=== PATIENT | female | born 1985 | race Hispanic/Latino ===

== ENCOUNTER 2019-08-31 06:23 | Emergency (ER) | payer OTHER, SELFPAY ==
[2019-08-31 06:28] VITALS: BP 148/97; PULSE 100; RESP 20; TEMP 36.9; O2SAT 98
[2019-08-31 06:36] VITALS: BP 158/99; PULSE 101; RESP 20; TEMP 36.9; O2SAT 96
[2019-08-31 06:58] VITALS: RESP 18; O2SAT 98
--- NOTE | 2019-08-31 07:07 | PC.NURSE ---
Hand off report given to KILLIAN Bob.
--- NOTE | 2019-08-31 07:21 | ED.GENADULT ---
HPI - General Adult General Chief complaint: Recheck/Abnormal Lab/Rx Stated complaint: Dizzy, low blood count Time Seen by Provider: 08/31/19 07:02 Source: patient Mode of arrival: ambulatory Limitations: no limitations History of Present Illness HPI narrative: This patient is a 33 year old female who presents with c/o dizziness with vomiting. Patient report this morning she started feeling dizzy as if she was going to pass out, and then she had 2 episodes of vomiting. These symptoms make patient believe that she may be anemic. She still has dizziness with standing. She denies hematemesis, epistaxis or bloody stools. She does note that her stools are dark but she takes iron. She has abdominal pain but this is chronic per patient. She denies fever or chills as well. Onset (ago): day(s) Related Data Home Medications Medication Instructions Recorded Confirmed albuterol sulfate 2 puff INHALATION QID PRN 08/31/19 baclofen 10 mg PO TID PRN 08/31/19 beclomethasone dipropionate [Qvar 1 inh INHALATION Q12H 08/31/19 RediHaler] bupropion HCl [Wellbutrin SR] 150 mg PO DAILY 08/31/19 dicyclomine 20 mg PO TID 08/31/19 diphenhydramine HCl [Benadryl 50 mg PO HS 08/31/19 Allergy] ferrous sulfate 325 mg PO DAILY 08/31/19 gabapentin 600 mg PO TID 08/31/19 ibuprofen 800 mg PO TID 08/31/19 insulin glargine [Basaglar KwikPen 65 unit SUBCUT BID 08/31/19 U-100 Insulin] loratadine 10 mg PO DAILY 08/31/19 metformin 1,000 mg PO BID 08/31/19 montelukast [Singulair] 10 mg PO DAILY 08/31/19 omeprazole 20 mg PO BID 08/31/19 sertraline 200 mg PO DAILY 08/31/19 simvastatin 20 mg PO DAILY 08/31/19 trazodone 50 mg PO HS 08/31/19 Allergies Allergy/AdvReac Type Severity Reaction Status Date / Time clindamycin Allergy Unknown Unknown Verified 08/31/19 07:34 latex Allergy Unknown Unknown Verified 08/31/19 07:34 paroxetine Allergy Unknown Unknown Verified 08/31/19 07:34 Review of Systems Review of Systems: All systems reviewed & are unremarkable except as noted in HPI and below Constitutional: Constitutional: Denies chills and Denies fever(s) ENT: Reports dizziness and Denies epistaxis Cardiovascular: Cardiovascular: Denies chest pain Respiratory: Respiratory: Denies cough, Reports dyspnea and Denies wheezing Gastrointestinal: Gastrointestinal: Reports abdominal pain (chronic), Reports nausea and Reports vomiting Genitourinary: Genitourinary: Denies nocturia and Denies vaginal discharge Neurologic: Reports dizziness PMFSH Past Medical History Medical History (Updated 08/31/19 @ 11:02 by Cheryl Eden MD) Diabetes mellitus Hyperlipidemia Surgical History Surgical History (Updated 08/31/19 @ 07:24 by Cheryl Eden MD) History of cholecystectomy Hx of appendectomy Family History Family History (Updated 04/13/16 @ 14:57 by DOCTOR UNKNOWN) Other Diabetes mellitus Hypertension Social History Social History Smoking status: Former smoker Smoking end date: 03/21/12 Alcohol intake: never Gender identity (if verbalized by the patient): Female Exam Narrative: Exam Narrative: GENERAL: Well-appearing, well-nourished, and in no acute distress. HEAD: Normocephalic, atraumatic EYES: PERRLA and EOMI, conjunctiva clear without discharge THROAT:Mucous membranes moist, Oropharynx normal without erythema, exudate, peritonsillar swelling or fluctuance NECK: Supple, without lymphadenopathy or mass RESPIRATORY: No respiratory distress, Airway patent, Respirations non-labored, Clear to auscultation without rales, rhonchi or wheeze HEART: Regular rate and rhythm. No murmur heard. Normal peripheral pulses. ABDOMEN: Soft,Diffuse tenderness, nondistended, normal active bowel sounds. No masses. No rebound or guarding, No organomegaly. EXTREMITIES: No edema, normal strength with full range of motion. SKIN: Warm, dry, normal color without rash NEURO: Alert and oriented x3. CN 2-12 grossly
[2019-08-31] MEDS: PANTOPRAZOLE SODIUM IV 40 MG VIAL IV PUSH (07:25)
[2019-08-31] MEDS: ONDANSETRON INJ 4 MG/2 ML VIAL IV PUSH ×2 (07:25→09:06)
[2019-08-31 07:28] VITALS: BP 141/96; PULSE 96
[2019-08-31 07:29] VITALS: BP 139/90; PULSE 97
[2019-08-31 07:30] VITALS: BP 129/87; PULSE 103
[2019-08-31 07:34] LABS: Basophils Percent Auto 0.3 % (0.2-1.2); Eosinophils Absolute Auto 0.2 K/mm3 (0-0.3); Eosinophils Percent Auto 1.8 % (0-4.4); Hematocrit 40.8 % (37.0-47.0); Hemoglobin 12.9 g/dL (12.0-15.0); Immature Granulocyte Absolute 0.03 K/mm3 (0.00-0.031); Immature Granulocyte Percent A 0.3 % (0-0.5); Lymphocytes Absolute Auto 2.01 K/mm3 (0.9-3.2); Lymphocytes Percent Auto 22.3 % (18.3-44.2); Mean Corpuscular HGB Conc 31.6 g/dl (32-36); Mean Corpuscular Hemoglobin 30.3 pg (26-34); Mean Corpuscular Volume 95.8 fl (80-100); Mean Platelet Volume 10.8 fl (7.4-10.4); Monocytes Absolute Auto 0.9 K/mm3 (0.1-0.6); Monocytes Percent Auto 9.7 % (2.6-8.5); Neutrophils Absolute Auto 5.9 K/mm3 (1.3-6.7); Neutrophils Percent Auto 65.6 % (45.5-73.1); Platelet Count Result 216 k/mm3 (150-375); Red Blood Count 4.26 M/mm3 (4.2-5.4); Red Cell Distribution Width 13.5 % (11.5-14.5)
[2019-08-31 07:41] LABS: Glucose Point of Care 88 (65-105)
[2019-08-31 07:41] LABS: Add Urine Microscopic? YES; Appearance Urine Clear (Clear); Bacteria Urine Trace /hpf; Bilirubin Urine Negative (Negative); Blood Urine 1+ (Negative); Color Urine Yellow (Yellow); Glucose Urine UA 1+ mg/dL (Negative); Ketones Urine Negative (Negative); Leukocyte Esterase Ur Negative LEU/UL (Negative); Mucus Urine Few /lpf; Nitrate Urine Negative (Negative); Protein Urine 1+ mg/dL (Negative); RBC Urine 0-2 /hpf (0-2); Specific Grav Ur 1.017 (1.001-1.035); Squamous Epithelial Cell Urine Many /hpf (Few); WBC Urine 0-3 /hpf
[2019-08-31 07:45] LABS: Alanine Aminotransferase 47 U/L (4-35); Albumin Level 4.1 g/dL (3.5-5.1); Alkaline Phosphatase 162 U/L (38-126); Aspartate Amino Transferase 110 U/L (14-36); Blood Urea Nitrogen 12 mg/dL (7-17); Calcium 9.1 mg/dL (8.4-10.2); Carbon Dioxide 25 mmol/L (22-30); Chloride 108 mmol/L (98-107); Estimated Glomerular Filt Rate > 60; Glucose 112 mg/dL (65-105); Lipase 49 U/L (23-300); Magnesium 1.7 mg/dL (1.6-2.3); Phosphorus 4.3 mg/dL (2.5-4.5); Potassium 3.8 mmol/L (3.4-5.0); Sodium 141 mmol/L (137-145)
[2019-08-31 08:51] LABS: Beta-Hydroxybutyrate/Acetoacetate 0.06 mmol/L (0.02-0.27)
[2019-08-31] MEDS: LACTATED RINGERS 1,000 ML 999 ML IV CONT (09:06)
== END 2019-08-31 11:30 | disposition home or self-care (01) ==
PROVIDERS: Emergency Provider General Practice
DX: R11.2 Nausea with vomiting, unspecified (principal); E11.9 Type 2 diabetes mellitus without complications; E78.5 Hyperlipidemia, unspecified; Z87.891 Personal history of nicotine dependence; Z79.4 Long term (current) use of insulin
CPT/HCPCS: 36415; 80053; 81001; 81025; 82010; 82948; 83690; 83735; 84100; 85025; 96361; 96374; 96375; 99284; C9113; J2405; J7120

== ENCOUNTER 2019-12-03 14:26 | Emergency (ER) | payer OTHER, SELFPAY ==
[2019-12-03 14:35] VITALS: BP 132/87; PULSE 108; RESP 20; TEMP 36.9; O2SAT 100
[2019-12-03 14:55] LABS: Basophils Percent Auto 0.3 % (0.2-1.2); Eosinophils Absolute Auto 0.2 K/mm3 (0-0.3); Eosinophils Percent Auto 1.5 % (0-4.4); Hematocrit 37.8 % (37.0-47.0); Hemoglobin 12.3 g/dL (12.0-15.0); Immature Granulocyte Absolute 0.03 K/mm3 (0.00-0.031); Immature Granulocyte Percent A 0.3 % (0-0.5); Lymphocytes Percent Auto 27.7 % (18.3-44.2); Mean Corpuscular HGB Conc 32.5 g/dl (32-36); Mean Corpuscular Hemoglobin 30.1 pg (26-34); Mean Corpuscular Volume 92.6 fl (80-100); Monocytes Absolute Auto 0.6 K/mm3 (0.1-0.6); Neutrophils Absolute Auto 6.5 K/mm3 (1.3-6.7); Neutrophils Percent Auto 64.2 % (45.5-73.1); Platelet Count Result 111 k/mm3 (150-375); Red Blood Count 4.08 M/mm3 (4.2-5.4); Red Cell Distribution Width 12.7 % (11.5-14.5); White Blood Count 10.1 K/mm3 (4.5-10.0)
[2019-12-03 15:13] LABS: Potassium 4.3 mmol/L (3.4-5.0)
[2019-12-03 15:18] LABS: Alanine Aminotransferase 31 U/L (4-35); Albumin Level 3.5 g/dL (3.5-5.1); Alkaline Phosphatase 154 U/L (38-126); Anion Gap 8 mmol/L (8-16); Aspartate Amino Transferase 64 U/L (14-36); Bilirubin,Total 1.8 mg/dL (0.2-1.3); Blood Urea Nitrogen 9 mg/dL (7-17); Calcium 8.9 mg/dL (8.4-10.2); Carbon Dioxide 24 mmol/L (22-30); Chloride 103 mmol/L (98-107); Estimated CRCL calculation 113 ml/min; Estimated Glomerular Filt Rate > 60; Glucose 448 mg/dL (65-105); Lipase 41 U/L (23-300); Sodium 135 mmol/L (137-145)
== END 2019-12-03 15:00 | disposition left against medical advice (07) ==
PROVIDERS: Emergency Provider Emergency Medicine
DX: O26.899 Other specified pregnancy related conditions, unspecified trimester (principal); R10.9 Unspecified abdominal pain; Z3A.00 Weeks of gestation of pregnancy not specified
CPT/HCPCS: 36415; 80053; 83690; 85025; 99199

== ENCOUNTER 2019-12-08 13:08 | Emergency (ER) | payer OTHER, SELFPAY ==
--- NOTE | ~2019-12-08 | CT_ITS ---
EXAMINATION: CT abdomen pelvis wo con DATE: 12/08/2019 14:49 INDICATION: Right flank pain. TECHNIQUE: Computed tomography (CT) of the abdomen and pelvis was performed without intravenous contr ast. Automated exposure control and iterative reconstruction technique were employed. The dose-length product was 1007.56 mGy-cm. COMPARISON: CT abdomen and pelvis 12/08/2017 FINDINGS: The visualized portions of the lung bases demonstrate minimal atelectasis. No pleural effus ion. The heart size is normal. No pericardial effusion. The liver demonstrates surface nodularity, co nsistent with cirrhosis. There are changes of cholecystectomy. There is mild splenomegaly measuring 1 5.8 cm. There is a paraumbilical portacaval shunt. The pancreas, adrenal glands, and kidneys are norm al. There is no urolithiasis. There is a 4.2 cm cyst in right adnexa, likely a follicular cyst. There are no dilated loops of bowel. There are changes of appendectomy. There is mild periportal lymphaden opathy, likely reactive. There is trace ascites. There is mild thoracolumbar spondylosis. IMPRESSION: 1. Cirrhosis of the liver with portal venous hypertension. 2. Mild periportal lymphadenopathy, likely reactive. Reviewed, dictated and finalized at location A.
[2019-12-08 13:09] VITALS: BP 152/87; PULSE 99; RESP 20; TEMP 36.7; O2SAT 98
--- NOTE | 2019-12-08 13:32 | ED.ABDPAIN ---
HPI - Abdominal Pain General Chief Complaint: Abdominal Pain Stated Complaint: Right flank pain Time Seen by Provider: 12/08/19 13:18 Source: patient Mode of arrival: ambulatory Limitations: no limitations History of Present Illness HPI narrative: Patient is a 34-year-old female who presents with abdominal discomfort localized to the right side of the abdomen that has been present for the last week patient at this time resting comfortably in the room in no distress upon arrival patient denies similar occurrence but does note history of cirrhosis has follow-up with hepatology at the middle of this month patient denies fever chills nausea vomiting notes that she has had some loose stools Related Data Home Medications Medication Instructions Recorded Confirmed albuterol sulfate 2 puff INHALATION QID PRN 08/31/19 baclofen 10 mg PO TID PRN 08/31/19 beclomethasone dipropionate [Qvar 1 inh INHALATION Q12H 08/31/19 RediHaler] bupropion HCl [Wellbutrin SR] 150 mg PO DAILY 08/31/19 dicyclomine 20 mg PO TID 08/31/19 diphenhydramine HCl [Benadryl 50 mg PO HS 08/31/19 Allergy] ferrous sulfate 325 mg PO DAILY 08/31/19 gabapentin 600 mg PO TID 08/31/19 ibuprofen 800 mg PO TID 08/31/19 insulin glargine [Basaglar KwikPen 65 unit SUBCUT BID 08/31/19 U-100 Insulin] loratadine 10 mg PO DAILY 08/31/19 metformin 1,000 mg PO BID 08/31/19 montelukast [Singulair] 10 mg PO DAILY 08/31/19 omeprazole 20 mg PO BID 08/31/19 sertraline 200 mg PO DAILY 08/31/19 simvastatin 20 mg PO DAILY 08/31/19 trazodone 50 mg PO HS 08/31/19 Allergies Allergy/AdvReac Type Severity Reaction Status Date / Time clindamycin Allergy Unknown Unknown Verified 08/31/19 07:34 latex Allergy Unknown Unknown Verified 08/31/19 07:34 paroxetine Allergy Unknown Unknown Verified 08/31/19 07:34 Review of Systems Review of Systems: All systems reviewed & are unremarkable except as noted in HPI and below PMFSH Past Medical History Medical History (Updated 12/08/19 @ 15:33 by Kwesi Shea PA-C) Cirrhosis Diabetes mellitus Fatty liver Hyperlipidemia Surgical History Surgical History History of cholecystectomy Hx of appendectomy Family History Family History (Updated 04/13/16 @ 14:57 by DOCTOR UNKNOWN) Other Diabetes mellitus Hypertension Social History Social History Smoking status: Former smoker Smoking end date: 03/21/12 Alcohol intake: never Gender identity (if verbalized by the patient): Female Exam Narrative: Exam Narrative: GENERAL: Well-appearing, well-nourished, and in no acute distress. HEAD: Normocephalic, atraumatic. EYES: PERRLA and EOMI. ENT: Nares clear, no rhinorrhea or epistaxis. Mucous membranes moist. CHEST: Clear to auscultation. No respiratory distress. No wheezes rales or rhonchi HEART: Regular rate and rhythm. No murmur heard. Normal peripheral pulses. ABDOMEN: Soft, lower abdominal tenderness without rebound or guarding, distended, normal active bowel sounds. EXTREMITIES: Normal range of motion. No edema. SKIN: Warm, dry, no rash. NEURO: No focal deficits. Alert and oriented x3. Cranial nerves II through XII grossly intact PSYCH: Normal mood and affect. Course Course Emergency Course: Patient in the room in no distress aware of case findings treatment plan and diagnosis agreeing to follow-up as directed or to return if symptoms worsen or concerns patient will be treated for urinary tract infection following up with primary care no other high risk changes in the blood work or imaging felt appropriate for outpatient reevaluation was given fluids and antibiotics Vital Signs Vital signs: Vital Signs Temperature 98.1 F 12/08/19 13:09 Pulse Rate 99 12/08/19 13:09 Respiratory Rate 20 12/08/19 13:09 Blood Pressure 152/87 H 12/08/19 13:09 Pulse Oximetry 98 12/08/19 13:
[2019-12-08] MEDS: SODIUM CHLORIDE 0.9% IV 500 ML 999 ML IV CONT (13:48)
[2019-12-08] MEDS: FAMOTIDINE 20 MG/2 ML VIAL IV PUSH (13:49)
[2019-12-08 14:03] LABS: Basophils Percent Auto 0.4 % (0.2-1.2); Eosinophils Absolute Auto 0.1 K/mm3 (0-0.3); Eosinophils Percent Auto 1.4 % (0-4.4); Hematocrit 37.6 % (37.0-47.0); Hemoglobin 12.6 g/dL (12.0-15.0); Immature Granulocyte Absolute 0.03 K/mm3 (0.00-0.031); Immature Granulocyte Percent A 0.3 % (0-0.5); Immature Platelet Fraction Pct 3.4 % (0.9-11.2); Lymphocytes Absolute Auto 2.27 K/mm3 (0.9-3.2); Lymphocytes Percent Auto 23.3 % (18.3-44.2); Mean Corpuscular HGB Conc 33.5 g/dl (32-36); Mean Corpuscular Hemoglobin 31.3 pg (26-34); Mean Corpuscular Volume 93.3 fl (80-100); Mean Platelet Volume 11.3 fl (7.4-10.4); Monocytes Absolute Auto 0.6 K/mm3 (0.1-0.6); Monocytes Percent Auto 6.1 % (2.6-8.5); Neutrophils Absolute Auto 6.7 K/mm3 (1.3-6.7); Neutrophils Percent Auto 68.5 % (45.5-73.1); Platelet Count Result 110 k/mm3 (150-375); Red Blood Count 4.03 M/mm3 (4.2-5.4); Red Cell Distribution Width 12.9 % (11.5-14.5); White Blood Count 9.7 K/mm3 (4.5-10.0)
[2019-12-08 14:07] LABS: Add Urine Microscopic? YES; Appearance Urine Cloudy (Clear); Bacteria Urine 4+ /hpf; Bilirubin Urine 1+ (Negative); Blood Urine 2+ (Negative); Color Urine Amber (Yellow); Glucose Urine UA 1+ mg/dL (Negative); Ketones Urine Negative (Negative); Leukocyte Esterase Ur Negative LEU/UL (Negative); Mucus Urine Heavy /lpf; Nitrate Urine Negative (Negative); Protein Urine 2+ mg/dL (Negative); Squamous Epithelial Cell Urine Many /hpf (Few); WBC Urine 21-30 /hpf
[2019-12-08 14:08] LABS: Specific Grav Ur 1.032 (1.001-1.035)
[2019-12-08 14:11] LABS: Alanine Aminotransferase 26 U/L (4-35); Albumin Level 3.5 g/dL (3.5-5.1); Alkaline Phosphatase 127 U/L (38-126); Anion Gap 5 mmol/L (8-16); Aspartate Amino Transferase 58 U/L (14-36); Bilirubin,Total 1.3 mg/dL (0.2-1.3); Blood Urea Nitrogen 11 mg/dL (7-17); Calcium 8.8 mg/dL (8.4-10.2); Carbon Dioxide 26 mmol/L (22-30); Chloride 106 mmol/L (98-107); Estimated CRCL calculation 145 ml/min; Estimated Glomerular Filt Rate > 60; Glucose 196 mg/dL (65-105); Lipase 29 U/L (23-300); Sodium 137 mmol/L (137-145)
[2019-12-08] MEDS: HYOSCYAMINE SULFATE 0.125 MG TABLET PO (14:26)
[2019-12-08 15:44] VITALS: BP 128/80; PULSE 80; RESP 18; TEMP 36.6; O2SAT 99
== END 2019-12-08 15:48 | disposition home or self-care (01) ==
PROVIDERS: Emergency Medicine Emergency Medical Services; Emergency Provider Emergency Medicine
DX: N39.0 Urinary tract infection, site not specified (principal); K74.60 Unspecified cirrhosis of liver; K76.6 Portal hypertension; E11.9 Type 2 diabetes mellitus without complications; E78.5 Hyperlipidemia, unspecified; Z87.891 Personal history of nicotine dependence; Z79.4 Long term (current) use of insulin
CPT/HCPCS: 36415; 74176; 80053; 81001; 81025; 83690; 85025; 85055; 87086; 87088; 96361; 96365; 96375; 99284; A9270; J0696; J7040

== ENCOUNTER 2019-12-31 15:38 | Observation (INO) | payer OTHER, SELFPAY ==
--- NOTE | ~2019-12-31 | CT_ITS ---
EXAMINATION: CT abdomen pelvis w con EXAM DATE: 12/31/2019 17:15 INDICATION: Right-sided abdominal pain. TECHNIQUE: Spiral CT of the abdomen and pelvis was performed following intravenous injection of 100 m L Omnipaque 350. Axial, coronal and sagittal images were reviewed. The dose-length product (DLP) fo r this examination was 1645.19 mGy-cm. The exposure was tailored according to patient size (auto mA exposure control), and iterative reconstruction (ASIR) was used as additional dose reduction techniqu e. Comparison is made to prior examination from 12/08/2019. FINDINGS: There is retroperitoneal and mesenteric nonspecific fat stranding, more pronounced than on previous examination. Possible acute pancreatitis. Recanalized umbilical vein. There is cirrhosis an d portal hypertension with splenomegaly, spleen measuring 17 cm in diameter. Small amount of perisple ivania and perihepatic ascites. Small amount of free pelvic fluid. There are cholecystectomy clips. Portal and splenic veins are patent. Kidneys enhance symmetrically . There is no hydronephrosis. Uterus is anteverted. Again there is a 4 cm right adnexal cyst. The b ladder is unremarkable. There is no retroperitoneal or pelvic lymphadenopathy. The appendix is not positively visualized. There is no pericecal inflammatory change to suggest appe ndicitis. The stomach and small bowel are unremarkable. There is expected amount of colonic stool. No free intraperitoneal gas. The heart is normal in size. There are no pericardial or pleural ef fusions. The lung bases are unremarkable. There are no osteoblastic or osteolytic lesions identifie d. IMPRESSION: 1. Development of retroperitoneal and generalized mesenteric fat stranding, small amount of ascites. Recommend checking amylase/lipase levels for possible acute pancreatitis. 2. Cirrhosis, portal hypertension, splenomegaly. Reviewed, dictated and finalized at location A. IMPRESSION: 1. Development of retroperitoneal and generalized mesenteric fat stranding, sm all amount of ascites. Recommend checking amylase/lipase levels for possible ac [place] pancreatitis. 2. Cirrhosis, portal hypertension, splenomegaly.
[2019-12-31 15:44] VITALS: BP 159/119; PULSE 95; RESP 22; TEMP 36.9; O2SAT 95
[2019-12-31 16:00] LABS: Basophils Percent Auto 0.3 % (0.2-1.2); Eosinophils Absolute Auto 0.2 K/mm3 (0-0.3); Eosinophils Percent Auto 2.2 % (0-4.4); Hematocrit 31.3 % (37.0-47.0); Hemoglobin 10.1 g/dL (12.0-15.0); Immature Granulocyte Absolute 0.02 K/mm3 (0.00-0.031); Immature Granulocyte Percent A 0.2 % (0-0.5); Lymphocytes Absolute Auto 2.84 K/mm3 (0.9-3.2); Lymphocytes Percent Auto 27.5 % (18.3-44.2); Mean Corpuscular HGB Conc 32.3 g/dl (32-36); Mean Corpuscular Hemoglobin 31.5 pg (26-34); Mean Corpuscular Volume 97.5 fl (80-100); Mean Platelet Volume 10.5 fl (7.4-10.4); Monocytes Absolute Auto 0.8 K/mm3 (0.1-0.6); Monocytes Percent Auto 7.6 % (2.6-8.5); Neutrophils Absolute Auto 6.4 K/mm3 (1.3-6.7); Neutrophils Percent Auto 62.2 % (45.5-73.1); Platelet Count Result 120 k/mm3 (150-375); Red Blood Count 3.21 M/mm3 (4.2-5.4); Red Cell Distribution Width 13.8 % (11.5-14.5); White Blood Count 10.3 K/mm3 (4.5-10.0)
[2019-12-31 16:12] LABS: Alanine Aminotransferase 20 U/L (4-35); Albumin Level 3.4 g/dL (3.5-5.1); Alkaline Phosphatase 142 U/L (38-126); Anion Gap 9 mmol/L (8-16); Aspartate Amino Transferase 55 U/L (14-36); Bilirubin,Total 0.9 mg/dL (0.2-1.3); Blood Urea Nitrogen 15 mg/dL (7-17); Calcium 8.2 mg/dL (8.4-10.2); Carbon Dioxide 24 mmol/L (22-30); Chloride 107 mmol/L (98-107); Estimated CRCL calculation 124 ml/min; Estimated Glomerular Filt Rate > 60; Glucose 186 mg/dL (65-105); Potassium 4.3 mmol/L (3.4-5.0); Sodium 140 mmol/L (137-145)
--- NOTE | 2019-12-31 16:18 | PC.NURSE ---
asked pt for urine sample, she stated she was unable to urinate at this time
[2019-12-31 16:20] VITALS: BP 142/78; PULSE 80; RESP 18; O2SAT 99
--- NOTE | 2019-12-31 16:32 | ED.GENADULT ---
HPI - General Adult General Chief complaint: Abdominal Pain Stated complaint: ruq abd pain, hx liver dz Time Seen by Provider: 12/31/19 15:48 Source: patient History of Present Illness HPI narrative: Patient is a 34 y/o female complaining of right sided pain since yesterday. She describes her pain as sharp and rates it as 10/10. Her pain radiates to right upper and lower abdomen. There is no alleviating or exacerbating factor. She denies injury. She also has some vomiting and diarrhea. Related Data Home Medications Medication Instructions Recorded Confirmed albuterol sulfate 2 puff INHALATION QID PRN 08/31/19 baclofen 10 mg PO TID PRN 08/31/19 beclomethasone dipropionate [Qvar 1 inh INHALATION Q12H 08/31/19 RediHaler] bupropion HCl [Wellbutrin SR] 150 mg PO DAILY 08/31/19 dicyclomine 20 mg PO TID 08/31/19 diphenhydramine HCl [Benadryl 50 mg PO HS 08/31/19 Allergy] ferrous sulfate 325 mg PO DAILY 08/31/19 gabapentin 600 mg PO TID 08/31/19 ibuprofen 800 mg PO TID 08/31/19 insulin glargine [Basaglar KwikPen 65 unit SUBCUT BID 08/31/19 U-100 Insulin] loratadine 10 mg PO DAILY 08/31/19 metformin 1,000 mg PO BID 08/31/19 montelukast [Singulair] 10 mg PO DAILY 08/31/19 omeprazole 20 mg PO BID 08/31/19 sertraline 200 mg PO DAILY 08/31/19 simvastatin 20 mg PO DAILY 08/31/19 trazodone 50 mg PO HS 08/31/19 Humalog Pen SUBCUT TID 12/31/19 Januvia 12/31/19 Allergies Allergy/AdvReac Type Severity Reaction Status Date / Time clindamycin Allergy Unknown Unknown Verified 12/31/19 15:49 latex Allergy Unknown Unknown Verified 12/31/19 15:49 paroxetine Allergy Unknown Unknown Verified 12/31/19 15:49 morphine Allergy Itching Verified 12/31/19 15:49 Review of Systems Constitutional: Constitutional: Denies chills, Denies fever(s), Denies headache(s) and Denies weakness Eyes: Eyes: Denies blurry vision ENT: Denies headache(s) and Denies neck pain Cardiovascular: Cardiovascular: Denies chest pain and Denies dyspnea Respiratory: Respiratory: Denies cough and Denies dyspnea Gastrointestinal: Gastrointestinal: Reports abdominal pain, Reports diarrhea, Reports nausea and Reports vomiting Genitourinary: Genitourinary: Denies hematuria and Denies dysuria Musculoskeletal: Musculoskeletal: Denies back pain and Denies neck pain Neurologic: Denies headache(s) and Denies weakness [facility] Past Medical History Medical History (Updated 12/31/19 @ 21:04 by Ana Mcgovern MD) Cirrhosis Diabetes mellitus Fatty liver Hyperlipidemia Surgical History Surgical History (Updated 12/31/19 @ 20:44 by Debby Gonzalez, RN) History of cholecystectomy Hx of appendectomy Family History Family History Father Hypertension Sibling Hypertension Thyroid disorder Sibling Diabetes mellitus Mother Diabetes mellitus Hx of heart artery stent S/P triple vessel bypass Thyroid disorder Social History Social History Smoking status: Former smoker Tobacco type: cigarettes Smoking end date: 03/21/11 Alcohol intake: former Substance use: former Substance use type: marijuana, crack/cocaine and methamphetamine Last use: 2011 Living arrangements: with family Occupation/Education: unemployed Gender identity (if verbalized by the patient): Female Spiritual care concerns: No Agree to blood products: Yes Exam Const: General: no acute distress and well developed Orientation/consciousness: oriented to person, oriented to place, oriented to time and patient oriented x3 HENMT: Head: normocephalic Ears: external ears normal General nose exam: Normal external nose present Eyes: General: appearance normal, both eyes and all related structures Conjunctivae: conjunctivae normal Neck: Neck: normal visual inspection and full ROM Chest: Chest palpation & inspection: normal inspection of the
[2019-12-31] MEDS: KETOROLAC 30 MG/ML VIAL (*BKC) IV PUSH (16:58)
[2019-12-31] MEDS: SODIUM CHLORIDE 0.9% IV 1,000 ML 999 ML IV CONT (16:59)
[2019-12-31] MEDS: METOCLOPRAMIDE HCL INJ 10 MG/2 ML VIAL IV PUSH (16:59)
[2019-12-31 17:16] LABS: Add Urine Microscopic? YES; Appearance Urine Clear (Clear); Bilirubin Urine Negative (Negative); Blood Urine Negative (Negative); Color Urine Yellow (Yellow); Glucose Urine UA Negative (Negative); Ketones Urine Negative (Negative); Leukocyte Esterase Ur Negative LEU/UL (Negative); Mucus Urine Few /lpf; Nitrate Urine Negative (Negative); Protein Urine Negative (Negative); RBC Urine 0-2 /hpf (0-2); Specific Grav Ur 1.016 (1.001-1.035); Squamous Epithelial Cell Urine Few /hpf (Few); WBC Urine 0-3 /hpf
[2019-12-31 18:05] LABS: Amphetamine Screen Urine Negative (Negative); Barbiturate Screen Urine Negative (Negative); Benzodiazepines Screen Urine Negative (Negative); Cannabinoid Screen Urine Negative (Negative); Cocaine Screen Urine Negative (Negative); Methadone Screen Urine Negative (Negative); Opiate Screen Urine Negative (Negative); Phencyclidine Screen Urine Negative (Negative)
[2019-12-31 18:05] LABS: Lipase 23 U/L (23-300)
[2019-12-31 18:48] VITALS: BP 119/80; PULSE 87; RESP 18; O2SAT 99
[2019-12-31] MEDS: fentaNYL CITRATE INJ (*CRX) 100 MCG/2 ML VIAL 50 MCG IV PUSH (18:48)
--- NOTE | 2019-12-31 19:30 | ADMGEN ---
This patient, Shruti Velazquez, was admitted to 3 Medical Room 348-01. Patient/family oriented to hospital policies and general routines including ID bracelet, bed and alarms, visiting hours, pain management, procedures, bathroom and other care routines, personal items, smoking policy, room service/diet, and visiting hours. Valuables list has been completed. Information on how to activate the Rapid Response Team has been discussed. Patient/Family are encouraged to report perceived risks to care and to ask questions if they do not understand what they are told or what they should do.
[2019-12-31 20:08] VITALS: BP 145/78; PULSE 84; RESP 16; TEMP 36.5; O2SAT 100
[2019-12-31 20:11] VITALS: BMI 41.1
[2019-12-31 20:14] VITALS: BP 145/78; PULSE 86; RESP 16; TEMP 36.2; O2SAT 99
[2019-12-31] MEDS: HYDROmorphone HCL INJ (*CRX) 1 MG/ML SYR 0.5 MG IV PUSH (23:12)
[2019-12-31 23:29] LABS: Glucose Point of Care 197 (65-105)
--- NOTE | 2019-12-31 23:41 | PM.IMHP ---
H&P: HPI History of Present Illness Date/Time: 12/31/19 23:41 Chief complaint: abdominal pain, right back pain Narrative: Shruti Velazquez is a 34 year old female who has a history of cirrhosis of the liver. Due to fatty liver. Non alcoholic. Patient was complaining of right-sided pain since yesterday. Her liver specialist is at [facility]. However she states she does and go back to them and most likely will find somebody at [place]. Patient denied any hematemesis or hematochezia. No melanotic stools. CT of the abdomen was read as development of retroperitoneal generalized mesenteric fat stranding, small amount of ascites. Recommend checking amylase lipase levels for possible acute pancreatitis. Cirrhosis, portal hypertension, splenomegaly. Patient just and 0.1 and 31.3 platelets 120. Glucose 186. Alkaline phosphatase 142. Lipase 23. Urine was negative urine tox screen was negative. Patient was given iv Toradol, Reglan, and IV fluids and fentanyl. Patient received pain medicine when I was interviewing her and she was falling asleep. Pain without any rule etiology. Patient admitted observation on date of service 12/31/2019 Review of Systems Review of Systems: All systems reviewed & are unremarkable except as noted in HPI and below Constitutional: Constitutional: Reports as per HPI and Reports no additional constitutional complaints Eyes: Eyes: Reports as per HPI and Reports no additional eye complaints ENT: Reports system reviewed and no additional complaints, except as documented and Reports Normal hearing present Cardiovascular: Cardiovascular: Reports no additional cardiovascular complaints Respiratory: Respiratory: Reports no additional respiratory complaints and Reports no additional respiratory complaints Gastrointestinal: Gastrointestinal: Reports as per HPI and Reports no additional gastrointestinal complaints Musculoskeletal: Musculoskeletal: Reports no additional musculoskeletal complaints Integumentary/Breasts: Skin/Breast: Reports system reviewed and no additional complaints, except as docu and Reports as per HPI Neurologic: Reports system reviewed and no additional complaints, except as documented, Reports as per HPI and Reports Normal hearing present Psychiatric: Psychiatric: Reports no additional psychiatric complaints and Reports as per HPI Endocrine: Endocrine: Reports no additional endocrine complaints Hematologic/Lymphatic: Hematologic/Lymphatic: Reports no additional hematologic/lymphatic complaints Allergic/Immunologic: Allergic/Immunologic: Reports no additional allergic/immunologic complaints [facility] Past Medical History Medical History (Updated 12/31/19 @ 23:51 by Iesha Serra NP) Asthma Bronchitis Cirrhosis Diabetes mellitus Fatty liver Hyperlipidemia Rheumatoid arthritis Surgical History Surgical History (Updated 12/31/19 @ 23:51 by Iesha Serra NP) History of cholecystectomy History of corneal transplant Left eye, 2013 Hx of appendectomy Family History Family History Father Hypertension Sibling Hypertension Thyroid disorder Sibling Diabetes mellitus Mother Diabetes mellitus Hx of heart artery stent S/P triple vessel bypass Thyroid disorder Social History Social History (Updated 12/31/19 @ 23:55 by Iesha Serra NP) Social History: The patient lives with her fiance. She has never been . She is not working. She does not receive any disability. She has no children. She does not have anybody does need to be her durable power civil rights attorney. The patient stated that she is a full code and that we can resuscitate her twice but then stop after that. The patient no longer smokes. She denies any alcohol marijuana or illicit drug use. She stop smoking in 2011. Smoking status: Former smoker Tobacco type: cigarettes Smoking end date: 03/21/11 Alcohol intake: former Sub
[2020-01-01] MEDS: HYDROmorphone HCL INJ (*CRX) 1 MG/ML SYR 0.5 MG IV PUSH ×4 (02:30→11:41)
[2020-01-01 02:31] VITALS: BP 147/85; PULSE 79; RESP 14; TEMP 36.7; O2SAT 98
[2020-01-01 04:29] VITALS: BP 135/80; PULSE 88; RESP 16; TEMP 37.2; O2SAT 97
[2020-01-01 05:43] LABS: Glucose Point of Care 100 (65-105)
[2020-01-01] MEDS: FAMOTIDINE 20 MG/2 ML VIAL IV PUSH ×2 (08:34→22:15)
[2020-01-01] MEDS: ALBUTEROL SULFATE (*SP) AEROSOL 1 PUFF 2 PUFF INHALATION ×2 (09:01→19:54)
[2020-01-01 11:53] LABS: Glucose Point of Care 99 (65-105)
[2020-01-01 14:00] VITALS: BP 125/73; PULSE 82; RESP 18; TEMP 36.1; O2SAT 99
--- NOTE | 2020-01-01 14:19 | PC.NURSE ---
Pt up to restroom. Patient immediately began undressing and getting into the shower. Aide stood in bathroom with patient while she showered. Pt able to clean self with no problems and was singing.
--- NOTE | 2020-01-01 15:45 | PM.IMPN ---
Progress Note: A&P Assessment and Plan (1) Abdominal pain: Qualifiers: Abdominal location: right upper quadrant Qualified Code(s): R10.11 - Right upper quadrant pain Code(s): R10.9 - Unspecified abdominal pain Status: Acute Assessment and Plan: ------unclear etiology at this time, EGD planned for tomorrow. On exam I did not elicit any pain but she had pain with getting in and out of bed at her back right flank. This could be a muscular pain that she is feeling. She says this pain is not associated with eating or drinking. She threw up blood a couple days ago but nothing since. Await EGD (2) Diabetes mellitus: Code(s): E11.9 - Type 2 diabetes mellitus without complications Status: Chronic Assessment and Plan: ------last glucose 99. Continue sliding scale insulin (3) Cirrhosis: Code(s): K74.60 - Unspecified cirrhosis of liver Status: Chronic Assessment and Plan: ------Patient's GI specialist is at [facility] however she was be switched to [place]. She is okay using the GI specialist here. (4) Asthma: Code(s): J45.909 - Unspecified asthma, uncomplicated Status: Chronic Assessment and Plan: ----Continue QVAR and albuterol (5) Hyperlipidemia: Code(s): E78.5 - Hyperlipidemia, unspecified Status: Chronic Assessment and Plan: -----continue statin therapy at discharge (6) Fatty liver: Code(s): K76.0 - Fatty (change of) liver, not elsewhere classified Status: Chronic Assessment and Plan: Non alcoholic consults GI. Additional Plan Additionally the patient has a rash, splenomegaly, and cirrhosis. She is currently getting her cirrhosis worked but wants to change doctors. She should continue to see this doctor has there may be additional pathology here. I have started with basic labs such as an KEVIN, TSH, HIV, hepatitis, ceruloplasmin, celiac antibody, and CRP. This will need to be continued outpatient. Broad differential at this time-lupus, wilsons disease, IBD, celiac, etc Time Spent With Patient Time with patient: 25 - 35 minutes Subjective Date/time seen: 01/01/20 15:45 Interval history: Pt is a 34-year-old female here for abdominal pain. Patient was seen today and states that she has a papular rash that is very itchy. She states she takes Benadryl every night to help with this rash. This is been going on for months. She also mentions that she has this episodic abdominal pain and that she has had an EGD in the past which was a couple months ago. A few days ago, she started throwing up blood but has not done this since. She is unsure if she has esophageal varices and could not really recall anything that was found on her EGD. She does not notice that her abdominal pain is worse or better with food. She is currently eating [email or web address] during my exam. She has history of diarrhea and constipation but nothing currently. She sees a liver specialist but wants to change. Review of Systems Review of Systems: All systems reviewed & are unremarkable except as noted in HPI and below Exam Narrative: Exam Narrative: General: Well developed well nourished patient resting in bed in NAD HEENT: normocephalic Neck: supple Neuro: Alert and oriented x4 CV:RRR Resp:CTA skin: Papular skin color rash on the dorsum of her hands, legs, abdomen and back Abd: Soft, non distended. No pain to palpation. Positive bowel sounds Extremities: No swelling, erythema, or pain to palpation. Objective Data Vital Signs Vital Signs: Vital Signs - 24 hr 12/31/19 16:20 12/31/19 18:48 12/31/19 20:08 Temperature 97.7 F Pulse Rate 80 87 84 Respiratory Rate 18 18 16 Blood Pressure 142/78 H 119/80 145/78 H Pulse Oximetry 99 99 100 12/31/19 20:14 01/01/20 02:31 01/01/20 04:29 Temperature 97.1 F L 98.1 F 98.9 F Pulse Rate 86 79 88 Respiratory Rate 16 14 16 Blood Press
--- NOTE | 2020-01-01 15:52 | WPDGICN ---
Assessment and Plan Assessment and plan (1) Abdominal pain: Qualifiers: Abdominal location: right upper quadrant Qualified Code(s): R10.11 - Right upper quadrant pain Code(s): R10.9 - Unspecified abdominal pain Status: Acute Assessment and Plan: unspecified pain, also noted use of nsaid's and she has history of cirrhosis no signs of bleeding but will assess with egd tomorrow (2) Nausea & vomiting: Qualifiers: Vomiting Intractability: non-intractable Vomiting type: unspecified Qualified Code(s): R11.2 - Nausea with vomiting, unspecified Code(s): R11.2 - Nausea with vomiting, unspecified Status: Acute Assessment and Plan: antiemetics prn, probably also will need gastric emptying study as outpatient to assess for gastroparesis given history of DM (3) Cirrhosis: Code(s): K74.60 - Unspecified cirrhosis of liver Status: Chronic Assessment and Plan: ? 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) use of non-steroidal anti-inflammatories (NSAID) Status: Acute (5) Fatty liver: Code(s): K76.0 - Fatty (change of) liver, not elsewhere classified Status: Chronic (6) Diabetes mellitus: Code(s): E11.9 - Type 2 diabetes mellitus without complications Status: Chronic Assessment and Plan: on medical treatment (7) Morbid obesity: Code(s): E66.01 - Morbid (severe) obesity due to excess calories Status: Acute GI Consult Note Consult date/time: 01/01/20 15:52 Reason for consult: cirrhosis, abdominal pain HPI: Shruti Velazquez is a 34 year old female with history of cirrhosis apparently from chin diagnosed last year but I do not have records and she is not best historian. Remote history of cocaine and amphetamine used but quit few years ago, denies alcohol. She has seen asset accountant in [facility] and she thinks that her last EGD was few months ago because at some point she says that vomited blood. No recent melena or vomiting but sometimes she has nausea, she also has DM on insulin. She came here with pain in right flank and nausea. CT of the abdomen showed development of retroperitoneal generalized mesenteric fat stranding, small amount of ascites. Cirrhosis, portal hypertension, splenomegaly. Blood work platelets 120. Glucose 186. Alkaline phosphatase 142, normal bilirubin. Lipase 23. Urine was negative urine tox screen was negative. Still with pain but no vomiting, hb normal. She also has been using aleve daily because migraines. Review of Systems Constitutional: Constitutional: Denies headache(s) and Denies weakness Eyes: Eyes: Denies blurry vision ENT: Reports Normal hearing present, Denies headache(s) and Denies neck pain Cardiovascular: Cardiovascular: Denies chest pain and Denies dyspnea Respiratory: Respiratory: Denies dyspnea Gastrointestinal: Gastrointestinal: Reports no additional gastrointestinal complaints Genitourinary: Genitourinary: Denies dysuria Musculoskeletal: Musculoskeletal: Denies neck pain Integumentary/Breasts: Skin/Breast: Denies dry skin Neurologic: Reports Normal hearing present, Denies headache(s) and Denies weakness Psychiatric: Psychiatric: Denies anxiety Endocrine: Endocrine: Denies change in body appearance Hematologic/Lymphatic: Hematologic/Lymphatic: Denies easy bleeding Allergic/Immunologic: Allergic/Immunologic: Denies urticaria [facility] Past Medical History Medical History (Updated 01/01/20 @ 16:00 by Michael Cárdenas MD) Asthma Bronchitis Cirrhosis Diabetes mellitus Fatty liver Hyperlipidemia Morbid obesity NSAID long-term use Rheumatoid arthritis Surgical History Surgical History (Updated 12/31/19 @ 23:51 by Iesha Serra NP) History of cholecystectomy History of corneal transplant Left eye, 2013 Hx of appendectomy
[2020-01-01 16:27] LABS: CRP 1.5 mg/dL (<1.0)
[2020-01-01] MEDS: HYDROcodone/acetaminophen (*CRX) 5-325 MG TABLET 1 TAB PO ×2 (16:33→22:14)
[2020-01-01] MEDS: DIPHENHYDRAMINE 1%/ZINC 0.1% CREAM 30 GM TUBE 1 APPLIC TOPICAL (16:34)
[2020-01-01 16:45] LABS: Glucose Point of Care 162 (65-105)
[2020-01-01 16:55] LABS: Cortisol Random 0.51 ug/dL
[2020-01-01 17:05] LABS: HIV 1/2 Ab P24 Ag Result Negative (Negative)
[2020-01-01 17:17] LABS: Hepatitis B Surface Antigen Negative (Negative)
[2020-01-01 17:23] LABS: HAV RESULT Negative (Negative); Hepatitis B Core IgM Result Negative (Negative)
[2020-01-01 17:35] LABS: Hepatitis C Virus Antibody Negative (Negative)
[2020-01-01 21:17] VITALS: BP 139/73; PULSE 85; RESP 18; TEMP 36.5; O2SAT 94
[2020-01-01] MEDS: diphenhydrAMINE HCl CAP 25 MG CAPSULE PO (22:14)
[2020-01-02] VITALS (7 sets, daily range): BP systolic 126–139; BP diastolic 67–90; PULSE 83–94; RESP 16–25; TEMP 36.6–37.1; O2SAT 95–100
[2020-01-02 00:58] LABS: Glucose Point of Care 204 (65-105)
--- NOTE | 2020-01-02 02:29 | PC.NURSE ---
Staff witnessed PT attempt to turn off bed alarm multiple times. PT educated on need for bed alarm to stay on and for staff to be in room while ambulating.
[2020-01-02 06:31] LABS: Basophils Percent Auto 0.4 % (0.2-1.2); Eosinophils Absolute Auto 0.2 K/mm3 (0-0.3); Eosinophils Percent Auto 2.1 % (0-4.4); Hematocrit 30.1 % (37.0-47.0); Immature Granulocyte Absolute 0.03 K/mm3 (0.00-0.031); Immature Granulocyte Percent A 0.3 % (0-0.5); Lymphocytes Absolute Auto 2.99 K/mm3 (0.9-3.2); Lymphocytes Percent Auto 31.9 % (18.3-44.2); Mean Corpuscular HGB Conc 33.2 g/dl (32-36); Mean Corpuscular Hemoglobin 31.4 pg (26-34); Mean Corpuscular Volume 94.7 fl (80-100); Mean Platelet Volume 10.7 fl (7.4-10.4); Monocytes Absolute Auto 0.8 K/mm3 (0.1-0.6); Monocytes Percent Auto 8.2 % (2.6-8.5); Neutrophils Absolute Auto 5.3 K/mm3 (1.3-6.7); Neutrophils Percent Auto 57.1 % (45.5-73.1); Platelet Count Result 130 k/mm3 (150-375); Red Blood Count 3.18 M/mm3 (4.2-5.4); Red Cell Distribution Width 13.6 % (11.5-14.5); White Blood Count 9.4 K/mm3 (4.5-10.0)
[2020-01-02 06:35] LABS: Hemoglobin A1C 8.9 % (<5.7)
[2020-01-02 06:40] LABS: Alanine Aminotransferase 24 U/L (4-35); Albumin Level 3.5 g/dL (3.5-5.1); Alkaline Phosphatase 131 U/L (38-126); Anion Gap 5 mmol/L (8-16); Aspartate Amino Transferase 64 U/L (14-36); Bilirubin,Total 0.9 mg/dL (0.2-1.3); Blood Urea Nitrogen 14 mg/dL (7-17); Calcium 8.6 mg/dL (8.4-10.2); Carbon Dioxide 29 mmol/L (22-30); Chloride 104 mmol/L (98-107); Estimated CRCL calculation 130 ml/min; Estimated Glomerular Filt Rate > 60; Glucose 136 mg/dL (65-105); Lipase 53 U/L (23-300); Potassium 4.5 mmol/L (3.4-5.0); Sodium 138 mmol/L (137-145)
[2020-01-02 09:26] LABS: Glucose Point of Care 125 (65-105)
--- NOTE | 2020-01-02 09:49 | PC.NURSE ---
Report called to GI Lab.
[2020-01-02] MEDS: FAMOTIDINE 20 MG/2 ML VIAL IV PUSH (10:14)
[2020-01-02] MEDS: COSYNTROPIN 0.25 MG/ML VIAL IV PUSH (10:15)
--- NOTE | 2020-01-02 11:25 | PC.NURSE ---
To GI Lab via wheelchair.
--- NOTE | 2020-01-02 11:38 | WPDANESEPPF ---
Anes - Initial Pre Proc Eval Procedure: Operation Date: 01/02/20 12:30 Proposed Procedures p Esophagogastroduodenoscopy - Michael Cárdenas MD Date/Time: 01/02/20 11:38 Surgeon: Digna Peña PA-C Pre Op Diagnosis: abdominal pain, right back pain Patient Data Age: 34 Gender: F Height: 5 ft 7 in Weight: 119.2 kg Last Vital Signs Temp 36.8 C 01/02/20 06:00 Pulse 88 01/02/20 09:23 Resp 20 01/02/20 09:23 BP 136/89 01/02/20 06:00 Pulse Ox 100 01/02/20 09:23 Allergies Allergy/AdvReac Type Severity Reaction Status Date / Time clindamycin Allergy Unknown Unknown Verified 12/31/19 15:49 latex Allergy Unknown Unknown Verified 12/31/19 15:49 paroxetine Allergy Unknown Unknown Verified 12/31/19 15:49 morphine Allergy Itching Verified 12/31/19 15:49 Home Medications Medication Instructions Recorded Confirmed Type albuterol sulfate 2 puff INHALATION QID PRN 08/31/19 12/31/19 History baclofen 10 mg PO TID PRN 08/31/19 12/31/19 History beclomethasone dipropionate [Qvar 1 inh INHALATION Q12H 08/31/19 12/31/19 History RediHaler] bupropion HCl [Wellbutrin SR] 150 mg PO BID 08/31/19 12/31/19 History dicyclomine 10 mg PO TID #10 cap 08/31/19 12/31/19 Rx diphenhydramine HCl [Benadryl 50 mg PO HS 08/31/19 12/31/19 History Allergy] ferrous sulfate 325 mg PO DAILY 08/31/19 12/31/19 History gabapentin 600 mg PO TID 08/31/19 12/31/19 History insulin glargine [Basaglar KwikPen 65 unit SUBCUT BID 08/31/19 12/31/19 History U-100 Insulin] loratadine 10 mg PO DAILY 08/31/19 12/31/19 History meclizine 12.5 mg PO TID PRN #10 tablet 08/31/19 12/31/19 Rx montelukast [Singulair] 10 mg PO DAILY 08/31/19 12/31/19 History ondansetron HCl [Zofran] 4 mg PO Q6H PRN #14 tablet 08/31/19 12/31/19 Rx sertraline 200 mg PO BID 08/31/19 12/31/19 History simvastatin 20 mg PO DAILY 08/31/19 12/31/19 History trazodone 50 mg PO HS 08/31/19 12/31/19 History Humalog Pen 45 units SUBCUT TIDWM 12/31/19 12/31/19 History Januvia See Rx Instructions .ROUTE .COMPLEX 12/31/19 12/31/19 History Laboratory Tests 01/01/20 01/01/20 01/01/20 11:46 15:56 15:56 WBC RBC Hgb Hct MCV MCH MCHC RDW Plt Count MPV Immature Gran % (Auto) Neut % (Auto) Lymph % (Auto) Forest % (Auto) Eos % (Auto) Baso % (Auto) Lymph # (Auto) Forest # (Auto) Eos # (Auto) Baso # (Auto) Abs Immat Gran (auto) Absolute Neuts (auto) Absolute Nucleated RBC Nucleated RBC % Sodium Potassium Chloride Carbon Dioxide Anion Gap BUN Creatinine Estim Creat Clear Calc Estimated GFR Glucose POC Capillary Glucose 99 mg/dl mg/dl (65-105) Hemoglobin A1c Calcium Magnesium Total Bilirubin AST ALT Alkaline Phosphatase C-Reactive Protein 1.5 mg/dL H mg/dL (<1.0) Total Protein Albumin Ceruloplasmin Lipase Vitamin B12 Folate TSH (Reflex) Random Cortisol Cortisol Baseline Cortisol Resp 30 Min Cortisol Resp 60 Min KEVIN Screen Tiss Transglutamin IgA Pending Hepatitis A IgM Ab Hep Bs Antigen Hep B Core IgM Ab Hepatitis C Ab Screen HIV 1&2 Ab/P24 Ag 4thGn 01/01/20 01/01/20 01/01/20 15:56 15:56 15:56 WBC RBC Hgb Hct MCV MCH MCHC RDW Plt
[2020-01-02 11:39] LABS: Glucose Point of Care 105 (65-105)
[2020-01-02] MEDS: LACTATED RINGERS 1,000 ML 150 ML IV CONT (11:43)
[2020-01-02] MEDS: BENZOCAINE (*SP) 60 ML SPRAY CAN (HURRICAINE) 1 SPRAY MUCOUS MEM ×2 (12:11→13:22)
[2020-01-02 12:44] LABS: Glucose Point of Care 113 (65-105)
--- NOTE | 2020-01-02 13:00 | PC.NURSE ---
Return from GI Lab via stretcher. Family at bedside.
--- NOTE | 2020-01-02 15:32 | PM.DS ---
DS: Admitting Diagnosis Admitting Diagnosis Admitting Diagnosis: abdominal pain, right back pain DS: Discharge Diagnosis Discharge Diagnosis (1) Abdominal pain: Qualifiers: Abdominal location: right upper quadrant Qualified Code(s): R10.11 - Right upper quadrant pain Code(s): R10.9 - Unspecified abdominal pain Status: Acute Assessment and Plan: ------unclear etiology at this time but improved. EGD showed esophageal varices but no other abnormality. CT of the abdomen pelvis showed development of retroperitoneal and generalized mesenteric fat stranding. No elevation of amylase or lipase. Pt pain improved on exam. Related to cirrhosis? other pathology? Pain is gone. Would recommend repeat CT in 3-6 months and close f/u with weapons mechanic. I spoke with Debra Ramires NP about this. (2) Diabetes mellitus: Code(s): E11.9 - Type 2 diabetes mellitus without complications Status: Chronic Assessment and Plan: ------last glucose 113. Continue home regimen. (3) Cirrhosis: Code(s): K74.60 - Unspecified cirrhosis of liver Status: Chronic Assessment and Plan: -----Pt has an appointment in may for a weapons mechanic in [facility]. (4) Asthma: Code(s): J45.909 - Unspecified asthma, uncomplicated Status: Chronic Assessment and Plan: ----Continue QVAR and albuterol (5) Hyperlipidemia: Code(s): E78.5 - Hyperlipidemia, unspecified Status: Chronic Assessment and Plan: -----continue statin therapy at discharge (6) Fatty liver: Code(s): K76.0 - Fatty (change of) liver, not elsewhere classified Status: Chronic (7) Esophageal varices: Code(s): I85.00 - Esophageal varices without bleeding Status: Acute Assessment and Plan: -----Seen on EGD. Non bleeding at this time. nadolol started. (8) None to low serum cortisol response with adrenocorticotrophic hormone (ACTH) stimulation test: Code(s): R94.7 - Abnormal results of other endocrine function studies Status: Acute Assessment and Plan: -----Pts random cortisol was 0.51 on 01/01/20 at 3pm which was low. She underwent an cortisol stimulating test which showed a baseline cortisol 10.2 in the morning which is normal. With that being said, her cortisol response 30 minutes and 60 minutes were 14 which is subtherapeutic as it should be 18-20. Unsure of significance. Plan for ACTH draw but must be in the morning and she was discharged. Spoke with Debra Ramires about this and she plans to have her f/u with endocrinology and is working on a referral for her. DS: Summary Hospital Course Reason for hospitalization: Abdominal pain Hospital Course: Patient is a 34-year-old female who presented emergency room with right sided upper quadrant and right flank pain. Pulse 95, respiratory rate 22, blood pressure 159/119, pulse ox 95 on room air. CBC showed a white blood cell count of 10.3, hematocrit 31.3, hemoglobin 10.1, platelets 120. BMP within normal limits with the exception of random glucose 186. test negative. CT of the abdomen pelvis:1. Development of retroperitoneal and generalized mesenteric fat stranding, small amount of ascites. Recommend checking amylase/lipase levels for possible acute pancreatitis. 2. Cirrhosis, portal hypertension, splenomegaly. UA not suspicious of infection. Patient was admitted to the hospitalist service for observation. She underwent an EGD which showed only esophageal varices that were not bleeding but no other pathology. Her pain improved the day of discharge and she was walking around in her room without trouble. Because of her nonspecific CT findings, I would recommend another CT in 3-6 months. I called her nurse practitioner Debra Ramires and let her know about her stay in follow-up. Please see above for further details. Patient was educated about the worrisome signs and symptoms to
[2020-01-04 19:18] LABS: Tissue Transglutaminase IgA Ab 1 U/mL (<4)
[2020-01-06 16:57] LABS: Ceruloplasmin 28 mg/dL (18-53)
--- NOTE | 2020-01-09 14:04 | PC.NURSE ---
KEVIN, TTIGA, Ceruloplasmin faxed to PCP- Debra Ramires NP. ANTONETTE Norton aware of findings.
== END 2020-01-02 16:55 | disposition home or self-care (01) ==
LOC: ANHED 16:32 → ANH3MED 19:03
PROVIDERS: Internal Medicine Gastroenterology; Nurse Practitioner; Physician Assistant; Admitting Provider Internal Medicine; Emergency Provider Emergency Medicine; Visit Provider Family Medicine
PROC: 0DJ08ZZ Inspection of Upper Intestinal Tract, Via Natural or Artificial Opening Endoscopic (ICD-10-PCS; CPT 43235; principal; 2020-01-02 12:30)
DX: R10.11 Right upper quadrant pain (principal); K29.70 Gastritis, unspecified, without bleeding; I85.00 Esophageal varices without bleeding; R94.7 Abnormal results of other endocrine function studies; E11.9 Type 2 diabetes mellitus without complications; K76.0 Fatty (change of) liver, not elsewhere classified; E78.5 Hyperlipidemia, unspecified; K74.60 Unspecified cirrhosis of liver; J45.909 Unspecified asthma, uncomplicated; M06.9 Rheumatoid arthritis, unspecified; E66.01 Morbid (severe) obesity due to excess calories; Z68.41 Body mass index [BMI] 40.0-44.9, adult; Z79.4 Long term (current) use of insulin; Z79.84 Long term (current) use of oral hypoglycemic drugs; Z87.891 Personal history of nicotine dependence; Z79.899 Other long term (current) drug therapy
CPT/HCPCS: 43235; 36415; 74177; 80053; 80074; 80307; 81001; 81025; 82390; 82533; 82607; 82746; 83036; 83516; 83690; 83735; 84443; 85025; 86038; 86039; 86140; 86703; 94640; 96361; 96374; 96375; 96376; 99285; A9270; G0378; G0379; G0432; J0834; J1170; J1885; J2704; J2765; J3010; J7030; J7120; Q9967

== ENCOUNTER 2021-04-09 16:09 | Emergency (ER) | payer OTHER, SELFPAY ==
--- NOTE | ~2021-04-09 | CT_ITS ---
EXAMINATION: CT abdomen pelvis w con INDICATION: Abdominal pain TECHNIQUE: Computed tomographic images of the abdomen and pelvis were obtained after the administrati on of 100 cc of Omnipaque 350 intravenous contrast. The dose-length product (DLP) was 674.72 mGy-cm. Automated exposure control and iterative reconstruction technique were employed. COMPARISON: 12/31/2019 FINDINGS: The lung bases are clear. The heart size is normal. The gallbladder is surgically absent. T here is nodularity of the liver surface. The mildly enlarged spleen measures up to 16 cm. The adrenal glands are normal. The kidneys are unremarkable. Mild periportal lymphadenopathy is likely reactive. There is no free intraperitoneal gas or evidence of bowel obstruction. Surgical clips at the cecum a re consistent with prior appendectomy. There is a 3.2 cm cyst of the right adnexa. There is mild lumb ar spondylosis. IMPRESSION: 1. No CT correlate for the patient's symptoms. 2. Cirrhosis with portal hypertension and mild splenomegaly. 3. Chronic mild periportal lymphadenopathy, likely reactive. Reviewed, dictated and finalized at location [facility]. [facility]
[2021-04-09 16:16] VITALS: BP 146/88; PULSE 104; RESP 22; TEMP 36.3; O2SAT 100
[2021-04-09 16:52] LABS: Basophils Percent Auto 0.4 % (0.2-1.2); Eosinophils Absolute Auto 0.1 K/mm3 (0-0.3); Eosinophils Percent Auto 1.4 % (0-4.4); Hematocrit 42.5 % (37.0-47.0); Hemoglobin 14.4 g/dL (12.0-15.0); Immature Granulocyte Absolute 0.01 K/mm3 (0.00-0.031); Immature Granulocyte Percent A 0.1 % (0-0.5); Immature Platelet Fraction Pct 7.9 % (0.9-11.2); Lymphocytes Percent Auto 20.9 % (18.3-44.2); Mean Corpuscular HGB Conc 33.9 g/dl (32-36); Mean Corpuscular Hemoglobin 28.3 pg (26-34); Mean Corpuscular Volume 83.7 fl (80-100); Mean Platelet Volume 11.7 fl (7.4-10.4); Monocytes Absolute Auto 0.4 K/mm3 (0.1-0.6); Monocytes Percent Auto 5.6 % (2.6-8.5); Neutrophils Absolute Auto 5.5 K/mm3 (1.3-6.7); Neutrophils Percent Auto 71.6 % (45.5-73.1); Platelet Count Result 129 k/mm3 (150-375); Red Blood Count 5.08 M/mm3 (4.2-5.4); Red Cell Distribution Width 12.7 % (11.5-14.5); White Blood Count 7.7 K/mm3 (4.5-10.0)
--- NOTE | 2021-04-09 16:55 | ED.ABDPAIN ---
HPI - Abdominal Pain General Chief Complaint: Abdominal Pain Stated Complaint: ABD PAIN Time Seen by Provider: 04/09/21 16:21 Source: patient Mode of arrival: ambulatory Limitations: no limitations History of Present Illness HPI narrative: Patient is 35 years old white female presented to the ED with a right abdominal pain started 4 to 5 months ago. Patient been seen by numerous of physicians without any specific diagnosis. Patient denies any fever, chills, nausea, vomiting, chest pain, shortness of breath, headache, back pain, urinary symptoms, diarrhea or constipation. History of cholecystectomy, appendectomy. Last menstrual. 2014 for unknown reason. Patient smokes, doesn't drink or uses drugs. Patient doesn't work, lives with a boyfriend. Patient ran out of diabetes medicine FOR months. Related Data Home Medications Medication Instructions Recorded Confirmed Basaglar KwikPen U-100 Insulin 65 unit SUBCUT BID 08/31/19 12/31/19 Qvar RediHaler 1 inh INHALATION Q12H 08/31/19 12/31/19 albuterol sulfate 2 puff INHALATION QID PRN 08/31/19 12/31/19 baclofen 10 mg PO TID PRN 08/31/19 12/31/19 bupropion HCl [Wellbutrin SR] 150 mg PO BID 08/31/19 12/31/19 diphenhydramine HCl [Benadryl 50 mg PO HS 08/31/19 12/31/19 Allergy] ferrous sulfate 325 mg PO DAILY 08/31/19 12/31/19 gabapentin 600 mg PO TID 08/31/19 12/31/19 loratadine 10 mg PO DAILY 08/31/19 12/31/19 montelukast [Singulair] 10 mg PO DAILY 08/31/19 12/31/19 sertraline 200 mg PO BID 08/31/19 12/31/19 simvastatin 20 mg PO DAILY 08/31/19 12/31/19 trazodone 50 mg PO HS 08/31/19 12/31/19 Humalog Pen 45 units SUBCUT TIDWM 12/31/19 12/31/19 Januvia See Rx Instructions .ROUTE .COMPLEX 12/31/19 12/31/19 Allergies Allergy/AdvReac Type Severity Reaction Status Date / Time clindamycin Allergy Unknown Unknown Verified 10/12/20 15:49 latex Allergy Unknown Unknown Verified 12/31/19 15:49 paroxetine Allergy Unknown Unknown Verified 12/31/19 15:49 morphine Allergy Itching Verified 12/31/19 15:49 Review of Systems Review of Systems: CONSTITUTIONAL: Denies fever, chills, or sweats. EYES: Denies visual changes, redness, or discharge. ENT: Denies rhinorrhea, congestion, sore throat, or otalgia. CARDIOVASCULAR: Denies chest pain, palpitations, or edema. RESPIRATORY: Denies cough or dyspnea. GASTROINTESTINAL: Denies abdominal pain, nausea, vomiting, or diarrhea. GENITOURINARY: Denies dysuria or hematuria. SKIN: Denies rash or itching. MUSCULOSKELETAL: Denies back pain, joint pain, or myalgia. NEUROLOGIC: Denies headache, numbness, or weakness. PSYCHIATRIC: Denies anxiety or depression. [facility] Past Medical History Medical History Asthma Bronchitis Cirrhosis Diabetes mellitus Fatty liver Hyperlipidemia Morbid obesity NSAID long-term use Rheumatoid arthritis Surgical History Surgical History History of cholecystectomy History of corneal transplant Left eye, 2013 Hx of appendectomy Family History Family History Father Hypertension Sibling Hypertension Thyroid disorder Sibling Diabetes mellitus Mother Diabetes mellitus Hx of heart artery stent S/P triple vessel bypass Thyroid disorder Social History Social History Social History: The patient lives with her fiance. She has never been . She is not working. She does not receive any disability. She has no children. 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 The patient stated that she is a full code and that we can resuscitate her twice but then stop after that. The patient no longer smokes. She denies any alcohol marijuana or illicit drug use. She stop smoking in 2011. Smoking status: Former smoker Tobacco type: cigarettes Smoking end date: 03/21/11 Alcohol intake:
[2021-04-09 17:16] LABS: Alanine Aminotransferase 32 U/L (4-35); Albumin Level 4.2 g/dL (3.5-5.1); Alkaline Phosphatase 226 U/L (38-126); Anion Gap 12 mmol/L (8-16); Aspartate Amino Transferase 49 U/L (14-36); Bilirubin,Total 0.7 mg/dL (0.2-1.3); Blood Urea Nitrogen 6 mg/dL (7-17); Carbon Dioxide 28 mmol/L (22-30); Chloride 91 mmol/L (98-107); Estimated CRCL calculation 149 ml/min; Estimated Glomerular Filt Rate > 60; Glucose 651 mg/dL (65-110); Lipase 33 U/L (23-300); Potassium 3.8 mmol/L (3.4-5.0); Sodium 131 mmol/L (137-145)
[2021-04-09 17:42] LABS: Fractional Inspired Oxygen 21 %; HCO3 VBG 26.2 mEq/l (24.0-30.0); PCO2 VBG 41.2 mmHg (42.0-48.0); PO2 VBG 29.2 mmHg (35.0-45.0)
[2021-04-09 17:43] LABS: Device ROOM AIR; pH VBG 7.421 (7.300-7.400)
[2021-04-09 17:45] LABS: Add Urine Microscopic? YES; Appearance Urine Clear (Clear); Bilirubin Urine Negative (Negative); Blood Urine 1+ (Negative); Color Urine Straw (Yellow); Glucose Urine UA Negative (Negative); Ketones Urine Negative (Negative); Leukocyte Esterase Ur Negative LEU/UL (Negative); Mucus Urine Rare /lpf; Nitrate Urine Negative (Negative); Protein Urine Negative (Negative); Squamous Epithelial Cell Urine Few /hpf (Few); Urobilinogen Urine Negative mg/dL (<2.0)
[2021-04-09 17:46] LABS: Specific Grav Ur 1.031 (1.001-1.035)
[2021-04-09 17:48] LABS: Glucose Point of Care > 500 mg/dl (65-105)
[2021-04-09] MEDS: INSULIN HUMAN REGULAR (*BKC) 100 UNITS/ML 9 UNITS IV PUSH (17:52)
[2021-04-09] MEDS: SODIUM CHLORIDE 0.9% IV 1,000 ML 999 ML IV CONT ×2 (17:54)
[2021-04-09 17:58] LABS: Magnesium 1.5 mg/dL (1.6-2.3); Phosphorus 5.5 mg/dL (2.5-4.5)
[2021-04-09 18:53] LABS: Glucose Point of Care 443 mg/dl (65-105)
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
[2021-04-09 19:35] LABS: Beta-Hydroxybutyrate/Acetoacetate 0.07 mmol/L (0.02-0.27)
[2021-04-09 19:54] LABS: Glucose Point of Care 362 mg/dl (65-105)
[2021-04-09 20:12] VITALS: BP 119/72; PULSE 75; RESP 18; O2SAT 100
[2021-04-09] MEDS: INSULIN HUMAN REGULAR (*BKC) 100 UNITS in SODIUM CHLORIDE 0.9% IV 99 ML 6.02 UNITS IV CONT (20:19)
[2021-04-09 21:13] LABS: Glucose Point of Care 332 mg/dl (65-105)
[2021-04-09 22:24] LABS: Glucose Point of Care 266 mg/dl (65-105)
[2021-04-09 22:37] VITALS: BP 109/74; PULSE 84; RESP 18; O2SAT 99
== END 2021-04-09 22:35 | disposition home or self-care (01) ==
PROVIDERS: Emergency Medicine; Emergency Provider Emergency Medicine
DX: K76.6 Portal hypertension (principal); K74.60 Unspecified cirrhosis of liver; E11.65 Type 2 diabetes mellitus with hyperglycemia; Z91.14 Patient's other noncompliance with medication regimen; R10.11 Right upper quadrant pain; J45.909 Unspecified asthma, uncomplicated; E78.5 Hyperlipidemia, unspecified; M06.9 Rheumatoid arthritis, unspecified; E66.01 Morbid (severe) obesity due to excess calories; Z68.30 Body mass index [BMI] 30.0-30.9, adult; Z79.4 Long term (current) use of insulin; Z79.84 Long term (current) use of oral hypoglycemic drugs; Z94.7 Corneal transplant status; Z87.891 Personal history of nicotine dependence; R16.1 Splenomegaly, not elsewhere classified
CPT/HCPCS: 36415; 51701; 74177; 80053; 81001; 81025; 82010; 82803; 82948; 83690; 83735; 84100; 85025; 85055; 96361; 96365; 96366; 96376; 99284; A9270; J1815; J7030; Q9967

== ENCOUNTER 2021-09-04 16:52 | Emergency (ER) | payer OTHER, SELFPAY ==
[2021-09-04 17:09] VITALS: BP 131/84; PULSE 111; RESP 16; O2SAT 99
--- NOTE | 2021-09-04 19:03 | ED.SKABFB ---
HPI - Skin/Abscess/Foreign Bdy General Chief complaint: Skin/Abscess/Foreign Body Stated complaint: Abcess on Private Areas Time Seen by Provider: 09/04/21 17:35 History of Present Illness HPI narrative: Patient is a 35-year-old female who presents ER with concerns of a possible abscess near her rectum and infection on her labia. Ongoing over the last couple days. Tender to palpation around the rectum. No drainage. He will have bowel movement without issue. He has history of perirectal abscess in the past that required drainage in the same area. Patient also reports that same time she started getting some redness and discomfort to her left vulva. No drainage or pustules noted. No vaginal discharge. No herpetic vesicles. Related Data Home Medications Medication Instructions Recorded Confirmed albuterol sulfate 90 mcg/actuation 2 puff inhalation QID PRN Dyspnea 08/31/19 12/31/19 aerosol inhaler baclofen 10 mg tablet 10 mg PO TID PRN Pain 08/31/19 12/31/19 beclomethasone dipropionate 80 1 inh inhalation Q12H 08/31/19 12/31/19 mcg/actuation HFA breath activated aerosol (Qvar RediHaler) bupropion HCl 150 mg tablet,12 hr 150 mg PO BID 08/31/19 12/31/19 sustained-release (Wellbutrin SR) diphenhydramine HCl 25 mg tablet 50 mg PO HS 08/31/19 12/31/19 (Benadryl Allergy) ferrous sulfate 325 mg (65 mg 325 mg PO DAILY 08/31/19 12/31/19 iron) tablet gabapentin 600 mg tablet 600 mg PO TID 08/31/19 12/31/19 insulin glargine 100 unit/mL (3 65 unit subcut BID 08/31/19 12/31/19 mL) subcutaneous pen (Basaglar KwikPen U-100 Insulin) loratadine 10 mg tablet 10 mg PO DAILY 08/31/19 12/31/19 montelukast 10 mg tablet 10 mg PO DAILY 08/31/19 12/31/19 (Singulair) sertraline 100 mg tablet 200 mg PO BID 08/31/19 12/31/19 simvastatin 20 mg tablet 20 mg PO DAILY 08/31/19 12/31/19 trazodone 50 mg tablet 50 mg PO HS 08/31/19 12/31/19 Humalog Pen 45 units subcut TIDWM 12/31/19 12/31/19 Brandon See Rx Instructions .Route .COMPLEX 12/31/19 12/31/19 Allergies Allergy/AdvReac Type Severity Reaction Status Date / Time clindamycin Allergy Unknown Unknown Verified 09/04/21 17:13 latex Allergy Unknown Unknown Verified 09/04/21 17:13 paroxetine Allergy Unknown Unknown Verified 09/04/21 17:13 morphine Allergy Itching Verified 09/04/21 17:13 Review of Systems Review of Systems: All systems reviewed & are unremarkable except as noted in HPI and below ENT: Denies dysphagia and Denies nasal congestion Gastrointestinal: Gastrointestinal: Denies abdominal pain, Denies nausea and Denies vomiting Comments: Pain your rectum Integumentary/Breasts: Skin/Breast: Denies pruritus, Reports erythema (Left labia majora) and Denies skin ulcer PMFSH Past Medical History Medical History Asthma Bronchitis Cirrhosis Diabetes mellitus Fatty liver Hyperlipidemia Morbid obesity NSAID long-term use Rheumatoid arthritis Surgical History Surgical History History of cholecystectomy History of corneal transplant Left eye, 2013 Hx of appendectomy Family History Family History Father Hypertension Sibling Hypertension Thyroid disorder Sibling Diabetes mellitus Mother Diabetes mellitus Hx of heart artery stent S/P triple vessel bypass Thyroid disorder Social History Social History Social History: The patient lives with her fiance. She has never been . She is not working. She does not receive any disability. She has no children. 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 The patient stated that she is a full code and that we can resuscitate her twice but then stop after that. The patient no longer smokes. She denies any alcohol marijuana or illicit drug use. She stop smoking in 2011. Allan
[2021-09-04] MEDS: CEPHALEXIN 500 MG CAPSULE PO (19:32)
[2021-09-04 19:35] VITALS: BP 111/81; PULSE 109; RESP 20; O2SAT 99
== END 2021-09-04 19:37 | disposition home or self-care (01) ==
PROVIDERS: Emergency Provider Emergency Medicine; PCP Internal Medicine Gastroenterology
DX: K62.89 Other specified diseases of anus and rectum (principal); N76.2 Acute vulvitis; J45.909 Unspecified asthma, uncomplicated; K74.60 Unspecified cirrhosis of liver; E11.9 Type 2 diabetes mellitus without complications; E78.5 Hyperlipidemia, unspecified; E66.01 Morbid (severe) obesity due to excess calories; Z68.29 Body mass index [BMI] 29.0-29.9, adult; M06.9 Rheumatoid arthritis, unspecified; Z79.4 Long term (current) use of insulin; Z79.84 Long term (current) use of oral hypoglycemic drugs; Z94.7 Corneal transplant status; Z87.891 Personal history of nicotine dependence
CPT/HCPCS: 10060; 56405; 81025; 99283; A9270

== ENCOUNTER 2021-12-09 18:22 | Emergency (ER) | payer OTHER, SELFPAY ==
[2021-12-09 18:31] VITALS: BP 119/79; PULSE 131; RESP 16; TEMP 37.2; O2SAT 99
--- NOTE | 2021-12-09 19:54 | ED.GENADULT ---
HPI - General Adult General Chief complaint: Abdominal Pain Stated complaint: abd pain Source: patient Mode of arrival: ambulatory Limitations: no limitations History of Present Illness HPI narrative: Patient presents for evaluation of charley horses in her bilateral lower extremities since yesterday. She indicates she had a COVID booster 2 days ago and developed generalized body aches thereafter. Yara body aches are improving however her charley horses persist. She has attempted to drink water and eat bananas but states symptoms persist. She has had symptoms in the past for which she has received baclofen. She states her primary care provider retired she is requesting a prescription for baclofen. No additional complaints or concerns. Related Data Home Medications Medication Instructions Recorded Confirmed albuterol sulfate 90 mcg/actuation 2 puff inhalation QID PRN Dyspnea 08/31/19 12/09/21 aerosol inhaler beclomethasone dipropionate 80 1 inh inhalation Q12H 08/31/19 12/09/21 mcg/actuation HFA breath activated aerosol (Qvar RediHaler) loratadine 10 mg tablet 10 mg PO DAILY 08/31/19 12/09/21 montelukast 10 mg tablet 10 mg PO DAILY 08/31/19 12/09/21 (Singulair) sertraline 100 mg tablet 200 mg PO BID 08/31/19 12/09/21 simvastatin 20 mg tablet 20 mg PO DAILY 08/31/19 12/09/21 erythromycin 5 mg/gram (0.5 %) eye 1 applic ophthalmic (eye) 12/09/21 12/09/21 ointment DIRECTED sitagliptin 50 mg tablet (Januvia) 50 mg PO DAILY 12/09/21 12/09/21 tobramycin 0.3 % eye drops 1 drp ophthalmic (eye) DIRECTED 12/09/21 12/09/21 trazodone 100 mg tablet 100 mg PO DAILY 12/09/21 12/09/21 Allergies Allergy/AdvReac Type Severity Reaction Status Date / Time clindamycin Allergy Unknown Unknown Verified 12/09/21 18:36 latex Allergy Unknown Unknown Verified 12/09/21 18:36 paroxetine Allergy Unknown Unknown Verified 12/09/21 18:36 morphine Allergy Itching Verified 12/09/21 18:36 Review of Systems Review of Systems: CONSTITUTIONAL: Denies fever, chills, or sweats. EYES: Denies visual changes, redness, or discharge. ENT: Denies rhinorrhea, congestion, sore throat, or otalgia. CARDIOVASCULAR: Denies chest pain, palpitations, or edema. RESPIRATORY: Denies cough or dyspnea. GASTROINTESTINAL: Denies abdominal pain, nausea, vomiting, or diarrhea. GENITOURINARY: Denies dysuria or hematuria. SKIN: Denies rash or itching. MUSCULOSKELETAL:Reports charley horses in BLE. Denies joint pain. NEUROLOGIC: Denies headache, numbness, dizziness, or weakness. PSYCHIATRIC: Denies anxiety or depression. [facility] Past Medical History Medical History Asthma Bronchitis Cirrhosis Diabetes mellitus Fatty liver Hyperlipidemia Morbid obesity NSAID long-term use Rheumatoid arthritis Surgical History Surgical History History of cholecystectomy History of corneal transplant Left eye, 2013 Hx of appendectomy Family History Family History Father Hypertension Sibling Hypertension Thyroid disorder Sibling Diabetes mellitus Mother Diabetes mellitus Hx of heart artery stent S/P triple vessel bypass Thyroid disorder Social History Social History Social History: The patient lives with her fiance. She has never been . She is not working. She does not receive any disability. She has no children. 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 The patient stated that she is a full code and that we can resuscitate her twice but then stop after that. The patient no longer smokes. She denies any alcohol marijuana or illicit drug use. She stop smoking in 2011. Smoking status: Former smoker Tobacco type: cigarettes Smoking end date: 03/21/11 Alcohol intake: former S
== END 2021-12-09 19:29 | disposition home or self-care (01) ==
PROVIDERS: Emergency Provider Nurse Practitioner
DX: R25.2 Cramp and spasm (principal); J45.909 Unspecified asthma, uncomplicated; K74.60 Unspecified cirrhosis of liver; E11.9 Type 2 diabetes mellitus without complications; K76.0 Fatty (change of) liver, not elsewhere classified; E78.5 Hyperlipidemia, unspecified; M06.9 Rheumatoid arthritis, unspecified; E66.01 Morbid (severe) obesity due to excess calories; Z68.23 Body mass index [BMI] 23.0-23.9, adult
CPT/HCPCS: 99213; G0463

== ENCOUNTER 2022-03-06 13:40 | Emergency (ER) | payer OTHER, SELFPAY ==
[2022-03-06 14:25] VITALS: BP 129/85; PULSE 103; RESP 16; TEMP 36.3; O2SAT 99
--- NOTE | 2022-03-06 14:51 | ED.GENADULT ---
HPI - General Adult General Chief complaint: Unspecified Stated complaint: lump back of head Time Seen by Provider: 03/06/22 14:51 Source: patient, RN notes reviewed and old records reviewed Mode of arrival: ambulatory Limitations: no limitations History of Present Illness HPI narrative: 36-year-old female presents to the [facility] with a scabbed over bump to the back of her head, more to the right side for the last 3 days. Cut her hair around it. Has not taken anything. Patient states a couple of days ago she felt something on her head and scratched it when tiny baby spiders came out of her hair. Related Data Home Medications Medication Instructions Recorded Confirmed albuterol sulfate 90 mcg/actuation 2 puff inhalation QID PRN Dyspnea 08/31/19 12/09/21 aerosol inhaler beclomethasone dipropionate 80 1 inh inhalation Q12H 08/31/19 12/09/21 mcg/actuation HFA breath activated aerosol (Qvar RediHaler) loratadine 10 mg tablet 10 mg PO DAILY 08/31/19 12/09/21 montelukast 10 mg tablet 10 mg PO DAILY 08/31/19 12/09/21 (Singulair) sertraline 100 mg tablet 200 mg PO BID 08/31/19 12/09/21 simvastatin 20 mg tablet 20 mg PO DAILY 08/31/19 12/09/21 sitagliptin phosphate 50 mg tablet 50 mg PO DAILY 12/09/21 12/09/21 (Januvia) tobramycin 0.3 % eye drops 1 drp ophthalmic (eye) DIRECTED 12/09/21 12/09/21 trazodone 100 mg tablet 100 mg PO DAILY 12/09/21 12/09/21 insulin glargine 100 unit/mL (3 unit subcut 03/06/22 mL) subcutaneous pen (Basaglar KwikPen U-100 Insulin) omeprazole 40 mg capsule,delayed mg 03/06/22 release Allergies Allergy/AdvReac Type Severity Reaction Status Date / Time clindamycin Allergy Unknown Unknown Verified 03/06/22 14:27 latex Allergy Unknown Unknown Verified 03/06/22 14:27 paroxetine Allergy Unknown Unknown Verified 03/06/22 14:27 morphine Allergy Itching Verified 03/06/22 14:27 Review of Systems Review of Systems: All systems reviewed & are unremarkable except as noted in HPI and below Constitutional: Constitutional: Reports no additional constitutional complaints Eyes: Eyes: Reports no additional eye complaints ENT: Reports system reviewed and no additional complaints, except as documented Cardiovascular: Cardiovascular: Reports no additional cardiovascular complaints, Denies chest pain and Denies dyspnea Respiratory: Respiratory: Reports no additional respiratory complaints, Denies chest congestion, Denies cough and Denies dyspnea Gastrointestinal: Gastrointestinal: Reports no additional gastrointestinal complaints, Denies abdominal pain, Denies nausea and Denies vomiting Musculoskeletal: Musculoskeletal: Reports no additional musculoskeletal complaints Integumentary/Breasts: Skin/Breast: Reports as per HPI Neurologic: Reports system reviewed and no additional complaints, except as documented Psychiatric: Psychiatric: Reports no additional psychiatric complaints Allergic/Immunologic: Allergic/Immunologic: Reports no additional allergic/immunologic complaints [facility] Past Medical History Medical History Asthma Bronchitis Cirrhosis Diabetes mellitus Fatty liver Hyperlipidemia Morbid obesity NSAID long-term use Rheumatoid arthritis Surgical History Surgical History History of cholecystectomy History of corneal transplant Left eye, 2014 Hx of appendectomy Family History Family History Father Hypertension Sibling Hypertension Thyroid disorder Sibling Diabetes mellitus Mother Diabetes mellitus Hx of heart artery stent S/P triple vessel bypass Thyroid disorder Social History Social History Social History: The patient lives with her fiance. She has never been . She is not working. She does not receive any disability.
== END 2022-03-06 15:10 | disposition home or self-care (01) ==
PROVIDERS: Emergency Provider Nurse Practitioner
DX: S01.00XA Unspecified open wound of scalp, initial encounter (principal); X58.XXXA Exposure to other specified factors, initial encounter; Z87.891 Personal history of nicotine dependence; J45.909 Unspecified asthma, uncomplicated; K74.60 Unspecified cirrhosis of liver; E11.9 Type 2 diabetes mellitus without complications; Z79.4 Long term (current) use of insulin; E78.5 Hyperlipidemia, unspecified; K76.0 Fatty (change of) liver, not elsewhere classified; E66.01 Morbid (severe) obesity due to excess calories; Z68.29 Body mass index [BMI] 29.0-29.9, adult; M06.9 Rheumatoid arthritis, unspecified; Z94.7 Corneal transplant status
CPT/HCPCS: 99213; G0463

== ENCOUNTER 2022-04-02 13:29 | Emergency (ER) | payer OTHER, SELFPAY ==
[2022-04-02 13:34] VITALS: BP 130/86; PULSE 99; RESP 16; TEMP 36.7; O2SAT 100
--- NOTE | 2022-04-02 14:16 | PC.NURSE ---
EDP Aguila notified that patient has been having suicidal ideations. Patient states she has had these thoughts for some time now and has no plan and has no intentions on acting on these thoughts. Patient states she has been having close follow up care with psychiatrist. Per EDP no further inventions at this time.
--- NOTE | 2022-04-02 15:03 | ED.GENADULT ---
HPI - General Adult General Chief complaint: Skin/Abscess/Foreign Body Stated complaint: headache x 3 days - knot to back of head Time Seen by Provider: 04/02/22 14:08 History of Present Illness HPI narrative: 36-year-old female presented to the emergency department for evaluation of a suspected abscess the back of her scalp. Patient states this started approximately 4 days ago. Patient reports she has been scratching and was concerned that it may have gotten infected. Patient denies any discharge from this abscess. Patient states that she felt that she had gotten bit and that this was the source of the injury. Patient reports to nursing staff that she was having some suicidal thoughts. Patient states she is not currently suicidal. Patient states she does not feel that she is a threat to herself. Patient has no current thoughts of self-harm. Patient reports she does have a counselor and a psychiatrist. Patient declined to talk to a counselor here today. Related Data Home Medications Medication Instructions Recorded Confirmed albuterol sulfate 90 mcg/actuation 2 puff inhalation QID PRN Dyspnea 08/31/19 12/09/21 aerosol inhaler beclomethasone dipropionate 80 1 inh inhalation Q12H 08/31/19 12/09/21 mcg/actuation HFA breath activated aerosol (Qvar RediHaler) loratadine 10 mg tablet 10 mg PO DAILY 08/31/19 12/09/21 montelukast 10 mg tablet 10 mg PO DAILY 08/31/19 12/09/21 (Singulair) sertraline 100 mg tablet 200 mg PO BID 08/31/19 12/09/21 simvastatin 20 mg tablet 20 mg PO DAILY 08/31/19 12/09/21 sitagliptin phosphate 50 mg tablet 50 mg PO DAILY 12/09/21 12/09/21 (Januvia) tobramycin 0.3 % eye drops 1 drp ophthalmic (eye) DIRECTED 12/09/21 12/09/21 trazodone 100 mg tablet 100 mg PO DAILY 12/09/21 12/09/21 insulin glargine 100 unit/mL (3 unit subcut 03/06/22 mL) subcutaneous pen (Basaglar KwikPen U-100 Insulin) omeprazole 40 mg capsule,delayed mg 03/06/22 release Allergies Allergy/AdvReac Type Severity Reaction Status Date / Time clindamycin Allergy Unknown Unknown Verified 04/02/22 13:29 latex Allergy Unknown Unknown Verified 04/02/22 13:29 paroxetine Allergy Unknown Unknown Verified 04/02/22 13:29 morphine Allergy Itching Verified 04/02/22 13:29 Review of Systems Review of Systems: CONSTITUTIONAL: Denies fever, chills, or sweats. EYES: Denies visual changes, redness, or discharge. ENT: Denies rhinorrhea, congestion, sore throat, or otalgia. CARDIOVASCULAR: Denies chest pain, palpitations, or edema. RESPIRATORY: Denies cough or dyspnea. GASTROINTESTINAL: Denies abdominal pain, nausea, vomiting, or diarrhea. GENITOURINARY: Denies dysuria or hematuria. SKIN: See HPI MUSCULOSKELETAL: Denies back pain, joint pain, or myalgia. NEUROLOGIC: Denies headache, numbness, or weakness. PSYCHIATRIC: Denies anxiety or depression. [facility] Past Medical History Medical History Asthma Bronchitis Cirrhosis Diabetes mellitus Fatty liver Hyperlipidemia Morbid obesity NSAID long-term use Rheumatoid arthritis Surgical History Surgical History History of cholecystectomy History of corneal transplant Left eye, 2013 Hx of appendectomy Family History Family History Father Hypertension Sibling Hypertension Thyroid disorder Sibling Diabetes mellitus Mother Diabetes mellitus Hx of heart artery stent S/P triple vessel bypass Thyroid disorder Social History Social History Social History: The patient lives with her fiance. She has never been . She is not working. She does not receive any disability. She has no children. She does not have anybody does need to be her durable power state attorney. The patient stated that she is a full code and that we can resuscitate her twice but
[2022-04-02] MEDS: SULFAMETHOXAZOLE/TRIMETHOPRIM 800/160 MG DS TABLET 1 TAB PO (15:12)
[2022-04-02 15:21] VITALS: BP 128/87; PULSE 98; RESP 15; TEMP 36.5; O2SAT 100
== END 2022-04-02 15:28 | disposition home or self-care (01) ==
PROVIDERS: Emergency Provider Emergency Medicine
DX: L02.811 Cutaneous abscess of head [any part, except face] (principal); J45.909 Unspecified asthma, uncomplicated; K74.60 Unspecified cirrhosis of liver; E11.9 Type 2 diabetes mellitus without complications; E78.5 Hyperlipidemia, unspecified; M06.9 Rheumatoid arthritis, unspecified; E66.01 Morbid (severe) obesity due to excess calories; Z68.29 Body mass index [BMI] 29.0-29.9, adult; Z94.7 Corneal transplant status; Z87.891 Personal history of nicotine dependence; Z79.4 Long term (current) use of insulin; Z79.84 Long term (current) use of oral hypoglycemic drugs
CPT/HCPCS: 99283; A9270

== ENCOUNTER 2023-09-18 16:39 | Emergency (ER) | payer MEDICAID, SELFPAY ==
--- NOTE | ~2023-09-18 | CT_ITS ---
EXAMINATION: CT abdomen pelvis w con DATE: 09/18/2023 20:30 INDICATION: Flank pain. Abdominal pain. Nausea. TECHNIQUE: Computed tomography (CT) of the abdomen and pelvis was performed with 100 mL Omnipaque 350 intravenous contrast. Automated exposure control and iterative reconstruction technique were employe d. The dose-length product was 567.16 mGy-cm. COMPARISON: CT abdomen pelvis 04/09/2021 FINDINGS: The visualized portions of the lung bases demonstrate mild atelectasis. No pleural effusion . The heart size is normal. No pericardial effusion. There is liver surface nodularity, consistent wi th cirrhosis. There is mild splenomegaly measuring 15.5 cm. There is a periumbilical portacaval shunt . The pancreas and adrenal glands are normal. There is cortical thinning of right kidney. There is a 10 mm cyst in left kidney. There are bilateral striated nephrograms, consistent with pyelonephritis. There are no pathologically enlarged lymph nodes. There is no free intraperitoneal fluid. There are n o dilated loops of bowel. There are changes of appendectomy. There is mild thoracic and lumbar spondy losis. IMPRESSION: 1. Bilateral acute pyelonephritis. 2. Cirrhosis of the liver with portal venous hypertension. Reviewed, dictated and finalized at location E.
[2023-09-18 16:43] VITALS: BP 111/79; PULSE 110; RESP 16; TEMP 36.3; O2SAT 100
[2023-09-18 18:12] LABS: Basophils Percent Auto 0.3 % (0.2-1.2); Eosinophils Absolute Auto 0.1 K/mm3 (0-0.3); Eosinophils Percent Auto 1.1 % (0-4.4); Hematocrit 39.5 % (37.0-47.0); Hemoglobin 13.5 g/dL (12.0-15.0); Immature Granulocyte Absolute 0.02 K/mm3 (0.00-0.031); Immature Granulocyte Percent A 0.3 % (0-0.5); Lymphocytes Absolute Auto 1.14 K/mm3 (0.9-3.2); Lymphocytes Percent Auto 18.4 % (18.3-44.2); Mean Corpuscular HGB Conc 34.2 g/dl (32-36); Mean Corpuscular Hemoglobin 28.5 pg (26-34); Mean Corpuscular Volume 83.3 fl (80-100); Mean Platelet Volume 10.3 fl (7.4-10.4); Monocytes Absolute Auto 0.7 K/mm3 (0.1-0.6); Monocytes Percent Auto 10.6 % (2.6-8.5); Neutrophils Absolute Auto 4.3 K/mm3 (1.3-6.7); Neutrophils Percent Auto 69.3 % (45.5-73.1); Platelet Count Result 173 k/mm3 (150-375); Red Blood Count 4.74 M/mm3 (4.2-5.4); Red Cell Distribution Width 11.9 % (11.5-14.5); White Blood Count 6.2 K/mm3 (4.5-10.0)
[2023-09-18 18:30] LABS: Alanine Aminotransferase 35 U/L (6-35); Albumin Level 4.2 g/dL (3.5-5.1); Alkaline Phosphatase 163 U/L (38-126); Anion Gap 8 mmol/L (4-12); Aspartate Amino Transferase 41 U/L (14-36); Bilirubin,Total 1.5 mg/dL (0.2-1.3); Blood Urea Nitrogen 15 mg/dL (7-17); Calcium 8.9 mg/dL (8.4-10.2); Carbon Dioxide 30 mmol/L (22-30); Chloride 97 mmol/L (98-107); Estimated CRCL calculation 82 ml/min; Estimated Glomerular Filt Rate > 60; Glucose 290 mg/dL (65-110); Lipase 33 U/L (23-300); Potassium 3.9 mmol/L (3.4-5.0); Sodium 135 mmol/L (137-145)
--- NOTE | 2023-09-18 18:52 | ED.ABDPAIN ---
HPI - Abdominal Pain General Chief Complaint: Urogenital-Female Stated Complaint: bilateral flank pain Time Seen by Provider: 09/18/23 17:58 Source: patient Mode of arrival: ambulatory Limitations: no limitations History of Present Illness HPI narrative: This is a 37 year old female that presents to the ER for bilateral flank pain. Ongoing today. Associated with nausea. Also reports foul smelling urine. Denies fever, vomiting, dysuria or hematuria. Related Data Home Medications Medication Instructions Recorded Confirmed albuterol sulfate 90 mcg/actuation 2 puff inhalation QID PRN Dyspnea 08/31/19 12/09/21 aerosol inhaler beclomethasone dipropionate 80 1 inh inhalation Q12H 08/31/19 12/09/21 mcg/actuation HFA breath activated aerosol (Qvar RediHaler) loratadine 10 mg tablet 10 mg PO DAILY 08/31/19 12/09/21 montelukast 10 mg tablet 10 mg PO DAILY 08/31/19 12/09/21 (Singulair) sertraline 100 mg tablet 200 mg PO BID 08/31/19 12/09/21 simvastatin 20 mg tablet 20 mg PO DAILY 08/31/19 12/09/21 sitagliptin phosphate 50 mg tablet 50 mg PO DAILY 12/09/21 12/09/21 (Januvia) tobramycin 0.3 % eye drops 1 drp ophthalmic (eye) DIRECTED 12/09/21 12/09/21 trazodone 100 mg tablet 100 mg PO DAILY 12/09/21 12/09/21 insulin glargine 100 unit/mL (3 unit subcut 03/06/22 mL) subcutaneous pen (Basaglar KwikPen U-100 Insulin) omeprazole 40 mg capsule,delayed mg 03/06/22 release Allergies Allergy/AdvReac Type Severity Reaction Status Date / Time clindamycin Allergy Unknown Unknown Verified 04/02/22 13:29 latex Allergy Unknown Unknown Verified 04/02/22 13:29 paroxetine Allergy Unknown Unknown Verified 04/02/22 13:29 morphine Allergy Itching Verified 04/02/22 13:29 Review of Systems Review of Systems: CONSTITUTIONAL: Denies fever GASTROINTESTINAL: Denies abdominal pain, nausea. Denies vomiting GENITOURINARY: Denies dysuria or hematuria. All systems reviewed & are unremarkable except as noted in HPI and below PMFSH Past Medical History Medical History Asthma Bronchitis Cirrhosis Diabetes mellitus Fatty liver Hyperlipidemia Morbid obesity NSAID long-term use Rheumatoid arthritis Surgical History Surgical History History of cholecystectomy History of corneal transplant Left eye, 2013 Hx of appendectomy Family History Family History Father Hypertension Sibling Hypertension Thyroid disorder Sibling Diabetes mellitus Mother Diabetes mellitus Hx of heart artery stent S/P triple vessel bypass Thyroid disorder Social History Social History Social History: The patient lives with her fiance. She has never been . She is not working. She does not receive any disability. She has no children. 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 The patient stated that she is a full code and that we can resuscitate her twice but then stop after that. The patient no longer smokes. She denies any alcohol marijuana or illicit drug use. She stop smoking in 2011. Smoking status: Former smoker Tobacco type: cigarettes Smoking end date: 03/21/11 Alcohol intake: former Substance use: former Substance use type: marijuana, crack/cocaine and methamphetamine Last use: 2011 Living arrangements: with family Occupation/Education: unemployed Gender identity (if verbalized by the patient): Female Spiritual care concerns: No Agree to blood products: Yes Exam Narrative: GENERAL: Well-appearing, well-nourished, and in no acute distress. HEAD: Normocephalic, atraumatic. EYES: EOMI. CHEST: Clear to auscultation. No respiratory distress. No wheezes rales or rhonchi HEART: Regular rate and rhythm. No murmur heard. Normal peripheral pulses. A
[2023-09-18] MEDS: KETOROLAC 15 MG/ML VIAL (*BKC) IV PUSH (19:12)
[2023-09-18] MEDS: ONDANSETRON INJ 4 MG/2 ML VIAL IV PUSH (19:12)
[2023-09-18] MEDS: SODIUM CHLORIDE 0.9% IV 1,000 ML 999 ML IV CONT (19:12)
[2023-09-18 19:17] VITALS: BP 149/92; PULSE 109; RESP 20; O2SAT 98
--- NOTE | 2023-09-18 19:18 | PC.NURSE ---
Assumed care of pt at this time, report from Kwesi DAILY
[2023-09-18 19:24] LABS: Appearance Urine Turbid (Clear); Bacteria Urine 4+ /hpf; Bilirubin Urine 1+ (Negative); Blood Urine 3+ (Negative); Color Urine Dark Yellow (Yellow); Glucose Urine UA 2+ mg/dL (Negative); Ketones Urine Trace mg/dL (Negative); Leukocyte Esterase Ur 3+ LEU/UL (Negative); Need Manual Microscopic Reviewed; Nitrate Urine Negative (Negative); Non Pathogenic Casts >20; Protein Urine 2+ mg/dL (Negative); RBC Urine 51-100 /hpf (0-2); Squamous Epithelial Cell Urine Moderate /hpf (Few); WBC Urine >100 /hpf (0-3); pH Urine 5.5 (5.0-9.0)
[2023-09-18 19:26] LABS: Add Urine Microscopic? YES
[2023-09-18 20:01] LABS: Pregnancy On Board Control Positive
[2023-09-18 20:02] LABS: Urine Pregnancy Test Negative
--- NOTE | 2023-09-18 20:18 | PC.NURSE ---
Addendum entered by Graciela Landrum RN 09/18/23 20:18: Pt to CT, not ED Original Note: Pt to ED via wheelchair at this time.
[2023-09-18 20:43] VITALS: BP 91/62; PULSE 90; RESP 21; O2SAT 100
[2023-09-18 21:18] VITALS: BP 102/65; PULSE 90; RESP 20; O2SAT 100
== END 2023-09-18 21:20 | disposition home or self-care (01) ==
PROVIDERS: Emergency Provider Physician Assistant
DX: N10 Acute pyelonephritis (principal); J45.909 Unspecified asthma, uncomplicated; E11.9 Type 2 diabetes mellitus without complications; E78.5 Hyperlipidemia, unspecified; E66.01 Morbid (severe) obesity due to excess calories; K74.60 Unspecified cirrhosis of liver; K76.6 Portal hypertension; M06.9 Rheumatoid arthritis, unspecified; Z68.27 Body mass index [BMI] 27.0-27.9, adult; Z94.7 Corneal transplant status; Z87.891 Personal history of nicotine dependence; Z90.49 Acquired absence of other specified parts of digestive tract; Z79.899 Other long term (current) drug therapy; Z79.84 Long term (current) use of oral hypoglycemic drugs; Z79.4 Long term (current) use of insulin
CPT/HCPCS: 36415; 74177; 80053; 81001; 81025; 83690; 85025; 87077; 87086; 87088; 87186; 96361; 96365; 96375; 99284; J0696; J1885; J2405; J7030; Q9967

== ENCOUNTER 2024-02-15 18:31 | Emergency (ER) | payer OTHER, SELFPAY ==
--- NOTE | ~2024-02-15 | CT_ITS ---
EXAMINATION: CT chest abdomen pelvis wo con DATE: 02/15/2024 21:05 INDICATION: Back and sacral pain post fall TECHNIQUE: Computed tomography (CT) of the chest, abdomen, and pelvis was performed without intraveno us contrast. Automated exposure control and iterative reconstruction technique were employed. The dos e-length product was 1038.52 mGy-cm. COMPARISON: CT abdomen and pelvis dated 09/18/2023 FINDINGS: CHEST CT: Subtle tree-in-bud opacities in the left lower lobe consistent with endobronchial spread of disease w hich could be due to pneumonia, aspiration or pulmonary hemorrhage. Lungs are otherwise clear. No pul monary edema, pleural effusion or pneumothorax. Heart size is normal. Very small pericardial effusion . There is decreased density of the blood pool relative to myocardium consistent with anemia. Thoraci c aorta is normal in caliber. Distal tip of a left internal jugular central venous catheter at the muprhy perior cavoatrial junction. No pathologically enlarged thoracic lymphadenopathy. Bone graft and later al plate and screw fixation at a fracture at the right humeral neck. ABDOMEN/PELVIS CT: Percutaneous gastrostomy tube bulb in the body the stomach. Nodular liver surface consistent with cir rhosis. Cholecystectomy clips at the gallbladder fossa. There is Splenomegaly consistent with seconda ry portal venous hypertension. Pancreas, right adrenal gland and kidney are normal. There is minimal amount of fluid tracking along the anterior left pararenal space with minimal stranding about the cau marie margin of the spleen, the left adrenal gland and left kidney is which is of indeterminate etiolog y. A single represent entire family and all postoperative change of prior appendectomy with sutures a nd surgical clips at the near the tip the cecum. No bowel obstruction or abnormal bowel wall thickeni ng. Bladder is normal. Uterus and bilateral adnexa are unremarkable. Minimal likely physiologic free fluid in the cul-de-sac. No abscess or free intraperitoneal gas. There is soft tissue gas within the subcutaneous fat at the anterior right lower quadrant likely relate to subcutaneous injection. There are extensive vascular calcifications of many of the arteries in the abdomen, pelvis or proximal thig hs suggestive of diabetes. Mild lumbar spondylosis. There is a deep decubitus ulcer overlying the greta cyx with gas extending to within 3 mm the surface of the bone rather appears be an indistinct cortica l margin suspicious for osteomyelitis. IMPRESSION: 1. Tree-in-bud opacities in the left lower lobe consistent with endobronchial spread of disease most likely related to pneumonia differential including aspiration or pulmonary hemorrhage. 2. Cirrhosis and splenomegaly consistent with secondary portal venous hypertension. 3. Retroperitoneal stranding in the left upper quadrant with minimal fluid tracking along the anterio r left pararenal space which is of indeterminate etiology. Differential would include pyelonephritis, acute interstitial pancreatitis or potentially hemorrhage related to otherwise occult splenic injury . Correlate clinically and could consider repeat CT with intravenous contrast as clinically indicated . 4. Deep sacral decubitus ulcer with suggestion of early cortical erosion at the coccyx suspicious for osteomyelitis. Reviewed, dictated and finalized at location A. P ROOMS COORDINATOR IMPRESSION: 1. Tree-in-bud opacities in the left lower lobe consistent with endobronchial s pread of disease most likely related to pneumonia differential including aspira tion or pulmonary hemorrhage. 2. Cirrhosis and splenomegaly consistent with secondary portal venous hypertens ion. 3. Retroperitoneal stranding in the left upper quadrant with minimal fluid trac fatou along the anterior left pararenal space which is of indeterminate etiology . Differential would include pyelonephritis, acute interstitial pancreatitis or potentially hemorrhage related to otherwise occult splenic injury. Correlate c linically and could consider repeat CT with intravenous contrast as clinically indicated. 4. Deep sacral decubitus ulcer with suggestion of early cortical erosion at the coccyx suspicious for osteomyelitis.
--- NOTE | ~2024-02-15 | CT_ITS ---
EXAMINATION: CT brain wo con DATE: 02/15/2024 21:05 INDICATION: Fall with head injury TECHNIQUE: Computed tomography (CT) of the head was performed without intravenous contrast. Sagittal and coronal reconstructions were performed. The mA was adjusted according to patient size. Iterative reconstruction technique was employed. The dose-length product was 681.00 mGy-cm. COMPARISON: None FINDINGS: No fracture. No acute intracranial hemorrhage, acute infarction or abnormal extra axial fluid collect ion. Ventricles are normal and symmetric. No mass/mass effect. The left intraocular lens is not visua lized likely related to a reported prior corneal transplant. The orbits are otherwise normal. Small f ocus of mucosal thickening or mucous within one of the left ethmoid sinuses. Remaining paranasal sinu ses are clear. Small right mastoid effusion. IMPRESSION: 1. Normal brain. No fracture or acute intracranial process. Reviewed, dictated and finalized at location A. STRIAL COOK
--- NOTE | ~2024-02-15 | XR_ITS ---
EXAMINATION: XR chest 1V portable DATE: 02/15/2024 20:45 INDICATION: PICC line verification TECHNIQUE: frontal view of the chest was obtained. COMPARISON: Chest radiograph dated 09/22/2016 FINDINGS: Left internal versus external jugular central venous catheter with distal tip near the superior cavoa trial junction. Lungs are clear with no focal airspace opacities, pulmonary edema, pleural effusion o r pneumothorax. The cardiomediastinal silhouette is normal. Lateral plate and screw fixation and poss ible bone grafting at the fracture of the surgical neck of the proximal right humerus. There is a falguni ewhat permeative appearance to the bone along the fracture margin suggesting a possible pathologic fr acture. Correlate with clinical history. IMPRESSION: 1. Left cervical reported peripherally inserted central venous catheter with distal tip at the superi or cavoatrial junction. 2. No acute cardiopulmonary disease. 3. Permeative appearance to the bone at internally fixed and likely bone grafted fracture the proxima l right humerus raising suspicion for pathologic fracture. Correlate with clinical history. Reviewed, dictated and finalized at location A. ROOM TENDER IMPRESSION: 1. Left cervical reported peripherally inserted central venous catheter with di stal tip at the superior cavoatrial junction. 2. No acute cardiopulmonary disease. 3. Permeative appearance to the bone at internally fixed and likely bone grafte d fracture the proximal right humerus raising suspicion for pathologic fracture . Correlate with clinical history.
--- NOTE | ~2024-02-15 | CT_ITS ---
EXAMINATION: CT cervical spine wo con DATE: 02/15/2024 21:05 INDICATION: Neck pain post fall with head injury TECHNIQUE: Computed tomography (CT) of the cervical spine was performed without intravenous contrast. Automated exposure control and iterative reconstruction technique were employed. The dose-length pro duct was 442.82 mGy-cm. COMPARISON: None FINDINGS: Alignment is normal. Vertebral body heights are normal. No fracture. Disc heights are normal. There i s small amount of ossification along the posterior longitudinal ligament resulting in mild central ca nal stenosis at C4 and C5. There is multilevel mild cervical facet and uncovertebral osteoarthritis. This contributes to mild neural foraminal stenosis on the left at C3-C4. Left internal jugular centra l venous catheter extending to the superior vena cava and beyond the inferior margin of the field-of- view. Mild atelectasis related to expiratory phase of imaging the visualized upper lungs. IMPRESSION: 1. Minimal degenerative changes in the cervical spine. No acute osseous abnormality. Reviewed, dictated and finalized at location A. TRIC DEICER INSPECTOR IMPRESSION: 1. Minimal degenerative changes in the cervical spine. No acute osseous abnorma lity.
[2024-02-15 18:36] VITALS: BP 116/72; PULSE 105; RESP 18; TEMP 36.7; O2SAT 97
[2024-02-15 20:12] VITALS: BP 103/75; PULSE 95; RESP 16; O2SAT 98
[2024-02-15] MEDS: ALTEPLASE 2 MG VIAL (CATHFLO) IV PUSH ×2 (21:35→23:39)
[2024-02-15 22:27] LABS: Basophils Percent Auto 0.5 % (0.2-1.2); Eosinophils Absolute Auto 0.2 K/mm3 (0-0.3); Eosinophils Percent Auto 2.6 % (0-4.4); Hematocrit 23.5 % (37.0-47.0); Hemoglobin 7.3 g/dL (12.0-15.0); Immature Granulocyte Absolute 0.01 K/mm3 (0.00-0.031); Immature Granulocyte Percent A 0.2 % (0-0.5); Lymphocytes Absolute Auto 1.19 K/mm3 (0.9-3.2); Lymphocytes Percent Auto 18.1 % (18.3-44.2); Mean Corpuscular HGB Conc 31.1 g/dl (32-36); Mean Corpuscular Volume 83.6 fl (80-100); Mean Platelet Volume 9.3 fl (7.4-10.4); Monocytes Absolute Auto 0.6 K/mm3 (0.1-0.6); Monocytes Percent Auto 8.6 % (2.6-8.5); Neutrophils Absolute Auto 4.6 K/mm3 (1.3-6.7); Platelet Count Result 207 k/mm3 (150-375); Red Blood Count 2.81 M/mm3 (4.2-5.4); Red Cell Distribution Width 13.9 % (11.5-14.5); White Blood Count 6.6 K/mm3 (4.5-10.0)
[2024-02-15] MEDS: HYDROmorphone HCL INJ (*CRX) 1 MG/ML SYR 0.5 MG IV PUSH (22:27)
[2024-02-15 22:40] LABS: Lactic Acid Reflex 0.9 mmol/L (0.7-2.0)
[2024-02-15 22:42] LABS: Alanine Aminotransferase 24 U/L (6-35); Albumin Level 3.2 g/dL (3.5-5.1); Alkaline Phosphatase 259 U/L (38-126); Anion Gap 6 mmol/L (4-12); Aspartate Amino Transferase 60 U/L (14-36); Bilirubin,Total 0.7 mg/dL (0.2-1.3); Blood Urea Nitrogen 19 mg/dL (7-17); CRP 2.5 mg/dL (<1.0); Calcium 8.4 mg/dL (8.4-10.2); Carbon Dioxide 32 mmol/L (22-30); Chloride 102 mmol/L (98-107); Estimated CRCL calculation 60 ml/min; Estimated Glomerular Filt Rate 56; Glucose 87 mg/dL (65-110); Potassium 4.1 mmol/L (3.4-5.0); Sodium 140 mmol/L (137-145)
[2024-02-15 22:50] VITALS: BP 116/81; PULSE 89; TEMP 36.8; O2SAT 96
[2024-02-15 22:50] LABS: Erythrocyte Sedimentation Rate > 140 mm/hr (0-20)
[2024-02-15 23:18] LABS: Procalcitonin 0.3 ng/mL
[2024-02-15] MEDS: WATER, STERILE FOR INJECTION 10 ML VIAL XX (23:40)
[2024-02-16] MEDS: HYDROmorphone HCL INJ (*CRX) 1 MG/ML SYR 0.5 MG IV PUSH ×2 (00:11→02:57)
[2024-02-16 00:40] VITALS: BP 120/75; PULSE 96; RESP 14; O2SAT 95
--- NOTE | 2024-02-16 01:06 | ED.GENADULT ---
HPI - General Adult General Chief complaint: Fall Stated complaint: FALL, PROBLEMS W/ PICC LINE Time Seen by Provider: 02/15/24 19:42 History of Present Illness HPI narrative: patient is a 38-year-old female who presents emergency department with chief complaint of ground level fall and PICC line complication the patient has had issues with her PICC line where is not currently drawing blood the patient is receiving IV antibiotics for osteomyelitis and a recent pneumonia patient is currently on meropenem at the facility the patient reports that she is getting up from a wheelchair to her bed lost her balance and fell landing on her buttocks patient reports he she has pain in the area where she has a sacral wound the patient has known osteomyelitis and is currently receiving IV antibiotics Related Data Home Medications Medication Instructions Recorded Confirmed albuterol sulfate 90 mcg/actuation 2 puff inhalation QID PRN Dyspnea 08/31/19 12/09/21 aerosol inhaler beclomethasone dipropionate 80 1 inh inhalation Q12H 08/31/19 12/09/21 mcg/actuation HFA breath activated aerosol (Qvar RediHaler) loratadine 10 mg tablet 10 mg PO DAILY 08/31/19 12/09/21 montelukast 10 mg tablet 10 mg PO DAILY 08/31/19 12/09/21 (Singulair) sertraline 100 mg tablet 200 mg PO BID 08/31/19 12/09/21 simvastatin 20 mg tablet 20 mg PO DAILY 08/31/19 12/09/21 sitagliptin phosphate 50 mg tablet 50 mg PO DAILY 12/09/21 12/09/21 (Januvia) tobramycin 0.3 % eye drops 1 drp ophthalmic (eye) DIRECTED 12/09/21 12/09/21 trazodone 100 mg tablet 100 mg PO DAILY 12/09/21 12/09/21 insulin glargine 100 unit/mL (3 unit subcut 03/06/22 mL) subcutaneous pen (Basaglar KwikPen U-100 Insulin) omeprazole 40 mg capsule,delayed mg 03/06/22 release Allergies Allergy/AdvReac Type Severity Reaction Status Date / Time clindamycin Allergy Unknown Unknown Verified 04/02/22 13:29 latex Allergy Unknown Unknown Verified 04/02/22 13:29 paroxetine Allergy Unknown Unknown Verified 04/02/22 13:29 morphine Allergy Itching Verified 04/02/22 13:29 Review of Systems Review of Systems: A 10 system review of systems was completed on the patient and is negative except for what is stated in the HPI. Nursing and ancillary documentation was reviewed. [facility] Past Medical History Medical History Asthma Bronchitis Cirrhosis Diabetes mellitus Fatty liver Hyperlipidemia Morbid obesity NSAID long-term use Rheumatoid arthritis Surgical History Surgical History History of cholecystectomy History of corneal transplant Left eye, 2013 Hx of appendectomy Family History Family History Father Hypertension Sibling Hypertension Thyroid disorder Sibling Diabetes mellitus Mother Diabetes mellitus Hx of heart artery stent S/P triple vessel bypass Thyroid disorder Social History Social History Social History: The patient lives with her fiance. She has never been . She is not working. She does not receive any disability. She has no children. 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 The patient stated that she is a full code and that we can resuscitate her twice but then stop after that. The patient no longer smokes. She denies any alcohol marijuana or illicit drug use. She stop smoking in 2011. Smoking status: Former smoker Tobacco type: cigarettes Smoking end date: 03/21/11 Alcohol intake: former Substance use: former Substance use type: marijuana, crack/cocaine and methamphetamine Last use: 2011 Living arrangements: with family Occupation/Education: unemployed Gender identity (if verbalized by the patient): Female Spiritual care concerns: No Agree to blood products: Yes Exam Narrative: GENERAL: chronically ill-appearing, well-nourished, and in no acute distress. HEAD: Normocephalic, atraumatic. EYES: PERRLA and EOMI. ENT: Nares clear, no rhinorrhea or epistaxis. Mucous membranes moist. NECK: Supple. CHEST: Clear to auscultation. No respiratory distress. PICC line present to the left upper extremity HEART: Regular rate and rhythm. No murmur heard. Normal peripheral pulses. ABDOMEN: Soft, nontender, nondistended, normal active bowel sounds. PEG tube in place EXTREMITIES: Normal range of motion. No edema. SKIN: Warm, dry, no rash. NEURO: No focal deficits. Alert and oriented x3. PSYCH: Normal mood and affect. Course Vital Signs Vital signs: Vital Signs Temperature 36.7 C 02/15/24 18:36 Pulse Rate 105 H 02/15/24 18:36 Respiratory Rate 18 02/15/24 18:36 Blood Pressure 116/72 02/15/24 18:36 Pulse Oximetry 97 02/15/24 18:36 Temperature 36.8 C 02/15/24 22:50 Pulse Rate 96 02/16/24 00:40 Respiratory Rate 14 02/16/24 00:40 Blood Pressure 120/75 02/16/24 00:40 Pulse Oximetry 95 02/16/24 00:40 Medical Decision Making MDM Narrative Medical decision making narrative: differential diagnosis includes traumatic injury, PICC line malfunction laboratory studies were obtained on the patient showed a white count of 6.6 patient did have elevated ESR and CRP was elevated at 2.5 patient is currently receiving antibiotic therapy and is managed by the [facility] system CT head CT C-spine showed no acute abnormality CT of the chest abdomen pelvis showed 1. Tree-in-bud opacities in the left lower lobe consistent with endobronchial spread of disease most likely related to pneumonia differential including aspiration or pulmonary hemorrhage. 2. Cirrhosis and splenomegaly consistent with secondary portal venous hypertension. 3. Retroperitoneal stranding in the left upper quadrant with minimal fluid tracking along the anterior left pararenal space which is of indeterminate etiology. Differential would include pyelonephritis, acute interstitial pancreatitis or potentially hemorrhage related to otherwise occult splenic injury. Correlate clinically and could consider repeat CT with intravenous contrast as clinically indicated. 4. Deep sacral decubitus ulcer with suggestion of early cortical erosion at the coccyx suspicious for osteomyelitis the patient recently had pneumonia and was on a ventilator for an extended period time this most likely explains the tree-in-bud opacities the patient also has had pyelonephritis and is currently on IV antibiotics the patient is also on IV antibiotics for possible osteomyelitis as well Vital Signs Vital Signs: Vital Signs Temperature 36.7 C 02/15/24 18:36 Pulse Rate 105 H 02/15/24 18:36 Respiratory Rate 18 02/15/24 18:36 Blood Pressure 116/72 02/15/24 18:36 Pulse Oximetry 97 02/15/24 18:36 Temperature 36.8 C 02/15/24 22:50 Pulse Rate 96 02/16/24 00:40 Respiratory Rate 14 02/16/24 00:40 Blood Pressure 120/75 02/16/24 00:40 Pulse Oximetry 95 02/16/24 00:40 Lab Data 02/15/24 22:21 02/15/24 22:21 Labs: Lab Results 02/15/24 02/15/24 Range/Units 22:21 22:21 WBC 6.6 (4.5-10.0) K/mm3 RBC 2.81 L (4.2-5.4) M/mm3 Hgb 7.3 L D (12.0-15.0) g/dL Hct 23.5 L (37.0-47.0) % MCV 83.6 (80-100) fl MCH 26.0 (26-34) pg MCHC 31.1 L (32-36) g/dl RDW 13.9 (11.5-14.5) % Plt Count 207 (150-375) k/mm3 MPV 9.3 (7.4-10.4) fl Immature Gran % (Auto) 0.2 (0-0.5) % Neut % (Auto) 70.0 (45.5-73.1) % Lymph % (Auto) 18.1 L (18.3-44.2) % [place] % (Auto) 8.6 H (2.6-8.5) % Eos % (Auto) 2.6 (0-4.4) % Baso % (Auto) 0.5 (0.2-1.2) % Lymph # (Auto) 1.19 (0.9-3.2) K/mm3 [place] # (Auto) 0.6 (0.1-0.6) K/mm3 Eos # (Auto) 0.2 (0-0.3) K/mm3 Baso # (Auto) 0.0 (0.0-0.1) K/mm3 Abs Immat Gran (auto) 0.01 (0.00-0.031) K/mm3 Absolute Neuts (auto) 4.6 (1.3-6.7) K/mm3 Absolute Nucleated RBC 0.000 (0.0-0.012) K/mm3 Nucleated RBC % 0.0 (0.0-0.2) % ESR > 140 H (0-20) mm/hr Sodium 140 (137-145) mmol/L Potassium 4.1 (3.4-5.0) mmol/L Chloride 102 (98-107) mmol/L Carbon Dioxide 32 H (22-30) mmol/L Anion Gap 6 (4-12) mmol/L BUN 19 H (7-17) mg/dL Creatinine 1.10 H (0.7-1.0) mg/dL Estim Creat Clear Calc 60 ml/min Estimated GFR 56 L (59 - ) Glucose 87 (65-110) mg/dL Lactic Acid 0.9 (0.7-2.0) mmol/L Calcium 8.4 (8.4-10.2) mg/dL Total Bilirubin 0.7 (0.2-1.3) mg/dL AST 60 H (14-36) U/L ALT 24 (6-35) U/L Alkaline Phosphatase 259 H (38-126) U/L C-Reactive Protein 2.5 H Cancelled (<1.0) mg/dL Total Protein 7.0 (6.3-8.2) g/dL Albumin 3.2 L (3.5-5.1) g/dL Procalcitonin 0.3 ng/mL Discharge Plan Discharge Clinical Impression: Fall from ground level, Sacral contusion, Occluded PICC line Patient Disposition: [facility] Living Condition: Stable Instructions: Antibiotic Form, Contusion in Adults (ED), Fall Prevention (ED), PICC (Peripherally Inserted Central Catheter) (DC) Additional Instructions: please follow-up with your doctors that are managing her wounds and your infection. Prescriptions: No Action trazodone 100 mg tablet 100 mg PO DAILY tobramycin 0.3 % drops 1 drp ophthalmic (eye) DIRECTED Januvia 50 mg tablet 50 mg PO DAILY baclofen 10 mg tablet 10 mg PO TID Qty: 15 0RF omeprazole 40 mg capsule,delayed release(DR/EC) insulin glargine [Basaglar KwikPen U-100 Insulin] 100 unit/mL (3 mL) insulin pen SUBCUT cephalexin 500 mg capsule 500 mg PO Q8H 7 Days Qty: 21 0RF mupirocin 2 % ointment 1 applic topical TID Qty: 15 0RF sertraline 100 mg Tablet 200 mg PO BID simvastatin 20 mg Tablet 20 mg PO DAILY montelukast [Singulair] 10 mg Tablet 10 mg PO DAILY albuterol sulfate 90 mcg/actuation Hfa Aerosol Inhaler 2 puff INHALATION QID PRN (Reason: Dyspnea) loratadine 10 mg Tablet 10 mg PO DAILY Qvar RediHaler 80 mcg/actuation Hfa Aerosol Breath Activated 1 inh INHALATION Q12H gabapentin 300 mg capsule 600 mg PO TID 5 Days Qty: 30 0RF sulfamethoxazole-trimethoprim [Bactrim DS] 800-160 mg tablet 1 tablet PO Q12H 10 Days Qty: 20 0RF cefdinir 300 mg capsule 300 mg PO Q12H 10 Days Qty: 20 0RF Follow-up/Referrals: UNKNOWN,DOCTOR [Primary Care Provider] -
[2024-02-16 04:00] VITALS: BP 124/66; PULSE 85; RESP 15; O2SAT 95
[2024-02-16 06:45] VITALS: BP 121/79; PULSE 92; RESP 14; O2SAT 99
--- NOTE | 2024-02-16 06:51 | PC.NURSE ---
Dressing on pt's pre-existing pressure wound was changed.
== END 2024-02-16 07:11 ==
PROVIDERS: Emergency Provider Emergency Medicine
DX: S30.0XXA Contusion of lower back and pelvis, initial encounter (principal); T82.594A Other mechanical complication of infusion catheter, initial encounter; J45.909 Unspecified asthma, uncomplicated; E11.69 Type 2 diabetes mellitus with other specified complication; M86.9 Osteomyelitis, unspecified; E78.5 Hyperlipidemia, unspecified; K74.60 Unspecified cirrhosis of liver; M06.9 Rheumatoid arthritis, unspecified; Z87.891 Personal history of nicotine dependence; Z79.4 Long term (current) use of insulin; Z79.899 Other long term (current) drug therapy; Z79.84 Long term (current) use of oral hypoglycemic drugs; W18.39XA Other fall on same level, initial encounter; Y84.8 Other medical procedures as the cause of abnormal reaction of the patient, or of later complication, without mention of misadventure at the time of the procedure
CPT/HCPCS: 36415; 70450; 71045; 71250; 72125; 74176; 80053; 83605; 84145; 85025; 85652; 86140; 96374; 96375; 96376; 99284; J1171; J2997

== ENCOUNTER 2024-02-16 17:12 | Emergency (ER) | payer MEDICAID, SELFPAY ==
--- NOTE | ~2024-02-16 | XR_ITS ---
XR chest 1V portable Ordering provider: Brandon Chiu MD History: 38 years Female with . central line placement confirmation . Comparison: None. FINDINGS: MEDIASTINUM: The cardiac silhouette is not enlarged. Left central line is seen with the tip overlying the superior vena cava area. LUNGS: No infiltrates, effusions or pneumothorax. OTHER: No free air under the diaphragm. Postoperative changes in the right humerus. IMPRESSION: No acute cardiopulmonary pathology. Reviewed, dictated and finalized at location [facility]
[2024-02-16 17:13] VITALS: BP 128/82; PULSE 99; RESP 18; TEMP 36.4; O2SAT 98
--- NOTE | 2024-02-16 17:23 | ED.GENADULT ---
HPI - General Adult General Chief complaint: Recheck/Abnormal Lab/Rx Stated complaint: CENTRAL LINE PROBLEMS Source: patient Limitations: no limitations History of Present Illness HPI narrative: 38 YEARS OLD FEMALE CAME TO THE ED BY AMBULANCE WITH HALFWAY BECAUSE OF THE PICC LINE AT THE LEFT UPPER CHEST IS NOT WORKING USUAL. PATIENT IS TELLING ME THAT SHE GOT UP TO GO TO THE BATHROOM AND THE ANTIBIOTIC INFUSION WAS ON, SUDDENLY BLOOD STARTED COMING OUT THROUGH THE PICC LINE. ON ARRIVAL TO THE ED, NURSE EVALUATION SHOWED THE PICC LINE IS FUNCTIONAL BOWL, WITHDRAWING AND INFUSION WAS OKAY,. PATIENT IS TELLING ME THAT SHE WOULD LIKE A PAIN SHOT. THE PATIENT ON MEROPENEM FOR VERTEBRAL OSTEOMYELITIS Related Data Home Medications Medication Instructions Recorded Confirmed albuterol sulfate 90 mcg/actuation 2 puff inhalation QID PRN Dyspnea 08/31/19 12/09/21 aerosol inhaler beclomethasone dipropionate 80 1 inh inhalation Q12H 08/31/19 12/09/21 mcg/actuation HFA breath activated aerosol (Qvar RediHaler) loratadine 10 mg tablet 10 mg PO DAILY 08/31/19 12/09/21 montelukast 10 mg tablet 10 mg PO DAILY 08/31/19 12/09/21 (Singulair) sertraline 100 mg tablet 200 mg PO BID 08/31/19 12/09/21 simvastatin 20 mg tablet 20 mg PO DAILY 08/31/19 12/09/21 sitagliptin phosphate 50 mg tablet 50 mg PO DAILY 12/09/21 12/09/21 (Januvia) tobramycin 0.3 % eye drops 1 drp ophthalmic (eye) DIRECTED 12/09/21 12/09/21 trazodone 100 mg tablet 100 mg PO DAILY 12/09/21 12/09/21 insulin glargine 100 unit/mL (3 unit subcut 03/06/22 mL) subcutaneous pen (Basaglar KwikPen U-100 Insulin) omeprazole 40 mg capsule,delayed mg 03/06/22 release Allergies Allergy/AdvReac Type Severity Reaction Status Date / Time clindamycin Allergy Unknown Unknown Verified 04/02/22 13:29 latex Allergy Unknown Unknown Verified 04/02/22 13:29 paroxetine Allergy Unknown Unknown Verified 04/02/22 13:29 morphine Allergy Itching Verified 04/02/22 13:29 Review of Systems Review of Systems: All systems reviewed & are unremarkable except as noted in HPI and below PMFSH Past Medical History Medical History Asthma Bronchitis Cirrhosis Diabetes mellitus Fatty liver Hyperlipidemia Morbid obesity NSAID long-term use Rheumatoid arthritis Surgical History Surgical History History of cholecystectomy History of corneal transplant Left eye, 2013 Hx of appendectomy Family History Family History Father Hypertension Sibling Hypertension Thyroid disorder Sibling Diabetes mellitus Mother Diabetes mellitus Hx of heart artery stent S/P triple vessel bypass Thyroid disorder Social History Social History Social History: The patient lives with her fiance. She has never been . She is not working. She does not receive any disability. She has no children. 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 The patient stated that she is a full code and that we can resuscitate her twice but then stop after that. The patient no longer smokes. She denies any alcohol marijuana or illicit drug use. She stop smoking in 2011. Smoking status: Former smoker Tobacco type: cigarettes Smoking end date: 03/21/11 Alcohol intake: former Substance use: former Substance use type: marijuana, crack/cocaine and methamphetamine Last use: 2011 Living arrangements: with family Occupation/Education: unemployed Gender identity (if verbalized by the patient): Female Spiritual care concerns: No Agree to blood products: Yes Exam Narrative: GENERAL APPEARANCE: WELL-DEVELOPED, WELL-NOURISHED, ILL LOOKING SKIN: PICC LINE LEFT UPPER CHEST, NO SURROUNDING ERYTHEMA OR SWELLING OR DISCHARGE OR DRAINAGE HEAD: NORMOCEPHALIC, NONTRAUMATIC CHEST AND RESPIRATORY: AIRWAY PATENT, NO RESPIRATORY DISTRESS, NO ACCESSORY MUSCLE USE HEART: REGULAR RATE/RHYTHM NEUROLOGIC: ALERT AND ORIENTED ?3, Course Vital Signs Vital signs: Vital Signs Temperature 36.4 C 02/16/24 17:13 Pulse Rate 99 02/16/24 17:13 Respiratory Rate 18 02/16/24 17:13 Blood Pressure 128/82 02/16/24 17:13 Pulse Oximetry 98 02/16/24 17:13 Temperature 36.4 C 02/16/24 17:13 Pulse Rate 99 02/16/24 17:13 Respiratory Rate 18 02/16/24 17:13 Blood Pressure 128/82 02/16/24 17:13 Pulse Oximetry 98 02/16/24 17:13 Medical Decision Making MDM Narrative Medical decision making narrative: PATIENT CAME TO THE ED BY AMBULANCE FROM HALFWAY WITH POSSIBLE PICC LINE MALFUNCTION. THE PICC LINE WAS CHECKED, EVALUATED BY OUR NURSE, WITHDRAW AND INFUSION WAS WITHIN NORMAL LIMIT. PATIENT RECEIVED 1 G OF MEROPENEM THROUGH THE CENTRAL LINE PRIOR TO DISCHARGE WITH NO COMPLICATIONS Vital Signs Vital Signs: Vital Signs Temperature 36.4 C 02/16/24 17:13 Pulse Rate 99 02/16/24 17:13 Respiratory Rate 18 02/16/24 17:13 Blood Pressure 128/82 02/16/24 17:13 Pulse Oximetry 98 02/16/24 17:13 Temperature 36.4 C 02/16/24 17:13 Pulse Rate 99 02/16/24 17:13 Respiratory Rate 18 02/16/24 17:13 Blood Pressure 128/82 02/16/24 17:13 Pulse Oximetry 98 02/16/24 17:13 Imaging Data Radiologist's impression: Impressions Chest X-Ray 02/16/24 17:32 IMPRESSION: No acute cardiopulmonary pathology. Critical Care Time Critical Care Time Critical Care Time: No Discharge Plan Discharge Clinical Impression: Bleeding from PICC line Patient Disposition: [facility] Skilled Nursing/Asst Living Condition: Stable Instructions: Antibiotic Form, How to Care for Your PICC (Peripherally Inserted Central Catheter) (ED) Prescriptions: No Action trazodone 100 mg tablet 100 mg PO DAILY tobramycin 0.3 % drops 1 drp ophthalmic (eye) DIRECTED Januvia 50 mg tablet 50 mg PO DAILY baclofen 10 mg tablet 10 mg PO TID Qty: 15 0RF omeprazole 40 mg capsule,delayed release(DR/EC) insulin glargine [Basaglar KwikPen U-100 Insulin] 100 unit/mL (3 mL) insulin pen SUBCUT cephalexin 500 mg capsule 500 mg PO Q8H 7 Days Qty: 21 0RF mupirocin 2 % ointment 1 applic topical TID Qty: 15 0RF sertraline 100 mg Tablet 200 mg PO BID simvastatin 20 mg Tablet 20 mg PO DAILY montelukast [Singulair] 10 mg Tablet 10 mg PO DAILY albuterol sulfate 90 mcg/actuation Hfa Aerosol Inhaler 2 puff INHALATION QID PRN (Reason: Dyspnea) loratadine 10 mg Tablet 10 mg PO DAILY Qvar RediHaler 80 mcg/actuation Hfa Aerosol Breath Activated 1 inh INHALATION Q12H gabapentin 300 mg capsule 600 mg PO TID 5 Days Qty: 30 0RF sulfamethoxazole-trimethoprim [Bactrim DS] 800-160 mg tablet 1 tablet PO Q12H 10 Days Qty: 20 0RF cefdinir 300 mg capsule 300 mg PO Q12H 10 Days Qty: 20 0RF Follow-up/Referrals: PHYSICIAN,WEIGHER AND CHARGER [Primary Care Provider] -
[2024-02-16] MEDS: MEROPENEM 1 GM/NS 100 ML 1 GM/100 ML BAG IVPB (17:50)
[2024-02-16] MEDS: HYDROmorphone HCL INJ (*CRX) 1 MG/ML SYR 0.5 MG IV PUSH (17:51)
[2024-02-16] MEDS: ONDANSETRON INJ 4 MG/2 ML VIAL IV PUSH (17:51)
[2024-02-16] MEDS: CENTRAL LINE FLUSH 10 ML IV PUSH (18:23)
[2024-02-16 18:39] VITALS: BP 123/72; PULSE 81; RESP 14; O2SAT 100
== END 2024-02-16 19:06 ==
PROVIDERS: Emergency Provider Emergency Medicine
DX: T82.838A Hemorrhage due to vascular prosthetic devices, implants and grafts, initial encounter (principal); M46.28 Osteomyelitis of vertebra, sacral and sacrococcygeal region; J45.909 Unspecified asthma, uncomplicated; E11.9 Type 2 diabetes mellitus without complications; E78.5 Hyperlipidemia, unspecified; K74.60 Unspecified cirrhosis of liver; M06.9 Rheumatoid arthritis, unspecified; Z94.7 Corneal transplant status; Z87.891 Personal history of nicotine dependence; Z90.49 Acquired absence of other specified parts of digestive tract; Z79.899 Other long term (current) drug therapy; Z79.4 Long term (current) use of insulin; Z79.84 Long term (current) use of oral hypoglycemic drugs; Z79.2 Long term (current) use of antibiotics; Y84.8 Other medical procedures as the cause of abnormal reaction of the patient, or of later complication, without mention of misadventure at the time of the procedure
CPT/HCPCS: 71045; 96365; 96375; 99284; J1171; J2185; J2405

== ENCOUNTER 2024-02-19 16:20 | Emergency (ER) | payer MEDICAID, SELFPAY ==
--- NOTE | ~2024-02-19 | CT_ITS ---
EXAMINATION: CT abdomen pelvis wo con DATE: 02/19/2024 20:57 INDICATION: abdominal pain TECHNIQUE: Computed tomography (CT) of the abdomen and pelvis was performed without intravenous contr ast. Automated exposure control and iterative reconstruction technique were employed. The dose-length product was 770.31 mGy-cm. COMPARISON: 02/15/2024. FINDINGS: Lower thorax: Scattered tree-in-bud opacities in the left lower lobe. Liver: Enlarged. Nodular border. Biliary/Gallbladder: Gallbladder is absent. No bile duct dilation. Pancreas: No mass or duct dilation. Spleen: Enlarged. Adrenals:No mass. Kidneys: No suspicious mass, obstructing stone, or hydronephrosis. Persistent left perinephric strand ing. GI tract: PEG tube, in good position No small or large bowel dilation. Appendix surgically absent. Mesentery/Peritoneum: No ascites, mass, or free air. Retroperitoneum: No mass. Atherosclerotic abdominal aortic and/or arterial calcifications. Pelvis: Pelvic organs are within normal limits. Soft Tissues: Diffuse ulcer at the level of the coccyx. Bones: No acute osseous finding. Similar sclerosis of the coccygeal bones, without definite new eros abdirahman change. IMPRESSION: Chronic atypical infection. Cirrhosis. Hepatosplenomegaly. Left perinephric stranding, may be secondary to pyelonephritis. Coccygeal decubitus ulcer with findings suggestive of chronic coccygeal osteomyelitis. Reviewed, dictated and finalized at location K. PLE WORKER IMPRESSION: Chronic atypical infection. Cirrhosis. Hepatosplenomegaly. Left perinephric stranding, may be secondary to pyelonephritis. Coccygeal decubitus ulcer with findings suggestive of chronic coccygeal osteomy elitis.
[2024-02-19 16:23] VITALS: BP 101/74; PULSE 109; RESP 18; TEMP 36.5; O2SAT 100
[2024-02-19 20:09] VITALS: BP 117/79; PULSE 103; PULSE 105; RESP 17; RESP 18; O2SAT 98; O2SAT 99
[2024-02-19] MEDS: HYDROmorphone HCL INJ (*CRX) 1 MG/ML SYR 0.5 MG IV PUSH (20:12)
[2024-02-19 20:16] VITALS: BP 116/62; PULSE 102; RESP 19; O2SAT 97
[2024-02-19 20:22] LABS: Basophils Percent Auto 0.4 % (0.2-1.2); Eosinophils Absolute Auto 0.1 K/mm3 (0-0.3); Eosinophils Percent Auto 1.7 % (0-4.4); Hematocrit 27.2 % (37.0-47.0); Hemoglobin 8.6 g/dL (12.0-15.0); Immature Granulocyte Absolute 0.02 K/mm3 (0.00-0.031); Immature Granulocyte Percent A 0.2 % (0-0.5); Lymphocytes Absolute Auto 1.39 K/mm3 (0.9-3.2); Lymphocytes Percent Auto 17.3 % (18.3-44.2); Mean Corpuscular HGB Conc 31.6 g/dl (32-36); Mean Corpuscular Hemoglobin 25.9 pg (26-34); Mean Corpuscular Volume 81.9 fl (80-100); Mean Platelet Volume 9.7 fl (7.4-10.4); Monocytes Absolute Auto 0.6 K/mm3 (0.1-0.6); Neutrophils Absolute Auto 5.9 K/mm3 (1.3-6.7); Neutrophils Percent Auto 73.4 % (45.5-73.1); Platelet Count Result 240 k/mm3 (150-375); Red Blood Count 3.32 M/mm3 (4.2-5.4); White Blood Count 8.1 K/mm3 (4.5-10.0)
[2024-02-19 20:31] LABS: Lactic Acid Reflex 0.8 mmol/L (0.7-2.0)
[2024-02-19 20:34] LABS: Alanine Aminotransferase 20 U/L (6-35); Albumin Level 3.8 g/dL (3.5-5.1); Alkaline Phosphatase 258 U/L (38-126); Anion Gap 7 mmol/L (4-12); Aspartate Amino Transferase 35 U/L (14-36); Bilirubin,Total 0.8 mg/dL (0.2-1.3); Blood Urea Nitrogen 22 mg/dL (7-17); Carbon Dioxide 30 mmol/L (22-30); Chloride 101 mmol/L (98-107); Estimated CRCL calculation 37 ml/min; Estimated Glomerular Filt Rate 31; Glucose 136 mg/dL (65-110); Magnesium 2.1 mg/dL (1.6-2.3); Sodium 138 mmol/L (137-145)
[2024-02-19 20:44] LABS: BEDSIDEPREGUCG Negative (Negative)
[2024-02-19 20:52] LABS: Add Urine Microscopic? YES; Appearance Urine Clear (Clear); Bacteria Urine None Seen /hpf; Bilirubin Urine Negative (Negative); Blood Urine Non-Hemolyzed Trace (Negative); Color Urine Yellow (Yellow); Glucose Urine UA Negative (Negative); Ketones Urine Negative (Negative); Leukocyte Esterase Ur 2+ LEU/UL (Negative); Nitrate Urine Negative (Negative); Non Pathogenic Casts 0-2; Protein Urine 1+ mg/dL (Negative); Specific Grav Ur 1.019 (1.001-1.035); Squamous Epithelial Cell Urine None Seen /hpf (Few); Urobilinogen Urine 0.2 mg/dL (<2.0); WBC Urine >100 /hpf (0-3); pH Urine 8.5 (5.0-9.0)
--- NOTE | 2024-02-19 21:15 | ED_ITS ---
HPI - General Adult General Chief complaint: Abdominal Pain Stated complaint: pain from g tube Time Seen by Provider: 02/19/24 19:22 History of Present Illness HPI narrative: Patient 38-year-old female who presents emergency department with chief complaint of abdominal pain patient reports that she has a G-tube for whenever she was hospitalized and on a vent for long-term the patient reports that the G- tube is causing her discomfort and reports that she is concerned about this the patient was sent from a local nursing facility to our facility to be evaluated Related Data Home Medications Medication Instructions Recorded Confirmed albuterol sulfate 90 mcg/actuation 2 puff inhalation QID PRN Dyspnea 08/31/19 12/09/21 aerosol inhaler beclomethasone dipropionate 80 1 inh inhalation Q12H 08/31/19 12/09/21 mcg/actuation HFA breath activated aerosol (Qvar RediHaler) loratadine 10 mg tablet 10 mg PO DAILY 08/31/19 12/09/21 montelukast 10 mg tablet 10 mg PO DAILY 08/31/19 12/09/21 (Singulair) sertraline 100 mg tablet 200 mg PO BID 08/31/19 12/09/21 simvastatin 20 mg tablet 20 mg PO DAILY 08/31/19 12/09/21 sitagliptin phosphate 50 mg tablet 50 mg PO DAILY 12/09/21 12/09/21 (Januvia) tobramycin 0.3 % eye drops 1 drp ophthalmic (eye) DIRECTED 12/09/21 12/09/21 trazodone 100 mg tablet 100 mg PO DAILY 12/09/21 12/09/21 insulin glargine 100 unit/mL (3 unit subcut 03/06/22 mL) subcutaneous pen (Basaglar KwikPen U-100 Insulin) omeprazole 40 mg capsule,delayed mg 03/06/22 release Allergies Allergy/AdvReac Type Severity Reaction Status Date / Time clindamycin Allergy Unknown Unknown Verified 04/02/22 13:29 latex Allergy Unknown Unknown Verified 04/02/22 13:29 paroxetine Allergy Unknown Unknown Verified 04/02/22 13:29 morphine Allergy Itching Verified 04/02/22 13:29 Review of Systems Review of Systems: A 10 system review of systems was completed on the patient and is negative except for what is stated in the HPI. Nursing and ancillary documentation was reviewed. [facility] Past Medical History Medical History Asthma Bronchitis Cirrhosis Diabetes mellitus Fatty liver Hyperlipidemia Morbid obesity NSAID long-term use Rheumatoid arthritis Surgical History Surgical History History of cholecystectomy History of corneal transplant Left eye, 2013 Hx of appendectomy Family History Family History Father Hypertension Sibling Hypertension Thyroid disorder Sibling Diabetes mellitus Mother Diabetes mellitus Hx of heart artery stent S/P triple vessel bypass Thyroid disorder Social History Social History Social History: The patient lives with her fiance. She has never been . She is not working. She does not receive any disability. She has no children. 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 The patient stated that she is a full code and that we can resuscitate her twice but then stop after that. The patient no longer smokes. She denies any alcohol marijuana or illicit drug use. She stop smoking in 2011. Smoking status: Former smoker Tobacco type: cigarettes Smoking end date: 03/21/11 Alcohol intake: former Substance use: former Substance use type: marijuana, crack/cocaine and methamphetamine Last use: 2011 Living arrangements: with family Occupation/Education: unemployed Gender identity (if verbalized by the patient): Female Spiritual care concerns: No Agree to blood products: Yes Exam Narrative: GENERAL: Well-appearing, well-nourished, and in no acute distress. HEAD: Normocephalic, atraumatic. EYES: PERRLA and EOMI. ENT: Nares clear, no rhinorrhea or epistaxis. Mucous membranes moist. NECK: Supple. CHEST: Clear to auscultation. No respiratory distress. HEART: Regular rate and rhythm. No murmur heard. Normal peripheral pulses. ABDOMEN: Soft, diffusely tender G-tube present in the abdominal wall no erythema no drainage around the site, nondistended, normal active bowel sounds. EXTREMITIES: Normal range of motion. No edema. SKIN: Warm, dry, no rash. NEURO: No focal deficits. Alert and oriented x3. PSYCH: Normal mood and affect. Course Vital Signs Vital signs: Vital Signs Temperature 36.5 C 02/19/24 16:23 Pulse Rate 109 H 02/19/24 16:23 Respiratory Rate 18 02/19/24 16:23 Blood Pressure 101/74 02/19/24 16:23 Pulse Oximetry 100 02/19/24 16:23 Oxygen Delivery Room Air 02/19/24 16:23 Temperature 36.5 C 02/19/24 16:23 Pulse Rate 100 02/19/24 21:35 Respiratory Rate 18 02/19/24 21:35 Blood Pressure 104/76 02/19/24 21:35 Pulse Oximetry 100 02/19/24 21:35 Oxygen Delivery Room Air 02/19/24 20:09 Medical Decision Making MDM Narrative Medical decision making narrative: Differential diagnosis include intra-abdominal infection, G-tube malfunction, c hronic pain, sepsis, Laboratory studies were obtained showed a white blood cell count that was not elevated lactic acid was normal the patient's hemoglobin has improved The patient was restarted back on meropenem after reviewing the cultures and also discussion with the patient's [facility] provider Vital Signs Vital Signs: Vital Signs Temperature 36.5 C 02/19/24 16:23 Pulse Rate 109 H 02/19/24 16:23 Respiratory Rate 18 02/19/24 16:23 Blood Pressure 101/74 02/19/24 16:23 Pulse Oximetry 100 02/19/24 16:23 Oxygen Delivery Room Air 02/19/24 16:23 Temperature 36.5 C 02/19/24 16:23 Pulse Rate 100 02/19/24 21:35 Respiratory Rate 18 02/19/24 21:35 Blood Pressure 104/76 02/19/24 21:35 Pulse Oximetry 100 02/19/24 21:35 Oxygen Delivery Room Air 02/19/24 20:09 Lab Data 02/19/24 20:12 02/19/24 20:12 Labs: Lab Results 02/19/24 02/19/24 02/19/24 Range/Units 20:12 20:39 20:43 WBC 8.1 (4.5-10.0) K/mm3 RBC 3.32 L (4.2-5.4) M/mm3 Hgb 8.6 L (12.0-15.0) g/dL Hct 27.2 L (37.0-47.0) % MCV 81.9 (80-100) fl MCH 25.9 L (26-34) pg MCHC 31.6 L (32-36) g/dl RDW 14.0 (11.5-14.5) % Plt Count 240 (150-375) k/mm3 MPV 9.7 (7.4-10.4) fl Immature Gran % (Auto) 0.2 (0-0.5) % Neut % (Auto) 73.4 H (45.5-73.1) % Lymph % (Auto) 17.3 L (18.3-44.2) % [place] % (Auto) 7.0 (2.6-8.5) % Eos % (Auto) 1.7 (0-4.4) % Baso % (Auto) 0.4 (0.2-1.2) % Lymph # (Auto) 1.39 (0.9-3.2) K/mm3 [place] # (Auto) 0.6 (0.1-0.6) K/mm3 Eos # (Auto) 0.1 (0-0.3) K/mm3 Baso # (Auto) 0.0 (0.0-0.1) K/mm3 Abs Immat Gran (auto) 0.02 (0.00-0.031) K/mm3 Absolute Neuts (auto) 5.9 (1.3-6.7) K/mm3 Absolute Nucleated RBC 0.000 (0.0-0.012) K/mm3 Nucleated RBC % 0.0 (0.0-0.2) % Sodium 138 (137-145) mmol/L Potassium 5.0 (3.4-5.0) mmol/L Chloride 101 (98-107) mmol/L Carbon Dioxide 30 (22-30) mmol/L Anion Gap 7 (4-12) mmol/L BUN 22 H (7-17) mg/dL Creatinine 1.80 H (0.7-1.0) mg/dL Estim Creat Clear Calc 37 ml/min Estimated GFR 31 L (59 - ) Glucose 136 H (65-110) mg/dL Lactic Acid 0.8 (0.7-2.0) mmol/L Calcium 9.0 (8.4-10.2) mg/dL Magnesium 2.1 (1.6-2.3) mg/dL Total Bilirubin 0.8 (0.2-1.3) mg/dL AST 35 (14-36) U/L ALT 20 (6-35) U/L Alkaline Phosphatase 258 H (38-126) U/L Total Protein 8.0 (6.3-8.2) g/dL Albumin 3.8 (3.5-5.1) g/dL Procalcitonin 0.4 ng/mL Urine Color Yellow (Yellow) Urine Appearance Clear (Clear) Urine pH 8.5 (5.0-9.0) Ur Specific [place] 1.019 (1.001-1.035) Urine Protein 1+ H (Negative) mg/dL Urine Glucose (UA) Negative (Negative) mg/dL Urine Ketones Negative (Negative) mg/dL Ur Blood (Man) Non-hemolyzed trace H (Negative) Urine Nitrate Negative (Negative) Urine Bilirubin Negative (Negative) Urine Urobilinogen 0.2 (<2.0) mg/dL Leukocyte Esterase Rfl 2+ H (Negative) SHIRLEY/UL Urine RBC 11-20 H (0-2) /hpf Urine WBC >100 H (0-3) /hpf Ur Squamous Epith Cells None seen (Few) /hpf Urine Bacteria None seen /hpf Urine Casts 0-2 POC Urine HCG, Qual Negative (Negative) Discharge Plan Discharge Clinical Impression: Abdominal pain, UTI (urinary tract infection) Patient Disposition: [facility] Living Condition: Stable Instructions: Antibiotic Form, Abdominal Pain (ED) Additional Instructions: But follow-up with her compressed gases tester about her feeding tube. Your restarted on IV antibiotics it is recommended that you follow-up with your specialist that are familiar with your individual care Prescriptions: No Action trazodone 100 mg tablet 100 mg PO DAILY tobramycin 0.3 % drops 1 drp ophthalmic (eye) DIRECTED Januvia 50 mg tablet 50 mg PO DAILY baclofen 10 mg tablet 10 mg PO TID Qty: 15 0RF omeprazole 40 mg capsule,delayed release(DR/EC) insulin glargine [Basaglar KwikPen U-100 Insulin] 100 unit/mL (3 mL) insulin pen SUBCUT cephalexin 500 mg capsule 500 mg PO Q8H 7 Days Qty: 21 0RF mupirocin 2 % ointment 1 applic topical TID Qty: 15 0RF sertraline 100 mg Tablet 200 mg PO BID simvastatin 20 mg Tablet 20 mg PO DAILY montelukast [Singulair] 10 mg Tablet 10 mg PO DAILY albuterol sulfate 90 mcg/actuation Hfa Aerosol Inhaler 2 puff INHALATION QID PRN (Reason: Dyspnea) loratadine 10 mg Tablet 10 mg PO DAILY Qvar RediHaler 80 mcg/actuation Hfa Aerosol Breath Activated 1 inh INHALATION Q12H gabapentin 300 mg capsule 600 mg PO TID 5 Days Qty: 30 0RF sulfamethoxazole-trimethoprim [Bactrim DS] 800-160 mg tablet 1 tablet PO Q12H 10 Days Qty: 20 0RF cefdinir 300 mg capsule 300 mg PO Q12H 10 Days Qty: 20 0RF Follow-up/Referrals: PHYSICIAN,PICKUP DRIVER [Primary Care Provider] - Time of Disposition: 22:33
[2024-02-19 21:31] LABS: Procalcitonin 0.4 ng/mL
[2024-02-19] MEDS: HYDROmorphone HCL INJ (*CRX) 1 MG/ML SYR IV PUSH ×2 (21:34→23:00)
[2024-02-19 21:35] VITALS: BP 104/76; PULSE 100; RESP 18; O2SAT 100
[2024-02-19] MEDS: MEROPENEM 1 GM/NS 100 ML 1 GM/100 ML BAG IVPB (23:02)
[2024-02-19 23:04] VITALS: BP 100/70; PULSE 100; RESP 16; O2SAT 99
== END 2024-02-19 23:44 ==
PROVIDERS: Emergency Provider Emergency Medicine
DX: R10.9 Unspecified abdominal pain (principal); N39.0 Urinary tract infection, site not specified; J45.909 Unspecified asthma, uncomplicated; E11.9 Type 2 diabetes mellitus without complications; E78.5 Hyperlipidemia, unspecified; K74.60 Unspecified cirrhosis of liver; M06.9 Rheumatoid arthritis, unspecified; Z94.7 Corneal transplant status; Z93.1 Gastrostomy status; Z87.891 Personal history of nicotine dependence; Z90.49 Acquired absence of other specified parts of digestive tract; Z79.84 Long term (current) use of oral hypoglycemic drugs; Z79.899 Other long term (current) drug therapy; Z79.4 Long term (current) use of insulin
CPT/HCPCS: 36415; 74176; 80053; 81001; 81025; 83605; 83735; 84145; 85025; 87086; 96365; 96375; 96376; 99284; J1171; J2185

== ENCOUNTER 2024-02-25 23:44 | Emergency (ER) | payer OTHER, SELFPAY ==
--- NOTE | ~2024-02-25 | XR_ITS ---
EXAMINATION: XR tibia fibula RT 2V DATE: 02/26/2024 01:30 INDICATION: Right lower leg pain. TECHNIQUE: 2 views of right tibia and fibula on 3 radiographs were obtained. COMPARISON: None. FINDINGS: Bone alignment is normal. No fracture. There is serpiginous sclerosis in proximal tibial di aphysis. Joint spaces are normal. IMPRESSION: 1. Serpiginous sclerosis in proximal tibial diaphysis, likely osteonecrosis. Reviewed, dictated and finalized at location A. ITY WORKER
--- NOTE | ~2024-02-25 | XR_ITS ---
EXAMINATION: XR abdomen/kub 1V DATE: 02/26/2024 01:30 INDICATION: Abdominal pain. TECHNIQUE: A supine view of the abdomen on 2 radiographs was obtained. COMPARISON: CT abdomen and pelvis 02/19/2024 FINDINGS: There are no dilated loops of bowel. There is a large volume of stool in the colon. There i s a gastrostomy tube in expected position. Surgical clips in the right upper quadrant are likely from cholecystectomy. IMPRESSION: 1. Nonobstructive bowel gas pattern. Reviewed, dictated and finalized at location A. T FURNACE SUPERVISOR
[2024-02-25 23:44] VITALS: BP 110/88; PULSE 99; RESP 20; TEMP 36.7; O2SAT 99
[2024-02-25 23:55] VITALS: O2SAT 100
[2024-02-26] VITALS: O2SAT 96
[2024-02-26 00:15] VITALS: O2SAT 99
--- NOTE | 2024-02-26 00:27 | ED_ITS ---
HPI - General Adult General Chief complaint: Unspecified Stated complaint: Pain at GTube site Time Seen by Provider: 02/26/24 00:09 History of Present Illness HPI narrative: Patient is a 30-year-old female who presents to the ER with chronic abdominal pain. She reports there is no acute, any new pain today, but she reports the pain has never stopped and the medications they gave me do not work. Patient reports she has been taking her oral antibiotics as prescribed when she was here a week ago. She reports ?it feels like someone is sitting on my stomach. Patient is requesting her G tube be removed by ER staff. She denies any fever, chest pain, shortness of breath. Patient also endorses right leg bruising that she first noticed today. She has an extensive history of substance abuse, chronic infections, diabetes. Related Data Home Medications Medication Instructions Recorded Confirmed albuterol sulfate 90 mcg/actuation 2 puff inhalation QID PRN Dyspnea 08/31/19 12/09/21 aerosol inhaler beclomethasone dipropionate 80 1 inh inhalation Q12H 08/31/19 12/09/21 mcg/actuation HFA breath activated aerosol (Qvar RediHaler) loratadine 10 mg tablet 10 mg PO DAILY 08/31/19 12/09/21 montelukast 10 mg tablet 10 mg PO DAILY 08/31/19 12/09/21 (Singulair) sertraline 100 mg tablet 200 mg PO BID 08/31/19 12/09/21 simvastatin 20 mg tablet 20 mg PO DAILY 08/31/19 12/09/21 sitagliptin phosphate 50 mg tablet 50 mg PO DAILY 12/09/21 12/09/21 (Januvia) tobramycin 0.3 % eye drops 1 drp ophthalmic (eye) DIRECTED 12/09/21 12/09/21 trazodone 100 mg tablet 100 mg PO DAILY 12/09/21 12/09/21 insulin glargine 100 unit/mL (3 unit subcut 03/06/22 mL) subcutaneous pen (Basaglar KwikPen U-100 Insulin) omeprazole 40 mg capsule,delayed mg 03/06/22 release Allergies Allergy/AdvReac Type Severity Reaction Status Date / Time clindamycin Allergy Unknown Unknown Verified 02/25/24 23:51 latex Allergy Unknown Unknown Verified 02/25/24 23:51 paroxetine Allergy Unknown Unknown Verified 02/25/24 23:51 morphine Allergy Itching Verified 02/25/24 23:51 Review of Systems Review of Systems: All systems reviewed & are unremarkable except as noted in HPI and below PMFSH Past Medical History Medical History Asthma Bronchitis Cirrhosis Diabetes mellitus Fatty liver Hyperlipidemia Morbid obesity NSAID long-term use Rheumatoid arthritis Surgical History Surgical History History of cholecystectomy History of corneal transplant Left eye, 2013 Hx of appendectomy Family History Family History Father Hypertension Sibling Hypertension Thyroid disorder Sibling Diabetes mellitus Mother Diabetes mellitus Hx of heart artery stent S/P triple vessel bypass Thyroid disorder Social History Social History Social History: The patient lives with her fiance. She has never been . She is not working. She does not receive any disability. She has no children. 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 The patient stated that she is a full code and that we can resuscitate her twice but then stop after that. The patient no longer smokes. She denies any alcohol marijuana or illicit drug use. She stop smoking in 2011. Smoking status: Former smoker Tobacco type: cigarettes Smoking end date: 03/21/11 Alcohol intake: former Substance use: former Substance use type: marijuana, crack/cocaine and methamphetamine Last use: 2011 Living arrangements: with family Occupation/Education: unemployed Gender identity (if verbalized by the patient): Female Spiritual care concerns: No Agree to blood products: Yes Exam Narrative: GENERAL: Ill-appearing, well-nourished, non-toxic, in mild distress as evidenced by pt crying. HEAD: Normocephalic, atraumatic. NECK: Supple. No adenopathy, no masses. RESPIRATORY: Airway patent, respirations nonlabored. Clear to auscultation bilaterally, no rales, rhonchi, wheezing. CARDIOVASCULAR: Regular rate and rhythm without murmurs, rubs, or gallops. Peripheral pulses 2+ and equal bilaterally. ABDOMINAL: Soft, tender with palpation, nondistended, no hepatosplenomegaly. Normoactive BS. MUSCULOSKELETAL: Moves all extremities. Strength/ROM intact without gross deformities. SKIN: Warm, dry, normal color. RLE multiple bruises, but no rashes noted. NEURO: A&O X3. Speech clear. Cranial nerves II-XII grossly intact. Steady gait. No ataxic movements. PSYCHIATRIC: Appropriate mood and affect. Normal interaction. Course Vital Signs Vital signs: Vital Signs Temperature 36.7 C 02/25/24 23:44 Pulse Rate 99 02/25/24 23:44 Respiratory Rate 20 02/25/24 23:44 Blood Pressure 110/88 02/25/24 23:44 Pulse Oximetry 99 02/25/24 23:44 Oxygen Delivery Room Air 02/25/24 23:44 Temperature 36.7 C 02/25/24 23:44 Pulse Rate 99 02/25/24 23:44 Respiratory Rate 20 02/25/24 23:44 Blood Pressure 110/88 02/25/24 23:44 Pulse Oximetry 99 02/25/24 23:44 Oxygen Delivery Room Air 02/25/24 23:44 Medical Decision Making MDM Narrative Medical decision making narrative: Patient is a 30-year-old female who presents to the ER with chronic abdominal p ain. She reports there is no acute, any new pain today, but she reports the pain has never stopped and the medications they gave me do not work. Patient reports she has been taking her oral antibiotics as prescribed when she was here a week ago. She reports ?it feels like someone is sitting on my stomach. Patient is requesting her G tube be removed by ER staff. She denies any fever, chest pain, shortness of breath. Patient also endorses right leg bruising that she first noticed today. She has an extensive history of substance abuse, chronic infections, diabetes. Labs Ordered: CBC, CMP, lipase, UA Imaging Ordered: KUB, right tib/fib x-ray Results: Patient's hemoglobin was 8.1 and hematocrit 25.7%, which is consistent with previous blood work. Her CMP indicated a sodium of 136, potassium 5.1, BUN of 27, creatinine of 1.4, GFR of 42, glucose of 122, AST of 58, and alk-phos of 328. Although these values are abnormal, these are all consistent with patient's previous blood work results. Pt's KUB indicated no acute findings. Her tib/fib x-ray also indicated no acute findings. Diagnosis: Chronic abdominal pain Patient Education/Shared MDM: Results shared with patient. There were no acute findings on patient's blood work or her imaging. Patient will have to follow-up with her privacy specialist regarding her G-tube removal. It appears patient's pain is consistent with her chronic abdominal pain and she should continue taking her medications as previously prescribed. She verbalizes understanding and is in agreement with plan to discharge home. Disposition/Plan: Patient is in agreement with current treatment plan. All questions answered. Vital signs stable at time of discharge. 0100-Upon reexamination patient is in no acute distress. 0200-Pt is sleeping soundly on her stretcher. Differential Diagnosis Differential Diagnosis: chronic abdominal pain, chronic cirrhosis, constipation Vital Signs Vital Signs: Vital Signs Temperature 36.7 C 02/25/24 23:44 Pulse Rate 99 02/25/24 23:44 Respiratory Rate 20 02/25/24 23:44 Blood Pressure 110/88 02/25/24 23:44 Pulse Oximetry 99 02/25/24 23:44 Oxygen Delivery Room Air 02/25/24 23:44 Temperature 36.7 C 02/25/24 23:44 Pulse Rate 99 02/25/24 23:44 Respiratory Rate 20 02/25/24 23:44 Blood Pressure 110/88 02/25/24 23:44 Pulse Oximetry 99 02/25/24 23:44 Oxygen Delivery Room Air 02/25/24 23:44 Lab Data Lab results reviewed: Yes I reviewed the patient's lab results. 02/26/24 00:46 02/26/24 00:46 Labs: Lab Results 02/26/24 Range/Units 00:46 WBC 6.0 (4.5-10.0) K/mm3 RBC 3.19 L (4.2-5.4) M/mm3 Hgb 8.1 L (12.0-15.0) g/dL Hct 25.7 L (37.0-47.0) % MCV 80.6 (80-100) fl MCH 25.4 L (26-34) pg MCHC 31.5 L (32-36) g/dl RDW 13.6 (11.5-14.5) % Plt Count 237 (150-375) k/mm3 MPV 9.6 (7.4-10.4) fl Immature Gran % (Auto) 0.2 (0-0.5) % Neut % (Auto) 66.6 (45.5-73.1) % Lymph % (Auto) 21.4 (18.3-44.2) % [place] % (Auto) 8.8 H (2.6-8.5) % Eos % (Auto) 2.7 (0-4.4) % Baso % (Auto) 0.3 (0.2-1.2) % Lymph # (Auto) 1.29 (0.9-3.2) K/mm3 [place] # (Auto) 0.5 (0.1-0.6) K/mm3 Eos # (Auto) 0.2 (0-0.3) K/mm3 Baso # (Auto) 0.0 (0.0-0.1) K/mm3 Abs Immat Gran (auto) 0.01 (0.00-0.031) K/mm3 Absolute Neuts (auto) 4.0 (1.3-6.7) K/mm3 Absolute Nucleated RBC 0.000 (0.0-0.012) K/mm3 Nucleated RBC % 0.0 (0.0-0.2) % Sodium 136 L (137-145) mmol/L Potassium 5.1 H (3.4-5.0) mmol/L Chloride 103 (98-107) mmol/L Carbon Dioxide 28 (22-30) mmol/L Anion Gap 5 (4-12) mmol/L BUN 27 H (7-17) mg/dL Creatinine 1.40 H (0.7-1.0) mg/dL Estim Creat Clear Calc 48 ml/min Estimated GFR 42 L (59 - ) Glucose 122 H (65-110) mg/dL Calcium 9.0 (8.4-10.2) mg/dL Total Bilirubin 0.5 (0.2-1.3) mg/dL AST 58 H (14-36) U/L ALT 11 (6-35) U/L Alkaline Phosphatase 328 H (38-126) U/L Total Protein 8.0 (6.3-8.2) g/dL Albumin 3.8 (3.5-5.1) g/dL Lipase 50 (23-300) U/L Imaging Data Attestation: I personally reviewed and interpreted this imaging study as follows: My impression: Patient's KUB indicates no acute abnormality. Her tib/fib x-ray indicates no acute abnormalities. Discharge Plan Discharge Clinical Impression: Abdominal pain, chronic, generalized, Traumatic ecchymosis of right lower leg Patient Disposition: [facility] Living Condition: Stable Instructions: Antibiotic Form, Chronic Abdominal Pain (DC) Additional Instructions: Please return to the ER with an worsening symptoms. Follow-up with primary care provider in the next 2-3 days. Take all medications as prescribed. Follow-up with your privacy specialist as soon as possible. Prescriptions: No Action trazodone 100 mg tablet 100 mg PO DAILY tobramycin 0.3 % drops 1 drp ophthalmic (eye) DIRECTED Januvia 50 mg tablet 50 mg PO DAILY baclofen 10 mg tablet 10 mg PO TID Qty: 15 0RF omeprazole 40 mg capsule,delayed release(DR/EC) insulin glargine [Basaglar KwikPen U-100 Insulin] 100 unit/mL (3 mL) insulin pen SUBCUT cephalexin 500 mg capsule 500 mg PO Q8H 7 Days Qty: 21 0RF mupirocin 2 % ointment 1 applic topical TID Qty: 15 0RF sertraline 100 mg Tablet 200 mg PO BID simvastatin 20 mg Tablet 20 mg PO DAILY montelukast [Singulair] 10 mg Tablet 10 mg PO DAILY albuterol sulfate 90 mcg/actuation Hfa Aerosol Inhaler 2 puff INHALATION QID PRN (Reason: Dyspnea) loratadine 10 mg Tablet 10 mg PO DAILY Qvar RediHaler 80 mcg/actuation Hfa Aerosol Breath Activated 1 inh INHALATION Q12H gabapentin 300 mg capsule 600 mg PO TID 5 Days Qty: 30 0RF sulfamethoxazole-trimethoprim [Bactrim DS] 800-160 mg tablet 1 tablet PO Q12H 10 Days Qty: 20 0RF cefdinir 300 mg capsule 300 mg PO Q12H 10 Days Qty: 20 0RF Follow-up/Referrals: PHYSICIAN,ELECTRICAL CONTROLS TECHNICIAN [Primary Care Provider] - Stand Alone Forms: Custodial Discharge Time of Disposition: 02:19
[2024-02-26] MEDS: diphenhydrAMINE HCl INJ 50 MG/ML VIAL 25 MG IV PUSH (00:47)
[2024-02-26] MEDS: HYDROmorphone HCL INJ (*CRX) 1 MG/ML SYR 0.5 MG IV PUSH (00:47)
[2024-02-26] MEDS: METOCLOPRAMIDE HCL INJ 10 MG/2 ML VIAL IV PUSH (00:47)
[2024-02-26 00:56] LABS: Basophils Percent Auto 0.3 % (0.2-1.2); Eosinophils Absolute Auto 0.2 K/mm3 (0-0.3); Eosinophils Percent Auto 2.7 % (0-4.4); Hematocrit 25.7 % (37.0-47.0); Hemoglobin 8.1 g/dL (12.0-15.0); Immature Granulocyte Absolute 0.01 K/mm3 (0.00-0.031); Immature Granulocyte Percent A 0.2 % (0-0.5); Lymphocytes Absolute Auto 1.29 K/mm3 (0.9-3.2); Lymphocytes Percent Auto 21.4 % (18.3-44.2); Mean Corpuscular HGB Conc 31.5 g/dl (32-36); Mean Corpuscular Hemoglobin 25.4 pg (26-34); Mean Corpuscular Volume 80.6 fl (80-100); Mean Platelet Volume 9.6 fl (7.4-10.4); Monocytes Absolute Auto 0.5 K/mm3 (0.1-0.6); Monocytes Percent Auto 8.8 % (2.6-8.5); Neutrophils Percent Auto 66.6 % (45.5-73.1); Platelet Count Result 237 k/mm3 (150-375); Red Blood Count 3.19 M/mm3 (4.2-5.4); Red Cell Distribution Width 13.6 % (11.5-14.5)
[2024-02-26 01:05] LABS: Alanine Aminotransferase 11 U/L (6-35); Albumin Level 3.8 g/dL (3.5-5.1); Alkaline Phosphatase 328 U/L (38-126); Anion Gap 5 mmol/L (4-12); Aspartate Amino Transferase 58 U/L (14-36); Bilirubin,Total 0.5 mg/dL (0.2-1.3); Blood Urea Nitrogen 27 mg/dL (7-17); Carbon Dioxide 28 mmol/L (22-30); Chloride 103 mmol/L (98-107); Estimated CRCL calculation 48 ml/min; Estimated Glomerular Filt Rate 42; Glucose 122 mg/dL (65-110); Lipase 50 U/L (23-300); Potassium 5.1 mmol/L (3.4-5.0); Sodium 136 mmol/L (137-145)
[2024-02-26] MEDS: SODIUM CHLORIDE 0.9% IV 1,000 ML 999 ML IV CONT (01:17)
[2024-02-26 02:31] VITALS: BP 138/96; PULSE 94; RESP 17; O2SAT 100
[2024-02-26 03:01] LABS: Add Urine Microscopic? YES; Appearance Urine Clear (Clear); Bacteria Urine None Seen /hpf; Bilirubin Urine Negative (Negative); Blood Urine Negative (Negative); Color Urine Yellow (Yellow); Glucose Urine UA Negative (Negative); Ketones Urine Negative (Negative); Leukocyte Esterase Ur 2+ LEU/UL (Negative); Need Manual Microscopic Reviewed; Nitrate Urine Negative (Negative); Non Pathogenic Casts 0-2; Protein Urine Negative (Negative); Specific Grav Ur 1.017 (1.001-1.035); Squamous Epithelial Cell Urine Few /hpf (Few); Urobilinogen Urine 0.2 mg/dL (<2.0); WBC Urine 21-50 /hpf (0-3)
--- NOTE | 2024-02-26 04:03 | PC.NURSE ---
EMS here to transport patient back to the [place].
== END 2024-02-26 04:03 ==
PROVIDERS: Emergency Provider Registered Nurse
DX: R10.9 Unspecified abdominal pain (principal); G89.29 Other chronic pain; J45.909 Unspecified asthma, uncomplicated; S80.11XA Contusion of right lower leg, initial encounter; K74.60 Unspecified cirrhosis of liver; E11.9 Type 2 diabetes mellitus without complications; E78.5 Hyperlipidemia, unspecified; M06.9 Rheumatoid arthritis, unspecified; Z93.1 Gastrostomy status; Z94.7 Corneal transplant status; Z87.891 Personal history of nicotine dependence; Z90.49 Acquired absence of other specified parts of digestive tract; Z79.84 Long term (current) use of oral hypoglycemic drugs; Z79.899 Other long term (current) drug therapy; Z79.4 Long term (current) use of insulin; X58.XXXA Exposure to other specified factors, initial encounter
CPT/HCPCS: 36415; 73590; 74018; 80053; 81001; 83690; 85025; 87086; 96361; 96374; 96375; 99284; J1171; J1200; J2765; J7030

== ENCOUNTER 2024-04-03 22:16 | Emergency (ER) | payer OTHER, SELFPAY ==
--- NOTE | ~2024-04-03 | CT_ITS ---
CT of the Abdomen and Pelvis: Indication: Abscess Technique: 2.5 mm axial scans were obtained through the abdomen and pelvis following intravenous adm inistration of 100 cc of Omnipaque 350. Dose reduction technique was used on this scan by utilizing a utomated exposure control and iterative reconstruction technique. The dose-length product (DLP) was 7 62.29 mGy-cm. COMPARISON: 02/19/2024 Findings: Scans through the lung bases are unremarkable. Liver demonstrates a mildly nodular contour. The pancreas, adrenals and kidneys are within normal pacheco its. Spleen is enlarged, measuring 15.6 cm in length. Cholecystectomy clips are present. No evidence of aortic aneurysm. No lymphadenopathy. No bowel obstruction or bowel wall thickening. Percutaneous gastrostomy tube in place. Images through the pelvis were performed. Urinary bladder unremarkable. No adnexal mass evident. No a scites. There is extensive soft tissue thickening over the lower sacrum/coccygeal region, with probable destr uctive change of the upper coccyx and S5 vertebral body. No distinct abscess evident. Probable inject ion granulomata in the anterior subcutaneous soft tissues right of midline. Impression: Findings compatible with osteomyelitis of the S5 vertebral body and coccyx, with overlying soft tissu e thickening. No distinct abscess evident. Probable cirrhotic change of the liver with associated splenomegaly. Reviewed, dictated and finalized at location . PARTS SALESPERSON Impression: Findings compatible with osteomyelitis of the S5 vertebral body and coccyx, wit h overlying soft tissue thickening. No distinct abscess evident. Probable cirrhotic change of the liver with associated splenomegaly.
[2024-04-03 22:06] VITALS: BP 93/67; PULSE 99; RESP 22; TEMP 36.9; O2SAT 98
[2024-04-03 22:45] LABS: Basophils Percent Auto 0.4 % (0.2-1.2); Eosinophils Absolute Auto 0.1 K/mm3 (0-0.3); Eosinophils Percent Auto 2.1 % (0-4.4); Hematocrit 29.5 % (37.0-47.0); Hemoglobin 9.1 g/dL (12.0-15.0); Immature Granulocyte Absolute 0.01 K/mm3 (0.00-0.031); Immature Granulocyte Percent A 0.2 % (0-0.5); Lymphocytes Absolute Auto 1.27 K/mm3 (0.9-3.2); Lymphocytes Percent Auto 24.4 % (18.3-44.2); Mean Corpuscular HGB Conc 30.8 g/dl (32-36); Mean Corpuscular Hemoglobin 25.6 pg (26-34); Mean Corpuscular Volume 82.9 fl (80-100); Mean Platelet Volume 10.8 fl (7.4-10.4); Monocytes Absolute Auto 0.4 K/mm3 (0.1-0.6); Monocytes Percent Auto 8.3 % (2.6-8.5); Neutrophils Absolute Auto 3.4 K/mm3 (1.3-6.7); Neutrophils Percent Auto 64.6 % (45.5-73.1); Platelet Count Result 153 k/mm3 (150-375); Red Blood Count 3.56 M/mm3 (4.2-5.4); Red Cell Distribution Width 14.1 % (11.5-14.5); White Blood Count 5.2 K/mm3 (4.5-10.0)
[2024-04-03 23:03] LABS: Alanine Aminotransferase 14 U/L (6-35); Albumin Level 3.6 g/dL (3.5-5.1); Alkaline Phosphatase 311 U/L (38-126); Anion Gap 5 mmol/L (4-12); Aspartate Amino Transferase 39 U/L (14-36); Bilirubin,Total 0.5 mg/dL (0.2-1.3); Blood Urea Nitrogen 26 mg/dL (7-17); Carbon Dioxide 31 mmol/L (22-30); Chloride 100 mmol/L (98-107); Estimated CRCL calculation 56 ml/min; Estimated Glomerular Filt Rate 52; Glucose 142 mg/dL (65-110); Lipase 18 U/L (23-300); Potassium 4.6 mmol/L (3.4-5.0); Sodium 136 mmol/L (137-145)
[2024-04-03 23:19] LABS: Add Urine Microscopic? YES; Appearance Urine Clear (Clear); Bacteria Urine None Seen /hpf; Bilirubin Urine Negative (Negative); Blood Urine Trace (Negative); Color Urine Yellow (Yellow); Glucose Urine UA Negative (Negative); Ketones Urine Negative (Negative); Leukocyte Esterase Ur 1+ LEU/UL (Negative); Nitrate Urine Negative (Negative); Protein Urine Negative (Negative); Squamous Epithelial Cell Urine None Seen /hpf (Few); Urobilinogen Urine 0.2 mg/dL (<2.0); WBC Urine 21-50 /hpf (0-3)
[2024-04-03] MEDS: SODIUM CHLORIDE 0.9% IV 2,500 ML 999 ML IV CONT (23:31)
[2024-04-03] MEDS: SODIUM CHLORIDE 0.9% IV 500 ML 999 ML (23:31)
[2024-04-03 23:40] LABS: BEDSIDEPREGUCG Negative (Negative)
[2024-04-04 00:12] LABS: Influenza A QL RT-PCR Negative (Negative); Influenza B QL RT-PCR Negative (Negative); RSV RNA, RT-PCR Negative (Negative); SARS-CoV-2 RNA PCR Negative (Negative)
[2024-04-04] MEDS: ACETAMINOPHEN 500 MG TABLET 1000 MG PO (00:46)
[2024-04-04] MEDS: KETOROLAC 15 MG/ML VIAL (*BKC) IV PUSH (00:47)
--- NOTE | 2024-04-04 04:08 | ED_ITS ---
HPI - General Adult General Chief complaint: Nausea/Vomiting/Diarrhea Stated complaint: N/V/D Time Seen by Provider: 04/03/24 22:23 History of Present Illness HPI narrative: This is a 38-year-old female presenting ED with chief complaint of nausea/ vomiting /diarrhea. Patient says that she has a boil on her buttock that is making her feel sick. She has had multiple episodes of nausea vomiting diarrhea. She denies fevers chills chest pain or difficulty breathing. Related Data Home Medications ?Medication ?Instructions ?Recorded ?Confirmed ?Last Taken ?Type albuterol sulfate 90 mcg/actuation 2 puff inhalation QID PRN Dyspnea 08/31/19 12/09/21 Unknown History aerosol inhaler beclomethasone dipropionate 80 1 inh inhalation Q12H 08/31/19 12/09/21 Unknown History mcg/actuation HFA breath activated aerosol (Qvar RediHaler) loratadine 10 mg tablet 10 mg PO DAILY 08/31/19 12/09/21 Unknown History montelukast 10 mg tablet 10 mg PO DAILY 08/31/19 12/09/21 Unknown History (Singulair) sertraline 100 mg tablet 200 mg PO BID 08/31/19 12/09/21 Unknown History simvastatin 20 mg tablet 20 mg PO DAILY 08/31/19 12/09/21 Unknown History sitagliptin phosphate 50 mg tablet 50 mg PO DAILY 12/09/21 12/09/21 Unknown History (Januvia) tobramycin 0.3 % eye drops 1 drp ophthalmic (eye) DIRECTED 12/09/21 12/09/21 Unknown History trazodone 100 mg tablet 100 mg PO DAILY 12/09/21 12/09/21 Unknown History insulin glargine 100 unit/mL (3 unit subcut 03/06/22 Unknown History mL) subcutaneous pen (Basaglar KwikPen U-100 Insulin) omeprazole 40 mg capsule,delayed mg 03/06/22 Unknown History release Allergies Allergy/AdvReac Type Severity Reaction Status Date / Time clindamycin Allergy Unknown Unknown Verified 02/25/24 23:51 latex Allergy Unknown Unknown Verified 02/25/24 23:51 paroxetine Allergy Unknown Unknown Verified 02/25/24 23:51 morphine Allergy Itching Verified 02/25/24 23:51 FOR[facility], [facility] Past Medical History Medical History Morbid obesity NSAID long-term use Bronchitis Asthma Rheumatoid arthritis Cirrhosis Fatty liver Hyperlipidemia Diabetes mellitus Surgical History Surgical History History of corneal transplant Left eye, 2014 History of cholecystectomy Hx of appendectomy Family History Family History Father Hypertension Sibling Hypertension Thyroid disorder Sibling Diabetes mellitus Mother Diabetes mellitus Hx of heart artery stent S/P triple vessel bypass Thyroid disorder Social History Social History Social History: The patient lives with her fiance. She has never been . She is not working. She does not receive any disability. She has no children. 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 The patient stated that she is a full code and that we can resuscitate her twice but then stop after that. The patient no longer smokes. She denies any alcohol marijuana or illicit drug use. She stop smoking in 2011. Smoking status: Former smoker Tobacco type: cigarettes Smoking end date: 03/21/11 Alcohol intake: former Substance use: former Substance use type: marijuana, crack/cocaine and methamphetamine Last use: 2011 Living arrangements: with family Occupation/Education: unemployed Gender identity (if verbalized by the patient): Female Spiritual care concerns: No Agree to blood products: Yes Exam 2 Narrative: APPEARANCE: No apparent distress. Head: atraumatic. EYES: EOMI, NOSE: Atraumatic NECK: Trachea midline RESPIRATORY: No increased rate of breathing CTAB CARDIOVASCULAR: RRR, no peripheral edema ABDOMINAL: Non-distended soft nontender MUSCULOSKELETAl: No obvious deformities NEURO: Alert. Moving 4/4 extremities SKIN:: Fluctuant mass central head over the upper glute PSYCHIATRIC: Normal affect Course Vital Signs Vital signs: Vital Signs Temperature 98.4 F 04/03/24 22:06 Pulse Rate 99 04/03/24 22:06 Respiratory Rate 22 H 04/03/24 22:06 Blood Pressure 93/67 L 04/03/24 22:06 Pulse Oximetry 98 04/03/24 22:06 Oxygen Delivery Room Air 04/03/24 22:06 Temperature 98.4 F 04/03/24 22:06 Pulse Rate 99 01/14/25 22:06 Respiratory Rate 22 H 04/03/24 22:06 Blood Pressure 93/67 L 04/03/24 22:06 Pulse Oximetry 98 04/03/24 22:06 Oxygen Delivery Room Air 04/03/24 22:06 Procedures Abscess I/D other: Date of Incision: 04/04/24 Side (if applicable): right (Glute) Local Anesthetic: lidocaine 1% and with epi Amount of anesthesia used (mL): 8 Technique: incised with #11 blade Amount of fluid expressed (mL): 5 Irrigation: Yes Packing used?: none I&D Results: Pus and Blood Medical Decision Making MDM Narrative Medical decision making narrative: -Course: 30-year-old female presenting with nausea vomiting diarrhea and a buttocks abscess. The abscess was incised and drained. Patient was given fluids antiemetics. She has been resting comfortably throughout her stay. Laboratory studies CT abdomen pelvis without acute findings. Patient will be discharged Bactrim for her abscess. Given return precautions. -DDX includes but is not limited to: Abscess, cellulitis gastroenteritis, viral syndrome -RX:bactrim Vital Signs Vital Signs: Vital Signs Temperature 98.4 F 04/03/24 22:06 Pulse Rate 99 04/03/24 22:06 Respiratory Rate 22 H 04/03/24 22:06 Blood Pressure 93/67 L 04/03/24 22:06 Pulse Oximetry 98 04/03/24 22:06 Oxygen Delivery Room Air 04/03/24 22:06 Temperature 98.4 F 04/03/24 22:06 Pulse Rate 99 04/03/24 22:06 Respiratory Rate 22 H 04/03/24 22:06 Blood Pressure 93/67 L 04/03/24 22:06 Pulse Oximetry 98 04/03/24 22:06 Oxygen Delivery Room Air 04/03/24 22:06 Lab Data 04/03/24 22:38 04/03/24 22:38 Labs: Lab Results 04/03/24 04/03/24 04/03/24 Range/Units 22:14 22:38 23:06 WBC 5.2 (4.5-10.0) K/mm3 RBC 3.56 L (4.2-5.4) M/mm3 Hgb 9.1 L (12.0-15.0) g/dL Hct 29.5 L (37.0-47.0) % MCV 82.9 (80-100) fl MCH 25.6 L (26-34) pg MCHC 30.8 L (32-36) g/dl RDW 14.1 (11.5-14.5) % Plt Count 153 (150-375) k/mm3 MPV 10.8 H (7.4-10.4) fl Immature Gran % (Auto) 0.2 (0-0.5) % Neut % (Auto) 64.6 (45.5-73.1) % Lymph % (Auto) 24.4 (18.3-44.2) % [place] % (Auto) 8.3 (2.6-8.5) % Eos % (Auto) 2.1 (0-4.4) % Baso % (Auto) 0.4 (0.2-1.2) % Lymph # (Auto) 1.27 (0.9-3.2) K/mm3 [place] # (Auto) 0.4 (0.1-0.6) K/mm3 Eos # (Auto) 0.1 (0-0.3) K/mm3 Baso # (Auto) 0.0 (0.0-0.1) K/mm3 Abs Immat Gran (auto) 0.01 (0.00-0.031) K/mm3 Absolute Neuts (auto) 3.4 (1.3-6.7) K/mm3 Absolute Nucleated RBC 0.000 (0.0-0.012) K/mm3 Nucleated RBC % 0.0 (0.0-0.2) % Sodium 136 L (137-145) mmol/L Potassium 4.6 (3.4-5.0) mmol/L Chloride 100 (98-107) mmol/L Carbon Dioxide 31 H (22-30) mmol/L Anion Gap 5 (4-12) mmol/L BUN 26 H (7-17) mg/dL Creatinine 1.17 H (0.7-1.0) mg/dL Estim Creat Clear Calc 56 ml/min Estimated GFR 52 L (59 - ) Glucose 142 H (65-110) mg/dL Calcium 9.0 (8.4-10.2) mg/dL Total Bilirubin 0.5 (0.2-1.3) mg/dL AST 39 H (14-36) U/L ALT 14 (6-35) U/L Alkaline Phosphatase 311 H (38-126) U/L Total Protein 7.0 (6.3-8.2) g/dL Albumin 3.6 (3.5-5.1) g/dL Lipase 18 L (23-300) U/L Urine Color Yellow (Yellow) Urine Appearance Clear (Clear) Urine pH 8.0 (5.0-9.0) Ur Specific [place] 1.010 (1.001-1.035) Urine Protein Negative (Negative) mg/dL Urine Glucose (UA) Negative (Negative) mg/dL Urine Ketones Negative (Negative) mg/dL Ur Blood (Man) Trace (Negative) Urine Nitrate Negative (Negative) Urine Bilirubin Negative (Negative) Urine Urobilinogen 0.2 (<2.0) mg/dL Leukocyte Esterase Rfl 1+ H (Negative) SHIRLEY/UL Urine RBC 6-10 H (0-2) /hpf Urine WBC 21-50 H (0-3) /hpf Ur Squamous Epith Cells None seen (Few) /hpf Urine Bacteria None seen /hpf Urine Casts 3-5 POC Urine HCG, Qual Negative (Negative) Influenza A (RT-PCR) (Negative) Influenza B (RT-PCR) (Negative) RSV (RT-PCR) (Negative) SARS-CoV-2 RNA (RT-PCR) (Negative) 04/03/24 Range/Units 23:28 WBC (4.5-10.0) K/mm3 RBC (4.2-5.4) M/mm3 Hgb (12.0-15.0) g/dL Hct (37.0-47.0) % MCV (80-100) fl MCH (26-34) pg MCHC (32-36) g/dl RDW (11.5-14.5) % Plt Count (150-375) k/mm3 MPV (7.4-10.4) fl Immature Gran % (Auto) (0-0.5) % Neut % (Auto) (45.5-73.1) % Lymph % (Auto) (18.3-44.2) % [place] % (Auto) (2.6-8.5) % Eos % (Auto) (0-4.4) % Baso % (Auto) (0.2-1.2) % Lymph # (Auto) (0.9-3.2) K/mm3 [place] # (Auto) (0.1-0.6) K/mm3 Eos # (Auto) (0-0.3) K/mm3 Baso # (Auto) (0.0-0.1) K/mm3 Abs Immat Gran (auto) (0.00-0.031) K/mm3 Absolute Neuts (auto) (1.3-6.7) K/mm3 Absolute Nucleated RBC (0.0-0.012) K/mm3 Nucleated RBC % (0.0-0.2) % Sodium (137-145) mmol/L Potassium (3.4-5.0) mmol/L Chloride (98-107) mmol/L Carbon Dioxide (22-30) mmol/L Anion Gap (4-12) mmol/L BUN (7-17) mg/dL Creatinine (0.7-1.0) mg/dL Estim Creat Clear Calc ml/min Estimated GFR (59 - ) Glucose (65-110) mg/dL Calcium (8.4-10.2) mg/dL Total Bilirubin (0.2-1.3) mg/dL AST (14-36) U/L ALT (6-35) U/L Alkaline Phosphatase (38-126) U/L Total Protein (6.3-8.2) g/dL Albumin (3.5-5.1) g/dL Lipase (23-300) U/L Urine Color (Yellow) Urine Appearance (Clear) Urine pH (5.0-9.0) Ur Specific [place] (1.001-1.035) Urine Protein (Negative) mg/dL Urine Glucose (UA) (Negative) mg/dL Urine Ketones (Negative) mg/dL Ur Blood (Man) (Negative) Urine Nitrate (Negative) Urine Bilirubin (Negative) Urine Urobilinogen (<2.0) mg/dL Leukocyte Esterase Rfl (Negative) SHIRLEY/UL Urine RBC (0-2) /hpf Urine WBC (0-3) /hpf Ur Squamous Epith Cells (Few) /hpf Urine Bacteria /hpf Urine Casts POC Urine HCG, Qual (Negative) Influenza A (RT-PCR) Negative (Negative) Influenza B (RT-PCR) Negative (Negative) RSV (RT-PCR) Negative (Negative) SARS-CoV-2 RNA (RT-PCR) Negative (Negative) Discharge Plan Discharge Clinical Impression: Abscess Patient Disposition: Home, Self-Care Condition: Stable Instructions: Antibiotic Form, Acute Nausea and Vomiting (ED), Abscess (ED) Additional Instructions: Please take the antibiotics as instructed. Use Zofran for nausea vomiting. Return to ED if you develop fevers, severe pain or if your abscess is getting worse. Patient Language: Ghanaian Prescriptions: New sulfamethoxazole-trimethoprim 800-160 mg tablet 1 tablet PO Q12H Qty: 10 0RF ondansetron 4 mg tablet,disintegrating 4 mg PO Q8H PRN (Reason: nausea and vomiting) Qty: 30 0RF No Action trazodone 100 mg tablet 100 mg PO DAILY tobramycin 0.3 % drops 1 drp ophthalmic (eye) DIRECTED Januvia 50 mg tablet 50 mg PO DAILY baclofen 10 mg tablet 10 mg PO TID Qty: 15 0RF omeprazole 40 mg capsule,delayed release(DR/EC) insulin glargine [Basaglar KwikPen U-100 Insulin] 100 unit/mL (3 mL) insulin pen SUBCUT cephalexin 500 mg capsule 500 mg PO Q8H 7 Days Qty: 21 0RF mupirocin 2 % ointment 1 applic topical TID Qty: 15 0RF sertraline 100 mg Tablet 200 mg PO BID simvastatin 20 mg Tablet 20 mg PO DAILY montelukast [Singulair] 10 mg Tablet 10 mg PO DAILY albuterol sulfate 90 mcg/actuation Hfa Aerosol Inhaler 2 puff INHALATION QID PRN (Reason: Dyspnea) loratadine 10 mg Tablet 10 mg PO DAILY Qvar RediHaler 80 mcg/actuation Hfa Aerosol Breath Activated 1 inh INHALATION Q12H gabapentin 300 mg capsule 600 mg PO TID 5 Days Qty: 30 0RF sulfamethoxazole-trimethoprim [Bactrim DS] 800-160 mg tablet 1 tablet PO Q12H 10 Days Qty: 20 0RF cefdinir 300 mg capsule 300 mg PO Q12H 10 Days Qty: 20 0RF Follow-up/Referrals: PHYSICIAN,FUR CLIPPER [Primary Care Provider] -
[2024-04-04] MEDS: SULFAMETHOXAZOLE/TRIMETHOPRIM 800/160 MG DS TABLET 1 TAB PO (04:23)
[2024-04-04] MEDS: LIDO 1%/EPINEPHRINE 1:100,000 20 ML VIAL 10 ML INFILTRATE (04:44)
[2024-04-04 08:02] VITALS: BP 119/81; PULSE 95; RESP 17; O2SAT 95
[2024-04-04 10:24] VITALS: BP 134/103; PULSE 100; O2SAT 99
== END 2024-04-04 11:14 | disposition home or self-care (01) ==
PROVIDERS: Emergency Provider Emergency Medicine
DX: L02.31 Cutaneous abscess of buttock (principal); Z20.822 Contact with and (suspected) exposure to COVID-19; J45.909 Unspecified asthma, uncomplicated; M06.9 Rheumatoid arthritis, unspecified; K74.60 Unspecified cirrhosis of liver; E78.5 Hyperlipidemia, unspecified; E11.9 Type 2 diabetes mellitus without complications; Z79.4 Long term (current) use of insulin
CPT/HCPCS: 10060; 36415; 74177; 80053; 81001; 81025; 83690; 85025; 87086; 87637; 96361; 96374; 99284; A9270; J1885; J2004; J7030; J7040; Q9967

== ENCOUNTER 2024-05-04 10:07 | Observation (INO) | payer OTHER, SELFPAY ==
[2024-05-04] VITALS (35 sets, daily range): BP systolic 104–155; BP diastolic 73–104; PULSE 92–118; RESP 11–30; TEMP 36.1–36.6; O2SAT 1–100; BMI 23.8
--- NOTE | ~2024-05-04 | XR_ITS ---
EXAMINATION: XR foot RT min 3V DATE: 05/04/2024 13:51 INDICATION: Right foot osteomyelitis TECHNIQUE: Dorsoplantar, two oblique and lateral views of the right foot were obtained. COMPARISON: None. FINDINGS: Diffuse osteopenia. 3 mm distraction of a chronic nonunited avulsion fracture corticated margins at t he lateral base of the first proximal phalanx. Alignment is otherwise normal. No acute fracture. Mild polyarticular osteoarthritis at multiple joints in the mid and forefoot. No cortical erosions or per iosteal reaction to suggest osteomyelitis. Small Achilles and plantar calcaneal spurs. Soft tissues a re unremarkable. IMPRESSION: 1. 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 Reviewed, dictated and finalized at location A. L PAINTER IMPRESSION: 1. Chronic nonunited avulsion fracture at the lateral base of the right first p roximal phalanx.
--- OUTSIDE RECORDS SUMMARY | 2024-05-04 10:22 | XMS_ITS | Encounter Summary ---
Author Organization [facility] Healthcare Address [address] [place] [address] Care Team Providers Care Microeconomics Professor Name Role Phone Barbara Oliva MD Primary Care Provider Miscellaneous, Not In File Unavailable Unava ilable Encounter Details Date Type Department Care Team (Late st Contact Info) Description 02/13/2024 Treatment [facility] PATHOLOG[facility] [address] [id number] Andie Byrne MD [address] [place] [id number] Social History Tobacco Use Types Packs/Day Years Used Date Smoking Tobacco: Every Day Cigarettes Passive Smoke Exposure: Never Smokeless Tobacco: Never [facility] Utilities Answer Date Recorded In the past 12 months has [employer] electric, gas, oil, or water company threatened to shut off services in your home? No 01/29/2024 Social Connection and Isolation Panel [NHANES] A nswer Date Recorded In a typical week, how many times do you talk on the phone with family, friends, or neighbors? Three times a week 01/29/20 How often do you get togethe r with friends or relatives? Three times a week 01/29/2024 How often do you attend chur ch or mandaen services? 1 to 4 times per year 01/29/2024 Do you belong to any clubs o r organizations such as denominational groups, unions, fraternal or athletic groups, or school groups? No 01/29/2024 How often do you attend meet ings of the clubs or organizations you belong to? Never 01/29/2024 Are you , , di vorced, , never , or living with a partner? Never 01/29/2024 AUDIT-C Answer Date Recorded Q1: How often do you have a drink containing alcohol? Never 01/31/2024 Q2: How many drinks containi ng alcohol do you have on a typical day when you are drinking? Patient does not drink Frequency of Binge Drinking Not on file 01/19 Overall Financial Resource Strain (CARDIA) Answe r Date Recorded How hard is it for you to pa y for the very basics like food, housing, medical care, and heating? Not very hard 01/29/2024 PHQ-2 Answer Date Recorded PHQ-2 Total Score (If total score is 3 or more points, staff should administer the PHQ-9) 3 01/02/2024 Hunger Vital Sign Answer Date Recorded Within the past 12 months, y ou worried that your food would run out before you got the money to buy more. Never true 01/29/20 24 Within the past 12 months, t he food you bought just didn't last and you didn't have money to get more. Never true 01/29/2024 PRAPARE - Transportation Answer Date Re corded In the past 12 months, has l ack of transportation kept you from medical appointments or from getting medications? Yes 01/19 In the past 12 months, has l ack of transportation kept you from meetings, work, or from getting things needed for daily living? No 01/29/2024 Housing Stability Vital Sign Answer Negin e Recorded In the last 12 months, was t here a time when you were not able to pay the mortgage or rent on time? No 01/29/2024 In the past 12 months, how m any times have you moved where you were living? 1 01/29/2024 At any time in the past 12 m [facility], were you homeless or living in a longterm (including now)? No 01/29/2024 Personal Safety Answer Date Recorded Have you ever been in or are you currently in a harmful physical or emotional relationship or is someone making you feel afraid or unsafe? 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 woman with a history of cirrhosis, diabetes, NSTEMI, and polysubstance abuse; recent hospitalization for a right shoulder fracture, osteomyelitis of the toe, and bacteremia (12/09/23-12/30/23); and recent hospitalization for pyelonephritis complicated by renal abscesses (01/09/24-02/13/24) s/p IV antibiotics. The patient has had several blood transfusions in the lastfew months, including 4 units of pRBCs between 01/31/24- 02/04/2024 during her most recent admission. Testing Information: The antibody screen was positive. Antibody identification demonstrated antibodies against the K antigen in the patient???s plasma. Additional testing was performed. A direct antiglobulin test (NEGIN) was positive, indicating that antibodies may be coating red blood cells in circulation. Phenotyping showed that the patient's red blood cells are K antigen negative. Historical antibodies generally considered to be clinically significant include anti-E. All other common, clinically significant antibodies have been ruled out. Clinical Relevance: Antibodies against the E and K antigen generally have been implicated in hemolytic transfusion reactions with extravascular hemolysis and hemolytic disease of the fetus and . Therefore, anti-Eand anti-K antibodies are generally considered to be clinically significant. Presence of these antibodies requires that additional testing be performed and this may result in additional time for blood product selection when ordered for transfusion. Therapeutic Relevance: ABO/Rh and crossmatch compatible red blood cell units negative for the E and K antigens will be provided for future transfusions. Approximately 65% ABO/Rh compatible units from the donor population are expected to be compatible. Approximately 1-2 units will need to be screened to find one compatible unit for this patient. Contact Information: Please contact the [facility] Transfusion Medicine Service at (option 1) with any questions. This report has been prepared by: Andie Byrne MD Cosigned by Kassidy Mahoney MD PhD at 02/13/2024 7:52 PM FOUNDER / CEO DER / CEO DER / CEO Associated attestation - Kassidy Mahoney MD PhD - 02/13/2024 7:52 PM FOUNDER / CEO Attestation: I have personally reviewed the antibody result and agree with the interpretation contained in this written blood bank report. 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 Coli. Not eligible for review. Multiple wounds that require cultures for discontinuation. Kyler Child 02/02/2024 01/09/2024 01/09/2024 documented as of this encounter Care Teams Microeconomics Professor Relationship Specialty Start Date End Date Barbara Oliva MD [address] [place] [id number] PCP - General Gastroenterology 12/02/23 Miscellaneous, Not In File 01/03/24 documented as of this encounter
--- OUTSIDE RECORDS SUMMARY | 2024-05-04 10:23 | XMS_ITS | Referral Summary ---
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 Monika Gilbert MD at [facility] Screw Right: Humerus Synthes I 212.136 / / Synthes 3.5mm 2.9mm 42mm Self Tap Lock [employer]rive Conical Head Full Thread 212.118 - [id number] Implanted:Qty: 1 on 01/31/2024 by Monika Gilbert MD at [facility] Screw Right: Humerus Synthes I 212.118 / / Synthes 3.5mm 2.9mm 48mm Self Tap Lock Fix Angle Low Profile Pelvis Full 212.120 - [id number] Implanted:Qty: 1 on 01/31/2024 by Monika Gilbert MD at [facility] Screw Right: Humerus Synthes I 212.120 / / Synthes 3.5mm 2.9mm 55mm Self Tap Lock [employer]rive Conical Head Pelvis Full 212.123 - [id number] Implanted:Qty: 1 on 01/31/2024 by Monika Gilbert MD at [facility] Screw Right: Humerus Synthes 212.123 / / Explanted Type Area Manager Mechanical Maintenance Device Identifier Shelf Expiration Date Model / Serial / Lot Synthes 3.5mm 6mm 30mm 2.5mm Self Tap Small Hexagonal Socket Low Profile 204.830 - [id number] Explanted:Qty: 1 on 01/31/2024 by Monika Gilbert MD at [facility] Screw Right: Humerus Synthes 204.830 / / Procedures Procedure Name Priority Date/Time Associated Diagnosis Comments POCT GLUCOSE DEVICE Routine 02/13/2024 11:47 AM ROOMING HOUSE KEEPER POCT GLUCOSE DEVICE Routine 02/13/2024 7 :56 AM ROOMING HOUSE KEEPER EGFR Routine 02/12/2024 11:57 PM ROOMING HOUSE KEEPER DIFFERENTIAL AUTO Routine 02/12/2024 11:57 PM ROOMING HOUSE KEEPER HEPATIC FUNCTION PANEL Routine 11:57 PM ROOMING HOUSE KEEPER PHOSPHORUS Routine 02/12/2024 11:57 PM ROOMING HOUSE KEEPER MAGNESIUM Routine 02/12/2024 11:57 PM ROOMING HOUSE KEEPER BASIC METABOLIC PANEL Routine 02/12/2024 11:57 PM ROOMING HOUSE KEEPER CBC WITH AUTO DIFFERENTIAL Routine 02/12/2024 11:57 PM ROOMING HOUSE KEEPER POCT GLUCOSE DEVICE Routine 02/12/2024 8 :27 PM ROOMING HOUSE KEEPER POCT GLUCOSE DEVICE Routine 02/12/2024 5 :13 PM ROOMING HOUSE KEEPER POCT GLUCOSE DEVICE Routine 02/12/2024 12:27 PM ROOMING HOUSE KEEPER POCT GLUCOSE DEVICE Routine 02/12/2024 9 :21 AM ROOMING HOUSE KEEPER POCT GLUCOSE DEVICE Routine 02/12/2024 8 :02 AM ROOMING HOUSE KEEPER EGFR Routine 02/11/2024 11:54 PM ROOMING HOUSE KEEPER DIFFERENTIAL AUTO Routine 02/11/2024 11:54 PM ROOMING HOUSE KEEPER HEPATIC FUNCTION PANEL Routine 11:54 PM ROOMING HOUSE KEEPER PHOSPHORUS Routine 02/11/2024 11:54 PM ROOMING HOUSE KEEPER MAGNESIUM Routine 02/11/2024 11:54 PM ROOMING HOUSE KEEPER BASIC METABOLIC PANEL Routine 02/11/2024 11:54 PM ROOMING HOUSE KEEPER CBC WITH AUTO DIFFERENTIAL Routine 02/11/2024 11:54 PM ROOMING HOUSE KEEPER POCT GLUCOSE DEVICE Routine 02/11/2024 8 :20 PM ROOMING HOUSE KEEPER POCT GLUCOSE DEVICE Routine 02/11/2024 4 :42 PM ROOMING HOUSE KEEPER POCT GLUCOSE DEVICE Routine 02/11/2024 7 :33 AM ROOMING HOUSE KEEPER B RYDER C3 Routine 02/11/2024 12:30 AM ROOMING HOUSE KEEPER B RYDER IGG Routine 02/11/2024 12:30 AM ROOMING HOUSE KEEPER ANTIBODY IDENTIFICATION Routine 02/10/20 10:02 PM ROOMING HOUSE KEEPER TRANSFUSION REACTION EVALUATION Timed 02/10/2024 8:51 PM ROOMING HOUSE KEEPER DIRECT ANTIGLOBULIN TEST Timed 02/10/2024 8:51 PM ROOMING HOUSE KEEPER EGFR Routine 02/10/2024 8:51 PM ROOMING HOUSE KEEPER DIFFERENTIAL AUTO Routine 02/10/2024 8:5 1 PM ROOMING HOUSE KEEPER TYPE AND SCREEN Timed 02/10/2024 8:51 PM ROOMING HOUSE KEEPER HEPATIC FUNCTION PANEL Routine 8:51 PM ROOMING HOUSE KEEPER PHOSPHORUS Routine 02/10/2024 8:51 PM ROOMING HOUSE KEEPER MAGNESIUM Routine 02/10/2024 8:51 PM ROOMING HOUSE KEEPER BASIC METABOLIC PANEL Routine 02/10/2024 8:51 PM ROOMING HOUSE KEEPER CBC WITH AUTO DIFFERENTIAL Routine 02/10/2024 8:51 PM ROOMING HOUSE KEEPER POCT GLUCOSE DEVICE Routine 02/10/2024 8 :28 PM ROOMING HOUSE KEEPER POCT GLUCOSE DEVICE Routine 02/10/2024 5 :13 PM ROOMING HOUSE KEEPER CENTRAL LINE PLACEMENT > 5 YEARS IP Routine 02/10/2024 3:32 PM ROOMING HOUSE KEEPER POCT GLUCOSE DEVICE Routine 02/10/2024 12:31 PM ROOMING HOUSE KEEPER POCT GLUCOSE DEVICE Routine 02/10/2024 8 :15 AM ROOMING HOUSE KEEPER EGFR Routine 02/09/2024 9:52 PM ROOMING HOUSE KEEPER DIFFERENTIAL AUTO Routine 02/09/2024 9:5 2 PM ROOMING HOUSE KEEPER VANCOMYCIN LEVEL RANDOM Routine 02/09/20 9:52 PM ROOMING HOUSE KEEPER HEPATIC FUNCTION PANEL Routine 9:52 PM ROOMING HOUSE KEEPER PHOSPHORUS Routine 02/09/2024 9:52 PM ROOMING HOUSE KEEPER MAGNESIUM Routine 02/09/2024 9:52 PM ROOMING HOUSE KEEPER BASIC METABOLIC PANEL Routine 02/09/2024 9:52 PM ROOMING HOUSE KEEPER CBC WITH AUTO DIFFERENTIAL Routine 02/09/2024 9:52 PM ROOMING HOUSE KEEPER POCT GLUCOSE DEVICE Routine 02/09/2024 8 :32 PM ROOMING HOUSE KEEPER POCT GLUCOSE DEVICE Routine 02/09/2024 5 :55 PM ROOMING HOUSE KEEPER URINALYSIS, MICROSCOPIC ONLY STAT 02/09/2024 5:09 PM ROOMING HOUSE KEEPER URINE CULTURE STAT 02/09/2024 5:09 PM ROOMING HOUSE KEEPER URINALYSIS AND REFLEX TO MICROSCOPIC AND CULTURE STAT 02/09/2024 5:09 PM ROOMING HOUSE KEEPER XR ABDOMEN AP 1 VIEW ED Urgent/IP Urgent 02/09/2024 4:09 PM ROOMING HOUSE KEEPER POCT GLUCOSE DEVICE Routine 02/09/2024 12:51 PM ROOMING HOUSE KEEPER POCT GLUCOSE DEVICE Routine 02/09/2024 7 :40 AM ROOMING HOUSE KEEPER EGFR Timed 02/09/2024 12:07 AM ROOMING HOUSE KEEPER CREATININE Timed 02/09/2024 12:07 AM ROOMING HOUSE KEEPER VANCOMYCIN LEVEL RANDOM Routine 02/08/20 9:50 PM ROOMING HOUSE KEEPER EGFR Routine 02/08/2024 9:50 PM ROOMING HOUSE KEEPER DIFFERENTIAL AUTO Routine 02/08/2024 9:5 0 PM ROOMING HOUSE KEEPER PROTIME-INR Routine 02/08/2024 9:50 PM ROOMING HOUSE KEEPER HEPATIC FUNCTION PANEL Routine 9:50 PM ROOMING HOUSE KEEPER PHOSPHORUS Routine 02/08/2024 9:50 PM ROOMING HOUSE KEEPER MAGNESIUM Routine 02/08/2024 9:50 PM ROOMING HOUSE KEEPER BASIC METABOLIC PANEL Routine 02/08/2024 9:50 PM ROOMING HOUSE KEEPER CBC WITH AUTO DIFFERENTIAL Routine 02/08/2024 9:50 PM ROOMING HOUSE KEEPER POCT GLUCOSE DEVICE Routine 02/08/2024 8 :31 PM ROOMING HOUSE KEEPER POCT GLUCOSE DEVICE Routine 02/08/2024 5 :56 PM ROOMING HOUSE KEEPER VANCOMYCIN LEVEL TROUGH Timed 02/08/20 1:55 PM ROOMING HOUSE KEEPER POCT GLUCOSE DEVICE Routine 02/08/2024 11:40 AM ROOMING HOUSE KEEPER POCT GLUCOSE DEVICE Routine 02/08/2024 8 :20 AM ROOMING HOUSE KEEPER EGFR Routine 02/07/2024 9:30 PM ROOMING HOUSE KEEPER DIFFERENTIAL AUTO Routine 02/07/2024 9:3 0 PM ROOMING HOUSE KEEPER HEPATIC FUNCTION PANEL Routine 9:30 PM ROOMING HOUSE KEEPER PHOSPHORUS Routine 02/07/2024 9:30 PM ROOMING HOUSE KEEPER MAGNESIUM Routine 02/07/2024 9:30 PM ROOMING HOUSE KEEPER BASIC METABOLIC PANEL Routine 02/07/2024 9:30 PM ROOMING HOUSE KEEPER CBC WITH AUTO DIFFERENTIAL Routine 02/07/2024 9:30 PM ROOMING HOUSE KEEPER POCT GLUCOSE DEVICE Routine 02/07/2024 8 :20 PM ROOMING HOUSE KEEPER POCT GLUCOSE DEVICE Routine 02/07/2024 4 :41 PM ROOMING HOUSE KEEPER POCT GLUCOSE DEVICE Routine 02/07/2024 12:22 PM ROOMING HOUSE KEEPER MYCOLOGY (FUNGAL) CULTURE Routine 02/07/2024 11:30 AM ROOMING HOUSE KEEPER TISSUE AEROBIC AND ANAEROBIC CULTURE AND GRAM STAIN Routine 02/07/2024 11:30 AM ROOMING HOUSE KEEPER MYCOBACTERIOLOGY AFB CULTURE AND ACID-FAST STAIN Routine 02/07/2024 11:30 AM ROOMING HOUSE KEEPER MYCOLOGY (FUNGAL) CULTURE AND STAIN Routine 02/07/2024 11:30 AM ROOMING HOUSE KEEPER MYCOBACTERIOLOGY AFB CULTURE AND ACID-FAST STAIN Routine 02/07/2024 11:30 AM ROOMING HOUSE KEEPER AEROBIC AND ANAEROBIC CULTURE AND GRAM STAIN Routine 02/07/2024 11:30 AM ROOMING HOUSE KEEPER BIOPSY DEEP BONE IP Routine 02/07/2024 11:29 AM ROOMING HOUSE KEEPER SURGICAL PATHOLOGY Routine 02/07/2024 11:15 AM ROOMING HOUSE KEEPER POCT GLUCOSE DEVICE Routine 02/07/2024 8 :36 AM ROOMING HOUSE KEEPER POCT GLUCOSE DEVICE Routine 02/07/2024 7 :46 AM ROOMING HOUSE KEEPER VANCOMYCIN LEVEL TROUGH Timed 02/07/20 2:37 AM ROOMING HOUSE KEEPER EGFR Routine 02/06/2024 9:36 PM ROOMING HOUSE KEEPER DIFFERENTIAL AUTO Routine 02/06/2024 9:3 6 PM ROOMING HOUSE KEEPER HEPATIC FUNCTION PANEL Routine 9:36 PM ROOMING HOUSE KEEPER PHOSPHORUS Routine 02/06/2024 9:36 PM ROOMING HOUSE KEEPER MAGNESIUM Routine 02/06/2024 9:36 PM ROOMING HOUSE KEEPER BASIC METABOLIC PANEL Routine 02/06/2024 9:36 PM ROOMING HOUSE KEEPER CBC WITH AUTO DIFFERENTIAL Routine 02/06/2024 9:36 PM ROOMING HOUSE KEEPER POCT GLUCOSE DEVICE Routine 02/06/2024 9 :32 PM ROOMING HOUSE KEEPER POCT GLUCOSE DEVICE Routine 02/06/2024 5 :33 PM ROOMING HOUSE KEEPER POCT GLUCOSE DEVICE Routine 02/06/2024 11:52 AM ROOMING HOUSE KEEPER POCT GLUCOSE DEVICE Routine 02/06/2024 8 :16 AM ROOMING HOUSE KEEPER TROPONIN I HIGH-SENSITIVITY SERIES (BASELINE, 2HR, 4HR, 6HR) Timed 02/06/2024 6:53 AM ROOMING HOUSE KEEPER EGFR Routine 02/05/2024 10:32 PM ROOMING HOUSE KEEPER DIFFERENTIAL AUTO Routine 02/05/2024 10:32 PM ROOMING HOUSE KEEPER HEPATIC FUNCTION PANEL Routine 10:32 PM ROOMING HOUSE KEEPER PHOSPHORUS Routine 02/05/2024 10:32 PM ROOMING HOUSE KEEPER MAGNESIUM Routine 02/05/2024 10:32 PM ROOMING HOUSE KEEPER BASIC METABOLIC PANEL Routine 02/05/2024 10:32 PM ROOMING HOUSE KEEPER CBC WITH AUTO DIFFERENTIAL Routine 02/05/2024 10:32 PM ROOMING HOUSE KEEPER POCT GLUCOSE DEVICE Routine 02/05/2024 9 :13 PM ROOMING HOUSE KEEPER POCT GLUCOSE DEVICE Routine 02/05/2024 5 :38 PM ROOMING HOUSE KEEPER BLOOD CULTURE Routine 02/05/2024 3:25 PM ROOMING HOUSE KEEPER BLOOD CULTURE Routine 02/05/2024 3:25 PM ROOMING HOUSE KEEPER POCT GLUCOSE DEVICE Routine 02/05/2024 2 :10 PM ROOMING HOUSE KEEPER POCT GLUCOSE DEVICE Routine 02/05/2024 9 :18 AM ROOMING HOUSE KEEPER WOUND CARE Routine 02/05/2024 8:16 AM ROOMING HOUSE KEEPER Pressure injury of sacral region, stage 4 (HCC) POTASSIUM, WHOLE BLOOD Timed 8:08 AM ROOMING HOUSE KEEPER POTASSIUM LEVEL Timed 02/05/2024 7:45 AM ROOMING HOUSE KEEPER POCT GLUCOSE DEVICE Routine 02/05/2024 6 :00 AM ROOMING HOUSE KEEPER POCT GLUCOSE DEVICE Routine 02/05/2024 5 :04 AM ROOMING HOUSE KEEPER POCT GLUCOSE DEVICE Routine 02/05/2024 4 :11 AM ROOMING HOUSE KEEPER ECG 12-LEAD STAT 02/05/2024 3:22 AM ROOMING HOUSE KEEPER EGFR Routine 02/04/2024 9:38 PM ROOMING HOUSE KEEPER DIFFERENTIAL AUTO Routine 02/04/2024 9:3 8 PM RO[employer]ING HOUSE KEEPER HEPATIC FUNCTION PANEL Routine 9:38 PM RO[employer]ING HOUSE KEEPER PHOSPHORUS Routine 02/04/2024 9:38 PM ROOMING HOUSE KEEPER MAGNESIUM Routine 02/04/2024 9:38 PM ROOMING HOUSE KEEPER BASIC METABOLIC PANEL Routine 02/04/2024 9:38 PM ROOMING HOUSE KEEPER CBC WITH AUTO DIFFERENTIAL Routine 02/04/2024 9:38 PM ROOMING HOUSE KEEPER POCT GLUCOSE DEVICE Routine 02/04/2024 9 :04 PM ROOMING HOUSE KEEPER POCT GLUCOSE DEVICE Routine 02/04/2024 5 :12 PM RO[employer]ING HOUSE KEEPER POCT GLUCOSE DEVICE Routine 02/04/2024 11:56 AM RO[employer]ING HOUSE KEEPER HEMOGLOBIN AND HEMATOCRIT Timed 02/04/2024 11:16 AM ROOMING HOUSE KEEPER MRI SACRUM COCCYX WO CONTRAST ED Urgent/IP Urgent 02/04/2024 10:53 AM ROOMING HOUSE KEEPER POCT GLUCOSE DEVICE Routine 02/04/2024 7 :44 AM RO[employer]ING HOUSE KEEPER TRANSFUSE RED BLOOD CELLS Timed 02/04/2024 5:50 AM ROOMING HOUSE KEEPER TYPE AND SCREEN Timed 02/04/2024 1:27 AM RO[employer]ING HOUSE KEEPER PREPARE RBC Timed 02/04/2024 12:43 AM RO[employer]ING HOUSE KEEPER EGFR Routine 02/03/2024 9:45 PM RO[employer]ING HOUSE KEEPER DIFFERENTIAL AUTO Routine 02/03/2024 9:4 5 PM RO[employer]ING HOUSE KEEPER HEPATIC FUNCTION PANEL Routine 9:45 PM ROOMING HOUSE KEEPER PHOSPHORUS Routine 02/03/2024 9:45 PM ROOMING HOUSE KEEPER MAGNESIUM Routine 02/03/2024 9:45 PM ROOMING HOUSE KEEPER BASIC METABOLIC PANEL Routine 02/03/2024 9:45 PM ROOMING HOUSE KEEPER CBC WITH AUTO DIFFERENTIAL Routine 02/03/2024 9:45 PM ROOMING HOUSE KEEPER POCT GLUCOSE DEVICE Routine 02/03/2024 9 :39 PM RO[employer]ING HOUSE KEEPER POCT GLUCOSE DEVICE Routine 02/03/2024 5 :47 PM RO[employer]ING HOUSE KEEPER POCT GLUCOSE DEVICE Routine 02/03/2024 2 :[address] ABDOMEN PELVIS W CONTRAST IP Routine 02/03/2024 10:03 AM ROOMING HOUSE KEEPER POCT GLUCOSE DEVICE Routine 02/03/2024 9 :24 AM RO[employer]ING HOUSE KEEPER EGFR Routine 02/02/2024 10:40 PM RO[employer]ING HOUSE KEEPER DIFFERENTIAL AUTO Routine 02/02/2024 10:40 PM ROOMING HOUSE KEEPER HEPATIC FUNCTION PANEL Routine 10:40 PM ROOMING HOUSE KEEPER PHOSPHORUS Routine 02/02/2024 10:40 PM ROOMING HOUSE KEEPER MAGNESIUM Routine 02/02/2024 10:40 PM ROOMING HOUSE KEEPER BASIC METABOLIC PANEL Routine 02/02/2024 10:40 PM ROOMING HOUSE KEEPER CBC WITH AUTO DIFFERENTIAL Routine 02/02/2024 10:40 PM ROOMING HOUSE KEEPER POCT GLUCOSE DEVICE Routine 02/02/2024 8 :25 PM ROOMING HOUSE KEEPER HEMOGLOBIN AND HEMATOCRIT Timed 02/02/2024 5:56 PM RO[employer]ING HOUSE KEEPER POCT GLUCOSE DEVICE Routine 02/02/2024 4 :53 PM RO[employer]ING HOUSE KEEPER POCT GLUCOSE DEVICE Routine 02/02/2024 12:56 PM RO[employer]ING HOUSE KEEPER TRANSFUSE RED BLOOD CELLS Timed 02/02/2024 11:07 AM RO[employer]ING HOUSE KEEPER POCT GLUCOSE DEVICE Routine 02/02/2024 9 :48 AM ROOMING HOUSE KEEPER HEPATITIS PANEL, ACUTE Routine 9:00 PM RO[employer]ING HOUSE KEEPER LIPID PANEL Routine 01/26/2024 11:33 PM RO[employer]ING HOUSE KEEPER HEMOGLOBIN A1C Routine 12/01/2023 6:48 PM CDT from Last 3 Months or Most Recently Relevant to Health Maintenance Results * POCT glucose (02/13/2024 11:47 AM ROOMING HOUSE KEEPER) Glucose, POC 122 70 - 199 mg/dL Blood 02/13/2024 11:4 7 AM ROOMING HOUSE KEEPER 02/13/2024 11:47 AM ROOMING HOUSE KEEPER us Kassidy Pinzon MD LAB POCT ORDERABLES - DEVIC E Final Result Performing Organization Address [facility] Co de Phone Number [facility] [place] [address] * POCT glucose (02/13/2024 7:56 AM ROOMING HOUSE KEEPER) Glucose, POC 95 70 - 199 mg/dL Blood 02/13/2024 7:56 AM RO[employer]ING HOUSE KEEPER 02/13/2024 7:56 AM ROOMING HOUSE KEEPER us Kassidy Pinzon MD LAB POCT ORDERABLES - DEVIC E Final Result Performing Organization Address City/State/[facility] Co de Phone Number [facility] [place] [address] * eGFR (02/12/2024 11:57 PM ROOMING HOUSE KEEPER) eGFR 79 >=60 mL/min/1. 73 m2 Comment: Interpretive Data Reference Interval Normal >/= 90 mL/min/1.73m2 Mildly decreased* 60 - 89 mL/min/1.73m2 Mildly to moderately decreased 45 - 59 mL/min/1.73m2 Moderately to severely decreased 30 - 44 mL/min/1.73m2 Severely decreased 15 - 29 mL/min/1.73m2 Kidney Failure < 15 mL/min/1.73m2 *Relative to young adult level Estimated glomerular filtration rate is determined by the 2020 CKD-EPI equation recommended by the National Kid[employer] Foundation (A Unifying Approach to GFR Estimation: Recommendations of the NKF-ASK Task Force on Reassessing the Inclusion of Race in Diagnosing Kidney Disease, JASN 202). The CKD-EPI equation should not be used for patients with unstable renal function and has not been validated in children and those over 70. Current interpretive data was last reviewed 2021. Blood 02/12/2024 11:5 7 PM ROOMING HOUSE KEEPER 02/13/2024 12:29 AM ROOMING HOUSE KEEPER Carin Granados MD LAB BLOOD ORDERABLES Tete palomino Result [facility] Department [place] [address] * Differential, auto (02/12/2024 11:57 PM ROOMING HOUSE KEEPER) Pathologist [facility] Neutrophil abs 4.2 1.5 - 6.5 K/cumm Imm gran abs 0.0 0.0 - 0.1 K/cumm [facility] Lymphocyte abs 1.2 0.8 - 3.3 K/cumm [facility] Monocyte abs 0.6 0.2 - 0.8 K/cumm [facility] Eosinophil abs 0.2 0.0 - 0.5 K/cumm [facility] Basophil abs 0.0 0.0 - 0.1 K/cumm [facility] Neutrophil pct 67.3 % [facility] Comment: Interpretive Data Percent cell count reference ranges are not reported, since discordance with absolute values may lead to misinterpretation of CBC data. Current Interpretive Data was last revised on 2017. Imm gran pct 0.3 % [facility] Comment: Interpretive Data Percent cell count reference ranges are not reported, since discordance with absolute values may lead to misinterpretation of CBC data. Current Interpretive Data was last revised on 2017. Lymphocyte pct 19.2 % [facility] Comment: Interpretive Data Percent cell count reference ranges are not reported, since discordance with absolute values may lead to misinterpretation of CBC data. Current Interpretive Data was last revised on 2017. Monocyte pct 9.4 % [facility] Comment: Interpretive Data Percent cell count reference ranges are not reported, since discordance with absolute values may lead to misinterpretation of CBC data. Current Interpretive Data was last revised on 2017. Eosinophil pct 3.5 % [facility] Comment: Interpretive Data Percent cell count reference ranges are not reported, since discordance with absolute values may lead to misinterpretation of CBC data. Current Interpretive Data was last revised on 2017. Basophil pct 0.3 % [facility] Comment: Interpretive Data Percent cell count reference ranges are not reported, since discordance with absolute values may lead to misinterpretation of CBC data. Current Interpretive Data was last revised on 2017. Blood 02/12/2024 11:5 7 PM ROOMING HOUSE KEEPER 02/13/2024 12:29 AM ROOMING HOUSE KEEPER us Carin Granados MD LAB BLOOD ORDERABLES Tete palomino Result [facility] Department [place] [address] * (ABNORMAL) CBC with auto differential (02/12/2024 11:57 PM ROOMING HOUSE KEEPER) WBC 6.3 3.8 - 9.9 K/cumm Hgb 7.2(L) 11.9 - 15.5 g/dL [facility] Hct 23.1(L) 35.6 - 45.5 % [facility] Plt 208 150 - 400 K/cumm [facility] MPV 9.7 9.1 - 12.3 fL [facility] RBC 2.77(L) 3.90 - 5.20 M/cumm [facility] MCV 83.4 81.3 - 96.4 fL [facility] MCH 26.0(L) 27.1 - 33.3 pg [facility] MCHC 31.2(L) 32.3 - 35.7 g/dL [facility] RDW CV 14.4 11.1 - 14.9 % [facility] RDW SD 43.3 35.7 - 48.1 fL [facility] NRBC abs 0.00 0.00 - 0.01 K/cumm [facility] Blood 02/12/2024 11:5 7 PM ROOMING HOUSE KEEPER 02/13/2024 12:29 AM ROOMING HOUSE KEEPER Carin Granados MD LAB BLOOD ORDERABLES Tete l Result Performing Organization Address [facility] [[email or web address]] de Phone Number [facility] Department [place] [address] * Phosphorus (02/12/2024 11:57 PM ROOMING HOUSE KEEPER) Phosphorus, pl 2.8 2.3 - 4.5 mg/dL Blood 02/12/2024 11:5 7 PM ROOMING HOUSE KEEPER 02/13/2024 12:29 AM ROOMING HOUSE KEEPER Carin Granados MD LAB BLOOD ORDERABLES Tete l Result Performing Organization Address City/[facility] [[email or web address]] de Phone Number [facility] Department [place] [address] * Magnesium (02/12/2024 11:57 PM ROOMING HOUSE KEEPER) Magnesium 2.2 1.4 - 2.5 mg/dL Blood 02/12/2024 11:5 7 PM ROOMING HOUSE KEEPER 02/13/2024 12:29 AM ROOMING HOUSE KEEPER Carin Granados MD LAB BLOOD ORDERABLES Tete l Result Performing Organization Address City/[facility]/ZIP Co de Phone Number [facility] Department [place] [address] * (ABNORMAL) Hepatic function panel (02/12/2024 11:57 PM ROOMING HOUSE KEEPER) [facility] Bilirubin, total 0.5 0.1 - 1.2 mg/dL Bilirubin, direct 0.2 0.1 - 0.3 mg/dL [facility] Protein, pl 7.2 6.5 - 8.5 g/dL [facility] Albumin 3.2(L) 3.5 - 5.0 g/dL [facility] Alk phos 330(H) 40 - 130 Units/L [facility] ALT 29 7 - 45 Units/L [facility] AST 68(H) 10 - 45 Units/L [facility] Blood 02/12/2024 11:5 7 PM ROOMING HOUSE KEEPER 02/13/2024 12:29 AM ROOMING HOUSE KEEPER Carin Granados MD LAB BLOOD ORDERABLES Tete l Result [facility] Department [place] [address] * Basic metabolic panel (02/12/2024 11:57 PM ROOMING HOUSE KEEPER) [facility] Sodium 140 135 - 145 mmol/L Potassium, pl 3.9 3.3 - 4.9 mmol/L [facility] Chloride 100 97 - 110 mmol/L [facility] CO2 30 22 - 32 mmol/L [facility] Anion gap 10 2 - 15 mmol/L [facility] BUN 24 6 - 25 mg/dL [facility] Creatinine 0.95 0.60 - 1.10 mg/dL [facility] Glucose 165 70 - 199 mg/dL [facility] Comment: Interpretive Data Fasting glucose >/= 126 mg/dl is diagnostic for diabetes. Fasting is defined as no caloric intake for at least 8 hours. Fasting glucose between 100 mg/dl to 125 mg/dl is diagnostic of prediabetes. In a patient with classic symptoms of hyperglycemia or hyperglycemic crisis, a random glucose >/= 200 mg/dl is diagnostic for diabetes. In the absence of unequivocal hyperglycemia, results should be confirmed by repeat testing. The classification and Diagnosis of Diabetes Diabetes Care 2021; 46: S19-S40. Current interpretive data was last revised 2022. Calcium 8.9 8.5 - 10.3 mg/dL [facility] Blood 02/12/2024 11:5 7 PM ROOMING HOUSE KEEPER 02/13/2024 12:29 AM ROOMING HOUSE KEEPER us Carin Granados MD LAB BLOOD ORDERABLES Tete l Result Performing Organization Address [facility] Co de Phone Number [facility] [place] [address] * POCT glucose (02/12/2024 8:27 PM ROOMING HOUSE KEEPER) Glucose, POC 167 70 - 199 mg/dL Blood 02/12/2024 8:27 PM ROOMING HOUSE KEEPER 02/12/2024 8:27 PM ROOMING HOUSE KEEPER us Kassidy Pinzon MD LAB POCT ORDERABLES - DEVIC E Final Result Performing Organization Address [facility] Co de Phone Number [facility] [place] [address] * POCT glucose (02/12/2024 5:13 PM ROOMING HOUSE KEEPER) Glucose, POC 167 70 - 199 mg/dL Blood 02/12/2024 5:13 PM ROOMING HOUSE KEEPER 02/12/2024 5:13 PM ROOMING HOUSE KEEPER us Kassidy Pinzon MD LAB POCT ORDERABLES - DEVIC E Final Result Performing Organization Address [facility] Co de Phone Number [facility] [place] [address] * POCT glucose (02/12/2024 12:27 PM ROOMING HOUSE KEEPER) Glucose, POC 139 70 - 199 mg/dL Blood 02/12/2024 12:2 7 PM ROOMING HOUSE KEEPER 02/12/2024 12:27 PM ROOMING HOUSE KEEPER Kassidy Pinzon MD LAB POCT ORDERABLES - DEVIC E Final Result Performing Organization Address [facility] Co de Phone Number [facility] [place] [address] * POCT glucose (02/12/2024 9:21 AM ROOMING HOUSE KEEPER) Glucose, POC 95 70 - 199 mg/dL Blood 02/12/2024 9:21 AM ROOMING HOUSE KEEPER 02/12/2024 9:21 AM ROOMING HOUSE KEEPER Kassidy Pinzon MD LAB POCT ORDERABLES - DEVIC E Final Result Performing Organization Address [facility] Co de Phone Number [facility] [place] [address] * POCT glucose (02/12/2024 8:02 AM ROOMING HOUSE KEEPER) [facility] Glucose, POC 91 70 - 199 mg/dL Blood 02/12/2024 8:02 AM ROOMING HOUSE KEEPER 02/12/2024 8:02 AM ROOMING HOUSE KEEPER Kassidy Pinzon MD LAB POCT ORDERABLES - DEVIC E Final Result Performing Organization Address [facility] [[email or web address]] de Phone Number [facility] [place] [address] * eGFR (02/11/2024 11:54 PM ROOMING HOUSE KEEPER) [facility] eGFR 65 >=60 mL/min/1. 73 m2 Comment: Interpretive Data Reference Interval Normal >/= 90 mL/min/1.73m2 Mildly decreased* 60 - 89 mL/min/1.73m2 Mildly to moderately decreased 45 - 59 mL/min/1.73m2 Moderately to severely decreased 30 - 44 mL/min/1.73m2 Severely decreased 15 - 29 mL/min/1.73m2 Kidney Failure < 15 mL/min/1.73m2 *Relative to young adult level Estimated glomerular filtration rate is determined by the 2020 CKD-EPI equation recommended by the National Kidney Foundation (A Unifying Approach to GFR Estimation: Recommendations of the NKF-ASK Task Force on Reassessing the Inclusion of Race in Diagnosing Kidney Disease, JASN 2020). The CKD-EPI equation should not be used for patients with unstable renal function and has not been validated in children and those over 70. Current interpretive data was last reviewed 2021. 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 02/12/2024 12:43 AM ROOMING HOUSE KEEPER us Carin Granados MD LAB BLOOD ORDERABLES Tete palomino Result [facility] Department [place] [address] * Differential, auto (02/11/2024 11:54 PM ROOMING HOUSE KEEPER) Pathologist [facility] Neutrophil abs 4.3 1.5 - 6.5 K/cumm Imm gran abs 0.0 0.0 - 0.1 K/cumm [facility] Lymphocyte abs 1.3 0.8 - 3.3 K/cumm [facility] Monocyte abs 0.7 0.2 - 0.8 K/cumm [facility] Eosinophil abs 0.2 0.0 - 0.5 K/cumm [facility] Basophil abs 0.0 0.0 - 0.1 K/cumm [facility] Neutrophil pct 66.6 % [facility] Comment: Interpretive Data Percent cell count reference ranges are not reported, since discordance with absolute values may lead to misinterpretation of CBC data. Current Interpretive Data was last revised on 2017. Imm gran pct 0.3 % [facility] Comment: Interpretive Data Percent cell count reference ranges are not reported, since discordance with absolute values may lead to misinterpretation of CBC data. Current Interpretive Data was last revised on 2017. Lymphocyte pct 19.4 % [facility] Comment: Interpretive Data Percent cell count reference ranges are not reported, since discordance with absolute values may lead to misinterpretation of CBC data. Current Interpretive Data was last revised on 2017. Monocyte pct 10.1 % [facility] Comment: Interpretive Data Percent cell count reference ranges are not reported, since discordance with absolute values may lead to misinterpretation of CBC data. Current Interpretive Data was last revised on 2017. Eosinophil pct 3.1 % [facility] Comment: Interpretive Data Percent cell count reference ranges are not reported, since discordance with absolute values may lead to misinterpretation of CBC data. Current Interpretive Data was last revised on 2017. Basophil pct 0.5 % [facility] Comment: Interpretive Data Percent cell count reference ranges are not reported, since discordance with absolute values may lead to misinterpretation of CBC data. Current Interpretive Data was last revised on 2017. 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 02/12/2024 12:42 AM ROOMING HOUSE KEEPER us Carin Granados MD LAB BLOOD ORDERABLES Tete palomino Result [facility] Department [place] [address] * (ABNORMAL) CBC with auto differential (02/11/2024 11:54 PM ROOMING HOUSE KEEPER) WBC 6.4 3.8 - 9.9 K/cumm Hgb 7.4(L) 11.9 - 15.5 g/dL [facility] Hct 24.0(L) 35.6 - 45.5 % [facility] Plt 230 150 - 400 K/cumm [facility] MPV 9.8 9.1 - 12.3 fL [facility] RBC 2.88(L) 3.90 - 5.20 M/cumm [facility] MCV 83.3 81.3 - 96.4 fL [facility] MCH 25.7(L) 27.1 - 33.3 pg [facility] MCHC 30.8(L) 32.3 - 35.7 g/dL [facility] RDW CV 14.3 11.1 - 14.9 % [facility] RDW SD 42.9 35.7 - 48.1 fL [facility] NRBC abs 0.00 0.00 - 0.01 K/cumm [facility] 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 02/12/2024 12:42 AM ROOMING HOUSE KEEPER Carin Granados MD LAB BLOOD ORDERABLES Tete l Result [facility] [place] [address] * Phosphorus (02/11/2024 11:54 PM ROOMING HOUSE KEEPER) Phosphorus, pl 2.9 2.3 - 4.5 mg/dL 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 02/12/2024 12:43 AM ROOMING HOUSE KEEPER Carin Granados MD LAB BLOOD ORDERABLES Tete l Result Performing Organization Address [facility] Co de Phone Number [facility] [place] [address] * Magnesium (02/11/2024 11:54 PM ROOMING HOUSE KEEPER) Magnesium 2.5 1.4 - 2.5 mg/dL 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 02/12/2024 12:43 AM ROOMING HOUSE KEEPER Carin Granados MD LAB BLOOD ORDERABLES Tete l Result [facility] [place] [address] * (ABNORMAL) Hepatic function panel (02/11/2024 11:54 PM ROOMING HOUSE KEEPER) [facility] Bilirubin, total 0.6 0.1 - 1.2 mg/dL Bilirubin, direct 0.2 0.1 - 0.3 mg/dL [facility] Protein, pl 7.3 6.5 - 8.5 g/dL [facility] Albumin 3.1(L) 3.5 - 5.0 g/dL [facility] Alk phos 317(H) 40 - 130 Units/L [facility] ALT 27 7 - 45 Units/L [facility] AST 69(H) 10 - 45 Units/L [facility] 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 02/12/2024 12:43 AM ROOMING HOUSE KEEPER us Carin Granados MD LAB BLOOD ORDERABLES Tete l Result [facility] Department [place] [address] * (ABNORMAL) Basic metabolic panel (02/11/2024 11:54 PM ROOMING HOUSE KEEPER) [facility] Sodium 138 135 - 145 mmol/L Potassium, pl 4.5 3.3 - 4.9 mmol/L [facility] Chloride 99 97 - 110 mmol/L [facility] CO2 31 22 - 32 mmol/L [facility] Anion gap 8 2 - 15 mmol/L [facility] BUN 26(H) 6 - 25 mg/dL [facility] Creatinine 1.11(H) 0.60 - 1.10 mg/dL [facility] Glucose 96 70 - 199 mg/dL [facility] Comment: Interpretive Data Fasting glucose >/= 126 mg/dl is diagnostic for diabetes. Fasting is defined as no caloric intake for at least 8 hours. Fasting glucose between 100 mg/dl to 125 mg/dl is diagnostic of prediabetes. In a patient with classic symptoms of hyperglycemia or hyperglycemic crisis, a random glucose >/= 200 mg/dl is diagnostic for diabetes. In the absence of unequivocal hyperglycemia, results should be confirmed by repeat testing. The classification and Diagnosis of Diabetes Diabetes Care 202; 46: S19-S40. Current interpretive data was last revised 2022. Calcium 9.0 8.5 - 10.3 mg/dL [facility] 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 02/12/2024 12:43 AM ROOMING HOUSE KEEPER Carin Granados MD LAB BLOOD ORDERABLES Tete l Result Performing Organization Address [facility]/ZIP Co de Phone Number [facility] [place] [address] * POCT glucose (02/11/2024 8:20 PM ROOMING HOUSE KEEPER) Glucose, POC 114 70 - 199 mg/dL Blood 02/11/2024 8:20 PM ROOMING HOUSE KEEPER 02/11/2024 8:20 PM ROOMING HOUSE KEEPER Kassidy Pinzon MD LAB POCT ORDERABLES - DEVIC E Final Result Performing Organization Address [facility] Co de Phone Number [facility] [place] [address] * POCT glucose (02/11/2024 4:42 PM ROOMING HOUSE KEEPER) Glucose, POC 106 70 - 199 mg/dL Blood 02/11/2024 4:42 PM ROOMING HOUSE KEEPER 02/11/2024 4:42 PM ROOMING HOUSE KEEPER Kassidy Pinzon MD LAB POCT ORDERABLES - DEVIC E Final Result Performing Organization Address [facility] Co de Phone Number [facility] [place] [address] * POCT glucose (02/11/2024 7:33 AM ROOMING HOUSE KEEPER) Glucose, POC 99 70 - 199 mg/dL Blood 02/11/2024 7:33 AM ROOMING HOUSE KEEPER 02/11/2024 7:33 AM ROOMING HOUSE KEEPER us Kassidy Pinzon MD LAB POCT ORDERABLES - DEVIC E Final Result Performing Organization Address [facility] Co de Phone Number [facility] [place] [address] * B RYDER IGG (02/11/2024 12:30 AM ROOMING HOUSE KEEPER) Direct Ruiz IgG Negative Blood 02/11/2024 12:3 0 AM ROOMING HOUSE KEEPER 02/11/2024 12:30 AM ROOMING HOUSE KEEPER us Kassidy Pinzon MD LAB BODY FLUIDS AND STOOLS ORDERABLES Final Result Performing Organization Address [facility] de Phone Number [facility] [place] [address] * (ABNORMAL) B RYDER C3 (02/11/2024 12:30 AM ROOMING HOUSE KEEPER) Direct Ruiz C3 Positive(A ) Blood 02/11/2024 12:3 0 AM ROOMING HOUSE KEEPER 02/11/2024 12:30 AM ROOMING HOUSE KEEPER us Kassidy Pinzon MD LAB BLOOD ORDERABLES Final Result Performing Organization Address [facility] Co de Phone Number [facility] Department [place] [address] * Antibody identification (02/10/2024 10:02 PM ROOMING HOUSE KEEPER) Antibody ID 1 Anti-K Comment:Previous anti-E not reacting Blood 02/10/2024 10:0 2 PM ROOMING HOUSE KEEPER 02/10/2024 10:02 PM ROOMING HOUSE KEEPER Kassidy Pinzon MD LAB BLOOD BANK TEST ORDERAB LES Final Result Performing Organization Address [facility] Co de Phone Number [facility] Department [place] [address] * eGFR (02/10/2024 8:51 PM ROOMING HOUSE KEEPER) Pathologist [facility] eGFR 70 >=60 mL/min/1. 73 m2 Comment: Interpretive Data Reference Interval Normal >/= 90 mL/min/1.73m2 Mildly decreased* 60 - 89 mL/min/1.73m2 Mildly to moderately decreased 45 - 59 mL/min/1.73m2 Moderately to severely decreased 30 - 44 mL/min/1.73m2 Severely decreased 15 - 29 mL/min/1.73m2 Kidney Failure < 15 mL/min/1.73m2 *Relative to young adult level Estimated glomerular filtration rate is determined by the 2020 CKD-EPI equation recommended by the National Kidney Foundation (A Unifying Approach to GFR Estimation: Recommendations of the NKF-ASK Task Force on Reassessing the Inclusion of Race in Diagnosing Kidney Disease, JASN 2020). The CKD-EPI equation should not be used for patients with unstable renal function and has not been validated in children and those over 70. Current interpretive data was last reviewed 2021. Blood 02/10/2024 8:51 PM ROOMING HOUSE KEEPER 02/10/2024 9:12 PM ROOMING HOUSE KEEPER us Carin Granados MD LAB BLOOD ORDERABLES Tete palomino Result [facility] Department [place] [address] * Differential, auto (02/10/2024 8:51 PM ROOMING HOUSE KEEPER) Pathologist [facility] Neutrophil abs 4.2 1.5 - 6.5 K/cumm Imm gran abs 0.0 0.0 - 0.1 K/cumm [facility] Lymphocyte abs 1.4 0.8 - 3.3 K/cumm [facility] Monocyte abs 0.6 0.2 - 0.8 K/cumm [facility] Eosinophil abs 0.2 0.0 - 0.5 K/cumm [facility] Basophil abs 0.0 0.0 - 0.1 K/cumm [facility] Neutrophil pct 64.3 % [facility] Comment: Interpretive Data Percent cell count reference ranges are not reported, since discordance with absolute values may lead to misinterpretation of CBC data. Current Interpretive Data was last revised on 2017. Imm gran pct 0.3 % [facility] Comment: Interpretive Data Percent cell count reference ranges are not reported, since discordance with absolute values may lead to misinterpretation of CBC data. Current Interpretive Data was last revised on 2017. Lymphocyte pct 22.0 % [facility] Comment: Interpretive Data Percent cell count reference ranges are not reported, since discordance with absolute values may lead to misinterpretation of CBC data. Current Interpretive Data was last revised on 2017. Monocyte pct 9.4 % [facility] Comment: Interpretive Data Percent cell count reference ranges are not reported, since discordance with absolute values may lead to misinterpretation of CBC data. Current Interpretive Data was last revised on 2017. Eosinophil pct 3.7 % [facility] Comment: Interpretive Data Percent cell count reference ranges are not reported, since discordance with absolute values may lead to misinterpretation of CBC data. Current Interpretive Data was last revised on 2017. Basophil pct 0.3 % [facility] Comment: Interpretive Data Percent cell count reference ranges are not reported, since discordance with absolute values may lead to misinterpretation of CBC data. Current Interpretive Data was last revised on 2017. Blood 02/10/2024 8:51 PM ROOMING HOUSE KEEPER 02/10/2024 9:12 PM ROOMING HOUSE KEEPER us Carin Granados MD LAB BLOOD ORDERABLES Tete l Result [facility] Department [place] [address] * (ABNORMAL) CBC with auto differential (02/10/2024 8:51 PM ROOMING HOUSE KEEPER) WBC 6.5 3.8 - 9.9 K/cumm Hgb 7.5(L) 11.9 - 15.5 g/dL [facility] Hct 24.3(L) 35.6 - 45.5 % [facility] Plt 245 150 - 400 K/cumm [facility] MPV 9.5 9.1 - 12.3 fL [facility] RBC 2.92(L) 3.90 - 5.20 M/cumm [facility] MCV 83.2 81.3 - 96.4 fL [facility] MCH 25.7(L) 27.1 - 33.3 pg [facility] MCHC 30.9(L) 32.3 - 35.7 g/dL [facility] RDW CV 14.1 11.1 - 14.9 % [facility] RDW SD 42.3 35.7 - 48.1 fL [facility] NRBC abs 0.00 0.00 - 0.01 K/cumm [facility] Blood 02/10/2024 8:51 PM ROOMING HOUSE KEEPER 02/10/2024 9:12 PM ROOMING HOUSE KEEPER us Carin Granados MD LAB BLOOD ORDERABLES Tete l Result [facility] [place] [address] * Transfusion reaction evaluation with specimen collection (02/10/2024 8:51 PM ROOMING HOUSE KEEPER) Recommended Product Transfuse K negative red blood cells. Recommened Pre Medication None [facility] Final Analysis of Transfusion Reaction Delayed Hemolytic Transfusion Reaction [facility] Blood 02/10/2024 8:51 PM ROOMING HOUSE KEEPER 02/10/2024 9:12 PM ROOMING HOUSE KEEPER us Kassidy Pinzon MD LAB BLOOD BANK TEST ORDERAB LES Final Result Performing Organization Address [facility]/ZIP Co de Phone Number [facility] [place] [address] * (ABNORMAL) Type and screen (02/10/2024 8:51 PM ROOMING HOUSE KEEPER) ABO Rh O Positive Ruiz, indirect Positive(A) [facility] Blood 02/10/2024 8:51 PM ROOMING HOUSE KEEPER 02/10/2024 9:12 PM ROOMING HOUSE KEEPER Narrative [facility] - 02/10/2024 10:02 PM ROOMING HOUSE KEEPER Has the patient had Daratumumab or Isatuximab in the past 6 months?->Unknown us Kassidy Pinzon MD LAB BLOOD BANK TEST ORDERAB LES Final Result Performing Organization Address [facility] Co de Phone Number [facility] [place] [address] * (ABNORMAL) Direct antiglobulin test (02/10/2024 8:51 PM ROOMING HOUSE KEEPER) Pathologist [facility] Direct Ruiz BS Interpretation Positive( A) Comment:Eluate not performed RYDER positive with anti-C3 only. Blood 02/10/2024 8:51 PM ROOMING HOUSE KEEPER 02/10/2024 9:12 PM ROOMING HOUSE KEEPER us Kassidy Pinzon MD LAB BLOOD BANK TEST ORDERAB LES Final Result Performing Organization Address [facility] Co de Phone Number [facility] Department [place] [address] * Phosphorus (02/10/2024 8:51 PM ROOMING HOUSE KEEPER) Phosphorus, pl 3.1 2.3 - 4.5 mg/dL Blood 02/10/2024 8:51 PM ROOMING HOUSE KEEPER 02/10/2024 9:12 PM ROOMING HOUSE KEEPER us Carin Granados MD LAB BLOOD ORDERABLES Tete l Result Performing Organization Address [facility] Co de Phone Number [facility] [place], [place] [id number] * Magnesium (02/10/2024 8:51 PM ROOMING HOUSE KEEPER) Magnesium 2.3 1.4 - 2.5 mg/dL Blood 02/10/2024 8:51 PM ROOMING HOUSE KEEPER 02/10/2024 9:12 PM ROOMING HOUSE KEEPER Carin Granados MD LAB BLOOD ORDERABLES Tete l Result Performing Organization Address [facility] [[email or web address]] de Phone Number [facility] [place] [address] * (ABNORMAL) Hepatic function panel (02/10/2024 8:51 PM ROOMING HOUSE KEEPER) Pathologist [facility] Bilirubin, total 0.8 0.1 - 1.2 mg/dL Bilirubin, direct 0.3 0.1 - 0.3 mg/dL [facility] Protein, pl 7.2 6.5 - 8.5 g/dL [facility] Albumin 3.1(L) 3.5 - 5.0 g/dL [facility] Alk phos 317(H) 40 - 130 Units/L [facility] ALT 26 7 - 45 Units/L [facility] AST 60(H) 10 - 45 Units/L [facility] Blood 02/10/2024 8:51 PM ROOMING HOUSE KEEPER 02/10/2024 9:12 PM ROOMING HOUSE KEEPER Carin Granados MD LAB BLOOD ORDERABLES Tete l Result Performing Organization Address [facility] [[email or web address]] de Phone Number [facility] [place] [address] * Basic metabolic panel (02/10/2024 8:51 PM ROOMING HOUSE KEEPER) Sodium 137 135 - 145 mmol/L Potassium, pl 4.5 3.3 - 4.9 mmol/L [facility] Chloride 100 97 - 110 mmol/L [facility] CO2 31 22 - 32 mmol/L [facility] Anion gap 6 2 - 15 mmol/L [facility] BUN 25 6 - 25 mg/dL [facility] Creatinine 1.05 0.60 - 1.10 mg/dL [facility] Glucose 103 70 - 199 mg/dL [facility] Comment: Interpretive Data Fasting glucose >/= 126 mg/dl is diagnostic for diabetes. Fasting is defined as no caloric intake for at least 8 hours. Fasting glucose between 100 mg/dl to 125 mg/dl is diagnostic of prediabetes. In a patient with classic symptoms of hyperglycemia or hyperglycemic crisis, a random glucose >/= 200 mg/dl is diagnostic for diabetes. In the absence of unequivocal hyperglycemia, results should be confirmed by repeat testing. The classification and Diagnosis of Diabetes Diabetes Care 2021; 46: S19-S40. Current interpretive data was last revised 2022. Calcium 8.9 8.5 - 10.3 mg/dL [facility] Blood 02/10/2024 8:51 PM ROOMING HOUSE KEEPER 02/10/2024 9:12 PM ROOMING HOUSE KEEPER Carin Granados MD LAB BLOOD ORDERABLES Tete l Result Performing Organization Address [facility] Co de Phone Number [facility] Department [place] [address] * POCT glucose (02/10/2024 8:28 PM ROOMING HOUSE KEEPER) Glucose, POC 111 70 - 199 mg/dL Blood 02/10/2024 8:28 PM ROOMING HOUSE KEEPER 02/10/2024 8:28 PM ROOMING HOUSE KEEPER Kassidy Pinzon MD LAB POCT ORDERABLES - DEVIC E Final Result Performing Organization Address [facility]/ZIP Co de Phone Number [facility] Department [place] [address] * POCT glucose (02/10/2024 5:13 PM ROOMING HOUSE KEEPER) Glucose, POC 96 70 - 199 mg/dL Blood 02/10/2024 5:13 PM ROOMING HOUSE KEEPER 02/10/2024 5:13 PM ROOMING HOUSE KEEPER Kassidy Pinzon MD LAB POCT ORDERABLES - DEVIC E Final Result [facility] Department [place] [address] * IR Central Line Placement > 5 Years (02/10/2024 3:32 PM ROOMING HOUSE KEEPER) Anatomical Region Laterality Modality Body N/A Radio Fluoroscop y 02/10/2024 3:42 PM ROOMING HOUSE KEEPER Impressions 02/10/2024 3:42 PM ROOMING HOUSE KEEPER Successful nontunneled catheter placement (5-Guamanian dual-lumen) in the left internal jugular vein. PLAN: 1. The catheter is ready for immediate use. When treatment is completed, this catheter can be removed at the bedside according to standard hospital protocol. 2. With regards to future catheters, please note that the right internal jugular vein is patent. The left internal jugular vein was utilized given the presence of a large right shoulder dressing. Electronically signed by: Abby Mao MD Narrative 02/10/2024 3:42 PM ROOMING HOUSE KEEPER EXAMINATION: NONTUNNELED CENTRAL VENOUS CATHETER PLACEMENT (STD) HISTORY: History sacral wound with plan for long-term intravenous antibiotics. ATTENDING PRESENCE: Abby Mao MD, PhD, the attending radiologist was present from the beginning to the end of the procedure. SEDATION: Local anesthetic only TECHNIQUE: The risks, benefits and alternatives were discussed and informed consent was obtained. Prior to beginning the procedure, [place] Protocol was used to confirm the patient's identity and planned procedure. Fluoroscopy time has been recorded in the electronic medical record. Maximum sterile barriers including cap, mask, hand hygiene, sterile gloves, sterile gown, large sterile drape and 2% chlorhexidine for cutaneous antisepsis were used. The skin over the left neck was sterilely prepped, draped and infiltrated with 1% buffered lidocaine. Prior to the procedure, the target left internal jugular vessel was evaluated by ultrasound, an image of the patent left internal jugular vessel recorded, and this image placed in the patient's chart. After sterile prep, this vessel was accessed using realtime ultrasound guidance. A guidewire and catheter were then passed centrally using fluoroscopic guidance. The intravascular length from the access site to the right atrium was assessed. After dilating the tract, a 5-Guamanian dual lumen aric trimmed to the appropriate intravascular length (18 cm) was inserted over the guidewire. The catheter was flushed with 100U/ml heparin and secured in place. A sterile dressing was applied. ESTIMATED BLOOD LOSS: Minimal. CONDITION: Stable DISCHARGED TO: patient care division. FINDINGS: The final fluoroscopic image demonstrates the catheter with its tip mid right atrium. No complications are seen. Procedure Note Abby Mao MD PhD - 02/10/2024 EXAMINATION: NONTUNNELED CENTRAL VENOUS CATHETER PLACEMENT (STD) HISTORY: History sacral wound with plan for long-term intravenous antibiotics. ATTENDING PRESENCE: Abby Mao MD, PhD, the attending radiologist was present from the beginning to the end of the procedure. SEDATION: Local anesthetic only TECHNIQUE: The risks, benefits and alternatives were discussed and informed consent was obtained. Prior to beginning the procedure, [place] Protocol was used to confirm the patient's identity and planned procedure. Fluoroscopy time has been recorded in the electronic medical record. Maximum sterile barriers including cap, mask, hand hygiene, sterile gloves, sterile gown, large sterile drape and 2% chlorhexidine for cutaneous antisepsis were used. The skin over the left neck was sterilely prepped, draped and infiltrated with 1% buffered lidocaine. Prior to the procedure, the target left internal jugular vessel was evaluated by ultrasound, an image of the patent left internal jugular vessel recorded, and this image placed in the patient's chart. After sterile prep, this vessel was accessed using realtime ultrasound guidance. A guidewire and catheter were then passed centrally using fluoroscopic guidance. The intravascular length from the access site to the right atrium was assessed. After dilating the tract, a 5-Guamanian dual lumen aric trimmed to the appropriate intravascular length (18 cm) was inserted over the guidewire. The catheter was flushed with 100U/ml heparin and secured in place. A sterile dressing was applied. ESTIMATED BLOOD LOSS: Minimal. CONDITION: Stable DISCHARGED TO: patient care division. FINDINGS: The final fluoroscopic image demonstrates the catheter with its tip mid right atrium. No complications are seen. IMPRESSION: Successful nontunneled catheter placement (5-Guamanian dual-lumen) in the left internal jugular vein. PLAN: 1. The catheter is ready for immediate use. When treatment is completed, this catheter can be removed at the bedside according to standard hospital protocol. 2. With regards to future catheters, please note that the right internal jugular vein is patent. The left internal jugular vein was utilized given the presence of a large right shoulder dressing. Electronically signed by: Abby Mao MD Kassidy Pinzon MD IMG IR PROCEDURES Final Res ult * POCT glucose (02/10/2024 12:31 PM ROOMING HOUSE KEEPER) Glucose, POC 119 70 - 199 mg/dL Blood 02/10/2024 12:3 1 PM ROOMING HOUSE KEEPER 02/10/2024 12:31 PM ROOMING HOUSE KEEPER Kassidy Pinzon MD LAB POCT ORDERABLES - DEVIC E Final Result Performing Organization Address [facility] [[email or web address]] de Phone Number [facility] [place] [address] * POCT glucose (02/10/2024 8:15 AM ROOMING HOUSE KEEPER) Glucose, POC 96 70 - 199 mg/dL Blood 02/10/2024 8:15 AM ROOMING HOUSE KEEPER 02/10/2024 8:15 AM ROOMING HOUSE KEEPER Kassidy Pinzon MD LAB POCT ORDERABLES - DEVIC E Final Result Performing Organization Address [facility] [[email or web address]] de Phone Number [facility] [place] [address] * eGFR (02/09/2024 9:52 PM ROOMING HOUSE KEEPER) eGFR 71 >=60 mL/min/1. 73 m2 Comment: Interpretive Data Reference Interval Normal >/= 90 mL/min/1.73m2 Mildly decreased* 60 - 89 mL/min/1.73m2 Mildly to moderately decreased 45 - 59 mL/min/1.73m2 Moderately to severely decreased 30 - 44 mL/min/1.73m2 Severely decreased 15 - 29 mL/min/1.73m2 Kidney Failure < 15 mL/min/1.73m2 *Relative to young adult level Estimated glomerular filtration rate is determined by the 2020 CKD-EPI equation recommended by the National Kidney Foundation (A Unifying Approach to GFR Estimation: Recommendations of the NKF-ASK Task Force on Reassessing the Inclusion of Race in Diagnosing Kidney Disease, JASN 2020). The CKD-EPI equation should not be used for patients with unstable renal function and has not been validated in children and those over 70. Current interpretive data was last reviewed 2021. Blood 02/09/2024 9:52 PM ROOMING HOUSE KEEPER 02/09/2024 10:45 PM ROOMING HOUSE KEEPER us Carin Granados MD LAB BLOOD ORDERABLES Tete palomino Result [facility] Department [place] [address] * Differential, auto (02/09/2024 9:52 PM ROOMING HOUSE KEEPER) Pathologist [facility] Neutrophil abs 3.9 1.5 - 6.5 K/cumm Imm gran abs 0.0 0.0 - 0.1 K/cumm [facility] Lymphocyte abs 1.1 0.8 - 3.3 K/cumm [facility] Monocyte abs 0.7 0.2 - 0.8 K/cumm [facility] Eosinophil abs 0.2 0.0 - 0.5 K/cumm [facility] Basophil abs 0.0 0.0 - 0.1 K/cumm [facility] Neutrophil pct 65.2 % [facility] Comment: Interpretive Data Percent cell count reference ranges are not reported, since discordance with absolute values may lead to misinterpretation of CBC data. Current Interpretive Data was last revised on 2017. Imm gran pct 0.2 % [facility] Comment: Interpretive Data Percent cell count reference ranges are not reported, since discordance with absolute values may lead to misinterpretation of CBC data. Current Interpretive Data was last revised on 2017. Lymphocyte pct 19.0 % [facility] Comment: Interpretive Data Percent cell count reference ranges are not reported, since discordance with absolute values may lead to misinterpretation of CBC data. Current Interpretive Data was last revised on 2017. Monocyte pct 11.8 % [facility] Comment: Interpretive Data Percent cell count reference ranges are not reported, since discordance with absolute values may lead to misinterpretation of CBC data. Current Interpretive Data was last revised on 2017. Eosinophil pct 3.5 % [facility] Comment: Interpretive Data Percent cell count reference ranges are not reported, since discordance with absolute values may lead to misinterpretation of CBC data. Current Interpretive Data was last revised on 2017. Basophil pct 0.3 % [facility] Comment: Interpretive Data Percent cell count reference ranges are not reported, since discordance with absolute values may lead to misinterpretation of CBC data. Current Interpretive Data was last revised on 2017. Blood 02/09/2024 9:52 PM ROOMING HOUSE KEEPER 02/09/2024 10:46 PM ROOMING HOUSE KEEPER Carin Granados MD LAB BLOOD ORDERABLES Tete palomino Result [facility] Department [place] [address] * (ABNORMAL) CBC with auto differential (02/09/2024 9:52 PM ROOMING HOUSE KEEPER) WBC 5.9 3.8 - 9.9 K/cumm Hgb 7.0(L) 11.9 - 15.5 g/dL [facility] Hct 22.8(L) 35.6 - 45.5 % [facility] Plt 230 150 - 400 K/cumm [facility] MPV 9.8 9.1 - 12.3 fL [facility] RBC 2.77(L) 3.90 - 5.20 M/cumm [facility] MCV 82.3 81.3 - 96.4 fL [facility] MCH 25.3(L) 27.1 - 33.3 pg [facility] MCHC 30.7(L) 32.3 - 35.7 g/dL [facility] RDW CV 13.7 11.1 - 14.9 % [facility] RDW SD 41.2 35.7 - 48.1 fL [facility] NRBC abs 0.00 0.00 - 0.01 K/cumm [facility] Blood 02/09/2024 9:52 PM ROOMING HOUSE KEEPER 02/09/2024 10:46 PM ROOMING HOUSE KEEPER Carin Granados MD LAB BLOOD ORDERABLES Tete l Result Performing Organization Address [facility] Co de Phone Number [facility] [place] [address] * Phosphorus (02/09/2024 9:52 PM ROOMING HOUSE KEEPER) Pathologist [facility] Phosphorus, pl 3.1 2.3 - 4.5 mg/dL Blood 02/09/2024 9:52 PM ROOMING HOUSE KEEPER 02/09/2024 10:45 PM ROOMING HOUSE KEEPER Carin Granados MD LAB BLOOD ORDERABLES Tete l Result Performing Organization Address [facility] de Phone Number [facility] [place] [address] * Magnesium (02/09/2024 9:52 PM ROOMING HOUSE KEEPER) [facility] Magnesium 2.2 1.4 - 2.5 mg/dL Blood 02/09/2024 9:52 PM ROOMING HOUSE KEEPER 02/09/2024 10:45 PM ROOMING HOUSE KEEPER Carin Granados MD LAB BLOOD ORDERABLES Tete l Result Performing Organization Address [facility] [[email or web address]] de Phone Number [facility] [place] [address] * Vancomycin level random (02/09/2024 9:52 PM ROOMING HOUSE KEEPER) [facility] Vancomycin random 11.5 mcg/mL Comment: Interpretive Data No reference ranges have been established for random drug levels. Current Interpretive Data was last revised on 2020. Blood 02/09/2024 9:52 PM ROOMING HOUSE KEEPER 02/09/2024 10:45 PM ROOMING HOUSE KEEPER us Kassidy Pinzon MD LAB BLOOD ORDERABLES Final Result Performing Organization Address [facility] [[email or web address]] de Phone Number [facility] [place] [address] * (ABNORMAL) Hepatic function panel (02/09/2024 9:52 PM ROOMING HOUSE KEEPER) Bilirubin, total 0.9 0.1 - 1.2 mg/dL Bilirubin, direct 0.3 0.1 - 0.3 mg/dL [facility] Protein, pl 6.7 6.5 - 8.5 g/dL [facility] Albumin 2.7(L) 3.5 - 5.0 g/dL [facility] Alk phos 306(H) 40 - 130 Units/L [facility] ALT 27 7 - 45 Units/L [facility] AST 60(H) 10 - 45 Units/L [facility] Blood 02/09/2024 9:52 PM ROOMING HOUSE KEEPER 02/09/2024 10:45 PM ROOMING HOUSE KEEPER us Carin Granados MD LAB BLOOD ORDERABLES Tete l Result Performing Organization Address [facility] [[email or web address]] de Phone Number [facility] Department [place] [address] * Basic metabolic panel (02/09/2024 9:52 PM ROOMING HOUSE KEEPER) Sodium 138 135 - 145 mmol/L Potassium, pl 4.3 3.3 - 4.9 mmol/L [facility] Chloride 103 97 - 110 mmol/L [facility] CO2 29 22 - 32 mmol/L [facility] Anion gap 6 2 - 15 mmol/L [facility] BUN 21 6 - 25 mg/dL [facility] Creatinine 1.03 0.60 - 1.10 mg/dL [facility] Glucose 124 70 - 199 mg/dL [facility] Comment: Interpretive Data Fasting glucose >/= 126 mg/dl is diagnostic for diabetes. Fasting is defined as no caloric intake for at least 8 hours. Fasting glucose between 100 mg/dl to 125 mg/dl is diagnostic of prediabetes. In a patient with classic symptoms of hyperglycemia or hyperglycemic crisis, a random glucose >/= 200 mg/dl is diagnostic for diabetes. In the absence of unequivocal hyperglycemia, results should be confirmed by repeat testing. The classification and Diagnosis of Diabetes Diabetes Care 2021; 46: S19-S40. Current interpretive data was last revised 2022. Calcium 8.7 8.5 - 10.3 mg/dL [facility] Blood 02/09/2024 9:52 PM ROOMING HOUSE KEEPER 02/09/2024 10:45 PM ROOMING HOUSE KEEPER Result [facility] Carin Granados MD LAB BLOOD ORDERABLES Tete l Result Performing Organization Address City/[facility]/ZIP Co de Phone Number [facility] Department [place] [address] * POCT glucose (02/09/2024 8:32 PM ROOMING HOUSE KEEPER) Glucose, POC 135 70 - 199 mg/dL Blood 02/09/2024 8:32 PM ROOMING HOUSE KEEPER 02/09/2024 8:32 PM ROOMING HOUSE KEEPER Result [facility] Kassidy Pinzon MD LAB POCT ORDERABLES - DEVIC E Final Result [facility] Department [place] [address] * POCT glucose (02/09/2024 5:55 PM ROOMING HOUSE KEEPER) Glucose, POC 142 70 - 199 mg/dL Blood 02/09/2024 5:55 PM ROOMING HOUSE KEEPER 02/09/2024 5:55 PM ROOMING HOUSE KEEPER Kassidy Pinzon MD LAB POCT ORDERABLES - DEVIC E Final Result Performing Organization Address [facility]/ZIP Co de Phone Number [facility] [place] [address] * (ABNORMAL) Urinalysis reflex to microscopic and culture Urine (02/09/2024 5:09 PM ROOMING HOUSE KEEPER) Color, ur Straw Yellow Clarity, ur Cloudy(A) Clear [facility] Specific gravity, ur 1.014 1.003 - 1.030 [facility] pH, urine 8.0 [facility] Comment: Interpretive Data U rine pH is affected by diet, medications, systemic acid-base disturbances, and renal tubular function. pH may affect urinary stone formation. For example, urine pH below 6.0 may help reduce the tendency for calcium phosphate stones and pH greater than 6.0 may reduce the tendency for uric acid stone formation. Source: [facility] Current Interpretive Data was last revised on 2017 Protein, ur ql Trace Negative [facility] Glucose, ur ql Negative Negative [facility] Ketones, ur Negative Negative [facility] Bilirubin, ur Negative Negative [facility] Blood, ur 1+(A) Negative [facility] Urobilinogen, ur 2.0(A) <2.0 mg/dL [facility] Nitrite, ur Negative Negative [facility] Leukocyte esterase, ur 3+(A) Negative [facility] UA reflex comment Reflex to microscopic UA will be performed. [facility] Urine 02/09/2024 5:09 PM ROOMING HOUSE KEEPER 02/09/2024 5:48 PM ROOMING HOUSE KEEPER Kassidy Pinzon MD LAB MICROBIOLOGY - GENERAL ORDERABLES Final Result Performing Organization Address [facility]/ZIP Co de Phone Number [facility] Department [place] [address] * (ABNORMAL) Urinalysis, microscopic only (02/09/2024 5:09 PM ROOMING HOUSE KEEPER) WBC, ur >50(A) 0 - 5 /HPF RBC, ur 6-10(A) 0 - 2 /HPF [facility] Epithelial cells, squamous, ur 1-5 0 - 5 /HPF [facility] Bacteria, ur Trace(A) [facility] Culture Reflex Comment Reflex to urine culture will be performed. [facility] Urine 02/09/2024 5:09 PM ROOMING HOUSE KEEPER 02/09/2024 5:48 PM ROOMING HOUSE KEEPER us Kassidy Pinzon MD LAB URINE ORDERABLES Final Result Performing Organization Address [facility] Co de Phone Number [facility] [place] [address] * Urine culture Urine (02/09/2024 5:09 PM ROOMING HOUSE KEEPER) Report Final Report: No growth Urine 02/09/2024 5:09 PM ROOMING HOUSE KEEPER 02/09/2024 8:14 PM ROOMING HOUSE KEEPER Narrative [facility] - 02/10/2024 9:34 PM ROOMING HOUSE KEEPER Urine culture reflexed based upon urinalysis results. Testing performed by [facility] ([phone]) us Kassidy Pinzon MD LAB MICROBIOLOGY - GENERAL ORDERABLES Final Result Performing Organization Address [facility] [[email or web address]] de Phone Number [facility] Department [place] [address] * XR Abdomen Ap 1 Vw (02/09/2024 4:09 PM ROOMING HOUSE KEEPER) Anatomical Region Laterality Modality Body, Abdomen N/A Computed Radiogr aphy 02/09/2024 4:36 PM ROOMING HOUSE KEEPER Impressions 02/09/2024 4:54 PM ROOMING HOUSE KEEPER A single view of the abdomen is submitted for evaluation. Gastrostomy balloon overlies the gastric body with contrast retention in the stomach. Normal bowel gas pattern. Cholecystectomy clips. Dictated by: Hui Mcleod MD The radiology attending physician has personally reviewed this study, and had reviewed and/or edited this written report and agrees with it. Electronically signed by: Raheem Marion M.D. Narrative 02/09/2024 4:54 PM ROOMING HOUSE KEEPER EXAMINATION: Abdomen, one view. HISTORY: Abdominal pain. COMPARISON: 12/08/2023 abdominal radiograph, CT 02/03/2024 Procedure Note Raheem Marion MD - 02/09/2024 EXAMINATION: Abdomen, one view. HISTORY: Abdominal pain. COMPARISON: 12/08/2023 abdominal radiograph, CT 02/03/2024 IMPRESSION: A single view of the abdomen is submitted for evaluation. Gastrostomy balloon overlies the gastric body with contrast retention in the stomach. Normal bowel gas pattern. Cholecystectomy clips. Dictated by: Hui Mcleod MD The radiology attending physician has personally reviewed this study, and had reviewed and/or edited this written report and agrees with it. Electronically signed by: Raheem Marion M.D. Kassidy Pinzon MD IMG XR PROCEDURES Final Res ult * POCT glucose (02/09/2024 12:51 PM ROOMING HOUSE KEEPER) Glucose, POC 121 70 - 199 mg/dL Blood 02/09/2024 12:5 1 PM ROOMING HOUSE KEEPER 02/09/2024 12:51 PM ROOMING HOUSE KEEPER Kassidy Pinzon MD LAB POCT ORDERABLES - DEVIC E Final Result Performing Organization Address [facility] [[email or web address]] de Phone Number [facility] Department [place] [address] * POCT glucose (02/09/2024 7:40 AM ROOMING HOUSE KEEPER) Glucose, POC 96 70 - 199 mg/dL Blood 02/09/2024 7:40 AM ROOMING HOUSE KEEPER 02/09/2024 7:40 AM ROOMING HOUSE KEEPER Kassidy Pinzon MD LAB POCT ORDERABLES - DEVIC E Final Result Performing Organization Address [facility]/ZIP Co de Phone Number [facility] Department [place] [address] * eGFR (02/09/2024 12:07 AM ROOMING HOUSE KEEPER) eGFR 77 >=60 mL/min/1. 73 m2 Comment: Interpretive Data Reference Interval Normal >/= 90 mL/min/1.73m2 Mildly decreased* 60 - 89 mL/min/1.73m2 Mildly to moderately decreased 45 - 59 mL/min/1.73m2 Moderately to severely decreased 30 - 44 mL/min/1.73m2 Severely decreased 15 - 29 mL/min/1.73m2 Kidney Failure < 15 mL/min/1.73m2 *Relative to young adult level Estimated glomerular filtration rate is determined by the 2020 CKD-EPI equation recommended by the National Kidney Foundation (A Unifying Approach to GFR Estimation: Recommendations of the NKF-ASK Task Force on Reassessing the Inclusion of Race in Diagnosing Kidney Disease, JASN 2020). The CKD-EPI equation should not be used for patients with unstable renal function and has not been validated in children and those over 70. Current interpretive data was last reviewed 2021. Blood 02/09/2024 12:0 7 AM ROOMING HOUSE KEEPER 02/09/2024 12:57 AM ROOMING HOUSE KEEPER us Carin Granados MD LAB BLOOD ORDERABLES Tete l Result [facility] Department [place] [address] * Creatinine (02/09/2024 12:07 AM ROOMING HOUSE KEEPER) Creatinine 0.97 0.60 - 1.10 mg/dL Blood 02/09/2024 12:0 7 AM ROOMING HOUSE KEEPER 02/09/2024 12:57 AM ROOMING HOUSE KEEPER Narrative [facility] - 02/09/2024 1:23 AM ROOMING HOUSE KEEPER While on enoxaparin Carin Granados MD LAB BLOOD ORDERABLES Tete l Result Performing Organization Address City/State/[facility] Co de Phone Number [facility] Department [place] [address] * eGFR (02/08/2024 9:50 PM ROOMING HOUSE KEEPER) eGFR 76 >=60 mL/min/1. 73 m2 Comment: Interpretive Data Reference Interval Normal >/= 90 mL/min/1.73m2 Mildly decreased* 60 - 89 mL/min/1.73m2 Mildly to moderately decreased 45 - 59 mL/min/1.73m2 Moderately to severely decreased 30 - 44 mL/min/1.73m2 Severely decreased 15 - 29 mL/min/1.73m2 Kidney Failure < 15 mL/min/1.73m2 *Relative to young adult level Estimated glomerular filtration rate is determined by the 2020 CKD-EPI equation recommended by the National Kidney Foundation (A Unifying Approach to GFR Estimation: Recommendations of the NKF-ASK Task Force on Reassessing the Inclusion of Race in Diagnosing Kidney Disease, JASN 2020). The CKD-EPI equation should not be used for patients with unstable renal function and has not been validated in children and those over 70. Current interpretive data was last reviewed 2021. Blood 02/08/2024 9:50 PM ROOMING HOUSE KEEPER 02/08/2024 11:07 PM ROOMING HOUSE KEEPER us Carin Granados MD LAB BLOOD ORDERABLES Tete l Result Performing Organization Address [facility] Co de Phone Number [facility] Department [place] [address] * Differential, auto (02/08/2024 9:50 PM ROOMING HOUSE KEEPER) Neutrophil abs 4.0 1.5 - 6.5 K/cumm Imm gran abs 0.0 0.0 - 0.1 K/cumm [facility] Lymphocyte abs 1.1 0.8 - 3.3 K/cumm [facility] Monocyte abs 0.5 0.2 - 0.8 K/cumm [facility] Eosinophil abs 0.3 0.0 - 0.5 K/cumm [facility] Basophil abs 0.0 0.0 - 0.1 K/cumm [facility] Neutrophil pct 68.3 % [facility] Comment: Interpretive Data Percent cell count reference ranges are not reported, since discordance with absolute values may lead to misinterpretation of CBC data. Current Interpretive Data was last revised on 2017. Imm gran pct 0.3 % [facility] Comment: Interpretive Data Percent cell count reference ranges are not reported, since discordance with absolute values may lead to misinterpretation of CBC data. Current Interpretive Data was last revised on 2017. Lymphocyte pct 17.9 % [facility] Comment: Interpretive Data Percent cell count reference ranges are not reported, since discordance with absolute values may lead to misinterpretation of CBC data. Current Interpretive Data was last revised on 2017. Monocyte pct 8.8 % [facility] Comment: Interpretive Data Percent cell count reference ranges are not reported, since discordance with absolute values may lead to misinterpretation of CBC data. Current Interpretive Data was last revised on 2017. Eosinophil pct 4.4 % [facility] Comment: Interpretive Data Percent cell count reference ranges are not reported, since discordance with absolute values may lead to misinterpretation of CBC data. Current Interpretive Data was last revised on 2017. Basophil pct 0.3 % [facility] Comment: Interpretive Data Percent cell count reference ranges are not reported, since discordance with absolute values may lead to misinterpretation of CBC data. Current Interpretive Data was last revised on 2017. Blood 02/08/2024 9:50 PM ROOMING HOUSE KEEPER 02/08/2024 10:57 PM ROOMING HOUSE KEEPER us Carin Granados MD LAB BLOOD ORDERABLES Tete l Result [facility] Department [place] [address] * (ABNORMAL) CBC with auto differential (02/08/2024 9:50 PM ROOMING HOUSE KEEPER) WBC 5.9 3.8 - 9.9 K/cumm Hgb 8.6(L) 11.9 - 15.5 g/dL [facility] Hct 27.7(L) 35.6 - 45.5 % [facility] Plt 239 150 - 400 K/cumm [facility] MPV 9.5 9.1 - 12.3 fL [facility] RBC 3.37(L) 3.90 - 5.20 M/cumm [facility] MCV 82.2 81.3 - 96.4 fL [facility] MCH 25.5(L) 27.1 - 33.3 pg [facility] MCHC 31.0(L) 32.3 - 35.7 g/dL [facility] RDW CV 13.6 11.1 - 14.9 % [facility] RDW SD 40.8 35.7 - 48.1 fL [facility] NRBC abs 0.00 0.00 - 0.01 K/cumm [facility] Blood 02/08/2024 9:50 PM ROOMING HOUSE KEEPER 02/08/2024 10:57 PM ROOMING HOUSE KEEPER us Carin Granados MD LAB BLOOD ORDERABLES Tete palomino Result [facility] Department [place] [address] * (ABNORMAL) Protime-INR (02/08/2024 9:50 PM ROOMING HOUSE KEEPER) PT 16.5(H) 9.7 - 13.0 sec INR 1.51(H) 0.90 - 1.20 [facility] Comment: Interpretive data Oral anticoagulant therapeutic ranges: Venous thromboembolism prophylaxis or treatment: 2.0-3.0 CARDIOLOGY Standard range: 2.0-3.0 High-intensity range: 2.5-3.5 Refer to indication-specific guidelines for appropriate target ranges for prosthetic heart valve replacement. Current interpretive data was last revised on 2019. Blood 02/08/2024 9:50 PM ROOMING HOUSE KEEPER 02/08/2024 10:56 PM ROOMING HOUSE KEEPER us Kassidy Pinzon MD LAB BLOOD ORDERABLES Final Result Performing Organization Address [facility] Co de Phone Number [facility] [place] [address] * Phosphorus (02/08/2024 9:50 PM ROOMING HOUSE KEEPER) Pathologist [facility] Phosphorus, pl 3.6 2.3 - 4.5 mg/dL Blood 02/08/2024 9:5 0 PM ROOMING HOUSE KEEPER 02/08/2024 10:52 PM ROOMING HOUSE KEEPER Carin Granados MD LAB BLOOD ORDERABLES Tete l Result Performing Organization Address [facility] de Phone Number [facility] Department [place] [address] * Magnesium (02/08/2024 9:50 PM ROOMING HOUSE KEEPER) [facility] Magnesium 2.0 1.4 - 2.5 mg/dL Blood 02/08/2024 9:50 PM ROOMING HOUSE KEEPER 02/08/2024 10:52 PM ROOMING HOUSE KEEPER Carin Granados MD LAB BLOOD ORDERABLES Tete l Result Performing Organization Address [facility] [[email or web address]] de Phone Number [facility] Department [place] [address] * Vancomycin level random (02/08/2024 9:50 PM ROOMING HOUSE KEEPER) Pathologist [facility] Vancomycin random 20.0 mcg/mL Comment: Interpretive Data No reference ranges have been established for random drug levels. Current Interpretive Data was last revised on 2020. Blood 02/08/2024 9:50 PM ROOMING HOUSE KEEPER 02/08/2024 10:52 PM ROOMING HOUSE KEEPER Kassidy Pinzon MD LAB BLOOD ORDERABLES Final Result Performing Organization Address [facility] Co de Phone Number [facility] Department [place] [address] * (ABNORMAL) Hepatic function panel (02/08/2024 9:50 PM ROOMING HOUSE KEEPER) [facility] Bilirubin, total 1.2 0.1 - 1.2 mg/dL Bilirubin, direct 0.3 0.1 - 0.3 mg/dL [facility] Protein, pl 7.2 6.5 - 8.5 g/dL [facility] Albumin 3.0(L) 3.5 - 5.0 g/dL [facility] Alk phos 305(H) 40 - 130 Units/L [facility] ALT 27 7 - 45 Units/L [facility] AST 63(H) 10 - 45 Units/L [facility] Blood 02/08/2024 9:50 PM ROOMING HOUSE KEEPER 02/08/2024 10:52 PM ROOMING HOUSE KEEPER Carin Granados MD LAB BLOOD ORDERABLES Tete l Result [facility] Department [place] [address] * Basic metabolic panel (02/08/2024 9:50 PM ROOMING HOUSE KEEPER) [facility] Sodium 139 135 - 145 mmol/L Potassium, pl 4.6 3.3 - 4.9 mmol/L [facility] Chloride 102 97 - 110 mmol/L [facility] CO2 29 22 - 32 mmol/L [facility] Anion gap 8 2 - 15 mmol/L [facility] BUN 23 6 - 25 mg/dL [facility] Creatinine 0.98 0.60 - 1.10 mg/dL [facility] Glucose 89 70 - 199 mg/dL [facility] Comment: Interpretive Data Fasting glucose >/= 126 mg/dl is diagnostic for diabetes. Fasting is defined as no caloric intake for at least 8 hours. Fasting glucose between 100 mg/dl to 125 mg/dl is diagnostic of prediabetes. In a patient with classic symptoms of hyperglycemia or hyperglycemic crisis, a random glucose >/= 200 mg/dl is diagnostic for diabetes. In the absence of unequivocal hyperglycemia, results should be confirmed by repeat testing. The classification and Diagnosis of Diabetes Diabetes Care 2021; 46: S19-S40. Current interpretive data was last revised 2022. Calcium 9.1 8.5 - 10.3 mg/dL [facility] Blood 02/08/2024 9:50 PM ROOMING HOUSE KEEPER 02/08/2024 10:52 PM ROOMING HOUSE KEEPER us Carin Granados MD LAB BLOOD ORDERABLES Tete l Result [facility] [place] [address] * POCT glucose (02/08/2024 8:31 PM ROOMING HOUSE KEEPER) Glucose, POC 98 70 - 199 mg/dL Blood 02/08/2024 8:31 PM ROOMING HOUSE KEEPER 02/08/2024 8:31 PM ROOMING HOUSE KEEPER us Kassidy Pinzon MD LAB POCT ORDERABLES - DEVIC E Final Result Performing Organization Address [facility] Co de Phone Number [facility] [place] [address] * POCT glucose (02/08/2024 5:56 PM ROOMING HOUSE KEEPER) Glucose, POC 123 70 - 199 mg/dL Blood 02/08/2024 5:56 PM ROOMING HOUSE KEEPER 02/08/2024 5:56 PM ROOMING HOUSE KEEPER Kassidy Pinzon MD LAB POCT ORDERABLES - DEVIC E Final Result Performing Organization Address [facility] Co de Phone Number [facility] [place] [address] * (ABNORMAL) Vancomycin level trough Prior to 3rd dose of 750mg Q12 (02/08/2024 1:55 PM ROOMING HOUSE KEEPER) [facility] Vancomycin trough 24.7(H) 10.0 - 20.0 mcg/mL Comment:Reviewed Blood 02/08/2024 1:55 PM ROOMING HOUSE KEEPER 02/08/2024 2:35 PM ROOMING HOUSE KEEPER Narrative [facility] - 02/08/2024 3:10 PM ROOMING HOUSE KEEPER Prior to 3rd dose of 750mg Q12 Kassidy Pinzon MD LAB BLOOD ORDERABLES Final Result Performing Organization Address [facility] Co de Phone Number [facility] [place] [address] * POCT glucose (02/08/2024 11:40 AM ROOMING HOUSE KEEPER) [facility] Glucose, POC 98 70 - 199 mg/dL Blood 02/08/2024 11:4 0 AM ROOMING HOUSE KEEPER 02/08/2024 11:40 AM ROOMING HOUSE KEEPER Kassidy Pinzon MD LAB POCT ORDERABLES - DEVIC E Final Result Performing Organization Address [facility] [[email or web address]] de Phone Number [facility] [place] [address] * POCT glucose (02/08/2024 8:20 AM ROOMING HOUSE KEEPER) [facility] Glucose, POC 91 70 - 199 mg/dL Blood 02/08/2024 8:20 AM ROOMING HOUSE KEEPER 02/08/2024 8:20 AM ROOMING HOUSE KEEPER Kassidy Pinzon MD LAB POCT ORDERABLES - DEVIC E Final Result Performing Organization Address [facility] [[email or web address]] de Phone Number [facility] [place] [address] * eGFR (02/07/2024 9:30 PM ROOMING HOUSE KEEPER) [facility] eGFR 66 >=60 mL/min/1. 73 m2 Comment: Interpretive Data Reference Interval Normal >/= 90 mL/min/1.73m2 Mildly decreased* 60 - 89 mL/min/1.73m2 Mildly to moderately decreased 45 - 59 mL/min/1.73m2 Moderately to severely decreased 30 - 44 mL/min/1.73m2 Severely decreased 15 - 29 mL/min/1.73m2 Kidney Failure < 15 mL/min/1.73m2 *Relative to young adult level Estimated glomerular filtration rate is determined by the 2020 CKD-EPI equation recommended by the National [employer] (A Unifying Approach to GFR Estimation: Recommendations of the NKF-ASK Task Force on Reassessing the Inclusion of Race in Diagnosing Kidney Disease, JASN 2020). The CKD-EPI equation should not be used for patients with unstable renal function and has not been validated in children and those over 70. Current interpretive data was last reviewed 2021. Blood 02/07/2024 9:30 PM ROOMING HOUSE KEEPER 02/07/2024 10:34 PM ROOMING HOUSE KEEPER Carin Granados MD LAB BLOOD ORDERABLES Tete palomino Result [facility] Department [place] [address] * Differential, auto (02/07/2024 9:30 PM ROOMING HOUSE KEEPER) Pathologist [facility] Neutrophil abs 4.1 1.5 - 6.5 K/cumm Imm gran abs 0.0 0.0 - 0.1 K/cumm [facility] Lymphocyte abs 0.8 0.8 - 3.3 K/cumm [facility] Monocyte abs 0.6 0.2 - 0.8 K/cumm [facility] Eosinophil abs 0.3 0.0 - 0.5 K/cumm [facility] Basophil abs 0.0 0.0 - 0.1 K/cumm [facility] Neutrophil pct 71.0 % [facility] Comment: Interpretive Data Percent cell count reference ranges are not reported, since discordance with absolute values may lead to misinterpretation of CBC data. Current Interpretive Data was last revised on 2017. Imm gran pct 0.5 % [facility] Comment: Interpretive Data Percent cell count reference ranges are not reported, since discordance with absolute values may lead to misinterpretation of CBC data. Current Interpretive Data was last revised on 2017. Lymphocyte pct 14.0 % [facility] Comment: Interpretive Data Percent cell count reference ranges are not reported, since discordance with absolute values may lead to misinterpretation of CBC data. Current Interpretive Data was last revised on 2017. Monocyte pct 9.5 % [facility] Comment: Interpretive Data Percent cell count reference ranges are not reported, since discordance with absolute values may lead to misinterpretation of CBC data. Current Interpretive Data was last revised on 2017. Eosinophil pct 4.8 % [facility] Comment: Interpretive Data Percent cell count reference ranges are not reported, since discordance with absolute values may lead to misinterpretation of CBC data. Current Interpretive Data was last revised on 2017. Basophil pct 0.2 % [facility] Comment: Interpretive Data Percent cell count reference ranges are not reported, since discordance with absolute values may lead to misinterpretation of CBC data. Current Interpretive Data was last revised on 2017. Blood 02/07/2024 9:30 PM ROOMING HOUSE KEEPER 02/07/2024 10:29 PM ROOMING HOUSE KEEPER us Carin Granados MD LAB BLOOD ORDERABLES Tete palomino Result [facility] Department [place] [address] * (ABNORMAL) CBC with auto differential (02/07/2024 9:30 PM ROOMING HOUSE KEEPER) WBC 5.8 3.8 - 9.9 K/cumm Hgb 7.8(L) 11.9 - 15.5 g/dL [facility] Hct 24.7(L) 35.6 - 45.5 % [facility] Plt 226 150 - 400 K/cumm [facility] MPV 9.8 9.1 - 12.3 fL [facility] RBC 2.95(L) 3.90 - 5.20 M/cumm [facility] MCV 83.7 81.3 - 96.4 fL [facility] MCH 26.4(L) 27.1 - 33.3 pg [facility] MCHC 31.6(L) 32.3 - 35.7 g/dL [facility] RDW CV 13.3 11.1 - 14.9 % [facility] RDW SD 40.3 35.7 - 48.1 fL [facility] NRBC abs 0.00 0.00 - 0.01 K/cumm [facility] Blood 02/07/2024 9:30 PM ROOMING HOUSE KEEPER 02/07/2024 10:29 PM ROOMING HOUSE KEEPER Carin Granados MD LAB BLOOD ORDERABLES Tete l Result Performing Organization Address [facility] Co de Phone Number [facility] Department [place] [address] * Phosphorus (02/07/2024 9:30 PM ROOMING HOUSE KEEPER) Phosphorus, pl 4.4 2.3 - 4.5 mg/dL Blood 02/07/2024 9:30 PM ROOMING HOUSE KEEPER 02/07/2024 10:34 PM ROOMING HOUSE KEEPER Carin Granados MD LAB BLOOD ORDERABLES Tete l Result Performing Organization Address [facility] Co de Phone Number [facility] Department [place] [address] * Magnesium (02/07/2024 9:30 PM ROOMING HOUSE KEEPER) Magnesium 2.1 1.4 - 2.5 mg/dL Blood 02/07/2024 9:30 PM ROOMING HOUSE KEEPER 02/07/2024 10:34 PM ROOMING HOUSE KEEPER Carin Granados MD LAB BLOOD ORDERABLES Tete l Result Performing Organization Address [facility] Co de Phone Number [facility] [place] [address] * (ABNORMAL) Hepatic function panel (02/07/2024 9:30 PM ROOMING HOUSE KEEPER) [facility] Bilirubin, total 1.1 0.1 - 1.2 mg/dL Bilirubin, direct 0.3 0.1 - 0.3 mg/dL [facility] Protein, pl 6.7 6.5 - 8.5 g/dL [facility] Albumin 2.7(L) 3.5 - 5.0 g/dL [facility] Alk phos 326(H) 40 - 130 Units/L [facility] ALT 31 7 - 45 Units/L [facility] AST 80(H) 10 - 45 Units/L [facility] Blood 02/07/2024 9:30 PM ROOMING HOUSE KEEPER 02/07/2024 10:34 PM ROOMING HOUSE KEEPER Carin Granados MD LAB BLOOD ORDERABLES Tete l Result [facility] Department [place] [address] * Basic metabolic panel (02/07/2024 9:30 PM ROOMING HOUSE KEEPER) [facility] Sodium 139 135 - 145 mmol/L Potassium, pl 4.5 3.3 - 4.9 mmol/L [facility] Chloride 103 97 - 110 mmol/L [facility] CO2 28 22 - 32 mmol/L [facility] Anion gap 8 2 - 15 mmol/L [facility] BUN 24 6 - 25 mg/dL [facility] Creatinine 1.10 0.60 - 1.10 mg/dL [facility] Glucose 109 70 - 199 mg/dL [facility] Comment: Interpretive Data Fasting glucose >/= 126 mg/dl is diagnostic for diabetes. Fasting is defined as no caloric intake for at least 8 hours. Fasting glucose between 100 mg/dl to 125 mg/dl is diagnostic of prediabetes. In a patient with classic symptoms of hyperglycemia or hyperglycemic crisis, a random glucose >/= 200 mg/dl is diagnostic for diabetes. In the absence of unequivocal hyperglycemia, results should be confirmed by repeat testing. The classification and Diagnosis of Diabetes Diabetes Care 2021; 46: S19-S40. Current interpretive data was last revised 2022. Calcium 8.7 8.5 - 10.3 mg/dL [facility] Blood 02/07/2024 9:30 PM ROOMING HOUSE KEEPER 02/07/2024 10:34 PM ROOMING HOUSE KEEPER us Carin Granados MD LAB BLOOD ORDERABLES Tete l Result [facility] [place] [address] * POCT glucose (02/07/2024 8:20 PM ROOMING HOUSE KEEPER) Glucose, POC 127 70 - 199 mg/dL Blood 02/07/2024 8:20 PM ROOMING HOUSE KEEPER 02/07/2024 8:20 PM ROOMING HOUSE KEEPER us Kassidy Pinzon MD LAB POCT ORDERABLES - DEVIC E Final Result Performing Organization Address [facility] Co de Phone Number [facility] [place] [address] * POCT glucose (02/07/2024 4:41 PM ROOMING HOUSE KEEPER) Glucose, POC 113 70 - 199 mg/dL Blood 02/07/2024 4:41 PM ROOMING HOUSE KEEPER 02/07/2024 4:41 PM ROOMING HOUSE KEEPER Kassidy Pinzon MD LAB POCT ORDERABLES - DEVIC E Final Result Performing Organization Address [facility] Co de Phone Number [facility] [place] [address] * POCT glucose (02/07/2024 12:22 PM ROOMING HOUSE KEEPER) Glucose, POC 77 70 - 199 mg/dL Blood 02/07/2024 12:2 2 PM ROOMING HOUSE KEEPER 02/07/2024 12:22 PM ROOMING HOUSE KEEPER Kassidy Pinzon MD LAB POCT ORDERABLES - DEVIC E Final Result Performing Organization Address [facility] Co de Phone Number [facility] Department [place] [address] * Tissue aerobic and anaerobic culture and gram stain Bone Sacral (02/07/2024 11:30 AM ROOMING HOUSE KEEPER) Direct Specimen Exam Stain: No polymorphonuclear leukocytes seen. No organisms seen. Report Final Report: No growth [facility] Bone (Sacral) 02/07/2024 11: 30 AM ROOMING HOUSE KEEPER 02/07/2024 3:04 PM ROOMING HOUSE KEEPER Narrative [facility] - 02/10/2024 12:53 PM ROOMING HOUSE KEEPER This is NOT Aspirate but instead a Coccyx Bone Biopsy Testing performed by [facility] ([phone]) Specimens submitted from normally sterile body sites will have all bacterial morphotypes identified. Specimens that contain grossly mixed fermin and/or are from body sites that are not normally sterile will be examined for Staphylococcus aureus, Pseudomonas aeruginosa, beta-hemolytic strep, vancomycin-resistant Enterococcus, Bacteroides, Parabacteroides, Clostridium perfringens and fungus. If any of these are isolated, the organism will be reported. Current interpretive data was last revised on 2019. Kassidy Pinzon MD LAB MICROBIOLOGY - GENERAL ORDERABLES Final Result Performing Organization Address [facility] Co de Phone Number [facility] Department [place] [address] * Mycology (fungal) culture and stain Aspirate Sacral (02/07/2024 11:30 AM ROOMING HOUSE KEEPER) Direct Specimen Exam Stain: No Fungal elements seen. Report Final Report: No growth of fungus [facility] Aspirate (Sacral) 02/07/2024 11:30 AM ROOMING HOUSE KEEPER 02/07/2024 3:09 PM ROOMING HOUSE KEEPER Narrative [facility] - 03/06/2024 8:33 AM ROOMING HOUSE KEEPER Coccyx Aspirate Testing performed by [facility] ([phone]). us Carin Granados MD LAB MICROBIOLOGY - GENERA L ORDERABLES Final Result Performing Organization Address [facility] Co de Phone Number [facility] Department [place] [address] * Mycology (fungal) culture Bone Sacral (02/07/2024 11:30 AM ROOMING HOUSE KEEPER) Report Final Report: No growth of fungus Bone (Sacral) 02/07/2024 11: 30 AM ROOMING HOUSE KEEPER 02/07/2024 3:45 PM ROOMING HOUSE KEEPER Narrative [facility] - 03/06/2024 8:33 AM ROOMING HOUSE KEEPER Coccyx Bone Biopsy Testing performed by [facility] ([phone]). us Kassidy Pinzon MD LAB MICROBIOLOGY - GENERAL ORDERABLES Final Result Performing Organization Address [facility] Co de Phone Number [facility] Department [place] [address] * Mycobacteriology (AFB) culture and acid-fast stain Bone Sacral (02/07/2024 11:30 AM ROOMING HOUSE KEEPER) Direct Specimen Exam Stain: No Acid-fast bacilli seen Report Final Report: No growth of acid-fast bacilli [facility] Bone (Sacral) 02/07/2024 11: 30 AM ROOMING HOUSE KEEPER 02/07/2024 3:07 PM ROOMING HOUSE KEEPER Narrative [facility] - 04/09/2024 9:27 AM ROOMING HOUSE KEEPER Coccyx Bone Biopsy Testing performed by [facility] ([phone]). us Carin Granados MD LAB MICROBIOLOGY - GENERA L ORDERABLES Final Result [facility] Department [place] [address] * Mycobacteriology (AFB) culture and acid-fast stain Aspirate Sacral (02/07/2024 11:30 AM ROOMING HOUSE KEEPER) Direct Specimen Exam Stain: No Acid-fast bacilli seen Report Final Report: No growth of acid-fast bacilli [facility] Aspirate (Sacral) 02/07/2024 11:30 AM ROOMING HOUSE KEEPER 02/07/2024 3:09 PM ROOMING HOUSE KEEPER Narrative [facility] - 04/09/2024 9:27 AM ROOMING HOUSE KEEPER Coccyx Aspirate Testing performed by [facility] ([phone]). us Carin Granados MD LAB MICROBIOLOGY - GENERA L ORDERABLES Final Result [facility] Department [place] [address] * Aerobic and anaerobic culture and gram stain Aspirate Sacral (02/07/2024 11:30 AM ROOMING HOUSE KEEPER) Direct Specimen Exam Stain: Rare polymorphonuclear leukocytes seen. No organisms seen. Report Final Report: No growth [facility] Aspirate (Sacral) 02/07/2024 11:30 AM ROOMING HOUSE KEEPER 02/07/2024 3:09 PM ROOMING HOUSE KEEPER Narrative [facility] - 02/10/2024 12:52 PM ROOMING HOUSE KEEPER Coccyx Aspirate Testing performed by [facility] ([phone]) Specimens submitted from normally sterile body sites will have all bacterial morphotypes identified. Specimens that contain grossly mixed fermin and/or are from body sites that are not normally sterile will be examined for Staphylococcus aureus, Pseudomonas aeruginosa, beta-hemolytic strep, vancomycin-resistant Enterococcus, Bacteroides, Parabacteroides, Clostridium perfringens and fungus. If any of these are isolated, the organism will be reported. Current interpretive data was last revised on 2019. us Carin Granados MD LAB MICROBIOLOGY - GENERA L ORDERABLES Final Result [facility] Department [place] [address] * IR Biopsy Deep Bone (02/07/2024 11:29 AM ROOMING HOUSE KEEPER) Anatomical Region Laterality Modality Body N/A Computed Tomogra phy 02/07/2024 1:23 PM ROOMING HOUSE KEEPER Impressions 02/07/2024 5:11 PM ROOMING HOUSE KEEPER Coccygeal bone biopsy under CT guidance. The core specimens were sent to surgical pathology and microbiology. Aspirate was sent to microbiology. Dictated by: Craig Sheppard M.D. The radiology attending physician has personally reviewed this study, and had reviewed and/or edited this written report and agrees with it. 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 Jorge Carolina MD, PHD, the attending radiologist, was present from the beginning to the end of the procedure. Dr. Ness (radiology supervisor) was present and participated in the procedure. SEDATION: Conscious sedation was administered under the attending physician's direction and continuous monitoring by a trained nurse specialist who was independent from those actually performing the procedure. Total monitored sedation time was 26 minutes. During the course of the procedure, the patient received Fentanyl 300 mcg and Versed 3 mg IV. TECHNIQUE: The risks, benefits and alternatives were discussed and informed consent was obtained. Prior to beginning the procedure, [place] Protocol was performed to confirm the patient's identity and the planned procedure. Sterile barriers used during the procedure included cap, mask, hand hygiene, sterile gloves, sterile gown and a sterile drape. Chloraprep was used for cutaneous antisepsis. The patient was placed prone on the procedure table. 10 mL of a 1:1 mixture of 0.25% bupivacaine and 1% lidocaine was injected for subcutaneous and deep anesthesia. 10/12 gauge Arrow OnControl coaxial biopsy device was inserted into the biopsy site and appropriate needle positioning confirmed utilizing CT guidance. 2 core specimens of 10 to 15 mm in length were obtained. 5 mL of sanguinous aspirate was also obtained. The needle was removed and the skin was cleansed with hydrogen peroxide. Dermabond was placed at the needle entry site, which was covered with gauze and Medipore tape. Complication: None Type: None ESTIMATED BLOOD LOSS: <30mL CONDITION: Stable condition. DISCHARGED TO: Patient Care Division FINDINGS: Initial images demonstrate a sacral decubitus ulcer with erosive changes of the coccyx. Subsequent images demonstrate appropriate position of the anesthetic and biopsy needles. Images at the conclusion of the procedure demonstrate expected postbiopsy change without complication. 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 Jorge Carolina MD, PHD, the attending radiologist, was present from the beginning to the end of the procedure. Dr. Ness (radiology supervisor) was present and participated in the procedure. SEDATION: Conscious sedation was administered under the attending physician's direction and continuous monitoring by a trained nurse specialist who was independent from those actually performing the procedure. Total monitored sedation time was 26 minutes. During the course of the procedure, the patient received Fentanyl 300 mcg and Versed 3 mg IV. TECHNIQUE: The risks, benefits and alternatives were discussed and informed consent was obtained. Prior to beginning the procedure, [place] Protocol was performed to confirm the patient's identity and the planned procedure. Sterile barriers used during the procedure included cap, mask, hand hygiene, sterile gloves, sterile gown and a sterile drape. Chloraprep was used for cutaneous antisepsis. The patient was placed prone on the procedure table. 10 mL of a 1:1 mixture of 0.25% bupivacaine and 1% lidocaine was injected for subcutaneous and deep anesthesia. 10/12 gauge Arrow Oris4ontrol coaxial biopsy device was inserted into the biopsy site and appropriate needle positioning confirmed utilizing CT guidance. 2 core specimens of 10 to 15 mm in length were obtained. 5 mL of sanguinous aspirate was also obtained. The needle was removed and the skin was cleansed with hydrogen peroxide. Dermabond was placed at the needle entry site, which was covered with gauze and Medipore tape. Complication: None Type: None ESTIMATED BLOOD LOSS: <30mL CONDITION: Stable condition. DISCHARGED TO: Patient Care Division FINDINGS: Initial images demonstrate a sacral decubitus ulcer with erosive changes of the coccyx. Subsequent images demonstrate appropriate position of the anesthetic and biopsy needles. Images at the conclusion of the procedure demonstrate expected postbiopsy change without complication. IMPRESSION: Coccygeal bone biopsy under CT guidance. The core specimens were sent to surgical pathology and microbiology. Aspirate was sent to microbiology. Dictated by: Craig Sheppard M.D. The radiology attending physician has personally reviewed this study, and had reviewed and/or edited this written report and agrees with it. Electronically signed by: Jorge Carolina MD, PHD us Carin Granados MD IMG IR PROCEDURES Final R esult * Surgical pathology (02/07/2024 11:15 AM ROOMING HOUSE KEEPER) Bone biopsy, metabolic disease 02/07/2024 11:15 AM ROOMING HOUSE KEEPER 02/07/2024 2:18 PM ROOMING HOUSE KEEPER Narrative 02/09/2024 10:35 AM ROOMING HOUSE KEEPER EPIC results best viewed via link to PDF [facility] [place] [address] Note to Patients: This report may contain a detailed description of human tissue sent by a health care provider to the laboratory for pathologic evaluation. The content of this report is essential for diagnosis and may provide important critical findings. This information may be unfamiliar to patients to review without a medical professional present. It is advised that the patient review this report in the presence of a health care provider who can answer questions and explain the details. SURGICAL PATHOLOGY REPORT FINAL Patient Name: RHIANNON VERMA Gender: F : 1985 (Age: 38) Address: [address] [place] [id number] Hospital #: [id number] Taken:02/07/2024 Received:02/07/2024 Reported: 02/09/2024 Patient Type: [facility] Inpatient Service: Medical Location: [facility] Physician(s): Jorge Carolina M.D. Barbara Oliva MD Diagnosis: Bone, coccyx, biopsy - Acute and chronic osteomyelitis gp/02/09/2024 09:09 By this signature, I attest that the above diagnosis is based upon my personal examination of the slides(and/or other material indicated in the diagnosis). Malik Lopez M.D. Report Electronically Reviewed and Signed Out By Malik Lopez M.D. 02/09/2024 10:35:00 Vidhi Stanley D.O. History: The patient is a 38-year-old woman presenting with other closed displaced fracture proximal end of right humerus, initial encounter; pressure injury of sacral region, stage 4. Operative procedure: Coccyx bone biopsy. Specimen(s) Received: A: Coccyx bone biopsy Gross Description: Received in formalin, labeled with the patient s identifiers and coccyx bone biopsy and consists of a single brown core(s) of bone measuring 0.8 cm in length by 0.2 cm in diameter. Labeled A1. Acid 1 decalcification.. Jar 0. sxst/02/07/2024 14:58 PA(s): Lizzy Zhu By this signature, I attest that the above diagnosis is based upon my personal examination of the slides(and/or other material). Addenda/Procedures The performance characteristics of some immunohistochemical stains, fluorescence in-situ hybridization tests and immunophenotyping by flow cytometry cited in this report (if any) were determined by the Surgical Pathology and Flow Cytometry Departments at [facility] as part of an ongoing quality assurance assessor program and in compliance with federally mandated regulations drawn from the Clinical Laboratory Improvement Act of 1988 (CLIA '88). Some of these tests rely on the use of analyte specific reagents and are subject to specific labeling requirements by the US Food and Drug Administration. Such diagnostic tests may only be performed in a facility that is certified by the Department of Health and Human Services as a high complexity laboratory under CLIA '88. The FDA has determined that such clearance or approval is not necessary. This test is used for clinical purposes. It should not be regarded as investigational or for research. Nevertheless, federal rules concerning the medical use of analyte specific reagents require that the following disclaimer be attached to the report: This test was developed and its performance characteristics determined by the Surgical Pathology and Flow Cytometry Departments of [facility]. It has not been cleared or approved by the U. S. Food and Drug Administration. IMAGES AND SCANNED DOCUMENTS, IF INCLUDED, ONLY VIEWABLE IN PDF VERSION OF REPORT us Jorge Carolina MD PhD LAB PATHOLOGY ORDER [place] Final Result * POCT glucose (02/07/2024 8:36 AM ROOMING HOUSE KEEPER) Glucose, POC 79 70 - 199 mg/dL Blood 02/07/2024 8:36 AM ROOMING HOUSE KEEPER 02/07/2024 8:36 AM ROOMING HOUSE KEEPER Kassidy Pinzon MD LAB POCT ORDERABLES - DEVIC E Final Result Performing Organization Address [facility] Co de Phone Number [facility] Department [place] [address] * POCT glucose (02/07/2024 7:46 AM ROOMING HOUSE KEEPER) Glucose, POC 83 70 - 199 mg/dL Blood 02/07/2024 7:46 AM ROOMING HOUSE KEEPER 02/07/2024 7:46 AM ROOMING HOUSE KEEPER Kassidy Pinzon MD LAB POCT ORDERABLES - DEVIC E Final Result Performing Organization Address [facility] Phone Number [facility] Department [place] [address] * (ABNORMAL) Vancomycin level trough Draw trough 30 minutes prior to 4th dose. (02/07/2024 2:37 AM ROOMING HOUSE KEEPER) Vancomycin trough 24.3(H) 10.0 - 20.0 mcg/mL Blood 02/07/2024 2:37 AM ROOMING HOUSE KEEPER 02/07/2024 3:13 AM ROOMING HOUSE KEEPER Narrative [facility] - 02/07/2024 3:44 AM ROOMING HOUSE KEEPER Draw trough 30 minutes prior to 4th dose. us Carin Granados MD LAB BLOOD ORDERABLES Tete l Result Performing Organization Address [facility] Co de Phone Number [facility] Department [place] [address] * eGFR (02/06/2024 9:36 PM ROOMING HOUSE KEEPER) Pathologist [facility] eGFR 71 >=60 mL/min/1. 73 m2 Comment: Interpretive Data Reference Interval Normal >/= 90 mL/min/1.73m2 Mildly decreased* 60 - 89 mL/min/1.73m2 Mildly to moderately decreased 45 - 59 mL/min/1.73m2 Moderately to severely decreased 30 - 44 mL/min/1.73m2 Severely decreased 15 - 29 mL/min/1.73m2 Kidney Failure < 15 mL/min/1.73m2 *Relative to young adult level Estimated glomerular filtration rate is determined by the 2020 CKD-EPI equation recommended by the National Kidney Foundation (A Unifying Approach to GFR Estimation: Recommendations of the NKF-ASK Task Force on Reassessing the Inclusion of Race in Diagnosing Kidney Disease, JASN 2020). The CKD-EPI equation should not be used for patients with unstable renal function and has not been validated in children and those over 70. Current interpretive data was last reviewed 2021. Blood 02/06/2024 9:36 PM ROOMING HOUSE KEEPER 02/06/2024 11:02 PM ROOMING HOUSE KEEPER Carin Granados MD LAB BLOOD ORDERABLES Tete l Result Performing Organization Address [facility] Co de Phone Number [facility] Department [place] [address] * Differential, auto (02/06/2024 9:36 PM ROOMING HOUSE KEEPER) Pathologist [facility] Neutrophil abs 3.8 1.5 - 6.5 K/cumm Imm gran abs 0.0 0.0 - 0.1 K/cumm [facility] Lymphocyte abs 0.9 0.8 - 3.3 K/cumm [facility] Monocyte abs 0.6 0.2 - 0.8 K/cumm [facility] Eosinophil abs 0.3 0.0 - 0.5 K/cumm [facility] Basophil abs 0.0 0.0 - 0.1 K/cumm [facility] Neutrophil pct 68.0 % [facility] Comment: Interpretive Data Percent cell count reference ranges are not reported, since discordance with absolute values may lead to misinterpretation of CBC data. Current Interpretive Data was last revised on 2017. Imm gran pct 0.2 % [facility] Comment: Interpretive Data Percent cell count reference ranges are not reported, since discordance with absolute values may lead to misinterpretation of CBC data. Current Interpretive Data was last revised on 2017. Lymphocyte pct 16.0 % [facility] Comment: Interpretive Data Percent cell count reference ranges are not reported, since discordance with absolute values may lead to misinterpretation of CBC data. Current Interpretive Data was last revised on 2017. Monocyte pct 10.8 % [facility] Comment: Interpretive Data Percent cell count reference ranges are not reported, since discordance with absolute values may lead to misinterpretation of CBC data. Current Interpretive Data was last revised on 2017. Eosinophil pct 4.8 % [facility] Comment: Interpretive Data Percent cell count reference ranges are not reported, since discordance with absolute values may lead to misinterpretation of CBC data. Current Interpretive Data was last revised on 2017. Basophil pct 0.2 % [facility] Comment: Interpretive Data Percent cell count reference ranges are not reported, since discordance with absolute values may lead to misinterpretation of CBC data. Current Interpretive Data was last revised on 2017. Blood 02/06/2024 9:36 PM ROOMING HOUSE KEEPER 02/06/2024 11:03 PM ROOMING HOUSE KEEPER us Carin Granados MD LAB BLOOD ORDERABLES Tete palomino Result [facility] Department [place] [address] * (ABNORMAL) CBC with auto differential (02/06/2024 9:36 PM ROOMING HOUSE KEEPER) [facility] WBC 5.6 3.8 - 9.9 K/cumm Hgb 8.1(L) 11.9 - 15.5 g/dL [facility] Hct 25.1(L) 35.6 - 45.5 % [facility] Plt 226 150 - 400 K/cumm [facility] MPV 9.6 9.1 - 12.3 fL [facility] RBC 3.03(L) 3.90 - 5.20 M/cumm [facility] MCV 82.8 81.3 - 96.4 fL [facility] MCH 26.7(L) 27.1 - 33.3 pg [facility] MCHC 32.3 32.3 - 35.7 g/dL [facility] RDW CV 13.5 11.1 - 14.9 % [facility] RDW SD 41.0 35.7 - 48.1 fL [facility] NRBC abs 0.00 0.00 - 0.01 K/cumm [facility] Blood 02/06/2024 9:36 PM ROOMING HOUSE KEEPER 02/06/2024 11:03 PM ROOMING HOUSE KEEPER us Carin Granados MD LAB BLOOD ORDERABLES Tete l Result Performing Organization Address [facility] Co de Phone Number [facility] [place] [address] * Phosphorus (02/06/2024 9:36 PM ROOMING HOUSE KEEPER) [facility] Phosphorus, pl 4.5 2.3 - 4.5 mg/dL Blood 02/06/2024 9:36 PM ROOMING HOUSE KEEPER 02/06/2024 11:02 PM ROOMING HOUSE KEEPER Carin Granados MD LAB BLOOD ORDERABLES Tete l Result [facility] Department [place] [address] * Magnesium (02/06/2024 9:36 PM ROOMING HOUSE KEEPER) [facility] Magnesium 2.1 1.4 - 2.5 mg/dL Blood 02/06/2024 9:36 PM ROOMING HOUSE KEEPER 02/06/2024 11:02 PM ROOMING HOUSE KEEPER Carin Granados MD LAB BLOOD ORDERABLES Tete l Result Performing Organization Address [facility] [[email or web address]] de Phone Number [facility] [place] [address] * (ABNORMAL) Hepatic function panel (02/06/2024 9:36 PM ROOMING HOUSE KEEPER) [facility] Bilirubin, total 1.0 0.1 - 1.2 mg/dL Bilirubin, direct 0.3 0.1 - 0.3 mg/dL [facility] Protein, pl 6.9 6.5 - 8.5 g/dL [facility] Albumin 2.8(L) 3.5 - 5.0 g/dL [facility] Alk phos 316(H) 40 - 130 Units/L [facility] ALT 30 7 - 45 Units/L [facility] AST 80(H) 10 - 45 Units/L [facility] Blood 02/06/2024 9:36 PM ROOMING HOUSE KEEPER 02/06/2024 11:02 PM ROOMING HOUSE KEEPER Result [facility] Carin Granados MD LAB BLOOD ORDERABLES Tete l Result Performing Organization Address [facility] [[email or web address]] de Phone Number [facility] [place] [address] * Basic metabolic panel (02/06/2024 9:36 PM ROOMING HOUSE KEEPER) [facility] Sodium 135 135 - 145 mmol/L Potassium, pl 4.9 3.3 - 4.9 mmol/L [facility] Chloride 100 97 - 110 mmol/L [facility] CO2 31 22 - 32 mmol/L [facility] Anion gap 4 2 - 15 mmol/L [facility] BUN 24 6 - 25 mg/dL [facility] Creatinine 1.04 0.60 - 1.10 mg/dL [facility] Glucose 83 70 - 199 mg/dL [facility] Comment: Interpretive Data Fasting glucose >/= 126 mg/dl is diagnostic for diabetes. Fasting is defined as no caloric intake for at least 8 hours. Fasting glucose between 100 mg/dl to 125 mg/dl is diagnostic of prediabetes. In a patient with classic symptoms of hyperglycemia or hyperglycemic crisis, a random glucose >/= 200 mg/dl is diagnostic for diabetes. In the absence of unequivocal hyperglycemia, results should be confirmed by repeat testing. The classification and Diagnosis of Diabetes Diabetes Care 2021; 46: S19-S40. Current interpretive data was last revised 2022. Calcium 9.0 8.5 - 10.3 mg/dL [facility] Blood 02/06/2024 9:36 PM ROOMING HOUSE KEEPER 02/06/2024 11:02 PM ROOMING HOUSE KEEPER Carin Granados MD LAB BLOOD ORDERABLES Tete l Result Performing Organization Address [facility]/ZIP Co de Phone Number [facility] Department [place] [address] * POCT glucose (02/06/2024 9:32 PM ROOMING HOUSE KEEPER) Glucose, POC 111 70 - 199 mg/dL Blood 02/06/2024 9:32 PM ROOMING HOUSE KEEPER 02/06/2024 9:32 PM ROOMING HOUSE KEEPER Carin Granados MD LAB POCT ORDERABLES - DEV ICE Final Result [facility] [place] [address] * POCT glucose (02/06/2024 5:33 PM ROOMING HOUSE KEEPER) Glucose, POC 90 70 - 199 mg/dL Blood 02/06/2024 5:33 PM ROOMING HOUSE KEEPER 02/06/2024 5:33 PM ROOMING HOUSE KEEPER Carin Granados MD LAB POCT ORDERABLES - DEV ICE Final Result Performing Organization Address [facility] Co de Phone Number [facility] [place] [address] * POCT glucose (02/06/2024 11:52 AM ROOMING HOUSE KEEPER) Glucose, POC 104 70 - 199 mg/dL Blood 02/06/2024 11:5 2 AM ROOMING HOUSE KEEPER 02/06/2024 11:52 AM ROOMING HOUSE KEEPER Carin Granados MD LAB POCT ORDERABLES - DEV ICE Final Result Performing Organization Address [facility] [[email or web address]] de Phone Number [facility] [place] [address] * POCT glucose (02/06/2024 8:16 AM ROOMING HOUSE KEEPER) Glucose, POC 89 70 - 199 mg/dL Blood 02/06/2024 8:16 AM ROOMING HOUSE KEEPER 02/06/2024 8:16 AM ROOMING HOUSE KEEPER Carin Granados MD LAB POCT ORDERABLES - DEV ICE Final Result Performing Organization Address [facility] [[email or web address]] de Phone Number [facility] Department [place] [address] * Troponin I high-sensitivity series (baseline, 2hr, 4hr, 6hr) (02/06/2024 6:53 AM ROOMING HOUSE KEEPER) Trop I hs <4 <=17 ng/L Comment: Interpretive Data For further hscTnI resources including the diagnostic algorithm and an aid in interpretation, copy and paste this link: [email or web address]/[email or web address] Current Interpretive Data last revised 2019. Blood 02/06/2024 6:53 AM ROOMING HOUSE KEEPER 02/06/2024 7:52 AM ROOMING HOUSE KEEPER us Herrera Orosco MD LAB BLOOD ORDERABLES Final Resu lt Performing Organization Address [facility] Co de Phone Number [facility] Department [place] [address] * eGFR (02/05/2024 10:32 PM ROOMING HOUSE KEEPER) eGFR 67 >=60 mL/min/1. 73 m2 Comment: Interpretive Data Reference Interval Normal >/= 90 mL/min/1.73m2 Mildly decreased* 60 - 89 mL/min/1.73m2 Mildly to moderately decreased 45 - 59 mL/min/1.73m2 Moderately to severely decreased 30 - 44 mL/min/1.73m2 Severely decreased 15 - 29 mL/min/1.73m2 Kidney Failure < 15 mL/min/1.73m2 *Relative to young adult level Estimated glomerular filtration rate is determined by the 2020 CKD-EPI equation recommended by the National Kidney Foundation (A Unifying Approach to GFR Estimation: Recommendations of the NKF-ASK Task Force on Reassessing the Inclusion of Race in Diagnosing Kidney Disease, JASN 2020). The CKD-EPI equation should not be used for patients with unstable renal function and has not been validated in children and those over 70. Current interpretive data was last reviewed 2021. Blood 02/05/2024 10:3 2 PM ROOMING HOUSE KEEPER 02/05/2024 11:39 PM ROOMING HOUSE KEEPER us Carin Granados MD LAB BLOOD ORDERABLES Tete l Result Performing Organization Address [facility]/ZIP Co de Phone Number [facility] Department [place] [address] * Differential, auto (02/05/2024 10:32 PM ROOMING HOUSE KEEPER) Neutrophil abs 4.1 1.5 - 6.5 K/cumm Imm gran abs 0.0 0.0 - 0.1 K/cumm [facility] Lymphocyte abs 0.9 0.8 - 3.3 K/cumm [facility] Monocyte abs 0.8 0.2 - 0.8 K/cumm [facility] Eosinophil abs 0.3 0.0 - 0.5 K/cumm [facility] Basophil abs 0.0 0.0 - 0.1 K/cumm [facility] Neutrophil pct 67.2 % [facility] Comment: Interpretive Data Percent cell count reference ranges are not reported, since discordance with absolute values may lead to misinterpretation of CBC data. Current Interpretive Data was last revised on 2017. Imm gran pct 0.3 % [facility] Comment: Interpretive Data Percent cell count reference ranges are not reported, since discordance with absolute values may lead to misinterpretation of CBC data. Current Interpretive Data was last revised on 2017. Lymphocyte pct 15.0 % [facility] Comment: Interpretive Data Percent cell count reference ranges are not reported, since discordance with absolute values may lead to misinterpretation of CBC data. Current Interpretive Data was last revised on 2017. Monocyte pct 12.3 % [facility] Comment: Interpretive Data Percent cell count reference ranges are not reported, since discordance with absolute values may lead to misinterpretation of CBC data. Current Interpretive Data was last revised on 2017. Eosinophil pct 4.9 % [facility] Comment: Interpretive Data Percent cell count reference ranges are not reported, since discordance with absolute values may lead to misinterpretation of CBC data. Current Interpretive Data was last revised on 2017. Basophil pct 0.3 % [facility] Comment: Interpretive Data Percent cell count reference ranges are not reported, since discordance with absolute values may lead to misinterpretation of CBC data. Current Interpretive Data was last revised on 2017. Blood 02/05/2024 10:3 2 PM ROOMING HOUSE KEEPER 02/05/2024 11:27 PM ROOMING HOUSE KEEPER us Carin Granados MD LAB BLOOD ORDERABLES Tete palomino Result [facility] Department [place] [address] * (ABNORMAL) CBC with auto differential (02/05/2024 10:32 PM ROOMING HOUSE KEEPER) [facility] WBC 6.1 3.8 - 9.9 K/cumm Hgb 7.7(L) 11.9 - 15.5 g/dL [facility] Hct 24.4(L) 35.6 - 45.5 % [facility] Plt 228 150 - 400 K/cumm [facility] MPV 9.8 9.1 - 12.3 fL [facility] RBC 2.94(L) 3.90 - 5.20 M/cumm [facility] MCV 83.0 81.3 - 96.4 fL [facility] MCH 26.2(L) 27.1 - 33.3 pg [facility] MCHC 31.6(L) 32.3 - 35.7 g/dL [facility] RDW CV 13.8 11.1 - 14.9 % [facility] RDW SD 42.0 35.7 - 48.1 fL [facility] NRBC abs 0.00 0.00 - 0.01 K/cumm [facility] Blood 02/05/2024 10:3 2 PM ROOMING HOUSE KEEPER 02/05/2024 11:27 PM ROOMING HOUSE KEEPER Carin Granados MD LAB BLOOD ORDERABLES Tete l Result Performing Organization Address [facility] Co de Phone Number [facility] [place] [address] * Phosphorus (02/05/2024 10:32 PM ROOMING HOUSE KEEPER) [facility] Phosphorus, pl 3.9 2.3 - 4.5 mg/dL Blood 02/05/2024 10:3 2 PM ROOMING HOUSE KEEPER 02/05/2024 11:39 PM ROOMING HOUSE KEEPER Carin Granados MD LAB BLOOD ORDERABLES Tete l Result [facility] [place] [address] * Magnesium (02/05/2024 10:32 PM ROOMING HOUSE KEEPER) [facility] Magnesium 2.5 1.4 - 2.5 mg/dL Blood 02/05/2024 10:3 2 PM ROOMING HOUSE KEEPER 02/05/2024 11:39 PM ROOMING HOUSE KEEPER Carin Granados MD LAB BLOOD ORDERABLES Tete l Result Performing Organization Address [facility] Co de Phone Number [facility] Department [place] [address] * (ABNORMAL) Hepatic function panel (02/05/2024 10:32 PM ROOMING HOUSE KEEPER) [facility] Bilirubin, total 0.8 0.1 - 1.2 mg/dL Bilirubin, direct 0.3 0.1 - 0.3 mg/dL [facility] Protein, pl 6.6 6.5 - 8.5 g/dL [facility] Albumin 2.7(L) 3.5 - 5.0 g/dL [facility] Alk phos 288(H) 40 - 130 Units/L [facility] ALT 25 7 - 45 Units/L [facility] AST 65(H) 10 - 45 Units/L [facility] Blood 02/05/2024 10:3 2 PM ROOMING HOUSE KEEPER 02/05/2024 11:39 PM ROOMING HOUSE KEEPER Carin Granados MD LAB BLOOD ORDERABLES Tete l Result Performing Organization Address [facility] Co de Phone Number [facility] Department [place] [address] * (ABNORMAL) Basic metabolic panel (02/05/2024 10:32 PM ROOMING HOUSE KEEPER) [facility] Sodium 139 135 - 145 mmol/L Potassium, pl 5.4(H) 3.3 - 4.9 mmol/L [facility] Chloride 101 97 - 110 mmol/L [facility] CO2 30 22 - 32 mmol/L [facility] Anion gap 8 2 - 15 mmol/L [facility] BUN 30(H) 6 - 25 mg/dL [facility] Creatinine 1.08 0.60 - 1.10 mg/dL [facility] Glucose 125 70 - 199 mg/dL [facility] Comment: Interpretive Data Fasting glucose >/= 126 mg/dl is diagnostic for diabetes. Fasting is defined as no caloric intake for at least 8 hours. Fasting glucose between 100 mg/dl to 125 mg/dl is diagnostic of prediabetes. In a patient with classic symptoms of hyperglycemia or hyperglycemic crisis, a random glucose >/= 200 mg/dl is diagnostic for diabetes. In the absence of unequivocal hyperglycemia, results should be confirmed by repeat testing. The classification and Diagnosis of Diabetes Diabetes Care 2021; 46: S19-S40. Current interpretive data was last revised 2022. Calcium 8.9 8.5 - 10.3 mg/dL [facility] Blood 02/05/2024 10:3 2 PM ROOMING HOUSE KEEPER 02/05/2024 11:39 PM ROOMING HOUSE KEEPER us Carin Granados MD LAB BLOOD ORDERABLES Tete l Result [facility] [place] [address] * POCT glucose (02/05/2024 9:13 PM ROOMING HOUSE KEEPER) Glucose, POC 171 70 - 199 mg/dL Blood 02/05/2024 9:13 PM ROOMING HOUSE KEEPER 02/05/2024 9:13 PM ROOMING HOUSE KEEPER Carin Granados MD LAB POCT ORDERABLES - DEV ICE Final Result [facility] [place] [address] * POCT glucose (02/05/2024 5:38 PM ROOMING HOUSE KEEPER) Glucose, POC 149 70 - 199 mg/dL Blood 02/05/2024 5:38 PM ROOMING HOUSE KEEPER 02/05/2024 5:38 PM ROOMING HOUSE KEEPER Carin Granados MD LAB POCT ORDERABLES - DEV ICE Final Result Performing Organization Address [facility] Co de Phone Number [facility] Department [place] [address] * Blood culture Blood (02/05/2024 3:25 PM ROOMING HOUSE KEEPER) Report Final Report: No growth Blood 02/05/2024 3:25 PM ROOMING HOUSE KEEPER 02/05/2024 4:30 PM ROOMING HOUSE KEEPER Narrative [facility] - 02/10/2024 7:00 AM ROOMING HOUSE KEEPER Collection->Peripheral 1. Blood cultures are incubated for 4 days on a continuously monitored blood culture system. The first report of a negative culture is issued within 24 hours of receipt of the specimen in the laboratory. 2. Positive culture results are reported as soon as they are detected. 3. The most important factor for detection of microbes in the setting of bloodstream infection is the volume of blood submitted for culture. Failure to collect an optimal blood volume can result in false negative blood cultures. For pediatric patients, the recommended blood volume to collect is 1 mL of blood per year of patient age (up to 20 mL) per blood culture set. For adult patients, 20 mL of blood, divided equally between aerobic and anaerobic blood culture bottles, is recommended for each blood culture set. 4. For blood cultures with Gram-positive cocci, a rapid molecular test for organism identification may be performed using the Wallstrigene Gram-Positive Blood Culture Assay. This assay detects microbial DNA in positive blood culture broth via hybridization of target DNA to capture oligonucleotides on a microarray. This assay has been cleared by the [place] Food and Drug Administration and its performance characteristics have been verified by the [facility] Microbiology Laboratory. 5. For questions about this culture, contact the Microbiology Laboratory at [phone]. Interpretive data was last revised on 2019. Carin Granados MD LAB MICROBIOLOGY - GENERA L ORDERABLES Final Result Performing Organization Address [facility] Co de Phone Number [facility] Department [place] [address] * Blood culture Blood (02/05/2024 3:25 PM ROOMING HOUSE KEEPER) Report Final Report: No growth Blood 02/05/2024 3:25 PM ROOMING HOUSE KEEPER 02/05/2024 4:30 PM ROOMING HOUSE KEEPER Narrative [facility] - 02/10/2024 7:00 AM ROOMING HOUSE KEEPER Collection->Peripheral 1. Blood cultures are incubated for 4 days on a continuously monitored blood culture system. The first report of a negative culture is issued within 24 hours of receipt of the specimen in the laboratory. 2. Positive culture results are reported as soon as they are detected. 3. The most important factor for detection of microbes in the setting of bloodstream infection is the volume of blood submitted for culture. Failure to collect an optimal blood volume can result in false negative blood cultures. For pediatric patients, the recommended blood volume to collect is 1 mL of blood per year of patient age (up to 20 mL) per blood culture set. For adult patients, 20 mL of blood, divided equally between aerobic and anaerobic blood culture bottles, is recommended for each blood culture set. 4. For blood cultures with Gram-positive cocci, a rapid molecular test for organism identification may be performed using the Wallstrigene Gram-Positive Blood Culture Assay. This assay detects microbial DNA in positive blood culture broth via hybridization of target DNA to capture oligonucleotides on a microarray. This assay has been cleared by the [place] Food and Drug Administration and its performance characteristics have been verified by the [facility]biology Laboratory. 5. For questions about this culture, contact the Microbiology Laboratory at [phone]. Interpretive data was last revised on 2019. us Carin Granados MD LAB MICROBIOLOGY - GENERA L ORDERABLES Final Result [facility] [place] [address] * POCT glucose (02/05/2024 2:10 PM ROOMING HOUSE KEEPER) Glucose, POC 170 70 - 199 mg/dL Blood 02/05/2024 2:10 PM ROOMING HOUSE KEEPER 02/05/2024 2:10 PM ROOMING HOUSE KEEPER Carin Granados MD LAB POCT ORDERABLES - DEV ICE Final Result Performing Organization Address [facility] Co de Phone Number [facility] [place] [address] * POCT glucose (02/05/2024 9:18 AM ROOMING HOUSE KEEPER) Glucose, POC 88 70 - 199 mg/dL Blood 02/05/2024 9:18 AM ROOMING HOUSE KEEPER 02/05/2024 9:18 AM ROOMING HOUSE KEEPER Carin Granados MD LAB POCT ORDERABLES - DEV ICE Final Result Performing Organization Address [facility] [[email or web address]] de Phone Number [facility] [place] [address] * Wound Care (02/05/2024 8:16 AM ROOMING HOUSE KEEPER) Narrative Sari Santos DO - 02/05/2024 8:16 AM ROOMING HOUSE KEEPER Andrew Seaman MD 02/05/2024 8:21 AM Wound Care Date/Time: 02/05/2024 8:16 AM Performed by: Andrew Seaman MD Authorized by: Andrew Seaman MD Associated wounds: Wound 12/04/23 Pressure Injury Sacrum Consent: Consent obtained: Verbal Consent given by: Patient Risks, benefits, and alternatives were discussed: yes Risks discussed: Bleeding and infection Alternatives discussed: No treatment [place] protocol: Procedure explained and questions answered to patient or proxy's satisfaction: yes Relevant documents present and verified: yes Test results available: no Imaging studies available: no Required blood products, implants, devices, and special equipment available: no Site/side marked: no Immediately prior to procedure, a time out was called: yes Patient identity confirmed: Verbally with patient Pre-procedure details: Preparation: Patient was prepped and draped in usual sterile fashion Sedation: Sedation type: None Anesthesia: Anesthesia method: None Procedure details: Indications: open wounds Wound location: sacrum. Debridement performed: Yes Debridement type: selective Debridement mechanism: Blade and forceps Devitalized tissue debrided: fibrin and slough Dressing: Packing/drain action: packing change Packing material: quick clot and wet kerlix. Dressing applied: Kerlix Post-procedure details: Procedure completion: Tolerated Andrew Barber MD IN CLINIC/BEDSIDE ORDERABLES Final Result * (ABNORMAL) Potassium, whole blood (02/05/2024 8:08 AM ROOMING HOUSE KEEPER) Potassium, bld 5.4(H) 3.3 - 4.9 mmol/L Blood 02/05/2024 8:08 AM ROOMING HOUSE KEEPER 02/05/2024 8:48 AM ROOMING HOUSE KEEPER Ashkan Reyes MD LAB BLOOD ORDERABLES Final Result Performing Organization Address [facility] [[email or web address]] de Phone Number [facility] Department [place] [address] * (ABNORMAL) Potassium (02/05/2024 7:45 AM ROOMING HOUSE KEEPER) Potassium, pl 5.2(H) 3.3 - 4.9 mmol/L Blood 02/05/2024 7:45 AM ROOMING HOUSE KEEPER 02/05/2024 8:12 AM ROOMING HOUSE KEEPER Narrative [facility] - 02/05/2024 8:32 AM ROOMING HOUSE KEEPER Provider to discontinue after two normal results. Ashkan Reyes MD LAB BLOOD ORDERABLES Final Result Performing Organization Address [facility] Co de Phone Number [facility] [place] [address] * POCT glucose (02/05/2024 6:00 AM ROOMING HOUSE KEEPER) Glucose, POC 124 70 - 199 mg/dL Blood 02/05/2024 6:00 AM ROOMING HOUSE KEEPER 02/05/2024 6:00 AM ROOMING HOUSE KEEPER Carin Granados MD LAB POCT ORDERABLES - DEV ICE Final Result Performing Organization Address City/[facility] Co de Phone Number [facility] [place] [address] * POCT glucose (02/05/2024 5:04 AM ROOMING HOUSE KEEPER) Glucose, POC 119 70 - 199 mg/dL Blood 02/05/2024 5:04 AM ROOMING HOUSE KEEPER 02/05/2024 5:04 AM ROOMING HOUSE KEEPER Carin Granados MD LAB POCT ORDERABLES - DEV ICE Final Result Performing Organization Address [facility] [place] [address] * POCT glucose (02/05/2024 4:11 AM ROOMING HOUSE KEEPER) Glucose, POC 105 70 - 199 mg/dL Blood 02/05/2024 4:11 AM ROOMING HOUSE KEEPER 02/05/2024 4:11 AM ROOMING HOUSE KEEPER Result [facility] Carin Granados MD LAB POCT ORDERABLES - DEV ICE Final Result Performing Organization Address [facility] [place] [address] * ECG 12 lead (02/05/2024 3:22 AM ROOMING HOUSE KEEPER) Ventricular Rate EKG/Min 101 BPM [facility] Atrial Rate 101 BPM [facility] DE-Interval (MSEC) 148 ms [facility] QRS-Interval (MSEC) 82 ms [facility] QT-Interval (MSEC) 338 ms [facility] QTc 438 ms [facility] P [place] 67 degrees [facility] R [place] 21 degrees [facility] T [place] 48 degrees [facility] Diagnosis Sinus tachycardia Otherwise normal ECG When compared with ECG of 21-JAN-2024 15:37, T wave amplitude has increased in Anterior leads Confirmed by KIRSTIN GIVENS M.D ([id number]) on 02/09/2024 11:54:39 AM [facility] 02/05/2024 3:22 AM ROOMING HOUSE KEEPER 02/09/2024 11:54 AM ROOMING HOUSE KEEPER us Ashkan Reyes MD ECG ORDERABLES Final Resu lt [facility] * eGFR (02/04/2024 9:38 PM ROOMING HOUSE KEEPER) Pathologist [facility] eGFR 66 >=60 mL/min/1. 73 m2 Comment: Interpretive Data Reference Interval Normal >/= 90 mL/min/1.73m2 Mildly decreased* 60 - 89 mL/min/1.73m2 Mildly to moderately decreased 45 - 59 mL/min/1.73m2 Moderately to severely decreased 30 - 44 mL/min/1.73m2 Severely decreased 15 - 29 mL/min/1.73m2 Kidney Failure < 15 mL/min/1.73m2 *Relative to young adult level Estimated glomerular filtration rate is determined by the 2020 CKD-EPI equation recommended by the National Kidney Foundation (A Unifying Approach to GFR Estimation: Recommendations of the NKF-ASK Task Force on Reassessing the Inclusion of Race in Diagnosing Kidney Disease, JASN 2020). The CKD-EPI equation should not be used for patients with unstable renal function and has not been validated in children and those over 70. Current interpretive data was last reviewed 2021. Blood 02/04/2024 9:38 PM ROOMING HOUSE KEEPER 02/04/2024 11:21 PM ROOMING HOUSE KEEPER us Carin Granados MD LAB BLOOD ORDERABLES Tete l Result [facility] Department [place] [address] * Differential, auto (02/04/2024 9:38 PM ROOMING HOUSE KEEPER) Neutrophil abs 6.2 1.5 - 6.5 K/cumm Imm gran abs 0.1 0.0 - 0.1 K/cumm [facility] Lymphocyte abs 0.9 0.8 - 3.3 K/cumm [facility] Monocyte abs 0.8 0.2 - 0.8 K/cumm [facility] Eosinophil abs 0.4 0.0 - 0.5 K/cumm [facility] Basophil abs 0.0 0.0 - 0.1 K/cumm [facility] Neutrophil pct 74.5 % [facility] Comment: Interpretive Data Percent cell count reference ranges are not reported, since discordance with absolute values may lead to misinterpretation of CBC data. Current Interpretive Data was last revised on 2017. Imm gran pct 0.6 % [facility] Comment: Interpretive Data Percent cell count reference ranges are not reported, since discordance with absolute values may lead to misinterpretation of CBC data. Current Interpretive Data was last revised on 2017. Lymphocyte pct 10.9 % [facility] Comment: Interpretive Data Percent cell count reference ranges are not reported, since discordance with absolute values may lead to misinterpretation of CBC data. Current Interpretive Data was last revised on 2017. Monocyte pct 9.2 % [facility] Comment: Interpretive Data Percent cell count reference ranges are not reported, since discordance with absolute values may lead to misinterpretation of CBC data. Current Interpretive Data was last revised on 2017. Eosinophil pct 4.4 % [facility] Comment: Interpretive Data Percent cell count reference ranges are not reported, since discordance with absolute values may lead to misinterpretation of CBC data. Current Interpretive Data was last revised on 2017. Basophil pct 0.4 % [facility] Comment: Interpretive Data Percent cell count reference ranges are not reported, since discordance with absolute values may lead to misinterpretation of CBC data. Current Interpretive Data was last revised on 2017. Blood 02/04/2024 9:38 PM ROOMING HOUSE KEEPER 02/04/2024 11:22 PM ROOMING HOUSE KEEPER us Carin Granados MD LAB BLOOD ORDERABLES Tete l Result Performing Organization Address City/State/[facility] [[email or web address]] de Phone Number [facility] Department [place] [address] * (ABNORMAL) CBC with auto differential (02/04/2024 9:38 PM ROOMING HOUSE KEEPER) Pathologist [facility] WBC 8.3 3.8 - 9.9 K/cumm Hgb 7.9(L) 11.9 - 15.5 g/dL [facility] Hct 25.1(L) 35.6 - 45.5 % [facility] Plt 252 150 - 400 K/cumm [facility] MPV 10.4 9.1 - 12.3 fL [facility] RBC 2.97(L) 3.90 - 5.20 M/cumm [facility] MCV 84.5 81.3 - 96.4 fL [facility] MCH 26.6(L) 27.1 - 33.3 pg [facility] MCHC 31.5(L) 32.3 - 35.7 g/dL [facility] RDW CV 14.1 11.1 - 14.9 % [facility] RDW SD 43.5 35.7 - 48.1 fL [facility] NRBC abs 0.00 0.00 - 0.01 K/cumm [facility] Blood 02/04/2024 9:38 PM ROOMING HOUSE KEEPER 02/04/2024 11:22 PM ROOMING HOUSE KEEPER us Carin Granados MD LAB BLOOD ORDERABLES Tete l Result Performing Organization Address [facility] Co de Phone Number [facility] Department [place] [address] * Phosphorus (02/04/2024 9:38 PM ROOMING HOUSE KEEPER) Pathologist [facility] Phosphorus, pl 3.4 2.3 - 4.5 mg/dL Blood 02/04/2024 9:38 PM ROOMING HOUSE KEEPER 02/04/2024 11:21 PM ROOMING HOUSE KEEPER us Carin Granados MD LAB BLOOD ORDERABLES Tete l Result Performing Organization Address [facility] Co de Phone Number [facility] Department [place] [address] * (ABNORMAL) Magnesium (02/04/2024 9:38 PM ROOMING HOUSE KEEPER) Pathologist [facility] Magnesium 2.6(H) 1.4 - 2.5 mg/dL Blood 02/04/2024 9:38 PM ROOMING HOUSE KEEPER 02/04/2024 11:21 PM ROOMING HOUSE KEEPER Carin Granados MD LAB BLOOD ORDERABLES Tete l Result Performing Organization Address [facility] de Phone Number [facility] [place] [address] * (ABNORMAL) Hepatic function panel (02/04/2024 9:38 PM ROOMING HOUSE KEEPER) [facility] Bilirubin, total 0.8 0.1 - 1.2 mg/dL Bilirubin, direct 0.2 0.1 - 0.3 mg/dL [facility] Comment:Reviewed Protein, pl 6.6 6.5 - 8.5 g/dL [facility] Albumin 2.5(L) 3.5 - 5.0 g/dL [facility] Alk phos 268(H) 40 - 130 Units/L [facility] ALT 17 7 - 45 Units/L [facility] AST 61(H) 10 - 45 Units/L [facility] Blood 02/04/2024 9:38 PM ROOMING HOUSE KEEPER 02/04/2024 11:21 PM ROOMING HOUSE KEEPER Carin Granados MD LAB BLOOD ORDERABLES Tete l Result Performing Organization Address [facility] Co de Phone Number [facility] [place], [place] [id number] * (ABNORMAL) Basic metabolic panel (02/04/2024 9:38 PM ROOMING HOUSE KEEPER) [facility] Sodium 137 135 - 145 mmol/L Potassium, pl 5.9(H) 3.3 - 4.9 mmol/L [facility] Chloride 103 97 - 110 mmol/L [facility] CO2 28 22 - 32 mmol/L [facility] Anion gap 6 2 - 15 mmol/L [facility] BUN 35(H) 6 - 25 mg/dL [facility] Creatinine 1.10 0.60 - 1.10 mg/dL [facility] Glucose 92 70 - 199 mg/dL [facility] Comment: Interpretive Data Fasting glucose >/= 126 mg/dl is diagnostic for diabetes. Fasting is defined as no caloric intake for at least 8 hours. Fasting glucose between 100 mg/dl to 125 mg/dl is diagnostic of prediabetes. In a patient with classic symptoms of hyperglycemia or hyperglycemic crisis, a random glucose >/= 200 mg/dl is diagnostic for diabetes. In the absence of unequivocal hyperglycemia, results should be confirmed by repeat testing. The classification and Diagnosis of Diabetes Diabetes Care 2021; 46: S19-S40. Current interpretive data was last revised 2022. Calcium 8.5 8.5 - 10.3 mg/dL [facility] Blood 02/04/2024 9:38 PM ROOMING HOUSE KEEPER 02/04/2024 11:21 PM ROOMING HOUSE KEEPER us Carin Granados MD LAB BLOOD ORDERABLES Tete l Result Performing Organization Address City/[facility]/ZIP Co de Phone Number [facility] [place] [address] * POCT glucose (02/04/2024 9:04 PM ROOMING HOUSE KEEPER) [facility] Glucose, POC 105 70 - 199 mg/dL Blood 02/04/2024 9:04 PM ROOMING HOUSE KEEPER 02/04/2024 9:04 PM ROOMING HOUSE KEEPER Carin Granados MD LAB POCT ORDERABLES - DEV ICE Final Result Performing Organization Address [facility]/ZIP Co de Phone Number [facility] Department [place] [address] * POCT glucose (02/04/2024 5:12 PM ROOMING HOUSE KEEPER) Glucose, POC 108 70 - 199 mg/dL Blood 02/04/2024 5:12 PM ROOMING HOUSE KEEPER 02/04/2024 5:12 PM ROOMING HOUSE KEEPER Carin Granados MD LAB POCT ORDERABLES - DEV ICE Final Result Performing Organization Address [facility] [[email or web address]] de Phone Number [facility] Department [place] [address] * POCT glucose (02/04/2024 11:56 AM ROOMING HOUSE KEEPER) Glucose, POC 104 70 - 199 mg/dL Blood 02/04/2024 11:5 6 AM ROOMING HOUSE KEEPER 02/04/2024 11:56 AM ROOMING HOUSE KEEPER Carin Granados MD LAB POCT ORDERABLES - DEV ICE Final Result Performing Organization Address [facility] de Phone Number [facility] Department [place] [address] * (ABNORMAL) Hemoglobin and hematocrit (02/04/2024 11:16 AM ROOMING HOUSE KEEPER) [facility] Hgb 7.8(L) 11.9 - 15.5 g/dL Hct 24.2(L) 35.6 - 45.5 % [facility] Blood 02/04/2024 11:1 6 AM ROOMING HOUSE KEEPER 02/04/2024 12:15 PM ROOMING HOUSE KEEPER Carin Granados MD LAB BLOOD ORDERABLES Tete l Result Performing Organization Address [facility] [[email or web address]] de Phone Number [facility] [place] [address] * MRI Sacrum Coccyx WO Contrast (02/04/2024 10:53 AM ROOMING HOUSE KEEPER) Anatomical Region Laterality Modality Pelvis N/A Magnetic Resonan ce 02/04/2024 1:34 PM ROOMING HOUSE KEEPER Impressions 02/04/2024 2:11 PM ROOMING HOUSE KEEPER 1. 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 2. 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 Dictated by: Patric Schmitt D.O. The radiology attending physician has personally reviewed this study, and had reviewed and/or edited this written report and agrees with it. Electronically signed by: Jayme Page M.D. Narrative 02/04/2024 2:11 PM ROOMING HOUSE KEEPER EXAMINATION: MRI SACRUM COCCYX WO CONTRAST HISTORY: Suspicion for sacral/coccygeal Osteomyelitis COMPARISON: CT 02/03/2024 TECHNIQUE: Multiplanar, multisequence MR images of the pelvis with small field of view dedicated images of the sacrum and coccyx. FINDINGS: Sacral decubitus ulcer extending to the underlying coccyx with T2/STIR hyperintense marrow signal throughout the coccyx and left S5 sacral body with corresponding T1 hypointense signal, compatible with osteomyelitis. No displaced tear of the acetabular labrum bilaterally. No high-grade hip chondrosis bilaterally. No hip effusion. Normal appearance of the visualized lumbar spine without significant degenerative disc changes. Normal sacroiliac joints and pubic symphysis. Intact bilateral iliopsoas, gluteal, and hamstring tendons. No bursitis. Generalized intramuscular edema throughout the parapelvic musculature with mild fatty infiltration, likely acute on chronic denervation changes. Normal signal and morphology of the sciatic nerves. Generalized subcutaneous soft tissue edema about the pelvis. No pelvic lymphadenopathy. Small volume pelvic free fluid, likely physiologic. Procedure Note Jayme Page MD - 02/04/2024 EXAMINATION: MRI SACRUM COCCYX WO CONTRAST HISTORY: Suspicion for sacral/coccygeal Osteomyelitis COMPARISON: CT 02/03/2024 TECHNIQUE: Multiplanar, multisequence MR images of the pelvis with small field of view dedicated images of the sacrum and coccyx. FINDINGS: Sacral decubitus ulcer extending to the underlying coccyx with T2/STIR hyperintense marrow signal throughout the coccyx and left S5 sacral body with corresponding T1 hypointense signal, compatible with osteomyelitis. No displaced tear of the acetabular labrum bilaterally. No high-grade hip chondrosis bilaterally. No hip effusion. Normal appearance of the visualized lumbar spine without significant degenerative disc changes. Normal sacroiliac joints and pubic symphysis. Intact bilateral iliopsoas, gluteal, and hamstring tendons. No bursitis. Generalized intramuscular edema throughout the parapelvic musculature with mild fatty infiltration, likely acute on chronic denervation changes. Normal signal and morphology of the sciatic nerves. Generalized subcutaneous soft tissue edema about the pelvis. No pelvic lymphadenopathy. Small volume pelvic free fluid, likely physiologic. IMPRESSION: 1. 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 2. 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 Dictated by: Patric Schmitt D.O. The radiology attending physician has personally reviewed this study, and had reviewed and/or edited this written report and agrees with it. Electronically signed by: Jayme Page M.D. Carin Granados MD IMG MRI PROCEDURES Final Result * Transfuse RBC (02/04/2024 7:44 AM ROOMING HOUSE KEEPER) Blood Mariano Eid MD BLOOD TRANSFUSION ORDERABLES F inal Result Performing Organization Address [facility] Co de Phone Number [facility] [place] [address] * POCT glucose (02/04/2024 7:44 AM ROOMING HOUSE KEEPER) [facility] Signature Glucose, POC 107 70 - 199 mg/dL Blood 02/04/2024 7:44 AM ROOMING HOUSE KEEPER 02/04/2024 7:44 AM ROOMING HOUSE KEEPER Carin Granados MD LAB POCT ORDERABLES - DEV ICE Final Result Performing Organization Address [facility] Co de Phone Number [facility] [place] [address] * Type and screen (02/04/2024 1:27 AM ROOMING HOUSE KEEPER) [facility] ABO Rh O Positive Ruiz, indirect Negative [facility] Blood 02/04/2024 1:27 AM ROOMING HOUSE KEEPER 02/04/2024 2:20 AM ROOMING HOUSE KEEPER Narrative [facility] - 02/04/2024 3:56 AM ROOMING HOUSE KEEPER Has the patient had Daratumumab or Isatuximab in the past 6 months?->Unknown Mariano Eid MD LAB BLOOD BANK TEST ORDERABLES Final Result Performing Organization Address [facility] [[email or web address]] de Phone Number [facility] [place] [address] * Prepare RBC: 1 Units (02/04/2024 12:43 AM ROOMING HOUSE KEEPER) [facility] Product code [id number] Unit Number [id number] [facility] Product Blood Type OPOS [facility] Dispense Status PRESUMED TRANSFUSED [facility] Blood 02/04/2024 12:4 3 AM ROOMING HOUSE KEEPER 02/04/2024 12:43 AM ROOMING HOUSE KEEPER Narrative [facility] - 02/04/2024 4:01 PM ROOMING HOUSE KEEPER Are special requirements needed? (All products are leukoreduced and CMV- safe)- >No Date required:-[id number] LRRBC # of Ccaqy-[id number] Reasons:-Hgb <7 g/dL} Mariano Eid MD BLOOD BANK PRODUCT ORDERABLES Final Result Performing Organization Address [facility] Co de Phone Number [facility] [place] [address] * (ABNORMAL) eGFR (02/03/2024 9:45 PM ROOMING HOUSE KEEPER) [facility] eGFR 58(L) >=60 mL/min/1. 73 m2 Comment: Interpretive Data Reference Interval Normal >/= 90 mL/min/1.73m2 Mildly decreased* 60 - 89 mL/min/1.73m2 Mildly to moderately decreased 45 - 59 mL/min/1.73m2 Moderately to severely decreased 30 - 44 mL/min/1.73m2 Severely decreased 15 - 29 mL/min/1.73m2 Kidney Failure < 15 mL/min/1.73m2 *Relative to young adult level Estimated glomerular filtration rate is determined by the 2020 CKD-EPI equation recommended by the National Kidney Foundation (A Unifying Approach to GFR Estimation: Recommendations of the NKF-ASK Task Force on Reassessing the Inclusion of Race in Diagnosing Kidney Disease, JASN 2020). The CKD-EPI equation should not be used for patients with unstable renal function and has not been validated in children and those over 70. Current interpretive data was last reviewed 2021. Blood 02/03/2024 9:45 PM ROOMING HOUSE KEEPER 02/03/2024 10:44 PM ROOMING HOUSE KEEPER us Meme Santana MD LAB BLOOD ORDERABLES Fin al Result [facility] Department [place] [address] * Differential, auto (02/03/2024 9:45 PM ROOMING HOUSE KEEPER) Neutrophil abs 4.8 1.5 - 6.5 K/cumm Imm gran abs 0.0 0.0 - 0.1 K/cumm [facility] Lymphocyte abs 1.0 0.8 - 3.3 K/cumm [facility] Monocyte abs 0.8 0.2 - 0.8 K/cumm [facility] Eosinophil abs 0.2 0.0 - 0.5 K/cumm [facility] Basophil abs 0.0 0.0 - 0.1 K/cumm [facility] Neutrophil pct 70.6 % [facility] Comment: Interpretive Data Percent cell count reference ranges are not reported, since discordance with absolute values may lead to misinterpretation of CBC data. Current Interpretive Data was last revised on 2017. Imm gran pct 0.4 % [facility] Comment: Interpretive Data Percent cell count reference ranges are not reported, since discordance with absolute values may lead to misinterpretation of CBC data. Current Interpretive Data was last revised on 2017. Lymphocyte pct 14.7 % [facility] Comment: Interpretive Data Percent cell count reference ranges are not reported, since discordance with absolute values may lead to misinterpretation of CBC data. Current Interpretive Data was last revised on 2017. Monocyte pct 11.0 % [facility] Comment: Interpretive Data Percent cell count reference ranges are not reported, since discordance with absolute values may lead to misinterpretation of CBC data. Current Interpretive Data was last revised on 2017. Eosinophil pct 3.2 % [facility] Comment: Interpretive Data Percent cell count reference ranges are not reported, since discordance with absolute values may lead to misinterpretation of CBC data. Current Interpretive Data was last revised on 2017. Basophil pct 0.1 % [facility] Comment: Interpretive Data Percent cell count reference ranges are not reported, since discordance with absolute values may lead to misinterpretation of CBC data. Current Interpretive Data was last revised on 2017. Blood 02/03/2024 9:45 PM ROOMING HOUSE KEEPER 02/03/2024 10:44 PM ROOMING HOUSE KEEPER us Meme Santana MD LAB BLOOD ORDERABLES Fin al Result [facility] Department [place] [address] * (ABNORMAL) CBC with auto differential (02/03/2024 9:45 PM ROOMING HOUSE KEEPER) WBC 6.8 3.8 - 9.9 K/cumm Hgb 6.7(L) 11.9 - 15.5 g/dL [facility] Hct 21.5(L) 35.6 - 45.5 % [facility] Plt 194 150 - 400 K/cumm [facility] MPV 10.3 9.1 - 12.3 fL [facility] RBC 2.56(L) 3.90 - 5.20 M/cumm [facility] MCV 84.0 81.3 - 96.4 fL [facility] MCH 26.2(L) 27.1 - 33.3 pg [facility] MCHC 31.2(L) 32.3 - 35.7 g/dL [facility] RDW CV 14.2 11.1 - 14.9 % [facility] RDW SD 43.0 35.7 - 48.1 fL [facility] NRBC abs 0.00 0.00 - 0.01 K/cumm [facility] Blood 02/03/2024 9:45 PM ROOMING HOUSE KEEPER 02/03/2024 10:44 PM ROOMING HOUSE KEEPER Carin Granados MD LAB BLOOD ORDERABLES Tete l Result [facility] [place] [address] * Phosphorus (02/03/2024 9:45 PM ROOMING HOUSE KEEPER) Phosphorus, pl 3.6 2.3 - 4.5 mg/dL Blood 02/03/2024 9:45 PM ROOMING HOUSE KEEPER 02/03/2024 10:44 PM ROOMING HOUSE KEEPER Carin Granados MD LAB BLOOD ORDERABLES Tete l Result Performing Organization Address [facility]/ZIP Co de Phone Number [facility] [place] [address] * (ABNORMAL) Magnesium (02/03/2024 9:45 PM ROOMING HOUSE KEEPER) Magnesium 2.9(H) 1.4 - 2.5 mg/dL Blood 02/03/2024 9:45 PM ROOMING HOUSE KEEPER 02/03/2024 10:44 PM ROOMING HOUSE KEEPER Carin Granados MD LAB BLOOD ORDERABLES Tete l Result [facility] [place] [address] * (ABNORMAL) Hepatic function panel (02/03/2024 9:45 PM ROOMING HOUSE KEEPER) [facility] Bilirubin, total 0.6 0.1 - 1.2 mg/dL Bilirubin, direct <0.2 0.1 - 0.3 mg/dL [facility] Comment:Reviewed Protein, pl 6.1(L) 6.5 - 8.5 g/dL [facility] Albumin 2.4(L) 3.5 - 5.0 g/dL [facility] Alk phos 228(H) 40 - 130 Units/L [facility] ALT 16 7 - 45 Units/L [facility] AST 36 10 - 45 Units/L [facility] Blood 02/03/2024 9:45 PM ROOMING HOUSE KEEPER 02/03/2024 10:44 PM ROOMING HOUSE KEEPER us Carin Granados MD LAB BLOOD ORDERABLES Tete l Result [facility] Department [place] [address] * (ABNORMAL) Basic metabolic panel (02/03/2024 9:45 PM ROOMING HOUSE KEEPER) [facility] Sodium 139 135 - 145 mmol/L Potassium, pl 5.2(H) 3.3 - 4.9 mmol/L [facility] Chloride 104 97 - 110 mmol/L [facility] CO2 30 22 - 32 mmol/L [facility] Anion gap 5 2 - 15 mmol/L [facility] BUN 31(H) 6 - 25 mg/dL [facility] Creatinine 1.22(H) 0.60 - 1.10 mg/dL [facility] Glucose 170 70 - 199 mg/dL [facility] Comment: Interpretive Data Fasting glucose >/= 126 mg/dl is diagnostic for diabetes. Fasting is defined as no caloric intake for at least 8 hours. Fasting glucose between 100 mg/dl to 125 mg/dl is diagnostic of prediabetes. In a patient with classic symptoms of hyperglycemia or hyperglycemic crisis, a random glucose >/= 200 mg/dl is diagnostic for diabetes. In the absence of unequivocal hyperglycemia, results should be confirmed by repeat testing. The classification and Diagnosis of Diabetes Diabetes Care 202; 46: S19-S40. Current interpretive data was last revised 2022. Calcium 8.2(L) 8.5 - 10.3 mg/dL [facility] Blood 02/03/2024 9:45 PM ROOMING HOUSE KEEPER 02/03/2024 10:44 PM ROOMING HOUSE KEEPER Carin Granados MD LAB BLOOD ORDERABLES Tete l Result Performing Organization Address [facility]/ZIP Co de Phone Number [facility] [place] [address] * POCT glucose (02/03/2024 9:39 PM ROOMING HOUSE KEEPER) Glucose, POC 190 70 - 199 mg/dL Blood 02/03/2024 9:39 PM ROOMING HOUSE KEEPER 02/03/2024 9:39 PM ROOMING HOUSE KEEPER Carin Granados MD LAB POCT ORDERABLES - DEV ICE Final Result Performing Organization Address [facility] Co de Phone Number [facility] [place] [address] * POCT glucose (02/03/2024 5:47 PM ROOMING HOUSE KEEPER) Glucose, POC 131 70 - 199 mg/dL Blood 02/03/2024 5:47 PM ROOMING HOUSE KEEPER 02/03/2024 5:47 PM ROOMING HOUSE KEEPER Carin Granados MD LAB POCT ORDERABLES - DEV ICE Final Result Performing Organization Address [facility] Co de Phone Number [facility] [place] [address] * POCT glucose (02/03/2024 2:37 PM ROOMING HOUSE KEEPER) Glucose, POC 138 70 - 199 mg/dL Blood 02/03/2024 2:37 PM ROOMING HOUSE KEEPER 02/03/2024 2:37 PM ROOMING HOUSE KEEPER us Carin Granados MD LAB POCT ORDERABLES - DEV ICE Final Result [facility] Department [place] [address] * CT Abdomen Pelvis W Contrast (02/03/2024 10:03 AM ROOMING HOUSE KEEPER) Anatomical Region Laterality Modality Body N/A Computed Tomogra phy 02/03/2024 10:5 0 AM ROOMING HOUSE KEEPER Impressions 02/03/2024 12:25 PM ROOMING HOUSE KEEPER 1. Improving left upper pole and left interpolar renal fluid collections, consistent with improving suppurative pyelonephritis/renal abscesses. No new renal or perinephric fluid collection. 2. Sacral decubitus ulcer with soft tissue thickening and possible erosion and sclerosis of the coccyx, which may represent developing osteomyelitis. 3. New heterogeneous consolidation within the dependent portions of the partially imaged lungs, likely representing aspiration pneumonia superimposed on atelectasis. 4. Findings of cirrhosis, portal hypertension, and volume overload as evidenced by splenomegaly, a recanalized umbilical vein, mesenteric edema, small volume ascites, and body wall edema. 5. Soft tissue thickening along the gastrostomy tube tract, which may be infectious or inflammatory. Recommend correlation with exam and gastrostomy tube functioning. No drainable fluid collection. Dictated by: Rashawn Phan MD The radiology attending physician has personally reviewed this study, and had reviewed and/or edited this written report and agrees with it. Electronically signed by: Zeke Chris M.D. Narrative 02/03/2024 12:25 PM ROOMING HOUSE KEEPER EXAMINATION: Computed tomography of the abdomen and pelvis with intravenous contrast HISTORY: 38-year-old female with right humeral fracture status post fixation, sacral decubitus ulcer, and pyelonephritis. This exam was requested due to concerns for abdominal abscess. TECHNIQUE: Transaxial computed tomographic images of the abdomen and pelvis were obtained with intravenous contrast according to the standard protocol after the uneventful administration of 69 mL Opti-Ray 350 intravenous contrast. COMPARISON: CT 01/24/2024 FINDINGS: The partially imaged lung bases demonstrate new dante-bronchovascular consolidation within the lung bases with heterogeneous attenuation. No pleural effusion. The heart size is normal. No pericardial effusion. There is high density material within the partially imaged distal esophagus and stomach, which may represent food or medication. Again seen is a nodular liver with fibrotic changes and capsular retraction in keeping with the patient's history of cirrhosis. No discrete hepatic lesion. The main portal vein, splenic vein, and superior mesenteric vein are patent. There is recanalization of the umbilical vein. The gallbladder is surgically absent. There is no intrahepatic or extrahepatic biliary ductal dilatation. The pancreas is normal. There is unchanged splenomegaly. The adrenal glands are normal. The kidneys enhance symmetrically without hydronephrosis. Again seen is a thick walled and irregular fluid collection along the upper pole of the left kidney, which slightly decreased in size compared to 01/24/2024 when remeasured in a similar fashion and now measures 5 cm x 2.6 cm in greatest transaxial dimension (image 85). There is an additional smaller, ill-defined thick walled fluid collection at the left interpolar kidney, which measures 2.3 cm, previously 2.7 cm in greatest transaxial dimension (image 105). There is left perinephric fat stranding with a small amount of fluid tracking along the left lateroconal and Gerota's fascia, which is similar to prior. The urinary bladder is mildly distended. The uterus is anteverted. There are physiologic follicular ovarian cysts with prominent round ligaments. No suspicious adnexal masses. There is a percutaneous gastrostomy tube in place with tip and balloon in the gastric body. There is unchanged soft tissue thickening surrounding the gastrostomy tract without drainable fluid collection. The caliber of the small bowel and colon is within normal limits. There is no bowel obstruction or pneumoperitoneum. The caliber of the abdominal aorta is within normal limits. There is moderate calcification of the celiac axis, superior mesenteric artery, and inferior mesenteric artery. There are prominent by number but subcentimeter retroperitoneal lymph nodes, worse on the left near the kidney which are similar to prior. For example, there is a unchanged 8 mm left retroperitoneal lymph node (image 124). There are prominent but subcentimeter mesenteric lymph nodes and gastrohepatic lymph nodes measuring up to 8 mm (image 15). There is mild mesenteric edema and small volume ascites. There is unchanged soft tissue thickening along the umbilicus without a drainable fluid collection. There is mild presacral edema. Again seen is a sacral decubitus ulcer with soft tissue thickening adjacent to the coccyx with possible erosion and sclerosis along the 1st segment of the coccyx (series 5, image 59). There is no drainable fluid collection. Procedure Note Zeke Chris MD - 02/03/2024 EXAMINATION: Computed tomography of the abdomen and pelvis with intravenous contrast HISTORY: 38-year-old female with right humeral fracture status post fixation, sacral decubitus ulcer, and pyelonephritis. This exam was requested due to concerns for abdominal abscess. TECHNIQUE: Transaxial computed tomographic images of the abdomen and pelvis were obtained with intravenous contrast according to the standard protocol after the uneventful administration of 69 mL Opti-Ray 350 intravenous contrast. COMPARISON: CT 01/24/2024 FINDINGS: The partially imaged lung bases demonstrate new dante-bronchovascular consolidation within the lung bases with heterogeneous attenuation. No pleural effusion. The heart size is normal. No pericardial effusion. There is high density material within the partially imaged distal esophagus and stomach, which may represent food or medication. Again seen is a nodular liver with fibrotic changes and capsular retraction in keeping with the patient's history of cirrhosis. No discrete hepatic lesion. The main portal vein, splenic vein, and superior mesenteric vein are patent. There is recanalization of the umbilical vein. The gallbladder is surgically absent. There is no intrahepatic or extrahepatic biliary ductal dilatation. The pancreas is normal. There is unchanged splenomegaly. The adrenal glands are normal. The kidneys enhance symmetrically without hydronephrosis. Again seen is a thick walled and irregular fluid collection along the upper pole of the left kidney, which slightly decreased in size compared to 01/24/2024 when remeasured in a similar fashion and now measures 5 cm x 2.6 cm in greatest transaxial dimension (image 85). There is an additional smaller, ill-defined thick walled fluid collection at the left interpolar kidney, which measures 2.3 cm, previously 2.7 cm in greatest transaxial dimension (image 105). There is left perinephric fat stranding with a small amount of fluid tracking along the left lateroconal and Gerota's fascia, which is similar to prior. The urinary bladder is mildly distended. The uterus is anteverted. There are physiologic follicular ovarian cysts with prominent round ligaments. No suspicious adnexal masses. There is a percutaneous gastrostomy tube in place with tip and balloon in the gastric body. There is unchanged soft tissue thickening surrounding the gastrostomy tract without drainable fluid collection. The caliber of the small bowel and colon is within normal limits. There is no bowel obstruction or pneumoperitoneum. The caliber of the abdominal aorta is within normal limits. There is moderate calcification of the celiac axis, superior mesenteric artery, and inferior mesenteric artery. There are prominent by number but subcentimeter retroperitoneal lymph nodes, worse on the left near the kidney which are similar to prior. For example, there is a unchanged 8 mm left retroperitoneal lymph node (image 124). There are prominent but subcentimeter mesenteric lymph nodes and gastrohepatic lymph nodes measuring up to 8 mm (image 15). There is mild mesenteric edema and small volume ascites. There is unchanged soft tissue thickening along the umbilicus without a drainable fluid collection. There is mild presacral edema. Again seen is a sacral decubitus ulcer with soft tissue thickening adjacent to the coccyx with possible erosion and sclerosis along the 1st segment of the coccyx (series 5, image 59). There is no drainable fluid collection. IMPRESSION: 1. Improving left upper pole and left interpolar renal fluid collections, consistent with improving suppurative pyelonephritis/renal abscesses. No new renal or perinephric fluid collection. 2. Sacral decubitus ulcer with soft tissue thickening and possible erosion and sclerosis of the coccyx, which may represent developing osteomyelitis. 3. New heterogeneous consolidation within the dependent portions of the partially imaged lungs, likely representing aspiration pneumonia superimposed on atelectasis. 4. Findings of cirrhosis, portal hypertension, and volume overload as evidenced by splenomegaly, a recanalized umbilical vein, mesenteric edema, small volume ascites, and body wall edema. 5. Soft tissue thickening along the gastrostomy tube tract, which may be infectious or inflammatory. Recommend correlation with exam and gastrostomy tube functioning. No drainable fluid collection. Dictated by: Rashawn Phan MD The radiology attending physician has personally reviewed this study, and had reviewed and/or edited this written report and agrees with it. Electronically signed by: Zeke Chris M.D. us Carin Granados MD IMG CT PROCEDURES Final R esult * POCT glucose (02/03/2024 9:24 AM ROOMING HOUSE KEEPER) Glucose, POC 131 70 - 199 mg/dL Blood 02/03/2024 9:24 AM ROOMING HOUSE KEEPER 02/03/2024 9:24 AM ROOMING HOUSE KEEPER us Carin Granados MD LAB POCT ORDERABLES - DEV ICE Final Result Performing Organization Address [facility] Co de Phone Number [facility] Department [place] [address] * eGFR (02/02/2024 10:40 PM ROOMING HOUSE KEEPER) Pathologist [facility] eGFR 75 >=60 mL/min/1. 73 m2 Comment: Interpretive Data Reference Interval Normal >/= 90 mL/min/1.73m2 Mildly decreased* 60 - 89 mL/min/1.73m2 Mildly to moderately decreased 45 - 59 mL/min/1.73m2 Moderately to severely decreased 30 - 44 mL/min/1.73m2 Severely decreased 15 - 29 mL/min/1.73m2 Kidney Failure < 15 mL/min/1.73m2 *Relative to young adult level Estimated glomerular filtration rate is determined by the 2020 CKD-EPI equation recommended by the National Kidney Foundation (A Unifying Approach to GFR Estimation: Recommendations of the NKF-ASK Task Force on Reassessing the Inclusion of Race in Diagnosing Kidney Disease, JASN 2020). The CKD-EPI equation should not be used for patients with unstable renal function and has not been validated in children and those over 70. Current interpretive data was last reviewed 2021. Blood 02/02/2024 10:4 0 PM ROOMING HOUSE KEEPER 02/03/2024 12:36 AM ROOMING HOUSE KEEPER us Meme Santana MD LAB BLOOD ORDERABLES Fin al Result Performing Organization Address [facility]/ZIP Co de Phone Number [facility] Department [place] [address] * Differential, auto (02/02/2024 10:40 PM ROOMING HOUSE KEEPER) Neutrophil abs 5.7 1.5 - 6.5 K/cumm Imm gran abs 0.0 0.0 - 0.1 K/cumm [facility] Lymphocyte abs 1.1 0.8 - 3.3 K/cumm [facility] Monocyte abs 0.8 0.2 - 0.8 K/cumm [facility] Eosinophil abs 0.3 0.0 - 0.5 K/cumm [facility] Basophil abs 0.0 0.0 - 0.1 K/cumm [facility] Neutrophil pct 71.1 % [facility] Comment: Interpretive Data Percent cell count reference ranges are not reported, since discordance with absolute values may lead to misinterpretation of CBC data. Current Interpretive Data was last revised on 2017. Imm gran pct 0.4 % [facility] Comment: Interpretive Data Percent cell count reference ranges are not reported, since discordance with absolute values may lead to misinterpretation of CBC data. Current Interpretive Data was last revised on 2017. Lymphocyte pct 14.1 % [facility] Comment: Interpretive Data Percent cell count reference ranges are not reported, since discordance with absolute values may lead to misinterpretation of CBC data. Current Interpretive Data was last revised on 2017. Monocyte pct 10.4 % [facility] Comment: Interpretive Data Percent cell count reference ranges are not reported, since discordance with absolute values may lead to misinterpretation of CBC data. Current Interpretive Data was last revised on 2017. Eosinophil pct 3.9 % [facility] Comment: Interpretive Data Percent cell count reference ranges are not reported, since discordance with absolute values may lead to misinterpretation of CBC data. Current Interpretive Data was last revised on 2017. Basophil pct 0.1 % [facility] Comment: Interpretive Data Percent cell count reference ranges are not reported, since discordance with absolute values may lead to misinterpretation of CBC data. Current Interpretive Data was last revised on 2017. Blood 02/02/2024 10:4 0 PM ROOMING HOUSE KEEPER 02/03/2024 12:04 AM ROOMING HOUSE KEEPER Meme Santana MD LAB BLOOD ORDERABLES Fin al Result Performing Organization Address [facility] [[email or web address]] de Phone Number [facility] Department [place] [address] * (ABNORMAL) CBC with auto differential (02/02/2024 10:40 PM ROOMING HOUSE KEEPER) Pathologist [facility] WBC 8.0 3.8 - 9.9 K/cumm Hgb 7.2(L) 11.9 - 15.5 g/dL [facility] Hct 22.5(L) 35.6 - 45.5 % [facility] Plt 190 150 - 400 K/cumm [facility] MPV 10.3 9.1 - 12.3 fL [facility] RBC 2.72(L) 3.90 - 5.20 M/cumm [facility] MCV 82.7 81.3 - 96.4 fL [facility] MCH 26.5(L) 27.1 - 33.3 pg [facility] MCHC 32.0(L) 32.3 - 35.7 g/dL [facility] RDW CV 14.0 11.1 - 14.9 % [facility] RDW SD 42.1 35.7 - 48.1 fL [facility] NRBC abs 0.00 0.00 - 0.01 K/cumm [facility] Blood 02/02/2024 10:4 0 PM ROOMING HOUSE KEEPER 02/03/2024 12:04 AM ROOMING HOUSE KEEPER us Carin Granados MD LAB BLOOD ORDERABLES Tete palomino Result Performing Organization Address [facility] Co de Phone Number [facility] Department [place] [address] * Phosphorus (02/02/2024 10:40 PM ROOMING HOUSE KEEPER) Pathologist [facility] Phosphorus, pl 2.8 2.3 - 4.5 mg/dL Blood 02/02/2024 10:4 0 PM ROOMING HOUSE KEEPER 02/03/2024 12:36 AM ROOMING HOUSE KEEPER us Carin Granados MD LAB BLOOD ORDERABLES Tete l Result [facility] Department [place] [address] * (ABNORMAL) Magnesium (02/02/2024 10:40 PM ROOMING HOUSE KEEPER) [facility] Magnesium 2.6(H) 1.4 - 2.5 mg/dL Blood 02/02/2024 10:4 0 PM ROOMING HOUSE KEEPER 02/03/2024 12:36 AM ROOMING HOUSE KEEPER Carin Granados MD LAB BLOOD ORDERABLES Tete l Result Performing Organization Address [facility] Co de Phone Number [facility] [place] [address] * (ABNORMAL) Hepatic function panel (02/02/2024 10:40 PM ROOMING HOUSE KEEPER) [facility] Bilirubin, total 0.7 0.1 - 1.2 mg/dL Bilirubin, direct 0.2 0.1 - 0.3 mg/dL [facility] Protein, pl 6.4(L) 6.5 - 8.5 g/dL [facility] Albumin 2.6(L) 3.5 - 5.0 g/dL [facility] Alk phos 241(H) 40 - 130 Units/L [facility] ALT 13 7 - 45 Units/L [facility] AST 35 10 - 45 Units/L [facility] Blood 02/02/2024 10:4 0 PM ROOMING HOUSE KEEPER 02/03/2024 12:36 AM ROOMING HOUSE KEEPER Carin Granados MD LAB BLOOD ORDERABLES Tete l Result Performing Organization Address [facility] Co de Phone Number [facility] Department [place] [address] * (ABNORMAL) Basic metabolic panel (02/02/2024 10:40 PM ROOMING HOUSE KEEPER) Sodium 138 135 - 145 mmol/L Potassium, pl 5.0(H) 3.3 - 4.9 mmol/L [facility] Chloride 102 97 - 110 mmol/L [facility] CO2 30 22 - 32 mmol/L [facility] Anion gap 6 2 - 15 mmol/L [facility] BUN 26(H) 6 - 25 mg/dL [facility] Creatinine 0.99 0.60 - 1.10 mg/dL [facility] Glucose 135 70 - 199 mg/dL [facility] Comment: Interpretive Data Fasting glucose >/= 126 mg/dl is diagnostic for diabetes. Fasting is defined as no caloric intake for at least 8 hours. Fasting glucose between 100 mg/dl to 125 mg/dl is diagnostic of prediabetes. In a patient with classic symptoms of hyperglycemia or hyperglycemic crisis, a random glucose >/= 200 mg/dl is diagnostic for diabetes. In the absence of unequivocal hyperglycemia, results should be confirmed by repeat testing. The classification and Diagnosis of Diabetes Diabetes Care 2021; 46: S19-S40. Current interpretive data was last revised 2022. Calcium 8.4(L) 8.5 - 10.3 mg/dL [facility] Blood 02/02/2024 10:4 0 PM ROOMING HOUSE KEEPER 02/03/2024 12:36 AM ROOMING HOUSE KEEPER us Carin Granados MD LAB BLOOD ORDERABLES Tete l Result Performing Organization Address [facility]/ZIP Co de Phone Number [facility] [place] [address] * POCT glucose (02/02/2024 8:25 PM ROOMING HOUSE KEEPER) Glucose, POC 173 70 - 199 mg/dL Blood 02/02/2024 8:25 PM ROOMING HOUSE KEEPER 02/02/2024 8:25 PM ROOMING HOUSE KEEPER Carin Granados MD LAB POCT ORDERABLES - DEV ICE Final Result Performing Organization Address [facility]/ZIP Co de Phone Number [facility] Department [place] [address] * (ABNORMAL) Hemoglobin and hematocrit (02/02/2024 5:56 PM ROOMING HOUSE KEEPER) Hgb 7.6(L) 11.9 - 15.5 g/dL Hct 23.2(L) 35.6 - 45.5 % [facility] Blood 02/02/2024 5:56 PM ROOMING HOUSE KEEPER 02/02/2024 6:12 PM ROOMING HOUSE KEEPER us Carin Granados MD LAB BLOOD ORDERABLES Tete l Result [facility] [place] [address] * POCT glucose (02/02/2024 4:53 PM ROOMING HOUSE KEEPER) Glucose, POC 172 70 - 199 mg/dL Blood 02/02/2024 4:53 PM ROOMING HOUSE KEEPER 02/02/2024 4:53 PM ROOMING HOUSE KEEPER Carin Granados MD LAB POCT ORDERABLES - DEV ICE Final Result [facility] [place] [address] * Transfuse RBC (02/02/2024 2:55 PM ROOMING HOUSE KEEPER) Blood Carin Granados MD BLOOD TRANSFUSION ORDERAB [place] [address] * POCT glucose (02/02/2024 12:56 PM ROOMING HOUSE KEEPER) Glucose, POC 162 70 - 199 mg/dL Blood 02/02/2024 12:5 6 PM ROOMING HOUSE KEEPER 02/02/2024 12:56 PM ROOMING HOUSE KEEPER Carin Granados MD LAB POCT ORDERABLES - DEV ICE Final Result Performing Organization Address [facility] Co de Phone Number [facility] [place] [address] * POCT glucose (02/02/2024 9:48 AM ROOMING HOUSE KEEPER) Glucose, POC 126 70 - 199 mg/dL Blood 02/02/2024 9:48 AM ROOMING HOUSE KEEPER 02/02/2024 9:48 AM ROOMING HOUSE KEEPER Carin Granados MD LAB POCT ORDERABLES - DEV ICE Final Result Performing Organization Address [facility] [[email or web address]] [place] [address] * Hepatitis panel, acute Blood (01/27/2024 9:00 PM ROOMING HOUSE KEEPER) Pathologist [facility] Hep A IgM Nonreactive Nonreactive Hep B core IgM Nonreactive Nonreactive [facility] Hep C Ab Nonreactive Nonreactive [facility] Comment:Antibodies to HCV no t detected. Does NOT exclude the possibility of recent exposure to HCV. Current interpretive data was last revised on 21 HepBsAg Nonreactive Nonreactive [facility] Blood 01/27/2024 9:00 PM ROOMING HOUSE KEEPER 01/27/2024 9:44 PM ROOMING HOUSE KEEPER Sheldon Duran MD LAB MICROBIOLOGY - GENERA L ORDERABLES Final Result Performing Organization Address [facility] Co de Phone Number [facility] [place] [address] * (ABNORMAL) Lipid panel (01/26/2024 11:33 PM ROOMING HOUSE KEEPER) Pathologist [facility] Cholesterol 137 30 - 199 mg/dL Comment: Interpretive Data Ages < or = 19 years Acceptable: <170 mg/dL Borderline high: 170-199 mg/dL High: >or= 200 mg/dL Ages > or = 20 years Desirable: <200 mg/dL Borderline high: 200-239 mg/dL High: >or= 240 mg/dL Literature References: 1. Expert Panel on Integrated Guidelines for Cardiovascular Health and Risk Reduction in Children and Adolescents. Pediatrics 2011;128:S213 2. NCEP Expert Panel. Circulation 2004;110:227 Current Interpretive Data was last revised on 2017. Triglycerides 171(H) <=149 mg/dL [facility] Comment: Interpretive Data Ages < or = 9 years Acceptable: <75 mg/dL Borderline high: 75-99 mg/dL High: >or= 100 mg/dL Ages 10 to 20 years Acceptable: <90 mg/dL Borderline high: 90-129 mg/dL High: >or= 130 mg/dL Ages > or = 20 years Desirable: <150 mg/dL Borderline high: 150-199 mg/dL High: 200-499 mg/dL Very high: >or= 499 mg/dL Literature References: 1. Expert Panel on Integrated Guidelines for Cardiovascular Health and Risk Reduction in Children and Adolescents. Pediatrics 2011;128:S213 2. NCEP Expert Panel. Circulation 2004;110:227 Current Interpretive Data was last revised on 2017. HDL 28(L) >=40 mg/dL [facility] Comment: Interpretive Data Ages < or = 19 years Acceptable: >45 mg/dL Borderline low: 40-45 mg/dL Low: <40 mg/dL Ages > or = 20 years Desirable: >or= 60 mg/dL Low: <40 mg/dL Literature References: 1. Expert Panel on Integrated Guidelines for Cardiovascular Health and Risk Reduction in Children and Adolescents. Pediatrics 2011;128:S213 2. NCEP Expert Panel. Circulation 2004;110:227 Current Interpretive Data was last revised on 2017. LDL, calculated 79 <=129 mg/dL [facility] Comment: Interpretive Data Ages < or = 19 years Acceptable: <110 mg/dL Borderline high: 110-129 mg/dL High: >or= 130 mg/dL Ages > or = 20 years Optimal: <100 mg/dL Near optimal: 100-129 mg/dL Borderline high: 130-159 mg/dL High: >160 mg/dL Calculated using the Levin LDL-C estimating equation. This equation was implemented on 2023. Prior to this date LDL-C was estimated using the Friedewald equation. Literature References: 1. Expert Panel on Integrated Guidelines for Cardiovascular Health and Risk Reduction in Children and Adolescents. Pediatrics 2011;128:S213 2. NCEP Expert Panel. Circulation 2004;110:227 3. Ollie Grace et al. MEGHANA Cardiol. 2019July 19;5(5):540-548. doi: [email or web address] Current Interpretive Data was last revised on 2023. Non-HDL Cholesterol 109 mg/dL [facility] Comment: Interpretive Data Ages < or = 19 years Acceptable: <120 mg/dL Borderline high: 120-144 mg/dL High: >145 mg/dL Ages > or = 20 years When triglycerides are >200 mg/dL, Non-HDL cholesterol is a secondary target of therapy with treatment goals that are 30 mg/dL greater than the LDL cholesterol target. Literature References: 1. Expert Panel on Integrated Guidelines for Cardiovascular Health and Risk Reduction in Children and Adolescents. Pediatrics 2011;128:S213 2. NCEP Expert Panel. Circulation 2004;110:227 Current Interpretive Data was last revised on 2017. Chol/HDL ratio 5 [facility] Blood 01/26/2024 11:3 3 PM ROOMING HOUSE KEEPER 01/27/2024 12:31 AM ROOMING HOUSE KEEPER Sheldon Duran MD LAB BLOOD ORDERABLES Tete palomino Result [facility] Department [place] [address] * (ABNORMAL) Hemoglobin A1c (12/01/2023 6:48 PM CDT) Hgb A1C 10.6(H) 4.0 - 5.6 % Estimated Average Glucose 258 mg/dL [facility] Comment: The ADA recommends reporting an estimated Average Glucose (eAG) with all Hemoglobin A1c results using the equation derived from a study of 507 normal and diabetic adults. Minority populations were underrepresented and children were not included. (Diabetes Care 31:1429-3810, 2008). The eAG is not equivalent to a fasting glucose. 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 Coli. Not eligible for review. Multiple wounds that require cultures for discontinuation. Kyler Child 02/02/2024 01/09/2024 01/09/2024 Insurance Advance Directives For more information, please contact: [phone] Documents on File Type Date Recorded Patient Photograph Inspector Expl anation ADVANCE DIRECTIVE 02/17/2024 11:22 AM POW ER OF RESTORATION OFFICER-MEDICAL ADVANCE DIRECTIVE 02/03/2024 2:17 PM MARLEN R OF RESTORATION OFFICER-MEDICAL * Full Code (Latest Code Status on File) Date Activated Date Inactivated Comments 02/04/2024 7:47 AM 02/13/2024 5:36 PM * Full Code Date Activated Date Inactivated Comments 01/26/2024 10:04 PM 02/04/2024 7:47 AM * Full Code Date Activated Date Inactivated Comments 01/09/2024 11:36 AM 01/26/2024 9:52 PM * Full Code Date Activated Date Inactivated Comments 12/31/2023 8:12 PM 01/03/2024 2:42 PM * Full Code Date Activated Date Inactivated Comments 12/01/2023 1:48 PM 12/10/2023 12:20 AM Healthcare Agents on File Name Relationship Healthcare Agent Relationship Communication Jihan Sanchez Sister Health Care Agent Yadi Sanchez Sister [facility] Health Care Agent Care Teams Meter Setter Relationship Specialty Start Date End Date Barbara Oliva MD [address] [place] [id number] PCP - General Gastroenterology 12/02/23 Miscellaneous, Not In File 01/03/24
--- OUTSIDE RECORDS SUMMARY | 2024-05-04 10:23 | XMS_ITS | Clinical Summary ---
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 8:16 AM HAND SPRING REPAIRER HELPER Pressure injury of sacral region, stage 4 (HCC) POTASSIUM, WHOLE BLOOD Timed 8:08 AM HAND SPRING REPAIRER HELPER POTASSIUM LEVEL Timed 02/05/2024 7:45 AM HAND SPRING REPAIRER HELPER POCT GLUCOSE DEVICE Routine 02/05/2024 6 :00 AM HAND SPRING REPAIRER HELPER POCT GLUCOSE DEVICE Routine 02/05/2024 5:04 AM HAND SPRING REPAIRER HELPER POCT GLUCOSE DEVICE Routine 02/05/2024 4 :11 AM HAND SPRING REPAIRER HELPER ECG 12-LEAD STAT 02/05/2024 3:22 AM HAND SPRING REPAIRER HELPER EGFR Routine 02/04/2024 9:38 PM HAND SPRING REPAIRER HELPER DIFFERENTIAL AUTO Routine 02/04/2024 9:3 8 PM HAND SPRING REPAIRER HELPER HEPATIC FUNCTION PANEL Routine 9:38 PM HAND SPRING REPAIRER HELPER PHOSPHORUS Routine 02/04/2024 9:38 PM HAND SPRING REPAIRER HELPER MAGNESIUM Routine 02/04/2024 9:38 PM HAND SPRING REPAIRER HELPER BASIC METABOLIC PANEL Routine 02/04/2024 9:38 PM HAND SPRING REPAIRER HELPER CBC WITH AUTO DIFFERENTIAL Routine 02/04/2024 9:38 PM HAND SPRING REPAIRER HELPER POCT GLUCOSE DEVICE Routine 02/04/2024 9 :04 PM HAND SPRING REPAIRER HELPER POCT GLUCOSE DEVICE Routine 02/04/2024 5:12 PM HAND SPRING REPAIRER HELPER POCT GLUCOSE DEVICE Routine 02/04/2024 11:56 AM HAND SPRING REPAIRER HELPER HEMOGLOBIN AND HEMATOCRIT Timed 02/04/2024 11:16 AM HAND SPRING REPAIRER HELPER MRI SACRUM COCCYX WO CONTRAST ED Urgent/IP Urgent 02/04/2024 10:53 AM HAND SPRING REPAIRER HELPER POCT GLUCOSE DEVICE Routine 02/04/2024 7 :44 AM HAND SPRING REPAIRER HELPER TRANSFUSE RED BLOOD CELLS Timed 02/04/2024 5:50 AM HAND SPRING REPAIRER HELPER TYPE AND SCREEN Timed 02/04/2024 1:27 AM HAND SPRING REPAIRER HELPER PREPARE RBC Timed 02/04/2024 12:43 AM HAND SPRING REPAIRER HELPER EGFR Routine 02/03/2024 9:45 PM HAND SPRING REPAIRER HELPER DIFFERENTIAL AUTO Routine 02/03/2024 9:4 5 PM HAND SPRING REPAIRER HELPER HEPATIC FUNCTION PANEL Routine 9:45 PM HAND SPRING REPAIRER HELPER PHOSPHORUS Routine 02/03/2024 9:45 PM HAND SPRING REPAIRER HELPER MAGNESIUM Routine 02/03/2024 9:45 PM HAND SPRING REPAIRER HELPER BASIC METABOLIC PANEL Routine 02/03/2024 9:45 PM HAND SPRING REPAIRER HELPER CBC WITH AUTO DIFFERENTIAL Routine 02/03/2024 9:45 PM HAND SPRING REPAIRER HELPER POCT GLUCOSE DEVICE Routine 02/03/2024 9 :39 PM HAND SPRING REPAIRER HELPER POCT GLUCOSE DEVICE Routine 02/03/2024 5 :47 PM HAND SPRING REPAIRER HELPER POCT GLUCOSE DEVICE Routine 02/03/2024 2 :37 PM HAND SPRING REPAIRER HELPER CT ABDOMEN PELVIS W CONTRAST IP Routine 02/03/2024 10:03 AM HAND SPRING REPAIRER HELPER POCT GLUCOSE DEVICE Routine 02/03/2024 9 :24 AM HAND SPRING REPAIRER HELPER EGFR Routine 02/02/2024 10:40 PM HAND SPRING REPAIRER HELPER DIFFERENTIAL AUTO Routine 02/02/2024 10:40 PM HAND SPRING REPAIRER HELPER HEPATIC FUNCTION PANEL Routine 10:40 PM HAND SPRING REPAIRER HELPER PHOSPHORUS Routine 02/02/2024 10:40 PM HAND SPRING REPAIRER HELPER MAGNESIUM Routine 02/02/2024 10:40 PM HAND SPRING REPAIRER HELPER BASIC METABOLIC PANEL Routine 02/02/2024 10:40 PM HAND SPRING REPAIRER HELPER CBC WITH AUTO DIFFERENTIAL Routine 02/02/2024 10:40 PM HAND SPRING REPAIRER HELPER POCT GLUCOSE DEVICE Routine 02/02/2024 8 :25 PM HAND SPRING REPAIRER HELPER HEMOGLOBIN AND HEMATOCRIT Timed 02/02/2024 5:56 PM HAND SPRING REPAIRER HELPER POCT GLUCOSE DEVICE Routine 02/02/2024 4 :53 PM HAND SPRING REPAIRER HELPER POCT GLUCOSE DEVICE Routine 02/02/2024 12:56 PM HAND SPRING REPAIRER HELPER TRANSFUSE RED BLOOD CELLS Timed 02/02/2024 11:07 AM HAND SPRING REPAIRER HELPER POCT GLUCOSE DEVICE Routine 02/02/2024 9 :48 AM HAND SPRING REPAIRER HELPER HEPATITIS PANEL, ACUTE Routine 9:00 PM HAND SPRING REPAIRER HELPER LIPID PANEL Routine 01/26/2024 11:33 PM HAND SPRING REPAIRER HELPER HEMOGLOBIN A1C Routine 12/01/2023 6:48 PM CDT from Last 3 Months or Most Recently Relevant to Health Maintenance Results * POCT glucose (02/13/2024 11:47 AM HAND SPRING REPAIRER HELPER) Glucose, POC 122 70 - 199 mg/dL Blood 02/13/2024 11:4 7 AM HAND SPRING REPAIRER HELPER 02/13/2024 11:47 AM HAND SPRING REPAIRER HELPER Kassidy Pinzon MD LAB POCT ORDERABLES - DEVIC E Final Result Performing Organization Address City/[facility]/ZIP Co de Phone Number [facility] [place] [address] * POCT glucose (02/13/2024 7:56 AM HAND SPRING REPAIRER HELPER) Glucose, POC 95 70 - 199 mg/dL Blood 02/13/2024 7:56 AM HAND SPRING REPAIRER HELPER 02/13/2024 7:56 AM HAND SPRING REPAIRER HELPER Kassidy Pinzon MD LAB POCT ORDERABLES - DEVIC E Final Result Performing Organization Address City/[facility] Co de Phone Number [facility] [place] [address] * eGFR (02/12/2024 11:57 PM HAND SPRING REPAIRER HELPER) eGFR 79 >=60 mL/min/1. 73 m2 Comment: [...] reviewed 2021. Blood 02/12/2024 11:5 7 PM HAND SPRING REPAIRER HELPER 02/13/2024 12:29 AM HAND SPRING REPAIRER HELPER us Carin Granados MD LAB BLOOD ORDERABLES Tete palomino Result [facility] [place] [address] * Differential, auto (02/12/2024 11:57 PM HAND SPRING REPAIRER HELPER) Neutrophil abs 4.2 1.5 - 6.5 K/cumm Imm gran abs 0.0 0.0 - 0.1 K/cumm [facility] Lymphocyte abs 1.2 0.8 - 3.3 K/cumm [facility] Monocyte abs 0.6 0.2 - 0.8 K/cumm [facility] Eosinophil abs 0.2 0.0 - 0.5 K/cumm [facility] Basophil abs 0.0 0.0 - 0.1 K/cumm [facility] Neutrophil pct 67.3 % [facility] Comment: Interpretive Data Percent cell count reference ranges are not reported, since discordance with absolute values may lead to misinterpretation of CBC data. Current Interpretive Data was last revised on 2017. Imm gran pct 0.3 % [facility] Comment: Interpretive Data Percent cell count reference ranges are not reported, since discordance with absolute values may lead to misinterpretation of CBC data. Current Interpretive Data was last revised on 2017. Lymphocyte pct 19.2 % [facility] Comment: Interpretive Data Percent cell count reference ranges are not reported, since discordance with absolute values may lead to misinterpretation of CBC data. Current Interpretive Data was last revised on 2017. Monocyte pct 9.4 % [facility] Comment: Interpretive Data Percent cell count reference ranges are not reported, since discordance with absolute values may lead to misinterpretation of CBC data. Current Interpretive Data was last revised on 2017. Eosinophil pct 3.5 % [facility] Comment: Interpretive Data Percent cell count reference ranges are not reported, since discordance with absolute values may lead to misinterpretation of CBC data. Current Interpretive Data was last revised on 2017. Basophil pct 0.3 % [facility] Comment: Interpretive Data Percent cell count reference ranges are not reported, since discordance with absolute values may lead to misinterpretation of CBC data. Current Interpretive Data was last revised on 2017. Blood 02/12/2024 11:5 7 PM HAND SPRING REPAIRER HELPER 02/13/2024 12:29 AM HAND SPRING REPAIRER HELPER us Carin Granados MD LAB BLOOD ORDERABLES Tete palomino Result [facility] [place] [address] * (ABNORMAL) CBC with auto differential (02/12/2024 11:57 PM HAND SPRING REPAIRER HELPER) WBC 6.3 3.8 - 9.9 K/cumm Hgb 7.2(L) 11.9 - 15.5 g/dL [facility] Hct 23.1(L) 35.6 - 45.5 % [facility] Plt 208 150 - 400 K/cumm [facility] MPV 9.7 9.1 - 12.3 fL [facility] RBC 2.77(L) 3.90 - 5.20 M/cumm [facility] MCV 83.4 81.3 - 96.4 fL [facility] MCH 26.0(L) 27.1 - 33.3 pg [facility] MCHC 31.2(L) 32.3 - 35.7 g/dL [facility] RDW CV 14.4 11.1 - 14.9 % [facility] RDW SD 43.3 35.7 - 48.1 fL [facility] NRBC abs 0.00 0.00 - 0.01 K/cumm [facility] Blood 02/12/2024 11:5 7 PM HAND SPRING REPAIRER HELPER 02/13/2024 12:29 AM HAND SPRING REPAIRER HELPER Carin Granados MD LAB BLOOD ORDERABLES Tete l Result Performing Organization Address City/[facility]/ZIP Co de Phone Number [facility] [place] [address] * Phosphorus (02/12/2024 11:57 PM HAND SPRING REPAIRER HELPER) Phosphorus, pl 2.8 2.3 - 4.5 mg/dL Blood 02/12/2024 11:5 7 PM HAND SPRING REPAIRER HELPER 02/13/2024 12:29 AM HAND SPRING REPAIRER HELPER Carin Granados MD LAB BLOOD ORDERABLES Tete l Result Performing Organization Address [facility] Co de Phone Number [facility] [place] [address] * Magnesium (02/12/2024 11:57 PM HAND SPRING REPAIRER HELPER) Magnesium 2.2 1.4 - 2.5 mg/dL Blood 02/12/2024 11:5 7 PM HAND SPRING REPAIRER HELPER 02/13/2024 12:29 AM HAND SPRING REPAIRER HELPER Carin Granados MD LAB BLOOD ORDERABLES Tete l Result Performing Organization Address [facility]/ZIP Co de Phone Number [facility] [place] [address] * (ABNORMAL) Hepatic function panel (02/12/2024 11:57 PM HAND SPRING REPAIRER HELPER) Bilirubin, total 0.5 0.1 - 1.2 mg/dL Bilirubin, direct 0.2 0.1 - 0.3 mg/dL [facility] Protein, pl 7.2 6.5 - 8.5 g/dL [facility] Albumin 3.2(L) 3.5 - 5.0 g/dL [facility] Alk phos 330(H) 40 - 130 Units/L [facility] ALT 29 7 - 45 Units/L [facility] AST 68(H) 10 - 45 Units/L [facility] Blood 02/12/2024 11:5 7 PM HAND SPRING REPAIRER HELPER 02/13/2024 12:29 AM HAND SPRING REPAIRER HELPER Carin Granados MD LAB BLOOD ORDERABLES Tete l Result [facility] Department [place] [address] * Basic metabolic panel (02/12/2024 11:57 PM HAND SPRING REPAIRER HELPER) Sodium 140 135 - 145 mmol/L Potassium, pl 3.9 3.3 - 4.9 mmol/L [facility] Chloride 100 97 - 110 mmol/L [facility] CO2 30 22 - 32 mmol/L [facility] Anion gap 10 2 - 15 mmol/L [facility] BUN 24 6 - 25 mg/dL [facility] Creatinine 0.95 0.60 - 1.10 mg/dL [facility] Glucose 165 70 - 199 mg/dL [facility] Comment: Interpretive Data Fasting glucose >/= [...] 2022. Calcium 8.9 8.5 - 10.3 mg/dL [facility] Blood 02/12/2024 11:5 7 PM HAND SPRING REPAIRER HELPER 02/13/2024 12:29 AM HAND SPRING REPAIRER HELPER us Carin Granados MD LAB BLOOD ORDERABLES Tete l Result Performing Organization Address City/[facility] Co de Phone Number [facility] [place] [address] * POCT glucose (02/12/2024 8:27 PM HAND SPRING REPAIRER HELPER) Glucose, POC 167 70 - 199 mg/dL Blood 02/12/2024 8:27 PM HAND SPRING REPAIRER HELPER 02/12/2024 8:27 PM HAND SPRING REPAIRER HELPER us Kassidy Pinzon MD LAB POCT ORDERABLES - DEVIC E Final Result Performing Organization Address [facility] de Phone Number [facility] [place] [address] * POCT glucose (02/12/2024 5:13 PM HAND SPRING REPAIRER HELPER) Glucose, POC 167 70 - 199 mg/dL Blood 02/12/2024 5:13 PM HAND SPRING REPAIRER HELPER 02/12/2024 5:13 PM HAND SPRING REPAIRER HELPER us Kassidy Pinzon MD LAB POCT ORDERABLES - DEVIC E Final Result Performing Organization Address [facility] Co de Phone Number [facility] [place] [address] * POCT glucose (02/12/2024 12:27 PM HAND SPRING REPAIRER HELPER) Glucose, POC 139 70 - 199 mg/dL Blood 02/12/2024 12:2 7 PM HAND SPRING REPAIRER HELPER 02/12/2024 12:27 PM HAND SPRING REPAIRER HELPER Kassidy Pinzon MD LAB POCT ORDERABLES - DEVIC E Final Result Performing Organization Address [facility] Co de Phone Number [facility] [place] [address] * POCT glucose (02/12/2024 9:21 AM HAND SPRING REPAIRER HELPER) Glucose, POC 95 70 - 199 mg/dL Blood 02/12/2024 9:21 AM HAND SPRING REPAIRER HELPER 02/12/2024 9:21 AM HAND SPRING REPAIRER HELPER Kassidy Pinzon MD LAB POCT ORDERABLES - DEVIC E Final Result Performing Organization Address [facility] Co de Phone Number [facility] [place] [address] * POCT glucose (02/12/2024 8:02 AM HAND SPRING REPAIRER HELPER) Glucose, POC 91 70 - 199 mg/dL Blood 02/12/2024 8:02 AM HAND SPRING REPAIRER HELPER 02/12/2024 8:02 AM HAND SPRING REPAIRER HELPER Kassidy Pinzon MD LAB POCT ORDERABLES - DEVIC E Final Result Performing Organization Address [facility] [place] [address] * eGFR (02/11/2024 11:54 PM HAND SPRING REPAIRER HELPER) eGFR 65 >=60 mL/min/1. 73 m2 Comment: [...] reviewed 2021. Blood 02/11/2024 11:5 4 PM HAND SPRING REPAIRER HELPER 02/12/2024 12:43 AM HAND SPRING REPAIRER HELPER us Carin Granados MD LAB BLOOD ORDERABLES Tete palomino Result [facility] Department [place] [address] * Differential, auto (02/11/2024 11:54 PM HAND SPRING REPAIRER HELPER) Neutrophil abs 4.3 1.5 - 6.5 K/cumm Imm gran abs 0.0 0.0 - 0.1 K/cumm [facility] Lymphocyte abs 1.3 0.8 - 3.3 K/cumm [facility] Monocyte abs 0.7 0.2 - 0.8 K/cumm [facility] Eosinophil abs 0.2 0.0 - 0.5 K/cumm [facility] Basophil abs 0.0 0.0 - 0.1 K/cumm [facility] Neutrophil pct 66.6 % [facility] Comment: Interpretive Data Percent cell count reference ranges are not reported, since discordance with absolute values may lead to misinterpretation of CBC data. Current Interpretive Data was last revised on 2017. Imm gran pct 0.3 % [facility] Comment: Interpretive Data Percent cell count reference ranges are not reported, since discordance with absolute values may lead to misinterpretation of CBC data. Current Interpretive Data was last revised on 2017. Lymphocyte pct 19.4 % [facility] Comment: Interpretive Data Percent cell count reference ranges are not reported, since discordance with absolute values may lead to misinterpretation of CBC data. Current Interpretive Data was last revised on 2017. Monocyte pct 10.1 % [facility] Comment: Interpretive Data Percent cell count reference ranges are not reported, since discordance with absolute values may lead to misinterpretation of CBC data. Current Interpretive Data was last revised on 2017. Eosinophil pct 3.1 % [facility] Comment: Interpretive Data Percent cell count reference ranges are not reported, since discordance with absolute values may lead to misinterpretation of CBC data. Current Interpretive Data was last revised on 2017. Basophil pct 0.5 % [facility] Comment: Interpretive Data Percent cell count reference ranges are not reported, since discordance with absolute values may lead to misinterpretation of CBC data. Current Interpretive Data was last revised on 2017. Blood 02/11/2024 11:5 4 PM HAND SPRING REPAIRER HELPER 02/12/2024 12:42 AM HAND SPRING REPAIRER HELPER us Carin Granados MD LAB BLOOD ORDERABLES Tete palomino Result [facility] Department [place] [address] * (ABNORMAL) CBC with auto differential (02/11/2024 11:54 PM HAND SPRING REPAIRER HELPER) Pathologist [facility] WBC 6.4 3.8 - 9.9 K/cumm Hgb 7.4(L) 11.9 - 15.5 g/dL [facility] Hct 24.0(L) 35.6 - 45.5 % [facility] Plt 230 150 - 400 K/cumm [facility] MPV 9.8 9.1 - 12.3 fL [facility] RBC 2.88(L) 3.90 - 5.20 M/cumm [facility] MCV 83.3 81.3 - 96.4 fL [facility] MCH 25.7(L) 27.1 - 33.3 pg [facility] MCHC 30.8(L) 32.3 - 35.7 g/dL [facility] RDW CV 14.3 11.1 - 14.9 % [facility] RDW SD 42.9 35.7 - 48.1 fL [facility] NRBC abs 0.00 0.00 - 0.01 K/cumm [facility] Blood 02/11/2024 11:5 4 PM HAND SPRING REPAIRER HELPER 02/12/2024 12:42 AM HAND SPRING REPAIRER HELPER Carin Granados MD LAB BLOOD ORDERABLES Tete l Result Performing Organization Address [facility] Co de Phone Number [facility] [place] [address] * Phosphorus (02/11/2024 11:54 PM HAND SPRING REPAIRER HELPER) Phosphorus, pl 2.9 2.3 - 4.5 mg/dL Blood 02/11/2024 11:5 4 PM HAND SPRING REPAIRER HELPER 02/12/2024 12:43 AM HAND SPRING REPAIRER HELPER Result [facility] Carin Granados MD LAB BLOOD ORDERABLES Tete l Result Performing Organization Address [facility] Co de Phone Number [facility] [place] [place] [address] * Magnesium (02/11/2024 11:54 PM HAND SPRING REPAIRER HELPER) Magnesium 2.5 1.4 - 2.5 mg/dL Blood 02/11/2024 11:5 4 PM HAND SPRING REPAIRER HELPER 02/12/2024 12:43 AM HAND SPRING REPAIRER HELPER Result [facility] Carin Granados MD LAB BLOOD ORDERABLES Tete l Result Performing Organization Address [facility] de Phone Number [facility] [place] [address] * (ABNORMAL) Hepatic function panel (02/11/2024 11:54 PM HAND SPRING REPAIRER HELPER) Bilirubin, total 0.6 0.1 - 1.2 mg/dL Bilirubin, direct 0.2 0.1 - 0.3 mg/dL [facility] Protein, pl 7.3 6.5 - 8.5 g/dL [facility] Albumin 3.1(L) 3.5 - 5.0 g/dL [facility] Alk phos 317(H) 40 - 130 Units/L [facility] ALT 27 7 - 45 Units/L [facility] AST 69(H) 10 - 45 Units/L [facility] Blood 02/11/2024 11:5 4 PM HAND SPRING REPAIRER HELPER 02/12/2024 12:43 AM HAND SPRING REPAIRER HELPER Carin Granados MD LAB BLOOD ORDERABLES Tete l Result [facility] [place] [address] * (ABNORMAL) Basic metabolic panel (02/11/2024 11:54 PM HAND SPRING REPAIRER HELPER) Pathologist [facility] Sodium 138 135 - 145 mmol/L Potassium, pl 4.5 3.3 - 4.9 mmol/L [facility] Chloride 99 97 - 110 mmol/L [facility] CO2 31 22 - 32 mmol/L [facility] Anion gap 8 2 - 15 mmol/L [facility] BUN 26(H) 6 - 25 mg/dL [facility] Creatinine 1.11(H) 0.60 - 1.10 mg/dL [facility] Glucose 96 70 - 199 mg/dL [facility] Comment: Interpretive Data Fasting glucose >/= [...] 2022. Calcium 9.0 8.5 - 10.3 mg/dL [facility] Blood 02/11/2024 11:5 4 PM HAND SPRING REPAIRER HELPER 02/12/2024 12:43 AM HAND SPRING REPAIRER HELPER Carin Granados MD LAB BLOOD ORDERABLES Tete l Result Performing Organization Address [facility]/ZIP Co de Phone Number [facility] [place] [address] * POCT glucose (02/11/2024 8:20 PM HAND SPRING REPAIRER HELPER) Glucose, POC 114 70 - 199 mg/dL Blood 02/11/2024 8:20 PM HAND SPRING REPAIRER HELPER 02/11/2024 8:20 PM HAND SPRING REPAIRER HELPER us Kassidy Pinzon MD LAB POCT ORDERABLES - DEVIC E Final Result Performing Organization Address City/[facility] [place] [address] * POCT glucose (02/11/2024 4:42 PM HAND SPRING REPAIRER HELPER) [facility] Glucose, POC 106 70 - 199 mg/dL Blood 02/11/2024 4:42 PM HAND SPRING REPAIRER HELPER 02/11/2024 4:42 PM HAND SPRING REPAIRER HELPER us Kassidy Pinzon MD LAB POCT ORDERABLES - DEVIC E Final Result Performing Organization Address City/[facility]/ZIP Co de Phone Number [facility] [place] [address] * POCT glucose (02/11/2024 7:33 AM HAND SPRING REPAIRER HELPER) [facility] Glucose, POC 99 70 - 199 mg/dL Blood 02/11/2024 7:33 AM HAND SPRING REPAIRER HELPER 02/11/2024 7:33 AM HAND SPRING REPAIRER HELPER us Kassidy Pinzon MD LAB POCT ORDERABLES - DEVIC E Final Result Performing Organization Address City/[facility]/ZIP Co de Phone Number [facility] [place] [address] * B RYDER IGG (02/11/2024 12:30 AM HAND SPRING REPAIRER HELPER) [facility] IgG Negative Blood 02/11/2024 12:3 0 AM HAND SPRING REPAIRER HELPER 02/11/2024 12:30 AM HAND SPRING REPAIRER HELPER Kassidy Pinzon MD LAB BODY FLUIDS AND STOOLS ORDERABLES Final Result Performing Organization Address [facility] de Phone Number [facility] [place] [address] * (ABNORMAL) B RYDER C3 (02/11/2024 12:30 AM HAND SPRING REPAIRER HELPER) [facility] C3 Positive(A ) Blood 02/11/2024 12:3 0 AM HAND SPRING REPAIRER HELPER 02/11/2024 12:30 AM HAND SPRING REPAIRER HELPER Kassidy Pinzon MD LAB BLOOD ORDERABLES Final Result Performing Organization Address [facility] Phone Number [facility] [place] [address] * Antibody identification (02/10/2024 10:02 PM HAND SPRING REPAIRER HELPER) [facility] Antibody ID 1 Anti-K Comment:Previous anti-E not reacting Blood 02/10/2024 10:0 2 PM HAND SPRING REPAIRER HELPER 02/10/2024 10:02 PM HAND SPRING REPAIRER HELPER Kassidy Pinzon MD LAB BLOOD BANK TEST ORDERAB LES Final Result Performing Organization Address [facility] de Phone Number [facility] [place] [address] * eGFR (02/10/2024 8:51 PM HAND SPRING REPAIRER HELPER) [facility] eGFR 70 >=60 mL/min/1. 73 m2 Comment: [...] last reviewed 2021. Blood 02/10/2024 8:51 PM HAND SPRING REPAIRER HELPER 02/10/2024 9:12 PM HAND SPRING REPAIRER HELPER us Carin Granados MD LAB BLOOD ORDERABLES Tete palomino Result [facility] [place] [address] * Differential, auto (02/10/2024 8:51 PM HAND SPRING REPAIRER HELPER) Pathologist [facility] Neutrophil abs 4.2 1.5 - 6.5 K/cumm Imm gran abs 0.0 0.0 - 0.1 K/cumm [facility] Lymphocyte abs 1.4 0.8 - 3.3 K/cumm [facility] Monocyte abs 0.6 0.2 - 0.8 K/cumm [facility] Eosinophil abs 0.2 0.0 - 0.5 K/cumm [facility] Basophil abs 0.0 0.0 - 0.1 K/cumm [facility] Neutrophil pct 64.3 % [facility] Comment: Interpretive Data Percent cell count reference ranges are not reported, since discordance with absolute values may lead to misinterpretation of CBC data. Current Interpretive Data was last revised on 2017. Imm gran pct 0.3 % [facility] Comment: Interpretive Data Percent cell count reference ranges are not reported, since discordance with absolute values may lead to misinterpretation of CBC data. Current Interpretive Data was last revised on 2017. Lymphocyte pct 22.0 % [facility] Comment: Interpretive Data Percent cell count reference ranges are not reported, since discordance with absolute values may lead to misinterpretation of CBC data. Current Interpretive Data was last revised on 2017. Monocyte pct 9.4 % [facility] Comment: Interpretive Data Percent cell count reference ranges are not reported, since discordance with absolute values may lead to misinterpretation of CBC data. Current Interpretive Data was last revised on 2017. Eosinophil pct 3.7 % [facility] Comment: Interpretive Data Percent cell count reference ranges are not reported, since discordance with absolute values may lead to misinterpretation of CBC data. Current Interpretive Data was last revised on 2017. Basophil pct 0.3 % [facility] Comment: Interpretive Data Percent cell count reference ranges are not reported, since discordance with absolute values may lead to misinterpretation of CBC data. Current Interpretive Data was last revised on 2017. Blood 02/10/2024 8:51 PM HAND SPRING REPAIRER HELPER 02/10/2024 9:12 PM HAND SPRING REPAIRER HELPER us Carin Granados MD LAB BLOOD ORDERABLES Tete palomino Result [facility] Department [place] [address] * (ABNORMAL) CBC with auto differential (02/10/2024 8:51 PM HAND SPRING REPAIRER HELPER) WBC 6.5 3.8 - 9.9 K/cumm Hgb 7.5(L) 11.9 - 15.5 g/dL [facility] Hct 24.3(L) 35.6 - 45.5 % [facility] Plt 245 150 - 400 K/cumm [facility] MPV 9.5 9.1 - 12.3 fL [facility] RBC 2.92(L) 3.90 - 5.20 M/cumm [facility] MCV 83.2 81.3 - 96.4 fL [facility] MCH 25.7(L) 27.1 - 33.3 pg [facility] MCHC 30.9(L) 32.3 - 35.7 g/dL [facility] RDW CV 14.1 11.1 - 14.9 % [facility] RDW SD 42.3 35.7 - 48.1 fL [facility] NRBC abs 0.00 0.00 - 0.01 K/cumm [facility] Blood 02/10/2024 8:51 PM HAND SPRING REPAIRER HELPER 02/10/2024 9:12 PM HAND SPRING REPAIRER HELPER Carin Granados MD LAB BLOOD ORDERABLES Tete l Result Performing Organization Address [facility] Co de Phone Number [facility] [place] [address] * Transfusion reaction evaluation with specimen collection (02/10/2024 8:51 PM HAND SPRING REPAIRER HELPER) Recommended Product Transfuse K negative red blood cells. Recommened Pre Medication None [facility] Final Analysis of Transfusion Reaction Delayed Hemolytic Transfusion Reaction [facility] Blood 02/10/2024 8:51 PM HAND SPRING REPAIRER HELPER 02/10/2024 9:12 PM HAND SPRING REPAIRER HELPER Result [facility] Kassidy Pinzon MD LAB BLOOD BANK TEST ORDERAB LES Final Result Performing Organization Address [facility] Co de Phone Number [facility] [place] [address] * (ABNORMAL) Type and screen (02/10/2024 8:51 PM HAND SPRING REPAIRER HELPER) ABO Rh O Positive Ruiz, indirect Positive(A) [facility] Blood 02/10/2024 8:51 PM HAND SPRING REPAIRER HELPER 02/10/2024 9:12 PM HAND SPRING REPAIRER HELPER Narrative [facility] - 02/10/2024 10:02 PM HAND SPRING REPAIRER HELPER Has the patient had Daratumumab or Isatuximab in the past 6 months?->Unknown Kassidy Pinzon MD LAB BLOOD BANK TEST ORDERAB LES Final Result Performing Organization Address [facility] Co de Phone Number [facility] [address] [place], [place] [id number] * (ABNORMAL) Direct antiglobulin test (02/10/2024 8:51 PM HAND SPRING REPAIRER HELPER) Pathologist [facility] Direct Ruiz BS Interpretation Positive( A) Comment:Eluate not performed RYDER positive with anti-C3 only. Blood 02/10/2024 8:51 PM HAND SPRING REPAIRER HELPER 02/10/2024 9:12 PM HAND SPRING REPAIRER HELPER Kassidy Pinzon MD LAB BLOOD BANK TEST ORDERAB LES Final Result Performing Organization Address [facility] Co de Phone Number [place], [place] [id number] * Phosphorus (02/10/2024 8:51 PM HAND SPRING REPAIRER HELPER) Pathologist [facility] Phosphorus, pl 3.1 2.3 - 4.5 mg/dL Blood 02/10/2024 8:51 PM HAND SPRING REPAIRER HELPER 02/10/2024 9:12 PM HAND SPRING REPAIRER HELPER us Carin Granados MD LAB BLOOD ORDERABLES Tete l Result Performing Organization Address [facility] Co de Phone Number [facility] [place], [place] [id number] * Magnesium (02/10/2024 8:51 PM HAND SPRING REPAIRER HELPER) [facility] Magnesium 2.3 1.4 - 2.5 mg/dL Blood 02/10/2024 8:51 PM HAND SPRING REPAIRER HELPER 02/10/2024 9:12 PM HAND SPRING REPAIRER HELPER us Carin Granados MD LAB BLOOD ORDERABLES Tete l Result Performing Organization Address [facility] Co de Phone Number [facility] Department [place] [address] * (ABNORMAL) Hepatic function panel (02/10/2024 8:51 PM HAND SPRING REPAIRER HELPER) [facility] Bilirubin, total 0.8 0.1 - 1.2 mg/dL Bilirubin, direct 0.3 0.1 - 0.3 mg/dL [facility] Protein, pl 7.2 6.5 - 8.5 g/dL [facility] Albumin 3.1(L) 3.5 - 5.0 g/dL [facility] Alk phos 317(H) 40 - 130 Units/L [facility] ALT 26 7 - 45 Units/L [facility] AST 60(H) 10 - 45 Units/L [facility] Blood 02/10/2024 8:51 PM HAND SPRING REPAIRER HELPER 02/10/2024 9:12 PM HAND SPRING REPAIRER HELPER Carin Granados MD LAB BLOOD ORDERABLES Tete l Result [facility] Department [place] [address] * Basic metabolic panel (02/10/2024 8:51 PM HAND SPRING REPAIRER HELPER) [facility] Sodium 137 135 - 145 mmol/L Potassium, pl 4.5 3.3 - 4.9 mmol/L [facility] Chloride 100 97 - 110 mmol/L [facility] CO2 31 22 - 32 mmol/L [facility] Anion gap 6 2 - 15 mmol/L [facility] BUN 25 6 - 25 mg/dL [facility] Creatinine 1.05 0.60 - 1.10 mg/dL [facility] Glucose 103 70 - 199 mg/dL [facility] Comment: Interpretive Data Fasting glucose >/= [...] 2022. Calcium 8.9 8.5 - 10.3 mg/dL [facility] Blood 02/10/2024 8:51 PM HAND SPRING REPAIRER HELPER 02/10/2024 9:12 PM HAND SPRING REPAIRER HELPER Carin Granados MD LAB BLOOD ORDERABLES Tete l Result [facility] [place] [address] * POCT glucose (02/10/2024 8:28 PM HAND SPRING REPAIRER HELPER) Glucose, POC 111 70 - 199 mg/dL Blood 02/10/2024 8:28 PM HAND SPRING REPAIRER HELPER 02/10/2024 8:28 PM HAND SPRING REPAIRER HELPER Kassidy Pinzon MD LAB POCT ORDERABLES - DEVIC E Final Result Performing Organization Address City/[facility] Co de Phone Number [facility] [place] [address] * POCT glucose (02/10/2024 5:13 PM HAND SPRING REPAIRER HELPER) Glucose, POC 96 70 - 199 mg/dL Blood 02/10/2024 5:13 PM HAND SPRING REPAIRER HELPER 02/10/2024 5:13 PM HAND SPRING REPAIRER HELPER Kassidy Pinzon MD LAB POCT ORDERABLES - DEVIC E Final Result Performing Organization Address City/[facility] Co de Phone Number [facility] [place] [address] * IR Central Line Placement > 5 Years (02/10/2024 3:32 PM HAND SPRING REPAIRER HELPER) Anatomical Region Laterality Modality Body N/A Radio Fluoroscop y 02/10/2024 3:42 PM HAND SPRING REPAIRER HELPER Impressions 02/10/2024 3:42 PM HAND SPRING REPAIRER HELPER Successful nontunneled catheter placement (5-Irish dual-lumen) in the left internal jugular vein. [...] Abby Mao MD Narrative 02/10/2024 3:42 PM HAND SPRING REPAIRER HELPER EXAMINATION: NONTUNNELED CENTRAL VENOUS CATHETER PLACEMENT (STD) HISTORY: History sacral wound with plan for long-term intravenous antibiotics. ATTENDING PRESENCE: Abby Mao MD, PhD, the attending radiologist was present from the beginning to the end of the procedure. SEDATION: Local anesthetic only TECHNIQUE: The risks, benefits and alternatives were discussed and informed consent was obtained. Prior to beginning the procedure, [place] Protocol was used to confirm the patient's [...] was assessed. After dilating the tract, a 5-Irish dual lumen aric trimmed to the appropriate [...] was obtained. Prior to beginning the procedure, [place] Protocol was used to confirm the patient's [...] was assessed. After dilating the tract, a 5-Irish dual lumen aric trimmed to the appropriate [...] are seen. IMPRESSION: Successful nontunneled catheter placement (5-Irish dual-lumen) in the left internal jugular vein. [...] dressing. Electronically signed by: Abby Mao MD us Kassidy Pinzon MD IMG IR PROCEDURES Final Res ult * POCT glucose (02/10/2024 12:31 PM HAND SPRING REPAIRER HELPER) Glucose, POC 119 70 - 199 mg/dL Blood 02/10/2024 12:3 1 PM HAND SPRING REPAIRER HELPER 02/10/2024 12:31 PM HAND SPRING REPAIRER HELPER Kassidy Pinzon MD LAB POCT ORDERABLES - DEVIC E Final Result Performing Organization Address City/State/[facility] Co de Phone Number [facility] Department [place] [address] * POCT glucose (02/10/2024 8:15 AM HAND SPRING REPAIRER HELPER) Glucose, POC 96 70 - 199 mg/dL Blood 02/10/2024 8:15 AM HAND SPRING REPAIRER HELPER 02/10/2024 8:15 AM HAND SPRING REPAIRER HELPER Kassidy Pinzon MD LAB POCT ORDERABLES - DEVIC E Final Result Performing Organization Address City/[facility] Co de Phone Number [facility] [place] [address] * eGFR (02/09/2024 9:52 PM HAND SPRING REPAIRER HELPER) [facility] eGFR 71 >=60 mL/min/1. 73 m2 Comment: [...] last reviewed 2021. Blood 02/09/2024 9:52 PM HAND SPRING REPAIRER HELPER 02/09/2024 10:45 PM HAND SPRING REPAIRER HELPER Carin Granados MD LAB BLOOD ORDERABLES Tete georgette Result [facility] [place] [address] * Differential, auto (02/09/2024 9:52 PM HAND SPRING REPAIRER HELPER) Neutrophil abs 3.9 1.5 - 6.5 K/cumm Imm gran abs 0.0 0.0 - 0.1 K/cumm [facility] Lymphocyte abs 1.1 0.8 - 3.3 K/cumm [facility] Monocyte abs 0.7 0.2 - 0.8 K/cumm [facility] Eosinophil abs 0.2 0.0 - 0.5 K/cumm [facility] Basophil abs 0.0 0.0 - 0.1 K/cumm [facility] Neutrophil pct 65.2 % [facility] Comment: Interpretive Data Percent cell count reference ranges are not reported, since discordance with absolute values may lead to misinterpretation of CBC data. Current Interpretive Data was last revised on 2017. Imm gran pct 0.2 % [facility] Comment: Interpretive Data Percent cell count reference ranges are not reported, since discordance with absolute values may lead to misinterpretation of CBC data. Current Interpretive Data was last revised on 2017. Lymphocyte pct 19.0 % [facility] Comment: Interpretive Data Percent cell count reference ranges are not reported, since discordance with absolute values may lead to misinterpretation of CBC data. Current Interpretive Data was last revised on 2017. Monocyte pct 11.8 % [facility] Comment: Interpretive Data Percent cell count reference ranges are not reported, since discordance with absolute values may lead to misinterpretation of CBC data. Current Interpretive Data was last revised on 2017. Eosinophil pct 3.5 % [facility] Comment: Interpretive Data Percent cell count reference ranges are not reported, since discordance with absolute values may lead to misinterpretation of CBC data. Current Interpretive Data was last revised on 2017. Basophil pct 0.3 % [facility] Comment: Interpretive Data Percent cell count reference ranges are not reported, since discordance with absolute values may lead to misinterpretation of CBC data. Current Interpretive Data was last revised on 2017. Blood 02/09/2024 9:52 PM HAND SPRING REPAIRER HELPER 02/09/2024 10:46 PM HAND SPRING REPAIRER HELPER us Carin Granados MD LAB BLOOD ORDERABLES Tete l Result [facility] Department [place] [address] * (ABNORMAL) CBC with auto differential (02/09/2024 9:52 PM HAND SPRING REPAIRER HELPER) WBC 5.9 3.8 - 9.9 K/cumm Hgb 7.0(L) 11.9 - 15.5 g/dL [facility] Hct 22.8(L) 35.6 - 45.5 % [facility] Plt 230 150 - 400 K/cumm [facility] MPV 9.8 9.1 - 12.3 fL [facility] RBC 2.77(L) 3.90 - 5.20 M/cumm [facility] MCV 82.3 81.3 - 96.4 fL [facility] MCH 25.3(L) 27.1 - 33.3 pg [facility] MCHC 30.7(L) 32.3 - 35.7 g/dL [facility] RDW CV 13.7 11.1 - 14.9 % [facility] RDW SD 41.2 35.7 - 48.1 fL [facility] NRBC abs 0.00 0.00 - 0.01 K/cumm [facility] Blood 02/09/2024 9:52 PM HAND SPRING REPAIRER HELPER 02/09/2024 10:46 PM HAND SPRING REPAIRER HELPER us Carin Granados MD LAB BLOOD ORDERABLES Tete l Result [facility] [place] [address] * Phosphorus (02/09/2024 9:52 PM HAND SPRING REPAIRER HELPER) Pathologist [facility] Phosphorus, pl 3.1 2.3 - 4.5 mg/dL Blood 02/09/2024 9:52 PM HAND SPRING REPAIRER HELPER 02/09/2024 10:45 PM HAND SPRING REPAIRER HELPER us Carin Granados MD LAB BLOOD ORDERABLES Tete l Result Performing Organization Address City/[facility] Co de Phone Number [facility] [place] [address] * Magnesium (02/09/2024 9:52 PM HAND SPRING REPAIRER HELPER) Pathologist [facility] Magnesium 2.2 1.4 - 2.5 mg/dL Blood 02/09/2024 9:52 PM HAND SPRING REPAIRER HELPER 02/09/2024 10:45 PM HAND SPRING REPAIRER HELPER us Carin Granados MD LAB BLOOD ORDERABLES Tete l Result Performing Organization Address [facility] [place] [address] * Vancomycin level random (02/09/2024 9:52 PM HAND SPRING REPAIRER HELPER) [facility] Vancomycin random 11.5 mcg/mL Comment: Interpretive Data No reference ranges have been established for random drug levels. Current Interpretive Data was last revised on 2020. Blood 02/09/2024 9:52 PM HAND SPRING REPAIRER HELPER 02/09/2024 10:45 PM HAND SPRING REPAIRER HELPER us Kassidy Pinzon MD LAB BLOOD ORDERABLES Final Result Performing Organization Address City/[facility]/ZIP Co de Phone Number [facility] [place] [address] * (ABNORMAL) Hepatic function panel (02/09/2024 9:52 PM HAND SPRING REPAIRER HELPER) [facility] Bilirubin, total 0.9 0.1 - 1.2 mg/dL Bilirubin, direct 0.3 0.1 - 0.3 mg/dL [facility] Protein, pl 6.7 6.5 - 8.5 g/dL [facility] Albumin 2.7(L) 3.5 - 5.0 g/dL [facility] Alk phos 306(H) 40 - 130 Units/L [facility] ALT 27 7 - 45 Units/L [facility] AST 60(H) 10 - 45 Units/L [facility] Blood 02/09/2024 9:52 PM HAND SPRING REPAIRER HELPER 02/09/2024 10:45 PM HAND SPRING REPAIRER HELPER us Carin Granados MD LAB BLOOD ORDERABLES Tete l Result [facility] Department [place] [address] * Basic metabolic panel (02/09/2024 9:52 PM HAND SPRING REPAIRER HELPER) [facility] Sodium 138 135 - 145 mmol/L Potassium, pl 4.3 3.3 - 4.9 mmol/L [facility] Chloride 103 97 - 110 mmol/L [facility] CO2 29 22 - 32 mmol/L [facility] Anion gap 6 2 - 15 mmol/L [facility] BUN 21 6 - 25 mg/dL [facility] Creatinine 1.03 0.60 - 1.10 mg/dL [facility] Glucose 124 70 - 199 mg/dL [facility] Comment: Interpretive Data Fasting glucose >/= [...] 2022. Calcium 8.7 8.5 - 10.3 mg/dL [facility] Blood 02/09/2024 9:52 PM HAND SPRING REPAIRER HELPER 02/09/2024 10:45 PM HAND SPRING REPAIRER HELPER Carin Granados MD LAB BLOOD ORDERABLES Tete l Result Performing Organization Address City/[facility] Co de Phone Number [facility] [place] [address] * POCT glucose (02/09/2024 8:32 PM HAND SPRING REPAIRER HELPER) Glucose, POC 135 70 - 199 mg/dL Blood 02/09/2024 8:32 PM HAND SPRING REPAIRER HELPER 02/09/2024 8:32 PM HAND SPRING REPAIRER HELPER us Kassidy Pinzon MD LAB POCT ORDERABLES - DEVIC E Final Result Performing Organization Address [facility] [place] [address] * POCT glucose (02/09/2024 5:55 PM HAND SPRING REPAIRER HELPER) Glucose, POC 142 70 - 199 mg/dL Blood 02/09/2024 5:55 PM HAND SPRING REPAIRER HELPER 02/09/2024 5:55 PM HAND SPRING REPAIRER HELPER Kassidy Pinzon MD LAB POCT ORDERABLES - DEVIC E Final Result Performing Organization Address [facility] de Phone Number [facility] [place] [address] * (ABNORMAL) Urinalysis reflex to microscopic and culture Urine (02/09/2024 5:09 PM HAND SPRING REPAIRER HELPER) Color, ur Straw Yellow Clarity, ur Cloudy(A) Clear [facility] Specific gravity, ur 1.014 1.003 - 1.030 [facility] pH, urine 8.0 [facility] Comment: Interpretive Data U rine pH is affected by diet, medications, systemic acid-base disturbances, and renal tubular function. pH may affect urinary stone formation. For example, urine pH below 6.0 may help reduce the tendency for calcium phosphate stones and pH greater than 6.0 may reduce the tendency for uric acid stone formation. Source: [facility] Current Interpretive Data was last revised on 2017 Protein, ur ql Trace Negative [facility] Glucose, ur ql Negative Negative [facility] Ketones, ur Negative Negative [facility] Bilirubin, ur Negative Negative [facility] Blood, ur 1+(A) Negative [facility] Urobilinogen, ur 2.0(A) <2.0 mg/dL [facility] Nitrite, ur Negative Negative [facility] Leukocyte esterase, ur 3+(A) Negative [facility] UA reflex comment Reflex to microscopic UA will be performed. [facility] Urine 02/09/2024 5:09 PM HAND SPRING REPAIRER HELPER 02/09/2024 5:48 PM HAND SPRING REPAIRER HELPER Kassidy Pinzon MD LAB MICROBIOLOGY - GENERAL ORDERABLES Final Result [facility] [place] [address] * (ABNORMAL) Urinalysis, microscopic only (02/09/2024 5:09 PM HAND SPRING REPAIRER HELPER) WBC, ur >50(A) 0 - 5 /HPF RBC, ur 6-10(A) 0 - 2 /HPF [facility] Epithelial cells, squamous, ur 1-5 0 - 5 /HPF [facility] Bacteria, ur Trace(A) [facility] Culture Reflex Comment Reflex to urine culture will be performed. [facility] Urine 02/09/2024 5:09 PM HAND SPRING REPAIRER HELPER 02/09/2024 5:48 PM HAND SPRING REPAIRER HELPER Kassidy Pinzon MD LAB URINE ORDERABLES Final Result [facility] [place] [address] * Urine culture Urine (02/09/2024 5:09 PM HAND SPRING REPAIRER HELPER) Report Final Report: No growth Urine 02/09/2024 5:09 PM HAND SPRING REPAIRER HELPER 02/09/2024 8:14 PM HAND SPRING REPAIRER HELPER [facility]ative [facility] - 02/10/2024 9:34 PM HAND SPRING REPAIRER HELPER Urine culture reflexed based upon urinalysis results. Testing performed by [facility] ([phone]) us Kassidy Pinzon MD LAB MICROBIOLOGY - GENERAL ORDERABLES Final Result Performing Organization Address [facility] Co de Phone Number [facility] [place] [address] * XR Abdomen Ap 1 Vw (02/09/2024 4:09 PM HAND SPRING REPAIRER HELPER) Anatomical Region Laterality Modality Body, Abdomen N/A Computed Radiogr aphy 02/09/2024 4:36 PM HAND SPRING REPAIRER HELPER Impressions 02/09/2024 4:54 PM HAND SPRING REPAIRER HELPER A single view of the abdomen is [...] Raheem Marion M.D. Narrative 02/09/2024 4:54 PM HAND SPRING REPAIRER HELPER EXAMINATION: Abdomen, one view. HISTORY: Abdominal pain. [...] ult * POCT glucose (02/09/2024 12:51 PM HAND SPRING REPAIRER HELPER) [facility] Glucose, POC 121 70 - 199 mg/dL Blood 02/09/2024 12:5 1 PM HAND SPRING REPAIRER HELPER 02/09/2024 12:51 PM HAND SPRING REPAIRER HELPER Kassidy Pinzon MD LAB POCT ORDERABLES - DEVIC E Final Result Performing Organization Address [facility] Co de Phone Number [facility] [place] [address] * POCT glucose (02/09/2024 7:40 AM HAND SPRING REPAIRER HELPER) [facility] Glucose, POC 96 70 - 199 mg/dL Blood 02/09/2024 7:40 AM HAND SPRING REPAIRER HELPER 02/09/2024 7:40 AM HAND SPRING REPAIRER HELPER Kassidy Pinzon MD LAB POCT ORDERABLES - DEVIC E Final Result Performing Organization Address [facility] Co de Phone Number [facility] [place] [address] * eGFR (02/09/2024 12:07 AM HAND SPRING REPAIRER HELPER) [facility] eGFR 77 >=60 mL/min/1. 73 m2 Comment: [...] reviewed 2021. Blood 02/09/2024 12:0 7 AM HAND SPRING REPAIRER HELPER 02/09/2024 12:57 AM HAND SPRING REPAIRER HELPER Carin Granados MD LAB BLOOD ORDERABLES Tete l Result Performing Organization Address City/[facility]/ZIP Co de Phone Number [facility] [place] [address] * Creatinine (02/09/2024 12:07 AM HAND SPRING REPAIRER HELPER) Creatinine 0.97 0.60 - 1.10 mg/dL Blood 02/09/2024 12:0 7 AM HAND SPRING REPAIRER HELPER 02/09/2024 12:57 AM HAND SPRING REPAIRER HELPER N[facility]ative [facility] - 02/09/2024 1:23 AM HAND SPRING REPAIRER HELPER While on enoxaparin Carin Granados MD LAB BLOOD ORDERABLES Tete l Result [facility] [place] [address] * eGFR (02/08/2024 9:50 PM HAND SPRING REPAIRER HELPER) eGFR 76 >=60 mL/min/1. 73 m2 Comment: [...] last reviewed 2021. Blood 02/08/2024 9:50 PM HAND SPRING REPAIRER HELPER 02/08/2024 11:07 PM HAND SPRING REPAIRER HELPER us Carin Granados MD LAB BLOOD ORDERABLES Tete palomino Result [facility] [place] [address] * Differential, auto (02/08/2024 9:50 PM HAND SPRING REPAIRER HELPER) Neutrophil abs 4.0 1.5 - 6.5 K/cumm Imm gran abs 0.0 0.0 - 0.1 K/cumm [facility] Lymphocyte abs 1.1 0.8 - 3.3 K/cumm [facility] Monocyte abs 0.5 0.2 - 0.8 K/cumm [facility] Eosinophil abs 0.3 0.0 - 0.5 K/cumm [facility] Basophil abs 0.0 0.0 - 0.1 K/cumm [facility] Neutrophil pct 68.3 % [facility] Comment: Interpretive Data Percent cell count reference ranges are not reported, since discordance with absolute values may lead to misinterpretation of CBC data. Current Interpretive Data was last revised on 2017. Imm gran pct 0.3 % [facility] Comment: Interpretive Data Percent cell count reference ranges are not reported, since discordance with absolute values may lead to misinterpretation of CBC data. Current Interpretive Data was last revised on 2017. Lymphocyte pct 17.9 % [facility] Comment: Interpretive Data Percent cell count reference ranges are not reported, since discordance with absolute values may lead to misinterpretation of CBC data. Current Interpretive Data was last revised on 2017. Monocyte pct 8.8 % [facility] Comment: Interpretive Data Percent cell count reference ranges are not reported, since discordance with absolute values may lead to misinterpretation of CBC data. Current Interpretive Data was last revised on 2017. Eosinophil pct 4.4 % [facility] Comment: Interpretive Data Percent cell count reference ranges are not reported, since discordance with absolute values may lead to misinterpretation of CBC data. Current Interpretive Data was last revised on 2017. Basophil pct 0.3 % [facility] Comment: Interpretive Data Percent cell count reference ranges are not reported, since discordance with absolute values may lead to misinterpretation of CBC data. Current Interpretive Data was last revised on 2017. Blood 02/08/2024 9:50 PM HAND SPRING REPAIRER HELPER 02/08/2024 10:57 PM HAND SPRING REPAIRER HELPER us Carin Granados MD LAB BLOOD ORDERABLES Tete palomino Result [facility] [place] [address] * (ABNORMAL) CBC with auto differential (02/08/2024 9:50 PM HAND SPRING REPAIRER HELPER) WBC 5.9 3.8 - 9.9 K/cumm Hgb 8.6(L) 11.9 - 15.5 g/dL [facility] Hct 27.7(L) 35.6 - 45.5 % [facility] Plt 239 150 - 400 K/cumm [facility] MPV 9.5 9.1 - 12.3 fL [facility] RBC 3.37(L) 3.90 - 5.20 M/cumm [facility] MCV 82.2 81.3 - 96.4 fL [facility] MCH 25.5(L) 27.1 - 33.3 pg [facility] MCHC 31.0(L) 32.3 - 35.7 g/dL [facility] RDW CV 13.6 11.1 - 14.9 % [facility] RDW SD 40.8 35.7 - 48.1 fL [facility] NRBC abs 0.00 0.00 - 0.01 K/cumm [facility] Blood 02/08/2024 9:50 PM HAND SPRING REPAIRER HELPER 02/08/2024 10:57 PM HAND SPRING REPAIRER HELPER Carin Granados MD LAB BLOOD ORDERABLES Tete l Result Performing Organization Address [facility] Co de Phone Number [facility] [employer] [place], [place] [id number] * (ABNORMAL) Protime-INR (02/08/2024 9:50 PM HAND SPRING REPAIRER HELPER) PT 16.5(H) 9.7 - 13.0 sec INR 1.51(H) 0.90 - 1.20 [facility] Comment: Interpretive data Oral anticoagulant therapeutic ranges: Venous thromboembolism prophylaxis or treatment: 2.0-3.0 CARDIOLOGY Standard range: 2.0-3.0 High-intensity range: 2.5-3.5 Refer to indication-specific guidelines for appropriate target ranges for prosthetic heart valve replacement. Current interpretive data was last revised on 2019. Blood 02/08/2024 9:50 PM HAND SPRING REPAIRER HELPER 02/08/2024 10:56 PM HAND SPRING REPAIRER HELPER us Kassidy Pinzno MD LAB BLOOD ORDERABLES Final Result Performing Organization Address [facility] Co de Phone Number [facility] [place], [place] [id number] * Phosphorus (02/08/2024 9:50 PM HAND SPRING REPAIRER HELPER) Phosphorus, pl 3.6 2.3 - 4.5 mg/dL Blood 02/08/2024 9:50 PM HAND SPRING REPAIRER HELPER 02/08/2024 10:52 PM HAND SPRING REPAIRER HELPER Carin Granados MD LAB BLOOD ORDERABLES Tete l Result Performing Organization Address [facility] de Phone Number [facility] [place] [address] * Magnesium (02/08/2024 9:50 PM HAND SPRING REPAIRER HELPER) Pathologist [facility] Magnesium 2.0 1.4 - 2.5 mg/dL Blood 02/08/2024 9:50 PM HAND SPRING REPAIRER HELPER 02/08/2024 10:52 PM HAND SPRING REPAIRER HELPER Carin Granados MD LAB BLOOD ORDERABLES Tete l Result Performing Organization Address [facility] [place] [address] * Vancomycin level random (02/08/2024 9:50 PM HAND SPRING REPAIRER HELPER) Pathologist [facility] Vancomycin random 20.0 mcg/mL Comment: Interpretive Data No reference ranges have been established for random drug levels. Current Interpretive Data was last revised on 2020. Blood 02/08/2024 9:50 PM HAND SPRING REPAIRER HELPER 02/08/2024 10:52 PM HAND SPRING REPAIRER HELPER Result [facility] Kassidy Pinzon MD LAB BLOOD ORDERABLES Final Result Performing Organization Address [facility] de Phone Number [facility] [place] [address] * (ABNORMAL) Hepatic function panel (02/08/2024 9:50 PM HAND SPRING REPAIRER HELPER) Pathologist [facility] Bilirubin, total 1.2 0.1 - 1.2 mg/dL Bilirubin, direct 0.3 0.1 - 0.3 mg/dL [facility] Protein, pl 7.2 6.5 - 8.5 g/dL [facility] Albumin 3.0(L) 3.5 - 5.0 g/dL [facility] Alk phos 305(H) 40 - 130 Units/L [facility] ALT 27 7 - 45 Units/L [facility] AST 63(H) 10 - 45 Units/L [facility] Blood 02/08/2024 9:50 PM HAND SPRING REPAIRER HELPER 02/08/2024 10:52 PM HAND SPRING REPAIRER HELPER us Carin Granados MD LAB BLOOD ORDERABLES Tete l Result [facility] Department [place] [address] * Basic metabolic panel (02/08/2024 9:50 PM HAND SPRING REPAIRER HELPER) Pathologist [facility] Sodium 139 135 - 145 mmol/L Potassium, pl 4.6 3.3 - 4.9 mmol/L [facility] Chloride 102 97 - 110 mmol/L [facility] CO2 29 22 - 32 mmol/L [facility] Anion gap 8 2 - 15 mmol/L [facility] BUN 23 6 - 25 mg/dL [facility] Creatinine 0.98 0.60 - 1.10 mg/dL [facility] Glucose 89 70 - 199 mg/dL [facility] Comment: Interpretive Data Fasting glucose >/= [...] 2022. Calcium 9.1 8.5 - 10.3 mg/dL [facility] Blood 02/08/2024 9:50 PM HAND SPRING REPAIRER HELPER 02/08/2024 10:52 PM HAND SPRING REPAIRER HELPER us Carin Granados MD LAB BLOOD ORDERABLES Tete l Result Performing Organization Address [facility] Co de Phone Number [facility] [place] [address] * POCT glucose (02/08/2024 8:31 PM HAND SPRING REPAIRER HELPER) Glucose, POC 98 70 - 199 mg/dL Blood 02/08/2024 8:31 PM HAND SPRING REPAIRER HELPER 02/08/2024 8:31 PM HAND SPRING REPAIRER HELPER Kassidy Pinzon MD LAB POCT ORDERABLES - DEVIC E Final Result Performing Organization Address [facility] de Phone Number [facility] [place] [address] * POCT glucose (02/08/2024 5:56 PM HAND SPRING REPAIRER HELPER) Glucose, POC 123 70 - 199 mg/dL Blood 02/08/2024 5:56 PM HAND SPRING REPAIRER HELPER 02/08/2024 5:56 PM HAND SPRING REPAIRER HELPER Kassidy Pinzon MD LAB POCT ORDERABLES - DEVIC E Final Result Performing Organization Address [facility] de Phone Number [facility] [place] [address] * (ABNORMAL) Vancomycin level trough Prior to 3rd dose of 750mg Q12 (02/08/2024 1:55 PM HAND SPRING REPAIRER HELPER) Vancomycin trough 24.7(H) 10.0 - 20.0 mcg/mL Comment:Reviewed Blood 02/08/2024 1:55 PM HAND SPRING REPAIRER HELPER 02/08/2024 2:35 PM HAND SPRING REPAIRER HELPER Narrative [facility] - 02/08/2024 3:10 PM HAND SPRING REPAIRER HELPER Prior to 3rd dose of 750mg Q12 Kassidy Pinzon MD LAB BLOOD ORDERABLES Final Result Performing Organization Address City/[facility]/ZIP Co de Phone Number [facility] [place] [address] * POCT glucose (02/08/2024 11:40 AM HAND SPRING REPAIRER HELPER) Glucose, POC 98 70 - 199 mg/dL Blood 02/08/2024 11:4 0 AM HAND SPRING REPAIRER HELPER 02/08/2024 11:40 AM HAND SPRING REPAIRER HELPER us Kassidy Pinzon MD LAB POCT ORDERABLES - DEVIC E Final Result Performing Organization Address [facility] Co de Phone Number [facility] [place] [address] * POCT glucose (02/08/2024 8:20 AM HAND SPRING REPAIRER HELPER) [facility] Glucose, POC 91 70 - 199 mg/dL Blood 02/08/2024 8:20 AM HAND SPRING REPAIRER HELPER 02/08/2024 8:20 AM HAND SPRING REPAIRER HELPER us Kassidy Pinzon MD LAB POCT ORDERABLES - DEVIC E Final Result Performing Organization Address [facility] Co de Phone Number [facility] [place] [address] * eGFR (02/07/2024 9:30 PM HAND SPRING REPAIRER HELPER) [facility] eGFR 66 >=60 mL/min/1. 73 m2 Comment: [...] last reviewed 2021. Blood 02/07/2024 9:30 PM HAND SPRING REPAIRER HELPER 02/07/2024 10:34 PM HAND SPRING REPAIRER HELPER us Carin Granados MD LAB BLOOD ORDERABLES Tete palomino Result [facility] [place] [address] * Differential, auto (02/07/2024 9:30 PM HAND SPRING REPAIRER HELPER) Neutrophil abs 4.1 1.5 - 6.5 K/cumm Imm gran abs 0.0 0.0 - 0.1 K/cumm [facility] Lymphocyte abs 0.8 0.8 - 3.3 K/cumm [facility] Monocyte abs 0.6 0.2 - 0.8 K/cumm [facility] Eosinophil abs 0.3 0.0 - 0.5 K/cumm [facility] Basophil abs 0.0 0.0 - 0.1 K/cumm [facility] Neutrophil pct 71.0 % [facility] Comment: Interpretive Data Percent cell count reference ranges are not reported, since discordance with absolute values may lead to misinterpretation of CBC data. Current Interpretive Data was last revised on 2017. Imm gran pct 0.5 % [facility] Comment: Interpretive Data Percent cell count reference ranges are not reported, since discordance with absolute values may lead to misinterpretation of CBC data. Current Interpretive Data was last revised on 2017. Lymphocyte pct 14.0 % [facility] Comment: Interpretive Data Percent cell count reference ranges are not reported, since discordance with absolute values may lead to misinterpretation of CBC data. Current Interpretive Data was last revised on 2017. Monocyte pct 9.5 % [facility] Comment: Interpretive Data Percent cell count reference ranges are not reported, since discordance with absolute values may lead to misinterpretation of CBC data. Current Interpretive Data was last revised on 2017. Eosinophil pct 4.8 % [facility] Comment: Interpretive Data Percent cell count reference ranges are not reported, since discordance with absolute values may lead to misinterpretation of CBC data. Current Interpretive Data was last revised on 2017. Basophil pct 0.2 % [facility] Comment: Interpretive Data Percent cell count reference ranges are not reported, since discordance with absolute values may lead to misinterpretation of CBC data. Current Interpretive Data was last revised on 2017. Blood 02/07/2024 9:30 PM HAND SPRING REPAIRER HELPER 02/07/2024 10:29 PM HAND SPRING REPAIRER HELPER us Carin Granados MD LAB BLOOD ORDERABLES Tete palomino Result [facility] Department [place] [address] * (ABNORMAL) CBC with auto differential (02/07/2024 9:30 PM HAND SPRING REPAIRER HELPER) WBC 5.8 3.8 - 9.9 K/cumm Hgb 7.8(L) 11.9 - 15.5 g/dL [facility] Hct 24.7(L) 35.6 - 45.5 % [facility] Plt 226 150 - 400 K/cumm [facility] MPV 9.8 9.1 - 12.3 fL [facility] RBC 2.95(L) 3.90 - 5.20 M/cumm [facility] MCV 83.7 81.3 - 96.4 fL [facility] MCH 26.4(L) 27.1 - 33.3 pg [facility] MCHC 31.6(L) 32.3 - 35.7 g/dL [facility] RDW CV 13.3 11.1 - 14.9 % [facility] RDW SD 40.3 35.7 - 48.1 fL [facility] NRBC abs 0.00 0.00 - 0.01 K/cumm [facility] Blood 02/07/2024 9:30 PM HAND SPRING REPAIRER HELPER 02/07/2024 10:29 PM HAND SPRING REPAIRER HELPER Carin Granados MD LAB BLOOD ORDERABLES Tete l Result Performing Organization Address [facility] Co de Phone Number [facility] [place] [address] * Phosphorus (02/07/2024 9:30 PM HAND SPRING REPAIRER HELPER) Pathologist [facility] Phosphorus, pl 4.4 2.3 - 4.5 mg/dL Blood 02/07/2024 9:30 PM HAND SPRING REPAIRER HELPER 02/07/2024 10:34 PM HAND SPRING REPAIRER HELPER Carin Granados MD LAB BLOOD ORDERABLES Tete l Result Performing Organization Address [facility] Co de Phone Number [facility] [place] [address] * Magnesium (02/07/2024 9:30 PM HAND SPRING REPAIRER HELPER) Pathologist [facility] Magnesium 2.1 1.4 - 2.5 mg/dL Blood 02/07/2024 9:30 PM HAND SPRING REPAIRER HELPER 02/07/2024 10:34 PM HAND SPRING REPAIRER HELPER Result [facility] Carin Granados MD LAB BLOOD ORDERABLES Tete l Result Performing Organization Address [facility] de Phone Number [facility] [place] [address] * (ABNORMAL) Hepatic function panel (02/07/2024 9:30 PM HAND SPRING REPAIRER HELPER) Bilirubin, total 1.1 0.1 - 1.2 mg/dL Bilirubin, direct 0.3 0.1 - 0.3 mg/dL [facility] Protein, pl 6.7 6.5 - 8.5 g/dL [facility] Albumin 2.7(L) 3.5 - 5.0 g/dL [facility] Alk phos 326(H) 40 - 130 Units/L [facility] ALT 31 7 - 45 Units/L [facility] AST 80(H) 10 - 45 Units/L [facility] Blood 02/07/2024 9:30 PM HAND SPRING REPAIRER HELPER 02/07/2024 10:34 PM HAND SPRING REPAIRER HELPER us Carin Granados MD LAB BLOOD ORDERABLES Tete l Result [facility] Department [place] [address] * Basic metabolic panel (02/07/2024 9:30 PM HAND SPRING REPAIRER HELPER) Pathologist [facility] Sodium 139 135 - 145 mmol/L Potassium, pl 4.5 3.3 - 4.9 mmol/L [facility] Chloride 103 97 - 110 mmol/L [facility] CO2 28 22 - 32 mmol/L [facility] Anion gap 8 2 - 15 mmol/L [facility] BUN 24 6 - 25 mg/dL [facility] Creatinine 1.10 0.60 - 1.10 mg/dL [facility] Glucose 109 70 - 199 mg/dL [facility] Comment: Interpretive Data Fasting glucose >/= [...] 2022. Calcium 8.7 8.5 - 10.3 mg/dL [facility] Blood 02/07/2024 9:30 PM HAND SPRING REPAIRER HELPER 02/07/2024 10:34 PM HAND SPRING REPAIRER HELPER Carin Granados MD LAB BLOOD ORDERABLES Tete l Result Performing Organization Address [facility] Co de Phone Number [facility] [place] [address] * POCT glucose (02/07/2024 8:20 PM HAND SPRING REPAIRER HELPER) Glucose, POC 127 70 - 199 mg/dL Blood 02/07/2024 8:20 PM HAND SPRING REPAIRER HELPER 02/07/2024 8:20 PM HAND SPRING REPAIRER HELPER us Kassidy Pinzon MD LAB POCT ORDERABLES - DEVIC E Final Result Performing Organization Address [facility] Phone Number [facility] [place] [address] * POCT glucose (02/07/2024 4:41 PM HAND SPRING REPAIRER HELPER) Glucose, POC 113 70 - 199 mg/dL Blood 02/07/2024 4:41 PM HAND SPRING REPAIRER HELPER 02/07/2024 4:41 PM HAND SPRING REPAIRER HELPER us Kassidy Pinzon MD LAB POCT ORDERABLES - DEVIC E Final Result Performing Organization Address [facility] Co de Phone Number [facility] [place] [address] * POCT glucose (02/07/2024 12:22 PM HAND SPRING REPAIRER HELPER) Glucose, POC 77 70 - 199 mg/dL Blood 02/07/2024 12:2 2 PM HAND SPRING REPAIRER HELPER 02/07/2024 12:22 PM HAND SPRING REPAIRER HELPER us Kassidy Pinzon MD LAB POCT ORDERABLES - DEVIC E Final Result Performing Organization Address [facility] Co de Phone Number [facility] [place] [place] [address] * Tissue aerobic and anaerobic culture and gram stain Bone Sacral (02/07/2024 11:30 AM HAND SPRING REPAIRER HELPER) Direct Specimen Exam Stain: No polymorphonuclear leukocytes seen. No organisms seen. Report Final Report: No growth [facility] Bone (Sacral) 02/07/2024 11: 30 AM HAND SPRING REPAIRER HELPER 02/07/2024 3:04 PM HAND SPRING REPAIRER HELPER Narrative [facility] - 02/10/2024 12:53 PM HAND SPRING REPAIRER HELPER This is NOT Aspirate but instead a Coccyx Bone Biopsy Testing performed by [facility] ([phone]) Specimens submitted from normally sterile body sites [...] data was last revised on 2019. us Kassidy Pinzon MD LAB MICROBIOLOGY - GENERAL ORDERABLES Final Result [facility] [place] [place] [address] * Mycology (fungal) culture and stain Aspirate Sacral (02/07/2024 11:30 AM HAND SPRING REPAIRER HELPER) Direct Specimen Exam Stain: No Fungal elements seen. Report Final Report: No growth of fungus [facility] Aspirate (Sacral) 02/07/2024 11:30 AM HAND SPRING REPAIRER HELPER 02/07/2024 3:09 PM HAND SPRING REPAIRER HELPER N[facility]ative [facility] - 03/06/2024 8:33 AM HAND SPRING REPAIRER HELPER Coccyx Aspirate Testing performed by [facility] ([phone]). us Carin Granados MD LAB MICROBIOLOGY - GENERA L ORDERABLES Final Result [facility] [place] [address] * Mycology (fungal) culture Bone Sacral (02/07/2024 11:30 AM HAND SPRING REPAIRER HELPER) Report Final Report: No growth of fungus Bone (Sacral) 02/07/2024 11: 30 AM HAND SPRING REPAIRER HELPER 02/07/2024 3:45 PM HAND SPRING REPAIRER HELPER Narrative [facility] - 03/06/2024 8:33 AM HAND SPRING REPAIRER HELPER Coccyx Bone Biopsy Testing performed by [facility] ([phone]). us Kassidy Pinzon MD LAB MICROBIOLOGY - GENERAL [place] [address] * Mycobacteriology (AFB) culture and acid-fast stain Bone Sacral (02/07/2024 11:30 AM HAND SPRING REPAIRER HELPER) Direct Specimen Exam Stain: No Acid-fast bacilli seen Report Final Report: No growth of acid-fast bacilli [facility] Bone (Sacral) 02/07/2024 11: 30 AM HAND SPRING REPAIRER HELPER 02/07/2024 3:07 PM HAND SPRING REPAIRER HELPER Narrative [facility] - 04/09/2024 9:27 AM HAND SPRING REPAIRER HELPER Coccyx Bone Biopsy Testing performed by [facility] ([phone]). us Carin Granados MD LAB MICROBIOLOGY - GENERA L [place] [address] * Mycobacteriology (AFB) culture and acid-fast stain Aspirate Sacral (02/07/2024 11:30 AM HAND SPRING REPAIRER HELPER) Direct Specimen Exam Stain: No Acid-fast bacilli seen Report Final Report: No growth of acid-fast bacilli [facility] Aspirate (Sacral) 02/07/2024 11:30 AM HAND SPRING REPAIRER HELPER 02/07/2024 3:09 PM HAND SPRING REPAIRER HELPER Narrative [facility] - 04/09/2024 9:27 AM HAND SPRING REPAIRER HELPER Coccyx Aspirate Testing performed by [facility] ([phone]). Carin Granados MD LAB MICROBIOLOGY - GENERA L ORDERABLES Final Result Performing Organization Address City/[facility]/ZIP Co de Phone Number [facility] [place] [address] * Aerobic and anaerobic culture and gram stain Aspirate Sacral (02/07/2024 11:30 AM HAND SPRING REPAIRER HELPER) Direct Specimen Exam Stain: Rare polymorphonuclear leukocytes seen. No organisms seen. Report Final Report: No growth [facility] Aspirate (Sacral) 02/07/2024 11:30 AM HAND SPRING REPAIRER HELPER 02/07/2024 3:09 PM HAND SPRING REPAIRER HELPER Narrative [facility] - 02/10/2024 12:52 PM HAND SPRING REPAIRER HELPER Coccyx Aspirate Testing performed by [facility]biology [facility] ([phone]) Specimens submitted from normally sterile body sites [...] [place]/ZIP Co de Phone Number [facility] [place] [address] * IR Biopsy Deep Bone (02/07/2024 11:29 AM HAND SPRING REPAIRER HELPER) Anatomical Region Laterality Modality Body N/A Computed Tomogra phy 02/07/2024 1:23 PM HAND SPRING REPAIRER HELPER Impressions 02/07/2024 5:11 PM HAND SPRING REPAIRER HELPER Coccygeal bone biopsy under CT guidance. The core specimens were sent to surgical pathology and microbiology. Aspirate was sent to microbiology. Dictated by: Craig Sheppard M.D. The radiology attending physician has personally reviewed this study, and had reviewed and/or edited this written report and agrees with it. 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 Jorge Carolina MD, PHD, the attending radiologist, was present from the beginning to the end of the procedure. Dr. Ness (resident surgeon) was present and participated in the procedure. [...] was obtained. Prior to beginning the procedure, [place] Protocol was performed to confirm the patient's [...] the end of the procedure. Dr. Ness (resident surgeon) was present and participated in the procedure. [...] was obtained. Prior to beginning the procedure, [place] Protocol was performed to confirm the patient's [...] esult * Surgical pathology (02/07/2024 11:15 AM HAND SPRING REPAIRER HELPER) Bone biopsy, metabolic disease 02/07/2024 11:15 AM HAND SPRING REPAIRER HELPER 02/07/2024 2:18 PM HAND SPRING REPAIRER HELPER Narrative 02/09/2024 10:35 AM HAND SPRING REPAIRER HELPER EPIC results best viewed via link to PDF [facility]il[facility] [place] [address] Note to Patients: This report may contain [...] Gender: F : 1985 (Age: 38) Address: [address] [place] [address] Hospital #: [id number] Taken:02/07/2024 Received:02/07/2024 Reported: 02/09/2024 Patient Type: [facility] Inpatient Service: Medical Location: [place] [address] Physician(s): Jorge Carolina M.D. Barbara Oliva MD [...] Surgical Pathology and Flow Cytometry Departments at [facility] as part of an ongoing compliance quality performance analyst program and in compliance with federally mandated [...] Surgical Pathology and Flow Cytometry Departments of [facility]. It has not been cleared or approved by the U. S. Food and Drug Administration. IMAGES AND SCANNED DOCUMENTS, IF INCLUDED, ONLY VIEWABLE IN PDF VERSION OF REPORT Jorge Carolina MD PhD LAB PATHOLOGY ORDER [place] Final Result * POCT glucose (02/07/2024 8:36 AM HAND SPRING REPAIRER HELPER) Glucose, POC 79 70 - 199 mg/dL Blood 02/07/2024 8:36 AM HAND SPRING REPAIRER HELPER 02/07/2024 8:36 AM HAND SPRING REPAIRER HELPER Kassidy Pinzon MD LAB POCT ORDERABLES - DEVIC E Final Result Performing Organization Address [facility] Co de Phone Number [facility] [place] [address] * POCT glucose (02/07/2024 7:46 AM HAND SPRING REPAIRER HELPER) [facility] Glucose, POC 83 70 - 199 mg/dL Blood 02/07/2024 7:46 AM HAND SPRING REPAIRER HELPER 02/07/2024 7:46 AM HAND SPRING REPAIRER HELPER Kassidy Pinzon MD LAB POCT ORDERABLES - DEVIC E Final Result Performing Organization Address [facility] de Phone Number [facility] [place] [address] * (ABNORMAL) Vancomycin level trough Draw trough 30 minutes prior to 4th dose. (02/07/2024 2:37 AM HAND SPRING REPAIRER HELPER) [facility] Vancomycin trough 24.3(H) 10.0 - 20.0 mcg/mL Blood 02/07/2024 2:37 AM HAND SPRING REPAIRER HELPER 02/07/2024 3:13 AM HAND SPRING REPAIRER HELPER Narrative [facility] - 02/07/2024 3:44 AM HAND SPRING REPAIRER HELPER Draw trough 30 minutes prior to 4th dose. Carin Granados MD LAB BLOOD ORDERABLES Tete l Result Performing Organization Address [facility] [place] [address] * eGFR (02/06/2024 9:36 PM HAND SPRING REPAIRER HELPER) [facility] eGFR 71 >=60 mL/min/1. 73 m2 Comment: [...] last reviewed 2021. Blood 02/06/2024 9:36 PM HAND SPRING REPAIRER HELPER 02/06/2024 11:02 PM HAND SPRING REPAIRER HELPER Carin Granados MD LAB BLOOD ORDERABLES Tete palomino Result [facility] Department [place] [address] * Differential, auto (02/06/2024 9:36 PM HAND SPRING REPAIRER HELPER) Pathologist [facility] Neutrophil abs 3.8 1.5 - 6.5 K/cumm Imm gran abs 0.0 0.0 - 0.1 K/cumm [facility] Lymphocyte abs 0.9 0.8 - 3.3 K/cumm [facility] Monocyte abs 0.6 0.2 - 0.8 K/cumm [facility] Eosinophil abs 0.3 0.0 - 0.5 K/cumm [facility] Basophil abs 0.0 0.0 - 0.1 K/cumm [facility] Neutrophil pct 68.0 % [facility] Comment: Interpretive Data Percent cell count reference ranges are not reported, since discordance with absolute values may lead to misinterpretation of CBC data. Current Interpretive Data was last revised on 2017. Imm gran pct 0.2 % [facility] Comment: Interpretive Data Percent cell count reference ranges are not reported, since discordance with absolute values may lead to misinterpretation of CBC data. Current Interpretive Data was last revised on 2017. Lymphocyte pct 16.0 % [facility] Comment: Interpretive Data Percent cell count reference ranges are not reported, since discordance with absolute values may lead to misinterpretation of CBC data. Current Interpretive Data was last revised on 2017. Monocyte pct 10.8 % [facility] Comment: Interpretive Data Percent cell count reference ranges are not reported, since discordance with absolute values may lead to misinterpretation of CBC data. Current Interpretive Data was last revised on 2017. Eosinophil pct 4.8 % [facility] Comment: Interpretive Data Percent cell count reference ranges are not reported, since discordance with absolute values may lead to misinterpretation of CBC data. Current Interpretive Data was last revised on 2017. Basophil pct 0.2 % [facility] Comment: Interpretive Data Percent cell count reference ranges are not reported, since discordance with absolute values may lead to misinterpretation of CBC data. Current Interpretive Data was last revised on 2017. Blood 02/06/2024 9:36 PM HAND SPRING REPAIRER HELPER 02/06/2024 11:03 PM HAND SPRING REPAIRER HELPER us Carin Granados MD LAB BLOOD ORDERABLES Tete palomino Result [facility] Department [place] [address] * (ABNORMAL) CBC with auto differential (02/06/2024 9:36 PM HAND SPRING REPAIRER HELPER) WBC 5.6 3.8 - 9.9 K/cumm Hgb 8.1(L) 11.9 - 15.5 g/dL [facility] Hct 25.1(L) 35.6 - 45.5 % [facility] Plt 226 150 - 400 K/cumm [facility] MPV 9.6 9.1 - 12.3 fL [facility] RBC 3.03(L) 3.90 - 5.20 M/cumm [facility] MCV 82.8 81.3 - 96.4 fL [facility] MCH 26.7(L) 27.1 - 33.3 pg [facility] MCHC 32.3 32.3 - 35.7 g/dL [facility] RDW CV 13.5 11.1 - 14.9 % [facility] RDW SD 41.0 35.7 - 48.1 fL [facility] NRBC abs 0.00 0.00 - 0.01 K/cumm [facility] Blood 02/06/2024 9:36 PM HAND SPRING REPAIRER HELPER 02/06/2024 11:03 PM HAND SPRING REPAIRER HELPER Carin Granados MD LAB BLOOD ORDERABLES Tete l Result Performing Organization Address [facility] Co de Phone Number [facility] [place] [address] * Phosphorus (02/06/2024 9:36 PM HAND SPRING REPAIRER HELPER) Phosphorus, pl 4.5 2.3 - 4.5 mg/dL Blood 02/06/2024 9:36 PM HAND SPRING REPAIRER HELPER 02/06/2024 11:02 PM HAND SPRING REPAIRER HELPER Carin Granados MD LAB BLOOD ORDERABLES Tete l Result Performing Organization Address [facility]/ZIP Co de Phone Number [facility] Department [place] [address] * Magnesium (02/06/2024 9:36 PM HAND SPRING REPAIRER HELPER) Magnesium 2.1 1.4 - 2.5 mg/dL Blood 02/06/2024 9:36 PM HAND SPRING REPAIRER HELPER 02/06/2024 11:02 PM HAND SPRING REPAIRER HELPER Carin Granados MD LAB BLOOD ORDERABLES Tete l Result Performing Organization Address [facility]/ZIP Co de Phone Number [facility] Department [place] [address] * (ABNORMAL) Hepatic function panel (02/06/2024 9:36 PM HAND SPRING REPAIRER HELPER) [facility] Bilirubin, total 1.0 0.1 - 1.2 mg/dL Bilirubin, direct 0.3 0.1 - 0.3 mg/dL [facility] Protein, pl 6.9 6.5 - 8.5 g/dL [facility] Albumin 2.8(L) 3.5 - 5.0 g/dL [facility] Alk phos 316(H) 40 - 130 Units/L [facility] ALT 30 7 - 45 Units/L [facility] AST 80(H) 10 - 45 Units/L [facility] Blood 02/06/2024 9:36 PM HAND SPRING REPAIRER HELPER 02/06/2024 11:02 PM HAND SPRING REPAIRER HELPER Carin Granados MD LAB BLOOD ORDERABLES Tete l Result [facility] Department [place] [address] * Basic metabolic panel (02/06/2024 9:36 PM HAND SPRING REPAIRER HELPER) [facility] Sodium 135 135 - 145 mmol/L Potassium, pl 4.9 3.3 - 4.9 mmol/L [facility] Chloride 100 97 - 110 mmol/L [facility] CO2 31 22 - 32 mmol/L [facility] Anion gap 4 2 - 15 mmol/L [facility] BUN 24 6 - 25 mg/dL [facility] Creatinine 1.04 0.60 - 1.10 mg/dL [facility] Glucose 83 70 - 199 mg/dL [facility] Comment: Interpretive Data Fasting glucose >/= [...] 2022. Calcium 9.0 8.5 - 10.3 mg/dL [facility] Blood 02/06/2024 9:36 PM HAND SPRING REPAIRER HELPER 02/06/2024 11:02 PM HAND SPRING REPAIRER HELPER Carin Granados MD LAB BLOOD ORDERABLES Tete l Result [facility] [place] [address] * POCT glucose (02/06/2024 9:32 PM HAND SPRING REPAIRER HELPER) Glucose, POC 111 70 - 199 mg/dL Blood 02/06/2024 9:32 PM HAND SPRING REPAIRER HELPER 02/06/2024 9:32 PM HAND SPRING REPAIRER HELPER Carin Granados MD LAB POCT ORDERABLES - DEV ICE Final Result Performing Organization Address [facility]/ZIP Co de Phone Number [facility] [place] [address] * POCT glucose (02/06/2024 5:33 PM HAND SPRING REPAIRER HELPER) Glucose, POC 90 70 - 199 mg/dL Blood 02/06/2024 5:33 PM HAND SPRING REPAIRER HELPER 02/06/2024 5:33 PM HAND SPRING REPAIRER HELPER Carin Granados MD LAB POCT ORDERABLES - DEV ICE Final Result Performing Organization Address [facility] Co de Phone Number [facility] [place] [address] * POCT glucose (02/06/2024 11:52 AM HAND SPRING REPAIRER HELPER) Glucose, POC 104 70 - 199 mg/dL Blood 02/06/2024 11:5 2 AM HAND SPRING REPAIRER HELPER 02/06/2024 11:52 AM HAND SPRING REPAIRER HELPER us Carin Granados MD LAB POCT ORDERABLES - DEV ICE Final Result Performing Organization Address [facility] de Phone Number [facility] [place] [address] * POCT glucose (02/06/2024 8:16 AM HAND SPRING REPAIRER HELPER) Pathologist [facility] Glucose, POC 89 70 - 199 mg/dL Blood 02/06/2024 8:16 AM HAND SPRING REPAIRER HELPER 02/06/2024 8:16 AM HAND SPRING REPAIRER HELPER us Carin Granados MD LAB POCT ORDERABLES - DEV ICE Final Result Performing Organization Address [facility] [place] [address] * Troponin I high-sensitivity series (baseline, 2hr, 4hr, 6hr) (02/06/2024 6:53 AM HAND SPRING REPAIRER HELPER) [facility] Trop I hs <4 <=17 ng/L Comment: Interpretive Data For further hscTnI resources including the diagnostic algorithm and an aid in interpretation, copy and paste this link: [email or web address]/[email or web address] Current Interpretive Data last revised 2019. Blood 02/06/2024 6:53 AM HAND SPRING REPAIRER HELPER 02/06/2024 7:52 AM HAND SPRING REPAIRER HELPER us Hererra Orosco MD LAB BLOOD ORDERABLES Final Resu lt Performing Organization Address [facility] [place] [address] * eGFR (02/05/2024 10:32 PM HAND SPRING REPAIRER HELPER) [facility] eGFR 67 >=60 mL/min/1. 73 m2 Comment: [...] reviewed 2021. Blood 02/05/2024 10:3 2 PM HAND SPRING REPAIRER HELPER 02/05/2024 11:39 PM HAND SPRING REPAIRER HELPER us Carin Granados MD LAB BLOOD ORDERABLES Tete palomino Result [facility] [place] [address] * Differential, auto (02/05/2024 10:32 PM HAND SPRING REPAIRER HELPER) Neutrophil abs 4.1 1.5 - 6.5 K/cumm Imm gran abs 0.0 0.0 - 0.1 K/cumm [facility] Lymphocyte abs 0.9 0.8 - 3.3 K/cumm [facility] Monocyte abs 0.8 0.2 - 0.8 K/cumm [facility] Eosinophil abs 0.3 0.0 - 0.5 K/cumm [facility] Basophil abs 0.0 0.0 - 0.1 K/cumm [facility] Neutrophil pct 67.2 % [facility] Comment: Interpretive Data Percent cell count reference ranges are not reported, since discordance with absolute values may lead to misinterpretation of CBC data. Current Interpretive Data was last revised on 2017. Imm gran pct 0.3 % [facility] Comment: Interpretive Data Percent cell count reference ranges are not reported, since discordance with absolute values may lead to misinterpretation of CBC data. Current Interpretive Data was last revised on 2017. Lymphocyte pct 15.0 % [facility] Comment: Interpretive Data Percent cell count reference ranges are not reported, since discordance with absolute values may lead to misinterpretation of CBC data. Current Interpretive Data was last revised on 2017. Monocyte pct 12.3 % [facility] Comment: Interpretive Data Percent cell count reference ranges are not reported, since discordance with absolute values may lead to misinterpretation of CBC data. Current Interpretive Data was last revised on 2017. Eosinophil pct 4.9 % [facility] Comment: Interpretive Data Percent cell count reference ranges are not reported, since discordance with absolute values may lead to misinterpretation of CBC data. Current Interpretive Data was last revised on 2017. Basophil pct 0.3 % [facility] Comment: Interpretive Data Percent cell count reference ranges are not reported, since discordance with absolute values may lead to misinterpretation of CBC data. Current Interpretive Data was last revised on 2017. Blood 02/05/2024 10:3 2 PM HAND SPRING REPAIRER HELPER 02/05/2024 11:27 PM HAND SPRING REPAIRER HELPER us Carin Granados MD LAB BLOOD ORDERABLES Tete palomino Result [facility] Department [place] [address] * (ABNORMAL) CBC with auto differential (02/05/2024 10:32 PM HAND SPRING REPAIRER HELPER) WBC 6.1 3.8 - 9.9 K/cumm Hgb 7.7(L) 11.9 - 15.5 g/dL [facility] Hct 24.4(L) 35.6 - 45.5 % [facility] Plt 228 150 - 400 K/cumm [facility] MPV 9.8 9.1 - 12.3 fL [facility] RBC 2.94(L) 3.90 - 5.20 M/cumm [facility] MCV 83.0 81.3 - 96.4 fL [facility] MCH 26.2(L) 27.1 - 33.3 pg [facility] MCHC 31.6(L) 32.3 - 35.7 g/dL [facility] RDW CV 13.8 11.1 - 14.9 % [facility] RDW SD 42.0 35.7 - 48.1 fL [facility] NRBC abs 0.00 0.00 - 0.01 K/cumm [facility] Blood 02/05/2024 10:3 2 PM HAND SPRING REPAIRER HELPER 02/05/2024 11:27 PM HAND SPRING REPAIRER HELPER Carin Granados MD LAB BLOOD ORDERABLES Tete l Result Performing Organization Address [facility] de Phone Number [facility] [place] [address] * Phosphorus (02/05/2024 10:32 PM HAND SPRING REPAIRER HELPER) Phosphorus, pl 3.9 2.3 - 4.5 mg/dL Blood 02/05/2024 10:3 2 PM HAND SPRING REPAIRER HELPER 02/05/2024 11:39 PM HAND SPRING REPAIRER HELPER Result [facility] Carin Granados MD LAB BLOOD ORDERABLES Tete l Result Performing Organization Address [facility] de Phone Number [facility] [place] [address] * Magnesium (02/05/2024 10:32 PM HAND SPRING REPAIRER HELPER) Magnesium 2.5 1.4 - 2.5 mg/dL Blood 02/05/2024 10:3 2 PM HAND SPRING REPAIRER HELPER 02/05/2024 11:39 PM HAND SPRING REPAIRER HELPER Carin Granados MD LAB BLOOD ORDERABLES Tete l Result Performing Organization Address [facility] Co de Phone Number [facility] Department [place] [address] * (ABNORMAL) Hepatic function panel (02/05/2024 10:32 PM HAND SPRING REPAIRER HELPER) [facility] Bilirubin, total 0.8 0.1 - 1.2 mg/dL Bilirubin, direct 0.3 0.1 - 0.3 mg/dL [facility] Protein, pl 6.6 6.5 - 8.5 g/dL [facility] Albumin 2.7(L) 3.5 - 5.0 g/dL [facility] Alk phos 288(H) 40 - 130 Units/L [facility] ALT 25 7 - 45 Units/L [facility] AST 65(H) 10 - 45 Units/L [facility] Blood 02/05/2024 10:3 2 PM HAND SPRING REPAIRER HELPER 02/05/2024 11:39 PM HAND SPRING REPAIRER HELPER Carin Granados MD LAB BLOOD ORDERABLES Tete l Result Performing Organization Address [facility]/ZIP Co de Phone Number [facility] [place] [address] * (ABNORMAL) Basic metabolic panel (02/05/2024 10:32 PM HAND SPRING REPAIRER HELPER) [facility] Sodium 139 135 - 145 mmol/L Potassium, pl 5.4(H) 3.3 - 4.9 mmol/L [facility] Chloride 101 97 - 110 mmol/L [facility] CO2 30 22 - 32 mmol/L [facility] Anion gap 8 2 - 15 mmol/L [facility] BUN 30(H) 6 - 25 mg/dL [facility] Creatinine 1.08 0.60 - 1.10 mg/dL [facility] Glucose 125 70 - 199 mg/dL [facility] Comment: Interpretive Data Fasting glucose >/= [...] 2022. Calcium 8.9 8.5 - 10.3 mg/dL [facility] Blood 02/05/2024 10:3 2 PM HAND SPRING REPAIRER HELPER 02/05/2024 11:39 PM HAND SPRING REPAIRER HELPER Carin Granados MD LAB BLOOD ORDERABLES Tete l Result Performing Organization Address [facility]/ZIP Co de Phone Number [facility] [place] [address] * POCT glucose (02/05/2024 9:13 PM HAND SPRING REPAIRER HELPER) Glucose, POC 171 70 - 199 mg/dL Blood 02/05/2024 9:13 PM HAND SPRING REPAIRER HELPER 02/05/2024 9:13 PM HAND SPRING REPAIRER HELPER Carin Granados MD LAB POCT ORDERABLES - DEV ICE Final Result Performing Organization Address [facility] Co de Phone Number [facility] [place] [address] * POCT glucose (02/05/2024 5:38 PM HAND SPRING REPAIRER HELPER) Glucose, POC 149 70 - 199 mg/dL Blood 02/05/2024 5:38 PM HAND SPRING REPAIRER HELPER 02/05/2024 5:38 PM HAND SPRING REPAIRER HELPER Carin Granados MD LAB POCT ORDERABLES - DEV ICE Final Result [facility] [place] [address] * Blood culture Blood (02/05/2024 3:25 PM HAND SPRING REPAIRER HELPER) Report Final Report: No growth Blood 02/05/2024 3:25 PM HAND SPRING REPAIRER HELPER 02/05/2024 4:30 PM HAND SPRING REPAIRER HELPER Narrative [facility] - 02/10/2024 7:00 AM HAND SPRING REPAIRER HELPER Collection->Peripheral 1. Blood cultures are incubated for [...] organism identification may be performed using the [employer] Gram-Positive Blood Culture Assay. This assay detects microbial DNA in positive blood culture broth via hybridization of target DNA to capture oligonucleotides on a microarray. This assay has been cleared by the [place] Food and Drug Administration and its performance characteristics have been verified by the [facility]. 5. For questions about this culture, contact the Microbiology Laboratory at [phone]. Interpretive data was last revised on 2019. Carin Granados MD LAB MICROBIOLOGY - GENERA L ORDERABLES Final Result [facility] [place] [address] * Blood culture Blood (02/05/2024 3:25 PM HAND SPRING REPAIRER HELPER) Report Final Report: No growth Blood 02/05/2024 3:25 PM HAND SPRING REPAIRER HELPER 02/05/2024 4:30 PM HAND SPRING REPAIRER HELPER Narrative [facility] - 02/10/2024 7:00 AM HAND SPRING REPAIRER HELPER Collection->Peripheral 1. Blood cultures are incubated for [...] organism identification may be performed using the [employer] Gram-Positive Blood Culture Assay. This assay detects microbial DNA in positive blood culture broth via hybridization of target DNA to capture oligonucleotides on a microarray. This assay has been cleared by the [place] Food and Drug Administration and its performance characteristics have been verified by the [facility]. 5. For questions about this culture, contact the Microbiology Laboratory at [phone]. Interpretive data was last revised on 2019. Carin Granados MD LAB MICROBIOLOGY - GENERA L ORDERABLES Final Result Performing Organization Address [facility] Co de Phone Number [facility] [place] [address] * POCT glucose (02/05/2024 2:10 PM HAND SPRING REPAIRER HELPER) Glucose, POC 170 70 - 199 mg/dL Blood 02/05/2024 2:10 PM HAND SPRING REPAIRER HELPER 02/05/2024 2:10 PM HAND SPRING REPAIRER HELPER Carin Granados MD LAB POCT ORDERABLES - DEV ICE Final Result Performing Organization Address [facility] Co de Phone Number [facility] [place] [address] * POCT glucose (02/05/2024 9:18 AM HAND SPRING REPAIRER HELPER) Glucose, POC 88 70 - 199 mg/dL Blood 02/05/2024 9:18 AM HAND SPRING REPAIRER HELPER 02/05/2024 9:18 AM HAND SPRING REPAIRER HELPER us Carin Granados MD LAB POCT ORDERABLES - DEV ICE Final Result Performing Organization Address City/State/[facility] Co de Phone Number [facility] [place] [address] * Wound Care (02/05/2024 8:16 AM HAND SPRING REPAIRER HELPER) Narrative Sari Santos DO - 02/05/2024 8:16 AM HAND SPRING REPAIRER HELPER Andrew Seaman MD 02/05/2024 8:21 AM Wound Care Date/Time: 02/05/2024 8:16 AM Performed by: Andrew Seaman MD Authorized by: Andrew Seaman MD Associated wounds: Wound 12/04/23 Pressure Injury Sacrum Consent: Consent obtained: Verbal Consent given by: Patient Risks, benefits, and alternatives were discussed: yes Risks discussed: Bleeding and infection Alternatives discussed: No treatment [place] protocol: Procedure explained and questions answered to [...] (ABNORMAL) Potassium, whole blood (02/05/2024 8:08 AM HAND SPRING REPAIRER HELPER) Potassium, bld 5.4(H) 3.3 - 4.9 mmol/L Blood 02/05/2024 8:08 AM HAND SPRING REPAIRER HELPER 02/05/2024 8:48 AM HAND SPRING REPAIRER HELPER Ashkan Reyes MD LAB BLOOD ORDERABLES Final Result Performing Organization Address City/[facility]/ZIP Co de Phone Number [facility] [place] [address] * (ABNORMAL) Potassium (02/05/2024 7:45 AM HAND SPRING REPAIRER HELPER) Potassium, pl 5.2(H) 3.3 - 4.9 mmol/L Blood 02/05/2024 7:45 AM HAND SPRING REPAIRER HELPER 02/05/2024 8:12 AM HAND SPRING REPAIRER HELPER Narrative [facility] - 02/05/2024 8:32 AM HAND SPRING REPAIRER HELPER Provider to discontinue after two normal results. Ashkan Reyes MD LAB BLOOD ORDERABLES Final Result Performing Organization Address City/[facility] Co de Phone Number [facility] [place] [address] * POCT glucose (02/05/2024 6:00 AM HAND SPRING REPAIRER HELPER) Glucose, POC 124 70 - 199 mg/dL Blood 02/05/2024 6:00 AM HAND SPRING REPAIRER HELPER 02/05/2024 6:00 AM HAND SPRING REPAIRER HELPER Carin Granados MD LAB POCT ORDERABLES - DEV ICE Final Result Performing Organization Address City/[facility] Co de Phone Number [facility] [place] [address] * POCT glucose (02/05/2024 5:04 AM HAND SPRING REPAIRER HELPER) Glucose, POC 119 70 - 199 mg/dL Blood 02/05/2024 5:04 AM HAND SPRING REPAIRER HELPER 02/05/2024 5:04 AM HAND SPRING REPAIRER HELPER us Carin Granados MD LAB POCT ORDERABLES - DEV ICE Final Result Performing Organization Address [facility] de Phone Number [facility] [place] [address] * POCT glucose (02/05/2024 4:11 AM HAND SPRING REPAIRER HELPER) Glucose, POC 105 70 - 199 mg/dL Blood 02/05/2024 4:11 AM HAND SPRING REPAIRER HELPER 02/05/2024 4:11 AM HAND SPRING REPAIRER HELPER Carin Granados MD LAB POCT ORDERABLES - DEV ICE Final Result Performing Organization Address [facility] de Phone Number [facility] [place] [address] * ECG 12 lead (02/05/2024 3:22 AM HAND SPRING REPAIRER HELPER) Ventricular Rate EKG/Min 101 BPM [facility] Atrial Rate 101 BPM [facility] [place]-Interval (MSEC) 148 ms [facility] QRS-Interval (MSEC) 82 ms [facility] QT-Interval (MSEC) 338 ms [facility] QTc 438 ms [facility] P [place] 67 degrees [facility] R [place] 21 degrees [facility] T [place] 48 degrees [facility] Diagnosis Sinus tachycardia Otherwise normal ECG When compared with ECG of 21-JAN-2024 15:37, T wave amplitude has increased in Anterior leads Confirmed by KIRSTIN GIVENS M.D ([id number]) on 02/09/2024 11:54:39 AM [facility] 02/05/2024 3:22 AM HAND SPRING REPAIRER HELPER 02/09/2024 11:54 AM HAND SPRING REPAIRER HELPER Ashkan Reyes MD ECG ORDERABLES Final Resu lt Performing Organization Address City/[facility]/ZIP Co de Phone Number [facility] * eGFR (02/04/2024 9:38 PM HAND SPRING REPAIRER HELPER) eGFR 66 >=60 mL/min/1. 73 m2 Comment: [...] last reviewed 2021. Blood 02/04/2024 9:38 PM HAND SPRING REPAIRER HELPER 02/04/2024 11:21 PM HAND SPRING REPAIRER HELPER us Carin Granados MD LAB BLOOD ORDERABLES Tete l Result Performing Organization Address City/[facility] Co de Phone Number [facility] Department [place] [address] * Differential, auto (02/04/2024 9:38 PM HAND SPRING REPAIRER HELPER) Neutrophil abs 6.2 1.5 - 6.5 K/cumm Imm gran abs 0.1 0.0 - 0.1 K/cumm [facility] Lymphocyte abs 0.9 0.8 - 3.3 K/cumm [facility] Monocyte abs 0.8 0.2 - 0.8 K/cumm [facility] Eosinophil abs 0.4 0.0 - 0.5 K/cumm [facility] Basophil abs 0.0 0.0 - 0.1 K/cumm [facility] Neutrophil pct 74.5 % [facility] Comment: Interpretive Data Percent cell count reference ranges are not reported, since discordance with absolute values may lead to misinterpretation of CBC data. Current Interpretive Data was last revised on 2017. Imm gran pct 0.6 % [facility] Comment: Interpretive Data Percent cell count reference ranges are not reported, since discordance with absolute values may lead to misinterpretation of CBC data. Current Interpretive Data was last revised on 2017. Lymphocyte pct 10.9 % [facility] Comment: Interpretive Data Percent cell count reference ranges are not reported, since discordance with absolute values may lead to misinterpretation of CBC data. Current Interpretive Data was last revised on 2017. Monocyte pct 9.2 % [facility] Comment: Interpretive Data Percent cell count reference ranges are not reported, since discordance with absolute values may lead to misinterpretation of CBC data. Current Interpretive Data was last revised on 2017. Eosinophil pct 4.4 % [facility] Comment: Interpretive Data Percent cell count reference ranges are not reported, since discordance with absolute values may lead to misinterpretation of CBC data. Current Interpretive Data was last revised on 2017. Basophil pct 0.4 % [facility] Comment: Interpretive Data Percent cell count reference ranges are not reported, since discordance with absolute values may lead to misinterpretation of CBC data. Current Interpretive Data was last revised on 2017. Blood 02/04/2024 9:38 PM HAND SPRING REPAIRER HELPER 02/04/2024 11:22 PM HAND SPRING REPAIRER HELPER us Carin Granados MD LAB BLOOD ORDERABLES Tete palomino Result [facility] Department [place] [address] * (ABNORMAL) CBC with auto differential (02/04/2024 9:38 PM HAND SPRING REPAIRER HELPER) WBC 8.3 3.8 - 9.9 K/cumm Hgb 7.9(L) 11.9 - 15.5 g/dL [facility] Hct 25.1(L) 35.6 - 45.5 % [facility] Plt 252 150 - 400 K/cumm [facility] MPV 10.4 9.1 - 12.3 fL [facility] RBC 2.97(L) 3.90 - 5.20 M/cumm [facility] MCV 84.5 81.3 - 96.4 fL [facility] MCH 26.6(L) 27.1 - 33.3 pg [facility] MCHC 31.5(L) 32.3 - 35.7 g/dL [facility] RDW CV 14.1 11.1 - 14.9 % [facility] RDW SD 43.5 35.7 - 48.1 fL [facility] NRBC abs 0.00 0.00 - 0.01 K/cumm [facility] Blood 02/04/2024 9:38 PM HAND SPRING REPAIRER HELPER 02/04/2024 11:22 PM HAND SPRING REPAIRER HELPER Carin Granados MD LAB BLOOD ORDERABLES Tete l Result [facility] Department of [employer] [place], [place] [id number] * Phosphorus (02/04/2024 9:38 PM HAND SPRING REPAIRER HELPER) Pathologist [facility] Phosphorus, pl 3.4 2.3 - 4.5 mg/dL Blood 02/04/2024 9:38 PM HAND SPRING REPAIRER HELPER 02/04/2024 11:21 PM HAND SPRING REPAIRER HELPER Carin Granados MD LAB BLOOD ORDERABLES Tete l Result [facility] [place] [address] * (ABNORMAL) Magnesium (02/04/2024 9:38 PM HAND SPRING REPAIRER HELPER) Magnesium 2.6(H) 1.4 - 2.5 mg/dL Blood 02/04/2024 9:38 PM HAND SPRING REPAIRER HELPER 02/04/2024 11:21 PM HAND SPRING REPAIRER HELPER us Carin Granados MD LAB BLOOD ORDERABLES Tete l Result Performing Organization Address [facility] Co de Phone Number [facility] [place] [address] * (ABNORMAL) Hepatic function panel (02/04/2024 9:38 PM HAND SPRING REPAIRER HELPER) Pathologist [facility] Bilirubin, total 0.8 0.1 - 1.2 mg/dL Bilirubin, direct 0.2 0.1 - 0.3 mg/dL [facility] Comment:Reviewed Protein, pl 6.6 6.5 - 8.5 g/dL [facility] Albumin 2.5(L) 3.5 - 5.0 g/dL [facility] Alk phos 268(H) 40 - 130 Units/L [facility] ALT 17 7 - 45 Units/L [facility] AST 61(H) 10 - 45 Units/L [facility] Blood 02/04/2024 9:38 PM HAND SPRING REPAIRER HELPER 02/04/2024 11:21 PM HAND SPRING REPAIRER HELPER us Carin Granados MD LAB BLOOD ORDERABLES Tete l Result Performing Organization Address [facility] de Phone Number [facility] [place] [address] * (ABNORMAL) Basic metabolic panel (02/04/2024 9:38 PM HAND SPRING REPAIRER HELPER) Pathologist [facility] Sodium 137 135 - 145 mmol/L Potassium, pl 5.9(H) 3.3 - 4.9 mmol/L [facility] Chloride 103 97 - 110 mmol/L [facility] CO2 28 22 - 32 mmol/L [facility] Anion gap 6 2 - 15 mmol/L [facility] BUN 35(H) 6 - 25 mg/dL [facility] Creatinine 1.10 0.60 - 1.10 mg/dL [facility] Glucose 92 70 - 199 mg/dL [facility] Comment: Interpretive Data Fasting glucose >/= [...] 2022. Calcium 8.5 8.5 - 10.3 mg/dL [facility] Blood 02/04/2024 9:38 PM HAND SPRING REPAIRER HELPER 02/04/2024 11:21 PM HAND SPRING REPAIRER HELPER Carin Granados MD LAB BLOOD ORDERABLES Tete l Result Performing Organization Address [facility] de Phone Number [facility] [place] [address] * POCT glucose (02/04/2024 9:04 PM HAND SPRING REPAIRER HELPER) Glucose, POC 105 70 - 199 mg/dL Blood 02/04/2024 9:04 PM HAND SPRING REPAIRER HELPER 02/04/2024 9:04 PM HAND SPRING REPAIRER HELPER Result [facility] Carin Granados MD LAB POCT ORDERABLES - DEV ICE Final Result Performing Organization Address [facility] de Phone Number [facility] [place] [address] * POCT glucose (02/04/2024 5:12 PM HAND SPRING REPAIRER HELPER) Glucose, POC 108 70 - 199 mg/dL Blood 02/04/2024 5:12 PM HAND SPRING REPAIRER HELPER 02/04/2024 5:12 PM HAND SPRING REPAIRER HELPER Carin Granados MD LAB POCT ORDERABLES - DEV ICE Final Result Performing Organization Address [facility] de Phone Number [facility] [place] [address] * POCT glucose (02/04/2024 11:56 AM HAND SPRING REPAIRER HELPER) Glucose, POC 104 70 - 199 mg/dL Blood 02/04/2024 11:5 6 AM HAND SPRING REPAIRER HELPER 02/04/2024 11:56 AM HAND SPRING REPAIRER HELPER Carin Granados MD LAB POCT ORDERABLES - DEV ICE Final Result Performing Organization Address [facility] [place] [address] * (ABNORMAL) Hemoglobin and hematocrit (02/04/2024 11:16 AM HAND SPRING REPAIRER HELPER) Pathologist [facility] Hgb 7.8(L) 11.9 - 15.5 g/dL Hct 24.2(L) 35.6 - 45.5 % [facility] Blood 02/04/2024 11:1 6 AM HAND SPRING REPAIRER HELPER 02/04/2024 12:15 PM HAND SPRING REPAIRER HELPER Carin Granados MD LAB BLOOD ORDERABLES Tete l Result Performing Organization Address [facility] [place] [address] * MRI Sacrum Coccyx WO Contrast (02/04/2024 10:53 AM HAND SPRING REPAIRER HELPER) Anatomical Region Laterality Modality Pelvis N/A Magnetic Resonan ce 02/04/2024 1:34 PM HAND SPRING REPAIRER HELPER Impressions 02/04/2024 2:11 PM HAND SPRING REPAIRER HELPER 1. 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 2. 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 Dictated by: Patric Schmitt D.O. The radiology attending physician has personally reviewed this study, and had reviewed and/or edited this written report and agrees with it. Electronically signed by: Jayme Page M.D. Narrative 02/04/2024 2:11 PM HAND SPRING REPAIRER HELPER EXAMINATION: MRI SACRUM COCCYX WO CONTRAST HISTORY: [...] Result * Transfuse RBC (02/04/2024 7:44 AM HAND SPRING REPAIRER HELPER) Blood Mariano Eid MD BLOOD TRANSFUSION ORDERABLES F inal Result Performing Organization Address [facility] de Phone Number [facility] [place] [address] * POCT glucose (02/04/2024 7:44 AM HAND SPRING REPAIRER HELPER) Glucose, POC 107 70 - 199 mg/dL Blood 02/04/2024 7:44 AM HAND SPRING REPAIRER HELPER 02/04/2024 7:44 AM HAND SPRING REPAIRER HELPER Carin Granados MD LAB POCT ORDERABLES - DEV ICE Final Result Performing Organization Address [facility] de Phone Number [facility] [place] [address] * Type and screen (02/04/2024 1:27 AM HAND SPRING REPAIRER HELPER) ABO Rh O Positive Ruiz, indirect Negative [facility] Blood 02/04/2024 1:27 AM HAND SPRING REPAIRER HELPER 02/04/2024 2:20 AM HAND SPRING REPAIRER HELPER [facility]ative [facility] - 02/04/2024 3:56 AM HAND SPRING REPAIRER HELPER Has the patient had Daratumumab or Isatuximab in the past 6 months?->Unknown Mariano Eid MD LAB BLOOD BANK TEST ORDERABLES Final Result Performing Organization Address City/[facility] Co de Phone Number [facility] [place] [address] * Prepare RBC: 1 Units (02/04/2024 12:43 AM HAND SPRING REPAIRER HELPER) Product code [id number] Unit Number [id number] [facility] Product Blood Type OPOS [facility] Dispense Status PRESUMED TRANSFUSED [facility] Blood 02/04/2024 12:4 3 AM HAND SPRING REPAIRER HELPER 02/04/2024 12:43 AM HAND SPRING REPAIRER HELPER Narrative [facility] - 02/04/2024 4:01 PM HAND SPRING REPAIRER HELPER Are special requirements needed? (All products are leukoreduced and CMV- safe)- >No Date required:-[id number] LRRBC # of [id number] Reasons:-Hgb <7 g/dL} Mariano Eid MD BLOOD BANK PRODUCT ORDERABLES Final Result Performing Organization Address City/[facility] Co de Phone Number [facility] [place] [address] * (ABNORMAL) eGFR (02/03/2024 9:45 PM HAND SPRING REPAIRER HELPER) eGFR 58(L) >=60 mL/min/1. 73 m2 Comment: [...] last reviewed 2021. Blood 02/03/2024 9:45 PM HAND SPRING REPAIRER HELPER 02/03/2024 10:44 PM HAND SPRING REPAIRER HELPER us Meme Santana MD LAB BLOOD ORDERABLES Fin al Result [facility] Department [place] [address] * Differential, auto (02/03/2024 9:45 PM HAND SPRING REPAIRER HELPER) Neutrophil abs 4.8 1.5 - 6.5 K/cumm Imm gran abs 0.0 0.0 - 0.1 K/cumm [facility] Lymphocyte abs 1.0 0.8 - 3.3 K/cumm [facility] Monocyte abs 0.8 0.2 - 0.8 K/cumm [facility] Eosinophil abs 0.2 0.0 - 0.5 K/cumm [facility] Basophil abs 0.0 0.0 - 0.1 K/cumm [facility] Neutrophil pct 70.6 % [facility] Comment: Interpretive Data Percent cell count reference ranges are not reported, since discordance with absolute values may lead to misinterpretation of CBC data. Current Interpretive Data was last revised on 2017. Imm gran pct 0.4 % [facility] Comment: Interpretive Data Percent cell count reference ranges are not reported, since discordance with absolute values may lead to misinterpretation of CBC data. Current Interpretive Data was last revised on 2017. Lymphocyte pct 14.7 % [facility] Comment: Interpretive Data Percent cell count reference ranges are not reported, since discordance with absolute values may lead to misinterpretation of CBC data. Current Interpretive Data was last revised on 2017. Monocyte pct 11.0 % [facility] Comment: Interpretive Data Percent cell count reference ranges are not reported, since discordance with absolute values may lead to misinterpretation of CBC data. Current Interpretive Data was last revised on 2017. Eosinophil pct 3.2 % [facility] Comment: Interpretive Data Percent cell count reference ranges are not reported, since discordance with absolute values may lead to misinterpretation of CBC data. Current Interpretive Data was last revised on 2017. Basophil pct 0.1 % [facility] Comment: Interpretive Data Percent cell count reference ranges are not reported, since discordance with absolute values may lead to misinterpretation of CBC data. Current Interpretive Data was last revised on 2017. Blood 02/03/2024 9:45 PM HAND SPRING REPAIRER HELPER 02/03/2024 10:44 PM HAND SPRING REPAIRER HELPER us Meme Santana MD LAB BLOOD ORDERABLES Fin al Result [facility] Department [place] [address] * (ABNORMAL) CBC with auto differential (02/03/2024 9:45 PM HAND SPRING REPAIRER HELPER) Pathologist [facility] WBC 6.8 3.8 - 9.9 K/cumm Hgb 6.7(L) 11.9 - 15.5 g/dL [facility] Hct 21.5(L) 35.6 - 45.5 % [facility] Plt 194 150 - 400 K/cumm [facility] MPV 10.3 9.1 - 12.3 fL [facility] RBC 2.56(L) 3.90 - 5.20 M/cumm [facility] MCV 84.0 81.3 - 96.4 fL [facility] MCH 26.2(L) 27.1 - 33.3 pg [facility] MCHC 31.2(L) 32.3 - 35.7 g/dL [facility] RDW CV 14.2 11.1 - 14.9 % [facility] RDW SD 43.0 35.7 - 48.1 fL [facility] NRBC abs 0.00 0.00 - 0.01 K/cumm [facility] Blood 02/03/2024 9:45 PM HAND SPRING REPAIRER HELPER 02/03/2024 10:44 PM HAND SPRING REPAIRER HELPER Carin Granados MD LAB BLOOD ORDERABLES Tete l Result Performing Organization Address [facility] Co de Phone Number [facility] [place] [place] [address] * Phosphorus (02/03/2024 9:45 PM HAND SPRING REPAIRER HELPER) Phosphorus, pl 3.6 2.3 - 4.5 mg/dL Blood 02/03/2024 9:45 PM HAND SPRING REPAIRER HELPER 02/03/2024 10:44 PM HAND SPRING REPAIRER HELPER Carin Granados MD LAB BLOOD ORDERABLES Tete l Result Performing Organization Address [facility] de Phone Number [facility] [place] [address] * (ABNORMAL) Magnesium (02/03/2024 9:45 PM HAND SPRING REPAIRER HELPER) Pathologist [facility] Magnesium 2.9(H) 1.4 - 2.5 mg/dL Blood 02/03/2024 9:45 PM HAND SPRING REPAIRER HELPER 02/03/2024 10:44 PM HAND SPRING REPAIRER HELPER Result [facility] Carin Granados MD LAB BLOOD ORDERABLES Tete l Result Performing Organization Address [facility] Co de Phone Number [facility] [place] [place] [address] * (ABNORMAL) Hepatic function panel (02/03/2024 9:45 PM HAND SPRING REPAIRER HELPER) Bilirubin, total 0.6 0.1 - 1.2 mg/dL Bilirubin, direct <0.2 0.1 - 0.3 mg/dL [facility] Comment:Reviewed Protein, pl 6.1(L) 6.5 - 8.5 g/dL [facility] Albumin 2.4(L) 3.5 - 5.0 g/dL [facility] Alk phos 228(H) 40 - 130 Units/L [facility] ALT 16 7 - 45 Units/L [facility] AST 36 10 - 45 Units/L [facility] Blood 02/03/2024 9:45 PM HAND SPRING REPAIRER HELPER 02/03/2024 10:44 PM HAND SPRING REPAIRER HELPER us Carin Granados MD LAB BLOOD ORDERABLES Tete l Result Performing Organization Address City/[facility]/ZIP Co de Phone Number [facility] [place] [address] * (ABNORMAL) Basic metabolic panel (02/03/2024 9:45 PM HAND SPRING REPAIRER HELPER) Pathologist [facility] Sodium 139 135 - 145 mmol/L Potassium, pl 5.2(H) 3.3 - 4.9 mmol/L [facility] Chloride 104 97 - 110 mmol/L [facility] CO2 30 22 - 32 mmol/L [facility] Anion gap 5 2 - 15 mmol/L [facility] BUN 31(H) 6 - 25 mg/dL [facility] Creatinine 1.22(H) 0.60 - 1.10 mg/dL [facility] Glucose 170 70 - 199 mg/dL [facility] Comment: Interpretive Data Fasting glucose >/= [...] 2022. Calcium 8.2(L) 8.5 - 10.3 mg/dL [facility] Blood 02/03/2024 9:45 PM HAND SPRING REPAIRER HELPER 02/03/2024 10:44 PM HAND SPRING REPAIRER HELPER us Carin Granados MD LAB BLOOD [place] [address] * POCT glucose (02/03/2024 9:39 PM HAND SPRING REPAIRER HELPER) Glucose, POC 190 70 - 199 mg/dL Blood 02/03/2024 9:39 PM HAND SPRING REPAIRER HELPER 02/03/2024 9:39 PM HAND SPRING REPAIRER HELPER us Carin Granados MD LAB POCT ORDERABLES - DEV ICE Final Result Performing Organization Address [facility] [place] [address] * POCT glucose (02/03/2024 5:47 PM HAND SPRING REPAIRER HELPER) Glucose, POC 131 70 - 199 mg/dL Blood 02/03/2024 5:47 PM HAND SPRING REPAIRER HELPER 02/03/2024 5:47 PM HAND SPRING REPAIRER HELPER us Carin Granados MD LAB POCT ORDERABLES - DEV ICE Final Result Performing Organization Address [facility] Co de Phone Number [facility] [place] [address] * POCT glucose (02/03/2024 2:37 PM HAND SPRING REPAIRER HELPER) Glucose, POC 138 70 - 199 mg/dL Blood 02/03/2024 2:37 PM HAND SPRING REPAIRER HELPER 02/03/2024 2:37 PM HAND SPRING REPAIRER HELPER us Carin Granados MD LAB POCT ORDERABLES - DEV ICE Final Result Performing Organization Address [facility] [place] [address] * CT Abdomen Pelvis W Contrast (02/03/2024 10:03 AM HAND SPRING REPAIRER HELPER) Anatomical Region Laterality Modality Body N/A Computed Tomogra phy 02/03/2024 10:5 0 AM HAND SPRING REPAIRER HELPER Impressions 02/03/2024 12:25 PM HAND SPRING REPAIRER HELPER 1. Improving left upper pole and left [...] Zeke Chris M.D. Narrative 02/03/2024 12:25 PM HAND SPRING REPAIRER HELPER EXAMINATION: Computed tomography of the abdomen and [...] it. Electronically signed by: Zeke Chris M.D. Carin Granados MD IMG CT PROCEDURES Final R esult * POCT glucose (02/03/2024 9:24 AM HAND SPRING REPAIRER HELPER) Glucose, POC 131 70 - 199 mg/dL Blood 02/03/2024 9:24 AM HAND SPRING REPAIRER HELPER 02/03/2024 9:24 AM HAND SPRING REPAIRER HELPER Carin Granados MD LAB POCT ORDERABLES - DEV ICE Final Result [facility] Department [place] [address] * eGFR (02/02/2024 10:40 PM HAND SPRING REPAIRER HELPER) Pathologist [facility] [...] reviewed 2021. Blood 02/02/2024 10:4 0 PM HAND SPRING REPAIRER HELPER 02/03/2024 12:36 AM HAND SPRING REPAIRER HELPER us Meme Santana MD LAB BLOOD ORDERABLES Fin al Result [facility] Department [place] [address] * Differential, auto (02/02/2024 10:40 PM HAND SPRING REPAIRER HELPER) Pathologist [facility] Neutrophil abs 5.7 1.5 - 6.5 K/cumm Imm gran abs 0.0 0.0 - 0.1 K/cumm [facility] Lymphocyte abs 1.1 0.8 - 3.3 K/cumm [facility] Monocyte abs 0.8 0.2 - 0.8 K/cumm [facility] Eosinophil abs 0.3 0.0 - 0.5 K/cumm [facility] Basophil abs 0.0 0.0 - 0.1 K/cumm [facility] Neutrophil pct 71.1 % [facility] Comment: Interpretive Data Percent cell count reference ranges are not reported, since discordance with absolute values may lead to misinterpretation of CBC data. Current Interpretive Data was last revised on 2017. Imm gran pct 0.4 % [facility] Comment: Interpretive Data Percent cell count reference ranges are not reported, since discordance with absolute values may lead to misinterpretation of CBC data. Current Interpretive Data was last revised on 2017. Lymphocyte pct 14.1 % [facility] Comment: Interpretive Data Percent cell count reference ranges are not reported, since discordance with absolute values may lead to misinterpretation of CBC data. Current Interpretive Data was last revised on 2017. Monocyte pct 10.4 % [facility] Comment: Interpretive Data Percent cell count reference ranges are not reported, since discordance with absolute values may lead to misinterpretation of CBC data. Current Interpretive Data was last revised on 2017. Eosinophil pct 3.9 % [facility] Comment: Interpretive Data Percent cell count reference ranges are not reported, since discordance with absolute values may lead to misinterpretation of CBC data. Current Interpretive Data was last revised on 2017. Basophil pct 0.1 % [facility] Comment: Interpretive Data Percent cell count reference ranges are not reported, since discordance with absolute values may lead to misinterpretation of CBC data. Current Interpretive Data was last revised on 2017. Blood 02/02/2024 10:4 0 PM HAND SPRING REPAIRER HELPER 02/03/2024 12:04 AM HAND SPRING REPAIRER HELPER us Meme Santana MD LAB BLOOD ORDERABLES Fin al Result [facility] Department [place] [address] * (ABNORMAL) CBC with auto differential (02/02/2024 10:40 PM HAND SPRING REPAIRER HELPER) WBC 8.0 3.8 - 9.9 K/cumm Hgb 7.2(L) 11.9 - 15.5 g/dL [facility] Hct 22.5(L) 35.6 - 45.5 % [facility] Plt 190 150 - 400 K/cumm [facility] MPV 10.3 9.1 - 12.3 fL [facility] RBC 2.72(L) 3.90 - 5.20 M/cumm [facility] MCV 82.7 81.3 - 96.4 fL [facility] MCH 26.5(L) 27.1 - 33.3 pg [facility] MCHC 32.0(L) 32.3 - 35.7 g/dL [facility] RDW CV 14.0 11.1 - 14.9 % [facility] RDW SD 42.1 35.7 - 48.1 fL [facility] NRBC abs 0.00 0.00 - 0.01 K/cumm [facility] Blood 02/02/2024 10:4 0 PM HAND SPRING REPAIRER HELPER 02/03/2024 12:04 AM HAND SPRING REPAIRER HELPER Carin Granados MD LAB BLOOD ORDERABLES Tete l Result [facility] [place] [address] * Phosphorus (02/02/2024 10:40 PM HAND SPRING REPAIRER HELPER) Phosphorus, pl 2.8 2.3 - 4.5 mg/dL Blood 02/02/2024 10:4 0 PM HAND SPRING REPAIRER HELPER 02/03/2024 12:36 AM HAND SPRING REPAIRER HELPER Carin Granados MD LAB BLOOD ORDERABLES Tete l Result [facility] [place] [address] * (ABNORMAL) Magnesium (02/02/2024 10:40 PM HAND SPRING REPAIRER HELPER) Magnesium 2.6(H) 1.4 - 2.5 mg/dL Blood 02/02/2024 10:4 0 PM HAND SPRING REPAIRER HELPER 02/03/2024 12:36 AM HAND SPRING REPAIRER HELPER Carin Granados MD LAB BLOOD ORDERABLES Tete l Result Performing Organization Address [facility] Co de Phone Number [facility] [place] [address] * (ABNORMAL) Hepatic function panel (02/02/2024 10:40 PM HAND SPRING REPAIRER HELPER) Bilirubin, total 0.7 0.1 - 1.2 mg/dL Bilirubin, direct 0.2 0.1 - 0.3 mg/dL [facility] Protein, pl 6.4(L) 6.5 - 8.5 g/dL [facility] Albumin 2.6(L) 3.5 - 5.0 g/dL [facility] Alk phos 241(H) 40 - 130 Units/L [facility] ALT 13 7 - 45 Units/L [facility] AST 35 10 - 45 Units/L [facility] Blood 02/02/2024 10:4 0 PM HAND SPRING REPAIRER HELPER 02/03/2024 12:36 AM HAND SPRING REPAIRER HELPER Carin Granados MD LAB BLOOD ORDERABLES Tete l Result Performing Organization Address [facility] de Phone Number [facility] [place] [address] * (ABNORMAL) Basic metabolic panel (02/02/2024 10:40 PM HAND SPRING REPAIRER HELPER) Sodium 138 135 - 145 mmol/L Potassium, pl 5.0(H) 3.3 - 4.9 mmol/L [facility] Chloride 102 97 - 110 mmol/L [facility] CO2 30 22 - 32 mmol/L [facility] Anion gap 6 2 - 15 mmol/L [facility] BUN 26(H) 6 - 25 mg/dL [facility] Creatinine 0.99 0.60 - 1.10 mg/dL [facility] Glucose 135 70 - 199 mg/dL [facility] Comment: Interpretive Data Fasting glucose >/= [...] 2022. Calcium 8.4(L) 8.5 - 10.3 mg/dL [facility] Blood 02/02/2024 10:4 0 PM HAND SPRING REPAIRER HELPER 02/03/2024 12:36 AM HAND SPRING REPAIRER HELPER Carin Granados MD LAB BLOOD ORDERABLES Tete l Result Performing Organization Address [facility]/ZIP Co de Phone Number [facility] Department [place] [address] * POCT glucose (02/02/2024 8:25 PM HAND SPRING REPAIRER HELPER) Glucose, POC 173 70 - 199 mg/dL Blood 02/02/2024 8:25 PM HAND SPRING REPAIRER HELPER 02/02/2024 8:25 PM HAND SPRING REPAIRER HELPER Carin Granados MD LAB POCT ORDERABLES - DEV ICE Final Result Performing Organization Address [facility] Co de Phone Number [facility] Department [place] [address] * (ABNORMAL) Hemoglobin and hematocrit (02/02/2024 5:56 PM HAND SPRING REPAIRER HELPER) Hgb 7.6(L) 11.9 - 15.5 g/dL Hct 23.2(L) 35.6 - 45.5 % [facility] Blood 02/02/2024 5:56 PM HAND SPRING REPAIRER HELPER 02/02/2024 6:12 PM HAND SPRING REPAIRER HELPER Carin Granados MD LAB BLOOD [place] [address] * POCT glucose (02/02/2024 4:53 PM HAND SPRING REPAIRER HELPER) Glucose, POC 172 70 - 199 mg/dL Blood 02/02/2024 4:53 PM HAND SPRING REPAIRER HELPER 02/02/2024 4:53 PM HAND SPRING REPAIRER HELPER Carin Granados MD LAB POCT ORDERABLES - DEV ICE Final Result Performing Organization Address [facility] [place] [address] * Transfuse RBC (02/02/2024 2:55 PM HAND SPRING REPAIRER HELPER) Blood Carin Granados MD BLOOD TRANSFUSION ORDERAB LES Final Result Performing Organization Address [facility]/[place] [address] * POCT glucose (02/02/2024 12:56 PM HAND SPRING REPAIRER HELPER) Glucose, POC 162 70 - 199 mg/dL Blood 02/02/2024 12:5 6 PM HAND SPRING REPAIRER HELPER 02/02/2024 12:56 PM HAND SPRING REPAIRER HELPER Carin Granados MD LAB POCT ORDERABLES - DEV ICE Final Result Performing Organization Address [facility] [place] [address] * POCT glucose (02/02/2024 9:48 AM HAND SPRING REPAIRER HELPER) Glucose, POC 126 70 - 199 mg/dL Blood 02/02/2024 9:48 AM HAND SPRING REPAIRER HELPER 02/02/2024 9:48 AM HAND SPRING REPAIRER HELPER us Carin Granados MD LAB POCT ORDERABLES - DEV ICE Final Result Performing Organization Address [facility] de Phone Number [facility] [place] [address] * Hepatitis panel, acute Blood (01/27/2024 9:00 PM HAND SPRING REPAIRER HELPER) Hep A IgM Nonreactive Nonreactive Hep B core IgM Nonreactive Nonreactive [facility] Hep C Ab Nonreactive Nonreactive [facility] Comment:Antibodies to HCV no t detected. Does NOT exclude the possibility of recent exposure to HCV. Current interpretive data was last revised on 21 HepBsAg Nonreactive Nonreactive [facility] Blood 01/27/2024 9:00 PM HAND SPRING REPAIRER HELPER 01/27/2024 9:44 PM HAND SPRING REPAIRER HELPER us Sheldon Duran MD LAB MICROBIOLOGY - GENERA L ORDERABLES Final Result Performing Organization Address [facility] de Phone Number [facility] Department [place] [address] * (ABNORMAL) Lipid panel (01/26/2024 11:33 PM HAND SPRING REPAIRER HELPER) Cholesterol 137 30 - 199 mg/dL Comment: [...] revised on 2017. Triglycerides 171(H) <=149 mg/dL [facility] Comment: Interpretive Data Ages < or = [...] revised on 2017. HDL 28(L) >=40 mg/dL [facility] Comment: Interpretive Data Ages < or = [...] on 2017. LDL, calculated 79 <=129 mg/dL [facility] Comment: Interpretive Data Ages < or = 19 years Acceptable: <110 mg/dL Borderline high: 110-129 mg/dL High: >or= 130 mg/dL Ages > or = 20 years Optimal: <100 mg/dL Near optimal: 100-129 mg/dL Borderline high: 130-159 mg/dL High: >160 mg/dL Calculated using the Ollie LDL-C estimating equation. This equation was implemented on 2023. Prior to this date LDL-C was estimated using the Friedewald equation. Literature References: 1. Expert Panel on Integrated Guidelines for Cardiovascular Health and Risk Reduction in Children and Adolescents. Pediatrics 2011;128:S213 2. NCEP Expert Panel. Circulation 2004;110:227 3. Ollie Kim al. MEGHANA Cardiol. 2020 July 19;5(5):540-548. doi: 10.1001/jamacardio.2020.0013 Current Interpretive Data was last revised on 2023. Non-HDL Cholesterol 109 mg/dL [facility] Comment: Interpretive Data Ages < or = [...] last revised on 2017. Chol/HDL ratio 5 [facility] Blood 01/26/2024 11:3 3 PM HAND SPRING REPAIRER HELPER 01/27/2024 12:31 AM HAND SPRING REPAIRER HELPER Sheldon Duran MD LAB BLOOD ORDERABLES Tete l Result [facility] [place] [address] * (ABNORMAL) Hemoglobin A1c (12/01/2023 6:48 PM CDT) Hgb A1C 10.6(H) 4.0 - 5.6 % Estimated Average Glucose 258 mg/dL [facility] Comment: The ADA recommends reporting an estimated Average Glucose (eAG) with all Hemoglobin A1c results using the equation derived from a study of 507 normal and diabetic adults. Minority populations were underrepresented and children were not included. (Diabetes Care 31:1234-4212, 2008). The eAG is not equivalent to a fasting glucose. 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 Coli. Not eligible for review. Multiple wounds that require cultures for discontinuation. Kyler Child 02/02/2024 01/09/2024 01/09/2024 Insurance Advance Directives For more information, please contact: [phone] Documents on File Type Date Recorded Patient Sole Dyer Expl anation ADVANCE DIRECTIVE 02/17/2024 11:22 AM POW ER OF MATERIAL SCHEDULER-MEDICAL ADVANCE DIRECTIVE 02/03/2024 2:17 PM MARLEN R OF MATERIAL SCHEDULER-MEDICAL * Full Code (Latest Code Status on [...] Health Care Agent Yadi Sanchez Sister [facility] Health Care Agent Care Teams Apiculture Teacher Relationship Specialty Start Date End Date Barbara Oliva MD [address] [place] [id number] PCP - General Gastroenterology 12/02/23 Miscellaneous, Not In File 01/03/24
--- OUTSIDE RECORDS SUMMARY | 2024-05-04 10:24 | XMS_ITS | Encounter Summary ---
Author Organization [facility] Address [address] [place] [address] Care Team Providers Care Applications System Analyst Name Role Phone Debra Ramires IP TECHNOLOGY TRANSACTIONS ATTORNEY-TANK HOOP BENDER Primary Care Provider Malika Campbell IP TECHNOLOGY TRANSACTIONS ATTORNEY-TANK HOOP BENDER Primary Care Provider [phone] Debra Ramires IP TECHNOLOGY TRANSACTIONS ATTORNEY-TANK HOOP BENDER Primary Care Provider Malika Campbell IP TECHNOLOGY TRANSACTIONS ATTORNEY-TANK HOOP BENDER Primary Care Provider [phone] Malika Campbell IP TECHNOLOGY TRANSACTIONS ATTORNEY-TANK HOOP BENDER Primary Care Provider [phone] Encounter Details Date Type Department Care Team (Late st Contact Info) Description 10/02/2017 Ophth Exam [facility] [place] [address] Carmelo Olsen MD [facility] [place] [address] Social History Tobacco Use Types Packs/Day Years Used Date Smoking Tobacco: Former Cigarettes Q uit: 12/10/2011 Smokeless Tobacco: Never Alcohol Use Standard Drinks/Week Comments No 0 (1 standard drink = 0.6 oz pur e alcohol) Sex and Gender Information Value Date Recorded Sex Assigned at Not on file Gender Identity Not on file Sexual Orientation Not on file documented as of this encounter Plan of Treatment Not on file documented as of this encounter Visit Diagnoses Not on filedocumented in this encounter Care Teams Applications System Analyst Relationship Specialty Start Date End Date Debra Ramires APRN-TANK HOOP BENDER [address] [facility] [address] [place] [address] PCP - General 04/10/15 09/12/20 Malika Campbell APRN-TANK HOOP BENDER [address] [facility] [address] [place] [address] PCP - General Nurse Practitioner [facility] 09/13/2009/23 Debra Ramires APRN-TANK HOOP BENDER [address] [facility] [address] [place] [address] PCP - General 09/24/20 09/30/20 Malika Campbell APRN-TANK HOOP BENDER [address] [place] [phone] PCP - General 10/01/20 04/08/22 Malika Campbell APRN-TANK HOOP BENDER [address] [place] [phone] PCP - General 04/09/22 documented as of this encounter
--- OUTSIDE RECORDS SUMMARY | 2024-05-04 10:24 | XMS_ITS | Clinical Summary ---
Author Organization [facility] Address [address] [place] [address] Care Team Providers Care Bakery Decorator Name Role Phone Malika Campbell INTAKE MANAGER-EXECUTIVE ASSISTANT TO GENERAL COUNSEL Primary Care Provider [phone] Source Comments [facility],non-owned Affiliates and Associated Physician Practices is amultiple site organization consisting of ambulatory clinics and hospital sitesin [place], [place], [place] and [place]. This disclosure is being madepursuant to the Care Everywhere program and may not contain all information available regarding this patient. Last updated 17.[facility] Allergies Active Allergy Reactions Criticality Noted Date Comments Cat Hair Extract Swelling Low 11/21/2013 Clindamycin Shortness of Breath,Rash High 05/11/2016 Dog Epithelium Swelling Low 11/21/2013 Latex Shortness of Breath,Rash High 11/21/2013 Morphine Urticaria,Rash Medium 09/13/2020 Paroxetine Rash Medium 05/11/2016 Medications * Be aware that medications may not be up to date on this document. Alwaysverify current medications with the patient. Medication Sig Dispensed Refills Start Date End Date Status BASAGLAR KWIKPEN (BASAGLAR) pen Inject 60 (sixty) Units subcutaneously 2 times daily Patient has not started med yet Active traZODone (DESYREL) 50 MG tablet Take 25 mg by mouth nightly as needed for Insomnia Active loratadine (CLARITIN) 10 MG tablet Take 1 (one) tablet by mouth once daily as needed for Runny Nose or Allergies Active gabapentin (NEURONTIN) 300 MG capsule Take 2 (two) capsules by mouth 3 times daily Active sertraline (ZOLOFT) 100 MG tablet Take 1 (one) tablet by mouth once daily Active simvastatin (ZOCOR) 20 MG tablet Take 1 (one) tablet by mouth at bedtime Active JANUVIA 100 MG tablet Take 1 (one) tablet by mouth once daily Patient has not started med yet 05/02/2020 Active baclofen (LIORESAL) 10 MG tablet Take 1 (one) tablet by mouth every 8 hours as needed 05/02/2020 Active albuterol HFA (PROVENTIL;VENTOL IN;PROAIR) 108 (90 Base) MCG/ACT inhaler Inhale 2 (two) puffs by mouth every 6 hours as needed Active omeprazole (PriLOSEC) 40 MG capsule Take 1 (one) capsule by mouth daily before breakfast 30 capsule 5 01/07/2022 Active Active Problems Problem Noted Date Diagnosed Date Renal and perinephric abscess 01/10/2024 Hepatic cirrhosis, unspecifi ed hepatic cirrhosis type, unspecified whether ascites present 01/10/2024 Pressure injury of skin of s acral region, unspecified injury stage 01/10/2024 Hepatic cirrhosis 10/30/2020 Gastrointestinal hemorrhage 09/13/2020 Acute on chronic blood loss anemia due to GI ble eding 09/13/2020 DM (diabetes mellitus), type 2, uncontrolled NELIDA (acute kidney injury) 09/13/2020 Encounter for surgical after care following surgery of sense organs 05/14/2016 Cataract extraction status of eye 05/14/2016 Injury of conjunctiva and co rneal abrasion without foreign body, unspecified eye, subsequent encounter 04/22/2015 History of corneal transplant 03/28/2015 Social History Tobacco Use Types Packs/Day Years Used Date Smoking Tobacco: Every Day Cigarettes Smokeless Tobacco: Never Tobacco Cessation:Ready to Q uit: Not Asked; Counseling Given: Not Answered Comments:2-3 cigarettes a day Alcohol Use Standard Drinks/Week Comments Not Currently 0 (1 standard drink = 0.6 oz pure alcohol) since 2011, previous heavy use AUDIT-C Answer Date Recorded Q1: How often do you have a drink containing alc ohol? Never 03/23/2022 Average Number of Drinks Not on file 023 Frequency of Binge Drinking Not on file 05/2022 Sex and Gender Information Value Date Recorded Sex Assigned at Not on file Gender Identity Not on file Sexual Orientation Not on file Last Filed Vital Signs Vital Sign Reading Time Taken Comments Blood Pressure 126/83 03/24/2022 4:09 PM CUSTOMS COMPLIANCE MANAGER Pulse 96 03/24/2022 4:09 PM CUSTOMS COMPLIANCE MANAGER Temperature 35.9 C (96.7 F) 03/24/2022 4:09 PM CUSTOMS COMPLIANCE MANAGER Respiratory Rate 18 03/24/2022 4:09 PM CUSTOMS COMPLIANCE MANAGER Oxygen Saturation 100% 03/24/2022 4:09 PM CUSTOMS COMPLIANCE MANAGER Inhaled Oxygen Concentration - - Weight 84.8 kg (187 lb) 04/09/2022 11:15 AM CUSTOMS COMPLIANCE MANAGER Height 170.2 cm (5' 7 ) 01/07/2022 3:36 PM CDT Body Mass Index 29.29 01/07/2022 3:36 PM CDT Plan of Treatment Health Maintenance Due Date Last Done Comments PAP SMEAR 1985 HIV SCREENING 2000 DTAP/TDAP/TD VACCINES (1 - Tdap) 2004 HEPATITIS B VACCINE (1 of 3 - 19+ 3-dose series) 2004 PNEUMOCOCCAL VACCINE (1 of 2 - PCV) 2004 DIABETES RETINOPATHY SCREENING 09/13/2020 10/02/2017 DIABETES-FOOT EXAM WITH MONOFILAMENT 09/13/2020 DIABETES-HGB A1C 03/16/2021 09/14/2020 DIABETES-SERUM CREATININE 03/24/20232022, 01/07/2022, 10/30/2020, Additional history exists COVID-19 VACCINE ( season) 2023 12/06/2021, 10/27/2020, 10/04/2020 INFLUENZA VACCINE (#1) 2023 , 12/25/2019, 01/04/2018, Additional history exists DEPRESSION SCREENING 03/21/2024 DIABETES - URINE PROTEIN SCREENING 03/21/2024 ZOSTER VACCINE (1 of 2) 11/13/2035 HEPATITIS C SCREENING Completed 12/12/2019 HIB VACCINE Aged Out No longer eligi ble based on patient's age to complete this topic HPV VACCINE Aged Out No longer eligi ble based on patient's age to complete this topic MENINGOCOCCAL (Group B) VACCINE Aged Out No longer eligible based on patient's age to complete this topic MENINGOCOCCAL VACCINE Aged Out No mehnaz bijan eligible based on patient's age to complete this topic Goals Goal Patient Goal Type Associated Problems Recent Progress Patient-Stated? Author Medication Management General On track( 023 11:22 AM CUSTOMS COMPLIANCE MANAGER) David Shook, RN Note: Expected end date: Interventions: Take all medications as prescribed Let your doctor know right away about any changes in your medications Make sure to request a refill of your medication at least one week prior to your last dose Procedures Procedure Name Priority Date/Time Associated Diagnosis Comments COMPREHENSIVE METABOLIC PANEL STAT 03/24/2022 4:51 PM CUSTOMS COMPLIANCE MANAGER HEMOGLOBIN A1C Routine 09/14/2020 3:05 AM CDT HEPATITIS C ANTIBODY Routine 12/12/2019 9:51 AM CDT Cirrhosis of liver without ascites, unspecified hepatic cirrhosis type (HCC) from Last 3 Months or Most Recently Relevant to Health Maintenance Results * (ABNORMAL) COMPREHENSIVE METABOLIC PANEL (03/24/2022 4:51 PM CUSTOMS COMPLIANCE MANAGER) BUN 10 7 - 26 mg/dL 03/24/2022 5:42 PM [facility] Creatinine 0.55(L) 0.56 - 0.96 mg/dL 03/24/2022 5:42 PM [facility] Sodium 134(L) 136 - 145 mmol/L 03/24/2022 5:42 PM [facility] Potassium 3.8 3.5 - 4.5 mmol/L 03/24/2022 5:42 PM [facility] Chloride 94(L) 98 - 107 mmol/L 03/24/2022 5:42 PM [facility] CO2 25 22 - 29 mmol/L 03/24/2022 5:42 PM [facility] Glucose 606(HH) 70 - 115 mg/dL 03/24/2022 5:42 PM [facility] Calcium 9.0 8.4 - 10.2 mg/dL 03/24/2022 5:42 PM CUSTOMS COMPLIANCE MANAGER [facility] Protein Total 7.2 6.0 - 8.3 g/dL 03/24/2022 5:42 PM [facility] Albumin 3.5 3.4 - 5.0 g/dL 03/24/2022 5:42 PM [facility] Bilirubin Total 0.7 0.2 - 1.2 mg/dL 03/24/2022 5:42 PM [facility] Alkaline Phosphatase 127 40 - 150 U/L 03/24/2022 5:42 PM [facility] ALT 19 5 - 55 U/L 03/24/2022 5:42 PM [facility] AST 19 5 - 34 U/L 03/24/2022 5:42 PM [facility] Anion Gap 19(H) 8 - 18 03/24/2022 5:42 PM [facility] BUN/Creatinine Ratio 18 7 - 23 03/24/2022 5:42 PM [facility] Osmolality Calculated 305(H) 270 - 300 mOsm/kg 03/24/2022 5:42 PM [facility] Albumin/Globulin Ratio 0.9(L) 1.1 - 2.3 03/24/2022 5:42 PM [facility] eGFR by CKD-EPI >90 >=90 mL/min/1.7 3 m2 03/24/2022 5:42 PM [facility] Blood BLOOD SPECIMEN / Unknown Venipuncture / Unknown 03/24/2022 4:51 PM CUSTOMS COMPLIANCE MANAGER 03/24/2022 5:03 PM CUSTOMS COMPLIANCE MANAGER Deonna Mukherjee PA-C LAB - CHEMISTRY OR DERABLES Performing Organization Address [facility]/State/[facility] Co de Phone Number [facility] [address] [place] [address], [facility] [phone] * (ABNORMAL) HEMOGLOBIN A1C (09/14/2020 3:05 AM CDT) Hemoglobin A1c 7.0(H) 4.2 - 5.6 % 09/14/2020 4:08 AM CDT -[facility] Estimated Average Glucose 154 mg/dL 09/14/2020 4:08 AM CDT [facility] Blood BLOOD SPECIMEN / Unknown Lab Venipuncture / Unknown 09/14/2020 3:05 AM CDT 09/14/2020 3:37 AM CDT Narrative [facility] - 09/14/2020 4:08 AM CDT The following cutoff levels are recommended by [place] [employer]. A1c > 6.5% : considered as diabetes if two separate tests >6.5% or in an appropriate clinical setting. A1c 5.7% - 6.4% : considered as prediabetes (suggest increased risk for diabetes and cardiovascular disease) Control target level: Should be individualized. < 7 for general (non-) , < 8% less stringent goal, < 6.5 more stringent goal. Hemoglobin A1c measurements are used as an aid in the diagnosis of diabetic mellitus, as an aid to identify patients who may be at the risk for developing diabetic mellitus, and for the monitoring long-term blood glucose control in individuals with diabetes mellitus. This test should not replace glucose testing for patients with Type 1 diabetes, pediatric patients, or women. Falsely low HbA1c results may be observed in patients with clinical conditions that shorten erythrocyte life span or decrease mean erythrocyte age such as the presence of unstable hemoglobin variants, elevated hemoglobin F level or other causes of hemolytic anemia . HbA1c may not accurately reflect glycemic control when clinical conditions that affect erythrocyte survival are present. Severe Iron deficiency anemia may yield falsely high results. Hemoglobin A1c assay should not be used to diagnose or monitor diabetes in patients with malignancy, recent blood transfusion, chronic kidney or liver disease. This method may yield falsely low results when hemoglobin (HbF) exceeds 5% in the specimen. Cielo Pink MD LAB - CHEMISTRY ORD ERABLES [facility] [address] [place] [address] * HEPATITIS C ANTIBODY (12/12/2019 9:51 AM CDT) [facility] Hepatitis C Antibody Non-react abdirahman Srivastava-regissel vance 12/12/2019 12:07 PM CDT [facility] Comment:Hepatitis C Antibody screen indicates no serologic evidence of past or current infection with Hepatitis C Virus. Patients with unexplained liver disease who are immunocompromised or suspected of having acute Hepatitis C infection may benefit from Nucleic Acid Test (ALLY) for Hepatitis C Viral RNA to confirm Hepatitis C status. Blood BLOOD SPECIMEN / Unknown Lab Venipuncture / Unknown 12/12/2019 9:51 AM CDT 12/12/2019 11:02 AM CDT Abby Jaquez ANIKT-ERIC LAB - CHEMI STRY ORDERABLES [facility] [address] [place] [address], [facility] [phone] from Last 3 Months or Most Recently Relevant to Health Maintenance Advance Directives * Full Code (Latest Code Status on File) Date Activated Date Inactivated Comments 09/13/2020 4:58 AM 09/14/2020 9:57 AM Care Teams Bakery Decorator Relationship Specialty Start Date End Date Malika Campbell APRN-CNP [address] [place] [phone] PCP - General 04/09/22
--- OUTSIDE RECORDS SUMMARY | 2024-05-04 10:24 | XMS_ITS | Referral Summary ---
Author Organization [facility] Address [address] [place] [address] Care Team Providers Care De Icer Kit Assembler Name Role Phone Malika Campbell RAYON TESTER-GAS TURBINE ASSEMBLER Primary Care Provider [phone] Source Comments [facility],non-owned Affiliates and Associated Physician Practices is amultiple site organization consisting of ambulatory clinics and hospital sitesin [place], [place], [place] and [place]. This disclosure is being madepursuant to the Care Everywhere program and may not contain all information available regarding this patient. Last updated 17.[facility] Allergies Active Allergy Reactions Criticality Noted Date [...] Comments Blood Pressure 126/83 03/24/2022 4:09 PM INFRASTRUCTURE DIRECTOR Pulse 96 03/24/2022 4:09 PM INFRASTRUCTURE DIRECTOR Temperature 35.9 C (96.7 F) 03/24/2022 4:09 PM INFRASTRUCTURE DIRECTOR Respiratory Rate 18 03/24/2022 4:09 PM INFRASTRUCTURE DIRECTOR Oxygen Saturation 100% 03/24/2022 4:09 PM INFRASTRUCTURE DIRECTOR Inhaled Oxygen Concentration - - Weight 84.8 kg (187 lb) 04/09/2022 11:15 AM INFRASTRUCTURE DIRECTOR Height 170.2 cm (5' 7 ) 01/07/2022 3:36 PM CDT Body Mass Index 29.29 01/07/2022 3:36 PM CDT Functional Status Functional Status Response Date of Assess ment Is person deaf or have serious hearing difficult y? No 01/07/2022 Is person blind or have serious difficulty seein g? No 01/07/2022 Does person have serious dif ficulty walking/climbing stairs? No 01/07/2022 Does person have difficulty dressing/bathing? No 01/07/2022 Does person have difficulty doing errands alone? No 01/07/2022 Cognitive Status Response Date of Assessm ent Does person have difficulty concentrating/remembering/making decisions? No 01/07/2022 Plan of Treatment Not on file Goals Goal Patient Goal Type Associated Problems Recent Progress Patient-Stated? Author Medication Management General On track( 023 11:22 AM INFRASTRUCTURE DIRECTOR) No David Meng, RN Note: Expected end date: Interventions: Take all medications as prescribed Let your doctor know right away about any changes in your medications Make sure to request a refill of your medication at least one week prior to your last dose Procedures Procedure Name Priority Date/Time Associated Diagnosis Comments COMPREHENSIVE METABOLIC PANEL STAT 03/24/2022 4:51 PM INFRASTRUCTURE DIRECTOR HEMOGLOBIN A1C Routine 09/14/2020 3:05 AM CDT HEPATITIS C ANTIBODY Routine 12/12/2019 9:51 AM CDT Cirrhosis of liver without ascites, unspecified hepatic cirrhosis type (HCC) from Last 3 Months or Most Recently Relevant to Health Maintenance Results * (ABNORMAL) COMPREHENSIVE METABOLIC PANEL (03/24/2022 4:51 PM [facility]) BUN 10 7 - 26 mg/dL 03/24/2022 5:42 PM [facility] Creatinine 0.55(L) 0.56 - 0.96 mg/dL 03/24/2022 5:42 PM [facility] Sodium 134(L) 136 - 145 mmol/L 03/24/2022 5:42 PM [facility] Potassium 3.8 3.5 - 4.5 mmol/L 03/24/2022 5:42 PM [facility] Chloride 94(L) 98 - 107 mmol/L 03/24/2022 5:42 PM [facility] CO2 25 22 - 29 mmol/L 03/24/2022 5:42 PM [facility] Glucose 606(HH) 70 - 115 mg/dL 03/24/2022 5:42 PM [facility] Calcium 9.0 8.4 - 10.2 mg/dL 03/24/2022 5:42 PM [facility] Protein Total 7.2 6.0 - 8.3 g/dL 03/24/2022 5:42 PM [facility] Albumin 3.5 3.4 - 5.0 g/dL 03/24/2022 5:42 PM [facility] Bilirubin Total 0.7 0.2 - 1.2 mg/dL 03/24/2022 5:42 PM [facility] Alkaline Phosphatase 127 40 - 150 U/L 03/24/2022 5:42 PM [facility] ALT 19 5 - 55 U/L 03/24/2022 5:42 PM [facility] AST 19 5 - 34 U/L 03/24/2022 5:42 PM [facility] Anion Gap 19(H) 8 - 18 03/24/2022 5:42 PM [facility] BUN/Creatinine Ratio 18 7 - 23 03/24/2022 5:42 PM [facility] Osmolality Calculated 305(H) 270 - 300 mOsm/kg 03/24/2022 5:42 PM [facility] Albumin/Globulin Ratio 0.9(L) 1.1 - 2.3 03/24/2022 5:42 PM [facility] eGFR by CKD-EPI >90 >=90 mL/min/1.7 3 m2 03/24/2022 5:42 PM [facility] Blood BLOOD SPECIMEN / Unknown Venipuncture / Unknown 03/24/2022 4:51 PM INFRASTRUCTURE DIRECTOR 03/24/2022 5:03 PM INFRASTRUCTURE DIRECTOR Deonna Mukherjee PA-C LAB - CHEMISTRY OR DERABLES [facility] [address] [place] [address], [facility] [phone] * (ABNORMAL) HEMOGLOBIN A1C (09/14/2020 3:05 AM CDT) Hemoglobin A1c 7.0(H) 4.2 - 5.6 % 09/14/2020 4:08 AM CDT [facility] Estimated Average Glucose 154 mg/dL 09/14/2020 4:08 AM CDT -[facility] Blood BLOOD SPECIMEN / Unknown Lab Venipuncture / Unknown 09/14/2020 3:05 AM CDT 09/14/2020 3:37 AM CDT Narrative -[facility] - 09/14/2020 4:08 AM CDT The following cutoff levels are recommended by [place] [employer]. A1c > 6.5% : considered [...] Pink MD LAB - CHEMISTRY ORD ERABLES [facility] [address] * HEPATITIS C ANTIBODY (12/12/2019 9:51 AM CDT) Hepatitis C Antibody Non-react abdirahman Non-reac tive 12/12/2019 12:07 PM CDT [facility] Comment:Hepatitis C Antibody screen indicates no [...] CDT 12/12/2019 11:02 AM CDT Abby Jaquez RAYON TESTER-GAS TURBINE ASSEMBLER LAB - CHEMI STRY ORDERABLES [facility] [address] [place] [address], [facility] [phone] from Last 3 Months or Most Recently Relevant to Health Maintenance Advance Directives * Full Code (Latest Code Status on File) Date Activated Date Inactivated Comments 09/13/2020 4:58 AM 09/14/2020 9:57 AM Care Teams De Icer Kit Assembler Relationship Specialty Start Date End Date Malika Campbell, RAYON TESTER-GAS TURBINE ASSEMBLER [address] [place] [phone] PCP - General 04/09/22
--- OUTSIDE RECORDS SUMMARY | 2024-05-04 10:24 | XMS_ITS | Encounter Summary ---
Author Organization [facility] Address [address] [place] [address] Care Team Providers Care Master Control Engineer Name Role Phone Debra Ramires PERMASTONE APPLICATOR-BARMAID Primary Care Provider Malika Campbell PERMASTONE APPLICATOR-BARMAID Primary Care Provider [phone] Debra Ramires PERMASTONE APPLICATOR-BARMAID Primary Care Provider Malika Campbell PERMASTONE APPLICATOR-BARMAID Primary Care Provider [phone] Malika Campbell PERMASTONE APPLICATOR-BARMAID Primary Care Provider [phone] Encounter Details Date Type Department Care Team (Late st Contact Info) Description 11/21/2017 Ophth Exam [facility] [address] [place] [address] Geraldo Grullon MD [address] [place] [id number] Social History Tobacco Use Types Packs/Day Years [...] on filedocumented in this encounter Care Teams Master Control Engineer Relationship Specialty Start Date End Date Debra Ramires APRN-CNP [address] [place] [phone] PCP - General 04/10/15 09/12/20 Malika Campbell APRN-CNP [address] [place] [phone] PCP - General Nurse Practitioner Family 09/13/2009/23 Debra Ramires APRN-CNP [address] [place] [phone] PCP - General 09/24/20 09/30/20 Malika Campbell APRN-CNP [address] [place] [phone] PCP - General 10/01/20 04/08/22 Malika Campbell APRN-CNP [address] [place] [phone] PCP - General 04/09/22 documented as of this encounter
--- OUTSIDE RECORDS SUMMARY | 2024-05-04 10:24 | XMS_ITS | Patient Health Summary ---
Author Organization [facility] Address [address] [place] [address] Care Team Providers Care Regulatory Affairs Internship Name Role Phone Malika Campbell [employer] Primary Care Provider [phone] Note from [facility],non-owned Affiliates and Associated Physician Practices is amultiple site organization consisting of ambulatory clinics and hospital sitesin [place], [place], [place] and [place]. This disclosure is being madepursuant to the Care Everywhere program and may not contain all information available regarding this patient. Last updated 17.[facility] Allergies * Cat Hair Extract(Swelling) -Low Criticality * Clindamycin(Shortness of Breath,Rash) -High Criticality * Dog Epithelium(Swelling) -Low Criticality * Latex(Shortness of Breath,Rash) -High Criticality * Morphine(Urticaria,Rash) -Medium Criticality * Paroxetine(Rash) -Medium Criticality Medications * Be aware that medications may not be up to date on this document. Alwaysverify current medications with the patient. * BASAGLAR KWIKPEN (BASAGLAR) pen Inject 60 (sixty) Units subcutaneously 2 times daily Patient has not started med yet * traZODone (DESYREL) 50 MG tablet Take 25 mg by mouth nightly as needed for Insomnia * loratadine (CLARITIN) 10 MG tablet Take 1 (one) tablet by mouth once daily as needed for Runny Nose or Allergies * gabapentin (NEURONTIN) 300 MG capsule Take 2 (two) capsules by mouth 3 times daily * sertraline (ZOLOFT) 100 MG tablet Take 1 (one) tablet by mouth once daily * simvastatin (ZOCOR) 20 MG tablet Take 1 (one) tablet by mouth at bedtime * JANUVIA 100 MG tablet(Started 05/02/2020) Take 1 (one) tablet by mouth once daily Patient has not started med yet * baclofen (LIORESAL) 10 MG tablet(Started 05/02/2020) Take 1 (one) tablet by mouth every 8 hours as needed * albuterol HFA (PROVENTIL;VENTOLIN;PROAIR) 108 (90 Base) MCG/ACT inhaler Inhale 2 (two) puffs by mouth every 6 hours as needed * omeprazole (PriLOSEC) 40 MG capsule(Started 01/07/2022) Take 1 (one) capsule by mouth daily before breakfast 5 refills by 01/07/2023 Active Problems Problem Noted Date Diagnosed Date [...] Comments Blood Pressure 126/83 03/24/2022 4:09 PM PHYSICAL INSTRUCTOR Pulse 96 03/24/2022 4:09 PM PHYSICAL INSTRUCTOR Temperature 35.9 C (96.7 F) 03/24/2022 4:09 PM PHYSICAL INSTRUCTOR Respiratory Rate 18 03/24/2022 4:09 PM PHYSICAL INSTRUCTOR Oxygen Saturation 100% 03/24/2022 4:09 PM PHYSICAL INSTRUCTOR Inhaled Oxygen Concentration - - Weight 84.8 kg (187 lb) 04/09/2022 11:15 AM PHYSICAL INSTRUCTOR Height 170.2 cm (5' 7 ) 01/07/2022 3:36 PM CDT Body Mass Index 29.29 01/07/2022 3:36 PM CDT Procedures * PT-INR [facility](Performed 03/24/2022) * COMPREHENSIVE METABOLIC PANEL(Performed 03/24/2022) * CBC W AUTO DIFFERENTIAL(Performed 03/24/2022) * HI ED EGD FLEX TRANSORAL DX(Performed 03/23/2022) Performed for Esophageal varices without bleeding, unspecified esophageal varices type (HCC) * EGD(Performed 03/23/2022) * GLUCOSE - POINT OF CARE(Performed 03/23/2022) * HCG URINE QUALITATIVE - POCT (IP) INTERFACED(Performed 03/23/2022) * HCG URINE QUAL POCT NOTIFICATION(Performed 03/23/2022) Performed for Preoperative examination * PATHOLOGY TISSUE(Performed 01/07/2022) Performed for Bleeding esophageal varices, unspecified esophageal varices type (HCC) * HI ED EGD FLEX TRANSORAL DX(Performed 01/07/2022) Performed for Bleeding esophageal varices, unspecified esophageal varices type (HCC) * EGD(Performed 01/07/2022) * GLUCOSE - POINT OF CARE(Performed 01/07/2022) * ALPHA FETOPROTEIN BLOOD TUMOR MARKER(Performed 01/07/2022) Performed for Hepatic cirrhosis, unspecified hepatic cirrhosis type, unspecified whether ascites present (HCC) * PT-INR [facility](Performed 01/07/2022) Performed for Hepatic cirrhosis, unspecified hepatic cirrhosis type, unspecified whether ascites present (HCC) * COMPREHENSIVE METABOLIC PANEL(Performed 01/07/2022) Performed for Hepatic cirrhosis, unspecified hepatic cirrhosis type, unspecified whether ascites present (HCC) * CBC W AUTO DIFFERENTIAL(Performed 01/07/2022) Performed for Hepatic cirrhosis, unspecified hepatic cirrhosis type, unspecified whether ascites present (HCC) * US ABDOMEN LIMITED(Performed 01/07/2022) Performed for Hepatic cirrhosis, unspecified hepatic cirrhosis type, unspecified whether ascites present (HCC), Bleeding esophageal varices, unspecified esophageal varices type (HCC) * PT-INR [facility](Performed 10/30/2020) Performed for Hepatic cirrhosis, unspecified hepatic cirrhosis type, unspecified whether ascites present (HCC) * ALPHA FETOPROTEIN BLOOD TUMOR MARKER(Performed 10/30/2020) Performed for Hepatic cirrhosis, unspecified hepatic cirrhosis type, unspecified whether ascites present (HCC) * COMPREHENSIVE METABOLIC PANEL(Performed 10/30/2020) Performed for Hepatic cirrhosis, unspecified hepatic cirrhosis type, unspecified whether ascites present (HCC) * CBC W AUTO DIFFERENTIAL(Performed 10/30/2020) Performed for Hepatic cirrhosis, unspecified hepatic cirrhosis type, unspecified whether ascites present (HCC) * CARDIAC RHYTHM STRIP ORDER(Performed 09/15/2020) * LAB RESULTS ORDER(Performed 09/15/2020) * CBC W AUTO DIFFERENTIAL(Performed 09/14/2020) * MAGNESIUM BLOOD(Performed 09/14/2020) * RENAL FUNCTION PANEL(Performed 09/14/2020) * HEMOGLOBIN A1C(Performed 09/14/2020) * GLUCOSE - POINT OF CARE(Performed 09/13/2020) * HGB HCT PANEL(Performed 09/13/2020) * GLUCOSE - POINT OF CARE(Performed 09/13/2020) * TRANSFUSE RED BLOOD CELL LEUKOREDUCED UNIT(S)(Performed 09/13/2020) * PREPARE RBC LEUKOREDUCED UNIT(Performed 09/13/2020) * TRANSFUSE RED BLOOD CELL LEUKOREDUCED UNIT(S)(Performed 09/13/2020) * PREPARE RBC LEUKOREDUCED UNIT(Performed 09/13/2020) * EGD(Performed 09/13/2020) * HI ED EGD FLEX TRANSORAL DX(Performed 09/13/2020) * GLUCOSE - POINT OF CARE(Performed 09/13/2020) * HGB HCT PANEL(Performed 09/13/2020) * TRANSFUSE RED BLOOD CELL LEUKOREDUCED UNIT(S)(Performed 09/13/2020) * GLUCOSE - POINT OF CARE(Performed 09/13/2020) * TRANSFUSE RED BLOOD CELL LEUKOREDUCED UNIT(S)(Performed 09/13/2020) * BASIC METABOLIC PANEL (CALCIUM TOTAL)(Performed 09/13/2020) * FOLATE(Performed 09/13/2020) * VITAMIN B12(Performed 09/13/2020) * FERRITIN(Performed 09/13/2020) * IRON + TRANSFERRIN PANEL(Performed 09/13/2020) * HGB HCT PANEL(Performed 09/13/2020) * GLUCOSE - POINT OF CARE(Performed 09/13/2020) * BLOOD TYPE VERIFICATION(Performed 09/13/2020) * ANTIBODY IDENTIFICATION(Performed 09/13/2020) * E ANTIGEN TYPING ([employer] BB)(Performed 09/13/2020) * RUIZ DIRECT(Performed 09/13/2020) * TYPE + SCREEN PANEL(Performed 09/13/2020) * CBC W AUTO DIFFERENTIAL(Performed 09/13/2020) * PT-INR(Performed 09/13/2020) * PHOSPHORUS BLOOD(Performed 09/13/2020) * MAGNESIUM BLOOD(Performed 09/13/2020) * COMPREHENSIVE METABOLIC PANEL(Performed 09/13/2020) * PT-INR [facility](Performed 12/19/2019) * CT ABDOMEN PELVIS W CONTRAST(Performed 12/19/2019) Performed for Abdominal pain, right lower quadrant * AMMONIA(Performed 12/19/2019) * ALCOHOL ETHYL BLOOD(Performed 12/19/2019) * LIPASE BLOOD(Performed 12/19/2019) * HCG URINE QUALITATIVE(Performed 12/19/2019) * URINALYSIS W/MICROSCOPIC NO CULTURE(Performed 12/19/2019) * COMPREHENSIVE METABOLIC PANEL(Performed 12/19/2019) * CBC W AUTO DIFFERENTIAL(Performed 12/19/2019) * HCG URINE QUAL POCT NOTIFICATION(Performed 12/19/2019) * TRANSFERRIN(Performed 12/12/2019) Performed for NAFLD (nonalcoholic fatty liver disease), Cirrhosis of liver without ascites, unspecified hepatic cirrhosis type (HCC) * IRON BLOOD(Performed 12/12/2019) Performed for NAFLD (nonalcoholic fatty liver disease), Cirrhosis of liver without ascites, unspecified hepatic cirrhosis type (HCC) * MITOCHONDRIAL ANTIBODY SCREEN(Performed 12/12/2019) Performed for NAFLD (nonalcoholic fatty liver disease), Cirrhosis of liver without ascites, unspecified hepatic cirrhosis type (HCC) * IGG BLOOD(Performed 12/12/2019) Performed for NAFLD (nonalcoholic fatty liver disease), Cirrhosis of liver without ascites, unspecified hepatic cirrhosis type (HCC) * SMOOTH MUSCLE ANTIBODY W REFLEX TITER(Performed 12/12/2019) Performed for Cirrhosis of liver without ascites, unspecified hepatic cirrhosis type (HCC) * PT-INR [facility](Performed 12/12/2019) Performed for Cirrhosis of liver without ascites, unspecified hepatic cirrhosis type (HCC) * MICROSOMAL ANTIBODY LIVER/KIDNEY(Performed 12/12/2019) Performed for Cirrhosis of liver without ascites, unspecified hepatic cirrhosis type (HCC) * HEPATITIS C ANTIBODY(Performed 12/12/2019) Performed for Cirrhosis of liver without ascites, unspecified hepatic cirrhosis type (HCC) * HEPATITIS B SURFACE ANTIGEN W RFLX CONFIRMATION(Performed 12/12/2019) Performed for Cirrhosis of liver without ascites, unspecified hepatic cirrhosis type (HCC) * HEPATITIS B SURFACE ANTIBODY(Performed 12/12/2019) Performed for Cirrhosis of liver without ascites, unspecified hepatic cirrhosis type (HCC) * HEPATITIS B CORE ANTIBODY TOTAL(Performed 12/12/2019) Performed for Cirrhosis of liver without ascites, unspecified hepatic cirrhosis type (HCC) * FERRITIN(Performed 12/12/2019) Performed for Cirrhosis of liver without ascites, unspecified hepatic cirrhosis type (HCC) * COMPREHENSIVE METABOLIC PANEL(Performed 12/12/2019) Performed for Cirrhosis of liver without ascites, unspecified hepatic cirrhosis type (HCC) * CERULOPLASMIN(Performed 12/12/2019) Performed for Cirrhosis of liver without ascites, unspecified hepatic cirrhosis type (HCC) * CBC W AUTO DIFFERENTIAL(Performed 12/12/2019) Performed for Cirrhosis of liver without ascites, unspecified hepatic cirrhosis type (HCC) * KEVIN BLOOD SCREEN W/REFLEX TITER(Performed 12/12/2019) Performed for Cirrhosis of liver without ascites, unspecified hepatic cirrhosis type (HCC) * [id number] BLOOD(Performed 12/12/2019) Performed for Cirrhosis of liver without ascites, unspecified hepatic cirrhosis type (HCC) * ALPHA FETOPROTEIN BLOOD TUMOR MARKER(Performed 12/12/2019) Performed for Cirrhosis of liver without ascites, unspecified hepatic cirrhosis type (HCC) * US LIVER BIOPSY(Performed 10/22/2019) Performed for Steatosis of liver * PATHOLOGY TISSUE(Performed 10/22/2019) Performed for Hepatic fibrosis, Steatosis of liver * PT-INR [facility](Performed 10/22/2019) Performed for Hepatic fibrosis * CBC W AUTO DIFFERENTIAL(Performed 10/22/2019) Performed for Hepatic fibrosis * HEPATIC FUNCTION PANEL(Performed 10/22/2019) Performed for Hepatic fibrosis * BASIC METABOLIC PANEL (CALCIUM TOTAL)(Performed 10/22/2019) Performed for Hepatic fibrosis * HCG URINE QUALITATIVE - POCT (IP) INTERFACED(Performed 10/22/2019) * HCG URINE QUAL POCT NOTIFICATION(Performed 10/22/2019) Performed for Steatosis of liver, Hepatic fibrosis * HI LIVER ELASTOGRAPHY(Performed 03/25/2019) Performed for NAFLD (nonalcoholic fatty liver disease) * US ABDOMEN LIMITED(Performed 03/22/2019) Performed for Fatty (change of) liver, not elsewhere classified * GLUCOSE - POINT OF CARE(Performed 11/21/2017) * GLUCOSE ACCUCHECK(Performed 05/13/2016) * HCG URINE QUALITATIVE - POCT (IP) SLH(Performed 05/13/2016) * GLUCOSE ACCUCHECK(Performed 05/13/2016) * GLUCOSE ACCUCHECK(Performed 03/27/2015) * CULTURE AEROBIC(Performed 03/27/2015) * PATHOLOGY TISSUE(Performed 03/27/2015) * GLUCOSE ACCUCHECK(Performed 03/27/2015) * HCG URINE QUALITATIVE - POCT (IP) [facility](Performed 03/27/2015) * CULTURE URINE(Performed 01/21/2015) * CT ABDOMEN PELVIS WO CONTRAST(Performed 01/21/2015) * URINALYSIS W/MICROSCOPIC NO CULTURE(Performed 01/21/2015) * HCG URINE QUALITATIVE - POCT (IP) [facility](Performed 01/21/2015) * COMPREHENSIVE METABOLIC PANEL(Performed 01/21/2015) * CBC W AUTO DIFFERENTIAL(Performed 01/21/2015) * CBC W AUTO DIFFERENTIAL(Performed 01/21/2015) * HCG URINE QUALITATIVE - POCT (IP) [facility](Performed 01/21/2015) * COMPREHENSIVE METABOLIC PANEL(Performed 12/11/2014) * LIPASE BLOOD(Performed 12/11/2014) * CBC W AUTO DIFFERENTIAL(Performed 12/11/2014) * CBC W AUTO DIFFERENTIAL(Performed 12/11/2014) * HCG URINE QUALITATIVE - POCT (IP) [facility](Performed 12/11/2014) * HCG URINE QUALITATIVE - POCT (IP) [facility](Performed 12/11/2014) * URINALYSIS REFLEX TO MICROSCOPIC NO CULTURE(Performed 12/11/2014) * DIFFERENTIAL MANUAL(Performed 01/27/2014) * CBC W AUTO DIFFERENTIAL(Performed 01/27/2014) * LIPASE BLOOD(Performed 01/27/2014) * COMPREHENSIVE METABOLIC PANEL(Performed 01/27/2014) * CBC W AUTO DIFFERENTIAL(Performed 01/27/2014) * CT ABDOMEN PELVIS WO CONTRAST(Performed 01/27/2014) * HCG URINE QUALITATIVE - POCT (IP) [facility](Performed 01/27/2014) * URINALYSIS REFLEX TO MICROSCOPIC NO CULTURE(Performed 01/27/2014) * COMPREHENSIVE METABOLIC PANEL(Performed 01/12/2014) * URINALYSIS REFLEX TO MICROSCOPIC NO CULTURE(Performed 01/12/2014) * CBC W AUTO DIFFERENTIAL(Performed 01/12/2014) * CBC W AUTO DIFFERENTIAL(Performed 01/12/2014) * HCG URINE QUALITATIVE - POCT (IP) SLH(Performed 01/12/2014) * GLUCOSE - POINT OF CARE (AMB) [facility](Performed 01/12/2014) * GLUCOSE - POINT OF CARE (AMB) [facility](Performed 01/12/2014) * INFLUENZA A+B ANTIGEN RAPID(Performed 01/12/2014) * GLUCOSE ACCUCHECK(Performed 01/12/2014) * XR CHEST 2VW(Performed 01/12/2014) * HCG URINE QUALITATIVE - POCT (IP) [facility](Performed 11/21/2013) * HCG URINE QUALITATIVE - POCT (IP) [facility](Performed 11/21/2013) * BASIC METABOLIC PANEL (CALCIUM TOTAL)(Performed 11/21/2013) * CBC W AUTO DIFFERENTIAL(Performed 11/21/2013) * CBC W AUTO DIFFERENTIAL(Performed 11/21/2013) * XR CHEST 2VW(Performed 11/21/2013) * HCG URINE QUALITATIVE - POCT (IP) [facility](Performed 11/07/2013) * HCG URINE QUALITATIVE - POCT (IP) [facility](Performed 11/07/2013) * URINALYSIS W/MICROSCOPIC NO CULTURE(Performed 11/07/2013) * GLUCOSE - POINT OF CARE (AMB) [facility](Performed 11/07/2013) * GLUCOSE - POINT OF CARE (AMB) [facility](Performed 11/07/2013) * GLUCOSE ACCUCHECK(Performed 11/07/2013) * HI ED EGD FLEX TRANSORAL DX Performed for Abdominal pain, unspecified abdominal location, Esophageal varices without bleeding, unspecified esophageal varices type (HCC) * HI ED EGD FLEX TRANSORAL DX Performed for Esophageal varices without bleeding, unspecified esophageal varices type (HCC) Results * (ABNORMAL) PT-INR [facility] (03/24/2022 4:51 PM PHYSICAL INSTRUCTOR) Only the most recent of6 resultswithin the time period is included. [facility] PT 16.9(H) 12.1 - 14.8 Seconds 03/24/2022 5:30 PM [facility] INR 1.4 See Comment 03/24/2022 5:30 PM [facility] Comment:The suggested therap eutic range for standard coumadin (warfarin) therapy is an INR of 2.0-3.0. For high-risk patients (Mechanical Mitral Valve Prosthesis, etc.), the suggested prophylactic therapeutic range is an INR of 2.5-3.5. Blood BLOOD SPECIMEN / Unknown Venipuncture / Unknown 03/24/2022 4:51 PM PHYSICAL INSTRUCTOR 03/24/2022 5:03 PM PHYSICAL INSTRUCTOR Deonna Mukherjee PA-C LAB - COAGULATION ORDERABLES Performing Organization Address [facility]/State/[facility] Co de Phone Number [facility] [address] [place] [phone], [facility] [phone] * (ABNORMAL) CBC W AUTO DIFFERENTIAL (03/24/2022 4:51 PM PHYSICAL INSTRUCTOR) Only the most recent of18 resultswithin the time period is included. Pathologist [facility] WBC 9.7 3.5 - 10.5 10 3/uL 03/24/2022 5:07 PM [facility] RBC 4.23 3.80 - 5.20 10 6/uL 03/24/2022 5:07 PM [facility] Hemoglobin 12.0 12.0 - 15.6 g/dL 03/24/2022 5:07 PM [facility] Hematocrit 35.5 35.0 - 45.0 % 03/24/2022 5:07 PM [facility] MCV 83.9 80.7 - 98.3 fL 03/24/2022 5:07 PM [facility] MCH 28.4 26.7 - 34.0 pg 03/24/2022 5:07 PM [facility] MCHC 33.8 30.8 - 35.9 g/dL 03/24/2022 5:07 PM [facility] RDW-SD 37.7 36.0 - 50.0 fL 03/24/2022 5:07 PM [facility] RDW-CV 12.3 11.2 - 14.8 % 03/24/2022 5:07 PM [facility] Platelet Count 143(L) 150 - 400 10 3/uL 03/24/2022 5:07 PM [facility] MPV 10.5 9.4 - 12.9 fL 03/24/2022 5:07 PM [facility] nRBC Absolute 0.00 0 10 3/uL 03/24/2022 5:07 PM [facility] nRBC Auto 0.0 0 /100 WBC 03/24/2022 5:07 PM [facility] Neutrophils % 71.5(H) 35.0 - 70.0 % 03/24/2022 5:07 PM [facility] Lymphocytes % 20.7 20.0 - 43.0 % 03/24/2022 5:07 PM [facility] Monocytes % 6.5 5.0 - 13.0 % 03/24/2022 5:07 PM [facility] Eosinophils % 0.8 0.0 - 6.0 % 03/24/2022 5:07 PM [facility] Basophil % 0.3 0.0 - 2.0 % 03/24/2022 5:07 PM [facility] Neutrophils Absolute 6.92 1.60 - 7.00 10 3/uL 03/24/2022 5:07 PM [facility] Lymphocyte Absolute 2.01 1.10 - 3.90 10 3/uL 03/24/2022 5:07 PM [facility] Monocytes Absolute 0.63 0.26 - 1.07 10 3/uL 03/24/2022 5:07 PM [facility] Eosinophils Absolute 0.08 0.00 - 0.47 10 3/uL 03/24/2022 5:07 PM [facility] Basophils Absolute 0.03 0.00 - 0.08 10 3/uL 03/24/2022 5:07 PM [facility] Immature Granulocytes % 0.2 0.0 - 1.0 % 03/24/2022 5:07 PM [facility] Immature Granulocytes Absolute 0.02 03/24/2022 5:07 PM [facility] Blood BLOOD SPECIMEN / Unknown Venipuncture / Unknown 03/24/2022 4:51 PM PHYSICAL INSTRUCTOR 03/24/2022 5:03 PM PHYSICAL INSTRUCTOR Deonna Mukherjee PA-C LAB - HEMATOLOGY O RDERABLES [facility] [address] [place] [address], [facility] [phone] * (ABNORMAL) COMPREHENSIVE METABOLIC PANEL (03/24/2022 4:51 PM PHYSICAL INSTRUCTOR) Only the most recent of10 resultswithin the time period is included. BUN 10 7 - 26 mg/dL 03/24/2022 5:42 PM [facility] Creatinine 0.55(L) 0.56 - 0.96 mg/dL 03/24/2022 5:42 PM [facility] Sodium 134(L) 136 - 145 mmol/L 03/24/2022 5:42 PM [facility] Potassium 3.8 3.5 - 4.5 mmol/L 03/24/2022 5:42 PM [facility] Chloride 94(L) 98 - 107 mmol/L 03/24/2022 5:42 PM [facility] CO2 25 22 - 29 mmol/L 03/24/2022 5:42 PM [facility] Glucose 606(HH) 70 - 115 mg/dL 03/24/2022 5:42 PM [facility] Calcium 9.0 8.4 - 10.2 mg/dL 03/24/2022 5:42 PM [facility] Protein Total 7.2 6.0 - 8.3 g/dL 03/24/2022 5:42 PM [facility] Albumin 3.5 3.4 - 5.0 g/dL 03/24/2022 5:42 PM [facility] Bilirubin Total 0.7 0.2 - 1.2 mg/dL 03/24/2022 5:42 PM [facility] Alkaline Phosphatase 127 40 - 150 U/L 03/24/2022 5:42 PM [facility] ALT 19 5 - 55 U/L 03/24/2022 5:42 PM [facility] AST 19 5 - 34 U/L 03/24/2022 5:42 PM [facility] Anion Gap 19(H) 8 - 18 03/24/2022 5:42 PM [facility] BUN/Creatinine Ratio 18 7 - 23 03/24/2022 5:42 PM [facility] Osmolality Calculated 305(H) 270 - 300 mOsm/kg 03/24/2022 5:42 PM [facility] Albumin/Globulin Ratio 0.9(L) 1.1 - 2.3 03/24/2022 5:42 PM [facility] eGFR by CKD-EPI >90 >=90 mL/min/1.7 3 m2 03/24/2022 5:42 PM [facility] Blood BLOOD SPECIMEN / Unknown Venipuncture / Unknown 03/24/2022 4:51 PM PHYSICAL INSTRUCTOR 03/24/2022 5:03 PM PHYSICAL INSTRUCTOR Deonna Mukherjee PA-C LAB - CHEMISTRY OR DERABLES Performing Organization Address [facility]/State/[facility] Co de Phone Number [facility] [address] [place] [address], [facility] [phone] * EGD (03/23/2022 3:24 PM PHYSICAL INSTRUCTOR) Report Endoscopy POC Endoscopy Department Report _ Patient Name: Shruti Velazquez Procedure Date: 03/23/2022 3:24 PM Date of : 1985 Classification: Outpatient Gender: Female Ethnicity: or Race: White _ Providers: Rosalba Mendoza (Fellow) Referring MD: Malika Campbell (Referring MD) Procedure: Upper GI endoscopy Indications: Follow-up of esophageal varices, For therapy of esophageal varices Medications: Monitored Anesthesia Care Description of Procedure: Pre-Anesthesia Assessment: - Prior to the procedure, a History and Physical was performed, and patient medications and allergies were reviewed. The patient's tolerance of previous anesthesia was also reviewed. The risks and benefits of the procedure and the sedation options and risks were discussed with the patient. All questions were answered, and informed consent was obtained. Prior Anticoagulants: The patient has taken no previous anticoagulant or antiplatelet agents. ASA Grade Assessment: III - A patient with severe systemic disease. After reviewing the risks and benefits, the patient was deemed in satisfactory condition to undergo the procedure. After obtaining informed consent, the endoscope was passed under direct vision. Throughout the procedure, the patient's blood pressure, pulse, and oxygen saturations were monitored continuously. The Endoscope was introduced through the mouth, and advanced to the second part of duodenum. The upper GI endoscopy was accomplished without difficulty. The patient tolerated the procedure well. Findings: Large (> 5 mm) varices were found in the lower third of the esophagus. Two bands were successfully placed with complete eradication, resulting in deflation of varices. Mild portal hypertensive gastropathy was found in the entire examined stomach. The cardia and gastric fundus were normal on retroflexion. The examined duodenum was normal. Estimated Blood Loss: Estimated blood loss was minimal. Complications: No immediate complications. Impression: - Large (> 5 mm) esophageal varices. Completely eradicated. Banded x2. - Portal hypertensive gastropathy. - Normal examined duodenum. - No specimens collected. Recommendation: - Patient has a contact number available for emergencies. The signs and symptoms of potential delayed complications were discussed with the patient. Return to normal activities tomorrow. Written discharge instructions were provided to the patient. - Soft diet for 2 days. - Continue present medications. - Repeat upper endoscopy in 6 months for retreatment. - Return to liver clinic as previously scheduled. Attending Participation: I was present and participated during the entire procedure, including non-werner portions. Procedure Code(s): --- Professional --- 22721, Esophagogastroduo denoscopy, flexible, transoral; with band ligation of esophageal/gastri c varices Diagnosis Code(s): --- Professional --- I85.00, Esophageal varices without bleeding K76.6, Portal hypertension K31.89, Other diseases of stomach and duodenum CPT copyright 2019 [employer]. All rights reserved. The codes documented in this report are preliminary and upon behavioral health therapist review may be revised to meet current compliance requirements. Wilbert Estrella, 03/23/2022 3:42:51 PM Note Initiated On: 03/23/2022 3:24 PM Number of Addenda: [address] [employer]OVATION 03/23/2022 3:24 PM PHYSICAL INSTRUCTOR Carlie Estrella MD GI PRO CEDURE ORDERABLES [facility] [employer] * (ABNORMAL) GLUCOSE - POINT OF CARE (03/23/2022 2:44 PM PHYSICAL INSTRUCTOR) Only the most recent of8 resultswithin the time period is included. Glucose WB/POC 238(H) 70 - 115 mg/dL 03/23/2022 3:06 PM PHYSICAL INSTRUCTOR [facility] Specimen Type Cap Fingerstick 2022 3:06 PM PHYSICAL INSTRUCTOR [facility] Blood BLOOD SPECIMEN / Unknown 03/23/2022 2:44 PM PHYSICAL INSTRUCTOR 03/23/2022 3:06 PM PHYSICAL INSTRUCTOR Carlie Estrella MD LAB - POINT OF CARE ORDERABLES Performing Organization Address City/[facility]/ZIP Co de Phone Number [address] [address], [place] [phone] * HCG URINE QUALITATIVE - POCT (IP) INTERFACED (03/23/2022 2:34 PM PHYSICAL INSTRUCTOR) Only the most recent of2 resultswithin the time period is included. HCG Qual Urine Negative Negative 03/23/2022 2:41 PM PHYSICAL INSTRUCTOR [facility] Urine URINE / Unknown 03/23/2022 2 :34 PM PHYSICAL INSTRUCTOR 03/23/2022 2:41 PM PHYSICAL INSTRUCTOR Carlie Estrella MD LAB - POINT OF CARE ORDERABLES Performing Organization Address [facility] Co de Phone Number [address] [address], [place] [phone] * HCG URINE QUAL POCT NOTIFICATION (03/23/2022 2:26 PM PHYSICAL INSTRUCTOR) Only the most recent of3 resultswithin the time period is included. Comment Notification Label Only - See Separate Report 03/23/2022 3:32 PM PHYSICAL INSTRUCTOR [facility] Urine URINE / Unknown 03/23/2022 2 :26 PM PHYSICAL INSTRUCTOR 03/23/2022 2:26 PM PHYSICAL INSTRUCTOR Carlie Estrella MD LAB - URINALYSIS ORDERABLES Performing Organization Address City/[facility]/ZIP Co de Phone Number [address] [address], [place] [phone] * PATHOLOGY TISSUE (01/07/2022 1:37 PM CDT) Only the most recent of3 resultswithin the time period is included. Case Report Surgical Pathology Report Case: [id number] Authorizing Provider: Daina Vasquez MD Collected: 01/07/2022 01:37 PM Ordering Location: [facility] Received: 01/07/2022 03:38 PM Pathologist: Suzette Hernandez MD Specimen: Gastric, random gastric bx- R/O H pylori 01/08/2022 2:32 PM [facility] Final Diagnosis Stomach, random, biopsy (A): - Mild reactive changes - No active inflammation or H. pylori organisms (H&E examination) 01/08/2022 2:32 PM [facility] Microscopic Description and Comment Microscopic examination substantiates the final diagnosis. 01/08/2022 2:32 PM [facility] Clinical History The patient is a 36-year-old woman with left upper quadrant abdominal pain who presents for follow-up of esophageal varices and surveillance. Operative procedure/findings: EGD - large esophageal varices, banded; portal hypertensive gastropathy and nonbleeding gastric ulcers, biopsied to rule out H. pylori. 01/08/2022 2:32 PM [facility] Gross Description The requisition and specimen(s) are identified with the patient's name Shruti Velazquez. Received in formalin, specimen A , are 2 pink-patrick tissues, 0.1 x 0.1 x 0.1 cm and 0.4 x 0.2 x 0.1 cm, submitted in toto in cassette A1. DF 01/08/2022 2:32 PM [facility] Disclaimer The performance characteristics of all immunohistochemical and indirect immunofluorescence stains (if any) cited in this report were determined by the Histopathology Laboratory of [facility]. Some of these tests were developed by our own laboratory and have not been cleared or approved by the US Food and Drug Administration. The FDA does not require this test to go through premarket FDA review. These tests are used for clinical purposes. They should not be regarded as investigational or for research. This laboratory is certified under the Clinical Laboratory Improvement Amendments (CLIA) as qualified to perform high complexity clinical laboratory testing. This case has been personally reviewed and interpreted by the attending (teaching) pathologist. 01/08/2022 2:32 PM [facility] Embedded Images 01/08/2022 2:32 PM [facility] Biopsy, NOS GASTRIC CONTENTS SPECIMEN / Unknown 01/07/2022 1:37 PM CDT 01/07/2022 3:38 PM CDT Comment:Pre-op diagnosis: Bleeding esophageal varices, unspecified esophageal varices type [I85.01] Daina Vasquez MD LAB - PATHOLOGY/CY ALLA ORDERABLES [facility] [address] [phone] * EGD (01/07/2022 1:19 PM CDT) Report Endoscopy POC Endoscopy Department Report __ _ Patient Name: Shruti Velazquez Procedure Date: 01/07/2022 1:19 PM Date of : 1985 Classification: Outpatient Gender: Female Ethnicity: or Race: White __ _ Providers: Daina Vasquez MD Referring MD: Malika Campbell (Referring MD) Procedure: Upper GI endoscopy Indications: Surveillance procedure, Abdominal pain in the right upper quadrant, Abdominal pain in the left upper quadrant, Follow-up of esophageal varices Medications: Propofol per Anesthesia Patient Profile: history of variceal banding 08/2020 Description of Procedure: Pre-Anesthesia Assessment: - Prior to the procedure, a History and Physical was performed, and patient medications and allergies were reviewed. The patient's tolerance of previous anesthesia was also reviewed. The risks and benefits of the procedure and the sedation options and risks were discussed with the patient. All questions were answered, and informed consent was obtained. Prior Anticoagulants: The patient has taken no previous anticoagulant or antiplatelet agents. ASA Grade Assessment: III - A patient with severe systemic disease. After reviewing the risks and benefits, the patient was deemed in satisfactory condition to undergo the procedure. - Prior Aspirin/ NSAID therapy: The patient has taken no previous aspirin or NSAID medications. After obtaining informed consent, the endoscope was passed under direct vision. Throughout the procedure, the patient's blood pressure, pulse, and oxygen saturations were monitored continuously. The Endoscope was introduced through the mouth, and advanced to the second part of duodenum. The upper GI endoscopy was accomplished with ease. The patient tolerated the procedure well. Findings: Esophagogastric landmarks were identified: the Z-line was found at 38 cm, the gastroesophageal junction was found at 38 cm and the site of hiatal narrowing was found at 38 cm from the incisors. Large (> 5 mm) varices were found in the lower third of the esophagus with some red lora signs. Three bands were successfully placed with complete eradication, resulting in deflation of varices. There was no bleeding during and at the end of the procedure. Moderate portal hypertensive gastropathy was found in the entire examined stomach with more prominent GAVE picture in antrum. Few non-bleeding superficial gastric ulcers with no stigmata of bleeding were found in the gastric antrum. Biopsies were taken with a cold forceps for histology. The examined duodenum was normal. The cardia and gastric fundus were otherwise normal on retroflexion other than gastropathy. Estimated Blood Loss: Estimated blood loss: none. Complications: No immediate complications. Impression: - Esophagogastric landmarks identified. - Large (> 5 mm) esophageal varices. Completely eradicated. Banded. - Portal hypertensive gastropathy. - Non-bleeding gastric ulcers with no stigmata of bleeding. - Normal examined duodenum. - No specimens collected. Recommendation: - Patient has a contact number available for emergencies. The signs and symptoms of potential delayed complications were discussed with the patient. Return to normal activities tomorrow. Written discharge instructions were provided to the patient. - Resume previous diet. - Continue present medications. - Await pathology results. - Take prescribed proton pump inhibitor or H2 agus (antacid) medications 30 - 60 minutes before meals. - Return to liver clinic as previously scheduled. - Avoidance of NSAIDS. - Repeat upper endoscopy in 1 month for surveillance. Attending Participation: I personally performed the entire procedure. Procedure Code(s): --- Professional --- 12754, Esophagogastroduode noscopy, flexible, transoral; with band ligation of esophageal/gastric varices Diagnosis Code(s): --- Professional --- I85.00, Esophageal varices without bleeding K76.6, Portal hypertension K31.89, Other diseases of stomach and duodenum K25.9, Gastric ulcer, unspecified as acute or chronic, without hemorrhage or perforation R10.11, Right upper quadrant pain R10.12, Left upper quadrant pain CPT copyright 2019 [employer]. All rights reserved. The codes documented in this report are preliminary and upon behavioral health therapist review may be revised to meet current compliance requirements. ___ Daina Vasquez MD 01/07/2022 1:51:04 PM Note Initiated On: 01/07/2022 1:19 PM Number of Addenda: [address] [id number] __ _ Addendum Number: 1 Addendum Date: 01/07/2022 2:05:12 PM given banding, would recommend liquid diet today and soft diet x 1 week. Of note, not on nadolol and heart rate 70-80s at endoscopy. ___ Daina Vasquez MD 01/07/2022 2:05:53 PM [facility] 01/07/2022 1:19 PM CDT Daina Vasquez MD GI PROCEDURE ORDER [place] [facility] * ALPHA FETOPROTEIN BLOOD TUMOR MARKER (01/07/2022 11:08 AM CDT) Only the most recent of3 resultswithin the time period is included. Alpha-Fetoprote in Tumor Marker <2.0 <=8.3 ng/mL 01/07/2022 12:03 PM CDT [facility] Comment: AFP values will vary depending on testing procedure used. Results are not comparable across different methods. AFP values obtained by [facility] using an Miller Alinity Immunoassay. Blood BLOOD SPECIMEN / Unknown Venipuncture / Unknown 01/07/2022 11:08 AM CDT 01/07/2022 11:13 AM CDT Abby Jaquez ASSOCIATE DIRECTOR OF DEVELOPMENT-SURGICAL ELASTIC KNITTER HAND FRAME LAB - CHEMI STRY ORDERABLES [facility] [address] [place] [phone], [facility] [phone] * US ABDOMEN LIMITED (01/07/2022 10:53 AM CDT) Only the most recent of2 resultswithin the time period is included. Anatomical Region Laterality Modality Abdomen Ultrasound 01/07/2022 9:12 AM CDT Impressions 01/07/2022 12:10 PM CDT Impression: 1.Hepatic fibrosis/cirrhosis with resolution of previously noted steatotic component. Early sequela of portal hypertension including borderline splenomegaly. 2.No discrete hepatic observations. Liver Visualization Score A: No or minimal limitations. US-1 Negative. Repeat surveillance US in 6 months. REFERENCE: US LI-RADS categories: US Category: US 1 - Negative: No evidence of hepatocellular carcinoma (HCC). US 2 - Subthreshold: Observation detected that may warrant short-interval US surveillance. Observation<10 mm in diameter, not definitely benign. US 3 - Positive: Observation detected that may warrant multi-phase contrast-enhanced imaging. Observation >/= 10 mm in diameter or new thrombus in vein. Visualization Score: A. No or minimal limitations: Limitations, if any, are unlikely to meaningfully affect sensitivity. B. Moderate limitations: Limitations may obscure small masses. C. Severe limitations: Limitations significantly lower sensitivity for focal liver lesions. Report drafted by Salvador Navarro (resident). > Dictated by Salvador Navarro (Chiropractic Assistant) 01/07/2022 11:13 AM IABIMAEL MD have personally reviewed and interpreted this examination/study. > Interpreting Provider: ABIMAEL WALLACE MD on 01/07/2022 12:10 PM Narrative 01/07/2022 12:10 PM CDT PROCEDURE: US ABDOMEN LIMITED, DATE/TIME OF EXAM: 01/07/2022 8:32 AM, LOCATION [facility] INDICATION: K74.60: Hepatic cirrhosis, unspecified hepatic cirrhosis type, unspecified whether ascites present (CMS/HCC) I85.01: Bleeding esophageal varices, unspecified esophageal varices type (CMS/HCC) ADDITIONAL CLINICAL INFORMATION: Ordering Provider Reason For Exam: cirrhosis COMPARISON: Ultrasound abdomen 03/22/2019, CT abdomen and pelvis 12/19/2019 Findings Liver Visualization Score: No or minimal limitations in liver visualization Liver Morphology: Hepatic echotexture is coarsened. Hepatic echogenicity is within normal limits, previously noted be increased in prior examinations. The surface contour is nodular. Liver Observations: None. Main Portal Vein: Color Doppler evaluation demonstrates patency of the main portal vein. Hepatic Veins: Color Doppler evaluation demonstrates patency of the hepatic veins. Bile Ducts: The common bile duct is nondilated, measuring 2.8 mm. No intrahepatic or extrahepatic biliary dilation. Gallbladder: The gallbladder is absent. . Sonographic Leal's sign is negative. Ascites: No ascites is present. Spleen: The spleen measures 13 cm in length. Pancreas: The visible pancreas is normal in echogenicity. Right Kidney: The right kidney measures 11.5 cm in length. Limited views of the right kidney reveal no evidence of nephrolithiasis or hydronephrosis. No discrete mass identified. Procedure Note Abimael Wallace MD - 01/07/2022 PROCEDURE: US ABDOMEN LIMITED, DATE/TIME OF EXAM: 01/07/2022 8:32 AM, LOCATION [facility] INDICATION: K74.60: Hepatic cirrhosis, unspecified hepatic cirrhosis type,unspecified whether ascites present (CMS/HCC) I85.01: Bleeding esophageal varices, unspecified esophageal varices type (CMS/HCC) ADDITIONAL CLINICAL INFORMATION: Ordering Provider Reason For Exam: cirrhosis COMPARISON: Ultrasound abdomen 03/22/2019, CT abdomen and pelvis 12/19/2019 Findings Liver Visualization Score: No or minimal limitations in liver visualization Liver Morphology: Hepatic echotexture is coarsened. Hepatic echogenicity is within normal limits, previously noted be increased in prior examinations. The surface contour is nodular. Liver Observations: None. Main Portal Vein: Color Doppler evaluation demonstrates patency of the main portal vein. Hepatic Veins: Color Doppler evaluation demonstrates patency of the hepatic veins. Bile Ducts: The common bile duct is nondilated, measuring 2.8 mm. No intrahepatic or extrahepatic biliary dilation. Gallbladder: The gallbladder is absent. . Sonographic Leal's sign is negative. Ascites: No ascites is present. Spleen: The spleen measures 13 cm in length. Pancreas: The visible pancreas is normal in echogenicity. Right Kidney: The right kidney measures 11.5 cm in length. Limited views of the right kidney reveal no evidence of nephrolithiasis or hydronephrosis. No discrete mass identified. Impression: 1.Hepatic fibrosis/cirrhosis with resolution of previously notedsteatotic component. Early sequela of portal hypertension including borderline splenomegaly. 2.No discrete hepatic observations. Liver Visualization Score A: No or minimal limitations. US-1 Negative. Repeat surveillance US in 6 months. REFERENCE: US LI-RADS categories: US Category: US 1 - Negative: No evidence of hepatocellular carcinoma (HCC). US 2 - Subthreshold: Observation detected that may warrant short-interval US surveillance. Observation<10 mm in diameter, not definitely benign. US 3 - Positive: Observation detected that may warrant multi-phase contrast-enhanced imaging. Observation >/= 10 mm in diameter or new thrombus in vein. Visualization Score: A. No or minimal limitations: Limitations, if any, are unlikely to meaningfully affect sensitivity. B. Moderate limitations: Limitations may obscure small masses. C. Severe limitations: Limitations significantly lower sensitivityfor focal liver lesions. Report drafted by Salvador Navarro (resident). > Dictated by Salvador Navarro (Chiropractic Assistant) 1:13 AM I, ABIMAEL WALLACE MD have personally reviewed and interpreted this examination/study. > Interpreting Provider: ABIMAEL WALLACE MD on 01/07/2022 12:10 PM Abby Jaquez ASSOCIATE DIRECTOR OF DEVELOPMENT-SURGICAL ELASTIC KNITTER HAND FRAME US ORDERABL ES * LAB RESULTS ORDER (09/15/2020 8:59 PM CDT) Narrative 09/15/2020 8:59 PM CDT Ordered by an unspecified provider. Scanned Document LAB - THERAPEUTIC DR BURNHAM MONITORING ORDERABLES * CARDIAC RHYTHM STRIP ORDER (09/15/2020 8:59 PM CDT) Narrative 09/15/2020 8:59 PM CDT Ordered by an unspecified provider. Scanned Document CARDIAC SERVICES ORD ERABLES * (ABNORMAL) HEMOGLOBIN A1C (09/14/2020 3:05 AM CDT) Hemoglobin A1c 7.0(H) 4.2 - 5.6 % 09/14/2020 4:08 AM CDT [facility] Estimated Average Glucose 154 mg/dL 09/14/2020 4:08 AM CDT [facility] Blood BLOOD SPECIMEN / Unknown Lab Venipuncture / Unknown 09/14/2020 3:05 AM CDT 09/14/2020 3:37 AM CDT Narrative -[facility] - 09/14/2020 4:08 AM CDT The following cutoff levels are recommended by [place] [employer]. A1c > 6.5% : considered [...] Pink MD LAB - CHEMISTRY ORD ERABLES [facility] Organization Address City/State/ZIP Co de Phone Number -[facility] [address] [place] [address] * (ABNORMAL) RENAL FUNCTION PANEL (09/14/2020 3:05 AM CDT) Glucose 95 70 - 105 mg/dL 09/14/2020 4:04 AM CDT -[facility] Sodium 139 136 - 145 mmol/L 09/14/2020 4:04 AM CDT -[facility] Potassium 3.6 3.5 - 5.1 mmol/L 09/14/2020 4:04 AM CDT -[facility] Chloride 108(H) 98 - 107 mmol/L 09/14/2020 4:04 AM CDT -[facility] CO2 22(L) 23 - 31 mmol/L 09/14/2020 4:04 AM CDT -[facility] Calcium 7.5(L) 8.4 - 10.4 mg/dL 09/14/2020 4:04 AM CDT -[facility] Anion Gap 9 8 - 18 mmol/L 09/14/2020 4:04 AM CDT -[facility] BUN 24(H) 7 - 18.7 mg/dL 09/14/2020 4:04 AM CDT -[facility] Creatinine 0.76 0.57 - 1.11 mg/dL 09/14/2020 4:04 AM CDT -[facility] Albumin 2.9(L) 3.5 - 5.2 gm/dL 09/14/2020 4:04 AM CDT -[facility] Phosphorus 3.2 2.3 - 4.7 mg/dL 09/14/2020 4:04 AM CDT -[facility] eGFR by MDRD >60 >60 mL/min/1.7 3m2 09/14/2020 4:04 AM CDT [facility] eGFR by MDRD >60 >60 mL/min/1.7 3m2 09/14/2020 4:04 AM CDT [facility] Blood BLOOD SPECIMEN / Unknown Lab Venipuncture / Unknown 09/14/2020 3:05 AM CDT 09/14/2020 3:37 AM CDT Angeline Atkins MD LAB - CHEMISTRY [place] [facility] [address] [place] [id number] * MAGNESIUM BLOOD (09/14/2020 3:05 AM CDT) Only the most recent of2 resultswithin the time period is included. Magnesium 2.2 1.6 - 2.6 mg/dL 09/14/2020 4:04 AM CDT [facility] Blood BLOOD SPECIMEN / Unknown Lab Venipuncture / Unknown 09/14/2020 3:05 AM CDT 09/14/2020 3:37 AM CDT Angeline Atkins MD LAB - CHEMISTRY [place] Performing Organization Address City/[facility]/ZIP Co de Phone Number [facility] [address] [place] [phone] * (ABNORMAL) HGB HCT PANEL (09/13/2020 10:38 PM CDT) Only the most recent of3 resultswithin the time period is included. Hemoglobin 8.0(L) 12.0 - 15.6 gm/dL 09/13/2020 10:59 PM CDT -[facility] Hematocrit 24.9(L) 35.9 - 45.5 % 09/13/2020 10:59 PM CDT [facility] Blood BLOOD SPECIMEN / Unknown Lab Venipuncture / Unknown 09/13/2020 10:38 PM CDT 09/13/2020 10:57 PM CDT Cielo Pink MD LAB - HEMATOLOGY OR DERABLES [facility] [address] [place] [id number] * TRANSFUSE RED BLOOD CELL LEUKOREDUCED UNIT(S) (09/13/2020 9:48 PM CDT) Angeline Atkins MD NURSING - BLOOD PROD TRANSFUSION * TRANSFUSE RED BLOOD CELL LEUKOREDUCED UNIT(S) (09/13/2020 8:08 PM CDT) Angeline Atkins MD NURSING - BLOOD PROD TRANSFUSION * PREPARE (CROSSMATCH) RBC UNIT(S), 2 Units (09/13/2020 8:00 PM CDT) Only the most recent of2 resultswithin the time period is included. Unit Description AS1 LR PRBC [facility] BLOOD BANK Unit ABO O [facility] BLO OD BANK Unit Rh POS [facility] BLO OD BANK Product Number R02 [facility] L BLOOD BANK Unit Donor # [id number] [facility] BLOOD BANK Unit Status transfused [facility] BLOOD BANK Product Code [id number] [facility] BLOOD BANK Blood Type Barcode 5100 [facility] BLOOD BANK Expiration Date [facility] BLOOD BANK Unit Description AS1 LR PRBC [facility] BLOOD BANK Unit ABO O [facility] BLO OD BANK Unit Rh POS [facility] BLO OD BANK Product Number R02 [facility] L BLOOD BANK Unit Donor # [id number] [facility] BLOOD BANK Unit Status transfused [facility] BLOOD BANK Product Code [id number] [facility] BLOOD BANK Blood Type Barcode 5100 [facility] BLOOD BANK Expiration Date [facility] BLOOD BANK Blood Bank BLOOD SPECIMEN / Unknown 09/13/2020 5:14 AM CDT Cielo Pink MD LAB - BLOOD BANK OR DERABLES [facility] [address] [place] [id number] [phone] * EGD (09/13/2020 4:35 PM CDT) Report Endoscopy POC _ Patient Name: Shruti Velazquez Procedure Date: 09/13/2020 4:35 PM Date of : 1985 Admit Type: Inpatient Age: 34 Gender: Female Attending MD: Corbin De La Rosa MD _ Procedure: Upper GI endoscopy Indications: Acute post hemorrhagic anemia, Hematemesis, Melena Providers: Corbin De La Rosa MD (Doctor) Medicines: Monitored Anesthesia Care Complications: No immediate complications. _ Estimated Blood Loss: Estimated blood loss: none. Procedure: Pre-Anesthesia Assessment: - Prior to the procedure, a History and Physical was performed, and patient medications and allergies were reviewed. The patient's tolerance of previous anesthesia was also reviewed. The risks and benefits of the procedure and the sedation options and risks were discussed with the patient. All questions were answered, and informed consent was obtained. Prior Anticoagulants: The patient has taken no previous anticoagulant or antiplatelet agents. ASA Grade Assessment: III - A patient with severe systemic disease. After reviewing the risks and benefits, the patient was deemed in satisfactory condition to undergo the procedure. After obtaining informed consent, the endoscope was passed under direct vision. Throughout the procedure, the patient's blood pressure, pulse, and oxygen saturations were monitored continuously. The was introduced through the mouth, and advanced to the second part of duodenum. The upper GI endoscopy was accomplished without difficulty. The patient tolerated the procedure well. Findings: Three columns of grade III varices with stigmata of recent bleeding were found in the lower third of the esophagus,. They were medium in size. Red lora signs were present. Four bands were successfully placed with incomplete eradication, resulting in deflation of varices. There was no bleeding during the procedure. Moderate portal hypertensive gastropathy was found in the entire examined stomach. No gastric varices were seen The examined duodenum was normal. _ Impression: - Grade III esophageal varices with stigmata of recent bleeding. Completely eradicated. Banded. - Portal hypertensive gastropathy. - Normal examined duodenum. - No specimens collected. Recommendation: - Patient has a contact number available for emergencies. The signs and symptoms of potential delayed complications were discussed with the patient. Return to normal activities tomorrow. Written discharge instructions were provided to the patient. - Resume previous diet. - Continue present medications. Procedure Code(s): --- Professional --- 89736, Esophagogastroduod enoscopy, flexible, transoral; with band ligation of esophageal/gastric varices --- Technical --- 22119, Esophagogastroduod enoscopy, flexible, transoral; with band ligation of esophageal/gastric varices Diagnosis Code(s): --- Professional --- I85.01, Esophageal varices with bleeding K76.6, Portal hypertension K31.89, Other diseases of stomach and duodenum D62, Acute posthemorrhagic anemia K92.0, Hematemesis K92.1, Melena (includes Hematochezia) --- Technical --- I85.01, Esophageal varices with bleeding K76.6, Portal hypertension K31.89, Other diseases of stomach and duodenum D62, Acute posthemorrhagic anemia K92.0, Hematemesis K92.1, Melena (includes Hematochezia) CPT copyright 2019 [employer]. All rights reserved. The codes documented in this report are preliminary and upon behavioral health therapist review may be revised to meet current compliance requirements. ___ Corbin De La Rosa MD 09/13/2020 5:03:17 PM This report has been signed electronically. Number of Addenda: 0 Note Initiated On: 09/13/2020 4:35 PM Procedure Date: 09/13/2020 4:35:56 PM [facility] 09/13/2020 4:35 PM CDT Corbin De La Rosa MD GI PROCEDURE ORDERAB LES [facility] * TRANSFUSE RED BLOOD CELL LEUKOREDUCED UNIT(S) (09/13/2020 2:32 PM CDT) Cielo Pink MD NURSING - BLOOD PRO D TRANSFUSION * TRANSFUSE RED BLOOD CELL LEUKOREDUCED UNIT(S) (09/13/2020 12:54 PM CDT) Cielo Pink MD NURSING - BLOOD PRO D TRANSFUSION * (ABNORMAL) BASIC METABOLIC PANEL (CALCIUM TOTAL) (09/13/2020 9:55 AM CDT) Only the most recent of3 resultswithin the time period is included. Glucose 158(H) 70 - 105 mg/dL 09/13/2020 10:28 AM CDT -[facility] Sodium 138 136 - 145 mmol/L 09/13/2020 10:28 AM CDT -[facility] Potassium 3.9 3.5 - 5.1 mmol/L 09/13/2020 10:28 AM CDT -[facility] Chloride 108(H) 98 - 107 mmol/L 09/13/2020 10:28 AM CDT -[facility] CO2 22(L) 23 - 31 mmol/L 09/13/2020 10:28 AM CDT -[facility] Calcium 7.6(L) 8.4 - 10.4 mg/dL 09/13/2020 10:28 AM CDT -[facility] Anion Gap 8 8 - 18 mmol/L 09/13/2020 10:28 AM CDT [facility] BUN 32(H) 7 - 18.7 mg/dL 09/13/2020 10:28 AM CDT [facility] Creatinine 0.85 0.57 - 1.11 mg/dL 09/13/2020 10:28 AM CDT -[facility] eGFR by MDRD >60 >60 mL/min/1.7 3m2 09/13/2020 10:28 AM CDT [facility] eGFR by MDRD >60 >60 mL/min/1.7 3m2 09/13/2020 10:28 AM CDT [facility] Blood BLOOD SPECIMEN / Unknown Lab Venipuncture / Unknown 09/13/2020 9:55 AM CDT 09/13/2020 10:04 AM CDT Cielo Pink MD LAB - CHEMISTRY ORD ERABLES [facility] [address] [place] [address] * FOLATE (09/13/2020 9:55 AM CDT) Pathologist [facility] Folate 12.4 7.0 - 31.4 ng/mL 09/13/2020 4:50 PM CDT [facility] Blood BLOOD SPECIMEN / Unknown Lab Venipuncture / Unknown 09/13/2020 9:55 AM CDT 09/13/2020 10:04 AM CDT Cielo Pink MD LAB - CHEMISTRY ORD ERABLES [facility] [address] [place] [address] * VITAMIN B12 (09/13/2020 9:55 AM CDT) [facility] Vitamin B12 322 213 - 816 pg/mL 09/13/2020 4:50 PM CDT [facility] Blood BLOOD SPECIMEN / Unknown Lab Venipuncture / Unknown 09/13/2020 9:55 AM CDT 09/13/2020 10:04 AM CDT Cielo Pink MD LAB - CHEMISTRY ORD ERABLES Performing Organization Address City/[facility] Co de Phone Number [facility] [address] [place] [address] * (ABNORMAL) IRON + TRANSFERRIN PANEL (09/13/2020 9:55 AM CDT) [facility] Iron 11(L) 50 - 170 ug/dL 09/13/2020 4:13 PM CDT [facility] Transferrin 313 180 - 382 mg/dL 09/13/2020 4:13 PM CDT [facility] TIBC Calculated 391 240 - 450 ug/dL 09/13/2020 4:13 PM CDT [facility] Iron Saturation % 3(L) 20 - 50 % 09/13/2020 4:13 PM CDT [facility] Blood BLOOD SPECIMEN / Unknown Lab Venipuncture / Unknown 09/13/2020 9:55 AM CDT 09/13/2020 10:04 AM CDT Cielo Pink MD LAB - CHEMISTRY ORD ERABLES [facility] [address] [place] [id number] * FERRITIN (09/13/2020 9:55 AM CDT) Only the most recent of2 resultswithin the time period is included. [facility] Ferritin 12 5 - 204 ng/mL 09/13/2020 4:50 PM CDT [facility] Blood BLOOD SPECIMEN / Unknown Lab Venipuncture / Unknown 09/13/2020 9:55 AM CDT 09/13/2020 10:04 AM CDT Cielo Pink MD LAB - CHEMISTRY ORD ERABLES [facility] [address] [place] [address] * BLOOD TYPE VERIFICATION (09/13/2020 6:03 AM CDT) ABO Rh O POS 09/13/2020 9:0 6 AM CDT [facility] Blood Bank BLOOD SPECIMEN / Unknown Lab Venipuncture / Unknown 09/13/2020 6:03 AM CDT 09/13/2020 6:11 AM CDT John York MD LAB - BLOOD BANK ORDERABLES Performing Organization Address [facility] Co de Phone Number [facility] [address] [place] [address] * E ANTIGEN TYPING (SOFTBANK BB) (09/13/2020 5:08 AM CDT) E Antigen NEG 09/13/2020 11:04 AM CDT [facility] Blood Bank BLOOD SPECIMEN / Unknown Lab Venipuncture / Unknown 09/13/2020 5:08 AM CDT 09/13/2020 5:14 AM CDT Cielo Pink MD LAB - BLOOD BANK OR DERABLES Performing Organization Address City/[facility]/ZIP Co de Phone Number [facility] [address] [place] [address] * TYPE + SCREEN PANEL (09/13/2020 5:08 AM CDT) ABO Rh O POS 09/13/2020 9:06 AM CDT [facility] Comment:No history; collect retype. Antibody Screen POS 9:06 AM CDT [facility] Blood Bank BLOOD SPECIMEN / Unknown Lab Venipuncture / Unknown 09/13/2020 5:08 AM CDT 09/13/2020 5:14 AM CDT Cielo Pink MD LAB - BLOOD BANK OR DERABLES [facility] [address] [place] [address] * RUIZ DIRECT (09/13/2020 5:08 AM CDT) Direct Ruiz (NEGIN) NEG 09/13/2020 10:54 AM CDT [facility] Blood Bank BLOOD SPECIMEN / Unknown Lab Venipuncture / Unknown 09/13/2020 5:08 AM CDT 09/13/2020 5:14 AM CDT Cielo Pink MD LAB - BLOOD BANK OR DERABLES Performing Organization Address [facility] Co de Phone Number [facility] [address] [place] [address] * ANTIBODY IDENTIFICATION (09/13/2020 5:08 AM CDT) Antibody 1 POS, Anti-E 09/13/2020 11:15 AM CDT [facility] Blood Bank BLOOD SPECIMEN / Unknown Lab Venipuncture / Unknown 09/13/2020 5:08 AM CDT 09/13/2020 5:14 AM CDT Cielo Pink MD LAB - BLOOD BANK OR DERABLES Performing Organization Address [facility] Co de Phone Number [facility] [address] [place] [address] * (ABNORMAL) PT-INR (09/13/2020 5:08 AM CDT) PT 20.3(H) 12.1 - 14.8 sec 09/13/2020 5:31 AM CDT -[facility] INR 1.8(H) 0.9 - 1.1 09/13/2020 5:31 AM CDT [facility] Blood BLOOD SPECIMEN / Unknown Lab Venipuncture / Unknown 09/13/2020 5:08 AM CDT 09/13/2020 5:14 AM CDT Narrative -[facility] - 09/13/2020 5:31 AM CDT Conventional Warfarin Anticoagulant Therapy: INR Reference Range: 2.0-3.0 Intensive Warfarin Anticoagulant Therapy: INR Reference Range: 2.5-3.5 Cielo Pink MD LAB - COAGULATION O RDERABLES Performing Organization Address City/[facility]/ZIP Co de Phone Number [facility] [address] [place] [address] * PHOSPHORUS BLOOD (09/13/2020 5:08 AM CDT) [facility] Signature Phosphorus 3.3 2.3 - 4.7 mg/dL 09/13/2020 5:39 AM CDT [facility] Blood BLOOD SPECIMEN / Unknown Lab Venipuncture / Unknown 09/13/2020 5:08 AM CDT 09/13/2020 5:14 AM CDT Cielo Pink MD LAB - CHEMISTRY ORD ERABLES Performing Organization Address City/[facility] Co de Phone Number [facility] [address] [place] [address] * CT ABDOMEN PELVIS W CONTRAST (12/19/2019 2:28 PM CDT) Anatomical Region Laterality Modality Abdomen, Pelvis Computed Tomogra phy 12/19/2019 2:31 PM CDT Narrative 12/19/2019 3:15 PM CDT Procedure Information DATE: 12/19/2019 2:28 PM EXAMINATION: Computed tomography (CT) of the abdomen and pelvis with contrast TECHNIQUE: CT of the abdomen and pelvis was performed following the uneventful administration of 150 mL of Isovue 370 intravenous contrast according to standard protocol. Clinical Information HISTORY: R10.31: Abdominal pain, right lower quadrant COMPARISON: CT abdomen pelvis 01/21/2015 Findings Lower Chest: The lung bases are clear. Liver: The liver has a heterogenous appearance with a slightly nodular contour which can be seen in cirrhosis or chronic hepatic parenchymal disease. Gallbladder and Bile Ducts: The gallbladder is surgically absent. No biliary ductal dilatation. Kidneys: A subcentimeter hypoenhancing lesion in the right kidney is too small to characterize but likely presents a benign cyst. The kidneys otherwise enhance symmetrically. No evidence of obstructive uropathy. Adrenals: Normal. Spleen: The spleen is enlarged measuring 14.4 cm in the craniocaudal axis. Pancreas: Normal. Gastrointestinal: There is a small hiatal hernia. The stomach and small bowel are otherwise normal. There is mucosal thickening of the cecum. Appendix: The appendix is surgically absent. Mesentery/Peritoneum: There is mild mesenteric edema. Retroperitoneum: Normal. Pelvic Structures: A 4.4 cm right ovarian cyst is present. The bladder is distended with fluid and appears normal. The uterus is normal. Nodes: Scattered small nodes but no adenopathy. Vasculature: Scattered atherosclerotic vasculature changes. Bones: Bone windows demonstrate no suspicious lytic or blastic lesions. The visible osseous structures are intact. Fluid: Small volume ascites. Soft tissues: Normal. Other findings: None. Impression 1.The liver has a cirrhotic morphology. There are sequela of portal hypertension including small volume ascites and splenomegaly. 2.Thickened appearance of the cecal wall could relate to hepatic colopathy, infectious/inflammatory process, or infiltrative process. Findings can be correlated with direct visualization, if deemed clinically appropriate. 3.A 4.4 cm right ovarian cyst is new. This can be further evaluated with nonemergent pelvic ultrasound. Report dictated by Calos Oakley MD (radiology administrator). I, Dr. KAYODE DOOLEY have personally reviewed and interpreted this examination/study. This report was electronically signed by KAYODE DOOLEY on 12/19/2019 3:15 PM . Procedure Note Kayode Dooley MD - 12/19/2019 Procedure Information DATE: 12/19/2019 2:28 PM EXAMINATION: Computed tomography (CT) of the abdomen and pelvis with contrast TECHNIQUE: CT of the abdomen and pelvis was performed following the uneventful administration of 150 mL of Isovue 370 intravenous contrast according to standard protocol. Clinical Information HISTORY: R10.31: Abdominal pain, right lower quadrant COMPARISON: CT abdomen pelvis 01/21/2015 Findings Lower Chest: The lung bases are clear. Liver: The liver has a heterogenous appearance with a slightly nodular contour which can be seen in cirrhosis or chronic hepatic parenchymal disease. Gallbladder and Bile Ducts: The gallbladder is surgically absent. No biliary ductal dilatation. Kidneys: A subcentimeter hypoenhancing lesion in the right kidney is too small to characterize but likely presents a benign cyst. The kidneys otherwise enhance symmetrically. No evidence of obstructive uropathy. Adrenals: Normal. Spleen: The spleen is enlarged measuring 14.4 cm in the craniocaudal axis. Pancreas: Normal. Gastrointestinal: There is a small hiatal hernia. The stomach and small bowel areotherwise normal. There is mucosal thickening of the cecum. Appendix: The appendix is surgically absent. Mesentery/Peritoneum: There is mild mesenteric edema. Retroperitoneum: Normal. Pelvic Structures: A 4.4 cm right ovarian cyst is present. The bladder is distended with fluid and appears normal. The uterus is normal. Nodes: Scattered small nodes but no adenopathy. Vasculature: Scattered atherosclerotic vasculature changes. Bones: Bone windows demonstrate no suspicious lytic or blastic lesions. The visible osseous structures are intact. Fluid: Small volume ascites. Soft tissues: Normal. Other findings: None. Impression 1.The liver has a cirrhotic morphology. There are sequela of portal hypertension including small volume ascites and splenomegaly. 2.Thickened appearance of the cecal wall could relate to hepatic colopathy, infectious/inflammatory process, or infiltrative process. Findings can be correlated with direct visualization, if deemedclinically appropriate. 3.A 4.4 cm right ovarian cyst is new. This can be further evaluated with nonemergent pelvic ultrasound. Report dictated by Calos Oakley MD (radiology administrator). I, Dr. KAYODE DOOLEY have personally reviewed and interpreted this examination/study. This report was electronically signed by KAYODE DOOLEY on 12/19/2019 3:15 PM . Andie Martinez MD CT ORDERABLES * LIPASE BLOOD (12/19/2019 12:58 PM CDT) Only the most recent of3 resultswithin the time period is included. Lipase 11 8 - 78 Units/L 12/19/2019 1:53 PM CDT [facility] Blood BLOOD SPECIMEN / Unknown Venipuncture / Unknown 12/19/2019 12:58 PM CDT 12/19/2019 1:26 PM CDT Andie Martinez MD LAB - CHEMISTRY ALE[place]ANDAR [place]ILLA Performing Organization Address [facility]/ZIP Co de Phone Number [address] [address], [place] [phone] * (ABNORMAL) AMMONIA (12/19/2019 12:58 PM CDT) Pathologist [facility] Ammonia 67(H) 11 - 64 umol/L 12/19/2019 1:49 PM CDT [facility] Blood BLOOD SPECIMEN / Unknown Venipuncture / Unknown 12/19/2019 12:58 PM CDT 12/19/2019 1:26 PM CDT Andie Martinez MD LAB - CHEMISTRY A[place]AR [place]A Performing Organization Address [facility] Co de Phone Number [address] [address], [place] [phone] * ALCOHOL ETHYL BLOOD (12/19/2019 12:58 PM CDT) Pathologist [facility] Interpretation Ethanol None Detected None Detected mg/dL 12/19/2019 1:53 PM CDT [facility] Comment:Ethanol levels less than 10 mg/dL are resulted as None detected . Blood BLOOD SPECIMEN / Unknown Venipuncture / Unknown 12/19/2019 12:58 PM CDT 12/19/2019 1:26 PM CDT Andie Martinez MD LAB - CHEMISTRY [place] Performing Organization Address [facility]/ZIP Co de Phone Number [address] [address], [place] [phone] * (ABNORMAL) URINALYSIS W/MICROSCOPIC NO CULTURE (12/19/2019 12:14 PM CDT) Only the most recent of3 resultswithin the time period is included. Color UA Lindsey(A) Straw, Yellow, Colorless 12/19/2019 12:48 PM [facility] Clarity UA Cloudy(A) Clear, Slt Cloudy 12/19/2019 12:48 PM [facility] Specific Leander UA 1.026 1.005 - 1.030 12/19/2019 12:48 PM [facility] pH UA 5.0 5.0 - 8.0 pH 12/19/2019 12:48 PM [facility] Protein UA 2+(A) Negative mg/dL 12/19/2019 12:48 PM [facility] Glucose UA 1+(A) Negative mg/dL 12/19/2019 12:48 PM [facility] Ketone UA Negative Negative mg/dL 12/19/2019 12:48 PM [facility] Bilirubin UA Negative Negative mg/dL 12/19/2019 12:48 PM [facility] Blood UA 1+(A) Negative 12/19/2019 12:48 PM [facility] Nitrite UA Negative Negative 12/19/2019 12:48 PM [facility] Leukocyte Esterase Trace(A) Negative 12/19/2019 12:48 PM [facility] Urobilinogen UA 4.0(A) Negative mg/dL 12/19/2019 12:48 PM [facility] RBC UA 6-10(A) None Seen, 0-2, 3-5 /HPF 12/19/2019 12:48 PM [facility] WBC UA 0-5 None Seen, 0-5 /HPF 12/19/2019 12:48 PM [facility] Bacteria UA 3+(A) None, Trace /HPF 12/19/2019 12:48 PM [facility] Squamous Epithelial Cells UA >20(A) None Seen, 0-2 /HPF 12/19/2019 12:48 PM [facility] Renal Epithelial Cells UA 0-2 None Seen, 0-2 /HPF 12/19/2019 12:48 PM [facility] Mucus UA 1+ None, 1+ /LPF 12/19/2019 12:48 PM [facility] Urine URINE SPECIMEN OBTAINED BY CLEAN CATCH PROCEDURE / Unknown Collection / Unknown 12/19/2019 12:14 PM CDT 12/19/2019 12:22 PM CDT Narrative [facility] - 12/19/2019 12:48 PM CDT Andie Martinez MD LAB - URINALYSIS ORD ERABLES [facility] [address] [place] [id number], [facility] [phone] * HCG URINE QUALITATIVE (12/19/2019 12:14 PM CDT) Test Urine Negative Negative 12/19/2019 12:40 PM CDT [facility] Urine URINE / Unknown Collection / Unknown 12/19/2019 12:14 PM CDT 12/19/2019 12:22 PM CDT Star Bocanegra MD LAB - URINALYSIS ORD ERABLES Performing Organization Address City/[facility]/ZIP Co de Phone Number [address] [address], [facility] [phone] * SMOOTH MUSCLE ANTIBODY W REFLEX TITER (12/12/2019 9:51 AM CDT) F-Actin Antibody IgG 19 0 - 19 Units 12/14/2019 9:32 PM CDT [employer] ([facility]) Comment: If F-Actin (Smooth Muscle) Antibody, IgG is negative, the Smooth Muscle Antibody titer by IFA is not performed. REFERENCE INTERVAL: F-Actin (Smooth Muscle) Antibody, IgG by HALI 19 Units or less ....... Negative 20 - 30 Units .......... Weak Positive-Suggest repeat testing in two to three weeks with fresh specimen. 31 Units or greater..... Positive-Suggestive of autoimmune hepatitis type 1 or chronic active hepatitis. F-actin IgG antibodies have been shown to have increased sensitivity for autoimmune hepatitis (AIH) but lower specificity than smooth muscle antibodies (SMA). F-actin IgG antibodies can also be seen in SMA-negative disease controls (non-AIH), especially in patients with primary biliary cirrhosis and chronic hepatitis C infections. Some patients with AIH may be SMA-positive but negative for F-actin IgG. Consider testing for SMA by IFA if suspicion for AIH is strong. Performed By: [employer] [address] [place] [address] Mink Farmer: Cielo Read MD Blood BLOOD SPECIMEN / Unknown Lab Venipuncture / Unknown 12/12/2019 9:51 AM CDT 12/12/2019 11:02 AM CDT Abby Jaquez ASSOCIATE DIRECTOR OF DEVELOPMENT-SURGICAL ELASTIC KNITTER HAND FRAME LAB - SEROL OGY ORDERABLES Performing Organization Address [facility]/ZIP Co de Phone Number [facility]) [address] [place] [address] * MITOCHONDRIAL ANTIBODY SCREEN (12/12/2019 9:51 AM CDT) Pathologist [facility] Mitochondrial M2 Antibody 4.0 0.0 - 24.9 Units 12/14/2019 9:32 PM CDT [facility] ([facility]) Comment: REFERENCE INTERVAL: Mitochondrial (M2) Antibody, IgG 20.0 Units or less ......... Negative 20.1 - 24.9 Units........... Equivocal 25.0 Units or greater....... Positive Anti-mitochondrial antibodies (AMA) are thought to be present in 90-95% of patients with primary biliary cholangitis (PBC). However, the frequency of detected antibodies may be cohort or assay dependent, as lower sensitivities have been reported. Not all PBC patients are positive for AMA; some patients may be positive for SP100 and/or GP210 antibodies. A negative result does not rule out PBC. Performed By: [employer] [address] [place] [address] Mink Farmer: Cielo Read MD Blood BLOOD SPECIMEN / Unknown Lab Venipuncture / Unknown 12/12/2019 9:51 AM CDT 12/12/2019 11:02 AM CDT Tamir Becerra MD LAB - CHEMISTRY [place]AR [place]ILLA Performing Organization Address City/[facility]/ZIP Co de Phone Number [facility] [place] [facility]) [address] [place] [address] * KEVIN BLOOD SCREEN W/REFLEX TITER (12/12/2019 9:51 AM CDT) KEVIN IgG None Detected None Detected 12/14/2019 11:34 PM CDT [facility] ([facility]) Comment: If suspicion of connective tissue disease is strong and KEVIN EIA is negative, consider testing for KEVIN by IFA ([id number]). INTERPRETIVE INFORMATION: Anti-Nuclear Antibodies (KEVIN), IgG by HALI Antinuclear Antibodies (KEVIN), IgG by HALI: KEVIN specimens are screened using enzyme-linked immunosorbent assay (HALI) methodology. All HALI results reported as Detected are further tested by indirect fluorescent assay (IFA) using HEp-2 substrate with an IgG-specific conjugate. The KEVIN HALI screen is designed to detect antibodies against dsDNA, histones, SS-A (Ro), SS-B (La), Do, Do/CHART CLERK, Scl-70, Shyanne-1, centromeric proteins, other antigens extracted from the HEp-2 cell nucleus. KEVIN HALI assays have been reported to have lower sensitivities than KEVIN IFA for systemic autoimmune rheumatic diseases (SARD). Negative results do not necessarily rule out SARD. Performed By: [email or web address] [address] [place] [address] Mink Farmer: Cielo Read MD Blood BLOOD SPECIMEN / Unknown Lab Venipuncture / Unknown 12/12/2019 9:51 AM CDT 12/12/2019 11:02 AM CDT Abby Jaquez ASSOCIATE DIRECTOR OF DEVELOPMENT-SURGICAL ELASTIC KNITTER HAND FRAME LAB - CHEMI STRY ORDERABLES [facility] [place] [facility]) [address] [place] [address], [facility] * MICROSOMAL ANTIBODY LIVER/KIDNEY (12/12/2019 9:51 AM CDT) Liver/Kidney Microsomal Antibody IgG <1:20 <1:20 12/15/2019 4:35 PM CDT [facility] [place] ([facility]) Comment: INTERPRETIVE INFORMATION: Frxkz-Horawr-Hvkwjmtln Abs, IgG Liver-Kidney Microsome IgG antibody (anti-LKM), as detected by indirect immunofluorescent antibody (IFA) techniques, may be observed in patients with autoimmune hepatitis type 2 (AIH-2), AIH-2 associated with autoimmune vvtgqhklyofrbyvanv-teokmiikifk-dzbmrmdcpv dystrophy (APECED), viral hepatitis C or D, and some forms of drug-induced hepatitis. This IFA does not differentiate among the four types of LKM antibodies (LKM-1, LKM-2, LKM-3, and a fourth type that recognizes CY and CY antigens). Of these, anti-LKM-1 (cytochrome [id number]) IgG antibodies are considered specific for AIH-2. Test developed and characteristics determined by [email or web address]. See Compliance Statement D: [email or web address] Performed By: [place] [address] Mink Farmer: Cielo Read MD Blood BLOOD SPECIMEN / Unknown Lab Venipuncture / Unknown 12/12/2019 9:51 AM CDT 12/12/2019 11:02 AM CDT Abby Jaquez ASSOCIATE DIRECTOR OF DEVELOPMENT-SURGICAL ELASTIC KNITTER HAND FRAME LAB - CHEMI STRY ORDERABLES Performing Organization Address [facility]/ZIP Co de Phone Number [facility]) [address] [place] [address] * TRANSFERRIN (12/12/2019 9:51 AM CDT) Transferrin 222 174 - 382 mg/dL 12/12/2019 1:19 PM CDT [facility] Transferrin Saturation % 24 16 - 50 % 12/12/2019 1:19 PM CDT [facility] Blood BLOOD SPECIMEN / Unknown Lab Venipuncture / Unknown 12/12/2019 9:51 AM CDT 12/12/2019 12:46 PM CDT Tamir Becerra MD LAB - CHEMISTRY [place] [id number] [place] [address], [facility] [phone] * CERULOPLASMIN (12/12/2019 9:51 AM CDT) Ceruloplasmin 23 20 - 60 mg/dL 12/12/2019 1:18 PM CDT [facility] Blood BLOOD SPECIMEN / Unknown Lab Venipuncture / Unknown 12/12/2019 9:51 AM CDT 12/12/2019 12:46 PM CDT Abby Jaquez ASSOCIATE DIRECTOR OF DEVELOPMENT-SURGICAL ELASTIC KNITTER HAND FRAME LAB - CHEMI STRY ORDERABLES Performing Organization Address [facility]/ZIP Co de Phone Number [address] [address] [address], [facility] [phone] * [id number] BLOOD (12/12/2019 9:51 AM CDT) Pathologist [facility] Bcfez-0-Nvafsz ypsin 182 90 - 200 mg/dL 12/12/2019 11:32 AM CDT [facility] Blood BLOOD SPECIMEN / Unknown Lab Venipuncture / Unknown 12/12/2019 9:51 AM CDT 12/12/2019 11:02 AM CDT Abby Jaquez ASSOCIATE DIRECTOR OF DEVELOPMENT-SURGICAL ELASTIC KNITTER HAND FRAME LAB - CHEMI STRY ORDERABLES Performing Organization Address [facility] Co de Phone Number [address] [address], [facility] [phone] * IRON BLOOD (12/12/2019 9:51 AM CDT) Pathologist [facility] Iron 66 40 - 150 mcg/dL 12/12/2019 1:19 PM CDT [facility] Blood BLOOD SPECIMEN / Unknown Lab Venipuncture / Unknown 12/12/2019 9:51 AM CDT 12/12/2019 12:46 PM CDT Tamir Becerra MD LAB - CHEMISTRY [place] [address] [address], [facility] [phone] * HEPATITIS B SURFACE ANTIBODY (12/12/2019 9:51 AM CDT) Pathologist [facility] Hepatitis B Virus Surface Antibody Non-react abdirahman Non-react abdirahman 12/12/2019 1:37 PM CDT [facility] Comment: < 8 mIU/mL Hepatitis B surface Antibody (HBsAb). Nonreactive for HBsAb - individual is considered not immune to Hepatitis B Virus infection. Hepatitis B Surface Antibody Quantitative 0.3 <8.0 mIU/mL 12/12/2019 1:37 PM CDT [facility] Comment: Hepatitis B Surface Antibody Numeric Result Interpretation: Nonreactive: <8.0 mIU/mL Indeterminate: 8.0 - 12.0 mIU/mL Reactive: >12.0 mIU/mL Blood BLOOD SPECIMEN / Unknown Lab Venipuncture / Unknown 12/12/2019 9:51 AM CDT 12/12/2019 12:46 PM CDT Abby Jaquez APRN-SURGICAL ELASTIC KNITTER HAND FRAME LAB - CHEMI STRY ORDERABLES Performing Organization Address City/[facility]/ZIP Co de Phone Number [address] [address], [facility] [phone] * HEPATITIS B CORE ANTIBODY (12/12/2019 9:51 AM CDT) HBc Antibody Total Non-reacti ve Non-reacti ve 12/12/2019 12:07 PM CDT [facility] Blood BLOOD SPECIMEN / Unknown Lab Venipuncture / Unknown 12/12/2019 9:51 AM CDT 12/12/2019 11:02 AM CDT Abby Jaquez APRN-SURGICAL ELASTIC KNITTER HAND FRAME LAB - CHEMI STRY ORDERABLES Performing Organization Address City/[facility] Co de Phone Number [address] [address], [facility] [phone] * HEPATITIS B SURFACE ANTIGEN W RFLX CONFIRMATION (12/12/2019 9:51 AM CDT) Hepatitis B Virus Surface Antigen Non-reacti ve Non-reacti ve 12/12/2019 11:49 AM CDT [facility] Blood BLOOD SPECIMEN / Unknown Lab Venipuncture / Unknown 12/12/2019 9:51 AM CDT 12/12/2019 11:02 AM CDT Abby Jaquez ASSOCIATE DIRECTOR OF DEVELOPMENT-SURGICAL ELASTIC KNITTER HAND FRAME LAB - CHEMI STRY ORDERABLES [facility] [address] [place] [address], [place] [phone] * (ABNORMAL) IGG BLOOD (12/12/2019 9:51 AM CDT) Pathologist [facility] IgG 2,317(H) 540-1,822 mg/dL 12/12/2019 1:19 PM CDT [facility] Blood BLOOD SPECIMEN / Unknown Lab Venipuncture / Unknown 12/12/2019 9:51 AM CDT 12/12/2019 12:46 PM CDT Tamir Becerra MD LAB - CHEMISTRY A[place]AR [place]ILLA Performing Organization Address [facility] Co de Phone Number [address] [address], [place] [phone] * HEPATITIS C ANTIBODY (12/12/2019 9:51 AM CDT) Pathologist [facility] Hepatitis C Antibody Non-react abdirahman Non-reac tive 12/12/2019 12:07 PM CDT [facility] Comment:Hepatitis C Antibody screen indicates no [...] CDT 12/12/2019 11:02 AM CDT Abby Jaquez ASSOCIATE DIRECTOR OF DEVELOPMENT-SURGICAL ELASTIC KNITTER HAND FRAME LAB - CHEMI STRY ORDERABLES Performing Organization Address City/[facility]/ZIP Co de Phone Number [address] [address], [place] [phone] * US LIVER BIOPSY (10/22/2019 9:57 AM CDT) Anatomical Region Laterality Modality Abdomen X-Ray Angiograph y 10/22/2019 10:1 8 AM CDT Impressions 10/22/2019 10:33 AM CDT Impression: Ultrasound-guided core biopsy of liver, as detailed above. Note that the pathology report is pending at the time of this dictation. I, Dr. Derrell Veliz, was present and performed/supervised the entire procedure. Moderate sedation on this patient was ordered by me, administered intravenously in my presence, and monitored by the procedure nurse as an independent trained observer who was present throughout the procedure. The following parameters were monitored: oxygen saturation, heart rate, blood pressure, and response to care. Intra-service sedation start time was 0923 and end time was 0954 during which I was present. Total physician intra-service sedation time was 31 minutes. For details on pre moderate sedation and post moderate sedation patient evaluation, please review the evaluation forms in [facility]. For details on monitored clinical parameters during the intra-service sedation time, please review the procedure nurse documentation in [facility]. This report was electronically signed by DERRELL VELIZ on 10/22/2019 10:33 AM . Narrative 10/22/2019 10:33 AM CDT History: 33-year-old female with history of fatty liver disease and high probability of liver fibrosis on Fibroscan. Operators: 1.Dr. Veliz, Attending Physician 2.Dr. Farias, Resident Physician Anesthesia: 1.Local anesthesia - 10 mL of 1% lidocaine 2.Intravenous conscious sedation - Versed 2 mg and Fentanyl 100 mcg Procedure: 1.Limited ultrasound evaluation of the liver. 2.Ultrasound-guided core biopsy of liver. Procedure in detail: The procedure, risk, and possible complications were explained to the patient in detail, and informed consent was obtained. The patient was placed in a supine position on the ultrasound table and a limited multiplanar ultrasound evaluation of the liver was performed, demonstrating increased echogenicity. A percutaneous access site was marked on the skin. The marked site and skin around the region of interest was prepped and draped in sterile fashion. Pre-procedure time out was performed. Local anesthesia was provided with 1% Lidocaine. A 17 gauge coaxial needle system was advanced into the right liver under ultrasound guidance. The needle entry was documented. 2 core samples were acquired with a 18 gauge biopsy gun. The samples were sent to the pathology service in formalin. Post-biopsy limited ultrasound evaluation did not show any immediate complications such as major hemorrhage. The patient tolerated the procedure well and was transferred to the holding area in stable condition. Procedure Note Derrell Veliz MD - 10/22/2019 History: 33-year-old female with history of fatty liver disease and high probability of liver fibrosis on Fibroscan. Operators: 1.Dr. Veliz, Attending Physician 2.Dr. Farias, Resident Physician Anesthesia: 1.Local anesthesia - 10 mL of 1% lidocaine 2.Intravenous conscious sedation - Versed 2 mg and Fentanyl 100 mcg Procedure: 1.Limited ultrasound evaluation of the liver. 2.Ultrasound-guided core biopsy of liver. Procedure in detail: The procedure, risk, and possible complications were explained to the patient in detail, and informed consent was obtained. The patient was placed in a supine position on the ultrasound table and a limited multiplanar ultrasound evaluation of the liver was performed, demonstrating increased echogenicity. A percutaneous access site was marked on the skin. The marked site and skin around the region ofinterest was prepped and draped in sterile fashion. Pre-procedure time out was performed. Local anesthesia was provided with 1% Lidocaine. A 17 gauge coaxialneedle system was advanced into the right liver under ultrasound guidance. The needle entry was documented. 2 core samples were acquired with a 18gauge biopsy gun. The samples were sent to the pathology service in formalin. Post-biopsy limited ultrasound evaluation did not show any immediate complications such as major hemorrhage. The patient tolerated the procedure well and was transferred to the holding area in stable condition. Impression: Ultrasound-guided core biopsy of liver, as detailed above. Note that the pathology report is pending at the time of this dictation. I, Dr. Derrell Veliz, was present and performed/supervised the entire procedure. Moderate sedation on this patient was ordered by me, administered intravenously in my presence, and monitored by theprocedure nurse as an independent trained observer who was present throughout the procedure. The following parameters were monitored: oxygen saturation, heart rate, blood pressure, and response to care. Intra-service sedation start time was 0923 and end time was 0954 during which I was present. Total physician intra-service sedation time was 31 minutes. For detailson pre moderate sedation and post moderate sedation patient evaluation, please review the evaluation forms in [facility]. For details on monitored clinical parameters during the intra-service sedation time, pleasereview the procedure nurse documentation in [facility]. This report was electronically signed by DERRELL VELIZ on 10/22/2019 10:33AM . Ordering Provider Unlisted ORDERAB LES * (ABNORMAL) HEPATIC FUNCTION PANEL (10/22/2019 8:36 AM CDT) Protein Total 7.9 6.0 - 8.3 g/dL 020 9:13 AM T [facility] Albumin 3.1(L) 3.4 - 5.0 g/dL 10/22/2019 9:13 AM [facility] Bilirubin Total 1.3(H) 0.2 - 1.2 mg/dL 05/2019 9:13 AM [facility] Bilirubin Conjugated 0.9(H) 0.0 - 0.5 mg/dL 10/22/2019 9:13 AM [facility] Bilirubin Unconjugated 0.4 Unconjugated Bilirubin is a calculated value: Reference ranges have not been established. mg/dL 10/22/2019 9:13 AM [facility] Alkaline Phosphatase 133 40 - 150 Units/L 10/22/2019 9:13 AM [facility] ALT 26 0 - 55 Units/L 10/22/2019 9:13 AM [facility] AST 60(H) 5 - 34 Units/L 10/22/2019 9:13 AM [facility] Albumin/Globulin Ratio 0.6(L) 1.1 - 2.3 10/22/2019 9:13 AM [facility] Blood BLOOD SPECIMEN / Unknown Venipuncture / Unknown 10/22/2019 8:36 AM CDT 10/22/2019 8:41 AM CDT García Levine MD LAB - CHEMISTRY ORDYazmin VILLA [facility] Organization Address City/State/ZIP Co de Phone Number [facility] [address] [place] [phone], [facility] [phone] * HI LIVER ELASTOGRAPHY (03/25/2019 10:57 PM PHYSICAL INSTRUCTOR) Narrative Nitesh Galvan MD - 03/25/2019 10:57 PM PHYSICAL INSTRUCTOR Nitesh Galvan MD 03/25/2019 10:57 PM Diagnosis: Fatty Liver RN verified patient not , no implanted devices and NPO for prior 3 hours. Vital signs taken, procedure explained and consent signed. Date of Exam: 03/22/2019 Liver Stiffness: (LSM, kPa) median: 55.8 IQR (interquartile range): 5.0 IQR/Median% (ideally < 30%): 9% CAP (controlled attenuation parameter): 400 Technical Difficulty: None Ordering Provider: Eddie Pacheco NP Phone Fax Fibroscan interpretation: I have personally reviewed the Fibroscan report and associated tracings. The calculated Liver Stiffness Measurement (LSM, kPa) indicates that: The probability of advanced liver fibrosis is: very high and the probability of complications of portal hypertension is also high. The loss of ultrasound signal, (controlled attenuation parameter, CAP [dB/m]), indicates that the probability of hepatic steatosis is: high. Nitesh Galvan MD The following criteria are used to indicate the probability of advanced (stage 3-4) fibrosis: < 7.0 kPa: low 7.0-8.9 kPa: low to moderate 9.0-14.9 kPa: moderate 15-20 kPa: high > 20 kPa: very high Liver stiffness > 20 kPa is also associated with a high probability of complications of portal hypertension including varices and ascites. Liver stiffness > 50 kPa is associated with a high risk of variceal bleeding. These interpretations are based on the following published data: Bernice PJ, Linda M, Ivonne M, et al. Accuracy of FibroScan controlled attenuation parameter and liver stiffness measurement in assessing steatosis and fibrosis in patients with nonalcoholic fatty liver disease. Gastroenterology 2019;156:2022-9186. Meir MS, Kate R, Van Natmarcie ML, et al. Vibration-controlled transient elastography to assess fibrosis and steatosis in patients with nonalcoholic fatty liver disease. Clin Gastroenterol Hepatol 2019;17:156-163. Note: 1. Fibroscan cannot reliably identify earlier stages of fibrosis (ie distinguish F0 from F1 and F2) and thus a histologic stage cannot be predicted from the Fibroscan reading. 2. Assessing the likelihood of advanced fibrosis in patients with indeterminate liver stiffness measurement (LSM) by Fibroscan (e.g., 8-15 kPa) can be improved by also calculating the FIB4 score (Long et al. Hepatology Communications 2019;3:7384-0772) or NAFLD Fibrosis score (Melvin et al. Clinical Gastroenterology and Hepatology 2019;17:7872-3929. from routine clinical data. 3. Liver stiffness can be increased by factors other than fibrosis including passive congestion, infiltrative processes, active alcoholism, biliary obstruction and marked inflammation. The interpretation of the Fibroscan result provided above may not have taken such clinical factors into account. Disease etiology also influences Fibroscan cutoff values for fibrosis stages and the following cutoffs have been proposed (Agusto et al, Clin Gastro Hepatol 2015; 13:27-36): Cutoffs for Stage 3 and Stage 4 fibrosis respectively: Hepatitis B: >9 and >11.7 kPa Hepatitis C: >9.5 and >12.5 kPa HCV-HIV: >11 and >14 kPa Cholestatic liver diseases: >10 and >17.9 kPa NAFLD/ECHAVARRIA: >10 and >14 kPa CAP estimates of steatosis: normal <200 dB/m mild 200 to 250 dB/m moderate 250-290 dB/m substantial > 290 dB/m (Note that Fibroscan is not a quantitative measure of liver fat.) These criteria are estimates and may change as additional supporting data becomes available. [email or web address] Nitesh Bonilla MD PROCEDURE/ MINOR SURGICAL ORDERABLES * (ABNORMAL) GLUCOSE ACCUCHECK (05/13/2016 9:07 AM PHYSICAL INSTRUCTOR) Only the most recent of6 resultswithin the time period is included. Glucose, Fingerstick 244(H) 70-115mg/d L mg/dL [facility] Comment:Pen And Pencil Repairer: ALOK MCKEON 05/13/2016 9:07 AM PHYSICAL INSTRUCTOR Yamil Luther MD LAB - CHEMISTRY [place] [facility]) * HCG URINE QUALITATIVE - POCT (IP) [facility] (05/13/2016 7:22 AM PHYSICAL INSTRUCTOR) Only the most recent of12 resultswithin the time period is included. NEGATIVE [facility] Comment:Pen And Pencil Repairer: JAS DAY 05/13/2016 7:22 AM PHYSICAL INSTRUCTOR Yamil Luther MD LAB - POINT OF CARE ORDERABLES Performing Organization Address [facility]/ZIP Co de Phone Number [facility] GALI (TAMMY) * CULTURE AEROBIC (03/27/2015 9:57 AM PHYSICAL INSTRUCTOR) Culture Aerobic No Growth at 1 week [facility] Gram Stain [facility] Comment:donor ring only Cornea 03/27/2015 9:57 AM PHYSICAL INSTRUCTOR 03/28/2015 11:58 AM PHYSICAL INSTRUCTOR Narrative [facility] - 04/03/2015 12:20 PM PHYSICAL INSTRUCTOR Specimen Type->Cornea Gram Stains are routinely screened for the presence of Polymorphonuclear Cells. Original canceled order as anaerobic culture [id number]. Yamil Luther MD LAB - MICROBIOLOGY O RDERABLES Performing Organization Address [facility] Co de Phone Number [address] [phone] * CULTURE URINE (01/21/2015 9:16 PM PHYSICAL INSTRUCTOR) Culture Urine Less than 10,000 CFU/ML of Normal Urogenital/ Skin Ailyn [facility] Comment: Urine specimen (specimen) URINE / Unknown 01/21/2015 9:16 PM PHYSICAL INSTRUCTOR 01/21/2015 9:22 PM PHYSICAL INSTRUCTOR Narrative [facility] - 01/23/2015 10:28 AM PHYSICAL INSTRUCTOR Specimen Type->Urine Rosie Squires MD LAB - MICROBIOLOGY O RDERABLES Performing Organization Address [facility]/ZIP Co de Phone Number [address] [phone] * CT ABDOMEN PELVIS WO CONTRAST (01/21/2015 7:32 PM PHYSICAL INSTRUCTOR) Only the most recent of2 resultswithin the time period is included. Anatomical Region Laterality Modality Abdomen, Pelvis Other Impressions 01/22/2015 8:46 AM PHYSICAL INSTRUCTOR IMPRESSION: 1. No evidence of nephrolithiasis, hydroureteronephrosis or perinephric stranding. 2. Hyperattenuating material in the gallbladder likely representing sludge. 3. Diffusely decreased attenuation of the liver suggestive of hepatic steatosis. Findings discussed with ANTONETTE Deng by Randee Patiño on 01/21/2015 at 8:05 PM. Report dictated by Randee Patiño M.D. (Resident). I, Dr. CHAPARRITA TITUS M.D. have personally reviewed and interpreted this examination/study. This report was electronically signed by CHAPARRITA TITUS M.D. on 01/22/2015 8:46 AM . Narrative 01/22/2015 8:46 AM PHYSICAL INSTRUCTOR EXAMINATION: Computed tomography (CT) of the abdomen and pelvis without contrast HISTORY: 29-year-old female with abdominal pain. Concern for nephrolithiasis. TECHNIQUE: CT of the abdomen and pelvis was performed without the administration of intravenous contrast according to renal stone protocol. COMPARISON: CT abdomen and pelvis dated 01/27/2014 FINDINGS: Abdomen/Pelvis: Evaluation of abdominopelvic organs and vascular structures is limited due to lack of intravenous contrast. Within the limits of this noncontrasted study, the liver has homogeneous density without biliary ductal dilatation. There is diffusely decreased attenuation of the liver suggestive of hepatic steatosis. No focal intrahepatic lesions are seen. Hyperattenuating material within the gallbladder likely represent sludge. There is no gallbladder wall thickening, gallstones, or pericholecystic fluid. The intrahepatic and extrahepatic bile ducts are nondilated. The spleen, pancreas, and adrenal glands appear normal. The kidneys appear normal without evidence of renal calculi or hydronephrosis. The stomach contains ingested material. The small and large bowel are normal in caliber without evidence of wall thickening or obstruction. A normal appendix is identified in the right lower quadrant. There is no retroperitoneal lymphadenopathy. Subcentimeter mesenteric lymph nodes are identified. No free air or free fluid is identified within the abdomen. The urinary bladder is incompletely distended with fluid and appears normal. No urinary bladder calculi are identified. The uterus and ovaries appear normal. No free fluid is seen within the pelvis. Other: The visualized lung bases are clear. The imaged heart size is normal. There is no pericardial effusion. The abdominal aorta is normal in course and caliber. The remaining unenhanced abdominal vascular structures are normal. Bone windows demonstrate no suspicious lytic or blastic lesions. Procedure Note Chaparrita Titus MD - 06/18/2017 EXAMINATION: Computed tomography (CT) of the abdomen and pelvis withoutcontrast HISTORY: 29-year-old female with abdominal pain. Concern fornephrolithiasis. TECHNIQUE: CT of the abdomen and pelvis was performed without theadministration of intravenous contrast according to renal stoneprotocol. COMPARISON: CT abdomen and pelvis dated 01/27/2014 FINDINGS: Abdomen/Pelvis: Evaluation of abdominopelvic organs and vascular structures is limited dueto lack of intravenous contrast. Within the limits of this noncontrasted study, the liver has homogeneousdensity without biliary ductal dilatation. There is diffusely decreasedattenuation of the liver suggestive of hepatic steatosis. No focalintrahepatic lesions are seen. Hyperattenuating material within the gallbladder likely represent sludge.There is no gallbladder wall thickening, gallstones, or pericholecysticfluid. The intrahepatic and extrahepatic bile ducts are nondilated. Thespleen, pancreas, and adrenal glands appear normal. The kidneys appear normal without evidence of renalcalculi or hydronephrosis. The stomach contains ingested material. The small and large bowel arenormal in caliber without evidence of wall thickening or obstruction. Anormal appendix is identified in the right lower quadrant. There is noretroperitoneal lymphadenopathy. Subcentimeter mesenteric lymph nodes are identified. No free air or freefluid is identified within the abdomen. The urinary bladder is incompletely distended with fluid and appearsnormal. No urinary bladder calculi are identified. The uterus and ovariesappear normal. No free fluid is seen within the pelvis. Other: The visualized lung bases are clear. The imaged heart size is normal.There is no pericardial effusion. The abdominal aorta is normal in course and caliber. The remainingunenhanced abdominal vascular structures are normal. Bone windows demonstrate no suspicious lytic or blastic lesions. IMPRESSION IMPRESSION: 1. No evidence of nephrolithiasis, hydroureteronephrosis or perinephricstranding. 2. Hyperattenuating material in the gallbladder likely representingsludge. 3. Diffusely decreased attenuation of the liver suggestive of hepaticsteatosis. Findings discussed with ANTONETTE Deng by Randee Patiño on 01/21/2015t 8:05 PM. Report dictated by Randee Patiño M.D. (Resident). I, Dr. CHAPARRITA TITUS M.D. have personally reviewed and interpreted thisexamination/study. This report was electronically signed by CHAPARRITA TITUS M.D. on 01/22/20158:46 AM . Rosie Squires MD CT ORDERABLES * (ABNORMAL) URINALYSIS REFLEX TO MICROSCOPIC NO CULTURE (12/11/2014 3:37 PM CDT) Only the most recent of3 resultswithin the time period is included. Color UA Yellow Straw, Yellow, Colorless, Light Yellow [facility] Clarity UA Clear Clear [facility] Specific Leander UA 1.021 1.001 - 1.030 [facility] pH UA 5.5 5.0 - 8.0 [facility] Protein UA Negative <=20 mg/dL [facility] Glucose UA >1000(A) Negative mg/dL [facility] Ketone UA Negative Negative mg/dL [facility] Bilirubin UA Negative Negative mg/dL [facility] Blood UA Negative Negative [facility] Nitrite UA Negative Negative [facility] Leukocyte Esterase Negative Negative [facility] Urobilinogen UA <2.0 <2.0 mg/dL [facility] RBC UA 1 0 - 8 /HPF [facility] WBC UA <1 0 - 2 /HPF [facility] Squamous Epithelial Cells UA 3(H) 0 - 1 /HPF [facility] Mucus UA Rare(A) None /LPF [facility] Urine specimen (specimen) 12/11/2014 3:37 PM CDT 12/11/2014 3:46 PM CDT Simon Malone MD LAB - URINALYSIS ORD ERABLES [address] [phone] * (ABNORMAL) DIFFERENTIAL MANUAL (01/27/2014 9:01 PM PHYSICAL INSTRUCTOR) WBC (corrected for NRBC) 10.4 10 3/uL [facility] Total Cell Count 100 [facility] Neutrophils Absolute Manual 5.72 1.60 - 7.00 10 3/uL [facility] Comment:(BANDS+SEGS) x WBC = NEUT # (ANC) Lymphocyte Absolute Manual 3.64(H) 0.80 - 2.90 10 3/uL [facility] Monocytes Absolute Manual 0.62 0.14 - 0.66 10 3/uL [facility] Eosinophils Absolute Manual 0.42(H) 0.00 - 0.22 10 3/uL [facility] Neutrophil % Manual 55 30 - 60 % [facility] Lymphocyte % Manual 35 20 - 45 % [facility] Monocytes % Manual 6 2 - 10 % [facility] Eosinophils % Manual 4 1 - 6 % [facility] Platelet Estimate Adequate Adequate [facility] RBC Morphology Normal [facility] Blood specimen (specimen) BLOOD SPECIMEN / Unknown 01/27/2014 9:01 PM PHYSICAL INSTRUCTOR 01/27/2014 9:18 PM PHYSICAL INSTRUCTOR Jose Murray MD LAB - HEMATOLOGY ORD ERABLES [address] [phone] * GLUCOSE - POINT OF CARE (AMB) [facility] (01/12/2014 8:24 PM CDT) Only the most recent of4 resultswithin the time period is included. Simon Malone MD LAB - POINT OF CARE ORDERABLES [facility] RAD[facility] * (ABNORMAL) INFLUENZA A+B ANTIGEN RAPID (01/12/2014 7:34 PM CDT) Influenza A Rapid Test Positive(A) Negative [facility] Influenza B Rapid Test Negative Negative [facility] Nasopharyngeal SPECIMEN FROM NASOPHARYNGEAL STRUCTURE / Unknown 01/12/2014 7:34 PM CDT 01/12/2014 7:55 PM CDT Narrative [facility] - 01/12/2014 8:22 PM CDT Specimen Type->Nasopharyngeal The positive and negative predictive values of rapid influenza testing vary considerably depending upon the prevalence on influenza in the community. *False-positive results are more likely to occur when disease prevalence is low. *False-negative results are more likely to occur when disease prevalence is high. *Current local influenza prevalence can be obtained by calling the Director of Microbiology at [phone]. Simon Malone MD LAB - MICROBIOLOGY O RDERABLES [id number] [place] [address], [facility] [phone] * XR CHEST 2VW (01/12/2014 7:14 PM CDT) Only the most recent of2 resultswithin the time period is included. Anatomical Region Laterality Modality Chest Other Impressions 01/13/2014 8:33 AM CDT Impression: No acute pulmonary process. Report dictated by Darren Plunkett M.D., MPH (resident). This report was approved by Darren Plunkett M.D. on 01/12/2014 11:19 PM . I, Dr. DAMIEN US M.D. have personally reviewed and interpreted this examination/study. This report was electronically signed by DAMIEN US M.D. on 01/13/2014 8:33 AM . Narrative 01/13/2014 8:33 AM CDT Exam: XR CHEST PA AND LATERAL Exam Date: 01/12/2014 7:14 PM History: Chest pain. Comparison: Chest radiograph from 11/21/2013. Findings: No acute pathologic opacity, pleural effusion, or pneumothorax is present. The cardiomediastinal silhouette is normal. The visible bony thorax is intact. Procedure Note Damien Us MD - 06/18/2017 Exam: XR CHEST PA AND LATERAL Exam Date: 01/12/2014 7:14 PM History: Chest pain. Comparison: Chest radiograph from 11/21/2013. Findings: No acute pathologic opacity, pleural effusion, or pneumothorax is present.The cardiomediastinal silhouette is normal. The visible bony thorax isintact. IMPRESSION Impression: No acute pulmonary process. Report dictated by Darren Plunkett M.D., MPH (resident). This report was approved by Darren Plunkett M.D. on 01/12/201411:19 PM . I, Dr. DAMIEN US M.D. have personally reviewed and interpreted thisexamination/study. This report was electronically signed by DAMIEN US M.D. on01/13/2014 8:33 AM . Simon Malone MD [facility] Care Teams Regulatory Affairs Internship Relationship Specialty Start Date End Date Malika Campbell, ASSOCIATE DIRECTOR OF DEVELOPMENT-SURGICAL ELASTIC KNITTER HAND FRAME [address] [place] [phone] PCP - General 04/09/22
--- OUTSIDE RECORDS SUMMARY | 2024-05-04 13:30 | XMS_ITS | Encounter Summary ---
Author Organization [facility] Healthcare Address [address] [place] [address] Care Team Providers Care Mission Support Specialist Name Role Phone Barbara Oliva MD Primary Care Provider Miscellaneous, Not In File Unavailable Unava ilable Encounter Details Date Type Department Care Team (Late st Contact Info) Description 02/13/2024 Treatment [facility] PATHOLOGY [address] [address] Andie Byrne MD [address] [place] [id number] Social History Tobacco Use Types Packs/Day Years Used Date Smoking Tobacco: Every Day Cigarettes Passive Smoke Exposure: Never Smokeless Tobacco: Never [facility] Utilities Answer Date Recorded In the past 12 months has [employer], gas, oil, or water company threatened [...] often do you attend chur ch or roman catholic services? 1 to 4 times per year 01/29/2024 Do you belong to any clubs o r organizations such as methodist groups, unions, fraternal or athletic groups, or [...] any time in the past 12 m [facility], were you homeless or living in a [facility] (including now)? No 01/29/2024 Personal Safety Answer Date Recorded Have you ever been in or are you currently in a harmful physical or emotional relationship or is someone making you feel afraid or unsafe? Denies 02/10/2024 Comments No Sex and Gender Information Value Date Recorded Sex Assigned at Not on file Legal Sex Female 5:35 AM BURIAL AGENT Gender Identity Not on file Sexual Orientation [...] this patient. Contact Information: Please contact the [facility] Transfusion Medicine Service at (option 1) with any questions. This report has been prepared by: Andie Byrne MD Cosigned by Kassidy Mahoney MD PhD at 02/13/2024 7:52 PM BURIAL AGENT AL AGENT AL AGENT Associated attestation - Kassidy Mahoney MD PhD - 02/13/2024 7:52 PM BURIAL AGENT Attestation: I have personally reviewed the antibody [...] documented as of this encounter Care Teams Mission Support Specialist Relationship Specialty Start Date End Date Barbara Oliva MD [address] [place] [id number] PCP - General Gastroenterology 12/02/23 Miscellaneous, Not In File 01/03/24 documented as of this encounter
--- OUTSIDE RECORDS SUMMARY | 2024-05-04 13:30 | XMS_ITS | Clinical Summary ---
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 No [facility] Problem Noted Date Diagnosed Date Acute blood loss anemia 02/02/2024 Assessment & Plan (02/12/2024 12:56 PM MURAL PAINTER): Present on admit, f/u hemoglobin was 6.6 [...] 01/27/2024 Assessment & Plan (02/12/2024 12:58 PM MURAL PAINTER): INR 1.39 on admission. History of Doan cirrhosis. Other contibutors may be DOAC vs nutritional. Treated with vitamin K PO 01/26-01/28 F/u INR 1.51 in setting of cirrhosis. Hx chronic LUE DVT. Lovenox held due to anemia. No recent spontaneous bleeding noted. Monitor coags PRN Cirrhosis 01/27/2024 Overview (02/08/2024): History of Doan cirrhosis as per patient. Patient follows with [facility] liver doctor, last seen couple of years ago. -CT11/5: changes of cirrhosis with stigmata of portal hypertension including splenomegaly, recanalized periumbilical vein, small volume ascites, and mild diffuse anasarca. -Liver enzyme elevation could be from DOAN cirrhosis, ongoing antibiotics. -Hepatitis panel negative Assessment & Plan (02/12/2024 12:46 PM MURAL PAINTER): History of Doan cirrhosis as per patient. Patient follows with [facility] liver doctor, last seen couple of years [...] 01/26/2024 Assessment & Plan (02/12/2024 12:57 PM MURAL PAINTER): Known chronic DVT in left upper extremity distal brachial vein noted 12/2023, home Lovenox held due to recurring anemia requiring blood transfusions and did not tolerate therapeutic AC. Received recent Vit K supplementation this admit. Acute osteomyelitis of sacrum (CMS/HCC) 01/26/20 Assessment & Plan (02/10/2024 1:17 PM MURAL PAINTER): Initial encounter, likely has been evolving since [...] needed. Assessment & Plan (02/12/2024 12:59 PM MURAL PAINTER): -Prior history: General surgery consulted 01/09 at [...] NGTD. 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 Fax weekly Labs (CBC, CMP) To: [facility] ([phone]) Complication associated with peripherally inserted central catheter 01/17/2024 Renal abscess 01/17/2024 Assessment & Plan (02/12/2024 12:45 PM MURAL PAINTER): POA, associated with pyelonephritis, as above. Resolved. Assessment & Plan (02/10/2024 1:14 PM MURAL PAINTER): 37 y.o. female with PMH including cirrhosis of the liver, DM2, R foot OM with partial amputation who was transferred to [facility] 01/25 for pyelonephritis and renal abscess. OSH [...] with wound vac placement and transferred to [facility]. 01/25 admission to [facility]. Repeat CT A/P shows stable/slight decrease of [...] 01/03/2024 Assessment & Plan (02/12/2024 12:45 PM MURAL PAINTER): Initially admitted to OSH with prolonged hospitalization s/p G-tube on 12/26/2023 for TFs related to prior dysphagia. 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 with [facility] on 01/10 (PROFILE TRIMMER), Acute dysphagia mostly resolved, presents with mild [...] tube. -Patient sees hepatology for cirrhosis at [facility]. F/u as directed. Severe malnutrition 01/01/2024 Liver transplant failure (CMS/HCC) 12/30/2023 Other pneumonia, unspecified organism 12/30/2023 Critical illness myopathy 12/25/2023 Elevated liver enzymes 12/21/2023 Abnormal EKG 12/20/2023 Esophageal varices with blee ding in diseases classified elsewhere 12/11/2023 Acute respiratory failure with hypoxia ([facility]) 12/10/2023 Acute upper GI hemorrhage 12/10/2023 Aspiration pneumonia of both lower lobes due to gastric secretions 12/10/2023 Bacteremia 12/10/2023 Elevated troponin 12/10/2023 High anion gap metabolic acidosis 12/10/2023 Osteomyelitis of left lower extremity ([facility]) 12/10/2023 Other specified abnormal findings of blood chemi stry 12/10/2023 Pneumonitis due to inhalation of food and vomit ([facility]) 12/10/2023 Melena 12/09/2023 Closed fracture of proximal end of right humerus with routine healing 12/05/2023 NSTEMI (non-ST elevated myocardial infarction) ( [facility]) 12/05/2023 Diabetic foot infection ([facility]) 12/05/2023 Acute hematogenous osteomyelitis of left foot Traumatic closed displaced f racture of surgical neck of right humerus, with routine healing, subsequent encounter 12/01/2023 Assessment & Plan (02/12/2024 12:42 PM MURAL PAINTER): Hx of Right shoulder fx in 11/2023, [...] 12/01/2023 Assessment & Plan (02/10/2024 12:56 PM MURAL PAINTER): -Pt with ICU admission 12/08 with enterobacter bacteremia and UTI. Represented to OSH 01/[address] c/f pyelonephritis and multiple renal abscesses to L kidney. She was started on Meropenem. UA later grew ESBL e coli and enterobacter aerogenes. Transferred to [facility] for IR evaluation - BCx 01/08 NGTD, [...] 09/13/2020 Assessment & Plan (02/12/2024 12:44 PM MURAL PAINTER): Continue OSH insulin regimen: Lantus 8 Qpm + SSI, carb consistent diet. Continue to monitor serial accuchecks A1c previously 10.6, (poor OP control) and not checked this admit. Improved glucose control this admit. Anticipate close OP monitoring and follow up for goal care with underlying cirrhosis. NELIDA (acute kidney injury) 09/13/2020 Assessment & Plan (02/12/2024 12:57 PM MURAL PAINTER): Associated with hyperkalemia. Likely from decreased p.o. 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 Uric acid normal. ESR CRP elevated Examination benign, would hold off on MRI for now Diarrhea 01/27/2024 02/05/2024 Assessment & Plan (01/27/2024 4:24 PM MURAL PAINTER): Questionable diarrhea on admission to OSH. Patient reports normal bowel movements. 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 Received 1 unit earlier in OSH admission. Hgb 8-9. - Hgb >7, blood consent in chart. Encounters Date Type Department Care Team Description 04/20/2024 10:00 AM MURAL PAINTER Office Visit [facility] Radiology, Interventional Radiology [facility] [address] [facility] [address] [phone] Sophie Herman PA Dysphagia, oropharyngeal (Primary Dx); Gastrostomy tube in place (HCC) 04/19/2024 Telephone [facility] Radiology, Interventional Radiology [address] [facility] [address] [phone] Iker Neal 04/19/2024 Telephone [facility] Radiology, Interventional Radiology [address] [facility] [address] [phone] Luma Bach Scheduling Appointments 04/13/2024 Telephone [facility] Radiology, Interventional Radiology [address] [facility] [address] [phone] Jessica Beltran, RN Appointment 03/26/2024 Telephone [facility] [address] [place] [address] 4th Floor [address] [place] [address] Yuni Balderrama 02/27/2024 9:50 AM MURAL PAINTER Office [facility] [address] [place] [address] Floor [address] [place] [phone] Traumatic closed displaced fracture of surgical neck of right humerus, with routine healing, subsequent encounter (Primary Dx) 02/23/2024 Telephone [facility] Radiology [address] [address] Naila hSeehan, RN 02/14/2024 Telephone [facility] Radiology [address] [place] [phone] Loni Aragon, RN 02/14/2024 Orders Only [facility] Radiology [address] [place] [address] Loni Aragon, RN 02/13/2024 Treatment [facility] PATHOLOGY [address] [phone] Andie Byrne MD 02/07/2024 Orders Only [address] [phone] Jorge Carolina MD PhD 02/06/2024 Orders Only [facility] Neuro Interventional Radiology [address] [place] [address] Shelley Bal, KILLIAN 01/26/2024 9:52 PM MURAL PAINTER - 02/13/2024 1:30 PM MURAL PAINTER Hospital Encounter [address] [place] [address] Néstor Blevins MD Markova, MD Roger Rubalcava, [...] uit: Not Asked; Counseling Given: Not Answered [facility] Utilities Answer Date Recorded In the past 12 months has th PVPower, gas, oil, or water [employer] threatened to shut off services in your [...] often do you attend chur ch or hinduism services? 1 to 4 times per year 01/29/2024 Do you belong to any clubs o r organizations such as spiritism groups, unions, fraternal or athletic groups, or [...] any time in the past 12 m [facility], were you homeless or living in a [place] health care facility (including now)? No 01/29/2024 Personal Safety Answer Date Recorded Have you ever been in or are you currently in a harmful physical or emotional relationship or is someone making you feel afraid or unsafe? Denies 02/10/2024 Comments No Sex and Gender Information Value Date Recorded Sex Assigned at Not on file Legal Sex Female 5:35 AM MURAL PAINTER Gender Identity Not on file Sexual Orientation Not on file Obstetrics History Last Filed Vital Signs Vital Sign Reading Time Taken Comments Blood Pressure 116/80 02/13/2024 10:42 AM MURAL PAINTER Pulse 106 02/13/2024 10:42 AM MURAL PAINTER Temperature 37 C (98.6 F) 02/13/2024 5:38 AM MURAL PAINTER Respiratory Rate 18 02/13/2024 5:38 AM MURAL PAINTER Oxygen Saturation 95% 02/13/2024 10:42 AM MURAL PAINTER Inhaled Oxygen Concentration - - Weight 72.6 kg (160 lb) 04/20/2024 10:04 AM MURAL PAINTER Height 170.2 cm (5' 7 ) 04/20/2024 10:04 AM MURAL PAINTER Body Mass Index 25.06 04/20/2024 10:04 AM MURAL PAINTER Plan of Treatment Health Maintenance Due Date [...] history exists Medical Devices Implanted Type Area Pattern Layout Worker Device Identifier Shelf Expiration Date Model / Serial / Lot Musculoskeletal Transplant [id number] Mm Allograft Frozen Graft Bone Fibula Shaft [id number] - [id number] - [id number] Implanted:Qty: 1 on 01/31/2024 by Monika Gilbert MD at [facility] Bone Right: Humerus Musculoskeletal Transplant [id number] 07/06/2027 [id number] / [id number] / Synthes Lcp Combi Philos [id number] 5 Hole Shaft Lock Compression 241.903 - [id number] Implanted:Qty: 1 on 01/31/2024 by Monika Gilbert MD at [facility] Plate Right: Humerus Synthes 241.903 / / Synthes 3.5mm 2.9mm 44mm Self Tap Lock Stardrive Conical Head T15 Full 212.134 - [id number] Implanted:Qty: 1 on 01/31/2024 by Monika Gilbert MD at [facility] Screw Right: Humerus Synthes 212.134 / / Synthes 3.5mm 6mm 60mm 2.5mm Self Tap Small Hexagonal Socket Low Profile 204.860 - [id number] Implanted:Qty: 1 on 01/31/2024 by Monika Gilbert MD at [facility] Screw Right: Humerus Synthes 204.860 / / Synthes 3.5mm 6mm 32mm 2.5mm Self Tap Small Hexagonal Socket Low Profile 204.832 - [id number] Implanted:Qty: 2 on 01/31/2024 by Monika Gilbert MD at [facility] Screw Right: Humerus Synthes 204.832 / / Synthes 3.5mm 54mm Self Tap Lock Stardrive T15 Full Thread Screw Bone 02.212.054 - [id number] Implanted:Qty: 4 on 01/31/2024 by Monika Gilbert MD at [facility] Screw Right: Humerus Synthes 02.212.0 54 / / Synthes 3.5mm 2.9mm 32mm Self Tap Lock Stardrive Conical Head T15 Full 212.112 - [id number] Implanted:Qty: 2 on 01/31/2024 by Monika Gilbert MD at [facility] Screw Right: Humerus Synthes 212.112 / / Synthes 3.5mm 2.9mm 46mm Self Tap Lock Stardrive Conical Head T15 Full 212.136 - [id number] Implanted:Qty: 1 on 01/31/2024 by Monika Gilbert MD at [facility] Screw Right: Humerus Synthes I 212.136 / / Synthes 3.5mm 2.9mm 42mm Self Tap Lock Stardrive Conical Head Full Thread 212.118 - [id number] Implanted:Qty: 1 on 01/31/2024 by Monika Gilbert MD at [facility] Screw Right: Humerus Synthes I 212.118 / / Synthes 3.5mm 2.9mm 48mm Self Tap Lock Fix Angle Low Profile Pelvis Full 212.120 - [id number] Implanted:Qty: 1 on 01/31/2024 by Monika Gilbert MD at [facility] Screw Right: Humerus Synthes I 212.120 / / Synthes 3.5mm 2.9mm 55mm Self Tap Lock Stardrive Conical Head Pelvis Full 212.123 - [id number] Implanted:Qty: 1 on 01/31/2024 by Monika Gilbert MD at [facility] Screw Right: Humerus Synthes 212.123 / / Explanted Type Area Pattern Layout Worker Device Identifier Shelf Expiration Date Model / Serial / Lot Synthes 3.5mm 6mm 30mm 2.5mm Self Tap Small Hexagonal Socket Low Profile 204.830 - [id number] Explanted:Qty: 1 on 01/31/2024 by Monika Gilbert MD at [facility] Screw Right: Humerus Synthes 204.830 / / Procedures Procedure Name Priority Date/Time Associated Diagnosis Comments POCT GLUCOSE DEVICE Routine 02/13/2024 11:47 AM MURAL PAINTER POCT GLUCOSE DEVICE Routine 02/13/2024 7 :56 AM MURAL PAINTER EGFR Routine 02/12/2024 11:57 PM MURAL PAINTER DIFFERENTIAL AUTO Routine 02/12/2024 11:57 PM MURAL PAINTER HEPATIC FUNCTION PANEL Routine 11:57 PM MURAL PAINTER PHOSPHORUS Routine 02/12/2024 11:57 PM MURAL PAINTER MAGNESIUM Routine 02/12/2024 11:57 PM MURAL PAINTER BASIC METABOLIC PANEL Routine 02/12/2024 11:57 PM MURAL PAINTER CBC WITH AUTO DIFFERENTIAL Routine 02/12/2024 11:57 PM MURAL PAINTER POCT GLUCOSE DEVICE Routine 02/12/2024 8 :27 PM MURAL PAINTER POCT GLUCOSE DEVICE Routine 02/12/2024 5 :13 PM MURAL PAINTER POCT GLUCOSE DEVICE Routine 02/12/2024 12:27 PM MURAL PAINTER POCT GLUCOSE DEVICE Routine 02/12/2024 9 :21 AM MURAL PAINTER POCT GLUCOSE DEVICE Routine 02/12/2024 8 :02 AM MURAL PAINTER EGFR Routine 02/11/2024 11:54 PM MURAL PAINTER DIFFERENTIAL AUTO Routine 02/11/2024 11:54 PM MURAL PAINTER HEPATIC FUNCTION PANEL Routine 11:54 PM MURAL PAINTER PHOSPHORUS Routine 02/11/2024 11:54 PM MURAL PAINTER MAGNESIUM Routine 02/11/2024 11:54 PM MURAL PAINTER BASIC METABOLIC PANEL Routine 02/11/2024 11:54 PM MURAL PAINTER CBC WITH AUTO DIFFERENTIAL Routine 02/11/2024 11:54 PM MURAL PAINTER POCT GLUCOSE DEVICE Routine 02/11/2024 8 :20 PM MURAL PAINTER POCT GLUCOSE DEVICE Routine 02/11/2024 4 :42 PM MURAL PAINTER POCT GLUCOSE DEVICE Routine 02/11/2024 7 :33 AM MURAL PAINTER B RYDER C3 Routine 02/11/2024 12:30 AM MURAL PAINTER B RYDER IGG Routine 02/11/2024 12:30 AM MURAL PAINTER ANTIBODY IDENTIFICATION Routine 02/10/20 10:02 PM MURAL PAINTER TRANSFUSION REACTION EVALUATION Timed 02/10/2024 8:51 PM MURAL PAINTER DIRECT ANTIGLOBULIN TEST Timed 02/10/2024 8:51 PM MURAL PAINTER EGFR Routine 02/10/2024 8:51 PM MURAL PAINTER DIFFERENTIAL AUTO Routine 02/10/2024 8:5 1 PM MURAL PAINTER TYPE AND SCREEN Timed 02/10/2024 8:51 PM MURAL PAINTER HEPATIC FUNCTION PANEL Routine 8:51 PM MURAL PAINTER PHOSPHORUS Routine 02/10/2024 8:51 PM MURAL PAINTER MAGNESIUM Routine 02/10/2024 8:51 PM MURAL PAINTER BASIC METABOLIC PANEL Routine 02/10/2024 8:51 PM MURAL PAINTER CBC WITH AUTO DIFFERENTIAL Routine 02/10/2024 8:51 PM MURAL PAINTER POCT GLUCOSE DEVICE Routine 02/10/2024 8 :28 PM MURAL PAINTER POCT GLUCOSE DEVICE Routine 02/10/2024 5 :13 PM MURAL PAINTER CENTRAL LINE PLACEMENT > 5 YEARS IP Routine 02/10/2024 3:32 PM MURAL PAINTER POCT GLUCOSE DEVICE Routine 02/10/2024 12:31 PM MURAL PAINTER POCT GLUCOSE DEVICE Routine 02/10/2024 8 :15 AM MURAL PAINTER EGFR Routine 02/09/2024 9:52 PM MURAL PAINTER DIFFERENTIAL AUTO Routine 02/09/2024 9:5 2 PM MURAL PAINTER VANCOMYCIN LEVEL RANDOM Routine 02/09/20 9:52 PM MURAL PAINTER HEPATIC FUNCTION PANEL Routine 9:52 PM MURAL PAINTER PHOSPHORUS Routine 02/09/2024 9:52 PM MURAL PAINTER MAGNESIUM Routine 02/09/2024 9:52 PM MURAL PAINTER BASIC METABOLIC PANEL Routine 02/09/2024 9:52 PM MURAL PAINTER CBC WITH AUTO DIFFERENTIAL Routine 02/09/2024 9:52 PM MURAL PAINTER POCT GLUCOSE DEVICE Routine 02/09/2024 8 :32 PM MURAL PAINTER POCT GLUCOSE DEVICE Routine 02/09/2024 5 :55 PM MURAL PAINTER URINALYSIS, MICROSCOPIC ONLY STAT 02/09/2024 5:09 PM MURAL PAINTER URINE CULTURE STAT 02/09/2024 5:09 PM MURAL PAINTER URINALYSIS AND REFLEX TO MICROSCOPIC AND CULTURE STAT 02/09/2024 5:09 PM MURAL PAINTER XR ABDOMEN AP 1 VIEW ED Urgent/IP Urgent 02/09/2024 4:09 PM MURAL PAINTER POCT GLUCOSE DEVICE Routine 02/09/2024 12:51 PM MURAL PAINTER POCT GLUCOSE DEVICE Routine 02/09/2024 7 :40 AM MURAL PAINTER EGFR Timed 02/09/2024 12:07 AM MURAL PAINTER CREATININE Timed 02/09/2024 12:07 AM MURAL PAINTER VANCOMYCIN LEVEL RANDOM Routine 02/08/20 24 9:50 PM MURAL PAINTER EGFR Routine 02/08/2024 9:50 PM MURAL PAINTER DIFFERENTIAL AUTO Routine 02/08/2024 9:5 0 PM MURAL PAINTER PROTIME-INR Routine 02/08/2024 9:50 PM MURAL PAINTER HEPATIC FUNCTION PANEL Routine 9:50 PM MURAL PAINTER PHOSPHORUS Routine 02/08/2024 9:50 PM MURAL PAINTER MAGNESIUM Routine 02/08/2024 9:50 PM MURAL PAINTER BASIC METABOLIC PANEL Routine 02/08/2024 9:50 PM MURAL PAINTER CBC WITH AUTO DIFFERENTIAL Routine 02/08/2024 9:50 PM MURAL PAINTER POCT GLUCOSE DEVICE Routine 02/08/2024 8 :31 PM MURAL PAINTER POCT GLUCOSE DEVICE Routine 02/08/2024 5 :56 PM MURAL PAINTER VANCOMYCIN LEVEL TROUGH Timed 02/08/20 1:55 PM MURAL PAINTER POCT GLUCOSE DEVICE Routine 02/08/2024 11:40 AM MURAL PAINTER POCT GLUCOSE DEVICE Routine 02/08/2024 8 :20 AM MURAL PAINTER EGFR Routine 02/07/2024 9:30 PM MURAL PAINTER DIFFERENTIAL AUTO Routine 02/07/2024 9:3 0 PM MURAL PAINTER HEPATIC FUNCTION PANEL Routine 9:30 PM MURAL PAINTER PHOSPHORUS Routine 02/07/2024 9:30 PM MURAL PAINTER MAGNESIUM Routine 02/07/2024 9:30 PM MURAL PAINTER BASIC METABOLIC PANEL Routine 02/07/2024 9:30 PM MURAL PAINTER CBC WITH AUTO DIFFERENTIAL Routine 02/07/2024 9:30 PM MURAL PAINTER POCT GLUCOSE DEVICE Routine 02/07/2024 8 :20 PM MURAL PAINTER POCT GLUCOSE DEVICE Routine 02/07/2024 4 :41 PM MURAL PAINTER POCT GLUCOSE DEVICE Routine 02/07/2024 12:22 PM MURAL PAINTER MYCOLOGY (FUNGAL) CULTURE Routine 02/07/2024 11:30 AM MURAL PAINTER TISSUE AEROBIC AND ANAEROBIC CULTURE AND GRAM STAIN Routine 02/07/2024 11:30 AM MURAL PAINTER MYCOBACTERIOLOGY AFB CULTURE AND ACID-FAST STAIN Routine 02/07/2024 11:30 AM MURAL PAINTER MYCOLOGY (FUNGAL) CULTURE AND STAIN Routine 02/07/2024 11:30 AM MURAL PAINTER MYCOBACTERIOLOGY AFB CULTURE AND ACID-FAST STAIN Routine 02/07/2024 11:30 AM MURAL PAINTER AEROBIC AND ANAEROBIC CULTURE AND GRAM STAIN Routine 02/07/2024 11:30 AM MURAL PAINTER BIOPSY DEEP BONE IP Routine 02/07/2024 11:29 AM MURAL PAINTER SURGICAL PATHOLOGY Routine 02/07/2024 11:15 AM MURAL PAINTER POCT GLUCOSE DEVICE Routine 02/07/2024 8 :36 AM MURAL PAINTER POCT GLUCOSE DEVICE Routine 02/07/2024 7 :46 AM MURAL PAINTER VANCOMYCIN LEVEL TROUGH Timed 02/07/20 2:37 AM MURAL PAINTER EGFR Routine 02/06/2024 9:36 PM MURAL PAINTER DIFFERENTIAL AUTO Routine 02/06/2024 9:3 6 PM MURAL PAINTER HEPATIC FUNCTION PANEL Routine 4 9:36 PM MURAL PAINTER PHOSPHORUS Routine 02/06/2024 9:36 PM MURAL PAINTER MAGNESIUM Routine 02/06/2024 9:36 PM MURAL PAINTER BASIC METABOLIC PANEL Routine 02/06/2024 9:36 PM MURAL PAINTER CBC WITH AUTO DIFFERENTIAL Routine 02/06/2024 9:36 PM MURAL PAINTER POCT GLUCOSE DEVICE Routine 02/06/2024 9 :32 PM MURAL PAINTER POCT GLUCOSE DEVICE Routine 02/06/2024 5 :33 PM MURAL PAINTER POCT GLUCOSE DEVICE Routine 02/06/2024 11:52 AM MURAL PAINTER POCT GLUCOSE DEVICE Routine 02/06/2024 8 :16 AM MURAL PAINTER TROPONIN I HIGH-SENSITIVITY SERIES (BASELINE, 2HR, 4HR, 6HR) Timed 02/06/2024 6:53 AM MURAL PAINTER EGFR Routine 02/05/2024 10:32 PM MURAL PAINTER DIFFERENTIAL AUTO Routine 02/05/2024 10:32 PM MURAL PAINTER HEPATIC FUNCTION PANEL Routine 10:32 PM MURAL PAINTER PHOSPHORUS Routine 02/05/2024 10:32 PM MURAL PAINTER MAGNESIUM Routine 02/05/2024 10:32 PM MURAL PAINTER BASIC METABOLIC PANEL Routine 02/05/2024 10:32 PM MURAL PAINTER CBC WITH AUTO DIFFERENTIAL Routine 02/05/2024 10:32 PM MURAL PAINTER POCT GLUCOSE DEVICE Routine 02/05/2024 9 :13 PM MURAL PAINTER POCT GLUCOSE DEVICE Routine 02/05/2024 5 :38 PM MURAL PAINTER BLOOD CULTURE Routine 02/05/2024 3:25 PM MURAL PAINTER BLOOD CULTURE Routine 02/05/2024 3:25 PM MURAL PAINTER POCT GLUCOSE DEVICE Routine 02/05/2024 2 :10 PM MURAL PAINTER POCT GLUCOSE DEVICE Routine 02/05/2024 9 :18 AM MURAL PAINTER WOUND CARE Routine 02/05/2024 8:16 AM MURAL PAINTER Pressure injury of sacral region, stage 4 (HCC) POTASSIUM, WHOLE BLOOD Timed 8:08 AM MURAL PAINTER POTASSIUM LEVEL Timed 02/05/2024 7:45 AM MURAL PAINTER POCT GLUCOSE DEVICE Routine 02/05/2024 6 :00 AM MURAL PAINTER POCT GLUCOSE DEVICE Routine 02/05/2024 5:04 AM MURAL PAINTER POCT GLUCOSE DEVICE Routine 02/05/2024 4 :11 AM MURAL PAINTER ECG 12-LEAD STAT 02/05/2024 3:22 AM MURAL PAINTER EGFR Routine 02/04/2024 9:38 PM MURAL PAINTER DIFFERENTIAL AUTO Routine 02/04/2024 9:3 8 PM MURAL PAINTER HEPATIC FUNCTION PANEL Routine 9:38 PM MURAL PAINTER PHOSPHORUS Routine 02/04/2024 9:38 PM MURAL PAINTER MAGNESIUM Routine 02/04/2024 9:38 PM MURAL PAINTER BASIC METABOLIC PANEL Routine 02/04/2024 9:38 PM MURAL PAINTER CBC WITH AUTO DIFFERENTIAL Routine 02/04/2024 9:38 PM MURAL PAINTER POCT GLUCOSE DEVICE Routine 02/04/2024 9 :04 PM MURAL PAINTER POCT GLUCOSE DEVICE Routine 02/04/2024 5:12 PM MURAL PAINTER POCT GLUCOSE DEVICE Routine 02/04/2024 11:56 AM MURAL PAINTER HEMOGLOBIN AND HEMATOCRIT Timed 02/04/2024 11:16 AM MURAL PAINTER MRI SACRUM COCCYX WO CONTRAST ED Urgent/IP Urgent 02/04/2024 10:53 AM MURAL PAINTER POCT GLUCOSE DEVICE Routine 02/04/2024 7 :44 AM MURAL PAINTER TRANSFUSE RED BLOOD CELLS Timed 02/04/2024 5:50 AM MURAL PAINTER TYPE AND SCREEN Timed 02/04/2024 1:27 AM MURAL PAINTER PREPARE RBC Timed 02/04/2024 12:43 AM MURAL PAINTER EGFR Routine 02/03/2024 9:45 PM MURAL PAINTER DIFFERENTIAL AUTO Routine 02/03/2024 9:4 5 PM MURAL PAINTER HEPATIC FUNCTION PANEL Routine 9:45 PM MURAL PAINTER PHOSPHORUS Routine 02/03/2024 9:45 PM MURAL PAINTER MAGNESIUM Routine 02/03/2024 9:45 PM MURAL PAINTER BASIC METABOLIC PANEL Routine 02/03/2024 9:45 PM MURAL PAINTER CBC WITH AUTO DIFFERENTIAL Routine 02/03/2024 9:45 PM MURAL PAINTER POCT GLUCOSE DEVICE Routine 02/03/2024 9 :39 PM MURAL PAINTER POCT GLUCOSE DEVICE Routine 02/03/2024 5 :47 PM MURAL PAINTER POCT GLUCOSE DEVICE Routine 02/03/2024 2 :[address] ABDOMEN PELVIS W CONTRAST IP Routine 02/03/2024 10:03 AM MURAL PAINTER POCT GLUCOSE DEVICE Routine 02/03/2024 9 :24 AM MURAL PAINTER EGFR Routine 02/02/2024 10:40 PM MURAL PAINTER DIFFERENTIAL AUTO Routine 02/02/2024 10:40 PM MURAL PAINTER HEPATIC FUNCTION PANEL Routine 10:40 PM MURAL PAINTER PHOSPHORUS Routine 02/02/2024 10:40 PM MURAL PAINTER MAGNESIUM Routine 02/02/2024 10:40 PM MURAL PAINTER BASIC METABOLIC PANEL Routine 02/02/2024 10:40 PM MURAL PAINTER CBC WITH AUTO DIFFERENTIAL Routine 02/02/2024 10:40 PM MURAL PAINTER POCT GLUCOSE DEVICE Routine 02/02/2024 8 :25 PM MURAL PAINTER HEMOGLOBIN AND HEMATOCRIT Timed 02/02/2024 5:56 PM MURAL PAINTER POCT GLUCOSE DEVICE Routine 02/02/2024 4 :53 PM MURAL PAINTER POCT GLUCOSE DEVICE Routine 02/02/2024 12:56 PM MURAL PAINTER TRANSFUSE RED BLOOD CELLS Timed 02/02/2024 11:07 AM MURAL PAINTER POCT GLUCOSE DEVICE Routine 02/02/2024 9 :48 AM MURAL PAINTER HEPATITIS PANEL, ACUTE Routine 9:00 PM MURAL PAINTER LIPID PANEL Routine 01/26/2024 11:33 PM MURAL PAINTER HEMOGLOBIN A1C Routine 12/01/2023 6:48 PM CDT from Last 3 Months or Most Recently Relevant to Health Maintenance Results * POCT glucose (02/13/2024 11:47 AM MURAL PAINTER) Glucose, POC 122 70 - 199 mg/dL Blood 02/13/2024 11:4 7 AM MURAL PAINTER 02/13/2024 11:47 AM MURAL PAINTER Kassidy Pinzon MD LAB POCT ORDERABLES - DEVIC E Final Result Performing Organization Address City/[facility]/ZIP Co de Phone Number [facility] [facility] [place] [address] * POCT glucose (02/13/2024 7:56 AM MURAL PAINTER) Glucose, POC 95 70 - 199 mg/dL Blood 02/13/2024 7:56 AM MURAL PAINTER 02/13/2024 7:56 AM MURAL PAINTER Kassidy Pinzon MD LAB POCT ORDERABLES - DEVIC E Final Result Performing Organization Address City/[facility] Co de Phone Number [facility] [place] [address] * eGFR (02/12/2024 11:57 PM MURAL PAINTER) eGFR 79 >=60 mL/min/1. 73 m2 Comment: [...] reviewed 2021. Blood 02/12/2024 11:5 7 PM MURAL PAINTER 02/13/2024 12:29 AM MURAL PAINTER us Carin Granados MD LAB BLOOD ORDERABLES Tete palomino Result [facility] Department [place] [address] * Differential, auto (02/12/2024 11:57 PM MURAL PAINTER) Neutrophil abs 4.2 1.5 - 6.5 K/cumm Imm gran abs 0.0 0.0 - 0.1 K/cumm [facility] Lymphocyte abs 1.2 0.8 - 3.3 K/cumm [facility] Monocyte abs 0.6 0.2 - 0.8 K/cumm [facility] Eosinophil abs 0.2 0.0 - 0.5 K/cumm [facility] Basophil abs 0.0 0.0 - 0.1 K/cumm [facility] Neutrophil pct 67.3 % [facility] Comment: Interpretive Data Percent cell count reference ranges are not reported, since discordance with absolute values may lead to misinterpretation of CBC data. Current Interpretive Data was last revised on 2017. Imm gran pct 0.3 % [facility] Comment: Interpretive Data Percent cell count reference ranges are not reported, since discordance with absolute values may lead to misinterpretation of CBC data. Current Interpretive Data was last revised on 2017. Lymphocyte pct 19.2 % [facility] Comment: Interpretive Data Percent cell count reference ranges are not reported, since discordance with absolute values may lead to misinterpretation of CBC data. Current Interpretive Data was last revised on 2017. Monocyte pct 9.4 % [facility] Comment: Interpretive Data Percent cell count reference ranges are not reported, since discordance with absolute values may lead to misinterpretation of CBC data. Current Interpretive Data was last revised on 2017. Eosinophil pct 3.5 % [facility] Comment: Interpretive Data Percent cell count reference ranges are not reported, since discordance with absolute values may lead to misinterpretation of CBC data. Current Interpretive Data was last revised on 2017. Basophil pct 0.3 % [facility] Comment: Interpretive Data Percent cell count reference ranges are not reported, since discordance with absolute values may lead to misinterpretation of CBC data. Current Interpretive Data was last revised on 2017. Blood 02/12/2024 11:5 7 PM MURAL PAINTER 02/13/2024 12:29 AM MURAL PAINTER us Carin Granados MD LAB BLOOD ORDERABLES Tete palomino Result [facility] Department [place] [address] * (ABNORMAL) CBC with auto differential (02/12/2024 11:57 PM MURAL PAINTER) WBC 6.3 3.8 - 9.9 K/cumm Hgb 7.2(L) 11.9 - 15.5 g/dL [facility] Hct 23.1(L) 35.6 - 45.5 % [facility] Plt 208 150 - 400 K/cumm [facility] MPV 9.7 9.1 - 12.3 fL [facility] RBC 2.77(L) 3.90 - 5.20 M/cumm [facility] MCV 83.4 81.3 - 96.4 fL [facility] MCH 26.0(L) 27.1 - 33.3 pg [facility] MCHC 31.2(L) 32.3 - 35.7 g/dL [facility] RDW CV 14.4 11.1 - 14.9 % [facility] RDW SD 43.3 35.7 - 48.1 fL [facility] NRBC abs 0.00 0.00 - 0.01 K/cumm [facility] Blood 02/12/2024 11:5 7 PM MURAL PAINTER 02/13/2024 12:29 AM MURAL PAINTER Carin Granados MD LAB BLOOD ORDERABLES Tete l Result Performing Organization Address City/[facility]/ZIP Co de Phone Number [facility] [place] [address] * Phosphorus (02/12/2024 11:57 PM MURAL PAINTER) Phosphorus, pl 2.8 2.3 - 4.5 mg/dL Blood 02/12/2024 11:5 7 PM MURAL PAINTER 02/13/2024 12:29 AM MURAL PAINTER Carin Granados MD LAB BLOOD ORDERABLES Tete l Result Performing Organization Address City/[facility] Co de Phone Number [facility] [place] [address] * Magnesium (02/12/2024 11:57 PM MURAL PAINTER) Magnesium 2.2 1.4 - 2.5 mg/dL Blood 02/12/2024 11:5 7 PM MURAL PAINTER 02/13/2024 12:29 AM MURAL PAINTER Carin Granados MD LAB BLOOD ORDERABLES Tete l Result Performing Organization Address City/[facility]/ZIP Co de Phone Number [facility] [place] [address] * (ABNORMAL) Hepatic function panel (02/12/2024 11:57 PM MURAL PAINTER) Bilirubin, total 0.5 0.1 - 1.2 mg/dL Bilirubin, direct 0.2 0.1 - 0.3 mg/dL [facility] Protein, pl 7.2 6.5 - 8.5 g/dL [facility] Albumin 3.2(L) 3.5 - 5.0 g/dL [facility] Alk phos 330(H) 40 - 130 Units/L [facility] ALT 29 7 - 45 Units/L [facility] AST 68(H) 10 - 45 Units/L [facility] Blood 02/12/2024 11:5 7 PM MURAL PAINTER 02/13/2024 12:29 AM MURAL PAINTER Carin Granados MD LAB BLOOD ORDERABLES Tete l Result [facility] Department [place] [address] * Basic metabolic panel (02/12/2024 11:57 PM MURAL PAINTER) Sodium 140 135 - 145 mmol/L Potassium, pl 3.9 3.3 - 4.9 mmol/L [facility] Chloride 100 97 - 110 mmol/L [facility] CO2 30 22 - 32 mmol/L [facility] Anion gap 10 2 - 15 mmol/L [facility] BUN 24 6 - 25 mg/dL [facility] Creatinine 0.95 0.60 - 1.10 mg/dL [facility] Glucose 165 70 - 199 mg/dL [facility] Comment: Interpretive Data Fasting glucose [...] 2022. Calcium 8.9 8.5 - 10.3 mg/dL [facility] Blood 02/12/2024 11:5 7 PM MURAL PAINTER 02/13/2024 12:29 AM MURAL PAINTER us Carin Granados MD LAB BLOOD ORDERABLES Tete l Result Performing Organization Address [facility] Co de Phone Number [facility] [place] [address] * POCT glucose (02/12/2024 8:27 PM MURAL PAINTER) Glucose, POC 167 70 - 199 mg/dL Blood 02/12/2024 8:27 PM MURAL PAINTER 02/12/2024 8:27 PM MURAL PAINTER us Kassidy Pinzon MD LAB POCT ORDERABLES - DEVIC E Final Result Performing Organization Address [facility] de Phone Number [facility] [place] [address] * POCT glucose (02/12/2024 5:13 PM MURAL PAINTER) Glucose, POC 167 70 - 199 mg/dL Blood 02/12/2024 5:13 PM MURAL PAINTER 02/12/2024 5:13 PM MURAL PAINTER us Kassidy Pinzon MD LAB POCT ORDERABLES - DEVIC E Final Result Performing Organization Address [facility] Co de Phone Number [facility] [place] [address] * POCT glucose (02/12/2024 12:27 PM MURAL PAINTER) Glucose, POC 139 70 - 199 mg/dL Blood 02/12/2024 12:2 7 PM MURAL PAINTER 02/12/2024 12:27 PM MURAL PAINTER Kassidy Pinzon MD LAB POCT ORDERABLES - DEVIC E Final Result Performing Organization Address [facility] Co de Phone Number [facility] [address] * POCT glucose (02/12/2024 9:21 AM MURAL PAINTER) Glucose, POC 95 70 - 199 mg/dL Blood 02/12/2024 9:21 AM MURAL PAINTER 02/12/2024 9:21 AM MURAL PAINTER Kassidy Pinzon MD LAB POCT ORDERABLES - DEVIC E Final Result Performing Organization Address [facility] Co de Phone Number [facility] [place] [address] * POCT glucose (02/12/2024 8:02 AM MURAL PAINTER) Glucose, POC 91 70 - 199 mg/dL Blood 02/12/2024 8:02 AM MURAL PAINTER 02/12/2024 8:02 AM MURAL PAINTER Kassidy Pinzon MD LAB POCT ORDERABLES - DEVIC E Final Result Performing Organization Address [facility] [place] [address] * eGFR (02/11/2024 11:54 PM MURAL PAINTER) eGFR 65 >=60 mL/min/1. 73 m2 Comment: [...] reviewed 2021. Blood 02/11/2024 11:5 4 PM MURAL PAINTER 02/12/2024 12:43 AM MURAL PAINTER us Carin Granados MD LAB BLOOD ORDERABLES Tete palomino Result [facility] Department [place] [address] * Differential, auto (02/11/2024 11:54 PM MURAL PAINTER) Neutrophil abs 4.3 1.5 - 6.5 K/cumm Imm gran abs 0.0 0.0 - 0.1 K/cumm [facility] Lymphocyte abs 1.3 0.8 - 3.3 K/cumm [facility] Monocyte abs 0.7 0.2 - 0.8 K/cumm [facility] Eosinophil abs 0.2 0.0 - 0.5 K/cumm [facility] Basophil abs 0.0 0.0 - 0.1 K/cumm [facility] Neutrophil pct 66.6 % [facility] Comment: Interpretive Data Percent cell count reference ranges are not reported, since discordance with absolute values may lead to misinterpretation of CBC data. Current Interpretive Data was last revised on 2017. Imm gran pct 0.3 % [facility] Comment: Interpretive Data Percent cell count reference ranges are not reported, since discordance with absolute values may lead to misinterpretation of CBC data. Current Interpretive Data was last revised on 2017. Lymphocyte pct 19.4 % [facility] Comment: Interpretive Data Percent cell count reference ranges are not reported, since discordance with absolute values may lead to misinterpretation of CBC data. Current Interpretive Data was last revised on 2017. Monocyte pct 10.1 % [facility] Comment: Interpretive Data Percent cell count reference ranges are not reported, since discordance with absolute values may lead to misinterpretation of CBC data. Current Interpretive Data was last revised on 2017. Eosinophil pct 3.1 % [facility] Comment: Interpretive Data Percent cell count reference ranges are not reported, since discordance with absolute values may lead to misinterpretation of CBC data. Current Interpretive Data was last revised on 2017. Basophil pct 0.5 % [facility] Comment: Interpretive Data Percent cell count reference ranges are not reported, since discordance with absolute values may lead to misinterpretation of CBC data. Current Interpretive Data was last revised on 2017. Blood 02/11/2024 11:5 4 PM MURAL PAINTER 02/12/2024 12:42 AM MURAL PAINTER us Carin Granados MD LAB BLOOD ORDERABLES Tete palomino Result [facility] Department [place] [address] * (ABNORMAL) CBC with auto differential (02/11/2024 11:54 PM MURAL PAINTER) Pathologist [facility] WBC 6.4 3.8 - 9.9 K/cumm Hgb 7.4(L) 11.9 - 15.5 g/dL [facility] Hct 24.0(L) 35.6 - 45.5 % [facility] Plt 230 150 - 400 K/cumm [facility] MPV 9.8 9.1 - 12.3 fL [facility] RBC 2.88(L) 3.90 - 5.20 M/cumm [facility] MCV 83.3 81.3 - 96.4 fL [facility] MCH 25.7(L) 27.1 - 33.3 pg [facility] MCHC 30.8(L) 32.3 - 35.7 g/dL [facility] RDW CV 14.3 11.1 - 14.9 % [facility] RDW SD 42.9 35.7 - 48.1 fL [facility] NRBC abs 0.00 0.00 - 0.01 K/cumm [facility] Blood 02/11/2024 11:5 4 PM MURAL PAINTER 02/12/2024 12:42 AM MURAL PAINTER Carin Granados MD LAB BLOOD ORDERABLES Tete l Result Performing Organization Address [facility] Co de Phone Number [facility] [place] [address] * Phosphorus (02/11/2024 11:54 PM MURAL PAINTER) Phosphorus, pl 2.9 2.3 - 4.5 mg/dL Blood 02/11/2024 11:5 4 PM MURAL PAINTER 02/12/2024 12:43 AM MURAL PAINTER Result [facility] Carin Granados MD LAB BLOOD ORDERABLES Tete l Result Performing Organization Address [facility] Co de Phone Number [facility] [place] [address] * Magnesium (02/11/2024 11:54 PM MURAL PAINTER) Magnesium 2.5 1.4 - 2.5 mg/dL Blood 02/11/2024 11:5 4 PM MURAL PAINTER 02/12/2024 12:43 AM MURAL PAINTER Result [facility] Carin Granados MD LAB BLOOD ORDERABLES Tete l Result Performing Organization Address [facility] de Phone Number [facility] [place] [address] * (ABNORMAL) Hepatic function panel (02/11/2024 11:54 PM MURAL PAINTER) Bilirubin, total 0.6 0.1 - 1.2 mg/dL Bilirubin, direct 0.2 0.1 - 0.3 mg/dL [facility] Protein, pl 7.3 6.5 - 8.5 g/dL [facility] Albumin 3.1(L) 3.5 - 5.0 g/dL [facility] Alk phos 317(H) 40 - 130 Units/L [facility] ALT 27 7 - 45 Units/L [facility] AST 69(H) 10 - 45 Units/L [facility] Blood 02/11/2024 11:5 4 PM MURAL PAINTER 02/12/2024 12:43 AM MURAL PAINTER Carin Granados MD LAB BLOOD ORDERABLES Teet l Result [facility] Department [place] [address] * (ABNORMAL) Basic metabolic panel (02/11/2024 11:54 PM MURAL PAINTER) Pathologist [facility] Sodium 138 135 - 145 mmol/L Potassium, pl 4.5 3.3 - 4.9 mmol/L [facility] Chloride 99 97 - 110 mmol/L [facility] CO2 31 22 - 32 mmol/L [facility] Anion gap 8 2 - 15 mmol/L [facility] BUN 26(H) 6 - 25 mg/dL [facility] Creatinine 1.11(H) 0.60 - 1.10 mg/dL [facility] Glucose 96 70 - 199 mg/dL [facility] Comment: Interpretive Data Fasting glucose [...] 2022. Calcium 9.0 8.5 - 10.3 mg/dL [facility] Blood 02/11/2024 11:5 4 PM MURAL PAINTER 02/12/2024 12:43 AM MURAL PAINTER Carin Granados MD LAB BLOOD ORDERABLES Tete l Result Performing Organization Address [facility]/ZIP Co de Phone Number [facility] [place] [address] * POCT glucose (02/11/2024 8:20 PM MURAL PAINTER) Glucose, POC 114 70 - 199 mg/dL Blood 02/11/2024 8:20 PM MURAL PAINTER 02/11/2024 8:20 PM MURAL PAINTER us Kassidy Pinzon MD LAB POCT ORDERABLES - DEVIC E Final Result Performing Organization Address City/[facility] [place] [address] * POCT glucose (02/11/2024 4:42 PM MURAL PAINTER) [facility] Glucose, POC 106 70 - 199 mg/dL Blood 02/11/2024 4:42 PM MURAL PAINTER 02/11/2024 4:42 PM MURAL PAINTER us Kassidy Pinzon MD LAB POCT ORDERABLES - DEVIC E Final Result Performing Organization Address City/[facility]/ZIP Co de Phone Number [facility] [place] [address] * POCT glucose (02/11/2024 7:33 AM MURAL PAINTER) [facility] Glucose, POC 99 70 - 199 mg/dL Blood 02/11/2024 7:33 AM MURAL PAINTER 02/11/2024 7:33 AM MURAL PAINTER us Kassidy Pinzon MD LAB POCT ORDERABLES - DEVIC E Final Result Performing Organization Address City/[facility]/ZIP Co de Phone Number [facility] [place] [address] * B RYDER IGG (02/11/2024 12:30 AM MURAL PAINTER) [facility] Direct Ruiz IgG Negative Blood 02/11/2024 12:3 0 AM MURAL PAINTER 02/11/2024 12:30 AM MURAL PAINTER Kassidy Pinzon MD LAB BODY FLUIDS AND STOOLS ORDERABLES Final Result Performing Organization Address [facility] de Phone Number [facility] [place] [address] * (ABNORMAL) B RYDER C3 (02/11/2024 12:30 AM MURAL PAINTER) [facility] Direct Ruiz C3 Positive(A ) Blood 02/11/2024 12:3 0 AM MURAL PAINTER 02/11/2024 12:30 AM MURAL PAINTER Kassidy Pinzon MD LAB BLOOD ORDERABLES Final Result Performing Organization Address [facility] Phone Number [facility] [place] [address] * Antibody identification (02/10/2024 10:02 PM MURAL PAINTER) [facility] Antibody ID 1 Anti-K Comment:Previous anti-E not reacting Blood 02/10/2024 10:0 2 PM MURAL PAINTER 02/10/2024 10:02 PM MURAL PAINTER Kassidy Pinzon MD LAB BLOOD BANK TEST ORDERAB LES Final Result Performing Organization Address [facility] de Phone Number [facility] [place] [address] * eGFR (02/10/2024 8:51 PM MURAL PAINTER) [facility] eGFR 70 >=60 mL/min/1. 73 m2 Comment: [...] last reviewed 2021. Blood 02/10/2024 8:51 PM MURAL PAINTER 02/10/2024 9:12 PM MURAL PAINTER us Carin Granados MD LAB BLOOD ORDERABLES Tete palomino Result [facility] Department [place] [address] * Differential, auto (02/10/2024 8:51 PM MURAL PAINTER) Pathologist [facility] Neutrophil abs 4.2 1.5 - 6.5 K/cumm Imm gran abs 0.0 0.0 - 0.1 K/cumm [facility] Lymphocyte abs 1.4 0.8 - 3.3 K/cumm [facility] Monocyte abs 0.6 0.2 - 0.8 K/cumm [facility] Eosinophil abs 0.2 0.0 - 0.5 K/cumm [facility] Basophil abs 0.0 0.0 - 0.1 K/cumm [facility] Neutrophil pct 64.3 % [facility] Comment: Interpretive Data Percent cell count reference ranges are not reported, since discordance with absolute values may lead to misinterpretation of CBC data. Current Interpretive Data was last revised on 2017. Imm gran pct 0.3 % [facility] Comment: Interpretive Data Percent cell count reference ranges are not reported, since discordance with absolute values may lead to misinterpretation of CBC data. Current Interpretive Data was last revised on 2017. Lymphocyte pct 22.0 % [facility] Comment: Interpretive Data Percent cell count reference ranges are not reported, since discordance with absolute values may lead to misinterpretation of CBC data. Current Interpretive Data was last revised on 2017. Monocyte pct 9.4 % [facility] Comment: Interpretive Data Percent cell count reference ranges are not reported, since discordance with absolute values may lead to misinterpretation of CBC data. Current Interpretive Data was last revised on 2017. Eosinophil pct 3.7 % [facility] Comment: Interpretive Data Percent cell count reference ranges are not reported, since discordance with absolute values may lead to misinterpretation of CBC data. Current Interpretive Data was last revised on 2017. Basophil pct 0.3 % [facility] Comment: Interpretive Data Percent cell count reference ranges are not reported, since discordance with absolute values may lead to misinterpretation of CBC data. Current Interpretive Data was last revised on 2017. Blood 02/10/2024 8:51 PM MURAL PAINTER 02/10/2024 9:12 PM MURAL PAINTER us Carin Granados MD LAB BLOOD ORDERABLES Tete palomino Result [facility] Department [place] [address] * (ABNORMAL) CBC with auto differential (02/10/2024 8:51 PM MURAL PAINTER) WBC 6.5 3.8 - 9.9 K/cumm Hgb 7.5(L) 11.9 - 15.5 g/dL [facility] Hct 24.3(L) 35.6 - 45.5 % [facility] Plt 245 150 - 400 K/cumm [facility] MPV 9.5 9.1 - 12.3 fL [facility] RBC 2.92(L) 3.90 - 5.20 M/cumm [facility] MCV 83.2 81.3 - 96.4 fL [facility] MCH 25.7(L) 27.1 - 33.3 pg [facility] MCHC 30.9(L) 32.3 - 35.7 g/dL [facility] RDW CV 14.1 11.1 - 14.9 % [facility] RDW SD 42.3 35.7 - 48.1 fL [facility] NRBC abs 0.00 0.00 - 0.01 K/cumm [facility] Blood 02/10/2024 8:51 PM MURAL PAINTER 02/10/2024 9:12 PM MURAL PAINTER Carin Granados MD LAB BLOOD ORDERABLES Tete l Result Performing Organization Address [facility] Co de Phone Number [facility] [place] [address] * Transfusion reaction evaluation with specimen collection (02/10/2024 8:51 PM MURAL PAINTER) Recommended Product Transfuse K negative red blood cells. Recommened Pre Medication None [facility] Final Analysis of Transfusion Reaction Delayed Hemolytic Transfusion Reaction [facility] Blood 02/10/2024 8:51 PM MURAL PAINTER 02/10/2024 9:12 PM MURAL PAINTER Result [facility] Kassidy Pinzon MD LAB BLOOD BANK TEST ORDERAB LES Final Result Performing Organization Address [facility] Co de Phone Number [facility] [place] [address] * (ABNORMAL) Type and screen (02/10/2024 8:51 PM MURAL PAINTER) ABO Rh O Positive Ruiz, indirect Positive(A) [facility] Blood 02/10/2024 8:51 PM MURAL PAINTER 02/10/2024 9:12 PM MURAL PAINTER Narrative [facility] - 02/10/2024 10:02 PM MURAL PAINTER Has the patient had Daratumumab or Isatuximab in the past 6 months?->Unknown Kassidy Pinzon MD LAB BLOOD BANK TEST ORDERAB LES Final Result Performing Organization Address [facility] Co de Phone Number [facility] [address] [place], [place] [id number] * (ABNORMAL) Direct antiglobulin test (02/10/2024 8:51 PM MURAL PAINTER) Pathologist [facility] Direct Ruiz BS Interpretation Positive( A) Comment:Eluate not performed RYDER positive with anti-C3 only. Blood 02/10/2024 8:51 PM MURAL PAINTER 02/10/2024 9:12 PM MURAL PAINTER Kassidy Pinzon MD LAB BLOOD BANK TEST ORDERAB LES Final Result Performing Organization Address [facility] Co de Phone Number [place], [place] [id number] * Phosphorus (02/10/2024 8:51 PM MURAL PAINTER) Pathologist [facility] Phosphorus, pl 3.1 2.3 - 4.5 mg/dL Blood 02/10/2024 8:51 PM MURAL PAINTER 02/10/2024 9:12 PM MURAL PAINTER us Carin Granados MD LAB BLOOD ORDERABLES Tete l Result Performing Organization Address [facility] Co de Phone Number [facility] [place], [place] [id number] * Magnesium (02/10/2024 8:51 PM MURAL PAINTER) [facility] Magnesium 2.3 1.4 - 2.5 mg/dL Blood 02/10/2024 8:51 PM MURAL PAINTER 02/10/2024 9:12 PM MURAL PAINTER us Carin Granados MD LAB BLOOD ORDERABLES Tete l Result Performing Organization Address [facility] Co de Phone Number [facility] Department [place] [address] * (ABNORMAL) Hepatic function panel (02/10/2024 8:51 PM MURAL PAINTER) [facility] Bilirubin, total 0.8 0.1 - 1.2 mg/dL Bilirubin, direct 0.3 0.1 - 0.3 mg/dL [facility] Protein, pl 7.2 6.5 - 8.5 g/dL [facility] Albumin 3.1(L) 3.5 - 5.0 g/dL [facility] Alk phos 317(H) 40 - 130 Units/L [facility] ALT 26 7 - 45 Units/L [facility] AST 60(H) 10 - 45 Units/L [facility] Blood 02/10/2024 8:51 PM MURAL PAINTER 02/10/2024 9:12 PM MURAL PAINTER Carin Granados MD LAB BLOOD ORDERABLES Tete l Result [facility] Department [place] [address] * Basic metabolic panel (02/10/2024 8:51 PM MURAL PAINTER) [facility] [facility] Sodium 137 135 - 145 mmol/L Potassium, pl 4.5 3.3 - 4.9 mmol/L [facility] Chloride 100 97 - 110 mmol/L [facility] CO2 31 22 - 32 mmol/L [facility] Anion gap 6 2 - 15 mmol/L [facility] BUN 25 6 - 25 mg/dL [facility] Creatinine 1.05 0.60 - 1.10 mg/dL [facility] Glucose 103 70 - 199 mg/dL [facility] Comment: Interpretive Data Fasting glucose [...] 2022. Calcium 8.9 8.5 - 10.3 mg/dL [facility] Blood 02/10/2024 8:51 PM MURAL PAINTER 02/10/2024 9:12 PM MURAL PAINTER Carin Granados MD LAB BLOOD ORDERABLES Tete l Result [facility] [place] [address] * POCT glucose (02/10/2024 8:28 PM MURAL PAINTER) Glucose, POC 111 70 - 199 mg/dL Blood 02/10/2024 8:28 PM MURAL PAINTER 02/10/2024 8:28 PM MURAL PAINTER Kassidy Pinzon MD LAB POCT ORDERABLES - DEVIC E Final Result Performing Organization Address City/[facility] Co de Phone Number [facility] [place] [address] * POCT glucose (02/10/2024 5:13 PM MURAL PAINTER) Glucose, POC 96 70 - 199 mg/dL Blood 02/10/2024 5:13 PM MURAL PAINTER 02/10/2024 5:13 PM MURAL PAINTER Kassidy Pinzon MD LAB POCT ORDERABLES - DEVIC E Final Result Performing Organization Address City/[facility] Co de Phone Number [facility] [place] [address] * IR Central Line Placement > 5 Years (02/10/2024 3:32 PM MURAL PAINTER) Anatomical Region Laterality Modality Body N/A Radio Fluoroscop y 02/10/2024 3:42 PM MURAL PAINTER Impressions 02/10/2024 3:42 PM MURAL PAINTER Successful nontunneled catheter placement (5-Swedish dual-lumen) in the left internal jugular vein. [...] Abby Mao MD Narrative 02/10/2024 3:42 PM MURAL PAINTER EXAMINATION: NONTUNNELED CENTRAL VENOUS CATHETER PLACEMENT (STD) HISTORY: History sacral wound with plan for long-term intravenous antibiotics. ATTENDING PRESENCE: Abby Mao MD, PhD, the attending radiologist was present from the beginning to the end of the procedure. SEDATION: Local anesthetic only TECHNIQUE: The risks, benefits and alternatives were discussed and informed consent was obtained. Prior to beginning the procedure, [place] Protocol was used to confirm the patient's [...] was assessed. After dilating the tract, a 5-Swedish dual lumen aric trimmed to the appropriate [...] was obtained. Prior to beginning the procedure, [place] Protocol was used to confirm the patient's [...] was assessed. After dilating the tract, a 5-Swedish dual lumen aric trimmed to the appropriate [...] are seen. IMPRESSION: Successful nontunneled catheter placement (5-Swedish dual-lumen) in the left internal jugular vein. [...] ult * POCT glucose (02/10/2024 12:31 PM MURAL PAINTER) Glucose, POC 119 70 - 199 mg/dL Blood 02/10/2024 12:3 1 PM MURAL PAINTER 02/10/2024 12:31 PM MURAL PAINTER Kassidy Pinzon MD LAB POCT ORDERABLES - DEVIC E Final Result Performing Organization Address City/State/[facility] Co de Phone Number [facility] Department [place] [address] * POCT glucose (02/10/2024 8:15 AM MURAL PAINTER) Glucose, POC 96 70 - 199 mg/dL Blood 02/10/2024 8:15 AM MURAL PAINTER 02/10/2024 8:15 AM MURAL PAINTER Kassidy Pinzon MD LAB POCT ORDERABLES - DEVIC E Final Result Performing Organization Address City/[facility] Co de Phone Number [facility] [place] [address] * eGFR (02/09/2024 9:52 PM MURAL PAINTER) [facility] eGFR 71 >=60 mL/min/1. 73 m2 Comment: [...] last reviewed 2021. Blood 02/09/2024 9:52 PM MURAL PAINTER 02/09/2024 10:45 PM MURAL PAINTER Carin Granados MD LAB BLOOD ORDERABLES Tete georgette Result [facility] Department [place] [address] * Differential, auto (02/09/2024 9:52 PM MURAL PAINTER) Neutrophil abs 3.9 1.5 - 6.5 K/cumm Imm gran abs 0.0 0.0 - 0.1 K/cumm [facility] Lymphocyte abs 1.1 0.8 - 3.3 K/cumm [facility] Monocyte abs 0.7 0.2 - 0.8 K/cumm [facility] Eosinophil abs 0.2 0.0 - 0.5 K/cumm [facility] Basophil abs 0.0 0.0 - 0.1 K/cumm [facility] Neutrophil pct 65.2 % [facility] Comment: Interpretive Data Percent cell count reference ranges are not reported, since discordance with absolute values may lead to misinterpretation of CBC data. Current Interpretive Data was last revised on 2017. Imm gran pct 0.2 % [facility] Comment: Interpretive Data Percent cell count reference ranges are not reported, since discordance with absolute values may lead to misinterpretation of CBC data. Current Interpretive Data was last revised on 2017. Lymphocyte pct 19.0 % [facility] Comment: Interpretive Data Percent cell count reference ranges are not reported, since discordance with absolute values may lead to misinterpretation of CBC data. Current Interpretive Data was last revised on 2017. Monocyte pct 11.8 % [facility] Comment: Interpretive Data Percent cell count reference ranges are not reported, since discordance with absolute values may lead to misinterpretation of CBC data. Current Interpretive Data was last revised on 2017. Eosinophil pct 3.5 % [facility] Comment: Interpretive Data Percent cell count reference ranges are not reported, since discordance with absolute values may lead to misinterpretation of CBC data. Current Interpretive Data was last revised on 2017. Basophil pct 0.3 % [facility] Comment: Interpretive Data Percent cell count reference ranges are not reported, since discordance with absolute values may lead to misinterpretation of CBC data. Current Interpretive Data was last revised on 2017. Blood 02/09/2024 9:52 PM MURAL PAINTER 02/09/2024 10:46 PM MURAL PAINTER us Carin Granados MD LAB BLOOD ORDERABLES Tete l Result [facility] Department [place] [address] * (ABNORMAL) CBC with auto differential (02/09/2024 9:52 PM MURAL PAINTER) WBC 5.9 3.8 - 9.9 K/cumm Hgb 7.0(L) 11.9 - 15.5 g/dL [facility] Hct 22.8(L) 35.6 - 45.5 % [facility] Plt 230 150 - 400 K/cumm [facility] MPV 9.8 9.1 - 12.3 fL [facility] RBC 2.77(L) 3.90 - 5.20 M/cumm [facility] MCV 82.3 81.3 - 96.4 fL [facility] MCH 25.3(L) 27.1 - 33.3 pg [facility] MCHC 30.7(L) 32.3 - 35.7 g/dL [facility] RDW CV 13.7 11.1 - 14.9 % [facility] RDW SD 41.2 35.7 - 48.1 fL [facility] NRBC abs 0.00 0.00 - 0.01 K/cumm [facility] Blood 02/09/2024 9:52 PM MURAL PAINTER 02/09/2024 10:46 PM MURAL PAINTER us Carin Granados MD LAB BLOOD ORDERABLES Tete l Result [facility] [place] [address] * Phosphorus (02/09/2024 9:52 PM MURAL PAINTER) Pathologist [facility] Phosphorus, pl 3.1 2.3 - 4.5 mg/dL Blood 02/09/2024 9:52 PM MURAL PAINTER 02/09/2024 10:45 PM MURAL PAINTER us Carin Granados MD LAB BLOOD ORDERABLES Tete l Result Performing Organization Address City/[facility] Co de Phone Number [facility] [place] [address] * Magnesium (02/09/2024 9:52 PM MURAL PAINTER) Pathologist [facility] Magnesium 2.2 1.4 - 2.5 mg/dL Blood 02/09/2024 9:52 PM MURAL PAINTER 02/09/2024 10:45 PM MURAL PAINTER us Carin Granados MD LAB BLOOD ORDERABLES Tete l Result Performing Organization Address [facility] [place] [address] * Vancomycin level random (02/09/2024 9:52 PM MURAL PAINTER) [facility] Vancomycin random 11.5 mcg/mL Comment: Interpretive Data No reference ranges have been established for random drug levels. Current Interpretive Data was last revised on 2020. Blood 02/09/2024 9:52 PM MURAL PAINTER 02/09/2024 10:45 PM MURAL PAINTER us Kassidy Pinzon MD LAB BLOOD ORDERABLES Final Result Performing Organization Address City/[facility]/ZIP Co de Phone Number [facility] [place] [address] * (ABNORMAL) Hepatic function panel (02/09/2024 9:52 PM MURAL PAINTER) [facility] Bilirubin, total 0.9 0.1 - 1.2 mg/dL Bilirubin, direct 0.3 0.1 - 0.3 mg/dL [facility] Protein, pl 6.7 6.5 - 8.5 g/dL [facility] Albumin 2.7(L) 3.5 - 5.0 g/dL [facility] Alk phos 306(H) 40 - 130 Units/L [facility] ALT 27 7 - 45 Units/L [facility] AST 60(H) 10 - 45 Units/L [facility] Blood 02/09/2024 9:52 PM MURAL PAINTER 02/09/2024 10:45 PM MURAL PAINTER us Carin Granados MD LAB BLOOD ORDERABLES Tete l Result [facility] Department [place] [address] * Basic metabolic panel (02/09/2024 9:52 PM MURAL PAINTER) [facility] Sodium 138 135 - 145 mmol/L Potassium, pl 4.3 3.3 - 4.9 mmol/L [facility] Chloride 103 97 - 110 mmol/L [facility] CO2 29 22 - 32 mmol/L [facility] Anion gap 6 2 - 15 mmol/L [facility] BUN 21 6 - 25 mg/dL [facility] Creatinine 1.03 0.60 - 1.10 mg/dL [facility] Glucose 124 70 - 199 mg/dL [facility] Comment: Interpretive Data Fasting glucose [...] 2022. Calcium 8.7 8.5 - 10.3 mg/dL [facility] Blood 02/09/2024 9:52 PM MURAL PAINTER 02/09/2024 10:45 PM MURAL PAINTER Carin Granados MD LAB BLOOD ORDERABLES Tete l Result Performing Organization Address City/[facility] Co de Phone Number [facility] [place] [address] * POCT glucose (02/09/2024 8:32 PM MURAL PAINTER) Glucose, POC 135 70 - 199 mg/dL Blood 02/09/2024 8:32 PM MURAL PAINTER 02/09/2024 8:32 PM MURAL PAINTER us Kassidy Pinzon MD LAB POCT ORDERABLES - DEVIC E Final Result Performing Organization Address [facility] [place] [address] * POCT glucose (02/09/2024 5:55 PM MURAL PAINTER) Glucose, POC 142 70 - 199 mg/dL Blood 02/09/2024 5:55 PM MURAL PAINTER 02/09/2024 5:55 PM MURAL PAINTER Kassidy Pinzon MD LAB POCT ORDERABLES - DEVIC E Final Result Performing Organization Address [facility] de Phone Number [facility] [place] [address] * (ABNORMAL) Urinalysis reflex to microscopic and culture Urine (02/09/2024 5:09 PM MURAL PAINTER) Color, ur Straw Yellow Clarity, ur Cloudy(A) Clear [facility] Specific gravity, ur 1.014 1.003 - 1.030 [facility] pH, urine 8.0 [facility] Comment: Interpretive Data U rine pH is affected by diet, medications, systemic acid-base disturbances, and renal tubular function. pH may affect urinary stone formation. For example, urine pH below 6.0 may help reduce the tendency for calcium phosphate stones and pH greater than 6.0 may reduce the tendency for uric acid stone formation. Source: [facility] Current Interpretive Data was last revised on 2017 Protein, ur ql Trace Negative [facility] Glucose, ur ql Negative Negative [facility] Ketones, ur Negative Negative [facility] Bilirubin, ur Negative Negative [facility] Blood, ur 1+(A) Negative [facility] Urobilinogen, ur 2.0(A) <2.0 mg/dL [facility] Nitrite, ur Negative Negative [facility] Leukocyte esterase, ur 3+(A) Negative [facility] UA reflex comment Reflex to microscopic UA will be performed. [facility] Urine 02/09/2024 5:09 PM MURAL PAINTER 02/09/2024 5:48 PM MURAL PAINTER Kassidy Pinzon MD LAB MICROBIOLOGY - GENERAL ORDERABLES Final Result [facility] Department [place] [address] * (ABNORMAL) Urinalysis, microscopic only (02/09/2024 5:09 PM MURAL PAINTER) WBC, ur >50(A) 0 - 5 /HPF RBC, ur 6-10(A) 0 - 2 /HPF [facility] Epithelial cells, squamous, ur 1-5 0 - 5 /HPF [facility] Bacteria, ur Trace(A) [facility] Culture Reflex Comment Reflex to urine culture will be performed. [facility] Urine 02/09/2024 5:09 PM MURAL PAINTER 02/09/2024 5:48 PM MURAL PAINTER Kassidy Pinzon MD LAB URINE ORDERABLES Final Result [facility] Department [place] [address] * Urine culture Urine (02/09/2024 5:09 PM MURAL PAINTER) Report Final Report: No growth Urine 02/09/2024 5:09 PM MURAL PAINTER 02/09/2024 8:14 PM MURAL PAINTER Narrative [facility] - 02/10/2024 9:34 PM MURAL PAINTER Urine culture reflexed based upon urinalysis results. Testing performed by [facility] ([phone]) us Kassidy Pinzon MD LAB MICROBIOLOGY - GENERAL ORDERABLES Final Result Performing Organization Address [facility] Co de Phone Number [facility] Department [place] [address] * XR Abdomen Ap 1 Vw (02/09/2024 4:09 PM MURAL PAINTER) Anatomical Region Laterality Modality Body, Abdomen N/A Computed Radiogr aphy 02/09/2024 4:36 PM MURAL PAINTER Impressions 02/09/2024 4:54 PM MURAL PAINTER A single view of the abdomen is [...] Raheem Marion M.D. Narrative 02/09/2024 4:54 PM MURAL PAINTER EXAMINATION: Abdomen, one view. HISTORY: Abdominal pain. [...] ult * POCT glucose (02/09/2024 12:51 PM MURAL PAINTER) [facility] Glucose, POC 121 70 - 199 mg/dL Blood 02/09/2024 12:5 1 PM MURAL PAINTER 02/09/2024 12:51 PM MURAL PAINTER Kassidy Pinzon MD LAB POCT ORDERABLES - DEVIC E Final Result Performing Organization Address [facility] Co de Phone Number [facility] [place] [address] * POCT glucose (02/09/2024 7:40 AM MURAL PAINTER) [facility] Glucose, POC 96 70 - 199 mg/dL Blood 02/09/2024 7:40 AM MURAL PAINTER 02/09/2024 7:40 AM MURAL PAINTER Kassidy Pinzon MD LAB POCT ORDERABLES - DEVIC E Final Result Performing Organization Address [facility] Co de Phone Number [facility] [place] [address] * eGFR (02/09/2024 12:07 AM MURAL PAINTER) [facility] eGFR 77 >=60 mL/min/1. 73 m2 Comment: [...] reviewed 2021. Blood 02/09/2024 12:0 7 AM MURAL PAINTER 02/09/2024 12:57 AM MURAL PAINTER Carin Granados MD LAB BLOOD ORDERABLES Tete l Result Performing Organization Address City/[facility]/ZIP Co de Phone Number [facility] [place] [address] * Creatinine (02/09/2024 12:07 AM MURAL PAINTER) Creatinine 0.97 0.60 - 1.10 mg/dL Blood 02/09/2024 12:0 7 AM MURAL PAINTER 02/09/2024 12:57 AM MURAL PAINTER Narrative [facility] 02/09/2024 1:23 AM MURAL PAINTER While on enoxaparin Carin Granados MD LAB BLOOD ORDERABLES Tete l Result [facility] [place] [address] * eGFR (02/08/2024 9:50 PM MURAL PAINTER) eGFR 76 >=60 mL/min/1. 73 m2 Comment: [...] last reviewed 2021. Blood 02/08/2024 9:50 PM MURAL PAINTER 02/08/2024 11:07 PM MURAL PAINTER us Carin Granados MD LAB BLOOD ORDERABLES Tete palomino Result [facility] Department [place] [address] * Differential, auto (02/08/2024 9:50 PM MURAL PAINTER) Neutrophil abs 4.0 1.5 - 6.5 K/cumm Imm gran abs 0.0 0.0 - 0.1 K/cumm [facility] Lymphocyte abs 1.1 0.8 - 3.3 K/cumm [facility] Monocyte abs 0.5 0.2 - 0.8 K/cumm [facility] Eosinophil abs 0.3 0.0 - 0.5 K/cumm [facility] Basophil abs 0.0 0.0 - 0.1 K/cumm [facility] Neutrophil pct 68.3 % [facility] Comment: Interpretive Data Percent cell count reference ranges are not reported, since discordance with absolute values may lead to misinterpretation of CBC data. Current Interpretive Data was last revised on 2017. Imm gran pct 0.3 % [facility] Comment: Interpretive Data Percent cell count reference ranges are not reported, since discordance with absolute values may lead to misinterpretation of CBC data. Current Interpretive Data was last revised on 2017. Lymphocyte pct 17.9 % [facility] Comment: Interpretive Data Percent cell count reference ranges are not reported, since discordance with absolute values may lead to misinterpretation of CBC data. Current Interpretive Data was last revised on 2017. Monocyte pct 8.8 % [facility] Comment: Interpretive Data Percent cell count reference ranges are not reported, since discordance with absolute values may lead to misinterpretation of CBC data. Current Interpretive Data was last revised on 2017. Eosinophil pct 4.4 % [facility] Comment: Interpretive Data Percent cell count reference ranges are not reported, since discordance with absolute values may lead to misinterpretation of CBC data. Current Interpretive Data was last revised on 2017. Basophil pct 0.3 % [facility] Comment: Interpretive Data Percent cell count reference ranges are not reported, since discordance with absolute values may lead to misinterpretation of CBC data. Current Interpretive Data was last revised on 2017. Blood 02/08/2024 9:50 PM MURAL PAINTER 02/08/2024 10:57 PM MURAL PAINTER us Carin Granados MD LAB BLOOD ORDERABLES Tete palomino Result [facility] Department [place] [address] * (ABNORMAL) CBC with auto differential (02/08/2024 9:50 PM MURAL PAINTER) WBC 5.9 3.8 - 9.9 K/cumm Hgb 8.6(L) 11.9 - 15.5 g/dL [facility] Hct 27.7(L) 35.6 - 45.5 % [facility] Plt 239 150 - 400 K/cumm [facility] MPV 9.5 9.1 - 12.3 fL [facility] RBC 3.37(L) 3.90 - 5.20 M/cumm [facility] MCV 82.2 81.3 - 96.4 fL [facility] MCH 25.5(L) 27.1 - 33.3 pg [facility] MCHC 31.0(L) 32.3 - 35.7 g/dL [facility] RDW CV 13.6 11.1 - 14.9 % [facility] RDW SD 40.8 35.7 - 48.1 fL [facility] NRBC abs 0.00 0.00 - 0.01 K/cumm [facility] Blood 02/08/2024 9:50 PM MURAL PAINTER 02/08/2024 10:57 PM MURAL PAINTER Carin Granados MD LAB BLOOD ORDERABLES Tete l Result Performing Organization Address City/[facility] Co de Phone Number [facility] [place], [place] [id number] * (ABNORMAL) Protime-INR (02/08/2024 9:50 PM MURAL PAINTER) PT 16.5(H) 9.7 - 13.0 sec INR 1.51(H) 0.90 - 1.20 [facility] Comment: Interpretive data Oral anticoagulant therapeutic ranges: Venous thromboembolism prophylaxis or treatment: 2.0-3.0 CARDIOLOGY Standard range: 2.0-3.0 High-intensity range: 2.5-3.5 Refer to indication-specific guidelines for appropriate target ranges for prosthetic heart valve replacement. Current interpretive data was last revised on 2019. Blood 02/08/2024 9:50 PM MURAL PAINTER 02/08/2024 10:56 PM MURAL PAINTER us Kassidy Pinzon MD LAB BLOOD ORDERABLES Final Result Performing Organization Address City/[facility] Co de Phone Number [facility] [place], [place] [id number] * Phosphorus (02/08/2024 9:50 PM MURAL PAINTER) Phosphorus, pl 3.6 2.3 - 4.5 mg/dL Blood 02/08/2024 9:50 PM MURAL PAINTER 02/08/2024 10:52 PM MURAL PAINTER Carin Granados MD LAB BLOOD ORDERABLES Tete l Result Performing Organization Address [facility] de Phone Number [facility] [place] [address] * Magnesium (02/08/2024 9:50 PM MURAL PAINTER) Pathologist [facility] Magnesium 2.0 1.4 - 2.5 mg/dL Blood 02/08/2024 9:50 PM MURAL PAINTER 02/08/2024 10:52 PM MURAL PAINTER Carin Granados MD LAB BLOOD ORDERABLES Tete l Result Performing Organization Address [facility] [place] [address] * Vancomycin level random (02/08/2024 9:50 PM MURAL PAINTER) Pathologist [facility] Vancomycin random 20.0 mcg/mL Comment: Interpretive Data No reference ranges have been established for random drug levels. Current Interpretive Data was last revised on 2020. Blood 02/08/2024 9:50 PM MURAL PAINTER 02/08/2024 10:52 PM MURAL PAINTER Result [facility] Kassidy Pinzon MD LAB BLOOD ORDERABLES Final Result Performing Organization Address [facility] de Phone Number [facility] [place] [address] * (ABNORMAL) Hepatic function panel (02/08/2024 9:50 PM MURAL PAINTER) Pathologist [facility] Bilirubin, total 1.2 0.1 - 1.2 mg/dL Bilirubin, direct 0.3 0.1 - 0.3 mg/dL [facility] Protein, pl 7.2 6.5 - 8.5 g/dL [facility] Albumin 3.0(L) 3.5 - 5.0 g/dL [facility] Alk phos 305(H) 40 - 130 Units/L [facility] ALT 27 7 - 45 Units/L [facility] AST 63(H) 10 - 45 Units/L [facility] Blood 02/08/2024 9:50 PM MURAL PAINTER 02/08/2024 10:52 PM MURAL PAINTER us Carin Granados MD LAB BLOOD ORDERABLES Tete l Result [facility] Department [place] [address] * Basic metabolic panel (02/08/2024 9:50 PM MURAL PAINTER) Pathologist [facility] Sodium 139 135 - 145 mmol/L Potassium, pl 4.6 3.3 - 4.9 mmol/L [facility] Chloride 102 97 - 110 mmol/L [facility] CO2 29 22 - 32 mmol/L [facility] Anion gap 8 2 - 15 mmol/L [facility] BUN 23 6 - 25 mg/dL [facility] Creatinine 0.98 0.60 - 1.10 mg/dL [facility] Glucose 89 70 - 199 mg/dL [facility] Comment: Interpretive Data Fasting glucose [...] 2022. Calcium 9.1 8.5 - 10.3 mg/dL [facility] Blood 02/08/2024 9:50 PM MURAL PAINTER 02/08/2024 10:52 PM MURAL PAINTER us Carin Granados MD LAB BLOOD ORDERABLES Tete l Result Performing Organization Address [facility] Co de Phone Number [facility] [place] [address] * POCT glucose (02/08/2024 8:31 PM MURAL PAINTER) Glucose, POC 98 70 - 199 mg/dL Blood 02/08/2024 8:31 PM MURAL PAINTER 02/08/2024 8:31 PM MURAL PAINTER Kassidy Pinzon MD LAB POCT ORDERABLES - DEVIC E Final Result Performing Organization Address [facility] de Phone Number [facility] [place] [address] * POCT glucose (02/08/2024 5:56 PM MURAL PAINTER) Glucose, POC 123 70 - 199 mg/dL Blood 02/08/2024 5:56 PM MURAL PAINTER 02/08/2024 5:56 PM MURAL PAINTER Kassidy Pinzon MD LAB POCT ORDERABLES - DEVIC E Final Result Performing Organization Address [facility] de Phone Number [facility] Department [place] [address] * (ABNORMAL) Vancomycin level trough Prior to 3rd dose of 750mg Q12 (02/08/2024 1:55 PM MURAL PAINTER) Vancomycin trough 24.7(H) 10.0 - 20.0 mcg/mL Comment:Reviewed Blood 02/08/2024 1:55 PM MURAL PAINTER 02/08/2024 2:35 PM MURAL PAINTER Narrative [facility] - 02/08/2024 3:10 PM MURAL PAINTER Prior to 3rd dose of 750mg Q12 Kassidy Pinzon MD LAB BLOOD ORDERABLES Final Result Performing Organization Address City/[facility]/ZIP Co de Phone Number [facility] Department [place] [address] * POCT glucose (02/08/2024 11:40 AM MURAL PAINTER) Glucose, POC 98 70 - 199 mg/dL Blood 02/08/2024 11:4 0 AM MURAL PAINTER 02/08/2024 11:40 AM MURAL PAINTER us Kassidy Pinzon MD LAB POCT ORDERABLES - DEVIC E Final Result Performing Organization Address [facility] Co de Phone Number [facility] [place] [address] * POCT glucose (02/08/2024 8:20 AM MURAL PAINTER) [facility] Glucose, POC 91 70 - 199 mg/dL Blood 02/08/2024 8:20 AM MURAL PAINTER 02/08/2024 8:20 AM MURAL PAINTER us Kassidy Pinzon MD LAB POCT ORDERABLES - DEVIC E Final Result Performing Organization Address [facility] Co de Phone Number [facility] Department [place] [address] * eGFR (02/07/2024 9:30 PM MURAL PAINTER) [facility] eGFR 66 >=60 mL/min/1. 73 m2 Comment: [...] last reviewed 2021. Blood 02/07/2024 9:30 PM MURAL PAINTER 02/07/2024 10:34 PM MURAL PAINTER us Carin Granados MD LAB BLOOD ORDERABLES Tete palomino Result [facility] Department [place] [address] * Differential, auto (02/07/2024 9:30 PM MURAL PAINTER) Neutrophil abs 4.1 1.5 - 6.5 K/cumm Imm gran abs 0.0 0.0 - 0.1 K/cumm [facility] Lymphocyte abs 0.8 0.8 - 3.3 K/cumm [facility] Monocyte abs 0.6 0.2 - 0.8 K/cumm [facility] Eosinophil abs 0.3 0.0 - 0.5 K/cumm [facility] Basophil abs 0.0 0.0 - 0.1 K/cumm [facility] Neutrophil pct 71.0 % [facility] Comment: Interpretive Data Percent cell count reference ranges are not reported, since discordance with absolute values may lead to misinterpretation of CBC data. Current Interpretive Data was last revised on 2017. Imm gran pct 0.5 % [facility] Comment: Interpretive Data Percent cell count reference ranges are not reported, since discordance with absolute values may lead to misinterpretation of CBC data. Current Interpretive Data was last revised on 2017. Lymphocyte pct 14.0 % [facility] Comment: Interpretive Data Percent cell count reference ranges are not reported, since discordance with absolute values may lead to misinterpretation of CBC data. Current Interpretive Data was last revised on 2017. Monocyte pct 9.5 % [facility] Comment: Interpretive Data Percent cell count reference ranges are not reported, since discordance with absolute values may lead to misinterpretation of CBC data. Current Interpretive Data was last revised on 2017. Eosinophil pct 4.8 % [facility] Comment: Interpretive Data Percent cell count reference ranges are not reported, since discordance with absolute values may lead to misinterpretation of CBC data. Current Interpretive Data was last revised on 2017. Basophil pct 0.2 % [facility] Comment: Interpretive Data Percent cell count reference ranges are not reported, since discordance with absolute values may lead to misinterpretation of CBC data. Current Interpretive Data was last revised on 2017. Blood 02/07/2024 9:30 PM MURAL PAINTER 02/07/2024 10:29 PM MURAL PAINTER us Carin Granados MD LAB BLOOD ORDERABLES Tete palomino Result [facility] Department [place] [address] * (ABNORMAL) CBC with auto differential (02/07/2024 9:30 PM MURAL PAINTER) WBC 5.8 3.8 - 9.9 K/cumm Hgb 7.8(L) 11.9 - 15.5 g/dL [facility] Hct 24.7(L) 35.6 - 45.5 % [facility] Plt 226 150 - 400 K/cumm [facility] MPV 9.8 9.1 - 12.3 fL [facility] RBC 2.95(L) 3.90 - 5.20 M/cumm [facility] MCV 83.7 81.3 - 96.4 fL [facility] MCH 26.4(L) 27.1 - 33.3 pg [facility] MCHC 31.6(L) 32.3 - 35.7 g/dL [facility] RDW CV 13.3 11.1 - 14.9 % [facility] RDW SD 40.3 35.7 - 48.1 fL [facility] NRBC abs 0.00 0.00 - 0.01 K/cumm [facility] Blood 02/07/2024 9:30 PM MURAL PAINTER 02/07/2024 10:29 PM MURAL PAINTER Carin Granados MD LAB BLOOD ORDERABLES Tete l Result Performing Organization Address [facility] Co de Phone Number [facility] [place] [address] * Phosphorus (02/07/2024 9:30 PM MURAL PAINTER) Pathologist [facility] Phosphorus, pl 4.4 2.3 - 4.5 mg/dL Blood 02/07/2024 9:30 PM MURAL PAINTER 02/07/2024 10:34 PM MURAL PAINTER Carin Granados MD LAB BLOOD ORDERABLES Tete l Result Performing Organization Address [facility] Co de Phone Number [facility] Department [place] [address] * Magnesium (02/07/2024 9:30 PM MURAL PAINTER) Pathologist [facility] Magnesium 2.1 1.4 - 2.5 mg/dL Blood 02/07/2024 9:30 PM MURAL PAINTER 02/07/2024 10:34 PM MURAL PAINTER Result [facility] Carin Granados MD LAB BLOOD ORDERABLES Tete l Result Performing Organization Address [facility] de Phone Number [facility] [place] [address] * (ABNORMAL) Hepatic function panel (02/07/2024 9:30 PM MURAL PAINTER) Bilirubin, total 1.1 0.1 - 1.2 mg/dL Bilirubin, direct 0.3 0.1 - 0.3 mg/dL [facility] Protein, pl 6.7 6.5 - 8.5 g/dL [facility] Albumin 2.7(L) 3.5 - 5.0 g/dL [facility] Alk phos 326(H) 40 - 130 Units/L [facility] ALT 31 7 - 45 Units/L [facility] AST 80(H) 10 - 45 Units/L [facility] Blood 02/07/2024 9:30 PM MURAL PAINTER 02/07/2024 10:34 PM MURAL PAINTER us Carin Granados MD LAB BLOOD ORDERABLES Tete l Result [facility] Department [place] [address] * Basic metabolic panel (02/07/2024 9:30 PM MURAL PAINTER) Pathologist [facility] Sodium 139 135 - 145 mmol/L Potassium, pl 4.5 3.3 - 4.9 mmol/L [facility] Chloride 103 97 - 110 mmol/L [facility] CO2 28 22 - 32 mmol/L [facility] Anion gap 8 2 - 15 mmol/L [facility] BUN 24 6 - 25 mg/dL [facility] Creatinine 1.10 0.60 - 1.10 mg/dL [facility] Glucose 109 70 - 199 mg/dL [facility] Comment: Interpretive Data Fasting glucose [...] 2022. Calcium 8.7 8.5 - 10.3 mg/dL [facility] Blood 02/07/2024 9:30 PM MURAL PAINTER 02/07/2024 10:34 PM MURAL PAINTER Carin Granados MD LAB BLOOD ORDERABLES Tete l Result Performing Organization Address [facility] Co de Phone Number [facility] [place] [address] * POCT glucose (02/07/2024 8:20 PM MURAL PAINTER) Glucose, POC 127 70 - 199 mg/dL Blood 02/07/2024 8:20 PM MURAL PAINTER 02/07/2024 8:20 PM MURAL PAINTER us Kassidy Pinzon MD LAB POCT ORDERABLES - DEVIC E Final Result Performing Organization Address [facility] Phone Number [facility] [place] [address] * POCT glucose (02/07/2024 4:41 PM MURAL PAINTER) Glucose, POC 113 70 - 199 mg/dL Blood 02/07/2024 4:41 PM MURAL PAINTER 02/07/2024 4:41 PM MURAL PAINTER us Kassidy Pinzon MD LAB POCT ORDERABLES - DEVIC E Final Result Performing Organization Address [facility] Co de Phone Number [facility] [place] [address] * POCT glucose (02/07/2024 12:22 PM MURAL PAINTER) Glucose, POC 77 70 - 199 mg/dL Blood 02/07/2024 12:2 2 PM MURAL PAINTER 02/07/2024 12:22 PM MURAL PAINTER us Kassidy Pinzon MD LAB POCT ORDERABLES - DEVIC E Final Result Performing Organization Address [facility] Co de Phone Number [facility] [place] [address] * Tissue aerobic and anaerobic culture and gram stain Bone Sacral (02/07/2024 11:30 AM MURAL PAINTER) Direct Specimen Exam Stain: No polymorphonuclear leukocytes seen. No organisms seen. Report Final Report: No growth [facility] Bone (Sacral) 02/07/2024 11: 30 AM MURAL PAINTER 02/07/2024 3:04 PM MURAL PAINTER Narrative [facility] - 02/10/2024 12:53 PM MURAL PAINTER This is NOT Aspirate but instead a Coccyx Bone Biopsy Testing performed by [facility] Microbiology Laboratory ([phone]) Specimens submitted from normally sterile body sites [...] LAB MICROBIOLOGY - GENERAL ORDERABLES Final Result [facility] [place] [address] * Mycology (fungal) culture and stain Aspirate Sacral (02/07/2024 11:30 AM MURAL PAINTER) Direct Specimen Exam Stain: No Fungal elements seen. Report Final Report: No growth of fungus [facility] Aspirate (Sacral) 02/07/2024 11:30 AM MURAL PAINTER 02/07/2024 3:09 PM MURAL PAINTER Narrative [facility] - 03/06/2024 8:33 AM MURAL PAINTER Coccyx Aspirate Testing performed by [facility] Microbiology Laboratory ([phone]). us Carin Granados MD LAB MICROBIOLOGY - GENERA L ORDERABLES Final Result [facility] Department [place] [address] * Mycology (fungal) culture Bone Sacral (02/07/2024 11:30 AM MURAL PAINTER) Report Final Report: No growth of fungus Bone (Sacral) 02/07/2024 11: 30 AM MURAL PAINTER 02/07/2024 3:45 PM MURAL PAINTER Narrative [facility] - 03/06/2024 8:33 AM MURAL PAINTER Coccyx Bone Biopsy Testing performed by [facility] Laboratory ([phone]). us Kassidy Pinzon MD LAB MICROBIOLOGY - GENERAL ORDERAB[place] [address] * Mycobacteriology (AFB) culture and acid-fast stain Bone Sacral (02/07/2024 11:30 AM MURAL PAINTER) Direct Specimen Exam Stain: No Acid-fast bacilli seen Report Final Report: No growth of acid-fast bacilli [facility] Bone (Sacral) 02/07/2024 11: 30 AM MURAL PAINTER 02/07/2024 3:07 PM MURAL PAINTER Narrative [facility] - 04/09/2024 9:27 AM MURAL PAINTER Coccyx Bone Biopsy Testing performed by [facility]biology Laboratory ([phone]). us Carin Granados MD LAB MICROBIOLOGY - GENERA L [place] [address] * Mycobacteriology (AFB) culture and acid-fast stain Aspirate Sacral (02/07/2024 11:30 AM MURAL PAINTER) Direct Specimen Exam Stain: No Acid-fast bacilli seen Report Final Report: No growth of acid-fast bacilli [facility] Aspirate (Sacral) 02/07/2024 11:30 AM MURAL PAINTER 02/07/2024 3:09 PM MURAL PAINTER Narrative [facility] - 04/09/2024 9:27 AM MURAL PAINTER Coccyx Aspirate Testing performed by [facility]biology Laboratory ([phone]). Carin Granados MD LAB MICROBIOLOGY - GENERA L ORDERABLES Final Result Performing Organization Address City/[facility]/ZIP Co de Phone Number [facility] Department [place] [address] * Aerobic and anaerobic culture and gram stain Aspirate Sacral (02/07/2024 11:30 AM MURAL PAINTER) Direct Specimen Exam Stain: Rare polymorphonuclear leukocytes seen. No organisms seen. Report Final Report: No growth [facility] Aspirate (Sacral) 02/07/2024 11:30 AM MURAL PAINTER 02/07/2024 3:09 PM MURAL PAINTER Narrative [facility] - 02/10/2024 12:52 PM MURAL PAINTER Coccyx Aspirate Testing performed by [facility] Microbiology Laboratory ([phone]) Specimens submitted from normally sterile body sites [...] L ORDERABLES Final Result Performing Organization Address City/[facility]/ZIP Co de Phone Number [facility] [place] [address] * IR Biopsy Deep Bone (02/07/2024 11:29 AM MURAL PAINTER) Anatomical Region Laterality Modality Body N/A Computed Tomogra phy 02/07/2024 1:23 PM MURAL PAINTER Impressions 02/07/2024 5:11 PM MURAL PAINTER Coccygeal bone biopsy under CT guidance. The core specimens were sent to surgical pathology and microbiology. Aspirate was sent to microbiology. Dictated by: Craig Sheppard M.D. The radiology attending physician has personally reviewed this study, and had reviewed and/or edited this written report and agrees with it. 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 Jorge Carolina MD, PHD, the attending radiologist, was present from the beginning to the end of the procedure. Dr. Ness (radiology transporter) was present and participated in the procedure. [...] was obtained. Prior to beginning the procedure, [place] Protocol was performed to confirm the patient's [...] end of the procedure. Dr. Ness (radiology transporter) was present and participated in the procedure. [...] was obtained. Prior to beginning the procedure, [place] Protocol was performed to confirm the patient's [...] esult * Surgical pathology (02/07/2024 11:15 AM MURAL PAINTER) Bone biopsy, metabolic disease 02/07/2024 11:15 AM MURAL PAINTER 02/07/2024 2:18 PM MURAL PAINTER Narrative 02/09/2024 10:35 AM MURAL PAINTER EPIC results best viewed via link to PDF [facility] [place] [address] Note to Patients: This report may contain [...] Gender: F : 1985 (Age: 38) Address: [address] [place] [address] Hospital #: [id number] Taken:02/07/2024 Received:02/07/2024 Reported: 02/09/2024 [facility]: [facility] Inpatient Service: Medical Location: [place] [address] Physician(s): Jorge Carolina M.D. Barbara Oliva MD [...] Surgical Pathology and Flow Cytometry Departments at [facility] as part of an ongoing quality control assessor program and in compliance with federally [...] Surgical Pathology and Flow Cytometry Departments of [facility]. It has not been cleared or approved by the U. S. Food and Drug Administration. IMAGES AND SCANNED DOCUMENTS, IF INCLUDED, ONLY VIEWABLE IN PDF VERSION OF REPORT Jorge Carolina MD PhD LAB PATHOLOGY ORDER [place] Final Result * POCT glucose (02/07/2024 8:36 AM MURAL PAINTER) Glucose, POC 79 70 - 199 mg/dL Blood 02/07/2024 8:36 AM MURAL PAINTER 02/07/2024 8:36 AM MURAL PAINTER Kassidy Pinzon MD LAB POCT ORDERABLES - DEVIC E Final Result Performing Organization Address [facility] Co de Phone Number [facility] [place] [address] * POCT glucose (02/07/2024 7:46 AM MURAL PAINTER) [facility] Glucose, POC 83 70 - 199 mg/dL Blood 02/07/2024 7:46 AM MURAL PAINTER 02/07/2024 7:46 AM MURAL PAINTER Kassidy Pinzon MD LAB POCT ORDERABLES - DEVIC E Final Result Performing Organization Address [facility] de Phone Number [facility] [place] [address] * (ABNORMAL) Vancomycin level trough Draw trough 30 minutes prior to 4th dose. (02/07/2024 2:37 AM MURAL PAINTER) [facility] Vancomycin trough 24.3(H) 10.0 - 20.0 mcg/mL Blood 02/07/2024 2:37 AM MURAL PAINTER 02/07/2024 3:13 AM MURAL PAINTER Narrative [facility] - 02/07/2024 3:44 AM MURAL PAINTER Draw trough 30 minutes prior to 4th dose. Carin Granados MD LAB BLOOD ORDERABLES Tete l Result Performing Organization Address [facility] [place] [address] * eGFR (02/06/2024 9:36 PM MURAL PAINTER) [facility] eGFR 71 >=60 mL/min/1. 73 m2 Comment: [...] last reviewed 2021. Blood 02/06/2024 9:36 PM MURAL PAINTER 02/06/2024 11:02 PM MURAL PAINTER Carin Granados MD LAB BLOOD ORDERABLES Tete palomino Result [facility] Department [place] [address] * Differential, auto (02/06/2024 9:36 PM MURAL PAINTER) Pathologist [facility] Neutrophil abs 3.8 1.5 - 6.5 K/cumm Imm gran abs 0.0 0.0 - 0.1 K/cumm [facility] Lymphocyte abs 0.9 0.8 - 3.3 K/cumm [facility] Monocyte abs 0.6 0.2 - 0.8 K/cumm [facility] Eosinophil abs 0.3 0.0 - 0.5 K/cumm [facility] Basophil abs 0.0 0.0 - 0.1 K/cumm [facility] Neutrophil pct 68.0 % [facility] Comment: Interpretive Data Percent cell [...] revised on 2017. Lymphocyte pct 16.0 % [facility] Comment: Interpretive Data Percent cell count reference ranges are not reported, since discordance with absolute values may lead to misinterpretation of CBC data. Current Interpretive Data was last revised on 2017. Monocyte pct 10.8 % [facility] Comment: Interpretive Data Percent cell count reference ranges are not reported, since discordance with absolute values may lead to misinterpretation of CBC data. Current Interpretive Data was last revised on 2017. Eosinophil pct 4.8 % [facility] Comment: Interpretive Data Percent cell count reference ranges are not reported, since discordance with absolute values may lead to misinterpretation of CBC data. Current Interpretive Data was last revised on 2017. Basophil pct 0.2 % [facility] Comment: Interpretive Data Percent cell count reference ranges are not reported, since discordance with absolute values may lead to misinterpretation of CBC data. Current Interpretive Data was last revised on 2017. Blood 02/06/2024 9:36 PM MURAL PAINTER 02/06/2024 11:03 PM MURAL PAINTER us Carin Granados MD LAB BLOOD ORDERABLES Tete palomino Result [facility] Department [place] [address] * (ABNORMAL) CBC with auto differential (02/06/2024 9:36 PM MURAL PAINTER) WBC 5.6 3.8 - 9.9 K/cumm Hgb 8.1(L) 11.9 - 15.5 g/dL [facility] Hct 25.1(L) 35.6 - 45.5 % [facility] Plt 226 150 - 400 K/cumm [facility] MPV 9.6 9.1 - 12.3 fL [facility] RBC 3.03(L) 3.90 - 5.20 M/cumm [facility] MCV 82.8 81.3 - 96.4 fL [facility] MCH 26.7(L) 27.1 - 33.3 pg [facility] MCHC 32.3 32.3 - 35.7 g/dL [facility] RDW CV 13.5 11.1 - 14.9 % [facility] RDW SD 41.0 35.7 - 48.1 fL [facility] NRBC abs 0.00 0.00 - 0.01 K/cumm [facility] Blood 02/06/2024 9:36 PM MURAL PAINTER 02/06/2024 11:03 PM MURAL PAINTER Carin Granados MD LAB BLOOD ORDERABLES Tete l Result Performing Organization Address City/[facility] Co de Phone Number [facility] Department [place] [address] * Phosphorus (02/06/2024 9:36 PM MURAL PAINTER) Phosphorus, pl 4.5 2.3 - 4.5 mg/dL Blood 02/06/2024 9:36 PM MURAL PAINTER 02/06/2024 11:02 PM MURAL PAINTER Carin Granados MD LAB BLOOD ORDERABLES Tete l Result Performing Organization Address City/[facility]/ZIP Co de Phone Number [facility] Department [place] [address] * Magnesium (02/06/2024 9:36 PM MURAL PAINTER) Magnesium 2.1 1.4 - 2.5 mg/dL Blood 02/06/2024 9:36 PM MURAL PAINTER 02/06/2024 11:02 PM MURAL PAINTER Carin Granados MD LAB BLOOD ORDERABLES Tete l Result Performing Organization Address City/[facility]/ZIP Co de Phone Number [facility] Department [place] [address] * (ABNORMAL) Hepatic function panel (02/06/2024 9:36 PM MURAL PAINTER) [facility] Bilirubin, total 1.0 0.1 - 1.2 mg/dL Bilirubin, direct 0.3 0.1 - 0.3 mg/dL [facility] Protein, pl 6.9 6.5 - 8.5 g/dL [facility] Albumin 2.8(L) 3.5 - 5.0 g/dL [facility] Alk phos 316(H) 40 - 130 Units/L [facility] ALT 30 7 - 45 Units/L [facility] AST 80(H) 10 - 45 Units/L [facility] Blood 02/06/2024 9:36 PM MURAL PAINTER 02/06/2024 11:02 PM MURAL PAINTER Carin Granados MD LAB BLOOD ORDERABLES Tete l Result [facility] Department [place] [address] * Basic metabolic panel (02/06/2024 9:36 PM MURAL PAINTER) [facility] Sodium 135 135 - 145 mmol/L Potassium, pl 4.9 3.3 - 4.9 mmol/L [facility] Chloride 100 97 - 110 mmol/L [facility] CO2 31 22 - 32 mmol/L [facility] Anion gap 4 2 - 15 mmol/L [facility] BUN 24 6 - 25 mg/dL [facility] Creatinine 1.04 0.60 - 1.10 mg/dL [facility] Glucose 83 70 - 199 mg/dL [facility] Comment: Interpretive Data Fasting glucose [...] 2022. Calcium 9.0 8.5 - 10.3 mg/dL [facility] Blood 02/06/2024 9:36 PM MURAL PAINTER 02/06/2024 11:02 PM MURAL PAINTER Carin Granados MD LAB BLOOD ORDERABLES Tete l Result [facility] [place] [address] * POCT glucose (02/06/2024 9:32 PM MURAL PAINTER) Glucose, POC 111 70 - 199 mg/dL Blood 02/06/2024 9:32 PM MURAL PAINTER 02/06/2024 9:32 PM MURAL PAINTER Carin Granados MD LAB POCT ORDERABLES - DEV ICE Final Result Performing Organization Address City/[facility]/ZIP Co de Phone Number [facility] [place] [address] * POCT glucose (02/06/2024 5:33 PM MURAL PAINTER) Glucose, POC 90 70 - 199 mg/dL Blood 02/06/2024 5:33 PM MURAL PAINTER 02/06/2024 5:33 PM MURAL PAINTER Carin Granados MD LAB POCT ORDERABLES - DEV ICE Final Result Performing Organization Address City/[facility] Co de Phone Number [facility] [place] [address] * POCT glucose (02/06/2024 11:52 AM MURAL PAINTER) Glucose, POC 104 70 - 199 mg/dL Blood 02/06/2024 11:5 2 AM MURAL PAINTER 02/06/2024 11:52 AM MURAL PAINTER us Carin Granados MD LAB POCT ORDERABLES - DEV ICE Final Result Performing Organization Address [facility] de Phone Number [facility] [place] [address] * POCT glucose (02/06/2024 8:16 AM MURAL PAINTER) Pathologist [facility] Glucose, POC 89 70 - 199 mg/dL Blood 02/06/2024 8:16 AM MURAL PAINTER 02/06/2024 8:16 AM MURAL PAINTER us Carin Granados MD LAB POCT ORDERABLES - DEV ICE Final Result Performing Organization Address [facility] [place] [address] * Troponin I high-sensitivity series (baseline, 2hr, 4hr, 6hr) (02/06/2024 6:53 AM MURAL PAINTER) [facility] Trop I hs <4 <=17 ng/L Comment: Interpretive Data For further hscTnI resources including the diagnostic algorithm and an aid in interpretation, copy and paste this link: [email or web address].testcatalog.org/show/[email or web address] Current Interpretive Data last revised 2019. Blood 02/06/2024 6:53 AM MURAL PAINTER 02/06/2024 7:52 AM MURAL PAINTER us Herrera Orosco MD LAB BLOOD ORDERABLES Final Resu lt Performing Organization Address [facility] [place] [address] * eGFR (02/05/2024 10:32 PM MURAL PAINTER) [facility] eGFR 67 >=60 mL/min/1. 73 m2 Comment: [...] reviewed 2021. Blood 02/05/2024 10:3 2 PM MURAL PAINTER 02/05/2024 11:39 PM MURAL PAINTER us Carin Granados MD LAB BLOOD ORDERABLES Tete palomino Result [facility] Department [place] [address] * Differential, auto (02/05/2024 10:32 PM MURAL PAINTER) Neutrophil abs 4.1 1.5 - 6.5 K/cumm Imm gran abs 0.0 0.0 - 0.1 K/cumm [facility] Lymphocyte abs 0.9 0.8 - 3.3 K/cumm [facility] Monocyte abs 0.8 0.2 - 0.8 K/cumm [facility] Eosinophil abs 0.3 0.0 - 0.5 K/cumm [facility] Basophil abs 0.0 0.0 - 0.1 K/cumm [facility] Neutrophil pct 67.2 % [facility] Comment: Interpretive Data Percent cell count reference ranges are not reported, since discordance with absolute values may lead to misinterpretation of CBC data. Current Interpretive Data was last revised on 2017. Imm gran pct 0.3 % [facility] Comment: Interpretive Data Percent cell count reference ranges are not reported, since discordance with absolute values may lead to misinterpretation of CBC data. Current Interpretive Data was last revised on 2017. Lymphocyte pct 15.0 % [facility] Comment: Interpretive Data Percent cell count reference ranges are not reported, since discordance with absolute values may lead to misinterpretation of CBC data. Current Interpretive Data was last revised on 2017. Monocyte pct 12.3 % [facility] Comment: Interpretive Data Percent cell count reference ranges are not reported, since discordance with absolute values may lead to misinterpretation of CBC data. Current Interpretive Data was last revised on 2017. Eosinophil pct 4.9 % [facility] Comment: Interpretive Data Percent cell count reference ranges are not reported, since discordance with absolute values may lead to misinterpretation of CBC data. Current Interpretive Data was last revised on 2017. Basophil pct 0.3 % [facility] Comment: Interpretive Data Percent cell count reference ranges are not reported, since discordance with absolute values may lead to misinterpretation of CBC data. Current Interpretive Data was last revised on 2017. Blood 02/05/2024 10:3 2 PM MURAL PAINTER 02/05/2024 11:27 PM MURAL PAINTER us Carin Granados MD LAB BLOOD ORDERABLES Tete palomino Result [facility] Department [place] [address] * (ABNORMAL) CBC with auto differential (02/05/2024 10:32 PM MURAL PAINTER) WBC 6.1 3.8 - 9.9 K/cumm Hgb 7.7(L) 11.9 - 15.5 g/dL [facility] Hct 24.4(L) 35.6 - 45.5 % [facility] Plt 228 150 - 400 K/cumm [facility] MPV 9.8 9.1 - 12.3 fL [facility] RBC 2.94(L) 3.90 - 5.20 M/cumm [facility] MCV 83.0 81.3 - 96.4 fL [facility] MCH 26.2(L) 27.1 - 33.3 pg [facility] MCHC 31.6(L) 32.3 - 35.7 g/dL [facility] RDW CV 13.8 11.1 - 14.9 % [facility] RDW SD 42.0 35.7 - 48.1 fL [facility] NRBC abs 0.00 0.00 - 0.01 K/cumm [facility] Blood 02/05/2024 10:3 2 PM MURAL PAINTER 02/05/2024 11:27 PM MURAL PAINTER Carin Granados MD LAB BLOOD ORDERABLES Tete l Result Performing Organization Address [facility] de Phone Number [facility] Department [place] [address] * Phosphorus (02/05/2024 10:32 PM MURAL PAINTER) Phosphorus, pl 3.9 2.3 - 4.5 mg/dL Blood 02/05/2024 10:3 2 PM MURAL PAINTER 02/05/2024 11:39 PM MURAL PAINTER Result [facility] Carin Granados MD LAB BLOOD ORDERABLES Tete l Result Performing Organization Address [facility] de Phone Number [facility] Department [place] [address] * Magnesium (02/05/2024 10:32 PM MURAL PAINTER) Magnesium 2.5 1.4 - 2.5 mg/dL Blood 02/05/2024 10:3 2 PM MURAL PAINTER 02/05/2024 11:39 PM MURAL PAINTER Carin Granados MD LAB BLOOD ORDERABLES Tete l Result Performing Organization Address [facility] Co de Phone Number [facility] Department [place] [address] * (ABNORMAL) Hepatic function panel (02/05/2024 10:32 PM MURAL PAINTER) [facility] Bilirubin, total 0.8 0.1 - 1.2 mg/dL Bilirubin, direct 0.3 0.1 - 0.3 mg/dL [facility] Protein, pl 6.6 6.5 - 8.5 g/dL [facility] Albumin 2.7(L) 3.5 - 5.0 g/dL [facility] Alk phos 288(H) 40 - 130 Units/L [facility] ALT 25 7 - 45 Units/L [facility] AST 65(H) 10 - 45 Units/L [facility] Blood 02/05/2024 10:3 2 PM MURAL PAINTER 02/05/2024 11:39 PM MURAL PAINTER Carin Granados MD LAB BLOOD ORDERABLES Tete l Result Performing Organization Address City/[facility]/ZIP Co de Phone Number [facility] Department [place] [address] * (ABNORMAL) Basic metabolic panel (02/05/2024 10:32 PM MURAL PAINTER) [facility] Sodium 139 135 - 145 mmol/L Potassium, pl 5.4(H) 3.3 - 4.9 mmol/L [facility] Chloride 101 97 - 110 mmol/L [facility] CO2 30 22 - 32 mmol/L [facility] Anion gap 8 2 - 15 mmol/L [facility] BUN 30(H) 6 - 25 mg/dL [facility] Creatinine 1.08 0.60 - 1.10 mg/dL [facility] Glucose 125 70 - 199 mg/dL [facility] Comment: Interpretive Data Fasting glucose [...] 2022. Calcium 8.9 8.5 - 10.3 mg/dL [facility] Blood 02/05/2024 10:3 2 PM MURAL PAINTER 02/05/2024 11:39 PM MURAL PAINTER Carin Granados MD LAB BLOOD ORDERABLES Tete l Result Performing Organization Address City/[facility]/ZIP Co de Phone Number [facility] [place] [address] * POCT glucose (02/05/2024 9:13 PM MURAL PAINTER) Glucose, POC 171 70 - 199 mg/dL Blood 02/05/2024 9:13 PM MURAL PAINTER 02/05/2024 9:13 PM MURAL PAINTER Carin Granados MD LAB POCT ORDERABLES - DEV ICE Final Result Performing Organization Address [facility] Co de Phone Number [facility] Department [place] [address] * POCT glucose (02/05/2024 5:38 PM MURAL PAINTER) Glucose, POC 149 70 - 199 mg/dL Blood 02/05/2024 5:38 PM MURAL PAINTER 02/05/2024 5:38 PM MURAL PAINTER Carin Granados MD LAB POCT ORDERABLES - DEV ICE Final Result [facility] Department [place] [address] * Blood culture Blood (02/05/2024 3:25 PM MURAL PAINTER) Report Final Report: No growth Blood 02/05/2024 3:25 PM MURAL PAINTER 02/05/2024 4:30 PM MURAL PAINTER Narrative [facility] - 02/10/2024 7:00 AM MURAL PAINTER Collection->Peripheral 1. Blood cultures are incubated for [...] organism identification may be performed using the [employer] Gram-Positive Blood Culture Assay. This assay detects microbial DNA in positive blood culture broth via hybridization of target DNA to capture oligonucleotides on a microarray. This assay has been cleared by the [place] Food and Drug Administration and its performance characteristics have been verified by the [facility]. 5. For questions about this culture, contact the Microbiology Laboratory at [phone]. Interpretive data was last revised on 2019. aCrin Granados MD LAB MICROBIOLOGY - GENERA L ORDERABLES Final Result [facility] Department [place] [address] * Blood culture Blood (02/05/2024 3:25 PM MURAL PAINTER) Report Final Report: No growth Blood 02/05/2024 3:25 PM MURAL PAINTER 02/05/2024 4:30 PM MURAL PAINTER Narrative [facility] - 02/10/2024 7:00 AM MURAL PAINTER Collection->Peripheral 1. Blood cultures are incubated for [...] organism identification may be performed using the [employer] Gram-Positive Blood Culture Assay. This assay detects microbial DNA in positive blood culture broth via hybridization of target DNA to capture oligonucleotides on a microarray. This assay has been cleared by the [place] Food and Drug Administration and its performance characteristics have been verified by the [facility]. 5. For questions about this culture, contact the Microbiology Laboratory at [phone]. Interpretive data was last revised on 2019. Carin Granados MD LAB MICROBIOLOGY - GENERA L ORDERABLES Final Result Performing Organization Address [facility] Co de Phone Number [facility] Department [place] [address] * POCT glucose (02/05/2024 2:10 PM MURAL PAINTER) Glucose, POC 170 70 - 199 mg/dL Blood 02/05/2024 2:10 PM MURAL PAINTER 02/05/2024 2:10 PM MURAL PAINTER Carin Granados MD LAB POCT ORDERABLES - DEV ICE Final Result Performing Organization Address [facility] Co de Phone Number [facility] Department [place] [address] * POCT glucose (02/05/2024 9:18 AM MURAL PAINTER) Glucose, POC 88 70 - 199 mg/dL Blood 02/05/2024 9:18 AM MURAL PAINTER 02/05/2024 9:18 AM MURAL PAINTER us Carin Granados MD LAB POCT ORDERABLES - DEV ICE Final Result Performing Organization Address City/State/[facility] Co de Phone Number [facility] Department [place] [address] * Wound Care (02/05/2024 8:16 AM MURAL PAINTER) Narrative Sari Santos DO - 02/05/2024 8:16 AM MURAL PAINTER Andrew Seaman MD 02/05/2024 8:21 AM Wound Care Date/Time: 02/05/2024 8:16 AM Performed by: Andrew Seaman MD Authorized by: Andrew Seaman MD Associated wounds: Wound 12/04/23 Pressure Injury Sacrum Consent: Consent obtained: Verbal Consent given by: Patient Risks, benefits, and alternatives were discussed: yes Risks discussed: Bleeding and infection Alternatives discussed: No treatment [place] protocol: Procedure explained and questions answered to [...] (ABNORMAL) Potassium, whole blood (02/05/2024 8:08 AM MURAL PAINTER) Potassium, bld 5.4(H) 3.3 - 4.9 mmol/L Blood 02/05/2024 8:08 AM MURAL PAINTER 02/05/2024 8:48 AM MURAL PAINTER Ashkan Reyes MD LAB BLOOD ORDERABLES Final Result Performing Organization Address City/[facility]/ZIP Co de Phone Number [facility] Department [place] [address] * (ABNORMAL) Potassium (02/05/2024 7:45 AM MURAL PAINTER) Potassium, pl 5.2(H) 3.3 - 4.9 mmol/L Blood 02/05/2024 7:45 AM MURAL PAINTER 02/05/2024 8:12 AM MURAL PAINTER Narrative [facility] - 02/05/2024 8:32 AM MURAL PAINTER Provider to discontinue after two normal results. Ashkan Reyes MD LAB BLOOD ORDERABLES Final Result Performing Organization Address [facility] Co de Phone Number [facility] Department [place] [address] * POCT glucose (02/05/2024 6:00 AM MURAL PAINTER) Glucose, POC 124 70 - 199 mg/dL Blood 02/05/2024 6:00 AM MURAL PAINTER 02/05/2024 6:00 AM MURAL PAINTER Carin Granados MD LAB POCT ORDERABLES - DEV ICE Final Result Performing Organization Address [facility] Co de Phone Number [facility] [place] [address] * POCT glucose (02/05/2024 5:04 AM MURAL PAINTER) Glucose, POC 119 70 - 199 mg/dL Blood 02/05/2024 5:04 AM MURAL PAINTER 02/05/2024 5:04 AM MURAL PAINTER us Carin Granados MD LAB POCT ORDERABLES - DEV ICE Final Result Performing Organization Address [facility] de Phone Number [facility] [place] [address] * POCT glucose (02/05/2024 4:11 AM MURAL PAINTER) Glucose, POC 105 70 - 199 mg/dL Blood 02/05/2024 4:11 AM MURAL PAINTER 02/05/2024 4:11 AM MURAL PAINTER Carin Granados MD LAB POCT ORDERABLES - DEV ICE Final Result Performing Organization Address [facility] de Phone Number [facility] [place] [address] * ECG 12 lead (02/05/2024 3:22 AM MURAL PAINTER) Ventricular Rate EKG/Min 101 BPM [facility] Atrial Rate 101 BPM [facility] MS-Interval (MSEC) 148 ms [facility] QRS-Interval (MSEC) 82 ms [facility] QT-Interval (MSEC) 338 ms [facility] QTc 438 ms [facility] P [place] 67 degrees [facility] R [place] 21 degrees [facility] T [place] 48 degrees [facility] Diagnosis Sinus tachycardia Otherwise normal ECG When compared with ECG of 21-JAN-2024 15:37, T wave amplitude has increased in Anterior leads Confirmed by KIRSTIN GIVENS M.D ([id number]) on 02/09/2024 11:54:39 AM [facility] 02/05/2024 3:22 AM MURAL PAINTER 02/09/2024 11:54 AM MURAL PAINTER Ashkan Reyes MD ECG ORDERABLES Final Resu lt Performing Organization Address City/[facility]/ZIP Co de Phone Number [facility] * eGFR (02/04/2024 9:38 PM MURAL PAINTER) eGFR 66 >=60 mL/min/1. 73 m2 Comment: [...] last reviewed 2021. Blood 02/04/2024 9:38 PM MURAL PAINTER 02/04/2024 11:21 PM MURAL PAINTER us Carin Granados MD LAB BLOOD ORDERABLES Tete l Result Performing Organization Address [facility] Co de Phone Number [facility] Department [place] [address] * Differential, auto (02/04/2024 9:38 PM MURAL PAINTER) Neutrophil abs 6.2 1.5 - 6.5 K/cumm Imm gran abs 0.1 0.0 - 0.1 K/cumm [facility] Lymphocyte abs 0.9 0.8 - 3.3 K/cumm [facility] Monocyte abs 0.8 0.2 - 0.8 K/cumm [facility] Eosinophil abs 0.4 0.0 - 0.5 K/cumm [facility] Basophil abs 0.0 0.0 - 0.1 K/cumm [facility] Neutrophil pct 74.5 % [facility] Comment: Interpretive Data Percent cell count reference ranges are not reported, since discordance with absolute values may lead to misinterpretation of CBC data. Current Interpretive Data was last revised on 2017. Imm gran pct 0.6 % [facility] Comment: Interpretive Data Percent cell count reference ranges are not reported, since discordance with absolute values may lead to misinterpretation of CBC data. Current Interpretive Data was last revised on 2017. Lymphocyte pct 10.9 % [facility] Comment: Interpretive Data Percent cell count reference ranges are not reported, since discordance with absolute values may lead to misinterpretation of CBC data. Current Interpretive Data was last revised on 2017. Monocyte pct 9.2 % [facility] Comment: Interpretive Data Percent cell count reference ranges are not reported, since discordance with absolute values may lead to misinterpretation of CBC data. Current Interpretive Data was last revised on 2017. Eosinophil pct 4.4 % [facility] Comment: Interpretive Data Percent cell count reference ranges are not reported, since discordance with absolute values may lead to misinterpretation of CBC data. Current Interpretive Data was last revised on 2017. Basophil pct 0.4 % [facility] Comment: Interpretive Data Percent cell count reference ranges are not reported, since discordance with absolute values may lead to misinterpretation of CBC data. Current Interpretive Data was last revised on 2017. Blood 02/04/2024 9:38 PM MURAL PAINTER 02/04/2024 11:22 PM MURAL PAINTER us Carin Granados MD LAB BLOOD ORDERABLES Tete palomino Result [facility] Department [place] [address] * (ABNORMAL) CBC with auto differential (02/04/2024 9:38 PM MURAL PAINTER) WBC 8.3 3.8 - 9.9 K/cumm Hgb 7.9(L) 11.9 - 15.5 g/dL [facility] Hct 25.1(L) 35.6 - 45.5 % [facility] Plt 252 150 - 400 K/cumm [facility] MPV 10.4 9.1 - 12.3 fL [facility] RBC 2.97(L) 3.90 - 5.20 M/cumm [facility] MCV 84.5 81.3 - 96.4 fL [facility] MCH 26.6(L) 27.1 - 33.3 pg [facility] MCHC 31.5(L) 32.3 - 35.7 g/dL [facility] RDW CV 14.1 11.1 - 14.9 % [facility] RDW SD 43.5 35.7 - 48.1 fL [facility] NRBC abs 0.00 0.00 - 0.01 K/cumm [facility] Blood 02/04/2024 9:38 PM MURAL PAINTER 02/04/2024 11:22 PM MURAL PAINTER Carin Granados MD LAB BLOOD ORDERABLES Tete l Result [facility] [place], [place] [id number] * Phosphorus (02/04/2024 9:38 PM MURAL PAINTER) Pathologist [facility] Phosphorus, pl 3.4 2.3 - 4.5 mg/dL Blood 02/04/2024 9:38 PM MURAL PAINTER 02/04/2024 11:21 PM MURAL PAINTER Carin Granados MD LAB BLOOD ORDERABLES Tete l Result [facility] [place] [address] * (ABNORMAL) Magnesium (02/04/2024 9:38 PM MURAL PAINTER) Magnesium 2.6(H) 1.4 - 2.5 mg/dL Blood 02/04/2024 9:38 PM MURAL PAINTER 02/04/2024 11:21 PM MURAL PAINTER us Carin Granados MD LAB BLOOD ORDERABLES Tete l Result Performing Organization Address [facility] Co de Phone Number [facility] [place] [address] * (ABNORMAL) Hepatic function panel (02/04/2024 9:38 PM MURAL PAINTER) Pathologist [facility] Bilirubin, total 0.8 0.1 - 1.2 mg/dL Bilirubin, direct 0.2 0.1 - 0.3 mg/dL [facility] Comment:Reviewed Protein, pl 6.6 6.5 - 8.5 g/dL [facility] Albumin 2.5(L) 3.5 - 5.0 g/dL [facility] Alk phos 268(H) 40 - 130 Units/L [facility] ALT 17 7 - 45 Units/L [facility] AST 61(H) 10 - 45 Units/L [facility] Blood 02/04/2024 9:38 PM MURAL PAINTER 02/04/2024 11:21 PM MURAL PAINTER us Carin Granados MD LAB BLOOD ORDERABLES Tete l Result Performing Organization Address [facility] de Phone Number [facility] Department [place] [address] * (ABNORMAL) Basic metabolic panel (02/04/2024 9:38 PM MURAL PAINTER) Pathologist [facility] Sodium 137 135 - 145 mmol/L Potassium, pl 5.9(H) 3.3 - 4.9 mmol/L [facility] Chloride 103 97 - 110 mmol/L [facility] CO2 28 22 - 32 mmol/L [facility] Anion gap 6 2 - 15 mmol/L [facility] BUN 35(H) 6 - 25 mg/dL [facility] Creatinine 1.10 0.60 - 1.10 mg/dL [facility] Glucose 92 70 - 199 mg/dL [facility] Comment: Interpretive Data Fasting glucose [...] 2022. Calcium 8.5 8.5 - 10.3 mg/dL [facility] Blood 02/04/2024 9:38 PM MURAL PAINTER 02/04/2024 11:21 PM MURAL PAINTER Carin Granados MD LAB BLOOD ORDERABLES Tete l Result Performing Organization Address [facility] de Phone Number [facility] Department [place] [address] * POCT glucose (02/04/2024 9:04 PM MURAL PAINTER) Glucose, POC 105 70 - 199 mg/dL Blood 02/04/2024 9:04 PM MURAL PAINTER 02/04/2024 9:04 PM MURAL PAINTER Result [facility] Carin Granados MD LAB POCT ORDERABLES - DEV ICE Final Result Performing Organization Address [facility] de Phone Number [facility] [place] [address] * POCT glucose (02/04/2024 5:12 PM MURAL PAINTER) Glucose, POC 108 70 - 199 mg/dL Blood 02/04/2024 5:12 PM MURAL PAINTER 02/04/2024 5:12 PM MURAL PAINTER Carin Granados MD LAB POCT ORDERABLES - DEV ICE Final Result Performing Organization Address [facility] de Phone Number [facility] [place] [address] * POCT glucose (02/04/2024 11:56 AM MURAL PAINTER) Glucose, POC 104 70 - 199 mg/dL Blood 02/04/2024 11:5 6 AM MURAL PAINTER 02/04/2024 11:56 AM MURAL PAINTER Carin Granados MD LAB POCT ORDERABLES - DEV ICE Final Result Performing Organization Address [facility] [place] [address] * (ABNORMAL) Hemoglobin and hematocrit (02/04/2024 11:16 AM MURAL PAINTER) Pathologist [facility] Hgb 7.8(L) 11.9 - 15.5 g/dL Hct 24.2(L) 35.6 - 45.5 % [facility] Blood 02/04/2024 11:1 6 AM MURAL PAINTER 02/04/2024 12:15 PM MURAL PAINTER Carin Granados MD LAB BLOOD ORDERABLES Tete l Result Performing Organization Address [facility] [place] [address] * MRI Sacrum Coccyx WO Contrast (02/04/2024 10:53 AM MURAL PAINTER) Anatomical Region Laterality Modality Pelvis N/A Magnetic Resonan ce 02/04/2024 1:34 PM MURAL PAINTER Impressions 02/04/2024 2:11 PM MURAL PAINTER 1. 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 2. 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 Dictated by: Patric Schmitt D.O. The radiology attending physician has personally reviewed this study, and had reviewed and/or edited this written report and agrees with it. Electronically signed by: Jayme Page M.D. Narrative 02/04/2024 2:11 PM MURAL PAINTER EXAMINATION: MRI SACRUM COCCYX WO CONTRAST HISTORY: [...] Result * Transfuse RBC (02/04/2024 7:44 AM MURAL PAINTER) Blood Mariano Eid MD BLOOD TRANSFUSION ORDERABLES F inal Result Performing Organization Address [facility] de Phone Number [facility] [place] [address] * POCT glucose (02/04/2024 7:44 AM MURAL PAINTER) Glucose, POC 107 70 - 199 mg/dL Blood 02/04/2024 7:44 AM MURAL PAINTER 02/04/2024 7:44 AM MURAL PAINTER Carin Granados MD LAB POCT ORDERABLES - DEV ICE Final Result Performing Organization Address [facility] de Phone Number [facility] [place] [address] * Type and screen (02/04/2024 1:27 AM MURAL PAINTER) ABO Rh O Positive Ruiz, indirect Negative [facility] Blood 02/04/2024 1:27 AM MURAL PAINTER 02/04/2024 2:20 AM MURAL PAINTER Narrative [facility] 02/04/2024 3:56 AM MURAL PAINTER Has the patient had Daratumumab or Isatuximab in the past 6 months?->Unknown Mariano Eid MD LAB BLOOD BANK TEST ORDERABLES Final Result Performing Organization Address City/[facility] Co de Phone Number [facility] [place] [address] * Prepare RBC: 1 Units (02/04/2024 12:43 AM MURAL PAINTER) Product code [id number] Unit Number [id number] [facility] Product Blood Type OPOS [facility] Dispense Status PRESUMED TRANSFUSED [facility] Blood 02/04/2024 12:4 3 AM MURAL PAINTER 02/04/2024 12:43 AM MURAL PAINTER Narrative [facility] - 02/04/2024 4:01 PM MURAL PAINTER Are special requirements needed? (All products are leukoreduced and CMV- safe)- >No Date required:-[id number] LRRBC # of [id number] Reasons:-Hgb <7 g/dL} Mariano Eid MD BLOOD BANK PRODUCT ORDERABLES Final Result Performing Organization Address City/[facility] Co de Phone Number [facility] [place] [address] * (ABNORMAL) eGFR (02/03/2024 9:45 PM MURAL PAINTER) eGFR 58(L) >=60 mL/min/1. 73 m2 Comment: [...] last reviewed 2021. Blood 02/03/2024 9:45 PM MURAL PAINTER 02/03/2024 10:44 PM MURAL PAINTER us Meme Santana MD LAB BLOOD ORDERABLES Fin al Result [facility] Department [place] [address] * Differential, auto (02/03/2024 9:45 PM MURAL PAINTER) Neutrophil abs 4.8 1.5 - 6.5 K/cumm Imm gran abs 0.0 0.0 - 0.1 K/cumm [facility] Lymphocyte abs 1.0 0.8 - 3.3 K/cumm [facility] Monocyte abs 0.8 0.2 - 0.8 K/cumm [facility] Eosinophil abs 0.2 0.0 - 0.5 K/cumm [facility] Basophil abs 0.0 0.0 - 0.1 K/cumm [facility] Neutrophil pct 70.6 % [facility] Comment: Interpretive Data Percent cell count reference ranges are not reported, since discordance with absolute values may lead to misinterpretation of CBC data. Current Interpretive Data was last revised on 2017. Imm gran pct 0.4 % [facility] Comment: Interpretive Data Percent cell count reference ranges are not reported, since discordance with absolute values may lead to misinterpretation of CBC data. Current Interpretive Data was last revised on 2017. Lymphocyte pct 14.7 % [facility] Comment: Interpretive Data Percent cell count reference ranges are not reported, since discordance with absolute values may lead to misinterpretation of CBC data. Current Interpretive Data was last revised on 2017. Monocyte pct 11.0 % [facility] Comment: Interpretive Data Percent cell count reference ranges are not reported, since discordance with absolute values may lead to misinterpretation of CBC data. Current Interpretive Data was last revised on 2017. Eosinophil pct 3.2 % [facility] Comment: Interpretive Data Percent cell count reference ranges are not reported, since discordance with absolute values may lead to misinterpretation of CBC data. Current Interpretive Data was last revised on 2017. Basophil pct 0.1 % [facility] Comment: Interpretive Data Percent cell count reference ranges are not reported, since discordance with absolute values may lead to misinterpretation of CBC data. Current Interpretive Data was last revised on 2017. Blood 02/03/2024 9:45 PM MURAL PAINTER 02/03/2024 10:44 PM MURAL PAINTER us Meme Santana MD LAB BLOOD ORDERABLES Fin al Result [facility] Department [place] [address] * (ABNORMAL) CBC with auto differential (02/03/2024 9:45 PM MURAL PAINTER) Pathologist [facility] WBC 6.8 3.8 - 9.9 K/cumm Hgb 6.7(L) 11.9 - 15.5 g/dL [facility] Hct 21.5(L) 35.6 - 45.5 % [facility] Plt 194 150 - 400 K/cumm [facility] MPV 10.3 9.1 - 12.3 fL [facility] RBC 2.56(L) 3.90 - 5.20 M/cumm [facility] MCV 84.0 81.3 - 96.4 fL [facility] MCH 26.2(L) 27.1 - 33.3 pg [facility] MCHC 31.2(L) 32.3 - 35.7 g/dL [facility] RDW CV 14.2 11.1 - 14.9 % [facility] RDW SD 43.0 35.7 - 48.1 fL [facility] NRBC abs 0.00 0.00 - 0.01 K/cumm [facility] Blood 02/03/2024 9:45 PM MURAL PAINTER 02/03/2024 10:44 PM MURAL PAINTER Carin Granados MD LAB BLOOD ORDERABLES Tete l Result Performing Organization Address [facility] Co de Phone Number [facility] [place] [address] * Phosphorus (02/03/2024 9:45 PM MURAL PAINTER) Phosphorus, pl 3.6 2.3 - 4.5 mg/dL Blood 02/03/2024 9:45 PM MURAL PAINTER 02/03/2024 10:44 PM MURAL PAINTER Carin Granados MD LAB BLOOD ORDERABLES Tete l Result Performing Organization Address [facility] de Phone Number [facility] [place] [address] * (ABNORMAL) Magnesium (02/03/2024 9:45 PM MURAL PAINTER) Pathologist [facility] Magnesium 2.9(H) 1.4 - 2.5 mg/dL Blood 02/03/2024 9:45 PM MURAL PAINTER 02/03/2024 10:44 PM MURAL PAINTER Result [facility] Carin Granados MD LAB BLOOD ORDERABLES Tete l Result Performing Organization Address [facility] Co de Phone Number [facility] [place] [address] * (ABNORMAL) Hepatic function panel (02/03/2024 9:45 PM MURAL PAINTER) Bilirubin, total 0.6 0.1 - 1.2 mg/dL Bilirubin, direct <0.2 0.1 - 0.3 mg/dL [facility] Comment:Reviewed Protein, pl 6.1(L) 6.5 - 8.5 g/dL [facility] Albumin 2.4(L) 3.5 - 5.0 g/dL [facility] Alk phos 228(H) 40 - 130 Units/L [facility] ALT 16 7 - 45 Units/L [facility] AST 36 10 - 45 Units/L [facility] Blood 02/03/2024 9:45 PM MURAL PAINTER 02/03/2024 10:44 PM MURAL PAINTER us Carin Granados MD LAB BLOOD ORDERABLES Tete l Result Performing Organization Address City/[facility]/ZIP Co de Phone Number [facility] Department [place] [address] * (ABNORMAL) Basic metabolic panel (02/03/2024 9:45 PM MURAL PAINTER) Pathologist [facility] Sodium 139 135 - 145 mmol/L Potassium, pl 5.2(H) 3.3 - 4.9 mmol/L [facility] Chloride 104 97 - 110 mmol/L [facility] CO2 30 22 - 32 mmol/L [facility] Anion gap 5 2 - 15 mmol/L [facility] BUN 31(H) 6 - 25 mg/dL [facility] Creatinine 1.22(H) 0.60 - 1.10 mg/dL [facility] Glucose 170 70 - 199 mg/dL [facility] Comment: Interpretive Data Fasting glucose [...] 2022. Calcium 8.2(L) 8.5 - 10.3 mg/dL [facility] Blood 02/03/2024 9:45 PM MURAL PAINTER 02/03/2024 10:44 PM MURAL PAINTER us Carin Granados MD LAB BLOOD ORDERABLES [place] [address] * POCT glucose (02/03/2024 9:39 PM MURAL PAINTER) Glucose, POC 190 70 - 199 mg/dL Blood 02/03/2024 9:39 PM MURAL PAINTER 02/03/2024 9:39 PM MURAL PAINTER us Carin Granados MD LAB POCT ORDERABLES - DEV ICE Final Result Performing Organization Address [facility] [place] [address] * POCT glucose (02/03/2024 5:47 PM MURAL PAINTER) Glucose, POC 131 70 - 199 mg/dL Blood 02/03/2024 5:47 PM MURAL PAINTER 02/03/2024 5:47 PM MURAL PAINTER us Carin Granados MD LAB POCT ORDERABLES - DEV ICE Final Result Performing Organization Address [facility] Co de Phone Number [facility] [place] [address] * POCT glucose (02/03/2024 2:37 PM MURAL PAINTER) Glucose, POC 138 70 - 199 mg/dL Blood 02/03/2024 2:37 PM MURAL PAINTER 02/03/2024 2:37 PM MURAL PAINTER us Carin Granados MD LAB POCT ORDERABLES - DEV ICE Final Result Performing Organization Address [facility] [place] [address] * CT Abdomen Pelvis W Contrast (02/03/2024 10:03 AM MURAL PAINTER) Anatomical Region Laterality Modality Body N/A Computed Tomogra phy 02/03/2024 10:5 0 AM MURAL PAINTER Impressions 02/03/2024 12:25 PM MURAL PAINTER 1. Improving left upper pole and left [...] Zeke Chris M.D. Narrative 02/03/2024 12:25 PM MURAL PAINTER EXAMINATION: Computed tomography of the abdomen and [...] esult * POCT glucose (02/03/2024 9:24 AM MURAL PAINTER) Glucose, POC 131 70 - 199 mg/dL Blood 02/03/2024 9:24 AM MURAL PAINTER 02/03/2024 9:24 AM MURAL PAINTER Carin Granados MD LAB POCT ORDERABLES - DEV ICE Final Result [facility] Department [place] [address] * eGFR (02/02/2024 10:40 PM MURAL PAINTER) Pathologist [facility] eGFR 75 >=60 mL/min/1. 73 m2 Comment: [...] reviewed 2021. Blood 02/02/2024 10:4 0 PM MURAL PAINTER 02/03/2024 12:36 AM MURAL PAINTER us Meme Santana MD LAB BLOOD ORDERABLES Fin al Result [facility] Department [place] [address] * Differential, auto (02/02/2024 10:40 PM MURAL PAINTER) Pathologist [facility] Neutrophil abs 5.7 1.5 - 6.5 K/cumm Imm gran abs 0.0 0.0 - 0.1 K/cumm [facility] Lymphocyte abs 1.1 0.8 - 3.3 K/cumm [facility] Monocyte abs 0.8 0.2 - 0.8 K/cumm [facility] Eosinophil abs 0.3 0.0 - 0.5 K/cumm [facility] Basophil abs 0.0 0.0 - 0.1 K/cumm [facility] Neutrophil pct 71.1 % [facility] Comment: Interpretive Data Percent cell count reference ranges are not reported, since discordance with absolute values may lead to misinterpretation of CBC data. Current Interpretive Data was last revised on 2017. Imm gran pct 0.4 % [facility] Comment: Interpretive Data Percent cell count reference ranges are not reported, since discordance with absolute values may lead to misinterpretation of CBC data. Current Interpretive Data was last revised on 2017. Lymphocyte pct 14.1 % [facility] Comment: Interpretive Data Percent cell count reference ranges are not reported, since discordance with absolute values may lead to misinterpretation of CBC data. Current Interpretive Data was last revised on 2017. Monocyte pct 10.4 % [facility] Comment: Interpretive Data Percent cell count reference ranges are not reported, since discordance with absolute values may lead to misinterpretation of CBC data. Current Interpretive Data was last revised on 2017. Eosinophil pct 3.9 % [facility] Comment: Interpretive Data Percent cell count reference ranges are not reported, since discordance with absolute values may lead to misinterpretation of CBC data. Current Interpretive Data was last revised on 2017. Basophil pct 0.1 % [facility] Comment: Interpretive Data Percent cell count reference ranges are not reported, since discordance with absolute values may lead to misinterpretation of CBC data. Current Interpretive Data was last revised on 2017. Blood 02/02/2024 10:4 0 PM MURAL PAINTER 02/03/2024 12:04 AM MURAL PAINTER us Meme Santana MD LAB BLOOD ORDERABLES Fin al Result [facility] Department [place] [address] * (ABNORMAL) CBC with auto differential (02/02/2024 10:40 PM MURAL PAINTER) WBC 8.0 3.8 - 9.9 K/cumm Hgb 7.2(L) 11.9 - 15.5 g/dL [facility] Hct 22.5(L) 35.6 - 45.5 % [facility] Plt 190 150 - 400 K/cumm [facility] MPV 10.3 9.1 - 12.3 fL [facility] RBC 2.72(L) 3.90 - 5.20 M/cumm [facility] MCV 82.7 81.3 - 96.4 fL [facility] MCH 26.5(L) 27.1 - 33.3 pg [facility] MCHC 32.0(L) 32.3 - 35.7 g/dL [facility] RDW CV 14.0 11.1 - 14.9 % [facility] RDW SD 42.1 35.7 - 48.1 fL [facility] NRBC abs 0.00 0.00 - 0.01 K/cumm [facility] Blood 02/02/2024 10:4 0 PM MURAL PAINTER 02/03/2024 12:04 AM MURAL PAINTER Carin Granados MD LAB BLOOD ORDERABLES Tete l Result [facility] [place] [address] * Phosphorus (02/02/2024 10:40 PM MURAL PAINTER) Phosphorus, pl 2.8 2.3 - 4.5 mg/dL Blood 02/02/2024 10:4 0 PM MURAL PAINTER 02/03/2024 12:36 AM MURAL PAINTER Carin Granados MD LAB BLOOD ORDERABLES Tete l Result [facility] [place] [address] * (ABNORMAL) Magnesium (02/02/2024 10:40 PM MURAL PAINTER) Magnesium 2.6(H) 1.4 - 2.5 mg/dL Blood 02/02/2024 10:4 0 PM MURAL PAINTER 02/03/2024 12:36 AM MURAL PAINTER Carin Granados MD LAB BLOOD ORDERABLES Tete l Result Performing Organization Address [facility] Co de Phone Number [facility] [place] [address] * (ABNORMAL) Hepatic function panel (02/02/2024 10:40 PM MURAL PAINTER) Bilirubin, total 0.7 0.1 - 1.2 mg/dL Bilirubin, direct 0.2 0.1 - 0.3 mg/dL [facility] Protein, pl 6.4(L) 6.5 - 8.5 g/dL [facility] Albumin 2.6(L) 3.5 - 5.0 g/dL [facility] Alk phos 241(H) 40 - 130 Units/L [facility] ALT 13 7 - 45 Units/L [facility] AST 35 10 - 45 Units/L [facility] Blood 02/02/2024 10:4 0 PM MURAL PAINTER 02/03/2024 12:36 AM MURAL PAINTER Carin Granados MD LAB BLOOD ORDERABLES Tete l Result Performing Organization Address [facility] de Phone Number [facility] [place] [address] * (ABNORMAL) Basic metabolic panel (02/02/2024 10:40 PM MURAL PAINTER) Sodium 138 135 - 145 mmol/L Potassium, pl 5.0(H) 3.3 - 4.9 mmol/L [facility] Chloride 102 97 - 110 mmol/L [facility] CO2 30 22 - 32 mmol/L [facility] Anion gap 6 2 - 15 mmol/L [facility] BUN 26(H) 6 - 25 mg/dL [facility] Creatinine 0.99 0.60 - 1.10 mg/dL [facility] Glucose 135 70 - 199 mg/dL [facility] Comment: Interpretive Data Fasting glucose [...] 2022. Calcium 8.4(L) 8.5 - 10.3 mg/dL [facility] Blood 02/02/2024 10:4 0 PM MURAL PAINTER 02/03/2024 12:36 AM MURAL PAINTER Carin Granados MD LAB BLOOD ORDERABLES Tete l Result Performing Organization Address [facility]/ZIP Co de Phone Number [facility] Department [place] [address] * POCT glucose (02/02/2024 8:25 PM MURAL PAINTER) Glucose, POC 173 70 - 199 mg/dL Blood 02/02/2024 8:25 PM MURAL PAINTER 02/02/2024 8:25 PM MURAL PAINTER Carin Granados MD LAB POCT ORDERABLES - DEV ICE Final Result Performing Organization Address [facility] Co de Phone Number [facility] Department [place] [address] * (ABNORMAL) Hemoglobin and hematocrit (02/02/2024 5:56 PM MURAL PAINTER) Hgb 7.6(L) 11.9 - 15.5 g/dL Hct 23.2(L) 35.6 - 45.5 % [facility] Blood 02/02/2024 5:56 PM MURAL PAINTER 02/02/2024 6:12 PM MURAL PAINTER Carin Granados MD LAB BLOOD ORDERABLES [place] [address] * POCT glucose (02/02/2024 4:53 PM MURAL PAINTER) Glucose, POC 172 70 - 199 mg/dL Blood 02/02/2024 4:53 PM MURAL PAINTER 02/02/2024 4:53 PM MURAL PAINTER Carin Granados MD LAB POCT ORDERABLES - DEV ICE Final Result Performing Organization Address [facility] [place] [address] * Transfuse RBC (02/02/2024 2:55 PM MURAL PAINTER) Blood Carin Granados MD BLOOD TRANSFUSION ORDERAB LES Final Result Performing Organization Address City/[facility]/[place] [address] * POCT glucose (02/02/2024 12:56 PM MURAL PAINTER) Glucose, POC 162 70 - 199 mg/dL Blood 02/02/2024 12:5 6 PM MURAL PAINTER 02/02/2024 12:56 PM MURAL PAINTER Carin Granados MD LAB POCT ORDERABLES - DEV ICE Final Result Performing Organization Address [facility] [place] [address] * POCT glucose (02/02/2024 9:48 AM MURAL PAINTER) Glucose, POC 126 70 - 199 mg/dL Blood 02/02/2024 9:48 AM MURAL PAINTER 02/02/2024 9:48 AM MURAL PAINTER us Carin Granados MD LAB POCT ORDERABLES - DEV ICE Final Result Performing Organization Address [facility] de Phone Number [facility] [place] [address] * Hepatitis panel, acute Blood (01/27/2024 9:00 PM MURAL PAINTER) Hep A IgM Nonreactive Nonreactive Hep B core IgM Nonreactive Nonreactive [facility] Hep C Ab Nonreactive Nonreactive [facility] Comment:Antibodies to HCV no t detected. Does NOT exclude the possibility of recent exposure to HCV. Current interpretive data was last revised on 21 HepBsAg Nonreactive Nonreactive [facility] Blood 01/27/2024 9:00 PM MURAL PAINTER 01/27/2024 9:44 PM MURAL PAINTER us Sheldon Duran MD LAB MICROBIOLOGY - GENERA L ORDERABLES Final Result Performing Organization Address [facility] de Phone Number [facility] Department [place] [address] * (ABNORMAL) Lipid panel (01/26/2024 11:33 PM MURAL PAINTER) Cholesterol 137 30 - 199 mg/dL Comment: [...] revised on 2017. Triglycerides 171(H) <=149 mg/dL [facility] Comment: Interpretive Data Ages < or [...] revised on 2017. HDL 28(L) >=40 mg/dL [facility] Comment: Interpretive Data Ages < or [...] on 2017. LDL, calculated 79 <=129 mg/dL [facility] Comment: Interpretive Data Ages < or [...] revised on 2023. Non-HDL Cholesterol 109 mg/dL [facility] Comment: Interpretive Data Ages < or [...] last revised on 2017. Chol/HDL ratio 5 [facility] Blood 01/26/2024 11:3 3 PM MURAL PAINTER 01/27/2024 12:31 AM MURAL PAINTER Sheldon Duran MD LAB BLOOD ORDERABLES Tete l Result [facility] Department [place] [address] * (ABNORMAL) Hemoglobin A1c (12/01/2023 6:48 PM CDT) Hgb A1C 10.6(H) 4.0 - 5.6 % Estimated Average Glucose 258 mg/dL [facility] Comment: The ADA recommends reporting an estimated Average Glucose (eAG) with all Hemoglobin A1c results using the equation derived from a study of 507 normal and diabetic adults. Minority populations were underrepresented and children were not included. (Diabetes Care 31:1232-9519, 2008). The eAG is not equivalent to a fasting glucose. 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 Coli. Not eligible for review. Multiple wounds that require cultures for discontinuation. Kyler Child 02/02/2024 01/09/2024 01/09/2024 Insurance Advance Directives For more information, please contact: [phone] Documents on File Type Date Recorded Patient Car Manager Expl anation ADVANCE DIRECTIVE 02/17/2024 11:22 AM POW ER OF ANIMAL CARE WORKER-MEDICAL ADVANCE DIRECTIVE 02/03/2024 2:17 PM MARELN R OF ANIMAL CARE WORKER-MEDICAL * Full Code (Latest Code Status on [...] Health Care Agent Yadi Sanchez Sister [facility] Health Care Agent Care Teams Label Stitcher Relationship Specialty Start Date End Date Barbara Oliva MD [address] [place] [id number] PCP - General Gastroenterology 12/02/23 Miscellaneous, Not In File 01/03/24
--- OUTSIDE RECORDS SUMMARY | 2024-05-04 13:31 | XMS_ITS | Clinical Summary ---
Author Organization [facility] Address [address] [place] [address] Care Team Providers Care Liquid Sugar Melter Name Role Phone Malika Campbell PINBALL MACHINE REPAIRER-MED DIR Primary Care Provider [phone] Source Comments [facility],non-owned Affiliates and Associated Physician Practices is amultiple site organization consisting of ambulatory clinics and hospital sitesin [place], [place], [place] and [place]. This disclosure is being madepursuant to the Care Everywhere program and may not contain all information available regarding this patient. Last updated 17.[facility] Allergies Active Allergy Reactions Criticality Noted Date [...] Comments Blood Pressure 126/83 03/24/2022 4:09 PM CHEESE PACKER Pulse 96 03/24/2022 4:09 PM CHEESE PACKER Temperature 35.9 C (96.7 F) 03/24/2022 4:09 PM CHEESE PACKER Respiratory Rate 18 03/24/2022 4:09 PM CHEESE PACKER Oxygen Saturation 100% 03/24/2022 4:09 PM CHEESE PACKER Inhaled Oxygen Concentration - - Weight 84.8 kg (187 lb) 04/09/2022 11:15 AM CHEESE PACKER Height 170.2 cm (5' 7 ) 01/07/2022 [...] Management General On track( 023 11:22 AM CHEESE PACKER) David Shook, RN Note: Expected end date: Interventions: Take all medications as prescribed Let your doctor know right away about any changes in your medications Make sure to request a refill of your medication at least one week prior to your last dose Procedures Procedure Name Priority Date/Time Associated Diagnosis Comments COMPREHENSIVE METABOLIC PANEL STAT 03/24/2022 4:51 PM CHEESE PACKER HEMOGLOBIN A1C Routine 09/14/2020 3:05 AM CDT HEPATITIS C ANTIBODY Routine 12/12/2019 9:51 AM CDT Cirrhosis of liver without ascites, unspecified hepatic cirrhosis type (HCC) from Last 3 Months or Most Recently Relevant to Health Maintenance Results * (ABNORMAL) COMPREHENSIVE METABOLIC PANEL (03/24/2022 4:51 PM CHEESE PACKER) BUN 10 7 - 26 mg/dL 03/24/2022 5:42 PM [facility] Creatinine 0.55(L) 0.56 - 0.96 mg/dL 03/24/2022 5:42 PM [facility] Sodium 134(L) 136 - 145 mmol/L 03/24/2022 5:42 PM [facility] Potassium 3.8 3.5 - 4.5 mmol/L 03/24/2022 5:42 PM [facility] Chloride 94(L) 98 - 107 mmol/L 03/24/2022 5:42 PM [facility] CO2 25 22 - 29 mmol/L 03/24/2022 5:42 PM [facility] Glucose 606(HH) 70 - 115 mg/dL 03/24/2022 5:42 PM [facility] Calcium 9.0 8.4 - 10.2 mg/dL 03/24/2022 5:42 PM [facility] Protein Total 7.2 6.0 - 8.3 g/dL 03/24/2022 5:42 PM [facility] Albumin 3.5 3.4 - 5.0 g/dL 03/24/2022 5:42 PM [facility] Bilirubin Total 0.7 0.2 - 1.2 mg/dL 03/24/2022 5:42 PM [facility] Alkaline Phosphatase 127 40 - 150 U/L 03/24/2022 5:42 PM [facility] ALT 19 5 - 55 U/L 03/24/2022 5:42 PM [facility] AST 19 5 - 34 U/L 03/24/2022 5:42 PM [facility] Anion Gap 19(H) 8 - 18 03/24/2022 5:42 PM [facility] BUN/Creatinine Ratio 18 7 - 23 03/24/2022 5:42 PM [facility] Osmolality Calculated 305(H) 270 - 300 mOsm/kg 03/24/2022 5:42 PM [facility] Albumin/Globulin Ratio 0.9(L) 1.1 - 2.3 03/24/2022 5:42 PM [facility] eGFR by CKD-EPI >90 >=90 mL/min/1.7 3 m2 03/24/2022 5:42 PM [facility] Blood BLOOD SPECIMEN / Unknown Venipuncture / Unknown 03/24/2022 4:51 PM CHEESE PACKER 03/24/2022 5:03 PM CHEESE PACKER Deonna Mukherjee PA-C LAB - CHEMISTRY OR DERABLES Performing Organization Address [facility]/State/[facility] Co de Phone Number [facility] [address] [place] [address], [facility] [phone] * (ABNORMAL) HEMOGLOBIN A1C (09/14/2020 3:05 AM CDT) Hemoglobin A1c 7.0(H) 4.2 - 5.6 % 09/14/2020 4:08 AM CDT -[facility] Estimated Average Glucose 154 mg/dL 09/14/2020 4:08 AM CDT [facility] Blood BLOOD SPECIMEN / Unknown Lab Venipuncture / Unknown 09/14/2020 3:05 AM CDT 09/14/2020 3:37 AM CDT Narrative [facility] - 09/14/2020 4:08 AM CDT The following cutoff levels are recommended by [place] [employer]. A1c > 6.5% : considered [...] Pink MD LAB - CHEMISTRY ORD ERABLES [facility] [address] [place] [address] * HEPATITIS C ANTIBODY (12/12/2019 9:51 AM CDT) [facility] Hepatitis C Antibody Non-react abdirahman Srivastava-regissel vance 12/12/2019 12:07 PM CDT [facility] Comment:Hepatitis C Antibody screen indicates no serologic [...] CDT 12/12/2019 11:02 AM CDT Abby Jaquez ANKIT-ERIC LAB - CHEMI STRY ORDERABLES [facility] [address] [place] [address], [facility] [phone] from Last 3 Months or Most Recently Relevant to Health Maintenance Advance Directives * Full Code (Latest Code Status on File) Date Activated Date Inactivated Comments 09/13/2020 4:58 AM 09/14/2020 9:57 AM Care Teams Liquid Sugar Melter Relationship Specialty Start Date End Date Malika Campbell APRN-CNP [address] [place] [phone] PCP - General 04/09/22
--- OUTSIDE RECORDS SUMMARY | 2024-05-04 13:31 | XMS_ITS | Encounter Summary ---
Author Organization [facility] Address [address] [place] [address] Care Team Providers Care Ribbing Machine Operator Name Role Phone Unavailable Primary Care Provider Unavailabl e Reason for Visit * Reason Onset Date Comments Osteomylitis of the 2nd toe 11/15/2023 Spok e w/Karla @ Dr. Eller's exchange Encounter Details Date Type Department Care Team (Late st Contact Info) Description 11/15/2023 Telephone [facility] Emergency [address] [place] [address] [place] [address] [place] [address] Osteomylitis of the 2nd toe (Spoke w/Karla @ Dr. Eller's exchange) Social History Tobacco Use Types Packs/Day Years Used Date Smoking Tobacco: Every Day Cigarettes 1 2.1 Started: 2022 Alcohol Use Standard Drinks/Week Comments Not Currently 0 (1 standard drink = 0.6 oz pur e alcohol) Feeling Safe Answer Date Recorded Are you in a relationship wi th someone who hurts you emotionally and/or physically? No 11/16/2023 Food Insecurity Answer Date Recorded Social/Environmental Concerns No concerns Transportation Needs Answer Date Record ed Social/Environmental Concerns No concerns Housing Stability Answer Date Recorded Social/Environmental Concerns No concerns Utility Needs Answer Date Recorded Social/Environmental Concerns No concerns Comments Unknown Sex and Gender Information Value Date Recorded Sex Assigned at Not on file Legal Sex Female 4:43 PM CDT Gender Identity Not on file Sexual Orientation Not on file documented as of this encounter Plan of Treatment Not on file documented as of this encounter Visit Diagnoses Not on filedocumented in this encounter Additional Health Concerns Infection Onset Date Last Indicated Resolved Time MRSA Comment:12/11/2023, 11/16/2023 left 2nd toe 11/16/2023 12/11/2023 01/10/2024 1:16 AM C DT R/O C. diff 12/10/2023 12/10/2023 12/10/2023 8:32 AM CDT documented as of this encounter
--- OUTSIDE RECORDS SUMMARY | 2024-05-04 13:31 | XMS_ITS | Encounter Summary ---
Author Organization [facility] Address [address] [place] [address] Care Team Providers Care Pet Handler Name Role Phone Unavailable Primary Care Provider Unavailabl e Reason for Visit * Reason Onset Date Comments left ft wound infection 12/10/2023 Left RN # and msg to Dr. Speedy zabala Encounter Details Date Type Department Care Team (Late st Contact Info) Description 12/10/2023 Telephone [facility] Admitting [address] [place] [address] [place] [address] [place] [address] left ft wound infection (Left RN # and msg to Dr. Speedy zabala) Social History Tobacco Use Types Packs/Day Years Used Date Smoking Tobacco: Every Day Cigarettes 1 2.1 Started: 2022 Alcohol Use Standard Drinks/Week Comments Not Currently 0 (1 standard drink = 0.6 oz pur e alcohol) Feeling Safe Answer Date Recorded Are you in a relationship wi th someone who hurts you emotionally and/or physically? Patient unable to answer 12/13/2023 Food Insecurity Answer Date Recorded Social/Environmental Concerns No concerns Transportation Needs Answer Date Record ed Social/Environmental Concerns No concerns Housing Stability Answer Date Recorded Social/Environmental Concerns No concerns Utility Needs Answer Date Recorded Social/Environmental Concerns No concerns Comments No Sex and Gender Information Value [...]
--- OUTSIDE RECORDS SUMMARY | 2024-05-04 13:31 | XMS_ITS | Encounter Summary ---
Author Organization [facility] Address [address] [place] [address] Care Team Providers Care Senior Planning Manager Name Role Phone Unavailable Primary Care Provider Unavailabl e Reason for Visit * Reason Onset Date Comments Hoarse weak voice prolonged post extubation; please eval an 12/19/[address] REGAN OFFICE Encounter Details Date Type Department Care Team (Late st Contact Info) Description 12/19/2023 Telephone [facility] Admitting [address] [place] [address] Alton Moreno Scribe Hoarse weak voice prolonged post extubation; please eval an (VM @ DR. REGAN OFFICE) Social History Tobacco Use Types Packs/Day Years [...] 11/16/2023 12/11/2023 01/10/2024 1:16 AM C DT documented as of this encounter
--- OUTSIDE RECORDS SUMMARY | 2024-05-04 13:31 | XMS_ITS | Encounter Summary ---
Author Organization [facility] Address [address] [place] [address] Care Team Providers Care Ornamental Iron Worker Name Role Phone Debra Ramires GOLD MINER-COMPOSING ROOM SUPERVISOR Primary Care Provider Malika Campbell GOLD MINER-COMPOSING ROOM SUPERVISOR Primary Care Provider [phone] Debra Ramires GOLD MINER-COMPOSING ROOM SUPERVISOR Primary Care Provider Malika Campbell GOLD MINER-COMPOSING ROOM SUPERVISOR Primary Care Provider [phone] Malika Campbell GOLD MINER-COMPOSING ROOM SUPERVISOR Primary Care Provider [phone] Encounter Details Date Type Department Care Team (Late st Contact Info) Description 10/02/2017 Ophth Exam [facility] [place] [address] Carmelo Olsen MD [facility] [place] [address] Social History Tobacco Use Types Packs/Day Years [...] on filedocumented in this encounter Care Teams Ornamental Iron Worker Relationship Specialty Start Date End Date Debra Ramires APRN-COMPOSING ROOM SUPERVISOR [address] [facility] [address] [place] [address] PCP - General 04/10/15 09/12/20 Malika Campbell APRN-COMPOSING ROOM SUPERVISOR [address] [facility] [address] [place] [address] PCP - General Nurse Practitioner [facility] 09/13/2009/23 Debra Ramires APRN-COMPOSING ROOM SUPERVISOR [address] [facility] [address] [place] [address] PCP - General 09/24/20 09/30/20 Malika Campbell APRN-COMPOSING ROOM SUPERVISOR [address] [place] [phone] PCP - General 10/01/20 04/08/22 Malika Campbell APRN-COMPOSING ROOM SUPERVISOR [address] [place] [phone] PCP - General 04/09/22 documented as of this encounter
--- OUTSIDE RECORDS SUMMARY | 2024-05-04 13:31 | XMS_ITS | Encounter Summary ---
Author Organization [facility] Address [address] [place] [address] Care Team Providers Care Shake Out Worker Name Role Phone Unavailable Primary Care Provider Unavailabl e Reason for Visit * Reason Onset Date Comments Broken humerus 12/20/2023 [place] @ [facility] OFF[facility] Encounter Details Date Type Department Care Team (Late st Contact Info) Description 12/20/2023 Telephone [facility] Admitting [address] [place] [address] [place] [address] [place] [address] Broken humerus ([place] @ [facility] OFFICE) Social History Tobacco Use Types Packs/Day [...]
--- OUTSIDE RECORDS SUMMARY | 2024-05-04 13:31 | XMS_ITS | Encounter Summary ---
Author Organization [facility] Address [address] [place] [address] Care Team Providers Care Airport Utility Worker Name Role Phone Unavailable Primary Care Provider Unavailabl e Reason for Visit * Reason Onset Date Comments left ft wound infection 12/10/2023 Spoke freya/ Meme @ Dr. Daphnie zabala Encounter Details Date Type Department Care Team (Late st Contact Info) Description 12/10/2023 Telephone [facility] Admitting [address] [place] [address] [place] [address] [place] [address] left ft wound infection (Spoke w/ Meme @ Dr. Eller exchange) Social History Tobacco Use Types Packs/Day [...]
--- OUTSIDE RECORDS SUMMARY | 2024-05-04 13:31 | XMS_ITS | Encounter Summary ---
Author Organization [facility] Address [address] [place] [address] Care Team Providers Care Equipment Maint Tech Name Role Phone Debra Ramires DISTRICT CAPTAIN-BAG HANGER Primary Care Provider Malika Campbell DISTRICT CAPTAIN-BAG HANGER Primary Care Provider [phone] Debra Ramires DISTRICT CAPTAIN-BAG HANGER Primary Care Provider Malika Campbell DISTRICT CAPTAIN-BAG HANGER Primary Care Provider [phone] Malika Campbell DISTRICT CAPTAIN-BAG HANGER Primary Care Provider [phone] Encounter Details Date Type Department Care Team (Late st Contact Info) Description 11/21/2017 Ophth Exam [facility] [address] [place] [address] Geraldo Grullon MD [address] DE[place] [phone] Social History Tobacco Use Types Packs/Day Years [...] on filedocumented in this encounter Care Teams Equipment Maint Tech Relationship Specialty Start Date End Date Debra Ramires APRN-CNP [address] [place] [phone] PCP - General 04/10/15 09/12/20 Malika Campbell APRN-CNP [address] [place] [phone] PCP - General Nurse Practitioner Family 09/13/2009/23 Debra Ramires APRN-CNP [address] [place] [phone] PCP - General 09/24/20 09/30/20 Malika Campbell APRN-CNP [address] [place] [phone] PCP - General 10/01/20 04/08/22 Malika Campbell APRN-CNP [address] [place] [phone] PCP - General 04/09/22 documented as of this encounter
--- OUTSIDE RECORDS SUMMARY | 2024-05-04 13:31 | XMS_ITS | Patient Health Summary ---
Author Organization [facility] Address [address] [place] [address] Care Team Providers Care Wwe Wrestler Name Role Phone Malika Campbell ANKIT-SHIPPING AND RECEIVING Primary Care Provider [phone] Note from [facility] [place],non-owned Affiliates and Associated Physician Practices is amultiple site organization consisting of ambulatory clinics and hospital sitesin [place], [place], [place] and [place]. This disclosure is being madepursuant to the Care Everywhere program and may not contain all information available regarding this patient. Last updated 17.[facility] Allergies * Cat Hair Extract(Swelling) -Low [...] Comments Blood Pressure 126/83 03/24/2022 4:09 PM TAX PREPARER Pulse 96 03/24/2022 4:09 PM TAX PREPARER Temperature 35.9 C (96.7 F) 03/24/2022 4:09 PM TAX PREPARER Respiratory Rate 18 03/24/2022 4:09 PM TAX PREPARER Oxygen Saturation 100% 03/24/2022 4:09 PM TAX PREPARER Inhaled Oxygen Concentration - - Weight 84.8 kg (187 lb) 04/09/2022 11:15 AM TAX PREPARER Height 170.2 cm (5' 7 ) 01/07/2022 3:36 PM CDT Body Mass Index 29.29 01/07/2022 3:36 PM CDT Procedures * PT-INR [facility](Performed 03/24/2022) * COMPREHENSIVE METABOLIC PANEL(Performed 03/24/2022) * CBC W AUTO DIFFERENTIAL(Performed 03/24/2022) * DE ED EGD FLEX TRANSORAL DX(Performed 03/23/2022) Performed for Esophageal varices without bleeding, unspecified esophageal varices type (HCC) * EGD(Performed 03/23/2022) * GLUCOSE - POINT OF CARE(Performed 03/23/2022) * HCG URINE QUALITATIVE - POCT (IP) INTERFACED(Performed 03/23/2022) * HCG URINE QUAL POCT NOTIFICATION(Performed 03/23/2022) Performed for Preoperative examination * PATHOLOGY TISSUE(Performed 01/07/2022) Performed for Bleeding esophageal varices, unspecified esophageal varices type (HCC) * DE ED EGD FLEX TRANSORAL DX(Performed 01/07/2022) Performed [...] LEUKOREDUCED UNIT(Performed 09/13/2020) * EGD(Performed 09/13/2020) * DE ED EGD FLEX TRANSORAL DX(Performed 09/13/2020) * [...] ANTIBODY IDENTIFICATION(Performed 09/13/2020) * E ANTIGEN TYPING (CCBR-SYNARC BB)(Performed 09/13/2020) * RUIZ DIRECT(Performed 09/13/2020) * [...] ascites, unspecified hepatic cirrhosis type (HCC) * LFBEB-0-VDRHQLXWIAC BLOOD(Performed 12/12/2019) Performed for Cirrhosis of liver [...] for Steatosis of liver, Hepatic fibrosis * DE LIVER ELASTOGRAPHY(Performed 03/25/2019) Performed for NAFLD (nonalcoholic [...] [facility](Performed 11/07/2013) * GLUCOSE ACCUCHECK(Performed 11/07/2013) * DE ED EGD FLEX TRANSORAL DX Performed for Abdominal pain, unspecified abdominal location, Esophageal varices without bleeding, unspecified esophageal varices type (HCC) * DE ED EGD FLEX TRANSORAL DX Performed for Esophageal varices without bleeding, unspecified esophageal varices type (HCC) Results * (ABNORMAL) PT-INR [facility] (03/24/2022 4:51 PM TAX PREPARER) Only the most recent of6 resultswithin the time period is included. [facility] PT 16.9(H) 12.1 - 14.8 Seconds 03/24/2022 5:30 PM [facility] INR 1.4 See Comment 03/24/2022 5:30 PM [facility] Comment:The suggested therap eutic range for standard coumadin (warfarin) therapy is an INR of 2.0-3.0. For high-risk patients (Mechanical Mitral Valve Prosthesis, etc.), the suggested prophylactic therapeutic range is an INR of 2.5-3.5. Blood BLOOD SPECIMEN / Unknown Venipuncture / Unknown 03/24/2022 4:51 PM TAX PREPARER 03/24/2022 5:03 PM TAX PREPARER Deonna Mukherjee PA-C LAB - COAGULATION ORDERABLES Performing Organization Address [facility]/State/[facility] Co de Phone Number [facility] [address] [place] [phone], [facility] [phone] * (ABNORMAL) CBC W AUTO DIFFERENTIAL (03/24/2022 4:51 PM TAX PREPARER) Only the most recent of18 resultswithin the time period is included. Pathologist [facility] [place] WBC 9.7 3.5 - 10.5 10 3/uL 03/24/2022 5:07 PM [facility] RBC 4.23 3.80 - 5.20 10 6/uL 03/24/2022 5:07 PM [facility] Hemoglobin 12.0 12.0 - 15.6 g/dL 03/24/2022 5:07 PM [facility] Hematocrit 35.5 35.0 - 45.0 % 03/24/2022 5:07 PM [facility] MCV 83.9 80.7 - 98.3 fL 03/24/2022 5:07 PM [facility] MCH 28.4 26.7 - 34.0 pg 03/24/2022 5:07 PM [facility] MCHC 33.8 30.8 - 35.9 g/dL 03/24/2022 5:07 PM [facility] RDW-SD 37.7 36.0 - 50.0 fL 03/24/2022 5:07 PM [facility] RDW-CV 12.3 11.2 - 14.8 % 03/24/2022 5:07 PM [facility] Platelet Count 143(L) 150 - 400 10 3/uL 03/24/2022 5:07 PM [facility] MPV 10.5 9.4 - 12.9 fL 03/24/2022 5:07 PM [facility] nRBC Absolute 0.00 0 10 3/uL 03/24/2022 5:07 PM [facility] nRBC Auto 0.0 0 /100 WBC 03/24/2022 5:07 PM [facility] Neutrophils % 71.5(H) 35.0 - 70.0 % 03/24/2022 5:07 PM [facility] Lymphocytes % 20.7 20.0 - 43.0 % 03/24/2022 5:07 PM [facility] Monocytes % 6.5 5.0 - 13.0 % 03/24/2022 5:07 PM [facility] Eosinophils % 0.8 0.0 - 6.0 % 03/24/2022 5:07 PM [facility] Basophil % 0.3 0.0 - 2.0 % 03/24/2022 5:07 PM [facility] Neutrophils Absolute 6.92 1.60 - 7.00 10 3/uL 03/24/2022 5:07 PM [facility] Lymphocyte Absolute 2.01 1.10 - 3.90 10 3/uL 03/24/2022 5:07 PM [facility] Monocytes Absolute 0.63 0.26 - 1.07 10 3/uL 03/24/2022 5:07 PM [facility] Eosinophils Absolute 0.08 0.00 - 0.47 10 3/uL 03/24/2022 5:07 PM [facility] Basophils Absolute 0.03 0.00 - 0.08 10 3/uL 03/24/2022 5:07 PM [facility] Immature Granulocytes % 0.2 0.0 - 1.0 % 03/24/2022 5:07 PM [facility] Immature Granulocytes Absolute 0.02 03/24/2022 5:07 PM [facility] Blood BLOOD SPECIMEN / Unknown Venipuncture / Unknown 03/24/2022 4:51 PM TAX PREPARER 03/24/2022 5:03 PM TAX PREPARER Deonna Mukherjee PA-C LAB - HEMATOLOGY O RDERABLES [facility] [address] [place] [address], [facility] [phone] * (ABNORMAL) COMPREHENSIVE METABOLIC PANEL (03/24/2022 4:51 PM TAX PREPARER) Only the most recent of10 resultswithin the time period is included. BUN 10 7 - 26 mg/dL 03/24/2022 5:42 PM [facility] Creatinine 0.55(L) 0.56 - 0.96 mg/dL 03/24/2022 5:42 PM [facility] Sodium 134(L) 136 - 145 mmol/L 03/24/2022 5:42 PM [facility] Potassium 3.8 3.5 - 4.5 mmol/L 03/24/2022 5:42 PM [facility] Chloride 94(L) 98 - 107 mmol/L 03/24/2022 5:42 PM [facility] CO2 25 22 - 29 mmol/L 03/24/2022 5:42 PM [facility] Glucose 606(HH) 70 - 115 mg/dL 03/24/2022 5:42 PM [facility] Calcium 9.0 8.4 - 10.2 mg/dL 03/24/2022 5:42 PM [facility] Protein Total 7.2 6.0 - 8.3 g/dL 03/24/2022 5:42 PM [facility] Albumin 3.5 3.4 - 5.0 g/dL 03/24/2022 5:42 PM [facility] Bilirubin Total 0.7 0.2 - 1.2 mg/dL 03/24/2022 5:42 PM [facility] Alkaline Phosphatase 127 40 - 150 U/L 03/24/2022 5:42 PM [facility] ALT 19 5 - 55 U/L 03/24/2022 5:42 PM [facility] AST 19 5 - 34 U/L 03/24/2022 5:42 PM [facility] Anion Gap 19(H) 8 - 18 03/24/2022 5:42 PM [facility] BUN/Creatinine Ratio 18 7 - 23 03/24/2022 5:42 PM [facility] Osmolality Calculated 305(H) 270 - 300 mOsm/kg 03/24/2022 5:42 PM [facility] Albumin/Globulin Ratio 0.9(L) 1.1 - 2.3 03/24/2022 5:42 PM [facility] eGFR by CKD-EPI >90 >=90 mL/min/1.7 3 m2 03/24/2022 5:42 PM [facility] Blood BLOOD SPECIMEN / Unknown Venipuncture / Unknown 03/24/2022 4:51 PM TAX PREPARER 03/24/2022 5:03 PM TAX PREPARER Deonna Mukherjee PA-C LAB - CHEMISTRY OR DERABLES Performing Organization Address [facility]/State/[facility] Co de Phone Number [facility] [address] [place] [address], [facility] [phone] * EGD (03/23/2022 3:24 PM TAX PREPARER) Report Endoscopy POC Endoscopy Department Report _ [...] non-werner portions. Procedure Code(s): --- Professional --- 61880, Esophagogastroduo denoscopy, flexible, transoral; with band ligation of esophageal/gastri c varices Diagnosis Code(s): --- Professional --- I85.00, Esophageal varices without bleeding K76.6, Portal hypertension K31.89, Other diseases of stomach and duodenum CPT copyright 2019 [employer]. All rights reserved. The codes documented in this report are preliminary and upon loader semiconductor dies review may be revised to meet current compliance requirements. Wilbert Estrella, 03/23/2022 3:42:51 PM Note Initiated On: 03/23/2022 3:24 PM Number of Addenda: [address] PROVATION 03/23/2022 3:24 PM TAX PREPARER Carlie Estrella MD GI PRO CEDURE ORDERABLES [facility] * (ABNORMAL) GLUCOSE - POINT OF CARE (03/23/2022 2:44 PM TAX PREPARER) Only the most recent of8 resultswithin the time period is included. Glucose WB/POC 238(H) 70 - 115 mg/dL 03/23/2022 3:06 PM TAX PREPARER [facility] Specimen Type Cap Fingerstick 2022 3:06 PM TAX PREPARER [facility] Blood BLOOD SPECIMEN / Unknown 03/23/2022 2:44 PM TAX PREPARER 03/23/2022 3:06 PM TAX PREPARER Carlie Estrella MD LAB - POINT OF CARE ORDERABLES Performing Organization Address City/[facility]/ZIP Co de Phone Number [address] [address], [place] [phone] * HCG URINE QUALITATIVE - POCT (IP) INTERFACED (03/23/2022 2:34 PM TAX PREPARER) Only the most recent of2 resultswithin the time period is included. HCG Qual Urine Negative Negative 03/23/2022 2:41 PM TAX PREPARER [facility] Urine URINE / Unknown 03/23/2022 2 :34 PM TAX PREPARER 03/23/2022 2:41 PM TAX PREPARER Carlie Estrella MD LAB - POINT OF CARE ORDERABLES Performing Organization Address [facility] Co de Phone Number [address] [address], [place] [phone] * HCG URINE QUAL POCT NOTIFICATION (03/23/2022 2:26 PM TAX PREPARER) Only the most recent of3 resultswithin the time period is included. Comment Notification Label Only - See Separate Report 03/23/2022 3:32 PM TAX PREPARER [facility] Urine URINE / Unknown 03/23/2022 2 :26 PM TAX PREPARER 03/23/2022 2:26 PM TAX PREPARER Carlie Estrella MD LAB - URINALYSIS ORDERABLES Performing Organization Address City/[facility]/ZIP Co de Phone Number [address] [address], [place] [phone] * PATHOLOGY TISSUE (01/07/2022 1:37 PM CDT) Only the most recent of3 resultswithin the time period is included. Case Report Surgical Pathology Report Case: [id number] Authorizing Provider: Daina Vasquez MD Collected: 01/07/2022 01:37 PM Ordering Location: [facility] Received: 01/07/2022 03:38 PM Pathologist: Suzette Hernandez MD Specimen: Gastric, random gastric bx- R/O H pylori 01/08/2022 2:32 PM [facility] Final Diagnosis Stomach, random, biopsy (A): - Mild reactive changes - No active inflammation or H. pylori organisms (H&E examination) 01/08/2022 2:32 PM [facility] Microscopic Description and Comment Microscopic examination substantiates the final diagnosis. 01/08/2022 2:32 PM [facility] Clinical History The patient is a 36-year-old woman with left upper quadrant abdominal pain who presents for follow-up of esophageal varices and surveillance. Operative procedure/findings: EGD - large esophageal varices, banded; portal hypertensive gastropathy and nonbleeding gastric ulcers, biopsied to rule out H. pylori. 01/08/2022 2:32 PM [facility] Gross Description The requisition and specimen(s) are identified with the patient's name Shruti Velazquez. Received in formalin, specimen A , are 2 pink-patrick tissues, 0.1 x 0.1 x 0.1 cm and 0.4 x 0.2 x 0.1 cm, submitted in toto in cassette A1. DF 01/08/2022 2:32 PM [facility] Disclaimer The performance characteristics of all immunohistochemical and indirect immunofluorescence stains (if any) cited in this report were determined by the Histopathology Laboratory of [facility]. Some of these tests were developed by [...] the attending (teaching) pathologist. 01/08/2022 2:32 PM [facility] Embedded Images 01/08/2022 2:32 PM [facility] Biopsy, NOS GASTRIC CONTENTS SPECIMEN / Unknown 01/07/2022 1:37 PM CDT 01/07/2022 3:38 PM CDT Comment:Pre-op diagnosis: Bleeding esophageal varices, unspecified esophageal varices type [I85.01] Daina Vasquez MD LAB - PATHOLOGY/CY ALLA ORDERABLES [facility] [address] [phone] * EGD (01/07/2022 1:19 PM CDT) Report [...] entire procedure. Procedure Code(s): --- Professional --- 45303, Esophagogastroduode noscopy, flexible, transoral; with band ligation of esophageal/gastric varices Diagnosis Code(s): --- Professional --- I85.00, Esophageal varices without bleeding K76.6, Portal hypertension K31.89, Other diseases of stomach and duodenum K25.9, Gastric ulcer, unspecified as acute or chronic, without hemorrhage or perforation R10.11, Right upper quadrant pain R10.12, Left upper quadrant pain CPT copyright 2019 [employer]. All rights reserved. The codes documented in this report are preliminary and upon loader semiconductor dies review may be revised to meet current compliance requirements. ___ Daina Vasquez MD 01/07/2022 1:51:04 PM Note Initiated On: 01/07/2022 1:19 PM Number of Addenda: [address] [address] __ _ Addendum Number: 1 Addendum Date: 01/07/2022 2:05:12 PM given banding, would recommend liquid diet today and soft diet x 1 week. Of note, not on nadolol and heart rate 70-80s at endoscopy. ___ Daina Vasquez MD 01/07/2022 2:05:53 PM [facility] 01/07/2022 1:19 PM CDT Daina Vasquez MD GI PROCEDURE ORDER [place] [facility] * ALPHA FETOPROTEIN BLOOD TUMOR MARKER (01/07/2022 11:08 AM CDT) Only the most recent of3 resultswithin the time period is included. Alpha-Fetoprote in Tumor Marker <2.0 <=8.3 ng/mL 01/07/2022 12:03 PM CDT [facility] Comment: AFP values will vary depending on testing procedure used. Results are not comparable across different methods. AFP values obtained by [facility] using an Miller Alinity Immunoassay. Blood BLOOD SPECIMEN / Unknown Venipuncture / Unknown 01/07/2022 11:08 AM CDT 01/07/2022 11:13 AM CDT Abby Jaquez PELLET PREPARATION OPERATOR-SHIPPING AND RECEIVING LAB - CHEMI STRY ORDERABLES [facility] [address] [place] [phone], [facility] [phone] * US ABDOMEN LIMITED (01/07/2022 10:53 AM [...] Navarro (resident). > Dictated by Salvador Navarro (Veteran Appeals Reviewer) 01/07/2022 11:13 AM IABIMAEL MD have personally reviewed and interpreted this examination/study. > Interpreting Provider: ABIMAEL WALLACE MD on 01/07/2022 12:10 PM Narrative 01/07/2022 12:10 PM CDT PROCEDURE: US ABDOMEN LIMITED, DATE/TIME OF EXAM: 01/07/2022 8:32 AM, LOCATION [facility] INDICATION: K74.60: Hepatic cirrhosis, unspecified hepatic cirrhosis [...] DATE/TIME OF EXAM: 01/07/2022 8:32 AM, LOCATION [facility] INDICATION: K74.60: Hepatic cirrhosis, unspecified hepatic cirrhosis [...] Navarro (resident). > Dictated by Salvador Navarro (Veteran Appeals Reviewer) 1:13 AM I, ABIMAEL WALLACE MD have personally reviewed and interpreted this examination/study. > Interpreting Provider: ABIMAEL WALLACE MD on 01/07/2022 12:10 PM Abby Jaquez PELLET PREPARATION OPERATOR-SHIPPING AND RECEIVING US ORDERABL ES * LAB RESULTS ORDER [...] The following cutoff levels are recommended by [employer] [employer]. A1c > 6.5% : considered [...] Pink MD LAB - CHEMISTRY ORD ERABLES [facility] Organization Address City/State/ZIP Co de Phone Number -[facility] [address] [place] [address] * (ABNORMAL) RENAL FUNCTION PANEL (09/14/2020 3:05 AM CDT) Glucose 95 70 - 105 mg/dL 09/14/2020 4:04 AM CDT -[facility] Sodium 139 136 - 145 mmol/L 09/14/2020 4:04 AM CDT -[facility] Potassium 3.6 3.5 - 5.1 mmol/L 09/14/2020 4:04 AM CDT -[facility] Chloride 108(H) 98 - 107 mmol/L 09/14/2020 4:04 AM CDT -[facility] CO2 22(L) 23 - 31 mmol/L 09/14/2020 4:04 AM CDT -[facility] Calcium 7.5(L) 8.4 - 10.4 mg/dL 09/14/2020 4:04 AM CDT -[facility] Anion Gap 9 8 - 18 mmol/L 09/14/2020 4:04 AM CDT -[facility] BUN 24(H) 7 - 18.7 mg/dL 09/14/2020 4:04 AM CDT [facility] Creatinine 0.76 0.57 - 1.11 mg/dL 09/14/2020 4:04 AM CDT -[facility] Albumin 2.9(L) 3.5 - 5.2 gm/dL 09/14/2020 4:04 AM CDT [facility] Phosphorus 3.2 2.3 - 4.7 mg/dL 09/14/2020 4:04 AM CDT [facility] eGFR by MDRD >60 >60 mL/min/1.7 3m2 09/14/2020 4:[address] [facility] eGFR by MDRD >60 >60 mL/min/1.7 3m2 09/14/2020 4:[address] [facility] Blood BLOOD SPECIMEN / Unknown Lab Venipuncture / Unknown 09/14/2020 3:05 AM CDT 09/14/2020 3:37 AM CDT Angeline Atkins MD LAB - CHEMISTRY ALEKSANDAR VILLA [facility] [address] [place] [id number] * MAGNESIUM BLOOD (09/14/2020 3:05 AM CDT) Only the most recent of2 resultswithin the time period is included. Magnesium 2.2 1.6 - 2.6 mg/dL 09/14/2020 4:[address] [facility] Blood BLOOD SPECIMEN / Unknown Lab Venipuncture / Unknown 09/14/2020 3:05 AM CDT 09/14/2020 3:37 AM CDT Angeline Atkins MD LAB - CHEMISTRY [place] Performing Organization Address City/[facility]/ZIP Co de Phone Number [facility] [address] [place] [phone] * (ABNORMAL) HGB HCT PANEL (09/13/2020 10:38 PM CDT) Only the most recent of3 resultswithin the time period is included. Hemoglobin 8.0(L) 12.0 - 15.6 gm/dL 09/13/2020 10:59 PM CDT [facility] Hematocrit 24.9(L) 35.9 - 45.5 % 09/13/2020 10:[address] [facility] Blood BLOOD SPECIMEN / Unknown Lab Venipuncture / Unknown 09/13/2020 10:38 PM CDT 09/13/2020 10:57 PM CDT Cielo Pink MD LAB - HEMATOLOGY OR DERABLES [facility] [address] [place] [address] * TRANSFUSE RED BLOOD CELL LEUKOREDUCED UNIT(S) [...] [facility] L BLOOD BANK Unit Donor # [id number] [facility] BLOOD BANK Unit Status transfused [facility] BLOOD BANK Product Code [id number] [facility] BLOOD BANK Blood Type Barcode 5100 [facility] BLOOD BANK Expiration Date [facility] BLOOD BANK Unit Description AS1 LR PRBC [facility] BLOOD BANK Unit ABO O [facility] BLO OD BANK Unit Rh POS [facility] BLO OD BANK Product Number R02 [facility] L BLOOD BANK Unit Donor # [id number] [facility] BLOOD BANK Unit Status transfused [facility] BLOOD BANK Product Code [id number] [facility] BLOOD BANK Blood Type Barcode 5100 [facility] BLOOD BANK Expiration Date S [facility] BLOOD BANK Blood Bank BLOOD SPECIMEN / Unknown 09/13/2020 5:14 AM CDT Cielo Pink MD LAB - BLOOD BANK OR DERABLES [facility] [address] [place] [address] [phone] * EGD (09/13/2020 4:35 PM CDT) Report [...] present medications. Procedure Code(s): --- Professional --- 18496, Esophagogastroduod enoscopy, flexible, transoral; with band ligation of esophageal/gastric varices --- Technical --- 44297, Esophagogastroduod enoscopy, flexible, transoral; with band ligation [...] K92.1, Melena (includes Hematochezia) CPT copyright 2019 [employer]. All rights reserved. The codes documented in this report are preliminary and upon loader semiconductor dies review may be revised to meet current compliance requirements. ___ Corbin De La Rosa MD 09/13/2020 5:03:17 PM This report has been signed electronically. Number of Addenda: 0 Note Initiated On: 09/13/2020 4:35 PM Procedure Date: 09/13/2020 4:35:56 PM [facility] 09/13/2020 4:35 PM CDT Corbin De La Rosa MD GI PROCEDURE ORDERAB LES [facility] * TRANSFUSE RED BLOOD CELL [...] - 105 mg/dL 09/13/2020 10:28 AM CDT [facility] Sodium 138 136 - 145 mmol/L 09/13/2020 10:28 AM CDT [facility] Potassium 3.9 3.5 - 5.1 mmol/L 09/13/2020 10:28 AM CDT [facility] Chloride 108(H) 98 - 107 mmol/L 09/13/2020 10:28 AM CDT [facility] CO2 22(L) 23 - 31 mmol/L 09/13/2020 10:28 AM CDT [facility] Calcium 7.6(L) 8.4 - 10.4 mg/dL 09/13/2020 10:28 AM CDT [facility] Anion Gap 8 8 - 18 mmol/L 09/13/2020 10:[address] [facility] BUN 32(H) 7 - 18.7 mg/dL 09/13/2020 10:[address] [facility] Creatinine 0.85 0.57 - 1.11 mg/dL 09/13/2020 10:28 AM CDT [facility] eGFR by MDRD >60 >60 mL/min/1.7 3m2 09/13/2020 10:[address] [facility] eGFR by MDRD >60 >60 mL/min/1.7 3m2 09/13/2020 10:[address] [facility] Blood BLOOD SPECIMEN / Unknown Lab Venipuncture / Unknown 09/13/2020 9:55 AM CDT 09/13/2020 10:04 AM CDT Cielo Pink MD LAB - CHEMISTRY ORD ERABLES [facility] [address] [place] [address] * FOLATE (09/13/2020 9:55 AM CDT) Pathologist [facility] Folate 12.4 7.0 - 31.4 ng/mL 09/13/2020 4:50 PM CDT [facility] Blood BLOOD SPECIMEN / Unknown Lab Venipuncture / Unknown 09/13/2020 9:55 AM CDT 09/13/2020 10:04 AM CDT Cielo Pink MD LAB - CHEMISTRY ORD ERABLES [facility] [address] [place] [address] * VITAMIN B12 (09/13/2020 9:55 AM CDT) [facility] Vitamin B12 322 213 - 816 pg/mL 09/13/2020 4:50 PM CDT [facility] Blood BLOOD SPECIMEN / Unknown Lab Venipuncture / Unknown 09/13/2020 9:55 AM CDT 09/13/2020 10:04 AM CDT Cielo Pink MD LAB - CHEMISTRY ORD ERABLES Performing Organization Address City/[facility] Co de Phone Number [facility] [address] [place] [phone] * (ABNORMAL) IRON + TRANSFERRIN PANEL (09/13/2020 9:55 AM CDT) [facility] Iron 11(L) 50 - 170 ug/dL 09/13/2020 4:13 PM CDT [facility] Transferrin 313 180 - 382 mg/dL 09/13/2020 4:13 PM CDT [facility] TIBC Calculated 391 240 - 450 ug/dL 09/13/2020 4:13 PM CDT [facility] Iron Saturation % 3(L) 20 - 50 % 09/13/2020 4:13 PM CDT [facility] Blood BLOOD SPECIMEN / Unknown Lab Venipuncture / Unknown 09/13/2020 9:55 AM CDT 09/13/2020 10:04 AM CDT Cielo Pink MD LAB - CHEMISTRY ORD ERABLES [facility] [address] [place] [id number] * FERRITIN (09/13/2020 9:55 AM CDT) Only the most recent of2 resultswithin the time period is included. [facility] Ferritin 12 5 - 204 ng/mL 09/13/2020 4:50 PM CDT [facility] Blood BLOOD SPECIMEN / Unknown Lab Venipuncture / Unknown 09/13/2020 9:55 AM CDT 09/13/2020 10:04 AM CDT Cielo Pink MD LAB - CHEMISTRY ORD ERABLES [facility] [address] [place] [address] * BLOOD TYPE VERIFICATION (09/13/2020 6:03 AM CDT) ABO Rh O POS 09/13/2020 9:[address] [facility] Blood Bank BLOOD SPECIMEN / Unknown Lab Venipuncture / Unknown 09/13/2020 6:03 AM CDT 09/13/2020 6:11 AM CDT John York MD LAB - BLOOD BANK ORDERABLES Performing Organization Address [facility] Co de Phone Number [facility] [address] [place] [address] * E ANTIGEN TYPING (SOFTBANK BB) (09/13/2020 5:08 AM CDT) E Antigen NEG 09/13/2020 11:[address] [facility] Blood Bank BLOOD SPECIMEN / Unknown Lab Venipuncture / Unknown 09/13/2020 5:08 AM CDT 09/13/2020 5:14 AM CDT Cielo Pink MD LAB - BLOOD BANK OR DERABLES Performing Organization Address City/[facility]/ZIP Co de Phone Number [facility] [address] [place] [address] * TYPE + SCREEN PANEL (09/13/2020 5:08 AM CDT) ABO Rh O POS 09/13/2020 9:[address] [facility] Comment:No history; collect retype. Antibody Screen POS 9:[address] [facility] Blood Bank BLOOD SPECIMEN / Unknown Lab Venipuncture / Unknown 09/13/2020 5:08 AM CDT 09/13/2020 5:14 AM CDT Cielo Pink MD LAB - BLOOD BANK OR DERABLES [facility] [address] [place] [address] * RUIZ DIRECT (09/13/2020 5:08 AM CDT) Direct Ruiz (NEGIN) NEG 09/13/2020 10:[address] [facility] Blood Bank BLOOD SPECIMEN / Unknown Lab Venipuncture / Unknown 09/13/2020 5:08 AM CDT 09/13/2020 5:14 AM CDT Cielo Pink MD LAB - BLOOD BANK OR DERABLES Performing Organization Address [facility] Co de Phone Number [facility] [address] [place] [address] * ANTIBODY IDENTIFICATION (09/13/2020 5:08 AM CDT) Antibody 1 POS, Anti-E 09/13/2020 11:[address] [facility] Blood Bank BLOOD SPECIMEN / Unknown Lab Venipuncture / Unknown 09/13/2020 5:08 AM CDT 09/13/2020 5:14 AM CDT Cielo Pink MD LAB - BLOOD BANK OR DERABLES Performing Organization Address [facility] Co de Phone Number [facility] [address] [place] [address] * (ABNORMAL) PT-INR (09/13/2020 5:08 AM CDT) PT 20.3(H) 12.1 - 14.8 sec 09/13/2020 5:31 AM CDT [facility] INR 1.8(H) 0.9 - 1.1 09/13/2020 5:[address] [facility] Blood BLOOD SPECIMEN / Unknown Lab Venipuncture / Unknown 09/13/2020 5:08 AM CDT 09/13/2020 5:14 AM CDT Narrative -[facility] - 09/13/2020 5:31 AM CDT Conventional Warfarin Anticoagulant Therapy: INR Reference Range: 2.0-3.0 Intensive Warfarin Anticoagulant Therapy: INR Reference Range: 2.5-3.5 Cieol Pink MD LAB - COAGULATION O RDERABLES Performing Organization Address City/[facility]/ZIP Co de Phone Number [facility] [address] [place] [phone] * PHOSPHORUS BLOOD (09/13/2020 5:08 AM CDT) [facility] Signature Phosphorus 3.3 2.3 - 4.7 mg/dL 09/13/2020 5:[address] [facility] Blood BLOOD SPECIMEN / Unknown Lab Venipuncture / Unknown 09/13/2020 5:08 AM CDT 09/13/2020 5:14 AM CDT Cielo Pink MD LAB - CHEMISTRY ORD ERABLES Performing Organization Address City/[facility] Co de Phone Number [facility] [address] [place] [phone] * CT ABDOMEN PELVIS W CONTRAST (12/19/2019 [...] ultrasound. Report dictated by Calos Oakley MD (echocardiography radiology technologist). I, Dr. KAYODE DOOLEY have personally reviewed [...] ultrasound. Report dictated by Calos Oakley MD (echocardiography radiology technologist). I, Dr. KAYODE DOOLEY have personally reviewed [...] - CHEMISTRY ALEKSANDAR VILLA Performing Organization Address [facility]/ZIP Co de Phone Number [address] [address], [place] [phone] * (ABNORMAL) AMMONIA (12/19/2019 12:58 PM CDT) Pathologist [facility] Ammonia 67(H) 11 - 64 umol/L 12/19/2019 1:49 PM CDT [facility] Blood BLOOD SPECIMEN / Unknown Venipuncture / Unknown 12/19/2019 12:58 PM CDT 12/19/2019 1:26 PM CDT Andie Martinez MD LAB - CHEMISTRY ALEKSANDAR VILLA Performing Organization Address [facility] Co de Phone Number [address] [address], [place] [phone] * ALCOHOL ETHYL BLOOD (12/19/2019 12:58 PM CDT) Pathologist [facility] Interpretation Ethanol None Detected None Detected mg/dL 12/19/2019 1:53 PM CDT [facility] Comment:Ethanol levels less than 10 mg/dL are resulted as None detected . Blood BLOOD SPECIMEN / Unknown Venipuncture / Unknown 12/19/2019 12:58 PM CDT 12/19/2019 1:26 PM CDT Andie Martinez MD LAB - CHEMISTRY ALEKSANDAR VILLA Performing Organization Address [facility]/ZIP Co de Phone Number [address] [address], [place] [phone] * (ABNORMAL) URINALYSIS W/MICROSCOPIC NO CULTURE (12/19/2019 12:14 PM CDT) Only the most recent of3 resultswithin the time period is included. Color UA Lindsey(A) Straw, Yellow, Colorless 12/19/2019 12:48 PM [facility] Clarity UA Cloudy(A) Clear, Slt Cloudy 12/19/2019 12:48 PM [facility] Specific [place] UA 1.026 1.005 - 1.030 12/19/2019 12:48 PM [facility] pH UA 5.0 5.0 - 8.0 pH 12/19/2019 12:48 PM [facility] Protein UA 2+(A) Negative mg/dL 12/19/2019 12:48 PM [facility] Glucose UA 1+(A) Negative mg/dL 12/19/2019 12:48 PM [facility] Ketone UA Negative Negative mg/dL 12/19/2019 12:48 PM [facility] Bilirubin UA Negative Negative mg/dL 12/19/2019 12:48 PM [facility] Blood UA 1+(A) Negative 12/19/2019 12:48 PM [facility] Nitrite UA Negative Negative 12/19/2019 12:48 PM [facility] Leukocyte Esterase Trace(A) Negative 12/19/2019 12:48 PM [facility] Urobilinogen UA 4.0(A) Negative mg/dL 12/19/2019 12:48 PM [facility] RBC UA 6-10(A) None Seen, 0-2, 3-5 /HPF 12/19/2019 12:48 PM [facility] WBC UA 0-5 None Seen, 0-5 /HPF 12/19/2019 12:48 PM [facility] Bacteria UA 3+(A) None, Trace /HPF 12/19/2019 12:48 PM [facility] Squamous Epithelial Cells UA >20(A) None Seen, 0-2 /HPF 12/19/2019 12:48 PM [facility] Renal Epithelial Cells UA 0-2 None Seen, 0-2 /HPF 12/19/2019 12:48 PM [facility] Mucus UA 1+ None, 1+ /LPF 12/19/2019 12:48 PM [facility] Urine URINE SPECIMEN OBTAINED BY CLEAN CATCH PROCEDURE / Unknown Collection / Unknown 12/19/2019 12:14 PM CDT 12/19/2019 12:22 PM CDT Narrative [facility] - 12/19/2019 12:48 PM CDT Andie Martinez MD LAB - URINALYSIS ORD ERABLES [facility] [address] [place] [phone], [facility] [phone] * HCG URINE QUALITATIVE (12/19/2019 12:14 PM CDT) Test Urine Negative Negative 12/19/2019 12:40 PM CDT [facility] Urine URINE / Unknown Collection / Unknown 12/19/2019 12:14 PM CDT 12/19/2019 12:22 PM CDT Star Bocanegra MD LAB - URINALYSIS ORD ERABLES Performing Organization Address City/[facility]/ZIP Co de Phone Number [address] [address], [facility] [phone] * SMOOTH MUSCLE ANTIBODY W REFLEX TITER (12/12/2019 9:51 AM CDT) F-Actin Antibody IgG 19 0 - 19 Units 12/14/2019 9:32 PM CDT [employer] ([facility]) Comment: If F-Actin (Smooth Muscle) Antibody, IgG [...] suspicion for AIH is strong. Performed By: [employer] [address] [place] [address] Outgoing Inspector: Cielo Read MD Blood BLOOD SPECIMEN / Unknown Lab Venipuncture / Unknown 12/12/2019 9:51 AM CDT 12/12/2019 11:02 AM CDT Abby Jaquez PELLET PREPARATION OPERATOR-SHIPPING AND RECEIVING LAB - SEROL OGY ORDERABLES Performing Organization Address [facility]/ZIP Co de Phone Number [facility] [address] [place] [address] * MITOCHONDRIAL ANTIBODY SCREEN (12/12/2019 9:51 AM CDT) Pathologist [facility] Mitochondrial M2 Antibody 4.0 0.0 - 24.9 Units 12/14/2019 9:[address] [facility] [employer] ([facility]) Comment: REFERENCE INTERVAL: Mitochondrial (M2) Antibody, IgG [...] does not rule out PBC. Performed By: [employer] [address] [place] [address] Outgoing Inspector: Cielo Read MD Blood BLOOD SPECIMEN / Unknown Lab Venipuncture / Unknown 12/12/2019 9:51 AM CDT 12/12/2019 11:02 AM CDT Tamir Becerra MD LAB - CHEMISTRY ALEKSANDAR VILLA Performing Organization Address City/[facility]/ZIP Co de Phone Number [facility] [employer] [facility]) [address] [place] [address] * KEVIN BLOOD SCREEN W/REFLEX TITER (12/12/2019 9:51 AM CDT) KEVIN IgG None Detected None Detected 12/14/2019 11:[address] [facility] [employer] ([facility]) Comment: If suspicion of connective tissue disease is strong and KEVIN EIA is negative, consider testing for KEVIN by IFA ([id number]). INTERPRETIVE INFORMATION: Anti-Nuclear Antibodies (KEVIN), IgG by HALI Antinuclear Antibodies (KEVIN), IgG by HALI: KEVIN specimens are screened using enzyme-linked immunosorbent assay (HALI) methodology. All HALI results reported as Detected are further tested by indirect fluorescent assay (IFA) using HEp-2 substrate with an IgG-specific conjugate. The KEVIN HALI screen is designed to detect antibodies against dsDNA, histones, SS-A (Ro), SS-B (La), Do, Do/[employer]OD [employer] NUTRITION SERVICES SUPERVISOR, Scl-70, Shyanne-1, centromeric proteins, other antigens extracted from the HEp-2 cell nucleus. KEVIN HALI assays have been reported to have lower sensitivities than KEVIN IFA for systemic autoimmune rheumatic diseases (SARD). Negative results do not necessarily rule out SARD. Performed By: [employer] [address] [place] [address] Outgoing Inspector: Cielo Read MD Blood BLOOD SPECIMEN / Unknown Lab Venipuncture / Unknown 12/12/2019 9:51 AM CDT 12/12/2019 11:02 AM CDT Abby Jaquez PELLET PREPARATION OPERATOR-SHIPPING AND RECEIVING LAB - CHEMI STRY ORDERABLES [facility] [employer] [facility]) [address] [place] [address], [facility] * MICROSOMAL ANTIBODY LIVER/KIDNEY (12/12/2019 9:51 AM CDT) Liver/Kidney Microsomal Antibody IgG <1:20 <1:20 12/15/2019 4:[address] [facility] [employer] ([facility]) Comment: INTERPRETIVE INFORMATION: Mqzpg-Odmjzz-Twehbdixo Abs, IgG Liver-Kidney Microsome IgG antibody (anti-LKM), as detected by indirect immunofluorescent antibody (IFA) techniques, may be observed in patients with autoimmune hepatitis type 2 (AIH-2), AIH-2 associated with autoimmune wbricgfsazjhpducfh-dskqhjxjrtc-smktrxxwhe dystrophy (APECED), viral hepatitis C or D, and some forms of drug-induced hepatitis. This IFA does not differentiate among the four types of LKM antibodies (LKM-1, LKM-2, LKM-3, and a fourth type that recognizes CY and CY antigens). Of these, anti-LKM-1 (cytochrome [id number]) IgG antibodies are considered specific for AIH-2. Test developed and characteristics determined by [employer]. See Compliance Statement D: [email or web address] Performed By: [place] [address] Outgoing Inspector: Cielo Read MD Blood BLOOD SPECIMEN / Unknown Lab Venipuncture / Unknown 12/12/2019 9:51 AM CDT 12/12/2019 11:02 AM CDT Abby Jaquez PELLET PREPARATION OPERATOR-SHIPPING AND RECEIVING LAB - CHEMI STRY ORDERABLES Performing Organization Address [facility]/ZIP Co de Phone Number [facility]) [address] [place] [id number] * TRANSFERRIN (12/12/2019 9:51 AM CDT) Transferrin 222 174 - 382 mg/dL 12/12/2019 1:19 PM CDT [facility] Transferrin Saturation % 24 16 - 50 % 12/12/2019 1:19 PM CDT [facility] Blood BLOOD SPECIMEN / Unknown Lab Venipuncture / Unknown 12/12/2019 9:51 AM CDT 12/12/2019 12:46 PM CDT Tamir Becerra MD LAB - CHEMISTRY [place] [id number] [place] [address], [facility] [phone] * CERULOPLASMIN (12/12/2019 9:51 AM CDT) Ceruloplasmin 23 20 - 60 mg/dL 12/12/2019 1:18 PM CDT [facility] Blood BLOOD SPECIMEN / Unknown Lab Venipuncture / Unknown 12/12/2019 9:51 AM CDT 12/12/2019 12:46 PM CDT Abby Jaquez PELLET PREPARATION OPERATOR-SHIPPING AND RECEIVING LAB - CHEMI STRY ORDERABLES Performing Organization Address [facility]/ZIP Co de Phone Number [address] [address], [facility] [phone] * [id number] BLOOD (12/12/2019 9:51 AM CDT) Pathologist [facility] Rskum-9-Ugtdvh ypsin 182 90 - 200 mg/dL 12/12/2019 11:32 AM CDT [facility] Blood BLOOD SPECIMEN / Unknown Lab Venipuncture / Unknown 12/12/2019 9:51 AM CDT 12/12/2019 11:02 AM CDT Abby Jaquez PELLET PREPARATION OPERATOR-SHIPPING AND RECEIVING LAB - CHEMI STRY ORDERABLES Performing Organization Address [facility] Co de Phone Number [address] [address], [facility] [phone] * IRON BLOOD (12/12/2019 9:51 AM CDT) Pathologist [facility] Iron 66 40 - 150 mcg/dL 12/12/2019 1:19 PM CDT [facility] Blood BLOOD SPECIMEN / Unknown Lab Venipuncture / Unknown 12/12/2019 9:51 AM CDT 12/12/2019 12:46 PM CDT Tamir Becerra MD LAB - CHEMISTRY [place] [address] [address], [facility] [phone] * HEPATITIS B SURFACE ANTIBODY (12/12/2019 9:51 AM CDT) Pathologist [facility] [place] Hepatitis B Virus Surface Antibody Non-react abdirahman Non-react abdirahman 12/12/2019 1:37 PM CDT [facility] Comment: < 8 mIU/mL Hepatitis B surface Antibody (HBsAb). Nonreactive for HBsAb - individual is considered not immune to Hepatitis B Virus infection. Hepatitis B Surface Antibody Quantitative 0.3 <8.0 mIU/mL 12/12/2019 1:37 PM CDT [facility] Comment: Hepatitis B Surface Antibody Numeric Result Interpretation: Nonreactive: <8.0 mIU/mL Indeterminate: 8.0 - 12.0 mIU/mL Reactive: >12.0 mIU/mL Blood BLOOD SPECIMEN / Unknown Lab Venipuncture / Unknown 12/12/2019 9:51 AM CDT 12/12/2019 12:46 PM CDT Abby Jaquez APRN-SHIPPING AND RECEIVING LAB - CHEMI STRY ORDERABLES Performing Organization Address City/[facility]/ZIP Co de Phone Number [address] [address], [facility] [phone] * HEPATITIS B CORE ANTIBODY (12/12/2019 9:51 AM CDT) HBc Antibody Total Non-reacti ve Non-reacti ve 12/12/2019 12:07 PM CDT [facility] Blood BLOOD SPECIMEN / Unknown Lab Venipuncture / Unknown 12/12/2019 9:51 AM CDT 12/12/2019 11:02 AM CDT Abby Jaquez APRN-SHIPPING AND RECEIVING LAB - CHEMI STRY ORDERABLES Performing Organization Address City/[facility] Co de Phone Number [address] [phone], [facility] [phone] * HEPATITIS B SURFACE ANTIGEN W RFLX CONFIRMATION (12/12/2019 9:51 AM CDT) Hepatitis B Virus Surface Antigen Non-reacti ve Non-reacti ve 12/12/2019 11:49 AM CDT [facility] Blood BLOOD SPECIMEN / Unknown Lab Venipuncture / Unknown 12/12/2019 9:51 AM CDT 12/12/2019 11:02 AM CDT Abby Jaquez PELLET PREPARATION OPERATOR-SHIPPING AND RECEIVING LAB - CHEMI STRY ORDERABLES [facility] [address] [place] [phone], [place] [phone] * (ABNORMAL) IGG BLOOD (12/12/2019 9:51 AM CDT) Pathologist [facility] IgG 2,317(H) 540-1,822 mg/dL 12/12/2019 1:19 PM CDT [facility] Blood BLOOD SPECIMEN / Unknown Lab Venipuncture / Unknown 12/12/2019 9:51 AM CDT 12/12/2019 12:46 PM CDT Tamir Becerra MD LAB - CHEMISTRY ALEKSANDAR VILLA Performing Organization Address [facility] Co de Phone Number [address] [address], [place] [phone] * HEPATITIS C ANTIBODY (12/12/2019 9:51 AM CDT) Pathologist [facility] [place] Hepatitis C Antibody Non-react abdirahman Non-reac tive 12/12/2019 12:07 PM CDT [facility] Comment:Hepatitis C Antibody screen indicates no serologic [...] CDT 12/12/2019 11:02 AM CDT Abby Jaquez PELLET PREPARATION OPERATOR-SHIPPING AND RECEIVING LAB - CHEMI STRY ORDERABLES Performing Organization Address City/[facility]/ZIP Co de Phone Number [address] [address], [place] [phone] * US LIVER BIOPSY (10/22/2019 9:57 AM [...] evaluation, please review the evaluation forms in [facility]. For details on monitored clinical parameters during the intra-service sedation time, please review the procedure nurse documentation in [facility]. This report was electronically signed by DERRELL [...] evaluation, please review the evaluation forms in [facility]. For details on monitored clinical parameters during the intra-service sedation time, pleasereview the procedure nurse documentation in [facility]. This report was electronically signed by DERRELL VELIZ on 10/22/2019 10:33AM . Ordering Provider Unlisted ORDERAB LES * (ABNORMAL) HEPATIC FUNCTION PANEL (10/22/2019 8:36 AM CDT) Protein Total 7.9 6.0 - 8.3 g/dL 020 9:13 AM T [facility] Albumin 3.1(L) 3.4 - 5.0 g/dL 10/22/2019 9:[address] [facility] Bilirubin Total 1.3(H) 0.2 - 1.2 mg/dL 05/2019 9:[address] [facility] Bilirubin Conjugated 0.9(H) 0.0 - 0.5 mg/dL 10/22/2019 9:13 AM [facility] Bilirubin Unconjugated 0.4 Unconjugated Bilirubin is a calculated value: Reference ranges have not been established. mg/dL 10/22/2019 9:13 AM [facility] Alkaline Phosphatase 133 40 - 150 Units/L 10/22/2019 9:[address] [facility] ALT 26 0 - 55 Units/L 10/22/2019 9:13 AM [facility] AST 60(H) 5 - 34 Units/L 10/22/2019 9:[address] [facility] Albumin/Globulin Ratio 0.6(L) 1.1 - 2.3 10/22/2019 9:[address] [facility] Blood BLOOD SPECIMEN / Unknown Venipuncture / Unknown 10/22/2019 8:36 AM CDT 10/22/2019 8:41 AM CDT García Levine MD LAB - CHEMISTRY ORDYazmin VILLA [facility] Organization Address City/State/ZIP Co de Phone Number [facility] [address] [place] [phone], [facility] [phone] * DE LIVER ELASTOGRAPHY (03/25/2019 10:57 PM TAX PREPARER) Narrative Nitesh Galvan MD - 03/25/2019 10:57 PM TAX PREPARER Nitesh Galvan MD 03/25/2019 10:57 PM Diagnosis: [...] patients with nonalcoholic fatty liver disease. Gastroenterology 2019;156:0086-4049. Meir MS, Kate R, Van Natmarcie ML, [...] FIB4 score (Long et al. [employer] 2019;3:2787-6875) or NAFLD Fibrosis score (Melvin et al. Clinical Gastroenterology and Hepatology 2019;17:2128-5010. from routine clinical data. 3. Liver stiffness [...] change as additional supporting data becomes available. [email or web address] Nitesh Bonilla MD PROCEDURE/ MINOR SURGICAL ORDERABLES * (ABNORMAL) GLUCOSE ACCUCHECK (05/13/2016 9:07 AM TAX PREPARER) Only the most recent of6 resultswithin the time period is included. Glucose, Fingerstick 244(H) 70-115mg/d L mg/dL [facility]) Comment:Operator Engineer: ALOK MCKEON 05/13/2016 9:07 AM TAX PREPARER Yamil Luther MD LAB - CHEMISTRY ALEKSANDAR VILLA [facility]) * HCG URINE QUALITATIVE - POCT (IP) [facility] (05/13/2016 7:22 AM TAX PREPARER) Only the most recent of12 resultswithin the time period is included. NEGATIVE [facility] Comment:Operator Engineer: JAS DAY 05/13/2016 7:22 AM TAX PREPARER Yamil Luther MD LAB - POINT OF CARE ORDERABLES Performing Organization Address [facility]/ZIP Co de Phone Number [facility] GALI (TAMMY) * CULTURE AEROBIC (03/27/2015 9:57 AM TAX PREPARER) Culture Aerobic No Growth at 1 week [facility] Gram Stain [facility] Comment:donor ring only Cornea 03/27/2015 9:57 AM TAX PREPARER 03/28/2015 11:58 AM TAX PREPARER Narrative [facility] - 04/03/2015 12:20 PM TAX PREPARER Specimen Type->Cornea Gram Stains are routinely screened for the presence of Polymorphonuclear Cells. Original canceled order as anaerobic culture [id number]. Yamil Luther MD LAB - MICROBIOLOGY O RDERABLES Performing Organization Address [facility] Co de Phone Number [address] [phone] * CULTURE URINE (01/21/2015 9:16 PM TAX PREPARER) Culture Urine Less than 10,000 CFU/ML of Normal Urogenital/ Skin Ailyn [facility] Comment: Urine specimen (specimen) URINE / Unknown 01/21/2015 9:16 PM TAX PREPARER 01/21/2015 9:22 PM TAX PREPARER Narrative [facility] - 01/23/2015 10:28 AM TAX PREPARER Specimen Type->Urine Rosie Squires MD LAB - MICROBIOLOGY O RDERABLES Performing Organization Address [facility]/ZIP Co de Phone Number [address] [phone] * CT ABDOMEN PELVIS WO CONTRAST (01/21/2015 7:32 PM TAX PREPARER) Only the most recent of2 resultswithin the time period is included. Anatomical Region Laterality Modality Abdomen, Pelvis Other Impressions 01/22/2015 8:46 AM TAX PREPARER IMPRESSION: 1. No evidence of nephrolithiasis, hydroureteronephrosis [...] 8:46 AM . Narrative 01/22/2015 8:46 AM TAX PREPARER EXAMINATION: Computed tomography (CT) of the abdomen [...] UA Yellow Straw, Yellow, Colorless, Light Yellow [facility] Clarity UA Clear Clear [facility] Specific [place] UA 1.021 1.001 - 1.030 [facility] pH UA 5.5 5.0 - 8.0 [facility] Protein UA Negative <=20 mg/dL [facility] Glucose UA >1000(A) Negative mg/dL [facility] Ketone UA Negative Negative mg/dL [facility] Bilirubin UA Negative Negative mg/dL [facility] Blood UA Negative Negative [facility] Nitrite UA Negative Negative [facility] Leukocyte Esterase Negative Negative [facility] Urobilinogen UA <2.0 <2.0 mg/dL [facility] RBC UA 1 0 - 8 /HPF [facility] WBC UA <1 0 - 2 /HPF [facility] Squamous Epithelial Cells UA 3(H) 0 - 1 /HPF [facility] Mucus UA Rare(A) None /LPF [facility] Urine specimen (specimen) 12/11/2014 3:37 PM CDT 12/11/2014 3:46 PM CDT Simon Malone MD LAB - URINALYSIS ORD ERABLES [address] [phone] * (ABNORMAL) DIFFERENTIAL MANUAL (01/27/2014 9:01 PM TAX PREPARER) WBC (corrected for NRBC) 10.4 10 3/uL [facility] Total Cell Count 100 [facility] Neutrophils Absolute Manual 5.72 1.60 - 7.00 10 3/uL [facility] Comment:(BANDS+SEGS) x WBC = NEUT # (ANC) Lymphocyte Absolute Manual 3.64(H) 0.80 - 2.90 10 3/uL [facility] Monocytes Absolute Manual 0.62 0.14 - 0.66 10 3/uL [facility] Eosinophils Absolute Manual 0.42(H) 0.00 - 0.22 10 3/uL [facility] Neutrophil % Manual 55 30 - 60 % [facility] Lymphocyte % Manual 35 20 - 45 % [facility] Monocytes % Manual 6 2 - 10 % [facility] Eosinophils % Manual 4 1 - 6 % [facility] Platelet Estimate Adequate Adequate [facility] RBC Morphology Normal [facility] Blood specimen (specimen) BLOOD SPECIMEN / Unknown 01/27/2014 9:01 PM TAX PREPARER 01/27/2014 9:18 PM TAX PREPARER Jose Murray MD LAB - HEMATOLOGY ORD ERABLES [address] [phone] * GLUCOSE - POINT OF CARE (AMB) [facility] (01/12/2014 8:24 PM CDT) Only the most recent of4 resultswithin the time period is included. Simon Malone MD LAB - POINT OF CARE ORDERABLES [facility] * (ABNORMAL) INFLUENZA A+B ANTIGEN RAPID (01/12/2014 7:34 PM CDT) Influenza A Rapid Test Positive(A) Negative [facility] Influenza B Rapid Test Negative Negative [facility] Nasopharyngeal SPECIMEN FROM NASOPHARYNGEAL STRUCTURE / Unknown 01/12/2014 7:34 PM CDT 01/12/2014 7:55 PM CDT Narrative [facility] - 01/12/2014 8:22 PM CDT Specimen Type->Nasopharyngeal [...] by calling the Director of Microbiology at [phone]. Simon Malone MD LAB - MICROBIOLOGY O RDERABLES [id number] [place] [address], [facility] [phone] * XR CHEST 2VW (01/12/2014 7:14 PM [...] . Simon [facility] Care Teams Wwe Wrestler Relationship Specialty Start Date End Date Malika Campbell, PELLET PREPARATION OPERATOR-SHIPPING AND RECEIVING [address] [place] [address] PCP - General 04/09/22
--- OUTSIDE RECORDS SUMMARY | 2024-05-04 13:31 | XMS_ITS | Clinical Summary ---
Author Organization [facility] Address [address] [place] [address] Phone Care Team Providers Care Paper Pattern Folder Name Role Phone Unavailable Primary Care Provider Unavailabl e Allergies Active Allergy Reactions Criticality Noted Date Comments Cat Hair Standardized Allergenic Extract Swelling Low 11/21/2013 Clindamycin Rash,Shortness of Breath/Wheezing High 05/11/2016 Dog Dander Swelling Low 11/21/2013 Latex Shortness of Breath/Wheezing,Rash High 11/21/2013 Does not include related foods Morphine Hives High 11/15/2023 Paroxetine Rash Medium 05/11/2016 Medications albuterol sulfate HFA 90 mcg/actuation aerosol inhaler Take 2 Puffs by inhalation every 6 hours as needed. Active blood sugar diagnostic Strip Test Blood Sugar 3 times daily. 100 Each 4 Active lancets 33 gauge Test Blood Sugar 3 times daily. 100 Each 4 Active Blood-Glucose Meter (OneTouch Verio Flex meter) Test Blood Sugar 3 times daily. 1 Each 4 Active sucralfate (CARAFATE) 100 mg/mL suspension Take 10 mL (1 Gram) by mouth 4 times daily before meals and at bedtime. 1200 mL 4 Active levothyroxine 50 mcg tablet Take 1 Tablet (50 mcg) by mouth daily in the morning. 30 Tablet 4 Active loperamide (IMODIUM) 2 mg capsule Take 1 Capsule (2 mg) by mouth 4 times daily as needed for Diarrhea/Loose Stools. 60 Capsule 4 Active insulin NPH human (HUMULIN N,NOVOLIN N) 100 unit/mL pen syringe Inject 12 Units by subcutaneous injection 2 times daily before meals. 3 mL 4 Active diltiaZEM (CARDIZEM) 60 mg tablet 1 Tablet (60 mg) by G Tube route every 6 hours. 120 Tablet 4 Active sertraline (ZOLOFT) 100 mg tablet 1 Tablet (100 mg) by NG Tube route daily. 30 Tablet 4 Active traZODone (DESYREL) 50 mg tablet 1 Tablet (50 mg) by G Tube route daily at bedtime. 30 Tablet 4 Active melatonin 3 mg Tablet 2 Tablets (6 mg) by G Tube route nightly as needed for Insomnia. 30 Tablet 4 Active furosemide (Lasix) 40 mg tablet 1 Tablet (40 mg) by G Tube route 2 times daily. 60 Tablet 4 Active oxyCODONE (ROXICODONE) 5 mg/5 mL solutionIndicati ons:Other closed nondisplaced fracture of proximal end of right humerus, initial encounter 5 mL (5 mg) by NG Tube route every 4 hours as needed for Pain, Moderate or Pain, Severe. Max Daily Amount: 30 mg 90 mL 4 Active naloxone (NARCAN) 4 mg/spray [place], Non-Aerosol EMERGENCY USE ONLY: Administer 1 spray (4 mg) in one nostril one time. May repeat in alternating nostrils every 2-3 min until responsive or EMS arrives. 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 Elevated liver enzymes 12/21/2023 Abnormal EKG 12/20/2023 Closed fracture of right proximal humerus 2023 Dysphagia 12/19/2023 Acute blood loss anemia 12/11/2023 Esophageal varices with blee ding in diseases classified elsewhere 12/11/2023 Acute respiratory failure with hypoxia Acute renal failure with tubular necrosis 2023 Bacteremia 12/10/2023 Osteomyelitis of left lower extremity 12/10/2023 Elevated troponin 12/10/2023 High anion gap metabolic acidosis 12/10/2023 Complicated UTI (urinary tract infection) 2023 Aspiration pneumonia of both lower lobes due to gastric secretions 12/10/2023 Acute upper GI hemorrhage 12/10/2023 Shock circulatory 12/10/2023 Melena 12/09/2023 Insulin dependent type 2 diabetes mellitus 11/15 Tobacco use disorder 11/16/2023 Substance use disorder 11/16/2023 Acute metabolic encephalopathy 11/16/2023 Acute hematogenous osteomyelitis of left foot Methamphetamine abuse 11/15/2023 Severe sepsis with septic shock 11/15/2023 Hepatic cirrhosis 10/30/2020 Uncontrolled type 2 diabetes mellitus with hyper glycemia 09/13/2020 History of corneal transplant 03/28/2015 Resolved Problems Problem Noted Date Diagnosed Date Resolved Date Lactic acidosis 11/16/2023 11/23/2023 Encounters Date Type Department Care Team Description 05/01/2024 External Device Data [facility] ABSTRACTION Provider, Abstract 05/01/2024 External Device Data [facility] Provider, Abstract 04/24/2024 External Device Data [facility] Provider, Abstract 04/12/2024 External Device Data [facility]CTION Provider, Abstract 04/03/2024 External Device Data [facility]CTION Provider, Abstract 03/20/2024 External Device Data [facility]STRACTION Provider, Abstract 02/14/2024 External Device Data [facility]STRACTION Provider, Abstract from Last 3 Months Social History Tobacco Use Types Packs/Day Years Used Date Smoking Tobacco: Every Day Cigarettes 1 2.1 Started: 2022 Tobacco Cessation:Ready to Q uit: No; Counseling Given: Not Answered Alcohol Use Standard Drinks/Week Comments Not Currently [...] Sign Reading Time Taken Comments Blood Pressure 153/84 12/30/2023 2:10 PM CDT Pulse 104 12/30/2023 2:10 PM CDT Temperature 36.7 C (98 F) 12/30/2023 2:10 PM CDT Respiratory Rate 18 12/30/2023 2:10 PM CDT Oxygen Saturation 95% 12/30/2023 2:10 PM CDT Inhaled Oxygen Concentration - - Weight 92 kg (202 lb 14.4 oz) 12/19/2023 4:05 AM CDT Height 170.2 cm (5' 7 ) 12/11/2023 10:32 AM CDT Body Mass Index 31.78 12/11/2023 10:32 AM CDT Plan of Treatment Health Maintenance Due Date Last Done Comments DIABETES ANNUAL FOOT EXAM 11/13/2003 DIABETES MICROALBUMIN ANNUAL SCREEN 11/13/2003 LDL CHOLESTEROL ANNUAL 11/13/2003 DTAP/TDAP/TD VACCINES (1 - Tdap) 2004 HEPATITIS B VACCINES (1 of 3 - 19+ 3-dose series) 2004 CERVICAL CANCER SCREENING 11/13/2015 DIABETES ANNUAL RETINAL EXAM 10/02/2018 10/02/2017 INFLUENZA VACCINE (#1) 2023 DIABETES HBA1C Q 6 MONTHS 05/17/20242023, 09/14/2020 HPV VACCINES Aged Out No longer eligi ble based on patient's age to complete this topic Medical Devices Implanted Type Area Res Habilitation Assistant Device Identifier Shelf Expiration Date Model / Serial / Lot Tube Feeding [employer] Gastro 18fr 0100-18 - [id number] Implanted:Qt y: 1 on 12/26/2023 by Dileep Dexter MD at [facility] Feeding Device N/A: Abdomen [employer] f[employer]ARD [id number] 06/06/2026 0100-18 / / [id number] Procedures Procedure Name Priority Date/Time Associated Diagnosis Comments HEMOGLOBIN A1C Stat 11/15/2023 10:08 AM CDT from Last 3 Months or Most Recently Relevant to Health Maintenance Results * (ABNORMAL) HEMOGLOBIN A1C (11/15/2023 10:08 AM CDT) HEMOGLOBIN A1C 11.0(H) <=5.6 % 11/15/2023 1:[address] [facility] EST. AVG GLUCOSE, A1C 269 mg/dL 11/15/2023 1:[address] [facility] Blood Venipuncture / Unknown 11/15/2023 10:08 AM CDT 11/15/2023 10:[address] [facility] - 11/15/2023 1:11 PM CDT HGB A1C INTERPRETATION NORMAL: <5.7% PRE-DIABETES: 5.7 - 6.4% DIABETES: 6.5% OR GREATER Main[employer] [facility] CHEMISTR[facility] ORDERABLES Final Resu lt [facility] CLIA# [id number] [place] [address] from Last 3 Months or Most Recently Relevant to Health Maintenance Insurance [facility] PLAN MEDICAID RX [employer] Commercial Advance Directives For more information, please contact: [phone] * Full Code (Latest Code Status on File) Date Activated Date Inactivated Comments 12/09/2023 9:38 PM 12/30/2023 8:30 PM * Full Code Date Activated Date Inactivated Comments 11/16/2023 7:48 PM 11/17/2023 12:44 PM * Full Code Date Activated Date Inactivated Comments 11/16/2023 7:59 AM 11/16/2023 7:48 PM
--- OUTSIDE RECORDS SUMMARY | 2024-05-04 13:31 | XMS_ITS | Referral Summary ---
Author Organization [facility] Address [address] [place] [address] Care Team Providers Care Tafe Registrar Name Role Phone Malika Campbell CERTIFIED PESTICIDE APPLICATOR-CLINICAL SERVICES CONSULTANT Primary Care Provider [phone] Source Comments [facility],non-owned Affiliates and Associated Physician Practices is amultiple site organization consisting of ambulatory clinics and hospital sitesin [place], [place], [place] and [place]. This disclosure is being madepursuant to the Care Everywhere program and may not contain all information available regarding this patient. Last updated 17.[facility] Allergies Active Allergy Reactions Criticality Noted [...] Comments Blood Pressure 126/83 03/24/2022 4:09 PM GENERAL MANAGER [employer]ARM Pulse 96 03/24/2022 4:09 PM [employer] Temperature 35.9 C (96.7 F) 03/24/2022 4:09 PM [employer] Respiratory Rate 18 03/24/2022 4:09 PM [employer]ARM Oxygen Saturation 100% 03/24/2022 4:09 PM [employer]ARM Inhaled Oxygen Concentration - - Weight 84.8 kg (187 lb) 04/09/2022 11:15 AM GENERAL MANAGER [employer]ARM Height 170.2 cm (5' 7 ) 01/07/2022 [...] Management General On track( 023 11:22 AM GENERAL MANAGER [employer]ARM) No David Meng, RN Note: Expected end date: Interventions: Take all medications as prescribed Let your doctor know right away about any changes in your medications Make sure to request a refill of your medication at least one week prior to your last dose Procedures Procedure Name Priority Date/Time Associated Diagnosis Comments COMPREHENSIVE METABOLIC PANEL STAT 03/24/2022 4:51 PM [employer] HEMOGLOBIN A1C Routine 09/14/2020 3:05 AM CDT HEPATITIS C ANTIBODY Routine 12/12/2019 9:51 AM CDT Cirrhosis of liver without ascites, unspecified hepatic cirrhosis type (HCC) from Last 3 Months or Most Recently Relevant to Health Maintenance Results * (ABNORMAL) COMPREHENSIVE METABOLIC PANEL (03/24/2022 4:51 PM [facility]) BUN 10 7 - 26 mg/dL 03/24/2022 5:42 PM [facility] Creatinine 0.55(L) 0.56 - 0.96 mg/dL 03/24/2022 5:42 PM [facility] Sodium 134(L) 136 - 145 mmol/L 03/24/2022 5:42 PM [facility] Potassium 3.8 3.5 - 4.5 mmol/L 03/24/2022 5:42 PM [facility] Chloride 94(L) 98 - 107 mmol/L 03/24/2022 5:42 PM [facility] CO2 25 22 - 29 mmol/L 03/24/2022 5:42 PM [facility] Glucose 606(HH) 70 - 115 mg/dL 03/24/2022 5:42 PM [facility] Calcium 9.0 8.4 - 10.2 mg/dL 03/24/2022 5:42 PM [facility] Protein Total 7.2 6.0 - 8.3 g/dL 03/24/2022 5:42 PM [facility] Albumin 3.5 3.4 - 5.0 g/dL 03/24/2022 5:42 PM [facility] Bilirubin Total 0.7 0.2 - 1.2 mg/dL 03/24/2022 5:42 PM [facility] Alkaline Phosphatase 127 40 - 150 U/L 03/24/2022 5:42 PM [facility] ALT 19 5 - 55 U/L 03/24/2022 5:42 PM [facility] AST 19 5 - 34 U/L 03/24/2022 5:42 PM [facility] Anion Gap 19(H) 8 - 18 03/24/2022 5:42 PM [facility] BUN/Creatinine Ratio 18 7 - 23 03/24/2022 5:42 PM [facility] Osmolality Calculated 305(H) 270 - 300 mOsm/kg 03/24/2022 5:42 PM [facility] Albumin/Globulin Ratio 0.9(L) 1.1 - 2.3 03/24/2022 5:42 PM [facility] eGFR by CKD-EPI >90 >=90 mL/min/1.7 3 m2 03/24/2022 5:42 PM [facility] Blood BLOOD SPECIMEN / Unknown Venipuncture / Unknown 03/24/2022 4:51 PM [employer]AL MANAGER FARM 03/24/2022 5:03 PM [employer] MANA[employer]ARM Deonna Mukherjee PA-C LAB - CHEMISTRY OR DERABLES [facility] [address] [place] [address], [facility] [phone] * (ABNORMAL) HEMOGLOBIN A1C (09/14/2020 3:05 AM CDT) Hemoglobin A1c 7.0(H) 4.2 - 5.6 % 09/14/2020 4:08 AM CDT [facility] Estimated Average Glucose 154 mg/dL 09/14/2020 4:08 AM CDT -[facility] Blood BLOOD SPECIMEN / Unknown Lab Venipuncture / Unknown 09/14/2020 3:05 AM CDT 09/14/2020 3:37 AM CDT Narrative -[facility] - 09/14/2020 4:08 AM CDT The following cutoff levels are recommended by [place] [employer]. A1c > 6.5% : considered [...] Pink MD LAB - CHEMISTRY ORD ERABLES [facility] [address] * HEPATITIS C ANTIBODY (12/12/2019 9:51 AM CDT) Hepatitis C Antibody Non-react abdirahman Non-reac tive 12/12/2019 12:07 PM CDT [facility] Comment:Hepatitis C Antibody screen indicates no serologic [...] CDT 12/12/2019 11:02 AM CDT Abby Jaquez CERTIFIED PESTICIDE APPLICATOR-CLINICAL SERVICES CONSULTANT LAB - CHEMI STRY ORDERABLES [facility] [address] [place] [address], [facility] [phone] from Last 3 Months or Most Recently Relevant to Health Maintenance Advance Directives * Full Code (Latest Code Status on File) Date Activated Date Inactivated Comments 09/13/2020 4:58 AM 09/14/2020 9:57 AM Care Teams Tafe Registrar Relationship Specialty Start Date End Date Malika Campbell, CERTIFIED PESTICIDE APPLICATOR-CLINICAL SERVICES CONSULTANT [address] [place] [address] PCP - General 04/09/22
--- OUTSIDE RECORDS SUMMARY | 2024-05-04 13:31 | XMS_ITS | Referral Summary ---
Author Organization [facility] Address [address] [place] [address] Care Team Providers Care Portrait Studio Photographer Name Role Phone Barbara Oliva MD Primary Care Provider Miscellaneous, Not In File Unavailable Unava ilable Encounters Date Type Department Care Team Description 04/20/2024 10:00 AM INSTITUTE DIRECTOR Office Visit [facility] Radiology, Interventional Radiology [address] [place] [phone] Sophie Herman PA Dysphagia, oropharyngeal (Primary Dx); Gastrostomy tube in place (HCC) 04/19/2024 Telephone [facility] Radiology, Interventional Radiology [address] [place] [address] [phone] Iker Neal 04/19/2024 Telephone [facility] Radiology, Interventional Radiology [address] [place] [address] [phone] Luma Bach Scheduling Appointments 04/13/2024 Telephone [facility] Radiology, Interventional Radiology [address] [place] [address] [phone] eJssica Beltran RN Appointment 03/26/2024 Telephone [facility] [address] [place] [address] Yuni Balderrama 02/27/2024 9:50 AM INSTITUTE DIRECTOR Office Visit [facility] [address] [place] [address] Traumatic closed displaced fracture of surgical neck of right humerus, with routine healing, subsequent encounter (Primary Dx) 02/23/2024 Telephone [facility] Radiology [facility] [address] [place] [address] Naila Sheehan, KILLIAN 02/14/2024 Telephone [facility] Radiology [address] [place] [phone] Loni Aragon RN 02/14/2024 Orders Only [facility] Radiology [address] [place] [phone] Loni Aragon RN 02/13/[address] [facility] PATHOLOGY [address] [facility] [address] [place] [address] Andie Byrne MD 01/26/2024 9:52 PM INSTITUTE DIRECTOR - 02/13/2024 1:30 PM INSTITUTE DIRECTOR Hospital Encounter [address] [phone] Néstor Blevins MD [place], MD Roger Rubalcava, MD Roberta Hamilton, MD Alberta Yin, Kassidy Rodrigez MD Pressure injury of sacral region, stage 4 (HCC) (Primary Dx); Other closed displaced fracture of proximal end of right humerus, initial encounter; Severe malnutrition (CMS/HCC); Oropharyngeal dysphagia Discharge Disposition: Discharge to 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 No [facility] Problem Noted Date Diagnosed Date Acute blood loss anemia 02/02/2024 Assessment & Plan (02/12/2024 12:56 PM INSTITUTE DIRECTOR): Present on admit, f/u hemoglobin was 6.6 [...] 01/27/2024 Assessment & Plan (02/12/2024 12:58 PM INSTITUTE DIRECTOR): INR 1.39 on admission. History of Doan cirrhosis. Other contibutors may be DOAC vs nutritional. Treated with vitamin K PO 01/26-01/28 F/u INR 1.51 in setting of cirrhosis. Hx chronic LUE DVT. Lovenox held due to anemia. No recent spontaneous bleeding noted. Monitor coags PRN Cirrhosis 01/27/2024 Overview (02/08/2024): History of Doan cirrhosis as per patient. Patient follows with [facility] liver doctor, last seen couple of years ago. -CT11/5: changes of cirrhosis with stigmata of portal hypertension including splenomegaly, recanalized periumbilical vein, small volume ascites, and mild diffuse anasarca. -Liver enzyme elevation could be from DOAN cirrhosis, ongoing antibiotics. -Hepatitis panel negative Assessment & Plan (02/12/2024 12:46 PM INSTITUTE DIRECTOR): History of Doan cirrhosis as per patient. Patient follows with [facility] liver doctor, last seen couple of years [...] Continue to monitor. Plan OP return to [facility] liver clinic, strongly encouraged patient to call for follow up. Chronic deep vein thrombosis (DVT) of left upper extremity 01/26/2024 Assessment & Plan (02/12/2024 12:57 PM INSTITUTE DIRECTOR): Known chronic DVT in left upper extremity distal brachial vein noted 12/2023, home Lovenox held due to recurring anemia requiring blood transfusions and did not tolerate therapeutic AC. Received recent Vit K supplementation this admit. Acute osteomyelitis of sacrum (CMS/HCC) 01/26/20 Assessment & Plan (02/10/2024 1:17 PM INSTITUTE DIRECTOR): Initial encounter, likely has been evolving since [...] needed. Assessment & Plan (02/12/2024 12:59 PM INSTITUTE DIRECTOR): -Prior history: General surgery consulted 01/09 at [...] NGTD. -will need a line placed for half-way IV antibiotics, unable to use RUE (recent [...] 11/24. Fax weekly Labs (CBC, CMP) To: [facility] ([phone]) Complication associated with peripherally inserted central catheter 01/17/2024 Renal abscess 01/17/2024 Assessment & Plan (02/12/2024 12:45 PM INSTITUTE DIRECTOR): POA, associated with pyelonephritis, as above. Resolved. Assessment & Plan (02/10/2024 1:14 PM INSTITUTE DIRECTOR): 37 y.o. female with PMH including cirrhosis of the liver, DM2, R foot OM with partial amputation who was transferred to [facility] 01/25 for pyelonephritis and renal abscess. [...] with wound vac placement and transferred to [facility]. 01/[address] [facility]. Repeat CT A/P shows stable/slight decrease [...] 01/03/2024 Assessment & Plan (02/12/2024 12:45 PM INSTITUTE DIRECTOR): Initially admitted to OSH with prolonged hospitalization s/p G-tube on 12/26/2023 for TFs related to prior dysphagia. 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), Acute dysphagia mostly resolved, presents with mild [...] elsewhere 12/11/2023 Acute respiratory failure with hypoxia ([facility]/HCC) 12/10/2023 Acute upper GI hemorrhage 12/10/2023 Aspiration pneumonia of both lower lobes due to gastric secretions 12/10/2023 Bacteremia 12/10/2023 Elevated troponin 12/10/2023 High anion gap metabolic acidosis 12/10/2023 Osteomyelitis of left lower extremity ([facility]/HCC) 12/10/2023 Other specified abnormal findings of blood chemi stry 12/10/2023 Pneumonitis due to inhalation of food and vomit ([facility]/HCC) 12/10/2023 Melena 12/09/2023 Closed fracture of proximal end of right humerus with routine healing 12/05/2023 NSTEMI (non-ST elevated myocardial infarction) ( [facility]) 12/05/2023 Diabetic foot infection ([facility]/HCC) 12/05/2023 Acute hematogenous osteomyelitis of left foot Traumatic closed displaced f racture of surgical neck of right humerus, with routine healing, subsequent encounter 12/01/2023 Assessment & Plan (02/12/2024 12:42 PM INSTITUTE DIRECTOR): Hx of Right shoulder fx in 11/2023, [...] 12/01/2023 Assessment & Plan (02/10/2024 12:56 PM INSTITUTE DIRECTOR): -Pt with ICU admission 12/08 with enterobacter bacteremia and UTI. Represented to OSH 01/[address] c/f pyelonephritis and multiple renal abscesses to L kidney. She was started on Meropenem. UA later grew ESBL e coli and enterobacter aerogenes. Transferred to [facility] for IR evaluation - BCx 01/08 [...] 09/13/2020 Assessment & Plan (02/12/2024 12:44 PM INSTITUTE DIRECTOR): Continue OSH insulin regimen: Lantus 8 Qpm + SSI, carb consistent diet. Continue to monitor serial accuchecks A1c previously 10.6, (poor OP control) and not checked this admit. Improved glucose control this admit. Anticipate close OP monitoring and follow up for goal care with underlying cirrhosis. NELIDA (acute kidney injury) 09/13/2020 Assessment & Plan (02/12/2024 12:57 PM INSTITUTE DIRECTOR): Associated with hyperkalemia. Likely from decreased p.o. 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 Uric acid normal. ESR CRP elevated Examination benign, would hold off on MRI for now Diarrhea 01/27/2024 02/05/2024 Assessment & Plan (01/27/2024 4:24 PM INSTITUTE DIRECTOR): Questionable diarrhea on admission to OSH. Patient reports normal bowel movements. Closed fracture of right proximal humerus 01/09/2024 02/04/2024 Anemia requiring transfusions 01/03/2024 02/03/2024 Assessment & Plan (01/27/2024 4:26 PM INSTITUTE DIRECTOR): Likely AoCD. Received 1 unit earlier in OSH admission. Hgb 8-9. - Hgb >7, blood consent in chart. Immunizations Name Administration Dates Next Due Influenza, Trivalent, Preservative Free, Intramu scular 02/03/2024 Social History Tobacco Use Types Packs/Day Years Used Date Smoking Tobacco: Every Day Cigarettes Passive Smoke Exposure: Never Smokeless Tobacco: Never Tobacco Cessation:Ready to Q uit: Not Asked; Counseling Given: Not Answered [facility] [employer] Answer Date Recorded In the past 12 months has [employer], [employer], oil, or water yetu threatened to shut off services in your [...] often do you attend chur ch or amish services? 1 to 4 times per year 01/29/2024 Do you belong to any clubs o r organizations such as sikh groups, unions, fraternal or athletic groups, or [...] time in the past 12 m [facility], were you homeless or living in a retirement (including now)? No 01/29/2024 Personal Safety Answer Date Recorded Have you ever been in or are you currently in a harmful physical or emotional relationship or is someone making you feel afraid or unsafe? Denies 02/10/2024 Comments No Sex and Gender Information Value Date Recorded Sex Assigned at Not on file Legal Sex Female 5:35 AM INSTITUTE DIRECTOR Gender Identity Not on file Sexual Orientation Not on file Last Filed Vital Signs Vital Sign Reading Time Taken Comments Blood Pressure 116/80 02/13/2024 10:42 AM INSTITUTE DIRECTOR Pulse 106 02/13/2024 10:42 AM INSTITUTE DIRECTOR Temperature 37 C (98.6 F) 02/13/2024 5:38 AM INSTITUTE DIRECTOR Respiratory Rate 18 02/13/2024 5:38 AM INSTITUTE DIRECTOR Oxygen Saturation 95% 02/13/2024 10:42 AM INSTITUTE DIRECTOR Inhaled Oxygen Concentration - - Weight 72.6 kg (160 lb) 04/20/2024 10:04 AM INSTITUTE DIRECTOR Height 170.2 cm (5' 7 ) 04/20/2024 10:04 AM INSTITUTE DIRECTOR Body Mass Index 25.06 04/20/2024 10:04 AM INSTITUTE DIRECTOR Plan of Treatment Not on file Medical Devices Implanted Type 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 Bone Right: Humerus Musculoskeletal Transplant [id number] 07/06/2027 [id number] / [id number] / Synthes Lcp Combi Philos [id number] 5 Hole Shaft Lock Compression 241.903 - [id number] Implanted:Qty: 1 on 01/31/2024 by Monika Gilbert MD at [facility] Plate Right: Humerus Synthes 241.903 / / Synthes 3.5mm 2.9mm 44mm Self Tap Lock Stardrive Conical Head T15 Full 212.134 - [id number] Implanted:Qty: 1 on 01/31/2024 by Monika Gilbert MD at [facility] Screw Right: Humerus Synthes 212.134 / / Synthes 3.5mm 6mm 60mm 2.5mm Self Tap Small Hexagonal Socket Low Profile 204.860 - [id number] Implanted:Qty: 1 on 01/31/2024 by Monika Gilbert MD at [facility] Screw Right: Humerus Synthes 204.860 / / Synthes 3.5mm 6mm 32mm 2.5mm Self Tap Small Hexagonal Socket Low Profile 204.832 - [id number] Implanted:Qty: 2 on 01/31/2024 by Monika Gilbert MD at [facility] Screw Right: Humerus Synthes 204.832 / / Synthes 3.5mm 54mm Self Tap Lock Stardrive T15 Full Thread Screw Bone 02.212.054 - [id number] Implanted:Qty: 4 on 01/31/2024 by Monika Gilbert MD at [facility] Screw Right: Humerus Synthes 02.212.0 54 / / Synthes 3.5mm 2.9mm 32mm Self Tap Lock Stardrive Conical Head T15 Full 212.112 - [id number] Implanted:Qty: 2 on 01/31/2024 by Monika Gilbert MD at [facility] Screw Right: Humerus Synthes 212.112 / / Synthes 3.5mm 2.9mm 46mm Self Tap Lock Stardrive Conical Head T15 Full 212.136 - [id number] Implanted:Qty: 1 on 01/31/2024 by Monika Gilbert MD at [facility] Screw Right: Humerus Synthes I 212.136 / / Synthes 3.5mm 2.9mm 42mm Self Tap Lock Stardrive Conical Head Full Thread 212.118 - [id number] Implanted:Qty: 1 on 01/31/2024 by Monika Gilbert MD at [facility] Screw Right: Humerus Synthes I 212.118 / / Synthes 3.5mm 2.9mm 48mm Self Tap Lock Fix Angle Low Profile Pelvis Full 212.120 - [id number] Implanted:Qty: 1 on 01/31/2024 by Monika Gilbert MD at [facility] Screw Right: Humerus Synthes I 212.120 / / Synthes 3.5mm 2.9mm 55mm Self Tap Lock Stardrive Conical Head Pelvis Full 212.123 - [id number] Implanted:Qty: 1 on 01/31/2024 by Monika Gilbert MD at 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 Screw Right: Humerus Synthes 204.830 / / Procedures Procedure Name Priority Date/Time Associated Diagnosis Comments POCT GLUCOSE DEVICE Routine 02/13/2024 11:47 AM INSTITUTE DIRECTOR POCT GLUCOSE DEVICE Routine 02/13/2024 7 :56 AM INSTITUTE DIRECTOR EGFR Routine 02/12/2024 11:57 PM INSTITUTE DIRECTOR DIFFERENTIAL AUTO Routine 02/12/2024 11:57 PM INSTITUTE DIRECTOR HEPATIC FUNCTION PANEL Routine 11:57 PM INSTITUTE DIRECTOR PHOSPHORUS Routine 02/12/2024 11:57 PM INSTITUTE DIRECTOR MAGNESIUM Routine 02/12/2024 11:57 PM INSTITUTE DIRECTOR BASIC METABOLIC PANEL Routine 02/12/2024 11:57 PM INSTITUTE DIRECTOR CBC WITH AUTO DIFFERENTIAL Routine 02/12/2024 11:57 PM INSTITUTE DIRECTOR POCT GLUCOSE DEVICE Routine 02/12/2024 8 :27 PM INSTITUTE DIRECTOR POCT GLUCOSE DEVICE Routine 02/12/2024 5 :13 PM INSTITUTE DIRECTOR POCT GLUCOSE DEVICE Routine 02/12/2024 12:27 PM INSTITUTE DIRECTOR POCT GLUCOSE DEVICE Routine 02/12/2024 9 :21 AM INSTITUTE DIRECTOR POCT GLUCOSE DEVICE Routine 02/12/2024 8 :02 AM INSTITUTE DIRECTOR EGFR Routine 02/11/2024 11:54 PM INSTITUTE DIRECTOR DIFFERENTIAL AUTO Routine 02/11/2024 11:54 PM INSTITUTE DIRECTOR HEPATIC FUNCTION PANEL Routine 11:54 PM INSTITUTE DIRECTOR PHOSPHORUS Routine 02/11/2024 11:54 PM INSTITUTE DIRECTOR MAGNESIUM Routine 02/11/2024 11:54 PM INSTITUTE DIRECTOR BASIC METABOLIC PANEL Routine 02/11/2024 11:54 PM INSTITUTE DIRECTOR CBC WITH AUTO DIFFERENTIAL Routine 02/11/2024 11:54 PM INSTITUTE DIRECTOR POCT GLUCOSE DEVICE Routine 02/11/2024 8 :20 PM INSTITUTE DIRECTOR POCT GLUCOSE DEVICE Routine 02/11/2024 4 :42 PM INSTITUTE DIRECTOR POCT GLUCOSE DEVICE Routine 02/11/2024 7 :33 AM INSTITUTE DIRECTOR B RYDER C3 Routine 02/11/2024 12:30 AM INSTITUTE DIRECTOR B RYDER IGG Routine 02/11/2024 12:30 AM INSTITUTE DIRECTOR ANTIBODY IDENTIFICATION Routine 02/10/20 10:02 PM INSTITUTE DIRECTOR TRANSFUSION REACTION EVALUATION Timed 02/10/2024 8:51 PM INSTITUTE DIRECTOR DIRECT ANTIGLOBULIN TEST Timed 02/10/2024 8:51 PM INSTITUTE DIRECTOR EGFR Routine 02/10/2024 8:51 PM INSTITUTE DIRECTOR DIFFERENTIAL AUTO Routine 02/10/2024 8:5 1 PM INSTITUTE DIRECTOR TYPE AND SCREEN Timed 02/10/2024 8:51 PM INSTITUTE DIRECTOR HEPATIC FUNCTION PANEL Routine 8:51 PM INSTITUTE DIRECTOR PHOSPHORUS Routine 02/10/2024 8:51 PM INSTITUTE DIRECTOR MAGNESIUM Routine 02/10/2024 8:51 PM INSTITUTE DIRECTOR BASIC METABOLIC PANEL Routine 02/10/2024 8:51 PM INSTITUTE DIRECTOR CBC WITH AUTO DIFFERENTIAL Routine 02/10/2024 8:51 PM INSTITUTE DIRECTOR POCT GLUCOSE DEVICE Routine 02/10/2024 8 :28 PM INSTITUTE DIRECTOR POCT GLUCOSE DEVICE Routine 02/10/2024 5 :13 PM INSTITUTE DIRECTOR CENTRAL LINE PLACEMENT > 5 YEARS IP Routine 02/10/2024 3:32 PM INSTITUTE DIRECTOR POCT GLUCOSE DEVICE Routine 02/10/2024 12:31 PM INSTITUTE DIRECTOR POCT GLUCOSE DEVICE Routine 02/10/2024 8 :15 AM INSTITUTE DIRECTOR EGFR Routine 02/09/2024 9:52 PM INSTITUTE DIRECTOR DIFFERENTIAL AUTO Routine 02/09/2024 9:5 2 PM INSTITUTE DIRECTOR VANCOMYCIN LEVEL RANDOM Routine 02/09/20 9:52 PM INSTITUTE DIRECTOR HEPATIC FUNCTION PANEL Routine 9:52 PM INSTITUTE DIRECTOR PHOSPHORUS Routine 02/09/2024 9:52 PM INSTITUTE DIRECTOR MAGNESIUM Routine 02/09/2024 9:52 PM INSTITUTE DIRECTOR BASIC METABOLIC PANEL Routine 02/09/2024 9:52 PM INSTITUTE DIRECTOR CBC WITH AUTO DIFFERENTIAL Routine 02/09/2024 9:52 PM INSTITUTE DIRECTOR POCT GLUCOSE DEVICE Routine 02/09/2024 8 :32 PM INSTITUTE DIRECTOR POCT GLUCOSE DEVICE Routine 02/09/2024 5 :55 PM INSTITUTE DIRECTOR URINALYSIS, MICROSCOPIC ONLY STAT 02/09/2024 5:09 PM INSTITUTE DIRECTOR URINE CULTURE STAT 02/09/2024 5:09 PM INSTITUTE DIRECTOR URINALYSIS AND REFLEX TO MICROSCOPIC AND CULTURE STAT 02/09/2024 5:09 PM INSTITUTE DIRECTOR XR ABDOMEN AP 1 VIEW ED Urgent/IP Urgent 02/09/2024 4:09 PM INSTITUTE DIRECTOR POCT GLUCOSE DEVICE Routine 02/09/2024 12:51 PM INSTITUTE DIRECTOR POCT GLUCOSE DEVICE Routine 02/09/2024 7 :40 AM INSTITUTE DIRECTOR EGFR Timed 02/09/2024 12:07 AM INSTITUTE DIRECTOR CREATININE Timed 02/09/2024 12:07 AM INSTITUTE DIRECTOR VANCOMYCIN LEVEL RANDOM Routine 02/08/20 9:50 PM INSTITUTE DIRECTOR EGFR Routine 02/08/2024 9:50 PM INSTITUTE DIRECTOR DIFFERENTIAL AUTO Routine 02/08/2024 9:5 0 PM INSTITUTE DIRECTOR PROTIME-INR Routine 02/08/2024 9:50 PM INSTITUTE DIRECTOR HEPATIC FUNCTION PANEL Routine 9:50 PM INSTITUTE DIRECTOR PHOSPHORUS Routine 02/08/2024 9:50 PM INSTITUTE DIRECTOR MAGNESIUM Routine 02/08/2024 9:50 PM INSTITUTE DIRECTOR BASIC METABOLIC PANEL Routine 02/08/2024 9:50 PM INSTITUTE DIRECTOR CBC WITH AUTO DIFFERENTIAL Routine 02/08/2024 9:50 PM INSTITUTE DIRECTOR POCT GLUCOSE DEVICE Routine 02/08/2024 8 :31 PM INSTITUTE DIRECTOR POCT GLUCOSE DEVICE Routine 02/08/2024 5 :56 PM INSTITUTE DIRECTOR VANCOMYCIN LEVEL TROUGH Timed 02/08/20 1:55 PM INSTITUTE DIRECTOR POCT GLUCOSE DEVICE Routine 02/08/2024 11:40 AM INSTITUTE DIRECTOR POCT GLUCOSE DEVICE Routine 02/08/2024 8 :20 AM INSTITUTE DIRECTOR EGFR Routine 02/07/2024 9:30 PM INSTITUTE DIRECTOR DIFFERENTIAL AUTO Routine 02/07/2024 9:3 0 PM INSTITUTE DIRECTOR HEPATIC FUNCTION PANEL Routine 9:30 PM INSTITUTE DIRECTOR PHOSPHORUS Routine 02/07/2024 9:30 PM INSTITUTE DIRECTOR MAGNESIUM Routine 02/07/2024 9:30 PM INSTITUTE DIRECTOR BASIC METABOLIC PANEL Routine 02/07/2024 9:30 PM INSTITUTE DIRECTOR CBC WITH AUTO DIFFERENTIAL Routine 02/07/2024 9:30 PM INSTITUTE DIRECTOR POCT GLUCOSE DEVICE Routine 02/07/2024 8 :20 PM INSTITUTE DIRECTOR POCT GLUCOSE DEVICE Routine 02/07/2024 4 :41 PM INSTITUTE DIRECTOR POCT GLUCOSE DEVICE Routine 02/07/2024 12:22 PM INSTITUTE DIRECTOR MYCOLOGY (FUNGAL) CULTURE Routine 02/07/2024 11:30 AM INSTITUTE DIRECTOR TISSUE AEROBIC AND ANAEROBIC CULTURE AND GRAM STAIN Routine 02/07/2024 11:30 AM INSTITUTE DIRECTOR MYCOBACTERIOLOGY AFB CULTURE AND ACID-FAST STAIN Routine 02/07/2024 11:30 AM INSTITUTE DIRECTOR MYCOLOGY (FUNGAL) CULTURE AND STAIN Routine 02/07/2024 11:30 AM INSTITUTE DIRECTOR MYCOBACTERIOLOGY AFB CULTURE AND ACID-FAST STAIN Routine 02/07/2024 11:30 AM INSTITUTE DIRECTOR AEROBIC AND ANAEROBIC CULTURE AND GRAM STAIN Routine 02/07/2024 11:30 AM INSTITUTE DIRECTOR BIOPSY DEEP BONE IP Routine 02/07/2024 11:29 AM INSTITUTE DIRECTOR SURGICAL PATHOLOGY Routine 02/07/2024 11:15 AM INSTITUTE DIRECTOR POCT GLUCOSE DEVICE Routine 02/07/2024 8 :36 AM INSTITUTE DIRECTOR POCT GLUCOSE DEVICE Routine 02/07/2024 7 :46 AM INSTITUTE DIRECTOR VANCOMYCIN LEVEL TROUGH Timed 02/07/20 2:37 AM INSTITUTE DIRECTOR EGFR Routine 02/06/2024 9:36 PM INSTITUTE DIRECTOR DIFFERENTIAL AUTO Routine 02/06/2024 9:3 6 PM INSTITUTE DIRECTOR HEPATIC FUNCTION PANEL Routine 9:36 PM INSTITUTE DIRECTOR PHOSPHORUS Routine 02/06/2024 9:36 PM INSTITUTE DIRECTOR MAGNESIUM Routine 02/06/2024 9:36 PM INSTITUTE DIRECTOR BASIC METABOLIC PANEL Routine 02/06/2024 9:36 PM INSTITUTE DIRECTOR CBC WITH AUTO DIFFERENTIAL Routine 02/06/2024 9:36 PM INSTITUTE DIRECTOR POCT GLUCOSE DEVICE Routine 02/06/2024 9 :32 PM INSTITUTE DIRECTOR POCT GLUCOSE DEVICE Routine 02/06/2024 5 :33 PM INSTITUTE DIRECTOR POCT GLUCOSE DEVICE Routine 02/06/2024 11:52 AM INSTITUTE DIRECTOR POCT GLUCOSE DEVICE Routine 02/06/2024 8 :16 AM INSTITUTE DIRECTOR TROPONIN I HIGH-SENSITIVITY SERIES (BASELINE, 2HR, 4HR, 6HR) Timed 02/06/2024 6:53 AM INSTITUTE DIRECTOR EGFR Routine 02/05/2024 10:32 PM INSTITUTE DIRECTOR DIFFERENTIAL AUTO Routine 02/05/2024 10:32 PM INSTITUTE DIRECTOR HEPATIC FUNCTION PANEL Routine 10:32 PM INSTITUTE DIRECTOR PHOSPHORUS Routine 02/05/2024 10:32 PM INSTITUTE DIRECTOR MAGNESIUM Routine 02/05/2024 10:32 PM INSTITUTE DIRECTOR BASIC METABOLIC PANEL Routine 02/05/2024 10:32 PM INSTITUTE DIRECTOR CBC WITH AUTO DIFFERENTIAL Routine 02/05/2024 10:32 PM INSTITUTE DIRECTOR POCT GLUCOSE DEVICE Routine 02/05/2024 9 :13 PM INSTITUTE DIRECTOR POCT GLUCOSE DEVICE Routine 02/05/2024 5 :38 PM INSTITUTE DIRECTOR BLOOD CULTURE Routine 02/05/2024 3:25 PM INSTITUTE DIRECTOR BLOOD CULTURE Routine 02/05/2024 3:25 PM INSTITUTE DIRECTOR POCT GLUCOSE DEVICE Routine 02/05/2024 2 :10 PM INSTITUTE DIRECTOR POCT GLUCOSE DEVICE Routine 02/05/2024 9 :18 AM INSTITUTE DIRECTOR WOUND CARE Routine 02/05/2024 8:16 AM INSTITUTE DIRECTOR Pressure injury of sacral region, stage 4 (HCC) POTASSIUM, WHOLE BLOOD Timed 8:08 AM INSTITUTE DIRECTOR POTASSIUM LEVEL Timed 02/05/2024 7:45 AM INSTITUTE DIRECTOR POCT GLUCOSE DEVICE Routine 02/05/2024 6 :00 AM INSTITUTE DIRECTOR POCT GLUCOSE DEVICE Routine 02/05/2024 5 :04 AM INSTITUTE DIRECTOR POCT GLUCOSE DEVICE Routine 02/05/2024 4 :11 AM INSTITUTE DIRECTOR ECG 12-LEAD STAT 02/05/2024 3:22 AM INSTITUTE DIRECTOR EGFR Routine 02/04/2024 9:38 PM INSTITUTE DIRECTOR DIFFERENTIAL AUTO Routine 02/04/2024 9:3 8 PM INSTITUTE DIRECTOR HEPATIC FUNCTION PANEL Routine 9:38 PM INSTITUTE DIRECTOR PHOSPHORUS Routine 02/04/2024 9:38 PM INSTITUTE DIRECTOR MAGNESIUM Routine 02/04/2024 9:38 PM INSTITUTE DIRECTOR BASIC METABOLIC PANEL Routine 02/04/2024 9:38 PM INSTITUTE DIRECTOR CBC WITH AUTO DIFFERENTIAL Routine 02/04/2024 9:38 PM INSTITUTE DIRECTOR POCT GLUCOSE DEVICE Routine 02/04/2024 9 :04 PM INSTITUTE DIRECTOR POCT GLUCOSE DEVICE Routine 02/04/2024 5 :12 PM INSTITUTE DIRECTOR POCT GLUCOSE DEVICE Routine 02/04/2024 11:56 AM INSTITUTE DIRECTOR HEMOGLOBIN AND HEMATOCRIT Timed 02/04/2024 11:16 AM INSTITUTE DIRECTOR MRI SACRUM COCCYX WO CONTRAST ED Urgent/IP Urgent 02/04/2024 10:53 AM INSTITUTE DIRECTOR POCT GLUCOSE DEVICE Routine 02/04/2024 7 :44 AM INSTITUTE DIRECTOR TRANSFUSE RED BLOOD CELLS Timed 02/04/2024 5:50 AM INSTITUTE DIRECTOR TYPE AND SCREEN Timed 02/04/2024 1:27 AM INSTITUTE DIRECTOR PREPARE RBC Timed 02/04/2024 12:43 AM INSTITUTE DIRECTOR EGFR Routine 02/03/2024 9:45 PM INSTITUTE DIRECTOR DIFFERENTIAL AUTO Routine 02/03/2024 9:4 5 PM INSTITUTE DIRECTOR HEPATIC FUNCTION PANEL Routine 9:45 PM INSTITUTE DIRECTOR PHOSPHORUS Routine 02/03/2024 9:45 PM INSTITUTE DIRECTOR MAGNESIUM Routine 02/03/2024 9:45 PM INSTITUTE DIRECTOR BASIC METABOLIC PANEL Routine 02/03/2024 9:45 PM INSTITUTE DIRECTOR CBC WITH AUTO DIFFERENTIAL Routine 02/03/2024 9:45 PM INSTITUTE DIRECTOR POCT GLUCOSE DEVICE Routine 02/03/2024 9 :39 PM INSTITUTE DIRECTOR POCT GLUCOSE DEVICE Routine 02/03/2024 5 :47 PM INSTITUTE DIRECTOR POCT GLUCOSE DEVICE Routine 02/03/2024 2 :[address] ABDOMEN PELVIS W CONTRAST IP Routine 02/03/2024 10:03 AM INSTITUTE DIRECTOR POCT GLUCOSE DEVICE Routine 02/03/2024 9 :24 AM INSTITUTE DIRECTOR EGFR Routine 02/02/2024 10:40 PM INSTITUTE DIRECTOR DIFFERENTIAL AUTO Routine 02/02/2024 10:40 PM INSTITUTE DIRECTOR HEPATIC FUNCTION PANEL Routine 10:40 PM INSTITUTE DIRECTOR PHOSPHORUS Routine 02/02/2024 10:40 PM INSTITUTE DIRECTOR MAGNESIUM Routine 02/02/2024 10:40 PM INSTITUTE DIRECTOR BASIC METABOLIC PANEL Routine 02/02/2024 10:40 PM INSTITUTE DIRECTOR CBC WITH AUTO DIFFERENTIAL Routine 02/02/2024 10:40 PM INSTITUTE DIRECTOR POCT GLUCOSE DEVICE Routine 02/02/2024 8 :25 PM INSTITUTE DIRECTOR HEMOGLOBIN AND HEMATOCRIT Timed 02/02/2024 5:56 PM INSTITUTE DIRECTOR POCT GLUCOSE DEVICE Routine 02/02/2024 4 :53 PM INSTITUTE DIRECTOR POCT GLUCOSE DEVICE Routine 02/02/2024 12:56 PM INSTITUTE DIRECTOR TRANSFUSE RED BLOOD CELLS Timed 02/02/2024 11:07 AM INSTITUTE DIRECTOR POCT GLUCOSE DEVICE Routine 02/02/2024 9 :48 AM INSTITUTE DIRECTOR HEPATITIS PANEL, ACUTE Routine 9:00 PM INSTITUTE DIRECTOR LIPID PANEL Routine 01/26/2024 11:33 PM INSTITUTE DIRECTOR HEMOGLOBIN A1C Routine 12/01/2023 6:48 PM CDT from Last 3 Months or Most Recently Relevant to Health Maintenance Results * POCT glucose (02/13/2024 11:47 AM INSTITUTE DIRECTOR) Glucose, POC 122 70 - 199 mg/dL Blood 02/13/2024 11:4 7 AM INSTITUTE DIRECTOR 02/13/2024 11:47 AM INSTITUTE DIRECTOR us Kassidy Pinzon MD LAB POCT ORDERABLES - DEVIC E Final Result Performing Organization Address [facility] Co de Phone Number [facility] Department [place] [place] [address] * POCT glucose (02/13/2024 7:56 AM INSTITUTE DIRECTOR) Glucose, POC 95 70 - 199 mg/dL Blood 02/13/2024 7:56 AM INSTITUTE DIRECTOR 02/13/2024 7:56 AM INSTITUTE DIRECTOR us Kassidy Pinzon MD LAB POCT ORDERABLES - DEVIC E Final Result Performing Organization Address City/State/[facility] Co de Phone Number [facility] [place] [place] [address] * eGFR (02/12/2024 11:57 PM INSTITUTE DIRECTOR) eGFR 79 >=60 mL/min/1. 73 m2 Comment: [...] reviewed 2021. Blood 02/12/2024 11:5 7 PM INSTITUTE DIRECTOR 02/13/2024 12:29 AM INSTITUTE DIRECTOR Carin Granados MD LAB BLOOD ORDERABLES Tete palomino Result [facility] Department [place] [address] * Differential, auto (02/12/2024 11:57 PM INSTITUTE DIRECTOR) Pathologist [facility] Neutrophil abs 4.2 1.5 - 6.5 K/cumm Imm gran abs 0.0 0.0 - 0.1 K/cumm [facility] Lymphocyte abs 1.2 0.8 - 3.3 K/cumm [facility] Monocyte abs 0.6 0.2 - 0.8 K/cumm [facility] Eosinophil abs 0.2 0.0 - 0.5 K/cumm [facility] Basophil abs 0.0 0.0 - 0.1 K/cumm [facility] Neutrophil pct 67.3 % [facility] Comment: Interpretive Data Percent cell count reference ranges are not reported, since discordance with absolute values may lead to misinterpretation of CBC data. Current Interpretive Data was last revised on 2017. Imm gran pct 0.3 % [facility] Comment: Interpretive Data Percent cell count reference ranges are not reported, since discordance with absolute values may lead to misinterpretation of CBC data. Current Interpretive Data was last revised on 2017. Lymphocyte pct 19.2 % [facility] Comment: Interpretive Data Percent cell count reference ranges are not reported, since discordance with absolute values may lead to misinterpretation of CBC data. Current Interpretive Data was last revised on 2017. Monocyte pct 9.4 % [facility] Comment: Interpretive Data Percent cell count reference ranges are not reported, since discordance with absolute values may lead to misinterpretation of CBC data. Current Interpretive Data was last revised on 2017. Eosinophil pct 3.5 % [facility] Comment: Interpretive Data Percent cell count reference ranges are not reported, since discordance with absolute values may lead to misinterpretation of CBC data. Current Interpretive Data was last revised on 2017. Basophil pct 0.3 % [facility] Comment: Interpretive Data Percent cell count reference ranges are not reported, since discordance with absolute values may lead to misinterpretation of CBC data. Current Interpretive Data was last revised on 2017. Blood 02/12/2024 11:5 7 PM INSTITUTE DIRECTOR 02/13/2024 12:29 AM INSTITUTE DIRECTOR us Carin Granados MD LAB BLOOD ORDERABLES Tete palomino Result [facility] Department [place] [address] * (ABNORMAL) CBC with auto differential (02/12/2024 11:57 PM INSTITUTE DIRECTOR) WBC 6.3 3.8 - 9.9 K/cumm Hgb 7.2(L) 11.9 - 15.5 g/dL [facility] Hct 23.1(L) 35.6 - 45.5 % [facility] Plt 208 150 - 400 K/cumm [facility] MPV 9.7 9.1 - 12.3 fL [facility] RBC 2.77(L) 3.90 - 5.20 M/cumm [facility] MCV 83.4 81.3 - 96.4 fL [facility] MCH 26.0(L) 27.1 - 33.3 pg [facility] MCHC 31.2(L) 32.3 - 35.7 g/dL [facility] RDW CV 14.4 11.1 - 14.9 % [facility] RDW SD 43.3 35.7 - 48.1 fL [facility] NRBC abs 0.00 0.00 - 0.01 K/cumm [facility] Blood 02/12/2024 11:5 7 PM INSTITUTE DIRECTOR 02/13/2024 12:29 AM INSTITUTE DIRECTOR Carin Granados MD LAB BLOOD ORDERABLES Tete l Result Performing Organization Address [facility] de Phone Number [facility] Department [place] [address] * Phosphorus (02/12/2024 11:57 PM INSTITUTE DIRECTOR) Phosphorus, pl 2.8 2.3 - 4.5 mg/dL Blood 02/12/2024 11:5 7 PM INSTITUTE DIRECTOR 02/13/2024 12:29 AM INSTITUTE DIRECTOR Carin Granados MD LAB BLOOD ORDERABLES Tete l Result Performing Organization Address City/[facility] de Phone Number [facility] Department [place] [address] * Magnesium (02/12/2024 11:57 PM INSTITUTE DIRECTOR) Magnesium 2.2 1.4 - 2.5 mg/dL Blood 02/12/2024 11:5 7 PM INSTITUTE DIRECTOR 02/13/2024 12:29 AM INSTITUTE DIRECTOR Carin Granados MD LAB BLOOD ORDERABLES Tete l Result Performing Organization Address City/[facility]/ZIP Co de Phone Number [facility] Department [place] [address] * (ABNORMAL) Hepatic function panel (02/12/2024 11:57 PM INSTITUTE DIRECTOR) [facility] Bilirubin, total 0.5 0.1 - 1.2 mg/dL Bilirubin, direct 0.2 0.1 - 0.3 mg/dL [facility] Protein, pl 7.2 6.5 - 8.5 g/dL [facility] Albumin 3.2(L) 3.5 - 5.0 g/dL [facility] Alk phos 330(H) 40 - 130 Units/L [facility] ALT 29 7 - 45 Units/L [facility] AST 68(H) 10 - 45 Units/L [facility] Blood 02/12/2024 11:5 7 PM INSTITUTE DIRECTOR 02/13/2024 12:29 AM INSTITUTE DIRECTOR Carin Granados MD LAB BLOOD ORDERABLES Tete l Result [facility] Department [place] [address] * Basic metabolic panel (02/12/2024 11:57 PM INSTITUTE DIRECTOR) [facility] Sodium 140 135 - 145 mmol/L Potassium, pl 3.9 3.3 - 4.9 mmol/L [facility] Chloride 100 97 - 110 mmol/L [facility] CO2 30 22 - 32 mmol/L [facility] Anion gap 10 2 - 15 mmol/L [facility] BUN 24 6 - 25 mg/dL [facility] Creatinine 0.95 0.60 - 1.10 mg/dL [facility] Glucose 165 70 - 199 mg/dL [facility] Comment: Interpretive Data Fasting glucose [...] 2022. Calcium 8.9 8.5 - 10.3 mg/dL [facility] Blood 02/12/2024 11:5 7 PM INSTITUTE DIRECTOR 02/13/2024 12:29 AM INSTITUTE DIRECTOR us Carin Granados MD LAB BLOOD ORDERABLES Tete l Result Performing Organization Address City/[facility] Co de Phone Number [facility] [place] [place] [address] * POCT glucose (02/12/2024 8:27 PM INSTITUTE DIRECTOR) Glucose, POC 167 70 - 199 mg/dL Blood 02/12/2024 8:27 PM INSTITUTE DIRECTOR 02/12/2024 8:27 PM INSTITUTE DIRECTOR us Kassidy Pinzon MD LAB POCT ORDERABLES - DEVIC E Final Result Performing Organization Address City/[facility] Co de Phone Number [facility] Department [place] [place] [address] * POCT glucose (02/12/2024 5:13 PM INSTITUTE DIRECTOR) Glucose, POC 167 70 - 199 mg/dL Blood 02/12/2024 5:13 PM INSTITUTE DIRECTOR 02/12/2024 5:13 PM INSTITUTE DIRECTOR us Kassidy Pinzon MD LAB POCT ORDERABLES - DEVIC E Final Result Performing Organization Address City/[facility] Co de Phone Number [facility] [place] [address] * POCT glucose (02/12/2024 12:27 PM INSTITUTE DIRECTOR) Glucose, POC 139 70 - 199 mg/dL Blood 02/12/2024 12:2 7 PM INSTITUTE DIRECTOR 02/12/2024 12:27 PM INSTITUTE DIRECTOR Kassidy Pinzon MD LAB POCT ORDERABLES - DEVIC E Final Result Performing Organization Address [facility] Co de Phone Number [facility] [place] [address] * POCT glucose (02/12/2024 9:21 AM INSTITUTE DIRECTOR) Glucose, POC 95 70 - 199 mg/dL Blood 02/12/2024 9:21 AM INSTITUTE DIRECTOR 02/12/2024 9:21 AM INSTITUTE DIRECTOR Kassidy Pinzon MD LAB POCT ORDERABLES - DEVIC E Final Result Performing Organization Address [facility] Co de Phone Number [facility] [place] [address] * POCT glucose (02/12/2024 8:02 AM INSTITUTE DIRECTOR) [facility] Glucose, POC 91 70 - 199 mg/dL Blood 02/12/2024 8:02 AM INSTITUTE DIRECTOR 02/12/2024 8:02 AM INSTITUTE DIRECTOR Kassidy Pinzon MD LAB POCT ORDERABLES - DEVIC E Final Result Performing Organization Address City/[facility] de Phone Number [facility] [place] [address] * eGFR (02/11/2024 11:54 PM INSTITUTE DIRECTOR) [facility] eGFR 65 >=60 mL/min/1. 73 m2 Comment: [...] reviewed 2021. Blood 02/11/2024 11:5 4 PM INSTITUTE DIRECTOR 02/12/2024 12:43 AM INSTITUTE DIRECTOR us Carin Granados MD LAB BLOOD ORDERABLES Tete palomino Result [facility] Department [place] [address] * Differential, auto (02/11/2024 11:54 PM INSTITUTE DIRECTOR) Pathologist [facility] Neutrophil abs 4.3 1.5 - 6.5 K/cumm Imm gran abs 0.0 0.0 - 0.1 K/cumm [facility] Lymphocyte abs 1.3 0.8 - 3.3 K/cumm [facility] Monocyte abs 0.7 0.2 - 0.8 K/cumm [facility] Eosinophil abs 0.2 0.0 - 0.5 K/cumm [facility] Basophil abs 0.0 0.0 - 0.1 K/cumm [facility] Neutrophil pct 66.6 % [facility] Comment: Interpretive Data Percent cell count reference ranges are not reported, since discordance with absolute values may lead to misinterpretation of CBC data. Current Interpretive Data was last revised on 2017. Imm gran pct 0.3 % [facility] Comment: Interpretive Data Percent cell count reference ranges are not reported, since discordance with absolute values may lead to misinterpretation of CBC data. Current Interpretive Data was last revised on 2017. Lymphocyte pct 19.4 % [facility] Comment: Interpretive Data Percent cell count reference ranges are not reported, since discordance with absolute values may lead to misinterpretation of CBC data. Current Interpretive Data was last revised on 2017. Monocyte pct 10.1 % [facility] Comment: Interpretive Data Percent cell count reference ranges are not reported, since discordance with absolute values may lead to misinterpretation of CBC data. Current Interpretive Data was last revised on 2017. Eosinophil pct 3.1 % [facility] Comment: Interpretive Data Percent cell count reference ranges are not reported, since discordance with absolute values may lead to misinterpretation of CBC data. Current Interpretive Data was last revised on 2017. Basophil pct 0.5 % [facility] Comment: Interpretive Data Percent cell count reference ranges are not reported, since discordance with absolute values may lead to misinterpretation of CBC data. Current Interpretive Data was last revised on 2017. Blood 02/11/2024 11:5 4 PM INSTITUTE DIRECTOR 02/12/2024 12:42 AM INSTITUTE DIRECTOR us Carin Granados MD LAB BLOOD ORDERABLES Tete palomino Result [facility] Department [place] [address] * (ABNORMAL) CBC with auto differential (02/11/2024 11:54 PM INSTITUTE DIRECTOR) WBC 6.4 3.8 - 9.9 K/cumm Hgb 7.4(L) 11.9 - 15.5 g/dL [facility] Hct 24.0(L) 35.6 - 45.5 % [facility] Plt 230 150 - 400 K/cumm [facility] MPV 9.8 9.1 - 12.3 fL [facility] RBC 2.88(L) 3.90 - 5.20 M/cumm [facility] MCV 83.3 81.3 - 96.4 fL [facility] MCH 25.7(L) 27.1 - 33.3 pg [facility] MCHC 30.8(L) 32.3 - 35.7 g/dL [facility] RDW CV 14.3 11.1 - 14.9 % [facility] RDW SD 42.9 35.7 - 48.1 fL [facility] NRBC abs 0.00 0.00 - 0.01 K/cumm [facility] Blood 02/11/2024 11:5 4 PM INSTITUTE DIRECTOR 02/12/2024 12:42 AM INSTITUTE DIRECTOR Carin Granados MD LAB BLOOD ORDERABLES Tete l Result [facility] [place] [address] * Phosphorus (02/11/2024 11:54 PM INSTITUTE DIRECTOR) Phosphorus, pl 2.9 2.3 - 4.5 mg/dL Blood 02/11/2024 11:5 4 PM INSTITUTE DIRECTOR 02/12/2024 12:43 AM INSTITUTE DIRECTOR Carin Granados MD LAB BLOOD ORDERABLES Tete l Result Performing Organization Address City/[facility] Co de Phone Number [facility] [place] [address] * Magnesium (02/11/2024 11:54 PM INSTITUTE DIRECTOR) Magnesium 2.5 1.4 - 2.5 mg/dL Blood 02/11/2024 11:5 4 PM INSTITUTE DIRECTOR 02/12/2024 12:43 AM INSTITUTE DIRECTOR Carin Granados MD LAB BLOOD ORDERABLES Tete l Result [facility] [place] [address] * (ABNORMAL) Hepatic function panel (02/11/2024 11:54 PM INSTITUTE DIRECTOR) [facility] Bilirubin, total 0.6 0.1 - 1.2 mg/dL Bilirubin, direct 0.2 0.1 - 0.3 mg/dL [facility] Protein, pl 7.3 6.5 - 8.5 g/dL [facility] Albumin 3.1(L) 3.5 - 5.0 g/dL [facility] Alk phos 317(H) 40 - 130 Units/L [facility] ALT 27 7 - 45 Units/L [facility] AST 69(H) 10 - 45 Units/L [facility] Blood 02/11/2024 11:5 4 PM INSTITUTE DIRECTOR 02/12/2024 12:43 AM INSTITUTE DIRECTOR us Carin Granados MD LAB BLOOD ORDERABLES Tete l Result [facility] Department [place] [address] * (ABNORMAL) Basic metabolic panel (02/11/2024 11:54 PM INSTITUTE DIRECTOR) [facility] Sodium 138 135 - 145 mmol/L Potassium, pl 4.5 3.3 - 4.9 mmol/L [facility] Chloride 99 97 - 110 mmol/L [facility] CO2 31 22 - 32 mmol/L [facility] Anion gap 8 2 - 15 mmol/L [facility] BUN 26(H) 6 - 25 mg/dL [facility] Creatinine 1.11(H) 0.60 - 1.10 mg/dL [facility] Glucose 96 70 - 199 mg/dL [facility] Comment: Interpretive Data Fasting glucose [...] 2022. Calcium 9.0 8.5 - 10.3 mg/dL [facility] Blood 02/11/2024 11:5 4 PM INSTITUTE DIRECTOR 02/12/2024 12:43 AM INSTITUTE DIRECTOR Carin Granados MD LAB BLOOD ORDERABLES Tete l Result Performing Organization Address City/[facility]/ZIP Co de Phone Number [facility] [place] [place] [address] * POCT glucose (02/11/2024 8:20 PM INSTITUTE DIRECTOR) Glucose, POC 114 70 - 199 mg/dL Blood 02/11/2024 8:20 PM INSTITUTE DIRECTOR 02/11/2024 8:20 PM INSTITUTE DIRECTOR Kassidy Pinzon MD LAB POCT ORDERABLES - DEVIC E Final Result Performing Organization Address City/[facility] Co de Phone Number [facility] [place] [address] * POCT glucose (02/11/2024 4:42 PM INSTITUTE DIRECTOR) Glucose, POC 106 70 - 199 mg/dL Blood 02/11/2024 4:42 PM INSTITUTE DIRECTOR 02/11/2024 4:42 PM INSTITUTE DIRECTOR Kassidy Pinzon MD LAB POCT ORDERABLES - DEVIC E Final Result Performing Organization Address City/[facility] Co de Phone Number [facility] [place] [address] * POCT glucose (02/11/2024 7:33 AM INSTITUTE DIRECTOR) Glucose, POC 99 70 - 199 mg/dL Blood 02/11/2024 7:33 AM INSTITUTE DIRECTOR 02/11/2024 7:33 AM INSTITUTE DIRECTOR us Kassidy Pinzon MD LAB POCT ORDERABLES - DEVIC E Final Result Performing Organization Address [facility] Co de Phone Number [facility] [place] [address] * B RYDER IGG (02/11/2024 12:30 AM INSTITUTE DIRECTOR) Direct Ruiz IgG Negative Blood 02/11/2024 12:3 0 AM INSTITUTE DIRECTOR 02/11/2024 12:30 AM INSTITUTE DIRECTOR us Kassidy Pinzon MD LAB BODY FLUIDS AND STOOLS ORDERABLES Final Result Performing Organization Address [facility] de Phone Number [facility] [place] [address] * (ABNORMAL) B RYDER C3 (02/11/2024 12:30 AM INSTITUTE DIRECTOR) Direct Ruiz C3 Positive(A ) Blood 02/11/2024 12:3 0 AM INSTITUTE DIRECTOR 02/11/2024 12:30 AM INSTITUTE DIRECTOR us Kassidy Pinzon MD LAB BLOOD ORDERABLES Final Result Performing Organization Address [facility] Co de Phone Number [facility] Department [place] [address] * Antibody identification (02/10/2024 10:02 PM INSTITUTE DIRECTOR) Antibody ID 1 Anti-K Comment:Previous anti-E not reacting Blood 02/10/2024 10:0 2 PM INSTITUTE DIRECTOR 02/10/2024 10:02 PM INSTITUTE DIRECTOR Kassidy Pinzon MD LAB BLOOD BANK TEST ORDERAB LES Final Result Performing Organization Address [facility] Co de Phone Number [facility] Department [place] [address] * eGFR (02/10/2024 8:51 PM INSTITUTE DIRECTOR) Pathologist [facility] eGFR 70 >=60 mL/min/1. 73 m2 Comment: [...] last reviewed 2021. Blood 02/10/2024 8:51 PM INSTITUTE DIRECTOR 02/10/2024 9:12 PM INSTITUTE DIRECTOR us Carin Granados MD LAB BLOOD ORDERABLES Tete palomino Result [facility] Department [place] [address] * Differential, auto (02/10/2024 8:51 PM INSTITUTE DIRECTOR) Pathologist [facility] Neutrophil abs 4.2 1.5 - 6.5 K/cumm Imm gran abs 0.0 0.0 - 0.1 K/cumm [facility] Lymphocyte abs 1.4 0.8 - 3.3 K/cumm [facility] Monocyte abs 0.6 0.2 - 0.8 K/cumm [facility] Eosinophil abs 0.2 0.0 - 0.5 K/cumm [facility] Basophil abs 0.0 0.0 - 0.1 K/cumm [facility] Neutrophil pct 64.3 % [facility] Comment: Interpretive Data Percent cell count reference ranges are not reported, since discordance with absolute values may lead to misinterpretation of CBC data. Current Interpretive Data was last revised on 2017. Imm gran pct 0.3 % [facility] Comment: Interpretive Data Percent cell count reference ranges are not reported, since discordance with absolute values may lead to misinterpretation of CBC data. Current Interpretive Data was last revised on 2017. Lymphocyte pct 22.0 % [facility] Comment: Interpretive Data Percent cell count reference ranges are not reported, since discordance with absolute values may lead to misinterpretation of CBC data. Current Interpretive Data was last revised on 2017. Monocyte pct 9.4 % [facility] Comment: Interpretive Data Percent cell count reference ranges are not reported, since discordance with absolute values may lead to misinterpretation of CBC data. Current Interpretive Data was last revised on 2017. Eosinophil pct 3.7 % [facility] Comment: Interpretive Data Percent cell count reference ranges are not reported, since discordance with absolute values may lead to misinterpretation of CBC data. Current Interpretive Data was last revised on 2017. Basophil pct 0.3 % [facility] Comment: Interpretive Data Percent cell count reference ranges are not reported, since discordance with absolute values may lead to misinterpretation of CBC data. Current Interpretive Data was last revised on 2017. Blood 02/10/2024 8:51 PM INSTITUTE DIRECTOR 02/10/2024 9:12 PM INSTITUTE DIRECTOR us Carin Granados MD LAB BLOOD ORDERABLES Tete l Result [facility] Department [place] [address] * (ABNORMAL) CBC with auto differential (02/10/2024 8:51 PM INSTITUTE DIRECTOR) WBC 6.5 3.8 - 9.9 K/cumm Hgb 7.5(L) 11.9 - 15.5 g/dL [facility] Hct 24.3(L) 35.6 - 45.5 % [facility] Plt 245 150 - 400 K/cumm [facility] MPV 9.5 9.1 - 12.3 fL [facility] RBC 2.92(L) 3.90 - 5.20 M/cumm [facility] MCV 83.2 81.3 - 96.4 fL [facility] MCH 25.7(L) 27.1 - 33.3 pg [facility] MCHC 30.9(L) 32.3 - 35.7 g/dL [facility] RDW CV 14.1 11.1 - 14.9 % [facility] RDW SD 42.3 35.7 - 48.1 fL [facility] NRBC abs 0.00 0.00 - 0.01 K/cumm [facility] Blood 02/10/2024 8:51 PM INSTITUTE DIRECTOR 02/10/2024 9:12 PM INSTITUTE DIRECTOR us Carin Granados MD LAB BLOOD ORDERABLES Tete l Result [facility] Department [place] [place] [address] * Transfusion reaction evaluation with specimen collection (02/10/2024 8:51 PM INSTITUTE DIRECTOR) Recommended Product Transfuse K negative red blood cells. Recommened Pre Medication None [facility] Final Analysis of Transfusion Reaction Delayed Hemolytic Transfusion Reaction [facility] Blood 02/10/2024 8:51 PM INSTITUTE DIRECTOR 02/10/2024 9:12 PM INSTITUTE DIRECTOR us Kassidy Pinzon MD LAB BLOOD BANK TEST ORDERAB LES Final Result Performing Organization Address City/[facility]/ZIP Co de Phone Number [facility] Department [place] [place] [address] * (ABNORMAL) Type and screen (02/10/2024 8:51 PM INSTITUTE DIRECTOR) ABO Rh O Positive Ruiz, indirect Positive(A) [facility] Blood 02/10/2024 8:51 PM INSTITUTE DIRECTOR 02/10/2024 9:12 PM INSTITUTE DIRECTOR Narrative [facility] - 02/10/2024 10:02 PM INSTITUTE DIRECTOR Has the patient had Daratumumab or Isatuximab in the past 6 months?->Unknown us Kassidy Pinzon MD LAB BLOOD BANK TEST ORDERAB LES Final Result Performing Organization Address City/[facility] Co de Phone Number [facility] [place] [address] * (ABNORMAL) Direct antiglobulin test (02/10/2024 8:51 PM INSTITUTE DIRECTOR) Pathologist [facility] Direct Ruiz BS Interpretation Positive( A) Comment:Eluate not performed RYDER positive with anti-C3 only. Blood 02/10/2024 8:51 PM INSTITUTE DIRECTOR 02/10/2024 9:12 PM INSTITUTE DIRECTOR us Kassidy Pinzon MD LAB BLOOD BANK TEST ORDERAB LES Final Result Performing Organization Address [facility] Co de Phone Number [facility] Department [place] [address] * Phosphorus (02/10/2024 8:51 PM INSTITUTE DIRECTOR) Phosphorus, pl 3.1 2.3 - 4.5 mg/dL Blood 02/10/2024 8:51 PM INSTITUTE DIRECTOR 02/10/2024 9:12 PM INSTITUTE DIRECTOR us Carin Granados MD LAB BLOOD ORDERABLES Tete l Result Performing Organization Address [facility] Co de Phone Number [facility] [place], [place] [id number] * Magnesium (02/10/2024 8:51 PM INSTITUTE DIRECTOR) Magnesium 2.3 1.4 - 2.5 mg/dL Blood 02/10/2024 8:51 PM INSTITUTE DIRECTOR 02/10/2024 9:12 PM INSTITUTE DIRECTOR Carin Granados MD LAB BLOOD ORDERABLES Tete l Result Performing Organization Address [facility] de Phone Number [facility] [place] [address] * (ABNORMAL) Hepatic function panel (02/10/2024 8:51 PM INSTITUTE DIRECTOR) Pathologist [facility] Bilirubin, total 0.8 0.1 - 1.2 mg/dL Bilirubin, direct 0.3 0.1 - 0.3 mg/dL [facility] Protein, pl 7.2 6.5 - 8.5 g/dL [facility] Albumin 3.1(L) 3.5 - 5.0 g/dL [facility] Alk phos 317(H) 40 - 130 Units/L [facility] ALT 26 7 - 45 Units/L [facility] AST 60(H) 10 - 45 Units/L [facility] Blood 02/10/2024 8:51 PM INSTITUTE DIRECTOR 02/10/2024 9:12 PM INSTITUTE DIRECTOR Carin Granados MD LAB BLOOD ORDERABLES Tete l Result Performing Organization Address [facility] de Phone Number [facility] [place] [address] * Basic metabolic panel (02/10/2024 8:51 PM INSTITUTE DIRECTOR) Sodium 137 135 - 145 mmol/L Potassium, pl 4.5 3.3 - 4.9 mmol/L [facility] Chloride 100 97 - 110 mmol/L [facility] CO2 31 22 - 32 mmol/L [facility] Anion gap 6 2 - 15 mmol/L [facility] BUN 25 6 - 25 mg/dL [facility] Creatinine 1.05 0.60 - 1.10 mg/dL [facility] Glucose 103 70 - 199 mg/dL [facility] Comment: Interpretive Data Fasting glucose [...] 2022. Calcium 8.9 8.5 - 10.3 mg/dL [facility] Blood 02/10/2024 8:51 PM INSTITUTE DIRECTOR 02/10/2024 9:12 PM INSTITUTE DIRECTOR Carin Granados MD LAB BLOOD ORDERABLES Tete l Result Performing Organization Address [facility] Co de Phone Number [facility] Department [place] [address] * POCT glucose (02/10/2024 8:28 PM INSTITUTE DIRECTOR) Glucose, POC 111 70 - 199 mg/dL Blood 02/10/2024 8:28 PM INSTITUTE DIRECTOR 02/10/2024 8:28 PM INSTITUTE DIRECTOR Kassidy Pinzon MD LAB POCT ORDERABLES - DEVIC E Final Result Performing Organization Address City/[facility]/ZIP Co de Phone Number [facility] Department [place] [address] * POCT glucose (02/10/2024 5:13 PM INSTITUTE DIRECTOR) Glucose, POC 96 70 - 199 mg/dL Blood 02/10/2024 5:13 PM INSTITUTE DIRECTOR 02/10/2024 5:13 PM INSTITUTE DIRECTOR Kassidy Pinzon MD LAB POCT ORDERABLES - DEVIC E Final Result [facility] Department [place] [address] * IR Central Line Placement > 5 Years (02/10/2024 3:32 PM INSTITUTE DIRECTOR) Anatomical Region Laterality Modality Body N/A Radio Fluoroscop y 02/10/2024 3:42 PM INSTITUTE DIRECTOR Impressions 02/10/2024 3:42 PM INSTITUTE DIRECTOR Successful nontunneled catheter placement (5-Anguillan dual-lumen) in the left internal jugular vein. [...] Abby Mao MD Narrative 02/10/2024 3:42 PM INSTITUTE DIRECTOR EXAMINATION: NONTUNNELED CENTRAL VENOUS CATHETER PLACEMENT (STD) HISTORY: History sacral wound with plan for long-term intravenous antibiotics. ATTENDING PRESENCE: Abby Mao MD, PhD, the attending radiologist was present from the beginning to the end of the procedure. SEDATION: Local anesthetic only TECHNIQUE: The risks, benefits and alternatives were discussed and informed consent was obtained. Prior to beginning the procedure, [place] Protocol was used to confirm the patient's [...] was assessed. After dilating the tract, a 5-Anguillan dual lumen aric trimmed to the appropriate [...] was obtained. Prior to beginning the procedure, [place] Protocol was used to confirm the patient's [...] was assessed. After dilating the tract, a 5-Anguillan dual lumen aric trimmed to the appropriate [...] are seen. IMPRESSION: Successful nontunneled catheter placement (5-Anguillan dual-lumen) in the left internal jugular vein. [...] ult * POCT glucose (02/10/2024 12:31 PM INSTITUTE DIRECTOR) Glucose, POC 119 70 - 199 mg/dL Blood 02/10/2024 12:3 1 PM INSTITUTE DIRECTOR 02/10/2024 12:31 PM INSTITUTE DIRECTOR Kassidy Pinzon MD LAB POCT ORDERABLES - DEVIC E Final Result Performing Organization Address [facility] de Phone Number [facility] Department [place] [place] [address] * POCT glucose (02/10/2024 8:15 AM INSTITUTE DIRECTOR) Glucose, POC 96 70 - 199 mg/dL Blood 02/10/2024 8:15 AM INSTITUTE DIRECTOR 02/10/2024 8:15 AM INSTITUTE DIRECTOR Kassidy Pinzon MD LAB POCT ORDERABLES - DEVIC E Final Result Performing Organization Address [facility] de Phone Number [facility] Department [place] [place] [address] * eGFR (02/09/2024 9:52 PM INSTITUTE DIRECTOR) eGFR 71 >=60 mL/min/1. 73 m2 Comment: [...] last reviewed 2021. Blood 02/09/2024 9:52 PM INSTITUTE DIRECTOR 02/09/2024 10:45 PM INSTITUTE DIRECTOR us Carin Granados MD LAB BLOOD ORDERABLES Tete palomino Result [facility] Department [place] [address] * Differential, auto (02/09/2024 9:52 PM INSTITUTE DIRECTOR) Pathologist [facility] Neutrophil abs 3.9 1.5 - 6.5 K/cumm Imm gran abs 0.0 0.0 - 0.1 K/cumm [facility] Lymphocyte abs 1.1 0.8 - 3.3 K/cumm [facility] Monocyte abs 0.7 0.2 - 0.8 K/cumm [facility] Eosinophil abs 0.2 0.0 - 0.5 K/cumm [facility] Basophil abs 0.0 0.0 - 0.1 K/cumm [facility] Neutrophil pct 65.2 % [facility] Comment: Interpretive Data Percent cell count reference ranges are not reported, since discordance with absolute values may lead to misinterpretation of CBC data. Current Interpretive Data was last revised on 2017. Imm gran pct 0.2 % [facility] Comment: Interpretive Data Percent cell count reference ranges are not reported, since discordance with absolute values may lead to misinterpretation of CBC data. Current Interpretive Data was last revised on 2017. Lymphocyte pct 19.0 % [facility] Comment: Interpretive Data Percent cell count reference ranges are not reported, since discordance with absolute values may lead to misinterpretation of CBC data. Current Interpretive Data was last revised on 2017. Monocyte pct 11.8 % [facility] Comment: Interpretive Data Percent cell count reference ranges are not reported, since discordance with absolute values may lead to misinterpretation of CBC data. Current Interpretive Data was last revised on 2017. Eosinophil pct 3.5 % [facility] Comment: Interpretive Data Percent cell count reference ranges are not reported, since discordance with absolute values may lead to misinterpretation of CBC data. Current Interpretive Data was last revised on 2017. Basophil pct 0.3 % [facility] Comment: Interpretive Data Percent cell count reference ranges are not reported, since discordance with absolute values may lead to misinterpretation of CBC data. Current Interpretive Data was last revised on 2017. Blood 02/09/2024 9:52 PM INSTITUTE DIRECTOR 02/09/2024 10:46 PM INSTITUTE DIRECTOR Carin Granados MD LAB BLOOD ORDERABLES Tete palomino Result [facility] Department [place] [address] * (ABNORMAL) CBC with auto differential (02/09/2024 9:52 PM INSTITUTE DIRECTOR) WBC 5.9 3.8 - 9.9 K/cumm Hgb 7.0(L) 11.9 - 15.5 g/dL [facility] Hct 22.8(L) 35.6 - 45.5 % [facility] Plt 230 150 - 400 K/cumm [facility] MPV 9.8 9.1 - 12.3 fL [facility] RBC 2.77(L) 3.90 - 5.20 M/cumm [facility] MCV 82.3 81.3 - 96.4 fL [facility] MCH 25.3(L) 27.1 - 33.3 pg [facility] MCHC 30.7(L) 32.3 - 35.7 g/dL [facility] RDW CV 13.7 11.1 - 14.9 % [facility] RDW SD 41.2 35.7 - 48.1 fL [facility] NRBC abs 0.00 0.00 - 0.01 K/cumm [facility] Blood 02/09/2024 9:52 PM INSTITUTE DIRECTOR 02/09/2024 10:46 PM INSTITUTE DIRECTOR Crain Granados MD LAB BLOOD ORDERABLES Tete l Result Performing Organization Address City/[facility] Co de Phone Number [facility] [place] [address] * Phosphorus (02/09/2024 9:52 PM INSTITUTE DIRECTOR) Pathologist [facility] Phosphorus, pl 3.1 2.3 - 4.5 mg/dL Blood 02/09/2024 9:52 PM INSTITUTE DIRECTOR 02/09/2024 10:45 PM INSTITUTE DIRECTOR Carin Granados MD LAB BLOOD ORDERABLES Tete l Result Performing Organization Address [facility] de Phone Number [facility] [place] [address] * Magnesium (02/09/2024 9:52 PM INSTITUTE DIRECTOR) [facility] Magnesium 2.2 1.4 - 2.5 mg/dL Blood 02/09/2024 9:52 PM INSTITUTE DIRECTOR 02/09/2024 10:45 PM INSTITUTE DIRECTOR Carin Granados MD LAB BLOOD ORDERABLES Tete l Result Performing Organization Address [facility] de Phone Number [facility] [place] [place] [address] * Vancomycin level random (02/09/2024 9:52 PM INSTITUTE DIRECTOR) [facility] Vancomycin random 11.5 mcg/mL Comment: Interpretive Data No reference ranges have been established for random drug levels. Current Interpretive Data was last revised on 2020. Blood 02/09/2024 9:52 PM INSTITUTE DIRECTOR 02/09/2024 10:45 PM INSTITUTE DIRECTOR us Kassidy Pinzon MD LAB BLOOD ORDERABLES Final Result Performing Organization Address [facility] de Phone Number [facility] [place] [address] * (ABNORMAL) Hepatic function panel (02/09/2024 9:52 PM INSTITUTE DIRECTOR) Bilirubin, total 0.9 0.1 - 1.2 mg/dL Bilirubin, direct 0.3 0.1 - 0.3 mg/dL [facility] Protein, pl 6.7 6.5 - 8.5 g/dL [facility] Albumin 2.7(L) 3.5 - 5.0 g/dL [facility] Alk phos 306(H) 40 - 130 Units/L [facility] ALT 27 7 - 45 Units/L [facility] AST 60(H) 10 - 45 Units/L [facility] Blood 02/09/2024 9:52 PM INSTITUTE DIRECTOR 02/09/2024 10:45 PM INSTITUTE DIRECTOR us Carin Granados MD LAB BLOOD ORDERABLES Tete l Result Performing Organization Address [facility] de Phone Number [facility] Department [place] [address] * Basic metabolic panel (02/09/2024 9:52 PM INSTITUTE DIRECTOR) Sodium 138 135 - 145 mmol/L Potassium, pl 4.3 3.3 - 4.9 mmol/L [facility] Chloride 103 97 - 110 mmol/L [facility] CO2 29 22 - 32 mmol/L [facility] Anion gap 6 2 - 15 mmol/L [facility] BUN 21 6 - 25 mg/dL [facility] Creatinine 1.03 0.60 - 1.10 mg/dL [facility] Glucose 124 70 - 199 mg/dL [facility] Comment: Interpretive Data Fasting glucose [...] 2022. Calcium 8.7 8.5 - 10.3 mg/dL [facility] Blood 02/09/2024 9:52 PM INSTITUTE DIRECTOR 02/09/2024 10:45 PM INSTITUTE DIRECTOR Result [facility] Carin Granados MD LAB BLOOD ORDERABLES Tete l Result Performing Organization Address City/[facility]/ZIP Co de Phone Number [facility] Department [place] [address] * POCT glucose (02/09/2024 8:32 PM INSTITUTE DIRECTOR) Glucose, POC 135 70 - 199 mg/dL Blood 02/09/2024 8:32 PM INSTITUTE DIRECTOR 02/09/2024 8:32 PM INSTITUTE DIRECTOR Result [facility] Kassidy Pinzon MD LAB POCT ORDERABLES - DEVIC E Final Result [facility] Department [place] [address] * POCT glucose (02/09/2024 5:55 PM INSTITUTE DIRECTOR) Glucose, POC 142 70 - 199 mg/dL Blood 02/09/2024 5:55 PM INSTITUTE DIRECTOR 02/09/2024 5:55 PM INSTITUTE DIRECTOR Kassidy Pinzon MD LAB POCT ORDERABLES - DEVIC E Final Result Performing Organization Address [facility]/ZIP Co de Phone Number [facility] [place] [address] * (ABNORMAL) Urinalysis reflex to microscopic and culture Urine (02/09/2024 5:09 PM INSTITUTE DIRECTOR) Color, ur Straw Yellow Clarity, ur Cloudy(A) Clear [facility] Specific gravity, ur 1.014 1.003 - 1.030 [facility] pH, urine 8.0 [facility] Comment: Interpretive Data U rine pH is affected by diet, medications, systemic acid-base disturbances, and renal tubular function. pH may affect urinary stone formation. For example, urine pH below 6.0 may help reduce the tendency for calcium phosphate stones and pH greater than 6.0 may reduce the tendency for uric acid stone formation. Source: [facility] Current Interpretive Data was last revised on 2017 Protein, ur ql Trace Negative [facility] Glucose, ur ql Negative Negative [facility] Ketones, ur Negative Negative [facility] Bilirubin, ur Negative Negative [facility] Blood, ur 1+(A) Negative [facility] Urobilinogen, ur 2.0(A) <2.0 mg/dL [facility] Nitrite, ur Negative Negative [facility] Leukocyte esterase, ur 3+(A) Negative [facility] UA reflex comment Reflex to microscopic UA will be performed. [facility] Urine 02/09/2024 5:09 PM INSTITUTE DIRECTOR 02/09/2024 5:48 PM INSTITUTE DIRECTOR Kassidy Pinzon MD LAB MICROBIOLOGY - GENERAL ORDERABLES Final Result Performing Organization Address [facility]/ZIP Co de Phone Number [facility] Department [place] [address] * (ABNORMAL) Urinalysis, microscopic only (02/09/2024 5:09 PM INSTITUTE DIRECTOR) WBC, ur >50(A) 0 - 5 /HPF RBC, ur 6-10(A) 0 - 2 /HPF [facility] Epithelial cells, squamous, ur 1-5 0 - 5 /HPF [facility] Bacteria, ur Trace(A) [facility] Culture Reflex Comment Reflex to urine culture will be performed. [facility] Urine 02/09/2024 5:09 PM INSTITUTE DIRECTOR 02/09/2024 5:48 PM INSTITUTE DIRECTOR us Kassidy Pinzon MD LAB URINE ORDERABLES Final Result Performing Organization Address [facility] Co de Phone Number [facility] [place] [address] * Urine culture Urine (02/09/2024 5:09 PM INSTITUTE DIRECTOR) Report Final Report: No growth Urine 02/09/2024 5:09 PM INSTITUTE DIRECTOR 02/09/2024 8:14 PM INSTITUTE DIRECTOR Narrative [facility] - 02/10/2024 9:34 PM INSTITUTE DIRECTOR Urine culture reflexed based upon urinalysis results. Testing performed by [facility] ([phone]) us Kassidy Pinzon MD LAB MICROBIOLOGY - GENERAL ORDERABLES Final Result Performing Organization Address [facility] de Phone Number [facility] Department [place] [address] * XR Abdomen Ap 1 Vw (02/09/2024 4:09 PM INSTITUTE DIRECTOR) Anatomical Region Laterality Modality Body, Abdomen N/A Computed Radiogr aphy 02/09/2024 4:36 PM INSTITUTE DIRECTOR Impressions 02/09/2024 4:54 PM INSTITUTE DIRECTOR A single view of the abdomen is [...] Raheem Marion M.D. Narrative 02/09/2024 4:54 PM INSTITUTE DIRECTOR EXAMINATION: Abdomen, one view. HISTORY: Abdominal pain. [...] ult * POCT glucose (02/09/2024 12:51 PM INSTITUTE DIRECTOR) Glucose, POC 121 70 - 199 mg/dL Blood 02/09/2024 12:5 1 PM INSTITUTE DIRECTOR 02/09/2024 12:51 PM INSTITUTE DIRECTOR Kassidy Pinzon MD LAB POCT ORDERABLES - DEVIC E Final Result Performing Organization Address [facility] de Phone Number [facility] Department [place] [address] * POCT glucose (02/09/2024 7:40 AM INSTITUTE DIRECTOR) Glucose, POC 96 70 - 199 mg/dL Blood 02/09/2024 7:40 AM INSTITUTE DIRECTOR 02/09/2024 7:40 AM INSTITUTE DIRECTOR Kassidy Pinzon MD LAB POCT ORDERABLES - DEVIC E Final Result Performing Organization Address [facility]/ZIP Co de Phone Number [facility] Department [place] [address] * eGFR (02/09/2024 12:07 AM INSTITUTE DIRECTOR) eGFR 77 >=60 mL/min/1. 73 m2 Comment: [...] reviewed 2021. Blood 02/09/2024 12:0 7 AM INSTITUTE DIRECTOR 02/09/2024 12:57 AM INSTITUTE DIRECTOR us Carin Granados MD LAB BLOOD ORDERABLES Tete l Result [facility] Department [place] [address] * Creatinine (02/09/2024 12:07 AM INSTITUTE DIRECTOR) Creatinine 0.97 0.60 - 1.10 mg/dL Blood 02/09/2024 12:0 7 AM INSTITUTE DIRECTOR 02/09/2024 12:57 AM INSTITUTE DIRECTOR Narrative [facility] - 02/09/2024 1:23 AM INSTITUTE DIRECTOR While on enoxaparin Carin Granados MD LAB BLOOD ORDERABLES Tete l Result Performing Organization Address City/State/[facility] Co de Phone Number [facility] Department [place] [address] * eGFR (02/08/2024 9:50 PM INSTITUTE DIRECTOR) eGFR 76 >=60 mL/min/1. 73 m2 Comment: [...] last reviewed 2021. Blood 02/08/2024 9:50 PM INSTITUTE DIRECTOR 02/08/2024 11:07 PM INSTITUTE DIRECTOR us Carin Granados MD LAB BLOOD ORDERABLES Tete l Result Performing Organization Address [facility] Co de Phone Number [facility] Department [place] [address] * Differential, auto (02/08/2024 9:50 PM INSTITUTE DIRECTOR) Neutrophil abs 4.0 1.5 - 6.5 K/cumm Imm gran abs 0.0 0.0 - 0.1 K/cumm [facility] Lymphocyte abs 1.1 0.8 - 3.3 K/cumm [facility] Monocyte abs 0.5 0.2 - 0.8 K/cumm [facility] Eosinophil abs 0.3 0.0 - 0.5 K/cumm [facility] Basophil abs 0.0 0.0 - 0.1 K/cumm [facility] Neutrophil pct 68.3 % [facility] Comment: Interpretive Data Percent cell count reference ranges are not reported, since discordance with absolute values may lead to misinterpretation of CBC data. Current Interpretive Data was last revised on 2017. Imm gran pct 0.3 % [facility] Comment: Interpretive Data Percent cell count reference ranges are not reported, since discordance with absolute values may lead to misinterpretation of CBC data. Current Interpretive Data was last revised on 2017. Lymphocyte pct 17.9 % [facility] Comment: Interpretive Data Percent cell count reference ranges are not reported, since discordance with absolute values may lead to misinterpretation of CBC data. Current Interpretive Data was last revised on 2017. Monocyte pct 8.8 % [facility] Comment: Interpretive Data Percent cell count reference ranges are not reported, since discordance with absolute values may lead to misinterpretation of CBC data. Current Interpretive Data was last revised on 2017. Eosinophil pct 4.4 % [facility] Comment: Interpretive Data Percent cell count reference ranges are not reported, since discordance with absolute values may lead to misinterpretation of CBC data. Current Interpretive Data was last revised on 2017. Basophil pct 0.3 % [facility] Comment: Interpretive Data Percent cell count reference ranges are not reported, since discordance with absolute values may lead to misinterpretation of CBC data. Current Interpretive Data was last revised on 2017. Blood 02/08/2024 9:50 PM INSTITUTE DIRECTOR 02/08/2024 10:57 PM INSTITUTE DIRECTOR us Carin Granados MD LAB BLOOD ORDERABLES Tete l Result [facility] Department [place] [address] * (ABNORMAL) CBC with auto differential (02/08/2024 9:50 PM INSTITUTE DIRECTOR) WBC 5.9 3.8 - 9.9 K/cumm Hgb 8.6(L) 11.9 - 15.5 g/dL [facility] Hct 27.7(L) 35.6 - 45.5 % [facility] Plt 239 150 - 400 K/cumm [facility] MPV 9.5 9.1 - 12.3 fL [facility] RBC 3.37(L) 3.90 - 5.20 M/cumm [facility] MCV 82.2 81.3 - 96.4 fL [facility] MCH 25.5(L) 27.1 - 33.3 pg [facility] MCHC 31.0(L) 32.3 - 35.7 g/dL [facility] RDW CV 13.6 11.1 - 14.9 % [facility] RDW SD 40.8 35.7 - 48.1 fL [facility] NRBC abs 0.00 0.00 - 0.01 K/cumm [facility] Blood 02/08/2024 9:50 PM INSTITUTE DIRECTOR 02/08/2024 10:57 PM INSTITUTE DIRECTOR us Carin Granados MD LAB BLOOD ORDERABLES Tete palomino Result [facility] Department [place] [address] * (ABNORMAL) Protime-INR (02/08/2024 9:50 PM INSTITUTE DIRECTOR) PT 16.5(H) 9.7 - 13.0 sec INR 1.51(H) 0.90 - 1.20 [facility] Comment: Interpretive data Oral anticoagulant therapeutic ranges: Venous thromboembolism prophylaxis or treatment: 2.0-3.0 CARDIOLOGY Standard range: 2.0-3.0 High-intensity range: 2.5-3.5 Refer to indication-specific guidelines for appropriate target ranges for prosthetic heart valve replacement. Current interpretive data was last revised on 2019. Blood 02/08/2024 9:50 PM INSTITUTE DIRECTOR 02/08/2024 10:56 PM INSTITUTE DIRECTOR us Kassidy Pinzon MD LAB BLOOD ORDERABLES Final Result Performing Organization Address [facility] Co de Phone Number [facility] [place] [address] * Phosphorus (02/08/2024 9:50 PM INSTITUTE DIRECTOR) Pathologist [facility] Phosphorus, pl 3.6 2.3 - 4.5 mg/dL Blood 02/08/2024 9:5 0 PM INSTITUTE DIRECTOR 02/08/2024 10:52 PM INSTITUTE DIRECTOR Carin Granados MD LAB BLOOD ORDERABLES Tete l Result Performing Organization Address [facility] de Phone Number [facility] Department [place] [address] * Magnesium (02/08/2024 9:50 PM INSTITUTE DIRECTOR) [facility] Magnesium 2.0 1.4 - 2.5 mg/dL Blood 02/08/2024 9:50 PM INSTITUTE DIRECTOR 02/08/2024 10:52 PM INSTITUTE DIRECTOR Carin Granados MD LAB BLOOD ORDERABLES Tete l Result Performing Organization Address [facility] de Phone Number [facility] Department [place] [address] * Vancomycin level random (02/08/2024 9:50 PM INSTITUTE DIRECTOR) Pathologist [facility] Vancomycin random 20.0 mcg/mL Comment: Interpretive Data No reference ranges have been established for random drug levels. Current Interpretive Data was last revised on 2020. Blood 02/08/2024 9:50 PM INSTITUTE DIRECTOR 02/08/2024 10:52 PM INSTITUTE DIRECTOR Kassidy Pinzon MD LAB BLOOD ORDERABLES Final Result Performing Organization Address [facility] Co de Phone Number [facility] Department [place] [address] * (ABNORMAL) Hepatic function panel (02/08/2024 9:50 PM INSTITUTE DIRECTOR) [facility] Bilirubin, total 1.2 0.1 - 1.2 mg/dL Bilirubin, direct 0.3 0.1 - 0.3 mg/dL [facility] Protein, pl 7.2 6.5 - 8.5 g/dL [facility] Albumin 3.0(L) 3.5 - 5.0 g/dL [facility] Alk phos 305(H) 40 - 130 Units/L [facility] ALT 27 7 - 45 Units/L [facility] AST 63(H) 10 - 45 Units/L [facility] Blood 02/08/2024 9:50 PM INSTITUTE DIRECTOR 02/08/2024 10:52 PM INSTITUTE DIRECTOR Carin Granados MD LAB BLOOD ORDERABLES Tete l Result [facility] Department [place] [address] * Basic metabolic panel (02/08/2024 9:50 PM INSTITUTE DIRECTOR) [facility] Sodium 139 135 - 145 mmol/L Potassium, pl 4.6 3.3 - 4.9 mmol/L [facility] Chloride 102 97 - 110 mmol/L [facility] CO2 29 22 - 32 mmol/L [facility] Anion gap 8 2 - 15 mmol/L [facility] BUN 23 6 - 25 mg/dL [facility] Creatinine 0.98 0.60 - 1.10 mg/dL [facility] Glucose 89 70 - 199 mg/dL [facility] Comment: Interpretive Data Fasting glucose [...] 2022. Calcium 9.1 8.5 - 10.3 mg/dL [facility] Blood 02/08/2024 9:50 PM INSTITUTE DIRECTOR 02/08/2024 10:52 PM INSTITUTE DIRECTOR us Carin Granados MD LAB BLOOD ORDERABLES Tete l Result [facility] [place] [address] * POCT glucose (02/08/2024 8:31 PM INSTITUTE DIRECTOR) Glucose, POC 98 70 - 199 mg/dL Blood 02/08/2024 8:31 PM INSTITUTE DIRECTOR 02/08/2024 8:31 PM INSTITUTE DIRECTOR us Kassidy Pinzon MD LAB POCT ORDERABLES - DEVIC E Final Result Performing Organization Address City/[facility] Co de Phone Number [facility] Department [place] [place] [address] * POCT glucose (02/08/2024 5:56 PM INSTITUTE DIRECTOR) Glucose, POC 123 70 - 199 mg/dL Blood 02/08/2024 5:56 PM INSTITUTE DIRECTOR 02/08/2024 5:56 PM INSTITUTE DIRECTOR Kassidy Pinzon MD LAB POCT ORDERABLES - DEVIC E Final Result Performing Organization Address City/[facility] Co de Phone Number [facility] [place] [address] * (ABNORMAL) Vancomycin level trough Prior to 3rd dose of 750mg Q12 (02/08/2024 1:55 PM INSTITUTE DIRECTOR) [facility] Vancomycin trough 24.7(H) 10.0 - 20.0 mcg/mL Comment:Reviewed Blood 02/08/2024 1:55 PM INSTITUTE DIRECTOR 02/08/2024 2:35 PM INSTITUTE DIRECTOR Narrative [facility] - 02/08/2024 3:10 PM INSTITUTE DIRECTOR Prior to 3rd dose of 750mg Q12 Kassidy Pinzon MD LAB BLOOD ORDERABLES Final Result Performing Organization Address City/[facility] Co de Phone Number [facility] [place] [address] * POCT glucose (02/08/2024 11:40 AM INSTITUTE DIRECTOR) [facility] Glucose, POC 98 70 - 199 mg/dL Blood 02/08/2024 11:4 0 AM INSTITUTE DIRECTOR 02/08/2024 11:40 AM INSTITUTE DIRECTOR Kassidy Pinzon MD LAB POCT ORDERABLES - DEVIC E Final Result Performing Organization Address [facility] de Phone Number [facility] [place] [address] * POCT glucose (02/08/2024 8:20 AM INSTITUTE DIRECTOR) [facility] Glucose, POC 91 70 - 199 mg/dL Blood 02/08/2024 8:20 AM INSTITUTE DIRECTOR 02/08/2024 8:20 AM INSTITUTE DIRECTOR Kassidy Pinzon MD LAB POCT ORDERABLES - DEVIC E Final Result Performing Organization Address [facility] de Phone Number [facility] [place] [address] * eGFR (02/07/2024 9:30 PM INSTITUTE DIRECTOR) [facility] eGFR 66 >=60 mL/min/1. 73 m2 [...] last reviewed 2021. Blood 02/07/2024 9:30 PM INSTITUTE DIRECTOR 02/07/2024 10:34 PM INSTITUTE DIRECTOR Carin Granados MD LAB BLOOD ORDERABLES Tete palomino Result [facility] Department [place] [address] * Differential, auto (02/07/2024 9:30 PM INSTITUTE DIRECTOR) Pathologist [facility] Neutrophil abs 4.1 1.5 - 6.5 K/cumm Imm gran abs 0.0 0.0 - 0.1 K/cumm [facility] Lymphocyte abs 0.8 0.8 - 3.3 K/cumm [facility] Monocyte abs 0.6 0.2 - 0.8 K/cumm [facility] Eosinophil abs 0.3 0.0 - 0.5 K/cumm [facility] Basophil abs 0.0 0.0 - 0.1 K/cumm [facility] Neutrophil pct 71.0 % [facility] Comment: Interpretive Data Percent cell count reference ranges are not reported, since discordance with absolute values may lead to misinterpretation of CBC data. Current Interpretive Data was last revised on 2017. Imm gran pct 0.5 % [facility] Comment: Interpretive Data Percent cell count reference ranges are not reported, since discordance with absolute values may lead to misinterpretation of CBC data. Current Interpretive Data was last revised on 2017. Lymphocyte pct 14.0 % [facility] Comment: Interpretive Data Percent cell count reference ranges are not reported, since discordance with absolute values may lead to misinterpretation of CBC data. Current Interpretive Data was last revised on 2017. Monocyte pct 9.5 % [facility] Comment: Interpretive Data Percent cell count reference ranges are not reported, since discordance with absolute values may lead to misinterpretation of CBC data. Current Interpretive Data was last revised on 2017. Eosinophil pct 4.8 % [facility] Comment: Interpretive Data Percent cell count reference ranges are not reported, since discordance with absolute values may lead to misinterpretation of CBC data. Current Interpretive Data was last revised on 2017. Basophil pct 0.2 % [facility] Comment: Interpretive Data Percent cell count reference ranges are not reported, since discordance with absolute values may lead to misinterpretation of CBC data. Current Interpretive Data was last revised on 2017. Blood 02/07/2024 9:30 PM INSTITUTE DIRECTOR 02/07/2024 10:29 PM INSTITUTE DIRECTOR us Carin Granados MD LAB BLOOD ORDERABLES Tete palomino Result [facility] Department [place] [address] * (ABNORMAL) CBC with auto differential (02/07/2024 9:30 PM INSTITUTE DIRECTOR) WBC 5.8 3.8 - 9.9 K/cumm Hgb 7.8(L) 11.9 - 15.5 g/dL [facility] Hct 24.7(L) 35.6 - 45.5 % [facility] Plt 226 150 - 400 K/cumm [facility] MPV 9.8 9.1 - 12.3 fL [facility] RBC 2.95(L) 3.90 - 5.20 M/cumm [facility] MCV 83.7 81.3 - 96.4 fL [facility] MCH 26.4(L) 27.1 - 33.3 pg [facility] MCHC 31.6(L) 32.3 - 35.7 g/dL [facility] RDW CV 13.3 11.1 - 14.9 % [facility] RDW SD 40.3 35.7 - 48.1 fL [facility] NRBC abs 0.00 0.00 - 0.01 K/cumm [facility] Blood 02/07/2024 9:30 PM INSTITUTE DIRECTOR 02/07/2024 10:29 PM INSTITUTE DIRECTOR Carin Granados MD LAB BLOOD ORDERABLES Tete l Result Performing Organization Address City/[facility] Co de Phone Number [facility] Department [place] [address] * Phosphorus (02/07/2024 9:30 PM INSTITUTE DIRECTOR) Phosphorus, pl 4.4 2.3 - 4.5 mg/dL Blood 02/07/2024 9:30 PM INSTITUTE DIRECTOR 02/07/2024 10:34 PM INSTITUTE DIRECTOR Carin Granados MD LAB BLOOD ORDERABLES Tete l Result Performing Organization Address [facility] Co de Phone Number [facility] Department [place] [address] * Magnesium (02/07/2024 9:30 PM INSTITUTE DIRECTOR) Magnesium 2.1 1.4 - 2.5 mg/dL Blood 02/07/2024 9:30 PM INSTITUTE DIRECTOR 02/07/2024 10:34 PM INSTITUTE DIRECTOR Carin Granados MD LAB BLOOD ORDERABLES Tete l Result Performing Organization Address [facility] Co de Phone Number [facility] [place] [address] * (ABNORMAL) Hepatic function panel (02/07/2024 9:30 PM INSTITUTE DIRECTOR) [facility] Bilirubin, total 1.1 0.1 - 1.2 mg/dL Bilirubin, direct 0.3 0.1 - 0.3 mg/dL [facility] Protein, pl 6.7 6.5 - 8.5 g/dL [facility] Albumin 2.7(L) 3.5 - 5.0 g/dL [facility] Alk phos 326(H) 40 - 130 Units/L [facility] ALT 31 7 - 45 Units/L [facility] AST 80(H) 10 - 45 Units/L [facility] Blood 02/07/2024 9:30 PM INSTITUTE DIRECTOR 02/07/2024 10:34 PM INSTITUTE DIRECTOR Carin Granados MD LAB BLOOD ORDERABLES Tete l Result [facility] Department [place] [address] * Basic metabolic panel (02/07/2024 9:30 PM INSTITUTE DIRECTOR) [facility] Sodium 139 135 - 145 mmol/L Potassium, pl 4.5 3.3 - 4.9 mmol/L [facility] Chloride 103 97 - 110 mmol/L [facility] CO2 28 22 - 32 mmol/L [facility] Anion gap 8 2 - 15 mmol/L [facility] BUN 24 6 - 25 mg/dL [facility] Creatinine 1.10 0.60 - 1.10 mg/dL [facility] Glucose 109 70 - 199 mg/dL [facility] Comment: Interpretive Data Fasting glucose [...] 2022. Calcium 8.7 8.5 - 10.3 mg/dL [facility] Blood 02/07/2024 9:30 PM INSTITUTE DIRECTOR 02/07/2024 10:34 PM INSTITUTE DIRECTOR us Carin Granados MD LAB BLOOD ORDERABLES Tete l Result [facility] [place] [place] [address] * POCT glucose (02/07/2024 8:20 PM INSTITUTE DIRECTOR) Glucose, POC 127 70 - 199 mg/dL Blood 02/07/2024 8:20 PM INSTITUTE DIRECTOR 02/07/2024 8:20 PM INSTITUTE DIRECTOR us Kassidy Pinzon MD LAB POCT ORDERABLES - DEVIC E Final Result Performing Organization Address [facility] Co de Phone Number [facility] [place] [address] * POCT glucose (02/07/2024 4:41 PM INSTITUTE DIRECTOR) Glucose, POC 113 70 - 199 mg/dL Blood 02/07/2024 4:41 PM INSTITUTE DIRECTOR 02/07/2024 4:41 PM INSTITUTE DIRECTOR Kassidy Pinzon MD LAB POCT ORDERABLES - DEVIC E Final Result Performing Organization Address City/[facility] Co de Phone Number [facility] [place] [address] * POCT glucose (02/07/2024 12:22 PM INSTITUTE DIRECTOR) Glucose, POC 77 70 - 199 mg/dL Blood 02/07/2024 12:2 2 PM INSTITUTE DIRECTOR 02/07/2024 12:22 PM INSTITUTE DIRECTOR Kassidy Pinzon MD LAB POCT ORDERABLES - DEVIC E Final Result Performing Organization Address [facility] Co de Phone Number [facility] Department [place] [address] * Tissue aerobic and anaerobic culture and gram stain Bone Sacral (02/07/2024 11:30 AM INSTITUTE DIRECTOR) Direct Specimen Exam Stain: No polymorphonuclear leukocytes seen. No organisms seen. Report Final Report: No growth [facility] Bone (Sacral) 02/07/2024 11: 30 AM INSTITUTE DIRECTOR 02/07/2024 3:04 PM INSTITUTE DIRECTOR Narrative [facility] - 02/10/2024 12:53 PM INSTITUTE DIRECTOR This is NOT Aspirate but instead a Coccyx Bone Biopsy Testing performed by [facility] Microbiology Laboratory ([phone]) Specimens submitted from normally sterile body sites [...] GENERAL ORDERABLES Final Result Performing Organization Address [facility] Co de Phone Number [facility] Department [place] [address] * Mycology (fungal) culture and stain Aspirate Sacral (02/07/2024 11:30 AM INSTITUTE DIRECTOR) Direct Specimen Exam Stain: No Fungal elements seen. Report Final Report: No growth of fungus [facility] Aspirate (Sacral) 02/07/2024 11:30 AM INSTITUTE DIRECTOR 02/07/2024 3:09 PM INSTITUTE DIRECTOR Narrative [facility] - 03/06/2024 8:33 AM INSTITUTE DIRECTOR Coccyx Aspirate Testing performed by [facility] ([phone]). us Carin Granados MD LAB MICROBIOLOGY - GENERA L ORDERABLES Final Result Performing Organization Address City/[facility] Co de Phone Number [facility] Department [place] [address] * Mycology (fungal) culture Bone Sacral (02/07/2024 11:30 AM INSTITUTE DIRECTOR) Report Final Report: No growth of fungus Bone (Sacral) 02/07/2024 11: 30 AM INSTITUTE DIRECTOR 02/07/2024 3:45 PM INSTITUTE DIRECTOR Narrative [facility] - 03/06/2024 8:33 AM INSTITUTE DIRECTOR Coccyx Bone Biopsy Testing performed by [facility] ([phone]). us Kassidy Pinzon MD LAB MICROBIOLOGY - GENERAL ORDERABLES Final Result Performing Organization Address [facility] Co de Phone Number [facility] Department [place] [address] * Mycobacteriology (AFB) culture and acid-fast stain Bone Sacral (02/07/2024 11:30 AM INSTITUTE DIRECTOR) Direct Specimen Exam Stain: No Acid-fast bacilli seen Report Final Report: No growth of acid-fast bacilli [facility] Bone (Sacral) 02/07/2024 11: 30 AM INSTITUTE DIRECTOR 02/07/2024 3:07 PM INSTITUTE DIRECTOR Narrative [facility] - 04/09/2024 9:27 AM INSTITUTE DIRECTOR Coccyx Bone Biopsy Testing performed by [facility] ([phone]). us Carin Granados MD LAB MICROBIOLOGY - GENERA L ORDERABLES Final Result [facility] Department [place] [address] * Mycobacteriology (AFB) culture and acid-fast stain Aspirate Sacral (02/07/2024 11:30 AM INSTITUTE DIRECTOR) Direct Specimen Exam Stain: No Acid-fast bacilli seen Report Final Report: No growth of acid-fast bacilli [facility] Aspirate (Sacral) 02/07/2024 11:30 AM INSTITUTE DIRECTOR 02/07/2024 3:09 PM INSTITUTE DIRECTOR Narrative [facility] - 04/09/2024 9:27 AM INSTITUTE DIRECTOR Coccyx Aspirate Testing performed by [facility] ([phone]). us Carin Granados MD LAB MICROBIOLOGY - GENERA L ORDERABLES Final Result [facility] Department [place] [address] * Aerobic and anaerobic culture and gram stain Aspirate Sacral (02/07/2024 11:30 AM INSTITUTE DIRECTOR) Direct Specimen Exam Stain: Rare polymorphonuclear leukocytes seen. No organisms seen. Report Final Report: No growth [facility] Aspirate (Sacral) 02/07/2024 11:30 AM INSTITUTE DIRECTOR 02/07/2024 3:09 PM INSTITUTE DIRECTOR Narrative [facility] - 02/10/2024 12:52 PM INSTITUTE DIRECTOR Coccyx Aspirate Testing performed by [facility] ([phone]) Specimens submitted from normally sterile body sites [...] L ORDERABLES Final Result [facility] Department [place] [address] * IR Biopsy Deep Bone (02/07/2024 11:29 AM INSTITUTE DIRECTOR) Anatomical Region Laterality Modality Body N/A Computed Tomogra phy 02/07/2024 1:23 PM INSTITUTE DIRECTOR Impressions 02/07/2024 5:11 PM INSTITUTE DIRECTOR Coccygeal bone biopsy under CT guidance. The core specimens were sent to surgical pathology and microbiology. Aspirate was sent to microbiology. Dictated by: Craig Sheppard M.D. The radiology attending physician has personally reviewed this study, and had reviewed and/or edited this written report and agrees with it. 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 Jorge Carolina MD, PHD, the attending radiologist, was present from the beginning to the end of the procedure. Dr. Ness (global consumer sector vice president) was present and participated in the procedure. [...] was obtained. Prior to beginning the procedure, [place] Protocol was performed to confirm the patient's [...] the end of the procedure. Dr. Ness (global consumer sector vice president) was present and participated in the procedure. [...] was obtained. Prior to beginning the procedure, [place] Protocol was performed to confirm the patient's [...] subcutaneous and deep anesthesia. 10/12 gauge Arrow OpenROVontrol coaxial biopsy device was inserted into the [...] esult * Surgical pathology (02/07/2024 11:15 AM INSTITUTE DIRECTOR) Bone biopsy, metabolic disease 02/07/2024 11:15 AM INSTITUTE DIRECTOR 02/07/2024 2:18 PM INSTITUTE DIRECTOR Narrative 02/09/2024 10:35 AM INSTITUTE DIRECTOR EPIC results best viewed via link to PDF [facility] [place] [address] Note to Patients: This report may contain [...] Gender: F : 1985 (Age: 38) Address: [address] [place] [id number] Hospital #: [id number] Taken:02/07/2024 Received:02/07/2024 Reported: 02/09/2024 Patient Type: [facility] Inpatient Service: Medical Location: [facility] Physician(s): Jorge Carolina M.D. Barbara Oliva MD [...] Surgical Pathology and Flow Cytometry Departments at [facility] as part of an ongoing data quality consultant program and in compliance with federally mandated [...] Surgical Pathology and Flow Cytometry Departments of [facility]. It has not been cleared or approved by the U. S. Food and Drug Administration. IMAGES AND SCANNED DOCUMENTS, IF INCLUDED, ONLY VIEWABLE IN PDF VERSION OF REPORT us Jorge Carolina MD PhD LAB PATHOLOGY ORDER [place] Final Result * POCT glucose (02/07/2024 8:36 AM INSTITUTE DIRECTOR) Glucose, POC 79 70 - 199 mg/dL Blood 02/07/2024 8:36 AM INSTITUTE DIRECTOR 02/07/2024 8:36 AM INSTITUTE DIRECTOR Kassidy Pinzon MD LAB POCT ORDERABLES - DEVIC E Final Result Performing Organization Address [facility] Co de Phone Number [facility] Department [place] [address] * POCT glucose (02/07/2024 7:46 AM INSTITUTE DIRECTOR) Glucose, POC 83 70 - 199 mg/dL Blood 02/07/2024 7:46 AM INSTITUTE DIRECTOR 02/07/2024 7:46 AM INSTITUTE DIRECTOR Kassidy Pinzon MD LAB POCT ORDERABLES - DEVIC E Final Result Performing Organization Address [facility] Phone Number [facility] Department [place] [address] * (ABNORMAL) Vancomycin level trough Draw trough 30 minutes prior to 4th dose. (02/07/2024 2:37 AM INSTITUTE DIRECTOR) Vancomycin trough 24.3(H) 10.0 - 20.0 mcg/mL Blood 02/07/2024 2:37 AM INSTITUTE DIRECTOR 02/07/2024 3:13 AM INSTITUTE DIRECTOR Narrative [facility] - 02/07/2024 3:44 AM INSTITUTE DIRECTOR Draw trough 30 minutes prior to 4th dose. us Carin Granados MD LAB BLOOD ORDERABLES Tete l Result Performing Organization Address City/[facility] Co de Phone Number [facility] Department [place] [address] * eGFR (02/06/2024 9:36 PM INSTITUTE DIRECTOR) Pathologist [facility] eGFR 71 >=60 mL/min/1. 73 m2 Comment: [...] last reviewed 2021. Blood 02/06/2024 9:36 PM INSTITUTE DIRECTOR 02/06/2024 11:02 PM INSTITUTE DIRECTOR Carin Granados MD LAB BLOOD ORDERABLES Tete l Result Performing Organization Address [facility] Co de Phone Number [facility] Department [place] [address] * Differential, auto (02/06/2024 9:36 PM INSTITUTE DIRECTOR) Pathologist [facility] Neutrophil abs 3.8 1.5 - 6.5 K/cumm Imm gran abs 0.0 0.0 - 0.1 K/cumm [facility] Lymphocyte abs 0.9 0.8 - 3.3 K/cumm [facility] Monocyte abs 0.6 0.2 - 0.8 K/cumm [facility] Eosinophil abs 0.3 0.0 - 0.5 K/cumm [facility] Basophil abs 0.0 0.0 - 0.1 K/cumm [facility] Neutrophil pct 68.0 % [facility] Comment: Interpretive Data Percent cell count reference ranges are not reported, since discordance with absolute values may lead to misinterpretation of CBC data. Current Interpretive Data was last revised on 2017. Imm gran pct 0.2 % [facility] Comment: Interpretive Data Percent cell count reference ranges are not reported, since discordance with absolute values may lead to misinterpretation of CBC data. Current Interpretive Data was last revised on 2017. Lymphocyte pct 16.0 % [facility] Comment: Interpretive Data Percent cell count reference ranges are not reported, since discordance with absolute values may lead to misinterpretation of CBC data. Current Interpretive Data was last revised on 2017. Monocyte pct 10.8 % [facility] Comment: Interpretive Data Percent cell count reference ranges are not reported, since discordance with absolute values may lead to misinterpretation of CBC data. Current Interpretive Data was last revised on 2017. Eosinophil pct 4.8 % [facility] Comment: Interpretive Data Percent cell count reference ranges are not reported, since discordance with absolute values may lead to misinterpretation of CBC data. Current Interpretive Data was last revised on 2017. Basophil pct 0.2 % [facility] Comment: Interpretive Data Percent cell count reference ranges are not reported, since discordance with absolute values may lead to misinterpretation of CBC data. Current Interpretive Data was last revised on 2017. Blood 02/06/2024 9:36 PM INSTITUTE DIRECTOR 02/06/2024 11:03 PM INSTITUTE DIRECTOR us Carin Granados MD LAB BLOOD ORDERABLES Tete palomino Result [facility] Department [place] [address] * (ABNORMAL) CBC with auto differential (02/06/2024 9:36 PM INSTITUTE DIRECTOR) [facility] WBC 5.6 3.8 - 9.9 K/cumm Hgb 8.1(L) 11.9 - 15.5 g/dL [facility] Hct 25.1(L) 35.6 - 45.5 % [facility] Plt 226 150 - 400 K/cumm [facility] MPV 9.6 9.1 - 12.3 fL [facility] RBC 3.03(L) 3.90 - 5.20 M/cumm [facility] MCV 82.8 81.3 - 96.4 fL [facility] MCH 26.7(L) 27.1 - 33.3 pg [facility] MCHC 32.3 32.3 - 35.7 g/dL [facility] RDW CV 13.5 11.1 - 14.9 % [facility] RDW SD 41.0 35.7 - 48.1 fL [facility] NRBC abs 0.00 0.00 - 0.01 K/cumm [facility] Blood 02/06/2024 9:36 PM INSTITUTE DIRECTOR 02/06/2024 11:03 PM INSTITUTE DIRECTOR us Carin Granados MD LAB BLOOD ORDERABLES Tete l Result Performing Organization Address City/[facility] Co de Phone Number [facility] Department [place] [place] [address] * Phosphorus (02/06/2024 9:36 PM INSTITUTE DIRECTOR) [facility] Phosphorus, pl 4.5 2.3 - 4.5 mg/dL Blood 02/06/2024 9:36 PM INSTITUTE DIRECTOR 02/06/2024 11:02 PM INSTITUTE DIRECTOR Carin Granados MD LAB BLOOD ORDERABLES Tete l Result [facility] Department [place] [address] * Magnesium (02/06/2024 9:36 PM INSTITUTE DIRECTOR) [facility] Magnesium 2.1 1.4 - 2.5 mg/dL Blood 02/06/2024 9:36 PM INSTITUTE DIRECTOR 02/06/2024 11:02 PM INSTITUTE DIRECTOR Carin Granados MD LAB BLOOD ORDERABLES Tete l Result Performing Organization Address [facility] de Phone Number [facility] [place] [address] * (ABNORMAL) Hepatic function panel (02/06/2024 9:36 PM INSTITUTE DIRECTOR) [facility] Bilirubin, total 1.0 0.1 - 1.2 mg/dL Bilirubin, direct 0.3 0.1 - 0.3 mg/dL [facility] Protein, pl 6.9 6.5 - 8.5 g/dL [facility] Albumin 2.8(L) 3.5 - 5.0 g/dL [facility] Alk phos 316(H) 40 - 130 Units/L [facility] ALT 30 7 - 45 Units/L [facility] AST 80(H) 10 - 45 Units/L [facility] Blood 02/06/2024 9:36 PM INSTITUTE DIRECTOR 02/06/2024 11:02 PM INSTITUTE DIRECTOR Result [facility] Carin Granados MD LAB BLOOD ORDERABLES Tete l Result Performing Organization Address [facility] de Phone Number [facility] [place] [address] * Basic metabolic panel (02/06/2024 9:36 PM INSTITUTE DIRECTOR) [facility] Sodium 135 135 - 145 mmol/L Potassium, pl 4.9 3.3 - 4.9 mmol/L [facility] Chloride 100 97 - 110 mmol/L [facility] CO2 31 22 - 32 mmol/L [facility] Anion gap 4 2 - 15 mmol/L [facility] BUN 24 6 - 25 mg/dL [facility] Creatinine 1.04 0.60 - 1.10 mg/dL [facility] Glucose 83 70 - 199 mg/dL [facility] Comment: Interpretive Data Fasting glucose [...] 2022. Calcium 9.0 8.5 - 10.3 mg/dL [facility] Blood 02/06/2024 9:36 PM INSTITUTE DIRECTOR 02/06/2024 11:02 PM INSTITUTE DIRECTOR Carin Granados MD LAB BLOOD ORDERABLES Tete l Result Performing Organization Address City/[facility]/ZIP Co de Phone Number [facility] Department [place] [address] * POCT glucose (02/06/2024 9:32 PM INSTITUTE DIRECTOR) Glucose, POC 111 70 - 199 mg/dL Blood 02/06/2024 9:32 PM INSTITUTE DIRECTOR 02/06/2024 9:32 PM INSTITUTE DIRECTOR Carin Granados MD LAB POCT ORDERABLES - DEV ICE Final Result [facility] Department [place] [place] [address] * POCT glucose (02/06/2024 5:33 PM INSTITUTE DIRECTOR) Glucose, POC 90 70 - 199 mg/dL Blood 02/06/2024 5:33 PM INSTITUTE DIRECTOR 02/06/2024 5:33 PM INSTITUTE DIRECTOR Carin Granados MD LAB POCT ORDERABLES - DEV ICE Final Result Performing Organization Address [facility] Co de Phone Number [facility] [place] [address] * POCT glucose (02/06/2024 11:52 AM INSTITUTE DIRECTOR) Glucose, POC 104 70 - 199 mg/dL Blood 02/06/2024 11:5 2 AM INSTITUTE DIRECTOR 02/06/2024 11:52 AM INSTITUTE DIRECTOR Carin Granados MD LAB POCT ORDERABLES - DEV ICE Final Result Performing Organization Address [facility] de Phone Number [facility] [place] [address] * POCT glucose (02/06/2024 8:16 AM INSTITUTE DIRECTOR) Glucose, POC 89 70 - 199 mg/dL Blood 02/06/2024 8:16 AM INSTITUTE DIRECTOR 02/06/2024 8:16 AM INSTITUTE DIRECTOR Carin Granados MD LAB POCT ORDERABLES - DEV ICE Final Result Performing Organization Address [facility] de Phone Number [facility] Department [place] [address] * Troponin I high-sensitivity series (baseline, 2hr, 4hr, 6hr) (02/06/2024 6:53 AM INSTITUTE DIRECTOR) Trop I hs <4 <=17 ng/L Comment: Interpretive Data For further hscTnI resources including the diagnostic algorithm and an aid in interpretation, copy and paste this link: [email or web address].testcatalog.org/[email or web address] Current Interpretive Data last revised 2019. Blood 02/06/2024 6:53 AM INSTITUTE DIRECTOR 02/06/2024 7:52 AM INSTITUTE DIRECTOR us Herrera Orosco MD LAB BLOOD ORDERABLES Final Resu lt Performing Organization Address City/[facility] Co de Phone Number [facility] Department [place] [address] * eGFR (02/05/2024 10:32 PM INSTITUTE DIRECTOR) eGFR 67 >=60 mL/min/1. 73 m2 Comment: [...] reviewed 2021. Blood 02/05/2024 10:3 2 PM INSTITUTE DIRECTOR 02/05/2024 11:39 PM INSTITUTE DIRECTOR us Carin Granados MD LAB BLOOD ORDERABLES Tete l Result Performing Organization Address City/[facility]/ZIP Co de Phone Number [facility] Department [place] [address] * Differential, auto (02/05/2024 10:32 PM INSTITUTE DIRECTOR) Neutrophil abs 4.1 1.5 - 6.5 K/cumm Imm gran abs 0.0 0.0 - 0.1 K/cumm [facility] Lymphocyte abs 0.9 0.8 - 3.3 K/cumm [facility] Monocyte abs 0.8 0.2 - 0.8 K/cumm [facility] Eosinophil abs 0.3 0.0 - 0.5 K/cumm [facility] Basophil abs 0.0 0.0 - 0.1 K/cumm [facility] Neutrophil pct 67.2 % [facility] Comment: Interpretive Data Percent cell count reference ranges are not reported, since discordance with absolute values may lead to misinterpretation of CBC data. Current Interpretive Data was last revised on 2017. Imm gran pct 0.3 % [facility] Comment: Interpretive Data Percent cell count reference ranges are not reported, since discordance with absolute values may lead to misinterpretation of CBC data. Current Interpretive Data was last revised on 2017. Lymphocyte pct 15.0 % [facility] Comment: Interpretive Data Percent cell count reference ranges are not reported, since discordance with absolute values may lead to misinterpretation of CBC data. Current Interpretive Data was last revised on 2017. Monocyte pct 12.3 % [facility] Comment: Interpretive Data Percent cell count reference ranges are not reported, since discordance with absolute values may lead to misinterpretation of CBC data. Current Interpretive Data was last revised on 2017. Eosinophil pct 4.9 % [facility] Comment: Interpretive Data Percent cell count reference ranges are not reported, since discordance with absolute values may lead to misinterpretation of CBC data. Current Interpretive Data was last revised on 2017. Basophil pct 0.3 % [facility] Comment: Interpretive Data Percent cell count reference ranges are not reported, since discordance with absolute values may lead to misinterpretation of CBC data. Current Interpretive Data was last revised on 2017. Blood 02/05/2024 10:3 2 PM INSTITUTE DIRECTOR 02/05/2024 11:27 PM INSTITUTE DIRECTOR us Carin Granados MD LAB BLOOD ORDERABLES Tete palomino Result [facility] Department [place] [address] * (ABNORMAL) CBC with auto differential (02/05/2024 10:32 PM INSTITUTE DIRECTOR) [facility] WBC 6.1 3.8 - 9.9 K/cumm Hgb 7.7(L) 11.9 - 15.5 g/dL [facility] Hct 24.4(L) 35.6 - 45.5 % [facility] Plt 228 150 - 400 K/cumm [facility] MPV 9.8 9.1 - 12.3 fL [facility] RBC 2.94(L) 3.90 - 5.20 M/cumm [facility] MCV 83.0 81.3 - 96.4 fL [facility] MCH 26.2(L) 27.1 - 33.3 pg [facility] MCHC 31.6(L) 32.3 - 35.7 g/dL [facility] RDW CV 13.8 11.1 - 14.9 % [facility] RDW SD 42.0 35.7 - 48.1 fL [facility] NRBC abs 0.00 0.00 - 0.01 K/cumm [facility] Blood 02/05/2024 10:3 2 PM INSTITUTE DIRECTOR 02/05/2024 11:27 PM INSTITUTE DIRECTOR Carin Granados MD LAB BLOOD ORDERABLES Tete l Result Performing Organization Address [facility] Co de Phone Number [facility] [place] [address] * Phosphorus (02/05/2024 10:32 PM INSTITUTE DIRECTOR) [facility] Phosphorus, pl 3.9 2.3 - 4.5 mg/dL Blood 02/05/2024 10:3 2 PM INSTITUTE DIRECTOR 02/05/2024 11:39 PM INSTITUTE DIRECTOR Carin Granados MD LAB BLOOD ORDERABLES Tete l Result [facility] [place] [address] * Magnesium (02/05/2024 10:32 PM INSTITUTE DIRECTOR) [facility] Magnesium 2.5 1.4 - 2.5 mg/dL Blood 02/05/2024 10:3 2 PM INSTITUTE DIRECTOR 02/05/2024 11:39 PM INSTITUTE DIRECTOR Carin Granados MD LAB BLOOD ORDERABLES Tete l Result Performing Organization Address [facility] Co de Phone Number [facility] Department [place] [address] * (ABNORMAL) Hepatic function panel (02/05/2024 10:32 PM INSTITUTE DIRECTOR) [facility] Bilirubin, total 0.8 0.1 - 1.2 mg/dL Bilirubin, direct 0.3 0.1 - 0.3 mg/dL [facility] Protein, pl 6.6 6.5 - 8.5 g/dL [facility] Albumin 2.7(L) 3.5 - 5.0 g/dL [facility] Alk phos 288(H) 40 - 130 Units/L [facility] ALT 25 7 - 45 Units/L [facility] AST 65(H) 10 - 45 Units/L [facility] Blood 02/05/2024 10:3 2 PM INSTITUTE DIRECTOR 02/05/2024 11:39 PM INSTITUTE DIRECTOR Carin Granados MD LAB BLOOD ORDERABLES Tete l Result Performing Organization Address [facility] Co de Phone Number [facility] Department [place] [address] * (ABNORMAL) Basic metabolic panel (02/05/2024 10:32 PM INSTITUTE DIRECTOR) [facility] Sodium 139 135 - 145 mmol/L Potassium, pl 5.4(H) 3.3 - 4.9 mmol/L [facility] Chloride 101 97 - 110 mmol/L [facility] CO2 30 22 - 32 mmol/L [facility] Anion gap 8 2 - 15 mmol/L [facility] BUN 30(H) 6 - 25 mg/dL [facility] Creatinine 1.08 0.60 - 1.10 mg/dL [facility] Glucose 125 70 - 199 mg/dL [facility] Comment: Interpretive Data Fasting glucose [...] 2022. Calcium 8.9 8.5 - 10.3 mg/dL [facility] Blood 02/05/2024 10:3 2 PM INSTITUTE DIRECTOR 02/05/2024 11:39 PM INSTITUTE DIRECTOR us Carin Granados MD LAB BLOOD ORDERABLES Tete l Result [facility] Department [place] [address] * POCT glucose (02/05/2024 9:13 PM INSTITUTE DIRECTOR) Glucose, POC 171 70 - 199 mg/dL Blood 02/05/2024 9:13 PM INSTITUTE DIRECTOR 02/05/2024 9:13 PM INSTITUTE DIRECTOR Carin Granados MD LAB POCT ORDERABLES - DEV ICE Final Result [facility] Department [place] [place] [address] * POCT glucose (02/05/2024 5:38 PM INSTITUTE DIRECTOR) Glucose, POC 149 70 - 199 mg/dL Blood 02/05/2024 5:38 PM INSTITUTE DIRECTOR 02/05/2024 5:38 PM INSTITUTE DIRECTOR Carin Granados MD LAB POCT ORDERABLES - DEV ICE Final Result Performing Organization Address [facility] Co de Phone Number [facility] Department [place] [address] * Blood culture Blood (02/05/2024 3:25 PM INSTITUTE DIRECTOR) Report Final Report: No growth Blood 02/05/2024 3:25 PM INSTITUTE DIRECTOR 02/05/2024 4:30 PM INSTITUTE DIRECTOR Narrative [facility] - 02/10/2024 7:00 AM INSTITUTE DIRECTOR Collection->Peripheral 1. Blood cultures are incubated for [...] organism identification may be performed using the Cold Genesysigene Gram-Positive Blood Culture Assay. This assay detects microbial DNA in positive blood culture broth via hybridization of target DNA to capture oligonucleotides on a microarray. This assay has been cleared by the [place] Food and Drug Administration and its performance characteristics have been verified by the [facility]biology Laboratory. 5. For questions about this culture, contact the Microbiology Laboratory at [phone]. Interpretive data was last revised on 2019. Carin Granados MD LAB MICROBIOLOGY - GENERA L ORDERABLES Final Result Performing Organization Address [facility] Co de Phone Number [facility] Department [place] [address] * Blood culture Blood (02/05/2024 3:25 PM INSTITUTE DIRECTOR) Report Final Report: No growth Blood 02/05/2024 3:25 PM INSTITUTE DIRECTOR 02/05/2024 4:30 PM INSTITUTE DIRECTOR Narrative [facility] - 02/10/2024 7:00 AM INSTITUTE DIRECTOR Collection->Peripheral 1. Blood cultures are incubated for [...] organism identification may be performed using the Cold Genesysigene Gram-Positive Blood Culture Assay. This assay detects microbial DNA in positive blood culture broth via hybridization of target DNA to capture oligonucleotides on a microarray. This assay has been cleared by the [place] Food and Drug Administration and its performance characteristics have been verified by the [facility]biology Laboratory. 5. For questions about this culture, contact the Microbiology Laboratory at [phone]. Interpretive data was last revised on 2019. us Carin Granados MD LAB MICROBIOLOGY - GENERA L ORDERABLES Final Result [facility] Department [place] [address] * POCT glucose (02/05/2024 2:10 PM INSTITUTE DIRECTOR) Glucose, POC 170 70 - 199 mg/dL Blood 02/05/2024 2:10 PM INSTITUTE DIRECTOR 02/05/2024 2:10 PM INSTITUTE DIRECTOR Carin Granados MD LAB POCT ORDERABLES - DEV ICE Final Result Performing Organization Address City/[facility] Co de Phone Number [facility] [place] [address] * POCT glucose (02/05/2024 9:18 AM INSTITUTE DIRECTOR) Glucose, POC 88 70 - 199 mg/dL Blood 02/05/2024 9:18 AM INSTITUTE DIRECTOR 02/05/2024 9:18 AM INSTITUTE DIRECTOR Carin Granados MD LAB POCT ORDERABLES - DEV ICE Final Result Performing Organization Address [facility] de Phone Number [facility] [place] [address] * Wound Care (02/05/2024 8:16 AM INSTITUTE DIRECTOR) Narrative Sari Santos DO - 02/05/2024 8:16 AM INSTITUTE DIRECTOR Andrew Seaman MD 02/05/2024 8:21 AM Wound Care Date/Time: 02/05/2024 8:16 AM Performed by: Andrew Seaman MD Authorized by: Andrew Seaman MD Associated wounds: Wound 12/04/23 Pressure Injury Sacrum Consent: Consent obtained: Verbal Consent given by: Patient Risks, benefits, and alternatives were discussed: yes Risks discussed: Bleeding and infection Alternatives discussed: No treatment [place] protocol: Procedure explained and questions answered to [...] (ABNORMAL) Potassium, whole blood (02/05/2024 8:08 AM INSTITUTE DIRECTOR) Potassium, bld 5.4(H) 3.3 - 4.9 mmol/L Blood 02/05/2024 8:08 AM INSTITUTE DIRECTOR 02/05/2024 8:48 AM INSTITUTE DIRECTOR Ashkan Reyes MD LAB BLOOD ORDERABLES Final Result Performing Organization Address [facility] de Phone Number [facility] Department [place] [address] * (ABNORMAL) Potassium (02/05/2024 7:45 AM INSTITUTE DIRECTOR) Potassium, pl 5.2(H) 3.3 - 4.9 mmol/L Blood 02/05/2024 7:45 AM INSTITUTE DIRECTOR 02/05/2024 8:12 AM INSTITUTE DIRECTOR Narrative [facility] - 02/05/2024 8:32 AM INSTITUTE DIRECTOR Provider to discontinue after two normal results. Ashkan Reyes MD LAB BLOOD ORDERABLES Final Result Performing Organization Address [facility] Co de Phone Number [facility] [place] [address] * POCT glucose (02/05/2024 6:00 AM INSTITUTE DIRECTOR) Glucose, POC 124 70 - 199 mg/dL Blood 02/05/2024 6:00 AM INSTITUTE DIRECTOR 02/05/2024 6:00 AM INSTITUTE DIRECTOR Carin Granados MD LAB POCT ORDERABLES - DEV ICE Final Result Performing Organization Address City/[facility] Co de Phone Number [facility] [place] [address] * POCT glucose (02/05/2024 5:04 AM INSTITUTE DIRECTOR) Glucose, POC 119 70 - 199 mg/dL Blood 02/05/2024 5:04 AM INSTITUTE DIRECTOR 02/05/2024 5:04 AM INSTITUTE DIRECTOR Carin Granados MD LAB POCT ORDERABLES - DEV ICE Final Result Performing Organization Address [facility] [place] [address] * POCT glucose (02/05/2024 4:11 AM INSTITUTE DIRECTOR) Glucose, POC 105 70 - 199 mg/dL Blood 02/05/2024 4:11 AM INSTITUTE DIRECTOR 02/05/2024 4:11 AM INSTITUTE DIRECTOR Result [facility] Carin Granados MD LAB POCT ORDERABLES - DEV ICE Final Result Performing Organization Address [facility] [place] [address] * ECG 12 lead (02/05/2024 3:22 AM INSTITUTE DIRECTOR) Ventricular Rate EKG/Min 101 BPM [facility] Atrial Rate 101 BPM [facility] OK-Interval (MSEC) 148 ms [facility] QRS-Interval (MSEC) 82 ms [facility] QT-Interval (MSEC) 338 ms [facility] QTc 438 ms [facility] P [place] 67 degrees [facility] R [place] 21 degrees [facility] T [place] 48 degrees [facility] Diagnosis Sinus tachycardia Otherwise normal ECG When compared with ECG of 21-JAN-2024 15:37, T wave amplitude has increased in Anterior leads Confirmed by KIRSTIN GIVENS M.D ([id number]) on 02/09/2024 11:54:39 AM [facility] 02/05/2024 3:22 AM INSTITUTE DIRECTOR 02/09/2024 11:54 AM INSTITUTE DIRECTOR us Ashkan Reyes MD ECG ORDERABLES Final Resu lt [facility] * eGFR (02/04/2024 9:38 PM INSTITUTE DIRECTOR) Pathologist [facility] eGFR 66 >=60 mL/min/1. 73 m2 Comment: [...] last reviewed 2021. Blood 02/04/2024 9:38 PM INSTITUTE DIRECTOR 02/04/2024 11:21 PM INSTITUTE DIRECTOR us Carin Granados MD LAB BLOOD ORDERABLES Tete l Result [facility] [place] [address] * Differential, auto (02/04/2024 9:38 PM INSTITUTE DIRECTOR) Neutrophil abs 6.2 1.5 - 6.5 K/cumm Imm gran abs 0.1 0.0 - 0.1 K/cumm [facility] Lymphocyte abs 0.9 0.8 - 3.3 K/cumm [facility] Monocyte abs 0.8 0.2 - 0.8 K/cumm [facility] Eosinophil abs 0.4 0.0 - 0.5 K/cumm [facility] Basophil abs 0.0 0.0 - 0.1 K/cumm [facility] Neutrophil pct 74.5 % [facility] Comment: Interpretive Data Percent cell count reference ranges are not reported, since discordance with absolute values may lead to misinterpretation of CBC data. Current Interpretive Data was last revised on 2017. Imm gran pct 0.6 % [facility] Comment: Interpretive Data Percent cell count reference ranges are not reported, since discordance with absolute values may lead to misinterpretation of CBC data. Current Interpretive Data was last revised on 2017. Lymphocyte pct 10.9 % [facility] Comment: Interpretive Data Percent cell count reference ranges are not reported, since discordance with absolute values may lead to misinterpretation of CBC data. Current Interpretive Data was last revised on 2017. Monocyte pct 9.2 % [facility] Comment: Interpretive Data Percent cell count reference ranges are not reported, since discordance with absolute values may lead to misinterpretation of CBC data. Current Interpretive Data was last revised on 2017. Eosinophil pct 4.4 % [facility] Comment: Interpretive Data Percent cell count reference ranges are not reported, since discordance with absolute values may lead to misinterpretation of CBC data. Current Interpretive Data was last revised on 2017. Basophil pct 0.4 % [facility] Comment: Interpretive Data Percent cell count reference ranges are not reported, since discordance with absolute values may lead to misinterpretation of CBC data. Current Interpretive Data was last revised on 2017. Blood 02/04/2024 9:38 PM INSTITUTE DIRECTOR 02/04/2024 11:22 PM INSTITUTE DIRECTOR us Carin Granados MD LAB BLOOD ORDERABLES Tete l Result Performing Organization Address City/State/[facility] de Phone Number [facility] Department [place] [address] * (ABNORMAL) CBC with auto differential (02/04/2024 9:38 PM INSTITUTE DIRECTOR) Pathologist [facility] WBC 8.3 3.8 - 9.9 K/cumm Hgb 7.9(L) 11.9 - 15.5 g/dL [facility] Hct 25.1(L) 35.6 - 45.5 % [facility] Plt 252 150 - 400 K/cumm [facility] MPV 10.4 9.1 - 12.3 fL [facility] RBC 2.97(L) 3.90 - 5.20 M/cumm [facility] MCV 84.5 81.3 - 96.4 fL [facility] MCH 26.6(L) 27.1 - 33.3 pg [facility] MCHC 31.5(L) 32.3 - 35.7 g/dL [facility] RDW CV 14.1 11.1 - 14.9 % [facility] RDW SD 43.5 35.7 - 48.1 fL [facility] NRBC abs 0.00 0.00 - 0.01 K/cumm [facility] Blood 02/04/2024 9:38 PM INSTITUTE DIRECTOR 02/04/2024 11:22 PM INSTITUTE DIRECTOR us Carin Granados MD LAB BLOOD ORDERABLES Tete l Result Performing Organization Address [facility] Co de Phone Number [facility] Department [place] [address] * Phosphorus (02/04/2024 9:38 PM INSTITUTE DIRECTOR) Pathologist [facility] Phosphorus, pl 3.4 2.3 - 4.5 mg/dL Blood 02/04/2024 9:38 PM INSTITUTE DIRECTOR 02/04/2024 11:21 PM INSTITUTE DIRECTOR us Carin Granados MD LAB BLOOD ORDERABLES Tete l Result Performing Organization Address [facility] Co de Phone Number [facility] Department [place] [address] * (ABNORMAL) Magnesium (02/04/2024 9:38 PM INSTITUTE DIRECTOR) Pathologist [facility] Magnesium 2.6(H) 1.4 - 2.5 mg/dL Blood 02/04/2024 9:38 PM INSTITUTE DIRECTOR 02/04/2024 11:21 PM INSTITUTE DIRECTOR Carin Granados MD LAB BLOOD ORDERABLES Tete l Result Performing Organization Address [facility] de Phone Number [facility] [place] [address] * (ABNORMAL) Hepatic function panel (02/04/2024 9:38 PM INSTITUTE DIRECTOR) [facility] Bilirubin, total 0.8 0.1 - 1.2 mg/dL Bilirubin, direct 0.2 0.1 - 0.3 mg/dL [facility] Comment:Reviewed Protein, pl 6.6 6.5 - 8.5 g/dL [facility] Albumin 2.5(L) 3.5 - 5.0 g/dL [facility] Alk phos 268(H) 40 - 130 Units/L [facility] ALT 17 7 - 45 Units/L [facility] AST 61(H) 10 - 45 Units/L [facility] Blood 02/04/2024 9:38 PM INSTITUTE DIRECTOR 02/04/2024 11:21 PM INSTITUTE DIRECTOR Carin Granados MD LAB BLOOD ORDERABLES Tete l Result Performing Organization Address [facility] Co de Phone Number [facility] [employer] [place], [place] [id number] * (ABNORMAL) Basic metabolic panel (02/04/2024 9:38 PM INSTITUTE DIRECTOR) [facility] Sodium 137 135 - 145 mmol/L Potassium, pl 5.9(H) 3.3 - 4.9 mmol/L [facility] Chloride 103 97 - 110 mmol/L [facility] CO2 28 22 - 32 mmol/L [facility] Anion gap 6 2 - 15 mmol/L [facility] BUN 35(H) 6 - 25 mg/dL [facility] Creatinine 1.10 0.60 - 1.10 mg/dL [facility] Glucose 92 70 - 199 mg/dL [facility] Comment: Interpretive Data Fasting glucose [...] 2022. Calcium 8.5 8.5 - 10.3 mg/dL [facility] Blood 02/04/2024 9:38 PM INSTITUTE DIRECTOR 02/04/2024 11:21 PM INSTITUTE DIRECTOR us Carin Granados MD LAB BLOOD ORDERABLES Tete l Result Performing Organization Address City/[facility]/ZIP Co de Phone Number [facility] Department [place] [place] [address] * POCT glucose (02/04/2024 9:04 PM INSTITUTE DIRECTOR) [facility] Glucose, POC 105 70 - 199 mg/dL Blood 02/04/2024 9:04 PM INSTITUTE DIRECTOR 02/04/2024 9:04 PM INSTITUTE DIRECTOR Carin Granados MD LAB POCT ORDERABLES - DEV ICE Final Result Performing Organization Address [facility]/ZIP Co de Phone Number [facility] Department [place] [address] * POCT glucose (02/04/2024 5:12 PM INSTITUTE DIRECTOR) Glucose, POC 108 70 - 199 mg/dL Blood 02/04/2024 5:12 PM INSTITUTE DIRECTOR 02/04/2024 5:12 PM INSTITUTE DIRECTOR Carin Granados MD LAB POCT ORDERABLES - DEV ICE Final Result Performing Organization Address [facility] de Phone Number [facility] Department [place] [address] * POCT glucose (02/04/2024 11:56 AM INSTITUTE DIRECTOR) Glucose, POC 104 70 - 199 mg/dL Blood 02/04/2024 11:5 6 AM INSTITUTE DIRECTOR 02/04/2024 11:56 AM INSTITUTE DIRECTOR Carin Granados MD LAB POCT ORDERABLES - DEV ICE Final Result Performing Organization Address [facility] de Phone Number [facility] Department [place] [address] * (ABNORMAL) Hemoglobin and hematocrit (02/04/2024 11:16 AM INSTITUTE DIRECTOR) [facility] Hgb 7.8(L) 11.9 - 15.5 g/dL Hct 24.2(L) 35.6 - 45.5 % [facility] Blood 02/04/2024 11:1 6 AM INSTITUTE DIRECTOR 02/04/2024 12:15 PM INSTITUTE DIRECTOR Carin Granados MD LAB BLOOD ORDERABLES Tete l Result Performing Organization Address [facility] de Phone Number [facility] [place] [address] * MRI Sacrum Coccyx WO Contrast (02/04/2024 10:53 AM INSTITUTE DIRECTOR) Anatomical Region Laterality Modality Pelvis N/A Magnetic Resonan ce 02/04/2024 1:34 PM INSTITUTE DIRECTOR Impressions 02/04/2024 2:11 PM INSTITUTE DIRECTOR 1. 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 2. 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 Dictated by: Patric Schmitt D.O. The radiology attending physician has personally reviewed this study, and had reviewed and/or edited this written report and agrees with it. Electronically signed by: Jayme Page M.D. Narrative 02/04/2024 2:11 PM INSTITUTE DIRECTOR EXAMINATION: MRI SACRUM COCCYX WO CONTRAST HISTORY: [...] Result * Transfuse RBC (02/04/2024 7:44 AM INSTITUTE DIRECTOR) Blood Mariano Eid MD BLOOD TRANSFUSION ORDERABLES F inal Result Performing Organization Address [facility] Co de Phone Number [facility] Department [place] [place] [address] * POCT glucose (02/04/2024 7:44 AM INSTITUTE DIRECTOR) [facility] Signature Glucose, POC 107 70 - 199 mg/dL Blood 02/04/2024 7:44 AM INSTITUTE DIRECTOR 02/04/2024 7:44 AM INSTITUTE DIRECTOR Carin Granados MD LAB POCT ORDERABLES - DEV ICE Final Result Performing Organization Address [facility] Co de Phone Number [facility] Department [place] [place] [address] * Type and screen (02/04/2024 1:27 AM INSTITUTE DIRECTOR) [facility] ABO Rh O Positive Ruiz, indirect Negative [facility] Blood 02/04/2024 1:27 AM INSTITUTE DIRECTOR 02/04/2024 2:20 AM INSTITUTE DIRECTOR Narrative [facility] - 02/04/2024 3:56 AM INSTITUTE DIRECTOR Has the patient had Daratumumab or Isatuximab in the past 6 months?->Unknown Mariano Eid MD LAB BLOOD BANK TEST ORDERABLES Final Result Performing Organization Address [facility] de Phone Number [facility] [place] [place] [address] * Prepare RBC: 1 Units (02/04/2024 12:43 AM INSTITUTE DIRECTOR) [facility] Product code [id number] Unit Number [id number]- I [facility] Product Blood Type OPOS [facility] Dispense Status PRESUMED TRANSFUSED [facility] Blood 02/04/2024 12:4 3 AM INSTITUTE DIRECTOR 02/04/2024 12:43 AM INSTITUTE DIRECTOR Narrative [facility] - 02/04/2024 4:01 PM INSTITUTE DIRECTOR Are special requirements needed? (All products are leukoreduced and CMV- safe)- >No Date required:-[id number] LRRBC # of [id number] Reasons:-Hgb <7 g/dL} Mariano Eid MD BLOOD BANK PRODUCT ORDERABLES Final Result Performing Organization Address [facility] Co de Phone Number [facility] [place] [place] [address] * (ABNORMAL) eGFR (02/03/2024 9:45 PM INSTITUTE DIRECTOR) [facility] eGFR 58(L) >=60 mL/min/1. 73 m2 Comment: [...] last reviewed 2021. Blood 02/03/2024 9:45 PM INSTITUTE DIRECTOR 02/03/2024 10:44 PM INSTITUTE DIRECTOR us Meme Santana MD LAB BLOOD ORDERABLES Fin al Result [facility] Department [place] [address] * Differential, auto (02/03/2024 9:45 PM INSTITUTE DIRECTOR) Neutrophil abs 4.8 1.5 - 6.5 K/cumm Imm gran abs 0.0 0.0 - 0.1 K/cumm [facility] Lymphocyte abs 1.0 0.8 - 3.3 K/cumm [facility] Monocyte abs 0.8 0.2 - 0.8 K/cumm [facility] Eosinophil abs 0.2 0.0 - 0.5 K/cumm [facility] Basophil abs 0.0 0.0 - 0.1 K/cumm [facility] Neutrophil pct 70.6 % [facility] Comment: Interpretive Data Percent cell count reference ranges are not reported, since discordance with absolute values may lead to misinterpretation of CBC data. Current Interpretive Data was last revised on 2017. Imm gran pct 0.4 % [facility] Comment: Interpretive Data Percent cell count reference ranges are not reported, since discordance with absolute values may lead to misinterpretation of CBC data. Current Interpretive Data was last revised on 2017. Lymphocyte pct 14.7 % [facility] Comment: Interpretive Data Percent cell count reference ranges are not reported, since discordance with absolute values may lead to misinterpretation of CBC data. Current Interpretive Data was last revised on 2017. Monocyte pct 11.0 % [facility] Comment: Interpretive Data Percent cell count reference ranges are not reported, since discordance with absolute values may lead to misinterpretation of CBC data. Current Interpretive Data was last revised on 2017. Eosinophil pct 3.2 % [facility] Comment: Interpretive Data Percent cell count reference ranges are not reported, since discordance with absolute values may lead to misinterpretation of CBC data. Current Interpretive Data was last revised on 2017. Basophil pct 0.1 % [facility] Comment: Interpretive Data Percent cell count reference ranges are not reported, since discordance with absolute values may lead to misinterpretation of CBC data. Current Interpretive Data was last revised on 2017. Blood 02/03/2024 9:45 PM INSTITUTE DIRECTOR 02/03/2024 10:44 PM INSTITUTE DIRECTOR us Meme Santana MD LAB BLOOD ORDERABLES Fin al Result [facility] Department [place] [address] * (ABNORMAL) CBC with auto differential (02/03/2024 9:45 PM INSTITUTE DIRECTOR) WBC 6.8 3.8 - 9.9 K/cumm Hgb 6.7(L) 11.9 - 15.5 g/dL [facility] Hct 21.5(L) 35.6 - 45.5 % [facility] Plt 194 150 - 400 K/cumm [facility] MPV 10.3 9.1 - 12.3 fL [facility] RBC 2.56(L) 3.90 - 5.20 M/cumm [facility] MCV 84.0 81.3 - 96.4 fL [facility] MCH 26.2(L) 27.1 - 33.3 pg [facility] MCHC 31.2(L) 32.3 - 35.7 g/dL [facility] RDW CV 14.2 11.1 - 14.9 % [facility] RDW SD 43.0 35.7 - 48.1 fL [facility] NRBC abs 0.00 0.00 - 0.01 K/cumm [facility] Blood 02/03/2024 9:45 PM INSTITUTE DIRECTOR 02/03/2024 10:44 PM INSTITUTE DIRECTOR Carin Granados MD LAB BLOOD ORDERABLES Tete l Result [facility] [place] [place] [address] * Phosphorus (02/03/2024 9:45 PM INSTITUTE DIRECTOR) Phosphorus, pl 3.6 2.3 - 4.5 mg/dL Blood 02/03/2024 9:45 PM INSTITUTE DIRECTOR 02/03/2024 10:44 PM INSTITUTE DIRECTOR Carin Granados MD LAB BLOOD ORDERABLES Tete l Result Performing Organization Address City/[facility]/ZIP Co de Phone Number [facility] [place] [place] [address] * (ABNORMAL) Magnesium (02/03/2024 9:45 PM INSTITUTE DIRECTOR) Magnesium 2.9(H) 1.4 - 2.5 mg/dL Blood 02/03/2024 9:45 PM INSTITUTE DIRECTOR 02/03/2024 10:44 PM INSTITUTE DIRECTOR Carin Granados MD LAB BLOOD ORDERABLES Tete l Result [facility] [place] [address] * (ABNORMAL) Hepatic function panel (02/03/2024 9:45 PM INSTITUTE DIRECTOR) [facility] Bilirubin, total 0.6 0.1 - 1.2 mg/dL Bilirubin, direct <0.2 0.1 - 0.3 mg/dL [facility] Comment:Reviewed Protein, pl 6.1(L) 6.5 - 8.5 g/dL [facility] Albumin 2.4(L) 3.5 - 5.0 g/dL [facility] Alk phos 228(H) 40 - 130 Units/L [facility] ALT 16 7 - 45 Units/L [facility] AST 36 10 - 45 Units/L [facility] Blood 02/03/2024 9:45 PM INSTITUTE DIRECTOR 02/03/2024 10:44 PM INSTITUTE DIRECTOR us Carin Granados MD LAB BLOOD ORDERABLES Tete l Result [facility] Department [place] [address] * (ABNORMAL) Basic metabolic panel (02/03/2024 9:45 PM INSTITUTE DIRECTOR) [facility] Sodium 139 135 - 145 mmol/L Potassium, pl 5.2(H) 3.3 - 4.9 mmol/L [facility] Chloride 104 97 - 110 mmol/L [facility] CO2 30 22 - 32 mmol/L [facility] Anion gap 5 2 - 15 mmol/L [facility] BUN 31(H) 6 - 25 mg/dL [facility] Creatinine 1.22(H) 0.60 - 1.10 mg/dL [facility] Glucose 170 70 - 199 mg/dL [facility] Comment: Interpretive Data Fasting glucose [...] 2022. Calcium 8.2(L) 8.5 - 10.3 mg/dL [facility] Blood 02/03/2024 9:45 PM INSTITUTE DIRECTOR 02/03/2024 10:44 PM INSTITUTE DIRECTOR Carin Granados MD LAB BLOOD ORDERABLES Tete l Result Performing Organization Address City/[facility]/ZIP Co de Phone Number [facility] [place] [place] [address] * POCT glucose (02/03/2024 9:39 PM INSTITUTE DIRECTOR) Glucose, POC 190 70 - 199 mg/dL Blood 02/03/2024 9:39 PM INSTITUTE DIRECTOR 02/03/2024 9:39 PM INSTITUTE DIRECTOR Carin Granados MD LAB POCT ORDERABLES - DEV ICE Final Result Performing Organization Address City/[facility] Co de Phone Number [facility] [place] [place] [address] * POCT glucose (02/03/2024 5:47 PM INSTITUTE DIRECTOR) Glucose, POC 131 70 - 199 mg/dL Blood 02/03/2024 5:47 PM INSTITUTE DIRECTOR 02/03/2024 5:47 PM INSTITUTE DIRECTOR Carin Granados MD LAB POCT ORDERABLES - DEV ICE Final Result Performing Organization Address City/[facility] Co de Phone Number [facility] [place] [place] [address] * POCT glucose (02/03/2024 2:37 PM INSTITUTE DIRECTOR) Glucose, POC 138 70 - 199 mg/dL Blood 02/03/2024 2:37 PM INSTITUTE DIRECTOR 02/03/2024 2:37 PM INSTITUTE DIRECTOR us Carin Granados MD LAB POCT ORDERABLES - DEV ICE Final Result [facility] Department [place] [address] * CT Abdomen Pelvis W Contrast (02/03/2024 10:03 AM INSTITUTE DIRECTOR) Anatomical Region Laterality Modality Body N/A Computed Tomogra phy 02/03/2024 10:5 0 AM INSTITUTE DIRECTOR Impressions 02/03/2024 12:25 PM INSTITUTE DIRECTOR 1. Improving left upper pole and left [...] Zeke Chris M.D. Narrative 02/03/2024 12:25 PM INSTITUTE DIRECTOR EXAMINATION: Computed tomography of the abdomen and [...] esult * POCT glucose (02/03/2024 9:24 AM INSTITUTE DIRECTOR) Glucose, POC 131 70 - 199 mg/dL Blood 02/03/2024 9:24 AM INSTITUTE DIRECTOR 02/03/2024 9:24 AM INSTITUTE DIRECTOR us Carin Granados MD LAB POCT ORDERABLES - DEV ICE Final Result Performing Organization Address City/[facility] Co de Phone Number [facility] Department [place] [address] * eGFR (02/02/2024 10:40 PM INSTITUTE DIRECTOR) Pathologist [facility] eGFR 75 >=60 mL/min/1. 73 m2 Comment: [...] reviewed 2021. Blood 02/02/2024 10:4 0 PM INSTITUTE DIRECTOR 02/03/2024 12:36 AM INSTITUTE DIRECTOR us Meme Santana MD LAB BLOOD ORDERABLES Fin al Result Performing Organization Address City/[facility]/ZIP Co de Phone Number [facility] Department [place] [address] * Differential, auto (02/02/2024 10:40 PM INSTITUTE DIRECTOR) Neutrophil abs 5.7 1.5 - 6.5 K/cumm Imm gran abs 0.0 0.0 - 0.1 K/cumm [facility] Lymphocyte abs 1.1 0.8 - 3.3 K/cumm [facility] Monocyte abs 0.8 0.2 - 0.8 K/cumm [facility] Eosinophil abs 0.3 0.0 - 0.5 K/cumm [facility] Basophil abs 0.0 0.0 - 0.1 K/cumm [facility] Neutrophil pct 71.1 % [facility] Comment: Interpretive Data Percent cell count reference ranges are not reported, since discordance with absolute values may lead to misinterpretation of CBC data. Current Interpretive Data was last revised on 2017. Imm gran pct 0.4 % [facility] Comment: Interpretive Data Percent cell count reference ranges are not reported, since discordance with absolute values may lead to misinterpretation of CBC data. Current Interpretive Data was last revised on 2017. Lymphocyte pct 14.1 % [facility] Comment: Interpretive Data Percent cell count reference ranges are not reported, since discordance with absolute values may lead to misinterpretation of CBC data. Current Interpretive Data was last revised on 2017. Monocyte pct 10.4 % [facility] Comment: Interpretive Data Percent cell count reference ranges are not reported, since discordance with absolute values may lead to misinterpretation of CBC data. Current Interpretive Data was last revised on 2017. Eosinophil pct 3.9 % [facility] Comment: Interpretive Data Percent cell count reference ranges are not reported, since discordance with absolute values may lead to misinterpretation of CBC data. Current Interpretive Data was last revised on 2017. Basophil pct 0.1 % [facility] Comment: Interpretive Data Percent cell count reference ranges are not reported, since discordance with absolute values may lead to misinterpretation of CBC data. Current Interpretive Data was last revised on 2017. Blood 02/02/2024 10:4 0 PM INSTITUTE DIRECTOR 02/03/2024 12:04 AM INSTITUTE DIRECTOR Meme Santana MD LAB BLOOD ORDERABLES Fin al Result Performing Organization Address [facility] de Phone Number [facility] Department [place] [address] * (ABNORMAL) CBC with auto differential (02/02/2024 10:40 PM INSTITUTE DIRECTOR) Pathologist [facility] WBC 8.0 3.8 - 9.9 K/cumm Hgb 7.2(L) 11.9 - 15.5 g/dL [facility] Hct 22.5(L) 35.6 - 45.5 % [facility] Plt 190 150 - 400 K/cumm [facility] MPV 10.3 9.1 - 12.3 fL [facility] RBC 2.72(L) 3.90 - 5.20 M/cumm [facility] MCV 82.7 81.3 - 96.4 fL [facility] MCH 26.5(L) 27.1 - 33.3 pg [facility] MCHC 32.0(L) 32.3 - 35.7 g/dL [facility] RDW CV 14.0 11.1 - 14.9 % [facility] RDW SD 42.1 35.7 - 48.1 fL [facility] NRBC abs 0.00 0.00 - 0.01 K/cumm [facility] Blood 02/02/2024 10:4 0 PM INSTITUTE DIRECTOR 02/03/2024 12:04 AM INSTITUTE DIRECTOR us Carin Granados MD LAB BLOOD ORDERABLES Tete palomino Result Performing Organization Address [facility] Co de Phone Number [facility] Department [place] [address] * Phosphorus (02/02/2024 10:40 PM INSTITUTE DIRECTOR) Pathologist [facility] Phosphorus, pl 2.8 2.3 - 4.5 mg/dL Blood 02/02/2024 10:4 0 PM INSTITUTE DIRECTOR 02/03/2024 12:36 AM INSTITUTE DIRECTOR us Carin Granados MD LAB BLOOD ORDERABLES Tete l Result [facility] Department [place] [address] * (ABNORMAL) Magnesium (02/02/2024 10:40 PM INSTITUTE DIRECTOR) [facility] Magnesium 2.6(H) 1.4 - 2.5 mg/dL Blood 02/02/2024 10:4 0 PM INSTITUTE DIRECTOR 02/03/2024 12:36 AM INSTITUTE DIRECTOR Carin Granados MD LAB BLOOD ORDERABLES Tete l Result Performing Organization Address [facility] Co de Phone Number [facility] [place] [address] * (ABNORMAL) Hepatic function panel (02/02/2024 10:40 PM INSTITUTE DIRECTOR) [facility] Bilirubin, total 0.7 0.1 - 1.2 mg/dL Bilirubin, direct 0.2 0.1 - 0.3 mg/dL [facility] Protein, pl 6.4(L) 6.5 - 8.5 g/dL [facility] Albumin 2.6(L) 3.5 - 5.0 g/dL [facility] Alk phos 241(H) 40 - 130 Units/L [facility] ALT 13 7 - 45 Units/L [facility] AST 35 10 - 45 Units/L [facility] Blood 02/02/2024 10:4 0 PM INSTITUTE DIRECTOR 02/03/2024 12:36 AM INSTITUTE DIRECTOR Carin Granados MD LAB BLOOD ORDERABLES Tete l Result Performing Organization Address City/[facility] Co de Phone Number [facility] Department [place] [address] * (ABNORMAL) Basic metabolic panel (02/02/2024 10:40 PM INSTITUTE DIRECTOR) Sodium 138 135 - 145 mmol/L Potassium, pl 5.0(H) 3.3 - 4.9 mmol/L [facility] Chloride 102 97 - 110 mmol/L [facility] CO2 30 22 - 32 mmol/L [facility] Anion gap 6 2 - 15 mmol/L [facility] BUN 26(H) 6 - 25 mg/dL [facility] Creatinine 0.99 0.60 - 1.10 mg/dL [facility] Glucose 135 70 - 199 mg/dL [facility] Comment: Interpretive Data Fasting glucose [...] 2022. Calcium 8.4(L) 8.5 - 10.3 mg/dL [facility] Blood 02/02/2024 10:4 0 PM INSTITUTE DIRECTOR 02/03/2024 12:36 AM INSTITUTE DIRECTOR us Carin Granados MD LAB BLOOD ORDERABLES Tete l Result Performing Organization Address City/[facility]/ZIP Co de Phone Number [facility] Department [place] [place] [address] * POCT glucose (02/02/2024 8:25 PM INSTITUTE DIRECTOR) Glucose, POC 173 70 - 199 mg/dL Blood 02/02/2024 8:25 PM INSTITUTE DIRECTOR 02/02/2024 8:25 PM INSTITUTE DIRECTOR Carin Granados MD LAB POCT ORDERABLES - DEV ICE Final Result Performing Organization Address City/[facility]/ZIP Co de Phone Number [facility] Department [place] [address] * (ABNORMAL) Hemoglobin and hematocrit (02/02/2024 5:56 PM INSTITUTE DIRECTOR) Hgb 7.6(L) 11.9 - 15.5 g/dL Hct 23.2(L) 35.6 - 45.5 % [facility] Blood 02/02/2024 5:56 PM INSTITUTE DIRECTOR 02/02/2024 6:12 PM INSTITUTE DIRECTOR us Carin Granados MD LAB BLOOD ORDERABLES Tete l Result [facility] [place] [address] * POCT glucose (02/02/2024 4:53 PM INSTITUTE DIRECTOR) Glucose, POC 172 70 - 199 mg/dL Blood 02/02/2024 4:53 PM INSTITUTE DIRECTOR 02/02/2024 4:53 PM INSTITUTE DIRECTOR Carin Granados MD LAB POCT ORDERABLES - DEV ICE Final Result [facility] [place] [address] * Transfuse RBC (02/02/2024 2:55 PM INSTITUTE DIRECTOR) Blood Carin Granados MD BLOOD TRANSFUSION [place] [address] * POCT glucose (02/02/2024 12:56 PM INSTITUTE DIRECTOR) Glucose, POC 162 70 - 199 mg/dL Blood 02/02/2024 12:5 6 PM INSTITUTE DIRECTOR 02/02/2024 12:56 PM INSTITUTE DIRECTOR Carin Granados MD LAB POCT ORDERABLES - DEV ICE Final Result Performing Organization Address City/[facility] Co de Phone Number [facility] [place] [place] [address] * POCT glucose (02/02/2024 9:48 AM INSTITUTE DIRECTOR) Glucose, POC 126 70 - 199 mg/dL Blood 02/02/2024 9:48 AM INSTITUTE DIRECTOR 02/02/2024 9:48 AM INSTITUTE DIRECTOR Carin Granados MD LAB POCT ORDERABLES - DEV ICE Final Result Performing Organization Address [facility] [place] [address] * Hepatitis panel, acute Blood (01/27/2024 9:00 PM INSTITUTE DIRECTOR) Pathologist [facility] Hep A IgM Nonreactive Nonreactive Hep B core IgM Nonreactive Nonreactive [facility] Hep C Ab Nonreactive Nonreactive [facility] Comment:Antibodies to HCV no t detected. Does NOT exclude the possibility of recent exposure to HCV. Current interpretive data was last revised on 21 HepBsAg Nonreactive Nonreactive [facility] Blood 01/27/2024 9:00 PM INSTITUTE DIRECTOR 01/27/2024 9:44 PM INSTITUTE DIRECTOR Sheldon Duran MD LAB MICROBIOLOGY - GENERA L ORDERABLES Final Result Performing Organization Address [facility] Co de Phone Number [facility] [place] [place] [address] * (ABNORMAL) Lipid panel (01/26/2024 11:33 PM INSTITUTE DIRECTOR) Pathologist [facility] Cholesterol 137 30 - 199 mg/dL Comment: [...] on 2017. Triglycerides 171(H) <=149 mg/dL [facility] Comment: Interpretive Data Ages < or [...] on 2017. HDL 28(L) >=40 mg/dL [facility] Comment: Interpretive Data Ages < or [...] 2017. LDL, calculated 79 <=129 mg/dL [facility] Comment: Interpretive Data Ages < or [...] revised on 2023. Non-HDL Cholesterol 109 mg/[facility] Comment: Interpretive Data Ages < or [...] last revised on 2017. Chol/HDL ratio 5 [facility] Blood 01/26/2024 11:3 3 PM INSTITUTE DIRECTOR 01/27/2024 12:31 AM INSTITUTE DIRECTOR Sheldon Duran MD LAB BLOOD ORDERABLES Tete palomino Result [facility] Department [place] [address] * (ABNORMAL) Hemoglobin A1c (12/01/2023 6:48 PM CDT) Hgb A1C 10.6(H) 4.0 - 5.6 % Estimated Average Glucose 258 mg/dL [facility] Comment: The ADA recommends reporting an estimated Average Glucose (eAG) with all Hemoglobin A1c results using the equation derived from a study of 507 normal and diabetic adults. Minority populations were underrepresented and children were not included. (Diabetes Care 31:9990-7592, 2008). The eAG is not equivalent to a fasting glucose. 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 Coli. Not eligible for review. Multiple wounds that require cultures for discontinuation. 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 Health Care Agent Care Teams Portrait Studio Photographer Relationship Specialty Start Date End Date Barbara Oliva MD [address] [place] [id number] PCP - General Gastroenterology 12/02/23 Miscellaneous, Not In File 01/03/24
[2024-05-04 14:30] LABS: Basophils Percent Auto 0.4 % (0.2-1.2); Eosinophils Absolute Auto 0.2 K/mm3 (0-0.3); Eosinophils Percent Auto 2.6 % (0-4.4); Hematocrit 34.4 % (37.0-47.0); Hemoglobin 10.9 g/dL (12.0-15.0); Immature Granulocyte Absolute 0.02 K/mm3 (0.00-0.031); Immature Granulocyte Percent A 0.3 % (0-0.5); Lymphocytes Absolute Auto 1.51 K/mm3 (0.9-3.2); Mean Corpuscular HGB Conc 31.7 g/dl (32-36); Mean Corpuscular Hemoglobin 26.3 pg (26-34); Mean Corpuscular Volume 82.9 fl (80-100); Mean Platelet Volume 9.6 fl (7.4-10.4); Monocytes Absolute Auto 0.5 K/mm3 (0.1-0.6); Monocytes Percent Auto 6.3 % (2.6-8.5); Neutrophils Percent Auto 69.4 % (45.5-73.1); Platelet Count Result 183 k/mm3 (150-375); Red Blood Count 4.15 M/mm3 (4.2-5.4); White Blood Count 7.2 K/mm3 (4.5-10.0)
[2024-05-04 14:42] LABS: Lactic Acid Reflex 1.1 mmol/L (0.7-2.0)
[2024-05-04 14:44] LABS: Alanine Aminotransferase 35 U/L (6-35); Albumin Level 4.2 g/dL (3.5-5.1); Alkaline Phosphatase 183 U/L (38-126); Anion Gap 11 mmol/L (4-12); Aspartate Amino Transferase 28 U/L (14-36); Bilirubin,Total 0.7 mg/dL (0.2-1.3); Blood Urea Nitrogen 32 mg/dL (7-17); Calcium 9.5 mg/dL (8.4-10.2); Carbon Dioxide 20 mmol/L (22-30); Chloride 110 mmol/L (98-107); Estimated CRCL calculation 73 ml/min; Estimated Glomerular Filt Rate > 60; Glucose 148 mg/dL (65-110); Potassium 4.4 mmol/L (3.4-5.0); Sodium 141 mmol/L (137-145)
[2024-05-04 14:45] LABS: INR 1.4; Prothrombin Time 17.9 Seconds (11.1-14.7)
[2024-05-04] MEDS: fentaNYL CITRATE INJ (*CRX) 100 MCG/2 ML VIAL 50 MCG IV PUSH (14:46)
[2024-05-04 14:47] LABS: CRP < 0.5 mg/dL (<1.0)
[2024-05-04] MEDS: CEFEPIME 1 GM/NS 50 ML 1 GM/50 ML BAG IVPB (16:04)
[2024-05-04] MEDS: HYDROmorphone HCL INJ (*CRX) 1 MG/ML SYR IV PUSH (16:05)
[2024-05-04] MEDS: VANCOMYCIN 1,750 MG/NS 500 ML 1,750 MG/500 ML BAG 250 MG IVPB (16:37)
[2024-05-04] MEDS: SODIUM CHLORIDE 0.9% IV 1,000 ML 100 ML IV CONT (16:44)
--- NOTE | 2024-05-04 16:47 | ED.GENADULT ---
HPI - General Adult General Chief complaint: Skin/Abscess/Foreign Body Stated complaint: R foot pain/blisters Time Seen by Provider: 05/04/24 13:15 Source: patient Mode of arrival: wheelchair Limitations: no limitations History of Present Illness HPI narrative: 38-year-old with a history of diabetes, cirrhosis liver, rheumatoid arthritis, status post blood clot in the left upper extremity after PICC line placement in Jan 2024 here with a complains severe pain to her right great toes with blisters which started last night. She denies any trauma. Patient states that she was in the [facility] in ICU for Pneumonia was intubated for several days. She is taking Lovenox daily Onset (ago): day(s) (1) Location: lower extremity (right foot) Severity: severe Quality: aching Pain Consistency: constant Relieving factors: none Exacerbating factors: none Associated symptoms: denies other symptoms Treatments prior to arrival: none Related Data Home Medications ?Medication ?Instructions ?Recorded ?Confirmed ?Last Taken ?Type albuterol sulfate 90 mcg/actuation 2 puff inhalation QID PRN Dyspnea 08/31/19 12/09/21 Unknown History aerosol inhaler beclomethasone dipropionate 80 1 inh inhalation Q12H 08/31/19 12/09/21 Unknown History mcg/actuation HFA breath activated aerosol (Qvar RediHaler) loratadine 10 mg tablet 10 mg PO DAILY 08/31/19 12/09/21 Unknown History montelukast 10 mg tablet 10 mg PO DAILY 08/31/19 12/09/21 Unknown History (Singulair) sertraline 100 mg tablet 200 mg PO BID 08/31/19 12/09/21 Unknown History simvastatin 20 mg tablet 20 mg PO DAILY 08/31/19 12/09/21 Unknown History sitagliptin phosphate 50 mg tablet 50 mg PO DAILY 12/09/21 12/09/21 Unknown History (Januvia) tobramycin 0.3 % eye drops 1 drp ophthalmic (eye) DIRECTED 12/09/21 12/09/21 Unknown History trazodone 100 mg tablet 100 mg PO DAILY 12/09/21 12/09/21 Unknown History insulin glargine 100 unit/mL (3 unit subcut 03/06/22 Unknown History mL) subcutaneous pen (Basaglar KwikPen U-100 Insulin) omeprazole 40 mg capsule,delayed mg 03/06/22 Unknown History release Allergies Allergy/AdvReac Type Severity Reaction Status Date / Time clindamycin Allergy Unknown Unknown Verified 05/04/24 14:05 latex Allergy Unknown Unknown Verified 05/04/24 14:05 paroxetine Allergy Unknown Unknown Verified 05/04/24 14:05 morphine Allergy Itching Verified 05/04/24 14:05 Review of Systems Review of Systems: All systems reviewed & are unremarkable except as noted in HPI and below Constitutional: Constitutional: Reports no additional constitutional complaints Eyes: Eyes: Reports no additional eye complaints ENT: Reports system reviewed and no additional complaints, except as documented Cardiovascular: Cardiovascular: Reports no additional cardiovascular complaints Respiratory: Respiratory: Reports no additional respiratory complaints Musculoskeletal: Musculoskeletal: Reports as per HPI Integumentary/Breasts: Skin/Breast: Reports as per HPI [facility] Past Medical History Medical History Morbid obesity NSAID long-term use Bronchitis Asthma Rheumatoid arthritis Cirrhosis Fatty liver Hyperlipidemia Diabetes mellitus Surgical History Surgical History History of corneal transplant Left eye, 2013 History of cholecystectomy Hx of appendectomy Family History Family History Father Hypertension Sibling Hypertension Thyroid disorder Sibling Diabetes mellitus Mother Diabetes mellitus Hx of heart artery stent S/P triple vessel bypass Thyroid disorder Social History Social History Social History: The patient lives with her fiance. She has never been . She is not working. She does not receive any disability. She has no children. She does not have anybody does need to be her durable power commonwealth attorney. The patient stated that she is a full code and that we can resuscitate her twice but then stop after that. The patient no longer smokes. She denies any alcohol marijuana or illicit drug use. She stop smoking in 2011. Smoking status: Former smoker Tobacco type: cigarettes Smoking end date: 03/21/11 Alcohol intake: former Substance use: former Substance use type: marijuana, crack/cocaine and methamphetamine Last use: 2011 Living arrangements: with family Occupation/Education: unemployed Gender identity (if verbalized by the patient): Female Spiritual care concerns: No Agree to blood products: Yes Exam Narrative: GENERAL: Ill appearing, and in no acute distress. HEAD: Normocephalic, atraumatic. EYES: PERRLA and EOMI. ENT: Nares clear, no rhinorrhea or epistaxis. Mucous membranes moist. NECK: Supple. CHEST: Clear to auscultation. No respiratory distress. HEART: Regular rate and rhythm. No murmur heard. Normal peripheral pulses. ABDOMEN: Soft, nontender, nondistended, normal active bowel sounds. EXTREMITIES: Normal range of motion. No edema Examination of the right foot has blister on the tip of the toes .no calf tenderness , good cap refill. SKIN: Warm, dry, no rash. NEURO: No focal deficits. Alert and oriented x3. PSYCH: Normal mood and affect. Course Course Emergency Course: Patient still continues to be in lot of pain fentanyl did not help her with pain. Patient states only pain medication which helps is Dilaudid. I did inform her about her lab work and x-ray findings she is agreeable with admission. Discussed with hospitalist accepted the patient agreed with the plan Vital Signs Vital signs: Vital Signs Temperature 36.6 C 05/04/24 10:16 Pulse Rate 110 H 05/04/24 10:16 Respiratory Rate 16 05/04/24 10:16 Blood Pressure 131/75 05/04/24 10:16 Pulse Oximetry 100 05/04/24 10:16 Oxygen Delivery Room Air 05/04/24 10:16 Temperature 36.1 C L 05/04/24 14:46 Pulse Rate 110 H 05/04/24 16:15 Respiratory Rate 20 05/04/24 16:33 Blood Pressure 106/79 05/04/24 16:08 Pulse Oximetry 100 05/04/24 16:33 Oxygen Delivery Room Air 05/04/24 10:16 Medical Decision Making Vital Signs Vital Signs: Vital Signs Temperature 36.6 C 05/04/24 10:16 Pulse Rate 110 H 05/04/24 10:16 Respiratory Rate 16 05/04/24 10:16 Blood Pressure 131/75 05/04/24 10:16 Pulse Oximetry 100 05/04/24 10:16 Oxygen Delivery Room Air 05/04/24 10:16 Temperature 36.1 C L 05/04/24 14:46 Pulse Rate 110 H 05/04/24 16:15 Respiratory Rate 20 05/04/24 16:33 Blood Pressure 106/79 05/04/24 16:08 Pulse Oximetry 100 05/04/24 16:33 Oxygen Delivery Room Air 05/04/24 10:16 Lab Data 05/04/24 14:08 05/04/24 14:08 Labs: Lab Results 05/04/24 Range/Units 14:08 WBC 7.2 (4.5-10.0) K/mm3 RBC 4.15 L (4.2-5.4) M/mm3 Hgb 10.9 L (12.0-15.0) g/dL Hct 34.4 L (37.0-47.0) % MCV 82.9 (80-100) fl MCH 26.3 (26-34) pg MCHC 31.7 L (32-36) g/dl RDW 15.0 H (11.5-14.5) % Plt Count 183 (150-375) k/mm3 MPV 9.6 (7.4-10.4) fl Immature Gran % (Auto) 0.3 (0-0.5) % Neut % (Auto) 69.4 (45.5-73.1) % Lymph % (Auto) 21.0 (18.3-44.2) % Bledsoe % (Auto) 6.3 (2.6-8.5) % Eos % (Auto) 2.6 (0-4.4) % Baso % (Auto) 0.4 (0.2-1.2) % Lymph # (Auto) 1.51 (0.9-3.2) K/mm3 Bledsoe # (Auto) 0.5 (0.1-0.6) K/mm3 Eos # (Auto) 0.2 (0-0.3) K/mm3 Baso # (Auto) 0.0 (0.0-0.1) K/mm3 Abs Immat Gran (auto) 0.02 (0.00-0.031) K/mm3 Absolute Neuts (auto) 5.0 (1.3-6.7) K/mm3 Absolute Nucleated RBC 0.000 (0.0-0.012) K/mm3 Nucleated RBC % 0.0 (0.0-0.2) % PT 17.9 H (11.1-14.7) Seconds INR 1.4 Sodium 141 (137-145) mmol/L Potassium 4.4 (3.4-5.0) mmol/L Chloride 110 H (98-107) mmol/L Carbon Dioxide 20 L (22-30) mmol/L Anion Gap 11 (4-12) mmol/L BUN 32 H (7-17) mg/dL Creatinine 0.91 (0.7-1.0) mg/dL Estim Creat Clear Calc 73 ml/min Estimated GFR > 60 (59 - ) Glucose 148 H (65-110) mg/dL Lactic Acid 1.1 (0.7-2.0) mmol/L Calcium 9.5 (8.4-10.2) mg/dL Total Bilirubin 0.7 (0.2-1.3) mg/dL AST 28 (14-36) U/L ALT 35 (6-35) U/L Alkaline Phosphatase 183 H (38-126) U/L C-Reactive Protein < 0.5 (<1.0) mg/dL Total Protein 8.0 (6.3-8.2) g/dL Albumin 4.2 (3.5-5.1) g/dL Imaging Data Radiologist's impression: ITS Impressions Foot X-Ray 05/04/24 14:01 IMPRESSION: 1. 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 Discharge Plan Discharge Clinical Impression: Diabetic foot infection Patient Disposition: Still a Patient Condition: Stable Patient Language: [place] Prescriptions: No Action trazodone 100 mg tablet 100 mg PO DAILY tobramycin 0.3 % drops 1 drp ophthalmic (eye) DIRECTED Januvia 50 mg tablet 50 mg PO DAILY baclofen 10 mg tablet 10 mg PO TID Qty: 15 0RF omeprazole 40 mg capsule,delayed release(DR/EC) insulin glargine [Basaglar KwikPen U-100 Insulin] 100 unit/mL (3 mL) insulin pen SUBCUT cephalexin 500 mg capsule 500 mg PO Q8H 7 Days Qty: 21 0RF mupirocin 2 % ointment 1 applic topical TID Qty: 15 0RF sertraline 100 mg Tablet 200 mg PO BID simvastatin 20 mg Tablet 20 mg PO DAILY montelukast [Singulair] 10 mg Tablet 10 mg PO DAILY albuterol sulfate 90 mcg/actuation Hfa Aerosol Inhaler 2 puff INHALATION QID PRN (Reason: Dyspnea) loratadine 10 mg Tablet 10 mg PO DAILY Qvar RediHaler 80 mcg/actuation Hfa Aerosol Breath Activated 1 inh INHALATION Q12H gabapentin 300 mg capsule 600 mg PO TID 5 Days Qty: 30 0RF sulfamethoxazole-trimethoprim [Bactrim DS] 800-160 mg tablet 1 tablet PO Q12H 10 Days Qty: 20 0RF cefdinir 300 mg capsule 300 mg PO Q12H 10 Days Qty: 20 0RF sulfamethoxazole-trimethoprim 800-160 mg tablet 1 tablet PO Q12H Qty: 10 0RF ondansetron 4 mg tablet,disintegrating 4 mg PO Q8H PRN (Reason: nausea and vomiting) Qty: 30 0RF Follow-up/Referrals: UNKNOWN,DOCTOR [Primary Care Provider] - Time of Disposition: 16:57
--- NOTE | 2024-05-04 17:08 | P.HP_ITS ---
H&P: HPI History of Present Illness Date/Time: 05/04/24 17:08 Chief Complaint: Blistering to Toes Narrative: 38 y/o F presents here with blistering to her toes with PMH of diabetes type 2, RA, cirrhosis, DVT in the LUE r/t PICC placement in 01/2024, hyperlipidemia, and asthma. The patient presents here from home for further evaluation of pain and blistering to her right toes. She reports onset of skin changes and pain last night. No precipitating trauma. She does have a history of diabetes. She has been out of her home medications for virtually the last week (DM meds, HTN meds, blood thinner, Synthroid etc.). Has follow-up this Tuesday (05/07). Of note, the patient had a recent admission at [facility] [place] [place] for PNA which required intubation from Nov for 6 weeks and was transferred to [facility]. She was discharged from [facility] in Dec. She has since been transitioned to a [facility] for rehab. She was discharged from rehab to home last week. Patient also developed a DVT in her left upper extremity secondary to a PICC line in January 2024. Initial VS at presentation: 97.9? F, HR 110, RR 16, 131/75, and 100% on RA. ED workup showed: No leukocytosis, hemoglobin 10.9 (previously 9.1 on 04/03/2024), INR 1.4, PT 17.9, creatinine 0.91 and GFR >60, glucose 148, lactic 1.1, CRP <0.5. Foot XR, right showed chronic non united avulsion fracture at the lateral base of the right 1st proximal phalanx. Review of Systems Review of Systems: All systems reviewed & are unremarkable except as noted in HPI and below [facility] Past Medical History Medical History Esophageal varices Cirrhosis Fatty liver Asthma Hyperlipidemia Morbid obesity NSAID long-term use Bronchitis Rheumatoid arthritis Surgical History Surgical History History of corneal transplant Left eye, 2014 History of cholecystectomy Hx of appendectomy Family History Family History Father Hypertension Sibling Hypertension Thyroid disorder Sibling Diabetes mellitus Mother Diabetes mellitus Hx of heart artery stent S/P triple vessel bypass Thyroid disorder Social History Social History Social History: The patient lives with her fiance. She has never been . She is not working. She does not receive any disability. She has no children. She does not have anybody does need to be her durable power regulatory attorney. The patient stated that she is a full code and that we can resuscitate her twice but then stop after that. The patient no longer smokes. She denies any alcohol marijuana or illicit drug use. She stop smoking in 2011. Smoking status: Current every day smoker Tobacco type: cigarettes Smoking end date: 03/21/11 Alcohol intake: never Substance use: never Substance use type: marijuana, crack/cocaine and methamphetamine Last use: 2011 Do You Feel Safe in your Home?: Yes Lack of Transportation: No Lack of Food: Never True Current Housing: I Have Housing Concerned About Future Housing: No Difficulty Paying Gas/Electric Bills: No Difficulty Paying for Meds: No Currently Unemployed: No Education: Grade School Difficulty w/ Childcare or Family Care: No Living arrangements: with family Occupation/Education: unemployed Gender identity (if verbalized by the patient): Female Spiritual care concerns: No Agree to blood products: Yes Meds Home Medications and Allergies Home Medications ?Medication ?Instructions ?Recorded ?Confirmed ?Type albuterol sulfate 90 mcg/actuation 2 puff inhalation QID PRN Dyspnea 08/31/19 History aerosol inhaler beclomethasone dipropionate 80 1 inh inhalation Q12H 08/31/19 12/09/21 History mcg/actuation HFA breath activated aerosol (Qvar RediHaler) loratadine 10 mg tablet 10 mg PO DAILY 08/31/19 12/09/21 History montelukast 10 mg tablet 10 mg PO DAILY 08/31/19 12/09/21 History (Singulair) sertraline 100 mg tablet 200 mg PO BID 08/31/19 12/09/21 History simvastatin 20 mg tablet 20 mg PO DAILY 08/31/19 12/09/21 History gabapentin 300 mg capsule 600 mg (2 x 300 mg) PO TID 5 days 10/23/21 12/09/21 Rx #30 caps baclofen 10 mg tablet 10 mg PO TID #15 tabs 12/09/21 Rx sitagliptin phosphate 50 mg tablet 50 mg PO DAILY 12/09/21 12/09/21 History (Januvia) tobramycin 0.3 % eye drops 1 drp ophthalmic (eye) DIRECTED 12/09/21 12/09/21 History trazodone 100 mg tablet 100 mg PO DAILY 12/09/21 12/09/21 History cephalexin 500 mg capsule 500 mg PO Q8H 7 days #21 caps 03/06/22 Rx insulin glargine 100 unit/mL (3 unit subcut 03/06/22 History mL) subcutaneous pen (Basaglar KwikPen U-100 Insulin) mupirocin 2 % topical ointment 1 applic topical TID #15 grams 03/06/22 Rx omeprazole 40 mg capsule,delayed mg 03/06/22 History release sulfamethoxazole 800 1 tablet PO Q12H 10 days #20 tabs 04/02/22 Rx mg-trimethoprim 160 mg tablet (Bactrim DS) cefdinir 300 mg capsule 300 mg PO Q12H 10 days #20 caps 09/18/23 Rx ondansetron 4 mg disintegrating 4 mg PO Q8H PRN nausea and 04/04/24 Rx tablet vomiting #30 tabs sulfamethoxazole 800 1 tablet PO Q12H #10 tabs 04/04/24 Rx mg-trimethoprim 160 mg tablet Allergies Allergy/AdvReac Type Severity Reaction Status Date / Time clindamycin Allergy Unknown Unknown Verified 05/04/24 14:05 latex Allergy Unknown Unknown Verified 05/04/24 14:05 paroxetine Allergy Unknown Unknown Verified 05/04/24 14:05 morphine Allergy Itching Verified 05/04/24 14:05 Vital Signs Vital Signs - 24 hr 05/04/24 10:16 05/04/24 13:13 05/04/24 13:14 Temperature 97.9 F Pulse Rate 110 H 112 H Respiratory Rate 16 15 Blood Pressure 131/75 124/94 H Pulse Oximetry 100 1 L 100 Oxygen Delivery Room Air 05/04/24 13:16 05/04/24 13:31 05/04/24 13:46 Temperature Pulse Rate 109 H 111 H 106 H Respiratory Rate 14 20 12 Blood Pressure 123/98 H 132/94 H 125/96 H Pulse Oximetry 100 100 100 Oxygen Delivery 05/04/24 14:01 05/04/24 14:16 05/04/24 14:31 Temperature Pulse Rate 106 H 107 H 111 H Respiratory Rate 25 H 19 17 Blood Pressure 131/94 H 130/100 H 155/104 H Pulse Oximetry 100 100 100 Oxygen Delivery 05/04/24 14:46 05/04/24 14:47 05/04/24 15:50 Temperature 96.9 F L Pulse Rate 115 H 113 H 109 H Respiratory Rate 23 H 25 H 22 H Blood Pressure 138/98 H Pulse Oximetry 100 100 Oxygen Delivery 05/04/24 16:00 05/04/24 16:08 05/04/24 16:15 Temperature Pulse Rate 118 H 109 H 110 H Respiratory Rate 23 H 18 30 H Blood Pressure 106/79 Pulse Oximetry 100 100 Oxygen Delivery 05/04/24 16:33 Temperature Pulse Rate Respiratory Rate 20 Blood Pressure Pulse Oximetry 100 Oxygen Delivery Exam Const: General: comfortable and no acute distress Other: Female, nontoxic appearance, recumbent in ED stretcher. HENMT: Face/Nose/Sinus: Normal nares present Mouth: Yes moist mucous membranes Eyes: General: appearance normal, both eyes and all related structures Sclera: sclerae normal Pupils: Equal, round and reactive pupils present EOM: EOMs intact bilaterally Resp: Effort & Inspection: normal respiratory effort Auscultation: clear to auscultation bilaterally Cardio: Rate: regular rate Rhythm: regular rhythm Other: S1-S2 present without murmur, rub, ectopy GI: Other: old healing g-tube site to left upper abdomen without discharge or erythema. Otherwise abdomen soft, nondistended, nontender. Normoactive bowel sounds in all quadrants. Skin: General skin exam: normal color and no rashes or lesions noted Wounds: wounds noted Other: blistering to ventral foot and significant blistering to 1st-4th toes, worse at 1st toe, with serosanguineous weeping. Neuro: Speech: normal speech Motor exam (neuro): 5/5 motor strength present throughout Sensory Exam: normal sensation Other: A&O x4 Extrem: General: normal exam except as noted Psych: Mental Status: mental status grossly normal Affect: normal affect Other: Good insight and judgment, pleasant H&P: Results Labs Labs: Short CBC 05/04/24 Range/Units 14:08 WBC 7.2 (4.5-10.0) K/mm3 Hgb 10.9 L (12.0-15.0) g/dL Hct 34.4 L (37.0-47.0) % Plt Count 183 (150-375) k/mm3 BMP 05/04/24 14:08 Sodium 141 Potassium 4.4 Chloride 110 H Carbon Dioxide 20 L BUN 32 H Creatinine 0.91 Glucose 148 H Calcium 9.5 Liver Function 05/04/24 Range/Units 14:08 Total Bilirubin 0.7 (0.2-1.3) mg/dL AST 28 (14-36) U/L ALT 35 (6-35) U/L Alkaline Phosphatase 183 H (38-126) U/L Albumin 4.2 (3.5-5.1) g/dL Assessment and Plan Assessment and plan (1) Diabetic foot infection: Code(s): E11.628 - Type 2 diabetes mellitus with other skin complications; L08.9 - Local infection of the skin and subcutaneous tissue, unspecified Status: Acute Assessment and Plan: - Foot XR: 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 - started on Cefepime, Flagyl, and Vancomycin on 05/04 - wound RN consulted - wound culture, if obtainable - analgesics and antipyretics p.r.n. 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: with care home use Diabetes mellitus type: type 2 Qualified Code(s): E11.621 - Type 2 diabetes mellitus with foot ulcer; L97.509 - Non- pressure chronic ulcer of other part of unspecified foot with unspecified sever ity; Z79.4 - intermediate (current) use of insulin Code(s): E11.9 - Type 2 diabetes mellitus without complications Status: Chronic Assessment and Plan: - hypoglycemia protocol - POC blood glucose ACHS - correct regimen ordered - low dose TIDWM, based off BMI - A1C 8.9% in 2020, update Plan Diet: Diabetic GI Prophylaxis: None indicated DVT Prophylaxis: SCDs Lines: Peripheral Code Status: Full code Quality VTE Prophylaxis VTE prophylaxis: pharmacologic ordered Hospitalist [facility] Advance Care Plan I have confirmed that the patient's Advanced Care Plan is present, code status is documented, or surrogate decision maker is listed in patient medical record.: Yes Medication Reconciliation I have utilized all available resources to obtain, update and review the patients current medications (includes all prescriptions, OTC, herbals, cannabis, and nutritional supplements).: Yes
[2024-05-04 17:14] LABS: Glucose Point of Care 114 mg/dl (65-105)
--- OUTSIDE RECORDS SUMMARY | 2024-05-04 18:49 | XMS_ITS | Clinical Summary ---
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 No [facility] Problem Noted Date Diagnosed Date Acute blood loss anemia 02/02/2024 Assessment & Plan (02/12/2024 12:56 PM SUPERVISOR TYPESETTING): Present on admit, f/u hemoglobin was 6.6 [...] 01/27/2024 Assessment & Plan (02/12/2024 12:58 PM SUPERVISOR TYPESETTING): INR 1.39 on admission. History of Doan cirrhosis. Other contibutors may be DOAC vs nutritional. Treated with vitamin K PO 01/26-01/28 F/u INR 1.51 in setting of cirrhosis. Hx chronic LUE DVT. Lovenox held due to anemia. No recent spontaneous bleeding noted. Monitor coags PRN Cirrhosis 01/27/2024 Overview (02/08/2024): History of Doan cirrhosis as per patient. Patient follows with [facility] liver doctor, last seen couple of years ago. -CT11/5: changes of cirrhosis with stigmata of portal hypertension including splenomegaly, recanalized periumbilical vein, small volume ascites, and mild diffuse anasarca. -Liver enzyme elevation could be from DOAN cirrhosis, ongoing antibiotics. -Hepatitis panel negative Assessment & Plan (02/12/2024 12:46 PM SUPERVISOR TYPESETTING): History of Doan cirrhosis as per patient. Patient follows with [facility] liver doctor, last seen couple of [...] 01/26/2024 Assessment & Plan (02/12/2024 12:57 PM SUPERVISOR TYPESETTING): Known chronic DVT in left upper extremity distal brachial vein noted 12/2023, home Lovenox held due to recurring anemia requiring blood transfusions and did not tolerate therapeutic AC. Received recent Vit K supplementation this admit. Acute osteomyelitis of sacrum (CMS/HCC) 01/26/20 Assessment & Plan (02/10/2024 1:17 PM SUPERVISOR TYPESETTING): Initial encounter, likely has been evolving since [...] needed. Assessment & Plan (02/12/2024 12:59 PM SUPERVISOR TYPESETTING): -Prior history: General surgery consulted 01/09 at [...] NGTD. 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 Resolved. Assessment & Plan (02/10/2024 1:14 PM SUPERVISOR TYPESETTING): 37 y.o. female with PMH including cirrhosis of the liver, DM2, R foot OM with partial amputation who was transferred to [facility] 01/25 for pyelonephritis and renal abscess. [...] with wound vac placement and transferred to [facility]. 01/25 admission to [facility]. Repeat CT A/P shows stable/slight decrease [...] 01/03/2024 Assessment & Plan (02/12/2024 12:45 PM SUPERVISOR TYPESETTING): Initially admitted to OSH with prolonged hospitalization s/p G-tube on 12/26/2023 for TFs related to prior dysphagia. 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 with [facility] on 01/10 ([employer]TENA[employer]), Acute dysphagia mostly resolved, presents with mild [...] tube. -Patient sees hepatology for cirrhosis at [facility]. F/u as directed. Severe malnutrition 01/01/2024 Liver transplant failure (CMS/HCC) 12/30/2023 Other pneumonia, unspecified organism 12/30/2023 Critical illness myopathy 12/25/2023 Elevated liver enzymes 12/21/2023 Abnormal EKG 12/20/2023 Esophageal varices with blee ding in diseases classified elsewhere 12/11/2023 Acute respiratory failure with hypoxia ([facility]) 12/10/2023 Acute upper GI hemorrhage 12/10/2023 Aspiration pneumonia of both lower lobes due to gastric secretions 12/10/2023 Bacteremia 12/10/2023 Elevated troponin 12/10/2023 High anion gap metabolic acidosis 12/10/2023 Osteomyelitis of left lower extremity ([facility]) 12/10/2023 Other specified abnormal findings of blood chemi stry 12/10/2023 Pneumonitis due to inhalation of food and vomit ([facility]) 12/10/2023 Melena 12/09/2023 Closed fracture of proximal end of right humerus with routine healing 12/05/2023 NSTEMI (non-ST elevated myocardial infarction) ( [facility]) 12/05/2023 Diabetic foot infection ([facility]) 12/05/2023 Acute hematogenous osteomyelitis of left foot Traumatic closed displaced f racture of surgical neck of right humerus, with routine healing, subsequent encounter 12/01/2023 Assessment & Plan (02/12/2024 12:42 PM SUPERVISOR TYPESETTING): Hx of Right shoulder fx in 11/2023, [...] 12/01/2023 Assessment & Plan (02/10/2024 12:56 PM SUPERVISOR TYPESETTING): -Pt with ICU admission 12/08 with enterobacter bacteremia and UTI. Represented to OSH 01/[address] c/f pyelonephritis and multiple renal abscesses to L kidney. She was started on Meropenem. UA later grew ESBL e coli and enterobacter aerogenes. Transferred to [facility] for IR evaluation - BCx 01/08 [...] 09/13/2020 Assessment & Plan (02/12/2024 12:44 PM SUPERVISOR TYPESETTING): Continue OSH insulin regimen: Lantus 8 Qpm + SSI, carb consistent diet. Continue to monitor serial accuchecks A1c previously 10.6, (poor OP control) and not checked this admit. Improved glucose control this admit. Anticipate close OP monitoring and follow up for goal care with underlying cirrhosis. NELIDA (acute kidney injury) 09/13/2020 Assessment & Plan (02/12/2024 12:57 PM SUPERVISOR TYPESETTING): Associated with hyperkalemia. Likely from decreased p.o. 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 Uric acid normal. ESR CRP elevated Examination benign, would hold off on MRI for now Diarrhea 01/27/2024 02/05/2024 Assessment & Plan (01/27/2024 4:24 PM SUPERVISOR TYPESETTING): Questionable diarrhea on admission to OSH. Patient reports normal bowel movements. 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 Received 1 unit earlier in OSH admission. Hgb 8-9. - Hgb >7, blood consent in chart. Encounters Date Type Department Care Team Description 04/20/2024 10:00 AM SUPERVISOR TYPESETTING Office Visit [facility] Radiology, Interventional Radiology [facility] [address] [facility] [address] [phone] Sophie Herman PA Dysphagia, oropharyngeal (Primary Dx); Gastrostomy tube in place (HCC) 04/19/2024 Telephone [facility] Radiology, Interventional Radiology [address] [facility] [address] [phone] Iker Neal 04/19/2024 Telephone [facility] Radiology, Interventional Radiology [address] [facility] [address] [phone] Luma Bach Scheduling Appointments 04/13/2024 Telephone [facility] Radiology, Interventional Radiology [address] [facility] [address] [phone] Jessica Beltran, RN Appointment 03/26/2024 Telephone [facility] [address] [place] [address] 4th Floor [address] [place] [address] Yuni Balderrama 02/27/2024 9:50 AM SUPERVISOR TYPESETTING Office [facility] [address] [place] [address] Floor [address] [place] [phone] Traumatic closed displaced fracture of surgical neck of right humerus, with routine healing, subsequent encounter (Primary Dx) 02/23/2024 Telephone [facility] Radiology [address] [phone] Naila Sheehan, RN 02/14/2024 Telephone [facility] Radiology [address] [place] [phone] Loni Aragon, RN 02/14/2024 Orders Only [facility] Radiology [address] [place] [phone] Loni Aragon, RN 02/13/2024 Treatment [facility] PATHOLOGY [address] [address] Andie Byrne MD 02/07/2024 Orders Only [address] [phone] Jorge Carolina MD PhD 02/06/2024 Orders Only [facility] Neuro Interventional Radiology [address] [place] [phone] Shelley Bal, KILLIAN 01/26/2024 9:52 PM SUPERVISOR TYPESETTING - 02/13/2024 1:30 PM SUPERVISOR TYPESETTING Hospital Encounter [address] [place] [address] Néstor Blevins MD Markova, MD Roger Rubalcava, [...] uit: Not Asked; Counseling Given: Not Answered [facility] Utilities Answer Date Recorded In the past 12 months has th [employer], gas, oil, or water [employer] threatened to shut off services in your [...] often do you attend chur ch or catholic services? 1 to 4 times per year 01/29/2024 Do you belong to any clubs o r organizations such as sikhism groups, unions, fraternal or athletic groups, or [...] any time in the past 12 [place], were you homeless or living in a correction (including now)? No 01/29/2024 Personal Safety Answer Date Recorded Have you ever been in or are you currently in a harmful physical or emotional relationship or is someone making you feel afraid or unsafe? Denies 02/10/2024 Comments No Sex and Gender Information Value Date Recorded Sex Assigned at Not on file Legal Sex Female 5:35 AM SUPERVISOR TYPESETTING Gender Identity Not on file Sexual Orientation Not on file Obstetrics History Last Filed Vital Signs Vital Sign Reading Time Taken Comments Blood Pressure 116/80 02/13/2024 10:42 AM SUPERVISOR TYPESETTING Pulse 106 02/13/2024 10:42 AM SUPERVISOR TYPESETTING Temperature 37 C (98.6 F) 02/13/2024 5:38 AM SUPERVISOR TYPESETTING Respiratory Rate 18 02/13/2024 5:38 AM SUPERVISOR TYPESETTING Oxygen Saturation 95% 02/13/2024 10:42 AM SUPERVISOR TYPESETTING Inhaled Oxygen Concentration - - Weight 72.6 kg (160 lb) 04/20/2024 10:04 AM SUPERVISOR TYPESETTING Height 170.2 cm (5' 7 ) 04/20/2024 10:04 AM SUPERVISOR TYPESETTING Body Mass Index 25.06 04/20/2024 10:04 AM SUPERVISOR TYPESETTING Plan of Treatment Health Maintenance Due Date [...] history exists Medical Devices Implanted Type Area Physical Security Engineer Device Identifier Shelf Expiration Date Model / Serial / Lot Musculoskeletal Transplant [id number] Mm Allograft Frozen Graft Bone Fibula Shaft [id number] - [id number] - [id number] Implanted:Qty: 1 on 01/31/2024 by Monika Gilbert MD at [facility] Bone Right: Humerus Musculoskeletal Transplant [id number] 07/06/2027 [id number] / [id number] / Synthes Lcp Combi Philos 012f12x2.5mm 5 Hole Shaft Lock Compression 241.903 - [id number] Implanted:Qty: 1 on 01/31/2024 by Monika Gilbert MD at [facility] Plate Right: Humerus Synthes 241.903 / / Synthes 3.5mm 2.9mm 44mm Self Tap Lock Stardrive Conical Head T15 Full 212.134 - [id number] Implanted:Qty: 1 on 01/31/2024 by Monika Gilbert MD at [facility] Screw Right: Humerus Synthes 212.134 / / Synthes 3.5mm 6mm 60mm 2.5mm Self Tap Small Hexagonal Socket Low Profile 204.860 - [id number] Implanted:Qty: 1 on 01/31/2024 by Monika Gilbert MD at [facility] Screw Right: Humerus Synthes 204.860 / / Synthes 3.5mm 6mm 32mm 2.5mm Self Tap Small Hexagonal Socket Low Profile 204.832 - [id number] Implanted:Qty: 2 on 01/31/2024 by Monika Gilbert MD at [facility] Screw Right: Humerus Synthes 204.832 / / Synthes 3.5mm 54mm Self Tap Lock Stardrive T15 Full Thread Screw Bone 02.212.054 - [id number] Implanted:Qty: 4 on 01/31/2024 by Monika Gilbert MD at [facility] Screw Right: Humerus Synthes 02.212.0 54 / / Synthes 3.5mm 2.9mm 32mm Self Tap Lock Stardrive Conical Head T15 Full 212.112 - [id number] Implanted:Qty: 2 on 01/31/2024 by Monika Gilbert MD at [facility] Screw Right: Humerus Synthes 212.112 / / Synthes 3.5mm 2.9mm 46mm Self Tap Lock Stardrive Conical Head T15 Full 212.136 - [id number] Implanted:Qty: 1 on 01/31/2024 by Monika Gilbert MD at [facility] Screw Right: Humerus Synthes I 212.136 / / Synthes 3.5mm 2.9mm 42mm Self Tap Lock Stardrive Conical Head Full Thread 212.118 - [id number] Implanted:Qty: 1 on 01/31/2024 by Monika Gilbert MD at [facility] Screw Right: Humerus Synthes I 212.118 / / Synthes 3.5mm 2.9mm 48mm Self Tap Lock Fix Angle Low Profile Pelvis Full 212.120 - [id number] Implanted:Qty: 1 on 01/31/2024 by Monika Gilbert MD at [facility] Screw Right: Humerus Synthes I 212.120 / / Synthes 3.5mm 2.9mm 55mm Self Tap Lock Stardrive Conical Head Pelvis Full 212.123 - [id number] Implanted:Qty: 1 on 01/31/2024 by Monika Gilbert MD at [facility] Screw Right: Humerus Synthes 212.123 / / Explanted Type Area Physical Security Engineer Device Identifier Shelf Expiration Date Model / Serial / Lot Synthes 3.5mm 6mm 30mm 2.5mm Self Tap Small Hexagonal Socket Low Profile 204.830 - [id number] Explanted:Qty: 1 on 01/31/2024 by Monika Gilbert MD at [facility] Screw Right: Humerus Synthes 204.830 / / Procedures Procedure Name Priority Date/Time Associated Diagnosis Comments POCT GLUCOSE DEVICE Routine 02/13/2024 11:47 AM SUPERVISOR TYPESETTING POCT GLUCOSE DEVICE Routine 02/13/2024 7 :56 AM SUPERVISOR TYPESETTING EGFR Routine 02/12/2024 11:57 PM SUPERVISOR TYPESETTING DIFFERENTIAL AUTO Routine 02/12/2024 11:57 PM SUPERVISOR TYPESETTING HEPATIC FUNCTION PANEL Routine 11:57 PM SUPERVISOR TYPESETTING PHOSPHORUS Routine 02/12/2024 11:57 PM SUPERVISOR TYPESETTING MAGNESIUM Routine 02/12/2024 11:57 PM SUPERVISOR TYPESETTING BASIC METABOLIC PANEL Routine 02/12/2024 11:57 PM SUPERVISOR TYPESETTING CBC WITH AUTO DIFFERENTIAL Routine 02/12/2024 11:57 PM SUPERVISOR TYPESETTING POCT GLUCOSE DEVICE Routine 02/12/2024 8 :27 PM SUPERVISOR TYPESETTING POCT GLUCOSE DEVICE Routine 02/12/2024 5 :13 PM SUPERVISOR TYPESETTING POCT GLUCOSE DEVICE Routine 02/12/2024 12:27 PM SUPERVISOR TYPESETTING POCT GLUCOSE DEVICE Routine 02/12/2024 9 :21 AM SUPERVISOR TYPESETTING POCT GLUCOSE DEVICE Routine 02/12/2024 8 :02 AM SUPERVISOR TYPESETTING EGFR Routine 02/11/2024 11:54 PM SUPERVISOR TYPESETTING DIFFERENTIAL AUTO Routine 02/11/2024 11:54 PM SUPERVISOR TYPESETTING HEPATIC FUNCTION PANEL Routine 11:54 PM SUPERVISOR TYPESETTING PHOSPHORUS Routine 02/11/2024 11:54 PM SUPERVISOR TYPESETTING MAGNESIUM Routine 02/11/2024 11:54 PM SUPERVISOR TYPESETTING BASIC METABOLIC PANEL Routine 02/11/2024 11:54 PM SUPERVISOR TYPESETTING CBC WITH AUTO DIFFERENTIAL Routine 02/11/2024 11:54 PM SUPERVISOR TYPESETTING POCT GLUCOSE DEVICE Routine 02/11/2024 8 :20 PM SUPERVISOR TYPESETTING POCT GLUCOSE DEVICE Routine 02/11/2024 4 :42 PM SUPERVISOR TYPESETTING POCT GLUCOSE DEVICE Routine 02/11/2024 7 :33 AM SUPERVISOR TYPESETTING B RYDER C3 Routine 02/11/2024 12:30 AM SUPERVISOR TYPESETTING B RYDER IGG Routine 02/11/2024 12:30 AM SUPERVISOR TYPESETTING ANTIBODY IDENTIFICATION Routine 02/10/20 10:02 PM SUPERVISOR TYPESETTING TRANSFUSION REACTION EVALUATION Timed 02/10/2024 8:51 PM SUPERVISOR TYPESETTING DIRECT ANTIGLOBULIN TEST Timed 02/10/2024 8:51 PM SUPERVISOR TYPESETTING EGFR Routine 02/10/2024 8:51 PM SUPERVISOR TYPESETTING DIFFERENTIAL AUTO Routine 02/10/2024 8:5 1 PM SUPERVISOR TYPESETTING TYPE AND SCREEN Timed 02/10/2024 8:51 PM SUPERVISOR TYPESETTING HEPATIC FUNCTION PANEL Routine 8:51 PM SUPERVISOR TYPESETTING PHOSPHORUS Routine 02/10/2024 8:51 PM SUPERVISOR TYPESETTING MAGNESIUM Routine 02/10/2024 8:51 PM SUPERVISOR TYPESETTING BASIC METABOLIC PANEL Routine 02/10/2024 8:51 PM SUPERVISOR TYPESETTING CBC WITH AUTO DIFFERENTIAL Routine 02/10/2024 8:51 PM SUPERVISOR TYPESETTING POCT GLUCOSE DEVICE Routine 02/10/2024 8 :28 PM SUPERVISOR TYPESETTING POCT GLUCOSE DEVICE Routine 02/10/2024 5 :13 PM SUPERVISOR TYPESETTING CENTRAL LINE PLACEMENT > 5 YEARS IP Routine 02/10/2024 3:32 PM SUPERVISOR TYPESETTING POCT GLUCOSE DEVICE Routine 02/10/2024 12:31 PM SUPERVISOR TYPESETTING POCT GLUCOSE DEVICE Routine 02/10/2024 8 :15 AM SUPERVISOR TYPESETTING EGFR Routine 02/09/2024 9:52 PM SUPERVISOR TYPESETTING DIFFERENTIAL AUTO Routine 02/09/2024 9:5 2 PM SUPERVISOR TYPESETTING VANCOMYCIN LEVEL RANDOM Routine 02/09/20 9:52 PM SUPERVISOR TYPESETTING HEPATIC FUNCTION PANEL Routine 9:52 PM SUPERVISOR TYPESETTING PHOSPHORUS Routine 02/09/2024 9:52 PM SUPERVISOR TYPESETTING MAGNESIUM Routine 02/09/2024 9:52 PM SUPERVISOR TYPESETTING BASIC METABOLIC PANEL Routine 02/09/2024 9:52 PM SUPERVISOR TYPESETTING CBC WITH AUTO DIFFERENTIAL Routine 02/09/2024 9:52 PM SUPERVISOR TYPESETTING POCT GLUCOSE DEVICE Routine 02/09/2024 8 :32 PM SUPERVISOR TYPESETTING POCT GLUCOSE DEVICE Routine 02/09/2024 5 :55 PM SUPERVISOR TYPESETTING URINALYSIS, MICROSCOPIC ONLY STAT 02/09/2024 5:09 PM SUPERVISOR TYPESETTING URINE CULTURE STAT 02/09/2024 5:09 PM SUPERVISOR TYPESETTING URINALYSIS AND REFLEX TO MICROSCOPIC AND CULTURE STAT 02/09/2024 5:09 PM SUPERVISOR TYPESETTING XR ABDOMEN AP 1 VIEW ED Urgent/IP Urgent 02/09/2024 4:09 PM SUPERVISOR TYPESETTING POCT GLUCOSE DEVICE Routine 02/09/2024 12:51 PM SUPERVISOR TYPESETTING POCT GLUCOSE DEVICE Routine 02/09/2024 7 :40 AM SUPERVISOR TYPESETTING EGFR Timed 02/09/2024 12:07 AM SUPERVISOR TYPESETTING CREATININE Timed 02/09/2024 12:07 AM SUPERVISOR TYPESETTING VANCOMYCIN LEVEL RANDOM Routine 02/08/20 24 9:50 PM SUPERVISOR TYPESETTING EGFR Routine 02/08/2024 9:50 PM SUPERVISOR TYPESETTING DIFFERENTIAL AUTO Routine 02/08/2024 9:5 0 PM SUPERVISOR TYPESETTING PROTIME-INR Routine 02/08/2024 9:50 PM SUPERVISOR TYPESETTING HEPATIC FUNCTION PANEL Routine 9:50 PM SUPERVISOR TYPESETTING PHOSPHORUS Routine 02/08/2024 9:50 PM SUPERVISOR TYPESETTING MAGNESIUM Routine 02/08/2024 9:50 PM SUPERVISOR TYPESETTING BASIC METABOLIC PANEL Routine 02/08/2024 9:50 PM SUPERVISOR TYPESETTING CBC WITH AUTO DIFFERENTIAL Routine 02/08/2024 9:50 PM SUPERVISOR TYPESETTING POCT GLUCOSE DEVICE Routine 02/08/2024 8 :31 PM SUPERVISOR TYPESETTING POCT GLUCOSE DEVICE Routine 02/08/2024 5 :56 PM SUPERVISOR TYPESETTING VANCOMYCIN LEVEL TROUGH Timed 02/08/20 1:55 PM SUPERVISOR TYPESETTING POCT GLUCOSE DEVICE Routine 02/08/2024 11:40 AM SUPERVISOR TYPESETTING POCT GLUCOSE DEVICE Routine 02/08/2024 8 :20 AM SUPERVISOR TYPESETTING EGFR Routine 02/07/2024 9:30 PM SUPERVISOR TYPESETTING DIFFERENTIAL AUTO Routine 02/07/2024 9:3 0 PM SUPERVISOR TYPESETTING HEPATIC FUNCTION PANEL Routine 9:30 PM SUPERVISOR TYPESETTING PHOSPHORUS Routine 02/07/2024 9:30 PM SUPERVISOR TYPESETTING MAGNESIUM Routine 02/07/2024 9:30 PM SUPERVISOR TYPESETTING BASIC METABOLIC PANEL Routine 02/07/2024 9:30 PM SUPERVISOR TYPESETTING CBC WITH AUTO DIFFERENTIAL Routine 02/07/2024 9:30 PM SUPERVISOR TYPESETTING POCT GLUCOSE DEVICE Routine 02/07/2024 8 :20 PM SUPERVISOR TYPESETTING POCT GLUCOSE DEVICE Routine 02/07/2024 4 :41 PM SUPERVISOR TYPESETTING POCT GLUCOSE DEVICE Routine 02/07/2024 12:22 PM SUPERVISOR TYPESETTING MYCOLOGY (FUNGAL) CULTURE Routine 02/07/2024 11:30 AM SUPERVISOR TYPESETTING TISSUE AEROBIC AND ANAEROBIC CULTURE AND GRAM STAIN Routine 02/07/2024 11:30 AM SUPERVISOR TYPESETTING MYCOBACTERIOLOGY AFB CULTURE AND ACID-FAST STAIN Routine 02/07/2024 11:30 AM SUPERVISOR TYPESETTING MYCOLOGY (FUNGAL) CULTURE AND STAIN Routine 02/07/2024 11:30 AM SUPERVISOR TYPESETTING MYCOBACTERIOLOGY AFB CULTURE AND ACID-FAST STAIN Routine 02/07/2024 11:30 AM SUPERVISOR TYPESETTING AEROBIC AND ANAEROBIC CULTURE AND GRAM STAIN Routine 02/07/2024 11:30 AM SUPERVISOR TYPESETTING BIOPSY DEEP BONE IP Routine 02/07/2024 11:29 AM SUPERVISOR TYPESETTING SURGICAL PATHOLOGY Routine 02/07/2024 11:15 AM SUPERVISOR TYPESETTING POCT GLUCOSE DEVICE Routine 02/07/2024 8 :36 AM SUPERVISOR TYPESETTING POCT GLUCOSE DEVICE Routine 02/07/2024 7 :46 AM SUPERVISOR TYPESETTING VANCOMYCIN LEVEL TROUGH Timed 02/07/20 2:37 AM SUPERVISOR TYPESETTING EGFR Routine 02/06/2024 9:36 PM SUPERVISOR TYPESETTING DIFFERENTIAL AUTO Routine 02/06/2024 9:3 6 PM SUPERVISOR TYPESETTING HEPATIC FUNCTION PANEL Routine 4 9:36 PM SUPERVISOR TYPESETTING PHOSPHORUS Routine 02/06/2024 9:36 PM SUPERVISOR TYPESETTING MAGNESIUM Routine 02/06/2024 9:36 PM SUPERVISOR TYPESETTING BASIC METABOLIC PANEL Routine 02/06/2024 9:36 PM SUPERVISOR TYPESETTING CBC WITH AUTO DIFFERENTIAL Routine 02/06/2024 9:36 PM SUPERVISOR TYPESETTING POCT GLUCOSE DEVICE Routine 02/06/2024 9 :32 PM SUPERVISOR TYPESETTING POCT GLUCOSE DEVICE Routine 02/06/2024 5 :33 PM SUPERVISOR TYPESETTING POCT GLUCOSE DEVICE Routine 02/06/2024 11:52 AM SUPERVISOR TYPESETTING POCT GLUCOSE DEVICE Routine 02/06/2024 8 :16 AM SUPERVISOR TYPESETTING TROPONIN I HIGH-SENSITIVITY SERIES (BASELINE, 2HR, 4HR, 6HR) Timed 02/06/2024 6:53 AM SUPERVISOR TYPESETTING EGFR Routine 02/05/2024 10:32 PM SUPERVISOR TYPESETTING DIFFERENTIAL AUTO Routine 02/05/2024 10:32 PM SUPERVISOR TYPESETTING HEPATIC FUNCTION PANEL Routine 10:32 PM SUPERVISOR TYPESETTING PHOSPHORUS Routine 02/05/2024 10:32 PM SUPERVISOR TYPESETTING MAGNESIUM Routine 02/05/2024 10:32 PM SUPERVISOR TYPESETTING BASIC METABOLIC PANEL Routine 02/05/2024 10:32 PM SUPERVISOR TYPESETTING CBC WITH AUTO DIFFERENTIAL Routine 02/05/2024 10:32 PM SUPERVISOR TYPESETTING POCT GLUCOSE DEVICE Routine 02/05/2024 9 :13 PM SUPERVISOR TYPESETTING POCT GLUCOSE DEVICE Routine 02/05/2024 5 :38 PM SUPERVISOR TYPESETTING BLOOD CULTURE Routine 02/05/2024 3:25 PM SUPERVISOR TYPESETTING BLOOD CULTURE Routine 02/05/2024 3:25 PM SUPERVISOR TYPESETTING POCT GLUCOSE DEVICE Routine 02/05/2024 2 :10 PM SUPERVISOR TYPESETTING POCT GLUCOSE DEVICE Routine 02/05/2024 9 :18 AM SUPERVISOR TYPESETTING WOUND CARE Routine 02/05/2024 8:16 AM SUPERVISOR TYPESETTING Pressure injury of sacral region, stage 4 (HCC) POTASSIUM, WHOLE BLOOD Timed 8:08 AM SUPERVISOR TYPESETTING POTASSIUM LEVEL Timed 02/05/2024 7:45 AM SUPERVISOR TYPESETTING POCT GLUCOSE DEVICE Routine 02/05/2024 6 :00 AM SUPERVISOR TYPESETTING POCT GLUCOSE DEVICE Routine 02/05/2024 5:04 AM SUPERVISOR TYPESETTING POCT GLUCOSE DEVICE Routine 02/05/2024 4 :11 AM SUPERVISOR TYPESETTING ECG 12-LEAD STAT 02/05/2024 3:22 AM SUPERVISOR TYPESETTING EGFR Routine 02/04/2024 9:38 PM SUPERVISOR TYPESETTING DIFFERENTIAL AUTO Routine 02/04/2024 9:3 8 PM SUPERVISOR TYPESETTING HEPATIC FUNCTION PANEL Routine 9:38 PM SUPERVISOR TYPESETTING PHOSPHORUS Routine 02/04/2024 9:38 PM SUPERVISOR TYPESETTING MAGNESIUM Routine 02/04/2024 9:38 PM SUPERVISOR TYPESETTING BASIC METABOLIC PANEL Routine 02/04/2024 9:38 PM SUPERVISOR TYPESETTING CBC WITH AUTO DIFFERENTIAL Routine 02/04/2024 9:38 PM SUPERVISOR TYPESETTING POCT GLUCOSE DEVICE Routine 02/04/2024 9 :04 PM SUPERVISOR TYPESETTING POCT GLUCOSE DEVICE Routine 02/04/2024 5:12 PM SUPERVISOR TYPESETTING POCT GLUCOSE DEVICE Routine 02/04/2024 11:56 AM SUPERVISOR TYPESETTING HEMOGLOBIN AND HEMATOCRIT Timed 02/04/2024 11:16 AM SUPERVISOR TYPESETTING MRI SACRUM COCCYX WO CONTRAST ED Urgent/IP Urgent 02/04/2024 10:53 AM SUPERVISOR TYPESETTING POCT GLUCOSE DEVICE Routine 02/04/2024 7 :44 AM SUPERVISOR TYPESETTING TRANSFUSE RED BLOOD CELLS Timed 02/04/2024 5:50 AM SUPERVISOR TYPESETTING TYPE AND SCREEN Timed 02/04/2024 1:27 AM SUPERVISOR TYPESETTING PREPARE RBC Timed 02/04/2024 12:43 AM SUPERVISOR TYPESETTING EGFR Routine 02/03/2024 9:45 PM SUPERVISOR TYPESETTING DIFFERENTIAL AUTO Routine 02/03/2024 9:4 5 PM SUPERVISOR TYPESETTING HEPATIC FUNCTION PANEL Routine 9:45 PM SUPERVISOR TYPESETTING PHOSPHORUS Routine 02/03/2024 9:45 PM SUPERVISOR TYPESETTING MAGNESIUM Routine 02/03/2024 9:45 PM [employer]PERVISOR TYP[employer]TING BASIC METABOLIC PANEL Routine 02/03/2024 9:45 PM [employer]VIS[employer] T[employer] CBC WITH AUTO DIFFERENTIAL Routine 02/03/2024 9:45 PM SUPERVISOR TYPESETTING POCT GLUCOSE DEVICE Routine 02/03/2024 9 :39 PM SUPERVISOR TYPESETTING POCT GLUCOSE DEVICE Routine 02/03/2024 5 :47 PM SUPERVISOR TYPESETTING POCT GLUCOSE DEVICE Routine 02/03/2024 2 :[address] ABDOMEN PELVIS W CONTRAST IP Routine 02/03/2024 10:03 AM SUPERVISOR TYPESETTING POCT GLUCOSE DEVICE Routine 02/03/2024 9 :24 AM SUPERVISOR TYPESETTING EGFR Routine 02/02/2024 10:40 PM SUPERVISOR TYPESETTING DIFFERENTIAL AUTO Routine 02/02/2024 10:40 PM SUPERVISOR TYPESETTING HEPATIC FUNCTION PANEL Routine 10:40 PM SUPERVISOR TYPESETTING PHOSPHORUS Routine 02/02/2024 10:40 PM SUPERVISOR TYPESETTING MAGNESIUM Routine 02/02/2024 10:40 PM SUPERVISOR TYPESETTING BASIC METABOLIC PANEL Routine 02/02/2024 10:40 PM SUPERVISOR TYPESETTING CBC WITH AUTO DIFFERENTIAL Routine 02/02/2024 10:40 PM SUPERVISOR TYPESETTING POCT GLUCOSE DEVICE Routine 02/02/2024 8 :25 PM SUPERVISOR TYPESETTING HEMOGLOBIN AND HEMATOCRIT Timed 02/02/2024 5:56 PM SUPERVISOR TYPESETTING POCT GLUCOSE DEVICE Routine 02/02/2024 4 :53 PM SUPERVISOR TYPESETTING POCT GLUCOSE DEVICE Routine 02/02/2024 12:56 PM SUPERVISOR TYPESETTING TRANSFUSE RED BLOOD CELLS Timed 02/02/2024 11:07 AM SUPERVISOR TYPESETTING POCT GLUCOSE DEVICE Routine 02/02/2024 9 :48 AM SUPERVISOR TYPESETTING HEPATITIS PANEL, ACUTE Routine 9:00 PM SUPERVISOR TYPESETTING LIPID PANEL Routine 01/26/2024 11:33 PM SUPERVISOR TYPESETTING HEMOGLOBIN A1C Routine 12/01/2023 6:48 PM CDT from Last 3 Months or Most Recently Relevant to Health Maintenance Results * POCT glucose (02/13/2024 11:47 AM SUPERVISOR TYPESETTING) Glucose, POC 122 70 - 199 mg/dL Blood 02/13/2024 11:4 7 AM SUPERVISOR TYPESETTING 02/13/2024 11:47 AM SUPERVISOR TYPESETTING Kassidy Pinzon MD LAB POCT ORDERABLES - DEVIC E Final Result Performing Organization Address City/[facility]/ZIP Co de Phone Number [facility] Department of [employer] [place] [address] * POCT glucose (02/13/2024 7:56 AM SUPERVISOR TYPESETTING) Glucose, POC 95 70 - 199 mg/dL Blood 02/13/2024 7:56 AM SUPERVISOR TYPESETTING 02/13/2024 7:56 AM SUPERVISOR TYPESETTING Kassidy Pinzon MD LAB POCT ORDERABLES - DEVIC E Final Result Performing Organization Address City/[facility] Co de Phone Number [facility] Department of [employer] [place] [address] * eGFR (02/12/2024 11:57 PM SUPERVISOR TYPESETTING) eGFR 79 >=60 mL/min/1. 73 m2 Comment: [...] reviewed 2021. Blood 02/12/2024 11:5 7 PM SUPERVISOR TYPESETTING 02/13/2024 12:29 AM SUPERVISOR TYPESETTING us Carin Granados MD LAB BLOOD ORDERABLES Tete palomino Result [facility] Department [place] [address] * Differential, auto (02/12/2024 11:57 PM SUPERVISOR TYPESETTING) Neutrophil abs 4.2 1.5 - 6.5 K/cumm Imm gran abs 0.0 0.0 - 0.1 K/cumm [facility] Lymphocyte abs 1.2 0.8 - 3.3 K/cumm [facility] Monocyte abs 0.6 0.2 - 0.8 K/cumm [facility] Eosinophil abs 0.2 0.0 - 0.5 K/cumm [facility] Basophil abs 0.0 0.0 - 0.1 K/cumm [facility] Neutrophil pct 67.3 % [facility] Comment: Interpretive Data Percent cell count reference ranges are not reported, since discordance with absolute values may lead to misinterpretation of CBC data. Current Interpretive Data was last revised on 2017. Imm gran pct 0.3 % [facility] Comment: Interpretive Data Percent cell count reference ranges are not reported, since discordance with absolute values may lead to misinterpretation of CBC data. Current Interpretive Data was last revised on 2017. Lymphocyte pct 19.2 % [facility] Comment: Interpretive Data Percent cell count reference ranges are not reported, since discordance with absolute values may lead to misinterpretation of CBC data. Current Interpretive Data was last revised on 2017. Monocyte pct 9.4 % [facility] Comment: Interpretive Data Percent cell count reference ranges are not reported, since discordance with absolute values may lead to misinterpretation of CBC data. Current Interpretive Data was last revised on 2017. Eosinophil pct 3.5 % [facility] Comment: Interpretive Data Percent cell count reference ranges are not reported, since discordance with absolute values may lead to misinterpretation of CBC data. Current Interpretive Data was last revised on 2017. Basophil pct 0.3 % [facility] Comment: Interpretive Data Percent cell count reference ranges are not reported, since discordance with absolute values may lead to misinterpretation of CBC data. Current Interpretive Data was last revised on 2017. Blood 02/12/2024 11:5 7 PM SUPERVISOR TYPESETTING 02/13/2024 12:29 AM SUPERVISOR TYPESETTING us Carin Granados MD LAB BLOOD ORDERABLES Tete palomino Result [facility] Department [place] [address] * (ABNORMAL) CBC with auto differential (02/12/2024 11:57 PM SUPERVISOR TYPESETTING) WBC 6.3 3.8 - 9.9 K/cumm Hgb 7.2(L) 11.9 - 15.5 g/dL [facility] Hct 23.1(L) 35.6 - 45.5 % [facility] Plt 208 150 - 400 K/cumm [facility] MPV 9.7 9.1 - 12.3 fL [facility] RBC 2.77(L) 3.90 - 5.20 M/cumm [facility] MCV 83.4 81.3 - 96.4 fL [facility] MCH 26.0(L) 27.1 - 33.3 pg [facility] MCHC 31.2(L) 32.3 - 35.7 g/dL [facility] RDW CV 14.4 11.1 - 14.9 % [facility] RDW SD 43.3 35.7 - 48.1 fL [facility] NRBC abs 0.00 0.00 - 0.01 K/cumm [facility] Blood 02/12/2024 11:5 7 PM SUPERVISOR TYPESETTING 02/13/2024 12:29 AM SUPERVISOR TYPESETTING Carin Granados MD LAB BLOOD ORDERABLES Tete l Result Performing Organization Address City/[facility]/ZIP Co de Phone Number [facility] [employer] [place] [address] * Phosphorus (02/12/2024 11:57 PM SUPERVISOR TYPESETTING) Phosphorus, pl 2.8 2.3 - 4.5 mg/dL Blood 02/12/2024 11:5 7 PM SUPERVISOR TYPESETTING 02/13/2024 12:29 AM SUPERVISOR TYPESETTING Carin Granados MD LAB BLOOD ORDERABLES Tete l Result Performing Organization Address City/[facility] Co de Phone Number [facility] [employer] [place] [address] * Magnesium (02/12/2024 11:57 PM SUPERVISOR TYPESETTING) Magnesium 2.2 1.4 - 2.5 mg/dL Blood 02/12/2024 11:5 7 PM SUPERVISOR TYPESETTING 02/13/2024 12:29 AM SUPERVISOR TYPESETTING Carin Granados MD LAB BLOOD ORDERABLES Tete l Result Performing Organization Address City/[facility]/ZIP Co de Phone Number [facility] [employer] [place] [address] * (ABNORMAL) Hepatic function panel (02/12/2024 11:57 PM SUPERVISOR TYPESETTING) Bilirubin, total 0.5 0.1 - 1.2 mg/dL Bilirubin, direct 0.2 0.1 - 0.3 mg/dL [facility] Protein, pl 7.2 6.5 - 8.5 g/dL [facility] Albumin 3.2(L) 3.5 - 5.0 g/dL [facility] Alk phos 330(H) 40 - 130 Units/L [facility] ALT 29 7 - 45 Units/L [facility] AST 68(H) 10 - 45 Units/L [facility] Blood 02/12/2024 11:5 7 PM SUPERVISOR TYPESETTING 02/13/2024 12:29 AM SUPERVISOR TYPESETTING Carin Granados MD LAB BLOOD ORDERABLES Tete l Result [facility] Department [place] [address] * Basic metabolic panel (02/12/2024 11:57 PM SUPERVISOR TYPESETTING) Sodium 140 135 - 145 mmol/L Potassium, pl 3.9 3.3 - 4.9 mmol/L [facility] Chloride 100 97 - 110 mmol/L [facility] CO2 30 22 - 32 mmol/L [facility] Anion gap 10 2 - 15 mmol/L [facility] BUN 24 6 - 25 mg/dL [facility] Creatinine 0.95 0.60 - 1.10 mg/dL [facility] Glucose 165 70 - 199 mg/dL [facility] Comment: Interpretive Data Fasting glucose >/= [...] 2022. Calcium 8.9 8.5 - 10.3 mg/dL [facility] Blood 02/12/2024 11:5 7 PM SUPERVISOR TYPESETTING 02/13/2024 12:29 AM SUPERVISOR TYPESETTING us Carin Granados MD LAB BLOOD ORDERABLES Tete l Result Performing Organization Address City/[facility] Co de Phone Number [facility] [employer] [place] [address] * POCT glucose (02/12/2024 8:27 PM SUPERVISOR TYPESETTING) Glucose, POC 167 70 - 199 mg/dL Blood 02/12/2024 8:27 PM SUPERVISOR TYPESETTING 02/12/2024 8:27 PM SUPERVISOR TYPESETTING us Kassidy Pinzon MD LAB POCT ORDERABLES - DEVIC E Final Result Performing Organization Address [facility] de Phone Number [facility] [employer] [place] [address] * POCT glucose (02/12/2024 5:13 PM SUPERVISOR TYPESETTING) Glucose, POC 167 70 - 199 mg/dL Blood 02/12/2024 5:13 PM SUPERVISOR TYPESETTING 02/12/2024 5:13 PM SUPERVISOR TYPESETTING us Kassidy Pinzon MD LAB POCT ORDERABLES - DEVIC E Final Result Performing Organization Address [facility] Co de Phone Number [facility] [employer] [place] [address] * POCT glucose (02/12/2024 12:27 PM SUPERVISOR TYPESETTING) Glucose, POC 139 70 - 199 mg/dL Blood 02/12/2024 12:2 7 PM SUPERVISOR TYPESETTING 02/12/2024 12:27 PM SUPERVISOR TYPESETTING Kassidy Pinzon MD LAB POCT ORDERABLES - DEVIC E Final Result Performing Organization Address City/[facility] Co de Phone Number [facility] [place] [address] * POCT glucose (02/12/2024 9:21 AM SUPERVISOR TYPESETTING) Glucose, POC 95 70 - 199 mg/dL Blood 02/12/2024 9:21 AM SUPERVISOR TYPESETTING 02/12/2024 9:21 AM SUPERVISOR TYPESETTING Kassidy Pinzon MD LAB POCT ORDERABLES - DEVIC E Final Result Performing Organization Address City/[facility] Co de Phone Number [facility] [employer] [place] [address] * POCT glucose (02/12/2024 8:02 AM SUPERVISOR TYPESETTING) Glucose, POC 91 70 - 199 mg/dL Blood 02/12/2024 8:02 AM SUPERVISOR TYPESETTING 02/12/2024 8:02 AM SUPERVISOR TYPESETTING Kassidy Pinzon MD LAB POCT ORDERABLES - DEVIC E Final Result Performing Organization Address City/[facility] [place] [address] * eGFR (02/11/2024 11:54 PM SUPERVISOR TYPESETTING) eGFR 65 >=60 mL/min/1. 73 m2 Comment: [...] reviewed 2021. Blood 02/11/2024 11:5 4 PM SUPERVISOR TYPESETTING 02/12/2024 12:43 AM SUPERVISOR TYPESETTING us Carin Granados MD LAB BLOOD ORDERABLES Tete palomino Result [facility] Department [place] [address] * Differential, auto (02/11/2024 11:54 PM SUPERVISOR TYPESETTING) Neutrophil abs 4.3 1.5 - 6.5 K/cumm Imm gran abs 0.0 0.0 - 0.1 K/cumm [facility] Lymphocyte abs 1.3 0.8 - 3.3 K/cumm [facility] Monocyte abs 0.7 0.2 - 0.8 K/cumm [facility] Eosinophil abs 0.2 0.0 - 0.5 K/cumm [facility] Basophil abs 0.0 0.0 - 0.1 K/cumm [facility] Neutrophil pct 66.6 % [facility] Comment: Interpretive Data Percent cell count reference ranges are not reported, since discordance with absolute values may lead to misinterpretation of CBC data. Current Interpretive Data was last revised on 2017. Imm gran pct 0.3 % [facility] Comment: Interpretive Data Percent cell count reference ranges are not reported, since discordance with absolute values may lead to misinterpretation of CBC data. Current Interpretive Data was last revised on 2017. Lymphocyte pct 19.4 % [facility] Comment: Interpretive Data Percent cell count reference ranges are not reported, since discordance with absolute values may lead to misinterpretation of CBC data. Current Interpretive Data was last revised on 2017. Monocyte pct 10.1 % [facility] Comment: Interpretive Data Percent cell count reference ranges are not reported, since discordance with absolute values may lead to misinterpretation of CBC data. Current Interpretive Data was last revised on 2017. Eosinophil pct 3.1 % [facility] Comment: Interpretive Data Percent cell count reference ranges are not reported, since discordance with absolute values may lead to misinterpretation of CBC data. Current Interpretive Data was last revised on 2017. Basophil pct 0.5 % [facility] Comment: Interpretive Data Percent cell count reference ranges are not reported, since discordance with absolute values may lead to misinterpretation of CBC data. Current Interpretive Data was last revised on 2017. Blood 02/11/2024 11:5 4 PM SUPERVISOR TYPESETTING 02/12/2024 12:42 AM SUPERVISOR TYPESETTING us Carin Granados MD LAB BLOOD ORDERABLES Tete palomino Result [facility] Department [place] [address] * (ABNORMAL) CBC with auto differential (02/11/2024 11:54 PM SUPERVISOR TYPESETTING) Pathologist [facility] WBC 6.4 3.8 - 9.9 K/cumm Hgb 7.4(L) 11.9 - 15.5 g/dL [facility] Hct 24.0(L) 35.6 - 45.5 % [facility] Plt 230 150 - 400 K/cumm [facility] MPV 9.8 9.1 - 12.3 fL [facility] RBC 2.88(L) 3.90 - 5.20 M/cumm [facility] MCV 83.3 81.3 - 96.4 fL [facility] MCH 25.7(L) 27.1 - 33.3 pg [facility] MCHC 30.8(L) 32.3 - 35.7 g/dL [facility] RDW CV 14.3 11.1 - 14.9 % [facility] RDW SD 42.9 35.7 - 48.1 fL [facility] NRBC abs 0.00 0.00 - 0.01 K/cumm [facility] Blood 02/11/2024 11:5 4 PM SUPERVISOR TYPESETTING 02/12/2024 12:42 AM SUPERVISOR TYPESETTING Carin Granados MD LAB BLOOD ORDERABLES Tete l Result Performing Organization Address [facility] Co de Phone Number [facility] [place] [address] * Phosphorus (02/11/2024 11:54 PM SUPERVISOR TYPESETTING) Phosphorus, pl 2.9 2.3 - 4.5 mg/dL Blood 02/11/2024 11:5 4 PM SUPERVISOR TYPESETTING 02/12/2024 12:43 AM SUPERVISOR TYPESETTING Result [facility] Carin Granados MD LAB BLOOD ORDERABLES Tete l Result Performing Organization Address [facility] Co de Phone Number [facility] [place] [address] * Magnesium (02/11/2024 11:54 PM SUPERVISOR TYPESETTING) Magnesium 2.5 1.4 - 2.5 mg/dL Blood 02/11/2024 11:5 4 PM SUPERVISOR TYPESETTING 02/12/2024 12:43 AM SUPERVISOR TYPESETTING Result [facility] Carin Granados MD LAB BLOOD ORDERABLES Tete l Result Performing Organization Address [facility] de Phone Number [facility] [place] [address] * (ABNORMAL) Hepatic function panel (02/11/2024 11:54 PM SUPERVISOR TYPESETTING) Bilirubin, total 0.6 0.1 - 1.2 mg/dL Bilirubin, direct 0.2 0.1 - 0.3 mg/dL [facility] Protein, pl 7.3 6.5 - 8.5 g/dL [facility] Albumin 3.1(L) 3.5 - 5.0 g/dL [facility] Alk phos 317(H) 40 - 130 Units/L [facility] ALT 27 7 - 45 Units/L [facility] AST 69(H) 10 - 45 Units/L [facility] Blood 02/11/2024 11:5 4 PM SUPERVISOR TYPESETTING 02/12/2024 12:43 AM SUPERVISOR TYPESETTING Carin Granados MD LAB BLOOD ORDERABLES Tete l Result [facility] Department [place] [address] * (ABNORMAL) Basic metabolic panel (02/11/2024 11:54 PM SUPERVISOR TYPESETTING) Pathologist [facility] Sodium 138 135 - 145 mmol/L Potassium, pl 4.5 3.3 - 4.9 mmol/L [facility] Chloride 99 97 - 110 mmol/L [facility] CO2 31 22 - 32 mmol/L [facility] Anion gap 8 2 - 15 mmol/L [facility] BUN 26(H) 6 - 25 mg/dL [facility] Creatinine 1.11(H) 0.60 - 1.10 mg/dL [facility] Glucose 96 70 - 199 mg/dL [facility] Comment: Interpretive Data Fasting glucose >/= [...] 2022. Calcium 9.0 8.5 - 10.3 mg/dL [facility] Blood 02/11/2024 11:5 4 PM SUPERVISOR TYPESETTING 02/12/2024 12:43 AM SUPERVISOR TYPESETTING Carin Granados MD LAB BLOOD ORDERABLES Tete l Result Performing Organization Address [facility]/ZIP Co de Phone Number [facility] [place] [address] * POCT glucose (02/11/2024 8:20 PM SUPERVISOR TYPESETTING) Glucose, POC 114 70 - 199 mg/dL Blood 02/11/2024 8:20 PM SUPERVISOR TYPESETTING 02/11/2024 8:20 PM SUPERVISOR TYPESETTING us Kassidy Pinzon MD LAB POCT ORDERABLES - DEVIC E Final Result Performing Organization Address City/[facility] [place] [address] * POCT glucose (02/11/2024 4:42 PM SUPERVISOR TYPESETTING) [facility] Glucose, POC 106 70 - 199 mg/dL Blood 02/11/2024 4:42 PM SUPERVISOR TYPESETTING 02/11/2024 4:42 PM SUPERVISOR TYPESETTING us Kassidy Pinzon MD LAB POCT ORDERABLES - DEVIC E Final Result Performing Organization Address City/[facility]/ZIP Co de Phone Number [facility] [place] [address] * POCT glucose (02/11/2024 7:33 AM SUPERVISOR TYPESETTING) [facility] Glucose, POC 99 70 - 199 mg/dL Blood 02/11/2024 7:33 AM SUPERVISOR TYPESETTING 02/11/2024 7:33 AM SUPERVISOR TYPESETTING us Kassidy Pinzon MD LAB POCT ORDERABLES - DEVIC E Final Result Performing Organization Address City/[facility]/ZIP Co de Phone Number [facility] [place] [address] * B RYDER IGG (02/11/2024 12:30 AM SUPERVISOR TYPESETTING) [facility] Direct Ruiz IgG Negative Blood 02/11/2024 12:3 0 AM SUPERVISOR TYPESETTING 02/11/2024 12:30 AM SUPERVISOR TYPESETTING Kassidy Pinzon MD LAB BODY FLUIDS AND STOOLS ORDERABLES Final Result Performing Organization Address [facility] de Phone Number [facility] [employer] [place] [address] * (ABNORMAL) B RYDER C3 (02/11/2024 12:30 AM SUPERVISOR TYPESETTING) [facility] Direct Ruiz C3 Positive(A ) Blood 02/11/2024 12:3 0 AM SUPERVISOR TYPESETTING 02/11/2024 12:30 AM SUPERVISOR TYPESETTING Kassidy Pinzon MD LAB BLOOD ORDERABLES Final Result Performing Organization Address [facility] Phone Number [facility] [employer] [place] [address] * Antibody identification (02/10/2024 10:02 PM SUPERVISOR TYPESETTING) [facility] Antibody ID 1 Anti-K Comment:Previous anti-E not reacting Blood 02/10/2024 10:0 2 PM SUPERVISOR TYPESETTING 02/10/2024 10:02 PM SUPERVISOR TYPESETTING Kassidy Pinzon MD LAB BLOOD BANK TEST ORDERAB LES Final Result Performing Organization Address [facility] de Phone Number [facility] [employer] [place] [address] * eGFR (02/10/2024 8:51 PM SUPERVISOR TYPESETTING) [facility] eGFR 70 >=60 mL/min/1. 73 m2 [...] last reviewed 2021. Blood 02/10/2024 8:51 PM SUPERVISOR TYPESETTING 02/10/2024 9:12 PM SUPERVISOR TYPESETTING us Carin Granados MD LAB BLOOD ORDERABLES Tete palomino Result [facility] Department [place] [address] * Differential, auto (02/10/2024 8:51 PM SUPERVISOR TYPESETTING) Pathologist [facility] Neutrophil abs 4.2 1.5 - 6.5 K/cumm Imm gran abs 0.0 0.0 - 0.1 K/cumm [facility] Lymphocyte abs 1.4 0.8 - 3.3 K/cumm [facility] Monocyte abs 0.6 0.2 - 0.8 K/cumm [facility] Eosinophil abs 0.2 0.0 - 0.5 K/cumm [facility] Basophil abs 0.0 0.0 - 0.1 K/cumm [facility] Neutrophil pct 64.3 % [facility] Comment: Interpretive Data Percent cell count reference ranges are not reported, since discordance with absolute values may lead to misinterpretation of CBC data. Current Interpretive Data was last revised on 2017. Imm gran pct 0.3 % [facility] Comment: Interpretive Data Percent cell count reference ranges are not reported, since discordance with absolute values may lead to misinterpretation of CBC data. Current Interpretive Data was last revised on 2017. Lymphocyte pct 22.0 % [facility] Comment: Interpretive Data Percent cell count reference ranges are not reported, since discordance with absolute values may lead to misinterpretation of CBC data. Current Interpretive Data was last revised on 2017. Monocyte pct 9.4 % [facility] Comment: Interpretive Data Percent cell count reference ranges are not reported, since discordance with absolute values may lead to misinterpretation of CBC data. Current Interpretive Data was last revised on 2017. Eosinophil pct 3.7 % [facility] Comment: Interpretive Data Percent cell count reference ranges are not reported, since discordance with absolute values may lead to misinterpretation of CBC data. Current Interpretive Data was last revised on 2017. Basophil pct 0.3 % [facility] Comment: Interpretive Data Percent cell count reference ranges are not reported, since discordance with absolute values may lead to misinterpretation of CBC data. Current Interpretive Data was last revised on 2017. Blood 02/10/2024 8:51 PM SUPERVISOR TYPESETTING 02/10/2024 9:12 PM SUPERVISOR TYPESETTING us Carin Granados MD LAB BLOOD ORDERABLES Tete palomino Result [facility] Department [place] [address] * (ABNORMAL) CBC with auto differential (02/10/2024 8:51 PM SUPERVISOR TYPESETTING) WBC 6.5 3.8 - 9.9 K/cumm Hgb 7.5(L) 11.9 - 15.5 g/dL [facility] Hct 24.3(L) 35.6 - 45.5 % [facility] Plt 245 150 - 400 K/cumm [facility] MPV 9.5 9.1 - 12.3 fL [facility] RBC 2.92(L) 3.90 - 5.20 M/cumm [facility] MCV 83.2 81.3 - 96.4 fL [facility] MCH 25.7(L) 27.1 - 33.3 pg [facility] MCHC 30.9(L) 32.3 - 35.7 g/dL [facility] RDW CV 14.1 11.1 - 14.9 % [facility] RDW SD 42.3 35.7 - 48.1 fL [facility] NRBC abs 0.00 0.00 - 0.01 K/cumm [facility] Blood 02/10/2024 8:51 PM SUPERVISOR TYPESETTING 02/10/2024 9:12 PM SUPERVISOR TYPESETTING Carin Granados MD LAB BLOOD ORDERABLES Tete l Result Performing Organization Address [facility] Co de Phone Number [facility] [employer] [place] [address] * Transfusion reaction evaluation with specimen collection (02/10/2024 8:51 PM SUPERVISOR TYPESETTING) Recommended Product Transfuse K negative red blood cells. Recommened Pre Medication None [facility] Final Analysis of Transfusion Reaction Delayed Hemolytic Transfusion Reaction [facility] Blood 02/10/2024 8:51 PM SUPERVISOR TYPESETTING 02/10/2024 9:12 PM SUPERVISOR TYPESETTING Result [facility] Kassidy Pinzon MD LAB BLOOD BANK TEST ORDERAB LES Final Result Performing Organization Address [facility] Co de Phone Number [facility] [employer] [place] [address] * (ABNORMAL) Type and screen (02/10/2024 8:51 PM SUPERVISOR TYPESETTING) ABO Rh O Positive Ruiz, indirect Positive(A) [facility] Blood 02/10/2024 8:51 PM SUPERVISOR TYPESETTING 02/10/2024 9:12 PM SUPERVISOR TYPESETTING Narrative [facility] - 02/10/2024 10:02 PM SUPERVISOR TYPESETTING Has the patient had Daratumumab or Isatuximab in the past 6 months?->Unknown Kassidy Pinzon MD LAB BLOOD BANK TEST ORDERAB LES Final Result Performing Organization Address [facility] Co de Phone Number [facility] [employer] [place], [place] [id number] * (ABNORMAL) Direct antiglobulin test (02/10/2024 8:51 PM SUPERVISOR TYPESETTING) Pathologist [facility] Direct Ruiz BS Interpretation Positive( A) Comment:Eluate not performed RYDER positive with anti-C3 only. Blood 02/10/2024 8:51 PM SUPERVISOR TYPESETTING 02/10/2024 9:12 PM SUPERVISOR TYPESETTING Kassidy Pinzon MD LAB BLOOD BANK TEST ORDERAB LES Final Result Performing Organization Address [facility] Co de Phone Number [place], [place] [id number] * Phosphorus (02/10/2024 8:51 PM SUPERVISOR TYPESETTING) Pathologist [facility] Phosphorus, pl 3.1 2.3 - 4.5 mg/dL Blood 02/10/2024 8:51 PM SUPERVISOR TYPESETTING 02/10/2024 9:12 PM SUPERVISOR TYPESETTING us Carin Granados MD LAB BLOOD ORDERABLES Tete l Result Performing Organization Address [facility] Co de Phone Number [facility] [place], [place] [phone] * Magnesium (02/10/2024 8:51 PM SUPERVISOR TYPESETTING) [facility] Magnesium 2.3 1.4 - 2.5 mg/dL Blood 02/10/2024 8:51 PM SUPERVISOR TYPESETTING 02/10/2024 9:12 PM SUPERVISOR TYPESETTING us Carin Granados MD LAB BLOOD ORDERABLES Tete l Result Performing Organization Address [facility] Co de Phone Number [facility] Department [place] [address] * (ABNORMAL) Hepatic function panel (02/10/2024 8:51 PM SUPERVISOR TYPESETTING) [facility] Bilirubin, total 0.8 0.1 - 1.2 mg/dL Bilirubin, direct 0.3 0.1 - 0.3 mg/dL [facility] Protein, pl 7.2 6.5 - 8.5 g/dL [facility] Albumin 3.1(L) 3.5 - 5.0 g/dL [facility] Alk phos 317(H) 40 - 130 Units/L [facility] ALT 26 7 - 45 Units/L [facility] AST 60(H) 10 - 45 Units/L [facility] Blood 02/10/2024 8:51 PM SUPERVISOR TYPESETTING 02/10/2024 9:12 PM SUPERVISOR TYPESETTING Carin Granados MD LAB BLOOD ORDERABLES Tete l Result [facility] Department [place] [address] * Basic metabolic panel (02/10/2024 8:51 PM SUPERVISOR TYPESETTING) [facility] Sodium 137 135 - 145 mmol/L Potassium, pl 4.5 3.3 - 4.9 mmol/L [facility] Chloride 100 97 - 110 mmol/L [facility] CO2 31 22 - 32 mmol/L [facility] Anion gap 6 2 - 15 mmol/L [facility] BUN 25 6 - 25 mg/dL [facility] Creatinine 1.05 0.60 - 1.10 mg/dL [facility] Glucose 103 70 - 199 mg/dL [facility] Comment: Interpretive Data Fasting glucose >/= [...] 2022. Calcium 8.9 8.5 - 10.3 mg/dL [facility] Blood 02/10/2024 8:51 PM SUPERVISOR TYPESETTING 02/10/2024 9:12 PM SUPERVISOR TYPESETTING Carin Granados MD LAB BLOOD ORDERABLES Tete l Result [facility] [place] [address] * POCT glucose (02/10/2024 8:28 PM SUPERVISOR TYPESETTING) Glucose, POC 111 70 - 199 mg/dL Blood 02/10/2024 8:28 PM SUPERVISOR TYPESETTING 02/10/2024 8:28 PM SUPERVISOR TYPESETTING Kassidy Pinzon MD LAB POCT ORDERABLES - DEVIC E Final Result Performing Organization Address City/[facility] Co de Phone Number [facility] [employer] [place] [address] * POCT glucose (02/10/2024 5:13 PM SUPERVISOR TYPESETTING) Glucose, POC 96 70 - 199 mg/dL Blood 02/10/2024 5:13 PM SUPERVISOR TYPESETTING 02/10/2024 5:13 PM SUPERVISOR TYPESETTING Kassidy Pinzon MD LAB POCT ORDERABLES - DEVIC E Final Result Performing Organization Address City/[facility] Co de Phone Number [facility] [employer] [place] [address] * IR Central Line Placement > 5 Years (02/10/2024 3:32 PM SUPERVISOR TYPESETTING) Anatomical Region Laterality Modality Body N/A Radio Fluoroscop y 02/10/2024 3:42 PM SUPERVISOR TYPESETTING Impressions 02/10/2024 3:42 PM SUPERVISOR TYPESETTING Successful nontunneled catheter placement (5-[place]er dual-lumen) in the left internal jugular vein. [...] Abby Mao MD Narrative 02/10/2024 3:42 PM SUPERVISOR TYPESETTING EXAMINATION: NONTUNNELED CENTRAL VENOUS CATHETER PLACEMENT (STD) HISTORY: History sacral wound with plan for long-term intravenous antibiotics. ATTENDING PRESENCE: Abby Mao MD, PhD, the attending radiologist was present from the beginning to the end of the procedure. SEDATION: Local anesthetic only TECHNIQUE: The risks, benefits and alternatives were discussed and informed consent was obtained. Prior to beginning the procedure, [place] Protocol was used to confirm the patient's [...] was assessed. After dilating the tract, a 5-[place]er dual lumen aric trimmed to the appropriate [...] was obtained. Prior to beginning the procedure, [place] Protocol was used to confirm the patient's [...] was assessed. After dilating the tract, a 5-[place]er dual lumen aric trimmed to the appropriate [...] are seen. IMPRESSION: Successful nontunneled catheter placement (5-[place]er dual-lumen) in the left internal jugular vein. [...] ult * POCT glucose (02/10/2024 12:31 PM SUPERVISOR TYPESETTING) Glucose, POC 119 70 - 199 mg/dL Blood 02/10/2024 12:3 1 PM SUPERVISOR TYPESETTING 02/10/2024 12:31 PM SUPERVISOR TYPESETTING Kassidy Pinzon MD LAB POCT ORDERABLES - DEVIC E Final Result Performing Organization Address City/State/[facility] Co de Phone Number [facility] Department [place] [address] * POCT glucose (02/10/2024 8:15 AM SUPERVISOR TYPESETTING) Glucose, POC 96 70 - 199 mg/dL Blood 02/10/2024 8:15 AM SUPERVISOR TYPESETTING 02/10/2024 8:15 AM SUPERVISOR TYPESETTING Kassidy Pinzon MD LAB POCT ORDERABLES - DEVIC E Final Result Performing Organization Address City/[facility] Co de Phone Number [facility] [place] [address] * eGFR (02/09/2024 9:52 PM SUPERVISOR TYPESETTING) [facility] eGFR 71 >=60 mL/min/1. 73 m2 [...] last reviewed 2021. Blood 02/09/2024 9:52 PM SUPERVISOR TYPESETTING 02/09/2024 10:45 PM SUPERVISOR TYPESETTING Carin Granados MD LAB BLOOD ORDERABLES Tete georgette Result [facility] Department [place] [address] * Differential, auto (02/09/2024 9:52 PM SUPERVISOR TYPESETTING) Neutrophil abs 3.9 1.5 - 6.5 K/cumm Imm gran abs 0.0 0.0 - 0.1 K/cumm [facility] Lymphocyte abs 1.1 0.8 - 3.3 K/cumm [facility] Monocyte abs 0.7 0.2 - 0.8 K/cumm [facility] Eosinophil abs 0.2 0.0 - 0.5 K/cumm [facility] Basophil abs 0.0 0.0 - 0.1 K/cumm [facility] Neutrophil pct 65.2 % [facility] Comment: Interpretive Data Percent cell count reference ranges are not reported, since discordance with absolute values may lead to misinterpretation of CBC data. Current Interpretive Data was last revised on 2017. Imm gran pct 0.2 % [facility] Comment: Interpretive Data Percent cell count reference ranges are not reported, since discordance with absolute values may lead to misinterpretation of CBC data. Current Interpretive Data was last revised on 2017. Lymphocyte pct 19.0 % [facility] Comment: Interpretive Data Percent cell count reference ranges are not reported, since discordance with absolute values may lead to misinterpretation of CBC data. Current Interpretive Data was last revised on 2017. Monocyte pct 11.8 % [facility] Comment: Interpretive Data Percent cell count reference ranges are not reported, since discordance with absolute values may lead to misinterpretation of CBC data. Current Interpretive Data was last revised on 2017. Eosinophil pct 3.5 % [facility] Comment: Interpretive Data Percent cell count reference ranges are not reported, since discordance with absolute values may lead to misinterpretation of CBC data. Current Interpretive Data was last revised on 2017. Basophil pct 0.3 % [facility] Comment: Interpretive Data Percent cell count reference ranges are not reported, since discordance with absolute values may lead to misinterpretation of CBC data. Current Interpretive Data was last revised on 2017. Blood 02/09/2024 9:52 PM SUPERVISOR TYPESETTING 02/09/2024 10:46 PM SUPERVISOR TYPESETTING us Carin Granados MD LAB BLOOD ORDERABLES Tete l Result [facility] Department [place] [address] * (ABNORMAL) CBC with auto differential (02/09/2024 9:52 PM SUPERVISOR TYPESETTING) WBC 5.9 3.8 - 9.9 K/cumm Hgb 7.0(L) 11.9 - 15.5 g/dL [facility] Hct 22.8(L) 35.6 - 45.5 % [facility] Plt 230 150 - 400 K/cumm [facility] MPV 9.8 9.1 - 12.3 fL [facility] RBC 2.77(L) 3.90 - 5.20 M/cumm [facility] MCV 82.3 81.3 - 96.4 fL [facility] MCH 25.3(L) 27.1 - 33.3 pg [facility] MCHC 30.7(L) 32.3 - 35.7 g/dL [facility] RDW CV 13.7 11.1 - 14.9 % [facility] RDW SD 41.2 35.7 - 48.1 fL [facility] NRBC abs 0.00 0.00 - 0.01 K/cumm [facility] Blood 02/09/2024 9:52 PM SUPERVISOR TYPESETTING 02/09/2024 10:46 PM SUPERVISOR TYPESETTING us Carin Granados MD LAB BLOOD ORDERABLES Tete l Result [facility] [place] [address] * Phosphorus (02/09/2024 9:52 PM SUPERVISOR TYPESETTING) Pathologist [facility] Phosphorus, pl 3.1 2.3 - 4.5 mg/dL Blood 02/09/2024 9:52 PM SUPERVISOR TYPESETTING 02/09/2024 10:45 PM SUPERVISOR TYPESETTING us Carin Granados MD LAB BLOOD ORDERABLES Tete l Result Performing Organization Address City/[facility] Co de Phone Number [facility] [place] [address] * Magnesium (02/09/2024 9:52 PM SUPERVISOR TYPESETTING) Pathologist [facility] Magnesium 2.2 1.4 - 2.5 mg/dL Blood 02/09/2024 9:52 PM SUPERVISOR TYPESETTING 02/09/2024 10:45 PM SUPERVISOR TYPESETTING us Carin Granados MD LAB BLOOD ORDERABLES Tete l Result Performing Organization Address [facility] [place] [address] * Vancomycin level random (02/09/2024 9:52 PM SUPERVISOR TYPESETTING) [facility] Vancomycin random 11.5 mcg/mL Comment: Interpretive Data No reference ranges have been established for random drug levels. Current Interpretive Data was last revised on 2020. Blood 02/09/2024 9:52 PM SUPERVISOR TYPESETTING 02/09/2024 10:45 PM SUPERVISOR TYPESETTING us Kassidy Pinzon MD LAB BLOOD ORDERABLES Final Result Performing Organization Address City/[facility]/ZIP Co de Phone Number [facility] [employer] [place] [address] * (ABNORMAL) Hepatic function panel (02/09/2024 9:52 PM SUPERVISOR TYPESETTING) [facility] Bilirubin, total 0.9 0.1 - 1.2 mg/dL Bilirubin, direct 0.3 0.1 - 0.3 mg/dL [facility] Protein, pl 6.7 6.5 - 8.5 g/dL [facility] Albumin 2.7(L) 3.5 - 5.0 g/dL [facility] Alk phos 306(H) 40 - 130 Units/L [facility] ALT 27 7 - 45 Units/L [facility] AST 60(H) 10 - 45 Units/L [facility] Blood 02/09/2024 9:52 PM SUPERVISOR TYPESETTING 02/09/2024 10:45 PM SUPERVISOR TYPESETTING us Carin Granados MD LAB BLOOD ORDERABLES Tete l Result [facility] Department [place] [address] * Basic metabolic panel (02/09/2024 9:52 PM SUPERVISOR TYPESETTING) [facility] Sodium 138 135 - 145 mmol/L Potassium, pl 4.3 3.3 - 4.9 mmol/L [facility] Chloride 103 97 - 110 mmol/L [facility] CO2 29 22 - 32 mmol/L [facility] Anion gap 6 2 - 15 mmol/L [facility] BUN 21 6 - 25 mg/dL [facility] Creatinine 1.03 0.60 - 1.10 mg/dL [facility] Glucose 124 70 - 199 mg/dL [facility] Comment: Interpretive Data Fasting glucose >/= [...] 2022. Calcium 8.7 8.5 - 10.3 mg/dL [facility] Blood 02/09/2024 9:52 PM SUPERVISOR TYPESETTING 02/09/2024 10:45 PM SUPERVISOR TYPESETTING Carin Granados MD LAB BLOOD ORDERABLES Tete l Result Performing Organization Address City/[facility] Co de Phone Number [facility] [place] [address] * POCT glucose (02/09/2024 8:32 PM SUPERVISOR TYPESETTING) Glucose, POC 135 70 - 199 mg/dL Blood 02/09/2024 8:32 PM SUPERVISOR TYPESETTING 02/09/2024 8:32 PM SUPERVISOR TYPESETTING us Kassidy Pinzon MD LAB POCT ORDERABLES - DEVIC E Final Result Performing Organization Address [facility] [place] [address] * POCT glucose (02/09/2024 5:55 PM SUPERVISOR TYPESETTING) Glucose, POC 142 70 - 199 mg/dL Blood 02/09/2024 5:55 PM SUPERVISOR TYPESETTING 02/09/2024 5:55 PM SUPERVISOR TYPESETTING Kassidy Pinzon MD LAB POCT ORDERABLES - DEVIC E Final Result Performing Organization Address [facility] de Phone Number [facility] [employer] [place] [address] * (ABNORMAL) Urinalysis reflex to microscopic and culture Urine (02/09/2024 5:09 PM SUPERVISOR TYPESETTING) Color, ur Straw Yellow Clarity, ur Cloudy(A) Clear [facility] Specific gravity, ur 1.014 1.003 - 1.030 [facility] pH, urine 8.0 [facility] Comment: Interpretive Data U rine pH is affected by diet, medications, systemic acid-base disturbances, and renal tubular function. pH may affect urinary stone formation. For example, urine pH below 6.0 may help reduce the tendency for calcium phosphate stones and pH greater than 6.0 may reduce the tendency for uric acid stone formation. Source: [facility] Current Interpretive Data was last revised on 2017 Protein, ur ql Trace Negative [facility] Glucose, ur ql Negative Negative [facility] Ketones, ur Negative Negative [facility] Bilirubin, ur Negative Negative [facility] Blood, ur 1+(A) Negative [facility] Urobilinogen, ur 2.0(A) <2.0 mg/dL [facility] Nitrite, ur Negative Negative [facility] Leukocyte esterase, ur 3+(A) Negative [facility] UA reflex comment Reflex to microscopic UA will be performed. [facility] Urine 02/09/2024 5:09 PM SUPERVISOR TYPESETTING 02/09/2024 5:48 PM SUPERVISOR TYPESETTING Kassidy Pinzon MD LAB MICROBIOLOGY - GENERAL ORDERABLES Final Result [facility] Department [place] [address] * (ABNORMAL) Urinalysis, microscopic only (02/09/2024 5:09 PM SUPERVISOR TYPESETTING) WBC, ur >50(A) 0 - 5 /HPF RBC, ur 6-10(A) 0 - 2 /HPF [facility] Epithelial cells, squamous, ur 1-5 0 - 5 /HPF [facility] Bacteria, ur Trace(A) [facility] Culture Reflex Comment Reflex to urine culture will be performed. [facility] Urine 02/09/2024 5:09 PM SUPERVISOR TYPESETTING 02/09/2024 5:48 PM SUPERVISOR TYPESETTING Kassidy Pinzon MD LAB URINE ORDERABLES Final Result [facility] Department [place] [address] * Urine culture Urine (02/09/2024 5:09 PM SUPERVISOR TYPESETTING) Report Final Report: No growth Urine 02/09/2024 5:09 PM SUPERVISOR TYPESETTING 02/09/2024 8:14 PM SUPERVISOR TYPESETTING Narrative [facility] - 02/10/2024 9:34 PM SUPERVISOR TYPESETTING Urine culture reflexed based upon urinalysis results. Testing performed by [facility] ([phone]) us Kassidy Pinzon MD LAB MICROBIOLOGY - GENERAL ORDERABLES Final Result Performing Organization Address [facility] Co de Phone Number [facility] Department [place] [address] * XR Abdomen Ap 1 Vw (02/09/2024 4:09 PM SUPERVISOR TYPESETTING) Anatomical Region Laterality Modality Body, Abdomen N/A Computed Radiogr aphy 02/09/2024 4:36 PM SUPERVISOR TYPESETTING Impressions 02/09/2024 4:54 PM SUPERVISOR TYPESETTING A single view of the abdomen is [...] Raheem Marion M.D. Narrative 02/09/2024 4:54 PM SUPERVISOR TYPESETTING EXAMINATION: Abdomen, one view. HISTORY: Abdominal pain. [...] ult * POCT glucose (02/09/2024 12:51 PM SUPERVISOR TYPESETTING) [facility] Glucose, POC 121 70 - 199 mg/dL Blood 02/09/2024 12:5 1 PM SUPERVISOR TYPESETTING 02/09/2024 12:51 PM SUPERVISOR TYPESETTING Kassidy Pinzon MD LAB POCT ORDERABLES - DEVIC E Final Result Performing Organization Address [facility] Co de Phone Number [facility] Department of [employer] [place] [address] * POCT glucose (02/09/2024 7:40 AM SUPERVISOR TYPESETTING) [facility] Glucose, POC 96 70 - 199 mg/dL Blood 02/09/2024 7:40 AM SUPERVISOR TYPESETTING 02/09/2024 7:40 AM SUPERVISOR TYPESETTING Kassidy Pinzon MD LAB POCT ORDERABLES - DEVIC E Final Result Performing Organization Address [facility] Co de Phone Number [facility] Department of [employer] [place] [address] * eGFR (02/09/2024 12:07 AM SUPERVISOR TYPESETTING) [facility] eGFR 77 >=60 mL/min/1. 73 m2 [...] reviewed 2021. Blood 02/09/2024 12:0 7 AM SUPERVISOR TYPESETTING 02/09/2024 12:57 AM SUPERVISOR TYPESETTING Carin Granados MD LAB BLOOD ORDERABLES Tete l Result Performing Organization Address City/[facility]/ZIP Co de Phone Number [facility] Department of [employer] [place] [address] * Creatinine (02/09/2024 12:07 AM SUPERVISOR TYPESETTING) Creatinine 0.97 0.60 - 1.10 mg/dL Blood 02/09/2024 12:0 7 AM SUPERVISOR TYPESETTING 02/09/2024 12:57 AM SUPERVISOR TYPESETTING Narrative [facility] - 02/09/2024 1:23 AM SUPERVISOR TYPESETTING While on enoxaparin Carin Granados MD LAB BLOOD ORDERABLES Tete l Result [facility] [employer] [place] [address] * eGFR (02/08/2024 9:50 PM SUPERVISOR TYPESETTING) eGFR 76 >=60 mL/min/1. 73 m2 Comment: [...] last reviewed 2021. Blood 02/08/2024 9:50 PM SUPERVISOR TYPESETTING 02/08/2024 11:07 PM SUPERVISOR TYPESETTING us Carin Granados MD LAB BLOOD ORDERABLES Tete palomino Result [facility] Department [place] [address] * Differential, auto (02/08/2024 9:50 PM SUPERVISOR TYPESETTING) Neutrophil abs 4.0 1.5 - 6.5 K/cumm Imm gran abs 0.0 0.0 - 0.1 K/cumm [facility] Lymphocyte abs 1.1 0.8 - 3.3 K/cumm [facility] Monocyte abs 0.5 0.2 - 0.8 K/cumm [facility] Eosinophil abs 0.3 0.0 - 0.5 K/cumm [facility] Basophil abs 0.0 0.0 - 0.1 K/cumm [facility] Neutrophil pct 68.3 % [facility] Comment: Interpretive Data Percent cell count reference ranges are not reported, since discordance with absolute values may lead to misinterpretation of CBC data. Current Interpretive Data was last revised on 2017. Imm gran pct 0.3 % [facility] Comment: Interpretive Data Percent cell count reference ranges are not reported, since discordance with absolute values may lead to misinterpretation of CBC data. Current Interpretive Data was last revised on 2017. Lymphocyte pct 17.9 % [facility] Comment: Interpretive Data Percent cell count reference ranges are not reported, since discordance with absolute values may lead to misinterpretation of CBC data. Current Interpretive Data was last revised on 2017. Monocyte pct 8.8 % [facility] Comment: Interpretive Data Percent cell count reference ranges are not reported, since discordance with absolute values may lead to misinterpretation of CBC data. Current Interpretive Data was last revised on 2017. Eosinophil pct 4.4 % [facility] Comment: Interpretive Data Percent cell count reference ranges are not reported, since discordance with absolute values may lead to misinterpretation of CBC data. Current Interpretive Data was last revised on 2017. Basophil pct 0.3 % [facility] Comment: Interpretive Data Percent cell count reference ranges are not reported, since discordance with absolute values may lead to misinterpretation of CBC data. Current Interpretive Data was last revised on 2017. Blood 02/08/2024 9:50 PM SUPERVISOR TYPESETTING 02/08/2024 10:57 PM SUPERVISOR TYPESETTING us Carin Granados MD LAB BLOOD ORDERABLES Tete palomino Result [facility] Department [place] [address] * (ABNORMAL) CBC with auto differential (02/08/2024 9:50 PM SUPERVISOR TYPESETTING) WBC 5.9 3.8 - 9.9 K/cumm Hgb 8.6(L) 11.9 - 15.5 g/dL [facility] Hct 27.7(L) 35.6 - 45.5 % [facility] Plt 239 150 - 400 K/cumm [facility] MPV 9.5 9.1 - 12.3 fL [facility] RBC 3.37(L) 3.90 - 5.20 M/cumm [facility] MCV 82.2 81.3 - 96.4 fL [facility] MCH 25.5(L) 27.1 - 33.3 pg [facility] MCHC 31.0(L) 32.3 - 35.7 g/dL [facility] RDW CV 13.6 11.1 - 14.9 % [facility] RDW SD 40.8 35.7 - 48.1 fL [facility] NRBC abs 0.00 0.00 - 0.01 K/cumm [facility] Blood 02/08/2024 9:50 PM SUPERVISOR TYPESETTING 02/08/2024 10:57 PM SUPERVISOR TYPESETTING Carin Granados MD LAB BLOOD ORDERABLES Tete l Result Performing Organization Address City/[facility] Co de Phone Number [facility] [place], [place] [id number] * (ABNORMAL) Protime-INR (02/08/2024 9:50 PM SUPERVISOR TYPESETTING) PT 16.5(H) 9.7 - 13.0 sec INR 1.51(H) 0.90 - 1.20 [facility] Comment: Interpretive data Oral anticoagulant therapeutic ranges: Venous thromboembolism prophylaxis or treatment: 2.0-3.0 CARDIOLOGY Standard range: 2.0-3.0 High-intensity range: 2.5-3.5 Refer to indication-specific guidelines for appropriate target ranges for prosthetic heart valve replacement. Current interpretive data was last revised on 2019. Blood 02/08/2024 9:50 PM SUPERVISOR TYPESETTING 02/08/2024 10:56 PM SUPERVISOR TYPESETTING us Kassidy Pinzon MD LAB BLOOD ORDERABLES Final Result Performing Organization Address City/[facility] Co de Phone Number [facility] [employer] [place], [place] [id number] * Phosphorus (02/08/2024 9:50 PM SUPERVISOR TYPESETTING) Phosphorus, pl 3.6 2.3 - 4.5 mg/dL Blood 02/08/2024 9:50 PM SUPERVISOR TYPESETTING 02/08/2024 10:52 PM SUPERVISOR TYPESETTING Carin Granados MD LAB BLOOD ORDERABLES Tete l Result Performing Organization Address [facility] de Phone Number [facility] [place] [address] * Magnesium (02/08/2024 9:50 PM SUPERVISOR TYPESETTING) Pathologist [facility] Magnesium 2.0 1.4 - 2.5 mg/dL Blood 02/08/2024 9:50 PM SUPERVISOR TYPESETTING 02/08/2024 10:52 PM SUPERVISOR TYPESETTING Carin Granados MD LAB BLOOD ORDERABLES Tete l Result Performing Organization Address [facility] [place] [address] * Vancomycin level random (02/08/2024 9:50 PM SUPERVISOR TYPESETTING) Pathologist [facility] Vancomycin random 20.0 mcg/mL Comment: Interpretive Data No reference ranges have been established for random drug levels. Current Interpretive Data was last revised on 2020. Blood 02/08/2024 9:50 PM SUPERVISOR TYPESETTING 02/08/2024 10:52 PM SUPERVISOR TYPESETTING Result [facility] Kassidy Pinzon MD LAB BLOOD ORDERABLES Final Result Performing Organization Address [facility] de Phone Number [facility] [employer] [place] [address] * (ABNORMAL) Hepatic function panel (02/08/2024 9:50 PM SUPERVISOR TYPESETTING) Pathologist [facility] Bilirubin, total 1.2 0.1 - 1.2 mg/dL Bilirubin, direct 0.3 0.1 - 0.3 mg/dL [facility] Protein, pl 7.2 6.5 - 8.5 g/dL [facility] Albumin 3.0(L) 3.5 - 5.0 g/dL [facility] Alk phos 305(H) 40 - 130 Units/L [facility] ALT 27 7 - 45 Units/L [facility] AST 63(H) 10 - 45 Units/L [facility] Blood 02/08/2024 9:50 PM SUPERVISOR TYPESETTING 02/08/2024 10:52 PM SUPERVISOR TYPESETTING us Carin Granados MD LAB BLOOD ORDERABLES Tete l Result [facility] Department [place] [address] * Basic metabolic panel (02/08/2024 9:50 PM SUPERVISOR TYPESETTING) Pathologist [facility] Sodium 139 135 - 145 mmol/L Potassium, pl 4.6 3.3 - 4.9 mmol/L [facility] Chloride 102 97 - 110 mmol/L [facility] CO2 29 22 - 32 mmol/L [facility] Anion gap 8 2 - 15 mmol/L [facility] BUN 23 6 - 25 mg/dL [facility] Creatinine 0.98 0.60 - 1.10 mg/dL [facility] Glucose 89 70 - 199 mg/dL [facility] Comment: Interpretive Data Fasting glucose >/= [...] 2022. Calcium 9.1 8.5 - 10.3 mg/dL [facility] Blood 02/08/2024 9:50 PM SUPERVISOR TYPESETTING 02/08/2024 10:52 PM SUPERVISOR TYPESETTING us Carin Granados MD LAB BLOOD ORDERABLES Tete l Result Performing Organization Address [facility] Co de Phone Number [facility] [place] [address] * POCT glucose (02/08/2024 8:31 PM SUPERVISOR TYPESETTING) Glucose, POC 98 70 - 199 mg/dL Blood 02/08/2024 8:31 PM SUPERVISOR TYPESETTING 02/08/2024 8:31 PM SUPERVISOR TYPESETTING Kassidy Pinzon MD LAB POCT ORDERABLES - DEVIC E Final Result Performing Organization Address [facility] de Phone Number [facility] [place] [address] * POCT glucose (02/08/2024 5:56 PM SUPERVISOR TYPESETTING) Glucose, POC 123 70 - 199 mg/dL Blood 02/08/2024 5:56 PM SUPERVISOR TYPESETTING 02/08/2024 5:56 PM SUPERVISOR TYPESETTING Kassidy Pinzon MD LAB POCT ORDERABLES - DEVIC E Final Result Performing Organization Address [facility] de Phone Number [facility] Department [place] [address] * (ABNORMAL) Vancomycin level trough Prior to 3rd dose of 750mg Q12 (02/08/2024 1:55 PM SUPERVISOR TYPESETTING) Vancomycin trough 24.7(H) 10.0 - 20.0 mcg/mL Comment:Reviewed Blood 02/08/2024 1:55 PM SUPERVISOR TYPESETTING 02/08/2024 2:35 PM SUPERVISOR TYPESETTING Narrative [facility] - 02/08/2024 3:10 PM SUPERVISOR TYPESETTING Prior to 3rd dose of 750mg Q12 Kassidy Pinzon MD LAB BLOOD ORDERABLES Final Result Performing Organization Address City/[facility]/ZIP Co de Phone Number [facility] Department [place] [address] * POCT glucose (02/08/2024 11:40 AM SUPERVISOR TYPESETTING) Glucose, POC 98 70 - 199 mg/dL Blood 02/08/2024 11:4 0 AM SUPERVISOR TYPESETTING 02/08/2024 11:40 AM SUPERVISOR TYPESETTING us Kassidy Pinzon MD LAB POCT ORDERABLES - DEVIC E Final Result Performing Organization Address City/[facility] Co de Phone Number [facility] [place] [address] * POCT glucose (02/08/2024 8:20 AM SUPERVISOR TYPESETTING) [facility] Glucose, POC 91 70 - 199 mg/dL Blood 02/08/2024 8:20 AM SUPERVISOR TYPESETTING 02/08/2024 8:20 AM SUPERVISOR TYPESETTING us Kassidy Pinzon MD LAB POCT ORDERABLES - DEVIC E Final Result Performing Organization Address City/[facility] Co de Phone Number [facility] Department [place] [address] * eGFR (02/07/2024 9:30 PM SUPERVISOR TYPESETTING) [facility] eGFR 66 >=60 mL/min/1. 73 m2 [...] last reviewed 2021. Blood 02/07/2024 9:30 PM SUPERVISOR TYPESETTING 02/07/2024 10:34 PM SUPERVISOR TYPESETTING us Carin Granados MD LAB BLOOD ORDERABLES Tete palomino Result [facility] Department [place] [address] * Differential, auto (02/07/2024 9:30 PM SUPERVISOR TYPESETTING) Neutrophil abs 4.1 1.5 - 6.5 K/cumm Imm gran abs 0.0 0.0 - 0.1 K/cumm [facility] Lymphocyte abs 0.8 0.8 - 3.3 K/cumm [facility] Monocyte abs 0.6 0.2 - 0.8 K/cumm [facility] Eosinophil abs 0.3 0.0 - 0.5 K/cumm [facility] Basophil abs 0.0 0.0 - 0.1 K/cumm [facility] Neutrophil pct 71.0 % [facility] Comment: Interpretive Data Percent cell count reference ranges are not reported, since discordance with absolute values may lead to misinterpretation of CBC data. Current Interpretive Data was last revised on 2017. Imm gran pct 0.5 % [facility] Comment: Interpretive Data Percent cell count reference ranges are not reported, since discordance with absolute values may lead to misinterpretation of CBC data. Current Interpretive Data was last revised on 2017. Lymphocyte pct 14.0 % [facility] Comment: Interpretive Data Percent cell count reference ranges are not reported, since discordance with absolute values may lead to misinterpretation of CBC data. Current Interpretive Data was last revised on 2017. Monocyte pct 9.5 % [facility] Comment: Interpretive Data Percent cell count reference ranges are not reported, since discordance with absolute values may lead to misinterpretation of CBC data. Current Interpretive Data was last revised on 2017. Eosinophil pct 4.8 % [facility] Comment: Interpretive Data Percent cell count reference ranges are not reported, since discordance with absolute values may lead to misinterpretation of CBC data. Current Interpretive Data was last revised on 2017. Basophil pct 0.2 % [facility] Comment: Interpretive Data Percent cell count reference ranges are not reported, since discordance with absolute values may lead to misinterpretation of CBC data. Current Interpretive Data was last revised on 2017. Blood 02/07/2024 9:30 PM SUPERVISOR TYPESETTING 02/07/2024 10:29 PM SUPERVISOR TYPESETTING us Carin Granados MD LAB BLOOD ORDERABLES Tete palomino Result [facility] Department [place] [address] * (ABNORMAL) CBC with auto differential (02/07/2024 9:30 PM SUPERVISOR TYPESETTING) WBC 5.8 3.8 - 9.9 K/cumm Hgb 7.8(L) 11.9 - 15.5 g/dL [facility] Hct 24.7(L) 35.6 - 45.5 % [facility] Plt 226 150 - 400 K/cumm [facility] MPV 9.8 9.1 - 12.3 fL [facility] RBC 2.95(L) 3.90 - 5.20 M/cumm [facility] MCV 83.7 81.3 - 96.4 fL [facility] MCH 26.4(L) 27.1 - 33.3 pg [facility] MCHC 31.6(L) 32.3 - 35.7 g/dL [facility] RDW CV 13.3 11.1 - 14.9 % [facility] RDW SD 40.3 35.7 - 48.1 fL [facility] NRBC abs 0.00 0.00 - 0.01 K/cumm [facility] Blood 02/07/2024 9:30 PM SUPERVISOR TYPESETTING 02/07/2024 10:29 PM SUPERVISOR TYPESETTING Carin Granados MD LAB BLOOD ORDERABLES Tete l Result Performing Organization Address [facility] Co de Phone Number [facility] [place] [address] * Phosphorus (02/07/2024 9:30 PM SUPERVISOR TYPESETTING) Pathologist [facility] Phosphorus, pl 4.4 2.3 - 4.5 mg/dL Blood 02/07/2024 9:30 PM SUPERVISOR TYPESETTING 02/07/2024 10:34 PM SUPERVISOR TYPESETTING Carin Granados MD LAB BLOOD ORDERABLES Tete l Result Performing Organization Address [facility] Co de Phone Number [facility] Department [place] [address] * Magnesium (02/07/2024 9:30 PM SUPERVISOR TYPESETTING) Pathologist [facility] Magnesium 2.1 1.4 - 2.5 mg/dL Blood 02/07/2024 9:30 PM SUPERVISOR TYPESETTING 02/07/2024 10:34 PM SUPERVISOR TYPESETTING Result [facility] Carin Granados MD LAB BLOOD ORDERABLES Tete l Result Performing Organization Address [facility] de Phone Number [facility] [employer] [place] [address] * (ABNORMAL) Hepatic function panel (02/07/2024 9:30 PM SUPERVISOR TYPESETTING) Bilirubin, total 1.1 0.1 - 1.2 mg/dL Bilirubin, direct 0.3 0.1 - 0.3 mg/dL [facility] Protein, pl 6.7 6.5 - 8.5 g/dL [facility] Albumin 2.7(L) 3.5 - 5.0 g/dL [facility] Alk phos 326(H) 40 - 130 Units/L [facility] ALT 31 7 - 45 Units/L [facility] AST 80(H) 10 - 45 Units/L [facility] Blood 02/07/2024 9:30 PM SUPERVISOR TYPESETTING 02/07/2024 10:34 PM SUPERVISOR TYPESETTING us Carin Granados MD LAB BLOOD ORDERABLES Tete l Result [facility] Department [place] [address] * Basic metabolic panel (02/07/2024 9:30 PM SUPERVISOR TYPESETTING) Pathologist [facility] Sodium 139 135 - 145 mmol/L Potassium, pl 4.5 3.3 - 4.9 mmol/L [facility] Chloride 103 97 - 110 mmol/L [facility] CO2 28 22 - 32 mmol/L [facility] Anion gap 8 2 - 15 mmol/L [facility] BUN 24 6 - 25 mg/dL [facility] Creatinine 1.10 0.60 - 1.10 mg/dL [facility] Glucose 109 70 - 199 mg/dL [facility] Comment: Interpretive Data Fasting glucose >/= [...] 2022. Calcium 8.7 8.5 - 10.3 mg/dL [facility] Blood 02/07/2024 9:30 PM SUPERVISOR TYPESETTING 02/07/2024 10:34 PM SUPERVISOR TYPESETTING Carin Granados MD LAB BLOOD ORDERABLES Tete l Result Performing Organization Address [facility] Co de Phone Number [facility] [place] [address] * POCT glucose (02/07/2024 8:20 PM SUPERVISOR TYPESETTING) Glucose, POC 127 70 - 199 mg/dL Blood 02/07/2024 8:20 PM SUPERVISOR TYPESETTING 02/07/2024 8:20 PM SUPERVISOR TYPESETTING us Kassidy Pinzon MD LAB POCT ORDERABLES - DEVIC E Final Result Performing Organization Address [facility] Phone Number [facility] [place] [address] * POCT glucose (02/07/2024 4:41 PM SUPERVISOR TYPESETTING) Glucose, POC 113 70 - 199 mg/dL Blood 02/07/2024 4:41 PM SUPERVISOR TYPESETTING 02/07/2024 4:41 PM SUPERVISOR TYPESETTING us Kassidy Pinzon MD LAB POCT ORDERABLES - DEVIC E Final Result Performing Organization Address [facility] Co de Phone Number [facility] [employer] [place] [address] * POCT glucose (02/07/2024 12:22 PM SUPERVISOR TYPESETTING) Glucose, POC 77 70 - 199 mg/dL Blood 02/07/2024 12:2 2 PM SUPERVISOR TYPESETTING 02/07/2024 12:22 PM SUPERVISOR TYPESETTING us Kassidy Pinzon MD LAB POCT ORDERABLES - DEVIC E Final Result Performing Organization Address [facility] Co de Phone Number [facility] [place] [address] * Tissue aerobic and anaerobic culture and gram stain Bone Sacral (02/07/2024 11:30 AM SUPERVISOR TYPESETTING) Direct Specimen Exam Stain: No polymorphonuclear leukocytes seen. No organisms seen. Report Final Report: No growth [facility] Bone (Sacral) 02/07/2024 11: 30 AM SUPERVISOR TYPESETTING 02/07/2024 3:04 PM SUPERVISOR TYPESETTING Narrative [facility] - 02/10/2024 12:53 PM SUPERVISOR TYPESETTING This is NOT Aspirate but instead a Coccyx Bone Biopsy Testing performed by [facility] ([phone]) Specimens submitted from normally sterile body sites [...] LAB MICROBIOLOGY - GENERAL ORDERABLES Final Result [facility] [place] [address] * Mycology (fungal) culture and stain Aspirate Sacral (02/07/2024 11:30 AM SUPERVISOR TYPESETTING) Direct Specimen Exam Stain: No Fungal elements seen. Report Final Report: No growth of fungus [facility] Aspirate (Sacral) 02/07/2024 11:30 AM SUPERVISOR TYPESETTING 02/07/2024 3:09 PM SUPERVISOR TYPESETTING Narrative [facility] - 03/06/2024 8:33 AM SUPERVISOR TYPESETTING Coccyx Aspirate Testing performed by [facility] ([phone]). us Carin Granados MD LAB MICROBIOLOGY - GENERA L ORDERABLES Final Result [facility] Department [place] [address] * Mycology (fungal) culture Bone Sacral (02/07/2024 11:30 AM SUPERVISOR TYPESETTING) Report Final Report: No growth of fungus Bone (Sacral) 02/07/2024 11: 30 AM SUPERVISOR TYPESETTING 02/07/2024 3:45 PM SUPERVISOR TYPESETTING Narrative [facility] - 03/06/2024 8:33 AM SUPERVISOR TYPESETTING Coccyx Bone Biopsy Testing performed by [facility] ([phone]). us Kassidy Pinzon MD LAB MICROBIOLOGY - GENERAL ORDERAB[place] [address] * Mycobacteriology (AFB) culture and acid-fast stain Bone Sacral (02/07/2024 11:30 AM SUPERVISOR TYPESETTING) Direct Specimen Exam Stain: No Acid-fast bacilli seen Report Final Report: No growth of acid-fast bacilli [facility] Bone (Sacral) 02/07/2024 11: 30 AM SUPERVISOR TYPESETTING 02/07/2024 3:07 PM SUPERVISOR TYPESETTING Narrative [facility] - 04/09/2024 9:27 AM SUPERVISOR TYPESETTING Coccyx Bone Biopsy Testing performed by [facility] ([phone]). us Carin Granados MD LAB MICROBIOLOGY - GENERA L ORDERAB[place] [address] * Mycobacteriology (AFB) culture and acid-fast stain Aspirate Sacral (02/07/2024 11:30 AM SUPERVISOR TYPESETTING) Direct Specimen Exam Stain: No Acid-fast bacilli seen Report Final Report: No growth of acid-fast bacilli [facility] Aspirate (Sacral) 02/07/2024 11:30 AM SUPERVISOR TYPESETTING 02/07/2024 3:09 PM SUPERVISOR TYPESETTING Narrative [facility] - 04/09/2024 9:27 AM SUPERVISOR TYPESETTING Coccyx Aspirate Testing performed by [facility] ([phone]). Carin Granados MD LAB MICROBIOLOGY - GENERA L ORDERABLES Final Result Performing Organization Address City/[facility]/ZIP Co de Phone Number [facility] Department [place] [address] * Aerobic and anaerobic culture and gram stain Aspirate Sacral (02/07/2024 11:30 AM SUPERVISOR TYPESETTING) Direct Specimen Exam Stain: Rare polymorphonuclear leukocytes seen. No organisms seen. Report Final Report: No growth [facility] Aspirate (Sacral) 02/07/2024 11:30 AM SUPERVISOR TYPESETTING 02/07/2024 3:09 PM SUPERVISOR TYPESETTING Narrative [facility] - 02/10/2024 12:52 PM SUPERVISOR TYPESETTING Coccyx Aspirate Testing performed by [facility] ([phone]) Specimens submitted from normally sterile body sites [...] L ORDERABLES Final Result Performing Organization Address City/[facility]/ZIP Co de Phone Number [facility] Department of [employer] [place] [address] * IR Biopsy Deep Bone (02/07/2024 11:29 AM SUPERVISOR TYPESETTING) Anatomical Region Laterality Modality Body N/A Computed Tomogra phy 02/07/2024 1:23 PM SUPERVISOR TYPESETTING Impressions 02/07/2024 5:11 PM SUPERVISOR TYPESETTING Coccygeal bone biopsy under CT guidance. The core specimens were sent to surgical pathology and microbiology. Aspirate was sent to microbiology. Dictated by: Craig Sheppard M.D. The radiology attending physician has personally reviewed this study, and had reviewed and/or edited this written report and agrees with it. 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 Jorge Carolina MD, PHD, the attending radiologist, was present from the beginning to the end of the procedure. Dr. Ness (academic vice president) was present and participated in [...] was obtained. Prior to beginning the procedure, [place] Protocol was performed to confirm the patient's [...] the end of the procedure. Dr. Ness (academic vice president) was present and participated in [...] was obtained. Prior to beginning the procedure, [place] Protocol was performed to confirm the patient's [...] esult * Surgical pathology (02/07/2024 11:15 AM SUPERVISOR TYPESETTING) Bone biopsy, metabolic disease 02/07/2024 11:15 AM SUPERVISOR TYPESETTING 02/07/2024 2:18 PM SUPERVISOR TYPESETTING Narrative 02/09/2024 10:35 AM SUPERVISOR TYPESETTING EPIC results best viewed via link to PDF [facility] [place] [address] Note to Patients: This report may contain [...] Gender: F : 1985 (Age: 38) Address: [address] [place] [address] Hospital #: [id number] Taken:02/07/2024 Received:02/07/2024 Reported: 02/09/2024 Patient Type: [facility] Inpatient Service: Medical Location: [place] [address] Physician(s): Jorge Carolina M.D. Barbara Oliva MD [...] Surgical Pathology and Flow Cytometry Departments at [facility] as part of an ongoing supervisor type disk quality control program and in compliance with federally mandated [...] Surgical Pathology and Flow Cytometry Departments of [facility]. It has not been cleared or approved by the U. S. Food and Drug Administration. IMAGES AND SCANNED DOCUMENTS, IF INCLUDED, ONLY VIEWABLE IN PDF VERSION OF REPORT Jorge Carolina MD PhD LAB PATHOLOGY ORDER [place] Final Result * POCT glucose (02/07/2024 8:36 AM SUPERVISOR TYPESETTING) Glucose, POC 79 70 - 199 mg/dL Blood 02/07/2024 8:36 AM SUPERVISOR TYPESETTING 02/07/2024 8:36 AM SUPERVISOR TYPESETTING Kassidy Pinzon MD LAB POCT ORDERABLES - DEVIC E Final Result Performing Organization Address [facility] Co de Phone Number [facility] [employer] [place] [address] * POCT glucose (02/07/2024 7:46 AM SUPERVISOR TYPESETTING) [facility] Glucose, POC 83 70 - 199 mg/dL Blood 02/07/2024 7:46 AM SUPERVISOR TYPESETTING 02/07/2024 7:46 AM SUPERVISOR TYPESETTING Kassidy Pinzon MD LAB POCT ORDERABLES - DEVIC E Final Result Performing Organization Address [facility] de Phone Number [facility] [employer] [place] [address] * (ABNORMAL) Vancomycin level trough Draw trough 30 minutes prior to 4th dose. (02/07/2024 2:37 AM SUPERVISOR TYPESETTING) [facility] Vancomycin trough 24.3(H) 10.0 - 20.0 mcg/mL Blood 02/07/2024 2:37 AM SUPERVISOR TYPESETTING 02/07/2024 3:13 AM SUPERVISOR TYPESETTING Narrative [facility] - 02/07/2024 3:44 AM SUPERVISOR TYPESETTING Draw trough 30 minutes prior to 4th dose. Carin Granados MD LAB BLOOD ORDERABLES Tete l Result Performing Organization Address [facility] [place] [address] * eGFR (02/06/2024 9:36 PM SUPERVISOR TYPESETTING) [facility] eGFR 71 >=60 mL/min/1. 73 m2 [...] last reviewed 2021. Blood 02/06/2024 9:36 PM SUPERVISOR TYPESETTING 02/06/2024 11:02 PM SUPERVISOR TYPESETTING Carin Granados MD LAB BLOOD ORDERABLES Tete palomino Result [facility] Department [place] [address] * Differential, auto (02/06/2024 9:36 PM SUPERVISOR TYPESETTING) Pathologist [facility] Neutrophil abs 3.8 1.5 - 6.5 K/cumm Imm gran abs 0.0 0.0 - 0.1 K/cumm [facility] Lymphocyte abs 0.9 0.8 - 3.3 K/cumm [facility] Monocyte abs 0.6 0.2 - 0.8 K/cumm [facility] Eosinophil abs 0.3 0.0 - 0.5 K/cumm [facility] Basophil abs 0.0 0.0 - 0.1 K/cumm [facility] Neutrophil pct 68.0 % [facility] Comment: Interpretive Data Percent cell count [...] revised on 2017. Lymphocyte pct 16.0 % [facility] Comment: Interpretive Data Percent cell count reference ranges are not reported, since discordance with absolute values may lead to misinterpretation of CBC data. Current Interpretive Data was last revised on 2017. Monocyte pct 10.8 % [facility] Comment: Interpretive Data Percent cell count reference ranges are not reported, since discordance with absolute values may lead to misinterpretation of CBC data. Current Interpretive Data was last revised on 2017. Eosinophil pct 4.8 % [facility] Comment: Interpretive Data Percent cell count reference ranges are not reported, since discordance with absolute values may lead to misinterpretation of CBC data. Current Interpretive Data was last revised on 2017. Basophil pct 0.2 % [facility] Comment: Interpretive Data Percent cell count reference ranges are not reported, since discordance with absolute values may lead to misinterpretation of CBC data. Current Interpretive Data was last revised on 2017. Blood 02/06/2024 9:36 PM SUPERVISOR TYPESETTING 02/06/2024 11:03 PM SUPERVISOR TYPESETTING us Carin Granados MD LAB BLOOD ORDERABLES Tete palomino Result [facility] Department [place] [address] * (ABNORMAL) CBC with auto differential (02/06/2024 9:36 PM SUPERVISOR TYPESETTING) WBC 5.6 3.8 - 9.9 K/cumm Hgb 8.1(L) 11.9 - 15.5 g/dL [facility] Hct 25.1(L) 35.6 - 45.5 % [facility] Plt 226 150 - 400 K/cumm [facility] MPV 9.6 9.1 - 12.3 fL [facility] RBC 3.03(L) 3.90 - 5.20 M/cumm [facility] MCV 82.8 81.3 - 96.4 fL [facility] MCH 26.7(L) 27.1 - 33.3 pg [facility] MCHC 32.3 32.3 - 35.7 g/dL [facility] RDW CV 13.5 11.1 - 14.9 % [facility] RDW SD 41.0 35.7 - 48.1 fL [facility] NRBC abs 0.00 0.00 - 0.01 K/cumm [facility] Blood 02/06/2024 9:36 PM SUPERVISOR TYPESETTING 02/06/2024 11:03 PM SUPERVISOR TYPESETTING Carin Granados MD LAB BLOOD ORDERABLES Tete l Result Performing Organization Address City/[facility] Co de Phone Number [facility] Department [place] [address] * Phosphorus (02/06/2024 9:36 PM SUPERVISOR TYPESETTING) Phosphorus, pl 4.5 2.3 - 4.5 mg/dL Blood 02/06/2024 9:36 PM SUPERVISOR TYPESETTING 02/06/2024 11:02 PM SUPERVISOR TYPESETTING Carin Granados MD LAB BLOOD ORDERABLES Tete l Result Performing Organization Address City/[facility]/ZIP Co de Phone Number [facility] Department [place] [address] * Magnesium (02/06/2024 9:36 PM SUPERVISOR TYPESETTING) Magnesium 2.1 1.4 - 2.5 mg/dL Blood 02/06/2024 9:36 PM SUPERVISOR TYPESETTING 02/06/2024 11:02 PM SUPERVISOR TYPESETTING Carin Granados MD LAB BLOOD ORDERABLES Tete l Result Performing Organization Address City/[facility]/ZIP Co de Phone Number [facility] Department [place] [address] * (ABNORMAL) Hepatic function panel (02/06/2024 9:36 PM SUPERVISOR TYPESETTING) [facility] Bilirubin, total 1.0 0.1 - 1.2 mg/dL Bilirubin, direct 0.3 0.1 - 0.3 mg/dL [facility] Protein, pl 6.9 6.5 - 8.5 g/dL [facility] Albumin 2.8(L) 3.5 - 5.0 g/dL [facility] Alk phos 316(H) 40 - 130 Units/L [facility] ALT 30 7 - 45 Units/L [facility] AST 80(H) 10 - 45 Units/L [facility] Blood 02/06/2024 9:36 PM SUPERVISOR TYPESETTING 02/06/2024 11:02 PM SUPERVISOR TYPESETTING Carin Granados MD LAB BLOOD ORDERABLES Tete l Result [facility] Department [place] [address] * Basic metabolic panel (02/06/2024 9:36 PM SUPERVISOR TYPESETTING) [facility] Sodium 135 135 - 145 mmol/L Potassium, pl 4.9 3.3 - 4.9 mmol/L [facility] Chloride 100 97 - 110 mmol/L [facility] CO2 31 22 - 32 mmol/L [facility] Anion gap 4 2 - 15 mmol/L [facility] BUN 24 6 - 25 mg/dL [facility] Creatinine 1.04 0.60 - 1.10 mg/dL [facility] Glucose 83 70 - 199 mg/dL [facility] Comment: Interpretive Data Fasting glucose >/= [...] 2022. Calcium 9.0 8.5 - 10.3 mg/dL [facility] Blood 02/06/2024 9:36 PM SUPERVISOR TYPESETTING 02/06/2024 11:02 PM SUPERVISOR TYPESETTING Carin Granados MD LAB BLOOD ORDERABLES Tete l Result [facility] [employer] [place] [address] * POCT glucose (02/06/2024 9:32 PM SUPERVISOR TYPESETTING) Glucose, POC 111 70 - 199 mg/dL Blood 02/06/2024 9:32 PM SUPERVISOR TYPESETTING 02/06/2024 9:32 PM SUPERVISOR TYPESETTING Carin Granados MD LAB POCT ORDERABLES - DEV ICE Final Result Performing Organization Address City/[facility]/ZIP Co de Phone Number [facility] [employer] [place] [address] * POCT glucose (02/06/2024 5:33 PM SUPERVISOR TYPESETTING) Glucose, POC 90 70 - 199 mg/dL Blood 02/06/2024 5:33 PM SUPERVISOR TYPESETTING 02/06/2024 5:33 PM SUPERVISOR TYPESETTING Carin Granados MD LAB POCT ORDERABLES - DEV ICE Final Result Performing Organization Address City/[facility] Co de Phone Number [facility] [employer] [place] [address] * POCT glucose (02/06/2024 11:52 AM SUPERVISOR TYPESETTING) Glucose, POC 104 70 - 199 mg/dL Blood 02/06/2024 11:5 2 AM SUPERVISOR TYPESETTING 02/06/2024 11:52 AM SUPERVISOR TYPESETTING us Carin Granados MD LAB POCT ORDERABLES - DEV ICE Final Result Performing Organization Address [facility] de Phone Number [facility] [employer] [place] [address] * POCT glucose (02/06/2024 8:16 AM SUPERVISOR TYPESETTING) Pathologist [facility] Glucose, POC 89 70 - 199 mg/dL Blood 02/06/2024 8:16 AM SUPERVISOR TYPESETTING 02/06/2024 8:16 AM SUPERVISOR TYPESETTING us Carin Granados MD LAB POCT ORDERABLES - DEV ICE Final Result Performing Organization Address [facility] [place] [address] * Troponin I high-sensitivity series (baseline, 2hr, 4hr, 6hr) (02/06/2024 6:53 AM SUPERVISOR TYPESETTING) [facility] Trop I hs <4 <=17 ng/L Comment: Interpretive Data For further hscTnI resources including the diagnostic algorithm and an aid in interpretation, copy and paste this link: https://bjhlab.testcatalog.org/show/[email or web address] Current Interpretive Data last revised 2019. Blood 02/06/2024 6:53 AM SUPERVISOR TYPESETTING 02/06/2024 7:52 AM SUPERVISOR TYPESETTING us Herrera Orosco MD LAB BLOOD ORDERABLES Final Resu lt Performing Organization Address [facility] [place] [address] * eGFR (02/05/2024 10:32 PM SUPERVISOR TYPESETTING) [facility] eGFR 67 >=60 mL/min/1. 73 m2 [...] reviewed 2021. Blood 02/05/2024 10:3 2 PM SUPERVISOR TYPESETTING 02/05/2024 11:39 PM SUPERVISOR TYPESETTING us Carin Granados MD LAB BLOOD ORDERABLES Tete palomino Result [facility] Department [place] [address] * Differential, auto (02/05/2024 10:32 PM SUPERVISOR TYPESETTING) Neutrophil abs 4.1 1.5 - 6.5 K/cumm Imm gran abs 0.0 0.0 - 0.1 K/cumm [facility] Lymphocyte abs 0.9 0.8 - 3.3 K/cumm [facility] Monocyte abs 0.8 0.2 - 0.8 K/cumm [facility] Eosinophil abs 0.3 0.0 - 0.5 K/cumm [facility] Basophil abs 0.0 0.0 - 0.1 K/cumm [facility] Neutrophil pct 67.2 % [facility] Comment: Interpretive Data Percent cell count reference ranges are not reported, since discordance with absolute values may lead to misinterpretation of CBC data. Current Interpretive Data was last revised on 2017. Imm gran pct 0.3 % [facility] Comment: Interpretive Data Percent cell count reference ranges are not reported, since discordance with absolute values may lead to misinterpretation of CBC data. Current Interpretive Data was last revised on 2017. Lymphocyte pct 15.0 % [facility] Comment: Interpretive Data Percent cell count reference ranges are not reported, since discordance with absolute values may lead to misinterpretation of CBC data. Current Interpretive Data was last revised on 2017. Monocyte pct 12.3 % [facility] Comment: Interpretive Data Percent cell count reference ranges are not reported, since discordance with absolute values may lead to misinterpretation of CBC data. Current Interpretive Data was last revised on 2017. Eosinophil pct 4.9 % [facility] Comment: Interpretive Data Percent cell count reference ranges are not reported, since discordance with absolute values may lead to misinterpretation of CBC data. Current Interpretive Data was last revised on 2017. Basophil pct 0.3 % [facility] Comment: Interpretive Data Percent cell count reference ranges are not reported, since discordance with absolute values may lead to misinterpretation of CBC data. Current Interpretive Data was last revised on 2017. Blood 02/05/2024 10:3 2 PM SUPERVISOR TYPESETTING 02/05/2024 11:27 PM SUPERVISOR TYPESETTING us Carin Granados MD LAB BLOOD ORDERABLES Tete palomino Result [facility] Department [place] [address] * (ABNORMAL) CBC with auto differential (02/05/2024 10:32 PM SUPERVISOR TYPESETTING) WBC 6.1 3.8 - 9.9 K/cumm Hgb 7.7(L) 11.9 - 15.5 g/dL [facility] Hct 24.4(L) 35.6 - 45.5 % [facility] Plt 228 150 - 400 K/cumm [facility] MPV 9.8 9.1 - 12.3 fL [facility] RBC 2.94(L) 3.90 - 5.20 M/cumm [facility] MCV 83.0 81.3 - 96.4 fL [facility] MCH 26.2(L) 27.1 - 33.3 pg [facility] MCHC 31.6(L) 32.3 - 35.7 g/dL [facility] RDW CV 13.8 11.1 - 14.9 % [facility] RDW SD 42.0 35.7 - 48.1 fL [facility] NRBC abs 0.00 0.00 - 0.01 K/cumm [facility] Blood 02/05/2024 10:3 2 PM SUPERVISOR TYPESETTING 02/05/2024 11:27 PM SUPERVISOR TYPESETTING Carin Granados MD LAB BLOOD ORDERABLES Tete l Result Performing Organization Address [facility] de Phone Number [facility] Department [place] [address] * Phosphorus (02/05/2024 10:32 PM SUPERVISOR TYPESETTING) Phosphorus, pl 3.9 2.3 - 4.5 mg/dL Blood 02/05/2024 10:3 2 PM SUPERVISOR TYPESETTING 02/05/2024 11:39 PM SUPERVISOR TYPESETTING Result [facility] Carin Granados MD LAB BLOOD ORDERABLES Tete l Result Performing Organization Address [facility] de Phone Number [facility] Department [place] [address] * Magnesium (02/05/2024 10:32 PM SUPERVISOR TYPESETTING) Magnesium 2.5 1.4 - 2.5 mg/dL Blood 02/05/2024 10:3 2 PM SUPERVISOR TYPESETTING 02/05/2024 11:39 PM SUPERVISOR TYPESETTING Carin Granados MD LAB BLOOD ORDERABLES Tete l Result Performing Organization Address City/[facility] Co de Phone Number [facility] Department [place] [address] * (ABNORMAL) Hepatic function panel (02/05/2024 10:32 PM SUPERVISOR TYPESETTING) [facility] Bilirubin, total 0.8 0.1 - 1.2 mg/dL Bilirubin, direct 0.3 0.1 - 0.3 mg/dL [facility] Protein, pl 6.6 6.5 - 8.5 g/dL [facility] Albumin 2.7(L) 3.5 - 5.0 g/dL [facility] Alk phos 288(H) 40 - 130 Units/L [facility] ALT 25 7 - 45 Units/L [facility] AST 65(H) 10 - 45 Units/L [facility] Blood 02/05/2024 10:3 2 PM SUPERVISOR TYPESETTING 02/05/2024 11:39 PM SUPERVISOR TYPESETTING Carin Granados MD LAB BLOOD ORDERABLES Tete l Result Performing Organization Address City/[facility]/ZIP Co de Phone Number [facility] Department [place] [address] * (ABNORMAL) Basic metabolic panel (02/05/2024 10:32 PM SUPERVISOR TYPESETTING) [facility] Sodium 139 135 - 145 mmol/L Potassium, pl 5.4(H) 3.3 - 4.9 mmol/L [facility] Chloride 101 97 - 110 mmol/L [facility] CO2 30 22 - 32 mmol/L [facility] Anion gap 8 2 - 15 mmol/L [facility] BUN 30(H) 6 - 25 mg/dL [facility] Creatinine 1.08 0.60 - 1.10 mg/dL [facility] Glucose 125 70 - 199 mg/dL [facility] Comment: Interpretive Data Fasting glucose >/= [...] 2022. Calcium 8.9 8.5 - 10.3 mg/dL [facility] Blood 02/05/2024 10:3 2 PM SUPERVISOR TYPESETTING 02/05/2024 11:39 PM SUPERVISOR TYPESETTING Carin Granados MD LAB BLOOD ORDERABLES Tete l Result Performing Organization Address City/[facility]/ZIP Co de Phone Number [facility] Department of [employer] [place] [address] * POCT glucose (02/05/2024 9:13 PM SUPERVISOR TYPESETTING) Glucose, POC 171 70 - 199 mg/dL Blood 02/05/2024 9:13 PM SUPERVISOR TYPESETTING 02/05/2024 9:13 PM SUPERVISOR TYPESETTING Carin Granados MD LAB POCT ORDERABLES - DEV ICE Final Result Performing Organization Address City/[facility] Co de Phone Number [facility] Department [place] [address] * POCT glucose (02/05/2024 5:38 PM SUPERVISOR TYPESETTING) Glucose, POC 149 70 - 199 mg/dL Blood 02/05/2024 5:38 PM SUPERVISOR TYPESETTING 02/05/2024 5:38 PM SUPERVISOR TYPESETTING Carin Granados MD LAB POCT ORDERABLES - DEV ICE Final Result [facility] Department [place] [address] * Blood culture Blood (02/05/2024 3:25 PM SUPERVISOR TYPESETTING) Report Final Report: No growth Blood 02/05/2024 3:25 PM SUPERVISOR TYPESETTING 02/05/2024 4:30 PM SUPERVISOR TYPESETTING Narrative [facility] - 02/10/2024 7:00 AM SUPERVISOR TYPESETTING Collection->Peripheral 1. Blood cultures are incubated for [...] organism identification may be performed using the [employer] Concept[employer] Gram-Positive Blood Culture Assay. This assay detects microbial DNA in positive blood culture broth via hybridization of target DNA to capture oligonucleotides on a microarray. This assay has been cleared by the [place] Food and Drug Administration and its performance characteristics have been verified by the [facility]. 5. For questions about this culture, contact the Microbiology Laboratory at [phone]. Interpretive data was last revised on 2019. Carin Granados MD LAB MICROBIOLOGY - GENERA L ORDERABLES Final Result [facility] [place] [address] * Blood culture Blood (02/05/2024 3:25 PM SUPERVISOR TYPESETTING) Report Final Report: No growth Blood 02/05/2024 3:25 PM SUPERVISOR TYPESETTING 02/05/2024 4:30 PM SUPERVISOR TYPESETTING Narrative [facility] - 02/10/2024 7:00 AM SUPERVISOR TYPESETTING Collection->Peripheral 1. Blood cultures are incubated for [...] organism identification may be performed using the [employer] Gram-Positive Blood Culture Assay. This assay detects microbial DNA in positive blood culture broth via hybridization of target DNA to capture oligonucleotides on a microarray. This assay has been cleared by the [place] Food and Drug Administration and its performance characteristics have been verified by the [facility]. 5. For questions about this culture, contact the Microbiology Laboratory at [phone]. Interpretive data was last revised on 2019. Carin Granados MD LAB MICROBIOLOGY - GENERA L ORDERABLES Final Result Performing Organization Address [facility] Co de Phone Number [facility] Department [place] [address] * POCT glucose (02/05/2024 2:10 PM SUPERVISOR TYPESETTING) Glucose, POC 170 70 - 199 mg/dL Blood 02/05/2024 2:10 PM SUPERVISOR TYPESETTING 02/05/2024 2:10 PM SUPERVISOR TYPESETTING Carin Granados MD LAB POCT ORDERABLES - DEV ICE Final Result Performing Organization Address [facility] Co de Phone Number [facility] Department [place] [address] * POCT glucose (02/05/2024 9:18 AM SUPERVISOR TYPESETTING) Glucose, POC 88 70 - 199 mg/dL Blood 02/05/2024 9:18 AM SUPERVISOR TYPESETTING 02/05/2024 9:18 AM SUPERVISOR TYPESETTING us Carin Granados MD LAB POCT ORDERABLES - DEV ICE Final Result Performing Organization Address City/State/[facility] Co de Phone Number [facility] Department [place] [address] * Wound Care (02/05/2024 8:16 AM SUPERVISOR TYPESETTING) Narrative Sari Santos DO - 02/05/2024 8:16 AM SUPERVISOR TYPESETTING Andrew Seaman MD 02/05/2024 8:21 AM Wound Care Date/Time: 02/05/2024 8:16 AM Performed by: Andrew Seaman MD Authorized by: Andrew Seaman MD Associated wounds: Wound 12/04/23 Pressure Injury Sacrum Consent: Consent obtained: Verbal Consent given by: Patient Risks, benefits, and alternatives were discussed: yes Risks discussed: Bleeding and infection Alternatives discussed: No treatment [place] protocol: Procedure explained and questions answered to [...] (ABNORMAL) Potassium, whole blood (02/05/2024 8:08 AM SUPERVISOR TYPESETTING) Potassium, bld 5.4(H) 3.3 - 4.9 mmol/L Blood 02/05/2024 8:08 AM SUPERVISOR TYPESETTING 02/05/2024 8:48 AM SUPERVISOR TYPESETTING Ashkan Reyes MD LAB BLOOD ORDERABLES Final Result Performing Organization Address City/[facility]/ZIP Co de Phone Number [facility] Department [place] [address] * (ABNORMAL) Potassium (02/05/2024 7:45 AM SUPERVISOR TYPESETTING) Potassium, pl 5.2(H) 3.3 - 4.9 mmol/L Blood 02/05/2024 7:45 AM SUPERVISOR TYPESETTING 02/05/2024 8:12 AM SUPERVISOR TYPESETTING Narrative [facility] - 02/05/2024 8:32 AM SUPERVISOR TYPESETTING Provider to discontinue after two normal results. Ashkan Reyes MD LAB BLOOD ORDERABLES Final Result Performing Organization Address City/[facility] Co de Phone Number [facility] Department [place] [address] * POCT glucose (02/05/2024 6:00 AM SUPERVISOR TYPESETTING) Glucose, POC 124 70 - 199 mg/dL Blood 02/05/2024 6:00 AM SUPERVISOR TYPESETTING 02/05/2024 6:00 AM SUPERVISOR TYPESETTING Carin Granados MD LAB POCT ORDERABLES - DEV ICE Final Result Performing Organization Address City/[facility] Co de Phone Number [facility] [place] [address] * POCT glucose (02/05/2024 5:04 AM SUPERVISOR TYPESETTING) Glucose, POC 119 70 - 199 mg/dL Blood 02/05/2024 5:04 AM SUPERVISOR TYPESETTING 02/05/2024 5:04 AM SUPERVISOR TYPESETTING us Carin Granados MD LAB POCT ORDERABLES - DEV ICE Final Result Performing Organization Address [facility] de Phone Number [facility] [place] [address] * POCT glucose (02/05/2024 4:11 AM SUPERVISOR TYPESETTING) Glucose, POC 105 70 - 199 mg/dL Blood 02/05/2024 4:11 AM SUPERVISOR TYPESETTING 02/05/2024 4:11 AM SUPERVISOR TYPESETTING Carin Granados MD LAB POCT ORDERABLES - DEV ICE Final Result Performing Organization Address [facility] de Phone Number [facility] [place] [address] * ECG 12 lead (02/05/2024 3:22 AM SUPERVISOR TYPESETTING) Ventricular Rate EKG/Min 101 BPM [facility] Atrial Rate 101 BPM [facility] AR-Interval (MSEC) 148 ms [facility] QRS-Interval (MSEC) 82 ms [facility] QT-Interval (MSEC) 338 ms [facility] QTc 438 ms [facility] P [place] 67 degrees [facility] R [place] 21 degrees [facility] T [place] 48 degrees [facility] Diagnosis Sinus tachycardia Otherwise normal ECG When compared with ECG of 21-JAN-2024 15:37, T wave amplitude has increased in Anterior leads Confirmed by KIRSTIN GIVENS M.D ([id number]) on 02/09/2024 11:54:39 AM [facility] 02/05/2024 3:22 AM SUPERVISOR TYPESETTING 02/09/2024 11:54 AM SUPERVISOR TYPESETTING Ashkan Reyes MD ECG ORDERABLES Final Resu lt Performing Organization Address City/[facility]/ZIP Co de Phone Number [facility] * eGFR (02/04/2024 9:38 PM SUPERVISOR TYPESETTING) eGFR 66 >=60 mL/min/1. 73 m2 Comment: [...] last reviewed 2021. Blood 02/04/2024 9:38 PM SUPERVISOR TYPESETTING 02/04/2024 11:21 PM SUPERVISOR TYPESETTING us Carin Granados MD LAB BLOOD ORDERABLES Tete l Result Performing Organization Address City/[facility] Co de Phone Number [facility] Department [place] [address] * Differential, auto (02/04/2024 9:38 PM SUPERVISOR TYPESETTING) Neutrophil abs 6.2 1.5 - 6.5 K/cumm Imm gran abs 0.1 0.0 - 0.1 K/cumm [facility] Lymphocyte abs 0.9 0.8 - 3.3 K/cumm [facility] Monocyte abs 0.8 0.2 - 0.8 K/cumm [facility] Eosinophil abs 0.4 0.0 - 0.5 K/cumm [facility] Basophil abs 0.0 0.0 - 0.1 K/cumm [facility] Neutrophil pct 74.5 % [facility] Comment: Interpretive Data Percent cell count reference ranges are not reported, since discordance with absolute values may lead to misinterpretation of CBC data. Current Interpretive Data was last revised on 2017. Imm gran pct 0.6 % [facility] Comment: Interpretive Data Percent cell count reference ranges are not reported, since discordance with absolute values may lead to misinterpretation of CBC data. Current Interpretive Data was last revised on 2017. Lymphocyte pct 10.9 % [facility] Comment: Interpretive Data Percent cell count reference ranges are not reported, since discordance with absolute values may lead to misinterpretation of CBC data. Current Interpretive Data was last revised on 2017. Monocyte pct 9.2 % [facility] Comment: Interpretive Data Percent cell count reference ranges are not reported, since discordance with absolute values may lead to misinterpretation of CBC data. Current Interpretive Data was last revised on 2017. Eosinophil pct 4.4 % [facility] Comment: Interpretive Data Percent cell count reference ranges are not reported, since discordance with absolute values may lead to misinterpretation of CBC data. Current Interpretive Data was last revised on 2017. Basophil pct 0.4 % [facility] Comment: Interpretive Data Percent cell count reference ranges are not reported, since discordance with absolute values may lead to misinterpretation of CBC data. Current Interpretive Data was last revised on 2017. Blood 02/04/2024 9:38 PM SUPERVISOR TYPESETTING 02/04/2024 11:22 PM SUPERVISOR TYPESETTING us Carin Granados MD LAB BLOOD ORDERABLES Tete palomino Result [facility] Department [place] [address] * (ABNORMAL) CBC with auto differential (02/04/2024 9:38 PM SUPERVISOR TYPESETTING) WBC 8.3 3.8 - 9.9 K/cumm Hgb 7.9(L) 11.9 - 15.5 g/dL [facility] Hct 25.1(L) 35.6 - 45.5 % [facility] Plt 252 150 - 400 K/cumm [facility] MPV 10.4 9.1 - 12.3 fL [facility] RBC 2.97(L) 3.90 - 5.20 M/cumm [facility] MCV 84.5 81.3 - 96.4 fL [facility] MCH 26.6(L) 27.1 - 33.3 pg [facility] MCHC 31.5(L) 32.3 - 35.7 g/dL [facility] RDW CV 14.1 11.1 - 14.9 % [facility] RDW SD 43.5 35.7 - 48.1 fL [facility] NRBC abs 0.00 0.00 - 0.01 K/cumm [facility] Blood 02/04/2024 9:38 PM SUPERVISOR TYPESETTING 02/04/2024 11:22 PM SUPERVISOR TYPESETTING Carin Granados MD LAB BLOOD ORDERABLES Tete l Result [facility] Department of [employer] [place], [place] [id number] * Phosphorus (02/04/2024 9:38 PM SUPERVISOR TYPESETTING) Pathologist [facility] Phosphorus, pl 3.4 2.3 - 4.5 mg/dL Blood 02/04/2024 9:38 PM SUPERVISOR TYPESETTING 02/04/2024 11:21 PM SUPERVISOR TYPESETTING Carin Granados MD LAB BLOOD ORDERABLES Tete l Result [facility] [employer] [place] [address] * (ABNORMAL) Magnesium (02/04/2024 9:38 PM SUPERVISOR TYPESETTING) Magnesium 2.6(H) 1.4 - 2.5 mg/dL Blood 02/04/2024 9:38 PM SUPERVISOR TYPESETTING 02/04/2024 11:21 PM SUPERVISOR TYPESETTING us Carin Granados MD LAB BLOOD ORDERABLES Tete l Result Performing Organization Address [facility] Co de Phone Number [facility] [place] [address] * (ABNORMAL) Hepatic function panel (02/04/2024 9:38 PM SUPERVISOR TYPESETTING) Pathologist [facility] Bilirubin, total 0.8 0.1 - 1.2 mg/dL Bilirubin, direct 0.2 0.1 - 0.3 mg/dL [facility] Comment:Reviewed Protein, pl 6.6 6.5 - 8.5 g/dL [facility] Albumin 2.5(L) 3.5 - 5.0 g/dL [facility] Alk phos 268(H) 40 - 130 Units/L [facility] ALT 17 7 - 45 Units/L [facility] AST 61(H) 10 - 45 Units/L [facility] Blood 02/04/2024 9:38 PM SUPERVISOR TYPESETTING 02/04/2024 11:21 PM SUPERVISOR TYPESETTING us Carin Granados MD LAB BLOOD ORDERABLES Tete l Result Performing Organization Address [facility] de Phone Number [facility] Department [place] [address] * (ABNORMAL) Basic metabolic panel (02/04/2024 9:38 PM SUPERVISOR TYPESETTING) Pathologist [facility] Sodium 137 135 - 145 mmol/L Potassium, pl 5.9(H) 3.3 - 4.9 mmol/L [facility] Chloride 103 97 - 110 mmol/L [facility] CO2 28 22 - 32 mmol/L [facility] Anion gap 6 2 - 15 mmol/L [facility] BUN 35(H) 6 - 25 mg/dL [facility] Creatinine 1.10 0.60 - 1.10 mg/dL [facility] Glucose 92 70 - 199 mg/dL [facility] Comment: Interpretive Data Fasting glucose >/= [...] 2022. Calcium 8.5 8.5 - 10.3 mg/dL [facility] Blood 02/04/2024 9:38 PM SUPERVISOR TYPESETTING 02/04/2024 11:21 PM SUPERVISOR TYPESETTING Carin Granados MD LAB BLOOD ORDERABLES Tete l Result Performing Organization Address [facility] de Phone Number [facility] Department [place] [address] * POCT glucose (02/04/2024 9:04 PM SUPERVISOR TYPESETTING) Glucose, POC 105 70 - 199 mg/dL Blood 02/04/2024 9:04 PM SUPERVISOR TYPESETTING 02/04/2024 9:04 PM SUPERVISOR TYPESETTING Result [facility] Carin Granados MD LAB POCT ORDERABLES - DEV ICE Final Result Performing Organization Address [facility] de Phone Number [facility] Department of [employer] [place] [address] * POCT glucose (02/04/2024 5:12 PM SUPERVISOR TYPESETTING) Glucose, POC 108 70 - 199 mg/dL Blood 02/04/2024 5:12 PM SUPERVISOR TYPESETTING 02/04/2024 5:12 PM SUPERVISOR TYPESETTING Carin Granados MD LAB POCT ORDERABLES - DEV ICE Final Result Performing Organization Address [facility] de Phone Number [facility] [employer] [place] [address] * POCT glucose (02/04/2024 11:56 AM SUPERVISOR TYPESETTING) Glucose, POC 104 70 - 199 mg/dL Blood 02/04/2024 11:5 6 AM SUPERVISOR TYPESETTING 02/04/2024 11:56 AM SUPERVISOR TYPESETTING Carin Granados MD LAB POCT ORDERABLES - DEV ICE Final Result Performing Organization Address [facility] [place] [address] * (ABNORMAL) Hemoglobin and hematocrit (02/04/2024 11:16 AM SUPERVISOR TYPESETTING) Pathologist [facility] Hgb 7.8(L) 11.9 - 15.5 g/dL Hct 24.2(L) 35.6 - 45.5 % [facility] Blood 02/04/2024 11:1 6 AM SUPERVISOR TYPESETTING 02/04/2024 12:15 PM SUPERVISOR TYPESETTING Carin Granados MD LAB BLOOD ORDERABLES Tete l Result Performing Organization Address [facility] [place] [address] * MRI Sacrum Coccyx WO Contrast (02/04/2024 10:53 AM SUPERVISOR TYPESETTING) Anatomical Region Laterality Modality Pelvis N/A Magnetic Resonan ce 02/04/2024 1:34 PM SUPERVISOR TYPESETTING Impressions 02/04/2024 2:11 PM SUPERVISOR TYPESETTING 1. 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 2. 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 Dictated by: Patric Schmitt D.O. The radiology attending physician has personally reviewed this study, and had reviewed and/or edited this written report and agrees with it. Electronically signed by: Jayme Page M.D. Narrative 02/04/2024 2:11 PM SUPERVISOR TYPESETTING EXAMINATION: MRI SACRUM COCCYX WO CONTRAST HISTORY: [...] Result * Transfuse RBC (02/04/2024 7:44 AM SUPERVISOR TYPESETTING) Blood Mariano Eid MD BLOOD TRANSFUSION ORDERABLES F inal Result Performing Organization Address [facility] de Phone Number [facility] Department of [employer] [place] [address] * POCT glucose (02/04/2024 7:44 AM SUPERVISOR TYPESETTING) Glucose, POC 107 70 - 199 mg/dL Blood 02/04/2024 7:44 AM SUPERVISOR TYPESETTING 02/04/2024 7:44 AM SUPERVISOR TYPESETTING Carin Granados MD LAB POCT ORDERABLES - DEV ICE Final Result Performing Organization Address [facility] de Phone Number [facility] Department of [employer] [place] [address] * Type and screen (02/04/2024 1:27 AM SUPERVISOR TYPESETTING) ABO Rh O Positive Ruiz, indirect Negative [facility] Blood 02/04/2024 1:27 AM SUPERVISOR TYPESETTING 02/04/2024 2:20 AM SUPERVISOR TYPESETTING Narrative [facility] - 02/04/2024 3:56 AM SUPERVISOR TYPESETTING Has the patient had Daratumumab or Isatuximab in the past 6 months?->Unknown Mariano Eid MD LAB BLOOD BANK TEST ORDERABLES Final Result Performing Organization Address [facility] Co de Phone Number [facility] [employer] [place] [address] * Prepare RBC: 1 Units (02/04/2024 12:43 AM SUPERVISOR TYPESETTING) Product code [id number] Unit Number [id number]- I [facility] Product Blood Type OPOS [facility] Dispense Status PRESUMED TRANSFUSED [facility] Blood 02/04/2024 12:4 3 AM SUPERVISOR TYPESETTING 02/04/2024 12:43 AM SUPERVISOR TYPESETTING Narrative [facility] - 02/04/2024 4:01 PM SUPERVISOR TYPESETTING Are special requirements needed? (All products are leukoreduced and CMV- safe)- >No Date required:-[id number] LRRBC # of Qldrn-[id number] Reasons:-Hgb <7 g/dL} Mariano Eid MD BLOOD BANK PRODUCT ORDERABLES Final Result Performing Organization Address [facility] Co de Phone Number [facility] [employer] [place] [address] * (ABNORMAL) eGFR (02/03/2024 9:45 PM SUPERVISOR TYPESETTING) eGFR 58(L) >=60 mL/min/1. 73 m2 Comment: [...] last reviewed 2021. Blood 02/03/2024 9:45 PM SUPERVISOR TYPESETTING 02/03/2024 10:44 PM SUPERVISOR TYPESETTING us Meme Santana MD LAB BLOOD ORDERABLES Fin al Result [facility] Department [place] [address] * Differential, auto (02/03/2024 9:45 PM SUPERVISOR TYPESETTING) Neutrophil abs 4.8 1.5 - 6.5 K/cumm Imm gran abs 0.0 0.0 - 0.1 K/cumm [facility] Lymphocyte abs 1.0 0.8 - 3.3 K/cumm [facility] Monocyte abs 0.8 0.2 - 0.8 K/cumm [facility] Eosinophil abs 0.2 0.0 - 0.5 K/cumm [facility] Basophil abs 0.0 0.0 - 0.1 K/cumm [facility] Neutrophil pct 70.6 % [facility] Comment: Interpretive Data Percent cell count reference ranges are not reported, since discordance with absolute values may lead to misinterpretation of CBC data. Current Interpretive Data was last revised on 2017. Imm gran pct 0.4 % [facility] Comment: Interpretive Data Percent cell count reference ranges are not reported, since discordance with absolute values may lead to misinterpretation of CBC data. Current Interpretive Data was last revised on 2017. Lymphocyte pct 14.7 % [facility] Comment: Interpretive Data Percent cell count reference ranges are not reported, since discordance with absolute values may lead to misinterpretation of CBC data. Current Interpretive Data was last revised on 2017. Monocyte pct 11.0 % [facility] Comment: Interpretive Data Percent cell count reference ranges are not reported, since discordance with absolute values may lead to misinterpretation of CBC data. Current Interpretive Data was last revised on 2017. Eosinophil pct 3.2 % [facility] Comment: Interpretive Data Percent cell count reference ranges are not reported, since discordance with absolute values may lead to misinterpretation of CBC data. Current Interpretive Data was last revised on 2017. Basophil pct 0.1 % [facility] Comment: Interpretive Data Percent cell count reference ranges are not reported, since discordance with absolute values may lead to misinterpretation of CBC data. Current Interpretive Data was last revised on 2017. Blood 02/03/2024 9:45 PM SUPERVISOR TYPESETTING 02/03/2024 10:44 PM SUPERVISOR TYPESETTING us Meme Santana MD LAB BLOOD ORDERABLES Fin al Result [facility] Department [place] [address] * (ABNORMAL) CBC with auto differential (02/03/2024 9:45 PM SUPERVISOR TYPESETTING) Pathologist [facility] WBC 6.8 3.8 - 9.9 K/cumm Hgb 6.7(L) 11.9 - 15.5 g/dL [facility] Hct 21.5(L) 35.6 - 45.5 % [facility] Plt 194 150 - 400 K/cumm [facility] MPV 10.3 9.1 - 12.3 fL [facility] RBC 2.56(L) 3.90 - 5.20 M/cumm [facility] MCV 84.0 81.3 - 96.4 fL [facility] MCH 26.2(L) 27.1 - 33.3 pg [facility] MCHC 31.2(L) 32.3 - 35.7 g/dL [facility] RDW CV 14.2 11.1 - 14.9 % [facility] RDW SD 43.0 35.7 - 48.1 fL [facility] NRBC abs 0.00 0.00 - 0.01 K/cumm [facility] Blood 02/03/2024 9:45 PM SUPERVISOR TYPESETTING 02/03/2024 10:44 PM SUPERVISOR TYPESETTING Carin Granados MD LAB BLOOD ORDERABLES Tete l Result Performing Organization Address [facility] Co de Phone Number [facility] [place] [address] * Phosphorus (02/03/2024 9:45 PM SUPERVISOR TYPESETTING) Phosphorus, pl 3.6 2.3 - 4.5 mg/dL Blood 02/03/2024 9:45 PM SUPERVISOR TYPESETTING 02/03/2024 10:44 PM SUPERVISOR TYPESETTING Carin Granados MD LAB BLOOD ORDERABLES Tete l Result Performing Organization Address [facility] de Phone Number [facility] [place] [address] * (ABNORMAL) Magnesium (02/03/2024 9:45 PM SUPERVISOR TYPESETTING) Pathologist [facility] Magnesium 2.9(H) 1.4 - 2.5 mg/dL Blood 02/03/2024 9:45 PM SUPERVISOR TYPESETTING 02/03/2024 10:44 PM SUPERVISOR TYPESETTING Result [facility] Carin Granados MD LAB BLOOD ORDERABLES Tete l Result Performing Organization Address [facility] Co de Phone Number [facility] [place] [address] * (ABNORMAL) Hepatic function panel (02/03/2024 9:45 PM SUPERVISOR TYPESETTING) Bilirubin, total 0.6 0.1 - 1.2 mg/dL Bilirubin, direct <0.2 0.1 - 0.3 mg/dL [facility] Comment:Reviewed Protein, pl 6.1(L) 6.5 - 8.5 g/dL [facility] Albumin 2.4(L) 3.5 - 5.0 g/dL [facility] Alk phos 228(H) 40 - 130 Units/L [facility] ALT 16 7 - 45 Units/L [facility] AST 36 10 - 45 Units/L [facility] Blood 02/03/2024 9:45 PM SUPERVISOR TYPESETTING 02/03/2024 10:44 PM SUPERVISOR TYPESETTING us Carin Granados MD LAB BLOOD ORDERABLES Tete l Result Performing Organization Address [facility]/ZIP Co de Phone Number [facility] Department [place] [address] * (ABNORMAL) Basic metabolic panel (02/03/2024 9:45 PM SUPERVISOR TYPESETTING) Pathologist [facility] Sodium 139 135 - 145 mmol/L Potassium, pl 5.2(H) 3.3 - 4.9 mmol/L [facility] Chloride 104 97 - 110 mmol/L [facility] CO2 30 22 - 32 mmol/L [facility] Anion gap 5 2 - 15 mmol/L [facility] BUN 31(H) 6 - 25 mg/dL [facility] Creatinine 1.22(H) 0.60 - 1.10 mg/dL [facility] Glucose 170 70 - 199 mg/dL [facility] Comment: Interpretive Data Fasting glucose >/= [...] 2022. Calcium 8.2(L) 8.5 - 10.3 mg/dL [facility] Blood 02/03/2024 9:45 PM SUPERVISOR TYPESETTING 02/03/2024 10:44 PM SUPERVISOR TYPESETTING us Carin Granados MD LAB BLOOD [place] [address] * POCT glucose (02/03/2024 9:39 PM SUPERVISOR TYPESETTING) Glucose, POC 190 70 - 199 mg/dL Blood 02/03/2024 9:39 PM SUPERVISOR TYPESETTING 02/03/2024 9:39 PM SUPERVISOR TYPESETTING us Carin Granados MD LAB POCT ORDERABLES - DEV ICE Final Result Performing Organization Address [facility] [place] [address] * POCT glucose (02/03/2024 5:47 PM SUPERVISOR TYPESETTING) Glucose, POC 131 70 - 199 mg/dL Blood 02/03/2024 5:47 PM SUPERVISOR TYPESETTING 02/03/2024 5:47 PM SUPERVISOR TYPESETTING us Carin Granados MD LAB POCT ORDERABLES - DEV ICE Final Result Performing Organization Address [facility] Co de Phone Number [facility] [employer] [place] [address] * POCT glucose (02/03/2024 2:37 PM SUPERVISOR TYPESETTING) Glucose, POC 138 70 - 199 mg/dL Blood 02/03/2024 2:37 PM SUPERVISOR TYPESETTING 02/03/2024 2:37 PM SUPERVISOR TYPESETTING us Carin Granados MD LAB POCT ORDERABLES - DEV ICE Final Result Performing Organization Address [facility] [place] [address] * CT Abdomen Pelvis W Contrast (02/03/2024 10:03 AM SUPERVISOR TYPESETTING) Anatomical Region Laterality Modality Body N/A Computed Tomogra phy 02/03/2024 10:5 0 AM SUPERVISOR TYPESETTING Impressions 02/03/2024 12:25 PM SUPERVISOR TYPESETTING 1. Improving left upper pole and left [...] Zeke Chris M.D. Narrative 02/03/2024 12:25 PM SUPERVISOR TYPESETTING EXAMINATION: Computed tomography of the abdomen and [...] esult * POCT glucose (02/03/2024 9:24 AM SUPERVISOR TYPESETTING) Glucose, POC 131 70 - 199 mg/dL Blood 02/03/2024 9:24 AM SUPERVISOR TYPESETTING 02/03/2024 9:24 AM SUPERVISOR TYPESETTING Carin Granados MD LAB POCT ORDERABLES - DEV ICE Final Result [facility] Department [place] [address] * eGFR (02/02/2024 10:40 PM SUPERVISOR TYPESETTING) Pathologist [facility] eGFR 75 >=60 mL/min/1. 73 m2 Comment: [...] reviewed 2021. Blood 02/02/2024 10:4 0 PM SUPERVISOR TYPESETTING 02/03/2024 12:36 AM SUPERVISOR TYPESETTING us Meme Santana MD LAB BLOOD ORDERABLES Fin al Result [facility] Department [place] [address] * Differential, auto (02/02/2024 10:40 PM SUPERVISOR TYPESETTING) Pathologist [facility] Neutrophil abs 5.7 1.5 - 6.5 K/cumm Imm gran abs 0.0 0.0 - 0.1 K/cumm [facility] Lymphocyte abs 1.1 0.8 - 3.3 K/cumm [facility] Monocyte abs 0.8 0.2 - 0.8 K/cumm [facility] Eosinophil abs 0.3 0.0 - 0.5 K/cumm [facility] Basophil abs 0.0 0.0 - 0.1 K/cumm [facility] Neutrophil pct 71.1 % [facility] Comment: Interpretive Data Percent cell count reference ranges are not reported, since discordance with absolute values may lead to misinterpretation of CBC data. Current Interpretive Data was last revised on 2017. Imm gran pct 0.4 % [facility] Comment: Interpretive Data Percent cell count reference ranges are not reported, since discordance with absolute values may lead to misinterpretation of CBC data. Current Interpretive Data was last revised on 2017. Lymphocyte pct 14.1 % [facility] Comment: Interpretive Data Percent cell count reference ranges are not reported, since discordance with absolute values may lead to misinterpretation of CBC data. Current Interpretive Data was last revised on 2017. Monocyte pct 10.4 % [facility] Comment: Interpretive Data Percent cell count reference ranges are not reported, since discordance with absolute values may lead to misinterpretation of CBC data. Current Interpretive Data was last revised on 2017. Eosinophil pct 3.9 % [facility] Comment: Interpretive Data Percent cell count reference ranges are not reported, since discordance with absolute values may lead to misinterpretation of CBC data. Current Interpretive Data was last revised on 2017. Basophil pct 0.1 % [facility] Comment: Interpretive Data Percent cell count reference ranges are not reported, since discordance with absolute values may lead to misinterpretation of CBC data. Current Interpretive Data was last revised on 2017. Blood 02/02/2024 10:4 0 PM SUPERVISOR TYPESETTING 02/03/2024 12:04 AM SUPERVISOR TYPESETTING us Meme Santana MD LAB BLOOD ORDERABLES Fin al Result [facility] Department [place] [address] * (ABNORMAL) CBC with auto differential (02/02/2024 10:40 PM SUPERVISOR TYPESETTING) WBC 8.0 3.8 - 9.9 K/cumm Hgb 7.2(L) 11.9 - 15.5 g/dL [facility] Hct 22.5(L) 35.6 - 45.5 % [facility] Plt 190 150 - 400 K/cumm [facility] MPV 10.3 9.1 - 12.3 fL [facility] RBC 2.72(L) 3.90 - 5.20 M/cumm [facility] MCV 82.7 81.3 - 96.4 fL [facility] MCH 26.5(L) 27.1 - 33.3 pg [facility] MCHC 32.0(L) 32.3 - 35.7 g/dL [facility] RDW CV 14.0 11.1 - 14.9 % [facility] RDW SD 42.1 35.7 - 48.1 fL [facility] NRBC abs 0.00 0.00 - 0.01 K/cumm [facility] Blood 02/02/2024 10:4 0 PM SUPERVISOR TYPESETTING 02/03/2024 12:04 AM SUPERVISOR TYPESETTING Carin Granados MD LAB BLOOD ORDERABLES Tete l Result [facility] [employer] [place] [address] * Phosphorus (02/02/2024 10:40 PM SUPERVISOR TYPESETTING) Phosphorus, pl 2.8 2.3 - 4.5 mg/dL Blood 02/02/2024 10:4 0 PM SUPERVISOR TYPESETTING 02/03/2024 12:36 AM SUPERVISOR TYPESETTING Carin Granados MD LAB BLOOD ORDERABLES Tete l Result [facility] Department of [employer] [place] [address] * (ABNORMAL) Magnesium (02/02/2024 10:40 PM SUPERVISOR TYPESETTING) Magnesium 2.6(H) 1.4 - 2.5 mg/dL Blood 02/02/2024 10:4 0 PM SUPERVISOR TYPESETTING 02/03/2024 12:36 AM SUPERVISOR TYPESETTING Carin Granados MD LAB BLOOD ORDERABLES Tete l Result Performing Organization Address [facility] Co de Phone Number [facility] [place] [address] * (ABNORMAL) Hepatic function panel (02/02/2024 10:40 PM SUPERVISOR TYPESETTING) Bilirubin, total 0.7 0.1 - 1.2 mg/dL Bilirubin, direct 0.2 0.1 - 0.3 mg/dL [facility] Protein, pl 6.4(L) 6.5 - 8.5 g/dL [facility] Albumin 2.6(L) 3.5 - 5.0 g/dL [facility] Alk phos 241(H) 40 - 130 Units/L [facility] ALT 13 7 - 45 Units/L [facility] AST 35 10 - 45 Units/L [facility] Blood 02/02/2024 10:4 0 PM SUPERVISOR TYPESETTING 02/03/2024 12:36 AM SUPERVISOR TYPESETTING Carin Granados MD LAB BLOOD ORDERABLES Tete l Result Performing Organization Address [facility] de Phone Number [facility] [place] [address] * (ABNORMAL) Basic metabolic panel (02/02/2024 10:40 PM SUPERVISOR TYPESETTING) Sodium 138 135 - 145 mmol/L Potassium, pl 5.0(H) 3.3 - 4.9 mmol/L [facility] Chloride 102 97 - 110 mmol/L [facility] CO2 30 22 - 32 mmol/L [facility] Anion gap 6 2 - 15 mmol/L [facility] BUN 26(H) 6 - 25 mg/dL [facility] Creatinine 0.99 0.60 - 1.10 mg/dL [facility] Glucose 135 70 - 199 mg/dL [facility] Comment: Interpretive Data Fasting glucose >/= [...] 2022. Calcium 8.4(L) 8.5 - 10.3 mg/dL [facility] Blood 02/02/2024 10:4 0 PM SUPERVISOR TYPESETTING 02/03/2024 12:36 AM SUPERVISOR TYPESETTING Carin Granados MD LAB BLOOD ORDERABLES Tete l Result Performing Organization Address [facility]/ZIP Co de Phone Number [facility] Department [place] [address] * POCT glucose (02/02/2024 8:25 PM SUPERVISOR TYPESETTING) Glucose, POC 173 70 - 199 mg/dL Blood 02/02/2024 8:25 PM SUPERVISOR TYPESETTING 02/02/2024 8:25 PM SUPERVISOR TYPESETTING Carin Granados MD LAB POCT ORDERABLES - DEV ICE Final Result Performing Organization Address [facility] Co de Phone Number [facility] Department [place] [address] * (ABNORMAL) Hemoglobin and hematocrit (02/02/2024 5:56 PM SUPERVISOR TYPESETTING) Hgb 7.6(L) 11.9 - 15.5 g/dL Hct 23.2(L) 35.6 - 45.5 % [facility] Blood 02/02/2024 5:56 PM SUPERVISOR TYPESETTING 02/02/2024 6:12 PM SUPERVISOR TYPESETTING Carin Granados MD LAB BLOOD [place]AB[place] [address] * POCT glucose (02/02/2024 4:53 PM SUPERVISOR TYPESETTING) Glucose, POC 172 70 - 199 mg/dL Blood 02/02/2024 4:53 PM SUPERVISOR TYPESETTING 02/02/2024 4:53 PM SUPERVISOR TYPESETTING Carin Granados MD LAB POCT ORDERABLES - DEV ICE Final Result Performing Organization Address [facility] [place] [address] * Transfuse RBC (02/02/2024 2:55 PM SUPERVISOR TYPESETTING) Blood Carin Granados MD BLOOD TRANSFUSION ORDERAB LES Final Result Performing Organization Address City/[facility]/[place] [address] * POCT glucose (02/02/2024 12:56 PM SUPERVISOR TYPESETTING) Glucose, POC 162 70 - 199 mg/dL Blood 02/02/2024 12:5 6 PM SUPERVISOR TYPESETTING 02/02/2024 12:56 PM SUPERVISOR TYPESETTING Carin Granados MD LAB POCT ORDERABLES - DEV ICE Final Result Performing Organization Address [facility] [place] [address] * POCT glucose (02/02/2024 9:48 AM SUPERVISOR TYPESETTING) Glucose, POC 126 70 - 199 mg/dL Blood 02/02/2024 9:48 AM SUPERVISOR TYPESETTING 02/02/2024 9:48 AM SUPERVISOR TYPESETTING us Carin Granados MD LAB POCT ORDERABLES - DEV ICE Final Result Performing Organization Address [facility] de Phone Number [facility] [place] [address] * Hepatitis panel, acute Blood (01/27/2024 9:00 PM SUPERVISOR TYPESETTING) Hep A IgM Nonreactive Nonreactive Hep B core IgM Nonreactive Nonreactive [facility] Hep C Ab Nonreactive Nonreactive [facility] Comment:Antibodies to HCV no t detected. Does NOT exclude the possibility of recent exposure to HCV. Current interpretive data was last revised on 21 HepBsAg Nonreactive Nonreactive [facility] Blood 01/27/2024 9:00 PM SUPERVISOR TYPESETTING 01/27/2024 9:44 PM SUPERVISOR TYPESETTING us Sheldon Duran MD LAB MICROBIOLOGY - GENERA L ORDERABLES Final Result Performing Organization Address [facility] de Phone Number [facility] Department [place] [address] * (ABNORMAL) Lipid panel (01/26/2024 11:33 PM SUPERVISOR TYPESETTING) Cholesterol 137 30 - 199 mg/dL Comment: [...] revised on 2017. Triglycerides 171(H) <=149 mg/dL [facility] Comment: Interpretive Data Ages < or [...] revised on 2017. HDL 28(L) >=40 mg/dL [facility] Comment: Interpretive Data Ages < or [...] on 2017. LDL, calculated 79 <=129 mg/dL [facility] Comment: Interpretive Data Ages < or [...] revised on 2023. Non-HDL Cholesterol 109 mg/dL [facility] Comment: Interpretive Data Ages < or [...] last revised on 2017. Chol/HDL ratio 5 [facility] Blood 01/26/2024 11:3 3 PM SUPERVISOR TYPESETTING 01/27/2024 12:31 AM SUPERVISOR TYPESETTING Sheldon Duran MD LAB BLOOD ORDERABLES Tete l Result [facility] Department [place] [address] * (ABNORMAL) Hemoglobin A1c (12/01/2023 6:48 PM CDT) Hgb A1C 10.6(H) 4.0 - 5.6 % Estimated Average Glucose 258 mg/dL [facility] Comment: The ADA recommends reporting an estimated Average Glucose (eAG) with all Hemoglobin A1c results using the equation derived from a study of 507 normal and diabetic adults. Minority populations were underrepresented and children were not included. (Diabetes Care 31:5028-3593, 2008). The eAG is not equivalent to a fasting glucose. 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 Coli. Not eligible for review. Multiple wounds that require cultures for discontinuation. Kyler Child 02/02/2024 01/09/2024 01/09/2024 Insurance Advance Directives For more information, please contact: [phone] Documents on File Type Date Recorded Patient Non Destructive Testing Inspector Expl anation ADVANCE DIRECTIVE 02/17/2024 11:22 AM POW ER OF TRADE FACILITATOR-MEDICAL ADVANCE DIRECTIVE 02/03/2024 2:17 PM MARLEN R OF TRADE FACILITATOR-MEDICAL * Full Code (Latest Code Status on [...] Health Care Agent Yadi Sanchez Sister [facility] Health Care Agent Care Teams Reliability Engineer Relationship Specialty Start Date End Date Barbara Oliva MD [address] [place] [id number] PCP - General Gastroenterology 12/02/23 Miscellaneous, Not In File 01/03/24
--- OUTSIDE RECORDS SUMMARY | 2024-05-04 18:49 | XMS_ITS | Encounter Summary ---
Author Organization [facility] Healthcare Address [address] [place] [address] Care Team Providers Care Intake Clinician Name Role Phone Barbara Oliva MD Primary Care Provider Miscellaneous, Not In File Unavailable Unava ilable Encounter Details Date Type Department Care Team (Late st Contact Info) Description 02/13/2024 Treatment [facility] [address] [address] Andie Byrne MD [address] [place] [id number] Social History Tobacco Use Types Packs/Day Years Used Date Smoking Tobacco: Every Day Cigarettes Passive Smoke Exposure: Never Smokeless Tobacco: Never [facility] Utilities Answer Date Recorded In the past 12 months has [employer] electric, gas, oil, or water company threatened [...] often do you attend chur ch or nondenominational services? 1 to 4 times per year 01/29/2024 Do you belong to any clubs o r organizations such as episcopal groups, unions, fraternal or athletic groups, or [...] any time in the past 12 m [facility], were you homeless or living in a [...] on file Legal Sex Female 5:35 AM SEAM SEWER Gender Identity Not on file Sexual Orientation [...] this patient. Contact Information: Please contact the [facility] Transfusion Medicine Service at (option 1) with any questions. This report has been prepared by: Andie Byrne MD Cosigned by Kassidy Mahoney MD PhD at 02/13/2024 7:52 PM SEAM SEWER SEWER SEWER Associated attestation - Kassidy Mahoney MD PhD - 02/13/2024 7:52 PM SEAM SEWER Attestation: I have personally reviewed the antibody [...] documented as of this encounter Care Teams Intake Clinician Relationship Specialty Start Date End Date Barbara Oliva MD [address] [place] [id number] PCP - General Gastroenterology 12/02/23 Miscellaneous, Not In File 01/03/24 documented as of this encounter
--- OUTSIDE RECORDS SUMMARY | 2024-05-04 18:50 | XMS_ITS | Encounter Summary ---
Author Organization [facility] Address [address] [place] [address] Care Team Providers Care Gaggerman Name Role Phone Unavailable Primary Care Provider Unavailabl e Reason for Visit * Reason Onset Date Comments Hoarse weak voice prolonged post extubation; please eval an 12/19/[address] REGAN OFFICE Encounter Details Date Type Department Care Team (Late st Contact Info) Description 12/19/2023 Telephone [facility] Admitting [address] [place] [address] Alton Moreno Scribe Hoarse weak [...]
--- OUTSIDE RECORDS SUMMARY | 2024-05-04 18:50 | XMS_ITS | Encounter Summary ---
Author Organization [facility] Address [address] [place] [address] Care Team Providers Care Obstetrical Tech Name Role Phone Unavailable Primary Care Provider Unavailabl e Reason for Visit * Reason Onset Date Comments left ft wound infection 12/10/2023 Left RN # and msg to Dr. Speedy zabala Encounter Details Date Type Department Care Team (Late st Contact Info) Description 12/10/2023 Telephone [facility] Admitting [address] [place] [address] [place] [address] [place] [address] left ft wound infection (Left [...]
--- OUTSIDE RECORDS SUMMARY | 2024-05-04 18:50 | XMS_ITS | Encounter Summary ---
Author Organization [facility] Address [address] [place] [address] Care Team Providers Care Energy Rater Name Role Phone Unavailable Primary Care Provider Unavailabl e Reason for Visit * Reason Onset Date Comments left ft wound infection 12/10/2023 Spoke freya/ Meme @ Dr. Daphnie zabala Encounter Details Date Type Department Care Team (Late st Contact Info) Description 12/10/2023 Telephone [facility] Admitting [address] [place] [address] [place] [address] [place] [address] left ft wound infection (Spoke [...]
--- OUTSIDE RECORDS SUMMARY | 2024-05-04 18:50 | XMS_ITS | Encounter Summary ---
Author Organization [facility] Address 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 Eller's exchange Encounter Details Date Type Department Care Team (Late st Contact Info) Description 11/15/2023 Telephone [facility] Emergency [address] [place] [address] [place] [address] [place] [address] Osteomylitis of the 2nd toe [...]
--- OUTSIDE RECORDS SUMMARY | 2024-05-04 18:50 | XMS_ITS | Clinical Summary ---
Author Organization [facility] Address [address] [place] [address] Phone Care Team Providers Care Stores Assistant Name Role Phone Unavailable Primary Care Provider [...] mL 4 Active naloxone (NARCAN) 4 mg/spray [place], Non-Aerosol EMERGENCY USE ONLY: Administer 1 spray [...] this topic Medical Devices Implanted Type Area Package Sorter Device Identifier Shelf Expiration Date Model / Serial / Lot Tube Feeding [employer] Gastro 18fr 0100-18 - [id number] Implanted:Qt y: 1 on 12/26/2023 by Dileep Dexter MD at [facility] Feeding Device N/A: Abdomen [employer] [id number] 06/06/2026 0100-18 / / [id number] Procedures Procedure Name Priority Date/Time Associated Diagnosis Comments HEMOGLOBIN A1C Stat 11/15/2023 10:08 AM CDT from Last 3 Months or Most Recently Relevant to Health Maintenance Results * (ABNORMAL) HEMOGLOBIN A1C (11/15/2023 10:08 AM CDT) HEMOGLOBIN A1C 11.0(H) <=5.6 % 11/15/2023 1:11 PM CDT [facility] EST. AVG GLUCOSE, A1C 269 mg/dL 11/15/2023 1:11 PM CDT [facility] Blood Venipuncture / Unknown 11/15/2023 10:08 AM CDT 11/15/2023 10:14 AM CDT Narrative [facility] - 11/15/2023 1:11 PM CDT HGB A1C INTERPRETATION NORMAL: <5.7% PRE-DIABETES: 5.7 - 6.4% DIABETES: 6.5% OR GREATER [employer] [facility] ORDERABLES Final Resu lt [facility] [employer] [facility] CLIA# [id number] [place] [address] from Last 3 Months or Most Recently Relevant to Health Maintenance Insurance [facility] [employer] MEDICA[employer] Commercial Advance Directives For more information, please contact: [phone] * Full Code (Latest Code Status on File) Date Activated Date Inactivated Comments 12/09/2023 9:38 PM 12/30/2023 8:30 PM * Full Code Date Activated Date Inactivated Comments 11/16/2023 7:48 PM 11/17/2023 12:44 PM * Full Code Date Activated Date Inactivated Comments 11/16/2023 7:59 AM 11/16/2023 7:48 PM
--- OUTSIDE RECORDS SUMMARY | 2024-05-04 18:50 | XMS_ITS | Patient Health Summary ---
Author Organization [facility] Address [address] [address] Care Team Providers Care C Java Developer Name Role Phone Malika Campbell ANKIT-RETORT SETTER Primary Care Provider [phone] Note from [facility] [place],non-owned Affiliates and Associated Physician Practices is amultiple site organization consisting of ambulatory clinics and hospital sitesin [place], [place], [place] and [place]. This disclosure is being madepursuant to the Care Everywhere program and may not contain all information available regarding this patient. Last updated 17.[facility] Allergies * Cat Hair Extract(Swelling) -Low [...] Comments Blood Pressure 126/83 03/24/2022 4:09 PM RAILROAD TRACK MECHANIC Pulse 96 03/24/2022 4:09 PM RAILROAD TRACK MECHANIC Temperature 35.9 C (96.7 F) 03/24/2022 4:09 PM RAILROAD TRACK MECHANIC Respiratory Rate 18 03/24/2022 4:09 PM RAILROAD TRACK MECHANIC Oxygen Saturation 100% 03/24/2022 4:09 PM RAILROAD TRACK MECHANIC Inhaled Oxygen Concentration - - Weight 84.8 kg (187 lb) 04/09/2022 11:15 AM RAILROAD TRACK MECHANIC Height 170.2 cm (5' 7 ) 01/07/2022 3:36 PM CDT Body Mass Index 29.29 01/07/2022 3:36 PM CDT Procedures * PT-INR [facility](Performed 03/24/2022) * COMPREHENSIVE METABOLIC PANEL(Performed 03/24/2022) * CBC W AUTO DIFFERENTIAL(Performed 03/24/2022) * UT ED EGD FLEX TRANSORAL DX(Performed 03/23/2022) Performed for Esophageal varices without bleeding, unspecified esophageal varices type (HCC) * EGD(Performed 03/23/2022) * GLUCOSE - POINT OF CARE(Performed 03/23/2022) * HCG URINE QUALITATIVE - POCT (IP) INTERFACED(Performed 03/23/2022) * HCG URINE QUAL POCT NOTIFICATION(Performed 03/23/2022) Performed for Preoperative examination * PATHOLOGY TISSUE(Performed 01/07/2022) Performed for Bleeding esophageal varices, unspecified esophageal varices type (HCC) * UT ED EGD FLEX TRANSORAL DX(Performed 01/07/2022) Performed [...] LEUKOREDUCED UNIT(Performed 09/13/2020) * EGD(Performed 09/13/2020) * UT ED EGD FLEX TRANSORAL DX(Performed 09/13/2020) * [...] ANTIBODY IDENTIFICATION(Performed 09/13/2020) * E ANTIGEN TYPING ([employer] BB)(Performed 09/13/2020) * RUIZ DIRECT(Performed 09/13/2020) * [...] ascites, unspecified hepatic cirrhosis type (HCC) * [id number]-[id number] BLOOD(Performed 12/12/2019) Performed for Cirrhosis of liver [...] for Steatosis of liver, Hepatic fibrosis * UT LIVER ELASTOGRAPHY(Performed 03/25/2019) Performed for NAFLD (nonalcoholic [...] [facility](Performed 11/07/2013) * GLUCOSE ACCUCHECK(Performed 11/07/2013) * UT ED EGD FLEX TRANSORAL DX Performed for Abdominal pain, unspecified abdominal location, Esophageal varices without bleeding, unspecified esophageal varices type (HCC) * UT ED EGD FLEX TRANSORAL DX Performed for Esophageal varices without bleeding, unspecified esophageal varices type (HCC) Results * (ABNORMAL) PT-INR [facility] (03/24/2022 4:51 PM RAILROAD TRACK MECHANIC) Only the most recent of6 resultswithin the time period is included. [facility] PT 16.9(H) 12.1 - 14.8 Seconds 03/24/2022 5:30 PM [facility] INR 1.4 See Comment 03/24/2022 5:30 PM [facility] Comment:The suggested therap eutic range for standard coumadin (warfarin) therapy is an INR of 2.0-3.0. For high-risk patients (Mechanical Mitral Valve Prosthesis, etc.), the suggested prophylactic therapeutic range is an INR of 2.5-3.5. Blood BLOOD SPECIMEN / Unknown Venipuncture / Unknown 03/24/2022 4:51 PM RAILROAD TRACK MECHANIC 03/24/2022 5:03 PM RAILROAD TRACK MECHANIC Deonna Mukherjee PA-C LAB - COAGULATION ORDERABLES Performing Organization Address [facility]/State/[facility] Co de Phone Number [facility] [address] [place] [phone], [facility] [phone] * (ABNORMAL) CBC W AUTO DIFFERENTIAL (03/24/2022 4:51 PM RAILROAD TRACK MECHANIC) Only the most recent of18 resultswithin the time period is included. Pathologist [facility] WBC 9.7 3.5 - 10.5 10 3/uL 03/24/2022 5:07 PM [facility] RBC 4.23 3.80 - 5.20 10 6/uL 03/24/2022 5:07 PM [facility] Hemoglobin 12.0 12.0 - 15.6 g/dL 03/24/2022 5:07 PM [facility] Hematocrit 35.5 35.0 - 45.0 % 03/24/2022 5:07 PM [facility] MCV 83.9 80.7 - 98.3 fL 03/24/2022 5:07 PM [facility] MCH 28.4 26.7 - 34.0 pg 03/24/2022 5:07 PM [facility] MCHC 33.8 30.8 - 35.9 g/dL 03/24/2022 5:07 PM [facility] RDW-SD 37.7 36.0 - 50.0 fL 03/24/2022 5:07 PM [facility] RDW-CV 12.3 11.2 - 14.8 % 03/24/2022 5:07 PM [facility] Platelet Count 143(L) 150 - 400 10 3/uL 03/24/2022 5:07 PM [facility] MPV 10.5 9.4 - 12.9 fL 03/24/2022 5:07 PM [facility] nRBC Absolute 0.00 0 10 3/uL 03/24/2022 5:07 PM [facility] nRBC Auto 0.0 0 /100 WBC 03/24/2022 5:07 PM [facility] Neutrophils % 71.5(H) 35.0 - 70.0 % 03/24/2022 5:07 PM [facility] Lymphocytes % 20.7 20.0 - 43.0 % 03/24/2022 5:07 PM [facility] Monocytes % 6.5 5.0 - 13.0 % 03/24/2022 5:07 PM [facility] Eosinophils % 0.8 0.0 - 6.0 % 03/24/2022 5:07 PM [facility] Basophil % 0.3 0.0 - 2.0 % 03/24/2022 5:07 PM [facility] Neutrophils Absolute 6.92 1.60 - 7.00 10 3/uL 03/24/2022 5:07 PM [facility] Lymphocyte Absolute 2.01 1.10 - 3.90 10 3/uL 03/24/2022 5:07 PM [facility] Monocytes Absolute 0.63 0.26 - 1.07 10 3/uL 03/24/2022 5:07 PM [facility] Eosinophils Absolute 0.08 0.00 - 0.47 10 3/uL 03/24/2022 5:07 PM [facility] Basophils Absolute 0.03 0.00 - 0.08 10 3/uL 03/24/2022 5:07 PM [facility] Immature Granulocytes % 0.2 0.0 - 1.0 % 03/24/2022 5:07 PM [facility] Immature Granulocytes Absolute 0.02 03/24/2022 5:07 PM [facility] Blood BLOOD SPECIMEN / Unknown Venipuncture / Unknown 03/24/2022 4:51 PM RAILROAD TRACK MECHANIC 03/24/2022 5:03 PM RAILROAD TRACK MECHANIC Deonna Mukherjee PA-C LAB - HEMATOLOGY O RDERABLES [facility] [address] [place] [address], [facility] [phone] * (ABNORMAL) COMPREHENSIVE METABOLIC PANEL (03/24/2022 4:51 PM RAILROAD TRACK MECHANIC) Only the most recent of10 resultswithin the time period is included. BUN 10 7 - 26 mg/dL 03/24/2022 5:42 PM [facility] Creatinine 0.55(L) 0.56 - 0.96 mg/dL 03/24/2022 5:42 PM [facility] Sodium 134(L) 136 - 145 mmol/L 03/24/2022 5:42 PM [facility] Potassium 3.8 3.5 - 4.5 mmol/L 03/24/2022 5:42 PM [facility] Chloride 94(L) 98 - 107 mmol/L 03/24/2022 5:42 PM [facility] CO2 25 22 - 29 mmol/L 03/24/2022 5:42 PM [facility] Glucose 606(HH) 70 - 115 mg/dL 03/24/2022 5:42 PM [facility] Calcium 9.0 8.4 - 10.2 mg/dL 03/24/2022 5:42 PM [facility] Protein Total 7.2 6.0 - 8.3 g/dL 03/24/2022 5:42 PM [facility] Albumin 3.5 3.4 - 5.0 g/dL 03/24/2022 5:42 PM [facility] Bilirubin Total 0.7 0.2 - 1.2 mg/dL 03/24/2022 5:42 PM [facility] Alkaline Phosphatase 127 40 - 150 U/L 03/24/2022 5:42 PM [facility] ALT 19 5 - 55 U/L 03/24/2022 5:42 PM [facility] AST 19 5 - 34 U/L 03/24/2022 5:42 PM [facility] Anion Gap 19(H) 8 - 18 03/24/2022 5:42 PM [facility] BUN/Creatinine Ratio 18 7 - 23 03/24/2022 5:42 PM [facility] Osmolality Calculated 305(H) 270 - 300 mOsm/kg 03/24/2022 5:42 PM [facility] Albumin/Globulin Ratio 0.9(L) 1.1 - 2.3 03/24/2022 5:42 PM [facility] eGFR by CKD-EPI >90 >=90 mL/min/1.7 3 m2 03/24/2022 5:42 PM [facility] Blood BLOOD SPECIMEN / Unknown Venipuncture / Unknown 03/24/2022 4:51 PM RAILROAD TRACK MECHANIC 03/24/2022 5:03 PM RAILROAD TRACK MECHANIC Deonna Mukherjee PA-C LAB - CHEMISTRY OR DERABLES Performing Organization Address [facility]/State/[facility] Co de Phone Number [facility] [address] [place] [address], [facility] [phone] * EGD (03/23/2022 3:24 PM RAILROAD TRACK MECHANIC) Report Endoscopy POC Endoscopy Department Report _ [...] non-werner portions. Procedure Code(s): --- Professional --- 24084, Esophagogastroduo denoscopy, flexible, transoral; with band ligation of esophageal/gastri c varices Diagnosis Code(s): --- Professional --- I85.00, Esophageal varices without bleeding K76.6, Portal hypertension K31.89, Other diseases of stomach and duodenum CPT copyright 2019 [employer]. All rights reserved. The codes documented in this report are preliminary and upon irrigation service technician review may be revised to meet current compliance requirements. Wilbert Estrella, 03/23/2022 3:42:51 PM Note Initiated On: 03/23/2022 3:24 PM Number of Addenda: [address] [employer]OVATION 03/23/2022 3:24 PM RAILROAD TRACK MECHANIC Carlie Estrella MD GI PRO CEDURE ORDERABLES [facility] [employer] * (ABNORMAL) GLUCOSE - POINT OF CARE (03/23/2022 2:44 PM RAILROAD TRACK MECHANIC) Only the most recent of8 resultswithin the time period is included. Glucose WB/POC 238(H) 70 - 115 mg/dL 03/23/2022 3:06 PM RAILROAD TRACK MECHANIC [facility] Specimen Type Cap Fingerstick 2022 3:06 PM RAILROAD TRACK MECHANIC [facility] Blood BLOOD SPECIMEN / Unknown 03/23/2022 2:44 PM RAILROAD TRACK MECHANIC 03/23/2022 3:06 PM RAILROAD TRACK MECHANIC Carlie Estrella MD LAB - POINT OF CARE ORDERABLES Performing Organization Address City/[facility]/ZIP Co de Phone Number [address] [address], [place] [phone] * HCG URINE QUALITATIVE - POCT (IP) INTERFACED (03/23/2022 2:34 PM RAILROAD TRACK MECHANIC) Only the most recent of2 resultswithin the time period is included. HCG Qual Urine Negative Negative 03/23/2022 2:41 PM RAILROAD TRACK MECHANIC [facility] Urine URINE / Unknown 03/23/2022 2 :34 PM RAILROAD TRACK MECHANIC 03/23/2022 2:41 PM RAILROAD TRACK MECHANIC Carlie Estrella MD LAB - POINT OF CARE ORDERABLES Performing Organization Address [facility] Co de Phone Number [address] [address], [place] [phone] * HCG URINE QUAL POCT NOTIFICATION (03/23/2022 2:26 PM RAILROAD TRACK MECHANIC) Only the most recent of3 resultswithin the time period is included. Comment Notification Label Only - See Separate Report 03/23/2022 3:32 PM RAILROAD TRACK MECHANIC [facility] Urine URINE / Unknown 03/23/2022 2 :26 PM RAILROAD TRACK MECHANIC 03/23/2022 2:26 PM RAILROAD TRACK MECHANIC Carlie Estrella MD LAB - URINALYSIS ORDERABLES Performing Organization Address City/[facility]/ZIP Co de Phone Number [address] [address], [place] [phone] * PATHOLOGY TISSUE (01/07/2022 1:37 PM CDT) Only the most recent of3 resultswithin the time period is included. Case Report Surgical Pathology Report Case: [id number] Authorizing Provider: Daina Vasquez MD Collected: 01/07/2022 01:37 PM Ordering Location: [facility] Received: 01/07/2022 03:38 PM Pathologist: Suzette Hernandez MD Specimen: Gastric, random gastric bx- R/O H pylori 01/08/2022 2:32 PM [facility] Final Diagnosis Stomach, random, biopsy (A): - Mild reactive changes - No active inflammation or H. pylori organisms (H&E examination) 01/08/2022 2:32 PM [facility] Microscopic Description and Comment Microscopic examination substantiates the final diagnosis. 01/08/2022 2:32 PM [facility] Clinical History The patient is a 36-year-old woman with left upper quadrant abdominal pain who presents for follow-up of esophageal varices and surveillance. Operative procedure/findings: EGD - large esophageal varices, banded; portal hypertensive gastropathy and nonbleeding gastric ulcers, biopsied to rule out H. pylori. 01/08/2022 2:32 PM [facility] Gross Description The requisition and specimen(s) are identified with the patient's name Shruti Velazquez. Received in formalin, specimen A , are 2 pink-patrick tissues, 0.1 x 0.1 x 0.1 cm and 0.4 x 0.2 x 0.1 cm, submitted in toto in cassette A1. DF 01/08/2022 2:32 PM [facility] Disclaimer The performance characteristics of all immunohistochemical and indirect immunofluorescence stains (if any) cited in this report were determined by the Histopathology Laboratory of [facility]. Some of these tests were developed [...] the attending (teaching) pathologist. 01/08/2022 2:32 PM [facility] Embedded Images 01/08/2022 2:32 PM [facility] Biopsy, NOS GASTRIC CONTENTS SPECIMEN / Unknown 01/07/2022 1:37 PM CDT 01/07/2022 3:38 PM CDT Comment:Pre-op diagnosis: Bleeding esophageal varices, unspecified esophageal varices type [I85.01] Daina Vasquez MD LAB - PATHOLOGY/CY ALLA ORDERABLES [facility] [address] [phone] * EGD (01/07/2022 1:19 PM CDT) Report [...] entire procedure. Procedure Code(s): --- Professional --- 92625, Esophagogastroduode noscopy, flexible, transoral; with band ligation of esophageal/gastric varices Diagnosis Code(s): --- Professional --- I85.00, Esophageal varices without bleeding K76.6, Portal hypertension K31.89, Other diseases of stomach and duodenum K25.9, Gastric ulcer, unspecified as acute or chronic, without hemorrhage or perforation R10.11, Right upper quadrant pain R10.12, Left upper quadrant pain CPT copyright 2019 [employer]. All rights reserved. The codes documented in this report are preliminary and upon irrigation service technician review may be revised to meet current compliance requirements. ___ Daina Vasquez MD 01/07/2022 1:51:04 PM Note Initiated On: 01/07/2022 1:19 PM Number of Addenda: [address] [address] __ _ Addendum Number: 1 Addendum Date: 01/07/2022 2:05:12 PM given banding, would recommend liquid diet today and soft diet x 1 week. Of note, not on nadolol and heart rate 70-80s at endoscopy. ___ Daina Vasquez MD 01/07/2022 2:05:53 PM [facility] [employer] 01/07/2022 1:19 PM CDT Daina Vasquez MD GI PROCEDURE ORDER [place] [facility] [employer]ATION * ALPHA FETOPROTEIN BLOOD TUMOR MARKER (01/07/2022 11:08 AM CDT) Only the most recent of3 resultswithin the time period is included. Alpha-Fetoprote in Tumor Marker <2.0 <=8.3 ng/mL 01/07/2022 12:03 PM CDT [facility] Comment: AFP values will vary depending on testing procedure used. Results are not comparable across different methods. AFP values obtained by [facility] using an Miller Alinity Immunoassay. Blood BLOOD SPECIMEN / Unknown Venipuncture / Unknown 01/07/2022 11:08 AM CDT 01/07/2022 11:13 AM CDT Abby Jaquez ANESTHESIOLOGIST ASSISTANT-RETORT SETTER LAB - CHEMI STRY ORDERABLES [facility] [address] [place] [phone], [facility] [phone] * US ABDOMEN LIMITED (01/07/2022 10:53 AM [...] Navarro (resident). > Dictated by Salvador Navarro (Mash Preparatory Operator) 01/07/2022 11:13 AM IABIMAEL MD have personally reviewed and interpreted this examination/study. > Interpreting Provider: ABIMAEL WALLACE MD on 01/07/2022 12:10 PM Narrative 01/07/2022 12:10 PM CDT PROCEDURE: US ABDOMEN LIMITED, DATE/TIME OF EXAM: 01/07/2022 8:32 AM, LOCATION [facility] INDICATION: K74.60: Hepatic cirrhosis, unspecified [...] OF EXAM: 01/07/2022 8:32 AM, LOCATION [facility] INDICATION: K74.60: Hepatic cirrhosis, unspecified [...] Navarro (resident). > Dictated by Salvador Navarro (Mash Preparatory Operator) 1:13 AM I, ABIMAEL WALLACE MD have personally reviewed and interpreted this examination/study. > Interpreting Provider: ABIMAEL WALLACE MD on 01/07/2022 12:10 PM Abby Jaquez ANESTHESIOLOGIST ASSISTANT-RETORT SETTER US ORDERABL ES * LAB RESULTS ORDER [...] The following cutoff levels are recommended by [place] [employer]. A1c > 6.5% : considered [...] Pink MD LAB - CHEMISTRY ORD ERABLES [facility] Organization Address City/State/ZIP Co de Phone Number -[facility] [address] [place] [address] * (ABNORMAL) RENAL FUNCTION PANEL (09/14/2020 3:05 [...] >60 mL/min/1.7 3m2 09/14/2020 4:04 AM CDT [facility] eGFR by MDRD >60 >60 mL/min/1.7 3m2 09/14/2020 4:04 AM CDT [facility] Blood BLOOD SPECIMEN / Unknown Lab Venipuncture / Unknown 09/14/2020 3:05 AM CDT 09/14/2020 3:37 AM CDT Angeline Atkins MD LAB - CHEMISTRY [place] [facility] [address] [place] [address] * MAGNESIUM BLOOD (09/14/2020 3:05 AM CDT) Only the most recent of2 resultswithin the time period is included. Magnesium 2.2 1.6 - 2.6 mg/dL 09/14/2020 4:04 AM CDT [facility] Blood BLOOD SPECIMEN / Unknown Lab Venipuncture / Unknown 09/14/2020 3:05 AM CDT 09/14/2020 3:37 AM CDT Angeline Atkins MD LAB - CHEMISTRY [place] Performing Organization Address City/[facility]/ZIP Co de Phone Number [facility] [address] [place] [phone] * (ABNORMAL) HGB HCT PANEL (09/13/2020 10:38 PM CDT) Only the most recent of3 resultswithin the time period is included. Hemoglobin 8.0(L) 12.0 - 15.6 gm/dL 09/13/2020 10:59 PM CDT [facility] Hematocrit 24.9(L) 35.9 - 45.5 % 09/13/2020 10:59 PM CDT [facility] Blood BLOOD SPECIMEN / Unknown Lab Venipuncture / Unknown 09/13/2020 10:38 PM CDT 09/13/2020 10:57 PM CDT Cielo Pink MD LAB - HEMATOLOGY OR DERABLES [facility] [address] [place] [address] * TRANSFUSE RED BLOOD CELL LEUKOREDUCED UNIT(S) [...] [facility] BLOOD BANK Unit Donor # [id number] [facility]LOOD B[facility] Unit Status transfused [facility] Product Code [id number] [facility] Blood Type Barcode 5100 [facility]LOOD BANK Expiration Date [facility]LOOD B[facility] Unit Description AS1 LR PRBC [facility] BLOOD BANK Unit ABO O [facility] BLO OD BANK Unit Rh POS [facility] BLO OD BANK Product Number R02 [facility] BLOOD BANK Unit Donor # [id number] [facility] BLOOD BANK Unit Status transfused [facility] BLOOD BANK Product Code [id number] [facility]LOOD BANK Blood Type Barcode 5100 [facility] BLOOD BANK Expiration Date [facility] BLOOD BANK Blood Bank BLOOD SPECIMEN / Unknown 09/13/2020 5:14 AM CDT Cielo Pink MD LAB - BLOOD BANK OR DERABLES [facility] [address] [place] [address] [phone] * EGD (09/13/2020 4:35 PM CDT) Report [...] esophagus,. They were medium in size. Red loar signs were present. Four bands were successfully [...] present medications. Procedure Code(s): --- Professional --- 58821, Esophagogastroduod enoscopy, flexible, transoral; with band ligation of esophageal/gastric varices --- Technical --- 04097, Esophagogastroduod enoscopy, flexible, transoral; with band ligation [...] K92.1, Melena (includes Hematochezia) CPT copyright 2019 [employer]. All rights reserved. The codes documented in this report are preliminary and upon irrigation service technician review may be revised to meet current compliance requirements. ___ Corbin De La Rosa MD 09/13/2020 5:03:17 PM This report has been signed electronically. Number of Addenda: 0 Note Initiated On: 09/13/2020 4:35 PM Procedure Date: 09/13/2020 4:35:56 PM [facility] 09/13/2020 4:35 PM CDT Corbin De La Rosa MD GI PROCEDURE ORDERAB LES [facility] * TRANSFUSE RED BLOOD CELL [...] - 18 mmol/L 09/13/2020 10:28 AM CDT [facility] BUN 32(H) 7 - 18.7 mg/dL 09/13/2020 10:28 AM CDT [facility] Creatinine 0.85 0.57 - 1.11 mg/dL 09/13/2020 10:28 AM CDT [facility] eGFR by MDRD >60 >60 mL/min/1.7 3m2 09/13/2020 10:28 AM CDT [facility] eGFR by MDRD >60 >60 mL/min/1.7 3m2 09/13/2020 10:28 AM CDT [facility] Blood BLOOD SPECIMEN / Unknown Lab Venipuncture / Unknown 09/13/2020 9:55 AM CDT 09/13/2020 10:04 AM CDT Cielo Pink MD LAB - CHEMISTRY ORD ERABLES [facility] [address] [place] [address] * FOLATE (09/13/2020 9:55 AM CDT) Pathologist [facility] Folate 12.4 7.0 - 31.4 ng/mL 09/13/2020 4:50 PM CDT [facility] Blood BLOOD SPECIMEN / Unknown Lab Venipuncture / Unknown 09/13/2020 9:55 AM CDT 09/13/2020 10:04 AM CDT Cileo Pink MD LAB - CHEMISTRY ORD ERABLES [facility] [address] [place] [address] * VITAMIN B12 (09/13/2020 9:55 AM CDT) [facility] Vitamin B12 322 213 - 816 pg/mL 09/13/2020 4:50 PM CDT [facility] Blood BLOOD SPECIMEN / Unknown Lab Venipuncture / Unknown 09/13/2020 9:55 AM CDT 09/13/2020 10:04 AM CDT Cielo Pink MD LAB - CHEMISTRY ORD ERABLES Performing Organization Address City/[facility] Co de Phone Number [facility] [address] [place] [phone] * (ABNORMAL) IRON + TRANSFERRIN PANEL (09/13/2020 9:55 AM CDT) [facility] Iron 11(L) 50 - 170 ug/dL 09/13/2020 4:13 PM CDT [facility] Transferrin 313 180 - 382 mg/dL 09/13/2020 4:13 PM CDT [facility] TIBC Calculated 391 240 - 450 ug/dL 09/13/2020 4:13 PM CDT [facility] Iron Saturation % 3(L) 20 - 50 % 09/13/2020 4:13 PM CDT [facility] Blood BLOOD SPECIMEN / Unknown Lab Venipuncture / Unknown 09/13/2020 9:55 AM CDT 09/13/2020 10:04 AM CDT Cielo Pink MD LAB - CHEMISTRY ORD ERABLES [facility] [address] [place] [address] * FERRITIN (09/13/2020 9:55 AM CDT) Only the most recent of2 resultswithin the time period is included. [facility] Ferritin 12 5 - 204 ng/mL 09/13/2020 4:50 PM CDT [facility] Blood BLOOD SPECIMEN / Unknown Lab Venipuncture / Unknown 09/13/2020 9:55 AM CDT 09/13/2020 10:04 AM CDT Cielo Pink MD LAB - CHEMISTRY ORD ERABLES [facility] [address] [place] [address] * BLOOD TYPE VERIFICATION (09/13/2020 6:03 AM CDT) ABO Rh O POS 09/13/2020 9:0 6 AM CDT [facility] Blood Bank BLOOD SPECIMEN / Unknown Lab Venipuncture / Unknown 09/13/2020 6:03 AM CDT 09/13/2020 6:11 AM CDT John [place] MD LAB - BLOOD BANK ORDERABLES Performing Organization Address [facility] Co de Phone Number [facility] [address] [place] [address] * E ANTIGEN TYPING (SOFTBANK BB) (09/13/2020 5:08 AM CDT) E Antigen NEG 09/13/2020 11:04 AM CDT [facility] Blood Bank BLOOD SPECIMEN / Unknown Lab Venipuncture / Unknown 09/13/2020 5:08 AM CDT 09/13/2020 5:14 AM CDT Cielo Pink MD LAB - BLOOD BANK OR DERABLES Performing Organization Address City/[facility]/ZIP Co de Phone Number [facility] [address] [place] [address] * TYPE + SCREEN PANEL (09/13/2020 5:08 AM CDT) ABO Rh O POS 09/13/2020 9:06 AM CDT [facility] Comment:No history; collect retype. Antibody Screen POS 9:06 AM CDT [facility] Blood Bank BLOOD SPECIMEN / Unknown Lab Venipuncture / Unknown 09/13/2020 5:08 AM CDT 09/13/2020 5:14 AM CDT Cielo Pink MD LAB - BLOOD BANK OR DERABLES [facility] BLOOD BANK [address] [place] [address] * RUIZ DIRECT (09/13/2020 5:08 AM CDT) Direct Ruiz (NEGIN) NEG 09/13/2020 10:54 AM CDT [facility] Blood Bank BLOOD SPECIMEN / Unknown Lab Venipuncture / Unknown 09/13/2020 5:08 AM CDT 09/13/2020 5:14 AM CDT Cielo Pink MD LAB - BLOOD BANK OR DERABLES Performing Organization Address [facility] Co de Phone Number [facility] BLOOD BANK [address] [place] [address] * ANTIBODY IDENTIFICATION (09/13/2020 5:08 AM CDT) Antibody 1 POS, Anti-E 09/13/2020 11:15 AM CDT [facility] BLOOD [facility] Blood Bank BLOOD SPECIMEN / Unknown Lab Venipuncture / Unknown 09/13/2020 5:08 AM CDT 09/13/2020 5:14 AM CDT Cielo Pink MD LAB - BLOOD BANK OR DERABLES Performing Organization Address [facility] Co de Phone Number [facility] B[facility]OD [facility] [address] [place] [address] * (ABNORMAL) PT-INR (09/13/2020 5:08 AM CDT) PT 20.3(H) 12.1 - 14.8 sec 09/13/2020 5:31 AM CDT [facility] INR 1.8(H) 0.9 - 1.1 09/13/2020 5:31 AM CDT [facility] Blood BLOOD SPECIMEN / Unknown Lab Venipuncture / Unknown 09/13/2020 5:08 AM CDT 09/13/2020 5:14 AM CDT Narrative -[facility] - 09/13/2020 5:31 AM CDT Conventional Warfarin Anticoagulant Therapy: INR Reference Range: 2.0-3.0 Intensive Warfarin Anticoagulant Therapy: INR Reference Range: 2.5-3.5 Cielo Pink MD LAB - COAGULATION O RDERABLES Performing Organization Address City/[facility]/ZIP Co de Phone Number [facility] [address] [place] [phone] * PHOSPHORUS BLOOD (09/13/2020 5:08 AM CDT) [facility] Signature Phosphorus 3.3 2.3 - 4.7 mg/dL 09/13/2020 5:39 AM CDT [facility] Blood BLOOD SPECIMEN / Unknown Lab Venipuncture / Unknown 09/13/2020 5:08 AM CDT 09/13/2020 5:14 AM CDT Cielo Pink MD LAB - CHEMISTRY ORD ERABLES Performing Organization Address City/[facility] Co de Phone Number [facility] [address] [place] [phone] * CT ABDOMEN PELVIS W CONTRAST (12/19/2019 [...] ultrasound. Report dictated by Calos Oakley MD (vice president tax). I, Dr. KAYODE DOOLEY have personally reviewed [...] ultrasound. Report dictated by Calos Oakley MD (vice president tax). I, Dr. KAYODE DOOLEY have personally reviewed [...] - CHEMISTRY [place] Performing Organization Address [facility]/ZIP Co de Phone Number [address] [address], [place] [phone] * (ABNORMAL) AMMONIA (12/19/2019 12:58 PM CDT) Pathologist [facility] Ammonia 67(H) 11 - 64 umol/L 12/19/2019 1:49 PM CDT [facility] Blood BLOOD SPECIMEN / Unknown Venipuncture / Unknown 12/19/2019 12:58 PM CDT 12/19/2019 1:26 PM CDT Andie Martinez MD LAB - CHEMISTRY [place] Performing Organization Address [facility] Co de Phone Number [address] [address], [place] [phone] * ALCOHOL ETHYL BLOOD (12/19/2019 12:58 PM CDT) Pathologist [facility] Interpretation Ethanol None Detected None Detected mg/dL 12/19/2019 1:53 PM CDT [facility] Comment:Ethanol levels less than 10 mg/dL are resulted as None detected . Blood BLOOD SPECIMEN / Unknown Venipuncture / Unknown 12/19/2019 12:58 PM CDT 12/19/2019 1:26 PM CDT Andie Martinez MD LAB - CHEMISTRY [place] Performing Organization Address [facility]/ZIP Co de Phone Number [address] [address], [place] [phone] * (ABNORMAL) URINALYSIS W/MICROSCOPIC NO CULTURE (12/19/2019 12:14 PM CDT) Only the most recent of3 resultswithin the time period is included. Color UA Lindsey(A) Straw, Yellow, Colorless 12/19/2019 12:48 PM [facility] Clarity UA Cloudy(A) Clear, Slt Cloudy 12/19/2019 12:48 PM [facility] Specific [place] UA 1.026 1.005 - 1.030 12/19/2019 12:48 PM [facility] pH UA 5.0 5.0 - 8.0 pH 12/19/2019 12:48 PM [facility] Protein UA 2+(A) Negative mg/dL 12/19/2019 12:48 PM [facility] Glucose UA 1+(A) Negative mg/dL 12/19/2019 12:48 PM [facility] Ketone UA Negative Negative mg/dL 12/19/2019 12:48 PM [facility] Bilirubin UA Negative Negative mg/dL 12/19/2019 12:48 PM [facility] Blood UA 1+(A) Negative 12/19/2019 12:48 PM [facility] Nitrite UA Negative Negative 12/19/2019 12:48 PM [facility] Leukocyte Esterase Trace(A) Negative 12/19/2019 12:48 PM [facility] Urobilinogen UA 4.0(A) Negative mg/dL 12/19/2019 12:48 PM [facility] RBC UA 6-10(A) None Seen, 0-2, 3-5 /HPF 12/19/2019 12:48 PM [facility] WBC UA 0-5 None Seen, 0-5 /HPF 12/19/2019 12:48 PM [facility] Bacteria UA 3+(A) None, Trace /HPF 12/19/2019 12:48 PM [facility] Squamous Epithelial Cells UA >20(A) None Seen, 0-2 /HPF 12/19/2019 12:48 PM [facility] Renal Epithelial Cells UA 0-2 None Seen, 0-2 /HPF 12/19/2019 12:48 PM [facility] Mucus UA 1+ None, 1+ /LPF 12/19/2019 12:48 PM [facility] Urine URINE SPECIMEN OBTAINED BY CLEAN CATCH PROCEDURE / Unknown Collection / Unknown 12/19/2019 12:14 PM CDT 12/19/2019 12:22 PM CDT Narrative [facility] - 12/19/2019 12:48 PM CDT Andie Martinez MD LAB - URINALYSIS ORD ERABLES [facility] [address] [place] [address], [facility] [phone] * HCG URINE QUALITATIVE (12/19/2019 12:14 PM CDT) Test Urine Negative Negative 12/19/2019 12:40 PM CDT [facility] Urine URINE / Unknown Collection / Unknown 12/19/2019 12:14 PM CDT 12/19/2019 12:22 PM CDT Star Bocanegra MD LAB - URINALYSIS ORD ERABLES Performing Organization Address City/[facility]/ZIP Co de Phone Number [address] [address], [facility] [phone] * SMOOTH MUSCLE ANTIBODY W REFLEX TITER (12/12/2019 9:51 AM CDT) F-Actin Antibody IgG 19 0 - 19 Units 12/14/2019 9:32 PM CDT [employer] ([facility]) Comment: If F-Actin (Smooth Muscle) [...] suspicion for AIH is strong. Performed By: [employer] [address] [place] [address] Capping Machine Operator: Cielo Read MD Blood BLOOD SPECIMEN / Unknown Lab Venipuncture / Unknown 12/12/2019 9:51 AM CDT 12/12/2019 11:02 AM CDT Abby Jaquez ANESTHESIOLOGIST ASSISTANT-RETORT SETTER LAB - SEROL OGY ORDERABLES Performing Organization Address [facility]/ZIP Co de Phone Number [facility]) [address] [place] [address] * MITOCHONDRIAL ANTIBODY SCREEN (12/12/2019 9:51 AM CDT) Pathologist [facility] Mitochondrial M2 Antibody 4.0 0.0 - 24.9 Units 12/14/2019 9:32 PM CDT [facility] [employer] ([facility]) Comment: REFERENCE INTERVAL: Mitochondrial (M2) [...] does not rule out PBC. Performed By: [employer] [address] [place] [address] Capping Machine Operator: Cielo Read MD Blood BLOOD SPECIMEN / Unknown Lab Venipuncture / Unknown 12/12/2019 9:51 AM CDT 12/12/2019 11:02 AM CDT Tamir Becerra MD LAB - CHEMISTRY [place] Performing Organization Address City/[facility]/ZIP Co de Phone Number [facility] [employer] [facility]) [address] [place] [address] * KEVIN BLOOD SCREEN W/REFLEX TITER (12/12/2019 9:51 AM CDT) KEVIN IgG None Detected None Detected 12/14/2019 11:34 PM CDT [facility] [employer] ([facility]) Comment: If suspicion of connective tissue disease is strong and KEVIN EIA is negative, consider testing for KEVIN by IFA ([id number]). INTERPRETIVE INFORMATION: Anti-Nuclear Antibodies (KEVIN), IgG by HALI Antinuclear Antibodies (KEVIN), IgG by HALI: KEVIN specimens are screened using enzyme-linked immunosorbent assay (HALI) methodology. All HALI results reported as Detected are further tested by indirect fluorescent assay (IFA) using HEp-2 substrate with an IgG-specific conjugate. The KEVIN HALI screen is designed to detect antibodies against dsDNA, histones, SS-A (Ro), SS-B (La), Do, Do/SNOW PLOW TRACTOR OPERATOR, Scl-70, Shyanne-1, centromeric proteins, other antigens extracted from the HEp-2 cell nucleus. KEVIN HALI assays have been reported to have lower sensitivities than KEVIN IFA for systemic autoimmune rheumatic diseases (SARD). Negative results do not necessarily rule out SARD. Performed By: [employer] [address] [place] [address] Capping Machine Operator: Cielo Read MD Blood BLOOD SPECIMEN / Unknown Lab Venipuncture / Unknown 12/12/2019 9:51 AM CDT 12/12/2019 11:02 AM CDT Abby Jaquez ANESTHESIOLOGIST ASSISTANT-RETORT SETTER LAB - CHEMI STRY ORDERABLES [facility] [employer] [facility]) [address] [place] [address], [facility] * MICROSOMAL ANTIBODY LIVER/KIDNEY (12/12/2019 9:51 AM CDT) Liver/Kidney Microsomal Antibody IgG <1:20 <1:20 12/15/2019 4:35 PM CDT [facility] [employer] ([facility]) Comment: INTERPRETIVE INFORMATION: Jawcd-Ufceel-Qvcyslnka Abs, IgG Liver-Kidney Microsome IgG antibody (anti-LKM), as detected by indirect immunofluorescent antibody (IFA) techniques, may be observed in patients with autoimmune hepatitis type 2 (AIH-2), AIH-2 associated with autoimmune brkqnnezopkaarwlhj-wvlxmvsdplw-wclkublpne dystrophy (APECED), viral hepatitis C or D, and some forms of drug-induced hepatitis. This IFA does not differentiate among the four types of LKM antibodies (LKM-1, LKM-2, LKM-3, and a fourth type that recognizes CY and CY antigens). Of these, anti-LKM-1 (cytochrome [id number]) IgG antibodies are considered specific for AIH-2. Test developed and characteristics determined by [employer]. See Compliance Statement D: [employer]CS Performed By: [place] [address] Capping Machine Operator: Cielo Read MD Blood BLOOD SPECIMEN / Unknown Lab Venipuncture / Unknown 12/12/2019 9:51 AM CDT 12/12/2019 11:02 AM CDT Abby Jaquez ANESTHESIOLOGIST ASSISTANT-RETORT SETTER LAB - CHEMI STRY ORDERABLES Performing Organization Address [facility]/ZIP Co de Phone Number [facility]) [address] [place] [address] * TRANSFERRIN (12/12/2019 9:51 AM CDT) Transferrin 222 174 - 382 mg/dL 12/12/2019 1:19 PM CDT [facility] Transferrin Saturation % 24 16 - 50 % 12/12/2019 1:19 PM CDT [facility] Blood BLOOD SPECIMEN / Unknown Lab Venipuncture / Unknown 12/12/2019 9:51 AM CDT 12/12/2019 12:46 PM CDT Tamir Becerra MD LAB - CHEMISTRY [place] [address] [place] [address], [facility] [phone] * CERULOPLASMIN (12/12/2019 9:51 AM CDT) Ceruloplasmin 23 20 - 60 mg/dL 12/12/2019 1:18 PM CDT [facility] Blood BLOOD SPECIMEN / Unknown Lab Venipuncture / Unknown 12/12/2019 9:51 AM CDT 12/12/2019 12:46 PM CDT Abby Jaquez ANESTHESIOLOGIST ASSISTANT-RETORT SETTER LAB - CHEMI STRY ORDERABLES Performing Organization Address [facility]/ZIP Co de Phone Number [address] [address], [facility] [phone] * OHMIM-0-NFQEBIQQVPI BLOOD (12/12/2019 9:51 AM CDT) Pathologist [facility] Ukrji-8-Pgouwq ypsin 182 90 - 200 mg/dL 12/12/2019 11:32 AM CDT [facility] Blood BLOOD SPECIMEN / Unknown Lab Venipuncture / Unknown 12/12/2019 9:51 AM CDT 12/12/2019 11:02 AM CDT Abby Jaquez ANESTHESIOLOGIST ASSISTANT-RETORT SETTER LAB - CHEMI STRY ORDERABLES Performing Organization Address [facility] Co de Phone Number [address] [address], [facility] [phone] * IRON BLOOD (12/12/2019 9:51 AM CDT) Pathologist [facility] Iron 66 40 - 150 mcg/dL 12/12/2019 1:19 PM CDT [facility] Blood BLOOD SPECIMEN / Unknown Lab Venipuncture / Unknown 12/12/2019 9:51 AM CDT 12/12/2019 12:46 PM CDT Tamir Becerra MD LAB - CHEMISTRY [place] [address] [address], [facility] [phone] * HEPATITIS B SURFACE ANTIBODY (12/12/2019 9:51 AM CDT) Pathologist [facility] Hepatitis B Virus Surface Antibody Non-react abdirahman Non-react abdirahman 12/12/2019 1:37 PM CDT [facility] Comment: < 8 mIU/mL Hepatitis B surface Antibody (HBsAb). Nonreactive for HBsAb - individual is considered not immune to Hepatitis B Virus infection. Hepatitis B Surface Antibody Quantitative 0.3 <8.0 mIU/mL 12/12/2019 1:37 PM CDT [facility] Comment: Hepatitis B Surface Antibody Numeric Result Interpretation: Nonreactive: <8.0 mIU/mL Indeterminate: 8.0 - 12.0 mIU/mL Reactive: >12.0 mIU/mL Blood BLOOD SPECIMEN / Unknown Lab Venipuncture / Unknown 12/12/2019 9:51 AM CDT 12/12/2019 12:46 PM CDT Abby Jaquez APRN-RETORT SETTER LAB - CHEMI STRY ORDERABLES Performing Organization Address City/[facility]/ZIP Co de Phone Number [address] [address], [facility] [phone] * HEPATITIS B CORE ANTIBODY (12/12/2019 9:51 AM CDT) HBc Antibody Total Non-reacti ve Non-reacti ve 12/12/2019 12:07 PM CDT [facility] Blood BLOOD SPECIMEN / Unknown Lab Venipuncture / Unknown 12/12/2019 9:51 AM CDT 12/12/2019 11:02 AM CDT Abby Jaquez APRN-RETORT SETTER LAB - CHEMI STRY ORDERABLES Performing Organization Address City/[facility] Co de Phone Number [address] [address], [facility] [phone] * HEPATITIS B SURFACE ANTIGEN W RFLX CONFIRMATION (12/12/2019 9:51 AM CDT) Hepatitis B Virus Surface Antigen Non-reacti ve Non-reacti ve 12/12/2019 11:49 AM CDT [facility] Blood BLOOD SPECIMEN / Unknown Lab Venipuncture / Unknown 12/12/2019 9:51 AM CDT 12/12/2019 11:02 AM CDT Abby Jaquez ANESTHESIOLOGIST ASSISTANT-RETORT SETTER LAB - CHEMI STRY ORDERABLES [facility] [address] [place] [address], [place] [phone] * (ABNORMAL) IGG BLOOD (12/12/2019 9:51 AM CDT) Pathologist [facility] IgG 2,317(H) 540-1,822 mg/dL 12/12/2019 1:19 PM CDT [facility] Blood BLOOD SPECIMEN / Unknown Lab Venipuncture / Unknown 12/12/2019 9:51 AM CDT 12/12/2019 12:46 PM CDT Tamir Becerra MD LAB - CHEMISTRY [place] Performing Organization Address [facility] Co de Phone Number [address] [address], [place] [phone] * HEPATITIS C ANTIBODY (12/12/2019 9:51 AM CDT) Pathologist [facility] Hepatitis C Antibody Non-react abdirahman Non-reac tive [...] CDT 12/12/2019 11:02 AM CDT Abby Jaquez ANESTHESIOLOGIST ASSISTANT-RETORT SETTER LAB - CHEMI STRY ORDERABLES Performing Organization Address City/[facility]/ZIP Co de Phone Number [address] [address], [place] [phone] * US LIVER BIOPSY (10/22/2019 9:57 AM [...] evaluation, please review the evaluation forms in [facility]. For details on monitored clinical parameters during the intra-service sedation time, please review the procedure nurse documentation in [facility]. This report was electronically signed by [...] evaluation, please review the evaluation forms in [facility]. For details on monitored clinical parameters during the intra-service sedation time, pleasereview the procedure nurse documentation in [facility]. This report was electronically signed by DERRELL VELIZ on 10/22/2019 10:33AM . Ordering Provider Unlisted ORDERAB LES * (ABNORMAL) HEPATIC FUNCTION PANEL (10/22/2019 8:36 AM CDT) Protein Total 7.9 6.0 - 8.3 g/dL 020 9:13 AM T [facility] Albumin 3.1(L) 3.4 - 5.0 g/dL 10/22/2019 9:13 AM [facility] Bilirubin Total 1.3(H) 0.2 - 1.2 mg/dL 05/2019 9:13 AM [facility] Bilirubin Conjugated 0.9(H) 0.0 - 0.5 mg/dL 10/22/2019 9:13 AM [facility] Bilirubin Unconjugated 0.4 Unconjugated Bilirubin is a calculated value: Reference ranges have not been established. mg/dL 10/22/2019 9:13 AM [facility] Alkaline Phosphatase 133 40 - 150 Units/L 10/22/2019 9:13 AM [facility] ALT 26 0 - 55 Units/L 10/22/2019 9:13 AM [facility] AST 60(H) 5 - 34 Units/L 10/22/2019 9:13 AM [facility] Albumin/Globulin Ratio 0.6(L) 1.1 - 2.3 10/22/2019 9:13 AM [facility] Blood BLOOD SPECIMEN / Unknown Venipuncture / Unknown 10/22/2019 8:36 AM CDT 10/22/2019 8:41 AM CDT García Levine MD LAB - CHEMISTRY ORDYazmin VILLA [facility] Organization Address City/State/ZIP Co de Phone Number [facility] [address] [place] [phone], [facility] [phone] * UT LIVER ELASTOGRAPHY (03/25/2019 10:57 PM RAILROAD TRACK MECHANIC) Narrative Nitesh Galvan MD - 03/25/2019 10:57 PM RAILROAD TRACK MECHANIC Nitesh Galvan MD 03/25/2019 10:57 PM Diagnosis: [...] patients with nonalcoholic fatty liver disease. Gastroenterology 2019;156:1750-4094. Meir MS, Kate R, Van Natmarcie ML, [...] FIB4 score (Long et al. [employer] 2019;3:9472-9070) or NAFLD Fibrosis score (Melvin et al. Clinical Gastroenterology and Hepatology 2019;17:5736-4030. from routine clinical data. 3. Liver stiffness [...] change as additional supporting data becomes available. [email or web address] Nitesh Bonilla MD PROCEDURE/ MINOR SURGICAL ORDERABLES * (ABNORMAL) GLUCOSE ACCUCHECK (05/13/2016 9:07 AM RAILROAD TRACK MECHANIC) Only the most recent of6 resultswithin the time period is included. Glucose, Fingerstick 244(H) 70-115mg/d L mg/dL [facility]) Comment:Derrick Boat Runner: ALOK MCKEON 05/13/2016 9:07 AM RAILROAD TRACK MECHANIC Yamil Luther MD LAB - CHEMISTRY [place] [facility]) * HCG URINE QUALITATIVE - POCT (IP) [facility] (05/13/2016 7:22 AM RAILROAD TRACK MECHANIC) Only the most recent of12 resultswithin the time period is included. NEGATIVE [facility] Comment:Derrick Boat Runner: JAS DAY 05/13/2016 7:22 AM RAILROAD TRACK MECHANIC Yamil Luther MD LAB - POINT OF CARE ORDERABLES Performing Organization Address [facility]/ZIP Co de Phone Number [facility] GALI (TAMMY) * CULTURE AEROBIC (03/27/2015 9:57 AM RAILROAD TRACK MECHANIC) Culture Aerobic No Growth at 1 week [facility] Gram Stain [facility] Comment:donor ring only Cornea 03/27/2015 9:57 AM RAILROAD TRACK MECHANIC 03/28/2015 11:58 AM RAILROAD TRACK MECHANIC Narrative [facility] - 04/03/2015 12:20 PM RAILROAD TRACK MECHANIC Specimen Type->Cornea Gram Stains are routinely screened for the presence of Polymorphonuclear Cells. Original canceled order as anaerobic culture m850. Yamil Luther MD LAB - MICROBIOLOGY O RDERABLES Performing Organization Address [facility] Co de Phone Number [address] [phone] * CULTURE URINE (01/21/2015 9:16 PM RAILROAD TRACK MECHANIC) Culture Urine Less than 10,000 CFU/ML of Normal Urogenital/ Skin Ailyn [facility] Comment: Urine specimen (specimen) URINE / Unknown 01/21/2015 9:16 PM RAILROAD TRACK MECHANIC 01/21/2015 9:22 PM RAILROAD TRACK MECHANIC Narrative [facility] - 01/23/2015 10:28 AM RAILROAD TRACK MECHANIC Specimen Type->Urine Rosie Squires MD LAB - MICROBIOLOGY O RDERABLES Performing Organization Address [facility]/ZIP Co de Phone Number [address] [phone] * CT ABDOMEN PELVIS WO CONTRAST (01/21/2015 7:32 PM RAILROAD TRACK MECHANIC) Only the most recent of2 resultswithin the time period is included. Anatomical Region Laterality Modality Abdomen, Pelvis Other Impressions 01/22/2015 8:46 AM RAILROAD TRACK MECHANIC IMPRESSION: 1. No evidence of nephrolithiasis, hydroureteronephrosis [...] 8:46 AM . Narrative 01/22/2015 8:46 AM RAILROAD TRACK MECHANIC EXAMINATION: Computed tomography (CT) of the abdomen [...] UA Yellow Straw, Yellow, Colorless, Light Yellow [facility] Clarity UA Clear Clear [facility] Specific [place] UA 1.021 1.001 - 1.030 [facility] pH UA 5.5 5.0 - 8.0 [facility] Protein UA Negative <=20 mg/dL [facility] Glucose UA >1000(A) Negative mg/dL [facility] Ketone UA Negative Negative mg/dL [facility] Bilirubin UA Negative Negative mg/dL [facility] Blood UA Negative Negative [facility] Nitrite UA Negative Negative [facility] Leukocyte Esterase Negative Negative [facility] Urobilinogen UA <2.0 <2.0 mg/dL [facility] RBC UA 1 0 - 8 /HPF [facility] WBC UA <1 0 - 2 /HPF [facility] Squamous Epithelial Cells UA 3(H) 0 - 1 /HPF [facility] Mucus UA Rare(A) None /LPF [facility] Urine specimen (specimen) 12/11/2014 3:37 PM CDT 12/11/2014 3:46 PM CDT Simon Malone MD LAB - URINALYSIS ORD ERABLES [address] [phone] * (ABNORMAL) DIFFERENTIAL MANUAL (01/27/2014 9:01 PM RAILROAD TRACK MECHANIC) WBC (corrected for NRBC) 10.4 10 3/uL [facility] Total Cell Count 100 [facility] Neutrophils Absolute Manual 5.72 1.60 - 7.00 10 3/uL [facility] Comment:(BANDS+SEGS) x WBC = NEUT # (ANC) Lymphocyte Absolute Manual 3.64(H) 0.80 - 2.90 10 3/uL [facility] Monocytes Absolute Manual 0.62 0.14 - 0.66 10 3/uL [facility] Eosinophils Absolute Manual 0.42(H) 0.00 - 0.22 10 3/uL [facility] Neutrophil % Manual 55 30 - 60 % [facility] Lymphocyte % Manual 35 20 - 45 % [facility] Monocytes % Manual 6 2 - 10 % [facility] Eosinophils % Manual 4 1 - 6 % [facility] Platelet Estimate Adequate Adequate [facility] RBC Morphology Normal [facility] Blood specimen (specimen) BLOOD SPECIMEN / Unknown 01/27/2014 9:01 PM RAILROAD TRACK ME[employer] 01/27/2014 9:18 PM [employer]ILRO[employer] TRACK MECH[employer]IC Jose Murray MD LAB - HEMATOLOGY ORD ERABLES [address] [phone] * GLUCOSE - POINT OF CARE (AMB) [facility] (01/12/2014 8:24 PM CDT) Only the most recent of4 resultswithin the time period is included. Simon Malone MD LAB - POINT OF CARE ORDERABLES [facility] RAD[facility]OLOG[facility] * (ABNORMAL) INFLUENZA A+B ANTIGEN RAPID (01/12/2014 7:34 PM CDT) Influenza A Rapid Test Positive(A) Negative [facility] Influenza B Rapid Test Negative Negative [facility] Nasopharyngeal SPECIMEN FROM NASOPHARYNGEAL STRUCTURE / Unknown 01/12/2014 7:34 PM CDT 01/12/2014 7:55 PM CDT Narrative [facility] - 01/12/2014 8:22 PM CDT Specimen [...] by calling the Director of Microbiology at [phone]. Simon Malone MD LAB - MICROBIOLOGY [facility] [address] [place] [address], [facility] [phone] * XR CHEST 2VW (01/12/2014 7:14 PM [...] . Simon Malone [facility] Care Teams C Java Developer Relationship Specialty Start Date End Date Malika Campbell, ANESTHESIOLOGIST ASSISTANT-RETORT SETTER [address] [place] [phone] PCP - General 04/09/22
--- OUTSIDE RECORDS SUMMARY | 2024-05-04 18:50 | XMS_ITS | Encounter Summary ---
Author Organization [facility] Address [address] [place] [address] Care Team Providers Care Solar Tech Name Role Phone Unavailable Primary Care Provider Unavailabl e Reason for Visit * Reason Onset Date Comments Broken humerus 12/20/2023 [place] @ [facility] Encounter Details Date Type Department Care Team (Late st Contact Info) Description 12/20/2023 Telephone [facility] Admitting [address] [place] [address] [place] [address] [place] [address] Broken humerus ([place] @ DR. [...]
--- OUTSIDE RECORDS SUMMARY | 2024-05-04 18:50 | XMS_ITS | Encounter Summary ---
Author Organization [facility] Address [address] [facility] [place] [address] Care Team Providers Care Supervisor Die Casting Name Role Phone Debra Ramires SLEEP SCIENTIST-MANAGEMENT SCIENTIST Primary Care Provider Malika Campbell SLEEP SCIENTIST-MANAGEMENT SCIENTIST Primary Care Provider [phone] Debra Ramires SLEEP SCIENTIST-MANAGEMENT SCIENTIST Primary Care Provider Malika Campbell SLEEP SCIENTIST-MANAGEMENT SCIENTIST Primary Care Provider [phone] Malika Campbell SLEEP SCIENTIST-MANAGEMENT SCIENTIST Primary Care Provider [phone] Encounter Details Date Type Department Care Team (Late st Contact Info) Description 11/21/2017 Ophth Exam [facility] [address] [place] [address] Geraldo Grullon MD [address] DEPT [place] [id number] Social History Tobacco Use Types Packs/Day Years [...] on filedocumented in this encounter Care Teams Supervisor Die Casting Relationship Specialty Start Date End Date Debra Ramires APRN-CNP [address] [place] [phone] PCP - General 04/10/15 09/12/20 Malika Campbell APRN-CNP [address] [place] [phone] PCP - General Nurse Practitioner Family 09/13/2009/23 Debra Ramires APRN-CNP [address] [place] [phone] PCP - General 09/24/20 09/30/20 Malika Campbell APRN-CNP [address] [place] [phone] PCP - General 10/01/20 04/08/22 Malika Campbell APRN-CNP [address] [place] [phone] PCP - General 04/09/22 documented as of this encounter
--- OUTSIDE RECORDS SUMMARY | 2024-05-04 18:50 | XMS_ITS | Encounter Summary ---
Author Organization [facility] Address [address] [place] [address] Care Team Providers Care Curtains And Draperies Salesperson Name Role Phone Debra Ramires COMBINATION MACHINE TOOL SETTER-REED FIXER Primary Care Provider Malika Campbell COMBINATION MACHINE TOOL SETTER-REED FIXER Primary Care Provider [phone] Debra Ramires COMBINATION MACHINE TOOL SETTER-REED FIXER Primary Care Provider Malika Campbell COMBINATION MACHINE TOOL SETTER-REED FIXER Primary Care Provider [phone] Malika Campbell COMBINATION MACHINE TOOL SETTER-REED FIXER Primary Care Provider [phone] Encounter Details Date Type Department Care Team (Late st Contact Info) Description 10/02/2017 Ophth Exam [facility] [place] [address] Carmelo Olsen MD [facility] [place] [address] Social History Tobacco Use Types Packs/Day Years [...] on filedocumented in this encounter Care Teams Curtains [employer] Draper[employer] Salesperson Relationship Specialty Start Date End Date Debra Ramires APRN-REED FIXER [address] [facility] [address] [place] [phone] PCP - General 04/10/15 09/12/20 Malika Campbell APRN-REED FIXER [address] [facility] [address] [place] [phone] PCP - General Nurse Practitioner [facility] 09/13/2009/23 Debra Ramires APRN-REED FIXER [address] [facility] [address] [place] [phone] PCP - General 09/24/20 09/30/20 Malika Campbell APRN-REED FIXER [address] [place] [phone] PCP - General 10/01/20 04/08/22 Malika Campbell APRN-REED FIXER [address] [place] [phone] PCP - General 04/09/22 documented as of this encounter
--- OUTSIDE RECORDS SUMMARY | 2024-05-04 18:50 | XMS_ITS | Referral Summary ---
Author Organization [facility] Address [address] [place] [address] Care Team Providers Care Home Delivery Driver Name Role Phone Barbara Oliva MD Primary Care Provider Miscellaneous, Not In File Unavailable Unava ilable Encounters Date Type Department Care Team Description 04/20/2024 10:00 AM BOTTOM FILLER Office Visit [facility] Radiology, Interventional Radiology [address] [place] [phone] Sophie Herman PA Dysphagia, oropharyngeal (Primary Dx); Gastrostomy tube in place (HCC) 04/19/2024 Telephone [facility] Radiology, Interventional Radiology [address] [place] [address] [phone] Iker Neal 04/19/2024 Telephone [facility] Radiology, Interventional Radiology [address] [place] [address] [phone] Luma Bach Scheduling Appointments 04/13/2024 Telephone [facility] Radiology, Interventional Radiology [address] [place] [address] [phone] Jessica Beltran RN Appointment 03/26/2024 Telephone [facility] [address] [facility] 4th Floor [address] [place] [address] Yuni Balderrama 02/27/2024 9:50 AM BOTTOM FILLER Office [facility] [address] [facility] 4th Floor [address] [place] [address] Traumatic closed displaced fracture of surgical neck of right humerus, with routine healing, subsequent encounter (Primary Dx) 02/23/2024 Telephone [facility] Radiology [place] [address] [place] [address] Naila Sheehan, KILLIAN 02/14/2024 Telephone [facility] Radiology [address] [place] [phone] Loni Aragon RN 02/14/2024 Orders Only [facility] Radiology [address] [place] [phone] Loni Aragon RN 02/13/2024 Treatment [facility] PATHOLOGY [address] [facility] 3rd [place] [address] Andie Byrne MD 01/26/2024 9:52 PM BOTTOM FILLER - 02/13/2024 1:30 PM BOTTOM FILLER Hospital Encounter [address] [phone] Néstor Blevins MD [place], MD Roger Rubalcava, MD Roberta Hamilton, MD Alberta Yin, Kassidy Rodrigez MD Pressure injury of sacral region, stage 4 (HCC) (Primary Dx); Other closed displaced fracture of proximal end of right humerus, initial encounter; Severe malnutrition (CMS/HCC); Oropharyngeal dysphagia Discharge Disposition: Discharge to [facility] 02/07/2024 Orders Only [address] [phone] Jorge Carolina MD PhD 02/06/[address] 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 No [facility] Problem Noted Date Diagnosed Date Acute blood loss anemia 02/02/2024 Assessment & Plan (02/12/2024 12:56 PM BOTTOM FILLER): Present on admit, f/u hemoglobin was 6.6 [...] 01/27/2024 Assessment & Plan (02/12/2024 12:58 PM BOTTOM FILLER): INR 1.39 on admission. History of Doan cirrhosis. Other contibutors may be DOAC vs nutritional. Treated with vitamin K PO 01/26-01/28 F/u INR 1.51 in setting of cirrhosis. Hx chronic LUE DVT. Lovenox held due to anemia. No recent spontaneous bleeding noted. Monitor coags PRN Cirrhosis 01/27/2024 Overview (02/08/2024): History of Doan cirrhosis as per patient. Patient follows with [facility] liver doctor, last seen couple of years ago. -CT11/5: changes of cirrhosis with stigmata of portal hypertension including splenomegaly, recanalized periumbilical vein, small volume ascites, and mild diffuse anasarca. -Liver enzyme elevation could be from DOAN cirrhosis, ongoing antibiotics. -Hepatitis panel negative Assessment & Plan (02/12/2024 12:46 PM BOTTOM FILLER): History of Doan cirrhosis as per patient. Patient follows with [facility] liver doctor, last seen couple of years [...] Continue to monitor. Plan OP return to [facility] liver clinic, strongly encouraged patient to call for follow up. Chronic deep vein thrombosis (DVT) of left upper extremity 01/26/2024 Assessment & Plan (02/12/2024 12:57 PM BOTTOM FILLER): Known chronic DVT in left upper extremity distal brachial vein noted 12/2023, home Lovenox held due to recurring anemia requiring blood transfusions and did not tolerate therapeutic AC. Received recent Vit K supplementation this admit. Acute osteomyelitis of sacrum (CMS/HCC) 01/26/20 Assessment & Plan (02/10/2024 1:17 PM BOTTOM FILLER): Initial encounter, likely has been evolving since [...] needed. Assessment & Plan (02/12/2024 12:59 PM BOTTOM FILLER): -Prior history: General surgery consulted 01/09 at [...] NGTD. -will need a line placed for fpc IV antibiotics, unable to use RUE (recent [...] 11/24. Fax weekly Labs (CBC, CMP) To: [facility] ([phone]) Complication associated with peripherally inserted central catheter 01/17/2024 Renal abscess 01/17/2024 Assessment & Plan (02/12/2024 12:45 PM BOTTOM FILLER): POA, associated with pyelonephritis, as above. Resolved. Assessment & Plan (02/10/2024 1:14 PM BOTTOM FILLER): 37 y.o. female with PMH including cirrhosis of the liver, DM2, R foot OM with partial amputation who was transferred to [facility] 01/25 for pyelonephritis and renal abscess. [...] with wound vac placement and transferred to [facility]. 01/25 admission to [facility]. Repeat CT A/P shows stable/slight decrease [...] 01/03/2024 Assessment & Plan (02/12/2024 12:45 PM BOTTOM FILLER): Initially admitted to OSH with prolonged hospitalization s/p G-tube on 12/26/2023 for TFs related to prior dysphagia. 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), Acute dysphagia mostly resolved, presents with mild [...] elsewhere 12/11/2023 Acute respiratory failure with hypoxia ([facility]/HCC) 12/10/2023 Acute upper GI hemorrhage 12/10/2023 Aspiration pneumonia of both lower lobes due to gastric secretions 12/10/2023 Bacteremia 12/10/2023 Elevated troponin 12/10/2023 High anion gap metabolic acidosis 12/10/2023 Osteomyelitis of left lower extremity ([facility]/HCC) 12/10/2023 Other specified abnormal findings of blood chemi stry 12/10/2023 Pneumonitis due to inhalation of food and vomit ([facility]/HCC) 12/10/2023 Melena 12/09/2023 Closed fracture of proximal end of right humerus with routine healing 12/05/2023 NSTEMI (non-ST elevated myocardial infarction) ( [facility]) 12/05/2023 Diabetic foot infection ([facility]/HCC) 12/05/2023 Acute hematogenous osteomyelitis of left foot Traumatic closed displaced f racture of surgical neck of right humerus, with routine healing, subsequent encounter 12/01/2023 Assessment & Plan (02/12/2024 12:42 PM BOTTOM FILLER): Hx of Right shoulder fx in 11/2023, [...] 12/01/2023 Assessment & Plan (02/10/2024 12:56 PM BOTTOM FILLER): -Pt with ICU admission 12/08 with enterobacter bacteremia and UTI. Represented to OSH 01/[address] c/f pyelonephritis and multiple renal abscesses to L kidney. She was started on Meropenem. UA later grew ESBL e coli and enterobacter aerogenes. Transferred to [facility] for IR evaluation - BCx 01/08 [...] 09/13/2020 Assessment & Plan (02/12/2024 12:44 PM BOTTOM FILLER): Continue OSH insulin regimen: Lantus 8 Qpm + SSI, carb consistent diet. Continue to monitor serial accuchecks A1c previously 10.6, (poor OP control) and not checked this admit. Improved glucose control this admit. Anticipate close OP monitoring and follow up for goal care with underlying cirrhosis. NELIDA (acute kidney injury) 09/13/2020 Assessment & Plan (02/12/2024 12:57 PM BOTTOM FILLER): Associated with hyperkalemia. Likely from decreased p.o. 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 Uric acid normal. ESR CRP elevated Examination benign, would hold off on MRI for now Diarrhea 01/27/2024 02/05/2024 Assessment & Plan (01/27/2024 4:24 PM BOTTOM FILLER): Questionable diarrhea on admission to OSH. Patient reports normal bowel movements. Closed fracture of right proximal humerus 01/09/2024 02/04/2024 Anemia requiring transfusions 01/03/2024 02/03/2024 Assessment & Plan (01/27/2024 4:26 PM BOTTOM FILLER): Likely AoCD. Received 1 unit earlier in OSH admission. Hgb 8-9. - Hgb >7, blood consent in chart. Immunizations Name Administration Dates Next Due Influenza, Trivalent, Preservative Free, Intramu scular 02/03/2024 Social History Tobacco Use Types Packs/Day Years Used Date Smoking Tobacco: Every Day Cigarettes Passive Smoke Exposure: Never Smokeless Tobacco: Never Tobacco Cessation:Ready to Q uit: Not Asked; Counseling Given: Not Answered [facility] Social & Beyondities Answer Date Recorded In the past 12 months has [employer], [employer], oil, or water [employer] threatened to shut off services in your [...] any clubs o r organizations such as confucianism groups, unions, fraternal or athletic groups, or [...] any time in the past 12 m [facility], were you homeless or living in a prison (including now)? No 01/29/2024 Personal Safety Answer Date Recorded Have you ever been in or are you currently in a harmful physical or emotional relationship or is someone making you feel afraid or unsafe? Denies 02/10/2024 Comments No Sex and Gender Information Value Date Recorded Sex Assigned at Not on file Legal Sex Female 5:35 AM BOTTOM FILLER Gender Identity Not on file Sexual Orientation Not on file Last Filed Vital Signs Vital Sign Reading Time Taken Comments Blood Pressure 116/80 02/13/2024 10:42 AM BOTTOM FILLER Pulse 106 02/13/2024 10:42 AM BOTTOM FILLER Temperature 37 C (98.6 F) 02/13/2024 5:38 AM BOTTOM FILLER Respiratory Rate 18 02/13/2024 5:38 AM BOTTOM FILLER Oxygen Saturation 95% 02/13/2024 10:42 AM BOTTOM FILLER Inhaled Oxygen Concentration - - Weight 72.6 kg (160 lb) 04/20/2024 10:04 AM BOTTOM FILLER Height 170.2 cm (5' 7 ) 04/20/2024 10:04 AM BOTTOM FILLER Body Mass Index 25.06 04/20/2024 10:04 AM BOTTOM FILLER Plan of Treatment Not on file Medical Devices Implanted Type Area Jacquard Loom Carpet Weaver Device Identifier Shelf Expiration Date Model / Serial / Lot Musculoskeletal Transplant [id number] Mm Allograft Frozen Graft Bone Fibula Shaft [id number] - [id number] - [id number] Implanted:Qty: 1 on 01/31/2024 by Monika Gilbert MD at [facility] Bone Right: Humerus Musculoskeletal Transplant [id number] 07/06/2027 [id number] / [id number] / Synthes Lcp Combi Philos [id number] 5 Hole Shaft Lock Compression 241.903 - [id number] Implanted:Qty: 1 on 01/31/2024 by Monika Gilbert MD at [facility] Plate Right: Humerus Synthes 241.903 / / Synthes 3.5mm 2.9mm 44mm Self Tap Lock Stardrive Conical Head T15 Full 212.134 - [id number] Implanted:Qty: 1 on 01/31/2024 by Monika Gilbert MD at [facility] Screw Right: Humerus Synthes 212.134 / / Synthes 3.5mm 6mm 60mm 2.5mm Self Tap Small Hexagonal Socket Low Profile 204.860 - [id number] Implanted:Qty: 1 on 01/31/2024 by Monika Gilbert MD at [facility] Screw Right: Humerus Synthes 204.860 / / Synthes 3.5mm 6mm 32mm 2.5mm Self Tap Small Hexagonal Socket Low Profile 204.832 - [id number] Implanted:Qty: 2 on 01/31/2024 by Monika Gilbert MD at [facility] Screw Right: Humerus Synthes 204.832 / / Synthes 3.5mm 54mm Self Tap Lock Stardrive T15 Full Thread Screw Bone 02.212.054 - [id number] Implanted:Qty: 4 on 01/31/2024 by Monika Gilbert MD at [facility] Screw Right: Humerus Synthes 02.212.0 54 / / Synthes 3.5mm 2.9mm 32mm Self Tap Lock Stardrive Conical Head T15 Full 212.112 - [id number] Implanted:Qty: 2 on 01/31/2024 by Monika Gilbert MD at [facility] Screw Right: Humerus Synthes 212.112 / / Synthes 3.5mm 2.9mm 46mm Self Tap Lock Stardrive Conical Head T15 Full 212.136 - [id number] Implanted:Qty: 1 on 01/31/2024 by Monika Gilbert MD at [facility] Screw Right: Humerus Synthes I 212.136 / / Synthes 3.5mm 2.9mm 42mm Self Tap Lock Stardrive Conical Head Full Thread 212.118 - [id number] Implanted:Qty: 1 on 01/31/2024 by Monika Gilbert MD at [facility] Screw Right: Humerus Synthes I 212.118 / / Synthes 3.5mm 2.9mm 48mm Self Tap Lock Fix Angle Low Profile Pelvis Full 212.120 - [id number] Implanted:Qty: 1 on 01/31/2024 by Monika Gilbert MD at [facility] Screw Right: Humerus Synthes I 212.120 / / Synthes 3.5mm 2.9mm 55mm Self Tap Lock Stardrive Conical Head Pelvis Full 212.123 - [id number] Implanted:Qty: 1 on 01/31/2024 by Monika Gilbert MD at [facility] Screw Right: Humerus Synthes 212.123 / / Explanted Type Area Jacquard Loom Carpet Weaver Device Identifier Shelf Expiration Date Model / Serial / Lot Synthes 3.5mm 6mm 30mm 2.5mm Self Tap Small Hexagonal Socket Low Profile 204.830 - [id number] Explanted:Qty: 1 on 01/31/2024 by Monika Gilbert MD at [facility] Screw Right: Humerus Synthes 204.830 / / Procedures Procedure Name Priority Date/Time Associated Diagnosis Comments POCT GLUCOSE DEVICE Routine 02/13/2024 11:47 AM BOTTOM FILLER POCT GLUCOSE DEVICE Routine 02/13/2024 7 :56 AM BOTTOM FILLER EGFR Routine 02/12/2024 11:57 PM BOTTOM FILLER DIFFERENTIAL AUTO Routine 02/12/2024 11:57 PM BOTTOM FILLER HEPATIC FUNCTION PANEL Routine 11:57 PM BOTTOM FILLER PHOSPHORUS Routine 02/12/2024 11:57 PM BOTTOM FILLER MAGNESIUM Routine 02/12/2024 11:57 PM BOTTOM FILLER BASIC METABOLIC PANEL Routine 02/12/2024 11:57 PM BOTTOM FILLER CBC WITH AUTO DIFFERENTIAL Routine 02/12/2024 11:57 PM BOTTOM FILLER POCT GLUCOSE DEVICE Routine 02/12/2024 8 :27 PM BOTTOM FILLER POCT GLUCOSE DEVICE Routine 02/12/2024 5 :13 PM BOTTOM FILLER POCT GLUCOSE DEVICE Routine 02/12/2024 12:27 PM BOTTOM FILLER POCT GLUCOSE DEVICE Routine 02/12/2024 9 :21 AM BOTTOM FILLER POCT GLUCOSE DEVICE Routine 02/12/2024 8 :02 AM BOTTOM FILLER EGFR Routine 02/11/2024 11:54 PM BOTTOM FILLER DIFFERENTIAL AUTO Routine 02/11/2024 11:54 PM BOTTOM FILLER HEPATIC FUNCTION PANEL Routine 11:54 PM BOTTOM FILLER PHOSPHORUS Routine 02/11/2024 11:54 PM BOTTOM FILLER MAGNESIUM Routine 02/11/2024 11:54 PM BOTTOM FILLER BASIC METABOLIC PANEL Routine 02/11/2024 11:54 PM BOTTOM FILLER CBC WITH AUTO DIFFERENTIAL Routine 02/11/2024 11:54 PM BOTTOM FILLER POCT GLUCOSE DEVICE Routine 02/11/2024 8 :20 PM BOTTOM FILLER POCT GLUCOSE DEVICE Routine 02/11/2024 4 :42 PM BOTTOM FILLER POCT GLUCOSE DEVICE Routine 02/11/2024 7 :33 AM BOTTOM FILLER B RYDER C3 Routine 02/11/2024 12:30 AM BOTTOM FILLER B RYDER IGG Routine 02/11/2024 12:30 AM BOTTOM FILLER ANTIBODY IDENTIFICATION Routine 02/10/20 10:02 PM BOTTOM FILLER TRANSFUSION REACTION EVALUATION Timed 02/10/2024 8:51 PM BOTTOM FILLER DIRECT ANTIGLOBULIN TEST Timed 02/10/2024 8:51 PM BOTTOM FILLER EGFR Routine 02/10/2024 8:51 PM BOTTOM FILLER DIFFERENTIAL AUTO Routine 02/10/2024 8:5 1 PM BOTTOM FILLER TYPE AND SCREEN Timed 02/10/2024 8:51 PM BOTTOM FILLER HEPATIC FUNCTION PANEL Routine 8:51 PM BOTTOM FILLER PHOSPHORUS Routine 02/10/2024 8:51 PM BOTTOM FILLER MAGNESIUM Routine 02/10/2024 8:51 PM BOTTOM FILLER BASIC METABOLIC PANEL Routine 02/10/2024 8:51 PM BOTTOM FILLER CBC WITH AUTO DIFFERENTIAL Routine 02/10/2024 8:51 PM BOTTOM FILLER POCT GLUCOSE DEVICE Routine 02/10/2024 8 :28 PM BOTTOM FILLER POCT GLUCOSE DEVICE Routine 02/10/2024 5 :13 PM BOTTOM FILLER CENTRAL LINE PLACEMENT > 5 YEARS IP Routine 02/10/2024 3:32 PM BOTTOM FILLER POCT GLUCOSE DEVICE Routine 02/10/2024 12:31 PM BOTTOM FILLER POCT GLUCOSE DEVICE Routine 02/10/2024 8 :15 AM BOTTOM FILLER EGFR Routine 02/09/2024 9:52 PM BOTTOM FILLER DIFFERENTIAL AUTO Routine 02/09/2024 9:5 2 PM BOTTOM FILLER VANCOMYCIN LEVEL RANDOM Routine 02/09/20 9:52 PM BOTTOM FILLER HEPATIC FUNCTION PANEL Routine 9:52 PM BOTTOM FILLER PHOSPHORUS Routine 02/09/2024 9:52 PM BOTTOM FILLER MAGNESIUM Routine 02/09/2024 9:52 PM BOTTOM FILLER BASIC METABOLIC PANEL Routine 02/09/2024 9:52 PM BOTTOM FILLER CBC WITH AUTO DIFFERENTIAL Routine 02/09/2024 9:52 PM BOTTOM FILLER POCT GLUCOSE DEVICE Routine 02/09/2024 8 :32 PM BOTTOM FILLER POCT GLUCOSE DEVICE Routine 02/09/2024 5 :55 PM BOTTOM FILLER URINALYSIS, MICROSCOPIC ONLY STAT 02/09/2024 5:09 PM BOTTOM FILLER URINE CULTURE STAT 02/09/2024 5:09 PM BOTTOM FILLER URINALYSIS AND REFLEX TO MICROSCOPIC AND CULTURE STAT 02/09/2024 5:09 PM BOTTOM FILLER XR ABDOMEN AP 1 VIEW ED Urgent/IP Urgent 02/09/2024 4:09 PM BOTTOM FILLER POCT GLUCOSE DEVICE Routine 02/09/2024 12:51 PM BOTTOM FILLER POCT GLUCOSE DEVICE Routine 02/09/2024 7 :40 AM BOTTOM FILLER EGFR Timed 02/09/2024 12:07 AM BOTTOM FILLER CREATININE Timed 02/09/2024 12:07 AM BOTTOM FILLER VANCOMYCIN LEVEL RANDOM Routine 02/08/20 9:50 PM BOTTOM FILLER EGFR Routine 02/08/2024 9:50 PM BOTTOM FILLER DIFFERENTIAL AUTO Routine 02/08/2024 9:5 0 PM BOTTOM FILLER PROTIME-INR Routine 02/08/2024 9:50 PM BOTTOM FILLER HEPATIC FUNCTION PANEL Routine 9:50 PM BOTTOM FILLER PHOSPHORUS Routine 02/08/2024 9:50 PM BOTTOM FILLER MAGNESIUM Routine 02/08/2024 9:50 PM BOTTOM FILLER BASIC METABOLIC PANEL Routine 02/08/2024 9:50 PM BOTTOM FILLER CBC WITH AUTO DIFFERENTIAL Routine 02/08/2024 9:50 PM BOTTOM FILLER POCT GLUCOSE DEVICE Routine 02/08/2024 8 :31 PM BOTTOM FILLER POCT GLUCOSE DEVICE Routine 02/08/2024 5 :56 PM BOTTOM FILLER VANCOMYCIN LEVEL TROUGH Timed 02/08/20 1:55 PM BOTTOM FILLER POCT GLUCOSE DEVICE Routine 02/08/2024 11:40 AM BOTTOM FILLER POCT GLUCOSE DEVICE Routine 02/08/2024 8 :20 AM BOTTOM FILLER EGFR Routine 02/07/2024 9:30 PM BOTTOM FILLER DIFFERENTIAL AUTO Routine 02/07/2024 9:3 0 PM BOTTOM FILLER HEPATIC FUNCTION PANEL Routine 9:30 PM BOTTOM FILLER PHOSPHORUS Routine 02/07/2024 9:30 PM BOTTOM FILLER MAGNESIUM Routine 02/07/2024 9:30 PM BOTTOM FILLER BASIC METABOLIC PANEL Routine 02/07/2024 9:30 PM BOTTOM FILLER CBC WITH AUTO DIFFERENTIAL Routine 02/07/2024 9:30 PM BOTTOM FILLER POCT GLUCOSE DEVICE Routine 02/07/2024 8 :20 PM BOTTOM FILLER POCT GLUCOSE DEVICE Routine 02/07/2024 4 :41 PM BOTTOM FILLER POCT GLUCOSE DEVICE Routine 02/07/2024 12:22 PM BOTTOM FILLER MYCOLOGY (FUNGAL) CULTURE Routine 02/07/2024 11:30 AM BOTTOM FILLER TISSUE AEROBIC AND ANAEROBIC CULTURE AND GRAM STAIN Routine 02/07/2024 11:30 AM BOTTOM FILLER MYCOBACTERIOLOGY AFB CULTURE AND ACID-FAST STAIN Routine 02/07/2024 11:30 AM BOTTOM FILLER MYCOLOGY (FUNGAL) CULTURE AND STAIN Routine 02/07/2024 11:30 AM BOTTOM FILLER MYCOBACTERIOLOGY AFB CULTURE AND ACID-FAST STAIN Routine 02/07/2024 11:30 AM BOTTOM FILLER AEROBIC AND ANAEROBIC CULTURE AND GRAM STAIN Routine 02/07/2024 11:30 AM BOTTOM FILLER BIOPSY DEEP BONE IP Routine 02/07/2024 11:29 AM BOTTOM FILLER SURGICAL PATHOLOGY Routine 02/07/2024 11:15 AM BOTTOM FILLER POCT GLUCOSE DEVICE Routine 02/07/2024 8 :36 AM BOTTOM FILLER POCT GLUCOSE DEVICE Routine 02/07/2024 7 :46 AM BOTTOM FILLER VANCOMYCIN LEVEL TROUGH Timed 02/07/20 2:37 AM BOTTOM FILLER EGFR Routine 02/06/2024 9:36 PM BOTTOM FILLER DIFFERENTIAL AUTO Routine 02/06/2024 9:3 6 PM BOTTOM FILLER HEPATIC FUNCTION PANEL Routine 9:36 PM BOTTOM FILLER PHOSPHORUS Routine 02/06/2024 9:36 PM BOTTOM FILLER MAGNESIUM Routine 02/06/2024 9:36 PM BOTTOM FILLER BASIC METABOLIC PANEL Routine 02/06/2024 9:36 PM BOTTOM FILLER CBC WITH AUTO DIFFERENTIAL Routine 02/06/2024 9:36 PM BOTTOM FILLER POCT GLUCOSE DEVICE Routine 02/06/2024 9 :32 PM BOTTOM FILLER POCT GLUCOSE DEVICE Routine 02/06/2024 5 :33 PM BOTTOM FILLER POCT GLUCOSE DEVICE Routine 02/06/2024 11:52 AM BOTTOM FILLER POCT GLUCOSE DEVICE Routine 02/06/2024 8 :16 AM BOTTOM FILLER TROPONIN I HIGH-SENSITIVITY SERIES (BASELINE, 2HR, 4HR, 6HR) Timed 02/06/2024 6:53 AM BOTTOM FILLER EGFR Routine 02/05/2024 10:32 PM BOTTOM FILLER DIFFERENTIAL AUTO Routine 02/05/2024 10:32 PM BOTTOM FILLER HEPATIC FUNCTION PANEL Routine 10:32 PM BOTTOM FILLER PHOSPHORUS Routine 02/05/2024 10:32 PM BOTTOM FILLER MAGNESIUM Routine 02/05/2024 10:32 PM BOTTOM FILLER BASIC METABOLIC PANEL Routine 02/05/2024 10:32 PM BOTTOM FILLER CBC WITH AUTO DIFFERENTIAL Routine 02/05/2024 10:32 PM BOTTOM FILLER POCT GLUCOSE DEVICE Routine 02/05/2024 9 :13 PM BOTTOM FILLER POCT GLUCOSE DEVICE Routine 02/05/2024 5 :38 PM BOTTOM FILLER BLOOD CULTURE Routine 02/05/2024 3:25 PM BOTTOM FILLER BLOOD CULTURE Routine 02/05/2024 3:25 PM BOTTOM FILLER POCT GLUCOSE DEVICE Routine 02/05/2024 2 :10 PM BOTTOM FILLER POCT GLUCOSE DEVICE Routine 02/05/2024 9 :18 AM BOTTOM FILLER WOUND CARE Routine 02/05/2024 8:16 AM BOTTOM FILLER Pressure injury of sacral region, stage 4 (HCC) POTASSIUM, WHOLE BLOOD Timed 8:08 AM BOTTOM FILLER POTASSIUM LEVEL Timed 02/05/2024 7:45 AM BOTTOM FILLER POCT GLUCOSE DEVICE Routine 02/05/2024 6 :00 AM BOTTOM FILLER POCT GLUCOSE DEVICE Routine 02/05/2024 5 :04 AM BOTTOM FILLER POCT GLUCOSE DEVICE Routine 02/05/2024 4 :11 AM BOTTOM FILLER ECG 12-LEAD STAT 02/05/2024 3:22 AM BOTTOM FILLER EGFR Routine 02/04/2024 9:38 PM BOTTOM FILLER DIFFERENTIAL AUTO Routine 02/04/2024 9:3 8 PM BOTTOM FILLER HEPATIC FUNCTION PANEL Routine 9:38 PM BOTTOM FILLER PHOSPHORUS Routine 02/04/2024 9:38 PM BOTTOM FILLER MAGNESIUM Routine 02/04/2024 9:38 PM BOTTOM FILLER BASIC METABOLIC PANEL Routine 02/04/2024 9:38 PM BOTTOM FILLER CBC WITH AUTO DIFFERENTIAL Routine 02/04/2024 9:38 PM BOTTOM FILLER POCT GLUCOSE DEVICE Routine 02/04/2024 9 :04 PM BOTTOM FILLER POCT GLUCOSE DEVICE Routine 02/04/2024 5 :12 PM BOTTOM FILLER POCT GLUCOSE DEVICE Routine 02/04/2024 11:56 AM BOTTOM FILLER HEMOGLOBIN AND HEMATOCRIT Timed 02/04/2024 11:16 AM BOTTOM FILLER MRI SACRUM COCCYX WO CONTRAST ED Urgent/IP Urgent 02/04/2024 10:53 AM BOTTOM FILLER POCT GLUCOSE DEVICE Routine 02/04/2024 7 :44 AM BOTTOM FILLER TRANSFUSE RED BLOOD CELLS Timed 02/04/2024 5:50 AM BOTTOM FILLER TYPE AND SCREEN Timed 02/04/2024 1:27 AM BOTTOM FILLER PREPARE RBC Timed 02/04/2024 12:43 AM BOTTOM FILLER EGFR Routine 02/03/2024 9:45 PM BOTTOM FILLER DIFFERENTIAL AUTO Routine 02/03/2024 9:4 5 PM BOTTOM FILLER HEPATIC FUNCTION PANEL Routine 9:45 PM BOTTOM FILLER PHOSPHORUS Routine 02/03/2024 9:45 PM BOTTOM FILLER MAGNESIUM Routine 02/03/2024 9:45 PM BOTTOM FILLER BASIC METABOLIC PANEL Routine 02/03/2024 9:45 PM BOTTOM FILLER CBC WITH AUTO DIFFERENTIAL Routine 02/03/2024 9:45 PM BOTTOM FILLER POCT GLUCOSE DEVICE Routine 02/03/2024 9 :39 PM BOTTOM FILLER POCT GLUCOSE DEVICE Routine 02/03/2024 5 :47 PM BOTTOM FILLER POCT GLUCOSE DEVICE Routine 02/03/2024 2 :[address] ABDOMEN PELVIS W CONTRAST IP Routine 02/03/2024 10:03 AM BOTTOM FILLER POCT GLUCOSE DEVICE Routine 02/03/2024 9 :24 AM BOTTOM FILLER EGFR Routine 02/02/2024 10:40 PM BOTTOM FILLER DIFFERENTIAL AUTO Routine 02/02/2024 10:40 PM BOTTOM FILLER HEPATIC FUNCTION PANEL Routine 10:40 PM BOTTOM FILLER PHOSPHORUS Routine 02/02/2024 10:40 PM BOTTOM FILLER MAGNESIUM Routine 02/02/2024 10:40 PM BOTTOM FILLER BASIC METABOLIC PANEL Routine 02/02/2024 10:40 PM BOTTOM FILLER CBC WITH AUTO DIFFERENTIAL Routine 02/02/2024 10:40 PM BOTTOM FILLER POCT GLUCOSE DEVICE Routine 02/02/2024 8 :25 PM BOTTOM FILLER HEMOGLOBIN AND HEMATOCRIT Timed 02/02/2024 5:56 PM BOTTOM FILLER POCT GLUCOSE DEVICE Routine 02/02/2024 4 :53 PM BOTTOM F[employer]ER POCT GLUCOSE DEVICE Routine 02/02/2024 12:56 PM BOTTOM [employer]ER TRANSFUSE RED BLOOD CELLS Timed 02/02/2024 11:07 AM BOTTOM F[employer]ER POCT GLUCOSE DEVICE Routine 02/02/2024 9 :48 AM BOTTOM [employer]ER HEPATITIS PANEL, ACUTE Routine 9:00 PM [employer] LIPID PANEL Routine 01/26/2024 11:33 PM B[employer]ER HEMOGLOBIN A1C Routine 12/01/2023 6:48 PM CDT from Last 3 Months or Most Recently Relevant to Health Maintenance Results * POCT glucose (02/13/2024 11:47 AM BOTTOM FILLER) Glucose, POC 122 70 - 199 mg/dL Blood 02/13/2024 11:4 7 AM BOTTOM FILLER 02/13/2024 11:47 AM BOTTOM FILLER us Kassidy Pinzon MD LAB POCT ORDERABLES - DEVIC E Final Result Performing Organization Address [facility] Co de Phone Number [facility] [address] [place] [address] * POCT glucose (02/13/2024 7:56 AM BOTTOM FILLER) Glucose, POC 95 70 - 199 mg/dL Blood 02/13/2024 7:56 AM BOTTOM FILLER 02/13/2024 7:56 AM BOTTOM FILLER us Kassidy Pinzon MD LAB POCT ORDERABLES - DEVIC E Final Result Performing Organization Address City/State/[facility] Co de Phone Number [facility] [place] [address] * eGFR (02/12/2024 11:57 PM BOTTOM FILLER) eGFR 79 >=60 mL/min/1. 73 m2 Comment: [...] reviewed 2021. Blood 02/12/2024 11:5 7 PM BOTTOM FILLER 02/13/2024 12:29 AM BOTTOM FILLER Carin Granados MD LAB BLOOD ORDERABLES Tete palomino Result [facility] Department [place] [address] * Differential, auto (02/12/2024 11:57 PM BOTTOM FILLER) Pathologist [facility] Neutrophil abs 4.2 1.5 - 6.5 K/cumm Imm gran abs 0.0 0.0 - 0.1 K/cumm [facility] Lymphocyte abs 1.2 0.8 - 3.3 K/cumm [facility] Monocyte abs 0.6 0.2 - 0.8 K/cumm [facility] Eosinophil abs 0.2 0.0 - 0.5 K/cumm [facility] Basophil abs 0.0 0.0 - 0.1 K/cumm [facility] Neutrophil pct 67.3 % [facility] Comment: Interpretive Data Percent cell count reference ranges are not reported, since discordance with absolute values may lead to misinterpretation of CBC data. Current Interpretive Data was last revised on 2017. Imm gran pct 0.3 % [facility] Comment: Interpretive Data Percent cell count reference ranges are not reported, since discordance with absolute values may lead to misinterpretation of CBC data. Current Interpretive Data was last revised on 2017. Lymphocyte pct 19.2 % [facility] Comment: Interpretive Data Percent cell count reference ranges are not reported, since discordance with absolute values may lead to misinterpretation of CBC data. Current Interpretive Data was last revised on 2017. Monocyte pct 9.4 % [facility] Comment: Interpretive Data Percent cell count reference ranges are not reported, since discordance with absolute values may lead to misinterpretation of CBC data. Current Interpretive Data was last revised on 2017. Eosinophil pct 3.5 % [facility] Comment: Interpretive Data Percent cell count reference ranges are not reported, since discordance with absolute values may lead to misinterpretation of CBC data. Current Interpretive Data was last revised on 2017. Basophil pct 0.3 % [facility] Comment: Interpretive Data Percent cell count reference ranges are not reported, since discordance with absolute values may lead to misinterpretation of CBC data. Current Interpretive Data was last revised on 2017. Blood 02/12/2024 11:5 7 PM BOTTOM FILLER 02/13/2024 12:29 AM BOTTOM FILLER us Carin Granados MD LAB BLOOD ORDERABLES Tete palomino Result [facility] Department [place] [address] * (ABNORMAL) CBC with auto differential (02/12/2024 11:57 PM BOTTOM FILLER) WBC 6.3 3.8 - 9.9 K/cumm Hgb 7.2(L) 11.9 - 15.5 g/dL [facility] Hct 23.1(L) 35.6 - 45.5 % [facility] Plt 208 150 - 400 K/cumm [facility] MPV 9.7 9.1 - 12.3 fL [facility] RBC 2.77(L) 3.90 - 5.20 M/cumm [facility] MCV 83.4 81.3 - 96.4 fL [facility] MCH 26.0(L) 27.1 - 33.3 pg [facility] MCHC 31.2(L) 32.3 - 35.7 g/dL [facility] RDW CV 14.4 11.1 - 14.9 % [facility] RDW SD 43.3 35.7 - 48.1 fL [facility] NRBC abs 0.00 0.00 - 0.01 K/cumm [facility] Blood 02/12/2024 11:5 7 PM BOTTOM FILLER 02/13/2024 12:29 AM BOTTOM FILLER Carin Granados MD LAB BLOOD ORDERABLES Tete l Result Performing Organization Address [facility] de Phone Number [facility] Department [place] [address] * Phosphorus (02/12/2024 11:57 PM BOTTOM FILLER) Phosphorus, pl 2.8 2.3 - 4.5 mg/dL Blood 02/12/2024 11:5 7 PM BOTTOM FILLER 02/13/2024 12:29 AM BOTTOM FILLER Carin Granados MD LAB BLOOD ORDERABLES Tete l Result Performing Organization Address City/[facility] de Phone Number [facility] Department [place] [address] * Magnesium (02/12/2024 11:57 PM BOTTOM FILLER) Magnesium 2.2 1.4 - 2.5 mg/dL Blood 02/12/2024 11:5 7 PM BOTTOM FILLER 02/13/2024 12:29 AM BOTTOM FILLER Carin Granados MD LAB BLOOD ORDERABLES Tete l Result Performing Organization Address City/[facility]/ZIP Co de Phone Number [facility] Department [place] [address] * (ABNORMAL) Hepatic function panel (02/12/2024 11:57 PM BOTTOM FILLER) [facility] Bilirubin, total 0.5 0.1 - 1.2 mg/dL Bilirubin, direct 0.2 0.1 - 0.3 mg/dL [facility] Protein, pl 7.2 6.5 - 8.5 g/dL [facility] Albumin 3.2(L) 3.5 - 5.0 g/dL [facility] Alk phos 330(H) 40 - 130 Units/L [facility] ALT 29 7 - 45 Units/L [facility] AST 68(H) 10 - 45 Units/L [facility] Blood 02/12/2024 11:5 7 PM BOTTOM FILLER 02/13/2024 12:29 AM BOTTOM FILLER Carin Granados MD LAB BLOOD ORDERABLES Tete l Result [facility] Department [place] [address] * Basic metabolic panel (02/12/2024 11:57 PM BOTTOM FILLER) [facility] Sodium 140 135 - 145 mmol/L Potassium, pl 3.9 3.3 - 4.9 mmol/L [facility] Chloride 100 97 - 110 mmol/L [facility] CO2 30 22 - 32 mmol/L [facility] Anion gap 10 2 - 15 mmol/L [facility] BUN 24 6 - 25 mg/dL [facility] Creatinine 0.95 0.60 - 1.10 mg/dL [facility] Glucose 165 70 - 199 mg/dL [facility] Comment: Interpretive Data Fasting glucose >/= 126 [...] 2022. Calcium 8.9 8.5 - 10.3 mg/dL [facility] Blood 02/12/2024 11:5 7 PM BOTTOM FILLER 02/13/2024 12:29 AM BOTTOM FILLER us Carin Granados MD LAB BLOOD ORDERABLES Tete l Result Performing Organization Address City/[facility] Co de Phone Number [facility] [place] [address] * POCT glucose (02/12/2024 8:27 PM BOTTOM FILLER) Glucose, POC 167 70 - 199 mg/dL Blood 02/12/2024 8:27 PM BOTTOM FILLER 02/12/2024 8:27 PM BOTTOM FILLER us Kassidy Pinzon MD LAB POCT ORDERABLES - DEVIC E Final Result Performing Organization Address City/[facility] Co de Phone Number [facility] [address] [place] [address] * POCT glucose (02/12/2024 5:13 PM BOTTOM FILLER) Glucose, POC 167 70 - 199 mg/dL Blood 02/12/2024 5:13 PM BOTTOM FILLER 02/12/2024 5:13 PM BOTTOM FILLER us Kassidy Pinzon MD LAB POCT ORDERABLES - DEVIC E Final Result Performing Organization Address City/[facility] Co de Phone Number [facility] [place] [address] * POCT glucose (02/12/2024 12:27 PM BOTTOM FILLER) Glucose, POC 139 70 - 199 mg/dL Blood 02/12/2024 12:2 7 PM BOTTOM FILLER 02/12/2024 12:27 PM BOTTOM FILLER Kassidy Pinzon MD LAB POCT ORDERABLES - DEVIC E Final Result Performing Organization Address [facility] Co de Phone Number [facility] [place] [address] * POCT glucose (02/12/2024 9:21 AM BOTTOM FILLER) Glucose, POC 95 70 - 199 mg/dL Blood 02/12/2024 9:21 AM BOTTOM FILLER 02/12/2024 9:21 AM BOTTOM FILLER Kassidy Pinzon MD LAB POCT ORDERABLES - DEVIC E Final Result Performing Organization Address [facility] Co de Phone Number [facility] [place] [address] * POCT glucose (02/12/2024 8:02 AM BOTTOM FILLER) [facility] Glucose, POC 91 70 - 199 mg/dL Blood 02/12/2024 8:02 AM BOTTOM FILLER 02/12/2024 8:02 AM BOTTOM FILLER Kassidy Pinzon MD LAB POCT ORDERABLES - DEVIC E Final Result Performing Organization Address City/[facility] de Phone Number [facility] [place] [address] * eGFR (02/11/2024 11:54 PM BOTTOM FILLER) [facility] eGFR 65 >=60 mL/min/1. 73 m2 Comment: [...] reviewed 2021. Blood 02/11/2024 11:5 4 PM BOTTOM FILLER 02/12/2024 12:43 AM BOTTOM FILLER us Carin Granados MD LAB BLOOD ORDERABLES Tete palomino Result [facility] Department [place] [address] * Differential, auto (02/11/2024 11:54 PM BOTTOM FILLER) Pathologist [facility] Neutrophil abs 4.3 1.5 - 6.5 K/cumm Imm gran abs 0.0 0.0 - 0.1 K/cumm [facility] Lymphocyte abs 1.3 0.8 - 3.3 K/cumm [facility] Monocyte abs 0.7 0.2 - 0.8 K/cumm [facility] Eosinophil abs 0.2 0.0 - 0.5 K/cumm [facility] Basophil abs 0.0 0.0 - 0.1 K/cumm [facility] Neutrophil pct 66.6 % [facility] Comment: Interpretive Data Percent cell count reference ranges are not reported, since discordance with absolute values may lead to misinterpretation of CBC data. Current Interpretive Data was last revised on 2017. Imm gran pct 0.3 % [facility] Comment: Interpretive Data Percent cell count reference ranges are not reported, since discordance with absolute values may lead to misinterpretation of CBC data. Current Interpretive Data was last revised on 2017. Lymphocyte pct 19.4 % [facility] Comment: Interpretive Data Percent cell count reference ranges are not reported, since discordance with absolute values may lead to misinterpretation of CBC data. Current Interpretive Data was last revised on 2017. Monocyte pct 10.1 % [facility] Comment: Interpretive Data Percent cell count reference ranges are not reported, since discordance with absolute values may lead to misinterpretation of CBC data. Current Interpretive Data was last revised on 2017. Eosinophil pct 3.1 % [facility] Comment: Interpretive Data Percent cell count reference ranges are not reported, since discordance with absolute values may lead to misinterpretation of CBC data. Current Interpretive Data was last revised on 2017. Basophil pct 0.5 % [facility] Comment: Interpretive Data Percent cell count reference ranges are not reported, since discordance with absolute values may lead to misinterpretation of CBC data. Current Interpretive Data was last revised on 2017. Blood 02/11/2024 11:5 4 PM BOTTOM FILLER 02/12/2024 12:42 AM BOTTOM FILLER us Carin Granados MD LAB BLOOD ORDERABLES Tete palomino Result [facility] [place] [address] * (ABNORMAL) CBC with auto differential (02/11/2024 11:54 PM BOTTOM FILLER) WBC 6.4 3.8 - 9.9 K/cumm Hgb 7.4(L) 11.9 - 15.5 g/dL [facility] Hct 24.0(L) 35.6 - 45.5 % [facility] Plt 230 150 - 400 K/cumm [facility] MPV 9.8 9.1 - 12.3 fL [facility] RBC 2.88(L) 3.90 - 5.20 M/cumm [facility] MCV 83.3 81.3 - 96.4 fL [facility] MCH 25.7(L) 27.1 - 33.3 pg [facility] MCHC 30.8(L) 32.3 - 35.7 g/dL [facility] RDW CV 14.3 11.1 - 14.9 % [facility] RDW SD 42.9 35.7 - 48.1 fL [facility] NRBC abs 0.00 0.00 - 0.01 K/cumm [facility] Blood 02/11/2024 11:5 4 PM BOTTOM FILLER 02/12/2024 12:42 AM BOTTOM FILLER Carin Granados MD LAB BLOOD ORDERABLES Tete l Result [facility] [place] [address] * Phosphorus (02/11/2024 11:54 PM BOTTOM FILLER) Phosphorus, pl 2.9 2.3 - 4.5 mg/dL Blood 02/11/2024 11:5 4 PM BOTTOM FILLER 02/12/2024 12:43 AM BOTTOM FILLER Carin Granados MD LAB BLOOD ORDERABLES Tete l Result Performing Organization Address City/[facility] Co de Phone Number [facility] [place] [address] * Magnesium (02/11/2024 11:54 PM BOTTOM FILLER) Magnesium 2.5 1.4 - 2.5 mg/dL Blood 02/11/2024 11:5 4 PM BOTTOM FILLER 02/12/2024 12:43 AM BOTTOM FILLER Carin Granados MD LAB BLOOD ORDERABLES Tete l Result [facility] [place] [address] * (ABNORMAL) Hepatic function panel (02/11/2024 11:54 PM BOTTOM FILLER) [facility] Bilirubin, total 0.6 0.1 - 1.2 mg/dL Bilirubin, direct 0.2 0.1 - 0.3 mg/dL [facility] Protein, pl 7.3 6.5 - 8.5 g/dL [facility] Albumin 3.1(L) 3.5 - 5.0 g/dL [facility] Alk phos 317(H) 40 - 130 Units/L [facility] ALT 27 7 - 45 Units/L [facility] AST 69(H) 10 - 45 Units/L [facility] Blood 02/11/2024 11:5 4 PM BOTTOM FILLER 02/12/2024 12:43 AM BOTTOM FILLER us Carin Granados MD LAB BLOOD ORDERABLES Tete l Result [facility] Department [place] [address] * (ABNORMAL) Basic metabolic panel (02/11/2024 11:54 PM BOTTOM FILLER) [facility] Sodium 138 135 - 145 mmol/L Potassium, pl 4.5 3.3 - 4.9 mmol/L [facility] Chloride 99 97 - 110 mmol/L [facility] CO2 31 22 - 32 mmol/L [facility] Anion gap 8 2 - 15 mmol/L [facility] BUN 26(H) 6 - 25 mg/dL [facility] Creatinine 1.11(H) 0.60 - 1.10 mg/dL [facility] Glucose 96 70 - 199 mg/dL [facility] Comment: Interpretive Data Fasting glucose >/= 126 [...] 2022. Calcium 9.0 8.5 - 10.3 mg/dL [facility] Blood 02/11/2024 11:5 4 PM BOTTOM FILLER 02/12/2024 12:43 AM BOTTOM FILLER Carin Granados MD LAB BLOOD ORDERABLES Tete l Result Performing Organization Address City/[facility]/ZIP Co de Phone Number [facility] [place] [address] * POCT glucose (02/11/2024 8:20 PM BOTTOM FILLER) Glucose, POC 114 70 - 199 mg/dL Blood 02/11/2024 8:20 PM BOTTOM FILLER 02/11/2024 8:20 PM BOTTOM FILLER Kassidy Pinzon MD LAB POCT ORDERABLES - DEVIC E Final Result Performing Organization Address City/[facility] Co de Phone Number [facility] [place] [address] * POCT glucose (02/11/2024 4:42 PM BOTTOM FILLER) Glucose, POC 106 70 - 199 mg/dL Blood 02/11/2024 4:42 PM BOTTOM FILLER 02/11/2024 4:42 PM BOTTOM FILLER Kassidy Pinzon MD LAB POCT ORDERABLES - DEVIC E Final Result Performing Organization Address City/[facility] Co de Phone Number [facility] [place] [address] * POCT glucose (02/11/2024 7:33 AM BOTTOM FILLER) Glucose, POC 99 70 - 199 mg/dL Blood 02/11/2024 7:33 AM BOTTOM FILLER 02/11/2024 7:33 AM BOTTOM FILLER us Kassidy Pinzon MD LAB POCT ORDERABLES - DEVIC E Final Result Performing Organization Address [facility] Co de Phone Number [facility] [place] [address] * B RYDER IGG (02/11/2024 12:30 AM BOTTOM FILLER) Direct Ruiz IgG Negative Blood 02/11/2024 12:3 0 AM BOTTOM FILLER 02/11/2024 12:30 AM BOTTOM FILLER us Kassidy Pinzon MD LAB BODY FLUIDS AND STOOLS ORDERABLES Final Result Performing Organization Address [facility] de Phone Number [facility] [place] [address] * (ABNORMAL) B RYDER C3 (02/11/2024 12:30 AM BOTTOM FILLER) Direct Ruiz C3 Positive(A ) Blood 02/11/2024 12:3 0 AM BOTTOM FILLER 02/11/2024 12:30 AM BOTTOM FILLER us Kassidy Pinzon MD LAB BLOOD ORDERABLES Final Result Performing Organization Address [facility] Co de Phone Number [facility] Department [place] [address] * Antibody identification (02/10/2024 10:02 PM BOTTOM FILLER) Antibody ID 1 Anti-K Comment:Previous anti-E not reacting Blood 02/10/2024 10:0 2 PM BOTTOM FILLER 02/10/2024 10:02 PM BOTTOM FILLER Kassidy Pinzon MD LAB BLOOD BANK TEST ORDERAB LES Final Result Performing Organization Address [facility] Co de Phone Number [facility] Department [place] [address] * eGFR (02/10/2024 8:51 PM BOTTOM FILLER) Pathologist [facility] eGFR 70 >=60 mL/min/1. 73 m2 Comment: [...] last reviewed 2021. Blood 02/10/2024 8:51 PM BOTTOM FILLER 02/10/2024 9:12 PM BOTTOM FILLER us Carin Granados MD LAB BLOOD ORDERABLES Tete palomino Result [facility] Department [place] [address] * Differential, auto (02/10/2024 8:51 PM BOTTOM FILLER) Pathologist [facility] Neutrophil abs 4.2 1.5 - 6.5 K/cumm Imm gran abs 0.0 0.0 - 0.1 K/cumm [facility] Lymphocyte abs 1.4 0.8 - 3.3 K/cumm [facility] Monocyte abs 0.6 0.2 - 0.8 K/cumm [facility] Eosinophil abs 0.2 0.0 - 0.5 K/cumm [facility] Basophil abs 0.0 0.0 - 0.1 K/cumm [facility] Neutrophil pct 64.3 % [facility] Comment: Interpretive Data Percent cell count reference ranges are not reported, since discordance with absolute values may lead to misinterpretation of CBC data. Current Interpretive Data was last revised on 2017. Imm gran pct 0.3 % [facility] Comment: Interpretive Data Percent cell count reference ranges are not reported, since discordance with absolute values may lead to misinterpretation of CBC data. Current Interpretive Data was last revised on 2017. Lymphocyte pct 22.0 % [facility] Comment: Interpretive Data Percent cell count reference ranges are not reported, since discordance with absolute values may lead to misinterpretation of CBC data. Current Interpretive Data was last revised on 2017. Monocyte pct 9.4 % [facility] Comment: Interpretive Data Percent cell count reference ranges are not reported, since discordance with absolute values may lead to misinterpretation of CBC data. Current Interpretive Data was last revised on 2017. Eosinophil pct 3.7 % [facility] Comment: Interpretive Data Percent cell count reference ranges are not reported, since discordance with absolute values may lead to misinterpretation of CBC data. Current Interpretive Data was last revised on 2017. Basophil pct 0.3 % [facility] Comment: Interpretive Data Percent cell count reference ranges are not reported, since discordance with absolute values may lead to misinterpretation of CBC data. Current Interpretive Data was last revised on 2017. Blood 02/10/2024 8:51 PM BOTTOM FILLER 02/10/2024 9:12 PM BOTTOM FILLER us Carin Granados MD LAB BLOOD ORDERABLES Tete l Result [facility] [place] [address] * (ABNORMAL) CBC with auto differential (02/10/2024 8:51 PM BOTTOM FILLER) WBC 6.5 3.8 - 9.9 K/cumm Hgb 7.5(L) 11.9 - 15.5 g/dL [facility] Hct 24.3(L) 35.6 - 45.5 % [facility] Plt 245 150 - 400 K/cumm [facility] MPV 9.5 9.1 - 12.3 fL [facility] RBC 2.92(L) 3.90 - 5.20 M/cumm [facility] MCV 83.2 81.3 - 96.4 fL [facility] MCH 25.7(L) 27.1 - 33.3 pg [facility] MCHC 30.9(L) 32.3 - 35.7 g/dL [facility] RDW CV 14.1 11.1 - 14.9 % [facility] RDW SD 42.3 35.7 - 48.1 fL [facility] NRBC abs 0.00 0.00 - 0.01 K/cumm [facility] Blood 02/10/2024 8:51 PM BOTTOM FILLER 02/10/2024 9:12 PM BOTTOM FILLER us Carin Granados MD LAB BLOOD ORDERABLES Tete l Result [facility] [address] [place] [address] * Transfusion reaction evaluation with specimen collection (02/10/2024 8:51 PM BOTTOM FILLER) Recommended Product Transfuse K negative red blood cells. Recommened Pre Medication None [facility] Final Analysis of Transfusion Reaction Delayed Hemolytic Transfusion Reaction [facility] Blood 02/10/2024 8:51 PM BOTTOM FILLER 02/10/2024 9:12 PM BOTTOM FILLER us Kassidy Pinzon MD LAB BLOOD BANK TEST ORDERAB LES Final Result Performing Organization Address City/[facility]/ZIP Co de Phone Number [facility] [address] [place] [address] * (ABNORMAL) Type and screen (02/10/2024 8:51 PM BOTTOM FILLER) ABO Rh O Positive Ruiz, indirect Positive(A) [facility] Blood 02/10/2024 8:51 PM BOTTOM FILLER 02/10/2024 9:12 PM BOTTOM FILLER Narrative [facility] - 02/10/2024 10:02 PM BOTTOM FILLER Has the patient had Daratumumab or Isatuximab in the past 6 months?->Unknown us Kassidy Pinzon MD LAB BLOOD BANK TEST ORDERAB LES Final Result Performing Organization Address City/[facility] Co de Phone Number [facility] [place] [address] * (ABNORMAL) Direct antiglobulin test (02/10/2024 8:51 PM BOTTOM FILLER) Pathologist [facility] Direct Ruiz BS Interpretation Positive( A) Comment:Eluate not performed RYDER positive with anti-C3 only. Blood 02/10/2024 8:51 PM BOTTOM FILLER 02/10/2024 9:12 PM BOTTOM FILLER us Kassidy Piznon MD LAB BLOOD BANK TEST ORDERAB LES Final Result Performing Organization Address [facility] Co de Phone Number [facility] [place] [address] * Phosphorus (02/10/2024 8:51 PM BOTTOM FILLER) Phosphorus, pl 3.1 2.3 - 4.5 mg/dL Blood 02/10/2024 8:51 PM BOTTOM FILLER 02/10/2024 9:12 PM BOTTOM FILLER us Carin Granados MD LAB BLOOD ORDERABLES Tete l Result Performing Organization Address [facility] Co de Phone Number [facility] [place], [place] [id number] * Magnesium (02/10/2024 8:51 PM BOTTOM FILLER) Magnesium 2.3 1.4 - 2.5 mg/dL Blood 02/10/2024 8:51 PM BOTTOM FILLER 02/10/2024 9:12 PM BOTTOM FILLER Carin Granados MD LAB BLOOD ORDERABLES Tete l Result Performing Organization Address [facility] de Phone Number [facility] [place] [address] * (ABNORMAL) Hepatic function panel (02/10/2024 8:51 PM BOTTOM FILLER) Pathologist [facility] Bilirubin, total 0.8 0.1 - 1.2 mg/dL Bilirubin, direct 0.3 0.1 - 0.3 mg/dL [facility] Protein, pl 7.2 6.5 - 8.5 g/dL [facility] Albumin 3.1(L) 3.5 - 5.0 g/dL [facility] Alk phos 317(H) 40 - 130 Units/L [facility] ALT 26 7 - 45 Units/L [facility] AST 60(H) 10 - 45 Units/L [facility] Blood 02/10/2024 8:51 PM BOTTOM FILLER 02/10/2024 9:12 PM BOTTOM FILLER Carin Granados MD LAB BLOOD ORDERABLES Tete l Result Performing Organization Address [facility] de Phone Number [facility] [place] [address] * Basic metabolic panel (02/10/2024 8:51 PM BOTTOM FILLER) Sodium 137 135 - 145 mmol/L Potassium, pl 4.5 3.3 - 4.9 mmol/L [facility] Chloride 100 97 - 110 mmol/L [facility] CO2 31 22 - 32 mmol/L [facility] Anion gap 6 2 - 15 mmol/L [facility] BUN 25 6 - 25 mg/dL [facility] Creatinine 1.05 0.60 - 1.10 mg/dL [facility] Glucose 103 70 - 199 mg/dL [facility] Comment: Interpretive Data Fasting glucose >/= 126 [...] 2022. Calcium 8.9 8.5 - 10.3 mg/dL [facility] Blood 02/10/2024 8:51 PM BOTTOM FILLER 02/10/2024 9:12 PM BOTTOM FILLER Carin Granados MD LAB BLOOD ORDERABLES Tete l Result Performing Organization Address [facility] Co de Phone Number [facility] Department [place] [address] * POCT glucose (02/10/2024 8:28 PM BOTTOM FILLER) Glucose, POC 111 70 - 199 mg/dL Blood 02/10/2024 8:28 PM BOTTOM FILLER 02/10/2024 8:28 PM BOTTOM FILLER Kassidy Pinzon MD LAB POCT ORDERABLES - DEVIC E Final Result Performing Organization Address City/[facility]/ZIP Co de Phone Number [facility] Department [place] [address] * POCT glucose (02/10/2024 5:13 PM BOTTOM FILLER) Glucose, POC 96 70 - 199 mg/dL Blood 02/10/2024 5:13 PM BOTTOM FILLER 02/10/2024 5:13 PM BOTTOM FILLER Kassidy Pinzon MD LAB POCT ORDERABLES - DEVIC E Final Result [facility] Department [place] [address] * IR Central Line Placement > 5 Years (02/10/2024 3:32 PM BOTTOM FILLER) Anatomical Region Laterality Modality Body N/A Radio Fluoroscop y 02/10/2024 3:42 PM BOTTOM FILLER Impressions 02/10/2024 3:42 PM BOTTOM FILLER Successful nontunneled catheter placement (5-Ivorian dual-lumen) in the left internal jugular vein. [...] Abby Mao MD Narrative 02/10/2024 3:42 PM BOTTOM FILLER EXAMINATION: NONTUNNELED CENTRAL VENOUS CATHETER PLACEMENT (STD) HISTORY: History sacral wound with plan for long-term intravenous antibiotics. ATTENDING PRESENCE: Abby Mao MD, PhD, the attending radiologist was present from the beginning to the end of the procedure. SEDATION: Local anesthetic only TECHNIQUE: The risks, benefits and alternatives were discussed and informed consent was obtained. Prior to beginning the procedure, [place] Protocol was used to confirm the patient's [...] was assessed. After dilating the tract, a 5-Ivorian dual lumen aric trimmed to the appropriate [...] was obtained. Prior to beginning the procedure, [place] Protocol was used to confirm the patient's [...] was assessed. After dilating the tract, a 5-Ivorian dual lumen aric trimmed to the appropriate [...] are seen. IMPRESSION: Successful nontunneled catheter placement (5-Ivorian dual-lumen) in the left internal jugular vein. [...] ult * POCT glucose (02/10/2024 12:31 PM BOTTOM FILLER) Glucose, POC 119 70 - 199 mg/dL Blood 02/10/2024 12:3 1 PM BOTTOM FILLER 02/10/2024 12:31 PM BOTTOM FILLER Kassidy Pinzon MD LAB POCT ORDERABLES - DEVIC E Final Result Performing Organization Address [facility] de Phone Number [facility] Department [place] [address] * POCT glucose (02/10/2024 8:15 AM BOTTOM FILLER) Glucose, POC 96 70 - 199 mg/dL Blood 02/10/2024 8:15 AM BOTTOM FILLER 02/10/2024 8:15 AM BOTTOM FILLER Kassidy Pinzon MD LAB POCT ORDERABLES - DEVIC E Final Result Performing Organization Address [facility] de Phone Number [facility] [place] [address] * eGFR (02/09/2024 9:52 PM BOTTOM FILLER) eGFR 71 >=60 mL/min/1. 73 m2 Comment: [...] last reviewed 2021. Blood 02/09/2024 9:52 PM BOTTOM FILLER 02/09/2024 10:45 PM BOTTOM FILLER us Carin Granados MD LAB BLOOD ORDERABLES Tete palomino Result [facility] Department [place] [address] * Differential, auto (02/09/2024 9:52 PM BOTTOM FILLER) Pathologist [facility] Neutrophil abs 3.9 1.5 - 6.5 K/cumm Imm gran abs 0.0 0.0 - 0.1 K/cumm [facility] Lymphocyte abs 1.1 0.8 - 3.3 K/cumm [facility] Monocyte abs 0.7 0.2 - 0.8 K/cumm [facility] Eosinophil abs 0.2 0.0 - 0.5 K/cumm [facility] Basophil abs 0.0 0.0 - 0.1 K/cumm [facility] Neutrophil pct 65.2 % [facility] Comment: Interpretive Data Percent cell count reference ranges are not reported, since discordance with absolute values may lead to misinterpretation of CBC data. Current Interpretive Data was last revised on 2017. Imm gran pct 0.2 % [facility] Comment: Interpretive Data Percent cell count reference ranges are not reported, since discordance with absolute values may lead to misinterpretation of CBC data. Current Interpretive Data was last revised on 2017. Lymphocyte pct 19.0 % [facility] Comment: Interpretive Data Percent cell count reference ranges are not reported, since discordance with absolute values may lead to misinterpretation of CBC data. Current Interpretive Data was last revised on 2017. Monocyte pct 11.8 % [facility] Comment: Interpretive Data Percent cell count reference ranges are not reported, since discordance with absolute values may lead to misinterpretation of CBC data. Current Interpretive Data was last revised on 2017. Eosinophil pct 3.5 % [facility] Comment: Interpretive Data Percent cell count reference ranges are not reported, since discordance with absolute values may lead to misinterpretation of CBC data. Current Interpretive Data was last revised on 2017. Basophil pct 0.3 % [facility] Comment: Interpretive Data Percent cell count reference ranges are not reported, since discordance with absolute values may lead to misinterpretation of CBC data. Current Interpretive Data was last revised on 2017. Blood 02/09/2024 9:52 PM BOTTOM FILLER 02/09/2024 10:46 PM BOTTOM FILLER Carin Granados MD LAB BLOOD ORDERABLES Tete palomino Result [facility] Department [place] [address] * (ABNORMAL) CBC with auto differential (02/09/2024 9:52 PM BOTTOM FILLER) WBC 5.9 3.8 - 9.9 K/cumm Hgb 7.0(L) 11.9 - 15.5 g/dL [facility] Hct 22.8(L) 35.6 - 45.5 % [facility] Plt 230 150 - 400 K/cumm [facility] MPV 9.8 9.1 - 12.3 fL [facility] RBC 2.77(L) 3.90 - 5.20 M/cumm [facility] MCV 82.3 81.3 - 96.4 fL [facility] MCH 25.3(L) 27.1 - 33.3 pg [facility] MCHC 30.7(L) 32.3 - 35.7 g/dL [facility] RDW CV 13.7 11.1 - 14.9 % [facility] RDW SD 41.2 35.7 - 48.1 fL [facility] NRBC abs 0.00 0.00 - 0.01 K/cumm [facility] Blood 02/09/2024 9:52 PM BOTTOM FILLER 02/09/2024 10:46 PM BOTTOM FILLER Carin Granados MD LAB BLOOD ORDERABLES Tete l Result Performing Organization Address City/[facility] Co de Phone Number [facility] [place] [address] * Phosphorus (02/09/2024 9:52 PM BOTTOM FILLER) Pathologist [facility] Phosphorus, pl 3.1 2.3 - 4.5 mg/dL Blood 02/09/2024 9:52 PM BOTTOM FILLER 02/09/2024 10:45 PM BOTTOM FILLER Carin Granados MD LAB BLOOD ORDERABLES Tete l Result Performing Organization Address [facility] de Phone Number [facility] [place] [address] * Magnesium (02/09/2024 9:52 PM BOTTOM FILLER) [facility] Magnesium 2.2 1.4 - 2.5 mg/dL Blood 02/09/2024 9:52 PM BOTTOM FILLER 02/09/2024 10:45 PM BOTTOM FILLER Carin Granados MD LAB BLOOD ORDERABLES Tete l Result Performing Organization Address [facility] de Phone Number [facility] [place] [address] * Vancomycin level random (02/09/2024 9:52 PM BOTTOM FILLER) [facility] Vancomycin random 11.5 mcg/mL Comment: Interpretive Data No reference ranges have been established for random drug levels. Current Interpretive Data was last revised on 2020. Blood 02/09/2024 9:52 PM BOTTOM FILLER 02/09/2024 10:45 PM BOTTOM FILLER us Kassidy Pinzon MD LAB BLOOD ORDERABLES Final Result Performing Organization Address [facility] de Phone Number [facility] [place] [address] * (ABNORMAL) Hepatic function panel (02/09/2024 9:52 PM BOTTOM FILLER) Bilirubin, total 0.9 0.1 - 1.2 mg/dL Bilirubin, direct 0.3 0.1 - 0.3 mg/dL [facility] Protein, pl 6.7 6.5 - 8.5 g/dL [facility] Albumin 2.7(L) 3.5 - 5.0 g/dL [facility] Alk phos 306(H) 40 - 130 Units/L [facility] ALT 27 7 - 45 Units/L [facility] AST 60(H) 10 - 45 Units/L [facility] Blood 02/09/2024 9:52 PM BOTTOM FILLER 02/09/2024 10:45 PM BOTTOM FILLER us Carin Granados MD LAB BLOOD ORDERABLES Tete l Result Performing Organization Address [facility] de Phone Number [facility] Department [place] [address] * Basic metabolic panel (02/09/2024 9:52 PM BOTTOM FILLER) Sodium 138 135 - 145 mmol/L Potassium, pl 4.3 3.3 - 4.9 mmol/L [facility] Chloride 103 97 - 110 mmol/L [facility] CO2 29 22 - 32 mmol/L [facility] Anion gap 6 2 - 15 mmol/L [facility] BUN 21 6 - 25 mg/dL [facility] Creatinine 1.03 0.60 - 1.10 mg/dL [facility] Glucose 124 70 - 199 mg/dL [facility] Comment: Interpretive Data Fasting glucose >/= 126 [...] 2022. Calcium 8.7 8.5 - 10.3 mg/dL [facility] Blood 02/09/2024 9:52 PM BOTTOM FILLER 02/09/2024 10:45 PM BOTTOM FILLER Result [facility] Carin Granados MD LAB BLOOD ORDERABLES Tete l Result Performing Organization Address City/[facility]/ZIP Co de Phone Number [facility] Department [place] [address] * POCT glucose (02/09/2024 8:32 PM BOTTOM FILLER) Glucose, POC 135 70 - 199 mg/dL Blood 02/09/2024 8:32 PM BOTTOM FILLER 02/09/2024 8:32 PM BOTTOM FILLER Result [facility] Kassidy Pinzon MD LAB POCT ORDERABLES - DEVIC E Final Result [facility] Department [place] [address] * POCT glucose (02/09/2024 5:55 PM BOTTOM FILLER) Glucose, POC 142 70 - 199 mg/dL Blood 02/09/2024 5:55 PM BOTTOM FILLER 02/09/2024 5:55 PM BOTTOM FILLER Kassidy Pinzon MD LAB POCT ORDERABLES - DEVIC E Final Result Performing Organization Address [facility]/ZIP Co de Phone Number [facility] [place] [address] * (ABNORMAL) Urinalysis reflex to microscopic and culture Urine (02/09/2024 5:09 PM BOTTOM FILLER) Color, ur Straw Yellow Clarity, ur Cloudy(A) Clear [facility] Specific gravity, ur 1.014 1.003 - 1.030 [facility] pH, urine 8.0 [facility] Comment: Interpretive Data U rine pH is affected by diet, medications, systemic acid-base disturbances, and renal tubular function. pH may affect urinary stone formation. For example, urine pH below 6.0 may help reduce the tendency for calcium phosphate stones and pH greater than 6.0 may reduce the tendency for uric acid stone formation. Source: [facility] Current Interpretive Data was last revised on 2017 Protein, ur ql Trace Negative [facility] Glucose, ur ql Negative Negative [facility] Ketones, ur Negative Negative [facility] Bilirubin, ur Negative Negative [facility] Blood, ur 1+(A) Negative [facility] Urobilinogen, ur 2.0(A) <2.0 mg/dL [facility] Nitrite, ur Negative Negative [facility] Leukocyte esterase, ur 3+(A) Negative [facility] UA reflex comment Reflex to microscopic UA will be performed. [facility] Urine 02/09/2024 5:09 PM BOTTOM FILLER 02/09/2024 5:48 PM BOTTOM FILLER Kassidy Pinzon MD LAB MICROBIOLOGY - GENERAL ORDERABLES Final Result Performing Organization Address [facility]/ZIP Co de Phone Number [facility] Department [place] [address] * (ABNORMAL) Urinalysis, microscopic only (02/09/2024 5:09 PM BOTTOM FILLER) WBC, ur >50(A) 0 - 5 /HPF RBC, ur 6-10(A) 0 - 2 /HPF [facility] Epithelial cells, squamous, ur 1-5 0 - 5 /HPF [facility] Bacteria, ur Trace(A) [facility] Culture Reflex Comment Reflex to urine culture will be performed. [facility] Urine 02/09/2024 5:09 PM BOTTOM FILLER 02/09/2024 5:48 PM BOTTOM FILLER us Kassidy Pinzon MD LAB URINE ORDERABLES Final Result Performing Organization Address [facility] Co de Phone Number [facility] [place] [address] * Urine culture Urine (02/09/2024 5:09 PM BOTTOM FILLER) Report Final Report: No growth Urine 02/09/2024 5:09 PM BOTTOM FILLER 02/09/2024 8:14 PM BOTTOM FILLER Narrative [facility] - 02/10/2024 9:34 PM BOTTOM FILLER Urine culture reflexed based upon urinalysis results. Testing performed by [facility] ([phone]) us Kassidy Pinzon MD LAB MICROBIOLOGY - GENERAL ORDERABLES Final Result Performing Organization Address [facility] de Phone Number [facility] Department [place] [address] * XR Abdomen Ap 1 Vw (02/09/2024 4:09 PM BOTTOM FILLER) Anatomical Region Laterality Modality Body, Abdomen N/A Computed Radiogr aphy 02/09/2024 4:36 PM BOTTOM FILLER Impressions 02/09/2024 4:54 PM BOTTOM FILLER A single view of the abdomen is [...] Raheem Marion M.D. Narrative 02/09/2024 4:54 PM BOTTOM FILLER EXAMINATION: Abdomen, one view. HISTORY: Abdominal pain. [...] ult * POCT glucose (02/09/2024 12:51 PM BOTTOM FILLER) Glucose, POC 121 70 - 199 mg/dL Blood 02/09/2024 12:5 1 PM BOTTOM FILLER 02/09/2024 12:51 PM BOTTOM FILLER Kassidy Pinzon MD LAB POCT ORDERABLES - DEVIC E Final Result Performing Organization Address [facility] de Phone Number [facility] Department [place] [address] * POCT glucose (02/09/2024 7:40 AM BOTTOM FILLER) Glucose, POC 96 70 - 199 mg/dL Blood 02/09/2024 7:40 AM BOTTOM FILLER 02/09/2024 7:40 AM BOTTOM FILLER Kassidy Pinzon MD LAB POCT ORDERABLES - DEVIC E Final Result Performing Organization Address [facility]/ZIP Co de Phone Number [facility] Department [place] [address] * eGFR (02/09/2024 12:07 AM BOTTOM FILLER) eGFR 77 >=60 mL/min/1. 73 m2 Comment: [...] reviewed 2021. Blood 02/09/2024 12:0 7 AM BOTTOM FILLER 02/09/2024 12:57 AM BOTTOM FILLER us Carin Granados MD LAB BLOOD ORDERABLES Tete l Result [facility] Department [place] [address] * Creatinine (02/09/2024 12:07 AM BOTTOM FILLER) Creatinine 0.97 0.60 - 1.10 mg/dL Blood 02/09/2024 12:0 7 AM BOTTOM FILLER 02/09/2024 12:57 AM BOTTOM FILLER Narrative [facility] - 02/09/2024 1:23 AM BOTTOM FILLER While on enoxaparin Carin Granados MD LAB BLOOD ORDERABLES Tete l Result Performing Organization Address City/State/[facility] Co de Phone Number [facility] Department [place] [address] * eGFR (02/08/2024 9:50 PM BOTTOM FILLER) eGFR 76 >=60 mL/min/1. 73 m2 Comment: [...] last reviewed 2021. Blood 02/08/2024 9:50 PM BOTTOM FILLER 02/08/2024 11:07 PM BOTTOM FILLER us Carin Granados MD LAB BLOOD ORDERABLES Tete l Result Performing Organization Address [facility] Co de Phone Number [facility] Department [place] [address] * Differential, auto (02/08/2024 9:50 PM BOTTOM FILLER) Neutrophil abs 4.0 1.5 - 6.5 K/cumm Imm gran abs 0.0 0.0 - 0.1 K/cumm [facility] Lymphocyte abs 1.1 0.8 - 3.3 K/cumm [facility] Monocyte abs 0.5 0.2 - 0.8 K/cumm [facility] Eosinophil abs 0.3 0.0 - 0.5 K/cumm [facility] Basophil abs 0.0 0.0 - 0.1 K/cumm [facility] Neutrophil pct 68.3 % [facility] Comment: Interpretive Data Percent cell count reference ranges are not reported, since discordance with absolute values may lead to misinterpretation of CBC data. Current Interpretive Data was last revised on 2017. Imm gran pct 0.3 % [facility] Comment: Interpretive Data Percent cell count reference ranges are not reported, since discordance with absolute values may lead to misinterpretation of CBC data. Current Interpretive Data was last revised on 2017. Lymphocyte pct 17.9 % [facility] Comment: Interpretive Data Percent cell count reference ranges are not reported, since discordance with absolute values may lead to misinterpretation of CBC data. Current Interpretive Data was last revised on 2017. Monocyte pct 8.8 % [facility] Comment: Interpretive Data Percent cell count reference ranges are not reported, since discordance with absolute values may lead to misinterpretation of CBC data. Current Interpretive Data was last revised on 2017. Eosinophil pct 4.4 % [facility] Comment: Interpretive Data Percent cell count reference ranges are not reported, since discordance with absolute values may lead to misinterpretation of CBC data. Current Interpretive Data was last revised on 2017. Basophil pct 0.3 % [facility] Comment: Interpretive Data Percent cell count reference ranges are not reported, since discordance with absolute values may lead to misinterpretation of CBC data. Current Interpretive Data was last revised on 2017. Blood 02/08/2024 9:50 PM BOTTOM FILLER 02/08/2024 10:57 PM BOTTOM FILLER us Carin Granados MD LAB BLOOD ORDERABLES Tete l Result [facility] Department [place] [address] * (ABNORMAL) CBC with auto differential (02/08/2024 9:50 PM BOTTOM FILLER) WBC 5.9 3.8 - 9.9 K/cumm Hgb 8.6(L) 11.9 - 15.5 g/dL [facility] Hct 27.7(L) 35.6 - 45.5 % [facility] Plt 239 150 - 400 K/cumm [facility] MPV 9.5 9.1 - 12.3 fL [facility] RBC 3.37(L) 3.90 - 5.20 M/cumm [facility] MCV 82.2 81.3 - 96.4 fL [facility] MCH 25.5(L) 27.1 - 33.3 pg [facility] MCHC 31.0(L) 32.3 - 35.7 g/dL [facility] RDW CV 13.6 11.1 - 14.9 % [facility] RDW SD 40.8 35.7 - 48.1 fL [facility] NRBC abs 0.00 0.00 - 0.01 K/cumm [facility] Blood 02/08/2024 9:50 PM BOTTOM FILLER 02/08/2024 10:57 PM BOTTOM FILLER us Carin Granados MD LAB BLOOD ORDERABLES Tete palomino Result [facility] [place] [address] * (ABNORMAL) Protime-INR (02/08/2024 9:50 PM BOTTOM FILLER) PT 16.5(H) 9.7 - 13.0 sec INR 1.51(H) 0.90 - 1.20 [facility] Comment: Interpretive data Oral anticoagulant therapeutic ranges: Venous thromboembolism prophylaxis or treatment: 2.0-3.0 CARDIOLOGY Standard range: 2.0-3.0 High-intensity range: 2.5-3.5 Refer to indication-specific guidelines for appropriate target ranges for prosthetic heart valve replacement. Current interpretive data was last revised on 2019. Blood 02/08/2024 9:50 PM BOTTOM FILLER 02/08/2024 10:56 PM BOTTOM FILLER us Kassidy Pinzon MD LAB BLOOD ORDERABLES Final Result Performing Organization Address [facility] Co de Phone Number [facility] [place] [address] * Phosphorus (02/08/2024 9:50 PM BOTTOM FILLER) Pathologist [facility] Phosphorus, pl 3.6 2.3 - 4.5 mg/dL Blood 02/08/2024 9:5 0 PM BOTTOM FILLER 02/08/2024 10:52 PM BOTTOM FILLER Carin Granados MD LAB BLOOD ORDERABLES Tete l Result Performing Organization Address [facility] de Phone Number [facility] [place] [address] * Magnesium (02/08/2024 9:50 PM BOTTOM FILLER) [facility] Magnesium 2.0 1.4 - 2.5 mg/dL Blood 02/08/2024 9:50 PM BOTTOM FILLER 02/08/2024 10:52 PM BOTTOM FILLER Carin Granados MD LAB BLOOD ORDERABLES Tete l Result Performing Organization Address [facility] de Phone Number [facility] [place] [address] * Vancomycin level random (02/08/2024 9:50 PM BOTTOM FILLER) Pathologist [facility] Vancomycin random 20.0 mcg/mL Comment: Interpretive Data No reference ranges have been established for random drug levels. Current Interpretive Data was last revised on 2020. Blood 02/08/2024 9:50 PM BOTTOM FILLER 02/08/2024 10:52 PM BOTTOM FILLER Kassidy Pinzon MD LAB BLOOD ORDERABLES Final Result Performing Organization Address [facility] Co de Phone Number [facility] Department [place] [address] * (ABNORMAL) Hepatic function panel (02/08/2024 9:50 PM BOTTOM FILLER) [facility] Bilirubin, total 1.2 0.1 - 1.2 mg/dL Bilirubin, direct 0.3 0.1 - 0.3 mg/dL [facility] Protein, pl 7.2 6.5 - 8.5 g/dL [facility] Albumin 3.0(L) 3.5 - 5.0 g/dL [facility] Alk phos 305(H) 40 - 130 Units/L [facility] ALT 27 7 - 45 Units/L [facility] AST 63(H) 10 - 45 Units/L [facility] Blood 02/08/2024 9:50 PM BOTTOM FILLER 02/08/2024 10:52 PM BOTTOM FILLER Carin Granados MD LAB BLOOD ORDERABLES Tete l Result [facility] Department [place] [address] * Basic metabolic panel (02/08/2024 9:50 PM BOTTOM FILLER) [facility] Sodium 139 135 - 145 mmol/L Potassium, pl 4.6 3.3 - 4.9 mmol/L [facility] Chloride 102 97 - 110 mmol/L [facility] CO2 29 22 - 32 mmol/L [facility] Anion gap 8 2 - 15 mmol/L [facility] BUN 23 6 - 25 mg/dL [facility] Creatinine 0.98 0.60 - 1.10 mg/dL [facility] Glucose 89 70 - 199 mg/dL [facility] Comment: Interpretive Data Fasting glucose >/= 126 [...] 2022. Calcium 9.1 8.5 - 10.3 mg/dL [facility] Blood 02/08/2024 9:50 PM BOTTOM FILLER 02/08/2024 10:52 PM BOTTOM FILLER us Carin Granados MD LAB BLOOD ORDERABLES Tete l Result [facility] [place] [address] * POCT glucose (02/08/2024 8:31 PM BOTTOM FILLER) Glucose, POC 98 70 - 199 mg/dL Blood 02/08/2024 8:31 PM BOTTOM FILLER 02/08/2024 8:31 PM BOTTOM FILLER us Kassidy Pinzon MD LAB POCT ORDERABLES - DEVIC E Final Result Performing Organization Address [facility] Co de Phone Number [facility] Department [place] [address] * POCT glucose (02/08/2024 5:56 PM BOTTOM FILLER) Glucose, POC 123 70 - 199 mg/dL Blood 02/08/2024 5:56 PM BOTTOM FILLER 02/08/2024 5:56 PM BOTTOM FILLER Kassidy Pinzon MD LAB POCT ORDERABLES - DEVIC E Final Result Performing Organization Address City/[facility] Co de Phone Number [facility] [place] [address] * (ABNORMAL) Vancomycin level trough Prior to 3rd dose of 750mg Q12 (02/08/2024 1:55 PM BOTTOM FILLER) [facility] Vancomycin trough 24.7(H) 10.0 - 20.0 mcg/mL Comment:Reviewed Blood 02/08/2024 1:55 PM BOTTOM FILLER 02/08/2024 2:35 PM BOTTOM FILLER Narrative [facility] - 02/08/2024 3:10 PM BOTTOM FILLER Prior to 3rd dose of 750mg Q12 Kassidy Pinzon MD LAB BLOOD ORDERABLES Final Result Performing Organization Address City/[facility] Co de Phone Number [facility] [place] [address] * POCT glucose (02/08/2024 11:40 AM BOTTOM FILLER) [facility] Glucose, POC 98 70 - 199 mg/dL Blood 02/08/2024 11:4 0 AM BOTTOM FILLER 02/08/2024 11:40 AM BOTTOM FILLER Kassidy Pinzon MD LAB POCT ORDERABLES - DEVIC E Final Result Performing Organization Address [facility] de Phone Number [facility] [place] [address] * POCT glucose (02/08/2024 8:20 AM BOTTOM FILLER) [facility] Glucose, POC 91 70 - 199 mg/dL Blood 02/08/2024 8:20 AM BOTTOM FILLER 02/08/2024 8:20 AM BOTTOM FILLER Kassidy Pinzon MD LAB POCT ORDERABLES - DEVIC E Final Result Performing Organization Address [facility] de Phone Number [facility] [place] [address] * eGFR (02/07/2024 9:30 PM BOTTOM FILLER) [facility] eGFR 66 >=60 mL/min/1. 73 m2 Comment: [...] last reviewed 2021. Blood 02/07/2024 9:30 PM BOTTOM FILLER 02/07/2024 10:34 PM BOTTOM FILLER Carin Granados MD LAB BLOOD ORDERABLES Tete palomino Result [facility] [place] [address] * Differential, auto (02/07/2024 9:30 PM BOTTOM FILLER) Pathologist [facility] Neutrophil abs 4.1 1.5 - 6.5 K/cumm Imm gran abs 0.0 0.0 - 0.1 K/cumm [facility] Lymphocyte abs 0.8 0.8 - 3.3 K/cumm [facility] Monocyte abs 0.6 0.2 - 0.8 K/cumm [facility] Eosinophil abs 0.3 0.0 - 0.5 K/cumm [facility] Basophil abs 0.0 0.0 - 0.1 K/cumm [facility] Neutrophil pct 71.0 % [facility] Comment: Interpretive Data Percent cell count reference ranges are not reported, since discordance with absolute values may lead to misinterpretation of CBC data. Current Interpretive Data was last revised on 2017. Imm gran pct 0.5 % [facility] Comment: Interpretive Data Percent cell count reference ranges are not reported, since discordance with absolute values may lead to misinterpretation of CBC data. Current Interpretive Data was last revised on 2017. Lymphocyte pct 14.0 % [facility] Comment: Interpretive Data Percent cell count reference ranges are not reported, since discordance with absolute values may lead to misinterpretation of CBC data. Current Interpretive Data was last revised on 2017. Monocyte pct 9.5 % [facility] Comment: Interpretive Data Percent cell count reference ranges are not reported, since discordance with absolute values may lead to misinterpretation of CBC data. Current Interpretive Data was last revised on 2017. Eosinophil pct 4.8 % [facility] Comment: Interpretive Data Percent cell count reference ranges are not reported, since discordance with absolute values may lead to misinterpretation of CBC data. Current Interpretive Data was last revised on 2017. Basophil pct 0.2 % [facility] Comment: Interpretive Data Percent cell count reference ranges are not reported, since discordance with absolute values may lead to misinterpretation of CBC data. Current Interpretive Data was last revised on 2017. Blood 02/07/2024 9:30 PM BOTTOM FILLER 02/07/2024 10:29 PM BOTTOM FILLER us Carin Granados MD LAB BLOOD ORDERABLES Tete palomino Result [facility] [place] [address] * (ABNORMAL) CBC with auto differential (02/07/2024 9:30 PM BOTTOM FILLER) WBC 5.8 3.8 - 9.9 K/cumm Hgb 7.8(L) 11.9 - 15.5 g/dL [facility] Hct 24.7(L) 35.6 - 45.5 % [facility] Plt 226 150 - 400 K/cumm [facility] MPV 9.8 9.1 - 12.3 fL [facility] RBC 2.95(L) 3.90 - 5.20 M/cumm [facility] MCV 83.7 81.3 - 96.4 fL [facility] MCH 26.4(L) 27.1 - 33.3 pg [facility] MCHC 31.6(L) 32.3 - 35.7 g/dL [facility] RDW CV 13.3 11.1 - 14.9 % [facility] RDW SD 40.3 35.7 - 48.1 fL [facility] NRBC abs 0.00 0.00 - 0.01 K/cumm [facility] Blood 02/07/2024 9:30 PM BOTTOM FILLER 02/07/2024 10:29 PM BOTTOM FILLER Carin Granados MD LAB BLOOD ORDERABLES Tete l Result Performing Organization Address City/[facility] Co de Phone Number [facility] [place] [address] * Phosphorus (02/07/2024 9:30 PM BOTTOM FILLER) Phosphorus, pl 4.4 2.3 - 4.5 mg/dL Blood 02/07/2024 9:30 PM BOTTOM FILLER 02/07/2024 10:34 PM BOTTOM FILLER Carin Granados MD LAB BLOOD ORDERABLES Tete l Result Performing Organization Address [facility] Co de Phone Number [facility] Department [place] [address] * Magnesium (02/07/2024 9:30 PM BOTTOM FILLER) Magnesium 2.1 1.4 - 2.5 mg/dL Blood 02/07/2024 9:30 PM BOTTOM FILLER 02/07/2024 10:34 PM BOTTOM FILLER Carin Granados MD LAB BLOOD ORDERABLES Tete l Result Performing Organization Address [facility] Co de Phone Number [facility] [place] [address] * (ABNORMAL) Hepatic function panel (02/07/2024 9:30 PM BOTTOM FILLER) [facility] Bilirubin, total 1.1 0.1 - 1.2 mg/dL Bilirubin, direct 0.3 0.1 - 0.3 mg/dL [facility] Protein, pl 6.7 6.5 - 8.5 g/dL [facility] Albumin 2.7(L) 3.5 - 5.0 g/dL [facility] Alk phos 326(H) 40 - 130 Units/L [facility] ALT 31 7 - 45 Units/L [facility] AST 80(H) 10 - 45 Units/L [facility] Blood 02/07/2024 9:30 PM BOTTOM FILLER 02/07/2024 10:34 PM BOTTOM FILLER Carin Granados MD LAB BLOOD ORDERABLES Tete l Result [facility] Department [place] [address] * Basic metabolic panel (02/07/2024 9:30 PM BOTTOM FILLER) [facility] Sodium 139 135 - 145 mmol/L Potassium, pl 4.5 3.3 - 4.9 mmol/L [facility] Chloride 103 97 - 110 mmol/L [facility] CO2 28 22 - 32 mmol/L [facility] Anion gap 8 2 - 15 mmol/L [facility] BUN 24 6 - 25 mg/dL [facility] Creatinine 1.10 0.60 - 1.10 mg/dL [facility] Glucose 109 70 - 199 mg/dL [facility] Comment: Interpretive Data Fasting glucose >/= 126 [...] 2022. Calcium 8.7 8.5 - 10.3 mg/dL [facility] Blood 02/07/2024 9:30 PM BOTTOM FILLER 02/07/2024 10:34 PM BOTTOM FILLER us Carin Granados MD LAB BLOOD ORDERABLES Tete l Result [facility] [place] [address] * POCT glucose (02/07/2024 8:20 PM BOTTOM FILLER) Glucose, POC 127 70 - 199 mg/dL Blood 02/07/2024 8:20 PM BOTTOM FILLER 02/07/2024 8:20 PM BOTTOM FILLER us Kassidy Pinzon MD LAB POCT ORDERABLES - DEVIC E Final Result Performing Organization Address City/[facility] Co de Phone Number [facility] [place] [address] * POCT glucose (02/07/2024 4:41 PM BOTTOM FILLER) Glucose, POC 113 70 - 199 mg/dL Blood 02/07/2024 4:41 PM BOTTOM FILLER 02/07/2024 4:41 PM BOTTOM FILLER Kassidy Pinzon MD LAB POCT ORDERABLES - DEVIC E Final Result Performing Organization Address [facility] Co de Phone Number [facility] [place] [address] * POCT glucose (02/07/2024 12:22 PM BOTTOM FILLER) Glucose, POC 77 70 - 199 mg/dL Blood 02/07/2024 12:2 2 PM BOTTOM FILLER 02/07/2024 12:22 PM BOTTOM FILLER Kassidy Pinzon MD LAB POCT ORDERABLES - DEVIC E Final Result Performing Organization Address [facility] Co de Phone Number [facility] [place] [address] * Tissue aerobic and anaerobic culture and gram stain Bone Sacral (02/07/2024 11:30 AM BOTTOM FILLER) Direct Specimen Exam Stain: No polymorphonuclear leukocytes seen. No organisms seen. Report Final Report: No growth [facility] Bone (Sacral) 02/07/2024 11: 30 AM BOTTOM FILLER 02/07/2024 3:04 PM BOTTOM FILLER Narrative [facility] - 02/10/2024 12:53 PM BOTTOM FILLER This is NOT Aspirate but instead a Coccyx Bone Biopsy Testing performed by [facility] ([phone]) Specimens submitted from normally sterile body sites [...] GENERAL ORDERABLES Final Result Performing Organization Address [facility] Co de Phone Number [facility] [place] [address] * Mycology (fungal) culture and stain Aspirate Sacral (02/07/2024 11:30 AM BOTTOM FILLER) Direct Specimen Exam Stain: No Fungal elements seen. Report Final Report: No growth of fungus [facility] Aspirate (Sacral) 02/07/2024 11:30 AM BOTTOM FILLER 02/07/2024 3:09 PM BOTTOM FILLER Narrative [facility] - 03/06/2024 8:33 AM BOTTOM FILLER Coccyx Aspirate Testing performed by [facility] ([phone]). us Carin Granados MD LAB MICROBIOLOGY - GENERA L ORDERABLES Final Result Performing Organization Address City/[facility] Co de Phone Number [facility] [place] [address] * Mycology (fungal) culture Bone Sacral (02/07/2024 11:30 AM BOTTOM FILLER) Report Final Report: No growth of fungus Bone (Sacral) 02/07/2024 11: 30 AM BOTTOM FILLER 02/07/2024 3:45 PM BOTTOM FILLER Narrative [facility] - 03/06/2024 8:33 AM BOTTOM FILLER Coccyx Bone Biopsy Testing performed by [facility] ([phone]). us Kassidy Pinzon MD LAB MICROBIOLOGY - GENERAL ORDERABLES Final Result Performing Organization Address [facility] Co de Phone Number [facility] [place] [address] * Mycobacteriology (AFB) culture and acid-fast stain Bone Sacral (02/07/2024 11:30 AM BOTTOM FILLER) Direct Specimen Exam Stain: No Acid-fast bacilli seen Report Final Report: No growth of acid-fast bacilli [facility] Bone (Sacral) 02/07/2024 11: 30 AM BOTTOM FILLER 02/07/2024 3:07 PM BOTTOM FILLER Narrative [facility] - 04/09/2024 9:27 AM BOTTOM FILLER Coccyx Bone Biopsy Testing performed by [facility] ([phone]). us Carin Granados MD LAB MICROBIOLOGY - GENERA L ORDERABLES Final Result [facility] [place] [address] * Mycobacteriology (AFB) culture and acid-fast stain Aspirate Sacral (02/07/2024 11:30 AM BOTTOM FILLER) Direct Specimen Exam Stain: No Acid-fast bacilli seen Report Final Report: No growth of acid-fast bacilli [facility] Aspirate (Sacral) 02/07/2024 11:30 AM BOTTOM FILLER 02/07/2024 3:09 PM BOTTOM FILLER Narrative [facility] - 04/09/2024 9:27 AM BOTTOM FILLER Coccyx Aspirate Testing performed by [facility] ([phone]). us Carin Granados MD LAB MICROBIOLOGY - GENERA L ORDERABLES Final Result [facility] [place] [address] * Aerobic and anaerobic culture and gram stain Aspirate Sacral (02/07/2024 11:30 AM BOTTOM FILLER) Direct Specimen Exam Stain: Rare polymorphonuclear leukocytes seen. No organisms seen. Report Final Report: No growth [facility] Aspirate (Sacral) 02/07/2024 11:30 AM BOTTOM FILLER 02/07/2024 3:09 PM BOTTOM FILLER Narrative [facility] - 02/10/2024 12:52 PM BOTTOM FILLER Coccyx Aspirate Testing performed by [facility] ([phone]) Specimens submitted from normally sterile body sites [...] L ORDERABLES Final Result [facility] [place] [address] * IR Biopsy Deep Bone (02/07/2024 11:29 AM BOTTOM FILLER) Anatomical Region Laterality Modality Body N/A Computed Tomogra phy 02/07/2024 1:23 PM BOTTOM FILLER Impressions 02/07/2024 5:11 PM BOTTOM FILLER Coccygeal bone biopsy under CT guidance. The core specimens were sent to surgical pathology and microbiology. Aspirate was sent to microbiology. Dictated by: Craig Sheppard M.D. The radiology attending physician has personally reviewed this study, and had reviewed and/or edited this written report and agrees with it. 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 Jorge Carolina MD, PHD, the attending radiologist, was present from the beginning to the end of the procedure. Dr. Ness (radiology clerk) was present and participated in the procedure. [...] was obtained. Prior to beginning the procedure, [place] Protocol was performed to confirm the patient's [...] end of the procedure. Dr. Ness (radiology clerk) was present and participated in the procedure. [...] was obtained. Prior to beginning the procedure, [place] Protocol was performed to confirm the patient's [...] subcutaneous and deep anesthesia. 10/12 gauge Arrow [email or web address] coaxial biopsy device was inserted into the [...] esult * Surgical pathology (02/07/2024 11:15 AM BOTTOM FILLER) Bone biopsy, metabolic disease 02/07/2024 11:15 AM BOTTOM FILLER 02/07/2024 2:18 PM BOTTOM FILLER Narrative 02/09/2024 10:35 AM BOTTOM FILLER EPIC results best viewed via link to PDF [facility] [place] [address] Note to Patients: This report may contain [...] Gender: F : 1985 (Age: 38) Address: [address] [place] [id number] Hospital #: [id number] Taken:02/07/2024 Received:02/07/2024 Reported: 02/09/2024 Patient Type: [facility] Inpatient Service: Medical Location: [facility] Physician(s): Jorge Carolina M.D. Barbara Oliva MD [...] Pathology and Flow Cytometry Departments at [facility] as part of an ongoing quality control chemist program and in compliance with federally mandated [...] Pathology and Flow Cytometry Departments of [facility]. It has not been cleared or approved by the U. S. Food and Drug Administration. IMAGES AND SCANNED DOCUMENTS, IF INCLUDED, ONLY VIEWABLE IN PDF VERSION OF REPORT us Jorge Carolina MD PhD LAB PATHOLOGY ORDER [place] Final Result * POCT glucose (02/07/2024 8:36 AM BOTTOM FILLER) Glucose, POC 79 70 - 199 mg/dL Blood 02/07/2024 8:36 AM BOTTOM FILLER 02/07/2024 8:36 AM BOTTOM FILLER Kassidy Pinzon MD LAB POCT ORDERABLES - DEVIC E Final Result Performing Organization Address [facility] Co de Phone Number [facility] Department [place] [address] * POCT glucose (02/07/2024 7:46 AM BOTTOM FILLER) Glucose, POC 83 70 - 199 mg/dL Blood 02/07/2024 7:46 AM BOTTOM FILLER 02/07/2024 7:46 AM BOTTOM FILLER Kassidy Pinzon MD LAB POCT ORDERABLES - DEVIC E Final Result Performing Organization Address [facility] Phone Number [facility] Department [place] [address] * (ABNORMAL) Vancomycin level trough Draw trough 30 minutes prior to 4th dose. (02/07/2024 2:37 AM BOTTOM FILLER) Vancomycin trough 24.3(H) 10.0 - 20.0 mcg/mL Blood 02/07/2024 2:37 AM BOTTOM FILLER 02/07/2024 3:13 AM BOTTOM FILLER Narrative [facility] - 02/07/2024 3:44 AM BOTTOM FILLER Draw trough 30 minutes prior to 4th dose. us Carin Granados MD LAB BLOOD ORDERABLES Tete l Result Performing Organization Address City/[facility] Co de Phone Number [facility] [place] [address] * eGFR (02/06/2024 9:36 PM BOTTOM FILLER) Pathologist [facility] eGFR 71 >=60 mL/min/1. 73 m2 Comment: [...] last reviewed 2021. Blood 02/06/2024 9:36 PM BOTTOM FILLER 02/06/2024 11:02 PM BOTTOM FILLER Carin Granados MD LAB BLOOD ORDERABLES Tete l Result Performing Organization Address [facility] Co de Phone Number [facility] Department [place] [address] * Differential, auto (02/06/2024 9:36 PM BOTTOM FILLER) Pathologist [facility] Neutrophil abs 3.8 1.5 - 6.5 K/cumm Imm gran abs 0.0 0.0 - 0.1 K/cumm [facility] Lymphocyte abs 0.9 0.8 - 3.3 K/cumm [facility] Monocyte abs 0.6 0.2 - 0.8 K/cumm [facility] Eosinophil abs 0.3 0.0 - 0.5 K/cumm [facility] Basophil abs 0.0 0.0 - 0.1 K/cumm [facility] Neutrophil pct 68.0 % [facility] Comment: Interpretive Data Percent cell count reference ranges are not reported, since discordance with absolute values may lead to misinterpretation of CBC data. Current Interpretive Data was last revised on 2017. Imm gran pct 0.2 % [facility] Comment: Interpretive Data Percent cell count reference ranges are not reported, since discordance with absolute values may lead to misinterpretation of CBC data. Current Interpretive Data was last revised on 2017. Lymphocyte pct 16.0 % [facility] Comment: Interpretive Data Percent cell count reference ranges are not reported, since discordance with absolute values may lead to misinterpretation of CBC data. Current Interpretive Data was last revised on 2017. Monocyte pct 10.8 % [facility] Comment: Interpretive Data Percent cell count reference ranges are not reported, since discordance with absolute values may lead to misinterpretation of CBC data. Current Interpretive Data was last revised on 2017. Eosinophil pct 4.8 % [facility] Comment: Interpretive Data Percent cell count reference ranges are not reported, since discordance with absolute values may lead to misinterpretation of CBC data. Current Interpretive Data was last revised on 2017. Basophil pct 0.2 % [facility] Comment: Interpretive Data Percent cell count reference ranges are not reported, since discordance with absolute values may lead to misinterpretation of CBC data. Current Interpretive Data was last revised on 2017. Blood 02/06/2024 9:36 PM BOTTOM FILLER 02/06/2024 11:03 PM BOTTOM FILLER us Carin Granados MD LAB BLOOD ORDERABLES Tete palomino Result [facility] [place] [address] * (ABNORMAL) CBC with auto differential (02/06/2024 9:36 PM BOTTOM FILLER) [facility] WBC 5.6 3.8 - 9.9 K/cumm Hgb 8.1(L) 11.9 - 15.5 g/dL [facility] Hct 25.1(L) 35.6 - 45.5 % [facility] Plt 226 150 - 400 K/cumm [facility] MPV 9.6 9.1 - 12.3 fL [facility] RBC 3.03(L) 3.90 - 5.20 M/cumm [facility] MCV 82.8 81.3 - 96.4 fL [facility] MCH 26.7(L) 27.1 - 33.3 pg [facility] [facility] MCHC 32.3 32.3 - 35.7 g/dL [facility] RDW CV 13.5 11.1 - 14.9 % [facility] RDW SD 41.0 35.7 - 48.1 fL [facility] NRBC abs 0.00 0.00 - 0.01 K/cumm [facility] Blood 02/06/2024 9:36 PM BOTTOM FILLER 02/06/2024 11:03 PM BOTTOM FILLER us Carin Granados MD LAB BLOOD ORDERABLES Tete l Result Performing Organization Address City/[facility] Co de Phone Number [facility] Department [place] [address] * Phosphorus (02/06/2024 9:36 PM BOTTOM FILLER) [facility] Phosphorus, pl 4.5 2.3 - 4.5 mg/dL Blood 02/06/2024 9:36 PM BOTTOM FILLER 02/06/2024 11:02 PM BOTTOM FILLER Carin Granados MD LAB BLOOD ORDERABLES Tete l Result [facility] Department [place] [address] * Magnesium (02/06/2024 9:36 PM BOTTOM FILLER) [facility] Magnesium 2.1 1.4 - 2.5 mg/dL Blood 02/06/2024 9:36 PM BOTTOM FILLER 02/06/2024 11:02 PM BOTTOM FILLER Carin Granados MD LAB BLOOD ORDERABLES Tete l Result Performing Organization Address [facility] de Phone Number [facility] [place] [address] * (ABNORMAL) Hepatic function panel (02/06/2024 9:36 PM BOTTOM FILLER) [facility] Bilirubin, total 1.0 0.1 - 1.2 mg/dL Bilirubin, direct 0.3 0.1 - 0.3 mg/dL [facility] Protein, pl 6.9 6.5 - 8.5 g/dL [facility] Albumin 2.8(L) 3.5 - 5.0 g/dL [facility] Alk phos 316(H) 40 - 130 Units/L [facility] ALT 30 7 - 45 Units/L [facility] AST 80(H) 10 - 45 Units/L [facility] Blood 02/06/2024 9:36 PM BOTTOM FILLER 02/06/2024 11:02 PM BOTTOM FILLER Result [facility] Carin Granados MD LAB BLOOD ORDERABLES Tete l Result Performing Organization Address [facility] de Phone Number [facility] [place] [address] * Basic metabolic panel (02/06/2024 9:36 PM BOTTOM FILLER) [facility] Sodium 135 135 - 145 mmol/L Potassium, pl 4.9 3.3 - 4.9 mmol/L [facility] Chloride 100 97 - 110 mmol/L [facility] CO2 31 22 - 32 mmol/L [facility] Anion gap 4 2 - 15 mmol/L [facility] BUN 24 6 - 25 mg/dL [facility] Creatinine 1.04 0.60 - 1.10 mg/dL [facility] Glucose 83 70 - 199 mg/dL [facility] Comment: Interpretive Data Fasting glucose >/= 126 [...] 2022. Calcium 9.0 8.5 - 10.3 mg/dL [facility] Blood 02/06/2024 9:36 PM BOTTOM FILLER 02/06/2024 11:02 PM BOTTOM FILLER Carin Granados MD LAB BLOOD ORDERABLES Tete l Result Performing Organization Address City/[facility]/ZIP Co de Phone Number [facility] [place] [address] * POCT glucose (02/06/2024 9:32 PM BOTTOM FILLER) Glucose, POC 111 70 - 199 mg/dL Blood 02/06/2024 9:32 PM BOTTOM FILLER 02/06/2024 9:32 PM BOTTOM FILLER Carin Granados MD LAB POCT ORDERABLES - DEV ICE Final Result [facility] [address] [place] [address] * POCT glucose (02/06/2024 5:33 PM BOTTOM FILLER) Glucose, POC 90 70 - 199 mg/dL Blood 02/06/2024 5:33 PM BOTTOM FILLER 02/06/2024 5:33 PM BOTTOM FILLER Carin Granados MD LAB POCT ORDERABLES - DEV ICE Final Result Performing Organization Address [facility] Co de Phone Number [facility] [place] [address] * POCT glucose (02/06/2024 11:52 AM BOTTOM FILLER) Glucose, POC 104 70 - 199 mg/dL Blood 02/06/2024 11:5 2 AM BOTTOM FILLER 02/06/2024 11:52 AM BOTTOM FILLER Carin Granados MD LAB POCT ORDERABLES - DEV ICE Final Result Performing Organization Address [facility] de Phone Number [facility] [place] [address] * POCT glucose (02/06/2024 8:16 AM BOTTOM FILLER) Glucose, POC 89 70 - 199 mg/dL Blood 02/06/2024 8:16 AM BOTTOM FILLER 02/06/2024 8:16 AM BOTTOM FILLER Carin Granados MD LAB POCT ORDERABLES - DEV ICE Final Result Performing Organization Address [facility] de Phone Number [facility] [place] [address] * Troponin I high-sensitivity series (baseline, 2hr, 4hr, 6hr) (02/06/2024 6:53 AM BOTTOM FILLER) Trop I hs <4 <=17 ng/L Comment: Interpretive Data For further hscTnI resources including the diagnostic algorithm and an aid in interpretation, copy and paste this link: [email or web address].[email or web address]/[email or web address] Current Interpretive Data last revised 2019. Blood 02/06/2024 6:53 AM BOTTOM FILLER 02/06/2024 7:52 AM BOTTOM FILLER us Herrera Orosco MD LAB BLOOD ORDERABLES Final Resu lt Performing Organization Address City/[facility] Co de Phone Number [facility] [place] [address] * eGFR (02/05/2024 10:32 PM BOTTOM FILLER) eGFR 67 >=60 mL/min/1. 73 m2 Comment: [...] reviewed 2021. Blood 02/05/2024 10:3 2 PM BOTTOM FILLER 02/05/2024 11:39 PM BOTTOM FILLER us Carin Granados MD LAB BLOOD ORDERABLES Tete l Result Performing Organization Address City/[facility]/ZIP Co de Phone Number [facility] Department [place] [address] * Differential, auto (02/05/2024 10:32 PM BOTTOM FILLER) Neutrophil abs 4.1 1.5 - 6.5 K/cumm Imm gran abs 0.0 0.0 - 0.1 K/cumm [facility] Lymphocyte abs 0.9 0.8 - 3.3 K/cumm [facility] Monocyte abs 0.8 0.2 - 0.8 K/cumm [facility] Eosinophil abs 0.3 0.0 - 0.5 K/cumm [facility] Basophil abs 0.0 0.0 - 0.1 K/cumm [facility] Neutrophil pct 67.2 % [facility] Comment: Interpretive Data Percent cell count reference ranges are not reported, since discordance with absolute values may lead to misinterpretation of CBC data. Current Interpretive Data was last revised on 2017. Imm gran pct 0.3 % [facility] Comment: Interpretive Data Percent cell count reference ranges are not reported, since discordance with absolute values may lead to misinterpretation of CBC data. Current Interpretive Data was last revised on 2017. Lymphocyte pct 15.0 % [facility] Comment: Interpretive Data Percent cell count reference ranges are not reported, since discordance with absolute values may lead to misinterpretation of CBC data. Current Interpretive Data was last revised on 2017. Monocyte pct 12.3 % [facility] Comment: Interpretive Data Percent cell count reference ranges are not reported, since discordance with absolute values may lead to misinterpretation of CBC data. Current Interpretive Data was last revised on 2017. Eosinophil pct 4.9 % [facility] Comment: Interpretive Data Percent cell count reference ranges are not reported, since discordance with absolute values may lead to misinterpretation of CBC data. Current Interpretive Data was last revised on 2017. Basophil pct 0.3 % [facility] Comment: Interpretive Data Percent cell count reference ranges are not reported, since discordance with absolute values may lead to misinterpretation of CBC data. Current Interpretive Data was last revised on 2017. Blood 02/05/2024 10:3 2 PM BOTTOM FILLER 02/05/2024 11:27 PM BOTTOM FILLER us Carin Granados MD LAB BLOOD ORDERABLES Tete palomino Result [facility] Department [place] [address] * (ABNORMAL) CBC with auto differential (02/05/2024 10:32 PM BOTTOM FILLER) [facility] WBC 6.1 3.8 - 9.9 K/cumm Hgb 7.7(L) 11.9 - 15.5 g/dL [facility] Hct 24.4(L) 35.6 - 45.5 % [facility] Plt 228 150 - 400 K/cumm [facility] MPV 9.8 9.1 - 12.3 fL [facility] RBC 2.94(L) 3.90 - 5.20 M/cumm [facility] MCV 83.0 81.3 - 96.4 fL [facility] MCH 26.2(L) 27.1 - 33.3 pg [facility] MCHC 31.6(L) 32.3 - 35.7 g/dL [facility] RDW CV 13.8 11.1 - 14.9 % [facility] RDW SD 42.0 35.7 - 48.1 fL [facility] NRBC abs 0.00 0.00 - 0.01 K/cumm [facility] Blood 02/05/2024 10:3 2 PM BOTTOM FILLER 02/05/2024 11:27 PM BOTTOM FILLER Carin Granados MD LAB BLOOD ORDERABLES Tete l Result Performing Organization Address [facility] Co de Phone Number [facility] [place] [address] * Phosphorus (02/05/2024 10:32 PM BOTTOM FILLER) [facility] Phosphorus, pl 3.9 2.3 - 4.5 mg/dL Blood 02/05/2024 10:3 2 PM BOTTOM FILLER 02/05/2024 11:39 PM BOTTOM FILLER Carin Granados MD LAB BLOOD ORDERABLES Tete l Result [facility] [place] [address] * Magnesium (02/05/2024 10:32 PM BOTTOM FILLER) [facility] Magnesium 2.5 1.4 - 2.5 mg/dL Blood 02/05/2024 10:3 2 PM BOTTOM FILLER 02/05/2024 11:39 PM BOTTOM FILLER Carin Granados MD LAB BLOOD ORDERABLES Tete l Result Performing Organization Address [facility] Co de Phone Number [facility] Department [place] [address] * (ABNORMAL) Hepatic function panel (02/05/2024 10:32 PM BOTTOM FILLER) [facility] Bilirubin, total 0.8 0.1 - 1.2 mg/dL Bilirubin, direct 0.3 0.1 - 0.3 mg/dL [facility] Protein, pl 6.6 6.5 - 8.5 g/dL [facility] Albumin 2.7(L) 3.5 - 5.0 g/dL [facility] Alk phos 288(H) 40 - 130 Units/L [facility] ALT 25 7 - 45 Units/L [facility] AST 65(H) 10 - 45 Units/L [facility] Blood 02/05/2024 10:3 2 PM BOTTOM FILLER 02/05/2024 11:39 PM BOTTOM FILLER Carin Granados MD LAB BLOOD ORDERABLES Tete l Result Performing Organization Address [facility] Co de Phone Number [facility] Department [place] [address] * (ABNORMAL) Basic metabolic panel (02/05/2024 10:32 PM BOTTOM FILLER) [facility] Sodium 139 135 - 145 mmol/L Potassium, pl 5.4(H) 3.3 - 4.9 mmol/L [facility] Chloride 101 97 - 110 mmol/L [facility] CO2 30 22 - 32 mmol/L [facility] Anion gap 8 2 - 15 mmol/L [facility] BUN 30(H) 6 - 25 mg/dL [facility] Creatinine 1.08 0.60 - 1.10 mg/dL [facility] Glucose 125 70 - 199 mg/dL [facility] Comment: Interpretive Data Fasting glucose >/= 126 [...] 2022. Calcium 8.9 8.5 - 10.3 mg/dL [facility] Blood 02/05/2024 10:3 2 PM BOTTOM FILLER 02/05/2024 11:39 PM BOTTOM FILLER us Carin Granados MD LAB BLOOD ORDERABLES Tete l Result [facility] [address] [place] [address] * POCT glucose (02/05/2024 9:13 PM BOTTOM FILLER) Glucose, POC 171 70 - 199 mg/dL Blood 02/05/2024 9:13 PM BOTTOM FILLER 02/05/2024 9:13 PM BOTTOM FILLER Carin Granados MD LAB POCT ORDERABLES - DEV ICE Final Result [facility] [address] [place] [address] * POCT glucose (02/05/2024 5:38 PM BOTTOM FILLER) Glucose, POC 149 70 - 199 mg/dL Blood 02/05/2024 5:38 PM BOTTOM FILLER 02/05/2024 5:38 PM BOTTOM FILLER Carin Granados MD LAB POCT ORDERABLES - DEV ICE Final Result Performing Organization Address [facility] Co de Phone Number [facility] Department [place] [address] * Blood culture Blood (02/05/2024 3:25 PM BOTTOM FILLER) Report Final Report: No growth Blood 02/05/2024 3:25 PM BOTTOM FILLER 02/05/2024 4:30 PM BOTTOM FILLER Narrative [facility] - 02/10/2024 7:00 AM BOTTOM FILLER Collection->Peripheral 1. Blood cultures are incubated for [...] organism identification may be performed using the [employer] Gram-Positive Blood Culture Assay. This assay detects microbial DNA in positive blood culture broth via hybridization of target DNA to capture oligonucleotides on a microarray. This assay has been cleared by the [place] Food and Drug Administration and its performance characteristics have been verified by the [facility]. 5. For questions about this culture, contact the Microbiology Laboratory at [phone]. Interpretive data was last revised on 2019. Carin Granados MD LAB MICROBIOLOGY - GENERA L ORDERABLES Final Result Performing Organization Address [facility] Co de Phone Number [facility] Department [place] [address] * Blood culture Blood (02/05/2024 3:25 PM BOTTOM FILLER) Report Final Report: No growth Blood 02/05/2024 3:25 PM BOTTOM FILLER 02/05/2024 4:30 PM BOTTOM FILLER Narrative [facility] - 02/10/2024 7:00 AM BOTTOM FILLER Collection->Peripheral 1. Blood cultures are incubated for [...] organism identification may be performed using the [employer] Gram-Positive Blood Culture Assay. This assay detects microbial DNA in positive blood culture broth via hybridization of target DNA to capture oligonucleotides on a microarray. This assay has been cleared by the [place] Food and Drug Administration and its performance characteristics have been verified by the [facility]biology [facility]. 5. For questions about this culture, contact the Microbiology Laboratory at [phone]. Interpretive data was last revised on 2019. us Carin Granados MD LAB MICROBIOLOGY - GENERA L ORDERABLES Final Result [facility] [place] [address] * POCT glucose (02/05/2024 2:10 PM BOTTOM FILLER) Glucose, POC 170 70 - 199 mg/dL Blood 02/05/2024 2:10 PM BOTTOM FILLER 02/05/2024 2:10 PM BOTTOM FILLER Carin Garnados MD LAB POCT ORDERABLES - DEV ICE Final Result Performing Organization Address City/[facility] Co de Phone Number [facility] [place] [address] * POCT glucose (02/05/2024 9:18 AM BOTTOM FILLER) Glucose, POC 88 70 - 199 mg/dL Blood 02/05/2024 9:18 AM BOTTOM FILLER 02/05/2024 9:18 AM BOTTOM FILLER Carin Granados MD LAB POCT ORDERABLES - DEV ICE Final Result Performing Organization Address [facility] de Phone Number [facility] [place] [address] * Wound Care (02/05/2024 8:16 AM BOTTOM FILLER) Narrative Sari Santos DO - 02/05/2024 8:16 AM BOTTOM FILLER Andrew Seaman MD 02/05/2024 8:21 AM Wound Care Date/Time: 02/05/2024 8:16 AM Performed by: Andrew Seaman MD Authorized by: Andrew Seaman MD Associated wounds: Wound 12/04/23 Pressure Injury Sacrum Consent: Consent obtained: Verbal Consent given by: Patient Risks, benefits, and alternatives were discussed: yes Risks discussed: Bleeding and infection Alternatives discussed: No treatment [place] protocol: Procedure explained and questions answered to [...] (ABNORMAL) Potassium, whole blood (02/05/2024 8:08 AM BOTTOM FILLER) Potassium, bld 5.4(H) 3.3 - 4.9 mmol/L Blood 02/05/2024 8:08 AM BOTTOM FILLER 02/05/2024 8:48 AM BOTTOM FILLER Ashkan Reyes MD LAB BLOOD ORDERABLES Final Result Performing Organization Address [facility] de Phone Number [facility] Department [place] [address] * (ABNORMAL) Potassium (02/05/2024 7:45 AM BOTTOM FILLER) Potassium, pl 5.2(H) 3.3 - 4.9 mmol/L Blood 02/05/2024 7:45 AM BOTTOM FILLER 02/05/2024 8:12 AM BOTTOM FILLER Narrative [facility] - 02/05/2024 8:32 AM BOTTOM FILLER Provider to discontinue after two normal results. Ashkan Reyes MD LAB BLOOD ORDERABLES Final Result Performing Organization Address [facility] Co de Phone Number [facility] [place] [address] * POCT glucose (02/05/2024 6:00 AM BOTTOM FILLER) Glucose, POC 124 70 - 199 mg/dL Blood 02/05/2024 6:00 AM BOTTOM FILLER 02/05/2024 6:00 AM BOTTOM FILLER Carin Granados MD LAB POCT ORDERABLES - DEV ICE Final Result Performing Organization Address City/[facility] Co de Phone Number [facility] [place] [address] * POCT glucose (02/05/2024 5:04 AM BOTTOM FILLER) Glucose, POC 119 70 - 199 mg/dL Blood 02/05/2024 5:04 AM BOTTOM FILLER 02/05/2024 5:04 AM BOTTOM FILLER Carin Granados MD LAB POCT ORDERABLES - DEV ICE Final Result Performing Organization Address [facility] [place] [address] * POCT glucose (02/05/2024 4:11 AM BOTTOM FILLER) Glucose, POC 105 70 - 199 mg/dL Blood 02/05/2024 4:11 AM BOTTOM FILLER 02/05/2024 4:11 AM BOTTOM FILLER Result [facility] Carin Granados MD LAB POCT ORDERABLES - DEV ICE Final Result Performing Organization Address [facility] Co [place] [address] * ECG 12 lead (02/05/2024 3:22 AM BOTTOM FILLER) Ventricular Rate EKG/Min 101 BPM [facility] Atrial Rate 101 BPM [facility] IL-Interval (MSEC) 148 ms [facility] QRS-Interval (MSEC) 82 ms [facility] QT-Interval (MSEC) 338 ms [facility] QTc 438 ms [facility] P [place] 67 degrees [facility] R [place] 21 degrees [facility] T [place] 48 degrees [facility] Diagnosis Sinus tachycardia Otherwise normal ECG When compared with ECG of 21-JAN-2024 15:37, T wave amplitude has increased in Anterior leads Confirmed by KIRSTIN GIVENS M.D ([id number]) on 02/09/2024 11:54:39 AM [facility] 02/05/2024 3:22 AM BOTTOM FILLER 02/09/2024 11:54 AM BOTTOM FILLER us Ashkan Reyes MD ECG ORDERABLES Final Resu lt [facility] * eGFR (02/04/2024 9:38 PM BOTTOM FILLER) Pathologist [facility] eGFR 66 >=60 mL/min/1. 73 m2 Comment: [...] last reviewed 2021. Blood 02/04/2024 9:38 PM BOTTOM FILLER 02/04/2024 11:21 PM BOTTOM FILLER us Carin Granados MD LAB BLOOD ORDERABLES Tete l Result [facility] Department [place] [address] * Differential, auto (02/04/2024 9:38 PM BOTTOM FILLER) Neutrophil abs 6.2 1.5 - 6.5 K/cumm Imm gran abs 0.1 0.0 - 0.1 K/cumm [facility] Lymphocyte abs 0.9 0.8 - 3.3 K/cumm [facility] Monocyte abs 0.8 0.2 - 0.8 K/cumm [facility] Eosinophil abs 0.4 0.0 - 0.5 K/cumm [facility] Basophil abs 0.0 0.0 - 0.1 K/cumm [facility] Neutrophil pct 74.5 % [facility] Comment: Interpretive Data Percent cell count reference ranges are not reported, since discordance with absolute values may lead to misinterpretation of CBC data. Current Interpretive Data was last revised on 2017. Imm gran pct 0.6 % [facility] Comment: Interpretive Data Percent cell count reference ranges are not reported, since discordance with absolute values may lead to misinterpretation of CBC data. Current Interpretive Data was last revised on 2017. Lymphocyte pct 10.9 % [facility] Comment: Interpretive Data Percent cell count reference ranges are not reported, since discordance with absolute values may lead to misinterpretation of CBC data. Current Interpretive Data was last revised on 2017. Monocyte pct 9.2 % [facility] Comment: Interpretive Data Percent cell count reference ranges are not reported, since discordance with absolute values may lead to misinterpretation of CBC data. Current Interpretive Data was last revised on 2017. Eosinophil pct 4.4 % [facility] Comment: Interpretive Data Percent cell count reference ranges are not reported, since discordance with absolute values may lead to misinterpretation of CBC data. Current Interpretive Data was last revised on 2017. Basophil pct 0.4 % [facility] Comment: Interpretive Data Percent cell count reference ranges are not reported, since discordance with absolute values may lead to misinterpretation of CBC data. Current Interpretive Data was last revised on 2017. Blood 02/04/2024 9:38 PM BOTTOM FILLER 02/04/2024 11:22 PM BOTTOM FILLER us Carin Granados MD LAB BLOOD ORDERABLES Tete l Result Performing Organization Address City/State/[facility] de Phone Number [facility] [place] [address] * (ABNORMAL) CBC with auto differential (02/04/2024 9:38 PM BOTTOM FILLER) Pathologist [facility] WBC 8.3 3.8 - 9.9 K/cumm Hgb 7.9(L) 11.9 - 15.5 g/dL [facility] Hct 25.1(L) 35.6 - 45.5 % [facility] Plt 252 150 - 400 K/cumm [facility] MPV 10.4 9.1 - 12.3 fL [facility] RBC 2.97(L) 3.90 - 5.20 M/cumm [facility] MCV 84.5 81.3 - 96.4 fL [facility] MCH 26.6(L) 27.1 - 33.3 pg [facility] MCHC 31.5(L) 32.3 - 35.7 g/dL [facility] RDW CV 14.1 11.1 - 14.9 % [facility] RDW SD 43.5 35.7 - 48.1 fL [facility] NRBC abs 0.00 0.00 - 0.01 K/cumm [facility] Blood 02/04/2024 9:38 PM BOTTOM FILLER 02/04/2024 11:22 PM BOTTOM FILLER us Carin Granados MD LAB BLOOD ORDERABLES Tete l Result Performing Organization Address [facility] Co de Phone Number [facility] [place] [address] * Phosphorus (02/04/2024 9:38 PM BOTTOM FILLER) Pathologist [facility] Phosphorus, pl 3.4 2.3 - 4.5 mg/dL Blood 02/04/2024 9:38 PM BOTTOM FILLER 02/04/2024 11:21 PM BOTTOM FILLER us Carin Granados MD LAB BLOOD ORDERABLES Tete l Result Performing Organization Address [facility] Co de Phone Number [facility] [place] [address] * (ABNORMAL) Magnesium (02/04/2024 9:38 PM BOTTOM FILLER) Pathologist [facility] Magnesium 2.6(H) 1.4 - 2.5 mg/dL Blood 02/04/2024 9:38 PM BOTTOM FILLER 02/04/2024 11:21 PM BOTTOM FILLER Carin Granados MD LAB BLOOD ORDERABLES Tete l Result Performing Organization Address [facility] de Phone Number [facility] [place] [address] * (ABNORMAL) Hepatic function panel (02/04/2024 9:38 PM BOTTOM FILLER) [facility] Bilirubin, total 0.8 0.1 - 1.2 mg/dL Bilirubin, direct 0.2 0.1 - 0.3 mg/dL [facility] Comment:Reviewed Protein, pl 6.6 6.5 - 8.5 g/dL [facility] Albumin 2.5(L) 3.5 - 5.0 g/dL [facility] Alk phos 268(H) 40 - 130 Units/L [facility] ALT 17 7 - 45 Units/L [facility] AST 61(H) 10 - 45 Units/L [facility] Blood 02/04/2024 9:38 PM BOTTOM FILLER 02/04/2024 11:21 PM BOTTOM FILLER Carin Granados MD LAB BLOOD ORDERABLES Tete l Result Performing Organization Address [facility] Co de Phone Number [facility] of [employer] [place], [place] [id number] * (ABNORMAL) Basic metabolic panel (02/04/2024 9:38 PM BOTTOM FILLER) [facility] Sodium 137 135 - 145 mmol/L Potassium, pl 5.9(H) 3.3 - 4.9 mmol/L [facility] Chloride 103 97 - 110 mmol/L [facility] CO2 28 22 - 32 mmol/L [facility] Anion gap 6 2 - 15 mmol/L [facility] BUN 35(H) 6 - 25 mg/dL [facility] Creatinine 1.10 0.60 - 1.10 mg/dL [facility] Glucose 92 70 - 199 mg/dL [facility] Comment: Interpretive Data Fasting glucose >/= 126 [...] 2022. Calcium 8.5 8.5 - 10.3 mg/dL [facility] Blood 02/04/2024 9:38 PM BOTTOM FILLER 02/04/2024 11:21 PM BOTTOM FILLER us Carin Granados MD LAB BLOOD ORDERABLES Tete l Result Performing Organization Address City/[facility]/ZIP Co de Phone Number [facility] [address] [place] [address] * POCT glucose (02/04/2024 9:04 PM BOTTOM FILLER) [facility] Glucose, POC 105 70 - 199 mg/dL Blood 02/04/2024 9:04 PM BOTTOM FILLER 02/04/2024 9:04 PM BOTTOM FILLER Carin Granados MD LAB POCT ORDERABLES - DEV ICE Final Result Performing Organization Address [facility]/ZIP Co de Phone Number [facility] Department [place] [address] * POCT glucose (02/04/2024 5:12 PM BOTTOM FILLER) Glucose, POC 108 70 - 199 mg/dL Blood 02/04/2024 5:12 PM BOTTOM FILLER 02/04/2024 5:12 PM BOTTOM FILLER Carin Granados MD LAB POCT ORDERABLES - DEV ICE Final Result Performing Organization Address [facility] de Phone Number [facility] Department [place] [address] * POCT glucose (02/04/2024 11:56 AM BOTTOM FILLER) Glucose, POC 104 70 - 199 mg/dL Blood 02/04/2024 11:5 6 AM BOTTOM FILLER 02/04/2024 11:56 AM BOTTOM FILLER Carin Granados MD LAB POCT ORDERABLES - DEV ICE Final Result Performing Organization Address [facility] de Phone Number [facility] Department [place] [address] * (ABNORMAL) Hemoglobin and hematocrit (02/04/2024 11:16 AM BOTTOM FILLER) [facility] Hgb 7.8(L) 11.9 - 15.5 g/dL Hct 24.2(L) 35.6 - 45.5 % [facility] Blood 02/04/2024 11:1 6 AM BOTTOM FILLER 02/04/2024 12:15 PM BOTTOM FILLER Carin Granados MD LAB BLOOD ORDERABLES Tete l Result Performing Organization Address [facility] de Phone Number [facility] [place] [address] * MRI Sacrum Coccyx WO Contrast (02/04/2024 10:53 AM BOTTOM FILLER) Anatomical Region Laterality Modality Pelvis N/A Magnetic Resonan ce 02/04/2024 1:34 PM BOTTOM FILLER Impressions 02/04/2024 2:11 PM BOTTOM FILLER 1. 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 2. 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 Dictated by: Patric Schmitt D.O. The radiology attending physician has personally reviewed this study, and had reviewed and/or edited this written report and agrees with it. Electronically signed by: Jayme Page M.D. Narrative 02/04/2024 2:11 PM BOTTOM FILLER EXAMINATION: MRI SACRUM COCCYX WO CONTRAST HISTORY: [...] Result * Transfuse RBC (02/04/2024 7:44 AM BOTTOM FILLER) Blood Mariano Eid MD BLOOD TRANSFUSION ORDERABLES F inal Result Performing Organization Address [facility] Co de Phone Number [facility] Department [place] [address] * POCT glucose (02/04/2024 7:44 AM BOTTOM FILLER) [facility] Signature Glucose, POC 107 70 - 199 mg/dL Blood 02/04/2024 7:44 AM BOTTOM FILLER 02/04/2024 7:44 AM BOTTOM FILLER Carin Granados MD LAB POCT ORDERABLES - DEV ICE Final Result Performing Organization Address [facility] Co de Phone Number [facility] [address] [place] [address] * Type and screen (02/04/2024 1:27 AM BOTTOM FILLER) [facility] ABO Rh O Positive Ruiz, indirect Negative [facility] Blood 02/04/2024 1:27 AM BOTTOM FILLER 02/04/2024 2:20 AM BOTTOM FILLER Narrative [facility] - 02/04/2024 3:56 AM BOTTOM FILLER Has the patient had Daratumumab or Isatuximab in the past 6 months?->Unknown Mariano Eid MD LAB BLOOD BANK TEST ORDERABLES Final Result Performing Organization Address [facility] de Phone Number [facility] [place] [address] * Prepare RBC: 1 Units (02/04/2024 12:43 AM BOTTOM FILLER) [facility] Product code [id number] Unit Number [id number] [facility] Product Blood Type OPOS [facility] Dispense Status PRESUMED TRANSFUSED [facility] Blood 02/04/2024 12:4 3 AM BOTTOM FILLER 02/04/2024 12:43 AM BOTTOM FILLER Narrative [facility] - 02/04/2024 4:01 PM BOTTOM FILLER Are special requirements needed? (All products are leukoreduced and CMV- safe)- >No Date required:-[id number] LRRBC # of [id number] Reasons:-Hgb <7 g/dL} Mariano Eid MD BLOOD BANK PRODUCT ORDERABLES Final Result Performing Organization Address [facility] Co de Phone Number [facility] [email or web address] [address] * (ABNORMAL) eGFR (02/03/2024 9:45 PM BOTTOM FILLER) [facility] eGFR 58(L) >=60 mL/min/1. 73 m2 Comment: [...] last reviewed 2021. Blood 02/03/2024 9:45 PM BOTTOM FILLER 02/03/2024 10:44 PM BOTTOM FILLER us Meme Santana MD LAB BLOOD ORDERABLES Fin al Result [facility] Department [place] [address] * Differential, auto (02/03/2024 9:45 PM BOTTOM FILLER) Neutrophil abs 4.8 1.5 - 6.5 K/cumm Imm gran abs 0.0 0.0 - 0.1 K/cumm [facility] Lymphocyte abs 1.0 0.8 - 3.3 K/cumm [facility] Monocyte abs 0.8 0.2 - 0.8 K/cumm [facility] Eosinophil abs 0.2 0.0 - 0.5 K/cumm [facility] Basophil abs 0.0 0.0 - 0.1 K/cumm [facility] Neutrophil pct 70.6 % [facility] Comment: Interpretive Data Percent cell count reference ranges are not reported, since discordance with absolute values may lead to misinterpretation of CBC data. Current Interpretive Data was last revised on 2017. Imm gran pct 0.4 % [facility] Comment: Interpretive Data Percent cell count reference ranges are not reported, since discordance with absolute values may lead to misinterpretation of CBC data. Current Interpretive Data was last revised on 2017. Lymphocyte pct 14.7 % [facility] Comment: Interpretive Data Percent cell count reference ranges are not reported, since discordance with absolute values may lead to misinterpretation of CBC data. Current Interpretive Data was last revised on 2017. Monocyte pct 11.0 % [facility] Comment: Interpretive Data Percent cell count reference ranges are not reported, since discordance with absolute values may lead to misinterpretation of CBC data. Current Interpretive Data was last revised on 2017. Eosinophil pct 3.2 % [facility] Comment: Interpretive Data Percent cell count reference ranges are not reported, since discordance with absolute values may lead to misinterpretation of CBC data. Current Interpretive Data was last revised on 2017. Basophil pct 0.1 % [facility] Comment: Interpretive Data Percent cell count reference ranges are not reported, since discordance with absolute values may lead to misinterpretation of CBC data. Current Interpretive Data was last revised on 2017. Blood 02/03/2024 9:45 PM BOTTOM FILLER 02/03/2024 10:44 PM BOTTOM FILLER us Meme Santana MD LAB BLOOD ORDERABLES Fin al Result [facility] Department [place] [address] * (ABNORMAL) CBC with auto differential (02/03/2024 9:45 PM BOTTOM FILLER) WBC 6.8 3.8 - 9.9 K/cumm Hgb 6.7(L) 11.9 - 15.5 g/dL [facility] Hct 21.5(L) 35.6 - 45.5 % [facility] Plt 194 150 - 400 K/cumm [facility] MPV 10.3 9.1 - 12.3 fL [facility] RBC 2.56(L) 3.90 - 5.20 M/cumm [facility] MCV 84.0 81.3 - 96.4 fL [facility] MCH 26.2(L) 27.1 - 33.3 pg [facility] MCHC 31.2(L) 32.3 - 35.7 g/dL [facility] RDW CV 14.2 11.1 - 14.9 % [facility] RDW SD 43.0 35.7 - 48.1 fL [facility] NRBC abs 0.00 0.00 - 0.01 K/cumm [facility] Blood 02/03/2024 9:45 PM BOTTOM FILLER 02/03/2024 10:44 PM BOTTOM FILLER Carin Granados MD LAB BLOOD ORDERABLES Tete l Result [facility] [place] [address] * Phosphorus (02/03/2024 9:45 PM BOTTOM FILLER) Phosphorus, pl 3.6 2.3 - 4.5 mg/dL Blood 02/03/2024 9:45 PM BOTTOM FILLER 02/03/2024 10:44 PM BOTTOM FILLER Carin Granados MD LAB BLOOD ORDERABLES Tete l Result Performing Organization Address City/[facility]/ZIP Co de Phone Number [facility] [place] [address] * (ABNORMAL) Magnesium (02/03/2024 9:45 PM BOTTOM FILLER) Magnesium 2.9(H) 1.4 - 2.5 mg/dL Blood 02/03/2024 9:45 PM BOTTOM FILLER 02/03/2024 10:44 PM BOTTOM FILLER Carin Granados MD LAB BLOOD ORDERABLES Tete l Result [facility] [place] [address] * (ABNORMAL) Hepatic function panel (02/03/2024 9:45 PM BOTTOM FILLER) [facility] Bilirubin, total 0.6 0.1 - 1.2 mg/dL Bilirubin, direct <0.2 0.1 - 0.3 mg/dL [facility] Comment:Reviewed Protein, pl 6.1(L) 6.5 - 8.5 g/dL [facility] Albumin 2.4(L) 3.5 - 5.0 g/dL [facility] Alk phos 228(H) 40 - 130 Units/L [facility] ALT 16 7 - 45 Units/L [facility] AST 36 10 - 45 Units/L [facility] Blood 02/03/2024 9:45 PM BOTTOM FILLER 02/03/2024 10:44 PM BOTTOM FILLER us Carin Granados MD LAB BLOOD ORDERABLES Tete l Result [facility] Department [place] [address] * (ABNORMAL) Basic metabolic panel (02/03/2024 9:45 PM BOTTOM FILLER) [facility] Sodium 139 135 - 145 mmol/L Potassium, pl 5.2(H) 3.3 - 4.9 mmol/L [facility] Chloride 104 97 - 110 mmol/L [facility] CO2 30 22 - 32 mmol/L [facility] Anion gap 5 2 - 15 mmol/L [facility] BUN 31(H) 6 - 25 mg/dL [facility] Creatinine 1.22(H) 0.60 - 1.10 mg/dL [facility] Glucose 170 70 - 199 mg/dL [facility] Comment: Interpretive Data Fasting glucose >/= 126 [...] 2022. Calcium 8.2(L) 8.5 - 10.3 mg/dL [facility] Blood 02/03/2024 9:45 PM BOTTOM FILLER 02/03/2024 10:44 PM BOTTOM FILLER Carin Granados MD LAB BLOOD ORDERABLES Tete l Result Performing Organization Address City/[facility]/ZIP Co de Phone Number [facility] [place] [place] [address] * POCT glucose (02/03/2024 9:39 PM BOTTOM FILLER) Glucose, POC 190 70 - 199 mg/dL Blood 02/03/2024 9:39 PM BOTTOM FILLER 02/03/2024 9:39 PM BOTTOM FILLER Carin Granados MD LAB POCT ORDERABLES - DEV ICE Final Result Performing Organization Address City/[facility] Co de Phone Number [facility] [place] [address] * POCT glucose (02/03/2024 5:47 PM BOTTOM FILLER) Glucose, POC 131 70 - 199 mg/dL Blood 02/03/2024 5:47 PM BOTTOM FILLER 02/03/2024 5:47 PM BOTTOM FILLER Carin Granados MD LAB POCT ORDERABLES - DEV ICE Final Result Performing Organization Address City/[facility] Co de Phone Number [facility] [place] [address] * POCT glucose (02/03/2024 2:37 PM BOTTOM FILLER) Glucose, POC 138 70 - 199 mg/dL Blood 02/03/2024 2:37 PM BOTTOM FILLER 02/03/2024 2:37 PM BOTTOM FILLER us Carin Granados MD LAB POCT ORDERABLES - DEV ICE Final Result [facility] [place] [address] * CT Abdomen Pelvis W Contrast (02/03/2024 10:03 AM BOTTOM FILLER) Anatomical Region Laterality Modality Body N/A Computed Tomogra phy 02/03/2024 10:5 0 AM BOTTOM FILLER Impressions 02/03/2024 12:25 PM BOTTOM FILLER 1. Improving left upper pole and left [...] Zeke Chris M.D. Narrative 02/03/2024 12:25 PM BOTTOM FILLER EXAMINATION: Computed tomography of the abdomen and [...] esult * POCT glucose (02/03/2024 9:24 AM BOTTOM FILLER) Glucose, POC 131 70 - 199 mg/dL Blood 02/03/2024 9:24 AM BOTTOM FILLER 02/03/2024 9:24 AM BOTTOM FILLER us Carin Granados MD LAB POCT ORDERABLES - DEV ICE Final Result Performing Organization Address City/[facility] Co de Phone Number [facility] [place] [address] * eGFR (02/02/2024 10:40 PM BOTTOM FILLER) Pathologist [facility] eGFR 75 >=60 mL/min/1. 73 m2 Comment: [...] reviewed 2021. Blood 02/02/2024 10:4 0 PM BOTTOM FILLER 02/03/2024 12:36 AM BOTTOM FILLER us Meme Santana MD LAB BLOOD ORDERABLES Fin al Result Performing Organization Address City/[facility]/ZIP Co de Phone Number [facility] Department [place] [address] * Differential, auto (02/02/2024 10:40 PM BOTTOM FILLER) Neutrophil abs 5.7 1.5 - 6.5 K/cumm Imm gran abs 0.0 0.0 - 0.1 K/cumm [facility] Lymphocyte abs 1.1 0.8 - 3.3 K/cumm [facility] Monocyte abs 0.8 0.2 - 0.8 K/cumm [facility] Eosinophil abs 0.3 0.0 - 0.5 K/cumm [facility] Basophil abs 0.0 0.0 - 0.1 K/cumm [facility] Neutrophil pct 71.1 % [facility] Comment: Interpretive Data Percent cell count reference ranges are not reported, since discordance with absolute values may lead to misinterpretation of CBC data. Current Interpretive Data was last revised on 2017. Imm gran pct 0.4 % [facility] Comment: Interpretive Data Percent cell count reference ranges are not reported, since discordance with absolute values may lead to misinterpretation of CBC data. Current Interpretive Data was last revised on 2017. Lymphocyte pct 14.1 % [facility] Comment: Interpretive Data Percent cell count reference ranges are not reported, since discordance with absolute values may lead to misinterpretation of CBC data. Current Interpretive Data was last revised on 2017. Monocyte pct 10.4 % [facility] Comment: Interpretive Data Percent cell count reference ranges are not reported, since discordance with absolute values may lead to misinterpretation of CBC data. Current Interpretive Data was last revised on 2017. Eosinophil pct 3.9 % [facility] Comment: Interpretive Data Percent cell count reference ranges are not reported, since discordance with absolute values may lead to misinterpretation of CBC data. Current Interpretive Data was last revised on 2017. Basophil pct 0.1 % [facility] Comment: Interpretive Data Percent cell count reference ranges are not reported, since discordance with absolute values may lead to misinterpretation of CBC data. Current Interpretive Data was last revised on 2017. Blood 02/02/2024 10:4 0 PM BOTTOM FILLER 02/03/2024 12:04 AM BOTTOM FILLER Meme Santana MD LAB BLOOD ORDERABLES Fin al Result Performing Organization Address [facility] de Phone Number [facility] Department [place] [address] * (ABNORMAL) CBC with auto differential (02/02/2024 10:40 PM BOTTOM FILLER) Pathologist [facility] WBC 8.0 3.8 - 9.9 K/cumm Hgb 7.2(L) 11.9 - 15.5 g/dL [facility] Hct 22.5(L) 35.6 - 45.5 % [facility] Plt 190 150 - 400 K/cumm [facility] MPV 10.3 9.1 - 12.3 fL [facility] RBC 2.72(L) 3.90 - 5.20 M/cumm [facility] MCV 82.7 81.3 - 96.4 fL [facility] MCH 26.5(L) 27.1 - 33.3 pg [facility] MCHC 32.0(L) 32.3 - 35.7 g/dL [facility] RDW CV 14.0 11.1 - 14.9 % [facility] RDW SD 42.1 35.7 - 48.1 fL [facility] NRBC abs 0.00 0.00 - 0.01 K/cumm [facility] Blood 02/02/2024 10:4 0 PM BOTTOM FILLER 02/03/2024 12:04 AM BOTTOM FILLER us Carin Granados MD LAB BLOOD ORDERABLES Tete palomino Result Performing Organization Address [facility] Co de Phone Number [facility] Department [place] [address] * Phosphorus (02/02/2024 10:40 PM BOTTOM FILLER) Pathologist [facility] Phosphorus, pl 2.8 2.3 - 4.5 mg/dL Blood 02/02/2024 10:4 0 PM BOTTOM FILLER 02/03/2024 12:36 AM BOTTOM FILLER us Carin Granados MD LAB BLOOD ORDERABLES Tete l Result [facility] Department [place] [address] * (ABNORMAL) Magnesium (02/02/2024 10:40 PM BOTTOM FILLER) [facility] Magnesium 2.6(H) 1.4 - 2.5 mg/dL Blood 02/02/2024 10:4 0 PM BOTTOM FILLER 02/03/2024 12:36 AM BOTTOM FILLER Carin Granados MD LAB BLOOD ORDERABLES Tete l Result Performing Organization Address [facility] Co de Phone Number [facility] [place] [address] * (ABNORMAL) Hepatic function panel (02/02/2024 10:40 PM BOTTOM FILLER) [facility] Bilirubin, total 0.7 0.1 - 1.2 mg/dL Bilirubin, direct 0.2 0.1 - 0.3 mg/dL [facility] Protein, pl 6.4(L) 6.5 - 8.5 g/dL [facility] Albumin 2.6(L) 3.5 - 5.0 g/dL [facility] Alk phos 241(H) 40 - 130 Units/L [facility] ALT 13 7 - 45 Units/L [facility] AST 35 10 - 45 Units/L [facility] Blood 02/02/2024 10:4 0 PM BOTTOM FILLER 02/03/2024 12:36 AM BOTTOM FILLER Carin Granados MD LAB BLOOD ORDERABLES Tete l Result Performing Organization Address City/[facility] Co de Phone Number [facility] [place] [address] * (ABNORMAL) Basic metabolic panel (02/02/2024 10:40 PM BOTTOM FILLER) Sodium 138 135 - 145 mmol/L Potassium, pl 5.0(H) 3.3 - 4.9 mmol/L [facility] Chloride 102 97 - 110 mmol/L [facility] CO2 30 22 - 32 mmol/L [facility] Anion gap 6 2 - 15 mmol/L [facility] BUN 26(H) 6 - 25 mg/dL [facility] Creatinine 0.99 0.60 - 1.10 mg/dL [facility] Glucose 135 70 - 199 mg/dL [facility] Comment: Interpretive Data Fasting glucose >/= 126 [...] 2022. Calcium 8.4(L) 8.5 - 10.3 mg/dL [facility] Blood 02/02/2024 10:4 0 PM BOTTOM FILLER 02/03/2024 12:36 AM BOTTOM FILLER us Carin Granados MD LAB BLOOD ORDERABLES Tete l Result Performing Organization Address City/[facility]/ZIP Co de Phone Number [facility] [address] [place] [address] * POCT glucose (02/02/2024 8:25 PM BOTTOM FILLER) Glucose, POC 173 70 - 199 mg/dL Blood 02/02/2024 8:25 PM BOTTOM FILLER 02/02/2024 8:25 PM BOTTOM FILLER Carin Granados MD LAB POCT ORDERABLES - DEV ICE Final Result Performing Organization Address City/[facility]/ZIP Co de Phone Number [facility] [place] [address] * (ABNORMAL) Hemoglobin and hematocrit (02/02/2024 5:56 PM BOTTOM FILLER) Hgb 7.6(L) 11.9 - 15.5 g/dL Hct 23.2(L) 35.6 - 45.5 % [facility] Blood 02/02/2024 5:56 PM BOTTOM FILLER 02/02/2024 6:12 PM BOTTOM FILLER us Carin Granados MD LAB BLOOD ORDERABLES Tete l Result [facility] [place] [address] * POCT glucose (02/02/2024 4:53 PM BOTTOM FILLER) Glucose, POC 172 70 - 199 mg/dL Blood 02/02/2024 4:53 PM BOTTOM FILLER 02/02/2024 4:53 PM BOTTOM FILLER Carin Granados MD LAB POCT ORDERABLES - DEV ICE Final Result [facility] [place] [address] * Transfuse RBC (02/02/2024 2:55 PM BOTTOM FILLER) Blood Carin Granados MD BLOOD TRANSFUSION ORDER[place] [address] * POCT glucose (02/02/2024 12:56 PM BOTTOM FILLER) Glucose, POC 162 70 - 199 mg/dL Blood 02/02/2024 12:5 6 PM BOTTOM FILLER 02/02/2024 12:56 PM BOTTOM FILLER Carin Granados MD LAB POCT ORDERABLES - DEV ICE Final Result Performing Organization Address City/[facility] Co de Phone Number [facility] [place] [address] * POCT glucose (02/02/2024 9:48 AM BOTTOM FILLER) Glucose, POC 126 70 - 199 mg/dL Blood 02/02/2024 9:48 AM BOTTOM FILLER 02/02/2024 9:48 AM BOTTOM FILLER Carin Granados MD LAB POCT ORDERABLES - DEV ICE Final Result Performing Organization Address [facility] de Phone Number [place] [address] * Hepatitis panel, acute Blood (01/27/2024 9:00 PM BOTTOM FILLER) Pathologist [facility] Hep A IgM Nonreactive Nonreactive Hep B core IgM Nonreactive Nonreactive [facility] Hep C Ab Nonreactive Nonreactive [facility] Comment:Antibodies to HCV no t detected. Does NOT exclude the possibility of recent exposure to HCV. Current interpretive data was last revised on 21 HepBsAg Nonreactive Nonreactive [facility] Blood 01/27/2024 9:00 PM BOTTOM FILLER 01/27/2024 9:44 PM BOTTOM FILLER Sheldon Duran MD LAB MICROBIOLOGY - GENERA L ORDERABLES Final Result Performing Organization Address [facility] Co de Phone Number [facility] [place] [address] * (ABNORMAL) Lipid panel (01/26/2024 11:33 PM BOTTOM FILLER) Pathologist [facility] Cholesterol 137 30 - 199 mg/dL Comment: [...] on 2017. Triglycerides 171(H) <=149 mg/dL [facility] Comment: Interpretive Data Ages < [...] on 2017. HDL 28(L) >=40 mg/dL [facility] Comment: Interpretive Data Ages < [...] 2017. LDL, calculated 79 <=129 mg/dL [facility] Comment: Interpretive Data Ages < [...] revised on 2023. Non-HDL Cholesterol 109 mg/dL [facility] Comment: Interpretive Data Ages < [...] last revised on 2017. Chol/HDL ratio 5 [facility] Blood 01/26/2024 11:3 3 PM BOTTOM FILLER 01/27/2024 12:31 AM BOTTOM FILLER Sheldon Duran MD LAB BLOOD ORDERABLES Tete palomino Result [facility] Department [place] [address] * (ABNORMAL) Hemoglobin A1c (12/01/2023 6:48 PM CDT) Hgb A1C 10.6(H) 4.0 - 5.6 % Estimated Average Glucose 258 mg/dL [facility] Comment: The ADA recommends reporting an estimated Average Glucose (eAG) with all Hemoglobin A1c results using the equation derived from a study of 507 normal and diabetic adults. Minority populations were underrepresented and children were not included. (Diabetes Care 31:7861-8964, 2008). The eAG is not equivalent to a fasting glucose. 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 Coli. Not eligible for review. Multiple wounds that require cultures for discontinuation. Kyler Child 02/02/2024 01/09/2024 01/09/2024 Insurance Advance Directives For more information, please contact: [phone] Documents on File Type Date Recorded Patient Social Media Analyst Expl anation ADVANCE DIRECTIVE 02/17/2024 11:22 AM POW ER OF INDEX EDITOR-MEDICAL ADVANCE DIRECTIVE 02/03/2024 2:17 PM MARLEN R OF INDEX EDITOR-MEDICAL * Full Code (Latest Code Status on [...] Agent Yadi Sanchez Sister [facility] Agent Care Teams Home Delivery Driver Relationship Specialty Start Date End Date Barbara Oliva MD [address] [place] [id number] PCP - General Gastroenterology 12/02/23 Miscellaneous, Not In File 01/03/24
--- OUTSIDE RECORDS SUMMARY | 2024-05-04 18:50 | XMS_ITS | Clinical Summary ---
Author Organization [facility] Address [address] [place] [address] Care Team Providers Care Technical Services Representative Name Role Phone Malika Campbell NETWORK OPERATIONS ANALYST-AIR VALUE TESTER Primary Care Provider [phone] Source Comments [facility],non-owned Affiliates and Associated Physician Practices is amultiple site organization consisting of ambulatory clinics and hospital sitesin [place], [place], [place] and [place]. This disclosure is being madepursuant to the Care Everywhere program and may not contain all information available regarding this patient. Last updated 17.[facility] Allergies Active Allergy Reactions Criticality Noted [...] Comments Blood Pressure 126/83 03/24/2022 4:09 PM PHYSICIAN AIDE Pulse 96 03/24/2022 4:09 PM PHYSICIAN AIDE Temperature 35.9 C (96.7 F) 03/24/2022 4:09 PM PHYSICIAN AIDE Respiratory Rate 18 03/24/2022 4:09 PM PHYSICIAN AIDE Oxygen Saturation 100% 03/24/2022 4:09 PM PHYSICIAN AIDE Inhaled Oxygen Concentration - - Weight 84.8 kg (187 lb) 04/09/2022 11:15 AM PHYSICIAN AIDE Height 170.2 cm (5' 7 ) 01/07/2022 [...] Management General On track( 023 11:22 AM PHYSICIAN AIDE) David Shook, RN Note: Expected end date: Interventions: Take all medications as prescribed Let your doctor know right away about any changes in your medications Make sure to request a refill of your medication at least one week prior to your last dose Procedures Procedure Name Priority Date/Time Associated Diagnosis Comments COMPREHENSIVE METABOLIC PANEL STAT 03/24/2022 4:51 PM PHYSICIAN AIDE HEMOGLOBIN A1C Routine 09/14/2020 3:05 AM CDT HEPATITIS C ANTIBODY Routine 12/12/2019 9:51 AM CDT Cirrhosis of liver without ascites, unspecified hepatic cirrhosis type (HCC) from Last 3 Months or Most Recently Relevant to Health Maintenance Results * (ABNORMAL) COMPREHENSIVE METABOLIC PANEL (03/24/2022 4:51 PM PHYSICIAN AIDE) BUN 10 7 - 26 mg/dL 03/24/2022 5:42 PM [facility] Creatinine 0.55(L) 0.56 - 0.96 mg/dL [...] 8.4 - 10.2 mg/dL 03/24/2022 5:42 PM PHYSICIAN AIDE [facility] Protein Total 7.2 6.0 - 8.3 [...] Unknown Venipuncture / Unknown 03/24/2022 4:51 PM PHYSICIAN AIDE 03/24/2022 5:03 PM PHYSICIAN AIDE Deonna Mukherjee PA-C LAB - CHEMISTRY OR DERABLES Performing Organization Address [facility]/State/[facility] Co de Phone Number [facility] [address] [place] [address], [facility] [phone] * (ABNORMAL) HEMOGLOBIN A1C (09/14/2020 3:05 AM CDT) Hemoglobin A1c 7.0(H) 4.2 - 5.6 % 09/14/2020 4:08 AM CDT -[facility] Estimated Average Glucose 154 mg/dL 09/14/2020 4:08 AM CDT [facility] Blood BLOOD SPECIMEN / Unknown Lab Venipuncture / Unknown 09/14/2020 3:05 AM CDT 09/14/2020 3:37 AM CDT Narrative [facility] - 09/14/2020 4:08 AM CDT The following cutoff levels are recommended by [employer] [employer]. A1c > 6.5% : considered [...] Pink MD LAB - CHEMISTRY ORD ERABLES [facility] [address] [place] [address] * HEPATITIS C ANTIBODY (12/12/2019 9:51 AM CDT) [facility] Hepatitis C Antibody Non-react abdirahman Srivastava-regissel vance 12/12/2019 12:07 PM CDT [facility] Comment:Hepatitis C Antibody screen indicates no [...] Jaquez ANKIT-ERIC LAB - CHEMI STRY ORDERABLES [facility] [address] [place] [address], [facility] [phone] from Last 3 Months or Most Recently Relevant to Health Maintenance Advance Directives * Full Code (Latest Code Status on File) Date Activated Date Inactivated Comments 09/13/2020 4:58 AM 09/14/2020 9:57 AM Care Teams Technical Services Representative Relationship Specialty Start Date End Date Malika Campbell APRN-CNP [address] [place] [phone] PCP - General 04/09/22
--- OUTSIDE RECORDS SUMMARY | 2024-05-04 18:50 | XMS_ITS | Referral Summary ---
Author Organization [facility] Address [address] [place] [address] Care Team Providers Care Survey Crew Chief Name Role Phone Malika Campbell CASING MACHINE OPERATOR-MACHINIST GENERAL Primary Care Provider [phone] Source Comments [facility],non-owned Affiliates and Associated Physician Practices is amultiple site organization consisting of ambulatory clinics and hospital sitesin [place], [place], [place] and [place]. This disclosure is being madepursuant to the Care Everywhere program and may not contain all information available regarding this patient. Last updated 17.[facility] Allergies Active Allergy Reactions Criticality Noted [...] Comments Blood Pressure 126/83 03/24/2022 4:09 PM SANE NURSE Pulse 96 03/24/2022 4:09 PM SANE NURSE Temperature 35.9 C (96.7 F) 03/24/2022 4:09 PM SANE NURSE Respiratory Rate 18 03/24/2022 4:09 PM SANE NURSE Oxygen Saturation 100% 03/24/2022 4:09 PM SANE NURSE Inhaled Oxygen Concentration - - Weight 84.8 kg (187 lb) 04/09/2022 11:15 AM SANE NURSE Height 170.2 cm (5' 7 ) 01/07/2022 [...] Management General On track( 023 11:22 AM SANE NURSE) No David Meng, RN Note: Expected end date: Interventions: Take all medications as prescribed Let your doctor know right away about any changes in your medications Make sure to request a refill of your medication at least one week prior to your last dose Procedures Procedure Name Priority Date/Time Associated Diagnosis Comments COMPREHENSIVE METABOLIC PANEL STAT 03/24/2022 4:51 PM SANE NURSE HEMOGLOBIN A1C Routine 09/14/2020 3:05 AM CDT HEPATITIS C ANTIBODY Routine 12/12/2019 9:51 AM CDT Cirrhosis of liver without ascites, unspecified hepatic cirrhosis type (HCC) from Last 3 Months or Most Recently Relevant to Health Maintenance Results * (ABNORMAL) COMPREHENSIVE METABOLIC PANEL (03/24/2022 4:51 PM [facility]) BUN 10 7 - 26 mg/dL 03/24/2022 5:42 PM [facility] Creatinine 0.55(L) 0.56 - 0.96 mg/dL 03/24/2022 5:42 PM [facility] Sodium 134(L) 136 - 145 mmol/L 03/24/2022 5:42 PM [facility] Potassium 3.8 3.5 - 4.5 mmol/L 03/24/2022 5:42 PM [facility] Chloride 94(L) 98 - 107 mmol/L 03/24/2022 5:42 PM [facility] CO2 25 22 - 29 mmol/L 03/24/2022 5:42 PM [facility] Glucose 606(HH) 70 - 115 mg/dL 03/24/2022 5:42 PM [facility] Calcium 9.0 8.4 - 10.2 mg/dL 03/24/2022 5:42 PM [facility] Protein Total 7.2 6.0 - 8.3 g/dL 03/24/2022 5:42 PM [facility] Albumin 3.5 3.4 - 5.0 g/dL 03/24/2022 5:42 PM [facility] Bilirubin Total 0.7 0.2 - 1.2 mg/dL 03/24/2022 5:42 PM [facility] Alkaline Phosphatase 127 40 - 150 U/L 03/24/2022 5:42 PM [facility] ALT 19 5 - 55 U/L 03/24/2022 5:42 PM [facility] AST 19 5 - 34 U/L 03/24/2022 5:42 PM [facility] Anion Gap 19(H) 8 - 18 03/24/2022 5:42 PM [facility] BUN/Creatinine Ratio 18 7 - 23 03/24/2022 5:42 PM [facility] Osmolality Calculated 305(H) 270 - 300 mOsm/kg 03/24/2022 5:42 PM [facility] Albumin/Globulin Ratio 0.9(L) 1.1 - 2.3 03/24/2022 5:42 PM [facility] eGFR by CKD-EPI >90 >=90 mL/min/1.7 3 m2 03/24/2022 5:42 PM [facility] Blood BLOOD SPECIMEN / Unknown Venipuncture / Unknown 03/24/2022 4:51 PM SANE NURSE 03/24/2022 5:03 PM SANE NURSE Deonna Mukherjee PA-C LAB - CHEMISTRY OR DERABLES [facility] [address] [place] [address], [facility] [phone] * (ABNORMAL) HEMOGLOBIN A1C (09/14/2020 3:05 AM CDT) Hemoglobin A1c 7.0(H) 4.2 - 5.6 % 09/14/2020 4:08 AM CDT [facility] Estimated Average Glucose 154 mg/dL 09/14/2020 4:08 AM CDT -[facility] Blood BLOOD SPECIMEN / Unknown Lab Venipuncture / Unknown 09/14/2020 3:05 AM CDT 09/14/2020 3:37 AM CDT Narrative -[facility] - 09/14/2020 4:08 AM CDT The following cutoff levels are recommended by [place] [employer]. A1c > 6.5% : considered [...] Pink MD LAB - CHEMISTRY ORD ERABLES [facility] [address] * HEPATITIS C ANTIBODY (12/12/2019 9:51 AM CDT) Hepatitis C Antibody Non-react abdirahman Non-reac tive 12/12/2019 12:[address] [facility] Comment:Hepatitis C Antibody screen indicates [...] CDT 12/12/2019 11:02 AM CDT Abby Jaquez CASING MACHINE OPERATOR-MACHINIST GENERAL LAB - CHEMI STRY ORDERABLES [facility] [address] [place] [address], [facility] [phone] from Last 3 Months or Most Recently Relevant to Health Maintenance Advance Directives * Full Code (Latest Code Status on File) Date Activated Date Inactivated Comments 09/13/2020 4:58 AM 09/14/2020 9:57 AM Care Teams Survey Crew Chief Relationship Specialty Start Date End Date Malika Campbell, CASING MACHINE OPERATOR-MACHINIST GENERAL [address] [place] [phone] PCP - General 04/09/22
[2024-05-04 19:13] LABS: Glucose Point of Care 207 mg/dl (65-105)
--- OUTSIDE RECORDS SUMMARY | 2024-05-04 20:29 | XMS_ITS | Clinical Summary ---
Author Organization [facility], formerly 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 No [facility] Problem Noted Date Diagnosed Date Acute blood loss anemia 02/02/2024 Assessment & Plan (02/12/2024 12:56 PM TEAM PRIMARY CARE PHYSICIAN): Present on admit, f/u hemoglobin was 6.6 [...] 01/27/2024 Assessment & Plan (02/12/2024 12:58 PM TEAM PRIMARY CARE PHYSICIAN): INR 1.39 on admission. History of Doan cirrhosis. Other contibutors may be DOAC vs nutritional. Treated with vitamin K PO 01/26-01/28 F/u INR 1.51 in setting of cirrhosis. Hx chronic LUE DVT. Lovenox held due to anemia. No recent spontaneous bleeding noted. Monitor coags PRN Cirrhosis 01/27/2024 Overview (02/08/2024): History of Doan cirrhosis as per patient. Patient follows with [facility] liver doctor, last seen couple of years ago. -CT11/5: changes of cirrhosis with stigmata of portal hypertension including splenomegaly, recanalized periumbilical vein, small volume ascites, and mild diffuse anasarca. -Liver enzyme elevation could be from DOAN cirrhosis, ongoing antibiotics. -Hepatitis panel negative Assessment & Plan (02/12/2024 12:46 PM TEAM PRIMARY CARE PHYSICIAN): History of Doan cirrhosis as per patient. Patient follows with [facility] liver doctor, last seen couple of [...] 01/26/2024 Assessment & Plan (02/12/2024 12:57 PM TEAM PRIMARY CARE PHYSICIAN): Known chronic DVT in left upper extremity distal brachial vein noted 12/2023, home Lovenox held due to recurring anemia requiring blood transfusions and did not tolerate therapeutic AC. Received recent Vit K supplementation this admit. Acute osteomyelitis of sacrum (CMS/HCC) 01/26/20 Assessment & Plan (02/10/2024 1:17 PM TEAM PRIMARY CARE PHYSICIAN): Initial encounter, likely has been evolving since [...] needed. Assessment & Plan (02/12/2024 12:59 PM TEAM PRIMARY CARE PHYSICIAN): -Prior history: General surgery consulted 01/09 at [...] NGTD. 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 Fax weekly Labs (CBC, CMP) To: [facility] ([phone]) Complication associated with peripherally inserted central catheter 01/17/2024 Renal abscess 01/17/2024 Assessment & Plan (02/12/2024 12:45 PM TEAM PRIMARY CARE PHYSICIAN): POA, associated with pyelonephritis, as above. Resolved. Assessment & Plan (02/10/2024 1:14 PM TEAM PRIMARY CARE PHYSICIAN): 37 y.o. female with PMH including cirrhosis of the liver, DM2, R foot OM with partial amputation who was transferred to [facility] 01/25 for pyelonephritis and renal abscess. [...] with wound vac placement and transferred to [facility]. 01/25 admission to [facility]. Repeat CT A/P shows stable/slight decrease [...] 01/03/2024 Assessment & Plan (02/12/2024 12:45 PM TEAM PRIMARY CARE PHYSICIAN): Initially admitted to OSH with prolonged hospitalization s/p G-tube on 12/26/2023 for TFs related to prior dysphagia. 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 -Patient sees hepatology for cirrhosis at [facility]. F/u as directed. Severe malnutrition 01/01/2024 Liver transplant failure (CMS/HCC) 12/30/2023 Other pneumonia, unspecified organism 12/30/2023 Critical illness myopathy 12/25/2023 Elevated liver enzymes 12/21/2023 Abnormal EKG 12/20/2023 Esophageal varices with blee ding in diseases classified elsewhere 12/11/2023 Acute respiratory failure with hypoxia ([facility]) 12/10/2023 Acute upper GI hemorrhage 12/10/2023 Aspiration pneumonia of both lower lobes due to gastric secretions 12/10/2023 Bacteremia 12/10/2023 Elevated troponin 12/10/2023 High anion gap metabolic acidosis 12/10/2023 Osteomyelitis of left lower extremity ([facility]) 12/10/2023 Other specified abnormal findings of blood chemi stry 12/10/2023 Pneumonitis due to inhalation of food and vomit ([facility]) 12/10/2023 Melena 12/09/2023 Closed fracture of proximal end of right humerus with routine healing 12/05/2023 NSTEMI (non-ST elevated myocardial infarction) ( [facility]) 12/05/2023 Diabetic foot infection ([facility]) 12/05/2023 Acute hematogenous osteomyelitis of left foot Traumatic closed displaced f racture of surgical neck of right humerus, with routine healing, subsequent encounter 12/01/2023 Assessment & Plan (02/12/2024 12:42 PM TEAM PRIMARY CARE PHYSICIAN): Hx of Right shoulder fx in 11/2023, [...] 12/01/2023 Assessment & Plan (02/10/2024 12:56 PM TEAM PRIMARY CARE PHYSICIAN): -Pt with ICU admission 12/08 with enterobacter bacteremia and UTI. Represented to OSH 01/[address] c/f pyelonephritis and multiple renal abscesses to L kidney. She was started on Meropenem. UA later grew ESBL e coli and enterobacter aerogenes. Transferred to [facility] for IR evaluation - BCx 01/08 [...] 09/13/2020 Assessment & Plan (02/12/2024 12:44 PM TEAM PRIMARY CARE PHYSICIAN): Continue OSH insulin regimen: Lantus 8 Qpm + SSI, carb consistent diet. Continue to monitor serial accuchecks A1c previously 10.6, (poor OP control) and not checked this admit. Improved glucose control this admit. Anticipate close OP monitoring and follow up for goal care with underlying cirrhosis. NELIDA (acute kidney injury) 09/13/2020 Assessment & Plan (02/12/2024 12:57 PM TEAM PRIMARY CARE PHYSICIAN): Associated with hyperkalemia. Likely from decreased p.o. 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 Uric acid normal. ESR CRP elevated Examination benign, would hold off on MRI for now Diarrhea 01/27/2024 02/05/2024 Assessment & Plan (01/27/2024 4:24 PM TEAM PRIMARY CARE PHYSICIAN): Questionable diarrhea on admission to OSH. Patient reports normal bowel movements. 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 Received 1 unit earlier in OSH admission. Hgb 8-9. - Hgb >7, blood consent in chart. Encounters Date Type Department Care Team Description 04/20/2024 10:00 AM TEAM PRIMARY CARE PHYSICIAN Office Visit [facility] Radiology, Interventional Radiology [facility] [address] [facility] [address] [phone] Sophie Herman PA Dysphagia, oropharyngeal (Primary Dx); Gastrostomy tube in place (HCC) 04/19/2024 Telephone [facility] Radiology, Interventional Radiology [address] [facility] [address] [phone] Iker Neal 04/19/2024 Telephone [facility] Radiology, Interventional Radiology [address] [facility] [address] [phone] Luma Bach Scheduling Appointments 04/13/2024 Telephone [facility] Radiology, Interventional Radiology [address] [facility] [address] [phone] Jessica Beltran, RN Appointment 03/26/2024 Telephone [facility] [address] [place] [address] 4th Floor [address] [place] [address] Yuni Balderrama 02/27/2024 9:50 AM TEAM PRIMARY CARE PHYSICIAN Office Visit [facility] [address] [place] [address] Floor [address] [place] [phone] Traumatic closed displaced fracture of surgical neck of right humerus, with routine healing, subsequent encounter (Primary Dx) 02/23/2024 Telephone Radiology [address] [address] Naila Sheehan, RN 02/14/2024 Telephone [address] [place] [address] Loni Aragon, RN 02/14/2024 Orders Only Radiology [address] [place] [address] Loni Aragon, RN 02/13/2024 Treatment [facility] [address] [address] Andie Byrne MD 02/07/2024 Orders Only [address] [phone] Jorge Carolina MD PhD 02/06/2024 Orders Only [facility] Neuro Interventional Radiology [address] [place] [phone] Shelley Bal, KILLIAN 01/26/2024 9:52 PM TEAM PRIMARY CARE PHYSICIAN - 02/13/2024 1:30 PM TEAM PRIMARY CARE PHYSICIAN Hospital Encounter [address] [place] [address] Néstor Blevins MD [place], MD Roger Rubalcava, [...] uit: Not Asked; Counseling Given: Not Answered [facility] Utilities Answer Date Recorded In the past 12 months has th [employer], gas, oil, or water [employer] threatened to shut off services in your [...] often do you attend chur ch or episcopalian services? 1 to 4 times per year 01/29/2024 Do you belong to any clubs o r organizations such as congregational groups, unions, fraternal or athletic groups, or [...] any time in the past 12 [facility], were you homeless or living in [...] on file Legal Sex Female 5:35 AM TEAM PRIMARY CARE PHYSICIAN Gender Identity Not on file Sexual Orientation Not on file Obstetrics History Last Filed Vital Signs Vital Sign Reading Time Taken Comments Blood Pressure 116/80 02/13/2024 10:42 AM TEAM PRIMARY CARE PHYSICIAN Pulse 106 02/13/2024 10:42 AM TEAM PRIMARY CARE PHYSICIAN Temperature 37 C (98.6 F) 02/13/2024 5:38 AM TEAM PRIMARY CARE PHYSICIAN Respiratory Rate 18 02/13/2024 5:38 AM TEAM PRIMARY CARE PHYSICIAN Oxygen Saturation 95% 02/13/2024 10:42 AM TEAM PRIMARY CARE PHYSICIAN Inhaled Oxygen Concentration - - Weight 72.6 kg (160 lb) 04/20/2024 10:04 AM TEAM PRIMARY CARE PHYSICIAN Height 170.2 cm (5' 7 ) 04/20/2024 10:04 AM TEAM PRIMARY CARE PHYSICIAN Body Mass Index 25.06 04/20/2024 10:04 AM TEAM PRIMARY CARE PHYSICIAN Plan of Treatment Health Maintenance Due Date [...] history exists Medical Devices Implanted Type Area Education Counselor Device Identifier Shelf Expiration Date Model / Serial / Lot Musculoskeletal Transplant [id number] Mm Allograft Frozen Graft Bone Fibula Shaft [id number] - [id number] - [id number] Implanted:Qty: 1 on 01/31/2024 by Monika Gilbert MD at [facility] Bone Right: Humerus Musculoskeletal Transplant [id number] 07/06/2027 [id number] / [id number] / Synthes Lcp Combi Philos [id number] 5 Hole Shaft Lock Compression 241.903 - [id number] Implanted:Qty: 1 on 01/31/2024 by Monika Gilbert MD at [facility] Plate Right: Humerus Synthes 241.903 / / Synthes 3.5mm 2.9mm 44mm Self Tap Lock Stardrive Conical Head T15 Full 212.134 - [id number] Implanted:Qty: 1 on 01/31/2024 by Monika Gilbert MD at [facility] Screw Right: Humerus Synthes 212.134 / / Synthes 3.5mm 6mm 60mm 2.5mm Self Tap Small Hexagonal Socket Low Profile 204.860 - [id number] Implanted:Qty: 1 on 01/31/2024 by Monika Gilbert MD at [facility] Screw Right: Humerus Synthes 204.860 / / Synthes 3.5mm 6mm 32mm 2.5mm Self Tap Small Hexagonal Socket Low Profile 204.832 - [id number] Implanted:Qty: 2 on 01/31/2024 by Monika Gilbert MD at [facility] Screw Right: Humerus Synthes 204.832 / / Synthes 3.5mm 54mm Self Tap Lock St[employer]rive T15 Full Thread Screw Bone 02.212.054 - [id number] Implanted:Qty: 4 on 01/31/2024 by Monika Gilbert MD at [facility] Screw Right: Humerus Synthes 02.212.0 54 / / Synthes 3.5mm 2.9mm 32mm Self Tap Lock [employer] Conical Head T15 Full 212.112 - [id number] Implanted:Qty: 2 on 01/31/2024 by Monika Gilbert MD at [facility] Screw Right: Humerus Synthes 212.112 / / Synthes 3.5mm 2.9mm 46mm Self Tap Lock [employer]rive Conical Head T15 Full 212.136 - [id number] Implanted:Qty: 1 on 01/31/2024 by Monika Gilbert MD at [facility] Screw Right: Humerus Synthes I 212.136 / / Synthes 3.5mm 2.9mm 42mm Self Tap Lock [employer]rive Conical Head Full Thread 212.118 - [id number] Implanted:Qty: 1 on 01/31/2024 by Monika Gilbert MD at [facility] Screw Right: Humerus Synthes I 212.118 / / Synthes 3.5mm 2.9mm 48mm Self Tap Lock Fix Angle Low Profile Pelvis Full 212.120 - [id number] Implanted:Qty: 1 on 01/31/2024 by Monika Gilbert MD at [facility] Screw Right: Humerus Synthes I 212.120 / / Synthes 3.5mm 2.9mm 55mm Self Tap Lock St[employer]rive Conical Head Pelvis Full 212.123 - [id number] Implanted:Qty: 1 on 01/31/2024 by Monika Gilbert MD at [facility] Screw Right: Humerus Synthes 212.123 / / Explanted Type Area Education Counselor Device Identifier Shelf Expiration Date Model / Serial / Lot Synthes 3.5mm 6mm 30mm 2.5mm Self Tap Small Hexagonal Socket Low Profile 204.830 - [id number] Explanted:Qty: 1 on 01/31/2024 by Monika Gilbert MD at [facility] Screw Right: Humerus Synthes 204.830 / / Procedures Procedure Name Priority Date/Time Associated Diagnosis Comments POCT GLUCOSE DEVICE Routine 02/13/2024 11:47 AM TEAM PRIMARY CARE PHYSICIAN POCT GLUCOSE DEVICE Routine 02/13/2024 7 :56 AM TEAM PRIMARY CARE PHYSICIAN EGFR Routine 02/12/2024 11:57 PM TEAM PRIMARY CARE PHYSICIAN DIFFERENTIAL AUTO Routine 02/12/2024 11:57 PM TEAM PRIMARY CARE PHYSICIAN HEPATIC FUNCTION PANEL Routine 11:57 PM TEAM PRIMARY CARE PHYSICIAN PHOSPHORUS Routine 02/12/2024 11:57 PM TEAM PRIMARY CARE PHYSICIAN MAGNESIUM Routine 02/12/2024 11:57 PM TEAM PRIMARY CARE PHYSICIAN BASIC METABOLIC PANEL Routine 02/12/2024 11:57 PM TEAM PRIMARY CARE PHYSICIAN CBC WITH AUTO DIFFERENTIAL Routine 02/12/2024 11:57 PM TEAM PRIMARY CARE PHYSICIAN POCT GLUCOSE DEVICE Routine 02/12/2024 8 :27 PM TEAM PRIMARY CARE PHYSICIAN POCT GLUCOSE DEVICE Routine 02/12/2024 5 :13 PM TEAM PRIMARY CARE PHYSICIAN POCT GLUCOSE DEVICE Routine 02/12/2024 12:27 PM TEAM PRIMARY CARE PHYSICIAN POCT GLUCOSE DEVICE Routine 02/12/2024 9 :21 AM TEAM PRIMARY CARE PHYSICIAN POCT GLUCOSE DEVICE Routine 02/12/2024 8 :02 AM TEAM PRIMARY CARE PHYSICIAN EGFR Routine 02/11/2024 11:54 PM TEAM PRIMARY CARE PHYSICIAN DIFFERENTIAL AUTO Routine 02/11/2024 11:54 PM TEAM PRIMARY CARE PHYSICIAN HEPATIC FUNCTION PANEL Routine 11:54 PM TEAM PRIMARY CARE PHYSICIAN PHOSPHORUS Routine 02/11/2024 11:54 PM TEAM PRIMARY CARE PHYSICIAN MAGNESIUM Routine 02/11/2024 11:54 PM TEAM PRIMARY CARE PHYSICIAN BASIC METABOLIC PANEL Routine 02/11/2024 11:54 PM TEAM PRIMARY CARE PHYSICIAN CBC WITH AUTO DIFFERENTIAL Routine 02/11/2024 11:54 PM TEAM PRIMARY CARE PHYSICIAN POCT GLUCOSE DEVICE Routine 02/11/2024 8 :20 PM TEAM PRIMARY CARE PHYSICIAN POCT GLUCOSE DEVICE Routine 02/11/2024 4 :42 PM TEAM PRIMARY CARE PHYSICIAN POCT GLUCOSE DEVICE Routine 02/11/2024 7 :33 AM TEAM PRIMARY CARE PHYSICIAN B RYDER C3 Routine 02/11/2024 12:30 AM TEAM PRIMARY CARE PHYSICIAN B RYDER IGG Routine 02/11/2024 12:30 AM TEAM PRIMARY CARE PHYSICIAN ANTIBODY IDENTIFICATION Routine 02/10/20 10:02 PM TEAM PRIMARY CARE PHYSICIAN TRANSFUSION REACTION EVALUATION Timed 02/10/2024 8:51 PM TEAM PRIMARY CARE PHYSICIAN DIRECT ANTIGLOBULIN TEST Timed 02/10/2024 8:51 PM TEAM PRIMARY CARE PHYSICIAN EGFR Routine 02/10/2024 8:51 PM TEAM PRIMARY CARE PHYSICIAN DIFFERENTIAL AUTO Routine 02/10/2024 8:5 1 PM TEAM PRIMARY CARE PHYSICIAN TYPE AND SCREEN Timed 02/10/2024 8:51 PM TEAM PRIMARY CARE PHYSICIAN HEPATIC FUNCTION PANEL Routine 8:51 PM TEAM PRIMARY CARE PHYSICIAN PHOSPHORUS Routine 02/10/2024 8:51 PM TEAM PRIMARY CARE PHYSICIAN MAGNESIUM Routine 02/10/2024 8:51 PM TEAM PRIMARY CARE PHYSICIAN BASIC METABOLIC PANEL Routine 02/10/2024 8:51 PM TEAM PRIMARY CARE PHYSICIAN CBC WITH AUTO DIFFERENTIAL Routine 02/10/2024 8:51 PM TEAM PRIMARY CARE PHYSICIAN POCT GLUCOSE DEVICE Routine 02/10/2024 8 :28 PM TEAM PRIMARY CARE PHYSICIAN POCT GLUCOSE DEVICE Routine 02/10/2024 5 :13 PM TEAM PRIMARY CARE PHYSICIAN CENTRAL LINE PLACEMENT > 5 YEARS IP Routine 02/10/2024 3:32 PM TEAM PRIMARY CARE PHYSICIAN POCT GLUCOSE DEVICE Routine 02/10/2024 12:31 PM TEAM PRIMARY CARE PHYSICIAN POCT GLUCOSE DEVICE Routine 02/10/2024 8 :15 AM TEAM PRIMARY CARE PHYSICIAN EGFR Routine 02/09/2024 9:52 PM TEAM PRIMARY CARE PHYSICIAN DIFFERENTIAL AUTO Routine 02/09/2024 9:5 2 PM TEAM PRIMARY CARE PHYSICIAN VANCOMYCIN LEVEL RANDOM Routine 02/09/20 9:52 PM TEAM PRIMARY CARE PHYSICIAN HEPATIC FUNCTION PANEL Routine 9:52 PM TEAM PRIMARY CARE PHYSICIAN PHOSPHORUS Routine 02/09/2024 9:52 PM TEAM PRIMARY CARE PHYSICIAN MAGNESIUM Routine 02/09/2024 9:52 PM TEAM PRIMARY CARE PHYSICIAN BASIC METABOLIC PANEL Routine 02/09/2024 9:52 PM TEAM PRIMARY CARE PHYSICIAN CBC WITH AUTO DIFFERENTIAL Routine 02/09/2024 9:52 PM TEAM PRIMARY CARE PHYSICIAN POCT GLUCOSE DEVICE Routine 02/09/2024 8 :32 PM TEAM PRIMARY CARE PHYSICIAN POCT GLUCOSE DEVICE Routine 02/09/2024 5 :55 PM TEAM PRIMARY CARE PHYSICIAN URINALYSIS, MICROSCOPIC ONLY STAT 02/09/2024 5:09 PM TEAM PRIMARY CARE PHYSICIAN URINE CULTURE STAT 02/09/2024 5:09 PM TEAM PRIMARY CARE PHYSICIAN URINALYSIS AND REFLEX TO MICROSCOPIC AND CULTURE STAT 02/09/2024 5:09 PM TEAM PRIMARY CARE PHYSICIAN XR ABDOMEN AP 1 VIEW ED Urgent/IP Urgent 02/09/2024 4:09 PM TEAM PRIMARY CARE PHYSICIAN POCT GLUCOSE DEVICE Routine 02/09/2024 12:51 PM TEAM PRIMARY CARE PHYSICIAN POCT GLUCOSE DEVICE Routine 02/09/2024 7 :40 AM TEAM PRIMARY CARE PHYSICIAN EGFR Timed 02/09/2024 12:07 AM TEAM PRIMARY CARE PHYSICIAN CREATININE Timed 02/09/2024 12:07 AM TEAM PRIMARY CARE PHYSICIAN VANCOMYCIN LEVEL RANDOM Routine 02/08/20 24 9:50 PM TEAM PRIMARY CARE PHYSICIAN EGFR Routine 02/08/2024 9:50 PM TEAM PRIMARY CARE PHYSICIAN DIFFERENTIAL AUTO Routine 02/08/2024 9:5 0 PM TEAM PRIMARY CARE PHYSICIAN PROTIME-INR Routine 02/08/2024 9:50 PM TEAM PRIMARY CARE PHYSICIAN HEPATIC FUNCTION PANEL Routine 9:50 PM TEAM PRIMARY CARE PHYSICIAN PHOSPHORUS Routine 02/08/2024 9:50 PM TEAM PRIMARY CARE PHYSICIAN MAGNESIUM Routine 02/08/2024 9:50 PM TEAM PRIMARY CARE PHYSICIAN BASIC METABOLIC PANEL Routine 02/08/2024 9:50 PM TEAM PRIMARY CARE PHYSICIAN CBC WITH AUTO DIFFERENTIAL Routine 02/08/2024 9:50 PM TEAM PRIMARY CARE PHYSICIAN POCT GLUCOSE DEVICE Routine 02/08/2024 8 :31 PM TEAM PRIMARY CARE PHYSICIAN POCT GLUCOSE DEVICE Routine 02/08/2024 5 :56 PM TEAM PRIMARY CARE PHYSICIAN VANCOMYCIN LEVEL TROUGH Timed 02/08/20 1:55 PM TEAM PRIMARY CARE PHYSICIAN POCT GLUCOSE DEVICE Routine 02/08/2024 11:40 AM TEAM PRIMARY CARE PHYSICIAN POCT GLUCOSE DEVICE Routine 02/08/2024 8 :20 AM TEAM PRIMARY CARE PHYSICIAN EGFR Routine 02/07/2024 9:30 PM TEAM PRIMARY CARE PHYSICIAN DIFFERENTIAL AUTO Routine 02/07/2024 9:3 0 PM TEAM PRIMARY CARE PHYSICIAN HEPATIC FUNCTION PANEL Routine 9:30 PM TEAM PRIMARY CARE PHYSICIAN PHOSPHORUS Routine 02/07/2024 9:30 PM TEAM PRIMARY CARE PHYSICIAN MAGNESIUM Routine 02/07/2024 9:30 PM TEAM PRIMARY CARE PHYSICIAN BASIC METABOLIC PANEL Routine 02/07/2024 9:30 PM TEAM PRIMARY CARE PHYSICIAN CBC WITH AUTO DIFFERENTIAL Routine 02/07/2024 9:30 PM TEAM PRIMARY CARE PHYSICIAN POCT GLUCOSE DEVICE Routine 02/07/2024 8 :20 PM TEAM PRIMARY CARE PHYSICIAN POCT GLUCOSE DEVICE Routine 02/07/2024 4 :41 PM TEAM PRIMARY CARE PHYSICIAN POCT GLUCOSE DEVICE Routine 02/07/2024 12:22 PM TEAM PRIMARY CARE PHYSICIAN MYCOLOGY (FUNGAL) CULTURE Routine 02/07/2024 11:30 AM TEAM PRIMARY CARE PHYSICIAN TISSUE AEROBIC AND ANAEROBIC CULTURE AND GRAM STAIN Routine 02/07/2024 11:30 AM TEAM PRIMARY CARE PHYSICIAN MYCOBACTERIOLOGY AFB CULTURE AND ACID-FAST STAIN Routine 02/07/2024 11:30 AM TEAM PRIMARY CARE PHYSICIAN MYCOLOGY (FUNGAL) CULTURE AND STAIN Routine 02/07/2024 11:30 AM TEAM PRIMARY CARE PHYSICIAN MYCOBACTERIOLOGY AFB CULTURE AND ACID-FAST STAIN Routine 02/07/2024 11:30 AM TEAM PRIMARY CARE PHYSICIAN AEROBIC AND ANAEROBIC CULTURE AND GRAM STAIN Routine 02/07/2024 11:30 AM TEAM PRIMARY CARE PHYSICIAN BIOPSY DEEP BONE IP Routine 02/07/2024 11:29 AM TEAM PRIMARY CARE PHYSICIAN SURGICAL PATHOLOGY Routine 02/07/2024 11:15 AM TEAM PRIMARY CARE PHYSICIAN POCT GLUCOSE DEVICE Routine 02/07/2024 8 :36 AM TEAM PRIMARY CARE PHYSICIAN POCT GLUCOSE DEVICE Routine 02/07/2024 7 :46 AM TEAM PRIMARY CARE PHYSICIAN VANCOMYCIN LEVEL TROUGH Timed 02/07/20 2:37 AM TEAM PRIMARY CARE PHYSICIAN EGFR Routine 02/06/2024 9:36 PM TEAM PRIMARY CARE PHYSICIAN DIFFERENTIAL AUTO Routine 02/06/2024 9:3 6 PM TEAM PRIMARY CARE PHYSICIAN HEPATIC FUNCTION PANEL Routine 4 9:36 PM TEAM PRIMARY CARE PHYSICIAN PHOSPHORUS Routine 02/06/2024 9:36 PM TEAM PRIMARY CARE PHYSICIAN MAGNESIUM Routine 02/06/2024 9:36 PM TEAM PRIMARY CARE PHYSICIAN BASIC METABOLIC PANEL Routine 02/06/2024 9:36 PM TEAM PRIMARY CARE PHYSICIAN CBC WITH AUTO DIFFERENTIAL Routine 02/06/2024 9:36 PM TEAM PRIMARY CARE PHYSICIAN POCT GLUCOSE DEVICE Routine 02/06/2024 9 :32 PM TEAM PRIMARY CARE PHYSICIAN POCT GLUCOSE DEVICE Routine 02/06/2024 5 :33 PM TEAM PRIMARY CARE PHYSICIAN POCT GLUCOSE DEVICE Routine 02/06/2024 11:52 AM TEAM PRIMARY CARE PHYSICIAN POCT GLUCOSE DEVICE Routine 02/06/2024 8 :16 AM TEAM PRIMARY CARE PHYSICIAN TROPONIN I HIGH-SENSITIVITY SERIES (BASELINE, 2HR, 4HR, 6HR) Timed 02/06/2024 6:53 AM TEAM PRIMARY CARE PHYSICIAN EGFR Routine 02/05/2024 10:32 PM TEAM PRIMARY CARE PHYSICIAN DIFFERENTIAL AUTO Routine 02/05/2024 10:32 PM TEAM PRIMARY CARE PHYSICIAN HEPATIC FUNCTION PANEL Routine 10:32 PM TEAM PRIMARY CARE PHYSICIAN PHOSPHORUS Routine 02/05/2024 10:32 PM TEAM PRIMARY CARE PHYSICIAN MAGNESIUM Routine 02/05/2024 10:32 PM TEAM PRIMARY CARE PHYSICIAN BASIC METABOLIC PANEL Routine 02/05/2024 10:32 PM TEAM PRIMARY CARE PHYSICIAN CBC WITH AUTO DIFFERENTIAL Routine 02/05/2024 10:32 PM TEAM PRIMARY CARE PHYSICIAN POCT GLUCOSE DEVICE Routine 02/05/2024 9 :13 PM TEAM PRIMARY CARE PHYSICIAN POCT GLUCOSE DEVICE Routine 02/05/2024 5 :38 PM TEAM PRIMARY CARE PHYSICIAN BLOOD CULTURE Routine 02/05/2024 3:25 PM TEAM PRIMARY CARE PHYSICIAN BLOOD CULTURE Routine 02/05/2024 3:25 PM TEAM PRIMARY CARE PHYSICIAN POCT GLUCOSE DEVICE Routine 02/05/2024 2 :10 PM TEAM PRIMARY CARE PHYSICIAN POCT GLUCOSE DEVICE Routine 02/05/2024 9 :18 AM TEAM PRIMARY CARE PHYSICIAN WOUND CARE Routine 02/05/2024 8:16 AM TEAM PRIMARY CARE PHYSICIAN Pressure injury of sacral region, stage 4 (HCC) POTASSIUM, WHOLE BLOOD Timed 8:08 AM TEAM PRIMARY CARE PHYSICIAN POTASSIUM LEVEL Timed 02/05/2024 7:45 AM TEAM PRIMARY CARE PHYSICIAN POCT GLUCOSE DEVICE Routine 02/05/2024 6 :00 AM TEAM PRIMARY CARE PHYSICIAN POCT GLUCOSE DEVICE Routine 02/05/2024 5:04 AM TEAM PRIMARY CARE PHYSICIAN POCT GLUCOSE DEVICE Routine 02/05/2024 4 :11 AM TEAM PRIMARY CARE PHYSICIAN ECG 12-LEAD STAT 02/05/2024 3:22 AM TEAM PRIMARY CARE PHYSICIAN EGFR Routine 02/04/2024 9:38 PM TEAM PRIMARY CARE PHYSICIAN DIFFERENTIAL AUTO Routine 02/04/2024 9:3 8 PM TEAM PRIMARY CARE PHYSICIAN HEPATIC FUNCTION PANEL Routine 9:38 PM TEAM PRIMARY CARE PHYSICIAN PHOSPHORUS Routine 02/04/2024 9:38 PM TEAM PRIMARY CARE PHYSICIAN MAGNESIUM Routine 02/04/2024 9:38 PM TEAM PRIMARY CARE PHYSICIAN BASIC METABOLIC PANEL Routine 02/04/2024 9:38 PM TEAM PRIMARY CARE PHYSICIAN CBC WITH AUTO DIFFERENTIAL Routine 02/04/2024 9:38 PM TEAM PRIMARY CARE PHYSICIAN POCT GLUCOSE DEVICE Routine 02/04/2024 9 :04 PM TEAM PRIMARY CARE PHYSICIAN POCT GLUCOSE DEVICE Routine 02/04/2024 5:12 PM TEAM PRIMARY CARE PHYSICIAN POCT GLUCOSE DEVICE Routine 02/04/2024 11:56 AM TEAM PRIMARY CARE PHYSICIAN HEMOGLOBIN AND HEMATOCRIT Timed 02/04/2024 11:16 AM TEAM PRIMARY CARE PHYSICIAN MRI SACRUM COCCYX WO CONTRAST ED Urgent/IP Urgent 02/04/2024 10:53 AM TEAM PRIMARY CARE PHYSICIAN POCT GLUCOSE DEVICE Routine 02/04/2024 7 :44 AM TEAM PRIMARY CARE PHYSICIAN TRANSFUSE RED BLOOD CELLS Timed 02/04/2024 5:50 AM TEAM PRIMARY CARE PHYSICIAN TYPE AND SCREEN Timed 02/04/2024 1:27 AM TEAM PRIMARY CARE PHYSICIAN PREPARE RBC Timed 02/04/2024 12:43 AM TEAM PRIMARY CARE PHYSICIAN EGFR Routine 02/03/2024 9:45 PM TEAM PRIMARY CARE PHYSICIAN DIFFERENTIAL AUTO Routine 02/03/2024 9:4 5 PM TEAM PRIMARY CARE PHYSICIAN HEPATIC FUNCTION PANEL Routine 9:45 PM TEAM PRIMARY CARE PHYSICIAN PHOSPHORUS Routine 02/03/2024 9:45 PM TEAM PRIMARY CARE PHYSICIAN MAGNESIUM Routine 02/03/2024 9:45 PM TEAM PRIMARY CARE PHYSICIAN BASIC METABOLIC PANEL Routine 02/03/2024 9:45 PM TEAM PRIMARY CARE PHYSICIAN CBC WITH AUTO DIFFERENTIAL Routine 02/03/2024 9:45 PM TEAM PRIMARY CARE PHYSICIAN POCT GLUCOSE DEVICE Routine 02/03/2024 9 :39 PM TEAM PRIMARY CARE PHYSICIAN POCT GLUCOSE DEVICE Routine 02/03/2024 5 :47 PM TEAM PRIMARY CARE PHYSICIAN POCT GLUCOSE DEVICE Routine 02/03/2024 2 :37 PM TEAM PRIMARY CARE PHYSICIAN CT ABDOMEN PELVIS W CONTRAST IP Routine 02/03/2024 10:03 AM TEAM PRIMARY CARE PHYSICIAN POCT GLUCOSE DEVICE Routine 02/03/2024 9 :24 AM TEAM PRIMARY CARE PHYSICIAN EGFR Routine 02/02/2024 10:40 PM TEAM PRIMARY CARE PHYSICIAN DIFFERENTIAL AUTO Routine 02/02/2024 10:40 PM TEAM PRIMARY CARE PHYSICIAN HEPATIC FUNCTION PANEL Routine 10:40 PM TEAM PRIMARY CARE PHYSICIAN PHOSPHORUS Routine 02/02/2024 10:40 PM TEAM PRIMARY CARE PHYSICIAN MAGNESIUM Routine 02/02/2024 10:40 PM TEAM PRIMARY CARE PHYSICIAN BASIC METABOLIC PANEL Routine 02/02/2024 10:40 PM TEAM PRIMARY CARE PHYSICIAN CBC WITH AUTO DIFFERENTIAL Routine 02/02/2024 10:40 PM TEAM PRIMARY CARE PHYSICIAN POCT GLUCOSE DEVICE Routine 02/02/2024 8 :25 PM TEAM PRIMARY CARE PHYSICIAN HEMOGLOBIN AND HEMATOCRIT Timed 02/02/2024 5:56 PM TEAM PRIMARY CARE PHYSICIAN POCT GLUCOSE DEVICE Routine 02/02/2024 4 :53 PM TEAM PRIMARY CARE PHYSICIAN POCT GLUCOSE DEVICE Routine 02/02/2024 12:56 PM TEAM PRIMARY CARE PHYSICIAN TRANSFUSE RED BLOOD CELLS Timed 02/02/2024 11:07 AM TEAM PRIMARY CARE PHYSICIAN POCT GLUCOSE DEVICE Routine 02/02/2024 9 :48 AM TEAM PRIMARY CARE PHYSICIAN HEPATITIS PANEL, ACUTE Routine 9:00 PM TEAM PRIMARY CARE PHYSICIAN LIPID PANEL Routine 01/26/2024 11:33 PM TEAM PRIMARY CARE PHYSICIAN HEMOGLOBIN A1C Routine 12/01/2023 6:48 PM CDT from Last 3 Months or Most Recently Relevant to Health Maintenance Results * POCT glucose (02/13/2024 11:47 AM TEAM PRIMARY CARE PHYSICIAN) Glucose, POC 122 70 - 199 mg/dL Blood 02/13/2024 11:4 7 AM TEAM PRIMARY CARE PHYSICIAN 02/13/2024 11:47 AM TEAM PRIMARY CARE PHYSICIAN Kassidy Pinzon MD LAB POCT ORDERABLES - DEVIC E Final Result Performing Organization Address City/[facility]/ZIP Co de Phone Number [facility] Department [email or web address] [address] * POCT glucose (02/13/2024 7:56 AM TEAM PRIMARY CARE PHYSICIAN) Glucose, POC 95 70 - 199 mg/dL Blood 02/13/2024 7:56 AM TEAM PRIMARY CARE PHYSICIAN 02/13/2024 7:56 AM TEAM PRIMARY CARE PHYSICIAN Kassidy Pinzon MD LAB POCT ORDERABLES - DEVIC E Final Result Performing Organization Address City/[facility] Co de Phone Number [facility] Department [email or web address] [address] * eGFR (02/12/2024 11:57 PM TEAM PRIMARY CARE PHYSICIAN) eGFR 79 >=60 mL/min/1. 73 m2 Comment: [...] reviewed 2021. Blood 02/12/2024 11:5 7 PM TEAM PRIMARY CARE PHYSICIAN 02/13/2024 12:29 AM TEAM PRIMARY CARE PHYSICIAN us Carin Granados MD LAB BLOOD ORDERABLES Tete palomino Result [facility] Department [place] [address] * Differential, auto (02/12/2024 11:57 PM TEAM PRIMARY CARE PHYSICIAN) Neutrophil abs 4.2 1.5 - 6.5 K/cumm Imm gran abs 0.0 0.0 - 0.1 K/cumm [facility] Lymphocyte abs 1.2 0.8 - 3.3 K/cumm [facility] Monocyte abs 0.6 0.2 - 0.8 K/cumm [facility] Eosinophil abs 0.2 0.0 - 0.5 K/cumm [facility] Basophil abs 0.0 0.0 - 0.1 K/cumm [facility] Neutrophil pct 67.3 % [facility] Comment: Interpretive Data Percent cell count reference ranges are not reported, since discordance with absolute values may lead to misinterpretation of CBC data. Current Interpretive Data was last revised on 2017. Imm gran pct 0.3 % [facility] Comment: Interpretive Data Percent cell count reference ranges are not reported, since discordance with absolute values may lead to misinterpretation of CBC data. Current Interpretive Data was last revised on 2017. Lymphocyte pct 19.2 % [facility] Comment: Interpretive Data Percent cell count reference ranges are not reported, since discordance with absolute values may lead to misinterpretation of CBC data. Current Interpretive Data was last revised on 2017. Monocyte pct 9.4 % [facility] Comment: Interpretive Data Percent cell count reference ranges are not reported, since discordance with absolute values may lead to misinterpretation of CBC data. Current Interpretive Data was last revised on 2017. Eosinophil pct 3.5 % [facility] Comment: Interpretive Data Percent cell count reference ranges are not reported, since discordance with absolute values may lead to misinterpretation of CBC data. Current Interpretive Data was last revised on 2017. Basophil pct 0.3 % [facility] Comment: Interpretive Data Percent cell count reference ranges are not reported, since discordance with absolute values may lead to misinterpretation of CBC data. Current Interpretive Data was last revised on 2017. Blood 02/12/2024 11:5 7 PM TEAM PRIMARY CARE PHYSICIAN 02/13/2024 12:29 AM TEAM PRIMARY CARE PHYSICIAN us Carin Granados MD LAB BLOOD ORDERABLES Tete palomino Result [facility] Department [place] [address] * (ABNORMAL) CBC with auto differential (02/12/2024 11:57 PM TEAM PRIMARY CARE PHYSICIAN) WBC 6.3 3.8 - 9.9 K/cumm Hgb 7.2(L) 11.9 - 15.5 g/dL [facility] Hct 23.1(L) 35.6 - 45.5 % [facility] Plt 208 150 - 400 K/cumm [facility] MPV 9.7 9.1 - 12.3 fL [facility] RBC 2.77(L) 3.90 - 5.20 M/cumm [facility] MCV 83.4 81.3 - 96.4 fL [facility] MCH 26.0(L) 27.1 - 33.3 pg [facility] MCHC 31.2(L) 32.3 - 35.7 g/dL [facility] RDW CV 14.4 11.1 - 14.9 % [facility] RDW SD 43.3 35.7 - 48.1 fL [facility] NRBC abs 0.00 0.00 - 0.01 K/cumm [facility] Blood 02/12/2024 11:5 7 PM TEAM PRIMARY CARE PHYSICIAN 02/13/2024 12:29 AM TEAM PRIMARY CARE PHYSICIAN Carin Granados MD LAB BLOOD ORDERABLES Tete l Result Performing Organization Address City/[facility]/ZIP Co de Phone Number [facility] [email or web address] [address] * Phosphorus (02/12/2024 11:57 PM TEAM PRIMARY CARE PHYSICIAN) Phosphorus, pl 2.8 2.3 - 4.5 mg/dL Blood 02/12/2024 11:5 7 PM TEAM PRIMARY CARE PHYSICIAN 02/13/2024 12:29 AM TEAM PRIMARY CARE PHYSICIAN Carin Granados MD LAB BLOOD ORDERABLES Tete l Result Performing Organization Address City/[facility] Co de Phone Number [facility] [email or web address] [address] * Magnesium (02/12/2024 11:57 PM TEAM PRIMARY CARE PHYSICIAN) Magnesium 2.2 1.4 - 2.5 mg/dL Blood 02/12/2024 11:5 7 PM TEAM PRIMARY CARE PHYSICIAN 02/13/2024 12:29 AM TEAM PRIMARY CARE PHYSICIAN Carin Granados MD LAB BLOOD ORDERABLES Tete l Result Performing Organization Address City/[facility]/ZIP Co de Phone Number [facility] [email or web address] [address] * (ABNORMAL) Hepatic function panel (02/12/2024 11:57 PM TEAM PRIMARY CARE PHYSICIAN) Bilirubin, total 0.5 0.1 - 1.2 mg/dL Bilirubin, direct 0.2 0.1 - 0.3 mg/dL [facility] Protein, pl 7.2 6.5 - 8.5 g/dL [facility] Albumin 3.2(L) 3.5 - 5.0 g/dL [facility] Alk phos 330(H) 40 - 130 Units/L [facility] ALT 29 7 - 45 Units/L [facility] AST 68(H) 10 - 45 Units/L [facility] Blood 02/12/2024 11:5 7 PM TEAM PRIMARY CARE PHYSICIAN 02/13/2024 12:29 AM TEAM PRIMARY CARE PHYSICIAN Carin Granados MD LAB BLOOD ORDERABLES Tete l Result [facility] Department [place] [address] * Basic metabolic panel (02/12/2024 11:57 PM TEAM PRIMARY CARE PHYSICIAN) Sodium 140 135 - 145 mmol/L Potassium, pl 3.9 3.3 - 4.9 mmol/L [facility] Chloride 100 97 - 110 mmol/L [facility] CO2 30 22 - 32 mmol/L [facility] Anion gap 10 2 - 15 mmol/L [facility] BUN 24 6 - 25 mg/dL [facility] Creatinine 0.95 0.60 - 1.10 mg/dL [facility] Glucose 165 70 - 199 mg/dL [facility] Comment: Interpretive Data Fasting glucose [...] Calcium 8.9 8.5 - 10.3 mg/dL [facility] Blood 02/12/2024 11:5 7 PM TEAM PRIMARY CARE PHYSICIAN 02/13/2024 12:29 AM TEAM PRIMARY CARE PHYSICIAN us Carin Granados MD LAB BLOOD ORDERABLES Tete l Result Performing Organization Address City/[facility] Co de Phone Number [facility] [email or web address] [address] * POCT glucose (02/12/2024 8:27 PM TEAM PRIMARY CARE PHYSICIAN) Glucose, POC 167 70 - 199 mg/dL Blood 02/12/2024 8:27 PM TEAM PRIMARY CARE PHYSICIAN 02/12/2024 8:27 PM TEAM PRIMARY CARE PHYSICIAN us Kassidy Pinzon MD LAB POCT ORDERABLES - DEVIC E Final Result Performing Organization Address [facility] de Phone Number [facility] [email or web address] [address] * POCT glucose (02/12/2024 5:13 PM TEAM PRIMARY CARE PHYSICIAN) Glucose, POC 167 70 - 199 mg/dL Blood 02/12/2024 5:13 PM TEAM PRIMARY CARE PHYSICIAN 02/12/2024 5:13 PM TEAM PRIMARY CARE PHYSICIAN us Kassidy Pinzon MD LAB POCT ORDERABLES - DEVIC E Final Result Performing Organization Address [facility] Co de Phone Number [facility] [email or web address] [address] * POCT glucose (02/12/2024 12:27 PM TEAM PRIMARY CARE PHYSICIAN) Glucose, POC 139 70 - 199 mg/dL Blood 02/12/2024 12:2 7 PM TEAM PRIMARY CARE PHYSICIAN 02/12/2024 12:27 PM TEAM PRIMARY CARE PHYSICIAN Kassidy Pinzon MD LAB POCT ORDERABLES - DEVIC E Final Result Performing Organization Address City/[facility] Co de Phone Number [facility] [place] [address] * POCT glucose (02/12/2024 9:21 AM TEAM PRIMARY CARE PHYSICIAN) Glucose, POC 95 70 - 199 mg/dL Blood 02/12/2024 9:21 AM TEAM PRIMARY CARE PHYSICIAN 02/12/2024 9:21 AM TEAM PRIMARY CARE PHYSICIAN Kassidy Pinzon MD LAB POCT ORDERABLES - DEVIC E Final Result Performing Organization Address City/[facility] Co de Phone Number [facility] [email or web address] [address] * POCT glucose (02/12/2024 8:02 AM TEAM PRIMARY CARE PHYSICIAN) Glucose, POC 91 70 - 199 mg/dL Blood 02/12/2024 8:02 AM TEAM PRIMARY CARE PHYSICIAN 02/12/2024 8:02 AM TEAM PRIMARY CARE PHYSICIAN Kassidy Pinzon MD LAB POCT ORDERABLES - DEVIC E Final Result Performing Organization Address City/[facility] [place] [address] * eGFR (02/11/2024 11:54 PM TEAM PRIMARY CARE PHYSICIAN) eGFR 65 >=60 mL/min/1. 73 m2 Comment: [...] reviewed 2021. Blood 02/11/2024 11:5 4 PM TEAM PRIMARY CARE PHYSICIAN 02/12/2024 12:43 AM TEAM PRIMARY CARE PHYSICIAN us Carin Granados MD LAB BLOOD ORDERABLES Tete palomino Result [facility] Department [place] [address] * Differential, auto (02/11/2024 11:54 PM TEAM PRIMARY CARE PHYSICIAN) Neutrophil abs 4.3 1.5 - 6.5 K/cumm Imm gran abs 0.0 0.0 - 0.1 K/cumm [facility] Lymphocyte abs 1.3 0.8 - 3.3 K/cumm [facility] Monocyte abs 0.7 0.2 - 0.8 K/cumm [facility] Eosinophil abs 0.2 0.0 - 0.5 K/cumm [facility] Basophil abs 0.0 0.0 - 0.1 K/cumm [facility] Neutrophil pct 66.6 % [facility] Comment: Interpretive Data Percent cell count reference ranges are not reported, since discordance with absolute values may lead to misinterpretation of CBC data. Current Interpretive Data was last revised on 2017. Imm gran pct 0.3 % [facility] Comment: Interpretive Data Percent cell count reference ranges are not reported, since discordance with absolute values may lead to misinterpretation of CBC data. Current Interpretive Data was last revised on 2017. Lymphocyte pct 19.4 % [facility] Comment: Interpretive Data Percent cell count reference ranges are not reported, since discordance with absolute values may lead to misinterpretation of CBC data. Current Interpretive Data was last revised on 2017. Monocyte pct 10.1 % [facility] Comment: Interpretive Data Percent cell count reference ranges are not reported, since discordance with absolute values may lead to misinterpretation of CBC data. Current Interpretive Data was last revised on 2017. Eosinophil pct 3.1 % [facility] Comment: Interpretive Data Percent cell count reference ranges are not reported, since discordance with absolute values may lead to misinterpretation of CBC data. Current Interpretive Data was last revised on 2017. Basophil pct 0.5 % [facility] Comment: Interpretive Data Percent cell count reference ranges are not reported, since discordance with absolute values may lead to misinterpretation of CBC data. Current Interpretive Data was last revised on 2017. Blood 02/11/2024 11:5 4 PM TEAM PRIMARY CARE PHYSICIAN 02/12/2024 12:42 AM TEAM PRIMARY CARE PHYSICIAN us Carin Granados MD LAB BLOOD ORDERABLES Tete palomino Result [facility] Department [place] [address] * (ABNORMAL) CBC with auto differential (02/11/2024 11:54 PM TEAM PRIMARY CARE PHYSICIAN) Pathologist [facility] WBC 6.4 3.8 - 9.9 K/cumm Hgb 7.4(L) 11.9 - 15.5 g/dL [facility] Hct 24.0(L) 35.6 - 45.5 % [facility] Plt 230 150 - 400 K/cumm [facility] MPV 9.8 9.1 - 12.3 fL [facility] RBC 2.88(L) 3.90 - 5.20 M/cumm [facility] MCV 83.3 81.3 - 96.4 fL [facility] MCH 25.7(L) 27.1 - 33.3 pg [facility] MCHC 30.8(L) 32.3 - 35.7 g/dL [facility] RDW CV 14.3 11.1 - 14.9 % [facility] RDW SD 42.9 35.7 - 48.1 fL [facility] NRBC abs 0.00 0.00 - 0.01 K/cumm [facility] Blood 02/11/2024 11:5 4 PM TEAM PRIMARY CARE PHYSICIAN 02/12/2024 12:42 AM TEAM PRIMARY CARE PHYSICIAN Carin Granados MD LAB BLOOD ORDERABLES Tete l Result Performing Organization Address [facility] Co de Phone Number [facility] [place] [address] * Phosphorus (02/11/2024 11:54 PM TEAM PRIMARY CARE PHYSICIAN) Phosphorus, pl 2.9 2.3 - 4.5 mg/dL Blood 02/11/2024 11:5 4 PM TEAM PRIMARY CARE PHYSICIAN 02/12/2024 12:43 AM TEAM PRIMARY CARE PHYSICIAN Result [facility] Carin Granados MD LAB BLOOD ORDERABLES Tete l Result Performing Organization Address [facility] Co de Phone Number [facility] [place] [address] * Magnesium (02/11/2024 11:54 PM TEAM PRIMARY CARE PHYSICIAN) Magnesium 2.5 1.4 - 2.5 mg/dL Blood 02/11/2024 11:5 4 PM TEAM PRIMARY CARE PHYSICIAN 02/12/2024 12:43 AM TEAM PRIMARY CARE PHYSICIAN Result [facility] Carin Granados MD LAB BLOOD ORDERABLES Tete l Result Performing Organization Address [facility] de Phone Number [facility] [place] [address] * (ABNORMAL) Hepatic function panel (02/11/2024 11:54 PM TEAM PRIMARY CARE PHYSICIAN) Bilirubin, total 0.6 0.1 - 1.2 mg/dL Bilirubin, direct 0.2 0.1 - 0.3 mg/dL [facility] Protein, pl 7.3 6.5 - 8.5 g/dL [facility] Albumin 3.1(L) 3.5 - 5.0 g/dL [facility] Alk phos 317(H) 40 - 130 Units/L [facility] ALT 27 7 - 45 Units/L [facility] AST 69(H) 10 - 45 Units/L [facility] Blood 02/11/2024 11:5 4 PM TEAM PRIMARY CARE PHYSICIAN 02/12/2024 12:43 AM TEAM PRIMARY CARE PHYSICIAN Carin Granados MD LAB BLOOD ORDERABLES Tete l Result [facility] Department [place] [address] * (ABNORMAL) Basic metabolic panel (02/11/2024 11:54 PM TEAM PRIMARY CARE PHYSICIAN) Pathologist [facility] Sodium 138 135 - 145 mmol/L Potassium, pl 4.5 3.3 - 4.9 mmol/L [facility] Chloride 99 97 - 110 mmol/L [facility] CO2 31 22 - 32 mmol/L [facility] Anion gap 8 2 - 15 mmol/L [facility] BUN 26(H) 6 - 25 mg/dL [facility] Creatinine 1.11(H) 0.60 - 1.10 mg/dL [facility] Glucose 96 70 - 199 mg/dL [facility] Comment: Interpretive Data Fasting glucose [...] Calcium 9.0 8.5 - 10.3 mg/dL [facility] Blood 02/11/2024 11:5 4 PM TEAM PRIMARY CARE PHYSICIAN 02/12/2024 12:43 AM TEAM PRIMARY CARE PHYSICIAN Carin Granados MD LAB BLOOD ORDERABLES Tete l Result Performing Organization Address [facility]/ZIP Co de Phone Number [facility] [place] [address] * POCT glucose (02/11/2024 8:20 PM TEAM PRIMARY CARE PHYSICIAN) Glucose, POC 114 70 - 199 mg/dL Blood 02/11/2024 8:20 PM TEAM PRIMARY CARE PHYSICIAN 02/11/2024 8:20 PM TEAM PRIMARY CARE PHYSICIAN us Kassidy Pinzon MD LAB POCT ORDERABLES - DEVIC E Final Result Performing Organization Address City/[facility] [place] [address] * POCT glucose (02/11/2024 4:42 PM TEAM PRIMARY CARE PHYSICIAN) [facility] Glucose, POC 106 70 - 199 mg/dL Blood 02/11/2024 4:42 PM TEAM PRIMARY CARE PHYSICIAN 02/11/2024 4:42 PM TEAM PRIMARY CARE PHYSICIAN us Kassidy Pinzon MD LAB POCT ORDERABLES - DEVIC E Final Result Performing Organization Address City/[facility]/ZIP Co de Phone Number [facility] [place] [address] * POCT glucose (02/11/2024 7:33 AM TEAM PRIMARY CARE PHYSICIAN) [facility] Glucose, POC 99 70 - 199 mg/dL Blood 02/11/2024 7:33 AM TEAM PRIMARY CARE PHYSICIAN 02/11/2024 7:33 AM TEAM PRIMARY CARE PHYSICIAN us Kassidy Pinzon MD LAB POCT ORDERABLES - DEVIC E Final Result Performing Organization Address City/[facility]/ZIP Co de Phone Number [facility] [place] [address] * B RYDER IGG (02/11/2024 12:30 AM TEAM PRIMARY CARE PHYSICIAN) [facility] Direct Ruiz IgG Negative Blood 02/11/2024 12:3 0 AM TEAM PRIMARY CARE PHYSICIAN 02/11/2024 12:30 AM TEAM PRIMARY CARE PHYSICIAN Kassidy Pinzon MD LAB BODY FLUIDS AND STOOLS ORDERABLES Final Result Performing Organization Address [facility] de Phone Number [facility] [email or web address] [address] * (ABNORMAL) B RYDER C3 (02/11/2024 12:30 AM TEAM PRIMARY CARE PHYSICIAN) [facility] Direct Ruiz C3 Positive(A ) Blood 02/11/2024 12:3 0 AM TEAM PRIMARY CARE PHYSICIAN 02/11/2024 12:30 AM TEAM PRIMARY CARE PHYSICIAN Kassidy Pinzon MD LAB BLOOD ORDERABLES Final Result Performing Organization Address [facility] Phone Number [facility] [email or web address] [address] * Antibody identification (02/10/2024 10:02 PM TEAM PRIMARY CARE PHYSICIAN) [facility] Antibody ID 1 Anti-K Comment:Previous anti-E not reacting Blood 02/10/2024 10:0 2 PM TEAM PRIMARY CARE PHYSICIAN 02/10/2024 10:02 PM TEAM PRIMARY CARE PHYSICIAN Kassidy Pinzon MD LAB BLOOD BANK TEST ORDERAB LES Final Result Performing Organization Address [facility] de Phone Number [facility] [email or web address] [address] * eGFR (02/10/2024 8:51 PM TEAM PRIMARY CARE PHYSICIAN) [facility] eGFR 70 >=60 mL/min/1. 73 m2 [...] last reviewed 2021. Blood 02/10/2024 8:51 PM TEAM PRIMARY CARE PHYSICIAN 02/10/2024 9:12 PM TEAM PRIMARY CARE PHYSICIAN us Carin Granados MD LAB BLOOD ORDERABLES Tete palomino Result [facility] Department [place] [address] * Differential, auto (02/10/2024 8:51 PM TEAM PRIMARY CARE PHYSICIAN) Pathologist [facility] Neutrophil abs 4.2 1.5 - 6.5 K/cumm Imm gran abs 0.0 0.0 - 0.1 K/cumm [facility] Lymphocyte abs 1.4 0.8 - 3.3 K/cumm [facility] Monocyte abs 0.6 0.2 - 0.8 K/cumm [facility] Eosinophil abs 0.2 0.0 - 0.5 K/cumm [facility] Basophil abs 0.0 0.0 - 0.1 K/cumm [facility] Neutrophil pct 64.3 % [facility] Comment: Interpretive Data Percent cell count reference ranges are not reported, since discordance with absolute values may lead to misinterpretation of CBC data. Current Interpretive Data was last revised on 2017. Imm gran pct 0.3 % [facility] Comment: Interpretive Data Percent cell count reference ranges are not reported, since discordance with absolute values may lead to misinterpretation of CBC data. Current Interpretive Data was last revised on 2017. Lymphocyte pct 22.0 % [facility] Comment: Interpretive Data Percent cell count reference ranges are not reported, since discordance with absolute values may lead to misinterpretation of CBC data. Current Interpretive Data was last revised on 2017. Monocyte pct 9.4 % [facility] Comment: Interpretive Data Percent cell count reference ranges are not reported, since discordance with absolute values may lead to misinterpretation of CBC data. Current Interpretive Data was last revised on 2017. Eosinophil pct 3.7 % [facility] Comment: Interpretive Data Percent cell count reference ranges are not reported, since discordance with absolute values may lead to misinterpretation of CBC data. Current Interpretive Data was last revised on 2017. Basophil pct 0.3 % [facility] Comment: Interpretive Data Percent cell count reference ranges are not reported, since discordance with absolute values may lead to misinterpretation of CBC data. Current Interpretive Data was last revised on 2017. Blood 02/10/2024 8:51 PM TEAM PRIMARY CARE PHYSICIAN 02/10/2024 9:12 PM TEAM PRIMARY CARE PHYSICIAN us Carin Granados MD LAB BLOOD ORDERABLES Tete palomino Result [facility] Department [place] [address] * (ABNORMAL) CBC with auto differential (02/10/2024 8:51 PM TEAM PRIMARY CARE PHYSICIAN) WBC 6.5 3.8 - 9.9 K/cumm Hgb 7.5(L) 11.9 - 15.5 g/dL [facility] Hct 24.3(L) 35.6 - 45.5 % [facility] Plt 245 150 - 400 K/cumm [facility] MPV 9.5 9.1 - 12.3 fL [facility] RBC 2.92(L) 3.90 - 5.20 M/cumm [facility] MCV 83.2 81.3 - 96.4 fL [facility] MCH 25.7(L) 27.1 - 33.3 pg [facility] MCHC 30.9(L) 32.3 - 35.7 g/dL [facility] RDW CV 14.1 11.1 - 14.9 % [facility] RDW SD 42.3 35.7 - 48.1 fL [facility] NRBC abs 0.00 0.00 - 0.01 K/cumm [facility] Blood 02/10/2024 8:51 PM TEAM PRIMARY CARE PHYSICIAN 02/10/2024 9:12 PM TEAM PRIMARY CARE PHYSICIAN Carin Granados MD LAB BLOOD ORDERABLES Tete l Result Performing Organization Address [facility] Co de Phone Number [facility] [email or web address] [address] * Transfusion reaction evaluation with specimen collection (02/10/2024 8:51 PM TEAM PRIMARY CARE PHYSICIAN) Recommended Product Transfuse K negative red blood cells. Recommened Pre Medication None [facility] Final Analysis of Transfusion Reaction Delayed Hemolytic Transfusion Reaction [facility] Blood 02/10/2024 8:51 PM TEAM PRIMARY CARE PHYSICIAN 02/10/2024 9:12 PM TEAM PRIMARY CARE PHYSICIAN Result [facility] Kassidy Pinzon MD LAB BLOOD BANK TEST ORDERAB LES Final Result Performing Organization Address [facility] Co de Phone Number [facility] [email or web address] [address] * (ABNORMAL) Type and screen (02/10/2024 8:51 PM TEAM PRIMARY CARE PHYSICIAN) ABO Rh O Positive Ruiz, indirect Positive(A) [facility] Blood 02/10/2024 8:51 PM TEAM PRIMARY CARE PHYSICIAN 02/10/2024 9:12 PM TEAM PRIMARY CARE PHYSICIAN Narrative [facility] - 02/10/2024 10:02 PM TEAM PRIMARY CARE PHYSICIAN Has the patient had Daratumumab or Isatuximab in the past 6 months?->Unknown Kassidy Pinzon MD LAB BLOOD BANK TEST ORDERAB LES Final Result Performing Organization Address [facility] Co de Phone Number [facility] [email or web address] [place], [place] [id number] * (ABNORMAL) Direct antiglobulin test (02/10/2024 8:51 PM TEAM PRIMARY CARE PHYSICIAN) Pathologist [facility] Direct Ruiz BS Interpretation Positive( A) Comment:Eluate not performed RYDER positive with anti-C3 only. Blood 02/10/2024 8:51 PM TEAM PRIMARY CARE PHYSICIAN 02/10/2024 9:12 PM TEAM PRIMARY CARE PHYSICIAN Kassidy Pinzon MD LAB BLOOD BANK TEST ORDERAB LES Final Result Performing Organization Address [facility] Co de Phone Number [place], [place] [id number] * Phosphorus (02/10/2024 8:51 PM TEAM PRIMARY CARE PHYSICIAN) Pathologist [facility] Phosphorus, pl 3.1 2.3 - 4.5 mg/dL Blood 02/10/2024 8:51 PM TEAM PRIMARY CARE PHYSICIAN 02/10/2024 9:12 PM TEAM PRIMARY CARE PHYSICIAN us Carin Granados MD LAB BLOOD ORDERABLES Tete l Result Performing Organization Address [facility] Co de Phone Number [facility] of Laboratories [place], [place] [id number] * Magnesium (02/10/2024 8:51 PM TEAM PRIMARY CARE PHYSICIAN) [facility] Magnesium 2.3 1.4 - 2.5 mg/dL Blood 02/10/2024 8:51 PM TEAM PRIMARY CARE PHYSICIAN 02/10/2024 9:12 PM TEAM PRIMARY CARE PHYSICIAN us Carin Granados MD LAB BLOOD ORDERABLES Tete l Result Performing Organization Address [facility] Co de Phone Number [facility] Department [place] [address] * (ABNORMAL) Hepatic function panel (02/10/2024 8:51 PM TEAM PRIMARY CARE PHYSICIAN) [facility] Bilirubin, total 0.8 0.1 - 1.2 mg/dL Bilirubin, direct 0.3 0.1 - 0.3 mg/dL [facility] Protein, pl 7.2 6.5 - 8.5 g/dL [facility] Albumin 3.1(L) 3.5 - 5.0 g/dL [facility] Alk phos 317(H) 40 - 130 Units/L [facility] ALT 26 7 - 45 Units/L [facility] AST 60(H) 10 - 45 Units/L [facility] Blood 02/10/2024 8:51 PM TEAM PRIMARY CARE PHYSICIAN 02/10/2024 9:12 PM TEAM PRIMARY CARE PHYSICIAN Carin Granados MD LAB BLOOD ORDERABLES Tete l Result [facility] Department [place] [address] * Basic metabolic panel (02/10/2024 8:51 PM TEAM PRIMARY CARE PHYSICIAN) [facility] Sodium 137 135 - 145 mmol/L Potassium, pl 4.5 3.3 - 4.9 mmol/L [facility] Chloride 100 97 - 110 mmol/L [facility] CO2 31 22 - 32 mmol/L [facility] Anion gap 6 2 - 15 mmol/L [facility] BUN 25 6 - 25 mg/dL [facility] Creatinine 1.05 0.60 - 1.10 mg/dL [facility] Glucose 103 70 - 199 mg/dL [facility] Comment: Interpretive Data Fasting glucose [...] Calcium 8.9 8.5 - 10.3 mg/dL [facility] Blood 02/10/2024 8:51 PM TEAM PRIMARY CARE PHYSICIAN 02/10/2024 9:12 PM TEAM PRIMARY CARE PHYSICIAN Carin Granados MD LAB BLOOD ORDERABLES Tete l Result [facility] [email or web address] [address] * POCT glucose (02/10/2024 8:28 PM TEAM PRIMARY CARE PHYSICIAN) Glucose, POC 111 70 - 199 mg/dL Blood 02/10/2024 8:28 PM TEAM PRIMARY CARE PHYSICIAN 02/10/2024 8:28 PM TEAM PRIMARY CARE PHYSICIAN Kassidy Pinzon MD LAB POCT ORDERABLES - DEVIC E Final Result Performing Organization Address City/[facility] Co de Phone Number [facility] [email or web address] [address] * POCT glucose (02/10/2024 5:13 PM TEAM PRIMARY CARE PHYSICIAN) Glucose, POC 96 70 - 199 mg/dL Blood 02/10/2024 5:13 PM TEAM PRIMARY CARE PHYSICIAN 02/10/2024 5:13 PM TEAM PRIMARY CARE PHYSICIAN Kassidy Pinzon MD LAB POCT ORDERABLES - DEVIC E Final Result Performing Organization Address City/[facility] Co de Phone Number [facility] [email or web address] [address] * IR Central Line Placement > 5 Years (02/10/2024 3:32 PM TEAM PRIMARY CARE PHYSICIAN) Anatomical Region Laterality Modality Body N/A Radio Fluoroscop y 02/10/2024 3:42 PM TEAM PRIMARY CARE PHYSICIAN Impressions 02/10/2024 3:42 PM TEAM PRIMARY CARE PHYSICIAN Successful nontunneled catheter placement (5-Ecuadorean dual-lumen) in the left internal jugular vein. [...] Abby Mao MD Narrative 02/10/2024 3:42 PM TEAM PRIMARY CARE PHYSICIAN EXAMINATION: NONTUNNELED CENTRAL VENOUS CATHETER PLACEMENT (STD) HISTORY: History sacral wound with plan for long-term intravenous antibiotics. ATTENDING PRESENCE: Abby Mao MD, PhD, the attending radiologist was present from the beginning to the end of the procedure. SEDATION: Local anesthetic only TECHNIQUE: The risks, benefits and alternatives were discussed and informed consent was obtained. Prior to beginning the procedure, [place] Protocol was used to confirm the patient's [...] was assessed. After dilating the tract, a 5-Ecuadorean dual lumen aric trimmed to the appropriate [...] was obtained. Prior to beginning the procedure, [place] Protocol was used to confirm the patient's [...] was assessed. After dilating the tract, a 5-Ecuadorean dual lumen aric trimmed to the appropriate [...] are seen. IMPRESSION: Successful nontunneled catheter placement (5-Ecuadorean dual-lumen) in the left internal jugular vein. [...] ult * POCT glucose (02/10/2024 12:31 PM TEAM PRIMARY CARE PHYSICIAN) Glucose, POC 119 70 - 199 mg/dL Blood 02/10/2024 12:3 1 PM TEAM PRIMARY CARE PHYSICIAN 02/10/2024 12:31 PM TEAM PRIMARY CARE PHYSICIAN Kassidy Pinzon MD LAB POCT ORDERABLES - DEVIC E Final Result Performing Organization Address City/State/[facility] Co de Phone Number [facility] Department [place] [address] * POCT glucose (02/10/2024 8:15 AM TEAM PRIMARY CARE PHYSICIAN) Glucose, POC 96 70 - 199 mg/dL Blood 02/10/2024 8:15 AM TEAM PRIMARY CARE PHYSICIAN 02/10/2024 8:15 AM TEAM PRIMARY CARE PHYSICIAN Kassidy Pinzon MD LAB POCT ORDERABLES - DEVIC E Final Result Performing Organization Address City/[facility] Co de Phone Number [facility] [place] [address] * eGFR (02/09/2024 9:52 PM TEAM PRIMARY CARE PHYSICIAN) [facility] eGFR 71 >=60 mL/min/1. 73 m2 [...] last reviewed 2021. Blood 02/09/2024 9:52 PM TEAM PRIMARY CARE PHYSICIAN 02/09/2024 10:45 PM TEAM PRIMARY CARE PHYSICIAN Carin Granados MD LAB BLOOD ORDERABLES Tete georgette Result [facility] Department [place] [address] * Differential, auto (02/09/2024 9:52 PM TEAM PRIMARY CARE PHYSICIAN) Neutrophil abs 3.9 1.5 - 6.5 K/cumm Imm gran abs 0.0 0.0 - 0.1 K/cumm [facility] Lymphocyte abs 1.1 0.8 - 3.3 K/cumm [facility] Monocyte abs 0.7 0.2 - 0.8 K/cumm [facility] Eosinophil abs 0.2 0.0 - 0.5 K/cumm [facility] Basophil abs 0.0 0.0 - 0.1 K/cumm [facility] Neutrophil pct 65.2 % [facility] Comment: Interpretive Data Percent cell count reference ranges are not reported, since discordance with absolute values may lead to misinterpretation of CBC data. Current Interpretive Data was last revised on 2017. Imm gran pct 0.2 % [facility] Comment: Interpretive Data Percent cell count reference ranges are not reported, since discordance with absolute values may lead to misinterpretation of CBC data. Current Interpretive Data was last revised on 2017. Lymphocyte pct 19.0 % [facility] Comment: Interpretive Data Percent cell count reference ranges are not reported, since discordance with absolute values may lead to misinterpretation of CBC data. Current Interpretive Data was last revised on 2017. Monocyte pct 11.8 % [facility] Comment: Interpretive Data Percent cell count reference ranges are not reported, since discordance with absolute values may lead to misinterpretation of CBC data. Current Interpretive Data was last revised on 2017. Eosinophil pct 3.5 % [facility] Comment: Interpretive Data Percent cell count reference ranges are not reported, since discordance with absolute values may lead to misinterpretation of CBC data. Current Interpretive Data was last revised on 2017. Basophil pct 0.3 % [facility] Comment: Interpretive Data Percent cell count reference ranges are not reported, since discordance with absolute values may lead to misinterpretation of CBC data. Current Interpretive Data was last revised on 2017. Blood 02/09/2024 9:52 PM TEAM PRIMARY CARE PHYSICIAN 02/09/2024 10:46 PM TEAM PRIMARY CARE PHYSICIAN us Carin Granados MD LAB BLOOD ORDERABLES Tete l Result [facility] Department [place] [address] * (ABNORMAL) CBC with auto differential (02/09/2024 9:52 PM TEAM PRIMARY CARE PHYSICIAN) WBC 5.9 3.8 - 9.9 K/cumm Hgb 7.0(L) 11.9 - 15.5 g/dL [facility] Hct 22.8(L) 35.6 - 45.5 % [facility] Plt 230 150 - 400 K/cumm [facility] MPV 9.8 9.1 - 12.3 fL [facility] RBC 2.77(L) 3.90 - 5.20 M/cumm [facility] MCV 82.3 81.3 - 96.4 fL [facility] MCH 25.3(L) 27.1 - 33.3 pg [facility] MCHC 30.7(L) 32.3 - 35.7 g/dL [facility] RDW CV 13.7 11.1 - 14.9 % [facility] RDW SD 41.2 35.7 - 48.1 fL [facility] NRBC abs 0.00 0.00 - 0.01 K/cumm [facility] Blood 02/09/2024 9:52 PM TEAM PRIMARY CARE PHYSICIAN 02/09/2024 10:46 PM TEAM PRIMARY CARE PHYSICIAN us Carin Granados MD LAB BLOOD ORDERABLES Tete l Result [facility] [place] [address] * Phosphorus (02/09/2024 9:52 PM TEAM PRIMARY CARE PHYSICIAN) Pathologist [facility] Phosphorus, pl 3.1 2.3 - 4.5 mg/dL Blood 02/09/2024 9:52 PM TEAM PRIMARY CARE PHYSICIAN 02/09/2024 10:45 PM TEAM PRIMARY CARE PHYSICIAN us Carin Granados MD LAB BLOOD ORDERABLES Tete l Result Performing Organization Address City/[facility] Co de Phone Number [facility] [place] [address] * Magnesium (02/09/2024 9:52 PM TEAM PRIMARY CARE PHYSICIAN) Pathologist [facility] Magnesium 2.2 1.4 - 2.5 mg/dL Blood 02/09/2024 9:52 PM TEAM PRIMARY CARE PHYSICIAN 02/09/2024 10:45 PM TEAM PRIMARY CARE PHYSICIAN us Carin Granados MD LAB BLOOD ORDERABLES Tete l Result Performing Organization Address [facility] [place] [address] * Vancomycin level random (02/09/2024 9:52 PM TEAM PRIMARY CARE PHYSICIAN) [facility] Vancomycin random 11.5 mcg/mL Comment: Interpretive Data No reference ranges have been established for random drug levels. Current Interpretive Data was last revised on 2020. Blood 02/09/2024 9:52 PM TEAM PRIMARY CARE PHYSICIAN 02/09/2024 10:45 PM TEAM PRIMARY CARE PHYSICIAN us Kassidy Pinzon MD LAB BLOOD ORDERABLES Final Result Performing Organization Address City/[facility]/ZIP Co de Phone Number [facility] [email or web address] [address] * (ABNORMAL) Hepatic function panel (02/09/2024 9:52 PM TEAM PRIMARY CARE PHYSICIAN) [facility] Bilirubin, total 0.9 0.1 - 1.2 mg/dL Bilirubin, direct 0.3 0.1 - 0.3 mg/dL [facility] Protein, pl 6.7 6.5 - 8.5 g/dL [facility] Albumin 2.7(L) 3.5 - 5.0 g/dL [facility] Alk phos 306(H) 40 - 130 Units/L [facility] ALT 27 7 - 45 Units/L [facility] AST 60(H) 10 - 45 Units/L [facility] Blood 02/09/2024 9:52 PM TEAM PRIMARY CARE PHYSICIAN 02/09/2024 10:45 PM TEAM PRIMARY CARE PHYSICIAN us Carin Granados MD LAB BLOOD ORDERABLES Tete l Result [facility] Department [place] [address] * Basic metabolic panel (02/09/2024 9:52 PM TEAM PRIMARY CARE PHYSICIAN) [facility] Sodium 138 135 - 145 mmol/L Potassium, pl 4.3 3.3 - 4.9 mmol/L [facility] Chloride 103 97 - 110 mmol/L [facility] CO2 29 22 - 32 mmol/L [facility] Anion gap 6 2 - 15 mmol/L [facility] BUN 21 6 - 25 mg/dL [facility] Creatinine 1.03 0.60 - 1.10 mg/dL [facility] Glucose 124 70 - 199 mg/dL [facility] Comment: Interpretive Data Fasting glucose [...] Calcium 8.7 8.5 - 10.3 mg/dL [facility] Blood 02/09/2024 9:52 PM TEAM PRIMARY CARE PHYSICIAN 02/09/2024 10:45 PM TEAM PRIMARY CARE PHYSICIAN Carin Granados MD LAB BLOOD ORDERABLES Tete l Result Performing Organization Address City/[facility] Co de Phone Number [facility] [place] [address] * POCT glucose (02/09/2024 8:32 PM TEAM PRIMARY CARE PHYSICIAN) Glucose, POC 135 70 - 199 mg/dL Blood 02/09/2024 8:32 PM TEAM PRIMARY CARE PHYSICIAN 02/09/2024 8:32 PM TEAM PRIMARY CARE PHYSICIAN us Kassidy Pinzon MD LAB POCT ORDERABLES - DEVIC E Final Result Performing Organization Address [facility] [place] [address] * POCT glucose (02/09/2024 5:55 PM TEAM PRIMARY CARE PHYSICIAN) Glucose, POC 142 70 - 199 mg/dL Blood 02/09/2024 5:55 PM TEAM PRIMARY CARE PHYSICIAN 02/09/2024 5:55 PM TEAM PRIMARY CARE PHYSICIAN Kassidy Pinzon MD LAB POCT ORDERABLES - DEVIC E Final Result Performing Organization Address [facility] de Phone Number [facility] [email or web address] [address] * (ABNORMAL) Urinalysis reflex to microscopic and culture Urine (02/09/2024 5:09 PM TEAM PRIMARY CARE PHYSICIAN) Color, ur Straw Yellow Clarity, ur Cloudy(A) Clear [facility] Specific gravity, ur 1.014 1.003 - 1.030 [facility] pH, urine 8.0 [facility] Comment: Interpretive Data U rine pH is affected by diet, medications, systemic acid-base disturbances, and renal tubular function. pH may affect urinary stone formation. For example, urine pH below 6.0 may help reduce the tendency for calcium phosphate stones and pH greater than 6.0 may reduce the tendency for uric acid stone formation. Source: [facility] Current Interpretive Data was last revised on 2017 Protein, ur ql Trace Negative [facility] Glucose, ur ql Negative Negative [facility] Ketones, ur Negative Negative [facility] Bilirubin, ur Negative Negative [facility] Blood, ur 1+(A) Negative [facility] Urobilinogen, ur 2.0(A) <2.0 mg/dL [facility] Nitrite, ur Negative Negative [facility] Leukocyte esterase, ur 3+(A) Negative [facility] UA reflex comment Reflex to microscopic UA will be performed. [facility] Urine 02/09/2024 5:09 PM TEAM PRIMARY CARE PHYSICIAN 02/09/2024 5:48 PM TEAM PRIMARY CARE PHYSICIAN Kassidy Pinzon MD LAB MICROBIOLOGY - GENERAL ORDERABLES Final Result [facility] Department [place] [address] * (ABNORMAL) Urinalysis, microscopic only (02/09/2024 5:09 PM TEAM PRIMARY CARE PHYSICIAN) WBC, ur >50(A) 0 - 5 /HPF RBC, ur 6-10(A) 0 - 2 /HPF [facility] Epithelial cells, squamous, ur 1-5 0 - 5 /HPF [facility] Bacteria, ur Trace(A) [facility] Culture Reflex Comment Reflex to urine culture will be performed. [facility] Urine 02/09/2024 5:09 PM TEAM PRIMARY CARE PHYSICIAN 02/09/2024 5:48 PM TEAM PRIMARY CARE PHYSICIAN Kassidy Pinzon MD LAB URINE ORDERABLES Final Result [facility] Department [place] [address] * Urine culture Urine (02/09/2024 5:09 PM TEAM PRIMARY CARE PHYSICIAN) Report Final Report: No growth Urine 02/09/2024 5:09 PM TEAM PRIMARY CARE PHYSICIAN 02/09/2024 8:14 PM TEAM PRIMARY CARE PHYSICIAN [facility]ative [facility] - 02/10/2024 9:34 PM TEAM PRIMARY CARE PHYSICIAN Urine culture reflexed based upon urinalysis results. Testing performed by [facility] ([phone]) us Kassidy Pinzon MD LAB MICROBIOLOGY - GENERAL ORDERABLES Final Result Performing Organization Address [facility] Co de Phone Number [facility] Department [place] [address] * XR Abdomen Ap 1 Vw (02/09/2024 4:09 PM TEAM PRIMARY CARE PHYSICIAN) Anatomical Region Laterality Modality Body, Abdomen N/A Computed Radiogr aphy 02/09/2024 4:36 PM TEAM PRIMARY CARE PHYSICIAN Impressions 02/09/2024 4:54 PM TEAM PRIMARY CARE PHYSICIAN A single view of the abdomen is [...] Raheem Marion M.D. Narrative 02/09/2024 4:54 PM TEAM PRIMARY CARE PHYSICIAN EXAMINATION: Abdomen, one view. HISTORY: Abdominal pain. [...] ult * POCT glucose (02/09/2024 12:51 PM TEAM PRIMARY CARE PHYSICIAN) [facility] Glucose, POC 121 70 - 199 mg/dL Blood 02/09/2024 12:5 1 PM TEAM PRIMARY CARE PHYSICIAN 02/09/2024 12:51 PM TEAM PRIMARY CARE PHYSICIAN Kassidy Pinzon MD LAB POCT ORDERABLES - DEVIC E Final Result Performing Organization Address [facility] Co de Phone Number [facility] Department [email or web address] [address] * POCT glucose (02/09/2024 7:40 AM TEAM PRIMARY CARE PHYSICIAN) [facility] Glucose, POC 96 70 - 199 mg/dL Blood 02/09/2024 7:40 AM TEAM PRIMARY CARE PHYSICIAN 02/09/2024 7:40 AM TEAM PRIMARY CARE PHYSICIAN Kassidy Pinzon MD LAB POCT ORDERABLES - DEVIC E Final Result Performing Organization Address [facility] Co de Phone Number [facility] Department [email or web address] [address] * eGFR (02/09/2024 12:07 AM TEAM PRIMARY CARE PHYSICIAN) [facility] eGFR 77 >=60 mL/min/1. 73 m2 [...] reviewed 2021. Blood 02/09/2024 12:0 7 AM TEAM PRIMARY CARE PHYSICIAN 02/09/2024 12:57 AM TEAM PRIMARY CARE PHYSICIAN Carin Granados MD LAB BLOOD ORDERABLES Tete l Result Performing Organization Address City/[facility]/ZIP Co de Phone Number [facility] Department [email or web address] [address] * Creatinine (02/09/2024 12:07 AM TEAM PRIMARY CARE PHYSICIAN) Creatinine 0.97 0.60 - 1.10 mg/dL Blood 02/09/2024 12:0 7 AM TEAM PRIMARY CARE PHYSICIAN 02/09/2024 12:57 AM TEAM PRIMARY CARE PHYSICIAN [facility]arrative [facility] - 02/09/2024 1:23 AM TEAM PRIMARY CARE PHYSICIAN While on enoxaparin Carin Granados MD LAB BLOOD ORDERABLES Tete l Result [facility] [email or web address] [address] * eGFR (02/08/2024 9:50 PM TEAM PRIMARY CARE PHYSICIAN) eGFR 76 >=60 mL/min/1. 73 m2 Comment: [...] last reviewed 2021. Blood 02/08/2024 9:50 PM TEAM PRIMARY CARE PHYSICIAN 02/08/2024 11:07 PM TEAM PRIMARY CARE PHYSICIAN us Carin Granados MD LAB BLOOD ORDERABLES Tete palomino Result [facility] Department [place] [address] * Differential, auto (02/08/2024 9:50 PM TEAM PRIMARY CARE PHYSICIAN) Neutrophil abs 4.0 1.5 - 6.5 K/cumm Imm gran abs 0.0 0.0 - 0.1 K/cumm [facility] Lymphocyte abs 1.1 0.8 - 3.3 K/cumm [facility] Monocyte abs 0.5 0.2 - 0.8 K/cumm [facility] Eosinophil abs 0.3 0.0 - 0.5 K/cumm [facility] Basophil abs 0.0 0.0 - 0.1 K/cumm [facility] Neutrophil pct 68.3 % [facility] Comment: Interpretive Data Percent cell count reference ranges are not reported, since discordance with absolute values may lead to misinterpretation of CBC data. Current Interpretive Data was last revised on 2017. Imm gran pct 0.3 % [facility] Comment: Interpretive Data Percent cell count reference ranges are not reported, since discordance with absolute values may lead to misinterpretation of CBC data. Current Interpretive Data was last revised on 2017. Lymphocyte pct 17.9 % [facility] Comment: Interpretive Data Percent cell count reference ranges are not reported, since discordance with absolute values may lead to misinterpretation of CBC data. Current Interpretive Data was last revised on 2017. Monocyte pct 8.8 % [facility] Comment: Interpretive Data Percent cell count reference ranges are not reported, since discordance with absolute values may lead to misinterpretation of CBC data. Current Interpretive Data was last revised on 2017. Eosinophil pct 4.4 % [facility] Comment: Interpretive Data Percent cell count reference ranges are not reported, since discordance with absolute values may lead to misinterpretation of CBC data. Current Interpretive Data was last revised on 2017. Basophil pct 0.3 % [facility] Comment: Interpretive Data Percent cell count reference ranges are not reported, since discordance with absolute values may lead to misinterpretation of CBC data. Current Interpretive Data was last revised on 2017. Blood 02/08/2024 9:50 PM TEAM PRIMARY CARE PHYSICIAN 02/08/2024 10:57 PM TEAM PRIMARY CARE PHYSICIAN us Carin Granados MD LAB BLOOD ORDERABLES Tete palomino Result [facility] Department [place] [address] * (ABNORMAL) CBC with auto differential (02/08/2024 9:50 PM TEAM PRIMARY CARE PHYSICIAN) WBC 5.9 3.8 - 9.9 K/cumm Hgb 8.6(L) 11.9 - 15.5 g/dL [facility] Hct 27.7(L) 35.6 - 45.5 % [facility] Plt 239 150 - 400 K/cumm [facility] MPV 9.5 9.1 - 12.3 fL [facility] RBC 3.37(L) 3.90 - 5.20 M/cumm [facility] MCV 82.2 81.3 - 96.4 fL [facility] MCH 25.5(L) 27.1 - 33.3 pg [facility] MCHC 31.0(L) 32.3 - 35.7 g/dL [facility] RDW CV 13.6 11.1 - 14.9 % [facility] RDW SD 40.8 35.7 - 48.1 fL [facility] NRBC abs 0.00 0.00 - 0.01 K/cumm [facility] Blood 02/08/2024 9:50 PM TEAM PRIMARY CARE PHYSICIAN 02/08/2024 10:57 PM TEAM PRIMARY CARE PHYSICIAN Carin Granados MD LAB BLOOD ORDERABLES Tete l Result Performing Organization Address City/[facility] Co de Phone Number [facility] [place], [place] [id number] * (ABNORMAL) Protime-INR (02/08/2024 9:50 PM TEAM PRIMARY CARE PHYSICIAN) PT 16.5(H) 9.7 - 13.0 sec INR 1.51(H) 0.90 - 1.20 [facility] Comment: Interpretive data Oral anticoagulant therapeutic ranges: Venous thromboembolism prophylaxis or treatment: 2.0-3.0 CARDIOLOGY Standard range: 2.0-3.0 High-intensity range: 2.5-3.5 Refer to indication-specific guidelines for appropriate target ranges for prosthetic heart valve replacement. Current interpretive data was last revised on 2019. Blood 02/08/2024 9:50 PM TEAM PRIMARY CARE PHYSICIAN 02/08/2024 10:56 PM TEAM PRIMARY CARE PHYSICIAN us Kassidy Pinzon MD LAB BLOOD ORDERABLES Final Result Performing Organization Address City/[facility] Co de Phone Number [facility] of [email or web address] [place], [place] [id number] * Phosphorus (02/08/2024 9:50 PM TEAM PRIMARY CARE PHYSICIAN) Phosphorus, pl 3.6 2.3 - 4.5 mg/dL Blood 02/08/2024 9:50 PM TEAM PRIMARY CARE PHYSICIAN 02/08/2024 10:52 PM TEAM PRIMARY CARE PHYSICIAN Carin Granados MD LAB BLOOD ORDERABLES Tete l Result Performing Organization Address [facility] de Phone Number [facility] [place] [address] * Magnesium (02/08/2024 9:50 PM TEAM PRIMARY CARE PHYSICIAN) Pathologist [facility] Magnesium 2.0 1.4 - 2.5 mg/dL Blood 02/08/2024 9:50 PM TEAM PRIMARY CARE PHYSICIAN 02/08/2024 10:52 PM TEAM PRIMARY CARE PHYSICIAN Carin Granados MD LAB BLOOD ORDERABLES Tete l Result Performing Organization Address [facility] [place] [address] * Vancomycin level random (02/08/2024 9:50 PM TEAM PRIMARY CARE PHYSICIAN) Pathologist [facility] Vancomycin random 20.0 mcg/mL Comment: Interpretive Data No reference ranges have been established for random drug levels. Current Interpretive Data was last revised on 2020. Blood 02/08/2024 9:50 PM TEAM PRIMARY CARE PHYSICIAN 02/08/2024 10:52 PM TEAM PRIMARY CARE PHYSICIAN Result [facility] Kassidy Pinzon MD LAB BLOOD ORDERABLES Final Result Performing Organization Address [facility] de Phone Number [facility] [email or web address] [address] * (ABNORMAL) Hepatic function panel (02/08/2024 9:50 PM TEAM PRIMARY CARE PHYSICIAN) Pathologist [facility] Bilirubin, total 1.2 0.1 - 1.2 mg/dL Bilirubin, direct 0.3 0.1 - 0.3 mg/dL [facility] Protein, pl 7.2 6.5 - 8.5 g/dL [facility] Albumin 3.0(L) 3.5 - 5.0 g/dL [facility] Alk phos 305(H) 40 - 130 Units/L [facility] ALT 27 7 - 45 Units/L [facility] AST 63(H) 10 - 45 Units/L [facility] Blood 02/08/2024 9:50 PM TEAM PRIMARY CARE PHYSICIAN 02/08/2024 10:52 PM TEAM PRIMARY CARE PHYSICIAN us Carin Granados MD LAB BLOOD ORDERABLES Tete l Result [facility] Department [place] [address] * Basic metabolic panel (02/08/2024 9:50 PM TEAM PRIMARY CARE PHYSICIAN) Pathologist [facility] Sodium 139 135 - 145 mmol/L Potassium, pl 4.6 3.3 - 4.9 mmol/L [facility] Chloride 102 97 - 110 mmol/L [facility] CO2 29 22 - 32 mmol/L [facility] Anion gap 8 2 - 15 mmol/L [facility] BUN 23 6 - 25 mg/dL [facility] Creatinine 0.98 0.60 - 1.10 mg/dL [facility] Glucose 89 70 - 199 mg/dL [facility] Comment: Interpretive Data Fasting glucose [...] Calcium 9.1 8.5 - 10.3 mg/dL [facility] Blood 02/08/2024 9:50 PM TEAM PRIMARY CARE PHYSICIAN 02/08/2024 10:52 PM TEAM PRIMARY CARE PHYSICIAN us Carin Granaods MD LAB BLOOD ORDERABLES Tete l Result Performing Organization Address [facility] Co de Phone Number [facility] [place] [address] * POCT glucose (02/08/2024 8:31 PM TEAM PRIMARY CARE PHYSICIAN) Glucose, POC 98 70 - 199 mg/dL Blood 02/08/2024 8:31 PM TEAM PRIMARY CARE PHYSICIAN 02/08/2024 8:31 PM TEAM PRIMARY CARE PHYSICIAN Kassidy Pinzon MD LAB POCT ORDERABLES - DEVIC E Final Result Performing Organization Address [facility] de Phone Number [facility] [place] [address] * POCT glucose (02/08/2024 5:56 PM TEAM PRIMARY CARE PHYSICIAN) Glucose, POC 123 70 - 199 mg/dL Blood 02/08/2024 5:56 PM TEAM PRIMARY CARE PHYSICIAN 02/08/2024 5:56 PM TEAM PRIMARY CARE PHYSICIAN Kassidy Pinzon MD LAB POCT ORDERABLES - DEVIC E Final Result Performing Organization Address [facility] de Phone Number [facility] Department [place] [address] * (ABNORMAL) Vancomycin level trough Prior to 3rd dose of 750mg Q12 (02/08/2024 1:55 PM TEAM PRIMARY CARE PHYSICIAN) Vancomycin trough 24.7(H) 10.0 - 20.0 mcg/mL Comment:Reviewed Blood 02/08/2024 1:55 PM TEAM PRIMARY CARE PHYSICIAN 02/08/2024 2:35 PM TEAM PRIMARY CARE PHYSICIAN [facility] - 02/08/2024 3:10 PM TEAM PRIMARY CARE PHYSICIAN Prior to 3rd dose of 750mg Q12 Kassidy Pinzon MD LAB BLOOD ORDERABLES Final Result Performing Organization Address City/[facility]/ZIP Co de Phone Number [facility] Department [place] [address] * POCT glucose (02/08/2024 11:40 AM TEAM PRIMARY CARE PHYSICIAN) Glucose, POC 98 70 - 199 mg/dL Blood 02/08/2024 11:4 0 AM TEAM PRIMARY CARE PHYSICIAN 02/08/2024 11:40 AM TEAM PRIMARY CARE PHYSICIAN us Kassidy Pinzon MD LAB POCT ORDERABLES - DEVIC E Final Result Performing Organization Address City/[facility] Co de Phone Number [facility] [place] [address] * POCT glucose (02/08/2024 8:20 AM TEAM PRIMARY CARE PHYSICIAN) [facility] Glucose, POC 91 70 - 199 mg/dL Blood 02/08/2024 8:20 AM TEAM PRIMARY CARE PHYSICIAN 02/08/2024 8:20 AM TEAM PRIMARY CARE PHYSICIAN us Kassidy Pinzon MD LAB POCT ORDERABLES - DEVIC E Final Result Performing Organization Address City/[facility] Co de Phone Number [facility] Department [place] [address] * eGFR (02/07/2024 9:30 PM TEAM PRIMARY CARE PHYSICIAN) [facility] eGFR 66 >=60 mL/min/1. 73 [...] last reviewed 2021. Blood 02/07/2024 9:30 PM TEAM PRIMARY CARE PHYSICIAN 02/07/2024 10:34 PM TEAM PRIMARY CARE PHYSICIAN us Carin Granados MD LAB BLOOD ORDERABLES Tete palomino Result [facility] Department [place] [address] * Differential, auto (02/07/2024 9:30 PM TEAM PRIMARY CARE PHYSICIAN) Neutrophil abs 4.1 1.5 - 6.5 K/cumm Imm gran abs 0.0 0.0 - 0.1 K/cumm [facility] Lymphocyte abs 0.8 0.8 - 3.3 K/cumm [facility] Monocyte abs 0.6 0.2 - 0.8 K/cumm [facility] Eosinophil abs 0.3 0.0 - 0.5 K/cumm [facility] Basophil abs 0.0 0.0 - 0.1 K/cumm [facility] Neutrophil pct 71.0 % [facility] Comment: Interpretive Data Percent cell count reference ranges are not reported, since discordance with absolute values may lead to misinterpretation of CBC data. Current Interpretive Data was last revised on 2017. Imm gran pct 0.5 % [facility] Comment: Interpretive Data Percent cell count reference ranges are not reported, since discordance with absolute values may lead to misinterpretation of CBC data. Current Interpretive Data was last revised on 2017. Lymphocyte pct 14.0 % [facility] Comment: Interpretive Data Percent cell count reference ranges are not reported, since discordance with absolute values may lead to misinterpretation of CBC data. Current Interpretive Data was last revised on 2017. Monocyte pct 9.5 % [facility] Comment: Interpretive Data Percent cell count reference ranges are not reported, since discordance with absolute values may lead to misinterpretation of CBC data. Current Interpretive Data was last revised on 2017. Eosinophil pct 4.8 % [facility] Comment: Interpretive Data Percent cell count reference ranges are not reported, since discordance with absolute values may lead to misinterpretation of CBC data. Current Interpretive Data was last revised on 2017. Basophil pct 0.2 % [facility] Comment: Interpretive Data Percent cell count reference ranges are not reported, since discordance with absolute values may lead to misinterpretation of CBC data. Current Interpretive Data was last revised on 2017. Blood 02/07/2024 9:30 PM TEAM PRIMARY CARE PHYSICIAN 02/07/2024 10:29 PM TEAM PRIMARY CARE PHYSICIAN us Carin Granados MD LAB BLOOD ORDERABLES Tete palomino Result [facility] Department [place] [address] * (ABNORMAL) CBC with auto differential (02/07/2024 9:30 PM TEAM PRIMARY CARE PHYSICIAN) WBC 5.8 3.8 - 9.9 K/cumm Hgb 7.8(L) 11.9 - 15.5 g/dL [facility] Hct 24.7(L) 35.6 - 45.5 % [facility] Plt 226 150 - 400 K/cumm [facility] MPV 9.8 9.1 - 12.3 fL [facility] RBC 2.95(L) 3.90 - 5.20 M/cumm [facility] MCV 83.7 81.3 - 96.4 fL [facility] MCH 26.4(L) 27.1 - 33.3 pg [facility] MCHC 31.6(L) 32.3 - 35.7 g/dL [facility] RDW CV 13.3 11.1 - 14.9 % [facility] RDW SD 40.3 35.7 - 48.1 fL [facility] NRBC abs 0.00 0.00 - 0.01 K/cumm [facility] Blood 02/07/2024 9:30 PM TEAM PRIMARY CARE PHYSICIAN 02/07/2024 10:29 PM TEAM PRIMARY CARE PHYSICIAN Carin Granados MD LAB BLOOD ORDERABLES Tete l Result Performing Organization Address [facility] Co de Phone Number [facility] [place] [address] * Phosphorus (02/07/2024 9:30 PM TEAM PRIMARY CARE PHYSICIAN) Pathologist [facility] Phosphorus, pl 4.4 2.3 - 4.5 mg/dL Blood 02/07/2024 9:30 PM TEAM PRIMARY CARE PHYSICIAN 02/07/2024 10:34 PM TEAM PRIMARY CARE PHYSICIAN Carin Granados MD LAB BLOOD ORDERABLES Tete l Result Performing Organization Address [facility] Co de Phone Number [facility] Department [place] [address] * Magnesium (02/07/2024 9:30 PM TEAM PRIMARY CARE PHYSICIAN) Pathologist [facility] Magnesium 2.1 1.4 - 2.5 mg/dL Blood 02/07/2024 9:30 PM TEAM PRIMARY CARE PHYSICIAN 02/07/2024 10:34 PM TEAM PRIMARY CARE PHYSICIAN Result [facility] Carin Granados MD LAB BLOOD ORDERABLES Tete l Result Performing Organization Address [facility] de Phone Number [facility] [email or web address] [address] * (ABNORMAL) Hepatic function panel (02/07/2024 9:30 PM TEAM PRIMARY CARE PHYSICIAN) Bilirubin, total 1.1 0.1 - 1.2 mg/dL Bilirubin, direct 0.3 0.1 - 0.3 mg/dL [facility] Protein, pl 6.7 6.5 - 8.5 g/dL [facility] Albumin 2.7(L) 3.5 - 5.0 g/dL [facility] Alk phos 326(H) 40 - 130 Units/L [facility] ALT 31 7 - 45 Units/L [facility] AST 80(H) 10 - 45 Units/L [facility] Blood 02/07/2024 9:30 PM TEAM PRIMARY CARE PHYSICIAN 02/07/2024 10:34 PM TEAM PRIMARY CARE PHYSICIAN us Carin Graandos MD LAB BLOOD ORDERABLES Tete l Result [facility] Department [place] [address] * Basic metabolic panel (02/07/2024 9:30 PM TEAM PRIMARY CARE PHYSICIAN) Pathologist [facility] Sodium 139 135 - 145 mmol/L Potassium, pl 4.5 3.3 - 4.9 mmol/L [facility] Chloride 103 97 - 110 mmol/L [facility] CO2 28 22 - 32 mmol/L [facility] Anion gap 8 2 - 15 mmol/L [facility] BUN 24 6 - 25 mg/dL [facility] Creatinine 1.10 0.60 - 1.10 mg/dL [facility] Glucose 109 70 - 199 mg/dL [facility] Comment: Interpretive Data Fasting glucose [...] Calcium 8.7 8.5 - 10.3 mg/dL [facility] Blood 02/07/2024 9:30 PM TEAM PRIMARY CARE PHYSICIAN 02/07/2024 10:34 PM TEAM PRIMARY CARE PHYSICIAN Carin Granados MD LAB BLOOD ORDERABLES Tete l Result Performing Organization Address [facility] Co de Phone Number [facility] [place] [address] * POCT glucose (02/07/2024 8:20 PM TEAM PRIMARY CARE PHYSICIAN) Glucose, POC 127 70 - 199 mg/dL Blood 02/07/2024 8:20 PM TEAM PRIMARY CARE PHYSICIAN 02/07/2024 8:20 PM TEAM PRIMARY CARE PHYSICIAN us Kassidy Pinzon MD LAB POCT ORDERABLES - DEVIC E Final Result Performing Organization Address [facility] Phone Number [facility] [place] [address] * POCT glucose (02/07/2024 4:41 PM TEAM PRIMARY CARE PHYSICIAN) Glucose, POC 113 70 - 199 mg/dL Blood 02/07/2024 4:41 PM TEAM PRIMARY CARE PHYSICIAN 02/07/2024 4:41 PM TEAM PRIMARY CARE PHYSICIAN us Kassidy Pinzon MD LAB POCT ORDERABLES - DEVIC E Final Result Performing Organization Address [facility] Co de Phone Number [facility] [email or web address] [address] * POCT glucose (02/07/2024 12:22 PM TEAM PRIMARY CARE PHYSICIAN) Glucose, POC 77 70 - 199 mg/dL Blood 02/07/2024 12:2 2 PM TEAM PRIMARY CARE PHYSICIAN 02/07/2024 12:22 PM TEAM PRIMARY CARE PHYSICIAN us Kassidy Pinzon MD LAB POCT ORDERABLES - DEVIC E Final Result Performing Organization Address [facility] Co de Phone Number [facility] [place] [address] * Tissue aerobic and anaerobic culture and gram stain Bone Sacral (02/07/2024 11:30 AM TEAM PRIMARY CARE PHYSICIAN) Direct Specimen Exam Stain: No polymorphonuclear leukocytes seen. No organisms seen. Report Final Report: No growth [facility] Bone (Sacral) 02/07/2024 11: 30 AM TEAM PRIMARY CARE PHYSICIAN 02/07/2024 3:04 PM TEAM PRIMARY CARE PHYSICIAN Narrative [facility] - 02/10/2024 12:53 PM TEAM PRIMARY CARE PHYSICIAN This is NOT Aspirate but instead a Coccyx Bone Biopsy Testing performed by Microbiology Laboratory ([phone]) Specimens submitted from normally sterile body sites [...] LAB MICROBIOLOGY - GENERAL ORDERABLES Final Result [facility] Department [facility] [place] [address] * Mycology (fungal) culture and stain Aspirate Sacral (02/07/2024 11:30 AM TEAM PRIMARY CARE PHYSICIAN) Direct Specimen Exam Stain: No Fungal elements seen. Report Final Report: No growth of fungus [facility] Aspirate (Sacral) 02/07/2024 11:30 AM TEAM PRIMARY CARE PHYSICIAN 02/07/2024 3:09 PM TEAM PRIMARY CARE PHYSICIAN N[facility]ative [facility] - 03/06/2024 8:33 AM TEAM PRIMARY CARE PHYSICIAN Coccyx Aspirate Testing performed by Microbiology Laboratory ([phone]). us Carin Granados MD LAB MICROBIOLOGY - GENERA L ORDERABLES Final Result [facility] Department [place] [address] * Mycology (fungal) culture Bone Sacral (02/07/2024 11:30 AM TEAM PRIMARY CARE PHYSICIAN) Report Final Report: No growth of fungus Bone (Sacral) 02/07/2024 11: 30 AM TEAM PRIMARY CARE PHYSICIAN 02/07/2024 3:45 PM TEAM PRIMARY CARE PHYSICIAN Narrative [facility] - 03/06/2024 8:33 AM TEAM PRIMARY CARE PHYSICIAN Coccyx Bone Biopsy Testing performed by Microbiology Laboratory ([phone]). us Kassidy Pinzon MD LAB MICROBIOLOGY - GENERAL ORDERAB[place] [address] * Mycobacteriology (AFB) culture and acid-fast stain Bone Sacral (02/07/2024 11:30 AM TEAM PRIMARY CARE PHYSICIAN) Direct Specimen Exam Stain: No Acid-fast bacilli seen Report Final Report: No growth of acid-fast bacilli [facility] Bone (Sacral) 02/07/2024 11: 30 AM TEAM PRIMARY CARE PHYSICIAN 02/07/2024 3:07 PM TEAM PRIMARY CARE PHYSICIAN Narrative [facility] - 04/09/2024 9:27 AM TEAM PRIMARY CARE PHYSICIAN Coccyx Bone Biopsy Testing performed by Microbiology Laboratory ([phone]). us Carin Granados MD LAB MICROBIOLOGY - GENERA L ORDER[place] [address] * Mycobacteriology (AFB) culture and acid-fast stain Aspirate Sacral (02/07/2024 11:30 AM TEAM PRIMARY CARE PHYSICIAN) Direct Specimen Exam Stain: No Acid-fast bacilli seen Report Final Report: No growth of acid-fast bacilli [facility] Aspirate (Sacral) 02/07/2024 11:30 AM TEAM PRIMARY CARE PHYSICIAN 02/07/2024 3:09 PM TEAM PRIMARY CARE PHYSICIAN Narrative [facility] - 04/09/2024 9:27 AM TEAM PRIMARY CARE PHYSICIAN Coccyx Aspirate Testing performed by Microbiology Laboratory ([phone]). Carin Granados MD LAB MICROBIOLOGY - GENERA L ORDERABLES Final Result Performing Organization Address City/[facility]/ZIP Co de Phone Number [facility] Department [place] [address] * Aerobic and anaerobic culture and gram stain Aspirate Sacral (02/07/2024 11:30 AM TEAM PRIMARY CARE PHYSICIAN) Direct Specimen Exam Stain: Rare polymorphonuclear leukocytes seen. No organisms seen. Report Final Report: No growth [facility] Aspirate (Sacral) 02/07/2024 11:30 AM TEAM PRIMARY CARE PHYSICIAN 02/07/2024 3:09 PM TEAM PRIMARY CARE PHYSICIAN Narrative [facility] - 02/10/2024 12:52 PM TEAM PRIMARY CARE PHYSICIAN Coccyx Aspirate Testing performed by Microbiology Laboratory ([phone]) Specimens submitted from normally sterile body sites [...] L ORDERABLES Final Result Performing Organization Address City/[facility]/ZIP Co de Phone Number [facility] Department [email or web address] [address] * IR Biopsy Deep Bone (02/07/2024 11:29 AM TEAM PRIMARY CARE PHYSICIAN) Anatomical Region Laterality Modality Body N/A Computed Tomogra phy 02/07/2024 1:23 PM TEAM PRIMARY CARE PHYSICIAN Impressions 02/07/2024 5:11 PM TEAM PRIMARY CARE PHYSICIAN Coccygeal bone biopsy under CT guidance. The core specimens were sent to surgical pathology and microbiology. Aspirate was sent to microbiology. Dictated by: Craig Sheppard M.D. The radiology attending physician has personally reviewed this study, and had reviewed and/or edited this written report and agrees with it. 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 Jorge Carolina MD, PHD, the attending radiologist, was present from the beginning to the end of the procedure. Dr. Ness (vice president pharmacy) was present and participated in the procedure. [...] was obtained. Prior to beginning the procedure, [place] Protocol was performed to confirm the patient's [...] the end of the procedure. Dr. Ness (vice president pharmacy) was present and participated in the procedure. [...] was obtained. Prior to beginning the procedure, [place] Protocol was performed to confirm the patient's [...] esult * Surgical pathology (02/07/2024 11:15 AM TEAM PRIMARY CARE PHYSICIAN) Bone biopsy, metabolic disease 02/07/2024 11:15 AM TEAM PRIMARY CARE PHYSICIAN 02/07/2024 2:18 PM TEAM PRIMARY CARE PHYSICIAN Narrative 02/09/2024 10:35 AM TEAM PRIMARY CARE PHYSICIAN EPIC results best viewed via link to PDF [facility] Delilah [facility] [place] [address] Note to Patients: This report may contain [...] Gender: F : 1985 (Age: 38) Address: [address] [place] [address] Hospital #: [id number] Taken:02/07/2024 Received:02/07/2024 Reported: 02/09/2024 Patient Type: [facility] Inpatient Service: Medical Location: [place] [address] Physician(s): Jorge Carolina M.D. Barbara Oliva MD [...] Surgical Pathology and Flow Cytometry Departments at as part of an ongoing housing quality standard inspector program and in compliance with federally mandated [...] Surgical Pathology and Flow Cytometry Departments of . It has not been cleared or approved by the U. S. Food and Drug Administration. IMAGES AND SCANNED DOCUMENTS, IF INCLUDED, ONLY VIEWABLE IN PDF VERSION OF REPORT Jorge Carolina MD PhD LAB PATHOLOGY ORDER [place] Final Result * POCT glucose (02/07/2024 8:36 AM TEAM PRIMARY CARE PHYSICIAN) Glucose, POC 79 70 - 199 mg/dL Blood 02/07/2024 8:36 AM TEAM PRIMARY CARE PHYSICIAN 02/07/2024 8:36 AM TEAM PRIMARY CARE PHYSICIAN Kassidy Pinzon MD LAB POCT ORDERABLES - DEVIC E Final Result Performing Organization Address [facility] Co de Phone Number [facility] [email or web address] [address] * POCT glucose (02/07/2024 7:46 AM TEAM PRIMARY CARE PHYSICIAN) [facility] Glucose, POC 83 70 - 199 mg/dL Blood 02/07/2024 7:46 AM TEAM PRIMARY CARE PHYSICIAN 02/07/2024 7:46 AM TEAM PRIMARY CARE PHYSICIAN Kassidy Pinzon MD LAB POCT ORDERABLES - DEVIC E Final Result Performing Organization Address [facility] de Phone Number [facility] [email or web address] [address] * (ABNORMAL) Vancomycin level trough Draw trough 30 minutes prior to 4th dose. (02/07/2024 2:37 AM TEAM PRIMARY CARE PHYSICIAN) [facility] Vancomycin trough 24.3(H) 10.0 - 20.0 mcg/mL Blood 02/07/2024 2:37 AM TEAM PRIMARY CARE PHYSICIAN 02/07/2024 3:13 AM TEAM PRIMARY CARE PHYSICIAN Narrative [facility] - 02/07/2024 3:44 AM TEAM PRIMARY CARE PHYSICIAN Draw trough 30 minutes prior to 4th dose. Carin Granados MD LAB BLOOD ORDERABLES Tete l Result Performing Organization Address [facility] [place] [address] * eGFR (02/06/2024 9:36 PM TEAM PRIMARY CARE PHYSICIAN) [facility] eGFR 71 >=60 mL/min/1. 73 m2 [...] last reviewed 2021. Blood 02/06/2024 9:36 PM TEAM PRIMARY CARE PHYSICIAN 02/06/2024 11:02 PM TEAM PRIMARY CARE PHYSICIAN Carin Granados MD LAB BLOOD ORDERABLES Tete palomino Result [facility] Department [place] [address] * Differential, auto (02/06/2024 9:36 PM TEAM PRIMARY CARE PHYSICIAN) Pathologist [facility] Neutrophil abs 3.8 1.5 - 6.5 K/cumm Imm gran abs 0.0 0.0 - 0.1 K/cumm [facility] Lymphocyte abs 0.9 0.8 - 3.3 K/cumm [facility] Monocyte abs 0.6 0.2 - 0.8 K/cumm [facility] Eosinophil abs 0.3 0.0 - 0.5 K/cumm [facility] Basophil abs 0.0 0.0 - 0.1 K/cumm [facility] Neutrophil pct 68.0 % [facility] Comment: Interpretive Data Percent cell [...] on 2017. Lymphocyte pct 16.0 % [facility] Comment: Interpretive Data Percent cell count reference ranges are not reported, since discordance with absolute values may lead to misinterpretation of CBC data. Current Interpretive Data was last revised on 2017. Monocyte pct 10.8 % [facility] Comment: Interpretive Data Percent cell count reference ranges are not reported, since discordance with absolute values may lead to misinterpretation of CBC data. Current Interpretive Data was last revised on 2017. Eosinophil pct 4.8 % [facility] Comment: Interpretive Data Percent cell count reference ranges are not reported, since discordance with absolute values may lead to misinterpretation of CBC data. Current Interpretive Data was last revised on 2017. Basophil pct 0.2 % [facility] Comment: Interpretive Data Percent cell count reference ranges are not reported, since discordance with absolute values may lead to misinterpretation of CBC data. Current Interpretive Data was last revised on 2017. Blood 02/06/2024 9:36 PM TEAM PRIMARY CARE PHYSICIAN 02/06/2024 11:03 PM TEAM PRIMARY CARE PHYSICIAN us Carin Granados MD LAB BLOOD ORDERABLES Tete palomino Result [facility] Department [place] [address] * (ABNORMAL) CBC with auto differential (02/06/2024 9:36 PM TEAM PRIMARY CARE PHYSICIAN) WBC 5.6 3.8 - 9.9 K/cumm Hgb 8.1(L) 11.9 - 15.5 g/dL [facility] Hct 25.1(L) 35.6 - 45.5 % [facility] Plt 226 150 - 400 K/cumm [facility] MPV 9.6 9.1 - 12.3 fL [facility] RBC 3.03(L) 3.90 - 5.20 M/cumm [facility] MCV 82.8 81.3 - 96.4 fL [facility] MCH 26.7(L) 27.1 - 33.3 pg [facility] MCHC 32.3 32.3 - 35.7 g/dL [facility] RDW CV 13.5 11.1 - 14.9 % [facility] RDW SD 41.0 35.7 - 48.1 fL [facility] NRBC abs 0.00 0.00 - 0.01 K/cumm [facility] Blood 02/06/2024 9:36 PM TEAM PRIMARY CARE PHYSICIAN 02/06/2024 11:03 PM TEAM PRIMARY CARE PHYSICIAN Carin Granados MD LAB BLOOD ORDERABLES Tete l Result Performing Organization Address City/[facility] Co de Phone Number [facility] Department [place] [address] * Phosphorus (02/06/2024 9:36 PM TEAM PRIMARY CARE PHYSICIAN) Phosphorus, pl 4.5 2.3 - 4.5 mg/dL Blood 02/06/2024 9:36 PM TEAM PRIMARY CARE PHYSICIAN 02/06/2024 11:02 PM TEAM PRIMARY CARE PHYSICIAN Carin Granados MD LAB BLOOD ORDERABLES Tete l Result Performing Organization Address City/[facility]/ZIP Co de Phone Number [facility] Department [place] [address] * Magnesium (02/06/2024 9:36 PM TEAM PRIMARY CARE PHYSICIAN) Magnesium 2.1 1.4 - 2.5 mg/dL Blood 02/06/2024 9:36 PM TEAM PRIMARY CARE PHYSICIAN 02/06/2024 11:02 PM TEAM PRIMARY CARE PHYSICIAN Carin Granados MD LAB BLOOD ORDERABLES Tete l Result Performing Organization Address City/[facility]/ZIP Co de Phone Number [facility] Department [place] [address] * (ABNORMAL) Hepatic function panel (02/06/2024 9:36 PM TEAM PRIMARY CARE PHYSICIAN) [facility] Bilirubin, total 1.0 0.1 - 1.2 mg/dL Bilirubin, direct 0.3 0.1 - 0.3 mg/dL [facility] Protein, pl 6.9 6.5 - 8.5 g/dL [facility] Albumin 2.8(L) 3.5 - 5.0 g/dL [facility] Alk phos 316(H) 40 - 130 Units/L [facility] ALT 30 7 - 45 Units/L [facility] AST 80(H) 10 - 45 Units/L [facility] Blood 02/06/2024 9:36 PM TEAM PRIMARY CARE PHYSICIAN 02/06/2024 11:02 PM TEAM PRIMARY CARE PHYSICIAN Carin Granados MD LAB BLOOD ORDERABLES Tete l Result [facility] Department [place] [address] * Basic metabolic panel (02/06/2024 9:36 PM TEAM PRIMARY CARE PHYSICIAN) [facility] Sodium 135 135 - 145 mmol/L Potassium, pl 4.9 3.3 - 4.9 mmol/L [facility] Chloride 100 97 - 110 mmol/L [facility] CO2 31 22 - 32 mmol/L [facility] Anion gap 4 2 - 15 mmol/L [facility] BUN 24 6 - 25 mg/dL [facility] Creatinine 1.04 0.60 - 1.10 mg/dL [facility] Glucose 83 70 - 199 mg/dL [facility] Comment: Interpretive Data Fasting glucose [...] Calcium 9.0 8.5 - 10.3 mg/dL [facility] Blood 02/06/2024 9:36 PM TEAM PRIMARY CARE PHYSICIAN 02/06/2024 11:02 PM TEAM PRIMARY CARE PHYSICIAN Carin Granados MD LAB BLOOD ORDERABLES Tete l Result [facility] [email or web address] [address] * POCT glucose (02/06/2024 9:32 PM TEAM PRIMARY CARE PHYSICIAN) Glucose, POC 111 70 - 199 mg/dL Blood 02/06/2024 9:32 PM TEAM PRIMARY CARE PHYSICIAN 02/06/2024 9:32 PM TEAM PRIMARY CARE PHYSICIAN Carin Granados MD LAB POCT ORDERABLES - DEV ICE Final Result Performing Organization Address City/[facility]/ZIP Co de Phone Number [facility] [email or web address] [address] * POCT glucose (02/06/2024 5:33 PM TEAM PRIMARY CARE PHYSICIAN) Glucose, POC 90 70 - 199 mg/dL Blood 02/06/2024 5:33 PM TEAM PRIMARY CARE PHYSICIAN 02/06/2024 5:33 PM TEAM PRIMARY CARE PHYSICIAN Carin Granados MD LAB POCT ORDERABLES - DEV ICE Final Result Performing Organization Address City/[facility] Co de Phone Number [facility] [email or web address] [address] * POCT glucose (02/06/2024 11:52 AM TEAM PRIMARY CARE PHYSICIAN) Glucose, POC 104 70 - 199 mg/dL Blood 02/06/2024 11:5 2 AM TEAM PRIMARY CARE PHYSICIAN 02/06/2024 11:52 AM TEAM PRIMARY CARE PHYSICIAN us Carin Granados MD LAB POCT ORDERABLES - DEV ICE Final Result Performing Organization Address [facility] de Phone Number [facility] [email or web address] [address] * POCT glucose (02/06/2024 8:16 AM TEAM PRIMARY CARE PHYSICIAN) Pathologist [facility] Glucose, POC 89 70 - 199 mg/dL Blood 02/06/2024 8:16 AM TEAM PRIMARY CARE PHYSICIAN 02/06/2024 8:16 AM TEAM PRIMARY CARE PHYSICIAN us Carin Granados MD LAB POCT ORDERABLES - DEV ICE Final Result Performing Organization Address [facility] [place] [address] * Troponin I high-sensitivity series (baseline, 2hr, 4hr, 6hr) (02/06/2024 6:53 AM TEAM PRIMARY CARE PHYSICIAN) [facility] Trop I hs <4 <=17 ng/L Comment: Interpretive Data For further hscTnI resources including the diagnostic algorithm and an aid in interpretation, copy and paste this link: [email or web address] Current Interpretive Data last revised 2019. Blood 02/06/2024 6:53 AM TEAM PRIMARY CARE PHYSICIAN 02/06/2024 7:52 AM TEAM PRIMARY CARE PHYSICIAN us Herrera Orosco MD LAB BLOOD ORDERABLES Final Resu lt Performing Organization Address [facility] [place] [address] * eGFR (02/05/2024 10:32 PM TEAM PRIMARY CARE PHYSICIAN) [facility] eGFR 67 >=60 mL/min/1. 73 m2 [...] reviewed 2021. Blood 02/05/2024 10:3 2 PM TEAM PRIMARY CARE PHYSICIAN 02/05/2024 11:39 PM TEAM PRIMARY CARE PHYSICIAN us Carin Granados MD LAB BLOOD ORDERABLES Tete palomino Result [facility] Department [place] [address] * Differential, auto (02/05/2024 10:32 PM TEAM PRIMARY CARE PHYSICIAN) Neutrophil abs 4.1 1.5 - 6.5 K/cumm Imm gran abs 0.0 0.0 - 0.1 K/cumm [facility] Lymphocyte abs 0.9 0.8 - 3.3 K/cumm [facility] Monocyte abs 0.8 0.2 - 0.8 K/cumm [facility] Eosinophil abs 0.3 0.0 - 0.5 K/cumm [facility] Basophil abs 0.0 0.0 - 0.1 K/cumm [facility] Neutrophil pct 67.2 % [facility] Comment: Interpretive Data Percent cell count reference ranges are not reported, since discordance with absolute values may lead to misinterpretation of CBC data. Current Interpretive Data was last revised on 2017. Imm gran pct 0.3 % [facility] Comment: Interpretive Data Percent cell count reference ranges are not reported, since discordance with absolute values may lead to misinterpretation of CBC data. Current Interpretive Data was last revised on 2017. Lymphocyte pct 15.0 % [facility] Comment: Interpretive Data Percent cell count reference ranges are not reported, since discordance with absolute values may lead to misinterpretation of CBC data. Current Interpretive Data was last revised on 2017. Monocyte pct 12.3 % [facility] Comment: Interpretive Data Percent cell count reference ranges are not reported, since discordance with absolute values may lead to misinterpretation of CBC data. Current Interpretive Data was last revised on 2017. Eosinophil pct 4.9 % [facility] Comment: Interpretive Data Percent cell count reference ranges are not reported, since discordance with absolute values may lead to misinterpretation of CBC data. Current Interpretive Data was last revised on 2017. Basophil pct 0.3 % [facility] Comment: Interpretive Data Percent cell count reference ranges are not reported, since discordance with absolute values may lead to misinterpretation of CBC data. Current Interpretive Data was last revised on 2017. Blood 02/05/2024 10:3 2 PM TEAM PRIMARY CARE PHYSICIAN 02/05/2024 11:27 PM TEAM PRIMARY CARE PHYSICIAN us Carin Granados MD LAB BLOOD ORDERABLES Tete palomino Result [facility] Department [place] [address] * (ABNORMAL) CBC with auto differential (02/05/2024 10:32 PM TEAM PRIMARY CARE PHYSICIAN) WBC 6.1 3.8 - 9.9 K/cumm Hgb 7.7(L) 11.9 - 15.5 g/dL [facility] Hct 24.4(L) 35.6 - 45.5 % [facility] Plt 228 150 - 400 K/cumm [facility] MPV 9.8 9.1 - 12.3 fL [facility] RBC 2.94(L) 3.90 - 5.20 M/cumm [facility] MCV 83.0 81.3 - 96.4 fL [facility] MCH 26.2(L) 27.1 - 33.3 pg [facility] MCHC 31.6(L) 32.3 - 35.7 g/dL [facility] RDW CV 13.8 11.1 - 14.9 % [facility] RDW SD 42.0 35.7 - 48.1 fL [facility] NRBC abs 0.00 0.00 - 0.01 K/cumm [facility] Blood 02/05/2024 10:3 2 PM TEAM PRIMARY CARE PHYSICIAN 02/05/2024 11:27 PM TEAM PRIMARY CARE PHYSICIAN Carin Granados MD LAB BLOOD ORDERABLES Tete l Result Performing Organization Address [facility] de Phone Number [facility] Department [place] [address] * Phosphorus (02/05/2024 10:32 PM TEAM PRIMARY CARE PHYSICIAN) Phosphorus, pl 3.9 2.3 - 4.5 mg/dL Blood 02/05/2024 10:3 2 PM TEAM PRIMARY CARE PHYSICIAN 02/05/2024 11:39 PM TEAM PRIMARY CARE PHYSICIAN Result [facility] Carin Granados MD LAB BLOOD ORDERABLES Tete l Result Performing Organization Address [facility] de Phone Number [facility] Department [place] [address] * Magnesium (02/05/2024 10:32 PM TEAM PRIMARY CARE PHYSICIAN) Magnesium 2.5 1.4 - 2.5 mg/dL Blood 02/05/2024 10:3 2 PM TEAM PRIMARY CARE PHYSICIAN 02/05/2024 11:39 PM TEAM PRIMARY CARE PHYSICIAN Carin Granados MD LAB BLOOD ORDERABLES Tete l Result Performing Organization Address [facility] Co de Phone Number [facility] Department [place] [address] * (ABNORMAL) Hepatic function panel (02/05/2024 10:32 PM TEAM PRIMARY CARE PHYSICIAN) [facility] Bilirubin, total 0.8 0.1 - 1.2 mg/dL Bilirubin, direct 0.3 0.1 - 0.3 mg/dL [facility] Protein, pl 6.6 6.5 - 8.5 g/dL [facility] Albumin 2.7(L) 3.5 - 5.0 g/dL [facility] Alk phos 288(H) 40 - 130 Units/L [facility] ALT 25 7 - 45 Units/L [facility] AST 65(H) 10 - 45 Units/L [facility] Blood 02/05/2024 10:3 2 PM TEAM PRIMARY CARE PHYSICIAN 02/05/2024 11:39 PM TEAM PRIMARY CARE PHYSICIAN Carin Granados MD LAB BLOOD ORDERABLES Tete l Result Performing Organization Address City/[facility]/ZIP Co de Phone Number [facility] Department [place] [address] * (ABNORMAL) Basic metabolic panel (02/05/2024 10:32 PM TEAM PRIMARY CARE PHYSICIAN) [facility] Sodium 139 135 - 145 mmol/L Potassium, pl 5.4(H) 3.3 - 4.9 mmol/L [facility] Chloride 101 97 - 110 mmol/L [facility] CO2 30 22 - 32 mmol/L [facility] Anion gap 8 2 - 15 mmol/L [facility] BUN 30(H) 6 - 25 mg/dL [facility] Creatinine 1.08 0.60 - 1.10 mg/dL [facility] Glucose 125 70 - 199 mg/dL [facility] Comment: Interpretive Data Fasting glucose [...] Calcium 8.9 8.5 - 10.3 mg/dL [facility] Blood 02/05/2024 10:3 2 PM TEAM PRIMARY CARE PHYSICIAN 02/05/2024 11:39 PM TEAM PRIMARY CARE PHYSICIAN Carin Granados MD LAB BLOOD ORDERABLES Tete l Result Performing Organization Address City/[facility]/ZIP Co de Phone Number [facility] Department [email or web address] [address] * POCT glucose (02/05/2024 9:13 PM TEAM PRIMARY CARE PHYSICIAN) Glucose, POC 171 70 - 199 mg/dL Blood 02/05/2024 9:13 PM TEAM PRIMARY CARE PHYSICIAN 02/05/2024 9:13 PM TEAM PRIMARY CARE PHYSICIAN Carin Granados MD LAB POCT ORDERABLES - DEV ICE Final Result Performing Organization Address [facility] Co de Phone Number [facility] Department [place] [address] * POCT glucose (02/05/2024 5:38 PM TEAM PRIMARY CARE PHYSICIAN) Glucose, POC 149 70 - 199 mg/dL Blood 02/05/2024 5:38 PM TEAM PRIMARY CARE PHYSICIAN 02/05/2024 5:38 PM TEAM PRIMARY CARE PHYSICIAN Carin Granados MD LAB POCT ORDERABLES - DEV ICE Final Result [facility] Department [place] [address] * Blood culture Blood (02/05/2024 3:25 PM TEAM PRIMARY CARE PHYSICIAN) Report Final Report: No growth Blood 02/05/2024 3:25 PM TEAM PRIMARY CARE PHYSICIAN 02/05/2024 4:30 PM TEAM PRIMARY CARE PHYSICIAN Narrative [facility] - 02/10/2024 7:00 AM TEAM PRIMARY CARE PHYSICIAN Collection->Peripheral 1. Blood cultures are incubated for [...] organism identification may be performed using the [employer] Gram-Positive Blood Culture Assay. This assay detects microbial DNA in positive blood culture broth via hybridization of target DNA to capture oligonucleotides on a microarray. This assay has been cleared by the [place] Food and Drug Administration and its performance characteristics have been verified by the Microbiology Laboratory. 5. For questions about this culture, contact the Microbiology Laboratory at [phone]. Interpretive data was last revised on 2019. Carin Granados MD LAB MICROBIOLOGY - GENERA L ORDERABLES Final Result [facility] Department [place] [address] * Blood culture Blood (02/05/2024 3:25 PM TEAM PRIMARY CARE PHYSICIAN) Report Final Report: No growth Blood 02/05/2024 3:25 PM TEAM PRIMARY CARE PHYSICIAN 02/05/2024 4:30 PM TEAM PRIMARY CARE PHYSICIAN Narrative [facility] - 02/10/2024 7:00 AM TEAM PRIMARY CARE PHYSICIAN Collection->Peripheral 1. Blood cultures are incubated for [...] organism identification may be performed using the [employer] Gram-Positive Blood Culture Assay. This assay detects microbial DNA in positive blood culture broth via hybridization of target DNA to capture oligonucleotides on a microarray. This assay has been cleared by the [place] Food and Drug Administration and its performance characteristics have been verified by the Microbiology Laboratory. 5. For questions about this culture, contact the Microbiology Laboratory at [phone]. Interpretive data was last revised on 2019. Carin Granados MD LAB MICROBIOLOGY - GENERA L ORDERABLES Final Result Performing Organization Address [facility] Co de Phone Number [facility] Department [place] [address] * POCT glucose (02/05/2024 2:10 PM TEAM PRIMARY CARE PHYSICIAN) Glucose, POC 170 70 - 199 mg/dL Blood 02/05/2024 2:10 PM TEAM PRIMARY CARE PHYSICIAN 02/05/2024 2:10 PM TEAM PRIMARY CARE PHYSICIAN Carin Granados MD LAB POCT ORDERABLES - DEV ICE Final Result Performing Organization Address [facility] Co de Phone Number [facility] Department [place] [address] * POCT glucose (02/05/2024 9:18 AM TEAM PRIMARY CARE PHYSICIAN) Glucose, POC 88 70 - 199 mg/dL Blood 02/05/2024 9:18 AM TEAM PRIMARY CARE PHYSICIAN 02/05/2024 9:18 AM TEAM PRIMARY CARE PHYSICIAN us Carin Granados MD LAB POCT ORDERABLES - DEV ICE Final Result Performing Organization Address City/State/[facility] Co de Phone Number [facility] Department [place] [address] * Wound Care (02/05/2024 8:16 AM TEAM PRIMARY CARE PHYSICIAN) Narrative Sari Santos DO - 02/05/2024 8:16 AM TEAM PRIMARY CARE PHYSICIAN Andrew Seaman MD 02/05/2024 8:21 AM Wound Care Date/Time: 02/05/2024 8:16 AM Performed by: Andrew Seaman MD Authorized by: Adnrew Seaman MD Associated wounds: Wound 12/04/23 Pressure Injury Sacrum Consent: Consent obtained: Verbal Consent given by: Patient Risks, benefits, and alternatives were discussed: yes Risks discussed: Bleeding and infection Alternatives discussed: No treatment [place] protocol: Procedure explained and questions answered to [...] (ABNORMAL) Potassium, whole blood (02/05/2024 8:08 AM TEAM PRIMARY CARE PHYSICIAN) Potassium, bld 5.4(H) 3.3 - 4.9 mmol/L Blood 02/05/2024 8:08 AM TEAM PRIMARY CARE PHYSICIAN 02/05/2024 8:48 AM TEAM PRIMARY CARE PHYSICIAN Ashkan Reyes MD LAB BLOOD ORDERABLES Final Result Performing Organization Address City/[facility]/ZIP Co de Phone Number [facility] Department [place] [address] * (ABNORMAL) Potassium (02/05/2024 7:45 AM TEAM PRIMARY CARE PHYSICIAN) Potassium, pl 5.2(H) 3.3 - 4.9 mmol/L Blood 02/05/2024 7:45 AM TEAM PRIMARY CARE PHYSICIAN 02/05/2024 8:12 AM TEAM PRIMARY CARE PHYSICIAN Narrative [facility] - 02/05/2024 8:32 AM TEAM PRIMARY CARE PHYSICIAN Provider to discontinue after two normal results. Ashkan Reyes MD LAB BLOOD ORDERABLES Final Result Performing Organization Address City/[facility] Co de Phone Number [facility] Department [place] [address] * POCT glucose (02/05/2024 6:00 AM TEAM PRIMARY CARE PHYSICIAN) Glucose, POC 124 70 - 199 mg/dL Blood 02/05/2024 6:00 AM TEAM PRIMARY CARE PHYSICIAN 02/05/2024 6:00 AM TEAM PRIMARY CARE PHYSICIAN Carin Granados MD LAB POCT ORDERABLES - DEV ICE Final Result Performing Organization Address City/[facility] Co de Phone Number [facility] [place] [address] * POCT glucose (02/05/2024 5:04 AM TEAM PRIMARY CARE PHYSICIAN) Glucose, POC 119 70 - 199 mg/dL Blood 02/05/2024 5:04 AM TEAM PRIMARY CARE PHYSICIAN 02/05/2024 5:04 AM TEAM PRIMARY CARE PHYSICIAN us Carin Granados MD LAB POCT ORDERABLES - DEV ICE Final Result Performing Organization Address [facility] de Phone Number [facility] [place] [address] * POCT glucose (02/05/2024 4:11 AM TEAM PRIMARY CARE PHYSICIAN) Glucose, POC 105 70 - 199 mg/dL Blood 02/05/2024 4:11 AM TEAM PRIMARY CARE PHYSICIAN 02/05/2024 4:11 AM TEAM PRIMARY CARE PHYSICIAN Carin Granados MD LAB POCT ORDERABLES - DEV ICE Final Result Performing Organization Address [facility] de Phone Number [facility] [place] [address] * ECG 12 lead (02/05/2024 3:22 AM TEAM PRIMARY CARE PHYSICIAN) Ventricular Rate EKG/Min 101 BPM [facility] Atrial Rate 101 BPM [facility] VT-Interval (MSEC) 148 ms [facility] QRS-Interval (MSEC) 82 ms [facility] QT-Interval (MSEC) 338 ms [facility] QTc 438 ms [facility] P [place] 67 degrees [facility] R [place] 21 degrees [facility] T [place] 48 degrees [facility] Diagnosis Sinus tachycardia Otherwise normal ECG When compared with ECG of 21-JAN-2024 15:37, T wave amplitude has increased in Anterior leads Confirmed by KIRSTIN GIVENS M.D ([id number]) on 02/09/2024 11:54:39 AM [facility] 02/05/2024 3:22 AM TEAM PRIMARY CARE PHYSICIAN 02/09/2024 11:54 AM TEAM PRIMARY CARE PHYSICIAN Ashkan Reyes MD ECG ORDERABLES Final Resu lt Performing Organization Address City/[facility]/ZIP Co de Phone Number [facility] * eGFR (02/04/2024 9:38 PM TEAM PRIMARY CARE PHYSICIAN) eGFR 66 >=60 mL/min/1. 73 m2 Comment: [...] last reviewed 2021. Blood 02/04/2024 9:38 PM TEAM PRIMARY CARE PHYSICIAN 02/04/2024 11:21 PM TEAM PRIMARY CARE PHYSICIAN us Carin Granados MD LAB BLOOD ORDERABLES Tete l Result Performing Organization Address City/[facility] Co de Phone Number [facility] Department [place] [address] * Differential, auto (02/04/2024 9:38 PM TEAM PRIMARY CARE PHYSICIAN) Neutrophil abs 6.2 1.5 - 6.5 K/cumm Imm gran abs 0.1 0.0 - 0.1 K/cumm [facility] Lymphocyte abs 0.9 0.8 - 3.3 K/cumm [facility] Monocyte abs 0.8 0.2 - 0.8 K/cumm [facility] Eosinophil abs 0.4 0.0 - 0.5 K/cumm [facility] Basophil abs 0.0 0.0 - 0.1 K/cumm [facility] Neutrophil pct 74.5 % [facility] Comment: Interpretive Data Percent cell count reference ranges are not reported, since discordance with absolute values may lead to misinterpretation of CBC data. Current Interpretive Data was last revised on 2017. Imm gran pct 0.6 % [facility] Comment: Interpretive Data Percent cell count reference ranges are not reported, since discordance with absolute values may lead to misinterpretation of CBC data. Current Interpretive Data was last revised on 2017. Lymphocyte pct 10.9 % [facility] Comment: Interpretive Data Percent cell count reference ranges are not reported, since discordance with absolute values may lead to misinterpretation of CBC data. Current Interpretive Data was last revised on 2017. Monocyte pct 9.2 % [facility] Comment: Interpretive Data Percent cell count reference ranges are not reported, since discordance with absolute values may lead to misinterpretation of CBC data. Current Interpretive Data was last revised on 2017. Eosinophil pct 4.4 % [facility] Comment: Interpretive Data Percent cell count reference ranges are not reported, since discordance with absolute values may lead to misinterpretation of CBC data. Current Interpretive Data was last revised on 2017. Basophil pct 0.4 % [facility] Comment: Interpretive Data Percent cell count reference ranges are not reported, since discordance with absolute values may lead to misinterpretation of CBC data. Current Interpretive Data was last revised on 2017. Blood 02/04/2024 9:38 PM TEAM PRIMARY CARE PHYSICIAN 02/04/2024 11:22 PM TEAM PRIMARY CARE PHYSICIAN us Carin Granados MD LAB BLOOD ORDERABLES Tete palomino Result [facility] Department [place] [address] * (ABNORMAL) CBC with auto differential (02/04/2024 9:38 PM TEAM PRIMARY CARE PHYSICIAN) WBC 8.3 3.8 - 9.9 K/cumm Hgb 7.9(L) 11.9 - 15.5 g/dL [facility] Hct 25.1(L) 35.6 - 45.5 % [facility] Plt 252 150 - 400 K/cumm [facility] MPV 10.4 9.1 - 12.3 fL [facility] RBC 2.97(L) 3.90 - 5.20 M/cumm [facility] MCV 84.5 81.3 - 96.4 fL [facility] MCH 26.6(L) 27.1 - 33.3 pg [facility] MCHC 31.5(L) 32.3 - 35.7 g/dL [facility] RDW CV 14.1 11.1 - 14.9 % [facility] RDW SD 43.5 35.7 - 48.1 fL [facility] NRBC abs 0.00 0.00 - 0.01 K/cumm [facility] Blood 02/04/2024 9:38 PM TEAM PRIMARY CARE PHYSICIAN 02/04/2024 11:22 PM TEAM PRIMARY CARE PHYSICIAN Carin Granados MD LAB BLOOD ORDERABLES Tete l Result [facility] Department of [email or web address] [place], [place] [id number] * Phosphorus (02/04/2024 9:38 PM TEAM PRIMARY CARE PHYSICIAN) Pathologist [facility] Phosphorus, pl 3.4 2.3 - 4.5 mg/dL Blood 02/04/2024 9:38 PM TEAM PRIMARY CARE PHYSICIAN 02/04/2024 11:21 PM TEAM PRIMARY CARE PHYSICIAN Carin Granados MD LAB BLOOD ORDERABLES Tete l Result [facility] [email or web address] [address] * (ABNORMAL) Magnesium (02/04/2024 9:38 PM TEAM PRIMARY CARE PHYSICIAN) Magnesium 2.6(H) 1.4 - 2.5 mg/dL Blood 02/04/2024 9:38 PM TEAM PRIMARY CARE PHYSICIAN 02/04/2024 11:21 PM TEAM PRIMARY CARE PHYSICIAN us Carin Granados MD LAB BLOOD ORDERABLES Tete l Result Performing Organization Address [facility] Co de Phone Number [facility] [place] [address] * (ABNORMAL) Hepatic function panel (02/04/2024 9:38 PM TEAM PRIMARY CARE PHYSICIAN) Pathologist [facility] Bilirubin, total 0.8 0.1 - 1.2 mg/dL Bilirubin, direct 0.2 0.1 - 0.3 mg/dL [facility] Comment:Reviewed Protein, pl 6.6 6.5 - 8.5 g/dL [facility] Albumin 2.5(L) 3.5 - 5.0 g/dL [facility] Alk phos 268(H) 40 - 130 Units/L [facility] ALT 17 7 - 45 Units/L [facility] AST 61(H) 10 - 45 Units/L [facility] Blood 02/04/2024 9:38 PM TEAM PRIMARY CARE PHYSICIAN 02/04/2024 11:21 PM TEAM PRIMARY CARE PHYSICIAN us Carin Granados MD LAB BLOOD ORDERABLES Tete l Result Performing Organization Address [facility] de Phone Number [facility] Department [place] [address] * (ABNORMAL) Basic metabolic panel (02/04/2024 9:38 PM TEAM PRIMARY CARE PHYSICIAN) Pathologist [facility] Sodium 137 135 - 145 mmol/L Potassium, pl 5.9(H) 3.3 - 4.9 mmol/L [facility] Chloride 103 97 - 110 mmol/L [facility] CO2 28 22 - 32 mmol/L [facility] Anion gap 6 2 - 15 mmol/L [facility] BUN 35(H) 6 - 25 mg/dL [facility] Creatinine 1.10 0.60 - 1.10 mg/dL [facility] Glucose 92 70 - 199 mg/dL [facility] Comment: Interpretive Data Fasting glucose [...] Calcium 8.5 8.5 - 10.3 mg/dL [facility] Blood 02/04/2024 9:38 PM TEAM PRIMARY CARE PHYSICIAN 02/04/2024 11:21 PM TEAM PRIMARY CARE PHYSICIAN Carin Granados MD LAB BLOOD ORDERABLES Tete l Result Performing Organization Address [facility] de Phone Number [facility] Department [place] [address] * POCT glucose (02/04/2024 9:04 PM TEAM PRIMARY CARE PHYSICIAN) Glucose, POC 105 70 - 199 mg/dL Blood 02/04/2024 9:04 PM TEAM PRIMARY CARE PHYSICIAN 02/04/2024 9:04 PM TEAM PRIMARY CARE PHYSICIAN Result [facility] Carin Granados MD LAB POCT ORDERABLES - DEV ICE Final Result Performing Organization Address [facility] de Phone Number [facility] Department [email or web address] [address] * POCT glucose (02/04/2024 5:12 PM TEAM PRIMARY CARE PHYSICIAN) Glucose, POC 108 70 - 199 mg/dL Blood 02/04/2024 5:12 PM TEAM PRIMARY CARE PHYSICIAN 02/04/2024 5:12 PM TEAM PRIMARY CARE PHYSICIAN Carin Granados MD LAB POCT ORDERABLES - DEV ICE Final Result Performing Organization Address [facility] de Phone Number [facility] [email or web address] [address] * POCT glucose (02/04/2024 11:56 AM TEAM PRIMARY CARE PHYSICIAN) Glucose, POC 104 70 - 199 mg/dL Blood 02/04/2024 11:5 6 AM TEAM PRIMARY CARE PHYSICIAN 02/04/2024 11:56 AM TEAM PRIMARY CARE PHYSICIAN Carin Granados MD LAB POCT ORDERABLES - DEV ICE Final Result Performing Organization Address [facility] [place] [address] * (ABNORMAL) Hemoglobin and hematocrit (02/04/2024 11:16 AM TEAM PRIMARY CARE PHYSICIAN) Pathologist [facility] Hgb 7.8(L) 11.9 - 15.5 g/dL Hct 24.2(L) 35.6 - 45.5 % [facility] Blood 02/04/2024 11:1 6 AM TEAM PRIMARY CARE PHYSICIAN 02/04/2024 12:15 PM TEAM PRIMARY CARE PHYSICIAN Carin Granados MD LAB BLOOD ORDERABLES Tete l Result Performing Organization Address [facility] [place] [address] * MRI Sacrum Coccyx WO Contrast (02/04/2024 10:53 AM TEAM PRIMARY CARE PHYSICIAN) Anatomical Region Laterality Modality Pelvis N/A Magnetic Resonan ce 02/04/2024 1:34 PM TEAM PRIMARY CARE PHYSICIAN Impressions 02/04/2024 2:11 PM TEAM PRIMARY CARE PHYSICIAN 1. 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 2. 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 Dictated by: Patric Schmitt D.O. The radiology attending physician has personally reviewed this study, and had reviewed and/or edited this written report and agrees with it. Electronically signed by: Jayme Page M.D. Narrative 02/04/2024 2:11 PM TEAM PRIMARY CARE PHYSICIAN EXAMINATION: MRI SACRUM COCCYX WO CONTRAST HISTORY: [...] Result * Transfuse RBC (02/04/2024 7:44 AM TEAM PRIMARY CARE PHYSICIAN) Blood Mariano Eid MD BLOOD TRANSFUSION ORDERABLES F inal Result Performing Organization Address [facility] de Phone Number [facility] Department [email or web address] [address] * POCT glucose (02/04/2024 7:44 AM TEAM PRIMARY CARE PHYSICIAN) Glucose, POC 107 70 - 199 mg/dL Blood 02/04/2024 7:44 AM TEAM PRIMARY CARE PHYSICIAN 02/04/2024 7:44 AM TEAM PRIMARY CARE PHYSICIAN Carin Granados MD LAB POCT ORDERABLES - DEV ICE Final Result Performing Organization Address [facility] de Phone Number [facility] Department [email or web address] [address] * Type and screen (02/04/2024 1:27 AM TEAM PRIMARY CARE PHYSICIAN) ABO Rh O Positive Ruiz, indirect Negative [facility] Blood 02/04/2024 1:27 AM TEAM PRIMARY CARE PHYSICIAN 02/04/2024 2:20 AM TEAM PRIMARY CARE PHYSICIAN [facility]ative [facility] 02/04/2024 3:56 AM TEAM PRIMARY CARE PHYSICIAN Has the patient had Daratumumab or Isatuximab in the past 6 months?->Unknown Mariano Eid MD LAB BLOOD BANK TEST ORDERABLES Final Result Performing Organization Address City/[facility] Co de Phone Number [facility] [email or web address] [address] * Prepare RBC: 1 Units (02/04/2024 12:43 AM TEAM PRIMARY CARE PHYSICIAN) Product code [id number] Unit Number [id number]- [id number] [facility] Product Blood Type OPOS [facility] Dispense Status PRESUMED TRANSFUSED [facility] Blood 02/04/2024 12:4 3 AM TEAM PRIMARY CARE PHYSICIAN 02/04/2024 12:43 AM TEAM PRIMARY CARE PHYSICIAN Narrative [facility] - 02/04/2024 4:01 PM TEAM PRIMARY CARE PHYSICIAN Are special requirements needed? (All products are leukoreduced and CMV- safe)- >No Date required:-[id number] LRRBC # of [facility]-4-Fajht Reasons:-Hgb <7 g/dL} Mariano Eid MD BLOOD BANK PRODUCT ORDERABLES Final Result Performing Organization Address City/[facility] Co de Phone Number [facility] [email or web address] [address] * (ABNORMAL) eGFR (02/03/2024 9:45 PM TEAM PRIMARY CARE PHYSICIAN) eGFR 58(L) >=60 mL/min/1. 73 m2 Comment: [...] last reviewed 2021. Blood 02/03/2024 9:45 PM TEAM PRIMARY CARE PHYSICIAN 02/03/2024 10:44 PM TEAM PRIMARY CARE PHYSICIAN us Meme Santana MD LAB BLOOD ORDERABLES Fin al Result [facility] Department [place] [address] * Differential, auto (02/03/2024 9:45 PM TEAM PRIMARY CARE PHYSICIAN) Neutrophil abs 4.8 1.5 - 6.5 K/cumm Imm gran abs 0.0 0.0 - 0.1 K/cumm [facility] Lymphocyte abs 1.0 0.8 - 3.3 K/cumm [facility] Monocyte abs 0.8 0.2 - 0.8 K/cumm [facility] Eosinophil abs 0.2 0.0 - 0.5 K/cumm [facility] Basophil abs 0.0 0.0 - 0.1 K/cumm [facility] Neutrophil pct 70.6 % [facility] Comment: Interpretive Data Percent cell count reference ranges are not reported, since discordance with absolute values may lead to misinterpretation of CBC data. Current Interpretive Data was last revised on 2017. Imm gran pct 0.4 % [facility] Comment: Interpretive Data Percent cell count reference ranges are not reported, since discordance with absolute values may lead to misinterpretation of CBC data. Current Interpretive Data was last revised on 2017. Lymphocyte pct 14.7 % [facility] Comment: Interpretive Data Percent cell count reference ranges are not reported, since discordance with absolute values may lead to misinterpretation of CBC data. Current Interpretive Data was last revised on 2017. Monocyte pct 11.0 % [facility] Comment: Interpretive Data Percent cell count reference ranges are not reported, since discordance with absolute values may lead to misinterpretation of CBC data. Current Interpretive Data was last revised on 2017. Eosinophil pct 3.2 % [facility] Comment: Interpretive Data Percent cell count reference ranges are not reported, since discordance with absolute values may lead to misinterpretation of CBC data. Current Interpretive Data was last revised on 2017. Basophil pct 0.1 % [facility] Comment: Interpretive Data Percent cell count reference ranges are not reported, since discordance with absolute values may lead to misinterpretation of CBC data. Current Interpretive Data was last revised on 2017. Blood 02/03/2024 9:45 PM TEAM PRIMARY CARE PHYSICIAN 02/03/2024 10:44 PM TEAM PRIMARY CARE PHYSICIAN us Meme Santana MD LAB BLOOD ORDERABLES Fin al Result [facility] Department [place] [address] * (ABNORMAL) CBC with auto differential (02/03/2024 9:45 PM TEAM PRIMARY CARE PHYSICIAN) Pathologist [facility] WBC 6.8 3.8 - 9.9 K/cumm Hgb 6.7(L) 11.9 - 15.5 g/dL [facility] Hct 21.5(L) 35.6 - 45.5 % [facility] Plt 194 150 - 400 K/cumm [facility] MPV 10.3 9.1 - 12.3 fL [facility] RBC 2.56(L) 3.90 - 5.20 M/cumm [facility] MCV 84.0 81.3 - 96.4 fL [facility] MCH 26.2(L) 27.1 - 33.3 pg [facility] MCHC 31.2(L) 32.3 - 35.7 g/dL [facility] RDW CV 14.2 11.1 - 14.9 % [facility] RDW SD 43.0 35.7 - 48.1 fL [facility] NRBC abs 0.00 0.00 - 0.01 K/cumm [facility] Blood 02/03/2024 9:45 PM TEAM PRIMARY CARE PHYSICIAN 02/03/2024 10:44 PM TEAM PRIMARY CARE PHYSICIAN Carin Granados MD LAB BLOOD ORDERABLES Tete l Result Performing Organization Address [facility] Co de Phone Number [facility] [place] [address] * Phosphorus (02/03/2024 9:45 PM TEAM PRIMARY CARE PHYSICIAN) Phosphorus, pl 3.6 2.3 - 4.5 mg/dL Blood 02/03/2024 9:45 PM TEAM PRIMARY CARE PHYSICIAN 02/03/2024 10:44 PM TEAM PRIMARY CARE PHYSICIAN Carin Granados MD LAB BLOOD ORDERABLES Tete l Result Performing Organization Address [facility] de Phone Number [facility] [place] [address] * (ABNORMAL) Magnesium (02/03/2024 9:45 PM TEAM PRIMARY CARE PHYSICIAN) Pathologist [facility] Magnesium 2.9(H) 1.4 - 2.5 mg/dL Blood 02/03/2024 9:45 PM TEAM PRIMARY CARE PHYSICIAN 02/03/2024 10:44 PM TEAM PRIMARY CARE PHYSICIAN Result [facility] Carin Granados MD LAB BLOOD ORDERABLES Tete l Result Performing Organization Address [facility] Co de Phone Number [facility] [place] [address] * (ABNORMAL) Hepatic function panel (02/03/2024 9:45 PM TEAM PRIMARY CARE PHYSICIAN) Bilirubin, total 0.6 0.1 - 1.2 mg/dL Bilirubin, direct <0.2 0.1 - 0.3 mg/dL [facility] Comment:Reviewed Protein, pl 6.1(L) 6.5 - 8.5 g/dL [facility] Albumin 2.4(L) 3.5 - 5.0 g/dL [facility] Alk phos 228(H) 40 - 130 Units/L [facility] ALT 16 7 - 45 Units/L [facility] AST 36 10 - 45 Units/L [facility] Blood 02/03/2024 9:45 PM TEAM PRIMARY CARE PHYSICIAN 02/03/2024 10:44 PM TEAM PRIMARY CARE PHYSICIAN us Carin Granados MD LAB BLOOD ORDERABLES Tete l Result Performing Organization Address City/[facility]/ZIP Co de Phone Number [facility] Department [place] [address] * (ABNORMAL) Basic metabolic panel (02/03/2024 9:45 PM TEAM PRIMARY CARE PHYSICIAN) Pathologist [facility] Sodium 139 135 - 145 mmol/L Potassium, pl 5.2(H) 3.3 - 4.9 mmol/L [facility] Chloride 104 97 - 110 mmol/L [facility] CO2 30 22 - 32 mmol/L [facility] Anion gap 5 2 - 15 mmol/L [facility] BUN 31(H) 6 - 25 mg/dL [facility] Creatinine 1.22(H) 0.60 - 1.10 mg/dL [facility] Glucose 170 70 - 199 mg/dL [facility] Comment: Interpretive Data Fasting glucose [...] Calcium 8.2(L) 8.5 - 10.3 mg/dL [facility] Blood 02/03/2024 9:45 PM TEAM PRIMARY CARE PHYSICIAN 02/03/2024 10:44 PM TEAM PRIMARY CARE PHYSICIAN us Carin Granados MD LAB BLOOD ORDERAB[place] [address] * POCT glucose (02/03/2024 9:39 PM TEAM PRIMARY CARE PHYSICIAN) Glucose, POC 190 70 - 199 mg/dL Blood 02/03/2024 9:39 PM TEAM PRIMARY CARE PHYSICIAN 02/03/2024 9:39 PM TEAM PRIMARY CARE PHYSICIAN us Carin Granados MD LAB POCT ORDERABLES - DEV ICE Final Result Performing Organization Address [facility] [place] [address] * POCT glucose (02/03/2024 5:47 PM TEAM PRIMARY CARE PHYSICIAN) Glucose, POC 131 70 - 199 mg/dL Blood 02/03/2024 5:47 PM TEAM PRIMARY CARE PHYSICIAN 02/03/2024 5:47 PM TEAM PRIMARY CARE PHYSICIAN us Carin Granados MD LAB POCT ORDERABLES - DEV ICE Final Result Performing Organization Address [facility] [place]/[facility] Co de Phone Number [facility] [email or web address] [address] * POCT glucose (02/03/2024 2:37 PM TEAM PRIMARY CARE PHYSICIAN) Glucose, POC 138 70 - 199 mg/dL Blood 02/03/2024 2:37 PM TEAM PRIMARY CARE PHYSICIAN 02/03/2024 2:37 PM TEAM PRIMARY CARE PHYSICIAN us Carin Granados MD LAB POCT ORDERABLES - DEV ICE Final Result Performing Organization Address [facility] [place]/[facility] [place] [address] * CT Abdomen Pelvis W Contrast (02/03/2024 10:03 AM TEAM PRIMARY CARE PHYSICIAN) Anatomical Region Laterality Modality Body N/A Computed Tomogra phy 02/03/2024 10:5 0 AM TEAM PRIMARY CARE PHYSICIAN Impressions 02/03/2024 12:25 PM TEAM PRIMARY CARE PHYSICIAN 1. Improving left upper pole and left [...] Zeke Chris M.D. Narrative 02/03/2024 12:25 PM TEAM PRIMARY CARE PHYSICIAN EXAMINATION: Computed tomography of the abdomen and [...] esult * POCT glucose (02/03/2024 9:24 AM TEAM PRIMARY CARE PHYSICIAN) Glucose, POC 131 70 - 199 mg/dL Blood 02/03/2024 9:24 AM TEAM PRIMARY CARE PHYSICIAN 02/03/2024 9:24 AM TEAM PRIMARY CARE PHYSICIAN Carin Granados MD LAB POCT ORDERABLES - DEV ICE Final Result [facility] Department [place] [address] * eGFR (02/02/2024 10:40 PM TEAM PRIMARY CARE PHYSICIAN) Pathologist [facility] eGFR 75 >=60 mL/min/1. 73 m2 Comment: [...] reviewed 2021. Blood 02/02/2024 10:4 0 PM TEAM PRIMARY CARE PHYSICIAN 02/03/2024 12:36 AM TEAM PRIMARY CARE PHYSICIAN us Meme Santana MD LAB BLOOD ORDERABLES Fin al Result [facility] Department [place] [address] * Differential, auto (02/02/2024 10:40 PM TEAM PRIMARY CARE PHYSICIAN) Pathologist [facility] Neutrophil abs 5.7 1.5 - 6.5 K/cumm Imm gran abs 0.0 0.0 - 0.1 K/cumm [facility] Lymphocyte abs 1.1 0.8 - 3.3 K/cumm [facility] Monocyte abs 0.8 0.2 - 0.8 K/cumm [facility] Eosinophil abs 0.3 0.0 - 0.5 K/cumm [facility] Basophil abs 0.0 0.0 - 0.1 K/cumm [facility] Neutrophil pct 71.1 % [facility] Comment: Interpretive Data Percent cell count reference ranges are not reported, since discordance with absolute values may lead to misinterpretation of CBC data. Current Interpretive Data was last revised on 2017. Imm gran pct 0.4 % [facility] Comment: Interpretive Data Percent cell count reference ranges are not reported, since discordance with absolute values may lead to misinterpretation of CBC data. Current Interpretive Data was last revised on 2017. Lymphocyte pct 14.1 % [facility] Comment: Interpretive Data Percent cell count reference ranges are not reported, since discordance with absolute values may lead to misinterpretation of CBC data. Current Interpretive Data was last revised on 2017. Monocyte pct 10.4 % [facility] Comment: Interpretive Data Percent cell count reference ranges are not reported, since discordance with absolute values may lead to misinterpretation of CBC data. Current Interpretive Data was last revised on 2017. Eosinophil pct 3.9 % [facility] Comment: Interpretive Data Percent cell count reference ranges are not reported, since discordance with absolute values may lead to misinterpretation of CBC data. Current Interpretive Data was last revised on 2017. Basophil pct 0.1 % [facility] Comment: Interpretive Data Percent cell count reference ranges are not reported, since discordance with absolute values may lead to misinterpretation of CBC data. Current Interpretive Data was last revised on 2017. Blood 02/02/2024 10:4 0 PM TEAM PRIMARY CARE PHYSICIAN 02/03/2024 12:04 AM TEAM PRIMARY CARE PHYSICIAN us Meme Santana MD LAB BLOOD ORDERABLES Fin al Result [facility] Department [place] [address] * (ABNORMAL) CBC with auto differential (02/02/2024 10:40 PM TEAM PRIMARY CARE PHYSICIAN) WBC 8.0 3.8 - 9.9 K/cumm Hgb 7.2(L) 11.9 - 15.5 g/dL [facility] Hct 22.5(L) 35.6 - 45.5 % [facility] Plt 190 150 - 400 K/cumm [facility] MPV 10.3 9.1 - 12.3 fL [facility] RBC 2.72(L) 3.90 - 5.20 M/cumm [facility] MCV 82.7 81.3 - 96.4 fL [facility] MCH 26.5(L) 27.1 - 33.3 pg [facility] MCHC 32.0(L) 32.3 - 35.7 g/dL [facility] RDW CV 14.0 11.1 - 14.9 % [facility] RDW SD 42.1 35.7 - 48.1 fL [facility] NRBC abs 0.00 0.00 - 0.01 K/cumm [facility] Blood 02/02/2024 10:4 0 PM TEAM PRIMARY CARE PHYSICIAN 02/03/2024 12:04 AM TEAM PRIMARY CARE PHYSICIAN Carin Granados MD LAB BLOOD ORDERABLES Tete l Result [facility] [place] [address] * Phosphorus (02/02/2024 10:40 PM TEAM PRIMARY CARE PHYSICIAN) Phosphorus, pl 2.8 2.3 - 4.5 mg/dL Blood 02/02/2024 10:4 0 PM TEAM PRIMARY CARE PHYSICIAN 02/03/2024 12:36 AM TEAM PRIMARY CARE PHYSICIAN Carin Granados MD LAB BLOOD ORDERABLES Tete l Result [facility] Department [place] [address] * (ABNORMAL) Magnesium (02/02/2024 10:40 PM TEAM PRIMARY CARE PHYSICIAN) Magnesium 2.6(H) 1.4 - 2.5 mg/dL Blood 02/02/2024 10:4 0 PM TEAM PRIMARY CARE PHYSICIAN 02/03/2024 12:36 AM TEAM PRIMARY CARE PHYSICIAN Carin Granados MD LAB BLOOD ORDERABLES Tete l Result Performing Organization Address [facility] [place]/[facility] Co de Phone Number [facility] [place] [address] * (ABNORMAL) Hepatic function panel (02/02/2024 10:40 PM TEAM PRIMARY CARE PHYSICIAN) Bilirubin, total 0.7 0.1 - 1.2 mg/dL Bilirubin, direct 0.2 0.1 - 0.3 mg/dL [facility] Protein, pl 6.4(L) 6.5 - 8.5 g/dL [facility] Albumin 2.6(L) 3.5 - 5.0 g/dL [facility] Alk phos 241(H) 40 - 130 Units/L [facility] ALT 13 7 - 45 Units/L [facility] AST 35 10 - 45 Units/L [facility] Blood 02/02/2024 10:4 0 PM TEAM PRIMARY CARE PHYSICIAN 02/03/2024 12:36 AM TEAM PRIMARY CARE PHYSICIAN Carin Granados MD LAB BLOOD ORDERABLES Tete l Result Performing Organization Address [facility] [place]/[facility] de Phone Number [facility] [place] [address] * (ABNORMAL) Basic metabolic panel (02/02/2024 10:40 PM TEAM PRIMARY CARE PHYSICIAN) Sodium 138 135 - 145 mmol/L Potassium, pl 5.0(H) 3.3 - 4.9 mmol/L [facility] Chloride 102 97 - 110 mmol/L [facility] CO2 30 22 - 32 mmol/L [facility] Anion gap 6 2 - 15 mmol/L [facility] BUN 26(H) 6 - 25 mg/dL [facility] Creatinine 0.99 0.60 - 1.10 mg/dL [facility] Glucose 135 70 - 199 mg/dL [facility] Comment: Interpretive Data Fasting glucose [...] Calcium 8.4(L) 8.5 - 10.3 mg/dL [facility] Blood 02/02/2024 10:4 0 PM TEAM PRIMARY CARE PHYSICIAN 02/03/2024 12:36 AM TEAM PRIMARY CARE PHYSICIAN Carin Granados MD LAB BLOOD ORDERABLES Tete l Result Performing Organization Address [facility] [place]/ZIP Co de Phone Number [facility] Department [place] [address] * POCT glucose (02/02/2024 8:25 PM TEAM PRIMARY CARE PHYSICIAN) Glucose, POC 173 70 - 199 mg/dL Blood 02/02/2024 8:25 PM TEAM PRIMARY CARE PHYSICIAN 02/02/2024 8:25 PM TEAM PRIMARY CARE PHYSICIAN Carin Granados MD LAB POCT ORDERABLES - DEV ICE Final Result Performing Organization Address [facility] [place]/[facility] Co de Phone Number [facility] Department [place] [address] * (ABNORMAL) Hemoglobin and hematocrit (02/02/2024 5:56 PM TEAM PRIMARY CARE PHYSICIAN) Hgb 7.6(L) 11.9 - 15.5 g/dL Hct 23.2(L) 35.6 - 45.5 % [facility] Blood 02/02/2024 5:56 PM TEAM PRIMARY CARE PHYSICIAN 02/02/2024 6:12 PM TEAM PRIMARY CARE PHYSICIAN Carin Granados MD LAB BLOOD [place] [address] * POCT glucose (02/02/2024 4:53 PM TEAM PRIMARY CARE PHYSICIAN) Glucose, POC 172 70 - 199 mg/dL Blood 02/02/2024 4:53 PM TEAM PRIMARY CARE PHYSICIAN 02/02/2024 4:53 PM TEAM PRIMARY CARE PHYSICIAN Carin Granados MD LAB POCT ORDERABLES - DEV ICE Final Result Performing Organization Address [facility] [place]/[facility] [place] [address] * Transfuse RBC (02/02/2024 2:55 PM TEAM PRIMARY CARE PHYSICIAN) Blood Carin Granados MD BLOOD TRANSFUSION ORDERAB LES Final Result Performing Organization Address [place]/[facility] [place] [address] * POCT glucose (02/02/2024 12:56 PM TEAM PRIMARY CARE PHYSICIAN) Glucose, POC 162 70 - 199 mg/dL Blood 02/02/2024 12:5 6 PM TEAM PRIMARY CARE PHYSICIAN 02/02/2024 12:56 PM TEAM PRIMARY CARE PHYSICIAN Carin Granados MD LAB POCT ORDERABLES - DEV ICE Final Result Performing Organization Address [facility] [place]/[facility] [place] [address] * POCT glucose (02/02/2024 9:48 AM TEAM PRIMARY CARE PHYSICIAN) Glucose, POC 126 70 - 199 mg/dL Blood 02/02/2024 9:48 AM TEAM PRIMARY CARE PHYSICIAN 02/02/2024 9:48 AM TEAM PRIMARY CARE PHYSICIAN us Carin Granados MD LAB POCT ORDERABLES - DEV ICE Final Result Performing Organization Address [facility] [place]/[facility] de Phone Number [facility] [place] [address] * Hepatitis panel, acute Blood (01/27/2024 9:00 PM TEAM PRIMARY CARE PHYSICIAN) Hep A IgM Nonreactive Nonreactive Hep B core IgM Nonreactive Nonreactive [facility] Hep C Ab Nonreactive Nonreactive [facility] Comment:Antibodies to HCV no t detected. Does NOT exclude the possibility of recent exposure to HCV. Current interpretive data was last revised on 21 HepBsAg Nonreactive Nonreactive [facility] Blood 01/27/2024 9:00 PM TEAM PRIMARY CARE PHYSICIAN 01/27/2024 9:44 PM TEAM PRIMARY CARE PHYSICIAN us Sheldon Duran MD LAB MICROBIOLOGY - GENERA L ORDERABLES Final Result Performing Organization Address [facility] [place]/[facility] de Phone Number [facility] Department [place] [address] * (ABNORMAL) Lipid panel (01/26/2024 11:33 PM TEAM PRIMARY CARE PHYSICIAN) Cholesterol 137 30 - 199 mg/dL Comment: [...] on 2017. Triglycerides 171(H) <=149 mg/dL [facility] Comment: Interpretive Data Ages < or = [...] on 2017. HDL 28(L) >=40 mg/dL [facility] Comment: Interpretive Data Ages < or = [...] 2017. LDL, calculated 79 <=129 mg/dL [facility] Comment: Interpretive Data Ages < or = [...] on 2023. Non-HDL Cholesterol 109 mg/dL [facility] Comment: Interpretive Data Ages < or = [...] revised on 2017. Chol/HDL ratio 5 [facility] Blood 01/26/2024 11:3 3 PM TEAM PRIMARY CARE PHYSICIAN 01/27/2024 12:31 AM TEAM PRIMARY CARE PHYSICIAN Sheldon Duran MD LAB BLOOD ORDERABLES Tete l Result [facility] Department [place] [address] * (ABNORMAL) Hemoglobin A1c (12/01/2023 6:48 PM CDT) Hgb A1C 10.6(H) 4.0 - 5.6 % Estimated Average Glucose 258 mg/dL [facility] Comment: The ADA recommends reporting an estimated Average Glucose (eAG) with all Hemoglobin A1c results using the equation derived from a study of 507 normal and diabetic adults. Minority populations were underrepresented and children were not included. (Diabetes Care 31:0175-1753, 2008). The eAG is not equivalent to a fasting glucose. 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 Coli. Not eligible for review. Multiple wounds that require cultures for discontinuation. 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
--- OUTSIDE RECORDS SUMMARY | 2024-05-04 20:29 | XMS_ITS | Encounter Summary ---
Author Organization [facility] Address [address] [place] [address] Care Team Providers Care Pack Out Operator Name Role Phone Barbara Oliva MD Primary Care Provider Miscellaneous, Not In File Unavailable Unava ilable Encounter Details Date Type Department Care Team (Late st Contact Info) Description 02/13/2024 Treatment [facility] PATHOLOGY [address] [address] Andie Byrne MD [address] [place] [id number] Social History Tobacco Use Types Packs/Day Years Used Date Smoking Tobacco: Every Day Cigarettes Passive Smoke Exposure: Never Smokeless Tobacco: Never [facility] Utilities Answer Date Recorded In the past 12 months has [employer] electric, gas, oil, or water company threatened [...] often do you attend chur ch or druze services? 1 to 4 times per year 01/29/2024 Do you belong to any clubs o r organizations such as catholic groups, unions, fraternal or athletic groups, or [...] any time in the past [address] [facility], were you homeless or living in a mcc (including now)? No 01/29/2024 Personal Safety Answer Date Recorded Have you ever been in or are you currently in a harmful physical or emotional relationship or is someone making you feel afraid or unsafe? 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 Contact Information: Please contact the [facility] Transfusion Medicine Service at (option 1) with any questions. This report has been prepared by: Andie Byrne MD Cosigned by Kassidy Mahoney MD PhD at 02/13/2024 7:52 [address]AD CAR REPAIR SUPERVISOR ROAD CAR REPAIR SUPERVISOR ROAD CAR REPAIR SUPERVISOR Associated attestation - Kassidy Mahoney MD PhD - 02/13/2024 7:52 PM RAILROAD CAR REPAIR SUPERVISOR Attestation: I have personally reviewed the antibody [...] documented as of this encounter Care Teams Pack Out Operator Relationship Specialty Start Date End Date Barbara Oliva MD [address] [place] [id number] PCP - General Gastroenterology 12/02/23 Miscellaneous, Not In File 01/03/24 documented as of this encounter
--- OUTSIDE RECORDS SUMMARY | 2024-05-04 20:30 | XMS_ITS | Encounter Summary ---
Author Organization [facility] Address [address] [place] [address] Care Team Providers Care Restaurant Line Server Name Role Phone Debra Ramires FLY FRAME TENDER-MERCHANDISING EXECUTION ASSOCIATE Primary Care Provider Malika Campbell FLY FRAME TENDER-MERCHANDISING EXECUTION ASSOCIATE Primary Care Provider [phone] Debra Ramires FLY FRAME TENDER-MERCHANDISING EXECUTION ASSOCIATE Primary Care Provider Malika Campbell FLY FRAME TENDER-MERCHANDISING EXECUTION ASSOCIATE Primary Care Provider [phone] aMlika Campbell FLY FRAME TENDER-MERCHANDISING EXECUTION ASSOCIATE Primary Care Provider [phone] Encounter Details Date Type Department Care Team (Late st Contact Info) Description 11/21/2017 Ophth Exam [facility] [address] [place] [address] Geraldo Grullon MD [address] [place] [id number] Social History Tobacco Use Types Packs/Day Years [...] on filedocumented in this encounter Care Teams Restaurant Line Server Relationship Specialty Start Date End Date Debra Ramires APRN-CNP [address] [place] [phone] PCP - General 04/10/15 09/12/20 Malika Campbell APRN-CNP [address] [place] [phone] PCP - General Nurse Practitioner Family 09/13/2009/23 Debra Ramires APRN-CNP [address] [place] [phone] PCP - General 09/24/20 09/30/20 Malika Campbell APRN-CNP [address] [place] [phone] PCP - General 10/01/20 04/08/22 Malika Campbell APRN-CNP [address] [place] [phone] PCP - General 04/09/22 documented as of this encounter
--- OUTSIDE RECORDS SUMMARY | 2024-05-04 20:30 | XMS_ITS | Encounter Summary ---
Author Organization [facility] Address 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 Eller's exchange Encounter Details Date Type Department Care Team (Late st Contact Info) Description 11/15/2023 Telephone [facility] Emergency [address] [place] [address] [place] [address] [place] [address] Osteomylitis of the 2nd toe [...]
--- OUTSIDE RECORDS SUMMARY | 2024-05-04 20:30 | XMS_ITS | Encounter Summary ---
Author Organization [facility] Address [address] [place] [address] Care Team Providers Care Map Maker Name Role Phone Unavailable Primary Care Provider Unavailabl e Reason for Visit * Reason Onset Date Comments Hoarse weak voice prolonged post extubation; please eval an 12/19/[address] [facility] OFFICE Encounter Details Date Type Department Care Team (Late st Contact Info) Description 12/19/2023 Telephone [facility] Admitting [address] [place] [address] Alton Moreno Scribe Hoarse weak [...]
--- OUTSIDE RECORDS SUMMARY | 2024-05-04 20:30 | XMS_ITS | Encounter Summary ---
Author Organization [facility] Address [address] [place] [address] Care Team Providers Care Land Economist Name Role Phone Unavailable Primary Care Provider Unavailabl e Reason for Visit * Reason Onset Date Comments left ft wound infection 12/10/2023 Left RN # and msg to Dr. Speedy zabala Encounter Details Date Type Department Care Team (Late st Contact Info) Description 12/10/2023 Telephone [facility] Admitting [address] [place] [address] [place] [address] [place] [address] left ft wound infection (Left [...]
--- OUTSIDE RECORDS SUMMARY | 2024-05-04 20:30 | XMS_ITS | Encounter Summary ---
Author Organization [facility] Address [address] [place] [address] Care Team Providers Care Kier Hand Name Role Phone Debra Ramires ANODE BUILDER-PRODUCE PRODUCTION TEAM MEMBER Primary Care Provider Malika Campbell ANODE BUILDER-PRODUCE PRODUCTION TEAM MEMBER Primary Care Provider [phone] Debra Ramires ANODE BUILDER-PRODUCE PRODUCTION TEAM MEMBER Primary Care Provider Malika Campbell ANODE BUILDER-PRODUCE PRODUCTION TEAM MEMBER Primary Care Provider [phone] Malika Campbell ANODE BUILDER-PRODUCE PRODUCTION TEAM MEMBER Primary Care Provider [phone] Encounter Details Date Type Department Care Team (Late st Contact Info) Description 10/02/2017 Ophth Exam [facility] [place] [address] Carmelo Olsen MD [facility] [place] [address] Social History Tobacco Use Types Packs/Day Years [...] on filedocumented in this encounter Care Teams Kier Hand Relationship Specialty Start Date End Date Debra Ramires APRN-PRODUCE PRODUCTION TEAM MEMBER [address] [facility] [address] [place] [address] PCP - General 04/10/15 09/12/20 Malika Campbell APRN-PRODUCE PRODUCTION TEAM MEMBER [address] [facility] [address] [place] [address] PCP - General Nurse Practitioner [facility] 09/13/2009/23 Debra Ramires APRN-PRODUCE PRODUCTION TEAM MEMBER [address] [facility] [address] [place] [address] PCP - General 09/24/20 09/30/20 Malika Campbell APRN-PRODUCE PRODUCTION TEAM MEMBER [address] [place] [phone] PCP - General 10/01/20 04/08/22 Malika Campbell APRN-PRODUCE PRODUCTION TEAM MEMBER [address] [place] [phone] PCP - General 04/09/22 documented as of this encounter
--- OUTSIDE RECORDS SUMMARY | 2024-05-04 20:30 | XMS_ITS | Patient Health Summary ---
Author Organization [facility] Address [address] [place] [address] Care Team Providers Care Post Acute Care Nurse Name Role Phone Malika Campbell ANKIT-SALES AND MARKETING ASSISTANT Primary Care Provider [phone] Note from [facility],non-owned Affiliates and Associated Physician Practices is amultiple site organization consisting of ambulatory clinics and hospital sitesin [place], [place], [place] and [place]. This disclosure is being madepursuant to the Care Everywhere program and may not contain all information available regarding this patient. Last updated 17.[facility] Allergies * Cat Hair Extract(Swelling) -Low [...] Comments Blood Pressure 126/83 03/24/2022 4:09 PM MUD JACK OPERATOR Pulse 96 03/24/2022 4:09 PM MUD JACK OPERATOR Temperature 35.9 C (96.7 F) 03/24/2022 4:09 PM MUD JACK OPERATOR Respiratory Rate 18 03/24/2022 4:09 PM MUD JACK OPERATOR Oxygen Saturation 100% 03/24/2022 4:09 PM MUD JACK OPERATOR Inhaled Oxygen Concentration - - Weight 84.8 kg (187 lb) 04/09/2022 11:15 AM MUD JACK OPERATOR Height 170.2 cm (5' 7 ) 01/07/2022 3:36 PM CDT Body Mass Index 29.29 01/07/2022 3:36 PM CDT Procedures * PT-INR [facility](Performed 03/24/2022) * COMPREHENSIVE METABOLIC PANEL(Performed 03/24/2022) * CBC W AUTO DIFFERENTIAL(Performed 03/24/2022) * GA ED EGD FLEX TRANSORAL DX(Performed 03/23/2022) Performed for Esophageal varices without bleeding, unspecified esophageal varices type (HCC) * EGD(Performed 03/23/2022) * GLUCOSE - POINT OF CARE(Performed 03/23/2022) * HCG URINE QUALITATIVE - POCT (IP) INTERFACED(Performed 03/23/2022) * HCG URINE QUAL POCT NOTIFICATION(Performed 03/23/2022) Performed for Preoperative examination * PATHOLOGY TISSUE(Performed 01/07/2022) Performed for Bleeding esophageal varices, unspecified esophageal varices type (HCC) * GA ED EGD FLEX TRANSORAL DX(Performed 01/07/2022) Performed [...] LEUKOREDUCED UNIT(Performed 09/13/2020) * EGD(Performed 09/13/2020) * GA ED EGD FLEX TRANSORAL DX(Performed 09/13/2020) * [...] ANTIBODY IDENTIFICATION(Performed 09/13/2020) * E ANTIGEN TYPING ([employer] II BB)(Performed 09/13/2020) * RUIZ DIRECT(Performed 09/13/2020) * [...] ascites, unspecified hepatic cirrhosis type (HCC) * JUDFU-5-FAFAQGTZOIX BLOOD(Performed 12/12/2019) Performed for Cirrhosis of liver [...] for Steatosis of liver, Hepatic fibrosis * GA LIVER ELASTOGRAPHY(Performed 03/25/2019) Performed for NAFLD (nonalcoholic [...] [facility](Performed 11/07/2013) * GLUCOSE ACCUCHECK(Performed 11/07/2013) * GA ED EGD FLEX TRANSORAL DX Performed for Abdominal pain, unspecified abdominal location, Esophageal varices without bleeding, unspecified esophageal varices type (HCC) * GA ED EGD FLEX TRANSORAL DX Performed for Esophageal varices without bleeding, unspecified esophageal varices type (HCC) Results * (ABNORMAL) PT-INR [facility] (03/24/2022 4:51 PM MUD JACK OPERATOR) Only the most recent of6 resultswithin the time period is included. [facility] PT 16.9(H) 12.1 - 14.8 Seconds 03/24/2022 5:30 PM [facility] INR 1.4 See Comment 03/24/2022 5:30 PM [facility] Comment:The suggested therap eutic range for standard coumadin (warfarin) therapy is an INR of 2.0-3.0. For high-risk patients (Mechanical Mitral Valve Prosthesis, etc.), the suggested prophylactic therapeutic range is an INR of 2.5-3.5. Blood BLOOD SPECIMEN / Unknown Venipuncture / Unknown 03/24/2022 4:51 PM MUD JACK OPERATOR 03/24/2022 5:03 PM MUD JACK OPERATOR Deonna Mukherjee PA-C LAB - COAGULATION ORDERABLES Performing Organization Address [facility]/State/[facility] Co de Phone Number [facility] [address] [place] [phone], [facility] [phone] * (ABNORMAL) CBC W AUTO DIFFERENTIAL (03/24/2022 4:51 PM MUD JACK OPERATOR) Only the most recent of18 resultswithin the time period is included. Pathologist [facility] WBC 9.7 3.5 - 10.5 10 3/uL 03/24/2022 5:07 PM [facility] RBC 4.23 3.80 - 5.20 10 6/uL 03/24/2022 5:07 PM [facility] Hemoglobin 12.0 12.0 - 15.6 g/dL 03/24/2022 5:07 PM [facility] Hematocrit 35.5 35.0 - 45.0 % 03/24/2022 5:07 PM [facility] MCV 83.9 80.7 - 98.3 fL 03/24/2022 5:07 PM [facility] MCH 28.4 26.7 - 34.0 pg 03/24/2022 5:07 PM [facility] MCHC 33.8 30.8 - 35.9 g/dL 03/24/2022 5:07 PM [facility] RDW-SD 37.7 36.0 - 50.0 fL 03/24/2022 5:07 PM [facility] RDW-CV 12.3 11.2 - 14.8 % 03/24/2022 5:07 PM [facility] Platelet Count 143(L) 150 - 400 10 3/uL 03/24/2022 5:07 PM [facility] MPV 10.5 9.4 - 12.9 fL 03/24/2022 5:07 PM [facility] nRBC Absolute 0.00 0 10 3/uL 03/24/2022 5:07 PM [facility] nRBC Auto 0.0 0 /100 WBC 03/24/2022 5:07 PM [facility] Neutrophils % 71.5(H) 35.0 - 70.0 % 03/24/2022 5:07 PM [facility] Lymphocytes % 20.7 20.0 - 43.0 % 03/24/2022 5:07 PM [facility] Monocytes % 6.5 5.0 - 13.0 % 03/24/2022 5:07 PM [facility] Eosinophils % 0.8 0.0 - 6.0 % 03/24/2022 5:07 PM [facility] Basophil % 0.3 0.0 - 2.0 % 03/24/2022 5:07 PM [facility] Neutrophils Absolute 6.92 1.60 - 7.00 10 3/uL 03/24/2022 5:07 PM [facility] Lymphocyte Absolute 2.01 1.10 - 3.90 10 3/uL 03/24/2022 5:07 PM [facility] Monocytes Absolute 0.63 0.26 - 1.07 10 3/uL 03/24/2022 5:07 PM [facility] Eosinophils Absolute 0.08 0.00 - 0.47 10 3/uL 03/24/2022 5:07 PM [facility] Basophils Absolute 0.03 0.00 - 0.08 10 3/uL 03/24/2022 5:07 PM [facility] Immature Granulocytes % 0.2 0.0 - 1.0 % 03/24/2022 5:07 PM [facility] Immature Granulocytes Absolute 0.02 03/24/2022 5:07 PM [facility] Blood BLOOD SPECIMEN / Unknown Venipuncture / Unknown 03/24/2022 4:51 PM MUD JACK OPERATOR 03/24/2022 5:03 PM MUD JACK OPERATOR Deonna Mukherjee PA-C LAB - HEMATOLOGY O RDERABLES [facility] [address] [place] [address], [facility] [phone] * (ABNORMAL) COMPREHENSIVE METABOLIC PANEL (03/24/2022 4:51 PM MUD JACK OPERATOR) Only the most recent of10 resultswithin the time period is included. BUN 10 7 - 26 mg/dL 03/24/2022 5:42 PM [facility] Creatinine 0.55(L) 0.56 - 0.96 mg/dL 03/24/2022 5:42 PM [facility] Sodium 134(L) 136 - 145 mmol/L 03/24/2022 5:42 PM [facility] Potassium 3.8 3.5 - 4.5 mmol/L 03/24/2022 5:42 PM [facility] Chloride 94(L) 98 - 107 mmol/L 03/24/2022 5:42 PM [facility] CO2 25 22 - 29 mmol/L 03/24/2022 5:42 PM [facility] Glucose 606(HH) 70 - 115 mg/dL 03/24/2022 5:42 PM [facility] Calcium 9.0 8.4 - 10.2 mg/dL 03/24/2022 5:42 PM [facility] Protein Total 7.2 6.0 - 8.3 g/dL 03/24/2022 5:42 PM [facility] Albumin 3.5 3.4 - 5.0 g/dL 03/24/2022 5:42 PM [facility] Bilirubin Total 0.7 0.2 - 1.2 mg/dL 03/24/2022 5:42 PM [facility] Alkaline Phosphatase 127 40 - 150 U/L 03/24/2022 5:42 PM [facility] ALT 19 5 - 55 U/L 03/24/2022 5:42 PM [facility] AST 19 5 - 34 U/L 03/24/2022 5:42 PM [facility] Anion Gap 19(H) 8 - 18 03/24/2022 5:42 PM [facility] BUN/Creatinine Ratio 18 7 - 23 03/24/2022 5:42 PM [facility] Osmolality Calculated 305(H) 270 - 300 mOsm/kg 03/24/2022 5:42 PM [facility] Albumin/Globulin Ratio 0.9(L) 1.1 - 2.3 03/24/2022 5:42 PM [facility] eGFR by CKD-EPI >90 >=90 mL/min/1.7 3 m2 03/24/2022 5:42 PM [facility] Blood BLOOD SPECIMEN / Unknown Venipuncture / Unknown 03/24/2022 4:51 PM MUD JACK OPERATOR 03/24/2022 5:03 PM MUD JACK OPERATOR Deonna Mukherjee PA-C LAB - CHEMISTRY OR DERABLES Performing Organization Address [facility]/State/[facility] Co de Phone Number [facility] [address] [place] [address], [facility] [phone] * EGD (03/23/2022 3:24 PM MUD JACK OPERATOR) Report Endoscopy POC Endoscopy Department Report _ [...] non-werner portions. Procedure Code(s): --- Professional --- 38716, Esophagogastroduo denoscopy, flexible, transoral; with band ligation of esophageal/gastri c varices Diagnosis Code(s): --- Professional --- I85.00, Esophageal varices without bleeding K76.6, Portal hypertension K31.89, Other diseases of stomach and duodenum CPT copyright 2019 [employer]. All rights reserved. The codes documented in this report are preliminary and upon inspector aide review may be revised to meet current compliance requirements. Wilbert Estrella, 03/23/2022 3:42:51 PM Note Initiated On: 03/23/2022 3:24 PM Number of Addenda: [address] [employer]OVATION 03/23/2022 3:24 PM MUD JACK OPERATOR Carlie Estrella MD GI PRO CEDURE ORDERABLES [facility] [employer] * (ABNORMAL) GLUCOSE - POINT OF CARE (03/23/2022 2:44 PM MUD JACK OPERATOR) Only the most recent of8 resultswithin the time period is included. Glucose WB/POC 238(H) 70 - 115 mg/dL 03/23/2022 3:06 PM MUD JACK OPERATOR [facility] Specimen Type Cap Fingerstick 2022 3:06 PM MUD JACK OPERATOR [facility] Blood BLOOD SPECIMEN / Unknown 03/23/2022 2:44 PM MUD JACK OPERATOR 03/23/2022 3:06 PM MUD JACK OPERATOR Carlie Estrella MD LAB - POINT OF CARE ORDERABLES Performing Organization Address City/[facility]/ZIP Co de Phone Number [address] [address], [place] [phone] * HCG URINE QUALITATIVE - POCT (IP) INTERFACED (03/23/2022 2:34 PM MUD JACK OPERATOR) Only the most recent of2 resultswithin the time period is included. HCG Qual Urine Negative Negative 03/23/2022 2:41 PM MUD JACK OPERATOR [facility] Urine URINE / Unknown 03/23/2022 2 :34 PM MUD JACK OPERATOR 03/23/2022 2:41 PM MUD JACK OPERATOR Carlie Estrella MD LAB - POINT OF CARE ORDERABLES Performing Organization Address [facility] Co de Phone Number [address] [address], [place] [phone] * HCG URINE QUAL POCT NOTIFICATION (03/23/2022 2:26 PM MUD JACK OPERATOR) Only the most recent of3 resultswithin the time period is included. Comment Notification Label Only - See Separate Report 03/23/2022 3:32 PM MUD JACK OPERATOR [facility] Urine URINE / Unknown 03/23/2022 2 :26 PM MUD JACK OPERATOR 03/23/2022 2:26 PM MUD JACK OPERATOR Carlie Estrella MD LAB - URINALYSIS ORDERABLES Performing Organization Address City/[facility]/ZIP Co de Phone Number [address] [address], [place] [phone] * PATHOLOGY TISSUE (01/07/2022 1:37 PM CDT) Only the most recent of3 resultswithin the time period is included. Case Report Surgical Pathology Report Case: [id number] Authorizing Provider: Daina Vasquez MD Collected: 01/07/2022 01:37 PM Ordering Location: [facility] ENDOSCOPY Received: 01/07/2022 03:38 PM Pathologist: Suzette Hernandez MD Specimen: Gastric, random gastric bx- R/O H pylori 01/08/2022 2:32 PM [facility] PATHOLOGY LAB Final Diagnosis Stomach, random, biopsy (A): - Mild reactive changes - No active inflammation or H. pylori organisms (H&E examination) 01/08/2022 2:32 PM [facility] PATHOLOGY LAB Microscopic Description and Comment Microscopic examination substantiates the final diagnosis. 01/08/2022 2:32 PM [facility] Clinical History The patient is a 36-year-old woman with left upper quadrant abdominal pain who presents for follow-up of esophageal varices and surveillance. Operative procedure/findings: EGD - large esophageal varices, banded; portal hypertensive gastropathy and nonbleeding gastric ulcers, biopsied to rule out H. pylori. 01/08/2022 2:32 PM [facility] PATH[facility] LAB Gross Description The requisition and specimen(s) are identified with the patient's name Shruti Velazquez. Received in formalin, specimen A , are 2 pink-patrick tissues, 0.1 x 0.1 x 0.1 cm and 0.4 x 0.2 x 0.1 cm, submitted in toto in cassette A1. DF 01/08/2022 2:32 PM [facility] PATH[facility] LAB Disclaimer The performance characteristics of all immunohistochemical and indirect immunofluorescence stains (if any) cited in this report were determined by the Histopathology Laboratory of [facility]. Some of these tests were [...] the attending (teaching) pathologist. 01/08/2022 2:32 PM [facility] PATH[facility]Y LAB Embedded Images 01/08/2022 2:32 PM [facility] LAB Biopsy, NOS GASTRIC CONTENTS SPECIMEN / Unknown 01/07/2022 1:37 PM CDT 01/07/2022 3:38 PM CDT Comment:Pre-op diagnosis: Bleeding esophageal varices, unspecified esophageal varices type [I85.01] Daina Vasquez MD LAB - PATHOLOGY/CY ALLA ORDERABLES [facility] [address] [phone] * EGD (01/07/2022 1:19 PM CDT) Report [...] entire procedure. Procedure Code(s): --- Professional --- 43764, Esophagogastroduode noscopy, flexible, transoral; with band ligation of esophageal/gastric varices Diagnosis Code(s): --- Professional --- I85.00, Esophageal varices without bleeding K76.6, Portal hypertension K31.89, Other diseases of stomach and duodenum K25.9, Gastric ulcer, unspecified as acute or chronic, without hemorrhage or perforation R10.11, Right upper quadrant pain R10.12, Left upper quadrant pain CPT copyright 2019 [employer]. All rights reserved. The codes documented in this report are preliminary and upon inspector aide review may be revised to meet current compliance requirements. ___ Daina Vasquez MD 01/07/2022 1:51:04 PM Note Initiated On: 01/07/2022 1:19 PM Number of Addenda: [address] [address] __ _ Addendum Number: 1 Addendum Date: 01/07/2022 2:05:12 PM given banding, would recommend liquid diet today and soft diet x 1 week. Of note, not on nadolol and heart rate 70-80s at endoscopy. ___ Daina Vasquez MD 01/07/2022 2:05:53 PM [facility] [employer]OVATION 01/07/2022 1:19 PM CDT Daina Vasquez MD GI PROCEDURE ORDER [place] [facility] [employer]ATION * ALPHA FETOPROTEIN BLOOD TUMOR MARKER (01/07/2022 11:08 AM CDT) Only the most recent of3 resultswithin the time period is included. Alpha-Fetoprote in Tumor Marker <2.0 <=8.3 ng/mL 01/07/2022 12:03 PM CDT [facility] Comment: AFP values will vary depending on testing procedure used. Results are not comparable across different methods. AFP values obtained by [facility] using an Miller Alinity Immunoassay. Blood BLOOD SPECIMEN / Unknown Venipuncture / Unknown 01/07/2022 11:08 AM CDT 01/07/2022 11:13 AM CDT Abby Jaquez ROUTE CONTRACTOR-SALES AND MARKETING ASSISTANT LAB - CHEMI STRY ORDERABLES [facility] [address] [place] [phone], [facility] [phone] * US ABDOMEN LIMITED (01/07/2022 10:53 AM [...] Navarro (resident). > Dictated by Salvador Navarro (Machine Cleaner) 01/07/2022 11:13 AM IABIMAEL MD have personally reviewed and interpreted this examination/study. > Interpreting Provider: ABIMAEL WALLACE MD on 01/07/2022 12:10 PM Narrative 01/07/2022 12:10 PM CDT PROCEDURE: US ABDOMEN LIMITED, DATE/TIME OF EXAM: 01/07/2022 8:32 AM, LOCATION [facility] INDICATION: K74.60: Hepatic cirrhosis, unspecified [...] DATE/TIME OF EXAM: 01/07/2022 8:32 AM, LOCATION [facility] INDICATION: K74.60: Hepatic cirrhosis, unspecified [...] Navarro (resident). > Dictated by Salvador Navarro (Machine Cleaner) 1:13 AM I, ABIMAEL WALLACE MD have personally reviewed and interpreted this examination/study. > Interpreting Provider: ABIMAEL WALLACE MD on 01/07/2022 12:10 PM Abby Jaquez ROUTE CONTRACTOR-SALES AND MARKETING ASSISTANT US ORDERABL ES * LAB RESULTS ORDER [...] The following cutoff levels are recommended by [place] [employer]. A1c > 6.5% : considered [...] Pink MD LAB - CHEMISTRY ORD ERABLES [facility] Organization Address City/State/ZIP Co de Phone Number -[facility] [address] [place] [address] * (ABNORMAL) RENAL FUNCTION PANEL (09/14/2020 3:05 AM CDT) Glucose 95 70 - 105 mg/dL 09/14/2020 4:04 AM CDT -[facility] Sodium 139 136 - 145 mmol/L 09/14/2020 4:04 AM CDT -[facility] Potassium 3.6 3.5 - 5.1 mmol/L 09/14/2020 4:04 AM CDT -[facility] Chloride 108(H) 98 - 107 mmol/L 09/14/2020 4:04 AM CDT -[facility] CO2 22(L) 23 - 31 mmol/L 09/14/2020 4:04 AM CDT -[facility] Calcium 7.5(L) 8.4 - 10.4 mg/dL 09/14/2020 4:04 AM CDT -[facility] Anion Gap 9 8 - 18 mmol/L 09/14/2020 4:04 AM CDT -[facility] BUN 24(H) 7 - 18.7 mg/dL 09/14/2020 4:04 AM CDT -[facility] Creatinine 0.76 0.57 - 1.11 mg/dL 09/14/2020 4:04 AM CDT -[facility] Albumin 2.9(L) 3.5 - 5.2 gm/dL 09/14/2020 4:04 AM CDT -[facility] Phosphorus 3.2 2.3 - 4.7 mg/dL 09/14/2020 4:04 AM CDT -[facility] eGFR by MDRD >60 >60 mL/min/1.7 3m2 09/14/2020 4:04 AM CDT [facility] eGFR by MDRD >60 >60 mL/min/1.7 3m2 09/14/2020 4:04 AM CDT [facility] Blood BLOOD SPECIMEN / Unknown Lab Venipuncture / Unknown 09/14/2020 3:05 AM CDT 09/14/2020 3:37 AM CDT Angeline Atkins MD LAB - CHEMISTRY [place] [facility] [address] [place] [address] * MAGNESIUM BLOOD (09/14/2020 3:05 AM CDT) Only the most recent of2 resultswithin the time period is included. Magnesium 2.2 1.6 - 2.6 mg/dL 09/14/2020 4:04 AM CDT [facility] Blood BLOOD SPECIMEN / Unknown Lab Venipuncture / Unknown 09/14/2020 3:05 AM CDT 09/14/2020 3:37 AM CDT Angeline Atkins MD LAB - CHEMISTRY [place] Performing Organization Address City/[facility]/ZIP Co de Phone Number [facility] [address] [place] [address] * (ABNORMAL) HGB HCT PANEL (09/13/2020 10:38 PM CDT) Only the most recent of3 resultswithin the time period is included. Hemoglobin 8.0(L) 12.0 - 15.6 gm/dL 09/13/2020 10:59 PM CDT -[facility] Hematocrit 24.9(L) 35.9 - 45.5 % 09/13/2020 10:59 PM CDT [facility] Blood BLOOD SPECIMEN / Unknown Lab Venipuncture / Unknown 09/13/2020 10:38 PM CDT 09/13/2020 10:57 PM CDT Cielo Pink MD LAB - HEMATOLOGY OR DERABLES [facility] [address] [place] [address] * TRANSFUSE RED BLOOD CELL LEUKOREDUCED UNIT(S) [...] [facility] BLOOD BANK Unit Donor # [id number] [facility] BLOOD BANK Unit Status transfused [facility] BLOOD BANK Product Code [id number] [facility] BLOOD BANK Blood Type Barcode 5100 [facility] BLOOD BANK Expiration Date [facility] BLOOD BANK Unit Description AS1 LR PRBC [facility] BLOOD BANK Unit ABO O [facility] BLO OD BANK Unit Rh POS [facility] BLO OD BANK Product Number R02 [facility] L BLOOD BANK Unit Donor # [id number] [facility] BLOOD BANK Unit Status transfused [facility] BLOOD BANK Product Code [id number] [facility] BLOOD BANK Blood Type Barcode 5100 [facility] BLOOD BANK Expiration Date S [facility] BLOOD BANK Blood Bank BLOOD SPECIMEN / Unknown 09/13/2020 5:14 AM CDT Cielo Pink MD LAB - BLOOD BANK OR DERABLES [facility] BLOOD BANK [address] [place] [address] [phone] * EGD (09/13/2020 4:35 PM CDT) Report [...] present medications. Procedure Code(s): --- Professional --- 00334, Esophagogastroduod enoscopy, flexible, transoral; with band ligation of esophageal/gastric varices --- Technical --- 14661, Esophagogastroduod enoscopy, flexible, transoral; with band ligation [...] K92.1, Melena (includes Hematochezia) CPT copyright 2019 [employer]. All rights reserved. The codes documented in this report are preliminary and upon inspector aide review may be revised to meet current compliance requirements. ___ Corbin De La Rosa MD 09/13/2020 5:03:17 PM This report has been signed electronically. Number of Addenda: 0 Note Initiated On: 09/13/2020 4:35 PM Procedure Date: 09/13/2020 4:35:56 PM [facility] 09/13/2020 4:35 PM CDT Corbin De La Rosa MD GI PROCEDURE ORDERAB LES [facility] END[facility] * TRANSFUSE RED BLOOD CELL LEUKOREDUCED [...] - 105 mg/dL 09/13/2020 10:28 AM CDT -[facility] Sodium 138 136 - 145 mmol/L 09/13/2020 10:28 AM CDT -[facility] Potassium 3.9 3.5 - 5.1 mmol/L 09/13/2020 10:28 AM CDT -[facility] Chloride 108(H) 98 - 107 mmol/L 09/13/2020 10:28 AM CDT [facility] CO2 22(L) 23 - 31 mmol/L 09/13/2020 10:28 AM CDT -[facility] Calcium 7.6(L) 8.4 - 10.4 mg/dL 09/13/2020 10:28 AM CDT -[facility] Anion Gap 8 8 - 18 mmol/L 09/13/2020 10:28 AM CDT [facility] BUN 32(H) 7 - 18.7 mg/dL 09/13/2020 10:28 AM CDT [facility] Creatinine 0.85 0.57 - 1.11 mg/dL 09/13/2020 10:28 AM CDT -[facility] eGFR by MDRD >60 >60 mL/min/1.7 3m2 09/13/2020 10:28 AM CDT [facility] eGFR by MDRD >60 >60 mL/min/1.7 3m2 09/13/2020 10:28 AM CDT [facility] Blood BLOOD SPECIMEN / Unknown Lab Venipuncture / Unknown 09/13/2020 9:55 AM CDT 09/13/2020 10:04 AM CDT Cielo Pink MD LAB - CHEMISTRY ORD ERABLES [facility] [address] [place] [address] * FOLATE (09/13/2020 9:55 AM CDT) Pathologist [facility] Folate 12.4 7.0 - 31.4 ng/mL 09/13/2020 4:50 PM CDT [facility] Blood BLOOD SPECIMEN / Unknown Lab Venipuncture / Unknown 09/13/2020 9:55 AM CDT 09/13/2020 10:04 AM CDT Cielo Pink MD LAB - CHEMISTRY ORD ERABLES [facility] [address] [place] [address] * VITAMIN B12 (09/13/2020 9:55 AM CDT) [facility] Vitamin B12 322 213 - 816 pg/mL 09/13/2020 4:50 PM CDT [facility] Blood BLOOD SPECIMEN / Unknown Lab Venipuncture / Unknown 09/13/2020 9:55 AM CDT 09/13/2020 10:04 AM CDT Cielo Pink MD LAB - CHEMISTRY ORD ERABLES Performing Organization Address City/[facility] Co de Phone Number [facility] [address] [place] [address] * (ABNORMAL) IRON + TRANSFERRIN PANEL (09/13/2020 9:55 AM CDT) [facility] Iron 11(L) 50 - 170 ug/dL 09/13/2020 4:13 PM CDT [facility] Transferrin 313 180 - 382 mg/dL 09/13/2020 4:13 PM CDT [facility] TIBC Calculated 391 240 - 450 ug/dL 09/13/2020 4:13 PM CDT [facility] Iron Saturation % 3(L) 20 - 50 % 09/13/2020 4:13 PM CDT [facility] Blood BLOOD SPECIMEN / Unknown Lab Venipuncture / Unknown 09/13/2020 9:55 AM CDT 09/13/2020 10:04 AM CDT Cielo Pink MD LAB - CHEMISTRY ORD ERABLES [facility] [address] [place] [id number] * FERRITIN (09/13/2020 9:55 AM CDT) Only the most recent of2 resultswithin the time period is included. [facility] Ferritin 12 5 - 204 ng/mL 09/13/2020 4:50 PM CDT [facility] Blood BLOOD SPECIMEN / Unknown Lab Venipuncture / Unknown 09/13/2020 9:55 AM CDT 09/13/2020 10:04 AM CDT Cielo Pink MD LAB - CHEMISTRY ORD ERABLES [facility] [address] [place] [address] * BLOOD TYPE VERIFICATION (09/13/2020 6:03 AM CDT) ABO Rh O POS 09/13/2020 9:0 6 AM CDT [facility] BLOOD BANK Blood Bank BLOOD SPECIMEN / Unknown Lab Venipuncture / Unknown 09/13/2020 6:03 AM CDT 09/13/2020 6:11 AM CDT John York MD LAB - BLOOD BANK ORDERABLES Performing Organization Address [facility] Co de Phone Number [facility] BLOOD BANK [address] [place] [address] * E ANTIGEN TYPING (SOFTBANK BB) (09/13/2020 5:08 AM CDT) E Antigen NEG 09/13/2020 11:04 AM CDT [facility] BLOOD BANK Blood Bank BLOOD SPECIMEN / Unknown Lab Venipuncture / Unknown 09/13/2020 5:08 AM CDT 09/13/2020 5:14 AM CDT Cielo Pink MD LAB - BLOOD BANK OR DERABLES Performing Organization Address City/[facility]/ZIP Co de Phone Number [facility] BLOOD BANK [address] [place] [address] * TYPE + SCREEN PANEL (09/13/2020 5:08 AM CDT) ABO Rh O POS 09/13/2020 9:06 AM CDT [facility] BLOOD BANK Comment:No history; collect retype. Antibody Screen POS 9:06 AM CDT [facility] BLOOD BANK Blood Bank BLOOD SPECIMEN / Unknown Lab Venipuncture / Unknown 09/13/2020 5:08 AM CDT 09/13/2020 5:14 AM CDT Cielo Pink MD LAB - BLOOD BANK OR DERABLES [facility] BLOOD BANK [address] [place] [address] * RUIZ DIRECT (09/13/2020 5:08 AM CDT) Direct Ruiz (NEGIN) NEG 09/13/2020 10:54 AM CDT [facility] BLOOD BANK Blood Bank BLOOD SPECIMEN / Unknown Lab Venipuncture / Unknown 09/13/2020 5:08 AM CDT 09/13/2020 5:14 AM CDT Cielo Pink MD LAB - BLOOD BANK OR DERABLES Performing Organization Address [facility] Co de Phone Number [facility] BLOOD BANK [address] [place] [address] * ANTIBODY IDENTIFICATION (09/13/2020 5:08 AM CDT) Antibody 1 POS, Anti-E 09/13/2020 11:15 AM CDT [facility] BLOOD BANK Blood Bank BLOOD SPECIMEN / Unknown Lab Venipuncture / Unknown 09/13/2020 5:08 AM CDT 09/13/2020 5:14 AM CDT Cielo Pink MD LAB - BLOOD BANK OR DERABLES Performing Organization Address [facility] Co de Phone Number [facility] BLOOD BANK [address] [place] [address] * (ABNORMAL) PT-INR (09/13/2020 5:08 AM CDT) PT 20.3(H) 12.1 - 14.8 sec 09/13/2020 5:31 AM CDT -[facility] INR 1.8(H) 0.9 - 1.1 09/13/2020 5:31 AM CDT [facility] Blood BLOOD SPECIMEN / Unknown Lab Venipuncture / Unknown 09/13/2020 5:08 AM CDT 09/13/2020 5:14 AM CDT Narrative -[facility] - 09/13/2020 5:31 AM CDT Conventional Warfarin Anticoagulant Therapy: INR Reference Range: 2.0-3.0 Intensive Warfarin Anticoagulant Therapy: INR Reference Range: 2.5-3.5 Cielo Pink MD LAB - COAGULATION O RDERABLES Performing Organization Address City/[facility]/ZIP Co de Phone Number [facility] [address] [place] [phone] * PHOSPHORUS BLOOD (09/13/2020 5:08 AM CDT) [facility] Signature Phosphorus 3.3 2.3 - 4.7 mg/dL 09/13/2020 5:39 AM CDT [facility] Blood BLOOD SPECIMEN / Unknown Lab Venipuncture / Unknown 09/13/2020 5:08 AM CDT 09/13/2020 5:14 AM CDT Cielo Pink MD LAB - CHEMISTRY ORD ERABLES Performing Organization Address City/[facility] Co de Phone Number [facility]OR[facility]ORY [address] [place] [phone] * CT ABDOMEN PELVIS W CONTRAST (12/19/2019 [...] dictated by Calos Oakley MD (vice president of advertising). I, Dr. KAYODE DOOLEY have personally reviewed [...] dictated by Calos Oakley MD (vice president of advertising). I, Dr. KAYODE DOOLEY have personally reviewed [...] - CHEMISTRY [place] Performing Organization Address [facility]/ZIP Co de Phone Number [address] [address], [place] [phone] * (ABNORMAL) AMMONIA (12/19/2019 12:58 PM CDT) Pathologist [facility] Ammonia 67(H) 11 - 64 umol/L 12/19/2019 1:49 PM CDT [facility] Blood BLOOD SPECIMEN / Unknown Venipuncture / Unknown 12/19/2019 12:58 PM CDT 12/19/2019 1:26 PM CDT Andie Martinez MD LAB - CHEMISTRY [place] Performing Organization Address [facility] Co de Phone Number [address] [address], [place] [phone] * ALCOHOL ETHYL BLOOD (12/19/2019 12:58 PM CDT) Pathologist [facility] Interpretation Ethanol None Detected None Detected mg/dL 12/19/2019 1:53 PM CDT [facility] Comment:Ethanol levels less than 10 mg/dL are resulted as None detected . Blood BLOOD SPECIMEN / Unknown Venipuncture / Unknown 12/19/2019 12:58 PM CDT 12/19/2019 1:26 PM CDT Andie Martinez MD LAB - CHEMISTRY [place] Performing Organization Address [facility]/ZIP Co de Phone Number [address] [address], [place] [phone] * (ABNORMAL) URINALYSIS W/MICROSCOPIC NO CULTURE (12/19/2019 12:14 PM CDT) Only the most recent of3 resultswithin the time period is included. Color UA Lindsey(A) Straw, Yellow, Colorless 12/19/2019 12:48 PM [facility] Clarity UA Cloudy(A) Clear, Slt Cloudy 12/19/2019 12:48 PM [facility] Specific [place] UA 1.026 1.005 - 1.030 12/19/2019 12:48 PM [facility] pH UA 5.0 5.0 - 8.0 pH 12/19/2019 12:48 PM [facility] Protein UA 2+(A) Negative mg/dL 12/19/2019 12:48 PM [facility] Glucose UA 1+(A) Negative mg/dL 12/19/2019 12:48 PM [facility] Ketone UA Negative Negative mg/dL 12/19/2019 12:48 PM [facility] Bilirubin UA Negative Negative mg/dL 12/19/2019 12:48 PM [facility] Blood UA 1+(A) Negative 12/19/2019 12:48 PM [facility] Nitrite UA Negative Negative 12/19/2019 12:48 PM [facility] Leukocyte Esterase Trace(A) Negative 12/19/2019 12:48 PM [facility] Urobilinogen UA 4.0(A) Negative mg/dL 12/19/2019 12:48 PM [facility] RBC UA 6-10(A) None Seen, 0-2, 3-5 /HPF 12/19/2019 12:48 PM [facility] WBC UA 0-5 None Seen, 0-5 /HPF 12/19/2019 12:48 PM [facility] Bacteria UA 3+(A) None, Trace /HPF 12/19/2019 12:48 PM [facility] Squamous Epithelial Cells UA >20(A) None Seen, 0-2 /HPF 12/19/2019 12:48 PM [facility] Renal Epithelial Cells UA 0-2 None Seen, 0-2 /HPF 12/19/2019 12:48 PM [facility] Mucus UA 1+ None, 1+ /LPF 12/19/2019 12:48 PM [facility] Urine URINE SPECIMEN OBTAINED BY CLEAN CATCH PROCEDURE / Unknown Collection / Unknown 12/19/2019 12:14 PM CDT 12/19/2019 12:22 PM CDT Narrative [facility] - 12/19/2019 12:48 PM CDT Andie Martinez MD LAB - URINALYSIS ORD ERABLES [facility] [address] [place] [address], [facility] [phone] * HCG URINE QUALITATIVE (12/19/2019 12:14 PM CDT) Test Urine Negative Negative 12/19/2019 12:40 PM CDT [facility] Urine URINE / Unknown Collection / Unknown 12/19/2019 12:14 PM CDT 12/19/2019 12:22 PM CDT Star Bocanegra MD LAB - URINALYSIS ORD ERABLES Performing Organization Address City/[facility]/ZIP Co de Phone Number [address] [address], [facility] [phone] * SMOOTH MUSCLE ANTIBODY W REFLEX TITER (12/12/2019 9:51 AM CDT) F-Actin Antibody IgG 19 0 - 19 Units 12/14/2019 9:32 PM CDT [employer] ([facility]) Comment: If F-Actin (Smooth Muscle) Antibody, [...] suspicion for AIH is strong. Performed By: [employer] [address] [place] [address] Hydraulic Billet Maker: Cielo Read MD Blood BLOOD SPECIMEN / Unknown Lab Venipuncture / Unknown 12/12/2019 9:51 AM CDT 12/12/2019 11:02 AM CDT Abby Jaquez ROUTE CONTRACTOR-SALES AND MARKETING ASSISTANT LAB - SEROL OGY ORDERABLES Performing Organization Address [facility]/ZIP Co de Phone Number [facility]) [address] [place] [address] * MITOCHONDRIAL ANTIBODY SCREEN (12/12/2019 9:51 AM CDT) Pathologist [facility] Mitochondrial M2 Antibody 4.0 0.0 - 24.9 Units 12/14/2019 9:32 PM CDT [facility] [employer] ([facility]) Comment: REFERENCE INTERVAL: Mitochondrial (M2) Antibody, [...] does not rule out PBC. Performed By: [employer] [address] [place] [address] Hydraulic Billet Maker: Cielo Read MD Blood BLOOD SPECIMEN / Unknown Lab Venipuncture / Unknown 12/12/2019 9:51 AM CDT 12/12/2019 11:02 AM CDT Tamir Becerra MD LAB - CHEMISTRY [place] Performing Organization Address City/[facility]/ZIP Co de Phone Number [facility] [employer] [facility]) [address] [place] [address] * KEVIN BLOOD SCREEN W/REFLEX TITER (12/12/2019 9:51 AM CDT) KEVIN IgG None Detected None Detected 12/14/2019 11:34 PM CDT [facility] [employer] ([facility]) Comment: If suspicion of connective tissue disease is strong and KEVIN EIA is negative, consider testing for KEVIN by IFA ([id number]). INTERPRETIVE INFORMATION: Anti-Nuclear Antibodies (KEVIN), IgG by HALI Antinuclear Antibodies (KEVIN), IgG by HALI: KEVIN specimens are screened using enzyme-linked immunosorbent assay (HALI) methodology. All HALI results reported as Detected are further tested by indirect fluorescent assay (IFA) using HEp-2 substrate with an IgG-specific conjugate. The KEVIN HALI screen is designed to detect antibodies against dsDNA, histones, SS-A (Ro), SS-B (La), Do, Do/ROAD GRADER, Scl-70, Shyanne-1, centromeric proteins, other antigens extracted from the HEp-2 cell nucleus. KEVIN HALI assays have been reported to have lower sensitivities than KEVIN IFA for systemic autoimmune rheumatic diseases (SARD). Negative results do not necessarily rule out SARD. Performed By: [facility] [address] [place] [address] Hydraulic Billet Maker: Cielo Read MD Blood BLOOD SPECIMEN / Unknown Lab Venipuncture / Unknown 12/12/2019 9:51 AM CDT 12/12/2019 11:02 AM CDT Abby Jaquez ROUTE CONTRACTOR-SALES AND MARKETING ASSISTANT LAB - CHEMI STRY ORDERABLES [facility] [employer] [facility]) [address] [place] [address], [facility] * MICROSOMAL ANTIBODY LIVER/KIDNEY (12/12/2019 9:51 AM CDT) Liver/Kidney Microsomal Antibody IgG <1:20 <1:20 12/15/2019 4:35 PM CDT [facility] [employer] ([facility]) Comment: INTERPRETIVE INFORMATION: Wzexh-Gicmtc-Izgykeygt Abs, IgG Liver-Kidney Microsome IgG antibody (anti-LKM), as detected by indirect immunofluorescent antibody (IFA) techniques, may be observed in patients with autoimmune hepatitis type 2 (AIH-2), AIH-2 associated with autoimmune xjxwwiiwtgvbvcpyog-wuanqtyyfbu-ybilxcocwn dystrophy (APECED), viral hepatitis C or D, and some forms of drug-induced hepatitis. This IFA does not differentiate among the four types of LKM antibodies (LKM-1, LKM-2, LKM-3, and a fourth type that recognizes CY and CY antigens). Of these, anti-LKM-1 (cytochrome [id number]) IgG antibodies are considered specific for AIH-2. Test developed and characteristics determined by [employer]. See Compliance Statement D: [email or web address] Performed By: [place] [address] Hydraulic Billet Maker: Cielo Read MD Blood BLOOD SPECIMEN / Unknown Lab Venipuncture / Unknown 12/12/2019 9:51 AM CDT 12/12/2019 11:02 AM CDT Abby Jaquez ROUTE CONTRACTOR-SALES AND MARKETING ASSISTANT LAB - CHEMI STRY ORDERABLES Performing Organization Address [facility]/ZIP Co de Phone Number [facility]) [address] [place] [address] * TRANSFERRIN (12/12/2019 9:51 AM CDT) Transferrin 222 174 - 382 mg/dL 12/12/2019 1:19 PM CDT [facility] Transferrin Saturation % 24 16 - 50 % 12/12/2019 1:19 PM CDT [facility] Blood BLOOD SPECIMEN / Unknown Lab Venipuncture / Unknown 12/12/2019 9:51 AM CDT 12/12/2019 12:46 PM CDT Tamir Becerra MD LAB - CHEMISTRY [place] [id number] [place] [address], [facility] [phone] * CERULOPLASMIN (12/12/2019 9:51 AM CDT) Ceruloplasmin 23 20 - 60 mg/dL 12/12/2019 1:18 PM CDT [facility] Blood BLOOD SPECIMEN / Unknown Lab Venipuncture / Unknown 12/12/2019 9:51 AM CDT 12/12/2019 12:46 PM CDT Abby Jaquez ROUTE CONTRACTOR-SALES AND MARKETING ASSISTANT LAB - CHEMI STRY ORDERABLES Performing Organization Address [facility]/ZIP Co de Phone Number [address] [address], [facility] [phone] * [id number] BLOOD (12/12/2019 9:51 AM CDT) Pathologist [facility] Slzzg-0-Jxrcwe ypsin 182 90 - 200 mg/dL 12/12/2019 11:32 AM CDT [facility] Blood BLOOD SPECIMEN / Unknown Lab Venipuncture / Unknown 12/12/2019 9:51 AM CDT 12/12/2019 11:02 AM CDT Abby Jaquez ROUTE CONTRACTOR-SALES AND MARKETING ASSISTANT LAB - CHEMI STRY ORDERABLES Performing Organization Address [facility] Co de Phone Number [address] [address], [facility] [phone] * IRON BLOOD (12/12/2019 9:51 AM CDT) Pathologist [facility] Iron 66 40 - 150 mcg/dL 12/12/2019 1:19 PM CDT [facility] Blood BLOOD SPECIMEN / Unknown Lab Venipuncture / Unknown 12/12/2019 9:51 AM CDT 12/12/2019 12:46 PM CDT Tamir Becerra MD LAB - CHEMISTRY [place] [address] [address], [facility] [phone] * HEPATITIS B SURFACE ANTIBODY (12/12/2019 9:51 AM CDT) Pathologist [facility] Hepatitis B Virus Surface Antibody Non-react abdirahman Non-react abdirahman 12/12/2019 1:37 PM CDT [facility] Comment: < 8 mIU/mL Hepatitis B surface Antibody (HBsAb). Nonreactive for HBsAb - individual is considered not immune to Hepatitis B Virus infection. Hepatitis B Surface Antibody Quantitative 0.3 <8.0 mIU/mL 12/12/2019 1:37 PM CDT [facility] Comment: Hepatitis B Surface Antibody Numeric Result Interpretation: Nonreactive: <8.0 mIU/mL Indeterminate: 8.0 - 12.0 mIU/mL Reactive: >12.0 mIU/mL Blood BLOOD SPECIMEN / Unknown Lab Venipuncture / Unknown 12/12/2019 9:51 AM CDT 12/12/2019 12:46 PM CDT Abby Jaquez APRN-SALES AND MARKETING ASSISTANT LAB - CHEMI STRY ORDERABLES Performing Organization Address City/[facility]/ZIP Co de Phone Number [address] [address], [facility] [phone] * HEPATITIS B CORE ANTIBODY (12/12/2019 9:51 AM CDT) HBc Antibody Total Non-reacti ve Non-reacti ve 12/12/2019 12:07 PM CDT [facility] Blood BLOOD SPECIMEN / Unknown Lab Venipuncture / Unknown 12/12/2019 9:51 AM CDT 12/12/2019 11:02 AM CDT Abby Jaquez APRN-SALES AND MARKETING ASSISTANT LAB - CHEMI STRY ORDERABLES Performing Organization Address City/[facility] Co de Phone Number [address] [address], [facility] [phone] * HEPATITIS B SURFACE ANTIGEN W RFLX CONFIRMATION (12/12/2019 9:51 AM CDT) Hepatitis B Virus Surface Antigen Non-reacti ve Non-reacti ve 12/12/2019 11:49 AM CDT [facility] Blood BLOOD SPECIMEN / Unknown Lab Venipuncture / Unknown 12/12/2019 9:51 AM CDT 12/12/2019 11:02 AM CDT Abby Jaquez ROUTE CONTRACTOR-SALES AND MARKETING ASSISTANT LAB - CHEMI STRY ORDERABLES [facility] [address] [place] [address], [place] [phone] * (ABNORMAL) IGG BLOOD (12/12/2019 9:51 AM CDT) Pathologist [facility] IgG 2,317(H) 540-1,822 mg/dL 12/12/2019 1:19 PM CDT [facility] Blood BLOOD SPECIMEN / Unknown Lab Venipuncture / Unknown 12/12/2019 9:51 AM CDT 12/12/2019 12:46 PM CDT Tmair Becerra MD LAB - CHEMISTRY [place] Performing Organization Address [facility] Co de Phone Number [address] [address], [place] [phone] * HEPATITIS C ANTIBODY (12/12/2019 9:51 AM CDT) Pathologist [facility] Hepatitis C Antibody Non-react abdirahman Non-reac tive 12/12/2019 12:07 PM CDT [facility] Comment:Hepatitis C Antibody screen indicates no [...] CDT 12/12/2019 11:02 AM CDT Abby Jaquez ROUTE CONTRACTOR-SALES AND MARKETING ASSISTANT LAB - CHEMI STRY ORDERABLES Performing Organization Address City/[facility]/ZIP Co de Phone Number [address] [address], [place] [phone] * US LIVER BIOPSY (10/22/2019 9:57 AM [...] evaluation, please review the evaluation forms in [facility]. For details on monitored clinical parameters during the intra-service sedation time, please review the procedure nurse documentation in [facility]. This report was electronically signed by [...] evaluation, please review the evaluation forms in [facility]. For details on monitored clinical parameters during the intra-service sedation time, pleasereview the procedure nurse documentation in [facility]. This report was electronically signed by DERRELL VELIZ on 10/22/2019 10:33AM . Ordering Provider Unlisted ORDERAB LES * (ABNORMAL) HEPATIC FUNCTION PANEL (10/22/2019 8:36 AM CDT) Protein Total 7.9 6.0 - 8.3 g/dL 020 9:13 AM T [facility] Albumin 3.1(L) 3.4 - 5.0 g/dL 10/22/2019 9:13 AM [facility] Bilirubin Total 1.3(H) 0.2 - 1.2 mg/dL 05/2019 9:13 AM [facility] Bilirubin Conjugated 0.9(H) 0.0 - 0.5 mg/dL 10/22/2019 9:13 AM [facility] Bilirubin Unconjugated 0.4 Unconjugated Bilirubin is a calculated value: Reference ranges have not been established. mg/dL 10/22/2019 9:13 AM [facility] Alkaline Phosphatase 133 40 - 150 Units/L 10/22/2019 9:13 AM [facility] ALT 26 0 - 55 Units/L 10/22/2019 9:13 AM [facility] AST 60(H) 5 - 34 Units/L 10/22/2019 9:13 AM [facility] Albumin/Globulin Ratio 0.6(L) 1.1 - 2.3 10/22/2019 9:13 AM [facility] Blood BLOOD SPECIMEN / Unknown Venipuncture / Unknown 10/22/2019 8:36 AM CDT 10/22/2019 8:41 AM CDT García Levine MD LAB - CHEMISTRY ORDYazmin VILLA [facility] Organization Address City/State/ZIP Co de Phone Number [facility] [address] [place] [phone], [facility] [phone] * GA LIVER ELASTOGRAPHY (03/25/2019 10:57 PM MUD JACK OPERATOR) Narrative Nitesh Galvan MD - 03/25/2019 10:57 PM MUD JACK OPERATOR Nitesh Galvan MD 03/25/2019 10:57 PM Diagnosis: [...] patients with nonalcoholic fatty liver disease. Gastroenterology 2019;156:6110-7463. Meir MS, Kate R, Van Natmarcie ML, [...] FIB4 score (Long et al. [employer] 2019;3:4058-6721) or NAFLD Fibrosis score (Melvin et al. Clinical Gastroenterology and Hepatology 2019;17:5456-9012. from routine clinical data. 3. Liver stiffness [...] change as additional supporting data becomes available. [email or web address] Nitesh Bonilla MD PROCEDURE/ MINOR SURGICAL ORDERABLES * (ABNORMAL) GLUCOSE ACCUCHECK (05/13/2016 9:07 AM MUD JACK OPERATOR) Only the most recent of6 resultswithin the time period is included. Glucose, Fingerstick 244(H) 70-115mg/d L mg/dL [facility] Comment:Knitting Machine Fixer: ALOK MCKEON 05/13/2016 9:07 AM MUD JACK OPERATOR Yamil Luther MD LAB - CHEMISTRY [place] [facility] ([facility] * HCG URINE QUALITATIVE - POCT (IP) [facility] (05/13/2016 7:22 AM MUD JACK OPERATOR) Only the most recent of12 resultswithin the time period is included. NEGATIVE [facility] ([facility] Comment:Knitting Machine Fixer: JAS DAY 05/13/2016 7:22 AM MUD JACK OPERATOR Yamil Luther MD LAB - POINT OF CARE ORDERABLES Performing Organization Address [facility]/ZIP Co de Phone Number [facility] GALI (TAMMY) * CULTURE AEROBIC (03/27/2015 9:57 AM MUD JACK OPERATOR) Culture Aerobic No Growth at 1 week [facility] Gram Stain [facility] Comment:donor ring only Cornea 03/27/2015 9:57 AM MUD JACK OPERATOR 03/28/2015 11:58 AM MUD JACK OPERATOR Narrative [facility] - 04/03/2015 12:20 PM MUD JACK OPERATOR Specimen Type->Cornea Gram Stains are routinely screened for the presence of Polymorphonuclear Cells. Original canceled order as anaerobic culture [id number]. Yamil Luther MD LAB - MICROBIOLOGY O RDERABLES Performing Organization Address [facility] Co de Phone Number [address] [phone] * CULTURE URINE (01/21/2015 9:16 PM MUD JACK OPERATOR) Culture Urine Less than 10,000 CFU/ML of Normal Urogenital/ Skin Ailyn [facility] Comment: Urine specimen (specimen) URINE / Unknown 01/21/2015 9:16 PM MUD JACK OPERATOR 01/21/2015 9:22 PM MUD JACK OPERATOR Narrative [facility] - 01/23/2015 10:28 AM MUD JACK OPERATOR Specimen Type->Urine Rosie Squires MD LAB - MICROBIOLOGY O RDERABLES Performing Organization Address [facility]/ZIP Co de Phone Number [address] [phone] * CT ABDOMEN PELVIS WO CONTRAST (01/21/2015 7:32 PM MUD JACK OPERATOR) Only the most recent of2 resultswithin the time period is included. Anatomical Region Laterality Modality Abdomen, Pelvis Other Impressions 01/22/2015 8:46 AM MUD JACK OPERATOR IMPRESSION: 1. No evidence of nephrolithiasis, hydroureteronephrosis [...] 8:46 AM . Narrative 01/22/2015 8:46 AM MUD JACK OPERATOR EXAMINATION: Computed tomography (CT) of the abdomen [...] Yellow, Colorless, Light Yellow [facility] Clarity UA Clear Clear [facility] Specific [place] UA 1.021 1.001 - 1.030 [facility] pH UA 5.5 5.0 - 8.0 [facility] Protein UA Negative <=20 mg/dL [facility] Glucose UA >1000(A) Negative mg/dL [facility] Ketone UA Negative Negative mg/dL [facility] Bilirubin UA Negative Negative mg/dL [facility] Blood UA Negative Negative [facility] Nitrite UA Negative Negative [facility] Leukocyte Esterase Negative Negative [facility] Urobilinogen UA <2.0 <2.0 mg/dL [facility] RBC UA 1 0 - 8 /HPF [facility] [facility] WBC UA <1 0 - 2 /HPF [facility] Squamous Epithelial Cells UA 3(H) 0 - 1 /HPF [facility] Mucus UA Rare(A) None /LPF [facility] Urine specimen (specimen) 12/11/2014 3:37 PM CDT 12/11/2014 3:46 PM CDT Simon Malone MD LAB - URINALYSIS ORD ERABLES [address] [phone] * (ABNORMAL) DIFFERENTIAL MANUAL (01/27/2014 9:01 PM MUD JACK OPERATOR) WBC (corrected for NRBC) 10.4 10 3/uL [facility] Total Cell Count 100 [facility] Neutrophils Absolute Manual 5.72 1.60 - 7.00 10 3/uL [facility] Comment:(BANDS+SEGS) x WBC = NEUT # (ANC) Lymphocyte Absolute Manual 3.64(H) 0.80 - 2.90 10 3/uL [facility] Monocytes Absolute Manual 0.62 0.14 - 0.66 10 3/uL [facility] Eosinophils Absolute Manual 0.42(H) 0.00 - 0.22 10 3/uL [facility] Neutrophil % Manual 55 30 - 60 % [facility] Lymphocyte % Manual 35 20 - 45 % [facility] Monocytes % Manual 6 2 - 10 % [facility] Eosinophils % Manual 4 1 - 6 % [facility] Platelet Estimate Adequate Adequate [facility] RBC Morphology Normal [facility] Blood specimen (specimen) BLOOD SPECIMEN / Unknown 01/27/2014 9:01 PM MUD JACK OPERATOR 01/27/2014 9:18 PM MUD JACK OPERATOR Jose Murray MD LAB - HEMATOLOGY ORD ERABLES [address] [phone] * GLUCOSE - POINT OF CARE (AMB) [facility] (01/12/2014 8:24 PM CDT) Only the most recent of4 resultswithin the time period is included. Simon Malone MD LAB - POINT OF CARE ORDERABLES [facility] RADIOLOGY * (ABNORMAL) INFLUENZA A+B ANTIGEN RAPID (01/12/2014 7:34 PM CDT) Influenza A Rapid Test Positive(A) Negative [facility] Influenza B Rapid Test Negative Negative [facility] Nasopharyngeal SPECIMEN FROM NASOPHARYNGEAL STRUCTURE / Unknown 01/12/2014 7:34 PM CDT 01/12/2014 7:55 PM CDT Narrative [facility] - 01/12/2014 8:22 PM CDT Specimen [...] by calling the Director of Microbiology at [phone]. Simon Malone MD LAB - MICROBIOLOGY O RDERABLES [id number] [place] [address], [facility] [phone] * XR CHEST 2VW (01/12/2014 7:14 PM [...] . Simon Mal[facility] Care Teams Post Acute Care Nurse Relationship Specialty Start Date End Date Malika Campbell, ROUTE CONTRACTOR-SALES AND MARKETING ASSISTANT [address] [place] [address] PCP - General 04/09/22
--- OUTSIDE RECORDS SUMMARY | 2024-05-04 20:30 | XMS_ITS | Encounter Summary ---
Author Organization [facility] Address [address] [place] [address] Care Team Providers Care Produce Sorter Name Role Phone Unavailable Primary Care Provider Unavailabl e Reason for Visit * Reason Onset Date Comments Broken humerus 12/20/2023 [place] @ [facility] OFF[facility] Encounter Details Date Type Department Care Team (Late st Contact Info) Description 12/20/2023 Telephone [facility] Admitting [address] [place] [address] [place] [address] [place] [address] Broken humerus ([place] @ DR. [...]
--- OUTSIDE RECORDS SUMMARY | 2024-05-04 20:30 | XMS_ITS | Clinical Summary ---
Author Organization [facility] Address [address] [place] [address] Phone Care Team Providers Care Medical Secretary Receptionist Name Role Phone Unavailable Primary Care Provider [...] mL 4 Active naloxone (NARCAN) 4 mg/spray [place], Non-Aerosol EMERGENCY USE ONLY: Administer 1 spray [...] this topic Medical Devices Implanted Type Area Wood Panel Inspector Device Identifier Shelf Expiration Date Model / Serial / Lot Tube Feeding [employer] 18fr 0100-18 - [id number] Implanted:Qt y: 1 on 12/26/2023 by Dileep Dexter MD at [facility] Feeding Device N/A: Abdomen [employer]ARD [id number] 06/06/2026 0100-18 / / [id number] Procedures Procedure Name Priority Date/Time Associated Diagnosis Comments HEMOGLOBIN A1C Stat 11/15/2023 10:08 AM CDT from Last 3 Months or Most Recently Relevant to Health Maintenance Results * (ABNORMAL) HEMOGLOBIN A1C (11/15/2023 10:08 AM CDT) HEMOGLOBIN A1C 11.0(H) <=5.6 % 11/15/2023 1:11 PM CDT [facility] EST. AVG GLUCOSE, A1C 269 mg/dL 11/15/2023 1:11 PM CDT [facility] Blood Venipuncture / Unknown 11/15/2023 10:08 AM CDT 11/15/2023 10:14 AM CDT Narrative [facility] - 11/15/2023 1:11 PM CDT HGB A1C INTERPRETATION NORMAL: <5.7% PRE-DIABETES: 5.7 - 6.4% DIABETES: 6.5% OR GREATER [employer] [facility] CHEMISTR[facility] ORDERABLES Final Resu lt [facility] [employer] [facility] CLIA# [id number] [place] [address] from Last 3 Months or Most Recently Relevant to Health Maintenance Insurance [facility] PLAN MEDICAID [employer] Commercial Advance Directives For more information, please contact: [phone] * Full Code (Latest Code Status on File) Date Activated Date Inactivated Comments 12/09/2023 9:38 PM 12/30/2023 8:30 PM * Full Code Date Activated Date Inactivated Comments 11/16/2023 7:48 PM 11/17/2023 12:44 PM * Full Code Date Activated Date Inactivated Comments 11/16/2023 7:59 AM 11/16/2023 7:48 PM
--- OUTSIDE RECORDS SUMMARY | 2024-05-04 20:30 | XMS_ITS | Encounter Summary ---
Author Organization [facility] Address [address] [place] [address] Care Team Providers Care Anesthesiologist Physician Name Role Phone Unavailable Primary Care Provider Unavailabl e Reason for Visit * Reason Onset Date Comments left ft wound infection 12/10/2023 Spoke freya/ Meme @ Dr. Daphnie zabala Encounter Details Date Type Department Care Team (Late st Contact Info) Description 12/10/2023 Telephone [facility] Admitting [address] [place] [address] [place] [address] [place] [address] left ft wound infection (Spoke [...]
--- OUTSIDE RECORDS SUMMARY | 2024-05-04 20:30 | XMS_ITS | Clinical Summary ---
Author Organization [facility] Address [address] [place] [address] Care Team Providers Care Polymer Tester Name Role Phone Malika Campbell BENZOL OPERATOR-ADJUNCT PHYSICAL EDUCATION INSTRUCTOR Primary Care Provider [phone] Source Comments [facility],non-owned Affiliates and Associated Physician Practices is amultiple site organization consisting of ambulatory clinics and hospital sitesin [place], [place], [place] and [place]. This disclosure is being madepursuant to the Care Everywhere program and may not contain all information available regarding this patient. Last updated 17.[facility] Allergies Active Allergy Reactions Criticality Noted [...] Comments Blood Pressure 126/83 03/24/2022 4:09 PM RESEARCH PROGRAM MANAGER Pulse 96 03/24/2022 4:09 PM RESEARCH PROGRAM MANAGER Temperature 35.9 C (96.7 F) 03/24/2022 4:09 PM RESEARCH PROGRAM MANAGER Respiratory Rate 18 03/24/2022 4:09 PM RESEARCH PROGRAM MANAGER Oxygen Saturation 100% 03/24/2022 4:09 PM RESEARCH PROGRAM MANAGER Inhaled Oxygen Concentration - - Weight 84.8 kg (187 lb) 04/09/2022 11:15 AM RESEARCH PROGRAM MANAGER Height 170.2 cm (5' 7 ) [...] Management General On track( 023 11:22 AM RESEARCH PROGRAM MANAGER) David Shook, RN Note: Expected end date: Interventions: Take all medications as prescribed Let your doctor know right away about any changes in your medications Make sure to request a refill of your medication at least one week prior to your last dose Procedures Procedure Name Priority Date/Time Associated Diagnosis Comments COMPREHENSIVE METABOLIC PANEL STAT 03/24/2022 4:51 PM RESEARCH PROGRAM MANAGER HEMOGLOBIN A1C Routine 09/14/2020 3:05 AM CDT HEPATITIS C ANTIBODY Routine 12/12/2019 9:51 AM CDT Cirrhosis of liver without ascites, unspecified hepatic cirrhosis type (HCC) from Last 3 Months or Most Recently Relevant to Health Maintenance Results * (ABNORMAL) COMPREHENSIVE METABOLIC PANEL (03/24/2022 4:51 PM RESEARCH PROGRAM MANAGER) BUN 10 7 - 26 mg/dL 03/24/2022 5:42 PM [facility] Creatinine 0.55(L) 0.56 [...] 8.4 - 10.2 mg/dL 03/24/2022 5:42 PM RESEARCH PROGRAM MANAGER [facility] Protein Total 7.2 6.0 - [...] Unknown Venipuncture / Unknown 03/24/2022 4:51 PM RESEARCH PROGRAM MANAGER 03/24/2022 5:03 PM RESEARCH PROGRAM MANAGER Deonna Mukherjee PA-C LAB - CHEMISTRY OR DERABLES Performing Organization Address [facility]/State/[facility] Co de Phone Number [facility] [address] [place] [address], [facility] [[email or web address]] [phone] * (ABNORMAL) HEMOGLOBIN A1C (09/14/2020 3:05 AM CDT) Hemoglobin A1c 7.0(H) 4.2 - 5.6 % 09/14/2020 4:08 AM CDT -[facility] Estimated Average Glucose 154 mg/dL 09/14/2020 4:08 AM CDT [facility] Blood BLOOD SPECIMEN / Unknown Lab Venipuncture / Unknown 09/14/2020 3:05 AM CDT 09/14/2020 3:37 AM CDT Narrative [facility] - 09/14/2020 4:08 AM CDT The following cutoff levels are recommended by [place] [employer]. A1c > 6.5% : considered [...] MD LAB - CHEMISTRY ORD ERABLES [facility] [address] [place] [address] * HEPATITIS C ANTIBODY (12/12/2019 9:51 AM CDT) [facility] Hepatitis C Antibody Non-react abdirahman Srivastava-regissel vance 12/12/2019 12:07 PM CDT [facility] Comment:Hepatitis C [...] Jaquez ANKIT-ERIC LAB - CHEMI STRY ORDERABLES [facility] [address] [place] [address], [facility] [[email or web address]] [phone] from Last 3 Months or Most Recently Relevant to Health Maintenance Advance Directives * Full Code (Latest Code Status on File) Date Activated Date Inactivated Comments 09/13/2020 4:58 AM 09/14/2020 9:57 AM Care Teams Polymer Tester Relationship Specialty Start Date End Date Malika Campbell APRN-CNP [address] [place] [phone] PCP - General 04/09/22
--- OUTSIDE RECORDS SUMMARY | 2024-05-04 20:30 | XMS_ITS | Referral Summary ---
Author Organization [facility] Address [address] [place] [address] Care Team Providers Care Shirrer Name Role Phone Barbara Oliva MD Primary Care Provider Miscellaneous, Not In File Unavailable Unava ilable Encounters Date Type Department Care Team Description 04/20/2024 10:00 AM RANCH SUPERVISOR Office Visit [facility] Radiology, Interventional Radiology [address] [place] [phone] Sophie Herman PA Dysphagia, oropharyngeal (Primary Dx); Gastrostomy tube in place (HCC) 04/19/2024 Telephone [facility] Radiology, Interventional Radiology [address] [place] [address] [phone] Iker Neal 04/19/2024 Telephone [facility] Radiology, Interventional Radiology [address] [place] [address] [phone] Luma Bach Scheduling Appointments 04/13/2024 Telephone [facility] Radiology, Interventional Radiology [address] [place] [address] [phone] Jessica Beltran RN Appointment 03/26/2024 Telephone [facility] [address] [facility] 4th [address] [place] [address] Yuni Balderrama 02/27/2024 9:50 AM RANCH SUPERVISOR Office Visit [facility] [address] [facility] 4[address] [place] [address] Traumatic closed displaced fracture of surgical neck of right humerus, with routine healing, subsequent encounter (Primary Dx) 02/23/2024 Telephone [facility] Radiology [facility] [address] [place] [address] Naila Sheehan, KILLIAN 02/14/2024 Telephone [facility] Radiology [address] [place] [phone] Loni Aragon RN 02/14/2024 Orders Only [facility] Radiology [address] [place] [phone] Loni Aragon RN 02/13/2024 Treatment [facility] PATHOLOGY [address] [facility] [address] [place] [address] Andie Byrne MD 01/26/2024 9:52 PM RANCH SUPERVISOR - 02/13/2024 1:30 PM RANCH SUPERVISOR Hospital Encounter [address] [phone] Néstor Blevins MD [place], MD Roger Rubalcava, MD Roberta Hamilton, MD Alberta Yin, Kassidy Rodrigez MD Pressure injury of sacral region, stage 4 (HCC) (Primary Dx); Other closed displaced fracture of proximal end of right humerus, initial encounter; Severe malnutrition (CMS/HCC); Oropharyngeal dysphagia Discharge Disposition: Discharge to [facility] 02/07/2024 Orders Only [address] [phone] Jorge Carolina MD PhD 02/06/2024 Orders Only [facility] Neuro Interventional Radiology [address] [place] [phone] Shelley Bal RN from Last 3 Months [...] per tube 1 tablet (50 mcg total) 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 No [facility] Problem Noted Date Diagnosed Date Acute blood loss anemia 02/02/2024 Assessment & Plan (02/12/2024 12:56 PM RANCH SUPERVISOR): Present on admit, f/u hemoglobin was 6.6 [...] 01/27/2024 Assessment & Plan (02/12/2024 12:58 PM RANCH SUPERVISOR): INR 1.39 on admission. History of Doan cirrhosis. Other contibutors may be DOAC vs nutritional. Treated with vitamin K PO 01/26-01/28 F/u INR 1.51 in setting of cirrhosis. Hx chronic LUE DVT. Lovenox held due to anemia. No recent spontaneous bleeding noted. Monitor coags PRN Cirrhosis 01/27/2024 Overview (02/08/2024): History of Doan cirrhosis as per patient. Patient follows with [facility] liver doctor, last seen couple of years ago. -CT11/5: changes of cirrhosis with stigmata of portal hypertension including splenomegaly, recanalized periumbilical vein, small volume ascites, and mild diffuse anasarca. -Liver enzyme elevation could be from DOAN cirrhosis, ongoing antibiotics. -Hepatitis panel negative Assessment & Plan (02/12/2024 12:46 PM RANCH SUPERVISOR): History of Doan cirrhosis as per patient. Patient follows with [facility] liver doctor, last seen [...] Continue to monitor. Plan OP return to [facility] liver clinic, strongly encouraged patient to call for follow up. Chronic deep vein thrombosis (DVT) of left upper extremity 01/26/2024 Assessment & Plan (02/12/2024 12:57 PM RANCH SUPERVISOR): Known chronic DVT in left upper extremity distal brachial vein noted 12/2023, home Lovenox held due to recurring anemia requiring blood transfusions and did not tolerate therapeutic AC. Received recent Vit K supplementation this admit. Acute osteomyelitis of sacrum (CMS/HCC) 01/26/20 Assessment & Plan (02/10/2024 1:17 PM RANCH SUPERVISOR): Initial encounter, likely has been evolving since [...] needed. Assessment & Plan (02/12/2024 12:59 PM RANCH SUPERVISOR): -Prior history: General surgery consulted 01/09 at [...] NGTD. -will need a line placed for nursing home IV antibiotics, unable to use RUE (recent [...] 11/24. Fax weekly Labs (CBC, CMP) To: [facility] ([phone]) Complication associated with peripherally inserted central catheter 01/17/2024 Renal abscess 01/17/2024 Assessment & Plan (02/12/2024 12:45 PM RANCH SUPERVISOR): POA, associated with pyelonephritis, as above. Resolved. Assessment & Plan (02/10/2024 1:14 PM RANCH SUPERVISOR): 37 y.o. female with PMH including cirrhosis of the liver, DM2, R foot OM with partial amputation who was transferred to [facility] 01/25 for pyelonephritis and renal abscess. [...] with wound vac placement and transferred to [facility]. 01/25 admission to [facility]. Repeat CT A/P shows stable/slight decrease [...] 01/03/2024 Assessment & Plan (02/12/2024 12:45 PM RANCH SUPERVISOR): Initially admitted to OSH with prolonged hospitalization s/p G-tube on 12/26/2023 for TFs related to prior dysphagia. 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), Acute dysphagia mostly resolved, presents with mild [...] elsewhere 12/11/2023 Acute respiratory failure with hypoxia ([facility]/HCC) 12/10/2023 Acute upper GI hemorrhage 12/10/2023 Aspiration pneumonia of both lower lobes due to gastric secretions 12/10/2023 Bacteremia 12/10/2023 Elevated troponin 12/10/2023 High anion gap metabolic acidosis 12/10/2023 Osteomyelitis of left lower extremity ([facility]/HCC) 12/10/2023 Other specified abnormal findings of blood chemi stry 12/10/2023 Pneumonitis due to inhalation of food and vomit ([facility]/HCC) 12/10/2023 Melena 12/09/2023 Closed fracture of proximal end of right humerus with routine healing 12/05/2023 NSTEMI (non-ST elevated myocardial infarction) ( [facility]) 12/05/2023 Diabetic foot infection ([facility]/HCC) 12/05/2023 Acute hematogenous osteomyelitis of left foot Traumatic closed displaced f racture of surgical neck of right humerus, with routine healing, subsequent encounter 12/01/2023 Assessment & Plan (02/12/2024 12:42 PM RANCH SUPERVISOR): Hx of Right shoulder fx in 11/2023, [...] 12/01/2023 Assessment & Plan (02/10/2024 12:56 PM RANCH SUPERVISOR): -Pt with ICU admission 12/08 with enterobacter bacteremia and UTI. Represented to OSH 01/[address] c/f pyelonephritis and multiple renal abscesses to L kidney. She was started on Meropenem. UA later grew ESBL e coli and enterobacter aerogenes. Transferred to [facility] for IR evaluation - BCx 01/08 [...] 09/13/2020 Assessment & Plan (02/12/2024 12:44 PM RANCH SUPERVISOR): Continue OSH insulin regimen: Lantus 8 Qpm + SSI, carb consistent diet. Continue to monitor serial accuchecks A1c previously 10.6, (poor OP control) and not checked this admit. Improved glucose control this admit. Anticipate close OP monitoring and follow up for goal care with underlying cirrhosis. NELIDA (acute kidney injury) 09/13/2020 Assessment & Plan (02/12/2024 12:57 PM RANCH SUPERVISOR): Associated with hyperkalemia. Likely from decreased p.o. 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 Uric acid normal. ESR CRP elevated Examination benign, would hold off on MRI for now Diarrhea 01/27/2024 02/05/2024 Assessment & Plan (01/27/2024 4:24 PM RANCH SUPERVISOR): Questionable diarrhea on admission to OSH. Patient reports normal bowel movements. Closed fracture of right proximal humerus 01/09/2024 02/04/2024 Anemia requiring transfusions 01/03/2024 02/03/2024 Assessment & Plan (01/27/2024 4:26 PM RANCH SUPERVISOR): Likely AoCD. Received 1 unit earlier in OSH admission. Hgb 8-9. - Hgb >7, blood consent in chart. Immunizations Name Administration Dates Next Due Influenza, Trivalent, Preservative Free, Intramu scular 02/03/2024 Social History Tobacco Use Types Packs/Day Years Used Date Smoking Tobacco: Every Day Cigarettes Passive Smoke Exposure: Never Smokeless Tobacco: Never Tobacco Cessation:Ready to Q uit: Not Asked; Counseling Given: Not Answered [facility] Answer Date Recorded In the past 12 months has [employer], [employer], oil, or water [employer] threatened to shut off services in your [...] often do you attend chur ch or zoroastrian services? 1 to 4 times per year 01/29/2024 Do you belong to any clubs o r organizations such as scientologist groups, unions, fraternal or athletic groups, or [...] any time in the past 12 [facility], were you homeless or living [...] on file Legal Sex Female 5:35 AM RANCH SUPERVISOR Gender Identity Not on file Sexual Orientation Not on file Last Filed Vital Signs Vital Sign Reading Time Taken Comments Blood Pressure 116/80 02/13/2024 10:42 AM RANCH SUPERVISOR Pulse 106 02/13/2024 10:42 AM RANCH SUPERVISOR Temperature 37 C (98.6 F) 02/13/2024 5:38 AM RANCH SUPERVISOR Respiratory Rate 18 02/13/2024 5:38 AM RANCH SUPERVISOR Oxygen Saturation 95% 02/13/2024 10:42 AM RANCH SUPERVISOR Inhaled Oxygen Concentration - - Weight 72.6 kg (160 lb) 04/20/2024 10:04 AM RANCH SUPERVISOR Height 170.2 cm (5' 7 ) 04/20/2024 10:04 AM RANCH SUPERVISOR Body Mass Index 25.06 04/20/2024 10:04 AM RANCH SUPERVISOR Plan of Treatment Not on file Medical Devices Implanted Type Area Insights Analyst Device Identifier Shelf Expiration Date Model / Serial / Lot Musculoskeletal Transplant [id number] Mm Allograft Frozen Graft Bone Fibula Shaft [id number] - [id number] - [id number] Implanted:Qty: 1 on 01/31/2024 by Monika Gilbert MD at [facility] Bone Right: Humerus Musculoskeletal Transplant [id number] 07/06/2027 [id number] / [id number] / Synthes Lcp Combi Philos [id number] 5 Hole Shaft Lock Compression 241.903 - [id number] Implanted:Qty: 1 on 01/31/2024 by Monika Gilbert MD at [facility] Plate Right: Humerus Synthes 241.903 / / Synthes 3.5mm 2.9mm 44mm Self Tap Lock Stardrive Conical Head T15 Full 212.134 - [id number] Implanted:Qty: 1 on 01/31/2024 by Monika Gilbert MD at [facility] Screw Right: Humerus Synthes 212.134 / / Synthes 3.5mm 6mm 60mm 2.5mm Self Tap Small Hexagonal Socket Low Profile 204.860 - [id number] Implanted:Qty: 1 on 01/31/2024 by Monika Gilbert MD at [facility] Screw Right: Humerus Synthes 204.860 / / Synthes 3.5mm 6mm 32mm 2.5mm Self Tap Small Hexagonal Socket Low Profile 204.832 - [id number] Implanted:Qty: 2 on 01/31/2024 by Monika Gilbert MD at [facility] Screw Right: Humerus Synthes 204.832 / / Synthes 3.5mm 54mm Self Tap Lock Stardrive T15 Full Thread Screw Bone 02.212.054 - [id number] Implanted:Qty: 4 on 01/31/2024 by Monika Gilbert MD at [facility] Screw Right: Humerus Synthes 02.212.0 54 / / Synthes 3.5mm 2.9mm 32mm Self Tap Lock Stardrive Conical Head T15 Full 212.112 - [id number] Implanted:Qty: 2 on 01/31/2024 by Monika Gilbert MD at [facility] Screw Right: Humerus Synthes 212.112 / / Synthes 3.5mm 2.9mm 46mm Self Tap Lock Stardrive Conical Head T15 Full 212.136 - [id number] Implanted:Qty: 1 on 01/31/2024 by Monika Gilbert MD at [facility] Screw Right: Humerus Synthes I 212.136 / / Synthes 3.5mm 2.9mm 42mm Self Tap Lock Stardrive Conical Head Full Thread 212.118 - [id number] Implanted:Qty: 1 on 01/31/2024 by Monika Gilbert MD at [facility] Screw Right: Humerus Synthes I 212.118 / / Synthes 3.5mm 2.9mm 48mm Self Tap Lock Fix Angle Low Profile Pelvis Full 212.120 - [id number] Implanted:Qty: 1 on 01/31/2024 by Monika Gilbert MD at [facility] Screw Right: Humerus Synthes I 212.120 / / Synthes 3.5mm 2.9mm 55mm Self Tap Lock Stardrive Conical Head Pelvis Full 212.123 - [id number] Implanted:Qty: 1 on 01/31/2024 by Monika Gilbert MD at [facility] Screw Right: Humerus Synthes 212.123 / / Explanted Type Area Insights Analyst Device Identifier Shelf Expiration Date Model / Serial / Lot Synthes 3.5mm 6mm 30mm 2.5mm Self Tap Small Hexagonal Socket Low Profile 204.830 - [id number] Explanted:Qty: 1 on 01/31/2024 by Monika Gilbert MD at [facility] Screw Right: Humerus Synthes 204.830 / / Procedures Procedure Name Priority Date/Time Associated Diagnosis Comments POCT GLUCOSE DEVICE Routine 02/13/2024 11:47 AM RANCH SUPERVISOR POCT GLUCOSE DEVICE Routine 02/13/2024 7 :56 AM RANCH SUPERVISOR EGFR Routine 02/12/2024 11:57 PM RANCH SUPERVISOR DIFFERENTIAL AUTO Routine 02/12/2024 11:57 PM RANCH SUPERVISOR HEPATIC FUNCTION PANEL Routine 11:57 PM RANCH SUPERVISOR PHOSPHORUS Routine 02/12/2024 11:57 PM RANCH SUPERVISOR MAGNESIUM Routine 02/12/2024 11:57 PM RANCH SUPERVISOR BASIC METABOLIC PANEL Routine 02/12/2024 11:57 PM RANCH SUPERVISOR CBC WITH AUTO DIFFERENTIAL Routine 02/12/2024 11:57 PM RANCH SUPERVISOR POCT GLUCOSE DEVICE Routine 02/12/2024 8 :27 PM RANCH SUPERVISOR POCT GLUCOSE DEVICE Routine 02/12/2024 5 :13 PM RANCH SUPERVISOR POCT GLUCOSE DEVICE Routine 02/12/2024 12:27 PM RANCH SUPERVISOR POCT GLUCOSE DEVICE Routine 02/12/2024 9 :21 AM RANCH SUPERVISOR POCT GLUCOSE DEVICE Routine 02/12/2024 8 :02 AM RANCH SUPERVISOR EGFR Routine 02/11/2024 11:54 PM RANCH SUPERVISOR DIFFERENTIAL AUTO Routine 02/11/2024 11:54 PM RANCH SUPERVISOR HEPATIC FUNCTION PANEL Routine 11:54 PM RANCH SUPERVISOR PHOSPHORUS Routine 02/11/2024 11:54 PM RANCH SUPERVISOR MAGNESIUM Routine 02/11/2024 11:54 PM RANCH SUPERVISOR BASIC METABOLIC PANEL Routine 02/11/2024 11:54 PM RANCH SUPERVISOR CBC WITH AUTO DIFFERENTIAL Routine 02/11/2024 11:54 PM RANCH SUPERVISOR POCT GLUCOSE DEVICE Routine 02/11/2024 8 :20 PM RANCH SUPERVISOR POCT GLUCOSE DEVICE Routine 02/11/2024 4 :42 PM RANCH SUPERVISOR POCT GLUCOSE DEVICE Routine 02/11/2024 7 :33 AM RANCH SUPERVISOR B RYDER C3 Routine 02/11/2024 12:30 AM RANCH SUPERVISOR B RYDER IGG Routine 02/11/2024 12:30 AM RANCH SUPERVISOR ANTIBODY IDENTIFICATION Routine 02/10/20 10:02 PM RANCH SUPERVISOR TRANSFUSION REACTION EVALUATION Timed 02/10/2024 8:51 PM RANCH SUPERVISOR DIRECT ANTIGLOBULIN TEST Timed 02/10/2024 8:51 PM RANCH SUPERVISOR EGFR Routine 02/10/2024 8:51 PM RANCH SUPERVISOR DIFFERENTIAL AUTO Routine 02/10/2024 8:5 1 PM RANCH SUPERVISOR TYPE AND SCREEN Timed 02/10/2024 8:51 PM RANCH SUPERVISOR HEPATIC FUNCTION PANEL Routine 8:51 PM RANCH SUPERVISOR PHOSPHORUS Routine 02/10/2024 8:51 PM RANCH SUPERVISOR MAGNESIUM Routine 02/10/2024 8:51 PM RANCH SUPERVISOR BASIC METABOLIC PANEL Routine 02/10/2024 8:51 PM RANCH SUPERVISOR CBC WITH AUTO DIFFERENTIAL Routine 02/10/2024 8:51 PM RANCH SUPERVISOR POCT GLUCOSE DEVICE Routine 02/10/2024 8 :28 PM RANCH SUPERVISOR POCT GLUCOSE DEVICE Routine 02/10/2024 5 :13 PM RANCH SUPERVISOR CENTRAL LINE PLACEMENT > 5 YEARS IP Routine 02/10/2024 3:32 PM RANCH SUPERVISOR POCT GLUCOSE DEVICE Routine 02/10/2024 12:31 PM RANCH SUPERVISOR POCT GLUCOSE DEVICE Routine 02/10/2024 8 :15 AM RANCH SUPERVISOR EGFR Routine 02/09/2024 9:52 PM RANCH SUPERVISOR DIFFERENTIAL AUTO Routine 02/09/2024 9:5 2 PM RANCH SUPERVISOR VANCOMYCIN LEVEL RANDOM Routine 02/09/20 9:52 PM RANCH SUPERVISOR HEPATIC FUNCTION PANEL Routine 9:52 PM RANCH SUPERVISOR PHOSPHORUS Routine 02/09/2024 9:52 PM RANCH SUPERVISOR MAGNESIUM Routine 02/09/2024 9:52 PM RANCH SUPERVISOR BASIC METABOLIC PANEL Routine 02/09/2024 9:52 PM RANCH SUPERVISOR CBC WITH AUTO DIFFERENTIAL Routine 02/09/2024 9:52 PM RANCH SUPERVISOR POCT GLUCOSE DEVICE Routine 02/09/2024 8 :32 PM RANCH SUPERVISOR POCT GLUCOSE DEVICE Routine 02/09/2024 5 :55 PM RANCH SUPERVISOR URINALYSIS, MICROSCOPIC ONLY STAT 02/09/2024 5:09 PM RANCH SUPERVISOR URINE CULTURE STAT 02/09/2024 5:09 PM RANCH SUPERVISOR URINALYSIS AND REFLEX TO MICROSCOPIC AND CULTURE STAT 02/09/2024 5:09 PM RANCH SUPERVISOR XR ABDOMEN AP 1 VIEW ED Urgent/IP Urgent 02/09/2024 4:09 PM RANCH SUPERVISOR POCT GLUCOSE DEVICE Routine 02/09/2024 12:51 PM RANCH SUPERVISOR POCT GLUCOSE DEVICE Routine 02/09/2024 7 :40 AM RANCH SUPERVISOR EGFR Timed 02/09/2024 12:07 AM RANCH SUPERVISOR CREATININE Timed 02/09/2024 12:07 AM RANCH SUPERVISOR VANCOMYCIN LEVEL RANDOM Routine 02/08/20 9:50 PM RANCH SUPERVISOR EGFR Routine 02/08/2024 9:50 PM RANCH SUPERVISOR DIFFERENTIAL AUTO Routine 02/08/2024 9:5 0 PM RANCH SUPERVISOR PROTIME-INR Routine 02/08/2024 9:50 PM RANCH SUPERVISOR HEPATIC FUNCTION PANEL Routine 9:50 PM RANCH SUPERVISOR PHOSPHORUS Routine 02/08/2024 9:50 PM RANCH SUPERVISOR MAGNESIUM Routine 02/08/2024 9:50 PM RANCH SUPERVISOR BASIC METABOLIC PANEL Routine 02/08/2024 9:50 PM RANCH SUPERVISOR CBC WITH AUTO DIFFERENTIAL Routine 02/08/2024 9:50 PM RANCH SUPERVISOR POCT GLUCOSE DEVICE Routine 02/08/2024 8 :31 PM RANCH SUPERVISOR POCT GLUCOSE DEVICE Routine 02/08/2024 5 :56 PM RANCH SUPERVISOR VANCOMYCIN LEVEL TROUGH Timed 02/08/20 1:55 PM RANCH SUPERVISOR POCT GLUCOSE DEVICE Routine 02/08/2024 11:40 AM RANCH SUPERVISOR POCT GLUCOSE DEVICE Routine 02/08/2024 8 :20 AM RANCH SUPERVISOR EGFR Routine 02/07/2024 9:30 PM RANCH SUPERVISOR DIFFERENTIAL AUTO Routine 02/07/2024 9:3 0 PM RANCH SUPERVISOR HEPATIC FUNCTION PANEL Routine 9:30 PM RANCH SUPERVISOR PHOSPHORUS Routine 02/07/2024 9:30 PM RANCH SUPERVISOR MAGNESIUM Routine 02/07/2024 9:30 PM RANCH SUPERVISOR BASIC METABOLIC PANEL Routine 02/07/2024 9:30 PM RANCH SUPERVISOR CBC WITH AUTO DIFFERENTIAL Routine 02/07/2024 9:30 PM RANCH SUPERVISOR POCT GLUCOSE DEVICE Routine 02/07/2024 8 :20 PM RANCH SUPERVISOR POCT GLUCOSE DEVICE Routine 02/07/2024 4 :41 PM RANCH SUPERVISOR POCT GLUCOSE DEVICE Routine 02/07/2024 12:22 PM RANCH SUPERVISOR MYCOLOGY (FUNGAL) CULTURE Routine 02/07/2024 11:30 AM RANCH SUPERVISOR TISSUE AEROBIC AND ANAEROBIC CULTURE AND GRAM STAIN Routine 02/07/2024 11:30 AM RANCH SUPERVISOR MYCOBACTERIOLOGY AFB CULTURE AND ACID-FAST STAIN Routine 02/07/2024 11:30 AM RANCH SUPERVISOR MYCOLOGY (FUNGAL) CULTURE AND STAIN Routine 02/07/2024 11:30 AM RANCH SUPERVISOR MYCOBACTERIOLOGY AFB CULTURE AND ACID-FAST STAIN Routine 02/07/2024 11:30 AM RANCH SUPERVISOR AEROBIC AND ANAEROBIC CULTURE AND GRAM STAIN Routine 02/07/2024 11:30 AM RANCH SUPERVISOR BIOPSY DEEP BONE IP Routine 02/07/2024 11:29 AM RANCH SUPERVISOR SURGICAL PATHOLOGY Routine 02/07/2024 11:15 AM RANCH SUPERVISOR POCT GLUCOSE DEVICE Routine 02/07/2024 8 :36 AM RANCH SUPERVISOR POCT GLUCOSE DEVICE Routine 02/07/2024 7 :46 AM RANCH SUPERVISOR VANCOMYCIN LEVEL TROUGH Timed 02/07/20 2:37 AM RANCH SUPERVISOR EGFR Routine 02/06/2024 9:36 PM RANCH SUPERVISOR DIFFERENTIAL AUTO Routine 02/06/2024 9:3 6 PM RANCH SUPERVISOR HEPATIC FUNCTION PANEL Routine 9:36 PM RANCH SUPERVISOR PHOSPHORUS Routine 02/06/2024 9:36 PM RANCH SUPERVISOR MAGNESIUM Routine 02/06/2024 9:36 PM RANCH SUPERVISOR BASIC METABOLIC PANEL Routine 02/06/2024 9:36 PM RANCH SUPERVISOR CBC WITH AUTO DIFFERENTIAL Routine 02/06/2024 9:36 PM RANCH SUPERVISOR POCT GLUCOSE DEVICE Routine 02/06/2024 9 :32 PM RANCH SUPERVISOR POCT GLUCOSE DEVICE Routine 02/06/2024 5 :33 PM RANCH SUPERVISOR POCT GLUCOSE DEVICE Routine 02/06/2024 11:52 AM RANCH SUPERVISOR POCT GLUCOSE DEVICE Routine 02/06/2024 8 :16 AM RANCH SUPERVISOR TROPONIN I HIGH-SENSITIVITY SERIES (BASELINE, 2HR, 4HR, 6HR) Timed 02/06/2024 6:53 AM RANCH SUPERVISOR EGFR Routine 02/05/2024 10:32 PM RANCH SUPERVISOR DIFFERENTIAL AUTO Routine 02/05/2024 10:32 PM RANCH SUPERVISOR HEPATIC FUNCTION PANEL Routine 10:32 PM RANCH SUPERVISOR PHOSPHORUS Routine 02/05/2024 10:32 PM RANCH SUPERVISOR MAGNESIUM Routine 02/05/2024 10:32 PM RANCH SUPERVISOR BASIC METABOLIC PANEL Routine 02/05/2024 10:32 PM RANCH SUPERVISOR CBC WITH AUTO DIFFERENTIAL Routine 02/05/2024 10:32 PM RANCH SUPERVISOR POCT GLUCOSE DEVICE Routine 02/05/2024 9 :13 PM RANCH SUPERVISOR POCT GLUCOSE DEVICE Routine 02/05/2024 5 :38 PM RANCH SUPERVISOR BLOOD CULTURE Routine 02/05/2024 3:25 PM RANCH SUPERVISOR BLOOD CULTURE Routine 02/05/2024 3:25 PM RANCH SUPERVISOR POCT GLUCOSE DEVICE Routine 02/05/2024 2 :10 PM RANCH SUPERVISOR POCT GLUCOSE DEVICE Routine 02/05/2024 9 :18 AM RANCH SUPERVISOR WOUND CARE Routine 02/05/2024 8:16 AM RANCH SUPERVISOR Pressure injury of sacral region, stage 4 (HCC) POTASSIUM, WHOLE BLOOD Timed 8:08 AM RANCH SUPERVISOR POTASSIUM LEVEL Timed 02/05/2024 7:45 AM RANCH SUPERVISOR POCT GLUCOSE DEVICE Routine 02/05/2024 6 :00 AM RANCH SUPERVISOR POCT GLUCOSE DEVICE Routine 02/05/2024 5 :04 AM RANCH SUPERVISOR POCT GLUCOSE DEVICE Routine 02/05/2024 4 :11 AM RANCH SUPERVISOR ECG 12-LEAD STAT 02/05/2024 3:22 AM RANCH SUPERVISOR EGFR Routine 02/04/2024 9:38 PM RANCH SUPERVISOR DIFFERENTIAL AUTO Routine 02/04/2024 9:3 8 PM RANCH SUPERVISOR HEPATIC FUNCTION PANEL Routine 9:38 PM RANCH SUPERVISOR PHOSPHORUS Routine 02/04/2024 9:38 PM RANCH SUPERVISOR MAGNESIUM Routine 02/04/2024 9:38 PM RANCH SUPERVISOR BASIC METABOLIC PANEL Routine 02/04/2024 9:38 PM RANCH SUPERVISOR CBC WITH AUTO DIFFERENTIAL Routine 02/04/2024 9:38 PM RANCH SUPERVISOR POCT GLUCOSE DEVICE Routine 02/04/2024 9 :04 PM RANCH SUPERVISOR POCT GLUCOSE DEVICE Routine 02/04/2024 5 :12 PM RANCH SUPERVISOR POCT GLUCOSE DEVICE Routine 02/04/2024 11:56 AM RANCH SUPERVISOR HEMOGLOBIN AND HEMATOCRIT Timed 02/04/2024 11:16 AM RANCH SUPERVISOR MRI SACRUM COCCYX WO CONTRAST ED Urgent/IP Urgent 02/04/2024 10:53 AM RANCH SUPERVISOR POCT GLUCOSE DEVICE Routine 02/04/2024 7 :44 AM RANCH SUPERVISOR TRANSFUSE RED BLOOD CELLS Timed 02/04/2024 5:50 AM RANCH SUPERVISOR TYPE AND SCREEN Timed 02/04/2024 1:27 AM RANCH SUPERVISOR PREPARE RBC Timed 02/04/2024 12:43 AM RANCH SUPERVISOR EGFR Routine 02/03/2024 9:45 PM RANCH SUPERVISOR DIFFERENTIAL AUTO Routine 02/03/2024 9:4 5 PM RANCH SUPERVISOR HEPATIC FUNCTION PANEL Routine 9:45 PM RANCH SUPERVISOR PHOSPHORUS Routine 02/03/2024 9:45 PM RANCH SUPERVISOR MAGNESIUM Routine 02/03/2024 9:45 PM RANCH SUPERVISOR BASIC METABOLIC PANEL Routine 02/03/2024 9:45 PM RANCH SUPERVISOR CBC WITH AUTO DIFFERENTIAL Routine 02/03/2024 9:45 PM RANCH SUPERVISOR POCT GLUCOSE DEVICE Routine 02/03/2024 9 :39 PM RANCH SUPERVISOR POCT GLUCOSE DEVICE Routine 02/03/2024 5 :47 PM RANCH SUPERVISOR POCT GLUCOSE DEVICE Routine 02/03/2024 2 :[address] ABDOMEN PELVIS W CONTRAST IP Routine 02/03/2024 10:03 AM RANCH SUPERVISOR POCT GLUCOSE DEVICE Routine 02/03/2024 9 :24 AM RANCH SUPERVISOR EGFR Routine 02/02/2024 10:40 PM RANCH SUPERVISOR DIFFERENTIAL AUTO Routine 02/02/2024 10:40 PM RANCH SUPERVISOR HEPATIC FUNCTION PANEL Routine 10:40 PM RANCH SUPERVISOR PHOSPHORUS Routine 02/02/2024 10:40 PM RANCH SUPERVISOR MAGNESIUM Routine 02/02/2024 10:40 PM RANCH SUPERVISOR BASIC METABOLIC PANEL Routine 02/02/2024 10:40 PM [employer] SUPERVISOR CBC WITH AUTO DIFFERENTIAL Routine 02/02/2024 10:40 PM [employer] SUPER[employer]OR POCT GLUCOSE DEVICE Routine 02/02/2024 8 :25 PM [employer] SUPER[employer]OR HEMOGLOBIN AND HEMATOCRIT Timed 02/02/2024 5:56 PM [employer]AN[employer] SUPER[employer] POCT GLUCOSE DEVICE Routine 02/02/2024 4 :53 PM [employer] SUPER[employer] POCT GLUCOSE DEVICE Routine 02/02/2024 12:56 PM [employer] SUPER[employer]OR TRANSFUSE RED BLOOD CELLS Timed 02/02/2024 11:07 AM [employer]CH SUPERVISOR POCT GLUCOSE DEVICE Routine 02/02/2024 9 :48 AM [employer]CH SUPERVISOR HEPATITIS PANEL, ACUTE Routine 9:00 PM [employer] SUPER[employer]OR LIPID PANEL Routine 01/26/2024 11:33 PM RANCH SUPERVISOR HEMOGLOBIN A1C Routine 12/01/2023 6:48 PM CDT from Last 3 Months or Most Recently Relevant to Health Maintenance Results * POCT glucose (02/13/2024 11:47 AM RANCH SUPERVISOR) Glucose, POC 122 70 - 199 mg/dL Blood 02/13/2024 11:4 7 AM RANCH SUPERVISOR 02/13/2024 11:47 AM RANCH SUPERVISOR us Kassidy Pinzon MD LAB POCT ORDERABLES - DEVIC E Final Result Performing Organization Address [facility] Co de Phone Number [facility] [place] [address] * POCT glucose (02/13/2024 7:56 AM RANCH SUPERVISOR) Glucose, POC 95 70 - 199 mg/dL Blood 02/13/2024 7:56 AM RANCH SUPERVISOR 02/13/2024 7:56 AM RANCH SUPERVISOR us Kassidy Pinzon MD LAB POCT ORDERABLES - DEVIC E Final Result Performing Organization Address City/State/[facility] Co de Phone Number [facility] [place] [address] * eGFR (02/12/2024 11:57 PM RANCH SUPERVISOR) eGFR 79 >=60 mL/min/1. 73 m2 Comment: [...] reviewed 2021. Blood 02/12/2024 11:5 7 PM RANCH SUPERVISOR 02/13/2024 12:29 AM RANCH SUPERVISOR Carin rGanados MD LAB BLOOD ORDERABLES Tete palomino Result [facility] [place] [address] * Differential, auto (02/12/2024 11:57 PM RANCH SUPERVISOR) Pathologist [facility] [place] Neutrophil abs 4.2 1.5 - 6.5 K/cumm Imm gran abs 0.0 0.0 - 0.1 K/cumm [facility] Lymphocyte abs 1.2 0.8 - 3.3 K/cumm [facility] Monocyte abs 0.6 0.2 - 0.8 K/cumm [facility] Eosinophil abs 0.2 0.0 - 0.5 K/cumm [facility] Basophil abs 0.0 0.0 - 0.1 K/cumm [facility] Neutrophil pct 67.3 % [facility] [...] on 2017. Blood 02/12/2024 11:5 7 PM RANCH SUPERVISOR 02/13/2024 12:29 AM RANCH SUPERVISOR us Carin Granados MD LAB BLOOD ORDERABLES Tete palomino Result [facility] [place] [address] * (ABNORMAL) CBC with auto differential (02/12/2024 11:57 PM RANCH SUPERVISOR) WBC 6.3 3.8 - 9.9 K/cumm Hgb [...] [facility] Blood 02/12/2024 11:5 7 PM RANCH SUPERVISOR 02/13/2024 12:29 AM RANCH SUPERVISOR Carin Granados MD LAB BLOOD ORDERABLES Tete l Result Performing Organization Address [facility] de Phone Number [facility] [place] [address] * Phosphorus (02/12/2024 11:57 PM RANCH SUPERVISOR) Phosphorus, pl 2.8 2.3 - 4.5 mg/dL Blood 02/12/2024 11:5 7 PM RANCH SUPERVISOR 02/13/2024 12:29 AM RANCH SUPERVISOR Carin Granados MD LAB BLOOD ORDERABLES Tete l Result Performing Organization Address City/[facility] de Phone Number [facility] [place] [address] * Magnesium (02/12/2024 11:57 PM RANCH SUPERVISOR) Magnesium 2.2 1.4 - 2.5 mg/dL Blood 02/12/2024 11:5 7 PM RANCH SUPERVISOR 02/13/2024 12:29 AM RANCH SUPERVISOR Carin Granados MD LAB BLOOD ORDERABLES Tete l Result Performing Organization Address City/[facility]/ZIP Co de Phone Number [facility] [place] [address] * (ABNORMAL) Hepatic function panel (02/12/2024 11:57 PM RANCH SUPERVISOR) [facility] Bilirubin, total 0.5 0.1 - 1.2 [...] [facility] Blood 02/12/2024 11:5 7 PM RANCH SUPERVISOR 02/13/2024 12:29 AM RANCH SUPERVISOR Carin Granados MD LAB BLOOD ORDERABLES Tete l Result [facility] [place] [address] * Basic metabolic panel (02/12/2024 11:57 PM RANCH SUPERVISOR) [facility] Sodium 140 135 - 145 mmol/L [...] [facility] Blood 02/12/2024 11:5 7 PM RANCH SUPERVISOR 02/13/2024 12:29 AM RANCH SUPERVISOR us Carin Granados MD LAB BLOOD ORDERABLES Tete l Result Performing Organization Address City/[facility] Co de Phone Number [facility] [place] [address] * POCT glucose (02/12/2024 8:27 PM RANCH SUPERVISOR) Glucose, POC 167 70 - 199 mg/dL Blood 02/12/2024 8:27 PM RANCH SUPERVISOR 02/12/2024 8:27 PM RANCH SUPERVISOR us Kassidy Pinzon MD LAB POCT ORDERABLES - DEVIC E Final Result Performing Organization Address City/[facility] Co de Phone Number [facility] [place] [address] * POCT glucose (02/12/2024 5:13 PM RANCH SUPERVISOR) Glucose, POC 167 70 - 199 mg/dL Blood 02/12/2024 5:13 PM RANCH SUPERVISOR 02/12/2024 5:13 PM RANCH SUPERVISOR us Kassidy Pinzon MD LAB POCT ORDERABLES - DEVIC E Final Result Performing Organization Address City/[facility] Co de Phone Number [facility] [place] [address] * POCT glucose (02/12/2024 12:27 PM RANCH SUPERVISOR) Glucose, POC 139 70 - 199 mg/dL Blood 02/12/2024 12:2 7 PM RANCH SUPERVISOR 02/12/2024 12:27 PM RANCH SUPERVISOR Kassidy Pinzon MD LAB POCT ORDERABLES - DEVIC E Final Result Performing Organization Address [facility] Co de Phone Number [facility] [place] [address] * POCT glucose (02/12/2024 9:21 AM RANCH SUPERVISOR) Glucose, POC 95 70 - 199 mg/dL Blood 02/12/2024 9:21 AM RANCH SUPERVISOR 02/12/2024 9:21 AM RANCH SUPERVISOR Kassidy Pinzon MD LAB POCT ORDERABLES - DEVIC E Final Result Performing Organization Address [facility] Co de Phone Number [facility] [place] [address] * POCT glucose (02/12/2024 8:02 AM RANCH SUPERVISOR) [facility] Glucose, POC 91 70 - 199 mg/dL Blood 02/12/2024 8:02 AM RANCH SUPERVISOR 02/12/2024 8:02 AM RANCH SUPERVISOR Kassidy Pinzon MD LAB POCT ORDERABLES - DEVIC E Final Result Performing Organization Address City/[facility] de Phone Number [facility] [place] [address] * eGFR (02/11/2024 11:54 PM RANCH SUPERVISOR) [facility] eGFR 65 >=60 mL/min/1. 73 m2 [...] reviewed 2021. Blood 02/11/2024 11:5 4 PM RANCH SUPERVISOR 02/12/2024 12:43 AM RANCH SUPERVISOR us Carin Granados MD LAB BLOOD ORDERABLES Tete palomino Result [facility] [place] [address] * Differential, auto (02/11/2024 11:54 PM RANCH SUPERVISOR) Pathologist [facility] [place] Neutrophil abs 4.3 1.5 - 6.5 K/cumm [...] on 2017. Blood 02/11/2024 11:5 4 PM RANCH SUPERVISOR 02/12/2024 12:42 AM RANCH SUPERVISOR us Carin Granados MD LAB BLOOD ORDERABLES Tete palomino Result [facility] [place] [address] * (ABNORMAL) CBC with auto differential (02/11/2024 11:54 PM RANCH SUPERVISOR) WBC 6.4 3.8 - 9.9 K/cumm Hgb [...] [facility] Blood 02/11/2024 11:5 4 PM RANCH SUPERVISOR 02/12/2024 12:42 AM RANCH SUPERVISOR Carin Granados MD LAB BLOOD ORDERABLES Tete l Result [facility] [place] [address] * Phosphorus (02/11/2024 11:54 PM RANCH SUPERVISOR) Phosphorus, pl 2.9 2.3 - 4.5 mg/dL Blood 02/11/2024 11:5 4 PM RANCH SUPERVISOR 02/12/2024 12:43 AM RANCH SUPERVISOR Carin Granados MD LAB BLOOD ORDERABLES Tete l Result Performing Organization Address City/[facility] Co de Phone Number [facility] [place] [address] * Magnesium (02/11/2024 11:54 PM RANCH SUPERVISOR) Magnesium 2.5 1.4 - 2.5 mg/dL Blood 02/11/2024 11:5 4 PM RANCH SUPERVISOR 02/12/2024 12:43 AM RANCH SUPERVISOR Carin Granados MD LAB BLOOD ORDERABLES Tete l Result [facility] [place] [address] * (ABNORMAL) Hepatic function panel (02/11/2024 11:54 PM RANCH SUPERVISOR) [facility] Bilirubin, total 0.6 0.1 - 1.2 [...] [facility] Blood 02/11/2024 11:5 4 PM RANCH SUPERVISOR 02/12/2024 12:43 AM RANCH SUPERVISOR us Carin Granados MD LAB BLOOD ORDERABLES Tete l Result [facility] [place] [address] * (ABNORMAL) Basic metabolic panel (02/11/2024 11:54 PM RANCH SUPERVISOR) [facility] Sodium 138 135 - 145 mmol/L [...] [facility] Blood 02/11/2024 11:5 4 PM RANCH SUPERVISOR 02/12/2024 12:43 AM RANCH SUPERVISOR Carin Granados MD LAB BLOOD ORDERABLES Tete l Result Performing Organization Address City/[facility]/ZIP Co de Phone Number [facility] [place] [address] * POCT glucose (02/11/2024 8:20 PM RANCH SUPERVISOR) Glucose, POC 114 70 - 199 mg/dL Blood 02/11/2024 8:20 PM RANCH SUPERVISOR 02/11/2024 8:20 PM RANCH SUPERVISOR Kassidy Pinzon MD LAB POCT ORDERABLES - DEVIC E Final Result Performing Organization Address City/[facility] Co de Phone Number [facility] [place] [address] * POCT glucose (02/11/2024 4:42 PM RANCH SUPERVISOR) Glucose, POC 106 70 - 199 mg/dL Blood 02/11/2024 4:42 PM RANCH SUPERVISOR 02/11/2024 4:42 PM RANCH SUPERVISOR Kassidy Pinzon MD LAB POCT ORDERABLES - DEVIC E Final Result Performing Organization Address City/[facility] Co de Phone Number [facility] [place] [address] * POCT glucose (02/11/2024 7:33 AM RANCH SUPERVISOR) Glucose, POC 99 70 - 199 mg/dL Blood 02/11/2024 7:33 AM RANCH SUPERVISOR 02/11/2024 7:33 AM RANCH SUPERVISOR us Kassidy Pinzon MD LAB POCT ORDERABLES - DEVIC E Final Result Performing Organization Address [facility] Co de Phone Number [facility] [place] [address] * B RYDER IGG (02/11/2024 12:30 AM RANCH SUPERVISOR) Direct Ruiz IgG Negative Blood 02/11/2024 12:3 0 AM RANCH SUPERVISOR 02/11/2024 12:30 AM RANCH SUPERVISOR us Kassidy Pinzon MD LAB BODY FLUIDS AND STOOLS ORDERABLES Final Result Performing Organization Address [facility] de Phone Number [facility] [place] [address] * (ABNORMAL) B RYDER C3 (02/11/2024 12:30 AM RANCH SUPERVISOR) Direct Ruiz C3 Positive(A ) Blood 02/11/2024 12:3 0 AM RANCH SUPERVISOR 02/11/2024 12:30 AM RANCH SUPERVISOR us Kassidy Pinzon MD LAB BLOOD ORDERABLES Final Result Performing Organization Address [facility] Co de Phone Number [facility] [place] [address] * Antibody identification (02/10/2024 10:02 PM RANCH SUPERVISOR) Antibody ID 1 Anti-K Comment:Previous anti-E not reacting Blood 02/10/2024 10:0 2 PM RANCH SUPERVISOR 02/10/2024 10:02 PM RANCH SUPERVISOR Kassidy Pinzon MD LAB BLOOD BANK TEST ORDERAB LES Final Result Performing Organization Address [facility] Co de Phone Number [facility] [place] [address] * eGFR (02/10/2024 8:51 PM RANCH SUPERVISOR) Pathologist [facility] [place] eGFR 70 >=60 mL/min/1. 73 m2 Comment: [...] last reviewed 2021. Blood 02/10/2024 8:51 PM RANCH SUPERVISOR 02/10/2024 9:12 PM RANCH SUPERVISOR us Carin Granados MD LAB BLOOD ORDERABLES Tete palomino Result [facility] [place] [address] * Differential, auto (02/10/2024 8:51 PM RANCH SUPERVISOR) Pathologist [facility] [place] Neutrophil abs 4.2 1.5 - 6.5 K/cumm [...] revised on 2017. Blood 02/10/2024 8:51 PM RANCH SUPERVISOR 02/10/2024 9:12 PM RANCH SUPERVISOR us Carin Granados MD LAB BLOOD ORDERABLES Tete l Result [facility] [place] [address] * (ABNORMAL) CBC with auto differential (02/10/2024 8:51 PM RANCH SUPERVISOR) WBC 6.5 3.8 - 9.9 K/cumm Hgb [...] [facility] Blood 02/10/2024 8:51 PM RANCH SUPERVISOR 02/10/2024 9:12 PM RANCH SUPERVISOR us Carin Granados MD LAB BLOOD ORDERABLES Tete l Result [facility] [place] [address] * Transfusion reaction evaluation with specimen collection (02/10/2024 8:51 PM RANCH SUPERVISOR) Recommended Product Transfuse K negative red blood cells. Recommened Pre Medication None [facility] Final Analysis of Transfusion Reaction Delayed Hemolytic Transfusion Reaction [facility] Blood 02/10/2024 8:51 PM RANCH SUPERVISOR 02/10/2024 9:12 PM RANCH SUPERVISOR us Kassidy Pinzon MD LAB BLOOD BANK TEST ORDERAB LES Final Result Performing Organization Address City/[facility]/ZIP Co de Phone Number [facility] [place] [address] * (ABNORMAL) Type and screen (02/10/2024 8:51 PM RANCH SUPERVISOR) ABO Rh O Positive Ruiz, indirect Positive(A) [facility] Blood 02/10/2024 8:51 PM RANCH SUPERVISOR 02/10/2024 9:12 PM RANCH SUPERVISOR Narrative [facility] - 02/10/2024 10:02 PM RANCH SUPERVISOR Has the patient had Daratumumab or Isatuximab in the past 6 months?->Unknown us Kassidy Pinzon MD LAB BLOOD BANK TEST ORDERAB LES Final Result Performing Organization Address City/[facility] Co de Phone Number [facility] [place] [address] * (ABNORMAL) Direct antiglobulin test (02/10/2024 8:51 PM RANCH SUPERVISOR) Pathologist [facility] [place] Direct Ruiz BS Interpretation Positive( A) Comment:Eluate not performed RYDER positive with anti-C3 only. Blood 02/10/2024 8:51 PM RANCH SUPERVISOR 02/10/2024 9:12 PM RANCH SUPERVISOR us Kassidy Pinzon MD LAB BLOOD BANK TEST ORDERAB LES Final Result Performing Organization Address [facility] Co de Phone Number [facility] [place] [address] * Phosphorus (02/10/2024 8:51 PM RANCH SUPERVISOR) Phosphorus, pl 3.1 2.3 - 4.5 mg/dL Blood 02/10/2024 8:51 PM RANCH SUPERVISOR 02/10/2024 9:12 PM RANCH SUPERVISOR us Carin Granados MD LAB BLOOD ORDERABLES Tete l Result Performing Organization Address [facility] Co de Phone Number [facility] [place], [place] [id number] * Magnesium (02/10/2024 8:51 PM RANCH SUPERVISOR) Magnesium 2.3 1.4 - 2.5 mg/dL Blood 02/10/2024 8:51 PM RANCH SUPERVISOR 02/10/2024 9:12 PM RANCH SUPERVISOR Carin Granados MD LAB BLOOD ORDERABLES Tete l Result Performing Organization Address [facility] de Phone Number [facility] [place] [address] * (ABNORMAL) Hepatic function panel (02/10/2024 8:51 PM RANCH SUPERVISOR) Pathologist [facility] [place] Bilirubin, total 0.8 0.1 - 1.2 mg/dL [...] [facility] Blood 02/10/2024 8:51 PM RANCH SUPERVISOR 02/10/2024 9:12 PM RANCH SUPERVISOR Carin Granados MD LAB BLOOD ORDERABLES Tete l Result Performing Organization Address [facility] de Phone Number [facility] [place] [address] * Basic metabolic panel (02/10/2024 8:51 PM RANCH SUPERVISOR) Sodium 137 135 - 145 mmol/L Potassium, [...] [facility] Blood 02/10/2024 8:51 PM RANCH SUPERVISOR 02/10/2024 9:12 PM RANCH SUPERVISOR Carin Granados MD LAB BLOOD ORDERABLES Tete l Result Performing Organization Address [facility] Co de Phone Number [facility] [place] [address] * POCT glucose (02/10/2024 8:28 PM RANCH SUPERVISOR) Glucose, POC 111 70 - 199 mg/dL Blood 02/10/2024 8:28 PM RANCH SUPERVISOR 02/10/2024 8:28 PM RANCH SUPERVISOR Kassidy Pinzon MD LAB POCT ORDERABLES - DEVIC E Final Result Performing Organization Address City/[facility]/ZIP Co de Phone Number [facility] [place] [address] * POCT glucose (02/10/2024 5:13 PM RANCH SUPERVISOR) Glucose, POC 96 70 - 199 mg/dL Blood 02/10/2024 5:13 PM RANCH SUPERVISOR 02/10/2024 5:13 PM RANCH SUPERVISOR Kassidy Pinzon MD LAB POCT ORDERABLES - DEVIC E Final Result [facility] [place] [address] * IR Central Line Placement > 5 Years (02/10/2024 3:32 PM RANCH SUPERVISOR) Anatomical Region Laterality Modality Body N/A Radio Fluoroscop y 02/10/2024 3:42 PM RANCH SUPERVISOR Impressions 02/10/2024 3:42 PM RANCH SUPERVISOR Successful nontunneled catheter placement (5-St Helenian dual-lumen) in the left internal jugular vein. [...] Abby Mao MD Narrative 02/10/2024 3:42 PM RANCH SUPERVISOR EXAMINATION: NONTUNNELED CENTRAL VENOUS CATHETER PLACEMENT (STD) HISTORY: History sacral wound with plan for long-term intravenous antibiotics. ATTENDING PRESENCE: Abby Mao MD, PhD, the attending radiologist was present from the beginning to the end of the procedure. SEDATION: Local anesthetic only TECHNIQUE: The risks, benefits and alternatives were discussed and informed consent was obtained. Prior to beginning the procedure, Paterson Protocol was used to confirm the patient's [...] was assessed. After dilating the tract, a 5-St Helenian dual lumen aric trimmed to the appropriate [...] was obtained. Prior to beginning the procedure, Paterson Protocol was used to confirm the patient's [...] was assessed. After dilating the tract, a 5-St Helenian dual lumen aric trimmed to the appropriate [...] are seen. IMPRESSION: Successful nontunneled catheter placement (5-St Helenian dual-lumen) in the left internal jugular vein. [...] ult * POCT glucose (02/10/2024 12:31 PM RANCH SUPERVISOR) Glucose, POC 119 70 - 199 mg/dL Blood 02/10/2024 12:3 1 PM RANCH SUPERVISOR 02/10/2024 12:31 PM RANCH SUPERVISOR Kassidy Pinzon MD LAB POCT ORDERABLES - DEVIC E Final Result Performing Organization Address [facility] de Phone Number [facility] [place] [address] * POCT glucose (02/10/2024 8:15 AM RANCH SUPERVISOR) Glucose, POC 96 70 - 199 mg/dL Blood 02/10/2024 8:15 AM RANCH SUPERVISOR 02/10/2024 8:15 AM RANCH SUPERVISOR Kassidy Pinzon MD LAB POCT ORDERABLES - DEVIC E Final Result Performing Organization Address [facility] de Phone Number [facility] [place] [address] * eGFR (02/09/2024 9:52 PM RANCH SUPERVISOR) eGFR 71 >=60 mL/min/1. 73 m2 Comment: [...] last reviewed 2021. Blood 02/09/2024 9:52 PM RANCH SUPERVISOR 02/09/2024 10:45 PM RANCH SUPERVISOR us Carin Granados MD LAB BLOOD ORDERABLES Tete palomino Result [facility] [place] [address] * Differential, auto (02/09/2024 9:52 PM RANCH SUPERVISOR) Pathologist [facility] [place] Neutrophil abs 3.9 1.5 - 6.5 K/cumm Imm gran abs 0.0 0.0 - 0.1 K/cumm [facility] Lymphocyte abs 1.1 0.8 - 3.3 K/cumm [facility] Monocyte abs 0.7 0.2 - 0.8 K/cumm [facility] Eosinophil abs 0.2 0.0 - 0.5 K/cumm [facility] Basophil abs 0.0 0.0 - 0.1 K/cumm [facility] Neutrophil pct 65.2 % [facility] [...] revised on 2017. Blood 02/09/2024 9:52 PM RANCH SUPERVISOR 02/09/2024 10:46 PM RANCH SUPERVISOR Carin Granados MD LAB BLOOD ORDERABLES Tete palomino Result [facility] [place] [address] * (ABNORMAL) CBC with auto differential (02/09/2024 9:52 PM RANCH SUPERVISOR) WBC 5.9 3.8 - 9.9 K/cumm Hgb [...] [facility] Blood 02/09/2024 9:52 PM RANCH SUPERVISOR 02/09/2024 10:46 PM RANCH SUPERVISOR Carin Granados MD LAB BLOOD ORDERABLES Tete l Result Performing Organization Address City/[facility] Co de Phone Number [facility] [place] [address] * Phosphorus (02/09/2024 9:52 PM RANCH SUPERVISOR) Pathologist [facility] [place] Phosphorus, pl 3.1 2.3 - 4.5 mg/dL Blood 02/09/2024 9:52 PM RANCH SUPERVISOR 02/09/2024 10:45 PM RANCH SUPERVISOR Carin Granados MD LAB BLOOD ORDERABLES Tete l Result Performing Organization Address [facility] de Phone Number [facility] [place] [address] * Magnesium (02/09/2024 9:52 PM RANCH SUPERVISOR) [facility] Magnesium 2.2 1.4 - 2.5 mg/dL Blood 02/09/2024 9:52 PM RANCH SUPERVISOR 02/09/2024 10:45 PM RANCH SUPERVISOR Carin Granados MD LAB BLOOD ORDERABLES Tete l Result Performing Organization Address [facility] de Phone Number [facility] [place] [address] * Vancomycin level random (02/09/2024 9:52 PM RANCH SUPERVISOR) [facility] Vancomycin random 11.5 mcg/mL Comment: Interpretive Data No reference ranges have been established for random drug levels. Current Interpretive Data was last revised on 2020. Blood 02/09/2024 9:52 PM RANCH SUPERVISOR 02/09/2024 10:45 PM RANCH SUPERVISOR us Kassidy Pinzon MD LAB BLOOD ORDERABLES Final Result Performing Organization Address [facility] de Phone Number [facility] [place] [address] * (ABNORMAL) Hepatic function panel (02/09/2024 9:52 PM RANCH SUPERVISOR) Bilirubin, total 0.9 0.1 - 1.2 mg/dL [...] [facility] Blood 02/09/2024 9:52 PM RANCH SUPERVISOR 02/09/2024 10:45 PM RANCH SUPERVISOR us Carin Granados MD LAB BLOOD ORDERABLES Tete l Result Performing Organization Address [facility] de Phone Number [facility] [place] [address] * Basic metabolic panel (02/09/2024 9:52 PM RANCH SUPERVISOR) Sodium 138 135 - 145 mmol/L Potassium, [...] [facility] Blood 02/09/2024 9:52 PM RANCH SUPERVISOR 02/09/2024 10:45 PM RANCH SUPERVISOR Result [facility] Carin Granados MD LAB BLOOD ORDERABLES Tete l Result Performing Organization Address City/[facility]/ZIP Co de Phone Number [facility] [place] [address] * POCT glucose (02/09/2024 8:32 PM RANCH SUPERVISOR) Glucose, POC 135 70 - 199 mg/dL Blood 02/09/2024 8:32 PM RANCH SUPERVISOR 02/09/2024 8:32 PM RANCH SUPERVISOR Result [facility] Kassidy Pinzon MD LAB POCT ORDERABLES - DEVIC E Final Result [facility] [place] [address] * POCT glucose (02/09/2024 5:55 PM RANCH SUPERVISOR) Glucose, POC 142 70 - 199 mg/dL Blood 02/09/2024 5:55 PM RANCH SUPERVISOR 02/09/2024 5:55 PM RANCH SUPERVISOR Kassidy Pinzon MD LAB POCT ORDERABLES - DEVIC E Final Result Performing Organization Address [facility]/ZIP Co de Phone Number [facility] [place] [address] * (ABNORMAL) Urinalysis reflex to microscopic and culture Urine (02/09/2024 5:09 PM RANCH SUPERVISOR) Color, ur Straw Yellow Clarity, ur Cloudy(A) [...] tendency for uric acid stone formation. Source: [facility] Current Interpretive Data was last revised on 2017 Protein, ur ql Trace Negative [facility] Glucose, ur ql Negative Negative [facility] Ketones, ur Negative Negative [facility] Bilirubin, ur Negative Negative [facility] Blood, ur 1+(A) Negative [facility] Urobilinogen, ur 2.0(A) <2.0 mg/dL [facility] Nitrite, ur Negative Negative [facility] Leukocyte esterase, ur 3+(A) Negative [facility] UA reflex comment Reflex to microscopic UA will be performed. [facility] Urine 02/09/2024 5:09 PM RANCH SUPERVISOR 02/09/2024 5:48 PM RANCH SUPERVISOR Kassidy Pinzon MD LAB MICROBIOLOGY - GENERAL ORDERABLES Final Result Performing Organization Address [facility]/ZIP Co de Phone Number VAHID ZUÑIGA [facility] [place] [address] * (ABNORMAL) Urinalysis, microscopic only (02/09/2024 5:09 PM RANCH SUPERVISOR) WBC, ur >50(A) 0 - 5 /HPF RBC, ur 6-10(A) 0 - 2 /HPF [facility] Epithelial cells, squamous, ur 1-5 0 - 5 /HPF [facility] Bacteria, ur Trace(A) [facility] Culture Reflex Comment Reflex to urine culture will be performed. [facility] Urine 02/09/2024 5:09 PM RANCH SUPERVISOR 02/09/2024 5:48 PM RANCH SUPERVISOR us Kassidy Pinzon MD LAB URINE ORDERABLES Final Result Performing Organization Address [facility] Co de Phone Number [facility] [place] [address] * Urine culture Urine (02/09/2024 5:09 PM RANCH SUPERVISOR) Report Final Report: No growth Urine 02/09/2024 5:09 PM RANCH SUPERVISOR 02/09/2024 8:14 PM RANCH SUPERVISOR Narrative [facility] - 02/10/2024 9:34 PM RANCH SUPERVISOR Urine culture reflexed based upon urinalysis results. Testing performed by [facility] Micro[facility] Laboratory ([phone]) us Kassidy Pinzon MD LAB MICROBIOLOGY - GENERAL ORDERABLES Final Result Performing Organization Address [facility] de Phone Number [facility] [place] [address] * XR Abdomen Ap 1 Vw (02/09/2024 4:09 PM RANCH SUPERVISOR) Anatomical Region Laterality Modality Body, Abdomen N/A Computed Radiogr aphy 02/09/2024 4:36 PM RANCH SUPERVISOR Impressions 02/09/2024 4:54 PM RANCH SUPERVISOR A single view of the abdomen is [...] Raheem Marion M.D. Narrative 02/09/2024 4:54 PM RANCH SUPERVISOR EXAMINATION: Abdomen, one view. HISTORY: Abdominal pain. [...] ult * POCT glucose (02/09/2024 12:51 PM RANCH SUPERVISOR) Glucose, POC 121 70 - 199 mg/dL Blood 02/09/2024 12:5 1 PM RANCH SUPERVISOR 02/09/2024 12:51 PM RANCH SUPERVISOR Kassidy Pinzon MD LAB POCT ORDERABLES - DEVIC E Final Result Performing Organization Address [facility] de Phone Number [facility] [place] [address] * POCT glucose (02/09/2024 7:40 AM RANCH SUPERVISOR) Glucose, POC 96 70 - 199 mg/dL Blood 02/09/2024 7:40 AM RANCH SUPERVISOR 02/09/2024 7:40 AM RANCH SUPERVISOR Kassidy Pinzon MD LAB POCT ORDERABLES - DEVIC E Final Result Performing Organization Address [facility]/ZIP Co de Phone Number [facility] [place] [address] * eGFR (02/09/2024 12:07 AM RANCH SUPERVISOR) eGFR 77 >=60 mL/min/1. 73 m2 Comment: [...] reviewed 2021. Blood 02/09/2024 12:0 7 AM RANCH SUPERVISOR 02/09/2024 12:57 AM RANCH SUPERVISOR us Carin Granados MD LAB BLOOD ORDERABLES Tete l Result [facility] [place] [address] * Creatinine (02/09/2024 12:07 AM RANCH SUPERVISOR) Creatinine 0.97 0.60 - 1.10 mg/dL Blood 02/09/2024 12:0 7 AM RANCH SUPERVISOR 02/09/2024 12:57 AM RANCH SUPERVISOR Narrative [facility] - 02/09/2024 1:23 AM RANCH SUPERVISOR While on enoxaparin Carin Granados MD LAB BLOOD ORDERABLES Tete l Result Performing Organization Address City/State/[facility] Co de Phone Number [facility]AHID [facility] [place] [address] * eGFR (02/08/2024 9:50 PM RANCH SUPERVISOR) eGFR 76 >=60 mL/min/1. 73 m2 Comment: [...] last reviewed 2021. Blood 02/08/2024 9:50 PM RANCH SUPERVISOR 02/08/2024 11:07 PM RANCH SUPERVISOR us Carin Granados MD LAB BLOOD ORDERABLES Tete l Result Performing Organization Address [facility] Co de Phone Number [facility] Department [place] [address] * Differential, auto (02/08/2024 9:50 PM RANCH SUPERVISOR) Neutrophil abs 4.0 1.5 - 6.5 K/cumm [...] revised on 2017. Blood 02/08/2024 9:50 PM RANCH SUPERVISOR 02/08/2024 10:57 PM RANCH SUPERVISOR us Carin Granados MD LAB BLOOD ORDERABLES Tete l Result [facility] [place] [address] * (ABNORMAL) CBC with auto differential (02/08/2024 9:50 PM RANCH SUPERVISOR) WBC 5.9 3.8 - 9.9 K/cumm Hgb [...] [facility] Blood 02/08/2024 9:50 PM RANCH SUPERVISOR 02/08/2024 10:57 PM RANCH SUPERVISOR us Carin Granados MD LAB BLOOD ORDERABLES Tete palomino Result [facility] [place] [address] * (ABNORMAL) Protime-INR (02/08/2024 9:50 PM RANCH SUPERVISOR) PT 16.5(H) 9.7 - 13.0 sec INR 1.51(H) 0.90 - 1.20 [facility] Comment: Interpretive data Oral anticoagulant therapeutic ranges: Venous thromboembolism prophylaxis or treatment: 2.0-3.0 CARDIOLOGY Standard range: 2.0-3.0 High-intensity range: 2.5-3.5 Refer to indication-specific guidelines for appropriate target ranges for prosthetic heart valve replacement. Current interpretive data was last revised on 2019. Blood 02/08/2024 9:50 PM RANCH SUPERVISOR 02/08/2024 10:56 PM RANCH SUPERVISOR us Kassidy Pinzon MD LAB BLOOD ORDERABLES Final Result Performing Organization Address [facility] Co de Phone Number [facility] [place] [address] * Phosphorus (02/08/2024 9:50 PM RANCH SUPERVISOR) Pathologist [facility] [place] Phosphorus, pl 3.6 2.3 - 4.5 mg/dL Blood 02/08/2024 9:5 0 PM RANCH SUPERVISOR 02/08/2024 10:52 PM RANCH SUPERVISOR Carin Granados MD LAB BLOOD ORDERABLES Tete l Result Performing Organization Address [facility] de Phone Number [facility] [place] [address] * Magnesium (02/08/2024 9:50 PM RANCH SUPERVISOR) [facility] Magnesium 2.0 1.4 - 2.5 mg/dL Blood 02/08/2024 9:50 PM RANCH SUPERVISOR 02/08/2024 10:52 PM RANCH SUPERVISOR Carin Granados MD LAB BLOOD ORDERABLES Tete l Result Performing Organization Address [facility] de Phone Number [facility] [place] [address] * Vancomycin level random (02/08/2024 9:50 PM RANCH SUPERVISOR) Pathologist [facility] [place] Vancomycin random 20.0 mcg/mL Comment: Interpretive Data No reference ranges have been established for random drug levels. Current Interpretive Data was last revised on 2020. Blood 02/08/2024 9:50 PM RANCH SUPERVISOR 02/08/2024 10:52 PM RANCH SUPERVISOR Kassidy Pinzon MD LAB BLOOD ORDERABLES Final Result Performing Organization Address [facility] Co de Phone Number [facility] [place] [address] * (ABNORMAL) Hepatic function panel (02/08/2024 9:50 PM RANCH SUPERVISOR) [facility] Bilirubin, total 1.2 0.1 - 1.2 [...] [facility] Blood 02/08/2024 9:50 PM RANCH SUPERVISOR 02/08/2024 10:52 PM RANCH SUPERVISOR Carin Granados MD LAB BLOOD ORDERABLES Tete l Result [facility] [place] [address] * Basic metabolic panel (02/08/2024 9:50 PM RANCH SUPERVISOR) [facility] Sodium 139 135 - 145 mmol/L [...] [facility] Blood 02/08/2024 9:50 PM RANCH SUPERVISOR 02/08/2024 10:52 PM RANCH SUPERVISOR us Carin Granados MD LAB BLOOD ORDERABLES Tete l Result [facility] [place] [address] * POCT glucose (02/08/2024 8:31 PM RANCH SUPERVISOR) Glucose, POC 98 70 - 199 mg/dL Blood 02/08/2024 8:31 PM RANCH SUPERVISOR 02/08/2024 8:31 PM RANCH SUPERVISOR us Kassidy Pinzon MD LAB POCT ORDERABLES - DEVIC E Final Result Performing Organization Address City/[facility] Co de Phone Number [facility] [place] [address] * POCT glucose (02/08/2024 5:56 PM RANCH SUPERVISOR) Glucose, POC 123 70 - 199 mg/dL Blood 02/08/2024 5:56 PM RANCH SUPERVISOR 02/08/2024 5:56 PM RANCH SUPERVISOR Kassidy Pinzon MD LAB POCT ORDERABLES - DEVIC E Final Result Performing Organization Address City/[facility] Co de Phone Number [facility] [place] [address] * (ABNORMAL) Vancomycin level trough Prior to 3rd dose of 750mg Q12 (02/08/2024 1:55 PM RANCH SUPERVISOR) [facility] Vancomycin trough 24.7(H) 10.0 - 20.0 mcg/mL Comment:Reviewed Blood 02/08/2024 1:55 PM RANCH SUPERVISOR 02/08/2024 2:35 PM RANCH SUPERVISOR Narrative [facility] - 02/08/2024 3:10 PM RANCH SUPERVISOR Prior to 3rd dose of 750mg Q12 Kassidy Pinzon MD LAB BLOOD ORDERABLES Final Result Performing Organization Address City/[facility] Co de Phone Number [facility] [place] [address] * POCT glucose (02/08/2024 11:40 AM RANCH SUPERVISOR) [facility] Glucose, POC 98 70 - 199 mg/dL Blood 02/08/2024 11:4 0 AM RANCH SUPERVISOR 02/08/2024 11:40 AM RANCH SUPERVISOR Kassidy Pinzon MD LAB POCT ORDERABLES - DEVIC E Final Result Performing Organization Address [facility] de Phone Number [facility] [place] [address] * POCT glucose (02/08/2024 8:20 AM RANCH SUPERVISOR) [facility] Glucose, POC 91 70 - 199 mg/dL Blood 02/08/2024 8:20 AM RANCH SUPERVISOR 02/08/2024 8:20 AM RANCH SUPERVISOR Kassidy Pinzon MD LAB POCT ORDERABLES - DEVIC E Final Result Performing Organization Address [facility] de Phone Number [facility] [place] [address] * eGFR (02/07/2024 9:30 PM RANCH SUPERVISOR) [facility] eGFR 66 >=60 mL/min/1. 73 m2 [...] last reviewed 2021. Blood 02/07/2024 9:30 PM RANCH SUPERVISOR 02/07/2024 10:34 PM RANCH SUPERVISOR Carin Granados MD LAB BLOOD ORDERABLES Tete palomino Result [facility] [place] [address] * Differential, auto (02/07/2024 9:30 PM RANCH SUPERVISOR) Pathologist [facility] [place] Neutrophil abs 4.1 1.5 - 6.5 K/cumm Imm gran abs 0.0 0.0 - 0.1 K/cumm [facility] Lymphocyte abs 0.8 0.8 - 3.3 K/cumm [facility] Monocyte abs 0.6 0.2 - 0.8 K/cumm [facility] Eosinophil abs 0.3 0.0 - 0.5 K/cumm [facility] Basophil abs 0.0 0.0 - 0.1 K/cumm [facility] Neutrophil pct 71.0 % [facility] [...] revised on 2017. Blood 02/07/2024 9:30 PM RANCH SUPERVISOR 02/07/2024 10:29 PM RANCH SUPERVISOR us Carin Granados MD LAB BLOOD ORDERABLES Tete palomino Result [facility] [place] [address] * (ABNORMAL) CBC with auto differential (02/07/2024 9:30 PM RANCH SUPERVISOR) WBC 5.8 3.8 - 9.9 K/cumm Hgb [...] [facility] Blood 02/07/2024 9:30 PM RANCH SUPERVISOR 02/07/2024 10:29 PM RANCH SUPERVISOR Carin Granados MD LAB BLOOD ORDERABLES Tete l Result Performing Organization Address City/[facility] Co de Phone Number [facility] [place] [address] * Phosphorus (02/07/2024 9:30 PM RANCH SUPERVISOR) Phosphorus, pl 4.4 2.3 - 4.5 mg/dL Blood 02/07/2024 9:30 PM RANCH SUPERVISOR 02/07/2024 10:34 PM RANCH SUPERVISOR Cairn Granados MD LAB BLOOD ORDERABLES Tete l Result Performing Organization Address City/[facility] Co de Phone Number [facility] [place] [address] * Magnesium (02/07/2024 9:30 PM RANCH SUPERVISOR) Magnesium 2.1 1.4 - 2.5 mg/dL Blood 02/07/2024 9:30 PM RANCH SUPERVISOR 02/07/2024 10:34 PM RANCH SUPERVISOR Carin Granados MD LAB BLOOD ORDERABLES Tete l Result Performing Organization Address City/[facility] Co de Phone Number [facility] [place] [address] * (ABNORMAL) Hepatic function panel (02/07/2024 9:30 PM RANCH SUPERVISOR) [facility] Bilirubin, total 1.1 0.1 - 1.2 [...] [facility] Blood 02/07/2024 9:30 PM RANCH SUPERVISOR 02/07/2024 10:34 PM RANCH SUPERVISOR Carin Granados MD LAB BLOOD ORDERABLES Tete l Result [facility] [place] [address] * Basic metabolic panel (02/07/2024 9:30 PM RANCH SUPERVISOR) [facility] Sodium 139 135 - 145 mmol/L [...] [facility] Blood 02/07/2024 9:30 PM RANCH SUPERVISOR 02/07/2024 10:34 PM RANCH SUPERVISOR us Carin Granados MD LAB BLOOD ORDERABLES Tete l Result [facility] [place] [address] * POCT glucose (02/07/2024 8:20 PM RANCH SUPERVISOR) Glucose, POC 127 70 - 199 mg/dL Blood 02/07/2024 8:20 PM RANCH SUPERVISOR 02/07/2024 8:20 PM RANCH SUPERVISOR us Kassidy Pinzon MD LAB POCT ORDERABLES - DEVIC E Final Result Performing Organization Address City/[facility] Co de Phone Number [facility] [place] [address] * POCT glucose (02/07/2024 4:41 PM RANCH SUPERVISOR) Glucose, POC 113 70 - 199 mg/dL Blood 02/07/2024 4:41 PM RANCH SUPERVISOR 02/07/2024 4:41 PM RANCH SUPERVISOR Kassidy Pinzon MD LAB POCT ORDERABLES - DEVIC E Final Result Performing Organization Address City/[facility] Co de Phone Number [facility] [place] [address] * POCT glucose (02/07/2024 12:22 PM RANCH SUPERVISOR) Glucose, POC 77 70 - 199 mg/dL Blood 02/07/2024 12:2 2 PM RANCH SUPERVISOR 02/07/2024 12:22 PM RANCH SUPERVISOR Kassidy Pinzon MD LAB POCT ORDERABLES - DEVIC E Final Result Performing Organization Address [facility] Co de Phone Number [facility] [place] [address] * Tissue aerobic and anaerobic culture and gram stain Bone Sacral (02/07/2024 11:30 AM RANCH SUPERVISOR) Direct Specimen Exam Stain: No polymorphonuclear leukocytes seen. No organisms seen. Report Final Report: No growth [facility] Bone (Sacral) 02/07/2024 11: 30 AM RANCH SUPERVISOR 02/07/2024 3:04 PM RANCH SUPERVISOR Narrative [facility] - 02/10/2024 12:53 PM RANCH SUPERVISOR This is NOT Aspirate but instead a Coccyx Bone Biopsy Testing performed by [facility]biology Laboratory ([phone]) Specimens submitted from normally sterile body sites [...] GENERAL ORDERABLES Final Result Performing Organization Address [facility] Co de Phone Number [facility] [place] [address] * Mycology (fungal) culture and stain Aspirate Sacral (02/07/2024 11:30 AM RANCH SUPERVISOR) Direct Specimen Exam Stain: No Fungal elements seen. Report Final Report: No growth of fungus [facility] Aspirate (Sacral) 02/07/2024 11:30 AM RANCH SUPERVISOR 02/07/2024 3:09 PM RANCH SUPERVISOR Narrative [facility] - 03/06/2024 8:33 AM RANCH SUPERVISOR Coccyx Aspirate Testing performed by [facility] Laboratory ([phone]). us Carin Granados MD LAB MICROBIOLOGY - GENERA L ORDERABLES Final Result Performing Organization Address City/[facility] Co de Phone Number [facility] [place] [address] * Mycology (fungal) culture Bone Sacral (02/07/2024 11:30 AM RANCH SUPERVISOR) Report Final Report: No growth of fungus Bone (Sacral) 02/07/2024 11: 30 AM RANCH SUPERVISOR 02/07/2024 3:45 PM RANCH SUPERVISOR Narrative [facility] - 03/06/2024 8:33 AM RANCH SUPERVISOR Coccyx Bone Biopsy Testing performed by [facility] ([phone]). us Kassidy Pinzon MD LAB MICROBIOLOGY - GENERAL ORDERABLES Final Result Performing Organization Address [facility] Co de Phone Number [facility] [place] [address] * Mycobacteriology (AFB) culture and acid-fast stain Bone Sacral (02/07/2024 11:30 AM RANCH SUPERVISOR) Direct Specimen Exam Stain: No Acid-fast bacilli seen Report Final Report: No growth of acid-fast bacilli [facility] Bone (Sacral) 02/07/2024 11: 30 AM RANCH SUPERVISOR 02/07/2024 3:07 PM RANCH SUPERVISOR Narrative [facility] - 04/09/2024 9:27 AM RANCH SUPERVISOR Coccyx Bone Biopsy Testing performed by [facility] ([phone]). us Carin Granados MD LAB MICROBIOLOGY - GENERA L ORDERABLES Final Result [facility] [place] [address] * Mycobacteriology (AFB) culture and acid-fast stain Aspirate Sacral (02/07/2024 11:30 AM RANCH SUPERVISOR) Direct Specimen Exam Stain: No Acid-fast bacilli seen Report Final Report: No growth of acid-fast bacilli [facility] Aspirate (Sacral) 02/07/2024 11:30 AM RANCH SUPERVISOR 02/07/2024 3:09 PM RANCH SUPERVISOR Narrative [facility] - 04/09/2024 9:27 AM RANCH SUPERVISOR Coccyx Aspirate Testing performed by [facility] ([phone]). us Carin Granados MD LAB MICROBIOLOGY - GENERA L ORDERABLES Final Result [facility] [place] [address] * Aerobic and anaerobic culture and gram stain Aspirate Sacral (02/07/2024 11:30 AM RANCH SUPERVISOR) Direct Specimen Exam Stain: Rare polymorphonuclear leukocytes seen. No organisms seen. Report Final Report: No growth [facility] Aspirate (Sacral) 02/07/2024 11:30 AM RANCH SUPERVISOR 02/07/2024 3:09 PM RANCH SUPERVISOR Narrative [facility] - 02/10/2024 12:52 PM RANCH SUPERVISOR Coccyx Aspirate Testing performed by [facility] ([phone]) Specimens submitted from normally sterile body sites [...] L ORDERABLES Final Result [facility] [place] [address] * IR Biopsy Deep Bone (02/07/2024 11:29 AM RANCH SUPERVISOR) Anatomical Region Laterality Modality Body N/A Computed Tomogra phy 02/07/2024 1:23 PM RANCH SUPERVISOR Impressions 02/07/2024 5:11 PM RANCH SUPERVISOR Coccygeal bone biopsy under CT guidance. The core specimens were sent to surgical pathology and microbiology. Aspirate was sent to microbiology. Dictated by: Craig Sheppard M.D. The radiology attending physician has personally reviewed this study, and had reviewed and/or edited this written report and agrees with it. 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 Jorge Carolina MD, PHD, the attending radiologist, was present from the beginning to the end of the procedure. Dr. Ness (professor of radiology) was present and participated in the procedure. [...] was obtained. Prior to beginning the procedure, [place] Protocol was performed to confirm the patient's [...] the end of the procedure. Dr. Ness (professor of radiology) was present and participated in the procedure. [...] was obtained. Prior to beginning the procedure, [place] Protocol was performed to confirm the patient's [...] subcutaneous and deep anesthesia. 10/12 gauge [employer] coaxial biopsy device was inserted into the [...] esult * Surgical pathology (02/07/2024 11:15 AM RANCH SUPERVISOR) Bone biopsy, metabolic disease 02/07/2024 11:15 AM RANCH SUPERVISOR 02/07/2024 2:18 PM RANCH SUPERVISOR Narrative 02/09/2024 10:35 AM RANCH SUPERVISOR EPIC results best viewed via link to PDF [facility] [place] [address] Note to Patients: This report may contain [...] Gender: F : 1985 (Age: 38) Address: [address] [place] [id number] Hospital #: [id number] Taken:02/07/2024 Received:02/07/2024 Reported: 02/09/2024 Patient Type: [facility] Inpatient Service: Medical Location: [facility] Physician(s): Jorge Carolina M.D. Barbara Oliva [...] Surgical Pathology and Flow Cytometry Departments at [facility] as part of an ongoing manager quality systems program and in compliance with federally mandated [...] Surgical Pathology and Flow Cytometry Departments of [facility]. It has not been cleared or approved by the U. S. Food and Drug Administration. IMAGES AND SCANNED DOCUMENTS, IF INCLUDED, ONLY VIEWABLE IN PDF VERSION OF REPORT us Jorge Carolina MD PhD LAB PATHOLOGY ORDER [place] Final Result * POCT glucose (02/07/2024 8:36 AM RANCH SUPERVISOR) Glucose, POC 79 70 - 199 mg/dL Blood 02/07/2024 8:36 AM RANCH SUPERVISOR 02/07/2024 8:36 AM RANCH SUPERVISOR Kassidy Pinzon MD LAB POCT ORDERABLES - DEVIC E Final Result Performing Organization Address [facility] Co de Phone Number [facility] [place] [address] * POCT glucose (02/07/2024 7:46 AM RANCH SUPERVISOR) Glucose, POC 83 70 - 199 mg/dL Blood 02/07/2024 7:46 AM RANCH SUPERVISOR 02/07/2024 7:46 AM RANCH SUPERVISOR Kassidy Pinzon MD LAB POCT ORDERABLES - DEVIC E Final Result Performing Organization Address [facility] Phone Number [facility] [place] [address] * (ABNORMAL) Vancomycin level trough Draw trough 30 minutes prior to 4th dose. (02/07/2024 2:37 AM RANCH SUPERVISOR) Vancomycin trough 24.3(H) 10.0 - 20.0 mcg/mL Blood 02/07/2024 2:37 AM RANCH SUPERVISOR 02/07/2024 3:13 AM RANCH SUPERVISOR Narrative [facility] - 02/07/2024 3:44 AM RANCH SUPERVISOR Draw trough 30 minutes prior to 4th dose. us Carin Granados MD LAB BLOOD ORDERABLES Tete l Result Performing Organization Address City/[facility] Co de Phone Number [facility] [place] [address] * eGFR (02/06/2024 9:36 PM RANCH SUPERVISOR) Pathologist [facility] [place] eGFR 71 >=60 mL/min/1. 73 m2 Comment: [...] last reviewed 2021. Blood 02/06/2024 9:36 PM RANCH SUPERVISOR 02/06/2024 11:02 PM RANCH SUPERVISOR Carin Granados MD LAB BLOOD ORDERABLES Tete l Result Performing Organization Address [facility] Co de Phone Number [facility] [place] [address] * Differential, auto (02/06/2024 9:36 PM RANCH SUPERVISOR) Pathologist [facility] [place] Neutrophil abs 3.8 1.5 - 6.5 K/cumm [...] revised on 2017. Blood 02/06/2024 9:36 PM RANCH SUPERVISOR 02/06/2024 11:03 PM RANCH SUPERVISOR us Carin Granados MD LAB BLOOD ORDERABLES Tete palomino Result [facility] [place] [address] * (ABNORMAL) CBC with auto differential (02/06/2024 9:36 PM RANCH SUPERVISOR) [facility] WBC 5.6 3.8 - 9.9 K/cumm [...] [facility] Blood 02/06/2024 9:36 PM RANCH SUPERVISOR 02/06/2024 11:03 PM RANCH SUPERVISOR us Carin Granados MD LAB BLOOD ORDERABLES Tete l Result Performing Organization Address City/[facility] Co de Phone Number [facility] Department of [facility] Referrals [place] [address] * Phosphorus (02/06/2024 9:36 PM RANCH SUPERVISOR) [facility] Phosphorus, pl 4.5 2.3 - 4.5 mg/dL Blood 02/06/2024 9:36 PM RANCH SUPERVISOR 02/06/2024 11:02 PM RANCH SUPERVISOR Carin Granados MD LAB BLOOD ORDERABLES Tete l Result [facility] [place] [address] * Magnesium (02/06/2024 9:36 PM RANCH SUPERVISOR) [facility] Magnesium 2.1 1.4 - 2.5 mg/dL Blood 02/06/2024 9:36 PM RANCH SUPERVISOR 02/06/2024 11:02 PM RANCH SUPERVISOR Carin Granados MD LAB BLOOD ORDERABLES Tete l Result Performing Organization Address [facility] de Phone Number [facility] [place] [address] * (ABNORMAL) Hepatic function panel (02/06/2024 9:36 PM RANCH SUPERVISOR) [facility] Bilirubin, total 1.0 0.1 - 1.2 [...] [facility] Blood 02/06/2024 9:36 PM RANCH SUPERVISOR 02/06/2024 11:02 PM RANCH SUPERVISOR Result [facility] Carin Granados MD LAB BLOOD ORDERABLES Tete l Result Performing Organization Address [facility] de Phone Number [facility] [place] [address] * Basic metabolic panel (02/06/2024 9:36 PM RANCH SUPERVISOR) [facility] Sodium 135 135 - 145 mmol/L [...] [facility] Blood 02/06/2024 9:36 PM RANCH SUPERVISOR 02/06/2024 11:02 PM RANCH SUPERVISOR Carin Granados MD LAB BLOOD ORDERABLES Tete l Result Performing Organization Address City/[facility]/ZIP Co de Phone Number [facility] [place] [address] * POCT glucose (02/06/2024 9:32 PM RANCH SUPERVISOR) Glucose, POC 111 70 - 199 mg/dL Blood 02/06/2024 9:32 PM RANCH SUPERVISOR 02/06/2024 9:32 PM RANCH SUPERVISOR Carin Granados MD LAB POCT ORDERABLES - DEV ICE Final Result [facility] [place] [address] * POCT glucose (02/06/2024 5:33 PM RANCH SUPERVISOR) Glucose, POC 90 70 - 199 mg/dL Blood 02/06/2024 5:33 PM RANCH SUPERVISOR 02/06/2024 5:33 PM RANCH SUPERVISOR Carin Granados MD LAB POCT ORDERABLES - DEV ICE Final Result Performing Organization Address [facility] Co de Phone Number [facility] [place] [address] * POCT glucose (02/06/2024 11:52 AM RANCH SUPERVISOR) Glucose, POC 104 70 - 199 mg/dL Blood 02/06/2024 11:5 2 AM RANCH SUPERVISOR 02/06/2024 11:52 AM RANCH SUPERVISOR Carin Granados MD LAB POCT ORDERABLES - DEV ICE Final Result Performing Organization Address [facility] de Phone Number [facility] [place] [address] * POCT glucose (02/06/2024 8:16 AM RANCH SUPERVISOR) Glucose, POC 89 70 - 199 mg/dL Blood 02/06/2024 8:16 AM RANCH SUPERVISOR 02/06/2024 8:16 AM RANCH SUPERVISOR Carin Granados MD LAB POCT ORDERABLES - DEV ICE Final Result Performing Organization Address [facility] de Phone Number [facility] [place] [address] * Troponin I high-sensitivity series (baseline, 2hr, 4hr, 6hr) (02/06/2024 6:53 AM RANCH SUPERVISOR) Trop I hs <4 <=17 ng/L Comment: Interpretive Data For further hscTnI resources including the diagnostic algorithm and an aid in interpretation, copy and paste this link: https://bjhlab.testcatalog.org/show/hsTrop-1 Current Interpretive Data last revised 2019. Blood 02/06/2024 6:53 AM RANCH SUPERVISOR 02/06/2024 7:52 AM RANCH SUPERVISOR us Herrera Orosco MD LAB BLOOD ORDERABLES Final Resu lt Performing Organization Address City/[facility] Co de Phone Number [facility] [place] [address] * eGFR (02/05/2024 10:32 PM RANCH SUPERVISOR) eGFR 67 >=60 mL/min/1. 73 m2 Comment: [...] reviewed 2021. Blood 02/05/2024 10:3 2 PM RANCH SUPERVISOR 02/05/2024 11:39 PM RANCH SUPERVISOR us Carin Granados MD LAB BLOOD ORDERABLES Tete l Result Performing Organization Address City/[facility]/ZIP Co de Phone Number [facility] [place] [address] * Differential, auto (02/05/2024 10:32 PM RANCH SUPERVISOR) Neutrophil abs 4.1 1.5 - 6.5 K/cumm [...] on 2017. Blood 02/05/2024 10:3 2 PM RANCH SUPERVISOR 02/05/2024 11:27 PM RANCH SUPERVISOR us Carin Granados MD LAB BLOOD ORDERABLES Tete palomino Result [facility] [place] [address] * (ABNORMAL) CBC with auto differential (02/05/2024 10:32 PM RANCH SUPERVISOR) [facility] WBC 6.1 3.8 - 9.9 K/cumm [...] [facility] Blood 02/05/2024 10:3 2 PM RANCH SUPERVISOR 02/05/2024 11:27 PM RANCH SUPERVISOR Carin Granados MD LAB BLOOD ORDERABLES Tete l Result Performing Organization Address [facility] Co de Phone Number [facility] [place] [address] * Phosphorus (02/05/2024 10:32 PM RANCH SUPERVISOR) [facility] Phosphorus, pl 3.9 2.3 - 4.5 mg/dL Blood 02/05/2024 10:3 2 PM RANCH SUPERVISOR 02/05/2024 11:39 PM RANCH SUPERVISOR Carin Granados MD LAB BLOOD ORDERABLES Tete l Result [facility] [place] [address] * Magnesium (02/05/2024 10:32 PM RANCH SUPERVISOR) [facility] Magnesium 2.5 1.4 - 2.5 mg/dL Blood 02/05/2024 10:3 2 PM RANCH SUPERVISOR 02/05/2024 11:39 PM RANCH SUPERVISOR Carin Granados MD LAB BLOOD ORDERABLES Tete l Result Performing Organization Address [facility] Co de Phone Number [facility] [place] [address] * (ABNORMAL) Hepatic function panel (02/05/2024 10:32 PM RANCH SUPERVISOR) [facility] Bilirubin, total 0.8 0.1 - 1.2 [...] [facility] Blood 02/05/2024 10:3 2 PM RANCH SUPERVISOR 02/05/2024 11:39 PM RANCH SUPERVISOR Carin Granados MD LAB BLOOD ORDERABLES Tete l Result Performing Organization Address [facility] Co de Phone Number [facility] [place] [address] * (ABNORMAL) Basic metabolic panel (02/05/2024 10:32 PM RANCH SUPERVISOR) [facility] Sodium 139 135 - 145 mmol/L [...] [facility] Blood 02/05/2024 10:3 2 PM RANCH SUPERVISOR 02/05/2024 11:39 PM RANCH SUPERVISOR us Carin Granados MD LAB BLOOD ORDERABLES Tete l Result [facility] [place] [address] * POCT glucose (02/05/2024 9:13 PM RANCH SUPERVISOR) Glucose, POC 171 70 - 199 mg/dL Blood 02/05/2024 9:13 PM RANCH SUPERVISOR 02/05/2024 9:13 PM RANCH SUPERVISOR Carin Granados MD LAB POCT ORDERABLES - DEV ICE Final Result [facility] [place] [address] * POCT glucose (02/05/2024 5:38 PM RANCH SUPERVISOR) Glucose, POC 149 70 - 199 mg/dL Blood 02/05/2024 5:38 PM RANCH SUPERVISOR 02/05/2024 5:38 PM RANCH SUPERVISOR Carin Granados MD LAB POCT ORDERABLES - DEV ICE Final Result Performing Organization Address [facility] Co de Phone Number [facility] [place] [address] * Blood culture Blood (02/05/2024 3:25 PM RANCH SUPERVISOR) Report Final Report: No growth Blood 02/05/2024 3:25 PM RANCH SUPERVISOR 02/05/2024 4:30 PM RANCH SUPERVISOR Narrative [facility] - 02/10/2024 7:00 AM RANCH SUPERVISOR Collection->Peripheral 1. Blood cultures are incubated for [...] organism identification may be performed using the [employer] Gram-Positive Blood Culture Assay. This assay detects microbial DNA in positive blood culture broth via hybridization of target DNA to capture oligonucleotides on a microarray. This assay has been cleared by the [place] Food and Drug Administration and its performance characteristics have been verified by the [facility] Microbiology Laboratory. 5. For questions about this culture, contact the Microbiology Laboratory at [phone]. Interpretive data was last revised on 2019. Carin Granados MD LAB MICROBIOLOGY - GENERA L ORDERABLES Final Result Performing Organization Address [facility] Co de Phone Number [facility] [place] [address] * Blood culture Blood (02/05/2024 3:25 PM RANCH SUPERVISOR) Report Final Report: No growth Blood 02/05/2024 3:25 PM RANCH SUPERVISOR 02/05/2024 4:30 PM RANCH SUPERVISOR Narrative [facility] - 02/10/2024 7:00 AM RANCH SUPERVISOR Collection->Peripheral 1. Blood cultures are incubated for [...] organism identification may be performed using the [employer] Gram-Positive Blood Culture Assay. This assay detects microbial DNA in positive blood culture broth via hybridization of target DNA to capture oligonucleotides on a microarray. This assay has been cleared by the [place] Food and Drug Administration and its performance characteristics have been verified by the [facility] Microbiology Laboratory. 5. For questions about this culture, contact the Microbiology Laboratory at [phone]. Interpretive data was last revised on 2019. us Carin Granados MD LAB MICROBIOLOGY - GENERA L ORDERABLES Final Result [facility] [place] [address] * POCT glucose (02/05/2024 2:10 PM RANCH SUPERVISOR) Glucose, POC 170 70 - 199 mg/dL Blood 02/05/2024 2:10 PM RANCH SUPERVISOR 02/05/2024 2:10 PM RANCH SUPERVISOR Carin Granados MD LAB POCT ORDERABLES - DEV ICE Final Result Performing Organization Address City/[facility] Co de Phone Number [facility] [place] [address] * POCT glucose (02/05/2024 9:18 AM RANCH SUPERVISOR) Glucose, POC 88 70 - 199 mg/dL Blood 02/05/2024 9:18 AM RANCH SUPERVISOR 02/05/2024 9:18 AM RANCH SUPERVISOR Carin Granados MD LAB POCT ORDERABLES - DEV ICE Final Result Performing Organization Address [facility] de Phone Number [facility] [place] [address] * Wound Care (02/05/2024 8:16 AM RANCH SUPERVISOR) Narrative Sari Santos DO - 02/05/2024 8:16 AM RANCH SUPERVISOR Andrew Seaman MD 02/05/2024 8:21 AM Wound Care Date/Time: 02/05/2024 8:16 AM Performed by: Andrew Seaman MD Authorized by: Andrew Seaman MD Associated wounds: Wound 12/04/23 Pressure Injury Sacrum Consent: Consent obtained: Verbal Consent given by: Patient Risks, benefits, and alternatives were discussed: yes Risks discussed: Bleeding and infection Alternatives discussed: No treatment [place] protocol: Procedure explained and questions answered to [...] (ABNORMAL) Potassium, whole blood (02/05/2024 8:08 AM RANCH SUPERVISOR) Potassium, bld 5.4(H) 3.3 - 4.9 mmol/L Blood 02/05/2024 8:08 AM RANCH SUPERVISOR 02/05/2024 8:48 AM RANCH SUPERVISOR Ashkan Reyes MD LAB BLOOD ORDERABLES Final Result Performing Organization Address [facility] de Phone Number [facility] [place] [address] * (ABNORMAL) Potassium (02/05/2024 7:45 AM RANCH SUPERVISOR) Potassium, pl 5.2(H) 3.3 - 4.9 mmol/L Blood 02/05/2024 7:45 AM RANCH SUPERVISOR 02/05/2024 8:12 AM RANCH SUPERVISOR Narrative [facility] - 02/05/2024 8:32 AM RANCH SUPERVISOR Provider to discontinue after two normal results. Ashkan Reyes MD LAB BLOOD ORDERABLES Final Result Performing Organization Address [facility] Co de Phone Number [facility] [place] [address] * POCT glucose (02/05/2024 6:00 AM RANCH SUPERVISOR) Glucose, POC 124 70 - 199 mg/dL Blood 02/05/2024 6:00 AM RANCH SUPERVISOR 02/05/2024 6:00 AM RANCH SUPERVISOR Carin Granados MD LAB POCT ORDERABLES - DEV ICE Final Result Performing Organization Address City/[facility] Co de Phone Number [facility] [place] [address] * POCT glucose (02/05/2024 5:04 AM RANCH SUPERVISOR) Glucose, POC 119 70 - 199 mg/dL Blood 02/05/2024 5:04 AM RANCH SUPERVISOR 02/05/2024 5:04 AM RANCH SUPERVISOR Carin Granados MD LAB POCT ORDERABLES - DEV ICE Final Result Performing Organization Address [facility] [place] [address] * POCT glucose (02/05/2024 4:11 AM RANCH SUPERVISOR) Glucose, POC 105 70 - 199 mg/dL Blood 02/05/2024 4:11 AM RANCH SUPERVISOR 02/05/2024 4:11 AM RANCH SUPERVISOR Result [facility] Carin Granados MD LAB POCT ORDERABLES - DEV ICE Final Result Performing Organization Address [facility] [place] [address] * ECG 12 lead (02/05/2024 3:22 AM RANCH SUPERVISOR) Ventricular Rate EKG/Min 101 BPM [facility] Atrial Rate 101 BPM [facility] WI-Interval (MSEC) 148 ms [facility] QRS-Interval (MSEC) 82 ms [facility] QT-Interval (MSEC) 338 ms [facility] QTc 438 ms [facility] P [place] 67 degrees [facility] R [place] 21 degrees [facility] T [place] 48 degrees [facility] Diagnosis Sinus tachycardia Otherwise normal ECG When compared with ECG of 21-JAN-2024 15:37, T wave amplitude has increased in Anterior leads Confirmed by KIRSTIN GIVENS M.D ([id number]) on 02/09/2024 11:54:39 AM [facility] 02/05/2024 3:22 AM RANCH SUPERVISOR 02/09/2024 11:54 AM RANCH SUPERVISOR us Ashkan Reyes MD ECG ORDERABLES Final Resu lt [facility] * eGFR (02/04/2024 9:38 PM RANCH SUPERVISOR) Pathologist [facility] [place] eGFR 66 >=60 mL/min/1. 73 m2 Comment: [...] last reviewed 2021. Blood 02/04/2024 9:38 PM RANCH SUPERVISOR 02/04/2024 11:21 PM RANCH SUPERVISOR us Carin Granados MD LAB BLOOD ORDERABLES Tete l Result [facility] Department [place] [address] * Differential, auto (02/04/2024 9:38 PM RANCH SUPERVISOR) Neutrophil abs 6.2 1.5 - 6.5 K/cumm Imm gran abs 0.1 0.0 - 0.1 K/cumm [facility] Lymphocyte abs 0.9 0.8 - 3.3 K/cumm [facility] Monocyte abs 0.8 0.2 - 0.8 K/cumm [facility] Eosinophil abs 0.4 0.0 - 0.5 K/cumm [facility] Basophil abs 0.0 0.0 - 0.1 K/cumm [facility] Neutrophil pct 74.5 % [facility] Comment: Interpretive Data Percent cell count [...] revised on 2017. Blood 02/04/2024 9:38 PM RANCH SUPERVISOR 02/04/2024 11:22 PM RANCH SUPERVISOR us Carin Granados MD LAB BLOOD ORDERABLES Tete l Result Performing Organization Address City/State/[facility] de Phone Number [facility] [place] [address] * (ABNORMAL) CBC with auto differential (02/04/2024 9:38 PM RANCH SUPERVISOR) Pathologist [facility] [place] WBC 8.3 3.8 - 9.9 K/cumm Hgb [...] [facility] Blood 02/04/2024 9:38 PM RANCH SUPERVISOR 02/04/2024 11:22 PM RANCH SUPERVISOR us Carin Granados MD LAB BLOOD ORDERABLES Tete l Result Performing Organization Address [facility] Co de Phone Number [facility] [place] [address] * Phosphorus (02/04/2024 9:38 PM RANCH SUPERVISOR) Pathologist [facility] [place] Phosphorus, pl 3.4 2.3 - 4.5 mg/dL Blood 02/04/2024 9:38 PM RANCH SUPERVISOR 02/04/2024 11:21 PM RANCH SUPERVISOR us Carin Granados MD LAB BLOOD ORDERABLES Tete l Result Performing Organization Address [facility] Co de Phone Number [facility] [place] [address] * (ABNORMAL) Magnesium (02/04/2024 9:38 PM RANCH SUPERVISOR) Pathologist [facility] [place] Magnesium 2.6(H) 1.4 - 2.5 mg/dL Blood 02/04/2024 9:38 PM RANCH SUPERVISOR 02/04/2024 11:21 PM RANCH SUPERVISOR Carin Granados MD LAB BLOOD ORDERABLES Tete l Result Performing Organization Address [facility] de Phone Number [facility] [place] [address] * (ABNORMAL) Hepatic function panel (02/04/2024 9:38 PM RANCH SUPERVISOR) [facility] Bilirubin, total 0.8 0.1 - 1.2 [...] [facility] Blood 02/04/2024 9:38 PM RANCH SUPERVISOR 02/04/2024 11:21 PM RANCH SUPERVISOR Carin Granados MD LAB BLOOD ORDERABLES Tete l Result Performing Organization Address [facility] Co de Phone Number [facility] Ref[facility] [place], [place] [id number] * (ABNORMAL) Basic metabolic panel (02/04/2024 9:38 PM RANCH SUPERVISOR) [facility] Sodium 137 135 - 145 mmol/L [...] [facility] Blood 02/04/2024 9:38 PM RANCH SUPERVISOR 02/04/2024 11:21 PM RANCH SUPERVISOR us Carin Granados MD LAB BLOOD ORDERABLES Tete l Result Performing Organization Address City/[facility]/ZIP Co de Phone Number [facility] [place] [address] * POCT glucose (02/04/2024 9:04 PM RANCH SUPERVISOR) [facility] Glucose, POC 105 70 - 199 mg/dL Blood 02/04/2024 9:04 PM RANCH SUPERVISOR 02/04/2024 9:04 PM RANCH SUPERVISOR Carin Granados MD LAB POCT ORDERABLES - DEV ICE Final Result Performing Organization Address [facility]/ZIP Co de Phone Number [facility] [place] [address] * POCT glucose (02/04/2024 5:12 PM RANCH SUPERVISOR) Glucose, POC 108 70 - 199 mg/dL Blood 02/04/2024 5:12 PM RANCH SUPERVISOR 02/04/2024 5:12 PM RANCH SUPERVISOR Carin Granados MD LAB POCT ORDERABLES - DEV ICE Final Result Performing Organization Address [facility] de Phone Number [facility] [place] [address] * POCT glucose (02/04/2024 11:56 AM RANCH SUPERVISOR) Glucose, POC 104 70 - 199 mg/dL Blood 02/04/2024 11:5 6 AM RANCH SUPERVISOR 02/04/2024 11:56 AM RANCH SUPERVISOR Carin Granados MD LAB POCT ORDERABLES - DEV ICE Final Result Performing Organization Address [facility] de Phone Number [facility] [place] [address] * (ABNORMAL) Hemoglobin and hematocrit (02/04/2024 11:16 AM RANCH SUPERVISOR) [facility] Hgb 7.8(L) 11.9 - 15.5 g/dL Hct 24.2(L) 35.6 - 45.5 % [facility] Blood 02/04/2024 11:1 6 AM RANCH SUPERVISOR 02/04/2024 12:15 PM RANCH SUPERVISOR Carin Granados MD LAB BLOOD ORDERABLES Tete l Result Performing Organization Address [facility] de Phone Number [facility] [place] [address] * MRI Sacrum Coccyx WO Contrast (02/04/2024 10:53 AM RANCH SUPERVISOR) Anatomical Region Laterality Modality Pelvis N/A Magnetic Resonan ce 02/04/2024 1:34 PM RANCH SUPERVISOR Impressions 02/04/2024 2:11 PM RANCH SUPERVISOR 1. 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 2. 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 Dictated by: Patric Schmitt D.O. The radiology attending physician has personally reviewed this study, and had reviewed and/or edited this written report and agrees with it. Electronically signed by: Jayme Page M.D. Narrative 02/04/2024 2:11 PM RANCH SUPERVISOR EXAMINATION: MRI SACRUM COCCYX WO CONTRAST HISTORY: [...] Result * Transfuse RBC (02/04/2024 7:44 AM RANCH SUPERVISOR) Blood Mariano Eid MD BLOOD TRANSFUSION ORDERABLES F inal Result Performing Organization Address [facility] Co de Phone Number [facility] [place] [address] * POCT glucose (02/04/2024 7:44 AM RANCH SUPERVISOR) [facility] Signature Glucose, POC 107 70 - 199 mg/dL Blood 02/04/2024 7:44 AM RANCH SUPERVISOR 02/04/2024 7:44 AM RANCH SUPERVISOR Carin Granados MD LAB POCT ORDERABLES - DEV ICE Final Result Performing Organization Address [facility] Co de Phone Number [facility] [place] [address] * Type and screen (02/04/2024 1:27 AM RANCH SUPERVISOR) [facility] ABO Rh O Positive Ruiz, indirect Negative [facility] Blood 02/04/2024 1:27 AM RANCH SUPERVISOR 02/04/2024 2:20 AM RANCH SUPERVISOR Narrative [facility] - 02/04/2024 3:56 AM RANCH SUPERVISOR Has the patient had Daratumumab or Isatuximab in the past 6 months?->Unknown Mariano Eid MD LAB BLOOD BANK TEST ORDERABLES Final Result Performing Organization Address [facility] de Phone Number [facility] [place] [address] * Prepare RBC: 1 Units (02/04/2024 12:43 AM RANCH SUPERVISOR) [facility] Product code [id number] Unit Number [id number] I [facility] Product Blood Type OPOS [facility] Dispense Status PRESUMED TRANSFUSED [facility] Blood 02/04/2024 12:4 3 AM RANCH SUPERVISOR 02/04/2024 12:43 AM RANCH SUPERVISOR Narrative [facility] - 02/04/2024 4:01 PM RANCH SUPERVISOR Are special requirements needed? (All products are leukoreduced and CMV- safe)- >No Date required:-[id number] LRRBC # of [id number] Reasons:-Hgb <7 g/dL} Mariano Eid MD BLOOD BANK PRODUCT ORDERABLES Final Result Performing Organization Address [facility] Co de Phone Number [facility] [place] [address] * (ABNORMAL) eGFR (02/03/2024 9:45 PM RANCH SUPERVISOR) [facility] eGFR 58(L) >=60 mL/min/1. 73 m2 [...] last reviewed 2021. Blood 02/03/2024 9:45 PM RANCH SUPERVISOR 02/03/2024 10:44 PM RANCH SUPERVISOR us Meme Santana MD LAB BLOOD ORDERABLES Fin al Result [facility] [place] [address] * Differential, auto (02/03/2024 9:45 PM RANCH SUPERVISOR) Neutrophil abs 4.8 1.5 - 6.5 K/cumm [...] revised on 2017. Blood 02/03/2024 9:45 PM RANCH SUPERVISOR 02/03/2024 10:44 PM RANCH SUPERVISOR us Meme Santana MD LAB BLOOD ORDERABLES Fin al Result [facility] [place] [address] * (ABNORMAL) CBC with auto differential (02/03/2024 9:45 PM RANCH SUPERVISOR) WBC 6.8 3.8 - 9.9 K/cumm Hgb [...] [facility] Blood 02/03/2024 9:45 PM RANCH SUPERVISOR 02/03/2024 10:44 PM RANCH SUPERVISOR Carin Granados MD LAB BLOOD ORDERABLES Tete l Result [facility] [place] [address] * Phosphorus (02/03/2024 9:45 PM RANCH SUPERVISOR) Phosphorus, pl 3.6 2.3 - 4.5 mg/dL Blood 02/03/2024 9:45 PM RANCH SUPERVISOR 02/03/2024 10:44 PM RANCH SUPERVISOR Carin Granados MD LAB BLOOD ORDERABLES Tete l Result Performing Organization Address City/[facility]/ZIP Co de Phone Number [facility] [place] [address] * (ABNORMAL) Magnesium (02/03/2024 9:45 PM RANCH SUPERVISOR) Magnesium 2.9(H) 1.4 - 2.5 mg/dL Blood 02/03/2024 9:45 PM RANCH SUPERVISOR 02/03/2024 10:44 PM RANCH SUPERVISOR Carin Granados MD LAB BLOOD ORDERABLES Tete l Result [facility] [place] [address] * (ABNORMAL) Hepatic function panel (02/03/2024 9:45 PM RANCH SUPERVISOR) [facility] Bilirubin, total 0.6 0.1 - 1.2 mg/dL Bilirubin, direct <0.2 0.1 - 0.3 mg/dL [facility] Comment:Reviewed Protein, pl 6.1(L) 6.5 - 8.5 g/dL [facility] Albumin 2.4(L) 3.5 - 5.0 g/dL [facility] Alk phos 228(H) 40 - 130 Units/L [facility] ALT 16 7 - 45 Units/L [facility] AST 36 10 - 45 Units/L [facility] Blood 02/03/2024 9:45 PM RANCH SUPERVISOR 02/03/2024 10:44 PM RANCH SUPERVISOR us Carin Granados MD LAB BLOOD ORDERABLES Tete l Result [facility] [place] [address] * (ABNORMAL) Basic metabolic panel (02/03/2024 9:45 PM RANCH SUPERVISOR) [facility] Sodium 139 135 - 145 mmol/L [...] [facility] Blood 02/03/2024 9:45 PM RANCH SUPERVISOR 02/03/2024 10:44 PM RANCH SUPERVISOR Carin Granados MD LAB BLOOD ORDERABLES Tete l Result Performing Organization Address City/[facility]/ZIP Co de Phone Number [facility] [place] [address] * POCT glucose (02/03/2024 9:39 PM RANCH SUPERVISOR) Glucose, POC 190 70 - 199 mg/dL Blood 02/03/2024 9:39 PM RANCH SUPERVISOR 02/03/2024 9:39 PM RANCH SUPERVISOR Carin Granados MD LAB POCT ORDERABLES - DEV ICE Final Result Performing Organization Address City/[facility] Co de Phone Number [facility] [place] [address] * POCT glucose (02/03/2024 5:47 PM RANCH SUPERVISOR) Glucose, POC 131 70 - 199 mg/dL Blood 02/03/2024 5:47 PM RANCH SUPERVISOR 02/03/2024 5:47 PM RANCH SUPERVISOR Carin Granados MD LAB POCT ORDERABLES - DEV ICE Final Result Performing Organization Address City/[facility] Co de Phone Number [facility] [place] [address] * POCT glucose (02/03/2024 2:37 PM RANCH SUPERVISOR) Glucose, POC 138 70 - 199 mg/dL Blood 02/03/2024 2:37 PM RANCH SUPERVISOR 02/03/2024 2:37 PM RANCH SUPERVISOR us Carin Granados MD LAB POCT ORDERABLES - DEV ICE Final Result [facility] [place] [address] * CT Abdomen Pelvis W Contrast (02/03/2024 10:03 AM RANCH SUPERVISOR) Anatomical Region Laterality Modality Body N/A Computed Tomogra phy 02/03/2024 10:5 0 AM RANCH SUPERVISOR Impressions 02/03/2024 12:25 PM RANCH SUPERVISOR 1. Improving left upper pole and left [...] Zeke Chris M.D. Narrative 02/03/2024 12:25 PM RANCH SUPERVISOR EXAMINATION: Computed tomography of the abdomen and [...] esult * POCT glucose (02/03/2024 9:24 AM RANCH SUPERVISOR) Glucose, POC 131 70 - 199 mg/dL Blood 02/03/2024 9:24 AM RANCH SUPERVISOR 02/03/2024 9:24 AM RANCH SUPERVISOR us Carin Granados MD LAB POCT ORDERABLES - DEV ICE Final Result Performing Organization Address City/[facility] Co de Phone Number [facility] [place] [address] * eGFR (02/02/2024 10:40 PM RANCH SUPERVISOR) Pathologist [facility] [place] eGFR 75 >=60 mL/min/1. 73 m2 Comment: [...] reviewed 2021. Blood 02/02/2024 10:4 0 PM RANCH SUPERVISOR 02/03/2024 12:36 AM RANCH SUPERVISOR us Meme Santana MD LAB BLOOD ORDERABLES Fin al Result Performing Organization Address City/[facility]/ZIP Co de Phone Number [facility] [place] [address] * Differential, auto (02/02/2024 10:40 PM RANCH SUPERVISOR) Neutrophil abs 5.7 1.5 - 6.5 K/cumm [...] revised on 2017. Lymphocyte pct 14.1 % [facility] Comment: Interpretive Data Percent cell count reference ranges are not reported, since discordance with absolute values may lead to misinterpretation of CBC data. Current Interpretive Data was last revised on 2017. Monocyte pct 10.4 % [facility] Comment: Interpretive Data Percent cell count reference ranges are not reported, since discordance with absolute values may lead to misinterpretation of CBC data. Current Interpretive Data was last revised on 2017. Eosinophil pct 3.9 % [facility] Comment: Interpretive Data [...] on 2017. Blood 02/02/2024 10:4 0 PM RANCH SUPERVISOR 02/03/2024 12:04 AM RANCH SUPERVISOR Meme Santana MD LAB BLOOD ORDERABLES Fin al Result Performing Organization Address [facility] de Phone Number [facility] [place] [address] * (ABNORMAL) CBC with auto differential (02/02/2024 10:40 PM RANCH SUPERVISOR) Pathologist [facility] [place] WBC 8.0 3.8 - 9.9 K/cumm Hgb [...] [facility] Blood 02/02/2024 10:4 0 PM RANCH SUPERVISOR 02/03/2024 12:04 AM RANCH SUPERVISOR us Carin Granados MD LAB BLOOD ORDERABLES Tete palomino Result Performing Organization Address [facility] Co de Phone Number [facility] Department [place] [address] * Phosphorus (02/02/2024 10:40 PM RANCH SUPERVISOR) Pathologist [facility] [place] Phosphorus, pl 2.8 2.3 - 4.5 mg/dL Blood 02/02/2024 10:4 0 PM RANCH SUPERVISOR 02/03/2024 12:36 AM RANCH SUPERVISOR us Carin Granados MD LAB BLOOD ORDERABLES Tete l Result [facility] [place] [address] * (ABNORMAL) Magnesium (02/02/2024 10:40 PM RANCH SUPERVISOR) [facility] Magnesium 2.6(H) 1.4 - 2.5 mg/dL Blood 02/02/2024 10:4 0 PM RANCH SUPERVISOR 02/03/2024 12:36 AM RANCH SUPERVISOR Carin Granados MD LAB BLOOD ORDERABLES Tete l Result Performing Organization Address [facility] Co de Phone Number [facility] [place] [address] * (ABNORMAL) Hepatic function panel (02/02/2024 10:40 PM RANCH SUPERVISOR) [facility] Bilirubin, total 0.7 0.1 - 1.2 mg/dL Bilirubin, direct 0.2 0.1 - 0.3 mg/dL [facility] Protein, pl 6.4(L) 6.5 - 8.5 g/dL [facility] Albumin 2.6(L) 3.5 - 5.0 g/dL [facility] Alk phos 241(H) 40 - 130 Units/L [facility] ALT 13 7 - 45 Units/L [facility] AST 35 10 - 45 Units/L [facility] Blood 02/02/2024 10:4 0 PM RANCH SUPERVISOR 02/03/2024 12:36 AM RANCH SUPERVISOR Carin Granados MD LAB BLOOD ORDERABLES Tete l Result Performing Organization Address City/[facility] Co de Phone Number [facility] [place] [address] * (ABNORMAL) Basic metabolic panel (02/02/2024 10:40 PM RANCH SUPERVISOR) Sodium 138 135 - 145 mmol/L Potassium, [...] [facility] Blood 02/02/2024 10:4 0 PM RANCH SUPERVISOR 02/03/2024 12:36 AM RANCH SUPERVISOR us Carin Granados MD LAB BLOOD ORDERABLES Tete l Result Performing Organization Address City/[facility]/ZIP Co de Phone Number [facility] [place] [address] * POCT glucose (02/02/2024 8:25 PM RANCH SUPERVISOR) Glucose, POC 173 70 - 199 mg/dL Blood 02/02/2024 8:25 PM RANCH SUPERVISOR 02/02/2024 8:25 PM RANCH SUPERVISOR Carin Granados MD LAB POCT ORDERABLES - DEV ICE Final Result Performing Organization Address City/[facility]/ZIP Co de Phone Number [facility] [place] [address] * (ABNORMAL) Hemoglobin and hematocrit (02/02/2024 5:56 PM RANCH SUPERVISOR) Hgb 7.6(L) 11.9 - 15.5 g/dL Hct 23.2(L) 35.6 - 45.5 % [facility] Blood 02/02/2024 5:56 PM RANCH SUPERVISOR 02/02/2024 6:12 PM RANCH SUPERVISOR us Carin Granados MD LAB BLOOD ORDERABLES Tete l Result [facility] [place] [address] * POCT glucose (02/02/2024 4:53 PM RANCH SUPERVISOR) Glucose, POC 172 70 - 199 mg/dL Blood 02/02/2024 4:53 PM RANCH SUPERVISOR 02/02/2024 4:53 PM RANCH SUPERVISOR Carin Granados MD LAB POCT ORDERABLES - DEV ICE Final Result [facility] [place] [address] * Transfuse RBC (02/02/2024 2:55 PM RANCH SUPERVISOR) Blood Carin Granados MD BLOOD TRANSFUSION [place] [address] * POCT glucose (02/02/2024 12:56 PM RANCH SUPERVISOR) Glucose, POC 162 70 - 199 mg/dL Blood 02/02/2024 12:5 6 PM RANCH SUPERVISOR 02/02/2024 12:56 PM RANCH SUPERVISOR Carin Granados MD LAB POCT ORDERABLES - DEV ICE Final Result Performing Organization Address City/[facility] Co de Phone Number [facility] [place] [address] * POCT glucose (02/02/2024 9:48 AM RANCH SUPERVISOR) Glucose, POC 126 70 - 199 mg/dL Blood 02/02/2024 9:48 AM RANCH SUPERVISOR 02/02/2024 9:48 AM RANCH SUPERVISOR Carin Granados MD LAB POCT ORDERABLES - DEV ICE Final Result Performing Organization Address [facility] [place] [address] * Hepatitis panel, acute Blood (01/27/2024 9:00 PM RANCH SUPERVISOR) Pathologist [facility] [place] Hep A IgM Nonreactive Nonreactive Hep B core IgM Nonreactive Nonreactive [facility] Hep C Ab Nonreactive Nonreactive [facility] Comment:Antibodies to HCV no t detected. Does NOT exclude the possibility of recent exposure to HCV. Current interpretive data was last revised on 21 HepBsAg Nonreactive Nonreactive [facility] Blood 01/27/2024 9:00 PM RANCH SUPERVISOR 01/27/2024 9:44 PM RANCH SUPERVISOR Sheldon Duran MD LAB MICROBIOLOGY - GENERA L ORDERABLES Final Result Performing Organization Address [facility] Co de Phone Number [facility] [place] [address] * (ABNORMAL) Lipid panel (01/26/2024 11:33 PM RANCH SUPERVISOR) Pathologist [facility] [place] Cholesterol 137 30 - 199 mg/dL Comment: [...] on 2017. Triglycerides 171(H) <=149 mg/dL [facility] Comment: Interpretive Data Ages < or [...] on 2017. HDL 28(L) >=40 mg/dL [facility] Comment: Interpretive Data Ages < or [...] 2017. LDL, calculated 79 <=129 mg/dL [facility] Comment: Interpretive Data Ages < or [...] revised on 2023. Non-HDL Cholesterol 109 mg/dL [facility] Comment: Interpretive Data Ages < or [...] [facility] Blood 01/26/2024 11:3 3 PM RANCH SUPERVISOR 01/27/2024 12:31 AM RANCH SUPERVISOR Sheldon Duran MD LAB BLOOD ORDERABLES Tete palomino Result [facility] [place] [address] * (ABNORMAL) Hemoglobin A1c (12/01/2023 6:48 PM CDT) Hgb A1C 10.6(H) 4.0 - 5.6 % Estimated Average Glucose 258 mg/dL [facility] Comment: The ADA recommends reporting an estimated Average Glucose (eAG) with all Hemoglobin A1c results using the equation derived from a study of 507 normal and diabetic adults. Minority populations were underrepresented and children were not included. (Diabetes Care 31:1616-6666, 2008). The eAG is not equivalent to a fasting glucose. 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 Coli. Not eligible for review. Multiple wounds that require cultures for discontinuation. Kyler Child 02/02/2024 01/09/2024 01/09/2024 Insurance Advance Directives For more information, please contact: [phone] Documents on File Type Date Recorded Patient Cardroom Plastic Card Grader Expl anation ADVANCE DIRECTIVE 02/17/2024 11:22 AM POW [facility] [employer] ADVANCE DIRECTIVE 02/03/2024 2:17 PM MARLEN R [employer] * Full Code (Latest Code Status on [...] Health Care Agent Yadi Sanchez Sister [facility] Health Care Agent Care Teams Shirrer Relationship Specialty Start Date End Date Barbara Oliva MD [address] [place] [id number] PCP - General Gastroenterology 12/02/23 Miscellaneous, Not In File 01/03/24
--- OUTSIDE RECORDS SUMMARY | 2024-05-04 20:30 | XMS_ITS | Referral Summary ---
Author Organization [facility] Address [address] [place] [address] Care Team Providers Care Pan Shaker Name Role Phone Malika Campbell ALGEBRA TUTOR-ENGROSSER Primary Care Provider [phone] Source Comments [facility],non-owned Affiliates and Associated Physician Practices is amultiple site organization consisting of ambulatory clinics and hospital sitesin [place], [place], [place] and [place]. This disclosure is being madepursuant to the [...] Comments Blood Pressure 126/83 03/24/2022 4:09 PM STEWARDESS SUPERVISOR Pulse 96 03/24/2022 4:09 PM STEWARDESS SUPERVISOR Temperature 35.9 C (96.7 F) 03/24/2022 4:09 PM STEWARDESS SUPERVISOR Respiratory Rate 18 03/24/2022 4:09 PM STEWARDESS SUPERVISOR Oxygen Saturation 100% 03/24/2022 4:09 PM STEWARDESS SUPERVISOR Inhaled Oxygen Concentration - - Weight 84.8 kg (187 lb) 04/09/2022 11:15 AM STEWARDESS SUPERVISOR Height 170.2 cm (5' 7 ) 01/07/2022 [...] Management General On track( 023 11:22 AM STEWARDESS SUPERVISOR) No David Meng, RN Note: Expected end date: Interventions: Take all medications as prescribed Let your doctor know right away about any changes in your medications Make sure to request a refill of your medication at least one week prior to your last dose Procedures Procedure Name Priority Date/Time Associated Diagnosis Comments COMPREHENSIVE METABOLIC PANEL STAT 03/24/2022 4:51 PM STEWARDESS SUPERVISOR HEMOGLOBIN A1C Routine 09/14/2020 3:05 AM CDT HEPATITIS C ANTIBODY Routine 12/12/2019 9:51 AM CDT Cirrhosis of liver without ascites, unspecified hepatic cirrhosis type (HCC) from Last 3 Months or Most Recently Relevant to Health Maintenance Results * (ABNORMAL) COMPREHENSIVE METABOLIC PANEL (03/24/2022 4:51 PM [facility]) BUN 10 7 - 26 mg/dL 03/24/2022 5:42 PM [facility] Creatinine 0.55(L) 0.56 - 0.96 mg/dL 03/24/2022 5:42 PM [facility] Sodium 134(L) 136 - 145 mmol/L 03/24/2022 5:42 PM [facility] Potassium 3.8 3.5 - 4.5 mmol/L 03/24/2022 5:42 PM [facility] Chloride 94(L) 98 - 107 mmol/L 03/24/2022 5:42 PM [facility] CO2 25 22 - 29 mmol/L 03/24/2022 5:42 PM [facility] Glucose 606(HH) 70 - 115 mg/dL 03/24/2022 5:42 PM [facility] Calcium 9.0 8.4 - 10.2 mg/dL 03/24/2022 5:42 PM [facility] Protein Total 7.2 6.0 - 8.3 g/dL 03/24/2022 5:42 PM [facility] Albumin 3.5 3.4 - 5.0 g/dL 03/24/2022 5:42 PM [facility] Bilirubin Total 0.7 0.2 - 1.2 mg/dL 03/24/2022 5:42 PM [facility] Alkaline Phosphatase 127 40 - 150 U/L 03/24/2022 5:42 PM [facility] ALT 19 5 - 55 U/L 03/24/2022 5:42 PM [facility] AST 19 5 - 34 U/L 03/24/2022 5:42 PM [facility] Anion Gap 19(H) 8 - 18 03/24/2022 5:42 PM [facility] BUN/Creatinine Ratio 18 7 - 23 03/24/2022 5:42 PM [facility] Osmolality Calculated 305(H) 270 - 300 mOsm/kg 03/24/2022 5:42 PM [facility] Albumin/Globulin Ratio 0.9(L) 1.1 - 2.3 03/24/2022 5:42 PM [facility] eGFR by CKD-EPI >90 >=90 mL/min/1.7 3 m2 03/24/2022 5:42 PM [facility] Blood BLOOD SPECIMEN / Unknown Venipuncture / Unknown 03/24/2022 4:51 PM STEWARDESS SUPERVISOR 03/24/2022 5:03 PM STEWARDESS SUPERVISOR Deonna Mukherjee PA-C LAB - CHEMISTRY OR DERABLES [facility] [address] [place] [address], [facility] [phone] * (ABNORMAL) HEMOGLOBIN A1C (09/14/2020 3:05 AM CDT) Hemoglobin A1c 7.0(H) 4.2 - 5.6 % 09/14/2020 4:08 AM CDT [facility] Estimated Average Glucose 154 mg/dL 09/14/2020 4:08 AM CDT -[facility] Blood BLOOD SPECIMEN / Unknown Lab Venipuncture / Unknown 09/14/2020 3:05 AM CDT 09/14/2020 3:37 AM CDT Narrative -[facility] - 09/14/2020 4:08 AM CDT The following cutoff levels are recommended by [employer]. A1c > 6.5% : considered [...] Pink MD LAB - CHEMISTRY ORD ERABLES [facility] [address] * HEPATITIS C ANTIBODY (12/12/2019 9:51 AM CDT) Hepatitis C Antibody Non-react abdirahman Non-reac tive 12/12/2019 12:07 PM CDT [facility] Comment:Hepatitis C Antibody screen indicates no [...] CDT 12/12/2019 11:02 AM CDT Abby Jaquez ALGEBRA TUTOR-ENGROSSER LAB - CHEMI STRY ORDERABLES [facility] [address] [place] [address], [facility] [phone] from Last 3 Months or Most Recently Relevant to Health Maintenance Advance Directives * Full Code (Latest Code Status on File) Date Activated Date Inactivated Comments 09/13/2020 4:58 AM 09/14/2020 9:57 AM Care Teams Pan Shaker Relationship Specialty Start Date End Date Malika Campbell, ALGEBRA TUTOR-ENGROSSER [address] [place] [address] PCP - General 04/09/22
[2024-05-04] MEDS: HYDROmorphone HCL INJ (*CRX) 1 MG/ML SYR 0.5 MG IV PUSH (20:41)
[2024-05-04] MEDS: metroNIDAZOLE 500 MG/ISO 100ML 500 MG/100 ML BAG 100 MG IVPB (20:43)
--- NOTE | 2024-05-04 21:29 | ADMGEN ---
This patient, Shruti Velazquez, was admitted to 2 Medical Room 244-. Patient/family oriented to hospital policies and general routines including ID bracelet, bed and alarms, visiting hours, pain management, procedures, bathroom and other care routines, personal items, smoking policy, room service/diet, and visiting hours. Information on how to activate the Rapid Response Team has been discussed. Patient/Family are encouraged to report perceived risks to care and to ask questions if they do not understand what they are told or what they should do.
[2024-05-04 21:37] LABS: Glucose Point of Care 153 mg/dl (65-105)
[2024-05-05] VITALS (7 sets, daily range): BP systolic 119–139; BP diastolic 80–89; PULSE 81–95; RESP 14–18; TEMP 36.2–36.7; O2SAT 100
[2024-05-05] MEDS: hydrOXYzine HCL 25 MG TABLET PO ×2 (00:01→20:36)
[2024-05-05] MEDS: HYDROmorphone HCL INJ (*CRX) 1 MG/ML SYR 0.5 MG IV PUSH ×3 (01:01→19:07)
[2024-05-05] MEDS: CEFEPIME 2 GM/NS 50 ML 2 GM/50 ML BAG IVPB ×2 (05:04→15:38)
[2024-05-05] MEDS: SODIUM CHLORIDE 0.9% IV 1,000 ML 100 ML IV CONT ×2 (05:07→16:56)
[2024-05-05] MEDS: LEVOTHYROXINE SODIUM 50 MCG TABLET PO (06:13)
[2024-05-05] MEDS: metroNIDAZOLE 500 MG/ISO 100ML 500 MG/100 ML BAG 100 MG IVPB ×3 (06:13→20:34)
[2024-05-05 06:27] LABS: Basophils Percent Auto 0.2 % (0.2-1.2); Eosinophils Absolute Auto 0.2 K/mm3 (0-0.3); Eosinophils Percent Auto 3.6 % (0-4.4); Hematocrit 29.7 % (37.0-47.0); Hemoglobin 9.2 g/dL (12.0-15.0); Immature Granulocyte Absolute 0.01 K/mm3 (0.00-0.031); Immature Granulocyte Percent A 0.2 % (0-0.5); Lymphocytes Absolute Auto 1.15 K/mm3 (0.9-3.2); Lymphocytes Percent Auto 23.1 % (18.3-44.2); Mean Corpuscular Hemoglobin 25.8 pg (26-34); Mean Corpuscular Volume 83.2 fl (80-100); Mean Platelet Volume 9.5 fl (7.4-10.4); Monocytes Absolute Auto 0.4 K/mm3 (0.1-0.6); Monocytes Percent Auto 7.8 % (2.6-8.5); Neutrophils Absolute Auto 3.2 K/mm3 (1.3-6.7); Neutrophils Percent Auto 65.1 % (45.5-73.1); Platelet Count Result 139 k/mm3 (150-375); Red Blood Count 3.57 M/mm3 (4.2-5.4); Red Cell Distribution Width 14.7 % (11.5-14.5)
[2024-05-05 06:46] LABS: Anion Gap 8 mmol/L (4-12); Blood Urea Nitrogen 28 mg/dL (7-17); Calcium 8.9 mg/dL (8.4-10.2); Carbon Dioxide 21 mmol/L (22-30); Chloride 111 mmol/L (98-107); Estimated CRCL calculation 74 ml/min; Estimated Glomerular Filt Rate > 60; Glucose 156 mg/dL (65-110); Potassium 4.2 mmol/L (3.4-5.0); Sodium 140 mmol/L (137-145)
[2024-05-05] MEDS: SIMVASTATIN 20 MG TABLET PO (08:23)
[2024-05-05] MEDS: traZODone HCL 50 MG TABLET 100 MG PO (08:23)
[2024-05-05 08:24] LABS: Glucose Point of Care 157 mg/dl (65-105)
[2024-05-05] MEDS: GABAPENTIN 300 MG CAPSULE 600 MG PO ×3 (08:24→16:57)
[2024-05-05] MEDS: PANTOPRAZOLE 40 MG TABLET PO ×2 (08:24→20:36)
[2024-05-05 09:06] LABS: Hemoglobin A1C 5.8 % (<5.7)
--- NOTE | 2024-05-05 09:18 | P.PN_ITS ---
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 - started on Cefepime, Flagyl, and Vancomycin on 05/04 - wound RN consulted - wound cultured, awaiting results. - analgesics and antipyretics p.r.n. - trend WBC - keep elevated and clean (2) Diabetes mellitus: Qualifiers: Diabetes mellitus complication detail: with foot ulcer Diabetes mellitus complication status: with skin complications Diabetes mellitus lobsterman insulin use: with nursing home use Diabetes mellitus type: type 2 Qualified Code(s): E11.621 - Type 2 diabetes mellitus with foot ulcer; L97.509 - Non- pressure chronic ulcer of other part of unspecified foot with unspecified severity; Z79.4 - MCC (current) use of insulin Code(s): E11.9 - Type 2 diabetes mellitus without complications Status: Chronic Assessment and Plan: - hypoglycemia protocol - POC blood glucose ACHS - correct regimen ordered - low dose TIDWM, based off BMI - A1C 8.9% in 2020, --> (3) None to low serum cortisol response with adrenocorticotrophic hormone (ACTH) stimulation test: Code(s): R94.7 - Abnormal results of other endocrine function studies Status: Acute Assessment and Plan: - History of Cirrhosis, RA - monitor vitals and trend labs as necessary - continue with Levothyroxine (4) NSAID long-term use: Code(s): Z79.1 - MCC (current) use of non-steroidal anti-inflammatories (NSAID) Status: Acute Assessment and Plan: - monitor renal function - PPI to reduce risk of GI bleed - alternative pain management Time Spent With Patient Time with patient: Greater than 35 minutes Subjective Date/time seen: 05/05/24 09:18 Interval history: This is a 38 y/o female with medical history of Cirrhosis, RA, Type II diabetes with history of left foot ulcers and toe amputation, esophageal varices, asthma, chronic NSAID use and hypothyroidism, PICC line DVT on blood thinners, that presented to the ER for blistering to the right foot. Patient is unaware of any injury or cause. ED workup showed No leukocytosis, stable hemoglobin 10.9 (previously 9.1 on 04/03/2024), INR 1.4, PT 17.9. Patient is on blood thinner. creatinine 0.91 and GFR >60, glucose 148, lactic 1.1, CRP <0.5. Foot XR, right showed chronic non united avulsion fracture at the lateral base of the right 1st proximal phalanx. Blistering noted to 1st, 2nd, 3rd toe and forefoot. 2nd and 3rd toe noted erythema and edema. Patient was started on Cefepime, Flagyl, and Vanco. Wound cultures obtained. Patient has tolerated this well. patient reports her foot is painful and a blister to her forefoot did open last pm. She denies any fever, chills, N/V/D, or distress. Review of Systems Review of Systems: All systems reviewed & are unremarkable except as noted in HPI and below Exam Const: General: cooperative, comfortable, no acute distress, alert, awake and Physically active HENMT: Head: normal to inspection Eyes: General: appearance normal, both eyes and all related structures Neck: Neck: normal visual inspection, full ROM and no lymphadenopathy Chest: Chest palpation & inspection: normal inspection of the chest and normal palpation of entire chest wall Resp: Effort & Inspection: normal respiratory effort and able to speak in complete sentences Cardio: Jugular venous distension: no JVD Palpation: normal PMI Rate: regular rate Rhythm: regular rhythm Heart sounds: S1 normal heart sound present and S2 normal heart sound present Peripheral pulses: popliteal pulses present on the right 1+ and on the left 1+ GI: Inspection: normal to inspection Skin: Wounds: wounds noted right anterior foot size, drainage, without odor and with surrounding erythema, right great toe without odor, with surrounding erythema and other (erythema and blistering to the lateral and proximal aspect.), right anterior 2nd toe without odor, with surrounding erythema and other (blistering with dark erythema and edema), right anterior 3rd toe without odor, with surrounding erythema and other (blistering with dark erythema and edema) Neuro: General: oriented to person, oriented to place, oriented to time, gait normal and moves all extremities Extrem: Other: right 1st, 2nd, 3rd toe notes blistering, erythema and edema Psych: Appearance: grossly normal Mental Status: mental status grossly normal Speech and movement: Normal speech and movement present Affect: normal affect Attitude: cooperative Thought process: Normal thought process present Thought content: Yes Normal thought content present Insight: Good insight present (Psych) Objective Data Vital Signs Vital Signs: Vital Signs - 24 hr 05/04/24 10:16 05/04/24 13:13 05/04/24 13:14 Temperature 97.9 F Pulse Rate 110 H 112 H Respiratory Rate 16 15 Blood Pressure 131/75 124/94 H Pulse Oximetry 100 1 L 100 Oxygen Delivery Room Air 05/04/24 13:16 05/04/24 13:31 05/04/24 13:46 Temperature Pulse Rate 109 H 111 H 106 H Respiratory Rate 14 20 12 Blood Pressure 123/98 H 132/94 H 125/96 H Pulse Oximetry 100 100 100 Oxygen Delivery 05/04/24 14:01 05/04/24 14:16 05/04/24 14:31 Temperature Pulse Rate 106 H 107 H 111 H Respiratory Rate 25 H 19 17 Blood Pressure 131/94 H 130/100 H 155/104 H Pulse Oximetry 100 100 100 Oxygen Delivery 05/04/24 14:46 05/04/24 14:47 05/04/24 15:50 Temperature 96.9 F L Pulse Rate 115 H 113 H 109 H Respiratory Rate 23 H 25 H 22 H Blood Pressure 138/98 H Pulse Oximetry 100 100 Oxygen Delivery 05/04/24 16:00 05/04/24 16:08 05/04/24 16:15 Temperature Pulse Rate 118 H 109 H 110 H Respiratory Rate 23 H 18 30 H Blood Pressure 106/79 Pulse Oximetry 100 100 Oxygen Delivery 05/04/24 16:33 05/04/24 16:45 05/04/24 17:00 Temperature Pulse Rate 100 101 H Respiratory Rate 20 11 L 25 H Blood Pressure 104/73 Pulse Oximetry 100 100 100 Oxygen Delivery 05/04/24 17:15 05/04/24 17:31 05/04/24 17:45 Temperature Pulse Rate 107 H 107 H 104 H Respiratory Rate 14 17 16 Blood Pressure 123/94 H Pulse Oximetry 100 100 100 Oxygen Delivery 05/04/24 18:00 05/04/24 18:01 05/04/24 18:15 Temperature Pulse Rate 101 H 96 99 Respiratory Rate 23 H 13 19 Blood Pressure 125/77 Pulse Oximetry 96 100 100 Oxygen Delivery 05/04/24 18:30 05/04/24 18:31 05/04/24 18:45 Temperature Pulse Rate 101 H 100 95 Respiratory Rate 19 20 13 Blood Pressure 121/92 H Pulse Oximetry 100 100 100 Oxygen Delivery 05/04/24 19:00 05/04/24 19:01 05/04/24 19:19 Temperature Pulse Rate 96 93 93 Respiratory Rate 17 13 17 Blood Pressure 119/88 Pulse Oximetry 100 100 100 Oxygen Delivery 05/04/24 19:45 05/04/24 20:01 05/04/24 20:32 Temperature Pulse Rate 92 92 96 Respiratory Rate 14 12 19 Blood Pressure 142/99 H 141/84 H Pulse Oximetry 100 100 100 Oxygen Delivery 05/04/24 20:45 05/04/24 21:00 05/04/24 21:39 Temperature 97.5 F L Pulse Rate 93 97 Respiratory Rate 17 16 Blood Pressure 126/86 Pulse Oximetry 100 100 Oxygen Delivery Room Air 05/05/24 00:00 05/05/24 04:00 Temperature 97.9 F 97.1 F L Pulse Rate 92 92 Respiratory Rate 14 16 Blood Pressure 138/87 125/83 Pulse Oximetry 100 100 Oxygen Delivery Intake/Output Intake/Output: Intake & Output 05/02/24 05/03/24 05/04/24 05/05/24 23:59 23:59 23:59 23:59 Intake Total 650 1450 Balance 650 1450 Meds/Results Medications: Active Medications Generic Name Dose Route Start Last Admin Trade Name Freq PRN Reason Stop Dose Admin Acetaminophen 650 mg 05/04/24 16:25 Acetaminophen 325 Mg Tablet PO Q4H PRN Mild Pain (1-3) or Fever Albuterol 2 puff 05/04/24 23:00 Albuterol Sulfate (*Sp) Aerosol 1 Puff INHALATION QIDRT PRN Dyspnea Dextrose 12.5 gm 05/04/24 18:44 Dextrose 50% 25 Gm/50 Ml Syringe IV PUSH PRN PRN Hypoglycemia Protocol Gabapentin 600 mg 05/05/24 09:00 05/05/24 08:24 Gabapentin 300 Mg Capsule PO 600 mg TID DAQUAN Administration Glucagon 1 mg 05/04/24 18:44 Glucagon For Inj 1 Mg Vial IM PRN PRN Hypoglycemia Protocol Glucose 15 gm 05/04/24 18:44 Glucose Oral Gel 15 Gm Of Glucse In 37.5 Gm Tube PO PRN PRN Hypoglycemia Protocol Hydromorphone HCl 0.5 mg 05/04/24 16:25 05/05/24 08:28 Hydromorphone Hcl Inj (*Crx) 1 Mg/Ml Syr IV PUSH 0.5 mg Q4H PRN Administration Pain Rated 7-10 Hydroxyzine HCl 25 mg 05/04/24 23:00 05/05/24 00:01 Hydroxyzine Hcl 25 Mg Tablet PO 25 mg Q8H PRN Administration anxiety Sodium Chloride 1,000 mls @ 100 mls/hr 05/04/24 16:25 05/05/24 05:07 Normal Saline Iv IV CONT 100 mls/hr .Q10H DAQUAN Administration Vancomycin HCl 1,250 mg in 250 mls @ 166.667 mls/hr 05/05/24 11:00 Vancomycin 1,250 Mg/Ns 250 Ml IVPB Q18H DAQUAN Cefepime HCl 2 gm in 50 mls @ 100 mls/hr 05/05/24 04:00 05/05/24 05:04 Maxipime 2 Gm/Ns 50 Ml IVPB 100 mls/hr Q12H DAQUAN Administration Metronidazole 500 mg in 100 mls @ 100 mls/hr 05/04/24 21:00 05/05/24 06:13 Flagyl 500 Mg/Iso Soln 100 Ml IVPB 100 mls/hr Q8H DAQUAN Administration Dextrose 1,000 mls @ 100 mls/hr 05/04/24 18:44 Dextrose 5% 1,000 Ml IVPB PRN PRN Hypoglycemia Protocol Ibuprofen 600 mg 05/04/24 18:43 Ibuprofen 600 Mg Tablet PO Q6H PRN Pain Rated 4-6 Insulin Aspart 2 - 5 units 05/04/24 18:00 05/05/24 08:25 Insulin Aspart (*Bkc) 100 Units/Ml SUB-Q Not Given Q6HR [facility] Protocol Insulin Glargine 8 units 05/05/24 18:00 Insulin Glargine (*Bkc) 100 Units/Ml SUB-Q QPM [facility] Levothyroxine Sodium 50 mcg 05/04/24 06:30 05/05/24 06:13 Levothyroxine Sodium 50 Mcg Tablet PO 50 mcg DAILY@0630 DAQUAN Administration Miscellaneous Information 0 each 05/04/24 00:01 Sertraline Clarify Directions Comments Say Takes One Daily? XX 06/03/24 00:00 CLARIFY [facility] Miscellaneous Information 0 each 05/05/24 00:01 Sevelamer Hcl Nonform Can Pt Bring From Home? XX 06/04/24 00:00 CLARIFY [facility] Non-Formulary Medication 800 mg 05/05/24 09:00 Sevelamer Hcl PO 06/04/24 08:59 DAILY [facility] Ondansetron HCl 4 mg 05/04/24 16:25 Ondansetron Inj 4 Mg/2 Ml Vial IV PUSH Q4H PRN Nausea Pantoprazole Sodium 40 mg 05/05/24 09:00 05/05/24 08:24 Pantoprazole 40 Mg Tablet PO 40 mg Q12HR DAQUAN Administration Sertraline HCl 200 mg 05/05/24 09:00 Sertraline Hcl 50 Mg Tablet PO BID DAQUAN Simvastatin 20 mg 05/05/24 09:00 05/05/24 08:23 Simvastatin 20 Mg Tablet PO 20 mg DAILY DAQUAN Administration Trazodone HCl 100 mg 05/05/24 09:00 05/05/24 08:23 Trazodone Hcl 50 Mg Tablet PO 100 mg DAILY DAQUAN Administration Radiology Results: ITS Impressions Foot X-Ray 05/04/24 14:01 IMPRESSION: 1. 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 Labs Labs: Laboratory Results - last 24 hr 05/04/24 05/04/24 05/04/24 14:08 17:09 19:10 WBC 7.2 RBC 4.15 L Hgb 10.9 L Hct 34.4 L MCV 82.9 MCH 26.3 MCHC 31.7 L RDW 15.0 H Plt Count 183 MPV 9.6 Immature Gran % (Auto) 0.3 Neut % (Auto) 69.4 Lymph % (Auto) 21.0 [place] % (Auto) 6.3 Eos % (Auto) 2.6 Baso % (Auto) 0.4 Lymph # (Auto) 1.51 [place] # (Auto) 0.5 Eos # (Auto) 0.2 Baso # (Auto) 0.0 Abs Immat Gran (auto) 0.02 Absolute Neuts (auto) 5.0 Absolute Nucleated RBC 0.000 Nucleated RBC % 0.0 PT 17.9 H INR 1.4 Sodium 141 Potassium 4.4 Chloride 110 H Carbon Dioxide 20 L Anion Gap 11 BUN 32 H Creatinine 0.91 Estim Creat Clear Calc 73 Estimated GFR > 60 Glucose 148 H POC Capillary Glucose 114 H 207 H Hemoglobin A1c Lactic Acid 1.1 Calcium 9.5 Total Bilirubin 0.7 AST 28 ALT 35 Alkaline Phosphatase 183 H C-Reactive Protein < 0.5 Total Protein 8.0 Albumin 4.2 05/04/24 05/05/24 05/05/24 21:10 05:48 05:51 WBC 5.0 RBC 3.57 L Hgb 9.2 L Hct 29.7 L MCV 83.2 MCH 25.8 L MCHC 31.0 L RDW 14.7 H Plt Count 139 L MPV 9.5 Immature Gran % (Auto) 0.2 Neut % (Auto) 65.1 Lymph % (Auto) 23.1 [place] % (Auto) 7.8 Eos % (Auto) 3.6 Baso % (Auto) 0.2 Lymph # (Auto) 1.15 [place] # (Auto) 0.4 Eos # (Auto) 0.2 Baso # (Auto) 0.0 Abs Immat Gran (auto) 0.01 Absolute Neuts (auto) 3.2 Absolute Nucleated RBC 0.000 Nucleated RBC % 0.0 PT INR Sodium 140 Potassium 4.2 Chloride 111 H Carbon Dioxide 21 L Anion Gap 8 BUN 28 H Creatinine 0.88 Estim Creat Clear Calc 74 Estimated GFR > 60 Glucose 156 H POC Capillary Glucose 153 H Hemoglobin A1c 5.8 H Lactic Acid Calcium 8.9 Total Bilirubin AST ALT Alkaline Phosphatase C-Reactive Protein Total Protein Albumin 05/05/24 08:09 WBC RBC Hgb Hct MCV MCH MCHC RDW Plt Count MPV Immature Gran % (Auto) Neut % (Auto) Lymph % (Auto) [place] % (Auto) Eos % (Auto) Baso % (Auto) Lymph # (Auto) [place] # (Auto) Eos # (Auto) Baso # (Auto) Abs Immat Gran (auto) Absolute Neuts (auto) Absolute Nucleated RBC Nucleated RBC % PT INR Sodium Potassium Chloride Carbon Dioxide Anion Gap BUN Creatinine Estim Creat Clear Calc Estimated GFR Glucose POC Capillary Glucose 157 H Hemoglobin A1c Lactic Acid Calcium Total Bilirubin AST ALT Alkaline Phosphatase C-Reactive Protein Total Protein Albumin
--- NOTE | 2024-05-05 09:50 | P.PNIM_ITS ---
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 - started on Cefepime, Flagyl, and Vancomycin on 05/04 - wound RN consulted - wound culture, pending results. - analgesics and antipyretics p.r.n. - trend WBC -->5.0 (2) Diabetes mellitus: Qualifiers: Diabetes mellitus complication detail: with foot ulcer Diabetes mellitus complication status: with skin complications Diabetes mellitus intermediate manager insulin use: with intermediate manager use Diabetes mellitus type: type 2 Qualified Code(s): E11.621 - Type 2 diabetes mellitus with foot ulcer; L97.509 - Non- pressure chronic ulcer of other part of unspecified foot with unspecified severity; Z79.4 - senior care (current) use of insulin Code(s): E11.9 - Type 2 diabetes mellitus without complications Status: Chronic Assessment and Plan: - hypoglycemia protocol - POC blood glucose ACHS - correct regimen ordered - low dose TIDWM, based off BMI - A1C 8.9% in 2020, ---> 5.8 (3) None to low serum cortisol response with adrenocorticotrophic hormone (ACTH) stimulation test: Code(s): R94.7 - Abnormal results of other endocrine function studies Status: Acute Assessment and Plan: - continue with Levothyroxine po daily - monitor vitals - monitor glucose (4) Cirrhosis: Code(s): K74.60 - Unspecified cirrhosis of liver Status: Acute Assessment and Plan: - avoid hepatotoxic medications - monitor CMP daily Plan Diet: Diabetic GI Prophylaxis: None indicated DVT Prophylaxis: SCDs Lines: Peripheral - Will await culture results, wound consultation. Consider d/c home with outpatient f/u in AM. Time Spent With Patient Time with patient: Greater than 35 minutes Subjective Date/time seen: 05/05/24 09:50 Interval history: This is a 38 y/o F with past medical history of diabetes type 2, RA, cirrhosis, DVT in the LUE r/t PICC placement in 01/2024, hyperlipidemia, and asthma, presented originally to the ER with reports of right toe blistering and pain. patient stated the blistering started while she was laying in bed the night prior to her arrival. No known trauma. In the ER she did admit to being out of her home medications for the last week (DM meds, HTN meds, blood thinner, Synthroid etc.). he patient had a recent admission at [facility] for PNA which required intubation from Nov for 6 weeks and was transferred to [facility]. She was discharged from [facility] in Dec. She has since been transitioned [place] a [place] [facility]. She was discharged from rehab to home last week. Patient also developed a DVT in her left upper extremity secondary to a PICC line in January 2024, reports she was taking Lovenox. ED found no leukocytosis, hemoglobin 10.9 (previously 9.1 on 04/03/2024), INR 1.4, PT 17.9, creatinine 0.91 and GFR >60, glucose 148, lactic 1.1, CRP <0.5. Foot XR, right showed chronic non united avulsion fracture at the lateral base of the right 1st proximal phalanx. Patient was admitted for IV ATB, started on Cefepime, vancomycin, Flagyl. Patient was given multiple doses of pain medication, some relief of her pain. Wound with cultures still pending. Wound nurse was consulted to evaluate the wound. Patient this AM denies any fever, chills, nausea, vomiting or diarrhea, she denies any new or worsening blistery to her right foot. Review of Systems Review of Systems: All systems reviewed & are unremarkable except as noted in HPI and below Constitutional: Constitutional: Reports as per HPI and Reports no additional constitutional complaints Eyes: Eyes: Reports as per HPI and Reports no additional eye complaints ENT: Reports system reviewed and no additional complaints, except as documented Cardiovascular: Cardiovascular: Reports as per HPI and Reports no additional cardiovascular complaints Respiratory: Respiratory: Reports as per HPI and Reports no additional respiratory complaints Gastrointestinal: Gastrointestinal: Reports as per HPI and Reports no add itional gastrointestinal complaints Genitourinary: Genitourinary: Reports no additional female genitourinary complaints Musculoskeletal: Musculoskeletal: Reports as per HPI Integumentary/Breasts: Skin/Breast: Reports system reviewed and no additional complaints, except as docu Neurologic: Reports system reviewed and no additional complaints, except as documented Psychiatric: Psychiatric: Reports no additional psychiatric complaints Endocrine: Endocrine: Reports as per HPI Hematologic/Lymphatic: Hematologic/Lymphatic: Reports as per HPI Allergic/Immunologic: Allergic/Immunologic: Reports no additional allergic/immunologic complaints Exam Const: General: cooperative, healthy appearing and comfortable Nutritional Appearance: average body habitus and well nourished Orientation/consciousness: oriented to person, oriented to place and oriented to time Limitations: no limitations HENMT: Head: normal to inspection Eyes: General: appearance normal, both eyes and all related structures Neck: Neck: normal visual inspection Chest: Chest palpation & inspection: normal inspection of the chest and normal palpation of entire chest wall Resp: Effort & Inspection: normal respiratory effort and able to speak in complete sentences Cardio: Jugular venous distension: no JVD Palpation: normal PMI Rate: regular rate Rhythm: regular rhythm Heart sounds: S1 normal heart sound present and S2 normal heart sound present GI: Inspection: normal to inspection GI Palp: Yes No hepatosplenomegaly present Auscultation: normal bowel sounds Skin: Wounds: wounds noted right anterior foot without odor, open and with surrounding erythema, right great toe without odor, with surrounding erythema and other (blistering), right 2nd toe without odor and with surrounding erythema, right 3rd toe without odor and with surrounding erythema Neuro: General: oriented to person, oriented to place, oriented to time, gait normal, tone normal and moves all extremities Cranial nerves: Yes CN's II-XII intact bilaterally Extrem: General: full ROM and normal exam except as noted Psych: Appearance: grossly normal Mental Status: mental status grossly normal Objective Data Vital Signs Vital Signs: Vital Signs - 24 hr 05/04/24 10:16 05/04/24 13:13 05/04/24 13:14 Temperature 97.9 F Pulse Rate 110 H 112 H Respiratory Rate 16 15 Blood Pressure 131/75 124/94 H Pulse Oximetry 100 1 L 100 Oxygen Delivery Room Air 05/04/24 13:16 05/04/24 13:31 05/04/24 13:46 Temperature Pulse Rate 109 H 111 H 106 H Respiratory Rate 14 20 12 Blood Pressure 123/98 H 132/94 H 125/96 H Pulse Oximetry 100 100 100 Oxygen Delivery 05/04/24 14:01 05/04/24 14:16 05/04/24 14:31 Temperature Pulse Rate 106 H 107 H 111 H Respiratory Rate 25 H 19 17 Blood Pressure 131/94 H 130/100 H 155/104 H Pulse Oximetry 100 100 100 Oxygen Delivery 05/04/24 14:46 05/04/24 14:47 05/04/24 15:50 Temperature 96.9 F L Pulse Rate 115 H 113 H 109 H Respiratory Rate 23 H 25 H 22 H Blood Pressure 138/98 H Pulse Oximetry 100 100 Oxygen Delivery 05/04/24 16:00 05/04/24 16:08 05/04/24 16:15 Temperature Pulse Rate 118 H 109 H 110 H Respiratory Rate 23 H 18 30 H Blood Pressure 106/79 Pulse Oximetry 100 100 Oxygen Delivery 05/04/24 16:33 05/04/24 16:45 05/04/24 17:00 Temperature Pulse Rate 100 101 H Respiratory Rate 20 11 L 25 H Blood Pressure 104/73 Pulse Oximetry 100 100 100 Oxygen Delivery 05/04/24 17:15 05/04/24 17:31 05/04/24 17:45 Temperature Pulse Rate 107 H 107 H 104 H Respiratory Rate 14 17 16 Blood Pressure 123/94 H Pulse Oximetry 100 100 100 Oxygen Delivery 05/04/24 18:00 05/04/24 18:01 05/04/24 18:15 Temperature Pulse Rate 101 H 96 99 Respiratory Rate 23 H 13 19 Blood Pressure 125/77 Pulse Oximetry 96 100 100 Oxygen Delivery 05/04/24 18:30 05/04/24 18:31 05/04/24 18:45 Temperature Pulse Rate 101 H 100 95 Respiratory Rate 19 20 13 Blood Pressure 121/92 H Pulse Oximetry 100 100 100 Oxygen Delivery 05/04/24 19:00 05/04/24 19:01 05/04/24 19:19 Temperature Pulse Rate 96 93 93 Respiratory Rate 17 13 17 Blood Pressure 119/88 Pulse Oximetry 100 100 100 Oxygen Delivery 05/04/24 19:45 05/04/24 20:01 05/04/24 20:32 Temperature Pulse Rate 92 92 96 Respiratory Rate 14 12 19 Blood Pressure 142/99 H 141/84 H Pulse Oximetry 100 100 100 Oxygen Delivery 05/04/24 20:45 05/04/24 21:00 05/04/24 21:39 Temperature 97.5 F L Pulse Rate 93 97 Respiratory Rate 17 16 Blood Pressure 126/86 Pulse Oximetry 100 100 Oxygen Delivery Room Air 05/05/24 00:00 05/05/24 04:00 Temperature 97.9 F 97.1 F L Pulse Rate 92 92 Respiratory Rate 14 16 Blood Pressure 138/87 125/83 Pulse Oximetry 100 100 Oxygen Delivery Intake/Output Intake/Output: Intake & Output 05/02/24 05/03/24 05/04/24 05/05/24 23:59 23:59 23:59 23:59 Intake Total 650 1450 Balance 650 1450 Meds/Results Medications: Active Medications Generic Name Dose Route Start Last Admin Trade Name Freq PRN Reason Stop Dose Admin Acetaminophen 650 mg 05/04/24 16:25 Acetaminophen 325 Mg Tablet PO Q4H PRN Mild Pain (1-3) or Fever Albuterol 2 puff 05/04/24 23:00 Albuterol Sulfate (*Sp) Aerosol 1 Puff INHALATION QIDRT PRN Dyspnea Dextrose 12.5 gm 05/04/24 18:44 Dextrose 50% 25 Gm/50 Ml Syringe IV PUSH PRN PRN Hypoglycemia Protocol Gabapentin 600 mg 05/05/24 09:00 05/05/24 08:24 Gabapentin 300 Mg Capsule PO 600 mg TID DAQUAN Administration Glucagon 1 mg 05/04/24 18:44 Glucagon For Inj 1 Mg Vial IM PRN PRN Hypoglycemia Protocol Glucose 15 gm 05/04/24 18:44 Glucose Oral Gel 15 Gm Of Glucse In 37.5 Gm Tube PO PRN PRN Hypoglycemia Protocol Hydromorphone HCl 0.5 mg 05/04/24 16:25 05/05/24 08:28 Hydromorphone Hcl Inj (*Crx) 1 Mg/Ml Syr IV PUSH 0.5 mg Q4H PRN Administration Pain Rated 7-10 Hydroxyzine HCl 25 mg 05/04/24 23:00 05/05/24 00:01 Hydroxyzine Hcl 25 Mg Tablet PO 25 mg Q8H PRN Administration anxiety Sodium Chloride 1,000 mls @ 100 mls/hr 05/04/24 16:25 05/05/24 05:07 Normal Saline Iv IV CONT 100 mls/hr .Q10H DAQUAN Administration Vancomycin HCl 1,250 mg in 250 mls @ 166.667 mls/hr 05/05/24 11:00 Vancomycin 1,250 Mg/Ns 250 Ml IVPB Q18H DAQUAN Cefepime HCl 2 gm in 50 mls @ 100 mls/hr 05/05/24 04:00 05/05/24 05:04 Maxipime 2 Gm/Ns 50 Ml IVPB 100 mls/hr Q12H DAQUAN Administration Metronidazole 500 mg in 100 mls @ 100 mls/hr 05/04/24 21:00 05/05/24 06:13 Flagyl 500 Mg/Iso Soln 100 Ml IVPB 100 mls/hr Q8H DAQUAN Administration Dextrose 1,000 mls @ 100 mls/hr 05/04/24 18:44 Dextrose 5% 1,000 Ml IVPB PRN PRN Hypoglycemia Protocol Ibuprofen 600 mg 05/04/24 18:43 Ibuprofen 600 Mg Tablet PO Q6H PRN Pain Rated 4-6 Insulin Aspart 2 - 5 units 05/04/24 18:00 05/05/24 08:25 Insulin Aspart (*Bkc) 100 Units/Ml SUB-Q Not Given Q6HR DAQUAN Protocol Insulin Glargine 8 units 05/05/24 18:00 Insulin Glargine (*Bkc) 100 Units/Ml SUB-Q QPM DAQUAN Levothyroxine Sodium 50 mcg 05/04/24 06:30 05/05/24 06:13 Levothyroxine Sodium 50 Mcg Tablet PO 50 mcg DAILY@0630 DAQUAN Administration Miscellaneous Information 0 each 05/04/24 00:01 Sertraline Clarify Directions Comments Say Takes One Daily? XX 06/03/24 00:00 CLARIFY DAQUAN Miscellaneous Information 0 each 05/05/24 00:01 Sevelamer Hcl Nonform Can Pt Bring From Home? XX 06/04/24 00:00 CLARIFY DAQUAN Non-Formulary Medication 800 mg 05/05/24 09:00 Sevelamer Hcl PO 06/04/24 08:59 DAILY DAQUAN Ondansetron HCl 4 mg 05/04/24 16:25 Ondansetron Inj 4 Mg/2 Ml Vial IV PUSH Q4H PRN Nausea Pantoprazole Sodium 40 mg 05/05/24 09:00 05/05/24 08:24 Pantoprazole 40 Mg Tablet PO 40 mg Q12HR DAQUAN Administration Sertraline HCl 200 mg 05/05/24 09:00 Sertraline Hcl 50 Mg Tablet PO BID DAQUAN Simvastatin 20 mg 05/05/24 09:00 05/05/24 08:23 Simvastatin 20 Mg Tablet PO 20 mg DAILY DAQUAN Administration Trazodone HCl 100 mg 05/05/24 09:00 05/05/24 08:23 Trazodone Hcl 50 Mg Tablet PO 100 mg DAILY DAQUAN Administration Radiology Results: ITS Impressions Foot X-Ray 05/04/24 14:01 IMPRESSION: 1. 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 Labs Labs: Laboratory Results - last 24 hr 05/04/24 05/04/24 05/04/24 14:08 17:09 19:10 WBC 7.2 RBC 4.15 L Hgb 10.9 L Hct 34.4 L MCV 82.9 MCH 26.3 MCHC 31.7 L RDW 15.0 H Plt Count 183 MPV 9.6 Immature Gran % (Auto) 0.3 Neut % (Auto) 69.4 Lymph % (Auto) 21.0 [place] % (Auto) 6.3 Eos % (Auto) 2.6 Baso % (Auto) 0.4 Lymph # (Auto) 1.51 [place] # (Auto) 0.5 Eos # (Auto) 0.2 Baso # (Auto) 0.0 Abs Immat Gran (auto) 0.02 Absolute Neuts (auto) 5.0 Absolute Nucleated RBC 0.000 Nucleated RBC % 0.0 PT 17.9 H INR 1.4 Sodium 141 Potassium 4.4 Chloride 110 H Carbon Dioxide 20 L Anion Gap 11 BUN 32 H Creatinine 0.91 Estim Creat Clear Calc 73 Estimated GFR > 60 Glucose 148 H POC Capillary Glucose 114 H 207 H Hemoglobin A1c Lactic Acid 1.1 Calcium 9.5 Total Bilirubin 0.7 AST 28 ALT 35 Alkaline Phosphatase 183 H C-Reactive Protein < 0.5 Total Protein 8.0 Albumin 4.2 05/04/24 05/05/24 05/05/24 21:10 05:48 05:51 WBC 5.0 RBC 3.57 L Hgb 9.2 L Hct 29.7 L MCV 83.2 MCH 25.8 L MCHC 31.0 L RDW 14.7 H Plt Count 139 L MPV 9.5 Immature Gran % (Auto) 0.2 Neut % (Auto) 65.1 Lymph % (Auto) 23.1 [place] % (Auto) 7.8 Eos % (Auto) 3.6 Baso % (Auto) 0.2 Lymph # (Auto) 1.15 [place] # (Auto) 0.4 Eos # (Auto) 0.2 Baso # (Auto) 0.0 Abs Immat Gran (auto) 0.01 Absolute Neuts (auto) 3.2 Absolute Nucleated RBC 0.000 Nucleated RBC % 0.0 PT INR Sodium 140 Potassium 4.2 Chloride 111 H Carbon Dioxide 21 L Anion Gap 8 BUN 28 H Creatinine 0.88 Estim Creat Clear Calc 74 Estimated GFR > 60 Glucose 156 H POC Capillary Glucose 153 H Hemoglobin A1c 5.8 H Lactic Acid Calcium 8.9 Total Bilirubin AST ALT Alkaline Phosphatase C-Reactive Protein Total Protein Albumin 05/05/24 08:09 WBC RBC Hgb Hct MCV MCH MCHC RDW Plt Count MPV Immature Gran % (Auto) Neut % (Auto) Lymph % (Auto) [place] % (Auto) Eos % (Auto) Baso % (Auto) Lymph # (Auto) [place] # (Auto) Eos # (Auto) Baso # (Auto) Abs Immat Gran (auto) Absolute Neuts (auto) Absolute Nucleated RBC Nucleated RBC % PT INR Sodium Potassium Chloride Carbon Dioxide Anion Gap BUN Creatinine Estim Creat Clear Calc Estimated GFR Glucose POC Capillary Glucose 157 H Hemoglobin A1c Lactic Acid Calcium Total Bilirubin AST ALT Alkaline Phosphatase C-Reactive Protein Total Protein Albumin Hospitalist MIPS Advance Care Plan I have confirmed that the patient's Advanced Care Plan is present, code status is documented, or surrogate decision maker is listed in patient medical record.: Yes Medication Reconciliation I have utilized all available resources to obtain, update and review the patients current medications (includes all prescriptions, OTC, herbals, cannabis, and nutritional supplements).: Yes
[2024-05-05] MEDS: VANCOMYCIN 1,250 MG/NS 250 ML 1,250 MG/250 ML BAG 166.67 MG IVPB (10:38)
[2024-05-05 12:15] LABS: Glucose Point of Care 121 mg/dl (65-105)
[2024-05-05] MEDS: SEVELAMER CARBONATE 800 MG TABLET PO (14:57)
[2024-05-05] MEDS: SERTRALINE HCL 50 MG TABLET 100 MG PO (15:51)
[2024-05-05 17:00] LABS: Glucose Point of Care 153 mg/dl (65-105)
[2024-05-05] MEDS: INSULIN GLARGINE (*BKC) 100 UNITS/ML 8 UNITS SUB-Q (17:40)
[2024-05-05] MEDS: IBUPROFEN 600 MG TABLET PO (20:36)
[2024-05-05 21:22] LABS: Glucose Point of Care 221 mg/dl (65-105)
[2024-05-06] MEDS: CEFEPIME 2 GM/NS 50 ML 2 GM/50 ML BAG IVPB (03:35)
[2024-05-06 04:04] LABS: Basophils Percent Auto 0.4 % (0.2-1.2); Eosinophils Absolute Auto 0.2 K/mm3 (0-0.3); Eosinophils Percent Auto 3.1 % (0-4.4); Hematocrit 28.9 % (37.0-47.0); Hemoglobin 9.2 g/dL (12.0-15.0); Immature Granulocyte Absolute 0.01 K/mm3 (0.00-0.031); Immature Granulocyte Percent A 0.2 % (0-0.5); Lymphocytes Absolute Auto 1.05 K/mm3 (0.9-3.2); Lymphocytes Percent Auto 21.5 % (18.3-44.2); Mean Corpuscular HGB Conc 31.8 g/dl (32-36); Mean Corpuscular Hemoglobin 26.7 pg (26-34); Mean Corpuscular Volume 83.8 fl (80-100); Mean Platelet Volume 9.2 fl (7.4-10.4); Monocytes Absolute Auto 0.4 K/mm3 (0.1-0.6); Monocytes Percent Auto 8.2 % (2.6-8.5); Neutrophils Absolute Auto 3.3 K/mm3 (1.3-6.7); Neutrophils Percent Auto 66.6 % (45.5-73.1); Platelet Count Result 137 k/mm3 (150-375); Red Blood Count 3.45 M/mm3 (4.2-5.4); Red Cell Distribution Width 14.9 % (11.5-14.5); White Blood Count 4.9 K/mm3 (4.5-10.0)
[2024-05-06] MEDS: metroNIDAZOLE 500 MG/ISO 100ML 500 MG/100 ML BAG 100 MG IVPB (04:09)
[2024-05-06 04:14] LABS: Alanine Aminotransferase 26 U/L (6-35); Albumin Level 3.2 g/dL (3.5-5.1); Alkaline Phosphatase 138 U/L (38-126); Anion Gap 9 mmol/L (4-12); Aspartate Amino Transferase 27 U/L (14-36); Bilirubin,Total 0.6 mg/dL (0.2-1.3); Blood Urea Nitrogen 23 mg/dL (7-17); Calcium 8.7 mg/dL (8.4-10.2); Carbon Dioxide 18 mmol/L (22-30); Chloride 113 mmol/L (98-107); Estimated CRCL calculation 67 ml/min; Estimated Glomerular Filt Rate > 60; Glucose 137 mg/dL (65-110); Potassium 4.3 mmol/L (3.4-5.0); Sodium 140 mmol/L (137-145)
[2024-05-06 04:23] LABS: Vancomycin Trough 16.3 ug/mL (10.0-20.0)
[2024-05-06] MEDS: VANCOMYCIN 1,250 MG/NS 250 ML 1,250 MG/250 ML BAG 166.67 MG IVPB (04:59)
[2024-05-06] MEDS: LEVOTHYROXINE SODIUM 50 MCG TABLET PO (05:34)
[2024-05-06] MEDS: SODIUM CHLORIDE 0.9% IV 1,000 ML 100 ML IV CONT (05:38)
[2024-05-06 05:43] LABS: Glucose Point of Care 134 mg/dl (65-105)
[2024-05-06 05:51] VITALS: BP 138/80; PULSE 89; RESP 16; TEMP 36.8; O2SAT 100
[2024-05-06 08:23] LABS: Glucose Point of Care 127 mg/dl (65-105)
--- NOTE | 2024-05-06 08:38 | P.DS_ITS ---
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 - started on Cefepime, Flagyl, and Vancomycin on 05/04 will transition to oral Cipro and Flagyl outpatient. - wound RN consulted - has been to Podiatry in past, would like to return. Has appt with PCP tomorrow at 10 am. - analgesics and antipyretics p.r.n. - trend WBC -->5.0-->4.9 (2) Diabetes mellitus: Qualifiers: Diabetes mellitus complication detail: with foot ulcer Diabetes mellitus complication status: with skin complications Diabetes mellitus extermination supervisor insulin use: with extermination supervisor use Diabetes mellitus type: type 2 Qualified Code(s): E11.621 - Type 2 diabetes mellitus with foot ulcer; L97.509 - Non- pressure chronic ulcer of other part of unspecified foot with unspecified severity; Z79.4 - [facility] (current) use of insulin Code(s): E11.9 - Type 2 diabetes mellitus without complications Status: Chronic Assessment and Plan: - hypoglycemia protocol - POC blood glucose ACHS - correct regimen ordered - low dose TIDWM, based off BMI - A1C 8.9% in 2020, ---> 5.8 (3) None to low serum cortisol response with adrenocorticotrophic hormone (ACTH) stimulation test: Code(s): R94.7 - Abnormal results of other endocrine function studies Status: Acute Assessment and Plan: - continue with Levothyroxine po daily - monitor vitals - monitor glucose (4) Cirrhosis: Code(s): K74.60 - Unspecified cirrhosis of liver Status: Acute Assessment and Plan: - avoid hepatotoxic medications - monitored CMP daily - at baseline DS: Summary Hospital Course Reason for hospitalization: right foot blistering. Hospital Course: This is a 38 y/o F with past medical history of diabetes type 2, RA, cirrhosis, DVT in the LUE r/t PICC placement in 01/2024, hyperlipidemia, and asthma, presented originally to the ER with reports of right toe blistering and pain. patient stated the blistering started while she was laying in bed the night prior to her arrival. No known trauma. In the ER she did admit to being out of her home medications for the last week (DM meds, HTN meds, blood thinner, Synthroid etc.). he patient had a recent admission at [facility] for PNA which required intubation from Nov for 6 weeks and was transferred to [facility]. She was discharged from [facility] in Dec. She has since been transitioned to a [facility] for [facility]hab. She was discharged from rehab to home last week. Patient also developed a DVT in her left upper extremity secondary to a PICC line in January 2024, reports she was taking Lovenox. ED found no leukocytosis, hemoglobin 10.9 (previously 9.1 on 04/03/2024), INR 1.4, PT 17.9, creatinine 0.91 and GFR >60, glucose 148, lactic 1.1, CRP <0.5. Foot XR, right showed chronic non united avulsion fracture at the lateral base of the right 1st proximal phalanx. Patient was admitted for IV ATB, started on Cefepime, vancomycin, Flagyl. Patient was given multiple doses of pain medication, some relief of her pain. Wound nurse was consulted to evaluate the wound. Patient did not allow staff to culture wounds. Patient this AM denies any fever, chills, nausea, vomiting or diarrhea, she denies any new or worsening blistery to her right foot. Patient reports she removed the dressing from her right foot to allow for air flow on the toes, it feels better to her today. patient reported she has a follow-up appointment him tomorrow with her PCP. She is preferring to be discharged she wants the family. She reports that she has been to the doctor prior to the past she has had left amputations of toes prior. She would prefer to have referral back to see them. Patient denies any other distress or concerns, she denies chest pain shortness breast, diarrhea. She has a nausea or vomiting she is able to eat and ambulate without any concern. Patient's labs are back at baseline. With a normal white count, hemoglobin hematocrit at baseline, function is within her normal limits, A1c was 5.8. Discussed this in great detail with the patient, she is agreeable to be discharged home, she will continue Cipro 500 mg b.i.d. for the next 7 days, to continue Flagyl 500 b.i.d. for the next 7 days, she will need to continue outpatient antibiotics as her PCP and with Podiatry see fit. Instructed her not to drink any alcohol with her Flagyl for 7 days post completion of therapy. Answered questions to her satisfaction, she is agreeable to this plan. Educated her to return to emergency department the recent symptoms Status at Discharge Cognitive/behavioral status at discharge: normal. Functional status at discharge: independent ambulation Overall status at discharge: patient is back to baseline Time Spent with Patient Time attestation: Total time spent providing and/or coordinating discharge services: Time spent: Greater than 30 minutes (60 minutes) Exam Const: General: cooperative, comfortable, no acute distress, alert, awake and Physically active HENMT: Head: normal to inspection and normocephalic Eyes: General: appearance normal, both eyes and all related structures Visual Bauer: normal visual bauer by confrontation Neck: Neck: normal visual inspection, full ROM and no lymphadenopathy Chest: Chest palpation & inspection: normal inspection of the chest Resp: Effort & Inspection: normal respiratory effort Auscultation: clear to auscultation bilaterally Cardio: Jugular venous distension: no JVD Palpation: normal PMI Rate: regular rate Rhythm: regular rhythm Heart sounds: S1 normal heart sound present and S2 normal heart sound present Peripheral pulses: Peripheral pulses 2+ throughout GI: Inspection: normal to inspection GI Palp: Yes Soft to palpation and Yes Hepatosplenomegaly present Auscultation: normal bowel sounds Skin: General skin exam: normal color Wounds: wounds noted right anterior great toe without odor and with surrounding erythema, right anterior 2nd toe without odor and with surrounding erythema, right anterior 3rd toe without odor and with surrounding erythema Neuro: General: oriented to person, oriented to place, oriented to time, patient oriented x3, tone normal and moves all extremities Extrem: General: full ROM, capillary refill normal and normal exam except as noted Psych: Appearance: grossly normal Mental Status: mental status grossly normal Speech and movement: Normal speech and movement present Affect: normal affect Attitude: cooperative Thought process: Normal thought process present Thought content: Yes Normal thought content present DS: Data Data Completed and Pending Labs on day of discharge: Labs from last 24 hours 05/06/24 05/06/24 05/06/24 08:16 05:13 03:59 WBC 4.9 RBC 3.45 L Hgb 9.2 L Hct 28.9 L MCV 83.8 MCH 26.7 MCHC 31.8 L RDW 14.9 H Plt Count 137 L MPV 9.2 Immature Gran % (Auto) 0.2 Neut % (Auto) 66.6 Lymph % (Auto) 21.5 Rankin % (Auto) 8.2 Eos % (Auto) 3.1 Baso % (Auto) 0.4 Lymph # (Auto) 1.05 Rankin # (Auto) 0.4 Eos # (Auto) 0.2 Baso # (Auto) 0.0 Abs Immat Gran (auto) 0.01 Absolute Neuts (auto) 3.3 Absolute Nucleated RBC 0.000 Nucleated RBC % 0.0 Sodium 140 Potassium 4.3 Chloride 113 H Carbon Dioxide 18 L Anion Gap 9 BUN 23 H Creatinine 0.98 Estim Creat Clear Calc 67 Estimated GFR > 60 Glucose 137 H POC Capillary Glucose 127 H 134 H Hemoglobin A1c Calcium 8.7 Total Bilirubin 0.6 AST 27 ALT 26 Alkaline Phosphatase 138 H Total Protein 6.0 L Albumin 3.2 L Vancomycin Trough 16.3 05/05/24 05/05/24 05/05/24 20:52 16:50 12:02 WBC RBC Hgb Hct MCV MCH MCHC RDW Plt Count MPV Immature Gran % (Auto) Neut % (Auto) Lymph % (Auto) Rankin % (Auto) Eos % (Auto) Baso % (Auto) Lymph # (Auto) Rankin # (Auto) Eos # (Auto) Baso # (Auto) Abs Immat Gran (auto) Absolute Neuts (auto) Absolute Nucleated RBC Nucleated RBC % Sodium Potassium Chloride Carbon Dioxide Anion Gap BUN Creatinine Estim Creat Clear Calc Estimated GFR Glucose POC Capillary Glucose 221 H 153 H 121 H Hemoglobin A1c Calcium Total Bilirubin AST ALT Alkaline Phosphatase Total Protein Albumin Vancomycin Trough 05/05/24 05:48 WBC RBC Hgb Hct MCV MCH MCHC RDW Plt Count MPV Immature Gran % (Auto) Neut % (Auto) Lymph % (Auto) Rankin % (Auto) Eos % (Auto) Baso % (Auto) Lymph # (Auto) Rankin # (Auto) Eos # (Auto) Baso # (Auto) Abs Immat Gran (auto) Absolute Neuts (auto) Absolute Nucleated RBC Nucleated RBC % Sodium Potassium Chloride Carbon Dioxide Anion Gap BUN Creatinine Estim Creat Clear Calc Estimated GFR Glucose POC Capillary Glucose Hemoglobin A1c 5.8 H Calcium Total Bilirubin AST ALT Alkaline Phosphatase Total Protein Albumin Vancomycin Trough Preliminary micro results at discharge 05/04/24 14:19 Blood Culture - Preliminary Blood 05/04/24 14:08 Blood Culture - Preliminary Blood Imaging Radiologist's impression: EXAMINATION: XR foot RT min 3V DATE: 05/04/2024 13:51 INDICATION: Right foot osteomyelitis TECHNIQUE: Dorsoplantar, two oblique and lateral views of the right foot were obtained. COMPARISON: None. FINDINGS: Diffuse osteopenia. 3 mm distraction of a chronic nonunited avulsion fracture corticated margins at the lateral base of the first proximal phalanx. Alignment is otherwise normal. No acute fracture. Mild polyarticular osteoarthritis at multiple joints in the mid and forefoot. No cortical erosions or periosteal reaction to suggest osteomyelitis. Small Achilles and plantar calcaneal spurs. Soft tissues are unremarkable. IMPRESSION: 1. 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 Discharge Plan Discharge Attending physician on discharge: Nicky Mcdonough Discharging Clinician: Nicky Mcdonough Anticipated Discharge Date/Time: 05/06/24 08:38 Patient Disposition: Home, Self-Care Activity: may shower and other - see discharge instructions Diet: heart healthy and diabetic Discharge Instructions: Do not get dressing to right foot wet. Attend appt with PCP tomorrow at 10 am as scheduled. Follow up with wound care as instructed. Call Tuesday for appt. Call Loan Documentation Specialist for appt. Continue home medications as instructed, Antibiotic to continue until completed. No alcohol while taking Flagyl,and for 7 days post completing Flagyl therapy. Return to ER For any worriesome signs or symptoms. Patient Instructions: Antibiotic Form Patient Language: Scottish Stand Alone Forms: General Discharge Information Follow-up/Referrals: Babita Medina DPM [Physician] - (call for appointment on Tuesday) Pj,Barbara Boyd MD [Primary Care Provider] - Discharge Medications: New ciprofloxacin HCl [Cipro] 500 mg tablet 500 mg PO Q12H 7 Days Qty: 14 0RF metronidazole 500 mg tablet 500 mg PO Q12H 7 Days Qty: 14 0RF Continued trazodone 100 mg tablet 100 mg PO DAILY Januvia 50 mg tablet 50 mg PO DAILY omeprazole 40 mg capsule,delayed release(DR/EC) 40 mg PO DAILY insulin glargine [Basaglar KwikPen U-100 Insulin] 100 unit/mL (3 mL) insulin pen 8 unit SUBCUT QPM sertraline 100 mg Tablet 100 mg PO DAILY Patient Comments: TAKES DAILY ONLY simvastatin 20 mg Tablet 20 mg PO DAILY albuterol sulfate 90 mcg/actuation Hfa Aerosol Inhaler 2 puff INHALATION QID PRN (Reason: Dyspnea) gabapentin 300 mg capsule 600 mg PO TID 5 Days Qty: 30 0RF Patient Comments: TAKE 300MG DAILY AM hydroxyzine HCl 25 mg tablet 25 mg PO Q8H PRN (Reason: anxiety) Rx Instructions: ANXIETY levothyroxine 50 mcg tablet 50 mcg PO .YOLANDE sevelamer HCl 800 mg tablet 800 mg PO DAILY Date of admission: 05/04/24 16:25 Primary Care Provider: PjBarbara Admitting Provider: Jackie Scott Attending physician on admission: Jackie Scott Condition: Stable Hospitalist MIPS Heart Failure (Exclusion) Patient has history of Heart Transplant or Left Ventricular Assistive Device?: No IF YES, STOP HERE Heart Failure (Qualifier) Patient has current or prior documentation of LVEF less than or equal to 40%, or mod/servere depressed LVSF?: No IF NO, STOP HERE
[2024-05-06] MEDS: HYDROmorphone HCL INJ (*CRX) 1 MG/ML SYR 0.5 MG IV PUSH (09:07)
[2024-05-06] MEDS: GABAPENTIN 300 MG CAPSULE 600 MG PO (09:10)
[2024-05-06] MEDS: SEVELAMER CARBONATE 800 MG TABLET PO (09:10)
[2024-05-06] MEDS: traZODone HCL 50 MG TABLET 100 MG PO (09:10)
[2024-05-06] MEDS: PANTOPRAZOLE 40 MG TABLET PO (09:10)
[2024-05-06] MEDS: SIMVASTATIN 20 MG TABLET PO (09:10)
[2024-05-06] MEDS: SERTRALINE HCL 50 MG TABLET 100 MG PO (09:10)
== END 2024-05-06 11:55 | disposition home or self-care (01) ==
LOC: ANHED 16:57 → ANH2MED 20:27
PROVIDERS: Nurse Practitioner Family; Admitting Provider Hospitalist; Emergency Provider Family Medicine; PCP Internal Medicine Gastroenterology; Visit Provider Hospitalist
DX: E11.628 Type 2 diabetes mellitus with other skin complications (principal); L08.9 Local infection of the skin and subcutaneous tissue, unspecified; E11.621 Type 2 diabetes mellitus with foot ulcer; L97.509 Non-pressure chronic ulcer of other part of unspecified foot with unspecified severity; R94.7 Abnormal results of other endocrine function studies; K74.60 Unspecified cirrhosis of liver; M06.9 Rheumatoid arthritis, unspecified; J45.909 Unspecified asthma, uncomplicated; E78.5 Hyperlipidemia, unspecified; Z87.891 Personal history of nicotine dependence; Z79.51 Long term (current) use of inhaled steroids; Z79.4 Long term (current) use of insulin; Z79.899 Other long term (current) drug therapy; Z86.718 Personal history of other venous thrombosis and embolism
CPT/HCPCS: 36415; 73630; 80048; 80053; 80202; 82948; 83036; 83605; 85025; 85610; 86140; 87040; 87070; 87075; 87205; 96361; 96365; 96366; 96367; 96375; 96376; 99285; A9270; G0378; G0379; J0692; J1171; J1815; J1836; J3010; J3370; J7030